=== PATIENT | male | born 1945 | race Caucasian/White ===

== ENCOUNTER → 2017-07-14 | Outpatient (CLI) | payer OTHER, BC ==
[~2017-07-14] MED LIST: ACET-1311 PO; ALBUAER INH; ALPR-411 PO; AMIO200T4 PO; ASPI81TA28 PO; ATOR-24 PO; CEPH500C2 PO; CRG3125 PO; CYAN100T PO; FAMO1TAB47 PO; FLUT1INH7 PO; GABA-112 PO; IPRA0.03; LCHC12280 TOP; LYR50 PO; MIDO5TAB PO; NTRSLP4 SL; PANT40TA PO; PARO1TAB27 PO; PHS667 PO; POLY1POW2 PO; PRLSR20 PO; PRMT25 PO; SACC250C PO; SPRIN/30 INH; SULF800T23 TOP; SYMIN160 INH; TEMA30CA4 PO; TRAM-10 PO; TRAZ100T29 PO
--- NOTE | 2017-07-14 12:56 | DIAGNOSTIC IMAGING REPORT ---
LEFT FOOT MIN 3 VIEWS ROUTINE CLINICAL HISTORY: 72 years-old Male presenting with NON HEALING WOUNDS. TECHNIQUE: Frontal, oblique, and lateral views of the left foot were obtained. COMPARISON: None. FINDINGS: Osteopenia, which limits evaluation for nondisplaced fracture in osseous erosion. No acute fracture or malalignment. No gross evidence of cortical destruction or periosteal reaction. Prominent bone spur at the inferior calcaneus. Atherosclerosis. No subcutaneous emphysema is radiographically apparent. IMPRESSION: No radiographic evidence of osteomyelitis. If there is continuing clinical concern, noncontrast MR of the foot is recommended. Electronically signed by: Mingo Rahman M.D. 07/14/2017 12:55 PM Dictated Date/Time: 07/14/2017 12:53 PM
== END | disposition home or self-care (01) ==
LOC: C.RAD 12:11
PROVIDERS: ATTEND Emergency Medicine
DX: S91.105A Unspecified open wound of left lesser toe(s) without damage to nail, initial encounter (principal); X58.XXXA Exposure to other specified factors, initial encounter

== ENCOUNTER 2017-07-30 15:28 | Inpatient (IN) | payer OTHER, BC ==
[~2017-07-30] VITALS: Ht 188 cm; Wt 84.9 kg
[~2017-07-30 15:28] MED LIST changes: -CRG3125 PO; -FLUT1INH7 PO; -IPRA0.03; -LCHC12280 TOP; -LYR50 PO; -MIDO5TAB PO; -NTRSLP4 SL; -PHS667 PO; -PRLSR20 PO; -SACC250C PO; -SULF800T23 TOP
[2017-07-30] MEDS ORDERED: PHS667 PO (16:17)
[2017-07-30] MEDS ORDERED: SULF800T23 TOP (16:17)
[2017-07-30] MEDS ORDERED: MIDO5TAB PO (16:17)
[2017-07-30] MEDS ORDERED: FLUT1INH7 PO (16:17)
[2017-07-30] MEDS ORDERED: PRLSR20 PO (16:17)
[2017-07-30] MEDS ORDERED: LCHC12280 TOP (16:17)
[2017-07-30] MEDS ORDERED: SACC250C PO (16:17)
[2017-07-30 18:03] LABS: BASO % 0.6 %; BASO ABS # 0.05 K/uL (0-0.2); COMPLETE YES; EOS % 5.2 %; HEMATOCRIT 33.9 % (42-52); IG% 0.1 %; LYMPH % 16.9 %; LYMPH ABS # 1.34 K/uL (1.2-3.4); MEAN CELL VOLUME 94.7 fL (80-100); MEAN CORPUSCULAR HEMOGLOBIN 30.2 pg (25-34); MEAN CORPUSCULAR HGB CONC 31.9 g/dl (32-36); MEAN PLATELET VOLUME 8.4 fL (7.4-10.4); MONO % 13.5 %; NEUT % 63.7 %; PLATELET COUNT 134 K/uL (130-400); RED BLOOD COUNT 3.58 M/uL (4.7-6.1); WHITE BLOOD COUNT 7.94 K/uL (4.8-10.8)
[2017-07-30 18:08] LABS: INR 1.1 (0.9-1.1); PROTHROMBIN TIME (PATIENT) 11.3 SECONDS (9.0-12.0)
--- NOTE | 2017-07-30 18:27 | DIAGNOSTIC IMAGING REPORT ---
ABD/PELVIS NO IV OR ORAL CONT HISTORY: 72 years-old Male upper abdominal pain, nausea and vomiting. Dialysis acute upper abdominal pain with nausea and vomiting with diarrhea. Acute shortness of breath COMPARISON: None available. TECHNIQUE: Multiple axial CT images of the abdomen and pelvis were obtained without contrast. A dose lowering technique was used consistent with the principals of MONIQUE. FINDINGS: Radiodensities in a bronchovascular distribution are noted within the basal left lower lobe suspicious for prior barium aspiration. Radiopacities of the right middle lobe and right lower lobe may reflect postsurgical changes. Small right pleural effusion with bibasilar subpleural reticulation suggesting scarring. Tree-in-bud nodularity of the left lower and right middle lobes suggests bronchiolitis. No pneumoperitoneum. Prior median sternotomy. Imaged inferior cardiac chambers are enlarged. Prosthetic mitral valve is noted. Coronary arterial calcifications are seen. There are postsurgical changes of the wendy hepatis noted suggesting prior cholecystectomy. Ill-defined area of low-attenuation within the region of the wendy hepatis is seen, 4.0 x 2.5 cm as seen on image 24 of series 2. Evaluation is limited without the use of contrast. 1.0 cm lesion seen within the posterior right hepatic lobe on image 27 of series 2. Mild intrahepatic biliary ductal dilation is suggested. The spleen and adrenal glands are unremarkable. Moderate diffuse pancreatic atrophy. Used basilar calcifications are seen. Moderate left greater than right renal atrophy is noted with renal vascular calcifications bilaterally. Exophytic 2.5 x 2.3 cm lesion of the posterior aspect inferior pole right kidney is nonspecific however suggests cyst. No definite renal calculi or hydronephrosis. Prostate is enlarged causing mass effect upon the floor of the urinary bladder. Circumferential urinary bladder wall thickening is noted. Fat filled left inguinal hernia. Ectasia of the [place] infrarenal abdominal aorta is noted, 2.5 cm with aortobiiliac stent graft in place. Dilation of the bilateral external iliac arteries measuring up to 2.1 cm on the right. No bulky retroperitoneal adenopathy. No bowel obstruction or focal bowel wall thickening identified. Large stool ball is noted within the rectal vault with moderate stool burden throughout the remainder of the colon. Study is mildly limited secondary to motion artifact. The appendix appears normal. Note is made of diastases recti. Bilateral gynecomastia. The bones are moderately demineralized. Severe multilevel facet arthrosis. Several millimeters anterolisthesis L4 on L5, likely secondary to advanced facet arthropathy. Approximately 40% anterior and central endplate compression of L2 is noted without significant retropulsion. There is irregularity of the superior endplate, likely degenerative. IMPRESSION: 1. Limited study without the use of IV contrast. 2. Prior cholecystectomy. Ill-defined area of low-attenuation within the region of the wendy hepatis as above is nonspecific and may reflect focal scarring or lesion with additional nonspecific 1.0 cm lesion seen within the posterior right hepatic lobe. There is also suggested mild intrahepatic biliary ductal dilation. Correlate with prior imaging. 3. Moderate left greater than right renal atrophy. 4. Moderate stool burden with large stool ball seen within the rectal vault. 5. Compression deformity of L2 is age indeterminate without significant retropulsion identified. 6. Prostamegaly with evidence of chronic bladder outlet obstruction. 7. Additional incidental findings as above. The above report was generated using voice recognition software. It may contain grammatical, syntax or spelling errors. Electronically signed by: Oral Ford M.D. 07/30/2017 6:26 PM Dictated Date/Time: 07/30/2017 6:12 PM
[2017-07-30 18:45] LABS: BUN/CREATININE RATIO 4.7 (10-20); CKMB/CK RATIO 2.6 (0-3.0); CREATININE 5.2 mg/dl (0.60-1.40); MAGNESIUM 2.2 mg/dl (1.8-2.4); POTASSIUM 4.3 mmol/L (3.5-5.1); THYROID STIMULATING HORMONE 5.79 uIu/ml (0.300-4.500)
[2017-07-30] MEDS ORDERED: HYDROmorphone HCL 2 MG TAB PO STA (19:46)
[2017-07-30 22:00] LABS: URINE APPEARANCE CLEAR (CLEAR); URINE BILIRUBIN NEG (NEG); URINE COLOR YELLOW; URINE NITRITE NEG (NEG); URINE PH >= 9.0 (4.5-7.5); URINE SPECIFIC GRAVITY 1.007 (1.000-1.030); UROBILINOGEN NEG (NEG)
[2017-07-30 22:23] LABS: MANUAL MICROSCOPIC REQUIRED? YES; REVIEW REQ? NO; SULFASALICYLIC ACID POS (NEG)
[2017-07-30 22:26] LABS: URINE BACTERIA NEG (NEG); URINE RBC 0-4 /hpf (0-4)
[2017-07-30] MEDS ORDERED: ASPIRIN 81 MG CHEW PO STA (22:50)
[2017-07-31] VITALS (28 sets, daily range): BP systolic 122–193; BP diastolic 76–94; PULSE 70–83; TEMP 36.3–37.4; O2SAT 95–99; Ht 188 cm; Wt 84.9 kg
[2017-07-31] MEDS ORDERED: NITROGLYCERIN OINT 2% 1GM PACKET EXT SCH
[2017-07-31] MEDS ORDERED: TRAMADOL HCL 50 MG TAB PO PRN
[2017-07-31] MEDS ORDERED: MIDODRINE 2.5 MG TAB PO PRN
[2017-07-31] MEDS ORDERED: MAGNESIUM HYDROXIDE SUSP 30 ML UDC PO PRN
[2017-07-31] MEDS ORDERED: MoRPHine SULFATE 2 MG/ML CARP IV PRN
[2017-07-31] MEDS ORDERED: ALUMINUM/MAGNESIUM/SIMETH (MAALOX MAX) 30 ML UDC PO PRN
[2017-07-31] MEDS ORDERED: POLYETHYLENE (MIRALAX) 17 GM PACK PO PRN
[2017-07-31] MEDS ORDERED: ACETAMINOPHEN 325 MG TAB PO PRN
[2017-07-31] MEDS ORDERED: ONDANSETRON INJ 2 MG/ML 2 ML VIAL IV PRN
[2017-07-31] MEDS ORDERED: NITROGLYCERIN 0.4 MG SL PER TAB CHARGE SL PRN
--- NOTE | 2017-07-31 01:37 | History and Physical ---
History & Physical Date & Time of Service: Jul 31, 2017 at 01:26 Chief Complaint: Shortness Of Breath, Nausea, Vomiting Primary Care Physician: Pavel Mcbride D.OConnor History of Present Illness Source: patient, hospital records Patient is a 72-year-old male, multiple comorbidities and fairly comp with past medical history, presents to the emergency department today with chest pain. The patient missed having a generally poor memory. He is also an extremely poor historian and does not elaborate well on details of his complaints. He endorses a number of complaints. Firstly states that he's been having increasing shortness of breath with exertion for the past several days. And today states that he expressed episode of crushing chest pain, but does not radiate to the jaw or arms. He does not recall how long it lasted but states it went away on its own. He also states that it reminded him of his previous MS. He denies any palpitations, syncope or lower extremity edema. Patient also apparently noted to the ED physician that he been experiencing intermittent GI symptoms which include nausea and vomiting, though he did not endorse these when I spoke to him. He currently states that he is not having any abdominal pain. The patient is known to have coronary artery disease and states he has a CABG in the past. He also has end-stage renal disease and receives dialysis Thursday. He stated he follows with Dr. Brambila. The patient is actually no dysuria, and recently moved here approximately 3 weeks ago. Prior to that he was in a rehabilitation hospital near [place] for approximately 8 weeks. Due to concerns for him living alone on his own, he moved to [facility] to live with his sister. At this time the sister is not present in the room I can provide a collateral history on any additional symptoms that the patient is experiencing. In addition the patient has chronic wounds on his second third and fourth toes and left foot. This probably stems from an injury at a rehabilitation facility prior to his note to [place]. He currently is established with wound care locally, puts Bactrim paste on his wounds. Ami artery is noted to have an elevated troponin. Repeat troponin also confirm this. EKG was unremarkable. However given the fact we do not have any baseline cardiac enzymes on the patient the decision was made to admit the patient for cardiac enzyme monitoring overnight. Past Medical/Surgical History Medical Problems: (1) AAA (abdominal aortic aneurysm) Status: Resolved (2) Anxiety Status: Chronic (3) Atrial fibrillation Status: Resolved (4) Chronic GERD Status: Chronic (5) Dialysis patient Status: Chronic Surgical Problems: (1) S/P AAA repair Status: Resolved (2) S/P ablation of atrial fibrillation Status: Resolved (3) S/P CABG x 2 Status: Resolved (4) S/P cholecystectomy Status: Resolved (5) S/P femoral-popliteal bypass surgery Status: Resolved (6) S/P MVR (mitral valve repair) Status: Resolved Family History Patient reports no known family medical history. Social History Smoking Status: Former Smoker Smokeless Tobacco Use: No Alcohol Use: none Drug Use: none Marital Status: Occupational Status: retired Immunizations History of Influenza Vaccine: Unknown History of Tetanus Vaccine?: Unknown History of Pneumococcal: Unknown History of Hepatitis B Vaccine: Unknown Multi-Drug Resistant Organisms History of MDRO: No Allergies Coded Allergies: Oxycodone (Verified Adverse Reaction, Severe, DELIRIUM, 07/30/17) Home Medications Scheduled Albuterol Sulfate (Proventil Hfa), 2 PUFF INH Q 6H Alprazolam (Xanax), 0.25 MG PO HS Amiodarone Hcl (Cordarone), 200 MG PO every other day Aspirin (Aspirin Ec), 81 MG PO DAILY Atorvastatin (Lipitor), 1 TAB PO DAILY Calcium Acetate (Phoslo 667 Mg), 1 TAB PO WM Carvedilol (Carvedilol), 3.125 MG PO BID Cyanocobalamin (Vitamin B-12), 100 MCG PO 3XWK Famotidine (Famotidine), 20 MG PO DAILY Fluticasone Furoate-Vilanterol (Breo Ellipta 200-25 Mcg/INH), 1 INHA PO DAILY Lactic Acid (Ammonium Lactate Cream 12%), 1 APPLN TOP Q12 Midodrine (Midodrine HCl), 5 MG PO UD Omeprazole (Prilosec), 20 MG PO DAILY Paroxetine (Paxil), 20 MG PO QHS Pregabalin (Lyrica), 50 MG PO HS Saccharomyces Boulardii (Florastor), 1 CAP PO BID Sulfa/Trimethoprim (Bactrim Ds 800MG/160MG), 1 TAB TOP BID Temazepam (Restoril), 30 MG PO HS Tiotropium [place] (Spiriva [place]er), 1 CAP INH DAILY Trazodone Hcl (Trazodone), 100 MG PO QHS Scheduled PRN Acetaminophen (Tylenol), 650 MG PO Q6H PRN for Pain or Fever Nitroglycerin (Nitrostat), 0.4 MG SL UD PRN for Chest Pain Tramadol (Ultram), 1 TAB PO BID PRN for Pain Review of Systems A 10 point review of systems was negative unless stated above. Physical Exam Vital Signs Date Time Temp Pulse Resp B/P (MAP) Pulse Ox O2 Delivery O2 Flow Rate FiO2 07/30/17 23:24 90 20 174/80 94 Room Air 07/30/17 22:26 87 99 07/30/17 22:11 82 96 07/30/17 22:01 200/103 07/30/17 21:56 89 22 98 07/30/17 21:41 24 07/30/17 21:31 176/95 07/30/17 21:26 77 17 97 07/30/17 21:11 76 14 99 07/30/17 21:06 77 11 98 07/30/17 21:01 177/89 07/30/17 20:51 74 15 99 07/30/17 20:36 74 20 98 07/30/17 20:31 171/86 07/30/17 20:21 73 20 98 07/30/17 20:06 76 14 99 07/30/17 20:01 186/95 07/30/17 19:50 76 17 100 07/30/17 19:35 74 22 98 07/30/17 19:31 178/89 07/30/17 19:20 76 19 97 07/30/17 19:05 74 16 99 07/30/17 19:00 161/74 07/30/17 18:50 74 97 07/30/17 18:45 77 99 07/30/17 18:40 75 18 170/80 98 Room Air 07/30/17 16:53 68 07/30/17 16:47 97 Room Air 07/30/17 15:31 36.8 93 18 191/98 94 Room Air General Appearance: WD/WN, no apparent distress Head: normocephalic, atraumatic Eyes: normal inspection, EOMI ENT: hearing grossly normal, pharynx normal Neck: supple, no adenopathy, no JVD Respiratory/Chest: lungs clear, no respiratory distress Cardiovascular: regular rate, rhythm, no gallop, no murmur Abdomen/GI: normal bowel sounds, non tender, soft Extremities/Musculoskelatal: no calf tenderness, no pedal edema, + pertinent finding (related skin and superficial wounds of left toes 2, 3 and 4. 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) Diagnostics Laboratory Results Results Past 24 Hours Test 07/30/17 17:50 07/30/17 17:51 07/30/17 19:45 07/30/17 21:40 Range/Units Prothrombin Time 11.3 9.0-12.0 SECONDS Prothromb Time International Ratio 1.1 0.9-1.1 Activated Partial Thromboplast Time 26.5 21.0-31.0 SECONDS Partial Thromboplastin Ratio 1.0 Sodium Level 137 136-145 mmol/L Potassium Level 4.3 3.5-5.1 mmol/L Chloride Level 102 98-107 mmol/L Carbon Dioxide Level 27 21-32 mmol/L Anion Gap 8.0 3-11 mmol/L Blood Urea Nitrogen 24 7-18 mg/dl Creatinine 5.20 0.60-1.40 mg/dl Est Creatinine Clear Calc Drug Dose 14.9 ml/min Estimated GFR () 11.8 Estimated GFR (Non- 10.2 BUN/Creatinine Ratio 4.7 10-20 Random Glucose 74 70-99 mg/dl Calcium Level 9.0 8.5-10.1 mg/dl Magnesium Level 2.2 1.8-2.4 mg/dl Total Bilirubin 0.5 0.2-1 mg/dl Direct Bilirubin 0.2 0-0.2 mg/dl Aspartate Amino Transf (AST/SGOT) 9 15-37 U/L Alanine Aminotransferase (ALT/SGPT) 12 12-78 U/L Alkaline Phosphatase 120 45-117 U/L Total Creatine Kinase 35 39-308 U/L Creatine Kinase MB 0.9 0.5-3.6 ng/ml Creatine Kinase MB Ratio 2.6 0-3.0 Troponin I 0.046 0.049 0-0.045 ng/ml Total Protein 6.1 6.4-8.2 gm/dl Albumin 2.9 3.4-5.0 gm/dl Lipase 139 73-393 U/L Thyroid Stimulating Hormone (TSH) 5.790 0.300-4.500 uIu/ml White Blood Count 7.94 4.8-10.8 K/uL Red Blood Count 3.58 4.7-6.1 M/uL Hemoglobin 10.8 14.0-18.0 g/dL Hematocrit 33.9 42-52 % Mean Corpuscular Volume 94.7 80-100 fL Mean Corpuscular Hemoglobin 30.2 25-34 pg Mean Corpuscular Hemoglobin Concent 31.9 32-36 g/dl Platelet Count 134 130-400 K/uL Mean Platelet Volume 8.4 7.4-10.4 fL Neutrophils (%) (Auto) 63.7 % Lymphocytes (%) (Auto) 16.9 % Monocytes (%) (Auto) 13.5 % Eosinophils (%) (Auto) 5.2 % Basophils (%) (Auto) 0.6 % Neutrophils # (Auto) 5.06 1.4-6.5 K/uL Lymphocytes # (Auto) 1.34 1.2-3.4 K/uL Monocytes # (Auto) 1.07 0.11-0.59 K/uL Eosinophils # (Auto) 0.41 0-0.5 K/uL Basophils # (Auto) 0.05 0-0.2 K/uL RDW Standard Deviation 48.9 36.4-46.3 fL RDW Coefficient of Variation 14.2 11.5-14.5 % Immature Granulocyte % (Auto) 0.1 % Immature Granulocyte # (Auto) 0.01 0.00-0.02 K/uL Urine Color YELLOW Urine Appearance CLEAR CLEAR Urine pH >= 9.0 4.5-7.5 Urine Specific [place] 1.007 1.000-1.030 Urine Protein 1+ NEG Urine Glucose (UA) NEG NEG Urine Ketones NEG NEG Urine Occult Blood NEG NEG Urine Nitrite NEG NEG Urine Bilirubin NEG NEG Urine Urobilinogen NEG NEG Urine Leukocyte Esterase SMALL NEG Urine WBC (Auto) 0-5 /hpf Urine RBC (Auto) 0-4 /hpf Urine Hyaline Casts (Auto) 0-5 /lpf Urine Epithelial Cells (Auto) 0-5 /lpf Urine Bacteria (Auto) NEG Urine RBC 0-4 0-4 /hpf Urine WBC 10-30 0-5 /hpf Urine Epithelial Cells 5-10 0-5 /lpf Urine Bacteria NEG NEG Microbiology Results 07/30/17 Urine Culture, Received Pending Diagnostic Radiology ABD/PELVIS NO IV OR ORAL CONT HISTORY: 72 years-old Male upper abdominal pain, nausea and vomiting. Dialysis acute upper abdominal pain with nausea and vomiting with diarrhea. Acute shortness of breath COMPARISON: None available. TECHNIQUE: Multiple axial CT images of the abdomen and pelvis were obtained without contrast. A dose lowering technique was used consistent with the principals of MONIQUE. FINDINGS: Radiodensities in a bronchovascular distribution are noted within the basal left lower lobe suspicious for prior barium aspiration. Radiopacities of the right middle lobe and right lower lobe may reflect postsurgical changes. Small right pleural effusion with bibasilar subpleural reticulation suggesting scarring. Tree-in-bud nodularity of the left lower and right middle lobes suggests bronchiolitis. No pneumoperitoneum. Prior median sternotomy. Imaged inferior cardiac chambers are enlarged. Prosthetic mitral valve is noted. Coronary arterial calcifications are seen. There are postsurgical changes of the wendy hepatis noted suggesting prior cholecystectomy. Ill-defined area of low-attenuation within the region of the wendy hepatis is seen, 4.0 x 2.5 cm as seen on image 24 of series 2. Evaluation is limited without the use of contrast. 1.0 cm lesion seen within the posterior right hepatic lobe on image 27 of series 2. Mild intrahepatic biliary ductal dilation is suggested. The spleen and adrenal glands are unremarkable. Moderate diffuse pancreatic atrophy. Used basilar calcifications are seen. Moderate left greater than right renal atrophy is noted with renal vascular calcifications bilaterally. Exophytic 2.5 x 2.3 cm lesion of the posterior aspect inferior pole right kidney is nonspecific however suggests cyst. No definite renal calculi or hydronephrosis. Prostate is enlarged causing mass effect upon the floor of the urinary bladder. Circumferential urinary bladder wall thickening is noted. Fat filled left inguinal hernia. Ectasia of the [place] infrarenal abdominal aorta is noted, 2.5 cm with aortobiiliac stent graft in place. Dilation of the bilateral external iliac arteries measuring up to 2.1 cm on the right. No bulky retroperitoneal adenopathy. No bowel obstruction or focal bowel wall thickening identified. Large stool ball is noted within the rectal vault with moderate stool burden throughout the remainder of the colon. Study is mildly limited secondary to motion artifact. The appendix appears normal. Note is made of diastases recti. Bilateral gynecomastia. The bones are moderately demineralized. Severe multilevel facet arthrosis. Several millimeters anterolisthesis L4 on L5, likely secondary to advanced facet arthropathy. Approximately 40% anterior and central endplate compression of L2 is noted without significant retropulsion. There is irregularity of the superior endplate, likely degenerative. IMPRESSION: 1. Limited study without the use of IV contrast. 2. Prior cholecystectomy. Ill-defined area of low-attenuation within the region of the wendy hepatis as above is nonspecific and may reflect focal scarring or lesion with additional nonspecific 1.0 cm lesion seen within the posterior right hepatic lobe. There is also suggested mild intrahepatic biliary ductal dilation. Correlate with prior imaging. 3. Moderate left greater than right renal atrophy. 4. Moderate stool burden with large stool ball seen within the rectal vault. 5. Compression deformity of L2 is age indeterminate without significant retropulsion identified. 6. Prostamegaly with evidence of chronic bladder outlet obstruction. 7. Additional incidental findings as above. The above report was generated using voice recognition software. It may contain grammatical, syntax or spelling errors. EKG Sinus rhythm with 1st degree A-V block Otherwise normal ECG No previous ECGs available Confirmed by AIYANA MCLAUGHLIN ([id number]) on 07/30/2017 9:20:17 PM Impression Assessment and Plan 72-year-old male, known coronary disease, end-stage renal disease, peripheral neuropathy, COPD, depression anxiety, and temperature dysfunction who presents to the emergency department with multisystem complaints. He was found in the ED to have elevated troponin 2, which requires further evaluation the setting that he came in rinsing an episode of chest pain. 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 -No ischemic changes noted on EKG - Trend cardiac enzymes q 6 hours - ASA 324 given in ED; Nitro SL PRN; Nitro Paste Topical - Start Heparin Drip - Other confounding etiologies: ESRD with poor troponin clearance - EKG with chest pain - Echocardiogram in the AM - Cardiology consult Coronary artery disease - Continue ASA with 324 mg today - Continue Atorvastatin - Amiodarone (indication for this unclear at this time; will need to be reviewed with sister as patient is poor historian) COPD - Continue Albuterol - Continue Spiriva - No clear evidence of acute COPD exacerbation at this time, though may have accounted for SOB prior to arriva ESRD - Creatinine 5.2 on arrival; baseline is uncertain as his first visit to the emergency department - The patient receives dialysis M, W, F - States he recently established with Dr. Brambila who will be consulted for dialysis recommendations - Continue Phoslo Chronic Left Toes 2-4 Ulceration - Wound Care consultation - The patient reportedly takes Bactrim paced which I do not believe we have here. Anxiety/Depression - Continue Xanax - Continue Temazepam - Continue Paroxetine - Continue Trazodone DVT Prophylaxis - SCD Knee, MARJORIE Hose - Heparin infusion Code Status - Level I Full Code Disposition - Telemetry - OT and PT evaluations Attending Addendum: I have physically seen and examined this patient, have directed the resident's medical activities, and agree with the H&P as noted above with the following exceptions as noted. The patient is awake, alert and oriented 3, well-developed and well-nourished , normocephalic and atraumatic, lying in bed and in no acute distress. HEENT--PERRL, EOMI, mucous membranes and oropharynx dry. Neck--supple, no JVD or bruits, thyroid normal, trachea midline, no adenopathy. Heart--normal S1 and S2, no extra beats, no murmurs, rubs or gallops. Lungs--clear bilaterally with good air movement, no respiratory distress, no accessory muscle use. Abdomen--normal bowel sounds and soft, nontender and nondistended, no hernias or masses, no organomegaly. Extremities--no cyanosis, clubbing or edema. There are good distal pulses b/l. Dermatologic--official skin wounds the left second, third and fourth toes wrapped in dressing. Neurologic--cranial nerves II through XII grossly intact. Rheumatologic--normal range of motion, nontender, muscles and joints. Psychiatric--normal affect. Assessment and Plan: CAD/hypertension/precordial chest pain with elevated troponin-- The patient will be admitted to telemetry for serial cardiac enzymes, cardiac rhythm monitoring and a 2-D echocardiogram with Dopplers. Continue daily aspirin. Start heparin drip. Nitropaste 1 inch to the ACW every 6 hours. Continue amiodarone. Consult cardiology. End-stage renal disease on hemodialysis on Thursday, Thursday and Thursday-- Consult Dr. Brambila. COPD-- Continue albuterol, Spiriva. Level of Care Telemetry Resuscitation Status FULL RESUSCITATION VTE Prophylaxis VTE Risk Assessment Done? Y/N: Yes Risk Level: Moderate Given or contraindicated: SCD's
--- NOTE | 2017-07-31 01:54 | EMERGENCY ROOM VISIT NOTE ---
History Report prepared by Jose Antonio: Mauricio Gomez Under the Supervision of: Dr. Jurgen Alas M.D. First contact with patient: 16:14 Chief Complaint: NAUSEA Stated Complaint: SHORTNESS OF BREATH, NAUSEA, VOMITING History of Present Illness The patient is a 72 year old male who presents to the Emergency Room with complaints of constant nausea beginning this morning. The patient states he has been experiencing central abdominal pain since yesterday. He reports this morning he developed nausea, vomiting, and shortness of breath. He states he was experiencing his abdominal pain when these symptoms began. The patient notes he believes it is from his medication. He states he is able to produce 120cc of urine since he receives dialysis. Pt denies LOC, headache, fevers, chills, diaphoresis, visual changes, neck pain, chest pain, back pain, melena, hematochezia, urinary symptoms, numbness, weakness, lymphadenopathy, rash, or other complaints. The patient's sister states she thinks he is having a reaction to Tramadol. She reports the patient was taken to a residential facility after his recent cholecystectomy. The sister notes while he was in the facility, he had an accident that removed the skin to several toes on his left foot. She states he was seen by a adolescent specialist and was told to use a Bactrim paste. The sister reports he was prescribed 50 Tramadol by his PCP, but it was not strong enough to alleviate his pain. She notes the patient just moved here because he is not able to go up the stairs at his home. The sister states he saw his new PCP two days ago, and he was going to increase the patient's amount of Tramadol. She reports the patient was placed on Keflex, and it seemed to help his burning discomfort. The sister notes the patient cannot go to the wound center. Source of History: patient Onset: this morning Position: other (global) Quality: other (nausea) Timing: constant Associated Symptoms: + SOB, + vomiting, + abdominal pain Review of Systems See HPI for pertinent positives and negatives. A total of ten systems were reviewed and were otherwise negative. Past Medical & Surgical Medical Problems: (1) AAA (abdominal aortic aneurysm) (2) Anxiety (3) Atrial fibrillation (4) Chest pain (5) Chronic GERD (6) Dialysis patient (7) Elevated troponin Surgical Problems: (1) S/P AAA repair (2) S/P ablation of atrial fibrillation (3) S/P CABG x 2 (4) S/P cholecystectomy (5) S/P femoral-popliteal bypass surgery (6) S/P MVR (mitral valve repair) Family History Patient reports no known family medical history. Social History Smoking Status: Former Smoker Marital Status: Occupation Status: retired Current/Historical Medications Scheduled Albuterol Sulfate (Proventil Hfa), 2 PUFF INH Q 6H Alprazolam (Xanax), 0.25 MG PO HS Amiodarone Hcl (Cordarone), 200 MG PO every other day Aspirin (Aspirin Ec), 81 MG PO DAILY Atorvastatin (Lipitor), 1 TAB PO DAILY Calcium Acetate (Phoslo 667 Mg), 1 TAB PO WM Cyanocobalamin (Vitamin B-12), 100 MCG PO 3XWK Famotidine (Famotidine), 20 MG PO DAILY Fluticasone Furoate-Vilanterol (Breo Ellipta 200-25 Mcg/INH), 1 INHA PO DAILY Lactic Acid (Ammonium Lactate Cream 12%), 1 APPLN TOP Q12 Midodrine Hcl (Midodrine Hcl), 5 MG PO TID Omeprazole (Prilosec), 20 MG PO DAILY Paroxetine (Paxil), 20 MG PO QHS Saccharomyces Boulardii (Florastor), 1 CAP PO BID Sulfa/Trimethoprim (Bactrim Ds 800MG/160MG), 1 TAB TOP BID Temazepam (Restoril), 30 MG PO HS Tiotropium [place] (Spiriva Handihaler), 1 CAP INH DAILY Trazodone Hcl (Trazodone), 100 MG PO QHS Scheduled PRN Acetaminophen (Tylenol), 650 MG PO Q6H PRN for Pain or Fever Midodrine (Midodrine HCl), 5 MG PO Q 4 H PRN for PRN SBP <110 Tramadol (Ultram), 1 TAB PO BID PRN for Pain Allergies Coded Allergies: Oxycodone (Verified Adverse Reaction, Severe, DELIRIUM, 07/30/17) Physical Exam Vital Signs Date Time Temp Pulse Resp B/P (MAP) Pulse Ox O2 Delivery O2 Flow Rate FiO2 07/31/17 01:20 71 18 169/87 98 Room Air 07/30/17 23:24 90 20 174/80 94 Room Air 07/30/17 22:26 87 99 07/30/17 22:11 82 96 07/30/17 22:01 200/103 07/30/17 21:56 89 22 98 07/30/17 21:41 24 07/30/17 21:31 176/95 07/30/17 21:26 77 17 97 07/30/17 21:11 76 14 99 07/30/17 21:06 77 11 98 07/30/17 21:01 177/89 07/30/17 20:51 74 15 99 07/30/17 20:36 74 20 98 07/30/17 20:31 171/86 07/30/17 20:21 73 20 98 07/30/17 20:06 76 14 99 07/30/17 20:01 186/95 07/30/17 19:50 76 17 100 07/30/17 19:35 74 22 98 07/30/17 19:31 178/89 07/30/17 19:20 76 19 97 07/30/17 19:05 74 16 99 07/30/17 19:00 161/74 07/30/17 18:50 74 97 07/30/17 18:45 77 99 07/30/17 18:40 75 18 170/80 98 Room Air 07/30/17 16:53 68 07/30/17 16:47 97 Room Air 07/30/17 15:31 36.8 93 18 191/98 94 Room Air Physical Exam GENERAL: Awake, alert, well-appearing, in no distress HENT: Normocephalic, atraumatic. Oropharynx unremarkable. EYES: Normal conjunctiva. Sclera non-icteric. NECK: Supple. No nuchal rigidity. FROM. No JVD. RESPIRATORY: Clear to auscultation. CARDIAC: Regular rate, normal rhythm. Extremities warm and well perfused. Pulses equal. ABDOMEN: Soft, non-distended. No tenderness to palpation. No rebound or guarding. Small incisional hernia at the umbilicus. Reducible. Mildly tender to palpation. RECTAL: Deferred. MUSCULOSKELETAL: Chest examination reveals no tenderness. The back is symmetrical on inspection without obvious abnormality. There is no CVA tenderness to palpation. No joint edema. Right arm fistula noted. LOWER EXTREMITIES: Calves are equal size bilaterally and non-tender. No edema. No discoloration. Chronic venous discoloration. NEURO: Normal sensorium. No sensory or motor deficits noted. SKIN: No rash or jaundice noted. Medical Decision & Procedures ER Provider Diagnostic Interpretation: Radiology results as stated below per my review and radiologist interpretation ABD/PELVIS NO IV OR ORAL CONT HISTORY: 72 years-old Male upper abdominal pain, nausea and vomiting. Dialysis acute upper abdominal pain with nausea and vomiting with diarrhea. Acute shortness of breath COMPARISON: None available. TECHNIQUE: Multiple axial CT images of the abdomen and pelvis were obtained without contrast. A dose lowering technique was used consistent with the principals of MONIQUE. FINDINGS: Radiodensities in a bronchovascular distribution are noted within the basal left lower lobe suspicious for prior barium aspiration. Radiopacities of the right middle lobe and right lower lobe may reflect postsurgical changes. Small right pleural effusion with bibasilar subpleural reticulation suggesting scarring. Tree-in-bud nodularity of the left lower and right middle lobes suggests bronchiolitis. No pneumoperitoneum. Prior median sternotomy. Imaged inferior cardiac chambers are enlarged. Prosthetic mitral valve is noted. Coronary arterial calcifications are seen. There are postsurgical changes of the wendy hepatis noted suggesting prior cholecystectomy. Ill-defined area of low-attenuation within the region of the wendy hepatis is seen, 4.0 x 2.5 cm as seen on image 24 of series 2. Evaluation is limited without the use of contrast. 1.0 cm lesion seen within the posterior right hepatic lobe on image 27 of series 2. Mild intrahepatic biliary ductal dilation is suggested. The spleen and adrenal glands are unremarkable. Moderate diffuse pancreatic atrophy. Used basilar calcifications are seen. Moderate left greater than right renal atrophy is noted with renal vascular calcifications bilaterally. Exophytic 2.5 x 2.3 cm lesion of the posterior aspect inferior pole right kidney is nonspecific however suggests cyst. No definite renal calculi or hydronephrosis. Prostate is enlarged causing mass effect upon the floor of the urinary bladder. Circumferential urinary bladder wall thickening is noted. Fat filled left inguinal hernia. Ectasia of the [place] infrarenal abdominal aorta is noted, 2.5 cm with aortobiiliac stent graft in place. Dilation of the bilateral external iliac arteries measuring up to 2.1 cm on the right. No bulky retroperitoneal adenopathy. No bowel obstruction or focal bowel wall thickening identified. Large stool ball is noted within the rectal vault with moderate stool burden throughout the remainder of the colon. Study is mildly limited secondary to motion artifact. The appendix appears normal. Note is made of diastases recti. Bilateral gynecomastia. The bones are moderately demineralized. Severe multilevel facet arthrosis. Several millimeters anterolisthesis L4 on L5, likely secondary to advanced facet arthropathy. Approximately 40% anterior and central endplate compression of L2 is noted without significant retropulsion. There is irregularity of the superior endplate, likely degenerative. IMPRESSION: 1. Limited study without the use of IV contrast. 2. Prior cholecystectomy. Ill-defined area of low-attenuation within the region of the wendy hepatis as above is nonspecific and may reflect focal scarring or lesion with additional nonspecific 1.0 cm lesion seen within the posterior right hepatic lobe. There is also suggested mild intrahepatic biliary ductal dilation. Correlate with prior imaging. 3. Moderate left greater than right renal atrophy. 4. Moderate stool burden with large stool ball seen within the rectal vault. 5. Compression deformity of L2 is age indeterminate without significant retropulsion identified. 6. Prostamegaly with evidence of chronic bladder outlet obstruction. 7. Additional incidental findings as above. The above report was generated using voice recognition software. It may contain grammatical, syntax or spelling errors. Electronically signed by: Oral Ford M.D. 07/30/2017 6:26 PM Dictated Date/Time: 07/30/2017 6:12 PM Laboratory Results 07/30/17 17:51 Red Blood Count 3.58, Mean Corpuscular Volume 94.7, Mean Corpuscular Hemoglobin 30.2, Mean Corpuscular Hemoglobin Concent 31.9, Mean Platelet Volume 8.4, Neutrophils (%) (Auto) 63.7, Lymphocytes (%) (Auto) 16.9, Monocytes (%) (Auto) 13.5, Eosinophils (%) (Auto) 5.2, Basophils (%) (Auto) 0.6, Neutrophils # (Auto ) 5.06, Lymphocytes # (Auto) 1.34, Monocytes # (Auto) 1.07, Eosinophils # (Auto ) 0.41, Basophils # (Auto) 0.05 07/30/17 17:50 Test 07/30/17 17:50 07/30/17 17:51 07/30/17 19:45 10/5/17 21:40 Prothrombin Time 11.3 SECONDS (9.0-12.0) Prothromb Time International Ratio 1.1 (0.9-1.1) Activated Partial Thromboplast Time 26.5 SECONDS (21.0-31.0) Partial Thromboplastin Ratio 1.0 Anion Gap 8.0 mmol/L (3-11) Est Creatinine Clear Calc Drug Dose 14.9 ml/min Estimated GFR () 11.8 Estimated GFR (Non- 10.2 BUN/Creatinine Ratio 4.7 (10-20) Calcium Level 9.0 mg/dl (8.5-10.1) Magnesium Level 2.2 mg/dl (1.8-2.4) Total Bilirubin 0.5 mg/dl (0.2-1) Direct Bilirubin 0.2 mg/dl (0-0.2) Aspartate Amino Transf (AST/SGOT) 9 U/L (15-37) Alanine Aminotransferase (ALT/SGPT) 12 U/L (12-78) Alkaline Phosphatase 120 U/L (45-117) Total Creatine Kinase 35 U/L (39-308) Creatine Kinase MB 0.9 ng/ml (0.5-3.6) Creatine Kinase MB Ratio 2.6 (0-3.0) Total Protein 6.1 gm/dl (6.4-8.2) Albumin 2.9 gm/dl (3.4-5.0) Lipase 139 U/L (73-393) Thyroid Stimulating Hormone (TSH) 5.790 uIu/ml (0.300-4.500) White Blood Count 7.94 K/uL (4.8-10.8) Red Blood Count 3.58 M/uL (4.7-6.1) Hemoglobin 10.8 g/dL (14.0-18.0) Hematocrit 33.9 % (42-52) Mean Corpuscular Volume 94.7 fL (80-100) Mean Corpuscular Hemoglobin 30.2 pg (25-34) Mean Corpuscular Hemoglobin Concent 31.9 g/dl (32-36) Platelet Count 134 K/uL (130-400) Mean Platelet Volume 8.4 fL (7.4-10.4) Neutrophils (%) (Auto) 63.7 % Lymphocytes (%) (Auto) 16.9 % Monocytes (%) (Auto) 13.5 % Eosinophils (%) (Auto) 5.2 % Basophils (%) (Auto) 0.6 % Neutrophils # (Auto) 5.06 K/uL (1.4-6.5) Lymphocytes # (Auto) 1.34 K/uL (1.2-3.4) Monocytes # (Auto) 1.07 K/uL (0.11-0.59) Eosinophils # (Auto) 0.41 K/uL (0-0.5) Basophils # (Auto) 0.05 K/uL (0-0.2) RDW Standard Deviation 48.9 fL (36.4-46.3) RDW Coefficient of Variation 14.2 % (11.5-14.5) Immature Granulocyte % (Auto) 0.1 % Immature Granulocyte # (Auto) 0.01 K/uL (0.00-0.02) Troponin I 0.049 ng/ml (0-0.045) Urine Color YELLOW Urine Appearance CLEAR (CLEAR) Urine pH >= 9.0 (4.5-7.5) Urine Specific [place] 1.007 (1.000-1.030) Urine Protein 1+ (NEG) Urine Glucose (UA) NEG (NEG) Urine Ketones NEG (NEG) Urine Occult Blood NEG (NEG) Urine Nitrite NEG (NEG) Urine Bilirubin NEG (NEG) Urine Urobilinogen NEG (NEG) Urine Leukocyte Esterase SMALL (NEG) Urine WBC (Auto) /hpf (0-5) Urine RBC (Auto) /hpf (0-4) Urine Hyaline Casts (Auto) /lpf (0-5) Urine Epithelial Cells (Auto) /lpf (0-5) Urine Bacteria (Auto) (NEG) Urine RBC 0-4 /hpf (0-4) Urine WBC 10-30 /hpf (0-5) Urine Epithelial Cells 5-10 /lpf (0-5) Urine Bacteria NEG (NEG) Laboratory results reviewed by me Medications Administered Medications (Trade) Dose Ordered Sig/Merari Route Start Time Stop Time Status Last Admin Dose Admin Hydromorphone HCl (Dilaudid Tab) 1 mg NOW STAT PO 07/30/17 19:46 07/30/17 19:48 DC 07/30/17 19:54 1 MG Aspirin (Aspirin Chew) 324 mg NOW STAT PO 07/30/17 22:50 07/30/17 22:51 DC 07/30/17 23:21 324 MG ECG Rate (beats per minute): 71 Rhythm: sinus rhythm Findings: no acute ischemic change, no ectopy ED Course 1621: The patient was evaluated in room C09. A complete history and physical exam was performed. 1936: I reevaluated the patient. He is feeling better. I told him we are repeating his troponin level. 1945: Ordered Hydromorphone HCl 1mg PO 2124: Upon reexamination, the patient was resting and feeling better. I discussed the test results and treatment plan with him. The patient will be evaluated for further management. 2134: I discussed the patient's case with Dr. Hardin, [facility] Hospitalist. The patient will be evaluated for further treatment and care. Medical Decision Triage Nursing notes reviewed. The patient's presentation and history were concerning for nausea and abdominal discomfort. Etiologies such as obstruction, appendicitis, diverticulitis, inflammatory bowel disease, renal colic, PUD, biliary pathology, pancreatitis, mesenteric ischemia, aortic pathology, infections, genitourinary, UTI, perforated viscus, as well as others were entertained. Patient was evaluated. Physical examination he was found small reducible hernia at the site of prior umbilical trocar site. He noted that his was in the area of pain but it is feeling much better at this time. Remainder of his abdominal examination is benign. The patient has an extensive medical history. Blood work and imaging was ordered. Urinalysis ordered however the patient only makes a small amount of urine daily. The patient has an unremarkable CBC. The patient had an elevated creatinine consistent with his end-stage renal disease. However his troponin was noted to be elevated. ECG did not reveal anything acute. A repeat troponin was performed and was slightly elevated. The patient was treated with aspirin. 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 He was given 1 mg of oral Dilaudid, one half tablet. He felt better with this. I did discuss this with cardiology, Dr. Seaman, who recommended additional evaluation due to the trending troponin. The patient will need further evaluation and management in the hospital. I discussed case with the hospitalist service. The patient was evaluated for further management. Medication Reconcilliation Current Medication List: was personally reviewed by me Blood Pressure Screening Patient's blood pressure: Elevated blood pressure Blood pressure disposition: Referred to PCP Consults Time Called: 2124 Consulting Physician: Dr. Hardin [facility] Hospitalist Returned Call: 2134 I discussed the patient's case with Dr. Hardin [facility] Hospitalist. The patient will be evaluated for further treatment and care. Impression Primary Impression: Nausea Additional Impression: Elevated troponin I level Scribe Attestation The scribe's documentation has been prepared under my direction and personally reviewed by me in its entirety. I confirm that the note above accurately reflects all work, treatment, procedures, and medical decision making performed by me. Departure Information Dispostion Being Evaluated By Hospitalist Referrals No Doctor, Assigned (PCP) Patient Instructions My [facility] Problem Qualifiers
[2017-07-31] MEDS ORDERED: HEPARIN IV BOLUS 7,000 UNIT in SYRINGE 0 ML IV STA (03:03)
[2017-07-31] MEDS: ALBUTEROL HFA 8 GM INHALER INH SCH ×5 (03:12→20:15)
[2017-07-31] MEDS ORDERED: HEPARIN 25,000 UNIT/500ML D5W 500 ML IV PRN (03:15)
[2017-07-31] MEDS: NITROGLYCERIN OINT 2% 1GM PACKET EXT SCH ×4 (03:18→20:24)
[2017-07-31] MEDS ORDERED: ALPRAZOLAM 0.25 MG TAB PO SCH ×2 (04:30→21:00)
[2017-07-31] MEDS ORDERED: HEPARIN SOD (PORCINE) 1000 UNIT/ML 10 ML VIAL IV SCH (08:00)
[2017-07-31] MEDS: ATORVASTATIN 20 MG TAB PO SCH (08:07)
[2017-07-31] MEDS: FAMOTIDINE 20 MG TAB PO SCH (08:07)
[2017-07-31] MEDS: SACCHAROMYCES BOUL (FLORASTOR) 250 MG CAP PO SCH ×2 (08:08→20:23)
[2017-07-31] MEDS: CALCIUM ACETATE 667MG GELCAP PO SCH ×3 (08:08→16:15)
[2017-07-31] MEDS: ASPIRIN 81 MG ECTAB PO SCH (08:08)
[2017-07-31] MEDS: TIOTROPIUM BROMIDE 5 PUFF/90 MCG INH INH SCH (08:09)
[2017-07-31] MEDS: PANTOprazole SOD 40 MG TAB PO SCH (08:09)
[2017-07-31] MEDS: MIDODRINE 2.5 MG TAB PO SCH ×3 (08:10→16:00)
[2017-07-31] MEDS ORDERED: AMIODARONE 200 MG TAB PO SCH (09:00)
[2017-07-31] MEDS ORDERED: CYANOCOBALAMIN 100 MCG TAB (VIT B-12) PO SCH (09:00)
[2017-07-31 10:02] LABS: BASO % 0.7 %; BASO ABS # 0.06 K/uL (0-0.2); COMPLETE YES; EOS % 6.5 %; HEMATOCRIT 34.1 % (42-52); IG% 0.2 %; LYMPH % 13.7 %; LYMPH ABS # 1.19 K/uL (1.2-3.4); MEAN CORPUSCULAR HEMOGLOBIN 30.6 pg (25-34); MEAN CORPUSCULAR HGB CONC 32.3 g/dl (32-36); MEAN PLATELET VOLUME 8.7 fL (7.4-10.4); NEUT % 67.9 %; PLATELET COUNT 145 K/uL (130-400); RED BLOOD COUNT 3.59 M/uL (4.7-6.1); WHITE BLOOD COUNT 8.71 K/uL (4.8-10.8)
--- NOTE | 2017-07-31 10:14 | DIAGNOSTIC IMAGING REPORT ---
CHEST ONE VIEW PORTABLE CLINICAL HISTORY: Chest pain. COMPARISON STUDY: No previous studies for comparison. FINDINGS: There are median sternotomy wires. Moderate cardiomegaly is noted. There is pulmonary vascular congestion without evidence for overt pulmonary edema. A trace right pleural effusion is noted. There is no consolidation to suggest pneumonia. IMPRESSION: 1. Pulmonary congestion without overt pulmonary edema. 2. Moderate cardiomegaly. 3. Trace right pleural effusion. Electronically signed by: Frank Lombardo M.D. 07/31/2017 10:13 AM Dictated Date/Time: 07/31/2017 10:10 AM
[2017-07-31 10:15] LABS: PARTIAL THROMBOPLASTIN RATIO 2.5
[2017-07-31] MEDS: ACETAMINOPHEN 325 MG TAB PO PRN ×3 (10:20→22:05)
[2017-07-31 10:27] LABS: BUN/CREATININE RATIO 4.3 (10-20); CREATININE 6.4 mg/dl (0.60-1.40); POTASSIUM 4.4 mmol/L (3.5-5.1)
--- NOTE | 2017-07-31 10:50 | Cardiology Consultation ---
Cardiology Consultation Date of Consultation: Jul 31, 2017. Requesting Physician: Dr. Hardin Attending Physician: Dr. Araujo Reason for Consultation: Chest pain, elevated troponin Pt evaluation today including: conversation w/ patient, physical exam, chart review, lab review, review of studies, review of inpatient medication list, conversation w/ attending History of Present Illness Mr. Perdue is a 72-year-old male with a complex past medical history including CAD S/P CABG and PCI, atrial fibrillation/flutter, hypertension, dyslipidemia, TORRIE, ESRD on hemodialysis, COPD, and chronic lower extremity wounds who presented to the ED yesterday with complaints of progressive shortness of breath. He is a very poor historian, therefore, a detailed history is difficult to obtain. He reports that he has had chronic exertional dyspnea for many years , but it has been worsening over the last few weeks. He has associated chest discomfort where he feels as though he was "hit with a baseball bat" in his chest along with the shortness of breath. The chest discomfort is non- radiating. He also notes associated diaphoresis and occasional nausea. He is unsure as to how long his symptoms last. He notes occasional orthopnea and PND. He denies lower extremity edema. He denies lightheadedness, dizziness, syncope, or presyncope. He notes a history of palpitations, but they have resolved with his current medical therapy. He denies abnormal bleeding such as melena, hematochezia, or hematuria. He denies cerebrovascular symptoms. Review of Systems: As noted in HPI. All other 10 point ROS otherwise negative. Past Medical/Surgical History 1. Coronary artery disease S/P CABG and intracoronary stenting (RCA stent 2015) 2. Atrial fibrillation/flutter - on amiodarone every other day. Reportedly not anticoagulated due to medical noncompliance and frequent falls 3. Hypertension 4. Hyperlipidemia 5. Obstructive sleep apnea - on CPAP 6. End Stage Renal Disease - hemodialysis M/W/F 7. COPD 8. S/P Mitral valve repair 9. S/P Lig div&stripping short saphenous vein 10. Hx of subdural hematoma 2005 11. S/P Femoral-popliteal bypass 12. S/P Pulmonary vein isolation with perforated coronary sinus at the time of the PVI 13. S/P AAA repair 14. S/P Cholecystectomy 04/2017 15. S/P Bilateral total knee arthroplasties 16. Chronic wounds on third and fourth toes and left foot 17. GERD Family History Patient reports no known family medical history. Father with CAD in early to mid 50's. Social History Smoking Status: Former Smoker History of Alcohol Use: No He is a . He has 1 daughter and 4 grandchildren. He recently moved to the area 3 weeks ago to live with his sister. He previously lived in the [place] area. He denies smoking, alcohol, or illicit drug use. Allergies Coded Allergies: Oxycodone (Verified Adverse Reaction, Severe, DELIRIUM, 07/30/17) Medications Current Inpatient Medications Medications (Trade) Dose Ordered Sig/Merari Route Start Time Stop Time Status Last Admin Dose Admin Al Hydrox/Mg Hydrox/Simethicone (Maalox Max Susp) 15 ml Q4H PRN PO 07/31/17 00:00 08/30/17 00:00 Magnesium Hydroxide (Milk Of Magnesia Susp) 30 ml Q12H PRN PO 07/31/17 00:00 08/30/17 00:00 Ondansetron HCl (Zofran Inj) 4 mg Q6H PRN IV 07/31/17 00:00 08/30/17 00:00 Nitroglycerin (Nitrostat Tab) 0.4 mg UD PRN SL 07/31/17 00:00 08/30/17 00:00 Morphine Sulfate (MoRPHine SULFATE INJ) 2 mg Q30M PRN IV 07/31/17 00:00 08/14/17 00:00 Aspirin (Ecotrin Tab) 81 mg QAM PO 07/31/17 09:00 08/30/17 08:59 07/31/17 08:08 81 MG Polyethylene (Miralax Powder Packet) 17 gm DAILY PRN PO 07/31/17 00:00 08/30/17 00:00 Acetaminophen (Tylenol Tab) 650 mg Q6H PRN PO 07/31/17 00:00 08/30/17 00:00 Albuterol (Ventolin Hfa Inhaler) 2 puffs Q4H INH 07/31/17 04:00 08/30/17 03:59 07/31/17 08:11 2 PUFFS Alprazolam (Xanax Tab) 0.25 mg HS PO 07/31/17 21:00 08/30/17 20:59 Atorvastatin Calcium (Lipitor Tab) 40 mg DAILY PO 07/31/17 09:00 08/30/17 08:59 07/31/17 08:07 40 MG Calcium Acetate (Phoslo Cap) 667 mg AC PO 07/31/17 07:00 08/30/17 07:59 07/31/17 08:08 667 MG Cyanocobalamin (Vitamin B-12 Tab) 100 mcg MoWeFr@0900 PO 07/31/17 09:00 08/30/17 08:59 07/31/17 08:09 100 MCG Famotidine (Pepcid Tab) 20 mg DAILY PO 07/31/17 09:00 08/30/17 08:59 07/31/17 08:07 20 MG Midodrine (Proamatine Tab) 5 mg Q4H PRN PO 07/31/17 00:00 08/30/17 00:00 Paroxetine HCl (pAXil TAB) 20 mg HS PO 07/31/17 21:00 08/30/17 20:59 Saccharomyces Boulardii (Florastor Cap) 250 mg BID PO 07/31/17 09:00 08/30/17 08:59 07/31/17 08:08 250 MG Temazepam (Restoril Cap) 30 mg HS PO 07/31/17 21:00 08/30/17 20:59 Tiotropium [place] (Spiriva Handihaler Inhaler) 1 puff DAILY INH 07/31/17 09:00 08/30/17 08:59 07/31/17 08:09 1 PUFF Tramadol HCl (Ultram Tab) 50 mg BID PRN PO 07/31/17 00:00 08/30/17 00:00 07/31/17 03:29 50 MG Trazodone HCl (Desyrel Tab) 100 mg HS PO 07/31/17 21:00 08/30/17 20:59 Miscellaneous Information (Order Awaiting Action) 1 ea QS N/A 07/31/17 08:00 08/30/17 07:59 Midodrine (Proamatine Tab) 5 mg TID@0800,1200,1600 PO 07/31/17 08:00 08/30/17 07:59 07/31/17 08:10 5 MG Pantoprazole Sodium (Protonix Tab) 40 mg DAILY PO 07/31/17 09:00 08/30/17 08:59 07/31/17 08:09 40 MG Amiodarone HCl (Cordarone Tab) 200 mg Q2D PO 07/31/17 09:00 08/30/17 08:59 07/31/17 08:08 200 MG Nitroglycerin (Nitroglycerin 2% Oint) 1 inch Q6H EXT 07/31/17 02:00 08/30/17 01:59 07/31/17 03:18 1 INCH Heparin Sodium/ Dextrose 500 ml @ 30 mls/hr [id number] PRN IV 07/31/17 03:15 08/30/17 03:14 07/31/17 03:24 30 MLS/HR Heparin Sodium (Porcine) (Heparin Iv Bolus) 1,000 unit 0800 IV 07/31/17 08:00 07/31/17 12:00 Heparin Sodium (Porcine) (Heparin Iv Bolus) 400 unit Q1H IV 07/31/17 08:00 07/31/17 10:01 Carvedilol (Coreg Tab) 3.125 mg BID PO 07/31/17 09:00 08/30/17 08:59 UNV Physical Exam Vital Signs Past 12 Hours Date Time Temp Pulse Resp B/P (MAP) Pulse Ox O2 Delivery O2 Flow Rate FiO2 07/31/17 08:00 36.4 70 18 163/76 (105) 95 Room Air 07/31/17 04:00 96 Room Air 07/31/17 03:57 73 18 178/82 (114) 96 Room Air 07/31/17 02:20 36.3 83 20 193/91 99 Room Air 07/31/17 01:20 71 18 169/87 98 Room Air 07/30/17 23:24 90 20 174/80 94 Room Air 07/30/17 22:26 87 99 07/30/17 22:11 82 96 07/30/17 22:01 200/103 07/30/17 21:56 89 22 98 07/30/17 21:41 24 07/30/17 21:31 176/95 07/30/17 21:26 77 17 97 Constitutional: Alert, oriented, in no acute distress HEENT: Head is atraumatic and normocephalic. EOMs intact. Sclera anicteric. Face is symmetric. No perioral cyanosis. Mucous membranes moist. Neck: Supple, no appreciable JVD, no carotid bruits Pulmonary: Normal respiratory effort, bibasilar crackles Cardiac: Regular rate and rhythm, normal S1 and S2, no gallops, no rubs, 1/6 basal systolic murmur,1/6 apical systolic murmur Extremities: No edema, clubbing, or cyanosis. Pulses intact Abdomen: Normal bowel sounds, soft, non-tender, no abdominal mass palpated Skin: Chronic venous stasis skin changes of bilateral lower extremities. Superficial wounds of left toes are wrapped. Neurological: Oriented to person, place, and time Data Laboratory Results: Last 24 Hours Test 07/30/17 17:50 07/30/17 17:51 07/30/17 19:45 07/30/17 21:40 Prothrombin Time 11.3 SECONDS Prothromb Time International Ratio 1.1 Activated Partial Thromboplast Time 26.5 SECONDS Partial Thromboplastin Ratio 1.0 Sodium Level 137 mmol/L Potassium Level 4.3 mmol/L Chloride Level 102 mmol/L Carbon Dioxide Level 27 mmol/L Anion Gap 8.0 mmol/L Blood Urea Nitrogen 24 mg/dl Creatinine 5.20 mg/dl Est Creatinine Clear Calc Drug Dose 14.9 ml/min Estimated GFR () 11.8 Estimated GFR (Non- 10.2 BUN/Creatinine Ratio 4.7 Random Glucose 74 mg/dl Calcium Level 9.0 mg/dl Magnesium Level 2.2 mg/dl Total Bilirubin 0.5 mg/dl Direct Bilirubin 0.2 mg/dl Aspartate Amino Transf (AST/SGOT) 9 U/L Alanine Aminotransferase (ALT/SGPT) 12 U/L Alkaline Phosphatase 120 U/L Total Creatine Kinase 35 U/L Creatine Kinase MB 0.9 ng/ml Creatine Kinase MB Ratio 2.6 Troponin I 0.046 ng/ml 0.049 ng/ml Total Protein 6.1 gm/dl Albumin 2.9 gm/dl Lipase 139 U/L Thyroid Stimulating Hormone (TSH) 5.790 uIu/ml White Blood Count 7.94 K/uL Red Blood Count 3.58 M/uL Hemoglobin 10.8 g/dL Hematocrit 33.9 % Mean Corpuscular Volume 94.7 fL Mean Corpuscular Hemoglobin 30.2 pg Mean Corpuscular Hemoglobin Concent 31.9 g/dl Platelet Count 134 K/uL Mean Platelet Volume 8.4 fL Neutrophils (%) (Auto) 63.7 % Lymphocytes (%) (Auto) 16.9 % Monocytes (%) (Auto) 13.5 % Eosinophils (%) (Auto) 5.2 % Basophils (%) (Auto) 0.6 % Neutrophils # (Auto) 5.06 K/uL Lymphocytes # (Auto) 1.34 K/uL Monocytes # (Auto) 1.07 K/uL Eosinophils # (Auto) 0.41 K/uL Basophils # (Auto) 0.05 K/uL RDW Standard Deviation 48.9 fL RDW Coefficient of Variation 14.2 % Immature Granulocyte % (Auto) 0.1 % Immature Granulocyte # (Auto) 0.01 K/uL Urine Color YELLOW Urine Appearance CLEAR Urine pH >= 9.0 Urine Specific [place] 1.007 Urine Protein 1+ Urine Glucose (UA) NEG Urine Ketones NEG Urine Occult Blood NEG Urine Nitrite NEG Urine Bilirubin NEG Urine Urobilinogen NEG Urine Leukocyte Esterase SMALL Urine WBC (Auto) /hpf Urine RBC (Auto) /hpf Urine Hyaline Casts (Auto) /lpf Urine Epithelial Cells (Auto) /lpf Urine Bacteria (Auto) Urine RBC 0-4 /hpf Urine WBC 10-30 /hpf Urine Epithelial Cells 5-10 /lpf Urine Bacteria NEG Test 07/31/17 04:44 07/31/17 08:44 EKG 07/30/17: Sinus rhythm with first degree AV block. No acute ST-T wave abnormality. QT/QTc 434/471 ms EKG 07/31/17: Sinus rhythm with first degree AV block. No acute ST-T wave abnormality. QT/QTc 424/483 ms Telemetry reviewed: Sinus rhythm with first degree AV block. Occasional PVCs. Assessment & Plan ASSESSMENT: Patient is a 72-year-old with a complex past medical history including CAD S/P CABG and PCI, atrial fibrillation/flutter (no anticoagulation given hx of medical noncompliance and frequent falls), hypertension, dyslipidemia, TORRIE on CPAP, ESRD on hemodialysis, COPD, and chronic lower extremity wounds. He notes progressive exertional dyspnea and chest pain over the last few weeks. His symptoms are likely multifactorial. He did just recently move to the area, therefore, some of his symptoms could be related to a change in his dialysis regimen as well as a change in his diet. He is also rather hypertensive and is currently on midodrine for an unknown reason. He was also not on any antianginal medications prior to arrival. He has no evidence of ACS. His minimal troponin elevation is non-diagnostic of myocardial injury, and the minimal elevation is likely chronic given his chronic renal disease. EKG shows no acute ischemic changes. PLAN: 1. Discontinue Midodrine and monitor for hypotension and orthostatic symptoms while off the medication. 2. Agree with the initiation of carvedilol at 3.125 mg BID. The medication can be further titrated as tolerated in the future. 3. Since there is no evidence of ACS, there is no urgent indication for cardiac catheterization at this time, and his heparin drip can be discontinued, but recommend DVT prophylaxis as per protocol. 4. Continue amiodarone as prescribed. 5. Continue Lipitor as prescribed. 6. Continue aspirin as prescribed. 7. Continue Hemodialysis for volume management. 8. Echocardiogram pending. Patient was discussed with Dr. Araujo, and the plan was made in collaboration with him. The patient was seen and examined by me in conjunction with . The above assessment and plan were discussed with her. I agree of history as reported above. At the time my exam his lungs had cleared. This was suggest that the rales heard earlier in the day had been secondary to atelectasis. I saw and examined the patient just as he was starting hemodialysis. His jugular venous pressure was normal. On exam there was no evidence of volume overload. When the patient was asked why he was on midodrine he stated that the physician who prescribed it when it is blood pressure to be stable throughout the day. The patient states he has been on this medication for 2 months. His symptoms of dyspnea started approximately 1 month ago. The symptoms are usually with exertion. He does not have any orthopnea or PND. His labs, electrocardiogram, and echocardiogram were all reviewed by me. Troponin I are mildly elevated. This would not be unexpected in a patient with chronic kidney disease. Electrocardiogram reveals no acute ischemic changes. Echocardiogram shows low normal LV systolic function, severe LVH, class 2 left ventricular diastolic dysfunction, mild right ventricular systolic dysfunction, biatrial dilatation, mild pulmonic regurgitation, trace aortic regurgitation, trace tricuspid regurgitation, and trace mitral regurgitation. There is no evidence of elevated right heart or central venous pressures on the echo. Suspect that the patient's symptoms are related to his hypertension. His blood pressure is significantly elevated. He is on midodrine. The midodrine is contributing to the hypertension. This is in the presence of severe LVH and diastolic dysfunction. With exertion is blood pressure is likely even higher than that at rest. At rest he has had systolic pressures on this admission greater than 200. Based on this would strongly recommended he be taken off of midodrine. Agree with initiation of carvedilol. Monitor blood pressures off of midodrine. As there is no evidence of an acute coronary process would not perform any further cardiac evaluation at this time. Thank you for asking us to see this patient in Cardiology consultation. Glynn Araujo MD
[2017-07-31] MEDS: HEPARIN SOD (PORCINE) 1000 UNIT/ML 10 ML VIAL IV SCH ×2 (12:15→16:20)
[2017-07-31 12:19] LABS: HEPATITIS B AB POS
--- NOTE | 2017-07-31 14:31 | ECHOCARDIOGRAM REPORT ---
*NOTICE TO RECEIVING [employer] This information is strictly Confidential and protected under [place] law. [place] law prohibits you from making any further disclosure of this information unless further disclosure is expressly permitted by the written consent of the person to whom it pertains or is authorized by law. A general authorization for the release of medical or other information is not sufficient for this purpose. Hospital accepts no responsibility if the information is made available to any other person, INCLUDING THE PATIENT. Interpretation Summary * Name: RAMA AYERS Study Date: 07/31/2017 06:47 AM BP: 178/82 mmHg * Patient Location: C.2T\S\S240\S\2 HR: 73 * : 1945 (M/d/yyyy) Gender: Male * Age: 72 yrs Ethnicity: CA Weight: 188 lb * Ordering Physician: Stefan Means * Referring Physician: Pavel Mcbride D.O. * Performed By: Yecenia Mcbride * * Reason For Study: CHEST PAIN * Low normal overall left ventricular systolic function. * Severe concentric left ventricle hypertrophy. * Class 2 left ventricular diastolic dysfunction. * Moderate left atrial and mild right atrial dilatation. Normal right ventricular size. Mildly reduced overall right ventricular systolic function. * Aortic valve sclerosis. No aortic stenosis. * Trace aortic regurgitation. * Mild pulmonic regurgitation. * Trace mitral and tricuspid regurgitation. * Normal estimated central venous and right ventricular systolic pressures. Procedure Details * A complete two-dimensional transthoracic echocardiogram was performed (2D, M-mode, Doppler and color flow Doppler). Left Ventricle * The left ventricle is normal in size. * There is severe concentric left ventricular hypertrophy. * Ejection Fraction = 50-55%. * Left ventricular systolic function is low normal. * A full diastolic examination was done with clinical findings of Class II diastolic dysfunction. * No regional wall motion abnormalities noted. Right Ventricle * The right ventricle is normal size. * The right ventricular systolic function is reduced as assessed by tricuspid annular plane systolic excursion (TAPSE) (TAPSE <1.6 cm). * The right ventricular systolic function is mildly reduced. Atria * The left atrium is moderately dilated. * The right atrium is mild to moderately dilated. * No ASD detected; PFO is not assessed. Mitral Valve * There is moderate mitral annular calcification. * Calcified mitral apparatus. * There is no mitral valve stenosis. * There is trace mitral regurgitation. Tricuspid Valve * The tricuspid valve is not well visualized, but is grossly normal. * There is no tricuspid stenosis. * There is trace tricuspid regurgitation. * Right ventricular systolic pressure is normal. Aortic Valve * The aortic valve is trileaflet. * The aortic valve opens well. * Aortic stenosis is absent. * Aortic valve area was calculated at 3.2 cm\S\2 using the continuity equation. * Trace aortic regurgitation. Pulmonic Valve * The pulmonic valve is not well visualized. * The pulmonary valve is inadequately visualized, but the Doppler data is adequate for interpretation. * There is no pulmonic valvular stenosis. * Mild pulmonic valvular regurgitation. Great Vessels * There is aortic root sclerosis/calcification. * Borderline aortic root dilatation. * Mildly dilated ascending aorta. Pericardium/Pleural * There is no pericardial effusion. Great Vessels * Normal inferior vena cava diameter and respiratory variation suggests normal central venous pressure. MMode 2D Measurements and Calculations IVSd 2.0 cm IVSs 2.2 cm LVIDd 5.0 cm LVIDs 3.6 cm LVPWd 1.9 cm LVPWs 2.0 cm IVS/LVPW 1.0 FS 27.7 % EDV(Teich) 116.8 ml ESV(Teich) 54.2 ml EF(Teich) 53.6 % EDV(cubed) 123.0 ml ESV(cubed) 46.4 ml EF(cubed) 62.3 % % IVS thick 14.7 % % LVPW thick 4.5 % LV mass(C)d 470.3 grams LV mass(C)s 359.7 grams SV(Teich) 62.6 ml SV(cubed) 76.6 ml Ao root diam 3.9 cm Ao root area 11.7 cm\S\2 ACS 0.87 cm LA dimension 5.0 cm asc Aorta Diam 4.2 cm LA/Ao 1.3 LVOT diam 2.4 cm LVOT area 4.4 cm\S\2 LVAd ap4 43.0 cm\S\2 LVLd ap4 9.6 cm EDV(MOD-sp4) 158.2 ml EDV(sp4-el) 164.3 ml LVAs ap4 26.3 cm\S\2 LVLs ap4 7.9 cm ESV(MOD-sp4) 72.6 ml ESV(sp4-el) 74.2 ml EF(MOD-sp4) 54.1 % EF(sp4-el) 54.8 % LVAd ap2 46.7 cm\S\2 LVLd ap2 9.7 cm EDV(MOD-sp2) 181.2 ml EDV(sp2-el) 191.8 ml LVAs ap2 28.8 cm\S\2 LVLs ap2 8.3 cm ESV(MOD-sp2) 84.3 ml ESV(sp2-el) 84.8 ml EF(MOD-sp2) 53.5 % EF(sp2-el) 55.8 % LVLd %diff 1.0 % EDV(MOD-bp) 171.3 ml LVLs %diff 4.8 % ESV(MOD-bp) 78.9 ml EF(MOD-bp) 54.0 % SV(MOD-sp4) 85.6 ml SV(MOD-sp2) 96.9 ml SV(MOD-bp) 92.4 ml SV(sp4-el) 90.1 ml SV(sp2-el) 107.0 ml Doppler Measurements and Calculations MV E max rosemary 168.8 cm/sec MV A max rosemary 111.6 cm/sec MV E/A 1.5 MV dec time 0.21 sec Ao V2 max 150.7 cm/sec Ao max PG 9.1 mmHg Ao max PG (full) 4.2 mmHg SOFIA(V,A) 3.2 cm\S\2 SOFIA(V,D) 3.2 cm\S\2 AI max rosemary 326.0 cm/sec AI max PG 42.5 mmHg AI dec slope 162.7 cm/sec\S\2 AI P1/2t 586.9 msec LV V1 max PG 4.9 mmHg LV V1 max 110.6 cm/sec MR max rosemary 385.5 cm/sec MR max PG 60.1 mmHg PA V2 max 67.4 cm/sec PA max PG 1.8 mmHg PI end-d rosemary 34.5 cm/sec TR max rosemary 229.5 cm/sec
[2017-07-31] MEDS: CARVEDILOL 3.125 MG TAB PO SCH ×2 (16:03→21:00)
--- NOTE | 2017-07-31 19:05 | Progress Note ---
Subjective Date of Service: Jul 31, 2017. Subjective Pt evaluation today including: conversation w/ patient, conversation w/ family , physical exam, chart review, lab review, conversation w/ client support consultant, review of inpatient medication list only complaint for me is foot pain sister present later and notes that his main problem has been foot pain - pain management apparently does not feel he would be appropriate since it's related a wound which will hopefully heal. she notes that his chest pain actaully seemed to be ultram at higher dose not sitting well no further chest pain no sob Problem List Medical Problems: (1) Elevated troponin I level Status: Acute (2) Nausea Status: Acute Review of Systems all other ROS otherwise negative except for as above Objective Vital Signs Date Time Temp Pulse Resp B/P (MAP) Pulse Ox O2 Delivery O2 Flow Rate FiO2 07/31/17 17:37 Room Air 07/31/17 17:11 163/80 (107) 07/31/17 17:07 37.4 77 18 172/81 (111) 96 Room Air 07/31/17 16:33 36.6 78 18 98 07/31/17 16:00 36.6 78 18 164/76 (105) 98 Room Air 07/31/17 16:00 36.7 79 143/93 (110) 07/31/17 15:15 82 171/90 07/31/17 15:00 80 162/82 07/31/17 14:45 79 168/88 07/31/17 14:30 78 156/83 07/31/17 14:15 73 145/88 07/31/17 14:00 76 163/86 07/31/17 13:45 79 154/85 07/31/17 13:30 75 165/88 07/31/17 13:15 79 164/89 07/31/17 13:00 74 150/87 07/31/17 12:45 79 122/83 07/31/17 12:30 76 162/85 07/31/17 12:15 77 149/81 07/31/17 12:00 36.8 72 16 166/80 (108) 97 Room Air 07/31/17 12:00 71 139/80 07/31/17 11:45 72 169/92 07/31/17 11:30 73 177/94 07/31/17 11:23 71 171/94 07/31/17 11:20 37.0 76 166/91 (116) 07/31/17 08:00 36.4 70 18 163/76 (105) 95 Room Air 07/31/17 08:00 Room Air 07/31/17 04:00 96 Room Air 07/31/17 03:57 73 18 178/82 (114) 96 Room Air 07/31/17 02:20 36.3 83 20 193/91 99 Room Air 07/31/17 01:20 71 18 169/87 98 Room Air 07/30/17 23:24 90 20 174/80 94 Room Air 07/30/17 22:26 87 99 07/30/17 22:11 82 96 07/30/17 22:01 200/103 07/30/17 21:56 89 22 98 07/30/17 21:41 24 07/30/17 21:31 176/95 07/30/17 21:26 77 17 97 07/30/17 21:11 76 14 99 07/30/17 21:06 77 11 98 07/30/17 21:01 177/89 07/30/17 20:51 74 15 99 07/30/17 20:36 74 20 98 07/30/17 20:31 171/86 07/30/17 20:21 73 20 98 07/30/17 20:06 76 14 99 07/30/17 20:01 186/95 07/30/17 19:50 76 17 100 07/30/17 19:35 74 22 98 07/30/17 19:31 178/89 07/30/17 19:20 76 19 97 07/30/17 19:05 74 16 99 Physical Exam General Appearance: no apparent distress Eyes: EOMI ENT: hearing grossly normal Neck: trachea midline Respiratory/Chest: no respiratory distress, no accessory muscle use Extremities: normal range of motion 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, alert, normal mood/affect Skin: normal color, warm/dry Laboratory Results Last 24 Hours Test 07/30/17 19:45 07/30/17 21:40 07/31/17 09:43 07/31/17 10:53 Troponin I 0.049 ng/ml Urine Color YELLOW Urine Appearance CLEAR Urine pH >= 9.0 Urine Specific [place] 1.007 Urine Protein 1+ Urine Glucose (UA) NEG Urine Ketones NEG Urine Occult Blood NEG Urine Nitrite NEG Urine Bilirubin NEG Urine Urobilinogen NEG Urine Leukocyte Esterase SMALL Urine WBC (Auto) /hpf Urine RBC (Auto) /hpf Urine Hyaline Casts (Auto) /lpf Urine Epithelial Cells (Auto) /lpf Urine Bacteria (Auto) Urine RBC 0-4 /hpf Urine WBC 10-30 /hpf Urine Epithelial Cells 5-10 /lpf Urine Bacteria NEG White Blood Count 8.71 K/uL Red Blood Count 3.59 M/uL Hemoglobin 11.0 g/dL Hematocrit 34.1 % Mean Corpuscular Volume 95.0 fL Mean Corpuscular Hemoglobin 30.6 pg Mean Corpuscular Hemoglobin Concent 32.3 g/dl Platelet Count 145 K/uL Mean Platelet Volume 8.7 fL Neutrophils (%) (Auto) 67.9 % Lymphocytes (%) (Auto) 13.7 % Monocytes (%) (Auto) 11.0 % Eosinophils (%) (Auto) 6.5 % Basophils (%) (Auto) 0.7 % Neutrophils # (Auto) 5.91 K/uL Lymphocytes # (Auto) 1.19 K/uL Monocytes # (Auto) 0.96 K/uL Eosinophils # (Auto) 0.57 K/uL Basophils # (Auto) 0.06 K/uL RDW Standard Deviation 48.6 fL RDW Coefficient of Variation 14.0 % Immature Granulocyte % (Auto) 0.2 % Immature Granulocyte # (Auto) 0.02 K/uL Activated Partial Thromboplast Time 66.0 SECONDS Partial Thromboplastin Ratio 2.5 Sodium Level 137 mmol/L Potassium Level 4.4 mmol/L Chloride Level 104 mmol/L Carbon Dioxide Level 25 mmol/L Anion Gap 9.0 mmol/L Blood Urea Nitrogen 28 mg/dl Creatinine 6.40 mg/dl Est Creatinine Clear Calc Drug Dose 12.1 ml/min Estimated GFR () 9.2 Estimated GFR (Non- 7.9 BUN/Creatinine Ratio 4.3 Random Glucose 95 mg/dl Calcium Level 9.0 mg/dl Hepatitis B Surface Antigen NEG Hepatitis B Surface Antibody POS Assessment and Plan Chest Pain UROLOGIC NURSE with Elevated Troponin -appears CAD is chronic - possibly had a single episode of angina, but troponin not trending up - suspect baselien elevation from CAD and ESRD, and based on sister's HPI,also quite plausible that pain was actually GI related from meds -med management Foot pain -sounds more neuropathic. she notes that he slept "22 hours" with gabapentin. d/w nephrology - seems unlikely to be dose/HD related. will stop, trial of pregabalin. Coronary artery disease - med management, add coreg at low dose - send home w prn nitrates COPD - Continue Albuterol - Continue Spiriva - No clear evidence of acute COPD exacerbation at this time, continue to follow ESRD - ongoing HD - midodrine seems related to low BP related to this, but with high BP, CP and CAD - would like to refrain from midodrine when/if possible Chronic Left Toes 2-4 Ulceration - Wound Care consultation - The patient reportedly takes Bactrim paced which I do not believe we have here. Anxiety/Depression - Continue Xanax - Continue Temazepam - Continue Paroxetine - Continue Trazodone DVT Prophylaxis - SCD Knee, MARJORIE Hose - Heparin SQ Code Status - Level I Full Code Disposition - medsurg - OT and PT evaluations - anticipate home w sister
[2017-07-31] MEDS ORDERED: PAROXETINE 20 MG TAB PO SCH (21:00)
[2017-07-31] MEDS ORDERED: TRAZODONE HCL 100 MG TAB PO SCH (21:00)
[2017-07-31] MEDS ORDERED: PREGABALIN 50 MG CAP PO SCH (21:00)
[2017-07-31] MEDS ORDERED: TEMAZEPAM 15 MG CAP PO SCH (21:00)
[2017-08-01] MEDS: ALBUTEROL HFA 8 GM INHALER INH SCH ×3 (02:06→08:31)
[2017-08-01] MEDS: NITROGLYCERIN OINT 2% 1GM PACKET EXT SCH ×2 (02:07→08:31)
[2017-08-01] MEDS: CALCIUM ACETATE 667MG GELCAP PO SCH ×3 (06:03→06:30)
[2017-08-01 07:28] VITALS: BP 155/80; PULSE 64; TEMP 36.6; O2SAT 98
[2017-08-01] MEDS: TIOTROPIUM BROMIDE 5 PUFF/90 MCG INH INH SCH (08:31)
[2017-08-01] MEDS: FAMOTIDINE 20 MG TAB PO SCH (08:32)
[2017-08-01] MEDS: SACCHAROMYCES BOUL (FLORASTOR) 250 MG CAP PO SCH (08:32)
[2017-08-01] MEDS: PANTOprazole SOD 40 MG TAB PO SCH (08:32)
[2017-08-01] MEDS: CARVEDILOL 3.125 MG TAB PO SCH (08:32)
[2017-08-01] MEDS: ASPIRIN 81 MG ECTAB PO SCH (08:32)
[2017-08-01] MEDS: ATORVASTATIN 20 MG TAB PO SCH (08:32)
[2017-08-01] MEDS ORDERED: PRMT25 PO (10:38)
[2017-08-01] MEDS ORDERED: LYR50 PO (10:38)
[2017-08-01] MEDS ORDERED: CRG3125 PO (10:38)
[2017-08-01] MEDS ORDERED: NTRSLP4 SL (10:38)
--- NOTE | 2017-08-01 10:49 | Discharge Instructions ---
Discharge Instructions Date of Service Aug 01, 2017. Admission Reason for Admission: Chest Pain, Elevated Troponin Discharge Discharge Diagnosis / Problem: chest pain - see below Discharge Goals Goal(s): Diagnostic testing, Therapeutic intervention Activity Recommendations Activity Limitations: resume your previous activity . Instructions / Follow-Up Instructions / Follow-Up chest pain -fortunately it was quite clear that nothing acute was going on with your heart (no evidence of a true heart attack, etc) -the elevated troponin level appears most consistent with your prior heart disease creating a small amount of troponin that leaks out, and with being a dialysis patient, troponin is a protein that we normally get rid of through kidneys, so you simply won't clear it as well as a normal person would. we did not see any spiking elevations or anything worrisome - just a low grade elevation that stayed basically the same at each check -what is more difficult to discern is if the chest pain was a stable angina attack (see below) based on your known coronary disease, or more likely, if it was more gastrointestinal related pain as side effect to pain medications coronary artery disease -we do believe we can help your heart more managing the coronary disease a bit more aggressively -we've written a prescription for nitroglycerin to use under the tongue as needed for angina-type chest pain -if you have chest pain that might be heart related (either you remember that it feels like your heart, or you're not sure and feel like it's better to be safe) then take a nitro under your tongue. if the pain has not gone in 5 minutes, take a second. if the pain has not gone after the second, then take a third. if the pain does not immediately go away with the third nitro, then it's time to chew an aspirin and call 911 -we've also started coreg (carvedilol) to take strain off your heart. it is in a class called beta blockers, which relax the heart muscle and are typically quite protective against future heart attacks. because of your possible dropping blood pressure with dialysis (see below) we've started at the lowest dose - 3.125mg twice a day. over time, if you're tolerating it well and not having dropping blood pressures, Dr Mcbride will work with you to slowly increase the dose dialysis/dropping blood pressures -we fortunately did not see any evidence of dropping blood pressure when you were here, and your numbers stayed elevated even in spite of us starting the coreg -because obviously bringing pressures down more would be helpful for your heart , our goal is to get you to the lowest possible dose of midodrine (or none, if possible) that we can -because you don't recall feeling faint/lightheaded when you have lower blood pressures, we'll have to do this slowly with a lot of blood pressure readings to guide us -for now, keep the same midodrine regimen you've been doing: a dose in the morning every day, and a dose before dialysis -to gather information, check a blood pressure at least once a day on non- dialysis days, and check before and after dialysis on dialysis days -- in addition to that, write down your lowest blood pressure reading they see during dialysis -as things move forward, if Dr Mcbride and Kosta are not seeing worrisome readings, we'll likely first be able to get rid of the midodrine on non- dialysis days, possible followed next by the AM dosing on dialysis days, followed last (if possible) by the right- before-dialysis dosing foot pain -the gabapentin was an excellent idea, but the sleepiness it caused is obviously unacceptable. -we changed to a "cousin" medicine - pregabalin - that at least last night/ today sat quite well with you -it takes a while for the medication to "kick in" but we'll start at 50mg at bedtime, Dr Mcbride / Kosta can slowly increase the dose if needed to try to attain better pain control Current Hospital Diet Patient's current hospital diet: Renal Diet, AHA Diet (Heart Healthy) Discharge Diet Recommended Diet: AHA Diet (Heart Healthy), Renal Diet Pending Studies Studies pending at discharge: no Medical Emergencies . Who to Call and When: Medical Emergencies: If at any time you feel your situation is an emergency, please call 911 immediately. . Non-Emergent Contact Non-Emergency issues call your: Primary Care Provider (we're working on getting you in with Dr Mcbride for next week. if you haven't heard from his office by mid afternoon thursday, please call [phone], our account administrator for our group will answer, and she will be able to set things in motion to figure out what they've been able to arrange), Buckle Coverer . . "Provider Documentation" section prepared by Jake Osuna. . VTE Core Measure Inpt VTE Proph given/why not?: Unfractionated heparin SQ (was actually on heparin drip for a portion of his stay)
[2017-08-01 10:52] VITALS: BP 155/80; PULSE 64; TEMP 36.6; O2SAT 98
--- NOTE | 2017-08-01 19:47 | Discharge Summary ---
Discharge Summary Date of Service Aug 01, 2017. Discharge Summary Admission Date: Jul 31, 2017 at 00:00 Discharge Date: Aug 01, 2017 Discharge Disposition: Home Principal Diagnosis: chest pain, ESRD Immunizations: Have You Had Influenza Vaccine: Unknown History of Tetanus Vaccine?: Unknown History of Pneumococcal: Unknown History of Hepatitis B Vaccine: Unknown Procedures: Interpretation Summary * Name: RAMA AYERS Study Date: 07/31/2017 06:47 AM BP: 178/82 mmHg * Patient Location: 2T\\S\\S240\\S\\2 HR: 73 * : 1945 (M/d/yyyy) Gender: Male * Age: 72 yrs Ethnicity: [place] Weight: 188 lb * Ordering Physician: Stefan Means * Referring Physician: Pavel Mcbride D.O. * Performed By: Yecenia Mcbride * * Reason For Study: CHEST PAIN * Low normal overall left ventricular systolic function. * Severe concentric left ventricle hypertrophy. * Class 2 left ventricular diastolic dysfunction. * Moderate left atrial and mild right atrial dilatation. Normal right ventricular size. Mildly reduced overall right ventricular systolic function. * Aortic valve sclerosis. No aortic stenosis. * Trace aortic regurgitation. * Mild pulmonic regurgitation. * Trace mitral and tricuspid regurgitation. * Normal estimated central venous and right ventricular systolic pressures. Procedure Details * A complete two-dimensional transthoracic echocardiogram was performed (2D, M- mode, Doppler and color flow Doppler). Left Ventricle * The left ventricle is normal in size. * There is severe concentric left ventricular hypertrophy. * Ejection Fraction = 50-55%. * Left ventricular systolic function is low normal. * A full diastolic examination was done with clinical findings of Class II diastolic dysfunction. * No regional wall motion abnormalities noted. Right Ventricle * The right ventricle is normal size. * The right ventricular systolic function is reduced as assessed by tricuspid annular plane systolic excursion (TAPSE) (TAPSE <1.6 cm). * The right ventricular systolic function is mildly reduced. Atria * The left atrium is moderately dilated. * The right atrium is mild to moderately dilated. * No ASD detected; PFO is not assessed. Mitral Valve * There is moderate mitral annular calcification. * Calcified mitral apparatus. * There is no mitral valve stenosis. * There is trace mitral regurgitation. Tricuspid Valve * The tricuspid valve is not well visualized, but is grossly normal. * There is no tricuspid stenosis. * There is trace tricuspid regurgitation. * Right ventricular systolic pressure is normal. Aortic Valve * The aortic valve is trileaflet. * The aortic valve opens well. * Aortic stenosis is absent. * Aortic valve area was calculated at 3.2 cm\\S\\2 using the continuity equation. * Trace aortic regurgitation. Pulmonic Valve * The pulmonic valve is not well visualized. * The pulmonary valve is inadequately visualized, but the Doppler data is adequate for interpretation. * There is no pulmonic valvular stenosis. * Mild pulmonic valvular regurgitation. Great Vessels * There is aortic root sclerosis/calcification. * Borderline aortic root dilatation. * Mildly dilated ascending aorta. Pericardium/Pleural * There is no pericardial effusion. Great Vessels * Normal inferior vena cava diameter and respiratory variation suggests normal central venous pressure. Last Resulted CBC 07/31/17 09:43 Red Blood Count 3.59, Mean Corpuscular Volume 95.0, Mean Corpuscular Hemoglobin 30.6, Mean Corpuscular Hemoglobin Concent 32.3, Mean Platelet Volume 8.7, Neutrophils (%) (Auto) 67.9, Lymphocytes (%) (Auto) 13.7, Monocytes (%) (Auto) 11.0, Eosinophils (%) (Auto) 6.5, Basophils (%) (Auto) 0.7, Neutrophils # (Auto ) 5.91, Lymphocytes # (Auto) 1.19, Monocytes # (Auto) 0.96, Eosinophils # (Auto ) 0.57, Basophils # (Auto) 0.06 Last Resulted BMP 07/31/17 09:43 Medication Reconciliation New Medications: Carvedilol (Carvedilol) 3.125 Mg Tab 3.125 MG PO BID, #60 TAB Nitroglycerin (Nitrostat) 0.4 Mg/1 Tab Subl 0.4 MG SL UD PRN for Chest Pain, #30 TAB Pregabalin (Lyrica) 50 Mg Cap 50 MG PO HS, #30 CAP Changed Medications: Midodrine (Midodrine HCl) 2.5 Mg Tab 5 MG PO UD, #1 (Changed from: Q 4 H; Removed Reason) take daily in the AM; on dialysis days take a second dose prior to dialysis Continued Medications: Acetaminophen (Tylenol) 325 Mg Tab 650 MG PO Q6H PRN for Pain or Fever, TAB Albuterol Sulfate (Proventil Hfa) 108 Mcg/Act Aer 2 PUFF INH Q 6H Alprazolam (Xanax) 0.5 Mg Tab 0.25 MG PO HS, TAB Amiodarone Hcl (Cordarone) 200 Mg Tab 200 MG PO every other day, TAB Aspirin (Aspirin Ec) 81 Mg Tab 81 MG PO DAILY Atorvastatin (Lipitor) 40 Mg Tab 1 TAB PO DAILY for 90 Days, #90 TAB 1 Refill Calcium Acetate (Phoslo 667 Mg) 667 Mg Cap 1 TAB PO WM, CAP Cyanocobalamin (Vitamin B-12) 100 Mcg Tab 100 MCG PO 3XWK, TAB TUES, THURS, SAT Famotidine (Famotidine) 20 Mg Tab 20 MG PO DAILY Fluticasone Furoate-Vilanterol (Breo Ellipta 200-25 Mcg/INH) 1 Inh Inh 1 INHA PO DAILY Lactic Acid (Ammonium Lactate Cream 12%) 280 Gm Cr 1 APPLN TOP Q12 Omeprazole (Prilosec) 20 Mg Capcr 20 MG PO DAILY, CAP Paroxetine (Paxil) 20 Mg Tab 20 MG PO QHS, TAB Saccharomyces Boulardii (Florastor) 250 Mg Cap 1 CAP PO BID Sulfa/Trimethoprim (Bactrim Ds 800MG/160MG) Tab 1 TAB TOP BID, #6 TAB CLEAN TOES WITH SOAP & WATER, CRUSH BACTRIM DS & SPRINKLE OVER WOUNDS, COVER WITH TELFA AND CLING Temazepam (Restoril) 30 Mg Cap 30 MG PO HS, CAP Tiotropium [place] (Spiriva Handihaler) 30 Puff/540 Mcg Aerp 1 CAP INH DAILY for 30 Days, #30 CAP 3 Refills Tramadol (Ultram) 50 Mg Tab 1 TAB PO BID PRN for Pain for 30 Days, #60 TAB Trazodone Hcl (Trazodone) 100 Mg Tab 100 MG PO QHS, TAB Discontinued Medications: Midodrine Hcl (Midodrine Hcl) 5 Mg Tab 5 MG PO TID Discharge Exam Physical Exam: General Appearance: no apparent distress Eyes: EOMI ENT: hearing grossly normal Neck: trachea midline Respiratory/Chest: no respiratory distress, no accessory muscle use 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 she notes that he slept "22 hours" with gabapentin. d/w nephrology - seems unlikely to be dose/HD related. will stop, trial of pregabalin (50mg HS, titrate as/if possible). Coronary artery disease - med management, added coreg at low dose - send home w prn nitrates COPD - Continue Albuterol - Continue Spiriva - No clear evidence of acute COPD exacerbation at this time, continue to follow ESRD - ongoing HD - midodrine seems related to low BP related to this, but with high BP, CP and CAD - would like to refrain from midodrine when/if possible -- see instructions as given to pt - will be following his BP closely (at least daily on nonHD days , and pre/post HD as well as writing down his lowest during HD BP on HD days) Chronic Left Toes 2-4 Ulceration - ongoing wound follow up Anxiety/Depression - Continue Xanax - Continue Temazepam - Continue Paroxetine - Continue Trazodone DVT Prophylaxis - SCD Knee, MARJORIE Hose - Heparin SQ utilized while here Code Status - Level I Full Code Disposition - stable for home - PCP this week - ongoing f/u w nephrology - ongoing wound care Total Time Spent: Greater than 30 minutes This includes examination of the patient, discharge planning, medication reconciliation, and communication with other providers. Discharge Instructions Please refer to the electronic Patient Visit Report (Discharge Instructions) for additional information.
== END 2017-08-01 11:22 | disposition home or self-care (01) | DRG 313 ==
LOC: C.EDB 15:29 → C.2T 07-31 → ENRESERV 07-31 01:19 → C.MS2W 07-31 16:56
PROVIDERS: ADMIT Student in an Organized Health Care Education/Training Program; ATTEND Family Medicine
DX: R07.9 Chest pain, unspecified (principal); N18.6 End stage renal disease; I12.0 Hypertensive chronic kidney disease with stage 5 chronic kidney disease or end stage renal disease; R79.89 Other specified abnormal findings of blood chemistry; I25.10 Atherosclerotic heart disease of native coronary artery without angina pectoris; Z95.1 Presence of aortocoronary bypass graft; Z99.2 Dependence on renal dialysis; G62.9 Polyneuropathy, unspecified; J44.9 Chronic obstructive pulmonary disease, unspecified; L97.529 Non-pressure chronic ulcer of other part of left foot with unspecified severity; Z82.49 Family history of ischemic heart disease and other diseases of the circulatory system; E78.5 Hyperlipidemia, unspecified; G47.33 Obstructive sleep apnea (adult) (pediatric); F32.9 Major depressive disorder, single episode, unspecified; F41.9 Anxiety disorder, unspecified; Z87.891 Personal history of nicotine dependence; Z79.82 Long term (current) use of aspirin

== ENCOUNTER → 2017-09-10 | Outpatient (CLI) | payer OTHER, BC ==
[~2017-09-10] MED LIST changes: -CEPH500C2 PO; +CRG3125 PO; +FLUT1INH7 PO; -GABA-112 PO; +LCHC12280 TOP; +LYR50 PO; +NTRSLP4 SL; -PANT40TA PO; +PHS667 PO; -POLY1POW2 PO; +PRLSR20 PO; +SACC250C PO; -SYMIN160 INH
[2017-09-10 19:08] LABS: BLOOD UREA NITROGEN 50 mg/dl (7-18); CREATININE 6.88 mg/dl (0.60-1.40)
== END | disposition home or self-care (01) ==
LOC: C.LABBC 12:32
PROVIDERS: ATTEND Emergency Medicine
DX: S91.105A Unspecified open wound of left lesser toe(s) without damage to nail, initial encounter (principal); X58.XXXA Exposure to other specified factors, initial encounter

== ENCOUNTER 2017-11-15 02:37 | Inpatient (IN) | payer OTHER, BC ==
[~2017-11-15] VITALS: Ht 188 cm; Wt 101.2 kg
[~2017-11-15 02:37] MED LIST changes: -LYR50 PO; -SACC250C PO; -TRAM-10 PO
[2017-11-15] MEDS ORDERED: CARV3.122 PO (02:57)
[2017-11-15] MEDS ORDERED: LACT12LO28 EXT (02:58)
[2017-11-15] MEDS ORDERED: IPRA0.06 INH (03:02)
[2017-11-15] MEDS ORDERED: LIDO1PAD2 EXT (03:04)
--- NOTE | 2017-11-15 03:04 | EMERGENCY ROOM VISIT NOTE ---
History Report prepared by Jose Antonio: Leon Naqvi Under the Supervision of: Dr. Madiha Horowitz D.O. First contact with patient: 02:52 Chief Complaint: FLU LIKE SX Stated Complaint: FLU LIKE SYMPTOMS History of Present Illness The patient is a 72 year old male who presents to the Emergency Room with complaints of intermittent vomiting that began 3 days ago. Patient has associated symptoms of nausea, headache, chills, and a sore throat. Patient states he vomited right after dinner. He states he used is DuoNeb but it did not relieve the symptoms. He denies symptoms of chest pain or abdominal pain. Patient states he had dialysis done yesterday. He states he had trouble breathing on his way home from dialysis. He adds that the trouble breathing is not abnormal. Patient states he had a flu shot this year. Patient adds that he still makes urine. Source of History: patient Onset: 3 days ago Timing: intermittent Associated Symptoms: + chills, + headache, + sorethroat, + nausea, No chest pain, No abdominal pain Review of Systems See HPI for pertinent positives & negatives. A total of 10 systems reviewed and were otherwise negative. Past Medical & Surgical Medical Problems: (1) AAA (abdominal aortic aneurysm) (2) Anxiety (3) Atrial fibrillation (4) Chest pain (5) Chronic GERD (6) Dialysis patient (7) Elevated troponin (8) Sepsis (9) Shortness of breath Surgical Problems: (1) S/P AAA repair (2) S/P ablation of atrial fibrillation (3) S/P CABG x 2 (4) S/P cholecystectomy (5) S/P femoral-popliteal bypass surgery (6) S/P MVR (mitral valve repair) Family History Patient reports no known family medical history. No pertinent family medical history. Social History Smoking Status: Never Smoker Drug Use: none Marital Status: Occupation Status: retired Current/Historical Medications Scheduled Acetaminophen/Diphenhydramine (Tylenol Pm), 1 TAB PO HS Albuterol Sulfate (Proventil Hfa), 2 PUFF INH Q 6H Alprazolam (Xanax), 0.25 MG PO HS Amiodarone Hcl (Cordarone), 200 MG PO every other day Aspirin (Aspirin Ec), 81 MG PO DAILY Atorvastatin (Lipitor), 40 MG PO DAILY Calcium Acetate (Phoslo 667 Mg), 1 TAB PO WM Carvedilol (Coreg), 3.125 MG PO BID Cyanocobalamin (Vitamin B-12), 100 MCG PO 3XWK Famotidine (Famotidine), 20 MG PO DAILY Fluticasone Furoate-Vilanterol (Breo Ellipta 200-25 Mcg/INH), 1 INHA PO DAILY Lactic Acid (Ammonium Lactate) (Ammonium Lactate), 1 APPLN EXT Q12 Lidocaine (Lidocaine), 1 PATCH EXT DAILY Midodrine Hcl (Midodrine Hcl), 5 MG PO UD Omeprazole (Prilosec), 20 MG PO DAILY Paroxetine (Paxil), 20 MG PO QHS Polyethylene Glycol 3350 (Miralax), 17 GM PO BID Temazepam (Restoril), 30 MG PO HS Tiotropium [place] (Spiriva Handihaler), 1 CAP INH DAILY Trazodone Hcl (Trazodone), 100 MG PO QHS Scheduled PRN Acetaminophen (Tylenol), 650 MG PO Q6H PRN for Pain or Fever Nitroglycerin (Nitrostat), 0.4 MG UT PRN PRN for chest pain Allergies Coded Allergies: Tramadol (Verified Allergy, Unknown, dizziness;anxiety;sob, 11/15/17) Oxycodone (Verified Adverse Reaction, Severe, DELIRIUM, 11/15/17) Physical Exam Vital Signs Date Time Temp Pulse Resp B/P (MAP) Pulse Ox O2 Delivery O2 Flow Rate FiO2 11/15/17 06:15 38.0 96 20 127/67 99 Nasal Cannula 2.0 11/15/17 05:00 38.7 102 20 142/70 99 Nasal Cannula 2.0 11/15/17 03:50 98 20 148/73 100 Nasal Cannula 2.0 11/15/17 03:36 99 Nasal Cannula 2.0 11/15/17 03:35 105 11/15/17 02:57 95 Nasal Cannula 3.0 11/15/17 02:47 39.5 106 23 176/73 89 Room Air Physical Exam HEENT: Head - normocephalic and atraumatic Pupils are equal, round, and reactive to light. Extraocular eye muscles are intact, and sclera are anicteric. Nose - moist nasal mucosa without discharge. Mouth - moist buccal mucosa. Oropharynx is nonerythematous and there is no tonsillar exudate or edema noted. Neck: Supple; no JVD, nuchal rigidity, cervical lymphadenopathy, or auscultated bruits. Heart: Tachycardic rate and rhythm. There is a normal S1 and S2 with no murmurs , clicks, or gallops appreciated. Lungs: Clear to auscultation bilaterally with no wheezes, rales, or rhonchi. Diminished breath sounds in both bases Abdomen: Soft, completely nontender, nondistended, with good bowel sounds. There are no palpable pulsatile masses or hepatosplenomegaly. There is no guarding, rigidity, or rebound noted. Extremities: No evidence of cyanosis, clubbing, or edema. There are easily palpable peripheral pulses. Skin: hot and dry with good turgor and no rashes. Medical Decision & Procedures ER Provider Diagnostic Interpretation: Radiology results as stated below per my review and the radiologist's interpretation: Chest X-Ray: Cardiomegaly, mild pulmonary vascular congestion. Laboratory Results 11/15/17 03:30 Red Blood Count 3.10, Mean Corpuscular Volume 94.8, Mean Corpuscular Hemoglobin 30.0, Mean Corpuscular Hemoglobin Concent 31.6, Mean Platelet Volume 8.1, Neutrophils (%) (Auto) 92.8, Lymphocytes (%) (Auto) 4.0, Monocytes (%) (Auto) 0.2, Eosinophils (%) (Auto) 1.9, Basophils (%) (Auto) 0.2, Neutrophils # (Auto) 3.99, Lymphocytes # (Auto) 0.17, Monocytes # (Auto) 0.01, Eosinophils # (Auto) 0.08, Basophils # (Auto) 0.01 11/15/17 03:30 Test 11/15/17 03:10 11/15/17 03:30 11/15/17 03:35 11/15/17 03:50 Influenza Type A Antigen Neg for Influ A (NEG) Influenza Type B Antigen Neg for Influ B (NEG) White Blood Count 4.30 K/uL (4.8-10.8) Red Blood Count 3.10 M/uL (4.7-6.1) Hemoglobin 9.3 g/dL (14.0-18.0) Hematocrit 29.4 % (42-52) Mean Corpuscular Volume 94.8 fL (80-100) Mean Corpuscular Hemoglobin 30.0 pg (25-34) Mean Corpuscular Hemoglobin Concent 31.6 g/dl (32-36) Platelet Count 139 K/uL (130-400) Mean Platelet Volume 8.1 fL (7.4-10.4) Neutrophils (%) (Auto) 92.8 % Lymphocytes (%) (Auto) 4.0 % Monocytes (%) (Auto) 0.2 % Eosinophils (%) (Auto) 1.9 % Basophils (%) (Auto) 0.2 % Neutrophils # (Auto) 3.99 K/uL (1.4-6.5) Lymphocytes # (Auto) 0.17 K/uL (1.2-3.4) Monocytes # (Auto) 0.01 K/uL (0.11-0.59) Eosinophils # (Auto) 0.08 K/uL (0-0.5) Basophils # (Auto) 0.01 K/uL (0-0.2) RDW Standard Deviation 48.5 fL (36.4-46.3) RDW Coefficient of Variation 14.1 % (11.5-14.5) Immature Granulocyte % (Auto) 0.9 % Immature Granulocyte # (Auto) 0.04 K/uL (0.00-0.02) Prothrombin Time 10.8 SECONDS (9.0-12.0) Prothromb Time International Ratio 1.0 (0.9-1.1) Activated Partial Thromboplast Time 20.2 SECONDS (21.0-31.0) Partial Thromboplastin Ratio 0.8 Anion Gap 10.0 mmol/L (3-11) Est Creatinine Clear Calc Drug Dose 11.4 ml/min Estimated GFR () 8.5 Estimated GFR (Non- 7.4 BUN/Creatinine Ratio 5.1 (10-20) Calcium Level 8.5 mg/dl (8.5-10.1) Total Bilirubin 0.4 mg/dl (0.2-1) Aspartate Amino Transf (AST/SGOT) 11 U/L (15-37) Alanine Aminotransferase (ALT/SGPT) 13 U/L (12-78) Alkaline Phosphatase 120 U/L (45-117) Total Creatine Kinase 42 U/L (39-308) Creatine Kinase MB 0.6 ng/ml (0.5-3.6) Creatine Kinase MB Ratio 1.4 (0-3.0) Troponin I 0.045 ng/ml (0-0.045) Total Protein 6.6 gm/dl (6.4-8.2) Albumin 2.7 gm/dl (3.4-5.0) Globulin 3.9 gm/dl (2.5-4.0) Albumin/Globulin Ratio 0.7 (0.9-2) Bedside Lactic Acid Venous 2.86 mmol/L (0.90-1.70) Urine Color YELLOW Urine Appearance CLEAR (CLEAR) Urine pH >= 9.0 (4.5-7.5) Urine Specific [place] 1.014 (1.000-1.030) Urine Protein 2+ (NEG) Urine Glucose (UA) NEG (NEG) Urine Ketones NEG (NEG) Urine Occult Blood NEG (NEG) Urine Nitrite NEG (NEG) Urine Bilirubin NEG (NEG) Urine Urobilinogen NEG (NEG) Urine Leukocyte Esterase NEG (NEG) Urine WBC (Auto) 1-5 /hpf (0-5) Urine RBC (Auto) 5-10 /hpf (0-4) Urine Hyaline Casts (Auto) 1-5 /lpf (0-5) Urine Epithelial Cells (Auto) 10-20 /lpf (0-5) Urine Bacteria (Auto) NEG (NEG) Laboratory results per my review. Medications Administered Medications (Trade) Dose Ordered Sig/Merari Route Start Time Stop Time Status Last Admin Dose Admin Acetaminophen (Tylenol Tab) 1,000 mg NOW STAT PO 11/15/17 03:48 11/15/17 03:49 DC 11/15/17 03:55 1,000 MG Levofloxacin (Levaquin / D5W) 750 mg NOW STAT IV 11/15/17 04:25 11/15/17 04:27 DC 11/15/17 04:31 750 MG Piperacillin Sod/ Tazobactam Sod (Zosyn Iv) 4.5 gm NOW STAT IV 11/15/17 04:44 11/15/17 04:45 DC 11/15/17 06:11 4.5 GM Sodium Chloride 500 ml @ 999 mls/hr Q31M STAT IV 11/15/17 04:46 11/15/17 05:16 DC 11/15/17 05:04 999 MLS/HR Sodium Chloride 1,000 ml @ 250 mls/hr Q4H STAT IV 11/15/17 04:46 11/15/17 08:45 11/15/17 05:04 250 MLS/HR Procedure IV Levaquin IV Zosyn IV normal saline hydration ECG Indication: vomiting Rate (beats per minute): 103 Rhythm: sinus tachycardia Findings: 1st degree AV block, no ectopy Comparison ECG Date: 08/01/2017 Change: ST segment depression lateral. Patient's electrocardiogram was interpreted by me. ED Course 0254: The patient was evaluated in room A12. A complete history and physical examination were performed. Nursing notes and previous electronic medical records were reviewed. IV lock was established and labs were drawn as above. A septic protocol was performed. 0348: Tylenol Tab 1000mg PO. A chest x-ray was obtained. A flu swab was obtained. 0425: Levofloxacin 750mg IV 0444: Zosyn IV 4.5gm IV, Sodium Chloride 1000 ml @ 250 mls/hr IV. 0446: Sodium Chloride 500 ml @ 999 mls/hr IV. 0512: Upon reevaluation, I discussed findings and results with him. He verbalized agreement of the treatment plan. [facility] The patient will be evaluated for further management and care. Medical Decision The patient is a 72 year old male who presents to the ED with intermittent vomiting. Differential diagnosis includes sepsis, influenza, pneumonia, and bronchitis. Lab results show white count = 4.3, hemoglobin low at 9.3, lactic acid = 2.8, BUN = 35, creatinine = 6.8, troponin = 0.045, normal coags, normal urine, and negative flu. This is a 72-year-old male patient who presents to the emergency department with sore throat, productive cough, vomiting and fever. Influenza testing was negative. Chest x-ray showed no acute pulmonary infiltrate. However, the patient felt to be septic with an elevated lactic acid, white blood cell count and fever. The patient is a dialysis patient. He was started on Zosyn and Levaquin. He remains hemodynamically stable. I discussed the case with the [facility] and they will evaluate for further management. Medication Reconcilliation Current Medication List: was personally reviewed by me Blood Pressure Screening Patient's blood pressure: Elevated blood pressure Addressed as an inpatient. Impression Primary Impression: Sepsis Additional Impression: Hypoxia Scribe Attestation The scribe's documentation has been prepared under my direction and personally reviewed by me in its entirety. I confirm that the note above accurately reflects all work, treatment, procedures, and medical decision making performed by me. Departure Information Dispostion Being Evaluated By Hospitalist Referrals Pavel Mcbride D.O. (PCP) Forms HOME CARE DOCUMENTATION FORM, IMPORTANT VISIT INFORMATION Patient Instructions My [facility] Problem Qualifiers Primary Impression: Sepsis Sepsis type: sepsis due to unspecified organism Qualified Codes: A41.9 - Sepsis, unspecified organism
[2017-11-15] MEDS ORDERED: MIDO2.5T PO (03:06)
[2017-11-15] MEDS ORDERED: POLY335019 PO (03:09)
[2017-11-15] MEDS ORDERED: DIPH-437 PO (03:13)
[2017-11-15] MEDS ORDERED: NTRGSL/4 UT (03:16)
[2017-11-15 03:47] LABS: BASO % 0.2 %; BASO ABS # 0.01 K/uL (0-0.2); EOS % 1.9 %; EOS ABS # 0.08 K/uL (0-0.5); HEMATOCRIT 29.4 % (42-52); HEMOGLOBIN 9.3 g/dL (14.0-18.0); IG# 0.04 K/uL (0.00-0.02); LYMPH ABS # 0.17 K/uL (1.2-3.4); MEAN CELL VOLUME 94.8 fL (80-100); MEAN CORPUSCULAR HGB CONC 31.6 g/dl (32-36); MEAN PLATELET VOLUME 8.1 fL (7.4-10.4); MONO % 0.2 %; MONO ABS # 0.01 K/uL (0.11-0.59); NEUT % 92.8 %; NEUT ABS # 3.99 K/uL (1.4-6.5); PLATELET COUNT 139 K/uL (130-400); RED CELL DISTRIBUTION WIDTH CV 14.1 % (11.5-14.5); RED CELL DISTRIBUTION WIDTH SD 48.5 fL (36.4-46.3)
[2017-11-15] MEDS ORDERED: ACETAMINOPHEN 500 MG TAB PO STA (03:48)
[2017-11-15 03:55] LABS: PTT PATIENT 20.2 SECONDS (21.0-31.0)
[2017-11-15 04:08] LABS: INFLUENZA B ANTIGEN Neg for Influ B (NEG)
[2017-11-15 04:19] LABS: ALBUMIN 2.7 gm/dl (3.4-5.0); CALCIUM 8.5 mg/dl (8.5-10.1); CKMB 0.6 ng/ml (0.5-3.6); CREATININE 6.8 mg/dl (0.60-1.40); POTASSIUM 3.5 mmol/L (3.5-5.1); TOTAL PROTEIN 6.6 gm/dl (6.4-8.2)
[2017-11-15] MEDS ORDERED: LEVAQUIN 750MG / 150ML D5W IV STA (04:25)
[2017-11-15] MEDS ORDERED: PIPERACILLIN/TAZOBACTAM 4.5 GM/100ML D5W IV STA (04:44)
[2017-11-15] MEDS ORDERED: SODIUM CHLORIDE 0.9% 1000ML 1,000 ML IV STA (04:46)
[2017-11-15] MEDS ORDERED: SODIUM CHLORIDE 0.9% 500ML 500 ML IV STA (04:46)
[2017-11-15] MEDS ORDERED: ALBUTEROL HFA 8 GM INHALER INH PRN (06:15)
[2017-11-15] MEDS ORDERED: ACETAMINOPHEN 325 MG TAB PO PRN (06:15)
[2017-11-15] MEDS ORDERED: ALUMINUM/MAGNESIUM/SIMETH (MAALOX MAX) 30 ML UDC PO PRN (06:30)
[2017-11-15] MEDS ORDERED: POLYETHYLENE (MIRALAX) 17 GM PACK PO PRN (06:30)
[2017-11-15] MEDS ORDERED: NITROGLYCERIN 0.4 MG SL PER TAB CHARGE SL PRN (06:30)
[2017-11-15] MEDS ORDERED: MAGNESIUM HYDROXIDE SUSP 30 ML UDC PO PRN (06:30)
[2017-11-15] MEDS ORDERED: VANCOMYCIN INJ 1,000 MG in SODIUM CHLORIDE 0.9% 250ML 250 ML IV STA (06:38)
--- NOTE | 2017-11-15 06:38 | DIAGNOSTIC IMAGING REPORT ---
CHEST ONE VIEW PORTABLE HISTORY: 72 years-old Male Sepsis acute sepsis COMPARISON: Chest radiograph 07/31/2017 TECHNIQUE: Portable AP view of the chest FINDINGS: Cardiac silhouette is again moderately enlarged, unchanged. Atherosclerosis of the aorta. Prior median sternotomy. There is no pneumothorax, or focal airspace consolidation. Trace pleural effusions bilaterally. Trace fluid is noted along the right minor fissure, unchanged. Mild pulmonary vascular congestion without overt pulmonary edema. Linear subsegmental bibasilar opacities suggest atelectasis. Bones of the chest appear grossly intact. IMPRESSION: Cardiomegaly with mild pulmonary vascular congestion and trace bilateral pleural effusions. The above report was generated using voice recognition software. It may contain grammatical, syntax or spelling errors. Electronically signed by: Oral Ford M.D. 11/15/2017 6:37 AM Dictated Date/Time: 11/15/2017 6:35 AM
[2017-11-15] MEDS ORDERED: ALBUTEROL 0.083% NEBU SOLN 3 ML VIAL INH PRN (06:45)
[2017-11-15] MEDS ORDERED: VANCOMYCIN CONSULT ACTIVE PRN (06:45)
--- NOTE | 2017-11-15 07:17 | History and Physical ---
History & Physical Date & Time of Service: Nov 15, 2017 at 06:42 Chief Complaint: Flu Like Symptoms Primary Care Physician: Pavel Mcbride D.O. History of Present Illness Source: patient, hospital records 72 y/o M Hx ESRD, CAD, PAF, osteomyelitis of L 2nd toe, COPD, LVH, grade II diastolic dysfunction, depression/anxiety. Presents with acute fever, nausea/ vomiting, SOB and a dry cough. The pt describes a dry cough for a few days. He states that earlier the previous evening, after taking his nightly meds, he became nauseous and vomited a few times. He then describes becoming SOB when retiring to sleep and then states he developed a fever and rigors. A fever was confirmed on arrival to the ER. Initial labs reveal lactic acidosis and worsening anemia. He is requiring supplemental 02 at the time of admission. A CXR is equivocal. An EKG shows inferior inversion which were not previously present. A troponin is WNL. Past Medical/Surgical History 1) Grade II diastolic dysfunction and LVH on echo 08/11 2) Chronic troponin elevation - mild 3) ESRD - dialysis M,W,F 4) AAA - repaired 5) CAD - 2V CABG 6) Hypotension related to dialysis 7) PAF - previous ablation 8) 2nd L toe osteomyelitis - followed by ID clinic - received one dose of [place] 10/12 9) Chronic anemia - baseline Hb 11 10) PVD 11) Depression/anxiety Surgical: 1) AAA repair 2) Ablation for AF 3) CABG - 2 vessel 4) Fem-pop bypass 5) Dialysis fistula RUE Family History Patient reports no known family medical history. Could not recall specifics Social History Smoking Status: Never Smoker Drug Use: none Marital Status: Occupational Status: retired Immunizations History of Influenza Vaccine: Unknown History of Tetanus Vaccine?: Unknown History of Pneumococcal: Unknown History of Hepatitis B Vaccine: Unknown Multi-Drug Resistant Organisms History of MDRO: No Allergies Coded Allergies: Tramadol (Verified Allergy, Unknown, dizziness;anxiety;sob, 11/15/17) Oxycodone (Verified Adverse Reaction, Severe, DELIRIUM, 11/15/17) Home Medications Scheduled Acetaminophen/Diphenhydramine (Tylenol Pm), 1 TAB PO HS Albuterol Sulfate (Proventil Hfa), 2 PUFF INH Q 6H Alprazolam (Xanax), 0.25 MG PO HS Amiodarone Hcl (Cordarone), 200 MG PO every other day Aspirin (Aspirin Ec), 81 MG PO DAILY Atorvastatin (Lipitor), 40 MG PO DAILY Calcium Acetate (Phoslo 667 Mg), 1 TAB PO WM Carvedilol (Coreg), 3.125 MG PO BID Cyanocobalamin (Vitamin B-12), 100 MCG PO 3XWK Famotidine (Famotidine), 20 MG PO DAILY Fluticasone Furoate-Vilanterol (Breo Ellipta 200-25 Mcg/INH), 1 INHA PO DAILY Lactic Acid (Ammonium Lactate) (Ammonium Lactate), 1 APPLN EXT Q12 Lidocaine (Lidocaine), 1 PATCH EXT DAILY Midodrine Hcl (Midodrine Hcl), 5 MG PO UD Omeprazole (Prilosec), 20 MG PO DAILY Paroxetine (Paxil), 20 MG PO QHS Polyethylene Glycol 3350 (Miralax), 17 GM PO BID Temazepam (Restoril), 30 MG PO HS Tiotropium [place] (Spiriva Handihaler), 1 CAP INH DAILY Trazodone Hcl (Trazodone), 100 MG PO QHS Scheduled PRN Acetaminophen (Tylenol), 650 MG PO Q6H PRN for Pain or Fever Nitroglycerin (Nitrostat), 0.4 MG UT PRN PRN for chest pain Review of Systems Constitutional: + fever, + chills, + sweats, + weakness, + fatigue Eyes: No worsening of vision ENT: No hearing loss, No unusual epistaxis, No nasal symptoms Respiratory: + cough, + shortness of breath, + dyspnea on exertion, + dyspnea at rest Cardiovascular: No chest pain, No orthopnea, No PND Abdomen: + pain, + nausea, + vomiting Musculoskeletal: No joint pain Genitourinary - Male: + problem reported (MAkes urine approximately once daily) , No hematuria Neurologic: + weakness, No memory loss, No paralysis Psychiatric: No depression symptoms Endocrine: + fatigue Hematologic / Lymphatic: No abnormal bleeding/bruising Integumentary: + problem reported (Ulcer over L 2nd toe - chronic) Physical Exam Vital Signs Date Time Temp Pulse Resp B/P (MAP) Pulse Ox O2 Delivery O2 Flow Rate FiO2 11/15/17 06:15 38.0 96 20 127/67 99 Nasal Cannula 2.0 11/15/17 05:00 38.7 102 20 142/70 99 Nasal Cannula 2.0 11/15/17 03:50 98 20 148/73 100 Nasal Cannula 2.0 11/15/17 03:36 99 Nasal Cannula 2.0 11/15/17 03:35 105 11/15/17 02:57 95 Nasal Cannula 3.0 11/15/17 02:47 39.5 106 23 176/73 89 Room Air General Appearance: + pertinent finding (Pleasant elderly male - lying on R side as he only feels comfortable in this position. AAO. 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, no motor/sensory deficits, alert Skin: + pertinent finding (Ulcer of 2nd L toe - Stasis chnages/discoloration of both LEs - cannot discern pulses - cap refil is present) Diagnostics Laboratory Results Results Past 24 Hours Test 11/15/17 03:10 11/15/17 03:30 11/15/17 03:35 11/15/17 03:50 Range/Units Influenza Type A Antigen Neg for Influ A NEG Influenza Type B Antigen Neg for Influ B NEG White Blood Count 4.30 4.8-10.8 K/uL Red Blood Count 3.10 4.7-6.1 M/uL Hemoglobin 9.3 14.0-18.0 g/dL Hematocrit 29.4 42-52 % Mean Corpuscular Volume 94.8 80-100 fL Mean Corpuscular Hemoglobin 30.0 25-34 pg Mean Corpuscular Hemoglobin Concent 31.6 32-36 g/dl Platelet Count 139 130-400 K/uL Mean Platelet Volume 8.1 7.4-10.4 fL Neutrophils (%) (Auto) 92.8 % Lymphocytes (%) (Auto) 4.0 % Monocytes (%) (Auto) 0.2 % Eosinophils (%) (Auto) 1.9 % Basophils (%) (Auto) 0.2 % Neutrophils # (Auto) 3.99 1.4-6.5 K/uL Lymphocytes # (Auto) 0.17 1.2-3.4 K/uL Monocytes # (Auto) 0.01 0.11-0.59 K/uL Eosinophils # (Auto) 0.08 0-0.5 K/uL Basophils # (Auto) 0.01 0-0.2 K/uL RDW Standard Deviation 48.5 36.4-46.3 fL RDW Coefficient of Variation 14.1 11.5-14.5 % Immature Granulocyte % (Auto) 0.9 % Immature Granulocyte # (Auto) 0.04 0.00-0.02 K/uL Prothrombin Time 10.8 9.0-12.0 SECONDS Prothromb Time International Ratio 1.0 0.9-1.1 Activated Partial Thromboplast Time 20.2 21.0-31.0 SECONDS Partial Thromboplastin Ratio 0.8 Sodium Level 137 136-145 mmol/L Potassium Level 3.5 3.5-5.1 mmol/L Chloride Level 99 98-107 mmol/L Carbon Dioxide Level 28 21-32 mmol/L Anion Gap 10.0 3-11 mmol/L Blood Urea Nitrogen 35 7-18 mg/dl Creatinine 6.80 0.60-1.40 mg/dl Est Creatinine Clear Calc Drug Dose 11.4 ml/min Estimated GFR () 8.5 Estimated GFR (Non- 7.4 BUN/Creatinine Ratio 5.1 10-20 Random Glucose 82 70-99 mg/dl Calcium Level 8.5 8.5-10.1 mg/dl Total Bilirubin 0.4 0.2-1 mg/dl Aspartate Amino Transf (AST/SGOT) 11 15-37 U/L Alanine Aminotransferase (ALT/SGPT) 13 12-78 U/L Alkaline Phosphatase 120 45-117 U/L Total Creatine Kinase 42 39-308 U/L Creatine Kinase MB 0.6 0.5-3.6 ng/ml Creatine Kinase MB Ratio 1.4 0-3.0 Troponin I 0.045 0-0.045 ng/ml Total Protein 6.6 6.4-8.2 gm/dl Albumin 2.7 3.4-5.0 gm/dl Globulin 3.9 2.5-4.0 gm/dl Albumin/Globulin Ratio 0.7 0.9-2 Bedside Lactic Acid Venous 2.86 0.90-1.70 mmol/L Urine Color YELLOW Urine Appearance CLEAR CLEAR Urine pH >= 9.0 4.5-7.5 Urine Specific [place] 1.014 1.000-1.030 Urine Protein 2+ NEG Urine Glucose (UA) NEG NEG Urine Ketones NEG NEG Urine Occult Blood NEG NEG Urine Nitrite NEG NEG Urine Bilirubin NEG NEG Urine Urobilinogen NEG NEG Urine Leukocyte Esterase NEG NEG Urine WBC (Auto) 1-5 0-5 /hpf Urine RBC (Auto) 5-10 0-4 /hpf Urine Hyaline Casts (Auto) 1-5 0-5 /lpf Urine Epithelial Cells (Auto) 10-20 0-5 /lpf Urine Bacteria (Auto) NEG NEG Microbiology Results 11/15/17 Blood Culture, Received Pending 11/15/17 Blood Culture, Received Pending Diagnostic Radiology CXR is equivocal - may have LLL infiltrate EKG Sinus - 1st degree AV - inferior inversions which are new Impression Assessment and Plan 72 y/o M Hx ESRD, CAD, PAF, osteomyelitis of L 2nd toe, COPD, LVH, grade II diastolic dysfunction, depression/anxiety. Presents with acute fever, nausea/ vomiting, SOB and a dry cough. The pt describes a dry cough for a few days. He states that earlier the previous evening, after taking his nightly meds, he became nauseous and vomited a few times. He then describes becoming SOB when retiring to sleep and then states he developed a fever and rigors. A fever was confirmed on arrival to the ER. Initial labs reveal lactic acidosis and worsening anemia. He is requiring supplemental 02 at the time of admission. A CXR is equivocal. An EKG shows inferior inversion which were not previously present. A troponin is WNL. 1) Fever, SOB, Sepsis - the above sequence would point to a diagnosis of aspiration following a bout of nausea and vomiting. His states however, that his symptoms may have started all at once. He also describes a cough prior to onset of nausea and vomiting. A CXR does not show a clear infiltrate or change from previous. He continues to C/O SOB as his primary symptom. We will obtain a CT of the chest and abdomen. If no infectious source is apparent , would consider treating for sepsis related to his osteomyelitis or to his dialysis access and an ID consult. He is placed on Levaquin and Unasyn empirically and received one dose of Vanc as well. 2) Anemia - Hb declined 1.5 units form 08/11 - will trend Hb and hold anticoagulants pending a repeat. Stool guiac requested although anemia is more likely related to his ESRD. 3) Inferior inversion on EKG, history of CAD - trop WNL - no complaint of CP - he is tachy so hat this may be rate related. We will trend enzymes and repeat an EKG in the afternoon or PRN. Cont ASA, Coreg, Lipitor. 4) ESRD - Due for dialysis Thursday - nephrology consulted 5) Diastolic CHF - received IVF in ER and he is prone to hypotension - He has JVD and is SOB although this is presumed due to infection. A diuretic may be effective if needed as he still make urine. Would be cautious with additional fluid administration. 6) PAF - sinus rhythm on arrival - cont Amio 7) Osteomyelitis - follow with ID as needed 8) COPD - cont inhalers as prescribed - consider steroids if SOB does not improve Full code - Heparin held pending repeat Hb Total time for this admit including review of labs, meds, imaging - discussion with pt, , ER attending - 45 min Level of Care Telemetry Resuscitation Status FULL RESUSCITATION VTE Prophylaxis VTE Risk Assessment Done? Y/N: Yes Risk Level: Moderate Given or contraindicated: Contraindicated
[2017-11-15 07:25] VITALS: BP 129/72; PULSE 89; TEMP 37.2; O2SAT 100; BMI 27.1
[2017-11-15] MEDS ORDERED: ONDANSETRON INJ 2 MG/ML 2 ML VIAL ONE (08:01)
--- NOTE | 2017-11-15 08:02 | DIAGNOSTIC IMAGING REPORT ---
(CHEST) THORAX WITHOUT, ABDOMEN NO IV/ORAL CONT (CT) CT DOSE: 1552.09 mGy.cm CLINICAL HISTORY: 72 years-old Male with occult PNM. Acute fever with flulike symptoms. TECHNIQUE: Multiaxial CT images of the chest and abdomen were performed without contrast. A dose lowering technique was utilized adhering to the principles of ALARA. COMPARISON: CT abdomen and pelvis 07/30/2017. FINDINGS: CT CHEST: Calcified posterior right thyroid nodule measures 7 mm. Study is limited without the use of IV contrast and also secondary to positioning of the patient's arms. Nonspecific mildly enlarged precarinal lymph nodes are seen measuring up to 1.5 x 1.1 cm. Mildly prominent subcarinal lymph node measures 1.7 x 0.9 cm. There is mild multichamber cardiac enlargement with coronary arterial disease, prior median sternotomy and suggested CABG. Metallic mitral annular ring is noted. There is moderate atherosclerosis of the aorta. Mild fusiform dilation of the ascending thoracic aorta measures up to 4.4 x 4.3 cm. The unopacified pulmonary arterial tree is unremarkable. Radiodensities in a bronchovascular distribution are noted within the basal left lower lobe suspicious for prior barium aspiration. Radiopacities of the right middle lobe and right lower lobe may reflect postsurgical changes or additional chronically aspirated radiodense material. Small right pleural effusion with bibasilar subpleural reticulation suggesting scarring. Tree-in-bud nodularity of the left lower and right middle lobes suggests bronchiolitis. These findings are unchanged from comparison. Scattered calcified granulomas are also noted within the right middle lobe. Pleural-based calcifications are seen adjacent to the medial segment right middle lobe. Central airways are patent. No pneumothorax. Soft tissues of the chest appear unremarkable. The bones appear mildly demineralized. Multilevel endplate spurring of the spine. CT ABDOMEN: No pneumatosis or pneumoperitoneum identified. Evaluation of the solid abdominal organs is limited without the use of IV contrast. Study is also limited secondary to positioning of patient's arms. Prior cholecystectomy. The previously described ill-defined area of low-attenuation within the region of the wendy hepatis is not well seen on today's study. 1.0 cm lesion of the posterior right hepatic lobe is again seen on image 29 series 5 which is unchanged and again nonspecific. The spleen, pancreas and adrenal glands are within normal limits. 3.3 cm low attenuating exophytic lesion of the inferior pole right kidney is unchanged suggesting renal cyst. Mild nonspecific bilateral perinephric stranding. Mild renal atrophy on the right with vascular calcifications of the kidneys seen bilaterally. Moderate left renal atrophy. Multiple calcifications insertion of the left kidney also likely vascular. No obstructive renal calculi. The ureters appear unremarkable. Extensive atherosclerosis of the aorta with aortobiiliac stent graft present. No bulky adenopathy identified. No bowel obstruction or focal bowel wall thickening identified. No ascites or focal inflammatory changes. Appendix appears normal. Mild diastases recti. Gynecomastia. Multilevel endplate degenerative changes and facet arthrosis of the spine. Grade 1 anterolisthesis L4 on L5 likely secondary to advanced facet disease. Large Schmorl's node involving the superior endplate L2 with associated endplate compression deformity is unchanged IMPRESSION: 1. No acute process identified within the chest or abdomen. 2. Mild right and moderate left renal atrophy. 3. Trace right pleural effusion with unchanged areas of increased attenuation within the bilateral lung bases suspicious for prior aspirated barium and/or granulomatous disease with associated areas of pleural-parenchymal scarring and unchanged bronchiolitis. 4. No lobar airspace consolidation to suggest pneumonia. 5. Mildly enlarged and prominent mediastinal lymph nodes may be reactive. 6. Additional findings as above. Electronically signed by: Oral Ford M.D. 11/15/2017 8:01 AM Dictated Date/Time: 11/15/2017 7:43 AM
[2017-11-15] MEDS: ACETAMINOPHEN 325 MG TAB PO PRN (08:20)
[2017-11-15] MEDS ORDERED: LEVOFLOXACIN CONSULT ACTIVE PRN (08:45)
[2017-11-15] MEDS ORDERED: AMPICILLIN/SULBACTAM CONSULT ACTIVE PRN (08:45)
[2017-11-15] MEDS: LIDODERM (LIDOCAINE) PATCH 5% TD SCH (09:00)
[2017-11-15] MEDS: POLYETHYLENE (MIRALAX) 17 GM PACK PO SCH ×2 (09:00→20:46)
[2017-11-15] MEDS: AMMONIUM LACTATE 12% LOTION 225 GM BTL EXT SCH ×2 (09:02→20:52)
[2017-11-15] MEDS: ASPIRIN 81 MG ECTAB PO SCH (09:03)
[2017-11-15] MEDS: ATORVASTATIN 40 MG TAB PO SCH (09:03)
[2017-11-15] MEDS: TIOTROPIUM BROMIDE 5 PUFF/90 MCG INH INH SCH (09:03)
[2017-11-15] MEDS: CARVEDILOL 3.125 MG TAB PO SCH ×2 (09:03→20:50)
[2017-11-15] MEDS: AMIODARONE 200 MG TAB PO SCH (09:03)
[2017-11-15] MEDS: PANTOprazole SOD 40 MG TAB PO SCH (09:04)
[2017-11-15] MEDS: PAROXETINE 20 MG TAB PO SCH (09:04)
[2017-11-15] MEDS: FAMOTIDINE 20 MG TAB PO SCH (09:04)
--- NOTE | 2017-11-15 09:25 | Pharmacy Progress Note ---
Pharmacy Antibiotic Consult Date of Service: Nov 15, 2017. Pharmacy Dosing Scope Pharmacy is consulted to initiate vancomycin, unasyn, levofloxacin IV dosing therapy, order appropriate labs and adjust drug dose/frequency. Subjective The patient is a 72 year old male admitted on Nov 15, 2017 at 06:26. Objective Height (Feet): 6 Height (Inches): 2.00 Weight (Kilograms): 95.600 Lab Results (24hrs): Test 11/15/17 03:10 11/15/17 03:30 11/15/17 03:35 11/15/17 03:50 Influenza Type A Antigen Neg for Influ A (NEG) Influenza Type B Antigen Neg for Influ B (NEG) White Blood Count 4.30 K/uL (4.8-10.8) Red Blood Count 3.10 M/uL (4.7-6.1) Hemoglobin 9.3 g/dL (14.0-18.0) Hematocrit 29.4 % (42-52) Mean Corpuscular Volume 94.8 fL (80-100) Mean Corpuscular Hemoglobin 30.0 pg (25-34) Mean Corpuscular Hemoglobin Concent 31.6 g/dl (32-36) Platelet Count 139 K/uL (130-400) Mean Platelet Volume 8.1 fL (7.4-10.4) Neutrophils (%) (Auto) 92.8 % Lymphocytes (%) (Auto) 4.0 % Monocytes (%) (Auto) 0.2 % Eosinophils (%) (Auto) 1.9 % Basophils (%) (Auto) 0.2 % Neutrophils # (Auto) 3.99 K/uL (1.4-6.5) Lymphocytes # (Auto) 0.17 K/uL (1.2-3.4) Monocytes # (Auto) 0.01 K/uL (0.11-0.59) Eosinophils # (Auto) 0.08 K/uL (0-0.5) Basophils # (Auto) 0.01 K/uL (0-0.2) RDW Standard Deviation 48.5 fL (36.4-46.3) RDW Coefficient of Variation 14.1 % (11.5-14.5) Immature Granulocyte % (Auto) 0.9 % Immature Granulocyte # (Auto) 0.04 K/uL (0.00-0.02) Prothrombin Time 10.8 SECONDS (9.0-12.0) Prothromb Time International Ratio 1.0 (0.9-1.1) Activated Partial Thromboplast Time 20.2 SECONDS (21.0-31.0) Partial Thromboplastin Ratio 0.8 Sodium Level 137 mmol/L (136-145) Potassium Level 3.5 mmol/L (3.5-5.1) Chloride Level 99 mmol/L (98-107) Carbon Dioxide Level 28 mmol/L (21-32) Anion Gap 10.0 mmol/L (3-11) Blood Urea Nitrogen 35 mg/dl (7-18) Creatinine 6.80 mg/dl (0.60-1.40) Est Creatinine Clear Calc Drug Dose 11.4 ml/min Estimated GFR () 8.5 Estimated GFR (Non- 7.4 BUN/Creatinine Ratio 5.1 (10-20) Random Glucose 82 mg/dl (70-99) Calcium Level 8.5 mg/dl (8.5-10.1) Total Bilirubin 0.4 mg/dl (0.2-1) Aspartate Amino Transf (AST/SGOT) 11 U/L (15-37) Alanine Aminotransferase (ALT/SGPT) 13 U/L (12-78) Alkaline Phosphatase 120 U/L (45-117) Total Creatine Kinase 42 U/L (39-308) Creatine Kinase MB 0.6 ng/ml (0.5-3.6) Creatine Kinase MB Ratio 1.4 (0-3.0) Troponin I 0.045 ng/ml (0-0.045) Total Protein 6.6 gm/dl (6.4-8.2) Albumin 2.7 gm/dl (3.4-5.0) Globulin 3.9 gm/dl (2.5-4.0) Albumin/Globulin Ratio 0.7 (0.9-2) Bedside Lactic Acid Venous 2.86 mmol/L (0.90-1.70) Urine Color YELLOW Urine Appearance CLEAR (CLEAR) Urine pH >= 9.0 (4.5-7.5) Urine Specific [place] 1.014 (1.000-1.030) Urine Protein 2+ (NEG) Urine Glucose (UA) NEG (NEG) Urine Ketones NEG (NEG) Urine Occult Blood NEG (NEG) Urine Nitrite NEG (NEG) Urine Bilirubin NEG (NEG) Urine Urobilinogen NEG (NEG) Urine Leukocyte Esterase NEG (NEG) Urine WBC (Auto) 1-5 /hpf (0-5) Urine RBC (Auto) 5-10 /hpf (0-4) Urine Hyaline Casts (Auto) 1-5 /lpf (0-5) Urine Epithelial Cells (Auto) 10-20 /lpf (0-5) Urine Bacteria (Auto) NEG (NEG) Test 11/15/17 08:12 Troponin I 0.121 ng/ml (0-0.045) Assessment & Plan Patient started on empiric coverage (asp pneumonia vs HD graft infection vs osteo). HD schedule M,W,F. Loading dose: vancomycin 2000 mg IV X [address] Akins's note. Will not redose unless provider indicated. Levofloxacin: 750mg X 1, then 500mg q48 Unasyn: 3g q24 starting at 2100 (received one dose of zosyn this morning in ED) Pharmacy will continue to follow and will adjust dose/frequency as necessary. Thank you
[2017-11-15] MEDS ORDERED: LEVOFLOXACIN / D5W 750 MG in PREMIXED IN D5W 150 ML IV ONE (09:30)
[2017-11-15] MEDS ORDERED: VANCOMYCIN INJ 2,000 MG in SODIUM CHLORIDE 0.9% 500ML 500 ML IV ONE (09:30)
[2017-11-15] MEDS: CALCIUM ACETATE 667MG GELCAP PO SCH ×2 (11:49→16:43)
[2017-11-15 12:01] VITALS: BP 106/55; PULSE 78; TEMP 37; O2SAT 100
--- NOTE | 2017-11-15 12:40 | Nephrology Consultation ---
Nephrology Consultation Date of Consultation: Nov 15, 2017. Attending Physician: Dr Gómez Requesting Physician: Dr Gómez Reason for Consultation: ESRD on HD History of Present Illness 72 year old male w/ ESRD on MWF HD admitted this morning w/ concern for sepsis after presenting w/ F to 39.5, cough, dyspnea. Also noted to have some ECG changes on presentation. Other PMH includes CAD, HTN, PVD, a fib, chronic/ recent osteomyelitis of L 2nd toe, anxiety/depression. He follows w/ Dr Brambila at [facility] and dialyzes via RUE AVF. Last HD was on 11/13 and per pt uneventful. Reportedly his dialysis treatments are frequently complicated by post treatment orthostatic hypotension. He takes midodrine pre/ late in dialysis. Pt state that he started feeling poorly w/ more generalized weakness , decreased po, cough about 11/11 or 11/02, but that last evening after supper he developed F, chills and had a few episodes of NBNB emesis. He is receiving levaquin, unasyn, and vancomycin currently. Past Medical/Surgical History Medical Problems: (1) Elevated troponin I level Status: Acute (2) Hypoxia Status: Acute (3) Nausea Status: Acute -ESRD on MWF HD w/ RUE AVF -CAD s/p CABG -A fib s/p ablation -AAA s/p repair -s/p MVR -GERD -PVD s/p femoral popliteal bypass -osteomyelitis 2nd L toe followed by inf dzs near weekly -anxiety/depression Family History Patient reports no known family medical history. Social History Smoking Status: Never Smoker Alcohol Use: none Drug Use: none Marital Status: Housing Status: lives with family Occupation Status: retired Allergies Coded Allergies: Tramadol (Verified Allergy, Unknown, dizziness;anxiety;sob, 11/15/17) Oxycodone (Verified Adverse Reaction, Severe, DELIRIUM, 11/15/17) Medications Current Inpatient Medications Medications (Trade) Dose Ordered Sig/Merari Route Start Time Stop Time Status Last Admin Dose Admin Alprazolam (Xanax Tab) 0.25 mg HS PO 11/15/17 21:00 12/15/17 20:59 Amiodarone HCl (Cordarone Tab) 200 mg DAILY PO 11/15/17 09:00 12/15/17 08:59 11/15/17 09:03 200 MG Aspirin (Ecotrin Tab) 81 mg DAILY PO 11/15/17 09:00 12/15/17 08:59 11/15/17 09:03 81 MG Atorvastatin Calcium (Lipitor Tab) 40 mg DAILY PO 11/15/17 09:00 12/15/17 08:59 11/15/17 09:03 40 MG Calcium Acetate (Phoslo Cap) 667 mg TIDM PO 11/15/17 11:30 12/15/17 11:29 Carvedilol (Coreg Tab) 3.125 mg BID PO 11/15/17 09:00 12/15/17 08:59 11/15/17 09:03 3.125 MG Famotidine (Pepcid Tab) 20 mg DAILY PO 11/15/17 09:00 12/15/17 08:59 11/15/17 09:04 20 MG Ammonium Lactate (Lac-Hydrin) 1 appl Q12 EXT 11/15/17 09:00 12/15/17 08:59 11/15/17 09:02 1 APPL Lidocaine (Lidoderm Patch 5%) 1 patch DAILY TD 11/15/17 09:00 12/15/17 08:59 Midodrine (Proamatine Tab) 5 mg UD PO 11/15/17 06:15 12/15/17 06:14 UNV Paroxetine HCl (pAXil TAB) 20 mg DAILY PO 11/15/17 09:00 12/15/17 08:59 11/15/17 09:04 20 MG Tiotropium [place] (Spiriva Handihaler Inhaler) 1 puff DAILY INH 11/15/17 09:00 12/15/17 08:59 11/15/17 09:03 1 PUFF Trazodone HCl (Desyrel Tab) 100 mg HS PO 11/15/17 21:00 12/15/17 20:59 Non-Formulary Medication (Acetaminophen/ Diphenhydramine (Tylenol Pm)) 1 tab HS PO 11/15/17 21:00 12/15/17 20:59 UNV Miscellaneous Information (Order Awaiting Action) 1 ea QS N/A 11/15/17 16:00 12/15/17 15:59 Pantoprazole Sodium (Protonix Tab) 40 mg DAILY PO 11/15/17 09:00 12/15/17 08:59 11/15/17 09:04 40 MG Polyethylene (Miralax Powder Packet) 17 gm BID PO 11/15/17 09:00 12/15/17 08:59 Miscellaneous (Remove Lidoderm Patch) 1 ea DAILY@21 N/A 11/15/17 21:00 12/15/17 20:59 Acetaminophen (Tylenol Tab) 650 mg Q4H PRN PO 11/15/17 06:30 12/15/17 06:29 11/15/17 08:20 650 MG Al Hydrox/Mg Hydrox/Simethicone (Maalox Max Susp) 15 ml Q4H PRN PO 11/15/17 06:30 12/15/17 06:29 Magnesium Hydroxide (Milk Of Magnesia Susp) 30 ml Q12H PRN PO 11/15/17 06:30 12/15/17 06:29 Ondansetron HCl (Zofran Inj) 4 mg Q6H PRN IV 11/15/17 06:30 12/15/17 06:29 Nitroglycerin (Nitrostat Tab) 0.4 mg UD PRN SL 11/15/17 06:30 12/15/17 06:29 Polyethylene (Miralax Powder Packet) 17 gm DAILY PRN PO 11/15/17 06:30 12/15/17 06:29 Albuterol/ Ipratropium (Duoneb) 3 ml Q6R INH 11/15/17 09:00 12/15/17 08:59 Albuterol Sulfate (Ventolin 0.083% 2.5MG/3ML Neb) 2.5 mg Q4H PRN INH 11/15/17 06:45 12/15/17 06:44 Miscellaneous Information (Consult) 1 ea UD PRN N/A 11/15/17 06:45 12/15/17 06:44 Ampicillin Sodium/ Sulbactam Sodium 3000 mg/Sodium Chloride 108 ml @ 200 mls/hr Q24H IV 11/15/17 21:00 11/22/17 20:59 Levofloxacin (Consult) 1 ea UD PRN N/A 11/15/17 08:45 12/15/17 08:44 Ampicillin Sodium/ Sulbactam Sodium (Consult) 1 ea UD PRN N/A 11/15/17 08:45 12/15/17 08:44 Vancomycin HCl 2000 mg/Sodium Chloride 540 ml @ 200 mls/hr ONE ONCE IV 11/15/17 09:30 11/15/17 12:11 11/15/17 09:20 200 MLS/HR Levofloxacin 500 mg/Prmx 150 ml @ 100 mls/hr Q48H IV 11/17/17 09:30 11/24/17 09:29 Home Meds and Scripts Medications Dose Route/Sig Max Daily Dose Days Date Category Dose Instructions Nitrostat (Nitroglycerin) 0.4 Mg Tab 0.4 Mg UT PRN PRN 11/15/17 Reported Tylenol Pm (Acetaminophen/Diphenhydramine HCl) 500 Mg/25 Mg Tab 1 Tab PO HS 11/15/17 Reported take at hs with temazepam Miralax (Polyethylene Glycol 3350) 1 Pow 17 Gm PO BID 11/15/17 Reported Midodrine Hcl 2.5 Mg Tab 5 Mg PO UD 11/15/17 Reported take dose in am, on dialysis days take second dose prior to dialysis Lidocaine 5 % Pad 1 Patch EXT DAILY 11/15/17 Reported Ammonium Lactate (Lactic Acid (Ammonium Lactate)) 12 % Lot 1 Appln EXT Q12 11/15/17 Reported Coreg (Carvedilol) 3.125 Mg Tab 3.125 Mg PO BID 11/15/17 Reported Breo Ellipta 200-25 Mcg/INH (Fluticasone Furoate-Vilanterol) 1 Inh Inh 1 Inha PO DAILY 07/30/17 Reported Phoslo 667 Mg (Calcium Acetate) 667 Mg Cap 1 Tab PO WM 07/30/17 Reported Prilosec (Omeprazole) 20 Mg Capcr 20 Mg PO DAILY 07/30/17 Reported Trazodone (Trazodone HCl) 100 Mg Tab 100 Mg PO QHS 07/14/17 Reported Spiriva Handihaler (Tiotropium [place]) 30 Puff/540 Mcg Aerp 1 Cap INH DAILY 30 07/14/17 Reported Restoril (Temazepam) 30 Mg Cap 30 Mg PO HS 07/14/17 Reported Proventil Hfa (Albuterol Sulfate) 108 Mcg/Act Aer 2 Puff INH Q 6H 07/14/17 Reported Paxil (Paroxetine HCl) 20 Mg Tab 20 Mg PO QHS 07/14/17 Reported Famotidine 20 Mg Tab 20 Mg PO DAILY 07/14/17 Reported Vitamin B-12 (Cyanocobalamin) 100 Mcg Tab 100 Mcg PO 3XWK 07/14/17 Reported TUES, THURS, SAT Lipitor (Atorvastatin Calcium) 40 Mg Tab 40 Mg PO DAILY 90 07/14/17 Reported Aspirin Ec (Aspirin) 81 Mg Tab 81 Mg PO DAILY 07/14/17 Reported Cordarone (Amiodarone Hcl) 200 Mg Tab 200 Mg PO EVERY OTHER DAY 07/14/17 Reported Xanax (Alprazolam) 0.5 Mg Tab 0.25 Mg PO HS 07/14/17 Reported Tylenol (Acetaminophen) 325 Mg Tab 650 Mg PO Q6H PRN 07/14/17 Reported Review of Systems Constitutional: + fever, + chills, + weakness, + fatigue Eyes: No worsening of vision ENT: No hearing loss Respiratory: + cough, + sputum, No shortness of breath Cardiac: No chest pain, No edema, No palpitations Abdomen: No pain, No nausea, No vomiting, No diarrhea Musculoskeletal: No joint pain, No muscle pain Male : + problem reported (voids small amount daily; no change in chronic voiding habits) Neuro: + weakness, + balance problems, No memory loss, No numbness/tingling Psych: No depression symptoms, No anxiety Heme: No abnormal bleeding/bruising Endo: + fatigue Skin: + problem reported (chronic BL foot wounds), No rash, No itch Physical Exam Date Time Temp Pulse Resp B/P (MAP) Pulse Ox O2 Delivery O2 Flow Rate FiO2 11/15/17 07:25 37.2 89 18 129/72 100 Nasal Cannula 3.0 11/15/17 07:23 37.8 92 20 119/58 98 11/15/17 06:15 38.0 96 20 127/67 99 Nasal Cannula 2.0 11/15/17 05:00 38.7 102 20 142/70 99 Nasal Cannula 2.0 11/15/17 03:50 98 20 148/73 100 Nasal Cannula 2.0 11/15/17 03:36 99 Nasal Cannula 2.0 11/15/17 03:35 105 11/15/17 02:57 95 Nasal Cannula 3.0 11/15/17 02:47 39.5 106 23 176/73 89 Room Air General Appearance: WD/WN, no apparent distress, + pertinent finding (on 3L 02NC, thick hacking cough a few times in interview) Eyes: EOMI ENT: hearing grossly normal Neck: supple Respiratory/Chest: no respiratory distress, + decreased breath sounds (BL bases rhonda) Cardiovascular: regular rate, rhythm, + pertinent finding (trace pretibial edema BL) Abdomen: normal bowel sounds, non tender, soft, + pertinent finding (no yoon) Extremities: + pertinent finding (wound L 2nd toe, R great toe) Neurologic/Psych: alert, normal mood/affect, oriented x 3 (a few limits at times w/ hx) Skin: no jaundice, warm/dry Diagnostics Last 24 Hours Test 11/15/17 03:10 11/15/17 03:30 11/15/17 03:35 11/15/17 03:50 Influenza Type A Antigen Neg for Influ A Influenza Type B Antigen Neg for Influ B White Blood Count 4.30 K/uL Red Blood Count 3.10 M/uL Hemoglobin 9.3 g/dL Hematocrit 29.4 % Mean Corpuscular Volume 94.8 fL Mean Corpuscular Hemoglobin 30.0 pg Mean Corpuscular Hemoglobin Concent 31.6 g/dl Platelet Count 139 K/uL Mean Platelet Volume 8.1 fL Neutrophils (%) (Auto) 92.8 % Lymphocytes (%) (Auto) 4.0 % Monocytes (%) (Auto) 0.2 % Eosinophils (%) (Auto) 1.9 % Basophils (%) (Auto) 0.2 % Neutrophils # (Auto) 3.99 K/uL Lymphocytes # (Auto) 0.17 K/uL Monocytes # (Auto) 0.01 K/uL Eosinophils # (Auto) 0.08 K/uL Basophils # (Auto) 0.01 K/uL RDW Standard Deviation 48.5 fL RDW Coefficient of Variation 14.1 % Immature Granulocyte % (Auto) 0.9 % Immature Granulocyte # (Auto) 0.04 K/uL Prothrombin Time 10.8 SECONDS Prothromb Time International Ratio 1.0 Activated Partial Thromboplast Time 20.2 SECONDS Partial Thromboplastin Ratio 0.8 Sodium Level 137 mmol/L Potassium Level 3.5 mmol/L Chloride Level 99 mmol/L Carbon Dioxide Level 28 mmol/L Anion Gap 10.0 mmol/L Blood Urea Nitrogen 35 mg/dl Creatinine 6.80 mg/dl Est Creatinine Clear Calc Drug Dose 11.4 ml/min Estimated GFR () 8.5 Estimated GFR (Non- 7.4 BUN/Creatinine Ratio 5.1 Random Glucose 82 mg/dl Calcium Level 8.5 mg/dl Total Bilirubin 0.4 mg/dl Aspartate Amino Transf (AST/SGOT) 11 U/L Alanine Aminotransferase (ALT/SGPT) 13 U/L Alkaline Phosphatase 120 U/L Total Creatine Kinase 42 U/L Creatine Kinase MB 0.6 ng/ml Creatine Kinase MB Ratio 1.4 Troponin I 0.045 ng/ml Total Protein 6.6 gm/dl Albumin 2.7 gm/dl Globulin 3.9 gm/dl Albumin/Globulin Ratio 0.7 Bedside Lactic Acid Venous 2.86 mmol/L Urine Color YELLOW Urine Appearance CLEAR Urine pH >= 9.0 Urine Specific [place] 1.014 Urine Protein 2+ Urine Glucose (UA) NEG Urine Ketones NEG Urine Occult Blood NEG Urine Nitrite NEG Urine Bilirubin NEG Urine Urobilinogen NEG Urine Leukocyte Esterase NEG Urine WBC (Auto) 1-5 /hpf Urine RBC (Auto) 5-10 /hpf Urine Hyaline Casts (Auto) 1-5 /lpf Urine Epithelial Cells (Auto) 10-20 /lpf Urine Bacteria (Auto) NEG Test 11/15/17 08:12 Troponin I 0.121 ng/ml Diagnostic Radiology: CXR Cardiomegaly with mild pulmonary vascular congestion and trace bilateral pleural effusions. CT abd/pelvis/chest 1. No acute process identified within the chest or abdomen. 2. Mild right and moderate left renal atrophy. 3. Trace right pleural effusion with unchanged areas of increased attenuation within the bilateral lung bases suspicious for prior aspirated barium and/or granulomatous disease with associated areas of pleural-parenchymal scarring and unchanged bronchiolitis. 4. No lobar airspace consolidation to suggest pneumonia. 5. Mildly enlarged and prominent mediastinal lymph nodes may be reactive. Assessment & Plan 72 year old male w/ ESRD on MWF HD admitted this morning w/ concern for sepsis after presenting w/ F to 39.5, cough, dyspnea. Also noted to have some ECG changes on presentation ESRD -no indication at this time for emergent dialysis; plan tx tentatively in AM -he has acceptable chemistries, blood pressures, and volume status at the present time >>>given possibility of active cardiac issue, have cancelled midodrine w/ HD for now; may reinstitute as early as tomorrow depending on clinical status Anemia of chronic disease -will order iron studies for am and use procrit as indicated w/ HD -pls check cbc daily Sepsis -- potential sources include bacteremia, osteomyelitis, pneumonia. it is unlikely that he would have infection related to AVF. -f/u pending blood cultures Elevated troponin -- note this has more than doubled from normal value w/in 5- 6 hrs of presentation. -per primary service Appreciate consult; will follow with you.
--- NOTE | 2017-11-15 12:58 | Progress Note ---
Subjective Date of Service: Nov 15, 2017. Subjective Pt evaluation today including: conversation w/ patient, physical exam, chart review, lab review, review of studies, conversation w/ information systems consultant, review of inpatient medication list Reported no appetite, eating poor, MAXIMUM TEMPERATURE is 38.7. His morning Report mid chest pain which is reproducible in mid sternum for 4 days when asking about "do oyu have chest pain?" Denied dysuria urgency and frequency Deny right arm fistula area has any pain red swelling Emily some skin breakdown in left foot and left anterior madden area, with no drainages History of osteomyelitis in the lower back, no us no any open wound in the back no any tender to palpation Denied diarrhea or constipation Problem List Medical Problems: (1) Elevated troponin I level Status: Acute (2) Hypoxia Status: Acute (3) Nausea Status: Acute Review of Systems Constitutional: + weakness, + fatigue, No fever, No chills, No sweats, No weight loss, No problem reported Eyes: No worsening of vision, No eye pain, No redness, No discharge, No diplopia ENT: No hearing loss, No unusual epistaxis, No nasal symptoms, No sore throat, No tinnitus, No dental problems, No trouble swallowing Respiratory: + shortness of breath, No cough, No sputum, No wheezing, No dyspnea on exertion, No dyspnea at rest, No hemoptysis Cardiac: + chest pain, No orthopnea, No PND, No edema, No claudication, No palpitations Abdomen: No pain, No nausea, No vomiting, No diarrhea, No constipation Musculoskeletal: No joint pain, No muscle pain, No swelling, No calf pain Male : No dysuria, No urinary frequency, No incontinence, No nocturia more than once/night, No slowing stream, No hematuria Neurologic: No memory loss, No paralysis, No weakness, No numbness/tingling, No vertigo, No balance problems Psychiatric: No depression symptoms, No anhedonism, No anxiety, No insomnia, No substance abuse Heme: No abnormal bleeding/bruising, No clotting problems, No swollen lymph nodes, No night sweats Endo: No fatigue, No excessive thirst, No excessive urination Skin: + rash, No itch, No new/changing skin lesions, No color change, No bleeding Objective Vital Signs Date Time Temp Pulse Resp B/P (MAP) Pulse Ox O2 Delivery O2 Flow Rate FiO2 11/15/17 12:01 37.0 78 22 106/55 (72) 100 Nasal Cannula 2.0 11/15/17 12:00 Nasal Cannula 3.0 11/15/17 07:25 37.2 89 18 129/72 100 Nasal Cannula 3.0 11/15/17 07:23 37.8 92 20 119/58 98 11/15/17 06:15 38.0 96 20 127/67 99 Nasal Cannula 2.0 11/15/17 05:00 38.7 102 20 142/70 99 Nasal Cannula 2.0 11/15/17 03:50 98 20 148/73 100 Nasal Cannula 2.0 11/15/17 03:36 99 Nasal Cannula 2.0 11/15/17 03:35 105 11/15/17 02:57 95 Nasal Cannula 3.0 11/15/17 02:47 39.5 106 23 176/73 89 Room Air Physical Exam General Appearance: WD/WN, no apparent distress, + pertinent finding ( generally is okay, pleasant, does not look toxic,) Eyes: normal inspection ENT: normal ENT inspection Neck: supple, no adenopathy Respiratory/Chest: chest non-tender, + decreased breath sounds Cardiovascular: regular rate, rhythm, no edema, no gallop, no JVD, no murmur Abdomen: normal bowel sounds, non tender, soft, no organomegaly Extremities: normal range of motion, non-tender, normal inspection, no pedal edema, normal capillary refill, pelvis stable, + pertinent finding (right arm fistula area skin looks good, no swelling, no tender) 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, no motor/sensory deficits, alert, normal mood/affect, oriented x 3 Skin: + pertinent finding (, left second toe dorsal area minimal, no us no red /tender or drainage) Laboratory Results Last 24 Hours Test 11/15/17 03:10 11/15/17 03:30 11/15/17 03:35 11/15/17 03:50 Influenza Type A Antigen Neg for Influ A Influenza Type B Antigen Neg for Influ B White Blood Count 4.30 K/uL Red Blood Count 3.10 M/uL Hemoglobin 9.3 g/dL Hematocrit 29.4 % Mean Corpuscular Volume 94.8 fL Mean Corpuscular Hemoglobin 30.0 pg Mean Corpuscular Hemoglobin Concent 31.6 g/dl Platelet Count 139 K/uL Mean Platelet Volume 8.1 fL Neutrophils (%) (Auto) 92.8 % Lymphocytes (%) (Auto) 4.0 % Monocytes (%) (Auto) 0.2 % Eosinophils (%) (Auto) 1.9 % Basophils (%) (Auto) 0.2 % Neutrophils # (Auto) 3.99 K/uL Lymphocytes # (Auto) 0.17 K/uL Monocytes # (Auto) 0.01 K/uL Eosinophils # (Auto) 0.08 K/uL Basophils # (Auto) 0.01 K/uL RDW Standard Deviation 48.5 fL RDW Coefficient of Variation 14.1 % Immature Granulocyte % (Auto) 0.9 % Immature Granulocyte # (Auto) 0.04 K/uL Prothrombin Time 10.8 SECONDS Prothromb Time International Ratio 1.0 Activated Partial Thromboplast Time 20.2 SECONDS Partial Thromboplastin Ratio 0.8 Sodium Level 137 mmol/L Potassium Level 3.5 mmol/L Chloride Level 99 mmol/L Carbon Dioxide Level 28 mmol/L Anion Gap 10.0 mmol/L Blood Urea Nitrogen 35 mg/dl Creatinine 6.80 mg/dl Est Creatinine Clear Calc Drug Dose 11.4 ml/min Estimated GFR () 8.5 Estimated GFR (Non- 7.4 BUN/Creatinine Ratio 5.1 Random Glucose 82 mg/dl Calcium Level 8.5 mg/dl Total Bilirubin 0.4 mg/dl Aspartate Amino Transf (AST/SGOT) 11 U/L Alanine Aminotransferase (ALT/SGPT) 13 U/L Alkaline Phosphatase 120 U/L Total Creatine Kinase 42 U/L Creatine Kinase MB 0.6 ng/ml Creatine Kinase MB Ratio 1.4 Troponin I 0.045 ng/ml Total Protein 6.6 gm/dl Albumin 2.7 gm/dl Globulin 3.9 gm/dl Albumin/Globulin Ratio 0.7 Bedside Lactic Acid Venous 2.86 mmol/L Urine Color YELLOW Urine Appearance CLEAR Urine pH >= 9.0 Urine Specific Ransom 1.014 Urine Protein 2+ Urine Glucose (UA) NEG Urine Ketones NEG Urine Occult Blood NEG Urine Nitrite NEG Urine Bilirubin NEG Urine Urobilinogen NEG Urine Leukocyte Esterase NEG Urine WBC (Auto) 1-5 /hpf Urine RBC (Auto) 5-10 /hpf Urine Hyaline Casts (Auto) 1-5 /lpf Urine Epithelial Cells (Auto) 10-20 /lpf Urine Bacteria (Auto) NEG Test 11/15/17 08:12 Troponin I 0.121 ng/ml Assessment and Plan 72 y/o M problems below: Fever, possible sepsis upon admission with fever and mild tachycardia, no leukocytosis, Etiology unknown, source of infection is unknown, May be from aspiration pneumonia following a bout of nausea and vomiting. However CXR NO ACUTE DISEASE, CT of the chest and abdomen both unremarkable There is no signs of infection in dialysis fistula, no obvious signs of infection in the left second toe which was having recent osteomyelitis Has request ID consult, continue Levaquin, Unasyn and vancomycin empirically, and received one dose of Vanc as well. Reproducible chest pain, however with elevated troponin, which possible from from sepsis all from end-stage renal disease, however with some inferior inversion on EKG , and a history of CAD, has request cardiology consult, trends tn ESRD, workers' compensation hearings officer consulted continue dialysis History of Diastolic CHF, age and currently is on dialysis , would be cautious with additional fluid administration. PAF/ COPD: We will continue current care GI and DVT prophylaxis is covered full code Continued [facility] stay due to: multiple IV medications needed Discharge planning: home
[2017-11-15] MEDS ORDERED: HEPARIN SOD 5000 UNIT/0.5 ML CARP SQ SCH (14:00)
[2017-11-15] MEDS: ALBUT/IPRATROP 3MG/0.5MG NEB 3 ML VIAL INH SCH ×2 (14:55→19:00)
[2017-11-15 14:56] VITALS: PULSE 71; O2SAT 97
[2017-11-15] MEDS: BREO ELLIPTA: ORDER AWAITING ACTION SCH ×2 (14:56→23:03)
[2017-11-15 15:19] LABS: CKMB 0.9 ng/ml (0.5-3.6)
[2017-11-15 15:25] VITALS: BP 96/48; PULSE 74; TEMP 36.3; O2SAT 98
[2017-11-15] MEDS ORDERED: SODIUM CHLORIDE 0.65% NA SOLN 45 ML (OCEAN) ONE (16:04)
[2017-11-15 19:00] VITALS: PULSE 66; O2SAT 99
[2017-11-15 20:26] VITALS: BP 102/52; PULSE 63; TEMP 37.4; O2SAT 99
[2017-11-15] MEDS: AMPICILLIN/SULBACTAM SOD INJ 3,000 MG in SODIUM CHLORIDE 0.9% 100ML 100 ML IV SCH (20:50)
[2017-11-15] MEDS: TRAZODONE HCL 100 MG TAB PO SCH (20:51)
[2017-11-15] MEDS ORDERED: TEMAZEPAM 15 MG CAP PO SCH (21:00)
[2017-11-15] MEDS ORDERED: NON-FORMULARY MEDICATION (Acetaminophen/Diphenhydramine (Tylenol Pm) 1 TAB) PO SCH (21:00)
[2017-11-15] MEDS: ALPRAZOLAM 0.25 MG TAB PO SCH (23:02)
[2017-11-16] VITALS (18 sets, daily range): BP systolic 95–138; BP diastolic 36–74; PULSE 58–73; TEMP 36.5–37.5; O2SAT 92–100; Ht 188 cm; Wt 101.2 kg
[2017-11-16] MEDS: ALBUT/IPRATROP 3MG/0.5MG NEB 3 ML VIAL INH SCH ×4 (02:30→19:22)
[2017-11-16 06:21] LABS: HEMATOCRIT 23.2 % (42-52); HEMOGLOBIN 7.4 g/dL (14.0-18.0); MEAN CELL VOLUME 95.1 fL (80-100); MEAN CORPUSCULAR HEMOGLOBIN 30.3 pg (25-34); MEAN CORPUSCULAR HGB CONC 31.9 g/dl (32-36); MEAN PLATELET VOLUME 8.5 fL (7.4-10.4); PLATELET COUNT 103 K/uL (130-400); RED CELL DISTRIBUTION WIDTH CV 14.8 % (11.5-14.5); RED CELL DISTRIBUTION WIDTH SD 51.5 fL (36.4-46.3); WHITE BLOOD COUNT 18.53 K/uL (4.8-10.8)
[2017-11-16 06:38] LABS: BASO % 0.3 %; BASO ABS # 0.05 K/uL (0-0.2); EOS % 1.5 %; EOS ABS # 0.28 K/uL (0-0.5); IG# 0.12 K/uL (0.00-0.02); LYMPH % 5.5 %; LYMPH ABS # 1.02 K/uL (1.2-3.4); MONO % 7.7 %; MONO ABS # 1.43 K/uL (0.11-0.59); NEUT % 84.4 %; NEUT ABS # 15.63 K/uL (1.4-6.5)
[2017-11-16 07:02] LABS: CALCIUM 8.1 mg/dl (8.5-10.1); POTASSIUM 4.5 mmol/L (3.5-5.1)
[2017-11-16] MEDS ORDERED: HEPARIN SOD (PORCINE) 1000 UNIT/ML 10 ML VIAL IV SCH (08:00)
[2017-11-16] MEDS ORDERED: MIDODRINE 2.5 MG TAB PO SCH (08:00)
[2017-11-16] MEDS: HEPARIN SOD (PORCINE) 1000 UNIT/ML 10 ML VIAL IV SCH ×2 (08:00→09:00)
[2017-11-16] MEDS: BREO ELLIPTA: ORDER AWAITING ACTION SCH ×2 (08:00→16:00)
[2017-11-16] MEDS: TIOTROPIUM BROMIDE 5 PUFF/90 MCG INH INH SCH (08:08)
--- NOTE | 2017-11-16 08:09 | Nephrology Progress Note ---
Nephrology Progress Note Date of Service: Nov 16, 2017. Subjective 72 yo male with ESRD with a fistula with a resolving chronic wound of his left toes and presents with rigors and chills and gram negative bacteremia with leukocytosis, troponin leak, lactic acidosis. pt comfortable. has some abdominal pain. denies chest pain. does have some sob but oxygenating well on 2 liters nasal cannula. Objective Date Time Temp Pulse Resp B/P (MAP) Pulse Ox O2 Delivery O2 Flow Rate FiO2 11/16/17 07:16 64 16 99 Nasal Cannula 2.0 11/16/17 04:00 Nasal Cannula 2.0 11/16/17 03:41 37.0 67 16 101/36 (57) 98 Nasal Cannula 2.0 11/16/17 02:00 70 16 95 Nasal Cannula 2.0 11/16/17 00:00 Nasal Cannula 2.0 11/16/17 00:00 37.5 73 17 95/46 (62) 97 Nasal Cannula 1.0 11/15/17 20:26 37.4 63 17 102/52 (69) 99 Nasal Cannula 2.0 11/15/17 20:00 Nasal Cannula 2.0 11/15/17 19:00 66 16 99 Nasal Cannula 2.0 11/15/17 16:00 Nasal Cannula 3.0 11/15/17 15:25 36.3 74 22 96/48 (64) 98 Nasal Cannula 2.0 11/15/17 14:56 71 16 97 Nasal Cannula 2.0 11/15/17 12:01 37.0 78 22 106/55 (72) 100 Nasal Cannula 2.0 11/15/17 12:00 Nasal Cannula 3.0 Physical Exam: General-aaox3 Eyes-no scleral icterus ENT-mmm Neck-supple Lungs-right sided rales Heart-rrr Abdomen-mild abdominal tenderness Extremities-no c/c/e Neuro-nonfocal Current Inpatient Medications Medications (Trade) Dose Ordered Sig/Merari Route Start Time Stop Time Status Last Admin Dose Admin Alprazolam (Xanax Tab) 0.25 mg HS PO 11/15/17 21:00 12/15/17 20:59 11/15/17 23:02 0.25 MG Amiodarone HCl (Cordarone Tab) 200 mg DAILY PO 11/15/17 09:00 12/15/17 08:59 11/15/17 09:03 200 MG Aspirin (Ecotrin Tab) 81 mg DAILY PO 11/15/17 09:00 12/15/17 08:59 11/15/17 09:03 81 MG Atorvastatin Calcium (Lipitor Tab) 40 mg DAILY PO 11/15/17 09:00 12/15/17 08:59 11/15/17 09:03 40 MG Calcium Acetate (Phoslo Cap) 667 mg TIDM PO 11/15/17 11:30 12/15/17 11:29 11/15/17 16:43 667 MG Carvedilol (Coreg Tab) 3.125 mg BID PO 11/15/17 09:00 12/15/17 08:59 11/15/17 20:50 3.125 MG Famotidine (Pepcid Tab) 20 mg DAILY PO 11/15/17 09:00 12/15/17 08:59 11/15/17 09:04 20 MG Ammonium Lactate (Lac-Hydrin) 1 appl Q12 EXT 11/15/17 09:00 12/15/17 08:59 11/15/17 20:52 1 APPL Lidocaine (Lidoderm Patch 5%) 1 patch DAILY TD 11/15/17 09:00 12/15/17 08:59 Paroxetine HCl (pAXil TAB) 20 mg DAILY PO 11/15/17 09:00 12/15/17 08:59 11/15/17 09:04 20 MG Tiotropium Radnor (Spiriva Handihaler Inhaler) 1 puff DAILY INH 11/15/17 09:00 12/15/17 08:59 11/15/17 09:03 1 PUFF Trazodone HCl (Desyrel Tab) 100 mg HS PO 11/15/17 21:00 12/15/17 20:59 11/15/17 20:51 100 MG Miscellaneous Information (Order Awaiting Action) 1 ea QS N/A 11/15/17 16:00 12/15/17 15:59 Pantoprazole Sodium (Protonix Tab) 40 mg DAILY PO 11/15/17 09:00 12/15/17 08:59 11/15/17 09:04 40 MG Polyethylene (Miralax Powder Packet) 17 gm BID PO 11/15/17 09:00 12/15/17 08:59 Miscellaneous (Remove Lidoderm Patch) 1 ea DAILY@21 N/A 11/15/17 21:00 12/15/17 20:59 Acetaminophen (Tylenol Tab) 650 mg Q4H PRN PO 11/15/17 06:30 12/15/17 06:29 11/15/17 08:20 650 MG Al Hydrox/Mg Hydrox/Simethicone (Maalox Max Susp) 15 ml Q4H PRN PO 11/15/17 06:30 12/15/17 06:29 Magnesium Hydroxide (Milk Of Magnesia Susp) 30 ml Q12H PRN PO 11/15/17 06:30 12/15/17 06:29 Ondansetron HCl (Zofran Inj) 4 mg Q6H PRN IV 11/15/17 06:30 12/15/17 06:29 Nitroglycerin (Nitrostat Tab) 0.4 mg UD PRN SL 11/15/17 06:30 12/15/17 06:29 Polyethylene (Miralax Powder Packet) 17 gm DAILY PRN PO 11/15/17 06:30 12/15/17 06:29 Albuterol/ Ipratropium (Duoneb) 3 ml Q6R INH 11/15/17 09:00 12/15/17 08:59 11/16/17 07:15 3 ML Albuterol Sulfate (Ventolin 0.083% 2.5MG/3ML Neb) 2.5 mg Q4H PRN INH 11/15/17 06:45 12/15/17 06:44 Miscellaneous Information (Consult) 1 ea UD PRN N/A 11/15/17 06:45 12/15/17 06:44 Ampicillin Sodium/ Sulbactam Sodium 3000 mg/Sodium Chloride 108 ml @ 200 mls/hr Q24H IV 11/15/17 21:00 11/22/17 20:59 11/15/17 20:50 200 MLS/HR Levofloxacin (Consult) 1 ea UD PRN N/A 11/15/17 08:45 12/15/17 08:44 Ampicillin Sodium/ Sulbactam Sodium (Consult) 1 ea UD PRN N/A 11/15/17 08:45 12/15/17 08:44 Levofloxacin 500 mg/Prmx 150 ml @ 100 mls/hr Q48H IV 11/17/17 09:30 11/24/17 09:29 Heparin Sodium (Porcine) (Heparin Iv Bolus) 400 unit Q1H IV 11/16/17 08:00 11/16/17 10:01 Epoetin Eugenio (Procrit Inj) 10,000 units 0900 ONCE IV. 11/16/17 09:00 11/16/17 09:01 Last 24 Hours Test 11/15/17 08:12 11/15/17 14:00 11/15/17 14:30 11/16/17 05:46 Troponin I 0.121 ng/ml 0.290 ng/ml Creatine Kinase MB Ratio Hemoglobin 8.5 g/dL 7.4 g/dL Erythrocyte Sedimentation Rate 13 mm/hr Lactic Acid Level 2.7 mmol/L Creatine Kinase MB 0.9 ng/ml C-Reactive Protein 13.20 mg/dl Procalcitonin > 200.00 ng/ml White Blood Count 18.53 K/uL Red Blood Count 2.44 M/uL Hematocrit 23.2 % Mean Corpuscular Volume 95.1 fL Mean Corpuscular Hemoglobin 30.3 pg Mean Corpuscular Hemoglobin Concent 31.9 g/dl Platelet Count 103 K/uL Mean Platelet Volume 8.5 fL Neutrophils (%) (Auto) 84.4 % Lymphocytes (%) (Auto) 5.5 % Monocytes (%) (Auto) 7.7 % Eosinophils (%) (Auto) 1.5 % Basophils (%) (Auto) 0.3 % Neutrophils # (Auto) 15.63 K/uL Lymphocytes # (Auto) 1.02 K/uL Monocytes # (Auto) 1.43 K/uL Eosinophils # (Auto) 0.28 K/uL Basophils # (Auto) 0.05 K/uL RDW Standard Deviation 51.5 fL RDW Coefficient of Variation 14.8 % Immature Granulocyte % (Auto) 0.6 % Immature Granulocyte # (Auto) 0.12 K/uL Red Blood Cell Morphology Unremarkable Sodium Level 132 mmol/L Potassium Level 4.5 mmol/L Chloride Level 95 mmol/L Carbon Dioxide Level 26 mmol/L Anion Gap 11.0 mmol/L Blood Urea Nitrogen 52 mg/dl Creatinine 8.00 mg/dl Est Creatinine Clear Calc Drug Dose 9.7 ml/min Estimated GFR () 7.0 Estimated GFR (Non- 6.1 BUN/Creatinine Ratio 6.5 Random Glucose 73 mg/dl Calcium Level 8.1 mg/dl Magnesium Level 1.7 mg/dl Iron Level 18 mcg/dl Total Iron Binding Capacity 157 mcg/dl Transferrin 139 mg/dl Transferrin % Saturation 9 % Hepatitis B Surface Antigen NEG Hepatitis B Surface Antibody POS Assessment & Plan ESRD-normally dialyzes m-w-f. given gram negative bacteremia would prefer to wait till tomorrow when he may be more stable to tolerate dialysis. for now, transfuse off dialysis and if pt becomes fluid overloaded this afternoon or tonight--could dialyze today if necessary.
[2017-11-16] MEDS: PANTOprazole SOD 40 MG TAB PO SCH (08:10)
[2017-11-16] MEDS: AMIODARONE 200 MG TAB PO SCH (08:10)
[2017-11-16] MEDS: CALCIUM ACETATE 667MG GELCAP PO SCH ×3 (08:10→16:41)
[2017-11-16] MEDS: ATORVASTATIN 40 MG TAB PO SCH (08:11)
[2017-11-16] MEDS: FAMOTIDINE 20 MG TAB PO SCH (08:11)
[2017-11-16] MEDS: PAROXETINE 20 MG TAB PO SCH (08:12)
[2017-11-16] MEDS: CARVEDILOL 3.125 MG TAB PO SCH ×2 (08:12→21:53)
[2017-11-16] MEDS: ASPIRIN 81 MG ECTAB PO SCH (08:12)
[2017-11-16] MEDS: AMMONIUM LACTATE 12% LOTION 225 GM BTL EXT SCH ×2 (08:13→21:52)
[2017-11-16] MEDS: POLYETHYLENE (MIRALAX) 17 GM PACK PO SCH ×3 (08:16→21:53)
[2017-11-16] MEDS: LIDODERM (LIDOCAINE) PATCH 5% TD SCH (09:00)
[2017-11-16] MEDS ORDERED: EPOETIN ALFA 10,000 UNITS/ML VIAL IV. ONE (09:00)
--- NOTE | 2017-11-16 10:05 | CARDIOLOGY CONSULTATION ---
DATE OF CONSULTATION: 11/16/2017 CONSULTATION REQUESTED BY: Dr. kAins. REASON FOR CONSULTATION: Elevated troponin. HISTORY OF PRESENT ILLNESS: Mr. Perdue is a 72-year-old man with a history of coronary artery disease status post CABG and prior RCA stenting in 2005, atrial fibrillation/atrial flutter status post AFib ablation with pulmonary vein isolation, prior mitral valve repair and peripheral arterial disease status post fem-pop bypass and AAA repair as well as end-stage renal disease on dialysis, who was admitted yesterday in the setting of fever, sepsis and abdominal pain. Cardiology was consulted today due to elevated troponin. As an outpatient the patient is followed by Dr. Araujo. He was last seen back in July. More recently, he states that he has been in his usual state of health until the day prior to admission when he developed shaking chills with some associated abdominal pain, nausea and generally feeling unwell. With this he also developed some progressive shortness of breath. Denied any significant chest pain. He presented to the Emergency Department where it was febrile to 39.5 and had a leukocytosis with left shift. Blood cultures have subsequently grown gram-negative bacilli. He has been hemodynamically stable on broad-spectrum antibiotics. His initial troponin was negative, but this subsequently risen up to 0.29. With this he has had no chest pain. His EKG shows sinus tachycardia with nonspecific ST changes, unchanged from prior. PAST MEDICAL HISTORY: 1. Coronary artery disease status post CABG and RCA stent in 2005. 2. Atrial fibrillation/flutter on amiodarone every other day, not anticoagulated due to noncompliance/frequent falls. 3. Status post pulmonary vein isolation. 4. Hypertension. 5. Hyperlipidemia. 6. Obstructive sleep apnea on CPAP. 7. End-stage renal disease on dialysis. 8. COPD. 9. Prior mitral valve repair. 10. Chronic venous insufficiency, status post saphenous vein stripping. 11. Prior subdural hematoma. 12. Prior peripheral arterial disease status post fem-pop bypass. 13. Status post AAA repair. 14. Status post cholecystectomy. 15. Status post bilateral total knee arthroplasties. 16. Chronic wounds on the 3rd and 4th toes of his left foot. 17. GERD. FAMILY HISTORY: Father with coronary artery disease in his mid 50s. SOCIAL HISTORY: He is . He has 1 daughter and 4 grandchildren. He lives with his sister here at [place] and previously lived in the [place] area. Denies any smoking, alcohol or illicit drugs. HOME MEDICATIONS: Include Xanax, Breo, DuoNeb, Proventil inhaler, Spiriva, aspirin 81, atorvastatin 40, paroxetine, trazodone, PhosLo, famotidine, Omeprazole, Tylenol, amiodarone 200 every other day, carvedilol 3.125, midodrine, temazepam, cyanocobalamin and nitroglycerin tabs. ALLERGIES: ALLERGIC TO TRAMADOL, OXYCODONE AND PERCOCET. REVIEW OF SYSTEMS: Ten point review of systems complete and otherwise negative unless stated in HPI. PHYSICAL EXAMINATION: VITAL SIGNS: Temperature 37.0, pulse 73, blood pressure 138/54, he is satting 97% on 2 liters. GENERAL: The patient appears comfortable in no acute distress. HEENT: Sclerae are anicteric. Oropharynx is clear. His mucous membranes are moist. NECK: Supple. He has no jugular venous distention. LUNGS: He has a few crackles at the right base, otherwise lungs are clear. HEART: He has distant heart sounds but is regular with a 2/6 holosystolic murmur heard best at the apex. ABDOMEN: Soft. He has mild tenderness over the epigastric region but otherwise no hepatosplenomegaly. EXTREMITIES: Warm. He has evidence of chronic venous insufficiency with small superficial ulceration on the right anterior madden. He has a small less than 1 cm superficial healed ulceration with eschar over the third digit on his left foot with no surrounding erythema. He has intact PT pulse on the left, diminished DP pulse on the left, diminished DP and PT pulses on the right. NEUROLOGIC: Nonfocal. PSYCHIATRIC: He is alert and appropriate. LABORATORY DATA: White blood cell count 18.5, hemoglobin of 7.4, platelets of 103. His sodium was 132, his creatinine is 8, BUN of 52. His lactate was elevated initially at 2.7. His troponin went from 0.45 to 0.121 to 0.29. His procalcitonin level was greater than 200 and C-reactive protein is 13.2. UA is unremarkable. Influenza serologies were negative. Blood cultures were positive for gram negative bacilli. IMAGING: Chest x-ray showed mild pulmonary congestion with cardiomegaly. Chest CT showed no acute cardiopulmonary process. Abdominal CT showed no acute process. Most recent echo was done in July of 2017 showed low normal LV function with an EF of 50-55%. He had severe LVH, grade 2 diastolic dysfunction and mild RV dysfunction. IMPRESSION AND PLAN: 1. Gram negative bacteremia/sepsis. 2. End-stage renal disease on dialysis. 3. Coronary artery disease status post coronary artery bypass grafting and prior right coronary artery stenting. 4. Mildly elevated troponin. 5. Anemia. 6. Thrombocytopenia. 7. Peripheral arterial disease with longstanding wounds and prior osteomyelitis. Mr. Perdue is here with gram negative bacteremia and sepsis and was incidentally found to have a mildly elevated troponin. The patient has had no chest pain during his presentation and his EKG is unremarkable. In the setting of sepsis, anemia, his end-stage renal disease, suspicion that the current troponin elevation represents acute coronary syndrome is very low. Would continue to treat his acute medical issues as doing. I would repeat an echocardiogram otherwise no other additional risk stratification is needed at this time. RECOMMENDATIONS: 1. Repeat echocardiogram. 2. Continue aspirin and high intensity statin. 3. Continue home amiodarone. 4. Continue beta maxim as blood pressure allows. We will continue to follow. Thank you for consultation. YULY
--- NOTE | 2017-11-16 10:38 | Progress Note ---
Progress Note Date of Service Nov 16, 2017. Progress Note ID Consult Dictated #[id number] A/P: 1. 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 Leukocytosis 3. Fever - resolved -Repeat blood cultures -Suggest wound care consult for toe wound/osteo -Continue abx, adjust based on final ID/sensitivity -thank you
--- NOTE | 2017-11-16 11:46 | INFECT. DISEASE CONSULTATION ---
DATE OF CONSULTATION: 11/16/2017 HISTORY OF PRESENT ILLNESS: This is a 72-year-old gentleman who was admitted to the hospital after he had nausea and vomiting at home. He then had an episode of shortness of breath with subjective fever at home. He did come to the Emergency Room for this reason and was found to be febrile with a temperature of 39.5 in the ER. He has since been afebrile. He initially had a white blood cell count of 4, but this has increased today to 18. His sed rate is normal at 13. His UA was negative. His flu swab was negative. He does have a history of end-stage renal disease on dialysis and his creatinine is 8 this morning. His procalcitonin was greater than 200. A CAT scan of the chest and abdomen was done in the Emergency Room and was unremarkable for any acute infection. He did have blood cultures as part of his initial workup and they are growing gram-negative rods. He has been on Levaquin and Unasyn since admission to the hospital. He does have a history of a left second toe infection, for which he follows at the wound care center. He states this began in July. He was unable to tell me if he is on any antibiotics on an outpatient basis. He currently states he is feeling better today. He denies any fevers or chills. He denies any additional nausea or vomiting. He denies any chest pain, cough, or shortness of breath. He denies any pain in the foot. He denies any purulent drainage from the wound on his toe. His remaining review of systems is unremarkable. PAST MEDICAL HISTORY: Significant for heart failure, end-stage renal disease with dialysis, AAA which has subsequently been repaired, coronary artery disease with a history of CABG, AFib with ablation, history of toe osteomyelitis, anemia, peripheral vascular disease, depression or anxiety. PAST SURGICAL HISTORY: Again is significant for repair of AAA, ablation for AFib, history of CABG, fem-pop bypass and a dialysis access in the right upper extremity. FAMILY HISTORY: Noncontributory. SOCIAL HISTORY: Negative for tobacco use, alcohol use or drug use. ALLERGIES: TRAMADOL AND OXYCODONE. CURRENT MEDICATIONS: Include Levaquin, Xanax, trazodone, Unasyn, amiodarone, Ecotrin, Lipitor, Coreg, Pepcid, Paxil, Spiriva, Protonix, MiraLax, DuoNeb, Ventolin, Tylenol, milk of magnesia, Zofran and MiraLax. PHYSICAL EXAMINATION: VITAL SIGNS: He currently is afebrile, pulse 73, respiratory rate 18, blood pressure 138/54, and oxygen saturation is 97%-99% on 2 liters. GENERAL: He is awake, alert and oriented x3. He is in no acute distress. HEENT: Mucous membranes are dry. LUNGS: Clear. HEART: Regular. ABDOMEN: Soft and nondistended. EXTREMITIES: There is no lower extremity edema. Examination of the left foot does reveal ulceration over the second toe. There is no purulent drainage, warmth, erythema or bleeding. Again, blood cultures from the are growing gram negative rods in 2/2 sets. LABORATORY STUDIES: CBC today reveals a white blood cell count of 18.5, hemoglobin 7.4 down from 9.3, and platelets are 103. Sed rate is 13. Chemistry panel reveals a sodium of 132, potassium 4.5, chloride 95, bicarbonate 26, BUN 52, creatinine 8, and glucose is 73. Lactic acid was 2.7 yesterday. Procalcitonin was over 200. Troponin is 0.2. UA is negative. Flu swab was negative. IMAGING: As above. LABORATORY DATA: Review of old micro reveals a toe culture from 07/14/2017, which grew MSSA. The patient was last seen by infectious diseases on the by Dr. Pearl. He was given a dose of Dalvance 1500 mg and was to be followed this week in the wound center. MRI from 09/24/2017 does show early osteomyelitis. ASSESSMENT AND PLAN: Gram negative septicemia. Potential sources could include the wound; however, he does not have any previous cultures growing gram negative rods. Other options would include his dialysis access. Repeat blood cultures will be obtained today. I would suggest a wound care consult while the patient is hospitalized for additional local wound management. He will be maintained on antibiotics and cultures will be followed. Additional antibiotic recommendations will be made upon ID and sensitivity.
--- NOTE | 2017-11-16 18:44 | Progress Note ---
Subjective Date of Service: Nov 16, 2017. Subjective Pt evaluation today including: conversation w/ patient, physical exam, lab review, conversation w/ building consultant, review of inpatient medication list Pain: no pain PO Intake: adequate Voiding: no voiding problems patient sitting up in bed, receiving blood transfusion, no issues no fevers, no pain, breathing is stable reviewed labs, WBC up to 18k, Hb down at 7.4, electrolytes stable discussed with Dr. Brambila, will give PRBC transfusion, hold on HD today reviewed recommendations from Dr. Ye, repeat blood cultures drawn original cultures growing GN bacilli, both sets Problem List Medical Problems: (1) Elevated troponin I level Status: Acute (2) Hypoxia Status: Acute (3) Nausea Status: Acute Review of Systems Constitutional: + weakness, + fatigue Neurologic: + weakness Skin: + problem reported (left 2nd toe open wound) All Other Systems: Reviewed and Negative Medications Current Inpatient Medications Medications (Trade) Dose Ordered Sig/Merari Route Start Time Stop Time Status Last Admin Dose Admin Alprazolam (Xanax Tab) 0.25 mg HS PO 11/15/17 21:00 12/15/17 20:59 11/15/17 23:02 0.25 MG Amiodarone HCl (Cordarone Tab) 200 mg DAILY PO 11/15/17 09:00 12/15/17 08:59 11/16/17 08:10 200 MG Aspirin (Ecotrin Tab) 81 mg DAILY PO 11/15/17 09:00 12/15/17 08:59 11/16/17 08:12 81 MG Atorvastatin Calcium (Lipitor Tab) 40 mg DAILY PO 11/15/17 09:00 12/15/17 08:59 11/16/17 08:11 40 MG Calcium Acetate (Phoslo Cap) 667 mg TIDM PO 11/15/17 11:30 12/15/17 11:29 11/16/17 16:41 667 MG Carvedilol (Coreg Tab) 3.125 mg BID PO 11/15/17 09:00 12/15/17 08:59 11/16/17 08:12 3.125 MG Famotidine (Pepcid Tab) 20 mg DAILY PO 11/15/17 09:00 12/15/17 08:59 11/16/17 08:11 20 MG Ammonium Lactate (Lac-Hydrin) 1 appl Q12 EXT 11/15/17 09:00 12/15/17 08:59 11/16/17 08:13 1 APPL Lidocaine (Lidoderm Patch 5%) 1 patch DAILY TD 11/15/17 09:00 12/15/17 08:59 Paroxetine HCl (pAXil TAB) 20 mg DAILY PO 11/15/17 09:00 12/15/17 08:59 11/16/17 08:12 20 MG Tiotropium [place] (Spiriva Handihaler Inhaler) 1 puff DAILY INH 11/15/17 09:00 12/15/17 08:59 11/16/17 08:08 1 PUFF Trazodone HCl (Desyrel Tab) 100 mg HS PO 11/15/17 21:00 12/15/17 20:59 11/15/17 20:51 100 MG Miscellaneous Information (Order Awaiting Action) 1 ea QS N/A 11/15/17 16:00 12/15/17 15:59 Pantoprazole Sodium (Protonix Tab) 40 mg DAILY PO 11/15/17 09:00 12/15/17 08:59 11/16/17 08:10 40 MG Polyethylene (Miralax Powder Packet) 17 gm BID PO 11/15/17 09:00 12/15/17 08:59 Miscellaneous (Remove Lidoderm Patch) 1 ea DAILY@21 N/A 11/15/17 21:00 12/15/17 20:59 Acetaminophen (Tylenol Tab) 650 mg Q4H PRN PO 11/15/17 06:30 12/15/17 06:29 11/15/17 08:20 650 MG Al Hydrox/Mg Hydrox/Simethicone (Maalox Max Susp) 15 ml Q4H PRN PO 11/15/17 06:30 12/15/17 06:29 Magnesium Hydroxide (Milk Of Magnesia Susp) 30 ml Q12H PRN PO 11/15/17 06:30 12/15/17 06:29 Ondansetron HCl (Zofran Inj) 4 mg Q6H PRN IV 11/15/17 06:30 12/15/17 06:29 Nitroglycerin (Nitrostat Tab) 0.4 mg UD PRN SL 11/15/17 06:30 12/15/17 06:29 Polyethylene (Miralax Powder Packet) 17 gm DAILY PRN PO 11/15/17 06:30 12/15/17 06:29 Albuterol/ Ipratropium (Duoneb) 3 ml Q6R INH 11/15/17 09:00 12/15/17 08:59 11/16/17 14:16 3 ML Albuterol Sulfate (Ventolin 0.083% 2.5MG/3ML Neb) 2.5 mg Q4H PRN INH 11/15/17 06:45 12/15/17 06:44 Miscellaneous Information (Consult) 1 ea UD PRN N/A 11/15/17 06:45 12/15/17 06:44 Ampicillin Sodium/ Sulbactam Sodium 3000 mg/Sodium Chloride 108 ml @ 200 mls/hr Q24H IV 11/15/17 21:00 11/22/17 20:59 11/15/17 20:50 200 MLS/HR Levofloxacin (Consult) 1 ea UD PRN N/A 11/15/17 08:45 12/15/17 08:44 Ampicillin Sodium/ Sulbactam Sodium (Consult) 1 ea UD PRN N/A 11/15/17 08:45 12/15/17 08:44 Levofloxacin 500 mg/Prmx 150 ml @ 100 mls/hr Q48H IV 11/17/17 09:30 11/24/17 09:29 Objective Vital Signs Date Time Temp Pulse Resp B/P (MAP) Pulse Ox O2 Delivery O2 Flow Rate FiO2 11/16/17 16:35 68 18 116/60 100 11/16/17 16:00 Nasal Cannula 2.0 11/16/17 15:35 36.8 65 16 125/63 99 11/16/17 15:35 36.8 61 16 124/56 99 11/16/17 15:30 36.6 60 18 130/65 (86) 98 Nasal Cannula 2.0 11/16/17 15:05 36.8 58 16 124/59 98 11/16/17 14:16 59 16 99 Nasal Cannula 2.0 11/16/17 14:06 36.8 61 18 118/56 99 11/16/17 13:06 36.8 61 18 122/58 98 11/16/17 12:36 37.2 63 18 121/74 98 11/16/17 12:15 37.1 64 20 110/49 (69) 99 Room Air 11/16/17 12:00 Nasal Cannula 2.0 11/16/17 08:12 37.0 73 18 138/54 (82) 97 Nasal Cannula 2.0 11/16/17 08:00 Nasal Cannula 2.0 11/16/17 07:16 64 16 99 Nasal Cannula 2.0 11/16/17 04:00 Nasal Cannula 2.0 11/16/17 03:41 37.0 67 16 101/36 (57) 98 Nasal Cannula 2.0 11/16/17 02:00 70 16 95 Nasal Cannula 2.0 11/16/17 00:00 Nasal Cannula 2.0 11/16/17 00:00 37.5 73 17 95/46 (62) 97 Nasal Cannula 1.0 11/15/17 20:26 37.4 63 17 102/52 (69) 99 Nasal Cannula 2.0 11/15/17 20:00 Nasal Cannula 2.0 11/15/17 19:00 66 16 99 Nasal Cannula 2.0 Physical Exam General Appearance: WD/WN, no apparent distress Eyes: normal inspection, EOMI, sclerae normal ENT: normal ENT inspection, hearing grossly normal, pharynx normal Neck: supple, no adenopathy, no JVD, trachea midline Respiratory/Chest: chest non-tender, lungs clear, normal breath sounds, no respiratory distress, no accessory muscle use Cardiovascular: regular rate, rhythm, no edema, no gallop, no JVD, no murmur Abdomen: normal bowel sounds, non tender, soft, no organomegaly Extremities: normal range of motion, non-tender, normal inspection, no pedal edema, no calf tenderness, pelvis stable Neurologic/Psychiatric: 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, no motor/sensory deficits, alert, normal mood/affect, oriented x 3 Skin: + pertinent finding (wounds on feet, right 2nd toe with eschar on distal toe, non tender) Laboratory Results Last 24 Hours Test 11/16/17 05:46 11/16/17 11:33 White Blood Count 18.53 K/uL Red Blood Count 2.44 M/uL Hemoglobin 7.4 g/dL Hematocrit 23.2 % Mean Corpuscular Volume 95.1 fL Mean Corpuscular Hemoglobin 30.3 pg Mean Corpuscular Hemoglobin Concent 31.9 g/dl Platelet Count 103 K/uL Mean Platelet Volume 8.5 fL Neutrophils (%) (Auto) 84.4 % Lymphocytes (%) (Auto) 5.5 % Monocytes (%) (Auto) 7.7 % Eosinophils (%) (Auto) 1.5 % Basophils (%) (Auto) 0.3 % Neutrophils # (Auto) 15.63 K/uL Lymphocytes # (Auto) 1.02 K/uL Monocytes # (Auto) 1.43 K/uL Eosinophils # (Auto) 0.28 K/uL Basophils # (Auto) 0.05 K/uL RDW Standard Deviation 51.5 fL RDW Coefficient of Variation 14.8 % Immature Granulocyte % (Auto) 0.6 % Immature Granulocyte # (Auto) 0.12 K/uL Red Blood Cell Morphology Unremarkable Sodium Level 132 mmol/L Potassium Level 4.5 mmol/L Chloride Level 95 mmol/L Carbon Dioxide Level 26 mmol/L Anion Gap 11.0 mmol/L Blood Urea Nitrogen 52 mg/dl Creatinine 8.00 mg/dl Est Creatinine Clear Calc Drug Dose 9.7 ml/min Estimated GFR () 7.0 Estimated GFR (Non- 6.1 BUN/Creatinine Ratio 6.5 Random Glucose 73 mg/dl Calcium Level 8.1 mg/dl Magnesium Level 1.7 mg/dl Iron Level 18 mcg/dl Total Iron Binding Capacity 157 mcg/dl Transferrin 139 mg/dl Transferrin % Saturation 9 % Hepatitis B Surface Antigen NEG Hepatitis B Surface Antibody POS Random Vancomycin Level 18.0 mcg/ml Assessment and Plan 72 y/o M with - Gram negative bacteremia: unclear source could be dialysis access site, right 2nd toe, no pneumonia, no UTI on initial work up appreciate ID note, repeat cultures drawn today WBC up to 18k, no fevers if persistent cultures, may need to get echo, no murmurs on exam continue Levaquin and Unasyn - Anemia; likely of chronic disease, ESRD transfuse two units of PRBC today for Hb of 7.4, repeat tomorrow Reproducible chest pain, however with elevated troponin, which possible from from sepsis all from end-stage renal disease, however with some inferior inversion on EKG , and a history of CAD appreciate consult from Dr. Fuentes, no evidence of ACS, elevated troponin due to demand ischemia, ESRD continue statins, antiplatelets ESRD, product builder consulted continue dialysis, plan for HD tomorrow History of Diastolic CHF PAF/ COPD: We will continue current care GI and DVT prophylaxis is covered full code Continued [facility] stay due to: multiple IV medications needed Discharge planning: home
[2017-11-16] MEDS: AMPICILLIN/SULBACTAM SOD INJ 3,000 MG in SODIUM CHLORIDE 0.9% 100ML 100 ML IV SCH (21:52)
[2017-11-16] MEDS: TRAZODONE HCL 100 MG TAB PO SCH (21:53)
[2017-11-16] MEDS: ALPRAZOLAM 0.25 MG TAB PO SCH (21:53)
[2017-11-17] VITALS (26 sets, daily range): BP systolic 115–171; BP diastolic 57–95; PULSE 66–105; TEMP 36.6–37.4; O2SAT 94–98
[2017-11-17] MEDS: ALBUT/IPRATROP 3MG/0.5MG NEB 3 ML VIAL INH SCH ×2 (02:15→07:19)
--- NOTE | 2017-11-17 07:25 | Nephrology Progress Note ---
Nephrology Progress Note Date of Service: Nov 17, 2017. Subjective 72 yo male with ESRD with a resolving chronic wound of his left toes who last week commented on how well he was feeling. now with gram negative sepsis and extreme fatigue. tolerated blood transfusion well. appetite is good. oxygenating well. Objective Date Time Temp Pulse Resp B/P (MAP) Pulse Ox O2 Delivery O2 Flow Rate FiO2 11/17/17 04:04 37.1 66 17 136/65 (88) 96 Nasal Cannula 2.0 11/17/17 04:00 Nasal Cannula 2.0 11/17/17 02:25 89 16 94 Room Air 11/16/17 23:59 Nasal Cannula 2.0 11/16/17 23:46 37.0 65 17 130/66 (87) 97 Nasal Cannula 2.0 11/16/17 20:00 Nasal Cannula 2.0 11/16/17 19:23 64 16 92 Room Air 11/16/17 19:21 36.5 67 18 127/62 (83) 93 Room Air 11/16/17 17:35 36.8 59 123/61 11/16/17 16:35 68 18 116/60 100 11/16/17 16:00 Nasal Cannula 2.0 11/16/17 15:35 36.8 65 16 125/63 99 11/16/17 15:35 36.8 61 16 124/56 99 11/16/17 15:30 36.6 60 18 130/65 (86) 98 Nasal Cannula 2.0 11/16/17 15:05 36.8 58 16 124/59 98 11/16/17 14:16 59 16 99 Nasal Cannula 2.0 11/16/17 14:06 36.8 61 18 118/56 99 11/16/17 13:06 36.8 61 18 122/58 98 11/16/17 12:36 37.2 63 18 121/74 98 11/16/17 12:15 37.1 64 20 110/49 (69) 99 Room Air 11/16/17 12:00 Nasal Cannula 2.0 11/16/17 08:12 37.0 73 18 138/54 (82) 97 Nasal Cannula 2.0 11/16/17 08:00 Nasal Cannula 2.0 Physical Exam: General-aaox3 Eyes-no scleral icterus ENT-mmm Neck-supple Lungs-diminished at the bases Heart-regular Abdomen-nontender Extremities-no c/c/e Neuro-nonfocal Current Inpatient Medications Medications (Trade) Dose Ordered Sig/Merari Route Start Time Stop Time Status Last Admin Dose Admin Alprazolam (Xanax Tab) 0.25 mg HS PO 11/15/17 21:00 12/15/17 20:59 11/16/17 21:53 0.25 MG Amiodarone HCl (Cordarone Tab) 200 mg DAILY PO 11/15/17 09:00 12/15/17 08:59 11/16/17 08:10 200 MG Aspirin (Ecotrin Tab) 81 mg DAILY PO 11/15/17 09:00 12/15/17 08:59 11/16/17 08:12 81 MG Atorvastatin Calcium (Lipitor Tab) 40 mg DAILY PO 11/15/17 09:00 12/15/17 08:59 11/16/17 08:11 40 MG Calcium Acetate (Phoslo Cap) 667 mg TIDM PO 11/15/17 11:30 12/15/17 11:29 11/16/17 16:41 667 MG Carvedilol (Coreg Tab) 3.125 mg BID PO 11/15/17 09:00 12/15/17 08:59 11/16/17 21:53 3.125 MG Famotidine (Pepcid Tab) 20 mg DAILY PO 11/15/17 09:00 12/15/17 08:59 11/16/17 08:11 20 MG Ammonium Lactate (Lac-Hydrin) 1 appl Q12 EXT 11/15/17 09:00 12/15/17 08:59 11/16/17 21:52 1 APPL Lidocaine (Lidoderm Patch 5%) 1 patch DAILY TD 11/15/17 09:00 12/15/17 08:59 Paroxetine HCl (pAXil TAB) 20 mg DAILY PO 11/15/17 09:00 12/15/17 08:59 11/16/17 08:12 20 MG Tiotropium [place] (Spiriva Handihaler Inhaler) 1 puff DAILY INH 11/15/17 09:00 12/15/17 08:59 11/16/17 08:08 1 PUFF Trazodone HCl (Desyrel Tab) 100 mg HS PO 11/15/17 21:00 12/15/17 20:59 11/16/17 21:53 100 MG Miscellaneous Information (Order Awaiting Action) 1 ea QS N/A 11/15/17 16:00 12/15/17 15:59 Pantoprazole Sodium (Protonix Tab) 40 mg DAILY PO 11/15/17 09:00 12/15/17 08:59 11/16/17 08:10 40 MG Polyethylene (Miralax Powder Packet) 17 gm BID PO 11/15/17 09:00 12/15/17 08:59 Miscellaneous (Remove Lidoderm Patch) 1 ea DAILY@21 N/A 11/15/17 21:00 12/15/17 20:59 11/16/17 21:00 1 EA Acetaminophen (Tylenol Tab) 650 mg Q4H PRN PO 11/15/17 06:30 12/15/17 06:29 11/15/17 08:20 650 MG Al Hydrox/Mg Hydrox/Simethicone (Maalox Max Susp) 15 ml Q4H PRN PO 11/15/17 06:30 12/15/17 06:29 Magnesium Hydroxide (Milk Of Magnesia Susp) 30 ml Q12H PRN PO 11/15/17 06:30 12/15/17 06:29 Ondansetron HCl (Zofran Inj) 4 mg Q6H PRN IV 11/15/17 06:30 12/15/17 06:29 Nitroglycerin (Nitrostat Tab) 0.4 mg UD PRN SL 11/15/17 06:30 12/15/17 06:29 Polyethylene (Miralax Powder Packet) 17 gm DAILY PRN PO 11/15/17 06:30 12/15/17 06:29 Albuterol/ Ipratropium (Duoneb) 3 ml Q6R INH 11/15/17 09:00 12/15/17 08:59 11/17/17 02:15 3 ML Albuterol Sulfate (Ventolin 0.083% 2.5MG/3ML Neb) 2.5 mg Q4H PRN INH 11/15/17 06:45 12/15/17 06:44 Miscellaneous Information (Consult) 1 ea UD PRN N/A 11/15/17 06:45 12/15/17 06:44 Ampicillin Sodium/ Sulbactam Sodium 3000 mg/Sodium Chloride 108 ml @ 200 mls/hr Q24H IV 11/15/17 21:00 11/22/17 20:59 11/16/17 21:52 200 MLS/HR Levofloxacin (Consult) 1 ea UD PRN N/A 11/15/17 08:45 12/15/17 08:44 Ampicillin Sodium/ Sulbactam Sodium (Consult) 1 ea UD PRN N/A 11/15/17 08:45 12/15/17 08:44 Levofloxacin 500 mg/Prmx 150 ml @ 100 mls/hr Q48H IV 11/17/17 09:30 11/24/17 09:29 Last 24 Hours Test 11/16/17 11:33 11/17/17 06:56 11/17/17 07:17 Random Vancomycin Level 18.0 mcg/ml Date/Time Source Procedure Growth Status 11/16/17 11:12 Blood Blood Culture Pending Received 11/16/17 11:03 Blood Blood Culture Pending Received Assessment & Plan ESRD-for dialysis today for clearance only. plan on dialysis again tomorrow with fluid removal tomorrow as he hopefully continues to clinically improve. anemia of renal failure-s/p two units. giving procrit today as well.
[2017-11-17] MEDS: CALCIUM ACETATE 667MG GELCAP PO SCH ×3 (07:29→17:19)
[2017-11-17] MEDS: ATORVASTATIN 40 MG TAB PO SCH (07:53)
[2017-11-17] MEDS: AMIODARONE 200 MG TAB PO SCH (07:53)
[2017-11-17] MEDS: ASPIRIN 81 MG ECTAB PO SCH (07:53)
[2017-11-17] MEDS: PANTOprazole SOD 40 MG TAB PO SCH (07:54)
[2017-11-17] MEDS: CARVEDILOL 3.125 MG TAB PO SCH ×2 (07:54→21:02)
[2017-11-17] MEDS: TIOTROPIUM BROMIDE 5 PUFF/90 MCG INH INH SCH (07:54)
[2017-11-17] MEDS: FAMOTIDINE 20 MG TAB PO SCH (07:54)
[2017-11-17] MEDS: AMMONIUM LACTATE 12% LOTION 225 GM BTL EXT SCH ×2 (07:55→21:03)
[2017-11-17] MEDS: POLYETHYLENE (MIRALAX) 17 GM PACK PO SCH ×2 (07:56→21:02)
[2017-11-17] MEDS: BREO ELLIPTA: ORDER AWAITING ACTION SCH ×3 (07:57→15:24)
[2017-11-17] MEDS: LIDODERM (LIDOCAINE) PATCH 5% TD SCH (07:57)
[2017-11-17 08:07] LABS: MEAN CELL VOLUME 91.8 fL (80-100); MEAN CORPUSCULAR HEMOGLOBIN 30.6 pg (25-34); MEAN CORPUSCULAR HGB CONC 33.3 g/dl (32-36); MEAN PLATELET VOLUME 8.7 fL (7.4-10.4); PLATELET COUNT 120 K/uL (130-400); RED CELL DISTRIBUTION WIDTH CV 15.4 % (11.5-14.5); RED CELL DISTRIBUTION WIDTH SD 52.1 fL (36.4-46.3); WHITE BLOOD COUNT 16.48 K/uL (4.8-10.8)
[2017-11-17 09:10] LABS: CALCIUM 8.7 mg/dl (8.5-10.1); CREATININE 9.52 mg/dl (0.60-1.40); POTASSIUM 4.6 mmol/L (3.5-5.1)
[2017-11-17] MEDS ORDERED: LEVOFLOXACIN / D5W 500 MG in PREMIXED IN D5W 150 ML IV SCH (09:30)
[2017-11-17] MEDS ORDERED: ALBUTEROL 0.5% NEB SOLN 2.5 MG/0.5 ML VIAL INH PRN (09:30)
[2017-11-17] MEDS ORDERED: NURSING VERBAL MED ORDER ONE (10:15)
[2017-11-17] MEDS: PAROXETINE 20 MG TAB PO SCH (11:00)
[2017-11-17] MEDS ORDERED: MIDODRINE 10 MG TAB PO SCH (11:00)
[2017-11-17] MEDS: ALBUTEROL HFA 8 GM INHALER INH SCH ×2 (12:07→17:19)
[2017-11-17] MEDS: EPOETIN ALFA 10,000 UNITS/ML VIAL IV. SCH ×2 (13:57→14:00)
--- NOTE | 2017-11-17 14:36 | Progress Note ---
Subjective Date of Service: Nov 17, 2017. Subjective Pt evaluation today including: conversation w/ patient, physical exam, chart review, lab review pt seen in followup, no complaints, but states overall not feeling well. fatigued, states fevers overnight, none documented. tolerating abx. cultures with Serritia, gonzalez sensitive. remains on renal dosed levaquin, tolerating well. repeat cultures pending. all remaining ros reviewed and are negative, leukocytosis improving. Problem List Medical Problems: (1) Elevated troponin I level Status: Acute (2) Hypoxia Status: Acute (3) Nausea Status: Acute Objective Vital Signs Date Time Temp Pulse Resp B/P (MAP) Pulse Ox O2 Delivery O2 Flow Rate FiO2 11/17/17 14:00 70 137/64 11/17/17 13:45 70 137/64 11/17/17 13:15 66 127/74 11/17/17 13:00 66 126/58 11/17/17 12:45 68 126/61 11/17/17 12:30 67 126/57 11/17/17 12:15 66 133/67 11/17/17 12:14 96 Room Air 11/17/17 12:11 37.0 68 20 133/66 (88) 96 11/17/17 12:00 70 134/66 11/17/17 12:00 Nasal Cannula 2.0 11/17/17 11:45 68 133/66 11/17/17 11:30 68 121/63 11/17/17 11:29 36.6 70 124/60 (81) 11/17/17 11:15 70 127/64 11/17/17 11:00 70 120/67 11/17/17 08:00 Nasal Cannula 2.0 11/17/17 07:37 36.9 68 20 138/66 (90) 97 11/17/17 07:20 66 16 96 Nasal Cannula 2.0 11/17/17 04:04 37.1 66 17 136/65 (88) 96 Nasal Cannula 2.0 11/17/17 04:00 Nasal Cannula 2.0 11/17/17 02:25 89 16 94 Room Air 11/16/17 23:59 Nasal Cannula 2.0 11/16/17 23:46 37.0 65 17 130/66 (87) 97 Nasal Cannula 2.0 11/16/17 20:00 Nasal Cannula 2.0 11/16/17 19:23 64 16 92 Room Air 11/16/17 19:21 36.5 67 18 127/62 (83) 93 Room Air 11/16/17 17:35 36.8 59 123/61 11/16/17 16:35 68 18 116/60 100 11/16/17 16:00 Nasal Cannula 2.0 11/16/17 15:35 36.8 65 16 125/63 99 11/16/17 15:35 36.8 61 16 124/56 99 11/16/17 15:30 36.6 60 18 130/65 (86) 98 Nasal Cannula 2.0 11/16/17 15:05 36.8 58 16 124/59 98 Physical Exam General Appearance: WD/WN, no apparent distress Eyes: normal inspection, EOMI Neck: supple Respiratory/Chest: lungs clear, normal breath sounds, no respiratory distress, + decreased breath sounds Cardiovascular: regular rate, rhythm, no edema Abdomen: non tender, soft Extremities: non-tender, no pedal edema Neurologic/Psychiatric: alert, oriented x 3 Skin: normal color Comments: hd access dressing intact, no surrounding erythema. Laboratory Results Item Value Date Time Blood Culture - Final Complete 11/15/17 0330 Blood Serratia Marcescens Blood Culture - Final Complete 11/15/17 0323 Blood Serratia Marcescens Last 24 Hours Test 11/17/17 06:56 White Blood Count 16.48 K/uL Red Blood Count 2.94 M/uL Hemoglobin 9.0 g/dL Hematocrit 27.0 % Mean Corpuscular Volume 91.8 fL Mean Corpuscular Hemoglobin 30.6 pg Mean Corpuscular Hemoglobin Concent 33.3 g/dl RDW Standard Deviation 52.1 fL RDW Coefficient of Variation 15.4 % Platelet Count 120 K/uL Mean Platelet Volume 8.7 fL Sodium Level 130 mmol/L Potassium Level 4.6 mmol/L Chloride Level 95 mmol/L Carbon Dioxide Level 23 mmol/L Anion Gap 12.0 mmol/L Blood Urea Nitrogen 74 mg/dl Creatinine 9.52 mg/dl Est Creatinine Clear Calc Drug Dose 9.0 ml/min Estimated GFR () 5.7 Estimated GFR (Non- 4.9 BUN/Creatinine Ratio 7.7 Random Glucose 86 mg/dl Calcium Level 8.7 mg/dl Random Vancomycin Level 15.3 mcg/ml Assessment and Plan (1) Gram negative sepsis Assessment & Plan: continue levaquin, follow repeat cultures, will need 14 days from first negative, can change to po upon d/c. Continued [facility] stay due to: multiple IV medications needed Discharge planning: home
--- NOTE | 2017-11-17 16:03 | Progress Note ---
Subjective Date of Service: Nov 17, 2017. Subjective Pt evaluation today including: conversation w/ patient, physical exam, lab review, conversation w/ sr risk management consultant, review of inpatient medication list Pain: no pain PO Intake: ate breakfast, no appetite for lunch Voiding: no voiding problems dialysis today, patient feels fatigued, malaise, nauseated had chills today able to eat breakfast overall he just feels weak, lives in single story home with sister blood cultures growing Serratia, repeat cultures pending appreciate ID recommendations Problem List Medical Problems: (1) Elevated troponin I level Status: Acute (2) Hypoxia Status: Acute (3) Nausea Status: Acute Review of Systems Constitutional: + chills, + weakness, + fatigue Neurologic: + weakness All Other Systems: Reviewed and Negative Medications Current Inpatient Medications Medications (Trade) Dose Ordered Sig/Merari Route Start Time Stop Time Status Last Admin Dose Admin Alprazolam (Xanax Tab) 0.25 mg HS PO 11/15/17 21:00 12/15/17 20:59 11/16/17 21:53 0.25 MG Amiodarone HCl (Cordarone Tab) 200 mg DAILY PO 11/15/17 09:00 12/15/17 08:59 11/17/17 07:53 200 MG Aspirin (Ecotrin Tab) 81 mg DAILY PO 11/15/17 09:00 12/15/17 08:59 11/17/17 07:53 81 MG Atorvastatin Calcium (Lipitor Tab) 40 mg DAILY PO 11/15/17 09:00 12/15/17 08:59 11/17/17 07:53 40 MG Calcium Acetate (Phoslo Cap) 667 mg TIDM PO 11/15/17 11:30 12/15/17 11:29 11/17/17 07:29 667 MG Carvedilol (Coreg Tab) 3.125 mg BID PO 11/15/17 09:00 12/15/17 08:59 11/17/17 07:54 3.125 MG Famotidine (Pepcid Tab) 20 mg DAILY PO 11/15/17 09:00 12/15/17 08:59 11/17/17 07:54 20 MG Ammonium Lactate (Lac-Hydrin) 1 appl Q12 EXT 11/15/17 09:00 12/15/17 08:59 11/17/17 07:55 1 APPL Lidocaine (Lidoderm Patch 5%) 1 patch DAILY TD 11/15/17 09:00 12/15/17 08:59 Paroxetine HCl (pAXil TAB) 20 mg DAILY PO 11/15/17 09:00 12/15/17 08:59 11/17/17 11:00 20 MG Tiotropium [place] (Spiriva Handihaler Inhaler) 1 puff DAILY INH 11/15/17 09:00 12/15/17 08:59 11/17/17 07:54 1 PUFF Trazodone HCl (Desyrel Tab) 100 mg HS PO 11/15/17 21:00 12/15/17 20:59 11/16/17 21:53 100 MG Miscellaneous Information (Order Awaiting Action) 1 ea QS N/A 11/15/17 16:00 12/15/17 15:59 Pantoprazole Sodium (Protonix Tab) 40 mg DAILY PO 11/15/17 09:00 12/15/17 08:59 11/17/17 07:54 40 MG Polyethylene (Miralax Powder Packet) 17 gm BID PO 11/15/17 09:00 12/15/17 08:59 Miscellaneous (Remove Lidoderm Patch) 1 ea DAILY@21 N/A 11/15/17 21:00 12/15/17 20:59 11/16/17 21:00 1 EA Acetaminophen (Tylenol Tab) 650 mg Q4H PRN PO 11/15/17 06:30 12/15/17 06:29 11/15/17 08:20 650 MG Al Hydrox/Mg Hydrox/Simethicone (Maalox Max Susp) 15 ml Q4H PRN PO 11/15/17 06:30 12/15/17 06:29 Magnesium Hydroxide (Milk Of Magnesia Susp) 30 ml Q12H PRN PO 11/15/17 06:30 12/15/17 06:29 Ondansetron HCl (Zofran Inj) 4 mg Q6H PRN IV 11/15/17 06:30 12/15/17 06:29 Nitroglycerin (Nitrostat Tab) 0.4 mg UD PRN SL 11/15/17 06:30 12/15/17 06:29 Polyethylene (Miralax Powder Packet) 17 gm DAILY PRN PO 11/15/17 06:30 12/15/17 06:29 Albuterol Sulfate (Ventolin 0.083% 2.5MG/3ML Neb) 2.5 mg Q4H PRN INH 11/15/17 06:45 12/15/17 06:44 Levofloxacin (Consult) 1 ea UD PRN N/A 11/15/17 08:45 12/15/17 08:44 Levofloxacin 500 mg/Prmx 150 ml @ 100 mls/hr Q48H IV 11/17/17 09:30 11/24/17 09:29 11/17/17 07:54 100 MLS/HR Albuterol (Ventolin Hfa Inhaler) 2 puffs Q6 INH 11/17/17 12:00 12/17/17 11:59 11/17/17 12:07 2 PUFFS Albuterol Sulfate (Ventolin 0.5% 2.5MG/0.5ML Neb) 2.5 mg Q4R PRN INH 11/17/17 09:30 12/17/17 09:29 Midodrine (Proamatine Tab) 10 mg TODAY@1100 PO 11/17/17 11:00 11/17/17 21:00 11/17/17 11:48 10 MG Objective Vital Signs Date Time Temp Pulse Resp B/P (MAP) Pulse Ox O2 Delivery O2 Flow Rate FiO2 11/17/17 14:00 70 137/64 11/17/17 13:45 70 137/64 11/17/17 13:15 66 127/74 11/17/17 13:00 66 126/58 11/17/17 12:45 68 126/61 11/17/17 12:30 67 126/57 11/17/17 12:15 66 133/67 11/17/17 12:14 96 Room Air 11/17/17 12:11 37.0 68 20 133/66 (88) 96 11/17/17 12:00 70 134/66 11/17/17 12:00 Nasal Cannula 2.0 11/17/17 11:45 68 133/66 11/17/17 11:30 68 121/63 11/17/17 11:29 36.6 70 124/60 (81) 11/17/17 11:15 70 127/64 11/17/17 11:00 70 120/67 1/23/18 08:00 Nasal Cannula 2.0 11/17/17 07:37 36.9 68 20 138/66 (90) 97 11/17/17 07:20 66 16 96 Nasal Cannula 2.0 11/17/17 04:04 37.1 66 17 136/65 (88) 96 Nasal Cannula 2.0 11/17/17 04:00 Nasal Cannula 2.0 11/17/17 02:25 89 16 94 Room Air 11/16/17 23:59 Nasal Cannula 2.0 11/16/17 23:46 37.0 65 17 130/66 (87) 97 Nasal Cannula 2.0 11/16/17 20:00 Nasal Cannula 2.0 11/16/17 19:23 64 16 92 Room Air 11/16/17 19:21 36.5 67 18 127/62 (83) 93 Room Air 11/16/17 17:35 36.8 59 123/61 11/16/17 16:35 68 18 116/60 100 11/16/17 16:00 Nasal Cannula 2.0 Physical Exam General Appearance: WD/WN, no apparent distress Eyes: normal inspection, EOMI, sclerae normal ENT: normal ENT inspection, hearing grossly normal, pharynx normal Neck: supple, no adenopathy, no JVD, trachea midline Respiratory/Chest: chest non-tender, lungs clear, normal breath sounds, no respiratory distress, no accessory muscle use Cardiovascular: regular rate, rhythm, no edema, no gallop, no JVD, no murmur Abdomen: normal bowel sounds, non tender, soft, no organomegaly Extremities: normal range of motion, non-tender, normal inspection, no pedal edema, no calf tenderness Neurologic/Psychiatric: [employer] II-XII nml as tested, alert, normal mood/affect, oriented x 3, + motor weakness (generalized) Skin: + pertinent finding (left 2nd toe with wound, eschar, no cellulitis) Laboratory Results Last 24 Hours Test 11/17/17 06:56 White Blood Count 16.48 K/uL Red Blood Count 2.94 M/uL Hemoglobin 9.0 g/dL Hematocrit 27.0 % Mean Corpuscular Volume 91.8 fL Mean Corpuscular Hemoglobin 30.6 pg Mean Corpuscular Hemoglobin Concent 33.3 g/dl RDW Standard Deviation 52.1 fL RDW Coefficient of Variation 15.4 % Platelet Count 120 K/uL Mean Platelet Volume 8.7 fL Sodium Level 130 mmol/L Potassium Level 4.6 mmol/L Chloride Level 95 mmol/L Carbon Dioxide Level 23 mmol/L Anion Gap 12.0 mmol/L Blood Urea Nitrogen 74 mg/dl Creatinine 9.52 mg/dl Est Creatinine Clear Calc Drug Dose 9.0 ml/min Estimated GFR () 5.7 Estimated GFR (Non- 4.9 BUN/Creatinine Ratio 7.7 Random Glucose 86 mg/dl Calcium Level 8.7 mg/dl Random Vancomycin Level 15.3 mcg/ml Assessment and Plan 72 y/o M with - Serratia bacteremia, unclear source could be dialysis access site, left 2nd toe, no pneumonia, no UTI on initial work up appreciate ID note, repeat cultures drawn 11/16 WBC down to 16k, no fevers taper back antibiotics to just Levaquin, needs 14 days from negative culture - Anemia; likely of chronic disease, ESRD transfused two units of PRBC 11/16 for Hb of 7.4, Hb 9.0 today Reproducible chest pain, however with elevated troponin, which possible from from sepsis all from end-stage renal disease, however with some inferior inversion on EKG , and a history of CAD appreciate consult from Dr. Fuentes, no evidence of ACS, elevated troponin due to demand ischemia, ESRD continue statins, antiplatelets ESRD, cvt tech consulted continue dialysis, received HD today History of Diastolic CHF PAF/ COPD: We will continue current care GI and DVT prophylaxis is covered full code get PT/OT consults, transfer to medical floor tomorrow Continued [facility] stay due to: multiple IV medications needed Discharge planning: home
[2017-11-17] MEDS: ACETAMINOPHEN 325 MG TAB PO PRN (16:15)
[2017-11-17] MEDS: ONDANSETRON INJ 2 MG/ML 2 ML VIAL IV PRN (16:15)
[2017-11-17] MEDS: ALPRAZOLAM 0.25 MG TAB PO SCH (21:02)
[2017-11-17] MEDS: TRAZODONE HCL 100 MG TAB PO SCH (21:02)
[2017-11-18] VITALS (7 sets, daily range): BP systolic 115–133; BP diastolic 59–67; PULSE 61–68; TEMP 36.7–37.2; O2SAT 92–99
[2017-11-18] MEDS: ALBUTEROL HFA 8 GM INHALER INH SCH ×4 (00:43→17:37)
[2017-11-18 06:49] LABS: BASO % 0.2 %; BASO ABS # 0.02 K/uL (0-0.2); EOS % 2.2 %; EOS ABS # 0.27 K/uL (0-0.5); HEMATOCRIT 26.2 % (42-52); HEMOGLOBIN 8.8 g/dL (14.0-18.0); IG# 0.08 K/uL (0.00-0.02); LYMPH % 9.9 %; MEAN CELL VOLUME 92.6 fL (80-100); MEAN CORPUSCULAR HEMOGLOBIN 31.1 pg (25-34); MEAN CORPUSCULAR HGB CONC 33.6 g/dl (32-36); MEAN PLATELET VOLUME 8.4 fL (7.4-10.4); MONO % 10.4 %; MONO ABS # 1.26 K/uL (0.11-0.59); NEUT % 76.6 %; NEUT ABS # 9.29 K/uL (1.4-6.5); PLATELET COUNT 116 K/uL (130-400); RED CELL DISTRIBUTION WIDTH SD 51.3 fL (36.4-46.3); WHITE BLOOD COUNT 12.12 K/uL (4.8-10.8)
[2017-11-18 07:35] LABS: CALCIUM 8.3 mg/dl (8.5-10.1); CREATININE 7.15 mg/dl (0.60-1.40)
[2017-11-18] MEDS: BREO ELLIPTA: ORDER AWAITING ACTION SCH ×3 (07:36→16:00)
[2017-11-18] MEDS: CALCIUM ACETATE 667MG GELCAP PO SCH ×3 (07:36→17:37)
--- NOTE | 2017-11-18 08:33 | Nephrology Progress Note ---
Nephrology Progress Note Date of Service: Nov 18, 2017. Subjective 72 yo male with ESRD with a resolving chronic wound of his left toes with gram negative bacteremia who tolerated dialysis well yesterday with 2 liters off. no cramping. pt though has been very tired and slept most of the day yesterday. appetite continues to be good and does still urinate. Objective Date Time Temp Pulse Resp B/P (MAP) Pulse Ox O2 Delivery O2 Flow Rate FiO2 11/18/17 04:00 37.0 68 17 124/66 (85) 96 Nasal Cannula 2.0 11/18/17 04:00 Nasal Cannula 2.0 11/18/17 00:01 Nasal Cannula 2.0 11/17/17 23:57 37.4 69 18 115/61 (79) 95 Nasal Cannula 2.0 11/17/17 21:32 37.2 68 138/68 (91) 11/17/17 20:00 Nasal Cannula 2.0 11/17/17 19:28 37.2 68 18 138/68 (91) 96 Room Air 11/17/17 16:31 98 Room Air 11/17/17 16:28 36.7 67 18 133/66 (88) 98 11/17/17 16:27 36.7 67 133/69 (90) 11/17/17 16:00 Nasal Cannula 2.0 11/17/17 14:00 70 137/64 11/17/17 13:45 70 137/64 11/17/17 13:15 66 127/74 11/17/17 13:00 66 126/58 11/17/17 12:45 68 126/61 11/17/17 12:30 67 126/57 11/17/17 12:15 66 133/67 11/17/17 12:14 96 Room Air 11/17/17 12:11 37.0 68 20 133/66 (88) 96 11/17/17 12:00 70 134/66 11/17/17 12:00 Nasal Cannula 2.0 11/17/17 11:45 68 133/66 11/17/17 11:30 68 121/63 11/17/17 11:29 36.6 70 124/60 (81) 11/17/17 11:15 70 127/64 11/17/17 11:00 70 120/67 Physical Exam: General-aaox3 Eyes-no scleral icterus ENT-mmm Neck-supple Lungs-cta Heart-regular Abdomen-nontender Extremities-no c/c/e Neuro-nonfocal Current Inpatient Medications Medications (Trade) Dose Ordered Sig/Merari Route Start Time Stop Time Status Last Admin Dose Admin Alprazolam (Xanax Tab) 0.25 mg HS PO 11/15/17 21:00 12/15/17 20:59 11/17/17 21:02 0.25 MG Amiodarone HCl (Cordarone Tab) 200 mg DAILY PO 11/15/17 09:00 12/15/17 08:59 11/17/17 07:53 200 MG Aspirin (Ecotrin Tab) 81 mg DAILY PO 11/15/17 09:00 12/15/17 08:59 11/17/17 07:53 81 MG Atorvastatin Calcium (Lipitor Tab) 40 mg DAILY PO 11/15/17 09:00 12/15/17 08:59 11/17/17 07:53 40 MG Calcium Acetate (Phoslo Cap) 667 mg TIDM PO 11/15/17 11:30 12/15/17 11:29 11/18/17 07:36 667 MG Carvedilol (Coreg Tab) 3.125 mg BID PO 11/15/17 09:00 12/15/17 08:59 11/17/17 21:02 3.125 MG Famotidine (Pepcid Tab) 20 mg DAILY PO 11/15/17 09:00 12/15/17 08:59 11/17/17 07:54 20 MG Ammonium Lactate (Lac-Hydrin) 1 appl Q12 EXT 11/15/17 09:00 12/15/17 08:59 11/17/17 21:03 1 APPL Lidocaine (Lidoderm Patch 5%) 1 patch DAILY TD 11/15/17 09:00 12/15/17 08:59 Paroxetine HCl (pAXil TAB) 20 mg DAILY PO 11/15/17 09:00 12/15/17 08:59 11/17/17 11:00 20 MG Tiotropium [place] (Spiriva Handihaler Inhaler) 1 puff DAILY INH 11/15/17 09:00 12/15/17 08:59 11/17/17 07:54 1 PUFF Trazodone HCl (Desyrel Tab) 100 mg HS PO 11/15/17 21:00 12/15/17 20:59 11/17/17 21:02 100 MG Miscellaneous Information (Order Awaiting Action) 1 ea QS N/A 11/15/17 16:00 12/15/17 15:59 Pantoprazole Sodium (Protonix Tab) 40 mg DAILY PO 11/15/17 09:00 12/15/17 08:59 11/17/17 07:54 40 MG Polyethylene (Miralax Powder Packet) 17 gm BID PO 11/15/17 09:00 12/15/17 08:59 11/17/17 21:02 17 GM Miscellaneous (Remove Lidoderm Patch) 1 ea DAILY@21 N/A 11/15/17 21:00 12/15/17 20:59 11/16/17 21:00 1 EA Acetaminophen (Tylenol Tab) 650 mg Q4H PRN PO 11/15/17 06:30 12/15/17 06:29 11/17/17 16:15 650 MG Al Hydrox/Mg Hydrox/Simethicone (Maalox Max Susp) 15 ml Q4H PRN PO 11/15/17 06:30 12/15/17 06:29 Magnesium Hydroxide (Milk Of Magnesia Susp) 30 ml Q12H PRN PO 11/15/17 06:30 12/15/17 06:29 Ondansetron HCl (Zofran Inj) 4 mg Q6H PRN IV 11/15/17 06:30 12/15/17 06:29 11/17/17 16:15 4 MG Nitroglycerin (Nitrostat Tab) 0.4 mg UD PRN SL 11/15/17 06:30 12/15/17 06:29 Polyethylene (Miralax Powder Packet) 17 gm DAILY PRN PO 11/15/17 06:30 12/15/17 06:29 Albuterol Sulfate (Ventolin 0.083% 2.5MG/3ML Neb) 2.5 mg Q4H PRN INH 11/15/17 06:45 12/15/17 06:44 Levofloxacin (Consult) 1 ea UD PRN N/A 11/15/17 08:45 12/15/17 08:44 Levofloxacin 500 mg/Prmx 150 ml @ 100 mls/hr Q48H IV 11/17/17 09:30 11/24/17 09:29 11/17/17 07:54 100 MLS/HR Albuterol (Ventolin Hfa Inhaler) 2 puffs Q6 INH 11/17/17 12:00 12/17/17 11:59 11/18/17 05:58 2 PUFFS Albuterol Sulfate (Ventolin 0.5% 2.5MG/0.5ML Neb) 2.5 mg Q4R PRN INH 11/17/17 09:30 12/17/17 09:29 Last 24 Hours Test 11/18/17 06:08 White Blood Count 12.12 K/uL Red Blood Count 2.83 M/uL Hemoglobin 8.8 g/dL Hematocrit 26.2 % Mean Corpuscular Volume 92.6 fL Mean Corpuscular Hemoglobin 31.1 pg Mean Corpuscular Hemoglobin Concent 33.6 g/dl Platelet Count 116 K/uL Mean Platelet Volume 8.4 fL Neutrophils (%) (Auto) 76.6 % Lymphocytes (%) (Auto) 9.9 % Monocytes (%) (Auto) 10.4 % Eosinophils (%) (Auto) 2.2 % Basophils (%) (Auto) 0.2 % Neutrophils # (Auto) 9.29 K/uL Lymphocytes # (Auto) 1.20 K/uL Monocytes # (Auto) 1.26 K/uL Eosinophils # (Auto) 0.27 K/uL Basophils # (Auto) 0.02 K/uL RDW Standard Deviation 51.3 fL RDW Coefficient of Variation 15.0 % Immature Granulocyte % (Auto) 0.7 % Immature Granulocyte # (Auto) 0.08 K/uL Anisocytosis PRESENT Sodium Level 133 mmol/L Potassium Level 4.0 mmol/L Chloride Level 97 mmol/L Carbon Dioxide Level 25 mmol/L Anion Gap 10.0 mmol/L Blood Urea Nitrogen 48 mg/dl Creatinine 7.15 mg/dl Est Creatinine Clear Calc Drug Dose 11.9 ml/min Estimated GFR () 8.0 Estimated GFR (Non- 6.9 BUN/Creatinine Ratio 6.7 Random Glucose 81 mg/dl Calcium Level 8.3 mg/dl Magnesium Level 2.0 mg/dl Assessment & Plan ESRD-for dialysis tomorrow and now on a schedule in house although is on m -w-f as an outpt. pt continues to be very tired. anemia of renal failure-s/p two units. on procrit with a goal hg of 10 to 11. iron sat is low as well and will give a dose of venofer today.
[2017-11-18] MEDS: AMMONIUM LACTATE 12% LOTION 225 GM BTL EXT SCH ×2 (08:46→20:58)
[2017-11-18] MEDS: TIOTROPIUM BROMIDE 5 PUFF/90 MCG INH INH SCH (08:47)
[2017-11-18] MEDS: AMIODARONE 200 MG TAB PO SCH (08:48)
[2017-11-18] MEDS: ASPIRIN 81 MG ECTAB PO SCH (08:48)
[2017-11-18] MEDS: CARVEDILOL 3.125 MG TAB PO SCH ×2 (08:48→21:01)
[2017-11-18] MEDS: ATORVASTATIN 40 MG TAB PO SCH (08:49)
[2017-11-18] MEDS: PAROXETINE 20 MG TAB PO SCH (08:50)
[2017-11-18] MEDS: POLYETHYLENE (MIRALAX) 17 GM PACK PO SCH ×2 (08:50→20:54)
[2017-11-18] MEDS: FAMOTIDINE 20 MG TAB PO SCH (08:51)
[2017-11-18] MEDS: LIDODERM (LIDOCAINE) PATCH 5% TD SCH (08:52)
[2017-11-18] MEDS: PANTOprazole SOD 40 MG TAB PO SCH (08:52)
[2017-11-18] MEDS ORDERED: IRON SUCROSE INJ 100 MG in SODIUM CHLORIDE 0.9% 100ML 100 ML IV SCH (12:00)
--- NOTE | 2017-11-18 15:10 | Medical Student: [facility] ---
Med Student Progress Note Date of Service Nov 18, 2017. Subjective Pt evaluation today including: conversation w/ patient, physical exam Pain: None PO Intake: Adequate Voiding: no voiding problems Mr. Perdue is a 72-year-old man with a history of ESRD, CAD with inferior inversion on admission, CHF, PAF, osteomyelitis, and COPD who is admitted for Serratia bacteremia. Pt says he feels like "crap-tony" today. Over the past 24 hours, he has felt very fatigued and has been sleeping much more than usual. He had chills yesterday but says they are gone today. He reports some nausea, constipation, SOB, episodic palpitations and post nasal drip. His dose of Miralax has not helped with his constipation. He denies any other issues voiding , and calf pain/swelling. No issues overnight. Review of Systems Notes: see HPI Objective Vital Signs Date Time Temp Pulse Resp B/P (MAP) Pulse Ox O2 Delivery O2 Flow Rate FiO2 11/18/17 14:00 36.7 64 20 128/66 (86) 94 Room Air 11/18/17 13:35 37.2 61 18 92 11/18/17 12:00 Room Air 11/18/17 12:00 37.2 61 18 127/60 (82) 92 Room Air 11/18/17 11:26 37.2 62 16 133/64 (87) 95 Room Air 11/18/17 08:00 Room Air 11/18/17 08:00 37.0 66 16 129/67 (87) 98 Room Air 11/18/17 04:00 37.0 68 17 124/66 (85) 96 Nasal Cannula 2.0 11/18/17 04:00 Nasal Cannula 2.0 11/18/17 00:01 Nasal Cannula 2.0 11/17/17 23:57 37.4 69 18 115/61 (79) 95 Nasal Cannula 2.0 11/17/17 21:32 37.2 68 138/68 (91) 11/17/17 20:00 Nasal Cannula 2.0 11/17/17 19:28 37.2 68 18 138/68 (91) 96 Room Air 11/17/17 16:31 98 Room Air 11/17/17 16:28 36.7 67 18 133/66 (88) 98 11/17/17 16:27 36.7 67 133/69 (90) 11/17/17 16:00 Nasal Cannula 2.0 Physical Exam General Appearance: no apparent distress, + pertinent finding (fatigued) ENT: hearing grossly normal, TMs normal Neck: no adenopathy Respiratory/Chest: no respiratory distress, + pertinent finding (mild expiratory wheezes and rales in lower lobes bilaterally) Cardiovascular: regular rate, rhythm, no edema, no gallop, no murmur Abdomen: normal bowel sounds, non tender, soft Extremities: no pedal edema, no calf tenderness, + pertinent finding (chronic venous insufficiency) Neurologic/Psychiatric: alert, normal mood/affect Laboratory Results Last 24 Hours Test 11/18/17 06:08 White Blood Count 12.12 K/uL Red Blood Count 2.83 M/uL Hemoglobin 8.8 g/dL Hematocrit 26.2 % Mean Corpuscular Volume 92.6 fL Mean Corpuscular Hemoglobin 31.1 pg Mean Corpuscular Hemoglobin Concent 33.6 g/dl Platelet Count 116 K/uL Mean Platelet Volume 8.4 fL Neutrophils (%) (Auto) 76.6 % Lymphocytes (%) (Auto) 9.9 % Monocytes (%) (Auto) 10.4 % Eosinophils (%) (Auto) 2.2 % Basophils (%) (Auto) 0.2 % Neutrophils # (Auto) 9.29 K/uL Lymphocytes # (Auto) 1.20 K/uL Monocytes # (Auto) 1.26 K/uL Eosinophils # (Auto) 0.27 K/uL Basophils # (Auto) 0.02 K/uL RDW Standard Deviation 51.3 fL RDW Coefficient of Variation 15.0 % Immature Granulocyte % (Auto) 0.7 % Immature Granulocyte # (Auto) 0.08 K/uL Anisocytosis PRESENT Sodium Level 133 mmol/L Potassium Level 4.0 mmol/L Chloride Level 97 mmol/L Carbon Dioxide Level 25 mmol/L Anion Gap 10.0 mmol/L Blood Urea Nitrogen 48 mg/dl Creatinine 7.15 mg/dl Est Creatinine Clear Calc Drug Dose 11.9 ml/min Estimated GFR () 8.0 Estimated GFR (Non- 6.9 BUN/Creatinine Ratio 6.7 Random Glucose 81 mg/dl Calcium Level 8.3 mg/dl Magnesium Level 2.0 mg/dl Assessment and Plan Assessment and Plan: Mr. Perdue is a 72-year-old man with a history of ESRD, CAD with inferior inversion on admission, CHF, PAF, osteomyelitis, and COPD who is admitted for Serratia bacteremia. Patient is clinically improved but still has much fatigue and weakness. Discussed rehab upon discharge and pt is amenable. BACTEREMIA Second blood culture negative and pt continues to be afebrile. No chills today. On day 3/14 of levaquin after negative culture. leukocytosis continues to trend downward - 16.48 yesterday to 12.12 today. ANEMIA Likely due to ESRD. ESRD Continue dialysis per nephrology consult. CONSTIPATION Continue to offer Miralax as needed. DVT PPX Ambulate as tolerated. PAF Continue amiodarone. Osteomyelitis & WOUND INFECTION Per ID, consult wound management. COPD Continue albuterol and tiotropium. CAD Cardiology consult reveals elevated troponins secondary to demand ischemia, not ACS. Continue ASA, statin, and carvedilol. GERD Denies reflux Continue famotidine and pantoprazole DEPRESSION/ANXIETY/INSOMNIA Continue alprazolam and trazodone. Continued [facility] stay due to: multiple IV medications needed Discharge planning: home
[2017-11-18] MEDS: TRAZODONE HCL 100 MG TAB PO SCH (20:57)
[2017-11-18] MEDS: ALPRAZOLAM 0.25 MG TAB PO SCH (21:00)
--- NOTE | 2017-11-18 21:00 | Progress Note ---
Subjective Date of Service: Nov 18, 2017. Subjective Pt evaluation today including: conversation w/ patient, physical exam, lab review, conversation w/ healthcare market consultant, review of inpatient medication list Pain: no pain PO Intake: adequate Voiding: no voiding problems doing well, no new issues eating better than yesterday repeat cultures negative Problem List Medical Problems: (1) Elevated troponin I level Status: Acute (2) Hypoxia Status: Acute (3) Nausea Status: Acute Review of Systems Constitutional: + weakness, + fatigue All Other Systems: Reviewed and Negative Medications Current Inpatient Medications Medications (Trade) Dose Ordered Sig/Merari Route Start Time Stop Time Status Last Admin Dose Admin Alprazolam (Xanax Tab) 0.25 mg HS PO 11/15/17 21:00 12/15/17 20:59 11/17/17 21:02 0.25 MG Amiodarone HCl (Cordarone Tab) 200 mg DAILY PO 11/15/17 09:00 12/15/17 08:59 11/18/17 08:48 200 MG Aspirin (Ecotrin Tab) 81 mg DAILY PO 11/15/17 09:00 12/15/17 08:59 11/18/17 08:48 81 MG Atorvastatin Calcium (Lipitor Tab) 40 mg DAILY PO 11/15/17 09:00 12/15/17 08:59 11/18/17 08:49 40 MG Calcium Acetate (Phoslo Cap) 667 mg TIDM PO 11/15/17 11:30 12/15/17 11:29 11/18/17 17:37 667 MG Carvedilol (Coreg Tab) 3.125 mg BID PO 11/15/17 09:00 12/15/17 08:59 11/18/17 08:48 3.125 MG Famotidine (Pepcid Tab) 20 mg DAILY PO 11/15/17 09:00 12/15/17 08:59 11/18/17 08:51 20 MG Ammonium Lactate (Lac-Hydrin) 1 appl Q12 EXT 11/15/17 09:00 12/15/17 08:59 11/18/17 08:46 1 APPL Lidocaine (Lidoderm Patch 5%) 1 patch DAILY TD 11/15/17 09:00 12/15/17 08:59 11/18/17 08:52 1 PATCH Paroxetine HCl (pAXil TAB) 20 mg DAILY PO 11/15/17 09:00 12/15/17 08:59 11/18/17 08:50 20 MG Tiotropium [place] (Spiriva Handihaler Inhaler) 1 puff DAILY INH 11/15/17 09:00 12/15/17 08:59 11/18/17 08:47 1 PUFF Trazodone HCl (Desyrel Tab) 100 mg HS PO 11/15/17 21:00 12/15/17 20:59 11/17/17 21:02 100 MG Miscellaneous Information (Order Awaiting Action) 1 ea QS N/A 11/15/17 16:00 12/15/17 15:59 Pantoprazole Sodium (Protonix Tab) 40 mg DAILY PO 11/15/17 09:00 12/15/17 08:59 11/18/17 08:52 40 MG Polyethylene (Miralax Powder Packet) 17 gm BID PO 11/15/17 09:00 12/15/17 08:59 11/18/17 08:50 17 GM Miscellaneous (Remove Lidoderm Patch) 1 ea DAILY@21 N/A 11/15/17 21:00 12/15/17 20:59 11/16/17 21:00 1 EA Acetaminophen (Tylenol Tab) 650 mg Q4H PRN PO 11/15/17 06:30 12/15/17 06:29 11/17/17 16:15 650 MG Al Hydrox/Mg Hydrox/Simethicone (Maalox Max Susp) 15 ml Q4H PRN PO 11/15/17 06:30 12/15/17 06:29 Magnesium Hydroxide (Milk Of Magnesia Susp) 30 ml Q12H PRN PO 11/15/17 06:30 12/15/17 06:29 Ondansetron HCl (Zofran Inj) 4 mg Q6H PRN IV 11/15/17 06:30 12/15/17 06:29 11/17/17 16:15 4 MG Nitroglycerin (Nitrostat Tab) 0.4 mg UD PRN SL 11/15/17 06:30 12/15/17 06:29 Polyethylene (Miralax Powder Packet) 17 gm DAILY PRN PO 11/15/17 06:30 12/15/17 06:29 Albuterol Sulfate (Ventolin 0.083% 2.5MG/3ML Neb) 2.5 mg Q4H PRN INH 11/15/17 06:45 12/15/17 06:44 Levofloxacin (Consult) 1 ea UD PRN N/A 11/15/17 08:45 12/15/17 08:44 Levofloxacin 500 mg/Prmx 150 ml @ 100 mls/hr Q48H IV 11/17/17 09:30 11/24/17 09:29 11/17/17 07:54 100 MLS/HR Albuterol (Ventolin Hfa Inhaler) 2 puffs Q6 INH 11/17/17 12:00 12/17/17 11:59 11/18/17 17:37 2 PUFFS Albuterol Sulfate (Ventolin 0.5% 2.5MG/0.5ML Neb) 2.5 mg Q4R PRN INH 11/17/17 09:30 12/17/17 09:29 Objective Vital Signs Date Time Temp Pulse Resp B/P (MAP) Pulse Ox O2 Delivery O2 Flow Rate FiO2 11/18/17 20:51 64 115/59 (77) 99 Room Air 11/18/17 14:00 36.7 64 20 128/66 (86) 94 Room Air 11/18/17 13:35 37.2 61 18 92 11/18/17 12:00 Room Air 11/18/17 12:00 37.2 61 18 127/60 (82) 92 Room Air 11/18/17 11:26 37.2 62 16 133/64 (87) 95 Room Air 11/18/17 08:00 Room Air 11/18/17 08:00 37.0 66 16 129/67 (87) 98 Room Air 11/18/17 04:00 37.0 68 17 124/66 (85) 96 Nasal Cannula 2.0 11/18/17 04:00 Nasal Cannula 2.0 11/18/17 00:01 Nasal Cannula 2.0 11/17/17 23:57 37.4 69 18 115/61 (79) 95 Nasal Cannula 2.0 11/17/17 21:32 37.2 68 138/68 (91) Physical Exam General Appearance: WD/WN, no apparent distress Eyes: normal inspection, EOMI, sclerae normal ENT: normal ENT inspection, hearing grossly normal, pharynx normal Neck: supple, no adenopathy, no JVD, trachea midline Respiratory/Chest: chest non-tender, lungs clear, normal breath sounds, no respiratory distress, no accessory muscle use Cardiovascular: regular rate, rhythm, no edema, no gallop, no JVD, no murmur Abdomen: normal bowel sounds, non tender, soft, no organomegaly Extremities: normal range of motion, non-tender, no pedal edema, no calf tenderness, pelvis stable, + slow capillary refill, + pertinent finding ( chronic lower extremity wounds) Neurologic/Psychiatric: prover II-XII nml as tested, no motor/sensory deficits, alert, normal mood/affect, oriented x 3 Skin: + pertinent finding (chronic lower extremity wounds) Laboratory Results Last 24 Hours Test 11/18/17 06:08 White Blood Count 12.12 K/uL Red Blood Count 2.83 M/uL Hemoglobin 8.8 g/dL Hematocrit 26.2 % Mean Corpuscular Volume 92.6 fL Mean Corpuscular Hemoglobin 31.1 pg Mean Corpuscular Hemoglobin Concent 33.6 g/dl Platelet Count 116 K/uL Mean Platelet Volume 8.4 fL Neutrophils (%) (Auto) 76.6 % Lymphocytes (%) (Auto) 9.9 % Monocytes (%) (Auto) 10.4 % Eosinophils (%) (Auto) 2.2 % Basophils (%) (Auto) 0.2 % Neutrophils # (Auto) 9.29 K/uL Lymphocytes # (Auto) 1.20 K/uL Monocytes # (Auto) 1.26 K/uL Eosinophils # (Auto) 0.27 K/uL Basophils # (Auto) 0.02 K/uL RDW Standard Deviation 51.3 fL RDW Coefficient of Variation 15.0 % Immature Granulocyte % (Auto) 0.7 % Immature Granulocyte # (Auto) 0.08 K/uL Anisocytosis PRESENT Sodium Level 133 mmol/L Potassium Level 4.0 mmol/L Chloride Level 97 mmol/L Carbon Dioxide Level 25 mmol/L Anion Gap 10.0 mmol/L Blood Urea Nitrogen 48 mg/dl Creatinine 7.15 mg/dl Est Creatinine Clear Calc Drug Dose 11.9 ml/min Estimated GFR () 8.0 Estimated GFR (Non- 6.9 BUN/Creatinine Ratio 6.7 Random Glucose 81 mg/dl Calcium Level 8.3 mg/dl Magnesium Level 2.0 mg/dl Assessment and Plan 72 y/o M with - Serratia bacteremia, unclear source, repeat cultures negative could be dialysis access site, left 2nd toe, no pneumonia, no UTI on initial work up appreciate ID note, repeat cultures drawn 11/16 WBC trending down to 12k, no fevers taper back antibiotics to just Levaquin, needs 14 days from negative culture which is 11/16 - Anemia; likely of chronic disease, ESRD transfused two units of PRBC 11/16 for Hb of 7.4, Hb 8.8 today Reproducible chest pain, however with elevated troponin, which possible from from sepsis all from end-stage renal disease, however with some inferior inversion on EKG , and a history of CAD appreciate consult from Dr. 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
[2017-11-19] VITALS (20 sets, daily range): BP systolic 95–152; BP diastolic 52–73; PULSE 60–73; TEMP 36.6–37.4; O2SAT 90–98
[2017-11-19] MEDS: ALBUTEROL HFA 8 GM INHALER INH SCH ×4 (03:49→17:54)
[2017-11-19] MEDS: BREO ELLIPTA: ORDER AWAITING ACTION SCH ×3 (03:50→16:00)
[2017-11-19] MEDS: TIOTROPIUM BROMIDE 5 PUFF/90 MCG INH INH SCH (07:40)
[2017-11-19] MEDS: POLYETHYLENE (MIRALAX) 17 GM PACK PO SCH ×2 (07:41→20:00)
[2017-11-19] MEDS: ATORVASTATIN 40 MG TAB PO SCH (07:41)
[2017-11-19] MEDS: ASPIRIN 81 MG ECTAB PO SCH (07:41)
[2017-11-19] MEDS: PAROXETINE 20 MG TAB PO SCH (07:42)
[2017-11-19] MEDS: FAMOTIDINE 20 MG TAB PO SCH (07:42)
[2017-11-19] MEDS: CALCIUM ACETATE 667MG GELCAP PO SCH ×3 (07:42→17:54)
[2017-11-19] MEDS: LIDODERM (LIDOCAINE) PATCH 5% TD SCH (07:42)
[2017-11-19] MEDS: PANTOprazole SOD 40 MG TAB PO SCH (07:42)
[2017-11-19] MEDS: AMMONIUM LACTATE 12% LOTION 225 GM BTL EXT SCH ×2 (07:42→20:56)
--- NOTE | 2017-11-19 08:55 | Nephrology Progress Note ---
Nephrology Progress Note Date of Service: Nov 19, 2017. Subjective 72 yo male with ESRD with bacteremia on appropriate antibiotics with unclear source of infection. repeat cultures are negative. pt continues to be tired, constipated, decreased appetite. oob to chair. Objective Date Time Temp Pulse Resp B/P (MAP) Pulse Ox O2 Delivery O2 Flow Rate FiO2 11/19/17 07:38 36.7 66 20 130/65 (86) 94 11/19/17 00:23 36.8 62 18 123/60 (81) 92 Room Air 11/19/17 00:00 Room Air 11/18/17 20:51 64 115/59 (77) 99 Room Air 11/18/17 16:00 Room Air 11/18/17 14:00 36.7 64 20 128/66 (86) 94 Room Air 11/18/17 13:35 37.2 61 18 92 11/18/17 12:00 Room Air 11/18/17 12:00 37.2 61 18 127/60 (82) 92 Room Air 11/18/17 11:26 37.2 62 16 133/64 (87) 95 Room Air Physical Exam: General-aaox3 Eyes-no scleral icterus ENT-mmm Neck-supple Lungs-clear Heart-rrr Abdomen-nontender Extremities-no c/c/e Neuro-nonfocal Current Inpatient Medications Medications (Trade) Dose Ordered Sig/Merari Route Start Time Stop Time Status Last Admin Dose Admin Alprazolam (Xanax Tab) 0.25 mg HS PO 11/15/17 21:00 12/15/17 20:59 11/18/17 21:00 0.25 MG Amiodarone HCl (Cordarone Tab) 200 mg DAILY PO 11/15/17 09:00 12/15/17 08:59 11/18/17 08:48 200 MG Aspirin (Ecotrin Tab) 81 mg DAILY PO 11/15/17 09:00 12/15/17 08:59 11/19/17 07:41 81 MG Atorvastatin Calcium (Lipitor Tab) 40 mg DAILY PO 11/15/17 09:00 12/15/17 08:59 11/19/17 07:41 40 MG Calcium Acetate (Phoslo Cap) 667 mg TIDM PO 11/15/17 11:30 12/15/17 11:29 11/19/17 07:42 667 MG Carvedilol (Coreg Tab) 3.125 mg BID PO 11/15/17 09:00 12/15/17 08:59 11/18/17 21:01 3.125 MG Famotidine (Pepcid Tab) 20 mg DAILY PO 11/15/17 09:00 12/15/17 08:59 11/19/17 07:42 20 MG Ammonium Lactate (Lac-Hydrin) 1 appl Q12 EXT 11/15/17 09:00 12/15/17 08:59 11/18/17 08:46 1 APPL Lidocaine (Lidoderm Patch 5%) 1 patch DAILY TD 11/15/17 09:00 12/15/17 08:59 11/19/17 07:42 1 PATCH Paroxetine HCl (pAXil TAB) 20 mg DAILY PO 11/15/17 09:00 12/15/17 08:59 11/19/17 07:42 20 MG Tiotropium [place] (Spiriva Handihaler Inhaler) 1 puff DAILY INH 11/15/17 09:00 12/15/17 08:59 11/19/17 07:40 1 PUFF Trazodone HCl (Desyrel Tab) 100 mg HS PO 11/15/17 21:00 12/15/17 20:59 11/18/17 20:57 100 MG Miscellaneous Information (Order Awaiting Action) 1 ea QS N/A 11/15/17 16:00 12/15/17 15:59 Pantoprazole Sodium (Protonix Tab) 40 mg DAILY PO 11/15/17 09:00 12/15/17 08:59 11/19/17 07:42 40 MG Polyethylene (Miralax Powder Packet) 17 gm BID PO 11/15/17 09:00 12/15/17 08:59 11/19/17 07:41 17 GM Miscellaneous (Remove Lidoderm Patch) 1 ea DAILY@21 N/A 11/15/17 21:00 12/15/17 20:59 11/18/17 20:56 1 EA Acetaminophen (Tylenol Tab) 650 mg Q4H PRN PO 11/15/17 06:30 12/15/17 06:29 11/17/17 16:15 650 MG Al Hydrox/Mg Hydrox/Simethicone (Maalox Max Susp) 15 ml Q4H PRN PO 11/15/17 06:30 12/15/17 06:29 Magnesium Hydroxide (Milk Of Magnesia Susp) 30 ml Q12H PRN PO 11/15/17 06:30 12/15/17 06:29 Ondansetron HCl (Zofran Inj) 4 mg Q6H PRN IV 11/15/17 06:30 12/15/17 06:29 11/17/17 16:15 4 MG Nitroglycerin (Nitrostat Tab) 0.4 mg UD PRN SL 11/15/17 06:30 12/15/17 06:29 Polyethylene (Miralax Powder Packet) 17 gm DAILY PRN PO 11/15/17 06:30 12/15/17 06:29 Albuterol Sulfate (Ventolin 0.083% 2.5MG/3ML Neb) 2.5 mg Q4H PRN INH 11/15/17 06:45 12/15/17 06:44 Levofloxacin (Consult) 1 ea UD PRN N/A 11/15/17 08:45 12/15/17 08:44 Albuterol (Ventolin Hfa Inhaler) 2 puffs Q6 INH 11/17/17 12:00 12/17/17 11:59 11/19/17 06:24 2 PUFFS Albuterol Sulfate (Ventolin 0.5% 2.5MG/0.5ML Neb) 2.5 mg Q4R PRN INH 11/17/17 09:30 12/17/17 09:29 Epoetin Eugen[place] (Procrit Inj) 10,000 units TODAY@0900 IV. 11/19/17 09:00 11/19/17 13:59 Albumin Human (Albumin 25%) 12.5 gm TODAY@0900 IV 11/19/17 09:00 11/19/17 23:59 Levofloxacin 500 mg/Prmx 100 ml @ 100 mls/hr Q48H IV 11/19/17 09:00 11/22/17 08:59 Assessment & Plan ESRD-for dialysis today and will dialyze for clearance only. no signs of volume overload. anemia of renal failure-s/p two units. on procrit with a goal hg of 10 to 11. did get a dose of venofer this week. will redose again today.
[2017-11-19] MEDS ORDERED: EPOETIN ALFA 10,000 UNITS/ML VIAL IV. SCH (09:00)
[2017-11-19] MEDS: LEVOFLOXACIN 500MG / D5W IV SCH ×3 (09:00→16:41)
[2017-11-19] MEDS ORDERED: ALBUMIN HUMAN 25% 12.5 GM/50 ML VIAL IV SCH (09:00)
[2017-11-19] MEDS ORDERED: NURSING VERBAL MED ORDER ONE ×2 (09:15→14:30)
[2017-11-19] MEDS ORDERED: IRON SUCROSE INJ 100 MG in SYRINGE 0 ML IV SCH (10:00)
[2017-11-19] MEDS: AMIODARONE 200 MG TAB PO SCH (13:51)
[2017-11-19] MEDS: CARVEDILOL 3.125 MG TAB PO SCH ×2 (13:51→20:57)
[2017-11-19] MEDS: ONDANSETRON INJ 2 MG/ML 2 ML VIAL IV PRN (20:51)
[2017-11-19] MEDS: ALPRAZOLAM 0.25 MG TAB PO SCH (20:57)
[2017-11-19] MEDS: TRAZODONE HCL 100 MG TAB PO SCH (20:57)
--- NOTE | 2017-11-19 21:21 | Progress Note ---
Subjective Date of Service: Nov 19, 2017. Subjective Pt evaluation today including: conversation w/ patient, physical exam, lab review, review of inpatient medication list Pain: no pain PO Intake: adequate Voiding: no voiding problems tired today after HD, otherwise doing well more strength and better balance, wishes to go home with services Problem List Medical Problems: (1) Elevated troponin I level Status: Acute (2) Hypoxia Status: Acute (3) Nausea Status: Acute Review of Systems Constitutional: + weakness, + fatigue All Other Systems: Reviewed and Negative Medications Current Inpatient Medications Medications (Trade) Dose Ordered Sig/Merari Route Start Time Stop Time Status Last Admin Dose Admin Alprazolam (Xanax Tab) 0.25 mg HS PO 11/15/17 21:00 12/15/17 20:59 11/19/17 20:57 0.25 MG Amiodarone HCl (Cordarone Tab) 200 mg DAILY PO 11/15/17 09:00 12/15/17 08:59 11/19/17 13:51 200 MG Aspirin (Ecotrin Tab) 81 mg DAILY PO 11/15/17 09:00 12/15/17 08:59 11/19/17 07:41 81 MG Atorvastatin Calcium (Lipitor Tab) 40 mg DAILY PO 11/15/17 09:00 12/15/17 08:59 11/19/17 07:41 40 MG Calcium Acetate (Phoslo Cap) 667 mg TIDM PO 11/15/17 11:30 12/15/17 11:29 11/19/17 17:54 667 MG Carvedilol (Coreg Tab) 3.125 mg BID PO 11/15/17 09:00 12/15/17 08:59 11/19/17 20:57 3.125 MG Famotidine (Pepcid Tab) 20 mg DAILY PO 11/15/17 09:00 12/15/17 08:59 11/19/17 07:42 20 MG Ammonium Lactate (Lac-Hydrin) 1 appl Q12 EXT 11/15/17 09:00 12/15/17 08:59 11/18/17 08:46 1 APPL Lidocaine (Lidoderm Patch 5%) 1 patch DAILY TD 11/15/17 09:00 12/15/17 08:59 11/19/17 07:42 1 PATCH Paroxetine HCl (pAXil TAB) 20 mg DAILY PO 11/15/17 09:00 12/15/17 08:59 11/19/17 07:42 20 MG Tiotropium [place] (Spiriva Handihaler Inhaler) 1 puff DAILY INH 11/15/17 09:00 12/15/17 08:59 11/19/17 07:40 1 PUFF Trazodone HCl (Desyrel Tab) 100 mg HS PO 11/15/17 21:00 12/15/17 20:59 11/19/17 20:57 100 MG Miscellaneous Information (Order Awaiting Action) 1 ea QS N/A 11/15/17 16:00 12/15/17 15:59 Pantoprazole Sodium (Protonix Tab) 40 mg DAILY PO 11/15/17 09:00 12/15/17 08:59 11/19/17 07:42 40 MG Polyethylene (Miralax Powder Packet) 17 gm BID PO 11/15/17 09:00 12/15/17 08:59 11/19/17 07:41 17 GM Miscellaneous (Remove Lidoderm Patch) 1 ea DAILY@21 N/A 11/15/17 21:00 12/15/17 20:59 11/19/17 20:57 1 EA Acetaminophen (Tylenol Tab) 650 mg Q4H PRN PO 11/15/17 06:30 12/15/17 06:29 11/17/17 16:15 650 MG Al Hydrox/Mg Hydrox/Simethicone (Maalox Max Susp) 15 ml Q4H PRN PO 11/15/17 06:30 12/15/17 06:29 Magnesium Hydroxide (Milk Of Magnesia Susp) 30 ml Q12H PRN PO 11/15/17 06:30 12/15/17 06:29 Ondansetron HCl (Zofran Inj) 4 mg Q6H PRN IV 11/15/17 06:30 12/15/17 06:29 11/19/17 20:51 4 MG Nitroglycerin (Nitrostat Tab) 0.4 mg UD PRN SL 11/15/17 06:30 12/15/17 06:29 Polyethylene (Miralax Powder Packet) 17 gm DAILY PRN PO 11/15/17 06:30 12/15/17 06:29 Albuterol Sulfate (Ventolin 0.083% 2.5MG/3ML Neb) 2.5 mg Q4H PRN INH 11/15/17 06:45 12/15/17 06:44 Levofloxacin (Consult) 1 ea UD PRN N/A 11/15/17 08:45 12/15/17 08:44 Albuterol (Ventolin Hfa Inhaler) 2 puffs Q6 INH 11/17/17 12:00 12/17/17 11:59 11/19/17 17:54 2 PUFFS Albuterol Sulfate (Ventolin 0.5% 2.5MG/0.5ML Neb) 2.5 mg Q4R PRN INH 11/17/17 09:30 12/17/17 09:29 Albumin Human (Albumin 25%) 12.5 gm TODAY@0900 IV 11/19/17 09:00 11/19/17 23:59 11/19/17 10:15 12.5 GM Levofloxacin 500 mg/Prmx 100 ml @ 100 mls/hr Q48H IV 11/19/17 09:00 11/22/17 08:59 11/19/17 16:41 100 MLS/HR Iron Sucrose 100 mg/Syringe 5 ml @ 2.5 mls/min TODAY@1000 IV 11/19/17 10:00 11/19/17 23:59 11/19/17 11:24 2.5 MLS/MIN Objective Vital Signs Date Time Temp Pulse Resp B/P (MAP) Pulse Ox O2 Delivery O2 Flow Rate FiO2 11/19/17 20:54 73 152/73 (99) 11/19/17 16:00 Room Air 11/19/17 15:46 36.6 66 20 129/66 (87) 93 Nasal Cannula 1.5 11/19/17 13:50 36.7 73 16 130/64 (86) 98 Nasal Cannula 2.0 11/19/17 13:26 37.1 62 117/52 (73) 11/19/17 12:45 63 118/59 11/19/17 12:30 61 113/57 11/19/17 12:15 64 109/57 11/19/17 12:00 61 112/53 11/19/17 11:45 60 108/57 11/19/17 11:30 60 99/54 11/19/17 11:15 63 102/57 11/19/17 11:00 63 95/53 11/19/17 10:45 63 107/54 11/19/17 10:30 61 109/53 11/19/17 10:15 61 109/53 11/19/17 09:50 61 109/53 11/19/17 09:45 36.9 63 112/58 (76) 11/19/17 08:00 Room Air 11/19/17 07:38 36.7 66 20 130/65 (86) 94 11/19/17 00:23 36.8 62 18 123/60 (81) 92 Room Air 11/19/17 00:00 Room Air Physical Exam General Appearance: WD/WN, no apparent distress Eyes: normal inspection, EOMI ENT: normal ENT inspection, hearing grossly normal, pharynx normal Neck: supple, no adenopathy, no JVD, trachea midline Respiratory/Chest: chest non-tender, lungs clear, normal breath sounds, no respiratory distress, no accessory muscle use Cardiovascular: regular rate, rhythm, no edema, no gallop, no JVD, no murmur Abdomen: normal bowel sounds, non tender, soft, no organomegaly Extremities: normal range of motion, non-tender, normal inspection, no pedal edema, no calf tenderness Neurologic/Psychiatric: 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 of 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 II-XII nml as tested, no motor/sensory deficits, alert, normal mood/affect, oriented x 3 Skin: normal color, warm/dry, no rash Assessment and Plan 72 y/o M with - Serratia bacteremia, unclear source, repeat cultures negative could be dialysis access site, left 2nd toe, no pneumonia, no UTI on initial work up appreciate ID note, repeat cultures drawn 11/16 WBC trending down, no fevers taper back antibiotics to just Levaquin, needs 14 days from negative culture which is 11/16 plan to go home tomorrow on Levaquin PO, sister will help him - Anemia; likely of chronic disease, ESRD transfused two units of PRBC 11/16 for Hb of 7.4, Hb 8.8 yesterday Reproducible chest pain, however with elevated troponin, which possible from from sepsis all from end-stage renal disease, however with some inferior inversion on EKG , and a history of CAD appreciate consult from Dr. Fuentes, no evidence of ACS, elevated troponin due to demand ischemia, ESRD continue statins, antiplatelets ESRD, head and neck surgeon consulted continue dialysis, received HD today History of Diastolic CHF PAF/ COPD: We will continue current care GI and DVT prophylaxis is covered full code transfer to medical floor, PT/OT consulted, plan to go home with services tomorrow Continued [facility] stay due to: multiple IV medications needed Discharge planning: home
[2017-11-20] MEDS: BREO ELLIPTA: ORDER AWAITING ACTION SCH ×4 (00:34→23:54)
[2017-11-20] MEDS: ALBUTEROL HFA 8 GM INHALER INH SCH ×5 (00:34→23:53)
[2017-11-20 07:09] VITALS: BP 155/74; PULSE 63; TEMP 36.7; O2SAT 94
[2017-11-20] MEDS: AMIODARONE 200 MG TAB PO SCH (07:50)
[2017-11-20] MEDS: PAROXETINE 20 MG TAB PO SCH (07:50)
[2017-11-20] MEDS: CALCIUM ACETATE 667MG GELCAP PO SCH ×3 (07:50→17:24)
[2017-11-20] MEDS: FAMOTIDINE 20 MG TAB PO SCH (07:50)
[2017-11-20] MEDS: ATORVASTATIN 40 MG TAB PO SCH (07:50)
[2017-11-20] MEDS: PANTOprazole SOD 40 MG TAB PO SCH (07:50)
[2017-11-20] MEDS: POLYETHYLENE (MIRALAX) 17 GM PACK PO SCH (07:50)
[2017-11-20] MEDS: ASPIRIN 81 MG ECTAB PO SCH (07:50)
[2017-11-20] MEDS: CARVEDILOL 3.125 MG TAB PO SCH ×2 (07:50→21:14)
[2017-11-20] MEDS: LIDODERM (LIDOCAINE) PATCH 5% TD SCH (07:51)
[2017-11-20] MEDS: AMMONIUM LACTATE 12% LOTION 225 GM BTL EXT SCH ×2 (07:51→21:00)
[2017-11-20] MEDS: TIOTROPIUM BROMIDE 5 PUFF/90 MCG INH INH SCH (08:00)
[2017-11-20] MEDS ORDERED: LEVO-366 PO (09:10)
--- NOTE | 2017-11-20 09:16 | Discharge Instructions ---
Discharge Instructions Date of Service Nov 20, 2017. Admission Reason for Admission: Sepsis Discharge Discharge Diagnosis / Problem: Serratia bacteremia, unclear source, anemia Discharge Goals Goal(s): Improve function, Improve disease control Activity Recommendations Activity Limitations: resume your previous activity . Instructions / Follow-Up Instructions / Follow-Up Medications: - LEVAQUIN: antibiotic to treat Serratia bacteremia, you will take every other day, next dose is due tomorrow, if your dose falls on a dialysis day, take AFTER dialysis you need 6 more doses, the last dose will be on 12/01/17 Serratia bacteremia: unclear source of this infection, no evidence of pneumonia , UTI, abdomen soft and non-tender. Could be chronic toe wound or possibly your dialysis access site infectious disease recommends a total of 14 days from the last negative blood culture which was 11/16/17 you have been afebrile, your WBC has been normal Anemia: you received a transfusion of 2 units while in the hospital under direction of Dr. Brambila with nephrology blood counts have been stable will continue to follow with nephrology FOLLOW UP - Dr. Mcbride in one week, call for a follow up appointment - Nephrology as previously scheduled - resume outpatient dialysis as previously scheduled Current Hospital Diet Patient's current hospital diet: AHA Diet (Heart Healthy), Renal Diet Discharge Diet Recommended Diet: AHA Diet (Heart Healthy), Renal Diet Procedures Procedures Performed: Hemodialysis Blood transfusion Pending Studies Studies pending at discharge: no Medical Emergencies . Who to Call and When: Medical Emergencies: If at any time you feel your situation is an emergency, please call 911 immediately. . Non-Emergent Contact Non-Emergency issues call your: Primary Care Provider, Highway Safety Engineer Call Non-Emergent contact if: you have a fever, you have any medication questions . . "Provider Documentation" section prepared by Deepak Quintero. . VTE Core Measure Inpt VTE Proph given/why not?: Contraindicated [place] Drug Monitoring Program Search Results: no issues identified
[2017-11-20] MEDS: ONDANSETRON INJ 2 MG/ML 2 ML VIAL IV PRN (12:43)
[2017-11-20 14:48] VITALS: BP 96/62; PULSE 64; TEMP 36.7; O2SAT 94
--- NOTE | 2017-11-20 15:25 | Progress Note ---
Subjective Date of Service: Nov 20, 2017. Subjective Pt evaluation today including: conversation w/ patient, physical exam, lab review, review of inpatient medication list Pain: no pain PO Intake: poor today Voiding: no voiding problems patient feels weak today, poor appetite, no pain discussed going home today, he does not feel like he could do it will try again tomorrow, his dialysis schedule is thrown off, he had it yesterday Problem List Medical Problems: (1) Elevated troponin I level Status: Acute (2) Hypoxia Status: Acute (3) Nausea Status: Acute Review of Systems Constitutional: + weakness, + fatigue Abdomen: + nausea, + constipation, + problem reported (poor appetite) All Other Systems: Reviewed and Negative Medications Current Inpatient Medications Medications (Trade) Dose Ordered Sig/Merari Route Start Time Stop Time Status Last Admin Dose Admin Alprazolam (Xanax Tab) 0.25 mg HS PO 11/15/17 21:00 12/15/17 20:59 11/19/17 20:57 0.25 MG Amiodarone HCl (Cordarone Tab) 200 mg DAILY PO 11/15/17 09:00 12/15/17 08:59 11/20/17 07:50 200 MG Aspirin (Ecotrin Tab) 81 mg DAILY PO 11/15/17 09:00 12/15/17 08:59 11/20/17 07:50 81 MG Atorvastatin Calcium (Lipitor Tab) 40 mg DAILY PO 11/15/17 09:00 12/15/17 08:59 11/20/17 07:50 40 MG Calcium Acetate (Phoslo Cap) 667 mg TIDM PO 11/15/17 11:30 12/15/17 11:29 11/20/17 12:40 667 MG Carvedilol (Coreg Tab) 3.125 mg BID PO 11/15/17 09:00 12/15/17 08:59 11/20/17 07:50 3.125 MG Famotidine (Pepcid Tab) 20 mg DAILY PO 11/15/17 09:00 12/15/17 08:59 11/20/17 07:50 20 MG Ammonium Lactate (Lac-Hydrin) 1 appl Q12 EXT 11/15/17 09:00 12/15/17 08:59 11/18/17 08:46 1 APPL Lidocaine (Lidoderm Patch 5%) 1 patch DAILY TD 11/15/17 09:00 12/15/17 08:59 11/20/17 07:51 1 PATCH Paroxetine HCl (pAXil TAB) 20 mg DAILY PO 11/15/17 09:00 12/15/17 08:59 11/20/17 07:50 20 MG Tiotropium [place] (Spiriva Handihaler Inhaler) 1 puff DAILY INH 11/15/17 09:00 12/15/17 08:59 11/19/17 07:40 1 PUFF Trazodone HCl (Desyrel Tab) 100 mg HS PO 11/15/17 21:00 12/15/17 20:59 11/19/17 20:57 100 MG Miscellaneous Information (Order Awaiting Action) 1 ea QS N/A 11/15/17 16:00 12/15/17 15:59 Pantoprazole Sodium (Protonix Tab) 40 mg DAILY PO 11/15/17 09:00 12/15/17 08:59 11/20/17 07:50 40 MG Miscellaneous (Remove Lidoderm Patch) 1 ea DAILY@21 N/A 11/15/17 21:00 12/15/17 20:59 11/19/17 20:57 1 EA Acetaminophen (Tylenol Tab) 650 mg Q4H PRN PO 11/15/17 06:30 12/15/17 06:29 11/17/17 16:15 650 MG Al Hydrox/Mg Hydrox/Simethicone (Maalox Max Susp) 15 ml Q4H PRN PO 11/15/17 06:30 12/15/17 06:29 Magnesium Hydroxide (Milk Of Magnesia Susp) 30 ml Q12H PRN PO 11/15/17 06:30 12/15/17 06:29 Ondansetron HCl (Zofran Inj) 4 mg Q6H PRN IV 11/15/17 06:30 12/15/17 06:29 11/20/17 12:43 4 MG Nitroglycerin (Nitrostat Tab) 0.4 mg UD PRN SL 11/15/17 06:30 12/15/17 06:29 Polyethylene (Miralax Powder Packet) 17 gm DAILY PRN PO 11/15/17 06:30 12/15/17 06:29 Albuterol Sulfate (Ventolin 0.083% 2.5MG/3ML Neb) 2.5 mg Q4H PRN INH 11/15/17 06:45 12/15/17 06:44 Levofloxacin (Consult) 1 ea UD PRN N/A 11/15/17 08:45 12/15/17 08:44 Albuterol (Ventolin Hfa Inhaler) 2 puffs Q6 INH 11/17/17 12:00 12/17/17 11:59 11/20/17 12:40 2 PUFFS Albuterol Sulfate (Ventolin 0.5% 2.5MG/0.5ML Neb) 2.5 mg Q4R PRN INH 11/17/17 09:30 12/17/17 09:29 Levofloxacin 500 mg/Prmx 100 ml @ 100 mls/hr Q48H IV 11/19/17 09:00 11/30/17 23:59 11/19/17 16:41 100 MLS/HR Epoetin Eugenio (Procrit Inj) 10,000 units TODAY@0900 IV. 11/21/17 09:00 11/21/17 18:00 Polyethylene (Miralax Powder Packet) 17 gm DAILY PO 11/21/17 08:00 12/21/17 07:59 Objective Vital Signs Date Time Temp Pulse Resp B/P (MAP) Pulse Ox O2 Delivery O2 Flow Rate FiO2 11/20/17 14:48 36.7 64 20 96/62 (73) 94 Room Air 11/20/17 10:58 Nasal Cannula 2.0 11/20/17 07:09 36.7 63 18 155/74 (101) 94 Nasal Cannula 1.0 11/20/17 00:00 Room Air 11/19/17 23:18 37.4 73 18 113/58 (76) 90 Nasal Cannula 2.0 11/19/17 20:54 73 152/73 (99) 11/19/17 16:00 Room Air 11/19/17 15:46 36.6 66 20 129/66 (87) 93 Nasal Cannula 1.5 Physical Exam General Appearance: WD/WN, no apparent distress Eyes: normal inspection, EOMI, sclerae normal ENT: normal ENT inspection, hearing grossly normal, pharynx normal Neck: supple, no adenopathy, no JVD, trachea midline Respiratory/Chest: chest non-tender, lungs clear, normal breath sounds, no respiratory distress, no accessory muscle use Cardiovascular: regular rate, rhythm, no edema, no gallop, no JVD, no murmur Abdomen: normal bowel sounds, non tender, soft, no organomegaly Extremities: normal range of motion, non-tender, normal inspection, no pedal edema, no calf tenderness Neurologic/Psychiatric: 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 phone 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 II-XII 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 as tested, no motor/sensory deficits, alert, normal mood/affect, oriented x 3 Assessment and Plan 72 y/o M with - Serratia bacteremia, unclear source, repeat cultures negative could be dialysis access site, left 2nd toe, no pneumonia, no UTI on initial work up appreciate ID note, repeat cultures drawn 11/16 WBC trending down, no fevers taper back antibiotics to just Levaquin, needs 14 days from negative culture which is 11/16 wanted to send him home today but too weak, will try again tomorrow - Anemia; likely of chronic disease, ESRD transfused two units of PRBC 11/16 for Hb of 7.4, Hb 8.8 on 11/18, will check again tomorrow Reproducible chest pain, however with elevated troponin, which possible from from sepsis all from end-stage renal disease, however with some inferior inversion on EKG , and a history of CAD appreciate consult from Dr. 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
--- NOTE | 2017-11-20 15:39 | DIAGNOSTIC IMAGING REPORT ---
KUB CLINICAL HISTORY: Constipation. FINDINGS: 2 AP supine abdominal radiographs are correlated with abdominal CT dated 11/15/2017. There is a nonobstructed abdominal bowel gas pattern. Mild to moderate colonic fecal retention is observed. No evidence of intraperitoneal free air is seen on these supine images. An aortobiiliac stent graft is in place. Cholecystectomy clips are noted in the right upper quadrant. Midline sternotomy wires are present and the heart is enlarged. The skeletal structures are osteopenic. The bony pelvis is grossly intact. IMPRESSION: 1. Nonobstructed abdominal bowel gas pattern 2. Mild/moderate colonic fecal retention. 3. Additional findings as above. Electronically signed by: Walker Ellis M.D. 11/20/2017 3:38 PM Dictated Date/Time: 11/20/2017 3:36 PM
[2017-11-20 21:13] VITALS: BP 125/68; PULSE 62
[2017-11-20] MEDS: TRAZODONE HCL 100 MG TAB PO SCH (21:14)
[2017-11-20] MEDS: ALPRAZOLAM 0.25 MG TAB PO SCH (21:14)
[2017-11-20 23:02] VITALS: BP 105/53; PULSE 56; TEMP 36.8; O2SAT 96
[2017-11-21] VITALS (20 sets, daily range): BP systolic 119–158; BP diastolic 51–70; PULSE 57–69; TEMP 36.4–37.3; O2SAT 92–96
[2017-11-21] MEDS: ALBUTEROL HFA 8 GM INHALER INH SCH ×4 (05:23→23:40)
[2017-11-21 07:09] LABS: BASO % 0.3 %; BASO ABS # 0.03 K/uL (0-0.2); EOS % 1.9 %; EOS ABS # 0.23 K/uL (0-0.5); HEMATOCRIT 27.2 % (42-52); HEMOGLOBIN 8.8 g/dL (14.0-18.0); IG# 0.49 K/uL (0.00-0.02); LYMPH % 10.6 %; LYMPH ABS # 1.26 K/uL (1.2-3.4); MEAN CELL VOLUME 93.5 fL (80-100); MEAN CORPUSCULAR HEMOGLOBIN 30.2 pg (25-34); MEAN CORPUSCULAR HGB CONC 32.4 g/dl (32-36); MEAN PLATELET VOLUME 8.5 fL (7.4-10.4); MONO ABS # 1.31 K/uL (0.11-0.59); NEUT % 72.1 %; PLATELET COUNT 146 K/uL (130-400); RED CELL DISTRIBUTION WIDTH CV 14.7 % (11.5-14.5); RED CELL DISTRIBUTION WIDTH SD 50.2 fL (36.4-46.3); WHITE BLOOD COUNT 11.92 K/uL (4.8-10.8)
[2017-11-21 07:59] LABS: CREATININE 8.02 mg/dl (0.60-1.40)
[2017-11-21] MEDS ORDERED: POLYETHYLENE (MIRALAX) 17 GM PACK PO SCH ×2 (08:00→08:45)
[2017-11-21] MEDS: BREO ELLIPTA: ORDER AWAITING ACTION SCH ×3 (08:00→23:28)
[2017-11-21] MEDS: LIDODERM (LIDOCAINE) PATCH 5% TD SCH (08:00)
[2017-11-21] MEDS: CALCIUM ACETATE 667MG GELCAP PO SCH ×3 (08:23→17:30)
[2017-11-21] MEDS: AMMONIUM LACTATE 12% LOTION 225 GM BTL EXT SCH ×2 (09:00→20:34)
[2017-11-21] MEDS ORDERED: EPOETIN ALFA 10,000 UNITS/ML VIAL IV. SCH (09:00)
[2017-11-21] MEDS: TIOTROPIUM BROMIDE 5 PUFF/90 MCG INH INH SCH (09:55)
[2017-11-21] MEDS: ATORVASTATIN 40 MG TAB PO SCH (09:56)
[2017-11-21] MEDS: ASPIRIN 81 MG ECTAB PO SCH (09:56)
[2017-11-21] MEDS: FAMOTIDINE 20 MG TAB PO SCH (09:56)
[2017-11-21] MEDS ORDERED: MIDODRINE 2.5 MG TAB PO ONE (10:45)
[2017-11-21] MEDS: AMIODARONE 200 MG TAB PO SCH (14:14)
[2017-11-21] MEDS: PAROXETINE 20 MG TAB PO SCH (14:15)
[2017-11-21] MEDS: PANTOprazole SOD 40 MG TAB PO SCH (14:16)
[2017-11-21] MEDS: CARVEDILOL 3.125 MG TAB PO SCH ×2 (14:21→20:34)
--- NOTE | 2017-11-21 15:45 | Progress Note ---
Subjective Date of Service: Nov 21, 2017. Subjective Pt evaluation today including: conversation w/ patient, physical exam, lab review, review of inpatient medication list Pain: no pain PO Intake: adequate Voiding: no voiding problems patient fatigued, nauseated today, HD today Problem List Medical Problems: (1) Elevated troponin I level Status: Acute (2) Hypoxia Status: Acute (3) Nausea Status: Acute Review of Systems Constitutional: + weakness, + fatigue Abdomen: + nausea All Other Systems: Reviewed and Negative Medications Current Inpatient Medications Medications (Trade) Dose Ordered Sig/Merari Route Start Time Stop Time Status Last Admin Dose Admin Alprazolam (Xanax Tab) 0.25 mg HS PO 11/15/17 21:00 12/15/17 20:59 11/20/17 21:14 0.25 MG Amiodarone HCl (Cordarone Tab) 200 mg DAILY PO 11/15/17 09:00 12/15/17 08:59 11/21/17 14:14 200 MG Aspirin (Ecotrin Tab) 81 mg DAILY PO 11/15/17 09:00 12/15/17 08:59 11/21/17 09:56 81 MG Atorvastatin Calcium (Lipitor Tab) 40 mg DAILY PO 11/15/17 09:00 12/15/17 08:59 11/21/17 09:56 40 MG Calcium Acetate (Phoslo Cap) 667 mg TIDM PO 11/15/17 11:30 12/15/17 11:29 11/21/17 14:17 667 MG Carvedilol (Coreg Tab) 3.125 mg BID PO 11/15/17 09:00 12/15/17 08:59 11/21/17 14:21 3.125 MG Famotidine (Pepcid Tab) 20 mg DAILY PO 11/15/17 09:00 12/15/17 08:59 11/21/17 09:56 20 MG Ammonium Lactate (Lac-Hydrin) 1 appl Q12 EXT 11/15/17 09:00 12/15/17 08:59 11/18/17 08:46 1 APPL Lidocaine (Lidoderm Patch 5%) 1 patch DAILY TD 11/15/17 09:00 12/15/17 08:59 11/20/17 07:51 1 PATCH Paroxetine HCl (pAXil TAB) 20 mg DAILY PO 11/15/17 09:00 12/15/17 08:59 11/21/17 14:15 20 MG Tiotropium [place] (Spiriva Handihaler Inhaler) 1 puff DAILY INH 11/15/17 09:00 12/15/17 08:59 11/21/17 09:55 1 PUFF Trazodone HCl (Desyrel Tab) 100 mg HS PO 11/15/17 21:00 12/15/17 20:59 11/20/17 21:14 100 MG Miscellaneous Information (Order Awaiting Action) 1 ea QS N/A 11/15/17 16:00 12/15/17 15:59 Pantoprazole Sodium (Protonix Tab) 40 mg DAILY PO 11/15/17 09:00 12/15/17 08:59 11/21/17 14:16 40 MG Miscellaneous (Remove Lidoderm Patch) 1 ea DAILY@21 N/A 11/15/17 21:00 12/15/17 20:59 11/19/17 20:57 1 EA Acetaminophen (Tylenol Tab) 650 mg Q4H PRN PO 11/15/17 06:30 12/15/17 06:29 11/17/17 16:15 650 MG Al Hydrox/Mg Hydrox/Simethicone (Maalox Max Susp) 15 ml Q4H PRN PO 11/15/17 06:30 12/15/17 06:29 Magnesium Hydroxide (Milk Of Magnesia Susp) 30 ml Q12H PRN PO 11/15/17 06:30 12/15/17 06:29 Ondansetron HCl (Zofran Inj) 4 mg Q6H PRN IV 11/15/17 06:30 12/15/17 06:29 11/20/17 12:43 4 MG Nitroglycerin (Nitrostat Tab) 0.4 mg UD PRN SL 11/15/17 06:30 12/15/17 06:29 Polyethylene (Miralax Powder Packet) 17 gm DAILY PRN PO 11/15/17 06:30 12/15/17 06:29 11/20/17 21:09 17 GM Albuterol Sulfate (Ventolin 0.083% 2.5MG/3ML Neb) 2.5 mg Q4H PRN INH 11/15/17 06:45 12/15/17 06:44 Levofloxacin (Consult) 1 ea UD PRN N/A 11/15/17 08:45 12/15/17 08:44 Albuterol (Ventolin Hfa Inhaler) 2 puffs Q6 INH 11/17/17 12:00 12/17/17 11:59 11/21/17 14:17 2 PUFFS Albuterol Sulfate (Ventolin 0.5% 2.5MG/0.5ML Neb) 2.5 mg Q4R PRN INH 11/17/17 09:30 12/17/17 09:29 Levofloxacin 500 mg/Prmx 100 ml @ 100 mls/hr Q48H IV 11/19/17 09:00 11/30/17 23:59 11/19/17 16:41 100 MLS/HR Epoetin Eugenio (Procrit Inj) 10,000 units TODAY@0900 IV. 11/21/17 09:00 11/21/17 18:00 11/21/17 12:00 10,000 UNITS Polyethylene (Miralax Powder Packet) 17 gm BID PO 11/21/17 20:00 12/21/17 07:59 Objective Vital Signs Date Time Temp Pulse Resp B/P (MAP) Pulse Ox O2 Delivery O2 Flow Rate FiO2 11/21/17 14:30 36.8 11/21/17 14:07 61 154/70 (98) 96 Room Air 11/21/17 13:37 36.6 68 154/69 (97) 11/21/17 13:30 62 131/62 11/21/17 13:15 58 124/57 11/21/17 13:00 61 137/51 11/21/17 12:45 57 132/62 11/21/17 12:30 59 127/65 11/21/17 12:15 59 135/65 11/21/17 12:00 59 128/63 11/21/17 11:45 67 119/62 11/21/17 11:30 66 129/57 11/21/17 11:15 69 132/68 11/21/17 11:00 66 158/67 11/21/17 10:45 66 137/57 11/21/17 10:30 67 128/64 11/21/17 10:20 36.4 67 134/68 (90) 11/21/17 08:00 93 Room Air 11/21/17 06:54 37.3 65 18 127/67 (87) 93 Room Air 11/21/17 00:00 Room Air 11/20/17 23:02 36.8 56 18 105/53 (70) 96 Room Air 11/20/17 21:13 62 125/68 (87) 11/20/17 16:00 Room Air Physical Exam General Appearance: WD/WN, no apparent distress Eyes: normal inspection, EOMI, sclerae normal ENT: normal ENT inspection, hearing grossly normal, pharynx normal Neck: supple, no adenopathy, no JVD, trachea midline Respiratory/Chest: chest non-tender, lungs clear, normal breath sounds, no respiratory distress, no accessory muscle use Cardiovascular: regular rate, rhythm, no edema, no gallop, no JVD, no murmur Abdomen: normal bowel sounds, non tender, soft, no organomegaly Extremities: normal range of motion, non-tender, normal inspection, no pedal edema, no calf tenderness, pelvis stable Neurologic/Psychiatric: nursing techn II-XII nml as tested, no motor/sensory deficits, alert, normal mood/affect, oriented x 3 Skin: normal color, warm/dry, no rash Laboratory Results Last 24 Hours Test 11/21/17 06:23 White Blood Count 11.92 K/uL Red Blood Count 2.91 M/uL Hemoglobin 8.8 g/dL Hematocrit 27.2 % Mean Corpuscular Volume 93.5 fL Mean Corpuscular Hemoglobin 30.2 pg Mean Corpuscular Hemoglobin Concent 32.4 g/dl Platelet Count 146 K/uL Mean Platelet Volume 8.5 fL Neutrophils (%) (Auto) 72.1 % Lymphocytes (%) (Auto) 10.6 % Monocytes (%) (Auto) 11.0 % Eosinophils (%) (Auto) 1.9 % Basophils (%) (Auto) 0.3 % Neutrophils # (Auto) 8.60 K/uL Lymphocytes # (Auto) 1.26 K/uL Monocytes # (Auto) 1.31 K/uL Eosinophils # (Auto) 0.23 K/uL Basophils # (Auto) 0.03 K/uL RDW Standard Deviation 50.2 fL RDW Coefficient of Variation 14.7 % Immature Granulocyte % (Auto) 4.1 % Immature Granulocyte # (Auto) 0.49 K/uL Anisocytosis PRESENT Sodium Level 133 mmol/L Potassium Level 4.0 mmol/L Chloride Level 97 mmol/L Carbon Dioxide Level 26 mmol/L Anion Gap 10.0 mmol/L Blood Urea Nitrogen 54 mg/dl Creatinine 8.02 mg/dl Est Creatinine Clear Calc Drug Dose 10.6 ml/min Estimated GFR () 7.0 Estimated GFR (Non- 6.0 BUN/Creatinine Ratio 6.7 Random Glucose 78 mg/dl Calcium Level 9.0 mg/dl Assessment and Plan 72 y/o M with - Serratia bacteremia, unclear source, repeat cultures negative could be dialysis access site, left 2nd toe, no pneumonia, no UTI on initial work up appreciate ID note, repeat cultures drawn 11/16 complete Levaquin, needs 14 days from negative culture which is 11/16 HD today, too weak to go home, try again tomorrow - Anemia; likely of chronic disease, ESRD transfused two units of PRBC 11/16 for Hb of 7.4, Hb 8.8 today, stable for several days Reproducible chest pain, however with elevated troponin, which possible from from sepsis all from end-stage renal disease, however with some inferior inversion on EKG , and a history of CAD appreciate consult from Dr. 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
[2017-11-21] MEDS: LEVOFLOXACIN 500MG / D5W IV SCH (16:14)
[2017-11-21] MEDS: POLYETHYLENE (MIRALAX) 17 GM PACK PO SCH (20:32)
[2017-11-21] MEDS: TRAZODONE HCL 100 MG TAB PO SCH (20:34)
[2017-11-21] MEDS: ALPRAZOLAM 0.25 MG TAB PO SCH (20:46)
[2017-11-22] MEDS: ALBUTEROL HFA 8 GM INHALER INH SCH ×3 (05:45→18:11)
[2017-11-22 07:03] VITALS: BP 143/67; PULSE 62; TEMP 36.7; O2SAT 94
[2017-11-22 08:00] VITALS: O2SAT 94
[2017-11-22] MEDS: BREO ELLIPTA: ORDER AWAITING ACTION SCH ×2 (08:00→15:49)
[2017-11-22] MEDS: LIDODERM (LIDOCAINE) PATCH 5% TD SCH (08:00)
[2017-11-22] MEDS: PANTOprazole SOD 40 MG TAB PO SCH (08:05)
[2017-11-22] MEDS: TIOTROPIUM BROMIDE 5 PUFF/90 MCG INH INH SCH (08:06)
[2017-11-22] MEDS: ASPIRIN 81 MG ECTAB PO SCH (08:08)
[2017-11-22] MEDS: ATORVASTATIN 40 MG TAB PO SCH (08:08)
[2017-11-22] MEDS: CARVEDILOL 3.125 MG TAB PO SCH ×2 (08:08→20:31)
[2017-11-22] MEDS: AMIODARONE 200 MG TAB PO SCH (08:08)
[2017-11-22] MEDS: FAMOTIDINE 20 MG TAB PO SCH (08:09)
[2017-11-22] MEDS: POLYETHYLENE (MIRALAX) 17 GM PACK PO SCH ×2 (08:09→20:31)
[2017-11-22] MEDS: CALCIUM ACETATE 667MG GELCAP PO SCH ×3 (08:10→17:24)
[2017-11-22] MEDS: PAROXETINE 20 MG TAB PO SCH (08:10)
[2017-11-22] MEDS: AMMONIUM LACTATE 12% LOTION 225 GM BTL EXT SCH ×2 (08:11→20:39)
[2017-11-22] MEDS: ONDANSETRON INJ 2 MG/ML 2 ML VIAL IV PRN ×2 (08:43→18:28)
[2017-11-22] MEDS ORDERED: ONDANSETRON INJ 2 MG/ML 2 ML VIAL IV STA (13:10)
[2017-11-22] MEDS ORDERED: SOD PHOSPHATE/SOD BIPHOSPHATE ENEMA 132 ML BTL PR ONE (13:30)
[2017-11-22] MEDS ORDERED: ONDANSETRON INJ 8 MG in DEXTROSE 5% 50ML 50 ML IV ONE (13:45)
[2017-11-22 14:34] VITALS: BP 109/49; PULSE 57; TEMP 36.9; O2SAT 97
[2017-11-22 16:06] VITALS: O2SAT 97
--- NOTE | 2017-11-22 16:43 | Progress Note ---
Subjective Date of Service: Nov 22, 2017. Subjective Pt evaluation today including: conversation w/ patient, physical exam, lab review, review of studies, review of inpatient medication list Pain: no pain PO Intake: nausea and vomiting after lunch Voiding: no voiding problems continues to feel weak, vomiting again after lunch KUB showed stool in colon, no obstruction planning on enema but patient moved bowels in afternoon prior to administration discussed with patient that I feel he is too weak to go home he said when he was at rehab before he was there for 2 months he reports he has been to rehab so many times in the past that he "cannot remember how many" says he lives on one story with his sister his plan would be to try to walk more around the house to build up his strength still not ready for discharge due to vomiting if vomiting persists tomorrow despite moving bowels then may need to consider GI consult Problem List Medical Problems: (1) Elevated troponin I level Status: Acute (2) Hypoxia Status: Acute (3) Nausea Status: Acute Review of Systems Constitutional: + weakness, + fatigue Abdomen: + nausea, + vomiting, + constipation Neurologic: + weakness All Other Systems: Reviewed and Negative Medications Current Inpatient Medications Medications (Trade) Dose Ordered Sig/Merari Route Start Time Stop Time Status Last Admin Dose Admin Alprazolam (Xanax Tab) 0.25 mg HS PO 11/15/17 21:00 12/15/17 20:59 11/21/17 20:46 0.25 MG Amiodarone HCl (Cordarone Tab) 200 mg DAILY PO 11/15/17 09:00 12/15/17 08:59 11/22/17 08:08 200 MG Aspirin (Ecotrin Tab) 81 mg DAILY PO 11/15/17 09:00 12/15/17 08:59 11/22/17 08:08 81 MG Atorvastatin Calcium (Lipitor Tab) 40 mg DAILY PO 11/15/17 09:00 12/15/17 08:59 11/22/17 08:08 40 MG Calcium Acetate (Phoslo Cap) 667 mg TIDM PO 11/15/17 11:30 12/15/17 11:29 11/22/17 08:10 667 MG Carvedilol (Coreg Tab) 3.125 mg BID PO 11/15/17 09:00 12/15/17 08:59 11/22/17 08:08 3.125 MG Famotidine (Pepcid Tab) 20 mg DAILY PO 11/15/17 09:00 12/15/17 08:59 11/22/17 08:09 20 MG Ammonium Lactate (Lac-Hydrin) 1 appl Q12 EXT 11/15/17 09:00 12/15/17 08:59 11/21/17 20:34 1 APPL Lidocaine (Lidoderm Patch 5%) 1 patch DAILY TD 11/15/17 09:00 12/15/17 08:59 11/20/17 07:51 1 PATCH Paroxetine HCl (pAXil TAB) 20 mg DAILY PO 11/15/17 09:00 12/15/17 08:59 11/22/17 08:10 20 MG Tiotropium [place] (Spiriva Handihaler Inhaler) 1 puff DAILY INH 11/15/17 09:00 12/15/17 08:59 11/22/17 08:06 1 PUFF Trazodone HCl (Desyrel Tab) 100 mg HS PO 11/15/17 21:00 12/15/17 20:59 11/21/17 20:34 100 MG Miscellaneous Information (Order Awaiting Action) 1 ea QS N/A 11/15/17 16:00 12/15/17 15:59 Pantoprazole Sodium (Protonix Tab) 40 mg DAILY PO 11/15/17 09:00 12/15/17 08:59 11/22/17 08:05 40 MG Miscellaneous (Remove Lidoderm Patch) 1 ea DAILY@21 N/A 11/15/17 21:00 12/15/17 20:59 11/19/17 20:57 1 EA Acetaminophen (Tylenol Tab) 650 mg Q4H PRN PO 11/15/17 06:30 12/15/17 06:29 11/17/17 16:15 650 MG Al Hydrox/Mg Hydrox/Simethicone (Maalox Max Susp) 15 ml Q4H PRN PO 11/15/17 06:30 12/15/17 06:29 Magnesium Hydroxide (Milk Of Magnesia Susp) 30 ml Q12H PRN PO 11/15/17 06:30 12/15/17 06:29 Ondansetron HCl (Zofran Inj) 4 mg Q6H PRN IV 11/15/17 06:30 12/15/17 06:29 11/22/17 08:43 4 MG Nitroglycerin (Nitrostat Tab) 0.4 mg UD PRN SL 11/15/17 06:30 12/15/17 06:29 Polyethylene (Miralax Powder Packet) 17 gm DAILY PRN PO 11/15/17 06:30 12/15/17 06:29 11/20/17 21:09 17 GM Albuterol Sulfate (Ventolin 0.083% 2.5MG/3ML Neb) 2.5 mg Q4H PRN INH 11/15/17 06:45 12/15/17 06:44 Levofloxacin (Consult) 1 ea UD PRN N/A 11/15/17 08:45 12/15/17 08:44 Albuterol (Ventolin Hfa Inhaler) 2 puffs Q6 INH 11/17/17 12:00 12/17/17 11:59 11/22/17 13:06 2 PUFFS Albuterol Sulfate (Ventolin 0.5% 2.5MG/0.5ML Neb) 2.5 mg Q4R PRN INH 11/17/17 09:30 12/17/17 09:29 Levofloxacin 500 mg/Prmx 100 ml @ 100 mls/hr Q48H IV 11/19/17 09:00 11/30/17 23:59 11/21/17 16:14 100 MLS/HR Polyethylene (Miralax Powder Packet) 17 gm BID PO 11/21/17 20:00 12/21/17 07:59 11/22/17 08:09 17 GM Midodrine (Proamatine Tab) 5 mg TODAY@1630,1930 PO 11/22/17 16:30 11/22/17 23:59 Objective Vital Signs Date Time Temp Pulse Resp B/P (MAP) Pulse Ox O2 Delivery O2 Flow Rate FiO2 11/22/17 16:06 97 Room Air 11/22/17 14:34 36.9 57 20 109/49 (69) 97 Room Air 11/22/17 08:00 94 Room Air 11/22/17 07:03 36.7 62 18 143/67 (92) 94 Nasal Cannula 2.0 11/22/17 00:00 Room Air 11/21/17 22:56 36.7 63 18 131/69 (89) 92 Nasal Cannula 2.0 11/21/17 21:28 Room Air 11/21/17 17:11 Room Air Physical Exam General Appearance: WD/WN, no apparent distress Eyes: normal inspection, EOMI, sclerae normal ENT: normal ENT inspection, hearing grossly normal, pharynx normal Neck: supple, no adenopathy, no JVD, trachea midline Respiratory/Chest: chest non-tender, lungs clear, normal breath sounds, no respiratory distress, no accessory muscle use Cardiovascular: regular rate, rhythm, no edema, no gallop, no JVD, no murmur Abdomen: normal bowel sounds, non tender, soft, no organomegaly Extremities: normal range of motion, non-tender, normal inspection, no calf tenderness, pelvis stable Neurologic/Psychiatric: certified home health aide II-XII nml as tested, alert, normal mood/affect, oriented x 3, + motor weakness (profound, cannot transition independently) Skin: normal color, warm/dry, no rash Assessment and Plan 72 y/o M with - Serratia bacteremia, unclear source, repeat cultures negative could be dialysis access site, left 2nd toe, no pneumonia, no UTI on initial work up appreciate ID note, repeat cultures drawn 11/16 complete Levaquin, needs 14 days from negative culture which is 11/16 HD today, too weak to go home, keep encouraging him to consider rehab but he refuses - Anemia; likely of chronic disease, ESRD transfused two units of PRBC 11/16 for Hb of 7.4, Hb 8.8 yesterday, stable for several days - Vomiting: intermittent at first but now more consistent, poor intake was constipated for several day, finally moved bowels today, two small BM and one medium BM if vomiting continues despite moving bowels then could consider GI consult Reproducible chest pain, however with elevated troponin, which possible from from sepsis all from end-stage renal disease, however with some inferior inversion on EKG , and a history of CAD appreciate consult from Dr. 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
--- NOTE | 2017-11-22 16:56 | PROGRESS NOTE ---
DATE: 11/22/2017 SUBJECTIVE: A 72-year-old male with end-stage renal disease, admitted with serratia bacteremia with unclear source of infection. Repeat cultures are negative. The patient continues to be tired, constipated, decreased appetite. He had dialysis yesterday and really did not have any problem, even his blood pressure did not drop even though he did not get any midodrine, but he really wants to get midodrine with dialysis and specifically asks for this. PHYSICAL EXAMINATION: GENERAL: Awake, alert, oriented x3. HEENT: Mucous membrane is moist. NECK: Supple. No jugular venous distention. LUNGS: Clear to auscultation. HEART: Regular rate and rhythm. ABDOMEN: Soft, nontender. EXTREMITIES: Show evidence of chronic venous stasis with multiple skin breakdowns as well as permanent skin staining. LABORATORY TESTS: This morning, he did not have any labs done. Yesterday sodium was 133, potassium 4.0, BUN 54, creatinine 8.02, WBC count 11.92, platelet count 146. Medication list was reviewed. ASSESSMENT AND PLAN: A 72-year-old old male with end-stage renal disease normally on Thursday, Thursday, Thursday; admitted with serratia bacteremia. 1. End-stage renal disease. He has not had much fluid removed with his dialysis for the last few sessions. He is not having any issues with low blood pressure at this time. We will try to attempt 2 kilo of fluid removal tomorrow. He normally gets midodrine just before the start of dialysis as well as at the final half hour. He is specifically asking for midodrine to be given with dialysis tomorrow. We will give midodrine as requested tomorrow. YULY
[2017-11-22] MEDS: MIDODRINE 2.5 MG TAB PO SCH (19:30)
[2017-11-22] MEDS: TRAZODONE HCL 100 MG TAB PO SCH (20:30)
[2017-11-22] MEDS: ALPRAZOLAM 0.25 MG TAB PO SCH (20:30)
[2017-11-22 22:56] VITALS: BP 117/67; PULSE 56; TEMP 36.7; O2SAT 93
[2017-11-23] VITALS (21 sets, daily range): BP systolic 112–138; BP diastolic 49–68; PULSE 54–72; TEMP 36.6–36.9; O2SAT 92–98
[2017-11-23] MEDS: ALBUTEROL HFA 8 GM INHALER INH SCH ×4 (06:00→15:41)
[2017-11-23] MEDS: CALCIUM ACETATE 667MG GELCAP PO SCH ×2 (07:58→15:41)
[2017-11-23] MEDS: FAMOTIDINE 20 MG TAB PO SCH (07:59)
[2017-11-23] MEDS: ASPIRIN 81 MG ECTAB PO SCH (07:59)
[2017-11-23] MEDS: ATORVASTATIN 40 MG TAB PO SCH (07:59)
[2017-11-23] MEDS: PANTOprazole SOD 40 MG TAB PO SCH (07:59)
[2017-11-23] MEDS: BREO ELLIPTA: ORDER AWAITING ACTION SCH ×3 (08:00→15:41)
[2017-11-23] MEDS: LIDODERM (LIDOCAINE) PATCH 5% TD SCH (08:00)
[2017-11-23] MEDS: POLYETHYLENE (MIRALAX) 17 GM PACK PO SCH (08:00)
[2017-11-23] MEDS: CARVEDILOL 3.125 MG TAB PO SCH (08:00)
[2017-11-23] MEDS: AMIODARONE 200 MG TAB PO SCH (08:01)
[2017-11-23] MEDS: PAROXETINE 20 MG TAB PO SCH (08:01)
[2017-11-23] MEDS: AMMONIUM LACTATE 12% LOTION 225 GM BTL EXT SCH (08:10)
[2017-11-23] MEDS: ONDANSETRON INJ 2 MG/ML 2 ML VIAL IV PRN (08:19)
[2017-11-23] MEDS ORDERED: EPOETIN ALFA 10,000 UNITS/ML VIAL IV SCH (09:00)
[2017-11-23] MEDS ORDERED: IRON SUCROSE INJ 100 MG in SYRINGE 0 ML IV SCH (09:00)
--- NOTE | 2017-11-23 09:15 | Hospitalist Progress Note ---
Hospitalist Progress Note Date of Service Nov 23, 2017. Subjective Pt evaluation today including: conversation w/ patient, physical exam, chart review, lab review, review of studies Pain: Low back pain, near belt line, pt reports chronic PO Intake: Fair Voiding: no voiding problems (makes some urine) The patient was seen and examined this morning. Pt was seen in dialysis this morning. He was sleeping but easily awakened. Pt reports eating some toast and coffee this morning, but felt slightly nauseous , although denied needing medication or vomiting. His bowels moved yesterday. He reports having some chronic low back pain, uses a lidocaine patch for relief. He is from home, sister plans to transport him to her home. He uses a walker for ambulation. Constitutional: No fever, No chills, No sweats Eyes: No redness, No discharge ENT: No nasal symptoms Respiratory: No cough, No wheezing, No shortness of breath Cardiovascular: No chest pain, No PND Abdomen: + nausea, No pain, No vomiting, No diarrhea, No constipation Musculoskeletal: No joint pain, No muscle pain, No swelling Male : No dysuria Neurologic: No numbness/tingling Objective Vital Signs Date Time Temp Pulse Resp B/P (MAP) Pulse Ox O2 Delivery O2 Flow Rate FiO2 11/23/17 07:04 36.7 72 18 131/68 (89) 92 Nasal Cannula 2.0 11/22/17 23:00 Room Air 11/22/17 22:56 36.7 56 18 117/67 (84) 93 Room Air 11/22/17 16:06 97 Room Air 11/22/17 14:34 36.9 57 20 109/49 (69) 97 Room Air Physical Exam General Appearance: WD/WN, no apparent distress, + pertinent finding (sleeping upon entry but easily awakened, undergoing dialysis) Eyes: PERRL, EOMI ENT: hearing grossly normal, pharynx normal, + pertinent finding (MM dry) Neck: supple, no JVD Respiratory/Chest: no respiratory distress, + pertinent finding (Diminished aeration throughout, no adventitious breath sounds, on 2 L via NC) Cardiovascular: regular rate, rhythm, no JVD, no murmur Abdomen: normal bowel sounds, non tender, soft Extremities: non-tender, no calf tenderness, + pertinent finding (chronic venous stasis changes BLE, minimal pedal edema nonpitting) Neurologic/Psychiatric: alert, normal mood/affect, oriented x 3, + motor weakness (unable to transition independently) Skin: warm/dry Assessment and Plan 72 y/o M with Serratia bacteremia, unclear source, repeat cultures negative - could be dialysis access site, left 2nd toe, no pneumonia, no UTI on initial work up - appreciate ID note, repeat cultures drawn 11/16 complete Levaquin, needs 14 days from negative culture which is 11/16 - continue renal dosing and will switch to PO dosing today. - HD today to resume normal schedule, pt gets midodrine 30 min prior and during the last 30 min. - Keep encouraging him to consider rehab but he refuses - sister to take transport home, lives w/ pt. Anemia; likely of chronic disease, ESRD - transfused two units of PRBC 11/16 for Hb of 7.4, Hb 8.8 on 11/21, stable for several days Vomiting: intermittent at first but now more consistent, poor intake - seems improved today, will assess to see how he tolerates lunch/dinner after dialysis today. - was constipated for several days - now resolved - if vomiting continues despite moving bowels then could consider GI consult Reproducible chest pain, however with elevated troponin, which possible from from sepsis all from end-stage renal disease, however with some inferior inversion on EKG , and a history of CAD - Cardiology consulted - Dr. 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 History of Diastolic CHF - stable PAF/ COPD: We will continue current care GI and DVT prophylaxis is covered CODE: Full code Disposition: From home, PT/OT on board, encourage rehab however pt refuses, possible d/c today or tomorrow.
[2017-11-23] MEDS: TIOTROPIUM BROMIDE 5 PUFF/90 MCG INH INH SCH (10:01)
[2017-11-23] MEDS: MIDODRINE 2.5 MG TAB PO SCH ×3 (10:21→13:30)
--- NOTE | 2017-11-23 12:30 | Dialysis Progress Note ---
Nephrology Dialysis Note Date of Service: Nov 23, 2017. Subjective c/o N and yesterday w/ emesis; no edema, no sob Objective Date Time Temp Pulse Resp B/P (MAP) Pulse Ox O2 Delivery O2 Flow Rate FiO2 11/23/17 11:45 59 122/52 11/23/17 11:30 63 120/64 11/23/17 11:15 59 112/55 11/23/17 11:00 58 114/49 11/23/17 10:47 36.9 58 130/62 (84) 11/23/17 08:00 92 Nasal Cannula 2.0 11/23/17 07:04 36.7 72 18 131/68 (89) 92 Nasal Cannula 2.0 11/22/17 23:00 Room Air 11/22/17 22:56 36.7 56 18 117/67 (84) 93 Room Air 11/22/17 16:06 97 Room Air 11/22/17 14:34 36.9 57 20 109/49 (69) 97 Room Air Physical Exam: General-on RA A& 0 x 3 Eyes-eomi ENT dry mm Neck-supple Lungs-diminished Heart-RRR Abdomen-soft NT + BS no yoon Extremities-no edema; AVF RUE + t/b Neuro-tompkins, fluent speech Current Inpatient Medications Medications (Trade) Dose Ordered Sig/Merari Route Start Time Stop Time Status Last Admin Dose Admin Alprazolam (Xanax Tab) 0.25 mg HS PO 11/15/17 21:00 12/15/17 20:59 11/22/17 20:30 0.25 MG Amiodarone HCl (Cordarone Tab) 200 mg DAILY PO 11/15/17 09:00 12/15/17 08:59 11/23/17 08:01 200 MG Aspirin (Ecotrin Tab) 81 mg DAILY PO 11/15/17 09:00 12/15/17 08:59 11/23/17 07:59 81 MG Atorvastatin Calcium (Lipitor Tab) 40 mg DAILY PO 11/15/17 09:00 12/15/17 08:59 11/23/17 07:59 40 MG Calcium Acetate (Phoslo Cap) 667 mg TIDM PO 11/15/17 11:30 12/15/17 11:29 11/23/17 07:58 667 MG Carvedilol (Coreg Tab) 3.125 mg BID PO 11/15/17 09:00 12/15/17 08:59 11/22/17 20:31 3.125 MG Famotidine (Pepcid Tab) 20 mg DAILY PO 11/15/17 09:00 12/15/17 08:59 11/23/17 07:59 20 MG Ammonium Lactate (Lac-Hydrin) 1 appl Q12 EXT 11/15/17 09:00 12/15/17 08:59 11/21/17 20:34 1 APPL Lidocaine (Lidoderm Patch 5%) 1 patch DAILY TD 11/15/17 09:00 12/15/17 08:59 11/20/17 07:51 1 PATCH Paroxetine HCl (pAXil TAB) 20 mg DAILY PO 11/15/17 09:00 12/15/17 08:59 11/23/17 08:01 20 MG Tiotropium [place] (Spiriva Handihaler Inhaler) 1 puff DAILY INH 11/15/17 09:00 12/15/17 08:59 11/23/17 10:01 1 PUFF Trazodone HCl (Desyrel Tab) 100 mg HS PO 11/15/17 21:00 12/15/17 20:59 11/22/17 20:30 100 MG Miscellaneous Information (Order Awaiting Action) 1 ea QS N/A 11/15/17 16:00 12/15/17 15:59 Pantoprazole Sodium (Protonix Tab) 40 mg DAILY PO 11/15/17 09:00 12/15/17 08:59 11/23/17 07:59 40 MG Miscellaneous (Remove Lidoderm Patch) 1 ea DAILY@21 N/A 11/15/17 21:00 12/15/17 20:59 11/22/17 20:39 1 EA Acetaminophen (Tylenol Tab) 650 mg Q4H PRN PO 11/15/17 06:30 12/15/17 06:29 11/17/17 16:15 650 MG Al Hydrox/Mg Hydrox/Simethicone (Maalox Max Susp) 15 ml Q4H PRN PO 11/15/17 06:30 12/15/17 06:29 Magnesium Hydroxide (Milk Of Magnesia Susp) 30 ml Q12H PRN PO 11/15/17 06:30 12/15/17 06:29 Ondansetron HCl (Zofran Inj) 4 mg Q6H PRN IV 11/15/17 06:30 12/15/17 06:29 11/23/17 08:19 4 MG Nitroglycerin (Nitrostat Tab) 0.4 mg UD PRN SL 11/15/17 06:30 12/15/17 06:29 Polyethylene (Miralax Powder Packet) 17 gm DAILY PRN PO 11/15/17 06:30 12/15/17 06:29 11/20/17 21:09 17 GM Albuterol Sulfate (Ventolin 0.083% 2.5MG/3ML Neb) 2.5 mg Q4H PRN INH 11/15/17 06:45 12/15/17 06:44 Albuterol (Ventolin Hfa Inhaler) 2 puffs Q6 INH 11/17/17 12:00 12/17/17 11:59 11/23/17 06:12 2 PUFFS Albuterol Sulfate (Ventolin 0.5% 2.5MG/0.5ML Neb) 2.5 mg Q4R PRN INH 11/17/17 09:30 12/17/17 09:29 Polyethylene (Miralax Powder Packet) 17 gm BID PO 11/21/17 20:00 12/21/17 07:59 11/22/17 20:31 17 GM Iron Sucrose 100 mg/Syringe 5 ml @ 0 mls/min TODAY IV 11/23/17 09:00 11/23/17 18:00 Levofloxacin (Levaquin Tab) 500 mg Q48H PO 11/23/17 12:00 11/30/17 11:59 UNV Assessment & Plan 72 year old male w/ ESRD on MWF HD admitted w/ serratia bacteremia after presenting w/ F to 39.5, cough, dyspnea. Also noted to have some ECG changes on presentation ESRD -routine HD today w/ goal 1.5L UF to get him back on MWF schedule; most recent labs reviewed -he has acceptable chemistries, blood pressures, and volume status at the present time >>>cont midodrine pre/during hd Anemia of chronic disease -continue venofer and procrit w/ HD <> orders in -pls check cbc daily Sepsis -- potential sources include osteomyelitis, pneumonia. it is unlikely that he would have infection related to AVF. repeat blood cxs negative Appreciate consult; will follow with you.
[2017-11-23] MEDS ORDERED: LEVOFLOXACIN 500 MG TAB PO SCH (13:00)
[2017-11-23] MEDS ORDERED: LEVO-366 PO (14:02)
--- NOTE | 2017-11-23 14:12 | Discharge Summary ---
Discharge Summary Date of Service Nov 23, 2017. Discharge Summary Admission Date: Nov 15, 2017 at 06:26 Discharge Date: Nov 20, 2017 Discharge Disposition: Home with services Principal Diagnosis: Serratia bacteremia, unclear source Problems/Secondary Diagnoses: Medical Problems: (1) AAA (abdominal aortic aneurysm) (2) Anemia of chronic disease (3) Anxiety (4) Atrial fibrillation (5) CAD (coronary artery disease) (6) Chest pain (7) Chronic GERD (8) Diastolic CHF (9) Elevated troponin (10) ESRD (end stage renal disease) on dialysis (11) Gram negative sepsis (12) Sepsis (13) Shortness of breath Surgical Problems: (1) S/P AAA repair (2) S/P ablation of atrial fibrillation (3) S/P CABG x 2 (4) S/P cholecystectomy (5) S/P femoral-popliteal bypass surgery (6) S/P MVR (mitral valve repair) Immunizations: Have You Had Influenza Vaccine: Unknown History of Tetanus Vaccine?: Unknown History of Pneumococcal: Unknown History of Hepatitis B Vaccine: Unknown Consultations: Cardiology Infectious disease Wound care Nephrology Medication Reconciliation New Medications: Levofloxacin (Levaquin) 500 Mg Tab 500 MG PO Q2D for 11 Days, #4 TAB take after HD if dose due on dialsysis day, last dose will be on 12/01/17 Continued Medications: Acetaminophen (Tylenol) 325 Mg Tab 650 MG PO Q6H PRN for Pain or Fever, TAB Acetaminophen/Diphenhydramine (Tylenol Pm) 500 Mg/25 Mg Tab 1 TAB PO HS, TAB take at hs with temazepam Albuterol Sulfate (Proventil Hfa) 108 Mcg/Act Aer 2 PUFF INH Q 6H Alprazolam (Xanax) 0.5 Mg Tab 0.25 MG PO HS, TAB Amiodarone Hcl (Cordarone) 200 Mg Tab 200 MG PO every other day, TAB Aspirin (Aspirin Ec) 81 Mg Tab 81 MG PO DAILY Atorvastatin (Lipitor) 40 Mg Tab 40 MG PO DAILY for 90 Days, #90 TAB 1 Refill Calcium Acetate (Phoslo 667 Mg) 667 Mg Cap 1 TAB PO WM, CAP Carvedilol (Coreg) 3.125 Mg Tab 3.125 MG PO BID, TAB Cyanocobalamin (Vitamin B-12) 100 Mcg Tab 100 MCG PO 3XWK, TAB TUES, THURS, SAT Famotidine (Famotidine) 20 Mg Tab 20 MG PO DAILY Fluticasone Furoate-Vilanterol (Breo Ellipta 200-25 Mcg/INH) 1 Inh Inh 1 INHA PO DAILY Lactic Acid (Ammonium Lactate) (Ammonium Lactate) 12 % Lot 1 APPLN EXT Q12 Lidocaine (Lidocaine) 5 % Pad 1 PATCH EXT DAILY Midodrine Hcl (Midodrine Hcl) 2.5 Mg Tab 5 MG PO UD take dose in am, on dialysis days take second dose prior to dialysis Nitroglycerin (Nitrostat) 0.4 Mg Tab 0.4 MG UT PRN PRN for chest pain, BTL Omeprazole (Prilosec) 20 Mg Capcr 20 MG PO DAILY, CAP Paroxetine (Paxil) 20 Mg Tab 20 MG PO QHS, TAB Polyethylene Glycol 3350 (Miralax) 1 Pow Pow 17 GM PO BID, #255 GM Temazepam (Restoril) 30 Mg Cap 30 MG PO HS, CAP Tiotropium [place] (Spiriva Handihaler) 30 Puff/540 Mcg Aerp 1 CAP INH DAILY for 30 Days, #30 CAP 3 Refills Trazodone Hcl (Trazodone) 100 Mg Tab 100 MG PO QHS, TAB Discharge Exam Subjective Pt evaluation today including: conversation w/ patient, physical exam, chart review, lab review, review of studies Pain: Low back pain, near belt line, pt reports chronic PO Intake: Fair Voiding: no voiding problems (makes some urine) The patient was seen and examined this morning. Pt was seen in dialysis this morning. He was sleeping but easily awakened. Pt reports eating some toast and coffee this morning, but felt slightly nauseous , although denied needing medication or vomiting. His bowels moved yesterday. He reports having some chronic low back pain, uses a lidocaine patch for relief. He is from home, sister plans to transport him to her home. He uses a walker for ambulation. Constitutional: No fever, No chills, No sweats Eyes: No redness, No discharge ENT: No nasal symptoms Respiratory: No cough, No wheezing, No shortness of breath Cardiovascular: No chest pain, No PND Abdomen: + nausea, No pain, No vomiting, No diarrhea, No constipation Musculoskeletal: No joint pain, No muscle pain, No swelling Male : No dysuria Neurologic: No numbness/tingling Objective Vital Signs Date Time Temp Pulse Resp B/P (MAP) Pulse Ox O2 Delivery O2 Flow Rate FiO2 11/23/17 07:04 36.7 72 18 131/68 (89) 92 Nasal Cannula 2.0 11/22/17 23:00 Room Air 11/22/17 22:56 36.7 56 18 117/67 (84) 93 Room Air 11/22/17 16:06 97 Room Air 11/22/17 14:34 36.9 57 20 109/49 (69) 97 Room Air Physical Exam General Appearance: WD/WN, no apparent distress, + pertinent finding (sleeping upon entry but easily awakened, undergoing dialysis) Eyes: PERRL, EOMI ENT: hearing grossly normal, pharynx normal, + pertinent finding (MM dry) Neck: supple, no JVD Respiratory/Chest: no respiratory distress, + pertinent finding (Diminished aeration throughout, no adventitious breath sounds, on 2 L via NC) Cardiovascular: regular rate, rhythm, no JVD, no murmur Abdomen: normal bowel sounds, non tender, soft Extremities: non-tender, no calf tenderness, + pertinent finding (chronic venous stasis changes BLE, minimal pedal edema nonpitting) Neurologic/Psychiatric: alert, normal mood/affect, oriented x 3, + motor weakness Skin: warm/dry Hospital Course 72 y/o M with Serratia bacteremia, unclear source, repeat cultures negative - could be dialysis access site, left 2nd toe, no pneumonia, no UTI on initial work up - appreciate ID note, repeat cultures drawn 11/16 complete Levaquin, needs 14 days from negative culture which is 11/16 - continue renal dosing and will switch to PO dosing today. - Finish on 12/01. - HD today to resume normal schedule, pt gets midodrine 30 min prior and during the last 30 min. - Keep encouraging him to consider rehab but he refuses - sister to take transport home, lives w/ pt. Have arranged for 1 week fu with PCP. Anemia; likely of chronic disease, ESRD - transfused two units of PRBC 11/16 for Hb of 7.4, Hb 8.8 on 11/21, stable for several days Vomiting: intermittent at first but now more consistent, poor intake - improved PO intake prior to discharge - was constipated for several days - now resolved - if vomiting continues despite moving bowels then could consider GI consult in outpt setting. Reproducible chest pain, however with elevated troponin, which possible from from sepsis all from end-stage renal disease, however with some inferior inversion on EKG , and a history of CAD - Cardiology consulted - Dr. 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 History of Diastolic CHF - stable PAF/ COPD: We will continue current care GI and DVT prophylaxis is covered CODE: Full code Disposition: From home, PT/OT on board, discharge today as pt has refused placement for rehab. Total Time Spent: Greater than 30 minutes This includes examination of the patient, discharge planning, medication reconciliation, and communication with other providers. Discharge Instructions Please refer to the electronic Patient Visit Report (Discharge Instructions) for additional information. Follow-Up Follow up with your Primary Care Provider within 1 week. Follow up with nephrology for HD as regularly scheduled. Follow up with wound clinic as regularly scheduled. Additional Copies To Pavel Mcbride D.O.
== END 2017-11-23 17:30 | disposition home or self-care (01) | DRG 871 ==
LOC: EDBD 02:37 → C.EDA 02:39 → C.2E 06:26 → ENRESERV 06:40 → C.MS4W 11-18 13:50
PROVIDERS: ADMIT Internal Medicine; ATTEND Hospitalist
DX: A41.9 Sepsis, unspecified organism (principal); N18.6 End stage renal disease; I50.30 Unspecified diastolic (congestive) heart failure; M86.172 Other acute osteomyelitis, left ankle and foot; F41.9 Anxiety disorder, unspecified; I48.91 Unspecified atrial fibrillation; K21.9 Gastro-esophageal reflux disease without esophagitis; I25.10 Atherosclerotic heart disease of native coronary artery without angina pectoris; I48.0 Paroxysmal atrial fibrillation; J44.9 Chronic obstructive pulmonary disease, unspecified; D72.829 Elevated white blood cell count, unspecified; F32.9 Major depressive disorder, single episode, unspecified; G47.33 Obstructive sleep apnea (adult) (pediatric); D63.1 Anemia in chronic kidney disease; Z96.653 Presence of artificial knee joint, bilateral; Z99.2 Dependence on renal dialysis; Z95.1 Presence of aortocoronary bypass graft; Z90.49 Acquired absence of other specified parts of digestive tract; Z79.82 Long term (current) use of aspirin

== ENCOUNTER → 2017-12-22 | Outpatient (CLI) | payer OTHER, BC ==
[~2017-12-22] MED LIST changes: +CARV3.122 PO; -CRG3125 PO; +DIPH-437 PO; +LACT12LO28 EXT; -LCHC12280 TOP; +LEVO-366 PO; +LIDO1PAD2 EXT; +MIDO2.5T PO; +NTRGSL/4 UT; -NTRSLP4 SL; +POLY335019 PO; -PRMT25 PO
[2017-12-22 14:02] LABS: ALBUMIN 2.7 gm/dl (3.4-5.0); ALKALINE PHOSPHATASE 118 U/L (45-117); ALT/SGPT 9 U/L (12-78); AST/SGOT 8 U/L (15-37); BLOOD UREA NITROGEN 21 mg/dl (7-18); CALCIUM 8.3 mg/dl (8.5-10.1); CARBON DIOXIDE 30 mmol/L (21-32); CREATININE 4.69 mg/dl (0.60-1.40); GLUCOSE 101 mg/dl (70-99); POTASSIUM 3.1 mmol/L (3.5-5.1); SODIUM 137 mmol/L (136-145); TOTAL PROTEIN 6.4 gm/dl (6.4-8.2)
== END | disposition home or self-care (01) ==
LOC: C.LAB1850 11:26
PROVIDERS: ATTEND Physician Assistant
DX: R53.81 Other malaise (principal)

== ENCOUNTER → 2018-02-02 | Outpatient (CLI) | payer OTHER, BC | END | disposition home or self-care (01) | LOC: C.LAB1850 11:23 | PROVIDERS: ATTEND Physician Assistant | DX: E03.9 Hypothyroidism, unspecified (principal); E55.9 Vitamin D deficiency, unspecified ==

== ENCOUNTER → 2018-05-26 | Outpatient (CLI) | payer OTHER, BC ==
--- NOTE | 2018-05-26 16:38 | DIAGNOSTIC IMAGING REPORT ---
CHEST 2 VIEWS ROUTINE CLINICAL HISTORY: J44.9 Chronic obstructive pulmonary disease COMPARISON STUDY: 11/15/2017 FINDINGS: There are postsurgical changes of midline sternotomy and valvular replacement. The heart is mildly enlarged. There is bony emphysema. There is no lobar consolidation. There is basilar atelectasis/scarring. There are small bilateral pleural effusions. Left perihilar interstitial opacities appear to be chronic.[ IMPRESSION: 1. Hyperexpansion and chronic areas of interstitial scarring/atelectasis 2. No evidence of acute lobar consolidation 3. Small bilateral pleural effusions Electronically signed by: Adonay Winston M.D. 05/26/2018 4:36 PM Dictated Date/Time: 05/26/2018 4:34 PM
== END | disposition home or self-care (01) ==
LOC: C.RAD 16:19
PROVIDERS: ATTEND Internal Medicine Pulmonary Disease
DX: J44.9 Chronic obstructive pulmonary disease, unspecified (principal); R91.8 Other nonspecific abnormal finding of lung field; J90 Pleural effusion, not elsewhere classified

== ENCOUNTER 2019-04-26 15:07 | Inpatient (IN) ==
[2019-04-26] MEDS ORDERED: SODIUM CHLORIDE 0.9% 500 ML IV SCH (15:45)
--- NOTE | 2019-04-26 15:59 | XRay Report ---
XR chest 1V portable CLINICAL HISTORY: near syncope dyspnea COMPARISON STUDY: 04/12/2019 FINDINGS: Moderate stable cardiomegaly. Median sternotomy. Potential superimposed infiltrate and pleural reactive changes left base. Right chris ng is clear. IMPRESSION: 1. Parenchymal infiltrate/atelectasis left base. 2. Mild stable cardiomegaly. The above report was generated using voice recognition software. It may contain grammatical, syntax or spelling errors. Electronically signed by: Kojo Tomlinson M.D. 04/26/2019 3:58 PM
[2019-04-26 16:27] LABS: Hematocrit (blood only) 32.2 % (42-52); Hemoglobin 10.5 g/dL (14.0-18.0); Red Blood Count 3.32 M/uL (4.7-6.1); White Blood Count 12.87 K/uL (4.8-10.8)
[2019-04-26 16:28] LABS: Basophils # (auto) 0.03 K/uL (0-0.2); Basophils % (auto) 0.2 %; Eosinophils # (auto) 0.11 K/uL (0-0.5); Eosinophils % (auto) 0.9 %; Immature Granulocytes # (auto) 0.06 K/uL (0.00-0.02); Immature Granulocytes % (auto) 0.5 %; Lymphocytes # (auto) 0.98 K/uL (1.2-3.4); Lymphocytes % (auto) 7.6 %; Mean Corpuscular Hgb Conc 32.6 g/dL (32-36); Mean Platelet Volume 8.8 fL (7.4-10.4); Monocytes # (auto) 1.49 K/uL (0.11-0.59); Monocytes % (auto) 11.6 %; Neutrophils % (auto) 79.2 %; Platelet Count 145 K/uL (130-400); RDW Coefficient of Variation 19.1 % (11.5-14.5); RDW Standard Deviation 67.6 fL (36.4-46.3)
[2019-04-26 17:44] LABS: INR 1.1 (0.9-1.1); Partial Thromboplastin Ratio 0.9; Partial Thromboplastin Time 24.1 Seconds (21.0-31.0); Prothrombin Time 10.8 Seconds (9.0-12.0)
[2019-04-26 18:01] LABS: Albumin Globulin Ratio 0.9 (0.9-2); Albumin Level 3.2 gm/dl (3.4-5.0); BUN Creatinine Ratio 4.2 (10-20); Bilirubin,Total 0.6 mg/dl (0.2-1); Creatinine Clr Calc Pharmacy 12.6 ml/min; Est GFR (African American) 8.2; Est GFR (Non-African American) 7.1; Globulin 3.5 gm/dl (2.5-4.0); Magnesium 2.1 mg/dl (1.8-2.4); Potassium 5.8 mmol/L (3.5-5.1); Total Protein 6.7 gm/dl (6.4-8.2); Troponin I 0.028 ng/ml (0-0.045)
[2019-04-26] MEDS ORDERED: ONDANSETRON INJ 2 MG/ML 2 ML VIAL IV STA (18:18)
[2019-04-26] MEDS ORDERED: NovoLIN-R INSULIN PER UNIT CHARGE IV STA (18:31)
[2019-04-26] MEDS ORDERED: CALCIUM GLUCONATE 10% 1,000 MG in SODIUM CHLORIDE 0.9% 50 ML IV STA (18:31)
[2019-04-26] MEDS ORDERED: SODIUM BICARB 8.4% INJ 50 MEQ/50 ML SYR IV STA (18:31)
[2019-04-26] MEDS ORDERED: METOCLOPRAMIDE HCL INJ 5 MG/ML 2 ML VIAL IV ONE (18:36)
[2019-04-26] MEDS ORDERED: DEXTROSE 50% 50 ML SYRINGE IV STA (18:43)
--- NOTE | 2019-04-26 19:28 | History & Physical Report ---
Date of Service April 26, 2019 Assessment & Plan (1) ESRD (end stage renal disease): Patient has hyperkalemia likely associate with his end-stage renal disease. He was given calcium in the ER and also insulin. He can take fluid orally and have his dialysis session for tomorrow. Fluid restriction and continue his PhosLo Dr. Alcantar has been consulted (2) Atrial fibrillation: Patient remains rate controlled on his amiodarone and carvedilol he is not chronically anticoagulated best I can tell but he will continue his aspirin (3) Hx of CABG: Patient has significant orthostasis associated with his disease processes he is on various days of midodrine higher on his dialysis days and largest on dialysis days subsequently remain under treatment for his coronary disease his atorvastatin (4) GERD (gastroesophageal reflux disease): Patient is omeprazole and Pepcid (5) Constipation: Patient typically takes senna and MiraLAX will give him a suppository and may escalate to a fleets enema (6) Hypothyroidism: TSH is stable patient continues on Synthroid medication (7) DVT prophylaxis: Heparin subcu History of Present Illness Primary Care Provider: Emil Lazcano MD Patient is transferred from surgical center after having up with heel angioplasties by Dr. Tan due to vascular supply to his lower extremity disease had previous issues with nonhealing ulcerations and had a ultrasound suggestive of arterial compromise. Subsequent to the procedure the patient became orthostatic and had intractable nausea vomiting. He was transferred to the ER was found to be hyperkalemic. Next This patient has issues with orthostasis having to take midodrine on his dialysis days and at higher doses (20) and on nondialysis days he takes 5 mg. Patient is only extreme fluid restriction of thousand cc a day and he states that on April 23 his Thursday dialysis session he took extra fluid off of him because he was over his typical target weight. Currently he is nauseated has a headache he also relates me he is not on the bathroom for 2 weeks Allergies Allergy/AdvReac Type Severity Reaction Status Date / Time tramadol Allergy Unknown dizziness;a Verified 04/26/19 05:59 nxiety;sob gabapentin Allergy Unknown Verified 04/26/19 11:26 oxycodone AdvReac Severe DELIRIUM Verified 04/26/19 05:59 Home Medications Home Medications Medication Instructions Recorded Confirmed Type Breo Ellipta 1 inh INHALATION DAILY 08/23/18 04/26/19 History albuterol sulfate 2 puff INHALATION Q6H PRN 08/23/18 04/26/19 History amiodarone 200 mg PO Q OTHER DAY 08/23/18 04/26/19 History aspirin [Aspir-Low] 81 mg PO QAM 08/23/18 04/26/19 History atorvastatin 40 mg PO HS 08/23/18 04/26/19 History calcium acetate 667 mg PO TIDM 08/23/18 04/26/19 History cyanocobalamin (vitamin B-12) 1,000 mcg PO 3XWK 08/23/18 04/26/19 History paroxetine HCl 20 mg PO QAM 08/23/18 04/26/19 History Spiriva with HandiHaler 1 cap INHALATION DAILY 08/30/18 04/26/19 History azithromycin 500 mg PO DIRECTED PRN 08/30/18 04/26/19 History omeprazole 20 mg PO DAILY 08/30/18 04/26/19 History lidocaine 4 % topical patch 1 patch TOP TID PRN 02/10/19 04/26/19 History pregabalin 75 mg capsule 75 mg PO DAILY cap 02/10/19 04/26/19 History polyethylene glycol 3350 17 8.5 gm PO DAILY PRN #119 gm 03/30/19 04/26/19 Rx gram/dose oral powder carvedilol 6.25 mg tablet 6.25 mg PO UD tab 03/31/19 04/26/19 History cefadroxil 500 mg capsule 500 mg PO DAILY cap 03/31/19 04/26/19 History famotidine 20 mg tablet 20 mg PO 3XWK tab 03/31/19 04/26/19 History ipratropium-albuterol 0.5 mg-3 3 ml INHALATION Q6H PRN ml 03/31/19 04/26/19 History mg(2.5 mg base)/3 mL nebulization soln levothyroxine 75 mcg capsule 75 mcg PO HS cap 03/31/19 04/26/19 History midodrine 5 mg tablet 5 mg PO TID tab 03/31/19 04/26/19 History saliva substitute combo no.9 10 ml PO DAILY PRN ml 03/31/19 04/26/19 History mouthwash triamcinolone acetonide 0.1 % 1 appln TOP BID #453.6 gm 03/31/19 04/26/19 Rx topical cream clopidogrel [Plavix] 75 mg PO DAILY #30 tab 04/26/19 04/26/19 Rx midodrine 5 mg PO .QID UD 04/26/19 04/26/19 History Past Med/Surg History Medical History Gangrene (Resolved) Atrial fibrillation (Resolved) AAA (abdominal aortic aneurysm) (Resolved) Anxiety (Chronic) Chronic GERD (Chronic) Myocardial infarct, old (Chronic) 2010 CVA (cerebral vascular accident) (Chronic) "NO RESIDUAL EFFECTS" PER RECORDS GERD (gastroesophageal reflux disease) (Chronic) Peripheral vascular disease (Chronic) H/O: gout (Chronic) Anxiety (Chronic) Depression (Chronic) Atrial fibrillation (Chronic) PAROXYSMAL- ON ASA PER RECORDS Gangrene of toe (Acute) right toes REASON FOR PROCEDURE CAD (coronary artery disease) (Chronic) S/P CABG X2 (DURING MVR) 2010 Valvular disease (Chronic) S/P MVR (2010); ?AVR PER RECORDS Acute osteomyelitis of foot (Acute) AV fistula (Chronic) right arm ESRD (end stage renal disease) Encounter for central line placement (Acute) Surgical History Hx of CABG (Acute) S/P CABG X2 (DURING MVR) 2010 S/P cholecystectomy (Resolved) H/O abdominal aortic aneurysm repair (Resolved) 2011 H/O mitral valve repair (Resolved) 2010; ?AVR PER RECORDS H/O [id number] bypass (Resolved) 2012 Difficult intubation (Chronic) B/L Anteriogram, Right femoral to anterior tibial cadaver vein bypass= 08/06/18= Grade view 4, MAC 3 --> Glidescope #3, ETT 7.5 at [facility] Social History Preferred Language: Luxembour[place] Communication Ability: Effective Visual Impairment: No Limitations Beliefs That Will Affect Care: None marital status: / marital status details: 1 daughter Current Living Situation: Family Current Living Situation Comment: lives with his sister 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 Feels Safe at Home: Yes Smoking Status: Former smoker Tobacco Type: cigars Second Hand Exposure: No Hx Alcohol Use: No Hx Substance Use: No Review of Systems Review of Systems: ROS: Patient actually looks much less ill than he reads to be on paper he is complaining of headache and nausea No double vision blurry vision complains of headache No problems with speech or swallowing No palpitations, chest pain or pressure No Wheezing or breathing issues No abdominal pain has persistent nausea planes of constipation and some loose bowel movements likely overflow bowel movements No burning urine he still is very small amounts of urine No focal joint pain or muscle pain No skin rashes or oral lesions No unusual bruising or bleeding No focused back pain or numbness or loss of strength No changes in memory or confusion Physical Exam Physical Exam: The patient appeared well nourished and normally developed. He is in mild distress Vital signs as documented. Head exam is unremarkable. normocephalic, atraumatic no focal deficits no facial drooping Neck is without jugular venous distension, thyromegaly, or lymphademopathy Lungs are clear to auscultation and percussion. Diminished at the bases Cardiac exam reveals irregularly irregular with controlled rate Abdominal exam reveals normal bowel sounds, fullness exam consistent with his constipation no masses, no organomegaly Extremities are with chronic venous stasis changes to his lower extremities poor capillary refill poor pulses Neurologic exam is A&Ox3, peripheral neuropathy strength is equal bilateral but diminished Psychologically seems neither anxious or depressed Skin is warm Dry with changes of chronic venous stasis to his lower extremities Results & Data Vital Signs (Past 12 Hours) Vital Signs Temp Pulse Pulse Resp BP BP Pulse Ox 04/26/19 17:51 75 24 135/70 100 04/26/19 17:30 78 24 99 04/26/19 17:20 83 23 100 04/26/19 17:10 84 24 100 04/26/19 17:01 81 17 144/80 H 100 04/26/19 17:00 83 21 100 04/26/19 16:50 74 19 100 04/26/19 16:40 76 16 100 04/26/19 16:31 77 19 115/69 04/26/19 16:30 88 18 100 04/26/19 16:20 80 24 100 04/26/19 16:10 75 22 04/26/19 16:00 80 18 86 L 04/26/19 15:50 76 19 95 04/26/19 15:47 78 21 110/71 97 07/02/19 15:40 77 25 H 98 04/26/19 15:30 78 19 96 04/26/19 15:20 75 24 95 04/26/19 15:18 76 17 96 04/26/19 15:14 36.7 C 76 24 107/64 100 04/26/19 15:13 72 22 107/64 97 PG Care Time/CCT Total # of Minutes Spent Total Time Spent with Patient: Total time spent is greater than 50% in coordination of care (as documented) at patient's floor/unit and/or counseling patient: (1) Atrial fibrillation Atrial fibrillation type: paroxysmal Qualified Code(s): I48.0 - Paroxysmal atrial fibrillation
--- NOTE | 2019-04-26 20:16 | Emergency Department Note ---
Entered by Ashley Barreto acting as a scribe for History of Present Illness General Chief complaint: Hypotension Source: patient History of Present Illness Onset (ago): minute(s) (prior to arrival) Location: head Pain Consistency: + other (episode) Maximum Pain Intensity: 4 Quality: + other (hypotension) Exacerbated By: + movement Associated symptoms: + denies other symptoms (numbness, tingling), + headaches, + weakness and + other (dizzy, lightheaded, left sided groin pain); no chest pain, no nausea/vomiting and no shortness of breath The patient is a 73 year old male who presents to the ED with complaints of an episode of hypotension occurring prior to arrival. The patient states that he was at same day surgery as Dr. Tan was doing an angiogram. He states that he ended up doing an intervention, but is unsure if he placed a stent. He states that everything went well and he was getting ready to leave when he stood up and felt weak. He reports that he almost collapsed getting into the wheelchair. He states that he felt dizzy and lightheaded. He states that they were concerned and sent him over here. The patient complains of a headache and left sided groin pain. He notes that the groin pain is worse with movement. The patient states that he has been orthostatic for the past 2 years. He states that because of it, he follows with cardiology. He states that he is on 5 mg of Midodrine on non- dialysis days and 20 mg of it on dialysis days. He notes that when he gets orthostatic, he has the same symptoms as what he had today. The patient denies numbness or tingling down his leg, chest pain, shortness of breath, nausea, and vomiting. Home Medications Home Medications Medication Instructions Recorded Confirmed Type Breo Ellipta 1 inh INHALATION DAILY 08/23/18 04/26/19 History albuterol sulfate 2 puff INHALATION Q6H PRN 08/23/18 04/26/19 History amiodarone 200 mg PO Q OTHER DAY 08/23/18 04/26/19 History aspirin [Aspir-Low] 81 mg PO QAM 08/23/18 04/26/19 History atorvastatin 40 mg PO HS 08/23/18 04/26/19 History calcium acetate 667 mg PO TIDM 08/23/18 04/26/19 History cyanocobalamin (vitamin B-12) 1,000 mcg PO 3XWK 08/23/18 04/26/19 History paroxetine HCl 20 mg PO QAM 08/23/18 04/26/19 History Spiriva with HandiHaler 1 cap INHALATION DAILY 08/30/18 04/26/19 History azithromycin 500 mg PO DIRECTED PRN 08/30/18 04/26/19 History omeprazole 20 mg PO DAILY 08/30/18 04/26/19 History lidocaine 4 % topical patch 1 patch TOP TID PRN 02/10/19 04/26/19 History pregabalin 75 mg capsule 75 mg PO DAILY cap 02/10/19 04/26/19 History polyethylene glycol 3350 17 8.5 gm PO DAILY PRN #119 gm 03/30/19 04/26/19 Rx gram/dose oral powder carvedilol 6.25 mg tablet 6.25 mg PO UD tab 03/31/19 04/26/19 History cefadroxil 500 mg capsule 500 mg PO DAILY cap 03/31/19 04/26/19 History famotidine 20 mg tablet 20 mg PO 3XWK tab 03/31/19 04/26/19 History ipratropium-albuterol 0.5 mg-3 3 ml INHALATION Q6H PRN ml 03/31/19 04/26/19 History mg(2.5 mg base)/3 mL nebulization soln levothyroxine 75 mcg capsule 75 mcg PO HS cap 03/31/19 04/26/19 History midodrine 5 mg tablet 5 mg PO TID tab 03/31/19 04/26/19 History saliva substitute combo no.9 10 ml PO DAILY PRN ml 03/31/19 04/26/19 History mouthwash triamcinolone acetonide 0.1 % 1 appln TOP BID #453.6 gm 03/31/19 04/26/19 Rx topical cream clopidogrel [Plavix] 75 mg PO DAILY #30 tab 04/26/19 04/26/19 Rx midodrine 5 mg PO .QID UD 04/26/19 04/26/19 History Allergies Allergy/AdvReac Type Severity Reaction Status Date / Time tramadol Allergy Unknown dizziness;a Verified 04/26/19 05:59 nxiety;sob gabapentin Allergy Unknown Verified 04/26/19 11:26 oxycodone AdvReac Severe DELIRIUM Verified 04/26/19 05:59 Past Med/Surg History Medical History Gangrene (Resolved) Atrial fibrillation (Resolved) AAA (abdominal aortic aneurysm) (Resolved) Anxiety (Chronic) Chronic GERD (Chronic) Myocardial infarct, old (Chronic) 2010 CVA (cerebral vascular accident) (Chronic) "NO RESIDUAL EFFECTS" PER RECORDS GERD (gastroesophageal reflux disease) (Chronic) Peripheral vascular disease (Chronic) H/O: gout (Chronic) Anxiety (Chronic) Depression (Chronic) Atrial fibrillation (Chronic) PAROXYSMAL- ON ASA PER RECORDS Gangrene of toe (Acute) right toes REASON FOR PROCEDURE CAD (coronary artery disease) (Chronic) S/P CABG X2 (DURING MVR) 2010 Valvular disease (Chronic) S/P MVR (2010); ?AVR PER RECORDS Acute osteomyelitis of foot (Acute) AV fistula (Chronic) right arm ESRD (end stage renal disease) Encounter for central line placement (Acute) Surgical History Hx of CABG (Acute) S/P CABG X2 (DURING MVR) 2010 S/P cholecystectomy (Resolved) H/O abdominal aortic aneurysm repair (Resolved) 2012 H/O mitral valve repair (Resolved) 2010; ?AVR PER RECORDS H/O [id number] bypass (Resolved) 2012 Difficult intubation (Chronic) B/L Anteriogram, Right femoral to anterior tibial cadaver vein bypass= 08/06/18= Grade view 4, MAC 3 --> Glidescope #3, ETT 7.5 at [facility] Family History Mother Essential hypertension Father , age 76 Myocardial infarction Social History Preferred Language: Kiswahili Communication Ability: Effective Visual Impairment: No Limitations Beliefs That Will Affect Care: None marital status: / marital status details: 1 daughter Current Living Situation: Family Current Living Situation Comment: lives with his sister 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 and A total of 10 systems reviewed and were otherwise negative Physical Exam Vital Signs Vital Signs - 24 hr 04/26/19 15:13 04/26/19 15:14 04/26/19 15:18 Temperature 36.7 C Temperature Source Oral Sepsis Recent Fever Within 48 Hours No Sepsis New/Unexplained Change in Mental Status No Sepsis Action Taken by Nursing No Action Required Pulse Rate 72 76 76 Pulse Rate [Finger] Pulse Rate from SpO2 Sensor 74 77 Respiratory Rate 22 24 17 Blood Pressure 107/64 107/64 Blood Pressure [Right Arm] Blood Pressure Mean 78 78 Blood Pressure Mean [Right Arm] Blood Pressure Position Lying Pulse Oximetry 97 100 96 Oxygen Delivery Method Room Air Room Air Room Air 04/26/19 15:20 04/26/19 15:30 04/26/19 15:40 Temperature Temperature Source Sepsis Recent Fever Within 48 Hours Sepsis New/Unexplained Change in Mental Status Sepsis Action Taken by Nursing Pulse Rate 75 78 77 Pulse Rate [Finger] Pulse Rate from SpO2 Sensor 77 79 78 Respiratory Rate 24 19 25 H Blood Pressure Blood Pressure [Right Arm] Blood Pressure Mean Blood Pressure Mean [Right Arm] Blood Pressure Position Pulse Oximetry 95 96 98 Oxygen Delivery Method Room Air Room Air Room Air 04/26/19 15:47 04/26/19 15:50 04/26/19 16:00 Temperature Temperature Source Sepsis Recent Fever Within 48 Hours Sepsis New/Unexplained Change in Mental Status Sepsis Action Taken by Nursing Pulse Rate 78 76 80 Pulse Rate [Finger] Pulse Rate from SpO2 Sensor 79 77 80 Respiratory Rate 21 19 18 Blood Pressure 110/71 Blood Pressure [Right Arm] Blood Pressure Mean 84 Blood Pressure Mean [Right Arm] Blood Pressure Position Pulse Oximetry 97 95 86 L Oxygen Delivery Method Room Air Room Air Room Air 04/26/19 16:10 04/26/19 16:20 04/26/19 16:30 Temperature Temperature Source Sepsis Recent Fever Within 48 Hours Sepsis New/Unexplained Change in Mental Status Sepsis Action Taken by Nursing Pulse Rate 75 80 88 Pulse Rate [Finger] Pulse Rate from SpO2 Sensor 78 78 Respiratory Rate 22 24 18 Blood Pressure Blood Pressure [Right Arm] Blood Pressure Mean Blood Pressure Mean [Right Arm] Blood Pressure Position Pulse Oximetry 100 100 Oxygen Delivery Method Room Air Room Air Room Air 04/26/19 16:31 04/26/19 16:40 04/26/19 16:50 Temperature Temperature Source Sepsis Recent Fever Within 48 Hours Sepsis New/Unexplained Change in Mental Status Sepsis Action Taken by Nursing Pulse Rate 77 76 74 Pulse Rate [Finger] Pulse Rate from SpO2 Sensor 79 73 77 Respiratory Rate 19 16 19 Blood Pressure 115/69 Blood Pressure [Right Arm] Blood Pressure Mean 84 Blood Pressure Mean [Right Arm] Blood Pressure Position Pulse Oximetry 100 100 Oxygen Delivery Method Room Air Room Air Room Air 04/26/19 17:00 04/26/19 17:01 04/26/19 17:10 Temperature Temperature Source Sepsis Recent Fever Within 48 Hours Sepsis New/Unexplained Change in Mental Status Sepsis Action Taken by Nursing Pulse Rate 83 81 84 Pulse Rate [Finger] Pulse Rate from SpO2 Sensor 78 80 80 Respiratory Rate 21 17 24 Blood Pressure 144/80 H Blood Pressure [Right Arm] Blood Pressure Mean 101 Blood Pressure Mean [Right Arm] Blood Pressure Position Pulse Oximetry 100 100 100 Oxygen Delivery Method Room Air Room Air Room Air 04/26/19 17:20 04/26/19 17:30 04/26/19 17:31 Temperature Temperature Source Sepsis Recent Fever Within 48 Hours Sepsis New/Unexplained Change in Mental Status Sepsis Action Taken by Nursing Pulse Rate 83 78 84 Pulse Rate [Finger] Pulse Rate from SpO2 Sensor 82 78 83 Respiratory Rate 23 24 22 Blood Pressure 135/70 Blood Pressure [Right Arm] Blood Pressure Mean 91 Blood Pressure Mean [Right Arm] Blood Pressure Position Pulse Oximetry 100 99 100 Oxygen Delivery Method Room Air Room Air 04/26/19 17:40 04/26/19 17:50 04/26/19 17:51 Temperature Temperature Source Sepsis Recent Fever Within 48 Hours Sepsis New/Unexplained Change in Mental Status Sepsis Action Taken by Nursing Pulse Rate 75 83 Pulse Rate [Finger] 75 Pulse Rate from SpO2 Sensor 79 77 Respiratory Rate 20 16 24 Blood Pressure Blood Pressure [Right Arm] 135/70 Blood Pressure Mean Blood Pressure Mean [Right Arm] 91 Blood Pressure Position Pulse Oximetry 100 100 100 Oxygen Delivery Method Room Air 04/26/19 18:00 04/26/19 18:01 04/26/19 18:10 Temperature Temperature Source Sepsis Recent Fever Within 48 Hours Sepsis New/Unexplained Change in Mental Status Sepsis Action Taken by Nursing Pulse Rate 78 91 H 84 Pulse Rate [Finger] Pulse Rate from SpO2 Sensor 81 87 80 Respiratory Rate 20 23 19 Blood Pressure 101/56 L Blood Pressure [Right Arm] Blood Pressure Mean 71 Blood Pressure Mean [Right Arm] Blood Pressure Position Pulse Oximetry 100 100 Oxygen Delivery Method 04/26/19 18:20 04/26/19 18:30 04/26/19 18:31 Temperature Temperature Source Sepsis Recent Fever Within 48 Hours Sepsis New/Unexplained Change in Mental Status Sepsis Action Taken by Nursing Pulse Rate 80 76 78 Pulse Rate [Finger] Pulse Rate from SpO2 Sensor 80 79 81 Respiratory Rate 22 30 H 18 Blood Pressure 100/56 L Blood Pressure [Right Arm] Blood Pressure Mean 70 Blood Pressure Mean [Right Arm] Blood Pressure Position Pulse Oximetry 100 100 100 Oxygen Delivery Method 04/26/19 18:40 04/26/19 18:50 Temperature Temperature Source Sepsis Recent Fever Within 48 Hours Sepsis New/Unexplained Change in Mental Status Sepsis Action Taken by Nursing Pulse Rate 79 83 Pulse Rate [Finger] Pulse Rate from SpO2 Sensor 87 81 Respiratory Rate 14 19 Blood Pressure Blood Pressure [Right Arm] Blood Pressure Mean Blood Pressure Mean [Right Arm] Blood Pressure Position Pulse Oximetry 100 100 Oxygen Delivery Method GENERAL: sitting up in bed, alert, chronically ill appearing, well nourished, no distress, non-toxic EYE EXAM: normal conjunctiva, PERRL and EOM's grossly intact OROPHARYNX: no exudate, no erythema, lips, buccal mucosa, and tongue normal and mucous membranes are moist NECK: supple, no nuchal rigidity, no adenopathy, non-tender LUNGS: Clear to auscultation. Normal chest wall mechanics HEART: no murmurs, S1 normal and S2 normal ABDOMEN: abdomen soft, non-tender, normo-active bowel sounds, no masses, no rebound or guarding. BACK: Back is symmetrical on inspection and there is no deformity, no midline tenderness, no CVA tenderness. SKIN: no rashes and no bruising UPPER EXTREMITIES: upper extremities are grossly normal. Fistula in right upper extremity. LOWER EXTREMITIES: No pitting edema. Sandbags over left groin. Small amount of bruising and firmness over the femoral vasculature. NEURO EXAM: Normal sensorium, cranial nerves II-XII intact, normal speech, no weakness of arms, no weakness of legs. Course ED COURSE: Vital signs were reviewed and showed hypotension. The patients medical record was reviewed The above diagnostic studies were performed and reviewed. ED treatments and interventions as stated above. 1534: The patient was evaluated in room A3. A complete history and physical examination was performed. 1544: I discussed the patient's case with Dr. Tan-Vascular Surgeon. He states to leave the pressure dressing on until tomorrow, but the sandbag can come off. He notes that they ballooned distal popliteal. 1716: I reevaluated the patient and he is now nauseous. 1814: I reevaluated the patient and he is now vomiting. 1827: I discussed the patient's case with Dr. Nelson Nephrology. He recommends brining the patient in. 183: Upon reevaluation, the patient is resting comfortably. I discussed my findings with the patient and he understands and agrees with the treatment plan. Based on the patients age, coexisting illnesses, exam and lab findings the decision to treat as an inpatient was made. The patient remained stable while under my care. The patient will be evaluated for further management. 183: I discussed the patient's case with Dr. Dev SOLIS Hospitalist. He will evaluate the patient for further management. Consultations Consultation #1: I discussed the patient's case with Dr. Tan-Vascular Surgeon. He states to leave the pressure dressing on until tomorrow, but the sandbag can come off. He notes that they ballooned distal popliteal. Time: 15:44 Consultation #2: I discussed the patient's case with Dr. Omar Jaquez. He recommends brining the patient in. Time: 18:27 Consultation #3: I discussed the patient's case with Dr. Dev SOLIS spitalist. He will evaluate the patient for further management. Time: 18:38 Administered Medications Discontinued Medications Dextrose (Dextrose 50%) 50 ml IV NOW STA Stop: 04/26/19 18:44 Last Admin: 04/26/19 19:25 Dose: 50 ml Documented by: [id number] Sodium Chloride (Nss) 500 mls @ 999 mls/hr IV .Q31M [place] Stop: 04/26/19 16:15 Last Infusion: 04/26/19 16:22 Dose: 0 mls/hr Documented by: [id number] Admin: 04/26/19 15:48 Dose: 999 mls/hr Documented by: [id number] Calcium Gluconate 1,000 mg/ (Sodium Chloride) 60 mls @ 240 mls/hr IV NOW STA Stop: 04/26/19 18:45 Last Infusion: 04/26/19 19:44 Dose: 0 mls/hr Documented by: [id number] Admin: 04/26/19 19:27 Dose: 240 mls/hr Documented by: [id number] Insulin Human Regular (Novolin R U-100 Per Unit) 8 units IV NOW STA Stop: 04/26/19 18:32 Last Admin: 04/26/19 19:26 Dose: 8 units Documented by: [id number] Cosigned by: [id number] Metoclopramide HCl (Reglan) 5 mg IV ONE ONE Stop: 04/26/19 18:37 Last Admin: 04/26/19 19:24 Dose: 5 mg Documented by: [id number] Ondansetron HCl (Zofran) 4 mg IV NOW STA Stop: 04/26/19 18:19 Last Admin: 04/26/19 18:27 Dose: 4 mg Documented by: [id number] Sodium Bicarbonate (Sodium Bicarbonate 8.4%) 150 meq IV NOW STA Stop: 04/26/19 18:32 Last Admin: 04/26/19 19:31 Dose: 150 meq Documented by: [id number] Medical Decision Making Differential Diagnosis Differential Diagnosis includes but is not limited to dehydration, stroke, anemia, hypoglycemia, hyponatremia, hypernatremia, urinary tract infection, pneumonia, bronchitis, sepsis, gastroenteritis, additional abdominal pathology, metabolic abnormalities and infections. Medical Records Attestation: I reviewed the patient's medical records. Home Medications Current Medication List: was personally reviewed by me Laboratory Data Attestation: I reviewed the patient's lab results. Result diagrams: 04/26/19 16:18 04/26/19 17:22 Lab Results 04/26/19 04/26/19 04/26/19 Range/Units 16:18 16:18 16:18 WBC 12.87 H (4.8-10.8) K/uL RBC 3.32 L (4.7-6.1) M/uL Hgb 10.5 L (14.0-18.0) g/dL Hct 32.2 L (42-52) % MCV 97.0 (80-100) fL MCH 31.6 (25-34) pg MCHC 32.6 (32-36) g/dL RDW Std Deviation 67.6 H (36.4-46.3) fL RDW Coeff of Jolanta 19.1 H (11.5-14.5) % Plt Count 145 (130-400) K/uL MPV 8.8 (7.4-10.4) fL Immature Gran % (Auto) 0.5 % Neut % (Auto) 79.2 % Lymph % (Auto) 7.6 % [place] % (Auto) 11.6 % Eos % (Auto) 0.9 % Baso % (Auto) 0.2 % Immature Gran # (Auto) 0.06 H (0.00-0.02) K/uL Neut # (Auto) 10.20 H (1.4-6.5) K/uL Lymph # (Auto) 0.98 L (1.2-3.4) K/uL [place] # (Auto) 1.49 H (0.11-0.59) K/uL Eos # (Auto) 0.11 (0-0.5) K/uL Baso # (Auto) 0.03 (0-0.2) K/uL PT (9.0-12.0) Seconds INR (0.9-1.1) APTT Cancelled PTT Ratio Cancelled Sodium Cancelled Potassium Cancelled Chloride Cancelled Carbon Dioxide Cancelled Anion Gap Cancelled BUN Cancelled Creatinine Cancelled Est Cr Clr Drug Dosing Cancelled Est GFR ( Amer) Cancelled Est GFR (Non-Af Amer) Cancelled BUN/Creatinine Ratio Cancelled Glucose Cancelled Calcium Cancelled Magnesium Cancelled Total Bilirubin Cancelled AST Cancelled ALT Cancelled Alkaline Phosphatase Cancelled Troponin I Cancelled Total Protein Cancelled Albumin Cancelled Globulin Cancelled Albumin/Globulin Ratio Cancelled 04/26/19 04/26/19 Range/Units 17:22 17:22 WBC (4.8-10.8) K/uL RBC (4.7-6.1) M/uL Hgb (14.0-18.0) g/dL Hct (42-52) % MCV (80-100) fL MCH (25-34) pg MCHC (32-36) g/dL RDW Std Deviation (36.4-46.3) fL RDW Coeff of Jolanta (11.5-14.5) % Plt Count (130-400) K/uL MPV (7.4-10.4) fL Immature Gran % (Auto) % Neut % (Auto) % Lymph % (Auto) % [place] % (Auto) % Eos % (Auto) % Baso % (Auto) % Immature Gran # (Auto) (0.00-0.02) K/uL Neut # (Auto) (1.4-6.5) K/uL Lymph # (Auto) (1.2-3.4) K/uL [place] # (Auto) (0.11-0.59) K/uL Eos # (Auto) (0-0.5) K/uL Baso # (Auto) (0-0.2) K/uL PT 10.8 (9.0-12.0) Seconds INR 1.1 (0.9-1.1) APTT 24.1 PTT Ratio 0.9 Sodium 132 L Potassium 5.8 H D Chloride 94 L Carbon Dioxide 26 Anion Gap 12.0 H BUN 30 H Creatinine 6.97 H* D Est Cr Clr Drug Dosing 12.6 Est GFR ( Amer) 8.2 Est GFR (Non-Af Amer) 7.1 BUN/Creatinine Ratio 4.2 L Glucose 93 Calcium 9.0 Magnesium 2.1 Total Bilirubin 0.6 AST 18 ALT 19 Alkaline Phosphatase 142 H Troponin I 0.028 Total Protein 6.7 Albumin 3.2 L Globulin 3.5 Albumin/Globulin Ratio 0.9 Imaging Data Radiologist's Impression: Radiology results as stated below per my review and the radiologist's interpretation: XR chest 1V portable CLINICAL HISTORY: near syncope dyspnea COMPARISON STUDY: 04/12/2019 FINDINGS: Moderate stable cardiomegaly. Median sternotomy. Potential superimposed infiltrate and pleural reactive changes left base. Right lung is clear. IMPRESSION: 1. Parenchymal infiltrate/atelectasis left base. 2. Mild stable cardiomegaly. The above report was generated using voice recognition software. It may contain grammatical, syntax or spelling errors. Electronically signed by: Kojo Tomlinson M.D. 04/26/2019 3:58 PM ECG Data Attestation: I personally reviewed and interpreted this ECG as follows: Indication: weakness Rate (beats per minute): 74 Rhythm: sinus rhythm Findings: + other (normal axis, poor baseline) Comparison ECG Date: from (09/26/2018) Change: no significant change Blood Pressure Blood Pressure Findings: Low blood pressure Blood Pressure Disposition: further management by hospitalist JACK Narrative Patient is a 73-year-old male who presents the ER from same-day surgery following angiogram of his bilateral lower extremities and balloon dilation of the left lower extremity. Upon presentation he has a hematoma in the left groin. Does feel nauseated and has a headache. Patient was given a small dose of IV fluids and Zofran. Nauseated resolved until they went to get him up from bed which case his headache had a little worse and he started vomiting. Since then he was given Zofran and Reglan. His potassium increased from 4.1-5.8. Discussed with nephrology. Patient was given IV calcium, insulin, glucose per nephrology's request. EKG was nondiagnostic. Patient family were updated bedside. He will be observed overnight. Impression & Plan Orthostatic hypotension, Nausea & vomiting, Hyperkalemia Discharge Plan Visit Data Chief Complaint: Hypotension ED Provider: Jake Arevalo Discharge Problem: Orthostatic hypotension, Nausea & vomiting, Hyperkalemia Patient Disposition: Being Evaluated by Hospitalist Discharge Instructions Interventions: ED Discharge Assessment Last Done: 04/26/19 19:59 Discharge Problem: Nausea & vomiting Qualifiers: Vomiting type: unspecified Vomiting Intractability: unspecified Qualified Code(s): R11.2 - Nausea with vomiting, unspecified The scribe's documentation has been prepared under my direction and personally reviewed by me in its entirety. I confirm that the note above accurately reflects all work, treatment, procedures, and medical decision making performed by me.
[2019-04-26] MEDS ORDERED: ACETAMINOPHEN 65 ML IV PRN (20:17)
[2019-04-26] MEDS ORDERED: ALBUT/IPRATROP 3MG/0.5MG NEB 3 ML VIAL INH PRN (20:17)
[2019-04-26] MEDS ORDERED: ALBUTEROL HFA 8 GM INHALER INH PRN (20:17)
[2019-04-26] MEDS ORDERED: NON-FORMULARY MEDICATION (Lidocaine 1 PATCH) TOP PRN (20:17)
[2019-04-26] MEDS ORDERED: BISACODYL 10 MG SUPP PR STA (20:17)
[2019-04-26] MEDS ORDERED: SODIUM POLYSTYRENE SULFONATE 15G/60ML SUSP PO STA (20:45)
[2019-04-26] MEDS: HEPARIN SOD 5,000 UNIT/0.5 ML VIAL SQ SCH (21:43)
[2019-04-26] MEDS ORDERED: LEVOTHYROXINE SODIUM 75 MCG TABLET PO SCH (22:00)
[2019-04-26] MEDS: ONDANSETRON INJ 2 MG/ML 2 ML VIAL IV PRN (23:16)
[2019-04-26] MEDS ORDERED: PROMETHAZINE HCL 12.5 MG in SODIUM CHLORIDE 0.9% 50 ML IV STA (23:43)
[2019-04-27] MEDS ORDERED: PROMETHAZINE HCL 12.5 MG in SODIUM CHLORIDE 0.9% 50 ML IV STA (00:45)
--- NOTE | 2019-04-27 03:39 | Progress Note ---
Date of Service April 27, 2019 Received a text page from the patient's nurse stating that the patient was complaining of some nausea and vomiting along with abdominal discomfort. In brief chart review, the patient was admitted earlier this evening related to hyperkalemia from his ESRD. He also underwent left lower extremity angiogram and angioplasty by Dr. Tan earlier in the day.He is apparently on track for dialysis today (March 28). Saw patient at bedside. He stated that he did have a small amount of mostly mucus-like emesis admit his entire abdomen just feels very uncomfortable. He notes he has not had a bowel movement for about 2 weeks. Doses of Phenergan seemed to help with his nausea. On exam, patient is afebrile, not tachycardic, and has a mildly distended abdomen which is also mildly tender to palpation throughout but non-peritoneal. Overall he is speaking comfortably does not appear overtly nauseous. As a precaution, a portable KUB was ordered which showed some stool burden but no obvious evidence of an obstructive process. [Formal radiology read is pending.] Shortly after this KUB, the patient's nurse provided an update stating the patient had a very large bowel movement. Harini Fontana, PGY3 Overnight call Results & Data Vital Signs (Past 12 Hours) Vital Signs Temp Pulse Pulse Resp BP BP BP 04/27/19 02:26 36.8 C 81 18 113/62 04/27/19 00:15 36.8 C 86 19 107/58 L 04/26/19 20:15 36.8 C 89 20 162/73 H 04/26/19 19:30 76 19 112/54 L 04/26/19 19:20 80 24 04/26/19 19:10 79 21 04/26/19 19:01 20 106/65 04/26/19 19:00 91 H 24 04/26/19 18:50 83 19 04/26/19 18:40 79 14 04/26/19 18:31 78 18 100/56 L 04/26/19 18:30 76 30 H 04/26/19 18:20 80 22 04/26/19 18:10 84 19 04/26/19 18:01 91 H 23 101/56 L 04/26/19 18:00 78 20 04/26/19 17:51 75 24 135/70 04/26/19 17:50 83 16 04/26/19 17:40 75 20 04/26/19 17:31 84 22 135/70 04/26/19 17:30 78 24 04/26/19 17:20 83 23 04/26/19 17:10 84 24 04/26/19 17:01 81 17 144/80 H 04/26/19 17:00 83 21 04/26/19 16:50 74 19 04/26/19 16:40 76 16 04/26/19 16:31 77 19 115/69 04/26/19 16:30 88 18 04/26/19 16:20 80 24 04/26/19 16:10 75 22 04/26/19 16:00 80 18 04/26/19 15:50 76 19 04/26/19 15:47 78 21 110/71 04/26/19 15:40 77 25 H Pulse Ox 04/27/19 02:26 98 04/27/19 00:15 93 04/26/19 20:15 93 04/26/19 19:30 100 04/26/19 19:20 100 04/26/19 19:10 04/26/19 19:01 04/26/19 19:00 04/26/19 18:50 100 04/26/19 18:40 100 04/26/19 18:31 100 04/26/19 18:30 100 04/26/19 18:20 100 04/26/19 18:10 04/26/19 18:01 100 04/26/19 18:00 100 04/26/19 17:51 100 04/26/19 17:50 100 04/26/19 17:40 100 04/26/19 17:31 100 04/26/19 17:30 99 04/26/19 17:20 100 04/26/19 17:10 100 04/26/19 17:01 100 04/26/19 17:00 100 04/26/19 16:50 100 04/26/19 16:40 100 04/26/19 16:31 04/26/19 16:30 100 04/26/19 16:20 100 04/26/19 16:10 04/26/19 16:00 86 L 04/26/19 15:50 95 04/26/19 15:47 97 04/26/19 15:40 98
[2019-04-27] MEDS: ONDANSETRON INJ 2 MG/ML 2 ML VIAL IV PRN ×3 (05:31→19:30)
[2019-04-27 06:24] LABS: BUN Creatinine Ratio 4.5 (10-20); Calcium 8.6 mg/dl (8.5-10.1); Creatinine Clr Calc Pharmacy 10.3 ml/min; Est GFR (African American) 6.7; Est GFR (Non-African American) 5.8
--- NOTE | 2019-04-27 06:48 | XRay Report ---
KUB CLINICAL HISTORY: vomiting, constipation, eval for obstruction COMPARISON STUDY: CT of the abdomen and pelvis September 26, 2018. FINDINGS: Incidental note is made of an aortoiliac stent graft. There is extensive vascular calcifica tion. There is no evidence for a bowel obstruction. Slight dilatation of the sigmoid colon is noted w ithout convincing evidence for a bowel obstruction. IMPRESSION: Slight dilatation of the sigmoid colon without evidence for a bowel obstruction. Electronically signed by: Frank Lombardo M.D. 04/27/2019 6:47 AM
[2019-04-27] MEDS ORDERED: HEPARIN SOD (PORCINE) 1000 UNIT/ML 10 ML VIAL IV SCH (07:09)
[2019-04-27] MEDS ORDERED: SODIUM CHLORIDE 0.9% 1000ML 1,000 ML IV PRN (07:09)
--- NOTE | 2019-04-27 07:11 | Nephrology Consultation ---
Date of Consultation April 27, 2019 Assessment & Plan (1) ESRD (end stage renal disease) on dialysis: for routine HD today w/ up to 2 L fluid removal as tolerated to optimize respiratory/volume status; he tolerated only minimal fluid removal w/ dialysis d/t symptomatic hypotension. I do think that prior to this setback he had been eating better and gaining some lean body mass Present on Admission?: Yes (2) Hyperkalemia: managed medically overnight; K 5.0 this am Present on Admission?: Yes (3) Nausea & vomiting: per primary service; no new ECG changes on first ECG; second one pending Present on Admission?: Yes (4) Orthostatic hypotension: continue midodrine; consider lowering coreg dose if persistent Present on Admission?: Yes (5) Fever: f/u pending cxs; per primary service Present on Admission?: Yes History of Present Illness Reason for Consultation: ESRD on dialysis Requesting Physician: Dr Hoffman Attending Physician: Leon Hoffman MD History of Present Illness 73 y/o M whom I'm asked to see for ESRD care after he was admitted yesterday after near syncope, intractable vomiting, and hypotension after LLE angiogram and L peroneal angioplasty yesterday in OP surgery. PMH includes ESRD on MWF HD via AVF, CAD s/p 2V CABG and w/ MVR, COPD, stroke, AAA s/p repair, anxiety, severe PVD s/p 2012 aorta - iliac - femoral bypass and AAA repair and s/p R superficial femoral - ant tibial bypass 07/2018 and chronic lower extremity wounds, infections. He dialyzes under my care at [facility]. He follows closely w/ Dr Tan, infectious diseases, and the wound clinic. His K on presentation to ER yesterday was 5.8; had been 4.0 earlier in day. I discussed this w/ ER attending and it was managed medically w/ insulin IV, bicarbonate. he c/o significant constipation on presentation but did have large BM overnight. He had a F to 38.3 this am and blood cultures were obtained. Vascular does not believe that F relates to procedure. We did dialysis today w/ only 400 mL fluid removed d/t sbp in 80s during much of the treatment. he has a hx of hypotension but not usually in this range. He gets midodrine on HD days; SBP after treatment is in 100s. He had ongoing N and abdominal pain during treatment. Allergies Allergy/AdvReac Type Severity Reaction Status Date / Time tramadol Allergy Unknown dizziness;a Verified 04/26/19 05:59 nxiety;sob gabapentin Allergy Unknown Verified 04/26/19 11:26 oxycodone AdvReac Severe DELIRIUM Verified 04/26/19 05:59 Home Medications Home Medications Medication Instructions Recorded Confirmed Type Breo Ellipta 1 inh INHALATION DAILY 08/23/18 04/26/19 History albuterol sulfate 2 puff INHALATION Q6H PRN 08/23/18 04/26/19 History amiodarone 200 mg PO Q OTHER DAY 08/23/18 04/26/19 History aspirin [Aspir-Low] 81 mg PO QAM 08/23/18 04/26/19 History atorvastatin 40 mg PO HS 08/23/18 04/26/19 History calcium acetate 667 mg PO TIDM 08/23/18 04/26/19 History cyanocobalamin (vitamin B-12) 1,000 mcg PO 3XWK 08/23/18 04/26/19 History paroxetine HCl 20 mg PO QAM 08/23/18 04/26/19 History Spiriva with HandiHaler 1 cap INHALATION DAILY 08/30/18 04/26/19 History azithromycin 500 mg PO DIRECTED PRN 08/30/18 04/26/19 History omeprazole 20 mg PO DAILY 08/30/18 04/26/19 History lidocaine 4 % topical patch 1 patch TOP TID PRN 02/10/19 04/26/19 History pregabalin 75 mg capsule 75 mg PO DAILY cap 02/10/19 04/26/19 History polyethylene glycol 3350 17 8.5 gm PO DAILY PRN #119 gm 03/30/19 04/26/19 Rx gram/dose oral powder carvedilol 6.25 mg tablet 6.25 mg PO UD tab 03/31/19 04/26/19 History cefadroxil 500 mg capsule 500 mg PO DAILY cap 03/31/19 04/26/19 History famotidine 20 mg tablet 20 mg PO 3XWK tab 03/31/19 04/26/19 History ipratropium-albuterol 0.5 mg-3 3 ml INHALATION Q6H PRN ml 03/31/19 04/26/19 History mg(2.5 mg base)/3 mL nebulization soln levothyroxine 75 mcg capsule 75 mcg PO HS cap 03/31/19 04/26/19 History midodrine 5 mg tablet 5 mg PO TID tab 03/31/19 04/26/19 History saliva substitute combo no.9 10 ml PO DAILY PRN ml 03/31/19 04/26/19 History mouthwash triamcinolone acetonide 0.1 % 1 appln TOP BID #453.6 gm 03/31/19 04/26/19 Rx topical cream clopidogrel [Plavix] 75 mg PO DAILY #30 tab 04/26/19 04/26/19 Rx midodrine 5 mg PO .QID UD 04/26/19 04/26/19 History Patient History Medical History Gangrene (Resolved) Atrial fibrillation (Resolved) AAA (abdominal aortic aneurysm) (Resolved) Anxiety (Chronic) Chronic GERD (Chronic) Myocardial infarct, old (Chronic) 2010 CVA (cerebral vascular accident) (Chronic) "NO RESIDUAL EFFECTS" PER RECORDS GERD (gastroesophageal reflux disease) (Chronic) Peripheral vascular disease (Chronic) H/O: gout (Chronic) Anxiety (Chronic) Depression (Chronic) Atrial fibrillation (Chronic) PAROXYSMAL- ON ASA PER RECORDS Gangrene of toe (Acute) right toes REASON FOR PROCEDURE CAD (coronary artery disease) (Chronic) S/P CABG X2 (DURING MVR) 2010 Valvular disease (Chronic) S/P MVR (2010); ?AVR PER RECORDS Acute osteomyelitis of foot (Acute) AV fistula (Chronic) right arm ESRD (end stage renal disease) Encounter for central line placement (Acute) Surgical History Hx of CABG (Acute) S/P CABG X2 (DURING MVR) 2010 S/P cholecystectomy (Resolved) H/O abdominal aortic aneurysm repair (Resolved) 2011 H/O mitral valve repair (Resolved) 2010; ?AVR PER RECORDS H/O [id number] bypass (Resolved) 2012 Difficult intubation (Chronic) B/L Anteriogram, Right femoral to anterior tibial cadaver vein bypass= 08/06/18= Grade view 4, MAC 3 --> Glidescope #3, ETT 7.5 at [facility] Family History Mother Essential hypertension Father , age 76 Myocardial infarction Social History Preferred Language: Greenlandic Communication Ability: Effective Visual Impairment: No Limitations Beliefs That Will Affect Care: None marital status: / marital status details: 1 daughter Current Living Situation: Family Current Living Situation Comment: lives with his sister 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 Feels Safe at Home: Yes Smoking Status: Former smoker Tobacco Type: cigars Second Hand Exposure: No Hx Alcohol Use: Yes Hx Substance Use: No Review of Systems Review of Systems: All systems reviewed & are unremarkable except as noted in HPI & below Constitutional: as per Subjective / HPI, + fever, + malaise and + weakness Eyes: no worsening vision Ear, Nose, Mouth, Throat: + dry mouth Respiratory: + cough; no dyspnea and no pain on inspiration Cardiovascular: + lightheadedness; no chest pain, no dyspnea on exertion, no palpitations and no edema Gastrointestinal: as per Subjective / HPI, + abdominal pain, + vomiting, + cramping, + change in bowel habits, + constipation and + diarrhea/loose stools Genitourinary: + problem reported (anuric) Musculoskeletal: + muscle weakness Integumentary: chronic LE wounds Neurologic: + generalized weakness Hematologic / Lymphatic: no easy bleeding Physical Exam Constitutional: well developed and + frail appearing mild distress from malaise, N Eyes: EOM intact bilaterally; no EOM movement deficit ENMT: Ears: no external ear abnormality Nose: no external nose abnormality Mouth: + dry oral mucous membranes Neck: no nuchal rigidity Respiratory: normal respiratory effort Auscultation: + diminished lung sounds (but clear on anterior exam (seen on dialysis)) Cardiovascular: Rate/Rhythm: + irregularly irregular Extremities: + AV fistula; no edema Gastrointestinal (Abdomen): Inspection/Auscultation: normal bowel sounds Percussion/Palpation: + abdomen tender (diffusely) and abdomen soft; no guarding and abdomen not rigid Musculoskeletal: Extremities: strength 5/5 throughout Skin: no rashes, warm and dry chronic venous stasis changes distal legs; wounds not examined Neurologic: tompkins, fluent speech, no tremor Psychiatric: Orientation: alert, oriented to person, oriented to place and cooperative Eye Contact: + fair eye contact Affect: + anxious affect Results & Data Vital Signs (Past 12 Hours) Vital Signs Temp Pulse Pulse Resp BP BP BP 04/27/19 02:26 36.8 C 81 18 113/62 04/27/19 00:15 36.8 C 86 19 107/58 L 04/26/19 20:15 36.8 C 89 20 162/73 H 04/26/19 19:30 76 19 112/54 L 04/26/19 19:20 80 24 Pulse Ox 04/27/19 02:26 98 04/27/19 00:15 93 04/26/19 20:15 93 04/26/19 19:30 100 04/26/19 19:20 100 Laboratory Results Abnormal lab results 04/26/19 04/26/19 04/27/19 Range/Units 16:18 17:22 05:45 WBC 12.87 H (4.8-10.8) K/uL RBC 3.32 L (4.7-6.1) M/uL Hgb 10.5 L (14.0-18.0) g/dL Hct 32.2 L (42-52) % RDW Std Deviation 67.6 H (36.4-46.3) fL RDW Coeff of Jolanta 19.1 H (11.5-14.5) % Immature Gran # (Auto) 0.06 H (0.00-0.02) K/uL Neut # (Auto) 10.20 H (1.4-6.5) K/uL Lymph # (Auto) 0.98 L (1.2-3.4) K/uL [place] # (Auto) 1.49 H (0.11-0.59) K/uL Sodium 132 L 135 L (136-145) mmol/L Potassium 5.8 H D (3.5-5.1) mmol/L Chloride 94 L 93 L (98-107) mmol/L Anion Gap 12.0 H (3-11) BUN 30 H 37 H (7-18) mg/dl Creatinine 6.97 H* D 8.29 H* D (0.6-1.4) mg/dl BUN/Creatinine Ratio 4.2 L 4.5 L (10-20) Alkaline Phosphatase 142 H (45-117) U/L Albumin 3.2 L (3.4-5.0) gm/dl Diagnostic Findings cxr 1. Parenchymal infiltrate/atelectasis left base. 2. Mild stable cardiomegaly. (1) Nausea & vomiting Vomiting Intractability: unspecified Vomiting type: unspecified Qualified Code(s): R11.2 - Nausea with vomiting, unspecified
[2019-04-27] MEDS: HEPARIN SOD 5,000 UNIT/0.5 ML VIAL SQ SCH (08:22)
[2019-04-27] MEDS: MIDODRINE HCL 2.5 MG TAB PO SCH ×4 (08:22→17:07)
[2019-04-27] MEDS: CALCIUM ACETATE 667 MG CAP PO SCH ×3 (08:23→17:07)
[2019-04-27] MEDS: PARoxetine HCl 20 MG TAB PO SCH (08:23)
[2019-04-27] MEDS: ASPIRIN 81 MG ECTAB PO SCH (08:23)
[2019-04-27] MEDS: TIOTROPIUM BROMIDE 5 PUFF/90 MCG INH INH SCH (08:24)
[2019-04-27] MEDS: PANTOprazole 40 MG TAB PO SCH (08:24)
[2019-04-27] MEDS: PREGABALIN 75 MG CAP PO SCH (08:28)
[2019-04-27] MEDS ORDERED: CLOPIDOGREL BISULFATE 75 MG TAB PO SCH (09:00)
[2019-04-27] MEDS ORDERED: AMIODARONE 200 MG TAB PO SCH (09:00)
[2019-04-27] MEDS ORDERED: FAMOTIDINE 20 MG TAB PO SCH (09:00)
[2019-04-27 10:00] LABS: Hepatitis B Surface Antibody Immune
[2019-04-27 10:11] LABS: Hepatitis B Surface Antigen Neg (Neg)
[2019-04-27] MEDS ORDERED: VANCOMYCIN CONSULT ACTIVE PRN (10:23)
[2019-04-27] MEDS ORDERED: PIPERACILL/TAZOBAC CONSULT ACTIVE PRN (10:23)
[2019-04-27] MEDS ORDERED: VANCOMYCIN HCL 1,000 MG in SODIUM CHLORIDE 0.9% 250 ML IV SCH (10:30)
[2019-04-27] MEDS: HEPARIN SOD (PORCINE) 1000 UNIT/ML 10 ML VIAL IV SCH ×2 (11:28→11:29)
[2019-04-27] MEDS ORDERED: PIPERACILLIN/TAZOBACTAM 3.375 GM in DEXTROSE 5% 100 ML IV ONE (11:30)
--- NOTE | 2019-04-27 11:47 | Pharmacy Report ---
Pharmacy Abx Initial Consult - Date of Service April 27, 2019 - Pharmacy Dosing Scope Date of Consult: 04/27/19 Consultation requested by: Dr. Araya Pharmacy is consulted to initiate vancomycin/zosyn IV/PO dosing therapy, order appropriate labs and adjust drug dose/frequency. - Subjective The patient is a 73 year old M admitted on 04/26/19 18:52. - Objective Height: 6 ft 2 in Weight: 105.2 kg Vital Signs (Past 12hrs): Vital Signs Temp Pulse Pulse Pulse Resp BP BP 04/27/19 11:20 92 H 77/32 L 04/27/19 11:00 90 83/41 L 04/27/19 10:45 79/42 L 04/27/19 10:40 98 H 70/36 L 04/27/19 10:20 92 H 80/45 L 04/27/19 10:00 99 H 114/50 L 04/27/19 09:40 92 H 107/53 L 04/27/19 09:31 38.3 C H 92 H 92 H 110/33 L 04/27/19 07:54 36.7 C 95 H 24 144/83 H 04/27/19 02:26 36.8 C 81 18 113/62 04/27/19 00:15 36.8 C 86 19 107/58 L Pulse Ox 04/27/19 11:20 04/27/19 11:00 04/27/19 10:45 04/27/19 10:40 04/27/19 10:20 04/27/19 10:00 04/27/19 09:40 04/27/19 09:31 04/27/19 07:54 96 04/27/19 02:26 98 04/27/19 00:15 93 Lab Results (24hrs): Laboratory Tests (24 Hours) 04/27/19 04/26/19 04/26/19 05:45 17:22 16:18 WBC Neut # (Auto) Creatinine 8.29 H* D 6.97 H* D Cancelled Est Cr Clr Drug Dosing 10.3 12.6 Cancelled 04/26/19 16:18 WBC 12.87 H Neut # (Auto) 10.20 H Creatinine Est Cr Clr Drug Dosing - Risk Factors for Resistance * Chronic dialysis within the past 30 days - Assessment & Plan Assessment 73 year old M presented from surgical center on 04/26 after heel angioplasty, patient felt weak, orthostatic with n/v. Patient has ESRD receiving dialysis. Patient febrile today, 38.3, leukocytosis on admission 12.8, chest x-ray " Parenchymal infiltrate/atelectasis left base." Starting vancomycin/zosyn for possible pneumonia Plan Vancomycin IV * Loading dose: 2250 mg (21 mg/kg) * Will dose by levels as patient on HD; will get random level tomorrow AM to assist with dosing Piperacillin/tazobactam * 3.375 g bolus administered over 30 minutes, then 3.375 g IV extended infusion every 12 hours for dialysis. * Aggressive dosing selected due to critically ill status/BMI 35 or more/history of cystic fibrosis. Pharmacy will continue to follow and will adjust dose/frequency as necessary. Thank you.
--- NOTE | 2019-04-27 13:44 | Consultation ---
Date of Consultation April 27, 2019 History of Present Illness Reason for Consultation: Post procedure Attending Physician: Fatuma Araya MD History of Present Illness No consult needed Patient post WWE WRESTLER of left peroneal artery Hematoma of left groin soft. No evidence of infection of the puncture sites. Foot warm with good cap refill. No vascular cause of his fever is seen Thank you very much for letting us participate in the care of this patient. Allergies Allergy/AdvReac Type Severity Reaction Status Date / Time tramadol Allergy Unknown dizziness;a Verified 04/26/19 05:59 nxiety;sob gabapentin Allergy Unknown Verified 04/26/19 11:26 oxycodone AdvReac Severe DELIRIUM Verified 04/26/19 05:59 Home Medications Home Medications Medication Instructions Recorded Confirmed Type Breo Ellipta 1 inh INHALATION DAILY 08/23/18 04/26/19 History albuterol sulfate 2 puff INHALATION Q6H PRN 08/23/18 04/26/19 History amiodarone 200 mg PO Q OTHER DAY 08/23/18 04/26/19 History aspirin [Aspir-Low] 81 mg PO QAM 08/23/18 04/26/19 History atorvastatin 40 mg PO HS 08/23/18 04/26/19 History calcium acetate 667 mg PO TIDM 08/23/18 04/26/19 History cyanocobalamin (vitamin B-12) 1,000 mcg PO 3XWK 08/23/18 04/26/19 History paroxetine HCl 20 mg PO QAM 08/23/18 04/26/19 History Spiriva with HandiHaler 1 cap INHALATION DAILY 08/30/18 04/26/19 History azithromycin 500 mg PO DIRECTED PRN 08/30/18 04/26/19 History omeprazole 20 mg PO DAILY 08/30/18 04/26/19 History lidocaine 4 % topical patch 1 patch TOP TID PRN 02/10/19 04/26/19 History pregabalin 75 mg capsule 75 mg PO DAILY cap 02/10/19 04/26/19 History polyethylene glycol 3350 17 8.5 gm PO DAILY PRN #119 gm 03/30/19 04/26/19 Rx gram/dose oral powder carvedilol 6.25 mg tablet 6.25 mg PO UD tab 03/31/19 04/26/19 History cefadroxil 500 mg capsule 500 mg PO DAILY cap 03/31/19 04/26/19 History famotidine 20 mg tablet 20 mg PO 3XWK tab 03/31/19 04/26/19 History ipratropium-albuterol 0.5 mg-3 3 ml INHALATION Q6H PRN ml 03/31/19 04/26/19 History mg(2.5 mg base)/3 mL nebulization soln levothyroxine 75 mcg capsule 75 mcg PO HS cap 03/31/19 04/26/19 History midodrine 5 mg tablet 5 mg PO TID tab 03/31/19 04/26/19 History saliva substitute combo no.9 10 ml PO DAILY PRN ml 03/31/19 04/26/19 History mouthwash triamcinolone acetonide 0.1 % 1 appln TOP BID #453.6 gm 03/31/19 04/26/19 Rx topical cream clopidogrel [Plavix] 75 mg PO DAILY #30 tab 04/26/19 04/26/19 Rx midodrine 5 mg PO .QID UD 04/26/19 04/26/19 History Patient History Medical History Gangrene (Resolved) Atrial fibrillation (Resolved) AAA (abdominal aortic aneurysm) (Resolved) Anxiety (Chronic) Chronic GERD (Chronic) Myocardial infarct, old (Chronic) 2010 CVA (cerebral vascular accident) (Chronic) "NO RESIDUAL EFFECTS" PER RECORDS GERD (gastroesophageal reflux disease) (Chronic) Peripheral vascular disease (Chronic) H/O: gout (Chronic) Anxiety (Chronic) Depression (Chronic) Atrial fibrillation (Chronic) PAROXYSMAL- ON ASA PER RECORDS Gangrene of toe (Acute) right toes REASON FOR PROCEDURE CAD (coronary artery disease) (Chronic) S/P CABG X2 (DURING MVR) 2010 Valvular disease (Chronic) S/P MVR (2010); ?AVR PER RECORDS Acute osteomyelitis of foot (Acute) AV fistula (Chronic) right arm ESRD (end stage renal disease) Encounter for central line placement (Acute) Surgical History Hx of CABG (Acute) S/P CABG X2 (DURING MVR) 2010 S/P cholecystectomy (Resolved) H/O abdominal aortic aneurysm repair (Resolved) 2011 H/O mitral valve repair (Resolved) 2010; ?AVR PER RECORDS H/O xexaa-oguzy-vpmlyzr bypass (Resolved) 2012 Difficult intubation (Chronic) B/L Anteriogram, Right femoral to anterior tibial cadaver vein bypass= 08/06/18= Grade view 4, MAC 3 --> Glidescope #3, ETT 7.5 at [facility] Family History Mother Essential hypertension Father , age 76 Myocardial infarction Social History Preferred Language: Somali Communication Ability: Effective Visual Impairment: No Limitations Beliefs That Will Affect Care: None marital status: / marital status details: 1 daughter Current Living Situation: Family Current Living Situation Comment: lives with his sister 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 Feels Safe at Home: Yes Smoking Status: Former smoker Tobacco Type: cigars Second Hand Exposure: No Hx Alcohol Use: Yes Hx Substance Use: No Results & Data Vital Signs (Past 12 Hours) Vital Signs Temp Pulse Pulse Pulse Resp BP BP 04/27/19 12:45 80/41 L 04/27/19 12:40 91 H 66/30 L 04/27/19 12:20 94 H 77/44 L 04/27/19 12:00 94 H 83/44 L 04/27/19 11:44 97 H 79/42 L 04/27/19 11:20 92 H 77/32 L 04/27/19 11:00 90 83/41 L 04/27/19 10:45 79/42 L 04/27/19 10:40 98 H 70/36 L 04/27/19 10:20 92 H 80/45 L 04/27/19 10:00 99 H 114/50 L 04/27/19 09:40 92 H 107/53 L 04/27/19 09:31 38.3 C H 92 H 92 H 110/33 L 04/27/19 07:54 36.7 C 95 H 24 144/83 H 04/27/19 02:26 36.8 C 81 18 113/62 Pulse Ox 04/27/19 12:45 04/27/19 12:40 04/27/19 12:20 04/27/19 12:00 04/27/19 11:44 04/27/19 11:20 04/27/19 11:00 04/27/19 10:45 04/27/19 10:40 04/27/19 10:20 04/27/19 10:00 04/27/19 09:40 04/27/19 09:31 04/27/19 07:54 96 04/27/19 02:26 98
[2019-04-27] MEDS ORDERED: VANCOMYCIN HCL 2,250 MG in SODIUM CHLORIDE 0.9% 500 ML IV ONE (14:00)
[2019-04-27 14:16] LABS: Basophils # (auto) 0.03 K/uL (0-0.2); Basophils % (auto) 0.2 %; Eosinophils # (auto) 0.01 K/uL (0-0.5); Eosinophils % (auto) 0.1 %; Hematocrit (blood only) 31.2 % (42-52); Hemoglobin 10.2 g/dL (14.0-18.0); Immature Granulocytes # (auto) 0.04 K/uL (0.00-0.02); Immature Granulocytes % (auto) 0.2 %; Lymphocytes # (auto) 0.84 K/uL (1.2-3.4); Lymphocytes % (auto) 5.1 %; Mean Corpuscular Volume 99.7 fL (80-100); Mean Platelet Volume 8.9 fL (7.4-10.4); Monocytes # (auto) 0.99 K/uL (0.11-0.59); Neutrophils # (auto) 14.58 K/uL (1.4-6.5); Neutrophils % (auto) 88.4 %; Platelet Count 142 K/uL (130-400); RDW Coefficient of Variation 19.5 % (11.5-14.5); Red Blood Count 3.13 M/uL (4.7-6.1); White Blood Count 16.49 K/uL (4.8-10.8)
[2019-04-27 14:44] LABS: Mean Corpuscular Hgb Conc 32.7 g/dL (32-36)
[2019-04-27] MEDS: PIPERACILLIN/TAZOBACTAM 3.375 GM in DEXTROSE 5% 100 ML IV SCH (17:07)
--- NOTE | 2019-04-27 18:18 | Dialysis Progress Note ---
Date of Service April 27, 2019 Assessment & Plan (1) ESRD (end stage renal disease) on dialysis: -for routine HD today w/ up to 2 L fluid removal as tolerated to optimize respiratory/volume status; he tolerated only minimal fluid removal w/ dialysis d/t symptomatic hypotension. -I do think that prior to this setback he had been eating better and gaining some lean body mass -next HD on 04/29 or as clinical needs dictate (2) Hyperkalemia: managed medically overnight; K 5.0 this am (3) Nausea & vomiting: per primary service; no new ECG changes on first ECG; second one pending (4) Orthostatic hypotension: continue midodrine; consider lowering coreg dose if persistent; low threshold to consider TTE if persistent/ worse than baseline (5) Fever: f/u pending cxs; per primary service; lactate wnl; prolactin elevated Subjective seen on dialysis. miserable d/t N / malaise for most of treatment. tolerated about 400 mL UF. Review of Systems Review of Systems: All systems reviewed & are unremarkable except as noted in HPI & below Physical Exam Constitutional: well developed and + frail appearing Eyes: EOM intact bilaterally; no EOM movement deficit ENMT: Ears: no external ear abnormality Nose: no external nose abnormality Mouth: + dry oral mucous membranes Neck: no nuchal rigidity Respiratory: normal respiratory effort Auscultation: + diminished lung sounds (but clear on anterior exam (seen on dialysis)) Cardiovascular: Rate/Rhythm: + irregularly irregular Extremities: + AV fistula; no edema Gastrointestinal (Abdomen): Inspection/Auscultation: normal bowel sounds Percussion/Palpation: + abdomen tender (diffusely) and abdomen soft; no guarding and abdomen not rigid Musculoskeletal: Extremities: strength 5/5 throughout Skin: no rashes, warm and dry Psychiatric: Orientation: alert, oriented to person, oriented to place and cooperative Eye Contact: + fair eye contact Affect: + anxious affect Results & Data Vital Signs (Past 12 Hours) Vital Signs Temp Pulse Pulse Pulse Resp BP BP 04/27/19 15:50 36.9 C 91 H 20 111/58 L 04/27/19 14:00 36.4 C L 92 H 20 95/67 L 04/27/19 13:42 36.8 C 86 86 95/50 L 95/50 L 04/27/19 13:20 88 79/39 L 07/03/19 13:00 90 79/41 L 04/27/19 12:45 80/41 L 04/27/19 12:40 91 H 66/30 L 04/27/19 12:20 94 H 77/44 L 04/27/19 12:00 94 H 83/44 L 04/27/19 11:44 97 H 79/42 L 04/27/19 11:20 92 H 77/32 L 04/27/19 11:00 90 83/41 L 04/27/19 10:45 79/42 L 04/27/19 10:40 98 H 70/36 L 04/27/19 10:20 92 H 80/45 L 04/27/19 10:00 99 H 114/50 L 04/27/19 09:40 92 H 107/53 L 04/27/19 09:31 38.3 C H 92 H 92 H 110/33 L 04/27/19 07:54 36.7 C 95 H 24 144/83 H Pulse Ox 04/27/19 15:50 99 04/27/19 14:00 98 04/27/19 13:42 04/27/19 13:20 04/27/19 13:00 04/27/19 12:45 04/27/19 12:40 04/27/19 12:20 04/27/19 12:00 04/27/19 11:44 04/27/19 11:20 04/27/19 11:00 04/27/19 10:45 04/27/19 10:40 04/27/19 10:20 04/27/19 10:00 04/27/19 09:40 04/27/19 09:31 04/27/19 07:54 96 Laboratory Results reviewed (1) Nausea & vomiting Vomiting Intractability: unspecified Vomiting type: unspecified Qualified Code(s): R11.2 - Nausea with vomiting, unspecified
--- NOTE | 2019-04-27 18:21 | Hospitalist Progress Note ---
Date of Service April 27, 2019 Assessment & Plan (1) Fever: Patient spiked a fever the day after admission on 04/27 With nausea and vomiting day before and left lower lobe infiltrate on chest x- ray, could be aspiration pneumonia He has a worsening leukocytosis, procalcitonin is elevated at 2.14, lactate is normal at 1.7 Seen by vascular surgery and is recent vascular procedure is not the source of his fever as per their consultation note With abdominal pain and distention which could be due to severe constipation, but could have an infectious source in the abdomen -Nonetheless, will check CT the abdomen pelvis now without contrast to look for source of infection -Jens blood cultures-follow -Unsure if makes urine, if so, can get UA with culture -Start Zosyn and vancomycin to cover for gram-negative and aspiration pneumonia, and MRSA pneumonia as he is MRSA screen positive -Acetaminophen as needed for fever -Follow CBC, procalcitonin in the morning (2) Aspiration pneumonia: Secondary to nausea and vomiting on the day of admission With left lower lobe infiltrate seen on chest x-ray, fever, leukocytosis, elevated procalcitonin -Treatment as above (3) Nausea & vomiting: Possibly due to orthostasis and severe constipation-he had not had a bowel movement for 2 weeks prior to admission He did have a large bowel movement once so far last night after receiving Kayexalate and bisacodyl suppository Persists with abdominal pain as above -KUB without obstruction earlier today -Check CT the abdomen pelvis -Antiemetics as needed (4) Abdominal pain: As above, could be secondary constipation versus infectious source -Checking CT abdomen/pelvis (5) Orthostatic hypotension: Continue midodrine, long-standing, recently had the dose increased to 5 mg 4 times daily on dialysis days Had blood pressure done in the 60s systolic with dialysis today (6) Atrial fibrillation: Is in normal sinus rhythm here -Continue amiodarone every other day -Follows with Dr. frazier for cardiology -His Coreg was discontinued several weeks ago for low blood pressures- discontinued it here Not on anticoagulation-unclear reason why -Continue aspirin (7) Hx of CABG: Two-vessel CABG simultaneously with his MVR -Continue aspirin, Plavix, statin -Not on beta-maxim due to hypotension as above (8) GERD (gastroesophageal reflux disease): -Continue omeprazole and Pepcid (9) Constipation: No bowel movement for 2 weeks prior to admission Had a large bowel movement this morning after bisacodyl suppository and Kayexalate -Hold off on further laxatives at this time until after CT scan (10) Hypothyroidism: TSH is stable -Continue levothyroxine (11) CAD (coronary artery disease): As above (12) ESRD (end stage renal disease) on dialysis: Appreciate nephrology consultation Had hemodialysis on 04/27 with removal of only 400 mL's of fluid -Follow BMP -Continue PhosLo (13) Sepsis: As above, possibly due to pneumonia versus abdominal source (14) Hyperkalemia: Potassium 5.8 on admission he was given calcium gluconate and Kayexalate. He was down to 5.0 this morning and then had hemodialysis after that -Follow BMP (15) Anemia of chronic disease: Hemoglobin fairly stable at 10 Follow CBC (16) DVT prophylaxis: Heparin subcu Disposition-remain on telemetry Subjective Patient spiked fever during dialysis today and blood pressures were in the 60s systolic briefly. He continues to have significant nausea and has been not able to take down much by mouth at all today in the form of liquids. He reports having mid abdominal pain for about the last week but did have a large bowel movement overnight which he does not remember having. He has not had any further bowel movements since then. He is still having the mid abdominal pain and feels distended in the abdomen. He states he feels "lousy." He reports he has had a cough that is productive for 2 months. I discussed his care with his sister who he designates as his healthcare decision-maker. She tells me that he was taken off of carvedilol several weeks ago and I removed it from the home med list. She also reported that he was n.p.o. prior to his angiogram yesterday and thinks that that plus lying flat for 3 hours after the procedure is what led to his worsening orthostasis and subsequent nausea and vomiting. Patient denies chest pain or shortness of breath. Telemetry with normal sinus rhythm with rates in the 80s to 90s. Review of Systems Review of Systems: All systems reviewed & are unremarkable except as noted in HPI & below Physical Exam Constitutional: + ill appearing and average body habitus Eyes: PERRL, conjunctivae normal, anicteric sclerae ENMT: Ears: no hearing impairment Mouth: + dry oral mucous membranes Neck: trachea midline, no thyromegaly Respiratory: normal respiratory effort; no labored breathing Auscultation: + crackles (left base); no wheezes Cardiovascular: Rate/Rhythm: regular rate and regular rhythm Heart Sounds: no murmur Extremities: + AV fistula (RUE) Gastrointestinal (Abdomen): Inspection/Auscultation: abdomen normal to inspection and + abdomen distended (mildly); + abnormal bowel sounds (High- pitched and hypoactive) Percussion/Palpation: + abdomen tender (in periumbilical region without guarding or rebound); no guarding, abdomen not rigid and no abdominal mass Musculoskeletal: Extremities: extremities normal to inspection; no cyanosis and no clubbing Skin: no rashes, warm and dry Neurologic: moves all extremities and awake; no focal motor deficits Psychiatric: A+Ox3, euthymic affect Genitourinary: no testicular masses, no penis abnormality Results & Data Vital Signs (Past 12 Hours) Vital Signs Temp Pulse Pulse Pulse Resp BP BP 04/27/19 15:50 36.9 C 91 H 20 111/58 L 04/27/19 14:00 36.4 C L 92 H 20 95/67 L 04/27/19 13:42 36.8 C 86 86 95/50 L 95/50 L 04/27/19 13:20 88 79/39 L 04/27/19 13:00 90 79/41 L 04/27/19 12:45 80/41 L 04/27/19 12:40 91 H 66/30 L 04/27/19 12:20 94 H 77/44 L 04/27/19 12:00 94 H 83/44 L 04/27/19 11:44 97 H 79/42 L 04/27/19 11:20 92 H 77/32 L 04/27/19 11:00 90 83/41 L 04/27/19 10:45 79/42 L 04/27/19 10:40 98 H 70/36 L 04/27/19 10:20 92 H 80/45 L 04/27/19 10:00 99 H 114/50 L 04/27/19 09:40 92 H 107/53 L 04/27/19 09:31 38.3 C H 92 H 92 H 110/33 L 04/27/19 07:54 36.7 C 95 H 24 144/83 H Pulse Ox 04/27/19 15:50 99 04/27/19 14:00 98 04/27/19 13:42 04/27/19 13:20 04/27/19 13:00 04/27/19 12:45 04/27/19 12:40 04/27/19 12:20 04/27/19 12:00 04/27/19 11:44 04/27/19 11:20 04/27/19 11:00 04/27/19 10:45 04/27/19 10:40 04/27/19 10:20 04/27/19 10:00 04/27/19 09:40 04/27/19 09:31 04/27/19 07:54 96 Laboratory Results 04/27/19 04/27/19 04/27/19 Range/Units 14:20 09:12 09:12 WBC 16.49 H (4.8-10.8) K/uL RBC 3.13 L (4.7-6.1) M/uL Hgb 10.2 L (14.0-18.0) g/dL Hct 31.2 L (42-52) % MCV 99.7 (80-100) fL MCH 32.6 (25-34) pg MCHC 32.7 (32-36) g/dL RDW Std Deviation 69.0 H (36.4-46.3) fL RDW Coeff of Jolanta 19.5 H (11.5-14.5) % Plt Count 142 (130-400) K/uL MPV 8.9 (7.4-10.4) fL Immature Gran % (Auto) 0.2 % Neut % (Auto) 88.4 % Lymph % (Auto) 5.1 % [place] % (Auto) 6.0 % Eos % (Auto) 0.1 % Baso % (Auto) 0.2 % Immature Gran # (Auto) 0.04 H (0.00-0.02) K/uL Neut # (Auto) 14.58 H (1.4-6.5) K/uL Lymph # (Auto) 0.84 L (1.2-3.4) K/uL [place] # (Auto) 0.99 H (0.11-0.59) K/uL Eos # (Auto) 0.01 (0-0.5) K/uL Baso # (Auto) 0.03 (0-0.2) K/uL Sodium (136-145) mmol/L Potassium (3.5-5.1) mmol/L Chloride (98-107) mmol/L Carbon Dioxide (21-32) mmol/L Anion Gap (3-11) BUN (7-18) mg/dl Creatinine (0.6-1.4) mg/dl Est Cr Clr Drug Dosing ml/min Est GFR ( Amer) Est GFR (Non-Af Amer) BUN/Creatinine Ratio (10-20) Glucose (70-99) mg/dl Lactate 1.7 (0.4-2.0) mmol/L Calcium (8.5-10.1) mg/dl Procalcitonin 2.14 H (0-0.5) ng/ml Hep Bs Antigen (Neg) Hep Bs Antibody Hep Bs Antibody, Quant (>or=10mIU/mL Immune) mIU/mL Hepatitis C Ab Screen (Neg) 04/27/19 04/27/19 04/26/19 Range/Units 09:12 05:45 16:20 WBC (4.8-10.8) K/uL RBC (4.7-6.1) M/uL Hgb (14.0-18.0) g/dL Hct (42-52) % MCV (80-100) fL MCH (25-34) pg MCHC (32-36) g/dL RDW Std Deviation (36.4-46.3) fL RDW Coeff of Jolanta (11.5-14.5) % Plt Count (130-400) K/uL MPV (7.4-10.4) fL Immature Gran % (Auto) % Neut % (Auto) % Lymph % (Auto) % [place] % (Auto) % Eos % (Auto) % Baso % (Auto) % Immature Gran # (Auto) (0.00-0.02) K/uL Neut # (Auto) (1.4-6.5) K/uL Lymph # (Auto) (1.2-3.4) K/uL [place] # (Auto) (0.11-0.59) K/uL Eos # (Auto) (0-0.5) K/uL Baso # (Auto) (0-0.2) K/uL Sodium 135 L (136-145) mmol/L Potassium 5.0 (3.5-5.1) mmol/L Chloride 93 L (98-107) mmol/L Carbon Dioxide 31 (21-32) mmol/L Anion Gap 11.0 (3-11) BUN 37 H (7-18) mg/dl Creatinine 8.29 H* D (0.6-1.4) mg/dl Est Cr Clr Drug Dosing 10.3 ml/min Est GFR ( Amer) 6.7 Est GFR (Non-Af Amer) 5.8 BUN/Creatinine Ratio 4.5 L (10-20) Glucose 99 (70-99) mg/dl Lactate (0.4-2.0) mmol/L Calcium 8.6 (8.5-10.1) mg/dl Procalcitonin (0-0.5) ng/ml Hep Bs Antigen Neg (Neg) Hep Bs Antibody Immune Hep Bs Antibody, Quant 182.74 (>or=10mIU/mL Immune) mIU/mL Hepatitis C Ab Screen Neg (Neg) PG Care Time/CCT Total # of Minutes Spent Total Time Spent with Patient: Total time spent is greater than 50% in coordination of care (as documented) at patient's floor/unit and/or counseling patient: (1) Atrial fibrillation Atrial fibrillation type: paroxysmal Qualified Code(s): I48.0 - Paroxysmal atrial fibrillation (2) Nausea & vomiting Vomiting Intractability: unspecified Vomiting type: unspecified Qualified Code(s): R11.2 - Nausea with vomiting, unspecified
--- NOTE | 2019-04-27 19:29 | CT Scan Report ---
CT SCAN OF THE ABDOMEN AND PELVIS WITHOUT CONTRAST CLINICAL HISTORY: abdominal pain, vomiting, fever COMPARISON STUDY: September 26, 2018 TECHNIQUE: CT scan of the abdomen and pelvis was performed from the lung bases to the proximal femurs . Images are reviewed in the axial, sagittal, and coronal planes. IV contrast was not administered fo r this examination. A dose lowering technique was utilized adhering to the principles of ALARA. CT DOSE: 1003.77 mGy.cm FINDINGS: Lower chest: There is chronic pleural thickening and basilar atelectatic change. Liver: There is extensive left lobe portal venous gas. No focal hepatic masses are visualized on this noncontrast study. Gallbladder: Surgically absent Spleen: Mildly enlarged measuring 12.4 cm Pancreas: Unremarkable. Adrenal glands: Unremarkable. Kidneys: The kidneys are atrophic. Since the prior study, the patient has developed bilateral hydrone phrosis. There are bilateral renal cysts. No ureteral calculi are visualized. Bowel: There are no transition zones to indicate bowel obstruction. There is bowel wall thickening in volving the sigmoid colon with infiltration of the pericolonic fat. The findings are indicative of a nonspecific colitis. This does not appear to represent acute diverticulitis. There are multiple foci mesenteric venous gas. The appendix appears normal. Peritoneum: There is no intraperitoneal free air or abdominal ascites. There are bilateral fat-contai hedy inguinal hernias left larger than right. Vasculature: There is an aortobiiliac stent present. Adenopathy: None. Pelvic viscera: The bladder, and pelvic viscera are unremarkable. Skeletal structures: There are advanced degenerative changes of the lumbar spine with evidence of sev ere spinal stenosis. There is an old superior endplate L2 compression deformity. IMPRESSION: 1. Mild distention and bowel wall thickening involving the sigmoid colon with infiltration of the per icolonic fat. The findings are indicative of a nonspecific colitis. There is extensive mesenteric zandra ous gas present as well as portal venous gas. Surgical consultation is recommended. 2. No evidence of bowel obstruction. No evidence of free air 3. Normal appendix 4. Atrophic kidneys. Interval development of bilateral hydronephrosis and hydroureter. No obstructing calculi identified 5. Advanced degenerative changes within the spine with severe lumbar spinal stenosis Electronically signed by: Adonay Winston M.D. 04/27/2019 7:27 PM
[2019-04-27 21:16] LABS: Albumin Globulin Ratio 0.8 (0.9-2); Albumin Level 2.7 gm/dl (3.4-5.0); BUN Creatinine Ratio 3.5 (10-20); Bilirubin,Total 1.2 mg/dl (0.2-1); Calcium 8.6 mg/dl (8.5-10.1); Creatinine Clr Calc Pharmacy 18.3 ml/min; Est GFR (African American) 13.4; Est GFR (Non-African American) 11.6; Globulin 3.5 gm/dl (2.5-4.0); Potassium 4.1 mmol/L (3.5-5.1); Total Protein 6.2 gm/dl (6.4-8.2)
[2019-04-27] MEDS: PROMETHAZINE HCL 12.5 MG in SODIUM CHLORIDE 0.9% 50 ML IV PRN (23:10)
--- NOTE | 2019-04-27 23:50 | Surgery Consultation ---
Date of Consultation April 27, 2019 Assessment & Plan (1) Abdominal pain: This patient has abdominal pain. He has severe peripheral vascular disease. CT scan findings are again noted of portal venous gas as well as mesenteric venous gas. At the request of the patient I contacted his sister who helps make his medical decisions. I explained to both of them that this finding is most consistent with ischemic bowel and I explained that entity. I explained that if there is ischemic bowel that becomes gangrenous and perforated it is likely that he will not survive the peritonitis and infection that would result. They are also aware however that he is at extremely high risk for general an esthesia and an operative procedure. He has a history of orthostasis as well as hypotension especially during his dialysis. It was reported that his blood pressure despite medication to support it felt to systolics in the 60s during dialysis most recently. It is their decision to treat him conservatively with antibiotics for now. We will follow him with serial exams and make further decisions as his condition changes. History of Present Illness Requesting Physician: Fatuma Araya MD Attending Physician: Fatuma Araya MD History of Present Illness I have been asked by Dr. Araya to see this 73-year-old male who was originally admitted for percutaneous angioplasty of the peroneal artery for diagnosis of osteomyelitis in his left foot. The patient has significant peripheral vascular disease and has undergone multiple procedures including a AAA and multiple lower extremity revascularization procedures. He has had a CVA. He has had coronary artery bypass grafting. Today he was noted to have a mildly distended abdomen. He has nausea. He was unable to maintain with clear liquids. The patient is a very poor historian. He thinks his abdominal pain is been going on for about [address] scan of the abdomen was performed which demonstrated thickening of the sigmoid colon with some josephine-colonic inflammation. There was portal venous air as well as venous air within the mesentery. At the present time he has only mild abdominal pain in the lower abdomen. He has been having bowel movements although they have been very loose. There is no melena or hematochezia. Allergies Allergy/AdvReac Type Severity Reaction Status Date / Time tramadol Allergy Unknown dizziness;a Verified 04/26/19 05:59 nxiety;sob gabapentin Allergy Unknown Verified 04/26/19 11:26 oxycodone AdvReac Severe DELIRIUM Verified 04/26/19 05:59 Home Medications Home Medications Medication Instructions Recorded Confirmed Type Breo Ellipta 1 inh INHALATION DAILY 08/23/18 04/26/19 History albuterol sulfate 2 puff INHALATION Q6H PRN 08/23/18 04/26/19 History amiodarone 200 mg PO Q OTHER DAY 08/23/18 04/26/19 History aspirin [Aspir-Low] 81 mg PO QAM 08/23/18 04/26/19 History atorvastatin 40 mg PO HS 08/23/18 04/26/19 History calcium acetate 667 mg PO TIDM 08/23/18 04/26/19 History cyanocobalamin (vitamin B-12) 1,000 mcg PO 3XWK 08/23/18 04/26/19 History paroxetine HCl 20 mg PO QAM 08/23/18 04/26/19 History Spiriva with HandiHaler 1 cap INHALATION DAILY 08/30/18 04/26/19 History azithromycin 500 mg PO DIRECTED PRN 08/30/18 04/26/19 History omeprazole 20 mg PO DAILY 08/30/18 04/26/19 History lidocaine 4 % topical patch 1 patch TOP TID PRN 02/10/19 04/26/19 History pregabalin 75 mg capsule 75 mg PO DAILY cap 02/10/19 04/26/19 History polyethylene glycol 3350 17 8.5 gm PO DAILY PRN #119 gm 03/30/19 04/26/19 Rx gram/dose oral powder cefadroxil 500 mg capsule 500 mg PO DAILY cap 03/31/19 04/26/19 History famotidine 20 mg tablet 20 mg PO 3XWK tab 03/31/19 04/26/19 History ipratropium-albuterol 0.5 mg-3 3 ml INHALATION Q6H PRN ml 03/31/19 04/26/19 History mg(2.5 mg base)/3 mL nebulization soln levothyroxine 75 mcg capsule 75 mcg PO HS cap 03/31/19 04/26/19 History midodrine 5 mg tablet 5 mg PO TID tab 03/31/19 04/26/19 History saliva substitute combo no.9 10 ml PO DAILY PRN ml 03/31/19 04/26/19 History mouthwash triamcinolone acetonide 0.1 % 1 appln TOP BID #453.6 gm 03/31/19 04/26/19 Rx topical cream clopidogrel [Plavix] 75 mg PO DAILY #30 tab 04/26/19 04/26/19 Rx midodrine 5 mg PO .QID UD 04/26/19 04/26/19 History Patient History Medical History Gangrene (Resolved) Atrial fibrillation (Resolved) AAA (abdominal aortic aneurysm) (Resolved) Anxiety (Chronic) Chronic GERD (Chronic) Myocardial infarct, old (Chronic) 2010 CVA (cerebral vascular accident) (Chronic) "NO RESIDUAL EFFECTS" PER RECORDS GERD (gastroesophageal reflux disease) (Chronic) Peripheral vascular disease (Chronic) H/O: gout (Chronic) Anxiety (Chronic) Depression (Chronic) Atrial fibrillation (Chronic) PAROXYSMAL- ON ASA PER RECORDS Gangrene of toe (Acute) right toes REASON FOR PROCEDURE CAD (coronary artery disease) (Chronic) S/P CABG X2 (DURING MVR) 2010 Valvular disease (Chronic) S/P MVR (2010); ?AVR PER RECORDS Acute osteomyelitis of foot (Acute) AV fistula (Chronic) right arm ESRD (end stage renal disease) Encounter for central line placement (Acute) Surgical History Hx of CABG (Acute) S/P CABG X2 (DURING MVR) 2010 S/P cholecystectomy (Resolved) H/O abdominal aortic aneurysm repair (Resolved) 2011 H/O mitral valve repair (Resolved) 2010; ?AVR PER RECORDS H/O [id number] bypass (Resolved) 2012 Difficult intubation (Chronic) B/L Anteriogram, Right femoral to anterior tibial cadaver vein bypass= 08/06/18= Grade view 4, MAC 3 --> Glidescope #3, ETT 7.5 at [facility] Family History Mother Essential hypertension Father , age 76 Myocardial infarction Social History Preferred Language: Bangladeshi Communication Ability: Effective Visual Impairment: No Limitations Beliefs That Will Affect Care: None marital status: / marital status details: 1 daughter Current Living Situation: Family Current Living Situation Comment: lives with his sister 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 Feels Safe at Home: Yes Smoking Status: Former smoker Tobacco Type: cigars Second Hand Exposure: No Hx Alcohol Use: Yes Hx Substance Use: No Physical Exam Constitutional: no acute distress Neck: trachea midline Respiratory: normal respiratory effort, lungs clear to auscultation Cardiovascular: Rate/Rhythm: regular rate and regular rhythm Gastrointestinal (Abdomen): Inspection/Auscultation: + abdomen distended (Mild) Percussion/Palpation: + abdomen tender (Mild tenderness in the lower abdomen without evidence of peritonitis) and abdomen soft Skin: no rashes, warm and dry Lymphatic: no cervical lymphadenopathy Results & Data Vital Signs (Past 12 Hours) Vital Signs Temp Pulse Pulse Resp BP BP Pulse Ox 04/27/19 22:56 37.1 C 95 H 20 110/50 L 98 04/27/19 19:41 37.1 C 96 H 20 111/52 L 95 04/27/19 15:50 36.9 C 91 H 20 111/58 L 99 04/27/19 14:00 36.4 C L 92 H 20 95/67 L 98 04/27/19 13:42 36.8 C 86 86 95/50 L 95/50 L 04/27/19 13:20 88 79/39 L 04/27/19 13:00 90 79/41 L 04/27/19 12:45 80/41 L 04/27/19 12:40 91 H 66/30 L 04/27/19 12:20 94 H 77/44 L 04/27/19 12:00 94 H 83/44 L Laboratory Results 04/27/19 04/27/19 04/27/19 Range/Units 20:34 20:34 14:20 WBC (4.8-10.8) K/uL RBC (4.7-6.1) M/uL Hgb (14.0-18.0) g/dL Hct (42-52) % MCV (80-100) fL MCH (25-34) pg MCHC (32-36) g/dL RDW Std Deviation (36.4-46.3) fL RDW Coeff of Jolanta (11.5-14.5) % Plt Count (130-400) K/uL MPV (7.4-10.4) fL Immature Gran % (Auto) % Neut % (Auto) % Lymph % (Auto) % [place] % (Auto) % Eos % (Auto) % Baso % (Auto) % Immature Gran # (Auto) (0.00-0.02) K/uL Neut # (Auto) (1.4-6.5) K/uL Lymph # (Auto) (1.2-3.4) K/uL [place] # (Auto) (0.11-0.59) K/uL Eos # (Auto) (0-0.5) K/uL Baso # (Auto) (0-0.2) K/uL Sodium 135 L (136-145) mmol/L Potassium 4.1 D (3.5-5.1) mmol/L Chloride 97 L (98-107) mmol/L Carbon Dioxide 29 (21-32) mmol/L Anion Gap 10.0 (3-11) BUN 16 D (7-18) mg/dl Creatinine 4.66 H* D (0.6-1.4) mg/dl Est Cr Clr Drug Dosing 18.3 ml/min Est GFR ( Amer) 13.4 Est GFR (Non-Af Amer) 11.6 BUN/Creatinine Ratio 3.5 L (10-20) Glucose 118 H (70-99) mg/dl Lactate 3.0 H* 1.7 (0.4-2.0) mmol/L Calcium 8.6 (8.5-10.1) mg/dl Total Bilirubin 1.2 H D (0.2-1) mg/dl AST 20 (15-37) U/L ALT 9 L (12-78) U/L Alkaline Phosphatase 139 H (45-117) U/L Total Protein 6.2 L (6.4-8.2) gm/dl Albumin 2.7 L (3.4-5.0) gm/dl Globulin 3.5 (2.5-4.0) gm/dl Albumin/Globulin Ratio 0.8 L (0.9-2) Procalcitonin (0-0.5) ng/ml Hep Bs Antigen (Neg) Hep Bs Antibody Hep Bs Antibody, Quant (>or=10mIU/mL Immune) mIU/mL 04/27/19 04/27/19 04/27/19 Range/Units 09:12 09:12 09:12 WBC 16.49 H (4.8-10.8) K/uL RBC 3.13 L (4.7-6.1) M/uL Hgb 10.2 L (14.0-18.0) g/dL Hct 31.2 L (42-52) % MCV 99.7 (80-100) fL MCH 32.6 (25-34) pg MCHC 32.7 (32-36) g/dL RDW Std Deviation 69.0 H (36.4-46.3) fL RDW Coeff of Jolanta 19.5 H (11.5-14.5) % Plt Count 142 (130-400) K/uL MPV 8.9 (7.4-10.4) fL Immature Gran % (Auto) 0.2 % Neut % (Auto) 88.4 % Lymph % (Auto) 5.1 % [place] % (Auto) 6.0 % Eos % (Auto) 0.1 % Baso % (Auto) 0.2 % Immature Gran # (Auto) 0.04 H (0.00-0.02) K/uL Neut # (Auto) 14.58 H (1.4-6.5) K/uL Lymph # (Auto) 0.84 L (1.2-3.4) K/uL [place] # (Auto) 0.99 H (0.11-0.59) K/uL Eos # (Auto) 0.01 (0-0.5) K/uL Baso # (Auto) 0.03 (0-0.2) K/uL Sodium (136-145) mmol/L Potassium (3.5-5.1) mmol/L Chloride (98-107) mmol/L Carbon Dioxide (21-32) mmol/L Anion Gap (3-11) BUN (7-18) mg/dl Creatinine (0.6-1.4) mg/dl Est Cr Clr Drug Dosing ml/min Est GFR ( Amer) Est GFR (Non-Af Amer) BUN/Creatinine Ratio (10-20) Glucose (70-99) mg/dl Lactate (0.4-2.0) mmol/L Calcium (8.5-10.1) mg/dl Total Bilirubin (0.2-1) mg/dl AST (15-37) U/L ALT (12-78) U/L Alkaline Phosphatase (45-117) U/L Total Protein (6.4-8.2) gm/dl Albumin (3.4-5.0) gm/dl Globulin (2.5-4.0) gm/dl Albumin/Globulin Ratio (0.9-2) Procalcitonin 2.14 H (0-0.5) ng/ml Hep Bs Antigen Neg (Neg) Hep Bs Antibody Immune Hep Bs Antibody, Quant 182.74 (>or=10mIU/mL Immune) mIU/mL 04/27/19 Range/Units 05:45 WBC (4.8-10.8) K/uL RBC (4.7-6.1) M/uL Hgb (14.0-18.0) g/dL Hct (42-52) % MCV (80-100) fL MCH (25-34) pg MCHC (32-36) g/dL RDW Std Deviation (36.4-46.3) fL RDW Coeff of Jolanta (11.5-14.5) % Plt Count (130-400) K/uL MPV (7.4-10.4) fL Immature Gran % (Auto) % Neut % (Auto) % Lymph % (Auto) % [place] % (Auto) % Eos % (Auto) % Baso % (Auto) % Immature Gran # (Auto) (0.00-0.02) K/uL Neut # (Auto) (1.4-6.5) K/uL Lymph # (Auto) (1.2-3.4) K/uL [place] # (Auto) (0.11-0.59) K/uL Eos # (Auto) (0-0.5) K/uL Baso # (Auto) (0-0.2) K/uL Sodium 135 L (136-145) mmol/L Potassium 5.0 (3.5-5.1) mmol/L Chloride 93 L (98-107) mmol/L Carbon Dioxide 31 (21-32) mmol/L Anion Gap 11.0 (3-11) BUN 37 H (7-18) mg/dl Creatinine 8.29 H* D (0.6-1.4) mg/dl Est Cr Clr Drug Dosing 10.3 ml/min Est GFR ( Amer) 6.7 Est GFR (Non-Af Amer) 5.8 BUN/Creatinine Ratio 4.5 L (10-20) Glucose 99 (70-99) mg/dl Lactate (0.4-2.0) mmol/L Calcium 8.6 (8.5-10.1) mg/dl Total Bilirubin (0.2-1) mg/dl AST (15-37) U/L ALT (12-78) U/L Alkaline Phosphatase (45-117) U/L Total Protein (6.4-8.2) gm/dl Albumin (3.4-5.0) gm/dl Globulin (2.5-4.0) gm/dl Albumin/Globulin Ratio (0.9-2) Procalcitonin (0-0.5) ng/ml Hep Bs Antigen (Neg) Hep Bs Antibody Hep Bs Antibody, Quant (>or=10mIU/mL Immune) mIU/mL Diagnostic Findings CT SCAN OF THE ABDOMEN AND PELVIS WITHOUT CONTRAST CLINICAL HISTORY: abdominal pain, vomiting, fever COMPARISON STUDY: September 26, 2018 TECHNIQUE: CT scan of the abdomen and pelvis was performed from the lung bases to the proximal femurs. Images are reviewed in the axial, sagittal, and coronal planes. IV contrast was not administered for this examination. A dose lowering technique was utilized adhering to the principles of ALARA. CT DOSE: 1003.77 mGy.cm FINDINGS: Lower chest: There is chronic pleural thickening and basilar atelectatic change. Liver: There is extensive left lobe portal venous gas. No focal hepatic masses are visualized on this noncontrast study. Gallbladder: Surgically absent Spleen: Mildly enlarged measuring 12.4 cm Pancreas: Unremarkable. Adrenal glands: Unremarkable. Kidneys: The kidneys are atrophic. Since the prior study, the patient has developed bilateral hydronephrosis. There are bilateral renal cysts. No ureteral calculi are visualized. Bowel: There are no transition zones to indicate bowel obstruction. There is bowel wall thickening involving the sigmoid colon with infiltration of the pericolonic fat. The findings are indicative of a nonspecific colitis. This does not appear to represent acute diverticulitis. There are multiple foci mesenteric venous gas. The appendix appears normal. Peritoneum: There is no intraperitoneal free air or abdominal ascites. There are bilateral fat-containing inguinal hernias left larger than right. Vasculature: There is an aortobiiliac stent present. Adenopathy: None. Pelvic viscera: The bladder, and pelvic viscera are unremarkable. Skeletal structures: There are advanced degenerative changes of the lumbar spine with evidence of severe spinal stenosis. There is an old superior endplate L2 compression deformity. IMPRESSION: 1. Mild distention and bowel wall thickening involving the sigmoid colon with infiltration of the pericolonic fat. The findings are indicative of a nonspecific colitis. There is extensive mesenteric venous gas present as well as portal venous gas. Surgical consultation is recommended. 2. No evidence of bowel obstruction. No evidence of free air 3. Normal appendix 4. Atrophic kidneys. Interval development of bilateral hydronephrosis and hydroureter. No obstructing calculi identified 5. Advanced degenerative changes within the spine with severe lumbar spinal stenosis
[2019-04-28] MEDS: PIPERACILLIN/TAZOBACTAM 3.375 GM in DEXTROSE 5% 100 ML IV SCH ×2 (05:17→19:33)
[2019-04-28 06:35] LABS: Hematocrit (blood only) 26.3 % (42-52); Hemoglobin 8.6 g/dL (14.0-18.0); Mean Corpuscular Hgb Conc 32.7 g/dL (32-36); Mean Corpuscular Volume 97.4 fL (80-100); Mean Platelet Volume 8.9 fL (7.4-10.4); Platelet Count 117 K/uL (130-400); RDW Coefficient of Variation 19.4 % (11.5-14.5); White Blood Count 19.31 K/uL (4.8-10.8)
[2019-04-28] MEDS ORDERED: MIDODRINE HCL 2.5 MG TAB PO SCH (07:00)
[2019-04-28 07:26] LABS: BUN Creatinine Ratio 4.5 (10-20); Calcium 8.6 mg/dl (8.5-10.1); Creatinine Clr Calc Pharmacy 14.8 ml/min; Est GFR (African American) 10.4; Potassium 4.1 mmol/L (3.5-5.1)
[2019-04-28] MEDS: CALCIUM ACETATE 667 MG CAP PO SCH ×2 (08:32→12:32)
[2019-04-28] MEDS: ASPIRIN 81 MG ECTAB PO SCH (08:33)
[2019-04-28] MEDS: PARoxetine HCl 20 MG TAB PO SCH (08:34)
[2019-04-28] MEDS: TIOTROPIUM BROMIDE 5 PUFF/90 MCG INH INH SCH (08:34)
[2019-04-28] MEDS: PANTOprazole 40 MG TAB PO SCH (08:34)
[2019-04-28] MEDS: LEVOTHYROXINE SODIUM 37.5 MCG in SYRINGE 0 ML IV SCH (08:37)
[2019-04-28] MEDS: PREGABALIN 75 MG CAP PO SCH (08:37)
[2019-04-28] MEDS ORDERED: CYANOCOBALAMIN 500 MCG TABLET (VITAMIN B-12) PO SCH (09:00)
[2019-04-28] MEDS ORDERED: CARVEDILOL 6.25 MG TAB PO SCH (09:00)
[2019-04-28] MEDS: PROMETHAZINE HCL 12.5 MG in SODIUM CHLORIDE 0.9% 50 ML IV PRN (09:48)
--- NOTE | 2019-04-28 10:35 | Surgery Progress Note ---
Date of Service April 28, 2019 Assessment & Plan (1) Abdominal pain: Subjectively is unchanged. White count is increased to 19,000 Lactate is decreased to 1.7 Exam remains benign Hemodynamically stable As per discussion with patient and sister last night we will continue with conservative measures Discussed patient with Dr. Araya this morning. Plan for CT angiogram later today. Continue supportive measures Subjective Stated that he had some abdominal discomfort but it was generalized Still has some nausea Has not vomited No melena or hematochezia Physical Exam Constitutional: no acute distress Gastrointestinal (Abdomen): Inspection/Auscultation: + hypoactive bowel sounds Percussion/Palpation: + abdomen tender (Mild in the lower midline) and abdomen soft Results & Data Vital Signs (Past 12 Hours) Vital Signs Temp Pulse Pulse Resp BP Pulse Ox 04/28/19 06:58 36.8 C 80 20 150/68 H 97 04/28/19 02:23 36.7 C 95 H 18 141/68 H 95 04/27/19 22:56 37.1 C 95 H 20 110/50 L 98 Laboratory Results 04/28/19 04/28/19 04/28/19 Range/Units 06:52 06:52 06:02 WBC (4.8-10.8) K/uL RBC (4.7-6.1) M/uL Hgb (14.0-18.0) g/dL Hct (42-52) % MCV (80-100) fL MCH (25-34) pg MCHC (32-36) g/dL RDW Std Deviation (36.4-46.3) fL RDW Coeff of Jolanta (11.5-14.5) % Plt Count (130-400) K/uL MPV (7.4-10.4) fL Immature Gran % (Auto) % Neut % (Auto) % Lymph % (Auto) % [place] % (Auto) % Eos % (Auto) % Baso % (Auto) % Immature Gran # (Auto) (0.00-0.02) K/uL Neut # (Auto) (1.4-6.5) K/uL Lymph # (Auto) (1.2-3.4) K/uL [place] # (Auto) (0.11-0.59) K/uL Eos # (Auto) (0-0.5) K/uL Baso # (Auto) (0-0.2) K/uL Sodium (136-145) mmol/L Potassium (3.5-5.1) mmol/L Chloride (98-107) mmol/L Carbon Dioxide (21-32) mmol/L Anion Gap (3-11) BUN (7-18) mg/dl Creatinine (0.6-1.4) mg/dl Est Cr Clr Drug Dosing ml/min Est GFR ( Amer) Est GFR (Non-Af Amer) BUN/Creatinine Ratio (10-20) Glucose (70-99) mg/dl Lactate 1.3 (0.4-2.0) mmol/L Calcium (8.5-10.1) mg/dl Total Bilirubin (0.2-1) mg/dl AST (15-37) U/L ALT (12-78) U/L Alkaline Phosphatase (45-117) U/L Total Protein (6.4-8.2) gm/dl Albumin (3.4-5.0) gm/dl Globulin (2.5-4.0) gm/dl Albumin/Globulin Ratio (0.9-2) Procalcitonin 35.18 H (0-0.5) ng/ml Nasal Screen MRSA (PCR) (Negative) Random Vancomycin 26.2 mcg/ml 04/28/19 04/28/19 04/28/19 Range/Units 06:02 06:02 05:40 WBC 19.31 H (4.8-10.8) K/uL RBC 2.70 L (4.7-6.1) M/uL Hgb 8.6 L (14.0-18.0) g/dL Hct 26.3 L (42-52) % MCV 97.4 (80-100) fL MCH 31.9 (25-34) pg MCHC 32.7 (32-36) g/dL RDW Std Deviation 68.0 H (36.4-46.3) fL RDW Coeff of Jolanta 19.4 H (11.5-14.5) % Plt Count 117 L (130-400) K/uL MPV 8.9 (7.4-10.4) fL Immature Gran % (Auto) % Neut % (Auto) % Lymph % (Auto) % [place] % (Auto) % Eos % (Auto) % Baso % (Auto) % Immature Gran # (Auto) (0.00-0.02) K/uL Neut # (Auto) (1.4-6.5) K/uL Lymph # (Auto) (1.2-3.4) K/uL [place] # (Auto) (0.11-0.59) K/uL Eos # (Auto) (0-0.5) K/uL Baso # (Auto) (0-0.2) K/uL Sodium 135 L (136-145) mmol/L Potassium 4.1 (3.5-5.1) mmol/L Chloride 97 L (98-107) mmol/L Carbon Dioxide 29 (21-32) mmol/L Anion Gap 9.0 (3-11) BUN 26 H D (7-18) mg/dl Creatinine 5.76 H* D (0.6-1.4) mg/dl Est Cr Clr Drug Dosing 14.8 ml/min Est GFR ( Amer) 10.4 Est GFR (Non-Af Amer) 9.0 BUN/Creatinine Ratio 4.5 L (10-20) Glucose 124 H (70-99) mg/dl Lactate (0.4-2.0) mmol/L Calcium 8.6 (8.5-10.1) mg/dl Total Bilirubin (0.2-1) mg/dl AST (15-37) U/L ALT (12-78) U/L Alkaline Phosphatase (45-117) U/L Total Protein (6.4-8.2) gm/dl Albumin (3.4-5.0) gm/dl Globulin (2.5-4.0) gm/dl Albumin/Globulin Ratio (0.9-2) Procalcitonin (0-0.5) ng/ml Nasal Screen MRSA (PCR) Negative (Negative) Random Vancomycin mcg/ml 04/27/19 04/27/19 04/27/19 Range/Units 20:34 20:34 14:20 WBC (4.8-10.8) K/uL RBC (4.7-6.1) M/uL Hgb (14.0-18.0) g/dL Hct (42-52) % MCV (80-100) fL MCH (25-34) pg MCHC (32-36) g/dL RDW Std Deviation (36.4-46.3) fL RDW Coeff of Jolanta (11.5-14.5) % Plt Count (130-400) K/uL MPV (7.4-10.4) fL Immature Gran % (Auto) % Neut % (Auto) % Lymph % (Auto) % [place] % (Auto) % Eos % (Auto) % Baso % (Auto) % Immature Gran # (Auto) (0.00-0.02) K/uL Neut # (Auto) (1.4-6.5) K/uL Lymph # (Auto) (1.2-3.4) K/uL [place] # (Auto) (0.11-0.59) K/uL Eos # (Auto) (0-0.5) K/uL Baso # (Auto) (0-0.2) K/uL Sodium 135 L (136-145) mmol/L Potassium 4.1 D (3.5-5.1) mmol/L Chloride 97 L (98-107) mmol/L Carbon Dioxide 29 (21-32) mmol/L Anion Gap 10.0 (3-11) BUN 16 D (7-18) mg/dl Creatinine 4.66 H* D (0.6-1.4) mg/dl Est Cr Clr Drug Dosing 18.3 ml/min Est GFR ( Amer) 13.4 Est GFR (Non-Af Amer) 11.6 BUN/Creatinine Ratio 3.5 L (10-20) Glucose 118 H (70-99) mg/dl Lactate 3.0 H* 1.7 (0.4-2.0) mmol/L Calcium 8.6 (8.5-10.1) mg/dl Total Bilirubin 1.2 H D (0.2-1) mg/dl AST 20 (15-37) U/L ALT 9 L (12-78) U/L Alkaline Phosphatase 139 H (45-117) U/L Total Protein 6.2 L (6.4-8.2) gm/dl Albumin 2.7 L (3.4-5.0) gm/dl Globulin 3.5 (2.5-4.0) gm/dl Albumin/Globulin Ratio 0.8 L (0.9-2) Procalcitonin (0-0.5) ng/ml Nasal Screen MRSA (PCR) (Negative) Random Vancomycin mcg/ml 04/27/19 04/27/19 Range/Units 09:12 09:12 WBC 16.49 H (4.8-10.8) K/uL RBC 3.13 L (4.7-6.1) M/uL Hgb 10.2 L (14.0-18.0) g/dL Hct 31.2 L (42-52) % MCV 99.7 (80-100) fL MCH 32.6 (25-34) pg MCHC 32.7 (32-36) g/dL RDW Std Deviation 69.0 H (36.4-46.3) fL RDW Coeff of Jolanta 19.5 H (11.5-14.5) % Plt Count 142 (130-400) K/uL MPV 8.9 (7.4-10.4) fL Immature Gran % (Auto) 0.2 % Neut % (Auto) 88.4 % Lymph % (Auto) 5.1 % [place] % (Auto) 6.0 % Eos % (Auto) 0.1 % Baso % (Auto) 0.2 % Immature Gran # (Auto) 0.04 H (0.00-0.02) K/uL Neut # (Auto) 14.58 H (1.4-6.5) K/uL Lymph # (Auto) 0.84 L (1.2-3.4) K/uL [place] # (Auto) 0.99 H (0.11-0.59) K/uL Eos # (Auto) 0.01 (0-0.5) K/uL Baso # (Auto) 0.03 (0-0.2) K/uL Sodium (136-145) mmol/L Potassium (3.5-5.1) mmol/L Chloride (98-107) mmol/L Carbon Dioxide (21-32) mmol/L Anion Gap (3-11) BUN (7-18) mg/dl Creatinine (0.6-1.4) mg/dl Est Cr Clr Drug Dosing ml/min Est GFR ( Amer) Est GFR (Non-Af Amer) BUN/Creatinine Ratio (10-20) Glucose (70-99) mg/dl Lactate (0.4-2.0) mmol/L Calcium (8.5-10.1) mg/dl Total Bilirubin (0.2-1) mg/dl AST (15-37) U/L ALT (12-78) U/L Alkaline Phosphatase (45-117) U/L Total Protein (6.4-8.2) gm/dl Albumin (3.4-5.0) gm/dl Globulin (2.5-4.0) gm/dl Albumin/Globulin Ratio (0.9-2) Procalcitonin 2.14 H (0-0.5) ng/ml Nasal Screen MRSA (PCR) (Negative) Random Vancomycin mcg/ml
[2019-04-28] MEDS ORDERED: OPTIRAY 320 125ml IV PRN (12:13)
--- NOTE | 2019-04-28 12:39 | CT Scan Report ---
CT angio abdomen pelvis w con CLINICAL HISTORY: 73 years-old Male with ischemic bowel,assess for mesenteric stenosis acute bowel ischemia. Clinical concern for thrombus or occlusion of the mesenteric vessels. COMPARISON STUDY: ET abdomen and pelvis 04/27/2019 TECHNIQUE: Following the IV administration of 119 cc of Optiray 320, CT angiogram of the abdomen and pelvis was performed from the lung bases the proximal femora. Images are reviewed in the axial, sagit jamie, and coronal planes. 3-D MIPS images are created and assessed. IV contrast was administered witho ut complication. All measurements were obtained according to NASCET criteria. A dose lowering techniq ue was utilized adhering to the principles of ALARA. CT DOSE: 996.86 mGy.cm FINDINGS: CTA: Moderate cardiomegaly. Coronary arterial calcifications are noted. Mitral valve prosthesis. Severe mi xed plaque formation of the abdominal aorta with extensive vascular calcifications of the abdomen and pelvis. Patent aortobiiliac stent graft with fusiform dilation of the bilateral common iliac arterie s. Bilateral common, and external iliac arteries, common femoral and imaged superficial femoral arter ies also appear patent. Bilateral internal iliac arteries appear patent. There is approximately 50% luminal narrowing at the origin of the celiac trunk secondary to atheromat ous plaque. 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 E xtensive mixed plaque formation of the superior mesenteric artery without occlusion identified. High- grade stenosis about a branch of the superior mesenteric artery is noted on image 212 series 3. There is apparent occlusion about the proximal few centimeters of the inferior mesenteric artery with power nstitution of flow noted on image 244 series 3, which appears to be from collateral flow via the arc of Riolan. High-grade stenosis about the proximal right renal artery with approximately 50% stenosis about the proximal left renal artery. Left renal arterial stent graft noted. CT ABDOMEN/PELVIS: Chronic right-sided pleural thickening with dependent right basilar consolidation suggestive of atele ctasis/scarring. No pneumatosis. There is decreased portal venous gas with decreased mesenteric venou s gas. Prior cholecystectomy is likely postsurgical biliary ductal dilation. Liver is otherwise unrem arkable. Indeterminate hypodense 1.2 cm lesion of the inferior right hepatic lobe. Trace perihepatic ascites. Spleen, pancreas and adrenal glands are unremarkable. Atrophic morphology of the bilateral kidneys, left greater than right with bilateral renal cysts. 9 m m proteinaceous or hemorrhagic cyst of the inferior pole right kidney. Moderate bilateral hydroureter onephrosis without obstructing calculus or lesion. Partial distention the bladder with wall thickenin g and trabeculation. Prostamegaly. Trace abdominopelvic ascites. No bowel obstruction. Wall thickenin g with surrounding pericolonic stranding about the sigmoid: Redemonstrated with additional extensive wall thickening and pericolonic stranding about the ascending colon, hepatic flexure, proximal and mi d transverse colon which has progressed from comparison. Normal appendix. Tiny fat filled periumbilic al hernia. Degenerative changes of the spine, pelvis and hips with multilevel central canal narrowing of the lumbar spine redemonstrated. Unchanged L2 compression deformity. IMPRESSION: 1. Progressive bowel wall thickening with pericolonic stranding involves the ascending colon, hepatic flexure and transverse colon with additional less extensive wall thickening again noted throughout t he sigmoid colon. Decreased portal venous and mesenteric venous gas. Constellation of these findings is concerning for ischemic colitis. 2. Focal high-grade stenosis about a branch of the distal superior mesenteric artery about the mid me sentery. Occlusion of the proximal few centimeters of the TYESHA with collateral flow noted via the arc of Riolan. 3. Atrophic morphology of the bilateral kidneys, likely secondary to associated renal arterial stenos is. 4. Unchanged moderate bilateral hydroureteronephrosis without obstructing calculus or lesion identifi ed. Additionally, there is suggestion of chronic urinary bladder outlet obstruction with prostamegaly . 5. No bowel obstruction or pneumoperitoneum. 6. Additional findings as above. The above report was generated using voice recognition software. It may contain grammatical, syntax o r spelling errors. Electronically signed by: Oral Ford M.D. 04/28/2019 12:36 PM
--- NOTE | 2019-04-28 13:23 | Hospitalist Progress Note ---
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 Tan Presented with abd pain ongoing for about 1 week, N/V, persistent orthostatic hypotension contributing to ischemia Found to have ischemic colitis on CT on 04/27, lactate carlos enrique, spiked a fever, WBC count continues to rise, PCT continues to rise. No peritonitis at this point and pt and sister opted for conservative management initially with Zosyn, Vanco,serial abdominal exams Repeat CTA A/P on 04/28 with progressive ischemic colitis of ascending,hepatic flexure,transverse colon, and some in sigmoid colon Lactate back down and still no peritonitis but given progressive nature, pt now agreeable to colectomy as he is not likely to survive with conservative measures If suffered perforation and peritonitis, would likely not survive a surgery Appreciate Surgery management -plan for emergency surgery now -type and cross match blood-unfortunately he has had anti-E abs in the past and may need blood from [place] -will likely go to ICU post-op -will need close CV and renal monitoring given issues with h/o CAD with CABG, MV replacement, PAF, PAD, ESRD on HD -follow serial labs,CMP,CBC -keep NPO -start gentle IVFs with NS 50mLs/hr as is a HD patient He is at very high risk for perioperative morbidity and mortality but is accepting of this risk (2) Fever: Patient spiked a fever the day after admission on 04/27 With nausea and vomiting day before and left lower lobe infiltrate on chest x- ray, initially suspected aspiration pneumonia, howerv now with known ischemic colitis as above He has a worsening leukocytosis, procalcitonin is elevated further to 35, lactate is down to 1.7 from 3.0 -for OR now for emergent colectomy -follow BCxs-NGTD -cont Zosyn and vancomycin for Pulm and GI source -Acetaminophen as needed for fever -Follow CBC, procalcitonin in the morning (3) Aspiration pneumonia: Secondary to nausea and vomiting on the day of admission With left lower lobe infiltrate seen on chest x-ray, fever, leukocytosis, elevated procalcitonin which may well be from ischemic colitis rather than a true PNA -Treatment as above (4) Nausea & vomiting: Initially thought to be from orthostasis and severe constipation Now known to be from ischemic colitis -antiemetics prn -to OR today as above (5) Abdominal pain: secondary to ischemic colitis (6) Orthostatic hypotension: Continue midodrine, long-standing for years, recently had the dose increased to 5 mg 4 times daily on dialysis days Had blood pressure done in the 60s systolic with dialysis BPs are actually much improved now -continue to hold midodrine due to ischemic colitis but may need pressors after surgery (7) Atrial fibrillation: Remains in normal sinus rhythm here -is on amiodarone every other day but currently on hold -could give IV amiodarone if has issues with persistent Afib post-op -Follows with Dr. Araujo for cardiology -His Coreg was discontinued several weeks ago for low blood pressures Not on anticoagulation-unclear reason why -hold aspirin for surgery (8) Hx of CABG: Two-vessel CABG simultaneously with his MVR -hold po meds of aspirin, Plavix, statin -Not on beta-maxim due to hypotension as above (9) GERD (gastroesophageal reflux disease): -Continue omeprazole and Pepcid-change to IV post-op (10) Constipation: No bowel movement for 2 weeks prior to admission Had a multiple bowel movements on admission after bisacodyl suppository and Kayexalate (11) Hypothyroidism: TSH is stable -Continue levothyroxine IV (12) CAD (coronary artery disease): As above (13) ESRD (end stage renal disease) on dialysis: Appreciate nephrology consultation Had hemodialysis on 04/27 with removal of only 400 mL's of fluid -Follow BMP -Continue PhosLo once eating again (14) Sepsis: As above, due to ischemic colitis (15) Hyperkalemia: Potassium 5.8 on admission he was given calcium gluconate and Kayexalate. now improved -Follow BMP (16) Anemia of chronic disease: Hemoglobin stable at 10 but then dropped to 8.3 today, no signs of bleeding Follow CBC -type and cross, may need blood intraoperatively (17) DVT prophylaxis: Heparin subcu Disposition-to OR now and then likely to ICU post-op Subjective Pt still feeling terrible. +Nausea, no vomiting, +abd pain. Denies CP or SOB. Had CTA abd/pel which showed worsening colitis now in ascending,hepatic flexure, transverse, and some in sigmoid colon. Showed high grade stenosis in a distal branch of the SMA and 50% prox celiac artery trunk luminal narrowing from plaque, also with prox TYESHA occlusion with collaterals. Discussed case with Vascular Surgeon and with Gen Surgery. Pt reports he would want a surgery if it will give him a better chance of survival Review of Systems Review of Systems: All systems reviewed & are unremarkable except as noted in HPI & below Physical Exam Constitutional: + ill appearing and average body habitus Eyes: PERRL, conjunctivae normal, anicteric sclerae ENMT: Ears: no hearing impairment Mouth: + dry oral mucous membranes Neck: trachea midline, no thyromegaly Respiratory: normal respiratory effort, lungs clear to auscultation normal respiratory effort; no labored breathing Auscultation: + crackles (left base); no wheezes Cardiovascular: Rate/Rhythm: regular rate and regular rhythm Heart Sounds: no murmur Extremities: + AV fistula (RUE) Gastrointestinal (Abdomen): normal bowel sounds, soft, nontender, no hepatosplenomegaly Inspection/Auscultation: abdomen normal to inspection and + abdomen distended (mildly); + abnormal bowel sounds (High-pitched and hypoactive) Percussion/Palpation: + abdomen tender (in right side of abdomen and periumbilical regiowithout guarding or rebound); no guarding, abdomen not rigid and no abdominal mass Musculoskeletal: Extremities: extremities normal to inspection; no cyanosis and no clubbing Skin: no rashes, warm and dry Neurologic: moves all extremities and awake; no focal motor deficits Psychiatric: A+Ox3, euthymic affect Results & Data Vital Signs (Past 12 Hours) Vital Signs Temp Pulse Pulse Pulse Resp BP Pulse Ox 04/28/19 11:14 36.8 C 92 H 22 156/86 H 94 04/28/19 08:00 84 04/28/19 06:58 36.8 C 80 20 150/68 H 97 04/28/19 02:23 36.7 C 95 H 18 141/68 H 95 Laboratory Results 04/28/19 04/28/19 04/28/19 Range/Units 06:52 06:52 06:02 WBC (4.8-10.8) K/uL RBC (4.7-6.1) M/uL Hgb (14.0-18.0) g/dL Hct (42-52) % MCV (80-100) fL MCH (25-34) pg MCHC (32-36) g/dL RDW Std Deviation (36.4-46.3) fL RDW Coeff of Jolanta (11.5-14.5) % Plt Count (130-400) K/uL MPV (7.4-10.4) fL Immature Gran % (Auto) % Neut % (Auto) % Lymph % (Auto) % Isabela % (Auto) % Eos % (Auto) % Baso % (Auto) % Immature Gran # (Auto) (0.00-0.02) K/uL Neut # (Auto) (1.4-6.5) K/uL Lymph # (Auto) (1.2-3.4) K/uL Isabela # (Auto) (0.11-0.59) K/uL Eos # (Auto) (0-0.5) K/uL Baso # (Auto) (0-0.2) K/uL Sodium (136-145) mmol/L Potassium (3.5-5.1) mmol/L Chloride (98-107) mmol/L Carbon Dioxide (21-32) mmol/L Anion Gap (3-11) BUN (7-18) mg/dl Creatinine (0.6-1.4) mg/dl Est Cr Clr Drug Dosing ml/min Est GFR ( Amer) Est GFR (Non-Af Amer) BUN/Creatinine Ratio (10-20) Glucose (70-99) mg/dl Lactate 1.3 (0.4-2.0) mmol/L Calcium (8.5-10.1) mg/dl Total Bilirubin (0.2-1) mg/dl AST (15-37) U/L ALT (12-78) U/L Alkaline Phosphatase (45-117) U/L Total Protein (6.4-8.2) gm/dl Albumin (3.4-5.0) gm/dl Globulin (2.5-4.0) gm/dl Albumin/Globulin Ratio (0.9-2) Procalcitonin 35.18 H (0-0.5) ng/ml Nasal Screen MRSA (PCR) (Negative) Random Vancomycin 26.2 mcg/ml 04/28/19 04/28/19 04/28/19 Range/Units 06:02 06:02 05:40 WBC 19.31 H (4.8-10.8) K/uL RBC 2.70 L (4.7-6.1) M/uL Hgb 8.6 L (14.0-18.0) g/dL Hct 26.3 L (42-52) % MCV 97.4 (80-100) fL MCH 31.9 (25-34) pg MCHC 32.7 (32-36) g/dL RDW Std Deviation 68.0 H (36.4-46.3) fL RDW Coeff of Jolanta 19.4 H (11.5-14.5) % Plt Count 117 L (130-400) K/uL MPV 8.9 (7.4-10.4) fL Immature Gran % (Auto) % Neut % (Auto) % Lymph % (Auto) % Isabela % (Auto) % Eos % (Auto) % Baso % (Auto) % Immature Gran # (Auto) (0.00-0.02) K/uL Neut # (Auto) (1.4-6.5) K/uL Lymph # (Auto) (1.2-3.4) K/uL Isabela # (Auto) (0.11-0.59) K/uL Eos # (Auto) (0-0.5) K/uL Baso # (Auto) (0-0.2) K/uL Sodium 135 L (136-145) mmol/L Potassium 4.1 (3.5-5.1) mmol/L Chloride 97 L (98-107) mmol/L Carbon Dioxide 29 (21-32) mmol/L Anion Gap 9.0 (3-11) BUN 26 H D (7-18) mg/dl Creatinine 5.76 H* D (0.6-1.4) mg/dl Est Cr Clr Drug Dosing 14.8 ml/min Est GFR ( Amer) 10.4 Est GFR (Non-Af Amer) 9.0 BUN/Creatinine Ratio 4.5 L (10-20) Glucose 124 H (70-99) mg/dl Lactate (0.4-2.0) mmol/L Calcium 8.6 (8.5-10.1) mg/dl Total Bilirubin (0.2-1) mg/dl AST (15-37) U/L ALT (12-78) U/L Alkaline Phosphatase (45-117) U/L Total Protein (6.4-8.2) gm/dl Albumin (3.4-5.0) gm/dl Globulin (2.5-4.0) gm/dl Albumin/Globulin Ratio (0.9-2) Procalcitonin (0-0.5) ng/ml Nasal Screen MRSA (PCR) Negative (Negative) Random Vancomycin mcg/ml 04/27/19 04/27/19 04/27/19 Range/Units 20:34 20:34 14:20 WBC (4.8-10.8) K/uL RBC (4.7-6.1) M/uL Hgb (14.0-18.0) g/dL Hct (42-52) % MCV (80-100) fL MCH (25-34) pg MCHC (32-36) g/dL RDW Std Deviation (36.4-46.3) fL RDW Coeff of Jolanta (11.5-14.5) % Plt Count (130-400) K/uL MPV (7.4-10.4) fL Immature Gran % (Auto) % Neut % (Auto) % Lymph % (Auto) % Isabela % (Auto) % Eos % (Auto) % Baso % (Auto) % Immature Gran # (Auto) (0.00-0.02) K/uL Neut # (Auto) (1.4-6.5) K/uL Lymph # (Auto) (1.2-3.4) K/uL Isabela # (Auto) (0.11-0.59) K/uL Eos # (Auto) (0-0.5) K/uL Baso # (Auto) (0-0.2) K/uL Sodium 135 L (136-145) mmol/L Potassium 4.1 D (3.5-5.1) mmol/L Chloride 97 L (98-107) mmol/L Carbon Dioxide 29 (21-32) mmol/L Anion Gap 10.0 (3-11) BUN 16 D (7-18) mg/dl Creatinine 4.66 H* D (0.6-1.4) mg/dl Est Cr Clr Drug Dosing 18.3 ml/min Est GFR ( Amer) 13.4 Est GFR (Non-Af Amer) 11.6 BUN/Creatinine Ratio 3.5 L (10-20) Glucose 118 H (70-99) mg/dl Lactate 3.0 H* 1.7 (0.4-2.0) mmol/L Calcium 8.6 (8.5-10.1) mg/dl Total Bilirubin 1.2 H D (0.2-1) mg/dl AST 20 (15-37) U/L ALT 9 L (12-78) U/L Alkaline Phosphatase 139 H (45-117) U/L Total Protein 6.2 L (6.4-8.2) gm/dl Albumin 2.7 L (3.4-5.0) gm/dl Globulin 3.5 (2.5-4.0) gm/dl Albumin/Globulin Ratio 0.8 L (0.9-2) Procalcitonin (0-0.5) ng/ml Nasal Screen MRSA (PCR) (Negative) Random Vancomycin mcg/ml 04/27/19 04/27/19 Range/Units 09:12 09:12 WBC 16.49 H (4.8-10.8) K/uL RBC 3.13 L (4.7-6.1) M/uL Hgb 10.2 L (14.0-18.0) g/dL Hct 31.2 L (42-52) % MCV 99.7 (80-100) fL MCH 32.6 (25-34) pg MCHC 32.7 (32-36) g/dL RDW Std Deviation 69.0 H (36.4-46.3) fL RDW Coeff of Jolanta 19.5 H (11.5-14.5) % Plt Count 142 (130-400) K/uL MPV 8.9 (7.4-10.4) fL Immature Gran % (Auto) 0.2 % Neut % (Auto) 88.4 % Lymph % (Auto) 5.1 % Isabela % (Auto) 6.0 % Eos % (Auto) 0.1 % Baso % (Auto) 0.2 % Immature Gran # (Auto) 0.04 H (0.00-0.02) K/uL Neut # (Auto) 14.58 H (1.4-6.5) K/uL Lymph # (Auto) 0.84 L (1.2-3.4) K/uL Isabela # (Auto) 0.99 H (0.11-0.59) K/uL Eos # (Auto) 0.01 (0-0.5) K/uL Baso # (Auto) 0.03 (0-0.2) K/uL Sodium (136-145) mmol/L Potassium (3.5-5.1) mmol/L Chloride (98-107) mmol/L Carbon Dioxide (21-32) mmol/L Anion Gap (3-11) BUN (7-18) mg/dl Creatinine (0.6-1.4) mg/dl Est Cr Clr Drug Dosing ml/min Est GFR ( Amer) Est GFR (Non-Af Amer) BUN/Creatinine Ratio (10-20) Glucose (70-99) mg/dl Lactate (0.4-2.0) mmol/L Calcium (8.5-10.1) mg/dl Total Bilirubin (0.2-1) mg/dl AST (15-37) U/L ALT (12-78) U/L Alkaline Phosphatase (45-117) U/L Total Protein (6.4-8.2) gm/dl Albumin (3.4-5.0) gm/dl Globulin (2.5-4.0) gm/dl Albumin/Globulin Ratio (0.9-2) Procalcitonin 2.14 H (0-0.5) ng/ml Nasal Screen MRSA (PCR) (Negative) Random Vancomycin mcg/ml Diagnostic Findings CT angio abdomen pelvis w con CLINICAL HISTORY: 73 years-old Male with ischemic bowel,assess for mesenteric stenosis acute bowel ischemia. Clinical concern for thrombus or occlusion of the mesenteric vessels. COMPARISON STUDY: ET abdomen and pelvis 04/27/2019 TECHNIQUE: Following the IV administration of 119 cc of Optiray 320, CT angiogram of the abdomen and pelvis was performed from the lung bases the proximal femora. Images are reviewed in the axial, sagittal, and coronal planes. 3-D MIPS images are created and assessed. IV contrast was administered without complication. All measurements were obtained according to NASCET criteria. A dose lowering technique was utilized adhering to the principles of ALARA. CT DOSE: 996.86 mGy.cm FINDINGS: CTA: Moderate cardiomegaly. Coronary arterial calcifications are noted. Mitral valve prosthesis. Severe mixed plaque formation of the abdominal aorta with extensive vascular calcifications of the abdomen and pelvis. Patent aortobiiliac stent graft with fusiform dilation of the bilateral common iliac arteries. Bilateral common, and external iliac arteries, common femoral and imaged superficial femoral arteries also appear patent. Bilateral internal iliac arteries appear patent. There is approximately 50% luminal narrowing at the origin of the celiac trunk secondary to atheromatous plaque. 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 Extensive mixed plaque formation of the superior mesenteric artery without occlusion identified. High-grade stenosis about a branch of the superior mesenteric artery is noted on image 212 series 3. There is apparent occlusion about the proximal few centimeters of the inferior m esenteric artery with reconstitution of flow noted on image 244 series 3, which appears to be from collateral flow via the arc of Riolan. High-grade stenosis about the proximal right renal artery with approximately 50% stenosis about the proximal left renal artery. Left renal arterial stent graft noted. CT ABDOMEN/PELVIS: Chronic right-sided pleural thickening with dependent right basilar consol idation suggestive of atelectasis/scarring. No pneumatosis. There is decreased portal venous gas with decreased mesenteric venous gas. Prior cholecystectomy is likely postsurgical biliary ductal dilation. Liver is otherwise unremarkable. Indeterminate hypodense 1.2 cm lesion of the inferior right hepatic lobe. Trace perihepatic ascites. Spleen, pancreas and adrenal glands are unremarkable. Atrophic morphology of the bilateral kidneys, left greater than right with bilateral renal cysts. 9 mm proteinaceous or hemorrhagic cyst of the inferior pole right kidney. Moderate bilateral hydroureteronephrosis without obstructing calculus or lesion. Partial distention the bladder with wall thickening and trabeculation. Prostamegaly. Trace abdominopelvic ascites. No bowel obstruction. Wall thickening with surrounding pericolonic stranding about the sigmoid: Redemonstrated with additional extensive wall thickening and pericolonic stranding about the ascending colon, hepatic flexure, proximal and mid transverse colon which has progressed from comparison. Normal appendix. Tiny fat filled periumbilical hernia. Degenerative changes of the spine, pelvis and hips with multilevel central canal narrowing of the lumbar spine redemonstrated. Unchanged L2 compression deformity. IMPRESSION: 1. Progressive bowel wall thickening with pericolonic stranding involves the ascending colon, hepatic flexure and transverse colon with additional less extensive wall thickening again noted throughout the sigmoid colon. Decreased portal venous and mesenteric venous gas. Constellation of these findings is concerning for ischemic colitis. 2. Focal high-grade stenosis about a branch of the distal superior mesenteric artery about the mid mesentery. Occlusion of the proximal few centimeters of the TYESHA with collateral flow noted via the arc of Riolan. 3. Atrophic morphology of the bilateral kidneys, likely secondary to associated renal arterial stenosis. 4. Unchanged moderate bilateral hydroureteronephrosis without obstructing calculus or lesion identified. Additionally, there is suggestion of chronic urinary bladder outlet obstruction with prostamegaly. 5. No bowel obstruction or pneumoperitoneum. 6. Additional findings as above. PG Care Time/CCT Total # of Minutes Spent Total Time Spent with Patient: Total time spent is greater than 50% in coordination of care (as documented) at patient's floor/unit and/or counseling patient: (1) Nausea & vomiting Vomiting Intractability: unspecified Vomiting type: unspecified Qualified Code(s): R11.2 - Nausea with vomiting, unspecified (2) Atrial fibrillation Atrial fibrillation type: paroxysmal Qualified Code(s): I48.0 - Paroxysmal atrial fibrillation
--- NOTE | 2019-04-28 13:26 | Progress Note ---
Date of Service April 28, 2019 Assessment & Plan (1) Ischemic colitis: see subjective area for plan Subjective pt appears ill- CTA shows expected vascular disease- not amenable to angioplasty- Rt and transverse colon are ischemic and worse than prior CT- will need emergent colectomy and ileostomy or he will likely from this- he and sister wish to proceed with operation Results & Data Vital Signs (Past 12 Hours) Vital Signs Temp Pulse Pulse Pulse Resp BP Pulse Ox 04/28/19 11:14 36.8 C 92 H 22 156/86 H 94 04/28/19 08:00 84 04/28/19 06:58 36.8 C 80 20 150/68 H 97 04/28/19 02:23 36.7 C 95 H 18 141/68 H 95
[2019-04-28] MEDS ORDERED: SODIUM CHLORIDE 0.9% 250 ML IV PRN (13:30)
[2019-04-28] MEDS ORDERED: SODIUM CHLORIDE 0.9% 1000ML 1,000 ML IV SCH (13:30)
[2019-04-28] MEDS ORDERED: ETOMIDATE 2 MG/ML 20 ML VIAL IV ONE (14:03)
[2019-04-28] MEDS ORDERED: CISATRACURIUM BESYLATE IV SOLN 2 MG/ML 10 ML VIAL IV ONE ×3 (14:03→16:21)
[2019-04-28] MEDS ORDERED: LIDOCAINE HCL 2% 2 ML VIAL/AMP(20MG/ML) INFIL ONE (14:04)
[2019-04-28] MEDS ORDERED: fentaNYL citrate 100 MCG/2 ML VIAL ONE (14:04)
--- NOTE | 2019-04-28 14:20 | Anesthesiology Consultation ---
Date of Service April 28, 2019 Assessment & Plan (1) Encounter for pre-operative examination: Chart Review Chart Review: Acceptable Risk for Surgery Consults Requested none ASA [id number] Proposed Anesthesia Anesthesia Type: General Anesthesia Line Insertion: Arterial line Risk / Benefits Reviewed With: PT / POA / Parent / Guardian, Accepts Plan and Informed Consent Obtained History Surgery Operation Date: 04/28/19 13:55 Proposed Procedures p Exploratory Laparotomy - Sj Restrepo MD, FACS Height/Weight Height: 6 ft 2 in Weight: 105 kg Allergies Allergy/AdvReac Type Severity Reaction Status Date / Time tramadol Allergy Unknown dizziness;a Verified 04/26/19 05:59 nxiety;sob gabapentin Allergy Unknown Verified 04/26/19 11:26 oxycodone AdvReac Severe DELIRIUM Verified 04/26/19 05:59 Medications Home Medications Medication Instructions Recorded Confirmed Last Taken Breo Ellipta 1 inh INHALATION DAILY 08/23/18 04/26/19 04/25/19 08:00 albuterol sulfate 2 puff INHALATION Q6H PRN 08/23/18 04/26/19 04/25/19 12:00 amiodarone 200 mg PO Q OTHER DAY 08/23/18 04/26/19 04/25/19 08:00 aspirin [Aspir-Low] 81 mg PO QAM 08/23/18 04/26/19 04/25/19 08:00 atorvastatin 40 mg PO HS 08/23/18 04/26/19 04/25/19 20:00 calcium acetate 667 mg PO TIDM 08/23/18 04/26/19 04/25/19 17:00 cyanocobalamin (vitamin B-12) 1,000 mcg PO 3XWK 08/23/18 04/26/19 04/25/19 12:00 paroxetine HCl 20 mg PO QAM 08/23/18 04/26/19 04/25/19 08:00 Spiriva with HandiHaler 1 cap INHALATION DAILY 08/30/18 04/26/19 04/25/19 12:00 azithromycin 500 mg PO DIRECTED PRN 08/30/18 04/26/19 Unknown omeprazole 20 mg PO DAILY 08/30/18 04/26/19 04/25/19 08:00 lidocaine 4 % topical patch 1 patch TOP TID PRN 02/10/19 04/26/19 Unknown pregabalin 75 mg capsule 75 mg PO DAILY cap 02/10/19 04/26/19 04/25/19 20:00 polyethylene glycol 3350 17 8.5 gm PO DAILY PRN #119 gm 03/30/19 04/26/19 04/23/19 21:00 gram/dose oral powder cefadroxil 500 mg capsule 500 mg PO DAILY cap 03/31/19 04/26/19 04/25/19 08:00 famotidine 20 mg tablet 20 mg PO 3XWK tab 03/31/19 04/26/19 04/25/19 08:00 ipratropium-albuterol 0.5 mg-3 3 ml INHALATION Q6H PRN ml 03/31/19 04/26/19 04/25/19 08:30 mg(2.5 mg base)/3 mL nebulization soln levothyroxine 75 mcg capsule 75 mcg PO HS cap 03/31/19 04/26/19 04/25/19 20:00 midodrine 5 mg tablet 5 mg PO TID tab 03/31/19 04/26/19 04/26/19 05:15 saliva substitute combo no.9 10 ml PO DAILY PRN ml 03/31/19 04/26/19 04/25/19 12:00 mouthwash triamcinolone acetonide 0.1 % 1 appln TOP BID #453.6 gm 03/31/19 04/26/19 04/25/19 18:00 topical cream clopidogrel [Plavix] 75 mg PO DAILY #30 tab 04/26/19 04/26/19 Unknown midodrine 5 mg PO .QID UD 04/26/19 04/26/19 Unknown Active Medications Generic Name Dose Route Start Last Admin Trade Name Freq PRN Reason Stop Dose Admin Amiodarone HCl 200 mg 04/27/19 09:00 04/27/19 08:23 Cordarone PO 05/27/19 08:59 200 mg Q2D@0900 [place] Administration Aspirin 81 mg 04/27/19 09:00 04/28/19 08:33 Ecotrin Ectab PO 05/27/19 08:59 81 mg QAM [place] Administration Calcium Acetate 667 mg 04/27/19 08:00 04/28/19 12:32 Phoslo PO 05/27/19 07:59 Not Given TIDM [place] Clopidogrel Bisulfate 75 mg 04/27/19 09:00 04/27/19 08:24 Plavix PO 05/27/19 08:59 75 mg DAILY [place] Administration Cyanocobalamin 1,000 mcg 04/28/19 09:00 04/28/19 08:33 Vitamin B-12 PO 05/28/19 08:59 1,000 mcg TuThSa@0900 [place] Administration Famotidine 20 mg 04/27/19 09:00 04/27/19 08:23 Pepcid PO 05/27/19 08:59 20 mg MoWeFr@0900 [place] Administration Heparin Sodium (Porcine) 5,000 units 04/26/19 21:00 04/27/19 08:22 Heparin Sodium (Porcine) SQ 05/26/19 20:59 5,000 units Q12 [place] Administration Levothyroxine Sodium 37.5 mcg/ 1.875 mls @ 2 mls/min 04/28/19 09:00 04/28/19 08:37 Syringe IV 05/28/19 08:59 2 mls/min DAILY@0900 [place] Administration Sodium Chloride 1,000 mls @ 50 mls/hr 04/28/19 13:30 04/28/19 13:28 Nss 1000ml IV 05/28/19 13:29 50 mls/hr .Q20H [place] Administration Promethazine HCl 12.5 mg/ 50.5 mls @ 202 mls/hr 04/26/19 20:17 04/28/19 10:20 Sodium Chloride IV 05/26/19 20:16 Infused Q6H PRN Infusion Nausea And Vomiting Acetaminophen 65 mls @ 200 mls/hr 04/26/19 20:17 04/28/19 05:15 Ofirmev IV 05/26/19 20:16 Infused Q8H PRN Infusion Pain or Fever Piperacillin Sod/Tazobactam 115 mls @ 28.75 mls/hr 04/27/19 18:00 04/28/19 09:31 Sod 3.375 gm/ Dextrose IV 05/04/19 17:59 Infused Q12H [place] Infusion Protocol Ioversol 119 ml 04/28/19 12:13 04/28/19 12:14 Optiray 320 125ml IV 05/02/19 12:12 119 ml ONCE PRN Administration Interaction Checking Levothyroxine Sodium 75 mcg 04/26/19 22:00 04/26/19 21:43 Synthroid PO 05/26/19 21:59 75 mcg DAILY@2200 [place] Administration Midodrine 5 mg 04/27/19 07:00 04/27/19 12:06 Proamatine PO 05/27/19 06:59 5 mg MoWeFr@0700,1000 [place] Administration Midodrine 5 mg 04/27/19 13:00 04/27/19 17:07 Proamatine PO 05/27/19 12:59 5 mg MoWeFr@1300,1600 [place] Administration Miscellaneous 1 ea 04/27/19 00:00 04/28/19 08:32 Order Awaiting Action N/A 05/27/19 00:00 Not Given QS [place] Miscellaneous 1 ea 04/27/19 00:00 04/28/19 08:32 Order Awaiting Action N/A 05/27/19 00:00 Not Given QS [place] Ondansetron HCl 4 mg 04/26/19 20:17 04/27/19 19:30 Zofran IV 05/26/19 20:16 4 mg Q6H PRN Administration Nausea Pantoprazole Sodium 40 mg 04/27/19 09:00 04/28/19 08:34 Protonix PO 05/27/19 08:59 40 mg DAILY [place] Administration Paroxetine HCl 20 mg 04/27/19 09:00 04/28/19 08:34 Paxil PO 05/27/19 08:59 20 mg QAM [place] Administration Pregabalin 75 mg 04/27/19 09:00 04/28/19 08:37 Lyrica PO 05/27/19 08:59 75 mg DAILY [place] Administration Tiotropium Doyle 1 puffs 04/27/19 09:00 04/28/19 08:34 Spiriva INH 05/27/19 08:59 1 puffs DAILY [place] Administration NPO Date Last Intake of Fluids: 04/28/19 Time Last Intake of Fluids: 09:00 Date Last Intake of Solids: 04/27/19 Time Last Intake of Solids: 17:00 Past Medical History Medical History Gangrene (Resolved) Atrial fibrillation (Resolved) AAA (abdominal aortic aneurysm) (Resolved) Anxiety (Chronic) Chronic GERD (Chronic) Myocardial infarct, old (Chronic) 2010 CVA (cerebral vascular accident) (Chronic) "NO RESIDUAL EFFECTS" PER RECORDS GERD (gastroesophageal reflux disease) (Chronic) Peripheral vascular disease (Chronic) H/O: gout (Chronic) Anxiety (Chronic) Depression (Chronic) Atrial fibrillation (Chronic) PAROXYSMAL- ON ASA PER RECORDS Gangrene of toe (Acute) right toes REASON FOR PROCEDURE CAD (coronary artery disease) (Chronic) S/P CABG X2 (DURING MVR) 2010 Valvular disease (Chronic) S/P MVR (2010); ?AVR PER RECORDS Acute osteomyelitis of foot (Acute) AV fistula (Chronic) right arm ESRD (end stage renal disease) Encounter for central line placement (Acute) Exercise / Class Metabolic Activity III < 4 Walking/Shop/Light housework Past Family History Family History Mother Essential hypertension Father , age 76 Myocardial infarction Past Surgical History Surgical History Hx of CABG (Acute) S/P CABG X2 (DURING MVR) 2010 S/P cholecystectomy (Resolved) H/O abdominal aortic aneurysm repair (Resolved) 2011 H/O mitral valve repair (Resolved) 2010; ?AVR PER RECORDS H/O [id number] bypass (Resolved) 2012 Difficult intubation (Chronic) B/L Anteriogram, Right femoral to anterior tibial cadaver vein bypass= 08/06/18= Grade view 4, MAC 3 --> Glidescope #3, ETT 7.5 at [facility] Past Anesthesia History No Hx of Anesthesia Complications and No Family Hx of Anesthesia Complications History of PONV No Hx of PONV and No Hx of Motion Sickness Social History Smoking Status: Former smoker tobacco type: cigars Hx Alcohol Use: Yes alcohol intake frequency: holidays/special occasions only Hx Substance Use: No substance use type: does not use Physical Exam Vital Signs Last Vital Signs Temp 98.2 F 04/28/19 11:14 Pulse 92 H 04/28/19 11:14 Resp 22 04/28/19 11:14 BP 156/86 H 04/28/19 11:14 Pulse Ox 94 04/28/19 11:14 ENMT Mouth: no dentition abnormality Thyromental Distance: > or= 3.5 Finger Breadths Mallampati Class: II Neck normal visual inspection Respiratory normal respiratory effort Auscultation: lungs clear to auscultation bilaterally Cardiovascular Rate/Rhythm: regular rate and regular rhythm Testing Laboratory Results 04/28/19 06:02 04/28/19 06:02 PT 10.8 Seconds (9.0-12.0) 04/26/19 17:22 INR 1.1 (0.9-1.1) 04/26/19 17:22 APTT 24.1 Seconds (21.0-31.0) 04/26/19 17:22 Electrocardiogram Date: 04/27/19 Sinus rhythm with 1st degree A-V block with occasional Premature ventricular complexes, rate [address] & T wave abnormality, consider lateral ischemia Abnormal ECG When compared with ECG of 26-APR-2019 15:26, (unconfirmed) Premature ventricular complexes are now Present Confirmed by Aiden Barlow ([id number]) on 04/28/2019 6:13:09 AM Chest X-Ray Date: 04/26/19 IMPRESSION: 1. Parenchymal infiltrate/atelectasis left base. 2. Mild stable cardiomegaly. Echocardiogram Date: 07/31/16 EF: 50-55% Low normal overall left ventricular systolic function. Severe concentric left ventricle hypertrophy. Class 2 left ventricular diastolic dysfunction. Moderate left atrial and mild right atrial dilatation. Normal right ventricular size. Mildly reduced overall right ventricular systolic function. Aortic valve sclerosis. No aortic stenosis. Trace aortic regurgitation. Mild pulmonic regurgitation. Trace mitral and tricuspid regurgitation. Normal estimated central venous and right ventricular systolic pressures.
[2019-04-28] MEDS ORDERED: ALBUMIN HUMAN 5% 12.5 GM/250 ML VIAL IV ONE ×2 (15:03→15:22)
[2019-04-28] MEDS ORDERED: HYDROmorphone INJ 2 MG/ML SYR/VIAL ONE (15:09)
--- NOTE | 2019-04-28 15:10 | Pharmacy Report ---
Pharmacy Abx Dose Short Note - Date of Service April 28, 2019 - Assessment & Plan Assessment 73 year old M receiving Vancomycin for treatment of aspiration Pneumonia. Received Vanco 2250 mg (21.4 mg/kg) load yesterday at 1417 hrs. Patient is also on Zosyn. Currently also has ischemic colitis. He is on Hemodialysis. Day # 2 of antimicrobial therapy. Plan Vancomycin * Random level of 26.2 mcg/mL is supratherapeutic. * Since patient is on chronic HD, will dose Vancomycin with single doses based on random levels checked in the AM. * Goal trough level for Pneumonia: 15 to 20 mcg/mL * Random Vanco level ordered for: 04/29 with AM labs. * Will re-dose Vanco when level falls between 15-20 mcg/ml * MRSA nasal screen negative today. Dr. Araya would like to continue Vancomycin since patient has history of MRSA and currently very ill. Pharmacy will continue to follow and will adjust dose/frequency as necessary. Thank you.
--- NOTE | 2019-04-28 16:10 | Nephrology Progress Note ---
Date of Service April 28, 2019 Assessment & Plan (1) ESRD (end stage renal disease) on dialysis: -Had HD yesterday. Next HD tomorrow. CTA concerning for ischemic colitis. Will attempt minimal UF to avoid hypotension and worsening ischemia (2) Hyperkalemia: Improved after HD yesterday. K 4.1 today. (3) Nausea & vomiting: Likely in setting of ischemic colitis. Conservative management (4) Orthostatic hypotension: Avoid midodrine due to potential to worsen ischemia; consider lowering coreg dose if persistent. Subjective Patient seen in follow up. No SOB or abdominal pain. CTA concerning for ischemic colitis. He tolerated HD yesterday Review of Systems Review of Systems: All systems reviewed & are unremarkable except as noted in HPI & below Physical Exam Physical Exam: General exam: Appears comfortable, no acute distress HEENT: Pupils are equal and reactive to light Neck: No JVD, neck is supple trachea is midline Respiratory system: Clear breath sounds bilaterally. Gastrointestinal: Abdomen is soft, distended, non tender, bowel sounds are present CVS: Regular rate and rhythm. No murmurs, rubs or gallops Musculoskeletal: No joint or muscle tenderness Extremities: Non tender, no edema, peripheral pulses are present. Right foot stump. Neuro: Oriented, no tremors, no focal neurological deficits Skin: No rashes Results & Data Vital Signs (Past 12 Hours) Vital Signs Temp Pulse Pulse Resp BP Pulse Ox 04/28/19 11:14 36.8 C 92 H 22 156/86 H 94 04/28/19 08:00 84 04/28/19 06:58 36.8 C 80 20 150/68 H 97 Laboratory Results Laboratory Results - last 24 hr 04/27/19 04/27/19 04/28/19 20:34 20:34 05:40 WBC RBC Hgb Hct MCV MCH MCHC RDW Std Deviation RDW Coeff of Jolanta Plt Count MPV Sodium 135 L Potassium 4.1 D Chloride 97 L Carbon Dioxide 29 Anion Gap 10.0 BUN 16 D Creatinine 4.66 H* D Est Cr Clr Drug Dosing 18.3 Est GFR ( Amer) 13.4 Est GFR (Non-Af Amer) 11.6 BUN/Creatinine Ratio 3.5 L Glucose 118 H Lactate 3.0 H* Calcium 8.6 Total Bilirubin 1.2 H D AST 20 ALT 9 L Alkaline Phosphatase 139 H Total Protein 6.2 L Albumin 2.7 L Globulin 3.5 Albumin/Globulin Ratio 0.8 L Procalcitonin Nasal Screen MRSA (PCR) Negative Random Vancomycin Blood Type Antibody Screen Antibody Identification Crossmatch 04/28/19 04/28/19 04/28/19 06:02 06:02 06:02 WBC 19.31 H RBC 2.70 L Hgb 8.6 L Hct 26.3 L MCV 97.4 MCH 31.9 MCHC 32.7 RDW Std Deviation 68.0 H RDW Coeff of Jolanta 19.4 H Plt Count 117 L MPV 8.9 Sodium 135 L Potassium 4.1 Chloride 97 L Carbon Dioxide 29 Anion Gap 9.0 BUN 26 H D Creatinine 5.76 H* D Est Cr Clr Drug Dosing 14.8 Est GFR ( Amer) 10.4 Est GFR (Non-Af Amer) 9.0 BUN/Creatinine Ratio 4.5 L Glucose 124 H Lactate Calcium 8.6 Total Bilirubin AST ALT Alkaline Phosphatase Total Protein Albumin Globulin Albumin/Globulin Ratio Procalcitonin Nasal Screen MRSA (PCR) Random Vancomycin 26.2 Blood Type Antibody Screen Antibody Identification Crossmatch 04/28/19 04/28/19 04/28/19 06:52 06:52 13:48 WBC RBC Hgb Hct MCV MCH MCHC RDW Std Deviation RDW Coeff of Jolanta Plt Count MPV Sodium Potassium Chloride Carbon Dioxide Anion Gap BUN Creatinine Est Cr Clr Drug Dosing Est GFR ( Amer) Est GFR (Non-Af Amer) BUN/Creatinine Ratio Glucose Lactate 1.3 Calcium Total Bilirubin AST ALT Alkaline Phosphatase Total Protein Albumin Globulin Albumin/Globulin Ratio Procalcitonin 35.18 H Nasal Screen MRSA (PCR) Random Vancomycin Blood Type A Positive Antibody Screen POSITIVE A Antibody Identification Anti-E Crossmatch See Detail (1) Nausea & vomiting Vomiting Intractability: unspecified Vomiting type: unspecified Qualified Code(s): R11.2 - Nausea with vomiting, unspecified
[2019-04-28] MEDS ORDERED: SUCCINYLCHOLINE CHLORIDE 20 MG/ML 10 ML VIAL ONE (16:21)
--- NOTE | 2019-04-28 17:21 | Operative Report ---
Post Operative Report Pre & Post Diagnosis Operation Date: 04/28/19 13:55 Pre-Op Diagnosis: Ischemic Colitis Post-Op Diagnosis: Ischemic Colitis, necrotic colon Procedure Operation Date: 04/28/19 13:55 Actual Procedures p Exploratory Laparotomy(Not Applicable) - Sj Restrepo MD, FACS subtotal colectomy with end ileostomy and Magallanes pouch Surgeon Sj Restrepo MD, FACS [employer] Estimated Blood Loss 100 Findings Consistent with Post-Op Diagnosis Specimens colon Description of Procedure see dictation I attest to the content of the Intraoperative Record and any orders documented therein. Any exceptions are noted below.
[2019-04-28] MEDS ORDERED: ICU PROTOCOL FOR HYPERGLYCEMIA PRN ×2 (17:23→18:42)
[2019-04-28] MEDS ORDERED: fentaNYL citrate 100 MCG/2 ML VIAL IV PRN (18:07)
[2019-04-28] MEDS ORDERED: fentaNYL DRIP 1,250 MCG/250 ML BAG IV SCH (18:07)
--- NOTE | 2019-04-28 18:09 | Critical Care Consultation ---
Date of Consultation April 28, 2019 Assessment & Plan (1) Ischemic colitis: Neuro- sedated. fentanyl as needed for comfort CV- HD stable. CAD, PVD Pulmonary- remains intubated after procedure. will plan on SBT in am ID- ischemic bowel s/p resection. continue piperacillin-tazobactam- renal dosed Renal- ESRD. dialysis per renal GI- NPO. 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 heparin for DVT proph Endocrine- keep blood sugars <180. levothyroxine for hypothyroidism Dispo- ICU care post op and for ventilatory support I have personally spent 35 minutes of critical care time in the direct management of this patient. This is a life/limb threatening event. This includes time spent evaluating patient, direct bedside care, chart review, placing orders, interpretation of diagnostic studies, discussion with consultants, patient, and/or family members regarding treatment decisions, as well as other required patient management activities. This time is exclusive of all separately billable procedures, and teaching time and separate from and in addition to any other critical care service time. History of Present Illness Attending Physician: Fatuma Araya MD History of Present Illness 73 y/o male with history off ESRD, CAD, hypothyroidism, PVD, a fib, COPD, CVA who presented for hypotension, weakness, and dizzyness on 04/26. He has had lower ext angio and ballon earlier on 04/26. then yesterday he started complaining of nausea and vomiting as well as abdomnal pain. he had a CT of abd/pelvis which showed portal gas and mesenteric venous gas. intially he was managed conservativly but repeat CT showed evidence of ischemic bowel and he was taken to the OR today for a subtotal colectomy and colostomy. He presents to the ICU post op and he remains intubated history obtained from the chart Allergies Allergy/AdvReac Type Severity Reaction Status Date / Time tramadol Allergy Unknown dizziness;a Verified 04/26/19 05:59 nxiety;sob gabapentin Allergy Unknown Verified 04/26/19 11:26 oxycodone AdvReac Severe DELIRIUM Verified 04/26/19 05:59 Home Medications Home Medications Medication Instructions Recorded Confirmed Type Breo Ellipta 1 inh INHALATION DAILY 08/23/18 04/26/19 History albuterol sulfate 2 puff INHALATION Q6H PRN 08/23/18 04/26/19 History amiodarone 200 mg PO Q OTHER DAY 08/23/18 04/26/19 History aspirin [Aspir-Low] 81 mg PO QAM 08/23/18 04/26/19 History atorvastatin 40 mg PO HS 08/23/18 04/26/19 History calcium acetate 667 mg PO TIDM 08/23/18 04/26/19 History cyanocobalamin (vitamin B-12) 1,000 mcg PO 3XWK 08/23/18 04/26/19 History paroxetine HCl 20 mg PO QAM 08/23/18 04/26/19 History Spiriva with HandiHaler 1 cap INHALATION DAILY 08/30/18 04/26/19 History azithromycin 500 mg PO DIRECTED PRN 08/30/18 04/26/19 History omeprazole 20 mg PO DAILY 08/30/18 04/26/19 History lidocaine 4 % topical patch 1 patch TOP TID PRN 02/10/19 04/26/19 History pregabalin 75 mg capsule 75 mg PO DAILY cap 02/10/19 04/26/19 History polyethylene glycol 3350 17 8.5 gm PO DAILY PRN #119 gm 03/30/19 04/26/19 Rx gram/dose oral powder cefadroxil 500 mg capsule 500 mg PO DAILY cap 03/31/19 04/26/19 History famotidine 20 mg tablet 20 mg PO 3XWK tab 03/31/19 04/26/19 History ipratropium-albuterol 0.5 mg-3 3 ml INHALATION Q6H PRN ml 03/31/19 04/26/19 History mg(2.5 mg base)/3 mL nebulization soln levothyroxine 75 mcg capsule 75 mcg PO HS cap 03/31/19 04/26/19 History midodrine 5 mg tablet 5 mg PO TID tab 03/31/19 04/26/19 History saliva substitute combo no.9 10 ml PO DAILY PRN ml 03/31/19 04/26/19 History mouthwash triamcinolone acetonide 0.1 % 1 appln TOP BID #453.6 gm 03/31/19 04/26/19 Rx topical cream clopidogrel [Plavix] 75 mg PO DAILY #30 tab 04/26/19 04/26/19 Rx midodrine 5 mg PO .QID UD 04/26/19 04/26/19 History Patient History Medical History Gangrene (Resolved) Atrial fibrillation (Resolved) AAA (abdominal aortic aneurysm) (Resolved) Anxiety (Chronic) Chronic GERD (Chronic) Myocardial infarct, old (Chronic) 2010 CVA (cerebral vascular accident) (Chronic) "NO RESIDUAL EFFECTS" PER RECORDS GERD (gastroesophageal reflux disease) (Chronic) Peripheral vascular disease (Chronic) H/O: gout (Chronic) Anxiety (Chronic) Depression (Chronic) Atrial fibrillation (Chronic) PAROXYSMAL- ON ASA PER RECORDS Gangrene of toe (Acute) right toes REASON FOR PROCEDURE CAD (coronary artery disease) (Chronic) S/P CABG X2 (DURING MVR) 2010 Valvular disease (Chronic) S/P MVR (2010); ?AVR PER RECORDS Acute osteomyelitis of foot (Acute) AV fistula (Chronic) right arm ESRD (end stage renal disease) Encounter for central line placement (Acute) Surgical History Hx of CABG (Acute) S/P CABG X2 (DURING MVR) 2010 S/P cholecystectomy (Resolved) H/O abdominal aortic aneurysm repair (Resolved) 2012 H/O mitral valve repair (Resolved) 2010; ?AVR PER RECORDS H/O [id number] bypass (Resolved) 2012 Difficult intubation (Chronic) B/L Anteriogram, Right femoral to anterior tibial cadaver vein bypass= 08/06/18= Grade view 4, MAC 3 --> Glidescope #3, ETT 7.5 at [facility] Family History Mother Essential hypertension Father , age 76 Myocardial infarction Social History Preferred Language: Tuvaluan Communication Ability: Effective Visual Impairment: No Limitations Beliefs That Will Affect Care: None marital status: / marital status details: 1 daughter Current Living Situation: Family Current Living Situation Comment: lives with his sister 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 MMM. no cervical lymphadenopathy. pupils dilated R pupil slightly larger than left CV: RRR nl s1,s2 no murmurs rubs or gallops Lungs: clear to auscultation bilaterally. no accessory muscle use Abd: soft nontender distended LUISA drain with serosanginous Ext: trace edema. no cyanosis. eccymosis to L groin Skin: warm dry. venous stasis rash to lower ext Neuro: sedated. moving all extremities Psych: sedated Results & Data Vital Signs (Past 12 Hours) Vital Signs Temp Pulse Pulse Resp BP Pulse Ox 04/28/19 11:14 36.8 C 92 H 22 156/86 H 94 04/28/19 08:00 84 04/28/19 06:58 36.8 C 80 20 150/68 H 97 Laboratory Results Laboratory Results - last 24 hr 04/27/19 04/27/19 04/28/19 20:34 20:34 05:40 WBC RBC Hgb Hct MCV MCH MCHC RDW Std Deviation RDW Coeff of Jolanta Plt Count MPV Sodium 135 L Potassium 4.1 D Chloride 97 L Carbon Dioxide 29 Anion Gap 10.0 BUN 16 D Creatinine 4.66 H* D Est Cr Clr Drug Dosing 18.3 Est GFR ( Amer) 13.4 Est GFR (Non-Af Amer) 11.6 BUN/Creatinine Ratio 3.5 L Glucose 118 H Lactate 3.0 H* Calcium 8.6 Total Bilirubin 1.2 H D AST 20 ALT 9 L Alkaline Phosphatase 139 H Total Protein 6.2 L Albumin 2.7 L Globulin 3.5 Albumin/Globulin Ratio 0.8 L Procalcitonin Nasal Screen MRSA (PCR) Negative Random Vancomycin Blood Type Antibody Screen Antibody Identification Crossmatch 04/28/19 04/28/19 04/28/19 06:02 06:02 06:02 WBC 19.31 H RBC 2.70 L Hgb 8.6 L Hct 26.3 L MCV 97.4 MCH 31.9 MCHC 32.7 RDW Std Deviation 68.0 H RDW Coeff of Jolanta 19.4 H Plt Count 117 L MPV 8.9 Sodium 135 L Potassium 4.1 Chloride 97 L Carbon Dioxide 29 Anion Gap 9.0 BUN 26 H D Creatinine 5.76 H* D Est Cr Clr Drug Dosing 14.8 Est GFR ( Amer) 10.4 Est GFR (Non-Af Amer) 9.0 BUN/Creatinine Ratio 4.5 L Glucose 124 H Lactate Calcium 8.6 Total Bilirubin AST ALT Alkaline Phosphatase Total Protein Albumin Globulin Albumin/Globulin Ratio Procalcitonin Nasal Screen MRSA (PCR) Random Vancomycin 26.2 Blood Type Antibody Screen Antibody Identification Crossmatch 04/28/19 04/28/19 04/28/19 06:52 06:52 13:48 WBC RBC Hgb Hct MCV MCH MCHC RDW Std Deviation RDW Coeff of Jolanta Plt Count MPV Sodium Potassium Chloride Carbon Dioxide Anion Gap BUN Creatinine Est Cr Clr Drug Dosing Est GFR ( Amer) Est GFR (Non-Af Amer) BUN/Creatinine Ratio Glucose Lactate 1.3 Calcium Total Bilirubin AST ALT Alkaline Phosphatase Total Protein Albumin Globulin Albumin/Globulin Ratio Procalcitonin 35.18 H Nasal Screen MRSA (PCR) Random Vancomycin Blood Type A Positive Antibody Screen POSITIVE A Antibody Identification Anti-E Crossmatch See Detail Diagnostic Findings CT angio abdomen pelvis w con CLINICAL HISTORY: 73 years-old Male with ischemic bowel,assess for mesenteric stenosis acute bowel ischemia. Clinical concern for thrombus or occlusion of the mesenteric vessels. COMPARISON STUDY: ET abdomen and pelvis 04/27/2019 TECHNIQUE: Following the IV administration of 119 cc of Optiray 320, CT angiogram of the abdomen and pelvis was performed from the lung bases the proximal femora. Images are reviewed in the axial, sagittal, and coronal planes. 3-D MIPS images are created and assessed. IV contrast was administered without complication. All measurements were obtained according to NASCET criteria. A dose lowering technique was utilized adhering to the principles of ALARA. CT DOSE: 996.86 mGy.cm FINDINGS: CTA: Moderate cardiomegaly. Coronary arterial calcifications are noted. Mitral valve prosthesis. Severe mixed plaque formation of the abdominal aorta with extensive vascular calcifications of the abdomen and pelvis. Patent aortobiiliac stent graft with fusiform dilation of the bilateral common iliac arteries. Bilateral common, and external iliac arteries, common femoral and imaged superficial femoral arteries also appear patent. Bilateral internal iliac arteries appear patent. There is approximately 50% luminal narrowing at the origin of the celiac trunk secondary to atheromatous plaque. 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 Extensive mixed plaque formation of the superior mesenteric artery without occlusion identified. High-grade stenosis about a branch of the superior mesenteric artery is noted on image 212 series 3. There is apparent occlusion about the proximal few centimeters of the inferior mesenteric artery with reconstitution of flow noted on image 244 series 3, which appears to be from collateral flow via the arc of Riolan. High-grade stenosis about the proximal right renal artery with approximately 50% stenosis about the proximal left renal artery. Left renal arterial stent graft noted. CT ABDOMEN/PELVIS: Chronic right-sided pleural thickening with dependent right basilar consolidation suggestive of atelectasis/scarring. No pneumatosis. There is decreased portal venous gas with decreased mesenteric venous gas. Prior cholecystectomy is likely postsurgical biliary ductal dilation. Liver is otherwise unremarkable. Indeterminate hypodense 1.2 cm lesion of the inferior right hepatic lobe. Trace perihepatic ascites. Spleen, pancreas and adrenal glands are unremarkable. Atrophic morphology of the bilateral kidneys, left greater than right with bilateral renal cysts. 9 mm proteinaceous or hemorrhagic cyst of the inferior pole right kidney. Moderate bilateral hydroureteronephrosis without obstructing calculus or lesion. Partial distention the bladder with wall thickening and trabeculation. Prostamegaly. Trace abdominopelvic ascites. No bowel obstruction. Wall thickening with surrounding pericolonic stranding about the sigmoid: Redemonstrated with additional extensive wall thickening and pericolonic stranding about the ascending colon, hepatic flexure, proximal and mid transverse colon which has progressed from comparison. Normal appendix. Tiny fat filled periumbilical hernia. Degenerative changes of the spine, pelvis and hips with multilevel central canal narrowing of the lumbar spine redemonstrated. Unchanged L2 compression deformity. IMPRESSION: 1. Progressive bowel wall thickening with pericolonic stranding involves the ascending colon, hepatic flexure and transverse colon with additional less extensive wall thickening again noted throughout the sigmoid colon. Decreased portal venous and mesenteric venous gas. Constellation of these findings is concerning for ischemic colitis. 2. Focal high-grade stenosis about a branch of the distal superior mesenteric artery about the mid mesentery. Occlusion of the proximal few centimeters of the TYESHA with collateral flow noted via the arc of Riolan. 3. Atrophic morphology of the bilateral kidneys, likely secondary to associated renal arterial stenosis. 4. Unchanged moderate bilateral hydroureteronephrosis without obstructing calculus or lesion identified. Additionally, there is suggestion of chronic urinary bladder outlet obstruction with prostamegaly. 5. No bowel obstruction or pneumoperitoneum. 6. Additional findings as above. The above report was generated using voice recognition software. It may contain grammatical, syntax or spelling errors. Electronically signed by: Oral Ford M.D. 04/28/2019 12:36 PM PG Care Time/CCT Critical Care Time: Yes Total Critical Care Time: 35
[2019-04-28 18:12] LABS: iSTAT Hemoglobin 7.1 g/dl (14.0-18.0); iSTAT Ionized Calcium 1.1 mmol/l (1.12-1.32); iSTAT Potassium 4.4 mEq/L (3.3-5.0)
--- NOTE | 2019-04-28 18:38 | Anesthesiology Progress Note ---
Date of Service April 28, 2019 Anesthesia Post Procedure Vital Signs Vital Signs: Temp Pulse Pulse Pulse Resp BP BP 04/28/19 18:10 92 H 20 143/69 H 143/67 H 04/28/19 18:00 94 H 20 169/84 H 195/73 H 04/28/19 17:50 97.9 F 92 H 91 H 19 195/86 H 04/28/19 11:14 98.2 F 92 H 22 156/86 H 04/28/19 08:00 84 04/28/19 06:58 98.2 F 80 20 150/68 H 04/28/19 02:23 98.1 F 95 H 18 141/68 H 04/27/19 22:56 98.8 F 95 H 20 110/50 L 04/27/19 19:41 98.8 F 96 H 20 111/52 L Pulse Ox 04/28/19 18:10 100 04/28/19 18:00 100 04/28/19 17:50 100 04/28/19 11:14 94 04/28/19 08:00 04/28/19 06:58 97 04/28/19 02:23 95 04/27/19 22:56 98 04/27/19 19:41 95 Pain Intensity Head: Pain Intensity: 2 Transfer of Care Handoff Completed per policy Notes Mental Status: see notes below Patient Amnestic to Procedure: Yes Nausea / Vomiting: adequately controlled Pain: adequately controlled Airway Patency, RR, SpO2: stable & adequate BP & HR: stable & adequate Hydration State: stable & adequate Anesthetic Complications: no major complications apparent and Pt Satisfied with anesthetic care Notes: Pt transported to ICU intubated with monitors and O2. Pt stable during transport. Report given to ICU team. Care transferred to ICU team.
[2019-04-28 20:18] LABS: iSTAT Arterial Blood Gas HCO3 26 meg/L (19-24); iSTAT Arterial Blood Gas pCO2 44 mmHg (35-46); iSTAT Arterial Blood Gas pH 7.38 (7.35-7.45); iSTAT Carbon Dioxide 27 mEq/l (24-31); iSTAT FiO2 50 %; iSTAT Site Art Line
[2019-04-28] MEDS: HEPARIN SOD 5,000 UNIT/0.5 ML VIAL SQ SCH (21:31)
--- NOTE | 2019-04-28 22:28 | Operative Report ---
DATE OF OPERATION: 04/28/2019 NAME OF OPERATION: Subtotal colectomy with end ileostomy and Driss pouch. PREOPERATIVE DIAGNOSIS: Ischemic colon. POSTOPERATIVE DIAGNOSES: Ischemic colon with necrotic colon. STAFF SURGEON: Sj Restrepo MD. ANESTHESIA: General. FINDINGS: The patient had a significantly dilated right colon and sigmoid colon. He had ischemia of the right colon and necrosis of the hepatic flexure with possible perforation. He had severe ischemia of the sigmoid colon. PROCEDURE: The patient was brought in the operating room and placed on the operating table in supine position. After appropriate intubation, orogastric tube was placed. Arterial line placed and Farmer catheter was placed with recovery of some urine. His abdomen was prepped and draped in usual fashion. Midline incision was made high in the abdomen to just below the umbilicus, carried dissection down into the abdomen. Initially, I encountered the sigmoid colon which was very redundant and dilated. It was also a pale and ischemic. The distal sigmoid colon was transected leaving viable colon. The staple line was oversewn using 3-0 Prolene suture and then the sigmoid colon mobilized as well as the left colon and splenic flexure. This was somewhat difficult because of the patient's significant adipose tissue and deep abdomen. We were able to mobilize the colon over to the distal transverse colon and then I approached the right colon. It was apparent that the right colon was ischemic. The cecum and ileum were mobilized along the lateral part of the abdomen and mesentery. The ileum was transected using an Endo-PAULA stapler to be brought out as an end ileostomy. The splenic flexure was mobilized. It was apparent that it was severely adherent to the liver. It appeared to be necrotic and possibly perforated. There was no overt abscess. Part of the omentum was left on the colon at this level. The mesocolon incorporating the cecum, right colon and transverse colon was then transected and ligated using 2-0 silk suture and the LigaSure. At this point, the entire colon sent as a subtotal colectomy. The end ileostomy was brought out through the right abdominal wall. I did have to mobilize the mesentery and lysis of adhesions to mobilize the ileum. The abdomen was irrigated with antibiotic solution. A 19 round Donavan-Nagel drain placed in the pelvis, secured to the skin using 3-0 nylon suture. There was no overt bleeding. The patient did receive 1 unit of blood during the operation as he was anemic prior to the operation. The abdomen was then closed using both running and interrupted #1 PDS suture. The skin was loosely reapproximated using victor m. A 0.5 inch saline wet ribbon gauze was placed intermittently between the victor m. The ileum was secured inside using 3-0 silk suture and then to the skin using 2-0 chromic suture. It was then opened and not matured. A bag was placed. Dressing applied and patient transferred to the intensive care unit in guarded condition. The blood loss was approximately 100 mL. I attest to the content of the Intraoperative Record and any orders documented therein. Any exception s are noted below.
[2019-04-29 05:23] LABS: BUN Creatinine Ratio 5.7 (10-20); Calcium 8.3 mg/dl (8.5-10.1); Creatinine Clr Calc Pharmacy 11.3 ml/min; Est GFR (African American) 7.5; Est GFR (Non-African American) 6.5; Potassium 4.6 mmol/L (3.5-5.1)
[2019-04-29] MEDS: PIPERACILLIN/TAZOBACTAM 3.375 GM in DEXTROSE 5% 100 ML IV SCH ×2 (05:45→17:34)
[2019-04-29 06:26] LABS: Basophils # (auto) 0.01 K/uL (0-0.2); Basophils % (auto) 0.1 %; Eosinophils # (auto) 0.22 K/uL (0-0.5); Eosinophils % (auto) 2.1 %; Hematocrit (blood only) 24.9 % (42-52); Hemoglobin 8.3 g/dL (14.0-18.0); Immature Granulocytes % (auto) 3.8 %; Lymphocytes # (auto) 0.47 K/uL (1.2-3.4); Lymphocytes % (auto) 4.4 %; Mean Corpuscular Hgb Conc 33.3 g/dL (32-36); Mean Corpuscular Volume 94.7 fL (80-100); Mean Platelet Volume 9.5 fL (7.4-10.4); Monocytes # (auto) 1.55 K/uL (0.11-0.59); Monocytes % (auto) 14.6 %; Neutrophils # (auto) 7.99 K/uL (1.4-6.5); Nucleated RBC # (auto) 0.02 K/uL (0-0); Nucleated RBC % (auto) 0.2 %; Platelet Count 129 K/uL (130-400); RDW Coefficient of Variation 19.3 % (11.5-14.5); Red Blood Count 2.63 M/uL (4.7-6.1); White Blood Count 10.64 K/uL (4.8-10.8)
--- NOTE | 2019-04-29 06:47 | Progress Note ---
Date of Service April 29, 2019 Assessment & Plan (1) Necrosis of colon: pt had necrosis of hepatic flexure and severe ichemia og Rt colon and sigmoid colon pt intubated, awakens, responds- no NG for now has ileostomy. binder in place- will d/c. possible extubation today. has yoon ( makes some urine)- ? leave today leave LUISA drain, check H/H- transfuse as needed cont IV atbx Subjective see a/p Results & Data Vital Signs (Past 12 Hours) Vital Signs Temp Pulse Pulse Resp BP BP Pulse Ox 04/29/19 06:00 94 H 14 136/78 99 04/29/19 05:09 95 H 17 100 04/29/19 05:00 94 H 14 122/50 L 99 04/29/19 04:00 37.2 C 94 H 12 113/50 L 99 04/29/19 03:00 94 H 12 110/48 L 99 04/29/19 02:13 94 H 12 99 04/29/19 02:00 93 H 13 109/48 L 99 04/29/19 01:00 92 H 14 100/45 L 99 04/29/19 00:00 36.9 C 91 H 14 105/46 L 99 04/28/19 23:00 90 14 107/45 L 99 04/28/19 22:20 90 12 99 04/28/19 22:00 90 14 101/42 L 99 04/28/19 21:00 89 14 105/44 L 99 04/28/19 20:00 36.7 C 86 12 115/52 L 99 04/28/19 19:43 85 12 100 04/28/19 19:00 85 91/53 L 100 04/28/19 18:50 86 100 04/28/19 18:45 85 82/48 L 100 Pulse Ox 04/29/19 06:00 04/29/19 05:09 04/29/19 05:00 04/29/19 04:00 04/29/19 03:00 04/29/19 02:13 04/29/19 02:00 04/29/19 01:00 04/29/19 00:00 04/28/19 23:00 04/28/19 22:20 04/28/19 22:00 04/28/19 21:00 04/28/19 20:00 99 04/28/19 19:43 04/28/19 19:00 04/28/19 18:50 04/28/19 18:45
--- NOTE | 2019-04-29 07:05 | Anesthesiology Progress Note ---
Date of Service April 29, 2019 Anesthesia Post Procedure Vital Signs Vital Signs: Temp Pulse Pulse Pulse Resp BP BP 04/29/19 06:00 94 H 14 136/78 04/29/19 05:09 95 H 17 04/29/19 05:00 94 H 14 122/50 L 04/29/19 04:00 37.2 C 94 H 12 113/50 L 04/29/19 03:00 94 H 12 110/48 L 04/29/19 02:13 94 H 12 04/29/19 02:00 93 H 13 109/48 L 04/29/19 01:00 92 H 14 100/45 L 04/29/19 00:00 36.9 C 91 H 14 105/46 L 04/28/19 23:00 90 14 107/45 L 04/28/19 22:20 90 12 04/28/19 22:00 90 14 101/42 L 04/28/19 21:00 89 14 105/44 L 04/28/19 20:00 36.7 C 86 12 115/52 L 04/28/19 19:43 85 12 04/28/19 19:00 85 91/53 L 04/28/19 18:50 86 04/28/19 18:45 85 82/48 L 04/28/19 18:40 86 04/28/19 18:33 87 85/46 L 04/28/19 18:31 87 82/51 L 04/28/19 18:30 88 04/28/19 18:20 92 H 04/28/19 18:16 95 H 143/67 H 04/28/19 18:10 92 H 92 H 20 143/69 H 04/28/19 18:01 102 H 169/84 H 04/28/19 18:00 92 H 94 H 20 169/84 H 04/28/19 17:50 36.6 C 92 H 91 H 19 195/86 H 04/28/19 11:14 36.8 C 92 H 22 156/86 H 04/28/19 08:00 84 BP Pulse Ox Pulse Ox 04/29/19 06:00 99 04/29/19 05:09 100 04/29/19 05:00 99 04/29/19 04:00 99 04/29/19 03:00 99 04/29/19 02:13 99 04/29/19 02:00 04/29/19 01:00 04/29/19 00:00 04/28/19 23:00 04/28/19 22:20 04/28/19 22:00 04/28/19 21:00 04/28/19 20:00 99 04/28/19 19:43 04/28/19 19:00 04/28/19 18:50 04/28/19 18:45 04/28/19 18:40 04/28/19 18:33 04/28/19 18:31 04/28/19 18:30 04/28/19 18:20 04/28/19 18:16 04/28/19 18:10 143/67 H 04/28/19 18:01 04/28/19 18:00 195/73 H 04/28/19 17:50 04/28/19 11:14 94 04/28/19 08:00 Pain Intensity Head: Pain Intensity: 2 Medial Abdomen: Pain Intensity: 4 Notes Mental Status: alert / awake / arousable and participated in evaluation Patient Amnestic to Procedure: Yes Nausea / Vomiting: adequately controlled Pain: adequately controlled Airway Patency, RR, SpO2: see Notes below (patient still on ventilator but to be weaned and extubated today per RN. No issues overnight. VSS.) BP & HR: stable & adequate Hydration State: stable & adequate Anesthetic Complications: no major complications apparent
[2019-04-29] MEDS: LEVOTHYROXINE SODIUM 37.5 MCG in SYRINGE 0 ML IV SCH (08:31)
[2019-04-29] MEDS: HEPARIN SOD 5,000 UNIT/0.5 ML VIAL SQ SCH ×2 (08:32→21:24)
[2019-04-29] MEDS ORDERED: SODIUM CHLORIDE 0.9% 1000ML 1,000 ML IV PRN (08:48)
[2019-04-29] MEDS: fentaNYL citrate 100 MCG/2 ML VIAL IV PRN ×2 (09:06→15:06)
--- NOTE | 2019-04-29 09:08 | Critical Care Progress Note ---
Date of Service April 29, 2019 Assessment & Plan (1) Ischemic colitis: Neuro- awake. pain control. CV- HD stable. CAD, PVD Pulmonary- remains intubated after procedure. did well on SBT today and extubated ID- ischemic bowel s/p resection. continue piperacillin-tazobactam- renal dosed Renal- ESRD. dialysis per renal GI- NPO. 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 hgb stable heparin for DVT proph Endocrine- keep blood sugars <180. levothyroxine for hypothyroidism Dispo- ICU care post op and for ventilatory support I have personally spent 35 minutes of critical care time in the direct management of this patient. This is a life/limb threatening event. This includes time spent evaluating patient, direct bedside care, chart review, placing orders, interpretation of diagnostic studies, discussion with consultants, patient, and/or family members regarding treatment decisions, as well as other required patient management activities. This time is exclusive of all separately billable procedures, and teaching time and separate from and in addition to any other critical care service time. Subjective complaining of some pain at surgery site Physical Exam Physical Exam: Constitutional: Comfortable NAD on vent HEENT: normocephalic atraumatic. MMM. no cervical lymphadenopathy. pupils equal CV: RRR nl s1,s2 no murmurs rubs or gallops Lungs: clear to auscultation bilaterally. no accessory muscle use Abd: soft nontender distended LUISA drain with serosanginous Ext: trace edema. no cyanosis. eccymosis to L groin Skin: warm dry. venous stasis rash to lower ext Neuro: awake following commands. moving all extremities Psych: normal affect Results & Data Vital Signs (Past 12 Hours) Vital Signs Temp Pulse Pulse Resp BP BP Pulse Ox 04/29/19 08:00 37.2 C 94 H 18 145/78 H 98 04/29/19 07:00 94 H 13 143/81 H 99 04/29/19 06:00 94 H 14 136/78 99 04/29/19 05:09 95 H 17 100 04/29/19 05:00 94 H 14 122/50 L 99 04/29/19 04:00 37.2 C 94 H 12 113/50 L 99 04/29/19 03:00 94 H 12 110/48 L 99 04/29/19 02:13 94 H 12 99 04/29/19 02:00 93 H 13 109/48 L 99 04/29/19 01:00 92 H 14 100/45 L 99 04/29/19 00:00 36.9 C 91 H 14 105/46 L 99 04/28/19 23:00 90 14 107/45 L 99 04/28/19 22:20 90 12 99 04/28/19 22:00 90 14 101/42 L 99 Laboratory Results Laboratory Results - last 24 hr 04/28/19 04/28/19 04/28/19 06:52 13:48 15:56 WBC RBC Hgb POC Hgb 7.1 L Hct POC Hct 21 L MCV MCH MCHC RDW Std Deviation RDW Coeff of Jolanta Plt Count MPV Immature Gran % (Auto) Neut % (Auto) Lymph % (Auto) [place] % (Auto) Eos % (Auto) Baso % (Auto) Immature Gran # (Auto) Neut # (Auto) Lymph # (Auto) [place] # (Auto) Eos # (Auto) Baso # (Auto) Absolute Nucleated RBC Nucleated RBC % (auto) Sample Site POC pH POC pCO2 POC pO2 POC HCO3 POC Base Excess POC ABG O2 Sat Afshin Test O2 Delivery Device POC O2 Rate Minute Ventilation POC FiO2 Tidal Volume PEEP POC Sodium 131 L Sodium POC Potassium 4.4 Potassium POC Chloride 93 L Chloride Carbon Dioxide POC Total CO2 30 Anion Gap POC Anion Gap 14.0 L POC BUN 33 H BUN Creatinine POC Creatinine 7.0 H* Est Cr Clr Drug Dosing Est GFR ( Amer) Est GFR (Non-Af Amer) BUN/Creatinine Ratio Glucose POC Glucose POC Glucose (other) 107 H Calcium POC Ioniz Calcium Andre 1.10 L Procalcitonin 35.18 H Nasal Screen MRSA (PCR) Random Vancomycin Blood Type A Positive Antibody Screen POSITIVE A Antibody Identification Anti-E Crossmatch See Detail 04/28/19 04/28/19 04/28/19 20:01 20:04 23:30 WBC RBC Hgb POC Hgb Hct POC Hct MCV MCH MCHC RDW Std Deviation RDW Coeff of Jolanta Plt Count MPV Immature Gran % (Auto) Neut % (Auto) Lymph % (Auto) [place] % (Auto) Eos % (Auto) Baso % (Auto) Immature Gran # (Auto) Neut # (Auto) Lymph # (Auto) [place] # (Auto) Eos # (Auto) Baso # (Auto) Absolute Nucleated RBC Nucleated RBC % (auto) Sample Site Art Line POC pH 7.38 POC pCO2 44 POC pO2 218 H POC HCO3 26 H POC Base Excess 1.0 POC ABG O2 Sat 100.0 H Afshin Test NA O2 Delivery Device Ventilator POC O2 Rate 12 Minute Ventilation 5.7 POC FiO2 50 Tidal Volume 500 PEEP 5 POC Sodium Sodium POC Potassium Potassium POC Chloride Chloride Carbon Dioxide POC Total CO2 27 Anion Gap POC Anion Gap POC BUN BUN Creatinine POC Creatinine Est Cr Clr Drug Dosing Est GFR ( Amer) Est GFR (Non-Af Amer) BUN/Creatinine Ratio Glucose POC Glucose 95 POC Glucose (other) Calcium POC Ioniz Calcium Andre Procalcitonin Nasal Screen MRSA (PCR) Negative Random Vancomycin Blood Type Antibody Screen Antibody Identification Crossmatch 04/29/19 04/29/19 04/29/19 04:18 04:18 04:19 WBC 10.64 RBC 2.63 L Hgb 8.3 L POC Hgb Hct 24.9 L POC Hct MCV 94.7 MCH 31.6 MCHC 33.3 RDW Std Deviation 66.0 H RDW Coeff of Jolanta 19.3 H Plt Count 129 L MPV 9.5 Immature Gran % (Auto) 3.8 Neut % (Auto) 75.0 Lymph % (Auto) 4.4 [place] % (Auto) 14.6 Eos % (Auto) 2.1 Baso % (Auto) 0.1 Immature Gran # (Auto) 0.40 H Neut # (Auto) 7.99 H Lymph # (Auto) 0.47 L [place] # (Auto) 1.55 H Eos # (Auto) 0.22 Baso # (Auto) 0.01 Absolute Nucleated RBC 0.02 H Nucleated RBC % (auto) 0.2 Sample Site POC pH POC pCO2 POC pO2 POC HCO3 POC Base Excess POC ABG O2 Sat Afshin Test O2 Delivery Device POC O2 Rate Minute Ventilation POC FiO2 Tidal Volume PEEP POC Sodium Sodium 133 L POC Potassium Potassium 4.6 POC Chloride Chloride 96 L Carbon Dioxide 25 POC Total CO2 Anion Gap 12.0 H POC Anion Gap POC BUN BUN 43 H D Creatinine 7.54 H* D POC Creatinine Est Cr Clr Drug Dosing 11.3 Est GFR ( Amer) 7.5 Est GFR (Non-Af Amer) 6.5 BUN/Creatinine Ratio 5.7 L Glucose 88 POC Glucose POC Glucose (other) Calcium 8.3 L POC Ioniz Calcium Andre Procalcitonin Nasal Screen MRSA (PCR) Random Vancomycin 21.4 Blood Type Antibody Screen Antibody Identification Crossmatch PG Care Time/CCT Critical Care Time: Yes Total Critical Care Time: 35
[2019-04-29] MEDS ORDERED: EPOETIN ALFA 10,000 UNITS/ML VIAL IV SCH (09:30)
[2019-04-29] MEDS: ONDANSETRON INJ 2 MG/ML 2 ML VIAL IV PRN (10:51)
[2019-04-29] MEDS: PROMETHAZINE HCL 12.5 MG in SODIUM CHLORIDE 0.9% 50 ML IV PRN (11:30)
[2019-04-29] MEDS ORDERED: ONDANSETRON HCL 8 MG in DEXTROSE 5% 50 ML IV ONE (12:45)
--- NOTE | 2019-04-29 20:16 | Hospitalist Progress Note ---
Date of Service April 29, 2019 Assessment & Plan (1) Ischemic colitis: Presented with abd pain ongoing for about 1 week, N/V, persistent orthostatic hypotension contributing to ischemia Found to have ischemic colitis on CT on 04/27, lactate carlos enrique, spiked a fever, WBC count continued to rise, PCT continued to rise. 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 Tan-therefore no vascular intervention was indicated Now postop day #1 status post Subtotal colectomy with end ileostomy and Driss pouch by Dr. Restrepo during which the surgeon found necrotic bowel especially of the ascending and transverse colon and also removed part of the sigmoid colon Was on the mechanical vent overnight after the procedure and now extubated on 04/29 -Continue LUISA drain -Farmer catheter removed -Pain control with fentanyl as needed -Keep strict n.p.o. 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 (2) Fever: Patient spiked a fever the day after admission on 04/27 With nausea and vomiting day before and left lower lobe infiltrate on chest x- ray, initially suspected aspiration pneumonia, however now with known ischemic colitis as above Leukocytosis is now resolved postoperatively -Remains on Zosyn, but vancomycin has been discontinued as MRSA swab is negative -follow BCxs-NGTD -Acetaminophen as needed for fever (3) Aspiration pneumonia: Suspected aspiration pneumonia Secondary to nausea and vomiting on the day of admission With left lower lobe infiltrate seen on chest x-ray, fever, leukocytosis, elevated procalcitonin which was likely from ischemic colitis rather than a true PNA -Treatment as above with antibiotics Not requiring oxygen, would repeat chest x-ray eventually to ensure resolution of infiltrate (4) Nausea & vomiting: Initially thought to be from orthostasis and severe constipation Now known to be from ischemic colitis Still having some nausea in the postoperative period -Continue antiemetics prn (5) Abdominal pain: secondary to ischemic colitis and known postoperative pain (6) Orthostatic hypotension: Was on midodrine as an outpatient, long-standing for years, recently had the dose increased to 5 mg 4 times daily on dialysis days Had blood pressure down in the 60s systolic with dialysis on the day after admission which likely led to worsening of his ischemic colitis BPs are actually much improved now despite being off of midodrine since 04/27 -continue to hold midodrine due to ischemic colitis (7) Atrial fibrillation: Remains in normal sinus rhythm here -is on amiodarone every other day but currently on hold due to n.p.o. status -could give IV amiodarone if has issues with persistent Afib post-op -Follows with Dr. Araujo for cardiology -His Coreg was discontinued several weeks ago for low blood pressures Not on anticoagulation-unclear reason why -holding aspirin for surgery and is n.p.o. (8) Hx of CABG: Two-vessel CABG simultaneously with his MVR -holding po meds of aspirin, Plavix, statin -Not on beta-maxim due to hypotension as above -Would try to restart at least the aspirin possibly rectally if cannot take p.o. when possible if okay with general surgery (9) GERD (gastroesophageal reflux disease): -Is on omeprazole and Pepcid as an outpatient -Start IV Pepcid once daily for renal dosing while n.p.o. (10) Constipation: No bowel movement for 2 weeks prior to admission Had a multiple bowel movements on admission after bisacodyl suppository and Kayexalate (11) Hypothyroidism: TSH is stable -Continue levothyroxine IV (12) CAD (coronary artery disease): As above (13) ESRD (end stage renal disease) on dialysis: Appreciate nephrology consultation Had hemodialysis on 04/27 with removal of only 400 mL's of fluid, then again on 04/29 with removal of 1 L of fluid Tolerated dialysis and electrolytes are stable -Follow BMP -Restart PhosLo once eating again (14) Sepsis: As above, due to ischemic colitis, now resolving (15) Hyperkalemia: Potassium 5.8 on admission he was given calcium gluconate and Kayexalate. 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 He reports pain at the surgical site and some mild nausea requiring antiemetics throughout the day. He does have what he thinks is some heartburn that is been going on all day as well. There is some gas and stool along with serosanguineous drainage in his ostomy bag. Review of Systems Review of Systems: All systems reviewed & are unremarkable except as noted in HPI & below Complains of headache across the front of his head but declines anything for pain Physical Exam Constitutional: average body habitus; no acute distress Eyes: PERRL, conjunctivae normal, anicteric sclerae ENMT: external ear and nose normal, oropharynx normal Ears: no hearing impairment Neck: trachea midline, no thyromegaly Respiratory: normal respiratory effort, lungs clear to auscultation normal respiratory effort; no labored breathing Cardiovascular: Rate/Rhythm: regular rate and regular rhythm Heart Sounds: no murmur Extremities: + AV fistula (RUE); no edema Gastrointestinal (Abdomen): Inspection/Auscultation: + hypoactive bowel sounds; + abdomen abnormal to inspection (dressing in place in midline, ostomy bag with small amount of stool and serosanguineous drainage) and abdomen not distended Percussion/Palpation: + abdomen tender (At incisional sites) and abdomen soft; no guarding, abdomen not rigid and no abdominal mass LUISA drain in place Musculoskeletal: Extremities: extremities normal to inspection; no cyanosis and no clubbing Skin: no rashes, warm and dry Neurologic: moves all extremities and awake; no focal motor deficits Psychiatric: Orientation: alert (But a little lethargic), oriented to person and cooperative Results & Data Vital Signs (Past 12 Hours) Vital Signs Temp Pulse Pulse Resp BP BP Pulse Ox 04/29/19 18:00 89 16 140/63 93 04/29/19 17:00 88 16 126/62 93 04/29/19 16:00 37.2 C 88 16 94 04/29/19 15:00 86 16 123/60 96 04/29/19 14:00 87 16 110/55 L 93 04/29/19 13:40 37.2 C 85 128/45 L 04/29/19 13:30 94 H 91/31 L 04/29/19 13:15 90 105/62 04/29/19 13:00 90 16 105/62 93 04/29/19 12:45 90 91/36 L 04/29/19 12:30 90 104/35 L 04/29/19 12:15 88 102/33 L 04/29/19 12:00 89 16 92/56 L 97 04/29/19 11:45 84 98/34 L 04/29/19 11:30 85 104/38 L 04/29/19 11:15 86 104/37 L 04/29/19 11:00 85 16 107/61 99 04/29/19 10:45 83 112/61 04/29/19 10:30 87 125/42 L 04/29/19 10:15 86 145/52 H 04/29/19 10:00 86 18 142/72 H 99 04/29/19 09:45 85 160/55 H 04/29/19 09:15 37.2 C 85 04/29/19 09:00 86 16 150/78 H 100 04/29/19 08:45 16 Laboratory Results 04/29/19 04/29/19 04/29/19 Range/Units 11:49 04:19 04:18 WBC 10.64 (4.8-10.8) K/uL RBC 2.63 L (4.7-6.1) M/uL Hgb 8.3 L (14.0-18.0) g/dL Hct 24.9 L (42-52) % MCV 94.7 (80-100) fL MCH 31.6 (25-34) pg MCHC 33.3 (32-36) g/dL RDW Std Deviation 66.0 H (36.4-46.3) fL RDW Coeff of Jolanta 19.3 H (11.5-14.5) % Plt Count 129 L (130-400) K/uL MPV 9.5 (7.4-10.4) fL Immature Gran % (Auto) 3.8 % Neut % (Auto) 75.0 % Lymph % (Auto) 4.4 % [place] % (Auto) 14.6 % Eos % (Auto) 2.1 % Baso % (Auto) 0.1 % Immature Gran # (Auto) 0.40 H (0.00-0.02) K/uL Neut # (Auto) 7.99 H (1.4-6.5) K/uL Lymph # (Auto) 0.47 L (1.2-3.4) K/uL [place] # (Auto) 1.55 H (0.11-0.59) K/uL Eos # (Auto) 0.22 (0-0.5) K/uL Baso # (Auto) 0.01 (0-0.2) K/uL Absolute Nucleated RBC 0.02 H (0-0) K/uL Nucleated RBC % (auto) 0.2 % Sodium (136-145) mmol/L Potassium (3.5-5.1) mmol/L Chloride (98-107) mmol/L Carbon Dioxide (21-32) mmol/L Anion Gap (3-11) BUN (7-18) mg/dl Creatinine (0.6-1.4) mg/dl Est Cr Clr Drug Dosing ml/min Est GFR ( Amer) Est GFR (Non-Af Amer) BUN/Creatinine Ratio (10-20) Glucose (70-99) mg/dl POC Glucose 86 (70-99) Calcium (8.5-10.1) mg/dl Nasal Screen MRSA (PCR) (Negative) Random Vancomycin 21.4 mcg/ml Blood Type Antibody Screen Antibody Identification Crossmatch 04/29/19 04/28/19 04/28/19 Range/Units 04:18 23:30 20:01 WBC (4.8-10.8) K/uL RBC (4.7-6.1) M/uL Hgb (14.0-18.0) g/dL Hct (42-52) % MCV (80-100) fL MCH (25-34) pg MCHC (32-36) g/dL RDW Std Deviation (36.4-46.3) fL RDW Coeff of Jolanta (11.5-14.5) % Plt Count (130-400) K/uL MPV (7.4-10.4) fL Immature Gran % (Auto) % Neut % (Auto) % Lymph % (Auto) % [place] % (Auto) % Eos % (Auto) % Baso % (Auto) % Immature Gran # (Auto) (0.00-0.02) K/uL Neut # (Auto) (1.4-6.5) K/uL Lymph # (Auto) (1.2-3.4) K/uL [place] # (Auto) (0.11-0.59) K/uL Eos # (Auto) (0-0.5) K/uL Baso # (Auto) (0-0.2) K/uL Absolute Nucleated RBC (0-0) K/uL Nucleated RBC % (auto) % Sodium 133 L (136-145) mmol/L Potassium 4.6 (3.5-5.1) mmol/L Chloride 96 L (98-107) mmol/L Carbon Dioxide 25 (21-32) mmol/L Anion Gap 12.0 H (3-11) BUN 43 H D (7-18) mg/dl Creatinine 7.54 H* D (0.6-1.4) mg/dl Est Cr Clr Drug Dosing 11.3 ml/min Est GFR ( Amer) 7.5 Est GFR (Non-Af Amer) 6.5 BUN/Creatinine Ratio 5.7 L (10-20) Glucose 88 (70-99) mg/dl POC Glucose 95 (70-99) Calcium 8.3 L (8.5-10.1) mg/dl Nasal Screen MRSA (PCR) Negative (Negative) Random Vancomycin mcg/ml Blood Type Antibody Screen Antibody Identification Crossmatch 04/28/19 Range/Units 13:48 WBC (4.8-10.8) K/uL RBC (4.7-6.1) M/uL Hgb (14.0-18.0) g/dL Hct (42-52) % MCV (80-100) fL MCH (25-34) pg MCHC (32-36) g/dL RDW Std Deviation (36.4-46.3) fL RDW Coeff of Jolanta (11.5-14.5) % Plt Count (130-400) K/uL MPV (7.4-10.4) fL Immature Gran % (Auto) % Neut % (Auto) % Lymph % (Auto) % [place] % (Auto) % Eos % (Auto) % Baso % (Auto) % Immature Gran # (Auto) (0.00-0.02) K/uL Neut # (Auto) (1.4-6.5) K/uL Lymph # (Auto) (1.2-3.4) K/uL [place] # (Auto) (0.11-0.59) K/uL Eos # (Auto) (0-0.5) K/uL Baso # (Auto) (0-0.2) K/uL Absolute Nucleated RBC (0-0) K/uL Nucleated RBC % (auto) % Sodium (136-145) mmol/L Potassium (3.5-5.1) mmol/L Chloride (98-107) mmol/L Carbon Dioxide (21-32) mmol/L Anion Gap (3-11) BUN (7-18) mg/dl Creatinine (0.6-1.4) mg/dl Est Cr Clr Drug Dosing ml/min Est GFR ( Amer) Est GFR (Non-Af Amer) BUN/Creatinine Ratio (10-20) Glucose (70-99) mg/dl POC Glucose (70-99) Calcium (8.5-10.1) mg/dl Nasal Screen MRSA (PCR) (Negative) Random Vancomycin mcg/ml Blood Type A Positive Antibody Screen POSITIVE A Antibody Identification Anti-E Crossmatch See Detail PG Care Time/CCT Total # of Minutes Spent Total Time Spent with Patient: Total time spent is greater than 50% in coordination of care (as documented) at patient's floor/unit and/or counseling patient: (1) Atrial fibrillation Atrial fibrillation type: paroxysmal Qualified Code(s): I48.0 - Paroxysmal atrial fibrillation (2) Nausea & vomiting Vomiting Intractability: unspecified Vomiting type: unspecified Qualified Code(s): R11.2 - Nausea with vomiting, unspecified
[2019-04-29] MEDS ORDERED: FAMOTIDINE 20 MG in SYRINGE 3 ML IV SCH (21:00)
--- NOTE | 2019-04-29 21:41 | Nephrology Progress Note ---
Date of Service April 29, 2019 Assessment & Plan (1) ESRD (end stage renal disease) on dialysis: Patient on HD MWF. He tolerated HD well today. He had colectomy for ischemic colitis. Will continue minimal UF to avoid hypotension and worsening ischemia (2) Hyperkalemia: Improving with HD. K 4.1 recently (3) Nausea & vomiting: Likely in setting of ischemic colitis. Resolved after colectomy (4) Orthostatic hypotension: Avoid midodrine due to potential to worsen ischemia; consider lowering coreg dose if persistent. Subjective Patient seen and examined while on dialysis. he had colectomy and colostomy yesterday. has josephine incisional pain. No SOB. Review of Systems Review of Systems: All systems reviewed & are unremarkable except as noted in HPI & below Physical Exam Physical Exam: General exam: Appears comfortable, no acute distress HEENT: Pupils are equal and reactive to light Neck: No JVD, neck is supple trachea is midline Respiratory system: Clear breath sounds bilaterally. Gastrointestinal: Abdomen is soft, non distended, non tender, bowel sounds are present. Has colostomy bag CVS: Regular rate and rhythm. No murmurs, rubs or gallops Musculoskeletal: No joint or muscle tenderness Extremities: Non tender, no edema, peripheral pulses are present Neuro: Oriented, no tremors, no focal neurological deficits Skin: No rashes Results & Data Vital Signs (Past 12 Hours) Vital Signs Temp Pulse Pulse Resp BP BP Pulse Ox 04/29/19 21:00 88 141/64 H 92 04/29/19 20:51 04/29/19 20:00 37.0 C 88 143/71 H 04/29/19 19:13 88 04/29/19 19:00 88 140/68 04/29/19 18:00 89 16 140/63 93 04/29/19 17:00 88 16 126/62 93 04/29/19 16:00 37.2 C 88 16 94 04/29/19 15:00 86 16 123/60 96 04/29/19 14:00 87 16 110/55 L 93 04/29/19 13:40 37.2 C 85 128/45 L 04/29/19 13:30 94 H 91/31 L 04/29/19 13:15 90 105/62 04/29/19 13:00 90 16 105/62 93 04/29/19 12:45 90 91/36 L 04/29/19 12:30 90 104/35 L 04/29/19 12:15 88 102/33 L 04/29/19 12:00 89 16 92/56 L 97 04/29/19 11:45 84 98/34 L 04/29/19 11:30 85 104/38 L 04/29/19 11:15 86 104/37 L 04/29/19 11:00 85 16 107/61 99 04/29/19 10:45 83 112/61 04/29/19 10:30 87 125/42 L 04/29/19 10:15 86 145/52 H 04/29/19 10:00 86 18 142/72 H 99 04/29/19 09:45 85 160/55 H Pulse Ox 04/29/19 21:00 04/29/19 20:51 92 04/29/19 20:00 04/29/19 19:13 04/29/19 19:00 04/29/19 18:00 04/29/19 17:00 04/29/19 16:00 04/29/19 15:00 04/29/19 14:00 04/29/19 13:40 04/29/19 13:30 04/29/19 13:15 04/29/19 13:00 04/29/19 12:45 04/29/19 12:30 04/29/19 12:15 04/29/19 12:00 04/29/19 11:45 04/29/19 11:30 04/29/19 11:15 04/29/19 11:00 04/29/19 10:45 04/29/19 10:30 04/29/19 10:15 04/29/19 10:00 04/29/19 09:45 Laboratory Results Laboratory Results - last 24 hr 04/28/19 04/28/19 04/29/19 13:48 23:30 04:18 WBC RBC Hgb Hct MCV MCH MCHC RDW Std Deviation RDW Coeff of Jolanta Plt Count MPV Immature Gran % (Auto) Neut % (Auto) Lymph % (Auto) [place] % (Auto) Eos % (Auto) Baso % (Auto) Immature Gran # (Auto) Neut # (Auto) Lymph # (Auto) [place] # (Auto) Eos # (Auto) Baso # (Auto) Absolute Nucleated RBC Nucleated RBC % (auto) Sodium 133 L Potassium 4.6 Chloride 96 L Carbon Dioxide 25 Anion Gap 12.0 H BUN 43 H D Creatinine 7.54 H* D Est Cr Clr Drug Dosing 11.3 Est GFR ( Amer) 7.5 Est GFR (Non-Af Amer) 6.5 BUN/Creatinine Ratio 5.7 L Glucose 88 POC Glucose Calcium 8.3 L Nasal Screen MRSA (PCR) Negative Random Vancomycin Blood Type A Positive Antibody Screen POSITIVE A Antibody Identification Anti-E Crossmatch See Detail 04/29/19 04/29/19 04/29/19 04:18 04:19 11:49 WBC 10.64 RBC 2.63 L Hgb 8.3 L Hct 24.9 L MCV 94.7 MCH 31.6 MCHC 33.3 RDW Std Deviation 66.0 H RDW Coeff of Jolanta 19.3 H Plt Count 129 L MPV 9.5 Immature Gran % (Auto) 3.8 Neut % (Auto) 75.0 Lymph % (Auto) 4.4 [place] % (Auto) 14.6 Eos % (Auto) 2.1 Baso % (Auto) 0.1 Immature Gran # (Auto) 0.40 H Neut # (Auto) 7.99 H Lymph # (Auto) 0.47 L [place] # (Auto) 1.55 H Eos # (Auto) 0.22 Baso # (Auto) 0.01 Absolute Nucleated RBC 0.02 H Nucleated RBC % (auto) 0.2 Sodium Potassium Chloride Carbon Dioxide Anion Gap BUN Creatinine Est Cr Clr Drug Dosing Est GFR ( Amer) Est GFR (Non-Af Amer) BUN/Creatinine Ratio Glucose POC Glucose 86 Calcium Nasal Screen MRSA (PCR) Random Vancomycin 21.4 Blood Type Antibody Screen Antibody Identification Crossmatch (1) Nausea & vomiting Vomiting Intractability: unspecified Vomiting type: unspecified Qualified Code(s): R11.2 - Nausea with vomiting, unspecified
[2019-04-30 04:34] LABS: Hemoglobin 7.6 g/dL (14.0-18.0); Mean Corpuscular Volume 95.4 fL (80-100); Mean Platelet Volume 8.9 fL (7.4-10.4); Nucleated RBC # (auto) 0.04 K/uL (0-0); Nucleated RBC % (auto) 0.3 %; Platelet Count 129 K/uL (130-400); RDW Coefficient of Variation 18.3 % (11.5-14.5); RDW Standard Deviation 63.7 fL (36.4-46.3); Red Blood Count 2.41 M/uL (4.7-6.1); White Blood Count 12.16 K/uL (4.8-10.8)
[2019-04-30 05:09] LABS: Albumin Level 2.2 gm/dl (3.4-5.0); BUN Creatinine Ratio 5.2 (10-20); Bilirubin Direct 0.3 mg/dl (0-0.2); Bilirubin,Total 0.8 mg/dl (0.2-1); Calcium 8.2 mg/dl (8.5-10.1); Creatinine Clr Calc Pharmacy 15.2 ml/min; Est GFR (African American) 11.1; Est GFR (Non-African American) 9.5; Magnesium 2.1 mg/dl (1.8-2.4); Phosphorus 4.7 mg/dl (2.5-4.9); Potassium 3.8 mmol/L (3.5-5.1)
[2019-04-30] MEDS: PIPERACILLIN/TAZOBACTAM 3.375 GM in DEXTROSE 5% 100 ML IV SCH ×2 (05:50→17:39)
--- NOTE | 2019-04-30 07:44 | Progress Note ---
Date of Service April 30, 2019 Assessment & Plan (1) Necrosis of colon: improved over 24 hrs- min nausea, no NG positive fluid balance, Hct down some- not unexpected - no evidence of hemorrhage abd soft, incision intact- try clear liquids transfuse per med/ neph pt actually doing better than I expected Subjective see a/p Results & Data Vital Signs (Past 12 Hours) Vital Signs Temp Pulse Resp BP Pulse Ox Pulse Ox 04/30/19 06:00 84 16 163/69 H 99 04/30/19 05:00 85 18 164/75 H 99 04/30/19 04:00 86 20 155/72 H 97 04/30/19 03:00 87 15 150/72 H 97 04/30/19 02:00 86 19 160/76 H 98 04/30/19 01:00 86 17 162/76 H 99 04/30/19 00:00 37.0 C 85 18 158/70 H 97 04/29/19 23:32 85 04/29/19 23:00 86 18 147/67 H 99 04/29/19 22:00 86 16 159/64 H 98 04/29/19 21:00 88 141/64 H 92 04/29/19 20:51 92 04/29/19 20:00 37.0 C 88 143/71 H
--- NOTE | 2019-04-30 08:11 | Critical Care Progress Note ---
Date of Service April 30, 2019 Assessment & Plan (1) Ischemic colitis: Neuro- awake. pain control. confusing likely delerium CV- HD stable. CAD, PVD Pulmonary- extubated yesterday doing well on NC. titrate off for sat >92% ID- ischemic bowel s/p resection. continue piperacillin-tazobactam- renal dosed Renal- ESRD. dialysis per renal GI- clears per surgery. 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 transfused for hgb <7. heparin for DVT proph Endocrine- keep blood sugars <180. levothyroxine for hypothyroidism Dispo- ok to [facility] out of ICU Subjective complaining of nausea yesterday confused at times Physical Exam Physical Exam: Constitutional: Comfortable NAD on vent HEENT: normocephalic atraumatic. MMM. CV: RRR nl s1,s2 no murmurs rubs or gallops Lungs: clear to auscultation bilaterally. no accessory muscle use Abd: soft nontender distended LUISA drain Ext: trace edema. no cyanosis. eccymosis to L groin Skin: warm dry. venous stasis rash to lower ext Neuro: awake but confused. moving all extremities Results & Data Vital Signs (Past 12 Hours) Vital Signs Temp Pulse Resp BP Pulse Ox Pulse Ox 04/30/19 06:00 84 16 163/69 H 99 04/30/19 05:00 85 18 164/75 H 99 04/30/19 04:00 86 20 155/72 H 97 04/30/19 03:00 87 15 150/72 H 97 04/30/19 02:00 86 19 160/76 H 98 04/30/19 01:00 86 17 162/76 H 99 04/30/19 00:00 37.0 C 85 18 158/70 H 97 04/29/19 23:32 85 04/29/19 23:00 86 18 147/67 H 99 04/29/19 22:00 86 16 159/64 H 98 04/29/19 21:00 88 141/64 H 92 04/29/19 20:51 92 Laboratory Results Laboratory Results - last 24 hr 04/28/19 04/29/19 04/30/19 13:48 11:49 02:02 WBC RBC Hgb Hct MCV MCH MCHC RDW Std Deviation RDW Coeff of Jolanta Plt Count MPV Absolute Nucleated RBC Nucleated RBC % (auto) Sodium Potassium Chloride Carbon Dioxide Anion Gap BUN Creatinine Est Cr Clr Drug Dosing Est GFR ( Amer) Est GFR (Non-Af Amer) BUN/Creatinine Ratio Glucose POC Glucose 86 83 Calcium Phosphorus Magnesium Total Bilirubin Direct Bilirubin AST ALT Alkaline Phosphatase Total Protein Albumin Blood Type A Positive Antibody Screen POSITIVE A Antibody Identification Anti-E Crossmatch See Detail 04/30/19 04/30/19 04/30/19 03:55 03:55 05:54 WBC 12.16 H RBC 2.41 L Hgb 7.6 L Hct 23.0 L MCV 95.4 MCH 31.5 MCHC 33.0 RDW Std Deviation 63.7 H RDW Coeff of Jolanta 18.3 H Plt Count 129 L MPV 8.9 Absolute Nucleated RBC 0.04 H Nucleated RBC % (auto) 0.3 Sodium 132 L Potassium 3.8 D Chloride 92 L Carbon Dioxide 29 Anion Gap 11.0 BUN 28 H Creatinine 5.46 H* D Est Cr Clr Drug Dosing 15.2 Est GFR ( Amer) 11.1 Est GFR (Non-Af Amer) 9.5 BUN/Creatinine Ratio 5.2 L Glucose 78 POC Glucose 86 Calcium 8.2 L Phosphorus 4.7 Magnesium 2.1 Total Bilirubin 0.8 Direct Bilirubin 0.3 H AST 22 ALT 7 L Alkaline Phosphatase 90 Total Protein 6.0 L Albumin 2.2 L Blood Type Antibody Screen Antibody Identification Crossmatch
[2019-04-30] MEDS: HEPARIN SOD 5,000 UNIT/0.5 ML VIAL SQ SCH ×2 (09:19→21:11)
[2019-04-30] MEDS: LEVOTHYROXINE SODIUM 37.5 MCG in SYRINGE 0 ML IV SCH (09:19)
[2019-04-30] MEDS: fentaNYL citrate 100 MCG/2 ML VIAL IV PRN (09:23)
--- NOTE | 2019-04-30 09:58 | Nephrology Progress Note ---
Date of Service April 30, 2019 Assessment & Plan (1) ESRD (end stage renal disease) on dialysis: Patient on HD MWF. He tolerated HD well yesterday. Next HD will be on Thursday. He had colectomy for ischemic colitis. Will continue minimal UF during HD to avoid hypotension and worsening ischemia (2) Hyperkalemia: Improving with HD. . Renal diet when he starts to eat (3) Nausea & vomiting: Likely in setting of ischemic colitis. Resolved after colectomy (4) Orthostatic hypotension: BP is better, on the high side partly due to pain. Avoid midodrine in setting of ischemic bowels. Subjective ESRD patient seen in follow up. he is s/p colectomy and colostomy. He has a lot of pain due to surgery. has been allowed oral sips. No SOB. Tolerated HD yesterday Review of Systems Review of Systems: All systems reviewed & are unremarkable except as noted in HPI & below Physical Exam Physical Exam: General exam: Appears comfortable, no acute distress HEENT: Pupils are equal and reactive to light Neck: No JVD, neck is supple trachea is midline Respiratory system: Clear breath sounds bilaterally. Gastrointestinal: Abdomen is soft, non distended, non tender, bowel sounds are present. has colostomy with bloody contents CVS: Regular rate and rhythm. No murmurs, rubs or gallops Musculoskeletal: No joint or muscle tenderness Extremities: Non tender, no edema, peripheral pulses are present Neuro: Oriented, no tremors, no focal neurological deficits Skin: No rashes Results & Data Vital Signs (Past 12 Hours) Vital Signs Temp Pulse Resp BP Pulse Ox 04/30/19 09:00 91 H 16 154/74 H 97 04/30/19 08:00 86 16 147/70 H 98 04/30/19 07:00 86 16 164/80 H 93 04/30/19 06:00 84 16 163/69 H 99 04/30/19 05:00 85 18 164/75 H 99 04/30/19 04:00 86 20 155/72 H 97 04/30/19 03:00 87 15 150/72 H 97 04/30/19 02:00 86 19 160/76 H 98 04/30/19 01:00 86 17 162/76 H 99 04/30/19 00:00 37.0 C 85 18 158/70 H 97 04/29/19 23:32 85 04/29/19 23:00 86 18 147/67 H 99 04/29/19 22:00 86 16 159/64 H 98 Laboratory Results Laboratory Results - last 24 hr 04/29/19 04/30/19 04/30/19 11:49 02:02 03:55 WBC 12.16 H RBC 2.41 L Hgb 7.6 L Hct 23.0 L MCV 95.4 MCH 31.5 MCHC 33.0 RDW Std Deviation 63.7 H RDW Coeff of Jolanta 18.3 H Plt Count 129 L MPV 8.9 Absolute Nucleated RBC 0.04 H Nucleated RBC % (auto) 0.3 Sodium Potassium Chloride Carbon Dioxide Anion Gap BUN Creatinine Est Cr Clr Drug Dosing Est GFR ( Amer) Est GFR (Non-Af Amer) BUN/Creatinine Ratio Glucose POC Glucose 86 83 Calcium Phosphorus Magnesium Total Bilirubin Direct Bilirubin AST ALT Alkaline Phosphatase Total Protein Albumin 04/30/19 04/30/19 03:55 05:54 WBC RBC Hgb Hct MCV MCH MCHC RDW Std Deviation RDW Coeff of Jolanta Plt Count MPV Absolute Nucleated RBC Nucleated RBC % (auto) Sodium 132 L Potassium 3.8 D Chloride 92 L Carbon Dioxide 29 Anion Gap 11.0 BUN 28 H Creatinine 5.46 H* D Est Cr Clr Drug Dosing 15.2 Est GFR ( Amer) 11.1 Est GFR (Non-Af Amer) 9.5 BUN/Creatinine Ratio 5.2 L Glucose 78 POC Glucose 86 Calcium 8.2 L Phosphorus 4.7 Magnesium 2.1 Total Bilirubin 0.8 Direct Bilirubin 0.3 H AST 22 ALT 7 L Alkaline Phosphatase 90 Total Protein 6.0 L Albumin 2.2 L (1) Nausea & vomiting Vomiting Intractability: unspecified Vomiting type: unspecified Qualified Code(s): R11.2 - Nausea with vomiting, unspecified
--- NOTE | 2019-04-30 16:48 | Hospitalist Progress Note ---
Date of Service April 30, 2019 Assessment & Plan (1) Ischemic colitis: Presented with abd pain ongoing for about 1 week, N/V, persistent orthostatic hypotension contributing to ischemia Found to have ischemic colitis on CT on 04/27, lactate carlos enrique, spiked a fever, WBC count continued to rise, PCT continued to rise. 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 Tan-therefore no vascular intervention was indicated Now postop day #2 status post Subtotal colectomy with end ileostomy and Driss pouch by Dr. Restrepo during which the surgeon found necrotic bowel especially of the ascending and transverse colon and also removed part of the sigmoid colon Was on the mechanical vent overnight after the procedure and then extubated on 04/29 -Doing very well, was advanced to clear liquids today and is tolerating -Postoperative management as per surgery -Continue to follow serial labs,CMP,CBC, CMP, magnesium, phosphorus -He is not on any maintenance IV fluids due to being a dialysis patient -Appreciate general surgery management -Appreciate hospital coder management -Was out of bed to chair -Is stable for transfer out of the ICU (2) Fever: Patient spiked a fever the day after admission on 04/27 With nausea and vomiting day before and left lower lobe infiltrate on chest x- ray, initially suspected aspiration pneumonia, however now with known ischemic colitis as above Leukocytosis was resolved postoperatively, but now is back up to 12 again, remains afebrile -Remains on Zosyn, but vancomycin has been discontinued as MRSA swab is negative -follow BCxs-NGTD -Acetaminophen as needed for fever (3) Aspiration pneumonia: Suspected aspiration pneumonia as above Secondary to nausea and vomiting on the day of admission With left lower lobe infiltrate seen on chest x-ray, fever, leukocytosis, elevated procalcitonin which was likely from ischemic colitis rather than a true PNA -Treatment as above with antibiotics Not requiring oxygen, would repeat chest x-ray eventually to ensure resolution of infiltrate (4) Nausea & vomiting: Initially thought to be from orthostasis and severe constipation Now known to be from ischemic colitis Now much improved and tolerating clear liquids -Continue antiemetics prn (5) Abdominal pain: secondary to ischemic colitis and known postoperative pain-improved, only required 1 dose of fentanyl today -Has a lot of problems with opioids-DC fentanyl -IV Tylenol as needed for pain (6) Orthostatic hypotension: Was on midodrine as an outpatient, long-standing for years, recently had the dose increased to 5 mg 4 times daily on dialysis days Had blood pressure down in the 60s systolic with dialysis on the day after admission which likely led to worsening of his ischemic colitis BPs are actually much improved now despite being off of midodrine since 04/27 -continue to hold midodrine due to ischemic colitis (7) Atrial fibrillation: Remains in normal sinus rhythm here -Can restart amiodarone now that tolerating p.o. -Follows with Dr. Araujo for cardiology-not consulted here -His Coreg was discontinued several weeks ago for low blood pressures Not on anticoagulation-unclear reason why -holding aspirin due to recent surgery-we will discuss with surgery about timing of restarting this (8) Hx of CABG: Two-vessel CABG simultaneously with his MVR -holding po meds of aspirin, Plavix due to recent surgery, but can restart statin -Not on beta-maxim due to hypotension as above -Would try to restart at least the aspirin possibly if okay with general surgery tomorrow (9) GERD (gastroesophageal reflux disease): -Tolerating p.o.-start back on Protonix 40 mill grams once daily and Pepcid 20 mg once daily (10) Constipation: No bowel movement for 2 weeks prior to admission Had a multiple bowel movements on admission after bisacodyl suppository and Kayexalate (11) Hypothyroidism: TSH is stable -Convert back to p.o. levothyroxine (12) CAD (coronary artery disease): As above (13) ESRD (end stage renal disease) on dialysis: Appreciate nephrology consultation Had hemodialysis on 04/27 with removal of only 400 mL's of fluid, then again on 04/29 with removal of 1 L of fluid Tolerated dialysis and electrolytes are stable -Follow BMP -Restart PhosLo now that he is tolerating p.o. (14) Sepsis: As above, due to ischemic colitis, now resolved (15) Hyperkalemia: Potassium 5.8 on admission he was given calcium gluconate and Kayexalate. 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 Still some abdominal pain, no nausea. He is tolerating clears. No chest pain or shortness of breath. Blood pressures have been very well controlled. Telemetry with normal sinus rhythm. I discussed the case with the general surgeon and the hospital coder. Review of Systems Review of Systems: All systems reviewed & are unremarkable except as noted in HPI & below Physical Exam Constitutional: average body habitus; no acute distress Eyes: PERRL, conjunctivae normal, anicteric sclerae ENMT: external ear and nose normal, oropharynx normal Ears: no hearing impairment Neck: trachea midline, no thyromegaly Respiratory: normal respiratory effort, lungs clear to auscultation Cardiovascular: Rate/Rhythm: regular rate and regular rhythm Heart Sounds: no murmur Extremities: + AV fistula (RUE); no edema Gastrointestinal (Abdomen): normal bowel sounds, soft, nontender, no hepatosplenomegaly Inspection/Auscultation: + abdomen abnormal to inspection (dressing in place in midline, ostomy bag with small amount of stool and serosanguineous drainage) and abdomen not distended Percussion/Palpation: + abdomen tender (At incisional sites) and abdomen soft; no guarding, abdomen not rigid and no abdominal mass Musculoskeletal: Extremities: extremities normal to inspection; no cyanosis and no clubbing Skin: no rashes, warm and dry Neurologic: moves all extremities and awake; no focal motor deficits Psychiatric: A+Ox3, euthymic affect Orientation: oriented to person and cooperative Genitourinary: no testicular masses, no penis abnormality Results & Data Vital Signs (Past 12 Hours) Vital Signs Temp Pulse Pulse Pulse Resp BP BP 04/30/19 15:00 90 18 149/72 H 04/30/19 14:09 37.0 C 85 95 H 128/45 L 04/30/19 14:00 89 18 143/75 H 04/30/19 13:00 91 H 16 139/71 04/30/19 12:00 91 H 18 124/62 04/30/19 11:00 91 H 18 132/63 04/30/19 10:00 88 18 142/71 H 04/30/19 09:00 91 H 16 154/74 H 04/30/19 08:00 86 16 147/70 H 04/30/19 07:00 86 16 164/80 H 04/30/19 06:00 84 16 163/69 H 04/30/19 05:00 85 18 164/75 H Pulse Ox 04/30/19 15:00 97 04/30/19 14:09 04/30/19 14:00 96 04/30/19 13:00 93 04/30/19 12:00 98 04/30/19 11:00 95 04/30/19 10:00 98 04/30/19 09:00 97 04/30/19 08:00 98 04/30/19 07:00 93 04/30/19 06:00 99 04/30/19 05:00 99 Laboratory Results 04/30/19 04/30/19 04/30/19 Range/Units 05:54 03:55 03:55 WBC 12.16 H (4.8-10.8) K/uL RBC 2.41 L (4.7-6.1) M/uL Hgb 7.6 L (14.0-18.0) g/dL Hct 23.0 L (42-52) % MCV 95.4 (80-100) fL MCH 31.5 (25-34) pg MCHC 33.0 (32-36) g/dL RDW Std Deviation 63.7 H (36.4-46.3) fL RDW Coeff of Jolanta 18.3 H (11.5-14.5) % Plt Count 129 L (130-400) K/uL MPV 8.9 (7.4-10.4) fL Absolute Nucleated RBC 0.04 H (0-0) K/uL Nucleated RBC % (auto) 0.3 % Sodium 132 L (136-145) mmol/L Potassium 3.8 D (3.5-5.1) mmol/L Chloride 92 L (98-107) mmol/L Carbon Dioxide 29 (21-32) mmol/L Anion Gap 11.0 (3-11) BUN 28 H (7-18) mg/dl Creatinine 5.46 H* D (0.6-1.4) mg/dl Est Cr Clr Drug Dosing 15.2 ml/min Est GFR ( Amer) 11.1 Est GFR (Non-Af Amer) 9.5 BUN/Creatinine Ratio 5.2 L (10-20) Glucose 78 (70-99) mg/dl POC Glucose 86 (70-99) Calcium 8.2 L (8.5-10.1) mg/dl Phosphorus 4.7 (2.5-4.9) mg/dl Magnesium 2.1 (1.8-2.4) mg/dl Total Bilirubin 0.8 (0.2-1) mg/dl Direct Bilirubin 0.3 H (0-0.2) mg/dl AST 22 (15-37) U/L ALT 7 L (12-78) U/L Alkaline Phosphatase 90 (45-117) U/L Total Protein 6.0 L (6.4-8.2) gm/dl Albumin 2.2 L (3.4-5.0) gm/dl 04/30/19 Range/Units 02:02 WBC (4.8-10.8) K/uL RBC (4.7-6.1) M/uL Hgb (14.0-18.0) g/dL Hct (42-52) % MCV (80-100) fL MCH (25-34) pg MCHC (32-36) g/dL RDW Std Deviation (36.4-46.3) fL RDW Coeff of Jolanta (11.5-14.5) % Plt Count (130-400) K/uL MPV (7.4-10.4) fL Absolute Nucleated RBC (0-0) K/uL Nucleated RBC % (auto) % Sodium (136-145) mmol/L Potassium (3.5-5.1) mmol/L Chloride (98-107) mmol/L Carbon Dioxide (21-32) mmol/L Anion Gap (3-11) BUN (7-18) mg/dl Creatinine (0.6-1.4) mg/dl Est Cr Clr Drug Dosing ml/min Est GFR ( Amer) Est GFR (Non-Af Amer) BUN/Creatinine Ratio (10-20) Glucose (70-99) mg/dl POC Glucose 83 (70-99) Calcium (8.5-10.1) mg/dl Phosphorus (2.5-4.9) mg/dl Magnesium (1.8-2.4) mg/dl Total Bilirubin (0.2-1) mg/dl Direct Bilirubin (0-0.2) mg/dl AST (15-37) U/L ALT (12-78) U/L Alkaline Phosphatase (45-117) U/L Total Protein (6.4-8.2) gm/dl Albumin (3.4-5.0) gm/dl PG Care Time/CCT Total # of Minutes Spent Total Time Spent with Patient: Total time spent is greater than 50% in coordination of care (as documented) at patient's floor/unit and/or counseling patient: (1) Atrial fibrillation Atrial fibrillation type: paroxysmal Qualified Code(s): I48.0 - Paroxysmal atrial fibrillation (2) Nausea & vomiting Vomiting Intractability: unspecified Vomiting type: unspecified Qualified Code(s): R11.2 - Nausea with vomiting, unspecified
[2019-04-30] MEDS: FAMOTIDINE 20 MG TAB PO SCH (21:19)
[2019-05-01 05:59] LABS: Hemoglobin 7.2 g/dL (14.0-18.0); Mean Corpuscular Hgb Conc 32.7 g/dL (32-36); Mean Corpuscular Volume 95.2 fL (80-100); Mean Platelet Volume 8.7 fL (7.4-10.4); Nucleated RBC # (auto) 0.04 K/uL (0-0); Nucleated RBC % (auto) 0.4 %; Platelet Count 144 K/uL (130-400); Red Blood Count 2.31 M/uL (4.7-6.1); White Blood Count 12.05 K/uL (4.8-10.8)
[2019-05-01] MEDS: PIPERACILLIN/TAZOBACTAM 3.375 GM in DEXTROSE 5% 100 ML IV SCH ×2 (06:10→17:47)
[2019-05-01] MEDS: LEVOTHYROXINE SODIUM 75 MCG TABLET PO SCH (06:13)
[2019-05-01 06:29] LABS: BUN Creatinine Ratio 5.8 (10-20); Calcium 8.2 mg/dl (8.5-10.1); Creatinine Clr Calc Pharmacy 10.6 ml/min; Est GFR (African American) 7.2; Est GFR (Non-African American) 6.2; Magnesium 2.2 mg/dl (1.8-2.4); Phosphorus 4.7 mg/dl (2.5-4.9); Potassium 3.7 mmol/L (3.5-5.1)
[2019-05-01 07:09] LABS: Basophils # (auto) 0.12 K/uL (0-0.2); Eosinophils # (auto) 0.76 K/uL (0-0.5); Eosinophils % (auto) 6.3 %; Immature Granulocytes # (auto) 1.09 K/uL (0.00-0.02); Lymphocytes # (auto) 1.05 K/uL (1.2-3.4); Lymphocytes % (auto) 8.7 %; Monocytes # (auto) 1.95 K/uL (0.11-0.59); Monocytes % (auto) 16.2 %; Neutrophils # (auto) 7.08 K/uL (1.4-6.5); Neutrophils % (auto) 58.8 %; RBC Morphology Unremarkable
--- NOTE | 2019-05-01 07:28 | Progress Note ---
Date of Service May 01, 2019 Assessment & Plan (1) Necrosis of colon: no acute chgs- dorcas some clears H/H sl dec- no acute bleeding adv to full liquids, cont IV atbx, will need extended care Subjective see a/p Results & Data Vital Signs (Past 12 Hours) Vital Signs Temp Pulse Pulse Pulse Resp BP Pulse Ox 05/01/19 03:13 36.9 C 82 21 135/70 92 04/30/19 23:40 36.9 C 88 19 143/72 H 92 04/30/19 22:20 88 04/30/19 20:00 37.2 C 90 18 136/69 92
[2019-05-01] MEDS: ATORVASTATIN 40 MG TAB PO SCH (08:14)
[2019-05-01] MEDS: CALCIUM ACETATE 667 MG CAP PO SCH ×3 (08:14→17:39)
[2019-05-01] MEDS: HEPARIN SOD 5,000 UNIT/0.5 ML VIAL SQ SCH ×2 (08:14→21:24)
[2019-05-01] MEDS: AMIODARONE 200 MG TAB PO SCH (08:14)
[2019-05-01] MEDS: PARoxetine HCl 20 MG TAB PO SCH (08:15)
[2019-05-01] MEDS: PREGABALIN 75 MG CAP PO SCH (08:15)
[2019-05-01] MEDS: PANTOprazole 40 MG TAB PO SCH (08:15)
--- NOTE | 2019-05-01 10:38 | Nephrology Progress Note ---
Date of Service May 01, 2019 Assessment & Plan (1) ESRD (end stage renal disease) on dialysis: Patient on HD MWF. He tolerated HD well on Thursday. Next HD will be on Thursday for 4 hours and to get UF of 2 L. He had colectomy for ischemic colitis. Will continue minimal UF during HD to avoid hypotension and worsening ischemia (2) Hyperkalemia: Improving with HD. Potassium 3.7 today. Renal diet when he starts to eat (3) Orthostatic hypotension: BP is better, on the high side partly due to pain. Avoid midodrine in setting of ischemic bowels. (4) Anemia, chronic renal failure: Patient with anemia of renal disease. Hemoglobin of 7.2 today. Will give Venofer 100 mg and Epogen 20,000 with dialysis tomorrow. Subjective ESRD patient seen in follow-up. He was transferred out from the ICU to the floor. He feels better this morning denies any shortness of breath. His pain is controlled. He is still on a liquid diet. Review of Systems Review of Systems: All systems reviewed & are unremarkable except as noted in HPI & below Physical Exam Physical Exam: General exam: Appears comfortable, no acute distress HEENT: Pupils are equal and reactive to light Neck: No JVD, neck is supple trachea is midline Respiratory system: Clear breath sounds bilaterally. Gastrointestinal: Abdomen is soft, non distended, non tender, bowel sounds are present. Colostomy bag present CVS: Regular rate and rhythm. No murmurs, rubs or gallops Musculoskeletal: No joint or muscle tenderness Extremities: Non tender, no edema, peripheral pulses are present Neuro: Oriented, no tremors, no focal neurological deficits Skin: No rashes Access: Right upper arm AV fistula with good bruit. Results & Data Vital Signs (Past 12 Hours) Vital Signs Temp Pulse Resp BP Pulse Ox 05/01/19 07:45 36.6 C 90 22 159/77 H 94 05/01/19 03:13 36.9 C 82 21 135/70 92 04/30/19 23:40 36.9 C 88 19 143/72 H 92 Laboratory Results Laboratory Results - last 24 hr 05/01/19 05/01/19 05:36 05:36 WBC 12.05 H RBC 2.31 L Hgb 7.2 L Hct 22.0 L MCV 95.2 MCH 31.2 MCHC 32.7 RDW Std Deviation 63.0 H RDW Coeff of Jolanta 18.0 H Plt Count 144 MPV 8.7 Immature Gran % (Auto) 9.0 Neut % (Auto) 58.8 Lymph % (Auto) 8.7 [place] % (Auto) 16.2 Eos % (Auto) 6.3 Baso % (Auto) 1.0 Immature Gran # (Auto) 1.09 H Neut # (Auto) 7.08 H Lymph # (Auto) 1.05 L [place] # (Auto) 1.95 H Eos # (Auto) 0.76 H Baso # (Auto) 0.12 Absolute Nucleated RBC 0.04 H Nucleated RBC % (auto) 0.4 RBC Morphology Unremarkable Sodium 131 L Potassium 3.7 Chloride 94 L Carbon Dioxide 25 Anion Gap 12.0 H BUN 46 H D Creatinine 7.81 H* D Est Cr Clr Drug Dosing 10.6 Est GFR ( Amer) 7.2 Est GFR (Non-Af Amer) 6.2 BUN/Creatinine Ratio 5.8 L Glucose 83 Calcium 8.2 L Phosphorus 4.7 Magnesium 2.2
--- NOTE | 2019-05-01 16:15 | Hospitalist Progress Note ---
Date of Service May 01, 2019 Assessment & Plan (1) Ischemic colitis: Presented with abd pain ongoing for about 1 week, N/V, persistent orthostatic hypotension contributing to ischemia Found to have ischemic colitis on CT on 04/27, lactate carlos enrique, spiked a fever, WBC count continued to rise, PCT continued to rise. 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 Tan-therefore no vascular intervention was indicated Now postop day #3 status post Subtotal colectomy with end ileostomy and Driss pouch by Dr. Restrepo during which the surgeon found necrotic bowel especially of the ascending and transverse colon and also removed part of the sigmoid colon Was on the mechanical vent overnight after the procedure and then extubated on 04/29 -Continues to be doing remarkably well, is tolerating clear liquids and has good output in his ileostomy -Continue postoperative management as per surgery -Continue to follow serial labs,CMP,CBC, CMP, magnesium, phosphorus -He is not on any maintenance IV fluids due to being a dialysis patient -Appreciate general surgery management -Continue out of bed to chair and ambulation as tolerated -Pain control as needed with Tylenol (2) Fever: Patient spiked a fever the day after admission on 04/27 With nausea and vomiting day before and left lower lobe infiltrate on chest x- ray, initially suspected aspiration pneumonia, however now with known ischemic colitis as above Leukocytosis was resolved postoperatively, but now is back up and remains stable at 12, remains afebrile -Remains on Zosyn, but vancomycin has since been discontinued as MRSA swab is negative -follow BCxs-NGTD -Acetaminophen as needed for fever (3) Aspiration pneumonia: Suspected aspiration pneumonia as above Secondary to nausea and vomiting on the day of admission With left lower lobe infiltrate seen on chest x-ray, fever, leukocytosis, elevated procalcitonin which was likely from ischemic colitis rather than a true PNA -Treatment as above with antibiotics Not requiring oxygen, would repeat chest x-ray eventually to ensure resolution of infiltrate (4) Nausea & vomiting: Initially thought to be from orthostasis and severe constipation Now known to be from ischemic colitis Now much improved and tolerating clear liquids -Continue antiemetics prn (5) Abdominal pain: secondary to ischemic colitis and known postoperative pain-improved, only using Tylenol as needed -Has a lot of problems with opioids in the past -IV Tylenol as needed for pain (6) Orthostatic hypotension: Was on midodrine as an outpatient, long-standing for years, recently had the dose increased to 5 mg 4 times daily on dialysis days approximately 2 weeks prior to admission Had blood pressure down in the 60s systolic with dialysis on the day after admission which likely led to worsening of his ischemic colitis BPs are actually much improved now despite being off of midodrine since 04/27 -continue to hold midodrine due to ischemic colitis (7) Atrial fibrillation: Was in normal sinus rhythm here throughout the entire hospital stay until the evening of 05/01 when he went into atrial fibrillation with rates in the 80s -Continue amiodarone 200 mg every other day as before -He cannot tolerate beta-blockers due to severe orthostatic hypotension -Follows with Dr. Araujo for cardiology-not consulted here -His Coreg was discontinued several weeks ago for low blood pressures Not on anticoagulation-unclear reason why, but would not start at this time due to significant anemia and recent surgery -holding aspirin due to recent surgery-we will discuss with surgery about timing of restarting this (8) Hx of CABG: Two-vessel CABG simultaneously with his MVR -holding po meds of aspirin, Plavix due to recent surgery, but can restart statin -Not on beta-maxim due to hypotension as above -Would try to restart at least the aspirin possibly if okay with general surgery-we will need to discuss with surgery (9) GERD (gastroesophageal reflux disease): -Continue Protonix and Pepcid 20 mg (10) Constipation: No bowel movement for 2 weeks prior to admission Had a multiple bowel movements on admission after bisacodyl suppository and Kayexalate upon admission Resolved (11) Hypothyroidism: TSH is stable -Continue levothyroxine (12) CAD (coronary artery disease): As above (13) ESRD (end stage renal disease) on dialysis: Appreciate nephrology consultation Had hemodialysis on 04/27 with removal of only 400 mL's of fluid, then again on 04/29 with removal of 1 L of fluid Tolerated dialysis and electrolytes are stable -Follow BMP -Restarted PhosLo now that he is tolerating p.o. and eating -Continues on Thursday hemodialysis schedule (14) Sepsis: As above, due to ischemic colitis, now resolved (15) Hyperkalemia: Potassium 5.8 on admission he was given calcium gluconate and Kayexalate. 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 No nausea at all and is tolerating a clear liquids diet. He has good output in his ileostomy bag. He has minimal abdomina l pain just with movement secondary to his incision. He denies chest pain or shortness of breath. He denies headache. He has been sitting in a chair now for several hours and feels good. Telemetry with normal sinus rhythm with PVCs with rates in the 70s to 80s in the last 24 hours, however chest at the end of my shift, the nurse informed me that he was back in atrial fibrillation with rates controlled in the 80s and his blood pressure was in the 120s over 60s. Review of Systems Review of Systems: All systems reviewed & are unremarkable except as noted in HPI & below Physical Exam Constitutional: average body habitus; no acute distress Eyes: PERRL, conjunctivae normal, anicteric sclerae ENMT: Ears: no hearing impairment Neck: trachea midline, no thyromegaly Respiratory: normal respiratory effort, lungs clear to auscultation no labored breathing Cardiovascular: Rate/Rhythm: regular rate and regular rhythm Heart Sounds: no murmur Extremities: + AV fistula (RUE); no edema Gastrointestinal (Abdomen): Inspection/Auscultation: normal bowel sounds; + abdomen abnormal to inspection (dressing in place in midline, ostomy bag with large amount of liquid stool and serosanguineous drainage) and abdomen not distended Percussion/Palpation: + abdomen tender (At incisional site very minimally) and abdomen soft; no guarding, abdomen not rigid and no abdominal mass Musculoskeletal: Extremities: + extremities abnormal to inspection (Right foot with transmetatarsal amputation), no cyanosis and no clubbing Skin: no rashes, warm and dry Neurologic: moves all extremities and awake; no focal motor deficits Psychiatric: A+Ox3, euthymic affect Results & Data Vital Signs (Past 12 Hours) Vital Signs Temp Pulse Pulse Pulse Resp BP Pulse Ox 05/01/19 15:14 36.7 C 85 22 120/67 96 05/01/19 12:58 88 05/01/19 11:19 36.7 C 85 22 130/70 92 05/01/19 07:45 36.6 C 90 22 159/77 H 94 Laboratory Results 05/01/19 05/01/19 04/28/19 Range/Units 05:36 05:36 13:48 WBC 12.05 H (4.8-10.8) K/uL RBC 2.31 L (4.7-6.1) M/uL Hgb 7.2 L (14.0-18.0) g/dL Hct 22.0 L (42-52) % MCV 95.2 (80-100) fL MCH 31.2 (25-34) pg MCHC 32.7 (32-36) g/dL RDW Std Deviation 63.0 H (36.4-46.3) fL RDW Coeff of Jolanta 18.0 H (11.5-14.5) % Plt Count 144 (130-400) K/uL MPV 8.7 (7.4-10.4) fL Immature Gran % (Auto) 9.0 % Neut % (Auto) 58.8 % Lymph % (Auto) 8.7 % Summers % (Auto) 16.2 % Eos % (Auto) 6.3 % Baso % (Auto) 1.0 % Immature Gran # (Auto) 1.09 H (0.00-0.02) K/uL Neut # (Auto) 7.08 H (1.4-6.5) K/uL Lymph # (Auto) 1.05 L (1.2-3.4) K/uL Summers # (Auto) 1.95 H (0.11-0.59) K/uL Eos # (Auto) 0.76 H (0-0.5) K/uL Baso # (Auto) 0.12 (0-0.2) K/uL Absolute Nucleated RBC 0.04 H (0-0) K/uL Nucleated RBC % (auto) 0.4 % RBC Morphology Unremarkable Sodium 131 L (136-145) mmol/L Potassium 3.7 (3.5-5.1) mmol/L Chloride 94 L (98-107) mmol/L Carbon Dioxide 25 (21-32) mmol/L Anion Gap 12.0 H (3-11) BUN 46 H D (7-18) mg/dl Creatinine 7.81 H* D (0.6-1.4) mg/dl Est Cr Clr Drug Dosing 10.6 ml/min Est GFR ( Amer) 7.2 Est GFR (Non-Af Amer) 6.2 BUN/Creatinine Ratio 5.8 L (10-20) Glucose 83 (70-99) mg/dl Calcium 8.2 L (8.5-10.1) mg/dl Phosphorus 4.7 (2.5-4.9) mg/dl Magnesium 2.2 (1.8-2.4) mg/dl Crossmatch See Detail PG Care Time/CCT Total # of Minutes Spent Total Time Spent with Patient: Total time spent is greater than 50% in coordination of care (as documented) at patient's floor/unit and/or counseling patient: (1) Atrial fibrillation Atrial fibrillation type: paroxysmal Qualified Code(s): I48.0 - Paroxysmal atrial fibrillation (2) Nausea & vomiting Vomiting Intractability: unspecified Vomiting type: unspecified Qualified Code(s): R11.2 - Nausea with vomiting, unspecified
[2019-05-01] MEDS: FAMOTIDINE 20 MG TAB PO SCH (21:24)
[2019-05-02] MEDS: PIPERACILLIN/TAZOBACTAM 3.375 GM in DEXTROSE 5% 100 ML IV SCH ×2 (06:26→17:23)
[2019-05-02] MEDS: LEVOTHYROXINE SODIUM 75 MCG TABLET PO SCH (06:26)
[2019-05-02] MEDS ORDERED: IRON SUCROSE 100 MG in SYRINGE 0 ML IV SCH (07:00)
[2019-05-02] MEDS ORDERED: EPOETIN ALFA 10,000 UNITS/ML VIAL IV SCH (07:00)
[2019-05-02] MEDS ORDERED: SODIUM CHLORIDE 0.9% 1000ML 1,000 ML IV PRN (07:00)
[2019-05-02 07:52] LABS: Hematocrit (blood only) 21.9 % (42-52); Hemoglobin 7.3 g/dL (14.0-18.0); Mean Corpuscular Hgb Conc 33.3 g/dL (32-36); Mean Corpuscular Volume 96.5 fL (80-100); Mean Platelet Volume 8.1 fL (7.4-10.4); Nucleated RBC # (auto) 0.04 K/uL (0-0); Nucleated RBC % (auto) 0.3 %; Platelet Count 136 K/uL (130-400); RDW Standard Deviation 62.3 fL (36.4-46.3); Red Blood Count 2.27 M/uL (4.7-6.1); White Blood Count 13.39 K/uL (4.8-10.8)
[2019-05-02] MEDS: CALCIUM ACETATE 667 MG CAP PO SCH ×3 (09:06→17:21)
--- NOTE | 2019-05-02 11:18 | Surgery Progress Note ---
Date of Service May 02, 2019 Assessment & Plan (1) Necrosis of colon: H&H stable 05/16, WBC 13 begin low fiber diet cont IV atbx PT/OT will need extended care Subjective no complaints, wants more to eat, some difficulty getting out of bed Physical Exam Gastrointestinal (Abdomen): Inspection/Auscultation: abdomen not distended Percussion/Palpation: abdomen soft liquid ileostomy output, stoma pink Results & Data Vital Signs (Past 12 Hours) Vital Signs Temp Pulse Pulse Resp BP Pulse Ox 05/02/19 07:05 36.8 C 84 18 152/75 H 96 05/02/19 03:50 36.7 C 83 17 105/61 93 05/01/19 23:37 37.1 C 84 17 107/64 91
[2019-05-02] MEDS: HEPARIN SOD 5,000 UNIT/0.5 ML VIAL SQ SCH ×2 (14:17→20:14)
[2019-05-02] MEDS: PARoxetine HCl 20 MG TAB PO SCH (14:17)
[2019-05-02] MEDS: ATORVASTATIN 40 MG TAB PO SCH (14:17)
[2019-05-02] MEDS: PANTOprazole 40 MG TAB PO SCH (14:17)
[2019-05-02] MEDS: PREGABALIN 75 MG CAP PO SCH (14:20)
--- NOTE | 2019-05-02 18:13 | Nephrology Progress Note ---
Date of Service May 02, 2019 Assessment & Plan (1) ESRD (end stage renal disease) on dialysis: Patient on HD MWF. He tolerated HD well today for 4 hours and net UF of 2 L. Next HD will be on Thursday for 4 hours and to get UF of 2 L. He had colectomy for ischemic colitis. Will continue minimal UF during HD to avoid hypotension and worsening ischemia (2) Hyperkalemia: Improving with HD. Patient still on a liquid diet. Renal diet when he starts to eat (3) Orthostatic hypotension: BP is better, remained stable during dialysis. Avoid midodrine in setting of ischemic bowels. (4) Anemia, chronic renal failure: Patient with anemia of renal disease. Hemoglobin of 7.3 today. He got Venofer 100 mg and Epogen 20,000 with dialysis. Subjective Patient with ESRD seen in follow-up. Patient was seen and examined while on dialysis this morning in the dialysis unit. He denied any shortness of breath. His pain is controlled with medications. No leg swelling. Review of Systems Review of Systems: All systems reviewed & are unremarkable except as noted in HPI & below Physical Exam Physical Exam: General exam: Appears comfortable, no acute distress HEENT: Pupils are equal and reactive to light Neck: No JVD, neck is supple trachea is midline Respiratory system: Clear breath sounds bilaterally. Gastrointestinal: Abdomen is soft, non distended, non tender, bowel sounds are present. Colostomy bag present CVS: Regular rate and rhythm. No murmurs, rubs or gallops Musculoskeletal: No joint or muscle tenderness Extremities: Non tender, no edema, peripheral pulses are present Neuro: Oriented, no tremors, no focal neurological deficits Skin: No rashes Access: AV fistula Results & Data Vital Signs (Past 12 Hours) Vital Signs Temp Pulse Pulse Pulse Resp BP BP 05/02/19 16:29 75 05/02/19 15:05 36.7 C 71 17 113/61 05/02/19 13:53 36.8 C 74 18 133/77 05/02/19 13:45 37.0 C 67 125/66 05/02/19 13:00 70 122/63 05/02/19 12:40 70 132/70 05/02/19 12:20 72 106/51 L 05/02/19 12:00 68 123/62 05/02/19 11:40 72 128/69 05/02/19 11:20 72 116/58 L 05/02/19 11:00 76 138/70 05/02/19 10:40 74 114/62 05/02/19 10:20 75 115/64 05/02/19 10:00 78 126/67 05/02/19 09:40 79 114/64 05/02/19 09:22 83 149/83 H 05/02/19 09:12 36.6 C 84 05/02/19 09:00 83 05/02/19 07:05 36.8 C 84 18 152/75 H Pulse Ox 05/02/19 16:29 05/02/19 15:05 92 05/02/19 13:53 93 05/02/19 13:45 05/02/19 13:00 05/02/19 12:40 05/02/19 12:20 05/02/19 12:00 05/02/19 11:40 05/02/19 11:20 05/02/19 11:00 05/02/19 10:40 05/02/19 10:20 05/02/19 10:00 05/02/19 09:40 05/02/19 09:22 05/02/19 09:12 05/02/19 09:00 05/02/19 07:05 96 Laboratory Results Laboratory Results - last 24 hr 05/02/19 07:32 WBC 13.39 H RBC 2.27 L Hgb 7.3 L Hct 21.9 L MCV 96.5 MCH 32.2 MCHC 33.3 RDW Std Deviation 62.3 H RDW Coeff of Jolanta 18.0 H Plt Count 136 MPV 8.1 Absolute Nucleated RBC 0.04 H Nucleated RBC % (auto) 0.3
[2019-05-02] MEDS: FAMOTIDINE 20 MG TAB PO SCH (20:18)
--- NOTE | 2019-05-02 21:22 | Hospitalist Progress Note ---
Date of Service May 02, 2019 Assessment & Plan (1) Ischemic colitis: Presented with abd pain ongoing for about 1 week, N/V, persistent orthostatic hypotension contributing to ischemia Found to have ischemic colitis on CT on 04/27, lactate carlos enrique, spiked a fever, WBC count continued to rise, PCT continued to rise. 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 Tan-therefore no vascular intervention was indicated Now postop day #4 status post Subtotal colectomy with end ileostomy and Driss pouch by Dr. Restrepo during which the surgeon found necrotic bowel especially of the ascending and transverse colon and also removed part of the sigmoid colon Was on the mechanical vent overnight after the procedure and then extubated on 04/29 -Continues to be doing remarkably well, he is hungry today, advanced to low residue diet by surgery -Continue postoperative management as per surgery -Continue out of bed to chair and ambulation as tolerated -Pain control as needed with Tylenol he is having function from ostomy (2) Fever: Patient spiked a fever the day after admission on 04/27 With nausea and vomiting day before and left lower lobe infiltrate on chest x- ray, initially suspected aspiration pneumonia, however now with known ischemic colitis as above Leukocytosis was resolved postoperatively, but now is back up and remains stable at 13k, remains afebrile -Remains on Zosyn, but vancomycin has since been discontinued as MRSA swab is negative -follow BCxs-NGTD -Acetaminophen as needed for fever (3) Aspiration pneumonia: Suspected aspiration pneumonia as above Secondary to nausea and vomiting on the day of admission With left lower lobe infiltrate seen on chest x-ray, fever, leukocytosis, elevated procalcitonin which was likely from ischemic colitis rather than a true PNA -Treatment as above with antibiotics Not requiring oxygen, would repeat chest x-ray eventually to ensure resolution of infiltrate complete 7 days total of antibiotics, on 05/04 (4) Nausea & vomiting: Initially thought to be from orthostasis and severe constipation Now known to be from ischemic colitis Now much improved and tolerating clear liquids, advance diet today -Continue antiemetics prn (5) Abdominal pain: secondary to ischemic colitis and known postoperative pain-improved, only using Tylenol as needed (6) Orthostatic hypotension: Was on midodrine as an outpatient, long-standing for years, recently had the dose increased to 5 mg 4 times daily on dialysis days approximately 2 weeks prior to admission Had blood pressure down in the 60s systolic with dialysis on the day after admission which likely led to worsening of his ischemic colitis BPs are actually much improved now despite being off of midodrine since 04/27 -continue to hold midodrine due to ischemic colitis BP is 108/62 (7) Atrial fibrillation: Was in normal sinus rhythm here throughout the entire hospital stay until the evening of 05/01 when he went into atrial fibrillation with rates in the 80s -Continue amiodarone 200 mg every other day as before He cannot tolerate beta-blockers due to severe orthostatic hypotension -Follows with Dr. Araujo for cardiology-not consulted here -His Coreg was discontinued several weeks ago for low blood pressures Not on anticoagulation-unclear reason why, but would not start at this time due to significant anemia and recent surgery -holding aspirin due to recent surgery-we will discuss with surgery about timing of restarting this (8) Hx of CABG: Two-vessel CABG simultaneously with his MVR -holding po meds of aspirin, Plavix due to recent surgery, but can restart statin -Not on beta-maxim due to hypotension as above -Would try to restart at least the aspirin possibly if okay with general surgery-we will need to discuss with surgery (9) GERD (gastroesophageal reflux disease): -Continue Protonix and Pepcid 20 mg (10) Constipation: No bowel movement for 2 weeks prior to admission Had a multiple bowel movements on admission after bisacodyl suppository and Kayexalate upon admission Resolved (11) Hypothyroidism: TSH is stable -Continue levothyroxine (12) CAD (coronary artery disease): As above (13) ESRD (end stage renal disease) on dialysis: Appreciate nephrology consultation Had hemodialysis on 04/27 with removal of only 400 mL's of fluid, then again on 04/29 with removal of 1 L of fluid Tolerated dialysis and electrolytes are stable -Follow BMP -Restarted PhosLo now that he is tolerating p.o. and eating -Continues on Thursday hemodialysis schedule (14) Sepsis: As above, due to ischemic colitis, now resolved (15) Hyperkalemia: Potassium 5.8 on admission he was given calcium gluconate and Kayexalate. 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 which may make compatibility difficult and may require extra time to find compatible blood if needed in the future consider type/screen tomorrow, plan for possible transfusion on Thu with HD (17) Ileostomy in place: Noted, as above Will need ostomy teaching (18) DVT prophylaxis: Heparin subcu, add on SCDs and MARJORIE hose which also help with any orthostasis Disposition-should remain in PCU PT/OT consults placed, will likely need rehab placement when medically stable DNR/DNI Subjective patient feeling well this morning, he was at dialysis all morning took 4.5 hours, removed 2 liters of UF patient was really fatigued afterwards, refused therapy he did admit that he was really hungry, his abdominal pain was tolerable, no nausea or vomiting some output in ostomy reviewed labs, Hb down a little further to 7.3, discussed possible need for transfusion, he would not be opposed if needed WBC is 13k appreciate input from general surgery, diet advanced appreciate recommendations from nephrology Review of Systems Review of Systems: All systems reviewed & are unremarkable except as noted in HPI & below Constitutional: + fatigue and + weakness; no fever, no chills and no sweats Respiratory: no cough, no dyspnea, no dyspnea on exertion and no wheezing Cardiovascular: no chest pain and no edema Gastrointestinal: + abdominal pain (mild); no nausea, no vomiting, no constipation and no diarrhea/loose stools Physical Exam Constitutional: WD/WN, vitals as above Eyes: PERRL, conjunctivae normal, anicteric sclerae ENMT: external ear and nose normal, oropharynx normal Neck: trachea midline, no thyromegaly Respiratory: normal respiratory effort, lungs clear to auscultation Cardiovascular: RRR, no murmur, no edema Gastrointestinal (Abdomen): normal bowel sounds, soft, nontender, no hepatosplenomegaly (ostomy in place, good function today) Musculoskeletal: no cyanosis or clubbing, extremities motor strength 5/5 (s/p right toe amputation) Skin: no rashes, warm and dry Neurologic: patellar DTR's 2+ bilat, sensation intact and PERRL, EOMI, accommodation nl, no face palsy, no dysarthria Psychiatric: A+Ox3, euthymic affect Lymphatic: no cervical or axillary lymphadenopathy Results & Data Vital Signs (Past 12 Hours) Vital Signs Temp Pulse Pulse Pulse Resp BP BP 05/02/19 19:37 37.1 C 80 17 108/62 05/02/19 16:29 75 05/02/19 15:05 36.7 C 71 17 113/61 05/02/19 13:53 36.8 C 74 18 133/77 05/02/19 13:45 37.0 C 67 125/66 05/02/19 13:00 70 122/63 05/02/19 12:40 70 132/70 05/02/19 12:20 72 106/51 L 05/02/19 12:00 68 123/62 05/02/19 11:40 72 128/69 05/02/19 11:20 72 116/58 L 05/02/19 11:00 76 138/70 05/02/19 10:40 74 114/62 05/02/19 10:20 75 115/64 05/02/19 10:00 78 126/67 05/02/19 09:40 79 114/64 05/02/19 09:22 83 149/83 H Pulse Ox 05/02/19 19:37 92 05/02/19 16:29 05/02/19 15:05 92 05/02/19 13:53 93 05/02/19 13:45 05/02/19 13:00 05/02/19 12:40 05/02/19 12:20 05/02/19 12:00 05/02/19 11:40 05/02/19 11:20 05/02/19 11:00 05/02/19 10:40 05/02/19 10:20 05/02/19 10:00 05/02/19 09:40 05/02/19 09:22 Laboratory Results Laboratory Results - last 24 hr 05/02/19 07:32 WBC 13.39 H RBC 2.27 L Hgb 7.3 L Hct 21.9 L MCV 96.5 MCH 32.2 MCHC 33.3 RDW Std Deviation 62.3 H RDW Coeff of Jolanta 18.0 H Plt Count 136 MPV 8.1 Absolute Nucleated RBC 0.04 H Nucleated RBC % (auto) 0.3 Medications Administered Current Inpatient Medications Albuterol (Ventolin Hfa) 2 puffs INH Q6H PRN PRN Reason: Shortness Of Breath Stop: 05/26/19 20:16 Amiodarone HCl (Cordarone) 200 mg PO Q2D [place] Stop: 05/31/19 08:59 Last Admin: 05/01/19 08:14 Dose: 200 mg Documented by: Atorvastatin Calcium (Lipitor) 40 mg PO QAM [place] Stop: 05/31/19 08:59 Last Admin: 05/02/19 14:17 Dose: 40 mg Documented by: Calcium Acetate (Phoslo) 667 mg PO TIDM [place] Stop: 05/31/19 07:59 Last Admin: 05/02/19 17:21 Dose: 667 mg Documented by: Famotidine (Pepcid) 20 mg PO HS [place] Stop: 05/30/19 20:59 Last Admin: 05/02/19 20:18 Dose: 20 mg Documented by: Heparin Sodium (Porcine) (Heparin Sodium (Porcine)) 5,000 units SQ Q12 [place] Stop: 05/26/19 20:59 Last Admin: 05/02/19 20:14 Dose: 5,000 units Documented by: Acetaminophen (Ofirmev) 1,000 mg in 100 mls @ 400 mls/hr IV Q8H PRN PRN Reason: Pain Stop: 05/30/19 19:01 Promethazine HCl 12.5 mg/ (Sodium Chloride) 50.5 mls @ 202 mls/hr IV Q6H PRN PRN Reason: Nausea And Vomiting Stop: 05/26/19 20:16 Last Infusion: 04/29/19 11:56 Dose: Infused Documented by: Piperacillin Sod/Tazobactam (Sod 3.375 gm/ Dextrose) 115 mls @ 28.75 mls/hr IV Q12H [facility]; Protocol Stop: 05/04/19 17:59 Last Infusion: 05/02/19 21:14 Dose: Infused Documented by: [facility]) [facility]: 05/31/19 06:29 Last Admin: 05/02/19 06:26 Dose: 75 mcg Documented by: Miscellaneous Information (Consult) 1 ea N/A UD PRN PRN Reason: Consult Stop: 05/27/19 10:22 Ondansetron HCl (Zofran) 4 mg IV Q6H PRN PRN Reason: Nausea Stop: 05/26/19 20:16 Last Admin: 04/29/19 10:51 Dose: 4 mg Documented by: Pantoprazole Sodium (Protonix) 40 mg PO [facility] Stop: 05/31/19 08:59 Last Admin: 05/02/19 14:17 Dose: 40 mg Documented by: Paroxetine HCl (Paxil) 20 mg PO [facility] Stop: 05/31/19 08:59 Last Admin: 05/02/19 14:17 Dose: 20 mg Documented by: Pregabalin (Lyrica) 75 mg PO [facility] Stop: 05/31/19 08:59 Last Admin: 05/02/19 14:20 Dose: 75 mg Documented by: PG Care Time/CCT Total # of Minutes Spent Total Time Spent with Patient: Total time spent is greater than 50% in coordination of care (as documented) at patient's floor/unit and/or counseling patient: (1) Nausea & vomiting Vomiting Intractability: unspecified Vomiting type: unspecified Qualified Code(s): R11.2 - Nausea with vomiting, unspecified (2) Atrial fibrillation Atrial fibrillation type: paroxysmal Qualified Code(s): I48.0 - Paroxysmal atrial fibrillation
[2019-05-03] MEDS: PIPERACILLIN/TAZOBACTAM 3.375 GM in DEXTROSE 5% 100 ML IV SCH ×2 (05:46→17:38)
[2019-05-03] MEDS: LEVOTHYROXINE SODIUM 75 MCG TABLET PO SCH (05:46)
[2019-05-03 05:59] LABS: Hematocrit (blood only) 21.9 % (42-52); Hemoglobin 7.3 g/dL (14.0-18.0); Mean Corpuscular Hgb Conc 33.3 g/dL (32-36); Mean Corpuscular Volume 96.9 fL (80-100); Mean Platelet Volume 8.4 fL (7.4-10.4); Nucleated RBC # (auto) 0.11 K/uL (0-0); Nucleated RBC % (auto) 0.7 %; Platelet Count 137 K/uL (130-400); RDW Coefficient of Variation 18.1 % (11.5-14.5); RDW Standard Deviation 62.2 fL (36.4-46.3); Red Blood Count 2.26 M/uL (4.7-6.1); White Blood Count 15.19 K/uL (4.8-10.8)
[2019-05-03 06:23] LABS: ALC (manual) 0.65 K/uL (1.2-3.4); Basophils # (manual) 0.14 K/uL (0-0.2); Basophils % (manual) 0.9 %; Eosinophils # (manual) 0.53 K/uL (0-0.5); Eosinophils % (manual) 3.5 %; Lymphocytes # (manual) 0.65 K/uL (1.2-3.4); Lymphocytes % (manual) 4.3 %; Metamyelocytes # (manual) 0.53 K/uL (0-0); Metamyelocytes % (manual) 3.5 %; Monocytes # (manual) 1.46 K/uL (0.11-0.59); Monocytes % (manual) 9.6 %; Myelocytes # (manual) 0.53 K/uL (0-0); Myelocytes % (manual) 3.5 %; Neutrophils % (manual) 74.7 %; RBC Morphology Unremarkable
[2019-05-03 06:46] LABS: BUN Creatinine Ratio 4.1 (10-20); Calcium 8.5 mg/dl (8.5-10.1); Creatinine Clr Calc Pharmacy 13.7 ml/min; Est GFR (African American) 9.7; Est GFR (Non-African American) 8.4; Potassium 3.3 mmol/L (3.5-5.1)
[2019-05-03] MEDS ORDERED: SODIUM CHLORIDE 0.9% 250 ML IV PRN (07:36)
[2019-05-03] MEDS: ACETAMINOPHEN 1,000 MG/100 ML VIAL IV PRN ×2 (07:40→19:43)
[2019-05-03] MEDS: CALCIUM ACETATE 667 MG CAP PO SCH ×3 (10:20→16:56)
[2019-05-03] MEDS: PANTOprazole 40 MG TAB PO SCH (10:20)
[2019-05-03] MEDS: PARoxetine HCl 20 MG TAB PO SCH (10:20)
[2019-05-03] MEDS: ATORVASTATIN 40 MG TAB PO SCH (10:21)
[2019-05-03] MEDS: AMIODARONE 200 MG TAB PO SCH (10:21)
[2019-05-03] MEDS: HEPARIN SOD 5,000 UNIT/0.5 ML VIAL SQ SCH ×2 (10:22→19:45)
[2019-05-03] MEDS: PREGABALIN 75 MG CAP PO SCH (10:32)
--- NOTE | 2019-05-03 13:36 | Progress Note ---
Date of Service May 03, 2019 Assessment & Plan (1) Necrosis of colon: ileostomy functioning- can adv diet to regular incision intact very weak- prob needs extended care cont atbx Subjective see a/p Results & Data Vital Signs (Past 12 Hours) Vital Signs Temp Pulse Pulse Pulse Resp BP Pulse Ox 05/03/19 11:25 36.7 C 80 16 101/58 L 97 05/03/19 08:00 78 05/03/19 07:23 36.7 C 78 16 119/64 93 05/03/19 04:31 36.9 C 70 19 107/62 92
[2019-05-03 14:06] LABS: Hematocrit (blood only) 22.5 % (42-52); Hemoglobin 7.5 g/dL (14.0-18.0)
--- NOTE | 2019-05-03 16:08 | Hospitalist Progress Note ---
Date of Service May 03, 2019 Assessment & Plan (1) Ischemic colitis: Presented with abd pain ongoing for about 1 week, N/V, persistent orthostatic hypotension contributing to ischemia Found to have ischemic colitis on CT on 04/27, lactate carlos enrique, spiked a fever, WBC count continued to rise, PCT continued to rise. 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 Tan-therefore no vascular intervention was indicated Now postop day #5 status post Subtotal colectomy with end ileostomy and Driss pouch by Dr. Restrepo during which the surgeon found necrotic bowel especially of the ascending and transverse colon and also removed part of the sigmoid colon Was on the mechanical vent overnight after the procedure and then extubated on 04/29 -Continues to be doing remarkably well, tolerating regular diet, no nausea, minimal abdominal pain, ostomy functioning -Continue postoperative management as per surgery -Continue out of bed to chair and ambulation as tolerated, PT/OT consulted -Pain control as needed with Tylenol anticipate needing rehab, he accepts this (2) Fever: Patient spiked a fever the day after admission on 04/27 With nausea and vomiting day before and left lower lobe infiltrate on chest x- ray, initially suspected aspiration pneumonia, however now with known ischemic colitis as above Leukocytosis was resolved postoperatively, but now is back up and remains stable at 13k, remains afebrile -Remains on Zosyn, but vancomycin has since been discontinued as MRSA swab is negative -follow BCxs-NGTD -Acetaminophen as needed for fever (3) Aspiration pneumonia: Suspected aspiration pneumonia as above Secondary to nausea and vomiting on the day of admission With left lower lobe infiltrate seen on chest x-ray, fever, leukocytosis, elevated procalcitonin which was likely from ischemic colitis rather than a true PNA -Treatment as above with antibiotics Not requiring oxygen, would repeat chest x-ray eventually to ensure resolution of infiltrate complete 7 days total of antibiotics, on 05/04 (4) Nausea & vomiting: Initially thought to be from orthostasis and severe constipation Now known to be from ischemic colitis Now much improved and tolerating regular diet -Continue antiemetics prn (5) Abdominal pain: secondary to ischemic colitis and known postoperative pain-improved, only using Tylenol as needed (6) Orthostatic hypotension: Was on midodrine as an outpatient, long-standing for years, recently had the dose increased to 5 mg 4 times daily on dialysis days approximately 2 weeks prior to admission Had blood pressure down in the 60s systolic with dialysis on the day after admission which likely led to worsening of his ischemic colitis BPs are actually much improved now despite being off of midodrine since 04/27 -continue to hold midodrine due to ischemic colitis BP is 119/55 (7) Atrial fibrillation: Was in normal sinus rhythm here throughout the entire hospital stay until the evening of 05/01 when he went into atrial fibrillation with rates in the 80s -Continue amiodarone 200 mg every other day as before He cannot tolerate beta-blockers due to severe orthostatic hypotension -Follows with Dr. Araujo for cardiology-not consulted here -His Coreg was discontinued several weeks ago for low blood pressures Not on anticoagulation-unclear reason why, but would not start at this time due to significant anemia and recent surgery -holding aspirin due to recent surgery-we will discuss with surgery about timing of restarting this (8) Hx of CABG: Two-vessel CABG simultaneously with his MVR -holding po meds of aspirin, Plavix due to recent surgery, but can restart statin -Not on beta-maxim due to hypotension as above -Would try to restart at least the aspirin possibly if okay with general surgery-we will need to discuss with surgery (9) GERD (gastroesophageal reflux disease): -Continue Protonix and Pepcid 20 mg (10) Constipation: No bowel movement for 2 weeks prior to admission Had a multiple bowel movements on admission after bisacodyl suppository and Kayexalate upon admission Resolved (11) Hypothyroidism: TSH is stable -Continue levothyroxine (12) CAD (coronary artery disease): As above (13) ESRD (end stage renal disease) on dialysis: Appreciate nephrology consultation Had hemodialysis on 04/27 with removal of only 400 mL's of fluid, then again on 04/29 with removal of 1 L of fluid Tolerated dialysis and electrolytes are stable -Follow BMP -Restarted PhosLo now that he is tolerating p.o. and eating -Continues on Thursday hemodialysis schedule per nephrology, only targeting 2L of UF per session to avoid hypotension (14) Sepsis: As above, due to ischemic colitis, now resolved (15) Hyperkalemia: Potassium 5.8 on admission he was given calcium gluconate and Kayexalate. 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 which may make compatibility difficult and may require extra time to find compatible blood if needed in the future consider type/screen tomorrow, plan for possible transfusion on Thu with HD (17) Ileostomy in place: Noted, as above Will need ostomy teaching (18) DVT prophylaxis: Heparin subcu, add on SCDs and MARJORIE hose which also help with any orthostasis Disposition-should remain in PCU PT/OT consults placed, will likely need rehab placement when medically stable DNR/DNI Subjective patient doing well, eating everything had a large breakfast with eggs, yepez, toast, coffee this morning lunch was chicken and noodles no nausea has mild abdominal pain but never severe ostomy is functioning, appreciate surgery note has a lot more energy today since he did not have HD reviewed labs, Hb was 7.3 this morning, up to 7.5 this afternoon he would be open to getting more blood if needed would want to do it with HD, possibly tomorrow Review of Systems Review of Systems: All systems reviewed & are unremarkable except as noted in HPI & below Physical Exam Constitutional: WD/WN, vitals as above Eyes: PERRL, conjunctivae normal, anicteric sclerae ENMT: external ear and nose normal, oropharynx normal Neck: trachea midline, no thyromegaly Respiratory: normal respiratory effort, lungs clear to auscultation Cardiovascular: RRR, no murmur, no edema Gastrointestinal (Abdomen): normal bowel sounds, soft, nontender, no hepatosplenomegaly (ostomy in place, good function today) Musculoskeletal: no cyanosis or clubbing, extremities motor strength 5/5 (s/p right toe amputation) Skin: no rashes, warm and dry Neurologic: patellar DTR's 2+ bilat, sensation intact and PERRL, EOMI, accommodation nl, no face palsy, no dysarthria Psychiatric: A+Ox3, euthymic affect Lymphatic: no cervical or axillary lymphadenopathy Results & Data Vital Signs (Past 12 Hours) Vital Signs Temp Pulse Pulse Pulse Resp BP Pulse Ox 05/03/19 15:39 36.7 C 82 18 132/62 92 05/03/19 11:25 36.7 C 80 16 101/58 L 97 05/03/19 08:00 78 05/03/19 07:23 36.7 C 78 16 119/64 93 05/03/19 04:31 36.9 C 70 19 107/62 92 Laboratory Results Laboratory Results - last 24 hr 05/03/19 05/03/19 05/03/19 05:43 05:43 13:55 WBC 15.19 H RBC 2.26 L Hgb 7.3 L 7.5 L Hct 21.9 L 22.5 L MCV 96.9 MCH 32.3 MCHC 33.3 RDW Std Deviation 62.2 H RDW Coeff of Jolanta 18.1 H Plt Count 137 MPV 8.4 Absolute Nucleated RBC 0.11 H Nucleated RBC % (auto) 0.7 Neutrophils % (Manual) 74.7 Lymphocytes % (Manual) 4.3 Monocytes % (Manual) 9.6 Eosinophils % (Manual) 3.5 Basophils % (Manual) 0.9 Metamyelocytes % (Man) 3.5 Myelocytes % (Man) 3.5 Neutrophils # (Manual) 11.35 H Total Absolute Neuts 11.35 H Lymphocytes # (Manual) 0.65 L Total Abs Lymphocytes 0.65 L Monocytes # (Manual) 1.46 H Eosinophils # (Manual) 0.53 H Basophils # (Manual) 0.14 Metamyelocytes # (Man) 0.53 H Myelocytes # (Manual) 0.53 H RBC Morphology Unremarkable Sodium 135 L Potassium 3.3 L Chloride 96 L Carbon Dioxide 32 Anion Gap 7.0 BUN 25 H Creatinine 6.08 H* Est Cr Clr Drug Dosing 13.7 Est GFR ( Amer) 9.7 Est GFR (Non-Af Amer) 8.4 BUN/Creatinine Ratio 4.1 L Glucose 95 Calcium 8.5 Blood Type Antibody Screen Antibody Identification Crossmatch 05/03/19 13:55 WBC RBC Hgb Hct MCV MCH MCHC RDW Std Deviation RDW Coeff of Jolanta Plt Count MPV Absolute Nucleated RBC Nucleated RBC % (auto) Neutrophils % (Manual) Lymphocytes % (Manual) Monocytes % (Manual) Eosinophils % (Manual) Basophils % (Manual) Metamyelocytes % (Man) Myelocytes % (Man) Neutrophils # (Manual) Total Absolute Neuts Lymphocytes # (Manual) Total Abs Lymphocytes Monocytes # (Manual) Eosinophils # (Manual) Basophils # (Manual) Metamyelocytes # (Man) Myelocytes # (Manual) RBC Morphology Sodium Potassium Chloride Carbon Dioxide Anion Gap BUN Creatinine Est Cr Clr Drug Dosing Est GFR ( Amer) Est GFR (Non-Af Amer) BUN/Creatinine Ratio Glucose Calcium Blood Type A Positive Antibody Screen POSITIVE A Antibody Identification Pending Crossmatch See Detail Medications Administered Current Inpatient Medications Albuterol (Ventolin Hfa) 2 puffs INH Q6H PRN PRN Reason: Shortness Of Breath Stop: 05/26/19 20:16 Amiodarone HCl (Cordarone) 200 mg PO Q2D [facility] Stop: 05/31/19 08:59 Last Admin: 05/03/19 10:21 Dose: 200 mg Documented by: Atorvastatin Calcium (Lipitor) 40 mg PO QAM [facility] Stop: 05/31/19 08:59 Last Admin: 05/03/19 10:21 Dose: 40 mg Documented by: Calcium Acetate (Phoslo) 667 mg PO TIDM [facility] Stop: 05/31/19 07:59 Last Admin: 05/03/19 12:18 Dose: 667 mg Documented by: Famotidine (Pepcid) 20 mg PO HS [facility] Stop: 05/30/19 20:59 Last Admin: 05/02/19 20:18 Dose: 20 mg Documented by: Heparin Sodium (Porcine) (Heparin Sodium (Porcine)) 5,000 units SQ Q12 [facility] Stop: 05/26/19 20:59 Last Admin: 05/03/19 10:22 Dose: 5,000 units Documented by: Acetaminophen (Ofirmev) 1,000 mg in 100 mls @ 400 mls/hr IV Q8H PRN PRN Reason: Pain Stop: 05/30/19 19:01 Last Infusion: 05/03/19 07:55 Dose: Infused Documented by: Sodium Chloride (Nss) 250 mls @ 15 mls/hr IV .[id number] PRN PRN Reason: For Transfusion Stop: 06/02/19 07:35 Promethazine HCl 12.5 mg/ (Sodium Chloride) 50.5 mls @ 202 mls/hr IV Q6H PRN PRN Reason: Nausea And Vomiting Stop: 05/26/19 20:16 Last Infusion: 04/29/19 11:56 Dose: Infused Documented by: Piperacillin Sod/Tazobactam (Sod 3.375 gm/ Dextrose) 115 mls @ 28.75 mls/hr IV Q12H [facility]; Protocol Stop: 05/04/19 17:59 Last Infusion: 05/03/19 09:45 Dose: Infused Documented by: Levothyroxine [facility]th[facility]) [facility] Stop: 05/31/19 06:29 Last Admin: 05/03/19 05:46 Dose: 75 mcg Documented by: Miscellaneous Information (Consult) 1 ea N/A UD PRN PRN Reason: Consult Stop: 05/27/19 10:22 Ondansetron HCl (Zofran) 4 mg IV Q6H PRN PRN Reason: Nausea Stop: 05/26/19 20:16 Last Admin: 04/29/19 10:51 Dose: 4 mg Documented by: Pantoprazole Sodium (Protonix) 40 mg PO [facility] Stop: 05/31/19 08:59 Last Admin: 05/03/19 10:20 Dose: 40 mg Documented by: Paroxetine HCl (Paxil) 20 mg PO [facility] Stop: 05/31/19 08:59 Last Admin: 05/03/19 10:20 Dose: 20 mg Documented by: [facility]ab[facility] (Lyrica) [facility] Stop: 05/31/19 08:59 Last Admin: 05/03/19 10:32 Dose: 75 mg Documented by: PG Care Time/CCT Total # of Minutes Spent Total Time Spent with Patient: Total time spent is greater than 50% in coordination of care (as documented) at patient's floor/unit and/or counseling patient: (1) Atrial fibrillation Atrial fibrillation type: paroxysmal Qualified Code(s): I48.0 - Paroxysmal atrial fibrillation (2) Nausea & vomiting Vomiting Intractability: unspecified Vomiting type: unspecified Qualified Code(s): R11.2 - Nausea with vomiting, unspecified
--- NOTE | 2019-05-03 16:10 | Nephrology Progress Note ---
Date of Service May 03, 2019 Assessment & Plan (1) ESRD (end stage renal disease) on dialysis: Patient on HD MWF. He tolerated HD well yesterday for 4 hours and net UF of 2 L. Next HD will be on Thursday for 4 hours and to get UF of 2 L. He had colectomy for ischemic colitis. Will continue minimal UF during HD to avoid hypotension and worsening ischemia (2) Orthostatic hypotension: BP is better, remained stable during dialysis. Avoid midodrine in setting of ischemic bowels. (3) Anemia, chronic renal failure: Patient with anemia of renal disease. Hemoglobin of 7.3 today. We will continue Venofer 100 mg and Epogen 20,000 with dialysis. Subjective ESRD patient seen in follow-up. No shortness of breath. Pain is controlled with pain medications. He had dialysis yesterday. Review of Systems Review of Systems: All systems reviewed & are unremarkable except as noted in HPI & below Physical Exam Physical Exam: General exam: Appears comfortable, no acute distress HEENT: Pupils are equal and reactive to light Neck: No JVD, neck is supple trachea is midline Respiratory system: Clear breath sounds bilaterally. Gastrointestinal: Abdomen is soft, non distended, non tender, bowel sounds are present. Colostomy bag present CVS: Regular rate and rhythm. No murmurs, rubs or gallops Musculoskeletal: No joint or muscle tenderness Extremities: Non tender, no edema, peripheral pulses are present Neuro: Oriented, no tremors, no focal neurological deficits Skin: No rashes Results & Data Vital Signs (Past 12 Hours) Vital Signs Temp Pulse Pulse Pulse Resp BP Pulse Ox 05/03/19 15:39 36.7 C 82 18 132/62 92 05/03/19 11:25 36.7 C 80 16 101/58 L 97 05/03/19 08:00 78 05/03/19 07:23 36.7 C 78 16 119/64 93 05/03/19 04:31 36.9 C 70 19 107/62 92 Laboratory Results Laboratory Results - last 24 hr 05/03/19 05/03/19 05/03/19 05:43 05:43 13:55 WBC 15.19 H RBC 2.26 L Hgb 7.3 L 7.5 L Hct 21.9 L 22.5 L MCV 96.9 MCH 32.3 MCHC 33.3 RDW Std Deviation 62.2 H RDW Coeff of Jolanta 18.1 H Plt Count 137 MPV 8.4 Absolute Nucleated RBC 0.11 H Nucleated RBC % (auto) 0.7 Neutrophils % (Manual) 74.7 Lymphocytes % (Manual) 4.3 Monocytes % (Manual) 9.6 Eosinophils % (Manual) 3.5 Basophils % (Manual) 0.9 Metamyelocytes % (Man) 3.5 Myelocytes % (Man) 3.5 Neutrophils # (Manual) 11.35 H Total Absolute Neuts 11.35 H Lymphocytes # (Manual) 0.65 L Total Abs Lymphocytes 0.65 L Monocytes # (Manual) 1.46 H Eosinophils # (Manual) 0.53 H Basophils # (Manual) 0.14 Metamyelocytes # (Man) 0.53 H Myelocytes # (Manual) 0.53 H RBC Morphology Unremarkable Sodium 135 L Potassium 3.3 L Chloride 96 L Carbon Dioxide 32 Anion Gap 7.0 BUN 25 H Creatinine 6.08 H* Est Cr Clr Drug Dosing 13.7 Est GFR ( Amer) 9.7 Est GFR (Non-Af Amer) 8.4 BUN/Creatinine Ratio 4.1 L Glucose 95 Calcium 8.5 Blood Type Antibody Screen Antibody Identification Crossmatch 05/03/19 13:55 WBC RBC Hgb Hct MCV MCH MCHC RDW Std Deviation RDW Coeff of Jolanta Plt Count MPV Absolute Nucleated RBC Nucleated RBC % (auto) Neutrophils % (Manual) Lymphocytes % (Manual) Monocytes % (Manual) Eosinophils % (Manual) Basophils % (Manual) Metamyelocytes % (Man) Myelocytes % (Man) Neutrophils # (Manual) Total Absolute Neuts Lymphocytes # (Manual) Total Abs Lymphocytes Monocytes # (Manual) Eosinophils # (Manual) Basophils # (Manual) Metamyelocytes # (Man) Myelocytes # (Manual) RBC Morphology Sodium Potassium Chloride Carbon Dioxide Anion Gap BUN Creatinine Est Cr Clr Drug Dosing Est GFR ( Amer) Est GFR (Non-Af Amer) BUN/Creatinine Ratio Glucose Calcium Blood Type A Positive Antibody Screen POSITIVE A Antibody Identification Pending Crossmatch See Detail
[2019-05-03] MEDS: FAMOTIDINE 20 MG TAB PO SCH (19:45)
[2019-05-04] MEDS: PIPERACILLIN/TAZOBACTAM 3.375 GM in DEXTROSE 5% 100 ML IV SCH (06:04)
[2019-05-04] MEDS: LEVOTHYROXINE SODIUM 75 MCG TABLET PO SCH (06:15)
--- NOTE | 2019-05-04 07:18 | Progress Note ---
Date of Service May 04, 2019 Assessment & Plan (1) Necrosis of colon: doing better than I expected- dorcas diet give regular food weak- needs rehab monitor ileostomy output Results & Data Vital Signs (Past 12 Hours) Vital Signs Temp Pulse Pulse Resp BP Pulse Ox 05/04/19 03:29 36.6 C 67 17 135/56 L 96 05/03/19 23:25 36.5 C 66 18 114/55 L 94 05/03/19 19:36 36.7 C 77 18 119/55 L 95
[2019-05-04] MEDS: ACETAMINOPHEN 1,000 MG/100 ML VIAL IV PRN ×2 (07:52→21:05)
[2019-05-04] MEDS: CALCIUM ACETATE 667 MG CAP PO SCH ×3 (07:53→17:41)
[2019-05-04] MEDS: PREGABALIN 75 MG CAP PO SCH (08:00)
[2019-05-04] MEDS: ATORVASTATIN 40 MG TAB PO SCH (08:00)
[2019-05-04] MEDS: HEPARIN SOD 5,000 UNIT/0.5 ML VIAL SQ SCH ×2 (08:00→21:05)
[2019-05-04] MEDS: PANTOprazole 40 MG TAB PO SCH (08:00)
[2019-05-04] MEDS: PARoxetine HCl 20 MG TAB PO SCH (08:00)
[2019-05-04] MEDS ORDERED: SODIUM CHLORIDE 0.9% 1000ML 1,000 ML IV PRN (08:34)
[2019-05-04] MEDS ORDERED: EPOETIN ALFA 10,000 UNITS/ML VIAL IV ONE (08:34)
[2019-05-04] MEDS ORDERED: HEPARIN SOD (PORCINE) 1000 UNIT/ML 10 ML VIAL IV ONE (08:34)
[2019-05-04] MEDS ORDERED: SODIUM CHLORIDE 0.9% 250 ML IV PRN (08:41)
[2019-05-04 08:43] LABS: Hematocrit (blood only) 23.9 % (42-52); Hemoglobin 7.7 g/dL (14.0-18.0); Mean Corpuscular Hgb Conc 32.2 g/dL (32-36); Mean Corpuscular Volume 99.6 fL (80-100); Mean Platelet Volume 8.7 fL (7.4-10.4); Platelet Count 176 K/uL (130-400); RDW Coefficient of Variation 18.4 % (11.5-14.5); White Blood Count 14.96 K/uL (4.8-10.8)
[2019-05-04 09:10] LABS: ALC (manual) 0.78 K/uL (1.2-3.4); Basophils # (manual) 0.13 K/uL (0-0.2); Basophils % (manual) 0.9 %; Eosinophils # (manual) 1.17 K/uL (0-0.5); Eosinophils % (manual) 7.8 %; Lymphocytes # (manual) 0.78 K/uL (1.2-3.4); Lymphocytes % (manual) 5.2 %; Metamyelocytes # (manual) 0.91 K/uL (0-0); Metamyelocytes % (manual) 6.1 %; Monocytes # (manual) 1.17 K/uL (0.11-0.59); Monocytes % (manual) 7.8 %; Myelocytes # (manual) 0.39 K/uL (0-0); Myelocytes % (manual) 2.6 %; Neutrophils % (manual) 69.6 %; Polychromasia 1+
[2019-05-04 09:31] LABS: BUN Creatinine Ratio 4.5 (10-20); Calcium 8.9 mg/dl (8.5-10.1); Creatinine Clr Calc Pharmacy 9.7 ml/min; Est GFR (African American) 6.4; Est GFR (Non-African American) 5.6; Magnesium 1.9 mg/dl (1.8-2.4); Potassium 3.3 mmol/L (3.5-5.1)
--- NOTE | 2019-05-04 11:53 | Hospitalist Progress Note ---
Date of Service May 04, 2019 Assessment & Plan (1) Ischemic colitis: Presented with abd pain ongoing for about 1 week, N/V, persistent orthostatic hypotension contributing to ischemia Found to have ischemic colitis on CT on 04/27, lactate carlos enrique, spiked a fever, WBC count continued to rise, PCT continued to rise. 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 Tan-therefore no vascular intervention was indicated Now postop day #6 status post Subtotal colectomy with end ileostomy and Driss pouch by Dr. Restrepo during which the surgeon found necrotic bowel especially of the ascending and transverse colon and also removed part of the sigmoid colon Was on the mechanical vent overnight after the procedure and then extubated on 04/29 -Continues to be doing remarkably well, tolerating regular diet, no nausea, minimal abdominal pain, ostomy functioning eating all of his meals today -Continue postoperative management as per surgery -Continue out of bed to chair and ambulation as tolerated, PT/OT consulted -Pain control as needed with Tylenol anticipate needing rehab, he accepts this case management talking with patient's sister about facility choice will transfer to surgical floor today (2) Fever: Patient spiked a fever the day after admission on 04/27 With nausea and vomiting day before and left lower lobe infiltrate on chest x- ray, initially suspected aspiration pneumonia, however now with known ischemic colitis as above Leukocytosis was resolved postoperatively, but now is back up and remains stable at 13k, remains afebrile -Remains on Zosyn -follow BCxs-NGTD -Acetaminophen as needed for fever (3) Anemia of chronic disease: With acute blood loss anemia in addition to anemia of chronic renal disease Hemoglobin stable at 10 but then dropped to 8.3 on the day of his surgery, then had surgery and received 1 unit of PRBCs on 04/28 intraoperatively Hemoglobin today continues to be low at 7.7 today plan to transfuse one unit of PRBC with HD today receiving Venofer and EPO from nephrology (4) Aspiration pneumonia: Suspected aspiration pneumonia as above Secondary to nausea and vomiting on the day of admission With left lower lobe infiltrate seen on chest x-ray, fever, leukocytosis, elevated procalcitonin which was likely from ischemic colitis rather than a true PNA -Treatment as above with antibiotics Not requiring oxygen, would repeat chest x-ray eventually to ensure resolution of infiltrate repeat 2 view x-ray tomorrow complete 7 days total of antibiotics, on 05/04 (5) Nausea & vomiting: Initially thought to be from orthostasis and severe constipation Now known to be from ischemic colitis no further vomiting, eating all of his meals (6) Abdominal pain: secondary to ischemic colitis and known postoperative pain-improved, only using Tylenol as needed only has pain with movement, really just muscular pain (7) Orthostatic hypotension: Was on midodrine as an outpatient, long-standing for years, recently had the dose increased to 5 mg 4 times daily on dialysis days approximately 2 weeks prior to admission Had blood pressure down in the 60s systolic with dialysis on the day after admission which likely led to worsening of his ischemic colitis BPs are actually much improved now despite being off of midodrine since 04/27 -continue to hold midodrine due to ischemic colitis BP is 132/65 today (8) Atrial fibrillation: Was in normal sinus rhythm here throughout the entire hospital stay until the evening of 05/01 when he went into atrial fibrillation with rates in the 80s -Continue amiodarone 200 mg every other day as before He cannot tolerate beta-blockers due to severe orthostatic hypotension -Follows with Dr. Araujo for cardiology-not consulted here -His Coreg was discontinued several weeks ago for low blood pressures Not on anticoagulation-unclear reason why, but would not start at this time due to significant anemia and recent surgery -holding aspirin due to recent surgery-we will discuss with surgery about timing of restarting this (9) Hx of CABG: Two-vessel CABG simultaneously with his MVR -holding po meds of aspirin, Plavix due to recent surgery, but can restart statin -Not on beta-maxim due to hypotension as above -Would try to restart at least the aspirin possibly if okay with general surgery-we will need to discuss with surgery (10) GERD (gastroesophageal reflux disease): -Continue Protonix and Pepcid 20 mg (11) Constipation: No bowel movement for 2 weeks prior to admission Had a multiple bowel movements on admission after bisacodyl suppository and Kayexalate upon admission Resolved (12) Hypothyroidism: TSH is stable -Continue levothyroxine (13) CAD (coronary artery disease): no chest pain or pressure (14) ESRD (end stage renal disease) on dialysis: Appreciate nephrology consultation Had hemodialysis on 04/27 with removal of only 400 mL's of fluid, then again on 04/29 with removal of 1 L of fluid Tolerated dialysis and electrolytes are stable -Follow BMP -Restarted PhosLo now that he is tolerating p.o. and eating -Continues on Thursday hemodialysis schedule per nephrology, only targeting 2L of UF per session to avoid hypotension plan for HD today (15) Sepsis: As above, due to ischemic colitis, now resolved (16) Hyperkalemia: Potassium 5.8 on admission he was given calcium gluconate and Kayexalate. now resolved -Follow BMP -Continue dialysis (17) Ileostomy in place: Noted, as above Will need ostomy teaching (18) DVT prophylaxis: Heparin subcu, add on SCDs and MARJORIE hose which also help with any orthostasis Disposition- transfer to surgical floor later today after HD PT/OT consults placed, will likely need rehab placement when medically stable could be ready by Sunday 05/06 DNR/DNI Subjective patient sitting in chair, smiling only complaint is that he has some abdominal pain when bending discussed that that can be normal after major abdominal surgery breathing is stable, no chest pain or pressure reviewed labs, Hb low at 7.7, will give one unit of PRBC WBC still a little high at 14k, unclear, no fever discussed with RN, will send to surgical floor after HD today patient open to going to rehab discussed with director of casework, plan for rehab, discussing with patient's sister Review of Systems Review of Systems: All systems reviewed & are unremarkable except as noted in HPI & below Constitutional: + weakness; no fever, no chills, no sweats and no fatigue Respiratory: no cough and no dyspnea Cardiovascular: no chest pain, no dyspnea and no edema Gastrointestinal: + abdominal pain; no nausea, no vomiting, no constipation and no diarrhea/loose stools Physical Exam Constitutional: WD/WN, vitals as above Eyes: PERRL, conjunctivae normal, anicteric sclerae ENMT: external ear and nose normal, oropharynx normal Neck: trachea midline, no thyromegaly Respiratory: normal respiratory effort, lungs clear to auscultation Cardiovascular: RRR, no murmur, no edema Gastrointestinal (Abdomen): normal bowel sounds, soft, nontender, no hepatosplenomegaly (ostomy in place, good function today) Musculoskeletal: no cyanosis or clubbing, extremities motor strength 5/5 (s/p right toe amputation) Skin: no rashes, warm and dry Neurologic: patellar DTR's 2+ bilat, sensation intact and PERRL, EOMI, accomm odation nl, no face palsy, no dysarthria Psychiatric: A+Ox3, euthymic affect Lymphatic: no cervical or axillary lymphadenopathy Results & Data Vital Signs (Past 12 Hours) Vital Signs Temp Pulse Resp BP Pulse Ox 05/04/19 10:59 36.7 C 79 17 132/65 98 05/04/19 08:46 98 05/04/19 07:46 36.8 C 77 18 133/60 98 05/04/19 03:29 36.6 C 67 17 135/56 L 96 Laboratory Results Laboratory Results - last 24 hr 05/03/19 05/03/19 05/04/19 13:55 13:55 08:07 WBC 14.96 H RBC 2.40 L Hgb 7.5 L 7.7 L Hct 22.5 L 23.9 L MCV 99.6 MCH 32.1 MCHC 32.2 RDW Std Deviation 65.0 H RDW Coeff of Jolanta 18.4 H Plt Count 176 MPV 8.7 Neutrophils % (Manual) 69.6 Lymphocytes % (Manual) 5.2 Monocytes % (Manual) 7.8 Eosinophils % (Manual) 7.8 Basophils % (Manual) 0.9 Metamyelocytes % (Man) 6.1 Myelocytes % (Man) 2.6 Neutrophils # (Manual) 10.41 H Total Absolute Neuts 10.41 H Lymphocytes # (Manual) 0.78 L Total Abs Lymphocytes 0.78 L Monocytes # (Manual) 1.17 H Eosinophils # (Manual) 1.17 H Basophils # (Manual) 0.13 Metamyelocytes # (Man) 0.91 H Myelocytes # (Manual) 0.39 H Polychromasia 1+ Sodium Potassium Chloride Carbon Dioxide Anion Gap BUN Creatinine Est Cr Clr Drug Dosing Est GFR ( Amer) Est GFR (Non-Af Amer) BUN/Creatinine Ratio Glucose Calcium Magnesium Blood Type A Positive Antibody Screen POSITIVE A Antibody Identification Anti-E Direct Antiglob Test Negative KEVIN (IgG-AHG) Neg KEVIN, Polyspecific Neg KEVIN C3b, C3d 5 Min Neg Crossmatch See Detail 05/04/19 08:07 WBC RBC Hgb Hct MCV MCH MCHC RDW Std Deviation RDW Coeff of Jolanta Plt Count MPV Neutrophils % (Manual) Lymphocytes % (Manual) Monocytes % (Manual) Eosinophils % (Manual) Basophils % (Manual) Metamyelocytes % (Man) Myelocytes % (Man) Neutrophils # (Manual) Total Absolute Neuts Lymphocytes # (Manual) Total Abs Lymphocytes Monocytes # (Manual) Eosinophils # (Manual) Basophils # (Manual) Metamyelocytes # (Man) Myelocytes # (Manual) Polychromasia Sodium 132 L Potassium 3.3 L Chloride 95 L Carbon Dioxide 26 Anion Gap 11.0 BUN 39 H D Creatinine 8.54 H* D Est Cr Clr Drug Dosing 9.7 Est GFR ( Amer) 6.4 Est GFR (Non-Af Amer) 5.6 BUN/Creatinine Ratio 4.5 L Glucose 90 Calcium 8.9 Magnesium 1.9 Blood Type Antibody Screen Antibody Identification Direct Antiglob Test KEVIN (IgG-AHG) KEVIN, Polyspecific KEVIN C3b, C3d 5 Min Crossmatch Medications Administered Current Inpatient Medications Albuterol (Ventolin Hfa) 2 puffs INH Q6H PRN PRN Reason: Shortness Of Breath Stop: 05/26/19 20:16 Amiodarone HCl (Cordarone) 200 mg PO Q2D [facility] Stop: 05/31/19 08:59 Last Admin: 05/03/19 10:21 Dose: 200 mg Documented by: Atorvastatin Calcium (Lipitor) 40 mg PO QAM [facility] Stop: 05/31/19 08:59 Last Admin: 05/04/19 08:00 Dose: 40 mg Documented by: Calcium Acetate (Phoslo) 667 mg PO TIDM [facility] Stop: 05/31/19 07:59 Last Admin: 05/04/19 07:53 Dose: 667 mg Documented by: Famotidine (Pepcid) 20 mg PO HS [facility] Stop: 05/30/19 20:59 Last Admin: 05/03/19 19:45 Dose: 20 mg Documented by: Heparin Sodium (Porcine) (Heparin Sodium (Porcine)) 5,000 units SQ Q12 [facility] Stop: 05/26/19 20:59 Last Admin: 05/04/19 08:00 Dose: 5,000 units Documented by: Acetaminophen (Ofirmev) 1,000 mg in 100 mls @ 400 mls/hr IV Q8H PRN PRN Reason: Pain Stop: 05/30/19 19:01 Last Infusion: 05/04/19 08:07 Dose: Infused Documented by: Sodium Chloride (Nss) 250 mls @ 15 mls/hr IV .[id number] PRN PRN Reason: For Transfusion Stop: 06/02/19 07:35 Sodium Chloride (Nss 1000ml) 1,000 mls @ 0 mls/hr IV .Q0M PRN PRN Reason: For Hemodialysis Use ONLY Stop: 05/04/19 14:33 Sodium Chloride (Nss) 250 mls @ 15 mls/hr IV .[id number] PRN PRN Reason: For Transfusion Stop: 06/03/19 08:40 Promethazine HCl 12.5 mg/ (Sodium Chloride) 50.5 mls @ 202 mls/hr IV Q6H PRN PRN Reason: Nausea And Vomiting Stop: 05/26/19 20:16 Last Infusion: 04/29/19 11:56 Dose: Infused Documented by: Piperacillin Sod/Tazobactam (Sod 3.375 gm/ Dextrose) 115 mls @ 28.75 mls/hr IV Q12H [facility]; Protocol Stop: 05/04/19 17:59 Last Infusion: 05/04/19 10:05 Dose: Infused Documented by: Levothyroxine Sodium (Synthroid) 75 mcg PO DAILYBB [facility] Stop: 05/31/19 06:29 Last Admin: 05/04/19 06:15 Dose: 75 mcg Documented by: Miscellaneous Information (Consult) 1 ea N/A UD PRN PRN Reason: Consult Stop: 05/27/19 10:22 Ondansetron HCl (Zofran) 4 mg IV Q6H PRN PRN Reason: Nausea Stop: 05/26/19 20:16 Last Admin: 04/29/19 10:51 Dose: 4 mg Documented by: Pantoprazole [facility]odium (Protonix) [facility] [place] Stop: 05/31/19 08:59 Last Admin: 05/04/19 08:00 Dose: 40 mg Documented by: Paroxetine HCl (Paxil) 20 mg PO [facility] Stop: 05/31/19 08:59 Last Admin: 05/04/19 08:00 Dose: 20 mg Documented by: Pregabalin (Lyrica) 75 mg PO [facility] Stop: 05/31/19 08:59 Last Admin: 05/04/19 08:00 Dose: 75 mg Documented by: PG Care Time/CCT Total # of Minutes Spent Total Time Spent with Patient: Total time spent is greater than 50% in coordination of care (as documented) at patient's floor/unit and/or counseling patient: (1) Nausea & vomiting Vomiting Intractability: unspecified Vomiting type: unspecified Qualified Code(s): R11.2 - Nausea with vomiting, unspecified (2) Atrial fibrillation Atrial fibrillation type: paroxysmal Qualified Code(s): I48.0 - Paroxysmal atrial fibrillation
--- NOTE | 2019-05-04 13:34 | Nephrology Progress Note ---
Date of Service May 04, 2019 Assessment & Plan (1) ESRD (end stage renal disease) on dialysis: Patient on HD MWF. He is being dialyzed for 4 hours today and target UF of 3 L. He is tolerating dialysis well so far.. He had colectomy for ischemic colitis. Will continue minimal UF during HD to avoid hypotension and worsening ischemia (2) Orthostatic hypotension: BP is better, will monitor closely during dialysis. Avoid midodrine in setting of ischemic bowels. (3) Anemia, chronic renal failure: Patient with anemia of renal disease. We will continue Venofer 100 mg and Epogen 20,000 with dialysis. Subjective ESRD patient seen and examined while on dialysis. He is feeling well this morning denies any shortness of breath or pain. He is now eating solid food. He complains of exertional shortness of breath. Review of Systems Review of Systems: All systems reviewed & are unremarkable except as noted in HPI & below Physical Exam Physical Exam: General exam: Appears comfortable, no acute distress HEENT: Pupils are equal and reactive to light Neck: No JVD, neck is supple trachea is midline Respiratory system: Clear breath sounds bilaterally. Gastrointestinal: Abdomen is soft, non distended, non tender, bowel sounds are present. Colostomy bag present CVS: Regular rate and rhythm. No murmurs, rubs or gallops Musculoskeletal: No joint or muscle tenderness Extremities: Non tender, no edema, peripheral pulses are present Neuro: Oriented, no tremors, no focal neurological deficits Skin: No rashes Results & Data Vital Signs (Past 12 Hours) Vital Signs Temp Pulse Resp BP Pulse Ox 05/04/19 10:59 36.7 C 79 17 132/65 98 05/04/19 08:46 98 05/04/19 07:46 36.8 C 77 18 133/60 98 05/04/19 03:29 36.6 C 67 17 135/56 L 96 Laboratory Results Laboratory Results - last 24 hr 05/03/19 05/03/19 05/04/19 13:55 13:55 08:07 WBC 14.96 H RBC 2.40 L Hgb 7.5 L 7.7 L Hct 22.5 L 23.9 L MCV 99.6 MCH 32.1 MCHC 32.2 RDW Std Deviation 65.0 H RDW Coeff of Jolanta 18.4 H Plt Count 176 MPV 8.7 Neutrophils % (Manual) 69.6 Lymphocytes % (Manual) 5.2 Monocytes % (Manual) 7.8 Eosinophils % (Manual) 7.8 Basophils % (Manual) 0.9 Metamyelocytes % (Man) 6.1 Myelocytes % (Man) 2.6 Neutrophils # (Manual) 10.41 H Total Absolute Neuts 10.41 H Lymphocytes # (Manual) 0.78 L Total Abs Lymphocytes 0.78 L Monocytes # (Manual) 1.17 H Eosinophils # (Manual) 1.17 H Basophils # (Manual) 0.13 Metamyelocytes # (Man) 0.91 H Myelocytes # (Manual) 0.39 H Polychromasia 1+ Sodium Potassium Chloride Carbon Dioxide Anion Gap BUN Creatinine Est Cr Clr Drug Dosing Est GFR ( Amer) Est GFR (Non-Af Amer) BUN/Creatinine Ratio Glucose Calcium Magnesium Blood Type A Positive Antibody Screen POSITIVE A Antibody Identification Anti-E Direct Antiglob Test Negative KEVIN (IgG-AHG) Neg KEVIN, Polyspecific Neg KEVIN C3b, C3d 5 Min Neg Crossmatch See Detail 05/04/19 08:07 WBC RBC Hgb Hct MCV MCH MCHC RDW Std Deviation RDW Coeff of Jolanta Plt Count MPV Neutrophils % (Manual) Lymphocytes % (Manual) Monocytes % (Manual) Eosinophils % (Manual) Basophils % (Manual) Metamyelocytes % (Man) Myelocytes % (Man) Neutrophils # (Manual) Total Absolute Neuts Lymphocytes # (Manual) Total Abs Lymphocytes Monocytes # (Manual) Eosinophils # (Manual) Basophils # (Manual) Metamyelocytes # (Man) Myelocytes # (Manual) Polychromasia Sodium 132 L Potassium 3.3 L Chloride 95 L Carbon Dioxide 26 Anion Gap 11.0 BUN 39 H D Creatinine 8.54 H* D Est Cr Clr Drug Dosing 9.7 Est GFR ( Amer) 6.4 Est GFR (Non-Af Amer) 5.6 BUN/Creatinine Ratio 4.5 L Glucose 90 Calcium 8.9 Magnesium 1.9 Blood Type Antibody Screen Antibody Identification Direct Antiglob Test KEVIN (IgG-AHG) KEVIN, Polyspecific KEVIN C3b, C3d 5 Min Crossmatch
[2019-05-04] MEDS: HEPARIN SOD (PORCINE) 1000 UNIT/ML 10 ML VIAL IV SCH (19:15)
[2019-05-04] MEDS: FAMOTIDINE 20 MG TAB PO SCH (21:05)
[2019-05-05] MEDS: LEVOTHYROXINE SODIUM 75 MCG TABLET PO SCH (06:18)
[2019-05-05] MEDS: ACETAMINOPHEN 1,000 MG/100 ML VIAL IV PRN (08:26)
[2019-05-05] MEDS: AMIODARONE 200 MG TAB PO SCH (08:27)
[2019-05-05] MEDS: CALCIUM ACETATE 667 MG CAP PO SCH ×3 (08:27→16:53)
[2019-05-05] MEDS: HEPARIN SOD 5,000 UNIT/0.5 ML VIAL SQ SCH ×2 (08:28→19:44)
[2019-05-05] MEDS: PANTOprazole 40 MG TAB PO SCH (08:28)
[2019-05-05] MEDS: ATORVASTATIN 40 MG TAB PO SCH (08:28)
[2019-05-05] MEDS: PARoxetine HCl 20 MG TAB PO SCH (08:28)
[2019-05-05] MEDS: PREGABALIN 75 MG CAP PO SCH (08:36)
[2019-05-05 08:38] LABS: Hematocrit (blood only) 26.7 % (42-52); Hemoglobin 8.9 g/dL (14.0-18.0); Mean Corpuscular Hgb Conc 33.3 g/dL (32-36); Mean Corpuscular Volume 95.4 fL (80-100); Mean Platelet Volume 8.5 fL (7.4-10.4); Platelet Count 169 K/uL (130-400); RDW Coefficient of Variation 19.8 % (11.5-14.5); RDW Standard Deviation 65.1 fL (36.4-46.3); White Blood Count 15.27 K/uL (4.8-10.8)
[2019-05-05 09:19] LABS: ALC (manual) 1.07 K/uL (1.2-3.4); Eosinophils # (manual) 1.07 K/uL (0-0.5); Lymphocytes # (manual) 1.07 K/uL (1.2-3.4); Metamyelocytes # (manual) 0.66 K/uL (0-0); Metamyelocytes % (manual) 4.3 %; Monocytes # (manual) 0.93 K/uL (0.11-0.59); Monocytes % (manual) 6.1 %; Myelocytes # (manual) 0.26 K/uL (0-0); Myelocytes % (manual) 1.7 %; Neutrophils % (manual) 73.9 %; RBC Morphology Unremarkable
[2019-05-05 09:36] LABS: BUN Creatinine Ratio 3.8 (10-20); Calcium 9.2 mg/dl (8.5-10.1); Creatinine Clr Calc Pharmacy 12.6 ml/min; Est GFR (African American) 8.8; Est GFR (Non-African American) 7.6; Potassium 3.8 mmol/L (3.5-5.1)
--- NOTE | 2019-05-05 16:14 | XRay Report ---
XR chest 2V routine CLINICAL HISTORY: 73 years-old Male presenting with follow up infiltrate. TECHNIQUE: PA and lateral views of the chest were obtained. COMPARISON: 04/26/[address] from 09/26/2018. FINDINGS: Median sternotomy wires and mitral valve ring noted. Atherosclerosis of the aortic arch. Cardiac silh ouette enlarged. Diffusely heterogeneous and coarsened lung markings. Pulmonary vasculature is not si gnificantly enlarged. Improved aeration of the left lung base. No pleural effusion or pneumothorax. S lightly exaggerated thoracic kyphosis. Multilevel degenerative changes. Suspected underlying osteopen ia. Upper abdomen normal. IMPRESSION: 1. Improved aeration at the left lung base. No focal infiltrate on the current exam. 2. Cardiomegaly. No evidence of volume overload or rubin pulmonary edema. Electronically signed by: Mingo Rahman M.D. 05/05/2019 4:13 PM
--- NOTE | 2019-05-05 16:21 | Hospitalist Progress Note ---
Date of Service May 05, 2019 Assessment & Plan (1) Ischemic colitis: Presented with abd pain ongoing for about 1 week, N/V, persistent orthostatic hypotension contributing to ischemia Found to have ischemic colitis on CT on 04/27, lactate carlos enrique, spiked a fever, WBC count continued to rise, PCT continued to rise. 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 Tan-therefore no vascular intervention was indicated Now postop day #7 status post Subtotal colectomy with end ileostomy and Driss pouch by Dr. Restrepo during which the surgeon found necrotic bowel especially of the ascending and transverse colon and also removed part of the sigmoid colon Was on the mechanical vent overnight after the procedure and then extubated on 04/29 -Continues to be doing well, tolerating regular diet, no nausea, minimal abdominal pain, ostomy functioning eating all of his meals for several days -Continue out of bed to chair and ambulation as tolerated, PT/OT consulted -Pain control as needed with Tylenol anticipate needing rehab, he accepts this plan to make referrals to rehab facilities today (2) Fever: Patient spiked a fever the day after admission on 04/27 With nausea and vomiting day before and left lower lobe infiltrate on chest x- ray, initially suspected aspiration pneumonia, however now with known ischemic colitis as above Leukocytosis was resolved postoperatively, but now is back up and remains stable at 13k, remains afebrile -Remains on Zosyn -follow BCxs-NGTD -Acetaminophen as needed for fever (3) Anemia of chronic disease: With acute blood loss anemia in addition to anemia of chronic renal disease Hemoglobin stable at 10 but then dropped to 8.3 on the day of his surgery, then had surgery and received 1 unit of PRBCs on 04/28 intraoperatively Hb up to 8.9 after one unit transfued on 05/04 receiving Venofer and EPO from nephrology (4) Aspiration pneumonia: Suspected aspiration pneumonia as above Secondary to nausea and vomiting on the day of admission With left lower lobe infiltrate seen on chest x-ray, fever, leukocytosis, elevated procalcitonin which was likely from ischemic colitis rather than a true PNA -Treatment as above with antibiotics Not requiring oxygen, would repeat chest x-ray eventually to ensure resolution of infiltrate repeat 2 view x-ray tomorrow complete 7 days total of antibiotics, on 05/04 (5) Nausea & vomiting: Initially thought to be from orthostasis and severe constipation Now known to be from ischemic colitis no further vomiting, eating all of his meals (6) Abdominal pain: secondary to ischemic colitis and known postoperative pain-improved, only using Tylenol as needed only has pain with movement, really just muscular pain (7) Orthostatic hypotension: Was on midodrine as an outpatient, long-standing for years, recently had the dose increased to 5 mg 4 times daily on dialysis days approximately 2 weeks prior to admission Had blood pressure down in the 60s systolic with dialysis on the day after admission which likely led to worsening of his ischemic colitis BPs are actually much improved now despite being off of midodrine since 04/27 -continue to hold midodrine due to ischemic colitis BP is 132/65 today (8) Atrial fibrillation: Was in normal sinus rhythm here throughout the entire hospital stay until the evening of 05/01 when he went into atrial fibrillation with rates in the 80s -Continue amiodarone 200 mg every other day as before He cannot tolerate beta-blockers due to severe orthostatic hypotension -Follows with Dr. Araujo for cardiology-not consulted here -His Coreg was discontinued several weeks ago for low blood pressures Not on anticoagulation-unclear reason why, but would not start at this time due to significant anemia and recent surgery -holding aspirin due to recent surgery-we will discuss with surgery about timing of restarting this (9) Hx of CABG: Two-vessel CABG simultaneously with his MVR -holding po meds of aspirin, Plavix due to recent surgery, but can restart statin -Not on beta-maxim due to hypotension as above -Would try to restart at least the aspirin possibly if okay with general surgery-we will need to discuss with surgery (10) GERD (gastroesophageal reflux disease): -Continue Protonix and Pepcid 20 mg (11) Constipation: No bowel movement for 2 weeks prior to admission Had a multiple bowel movements on admission after bisacodyl suppository and Kayexalate upon admission Resolved (12) Hypothyroidism: TSH is stable -Continue levothyroxine (13) CAD (coronary artery disease): no chest pain or pressure (14) ESRD (end stage renal disease) on dialysis: Appreciate nephrology consultation Had hemodialysis on 04/27 with removal of only 400 mL's of fluid, then again on 04/29 with removal of 1 L of fluid Tolerated dialysis and electrolytes are stable -Follow BMP -Restarted PhosLo now that he is tolerating p.o. and eating -Continues on Thursday hemodialysis schedule per nephrology, only targeting 2L of UF per session to avoid hypotension plan for HD today (15) Sepsis: As above, due to ischemic colitis, now resolved (16) Hyperkalemia: Potassium 5.8 on admission he was given calcium gluconate and Kayexalate. now resolved -Follow BMP -Continue dialysis (17) Ileostomy in place: Noted, as above Will need ostomy teaching (18) DVT prophylaxis: Heparin subcu, add on SCDs and MARJORIE hose which also help with any orthostasis Disposition- medical floor PT/OT consults placed, will likely need rehab placement when medically stable DNR/DNI Subjective patient feeling really good no abdominal pain, eating well, says that the food is good here no nausea ostomy functioning no chest pain, no dyspnea patient is open to go to rehab Review of Systems Review of Systems: All systems reviewed & are unremarkable except as noted in HPI & below Constitutional: + weakness; no fever, no chills, no sweats and no fatigue Respiratory: no cough and no dyspnea Cardiovascular: no chest pain Gastrointestinal: no abdominal pain, no nausea, no vomiting, no constipation and no diarrhea/loose stools Physical Exam Constitutional: WD/WN, vitals as above Eyes: PERRL, conjunctivae normal, anicteric sclerae ENMT: external ear and nose normal, oropharynx normal Neck: trachea midline, no thyromegaly Respiratory: normal respiratory effort, lungs clear to auscultation Cardiovascular: RRR, no murmur, no edema Gastrointestinal (Abdomen): normal bowel sounds, soft, nontender, no hepatosplenomegaly (ostomy in place, good function today) Musculoskeletal: no cyanosis or clubbing, extremities motor strength 5/5 (s/p right toe amputation) Skin: no rashes, warm and dry Neurologic: patellar DTR's 2+ bilat, sensation intact and PERRL, EOMI, accommodation nl, no face palsy, no dysarthria Psychiatric: A+Ox3, euthymic affect Lymphatic: no cervical or axillary lymphadenopathy Results & Data Vital Signs (Past 12 Hours) Vital Signs Temp Pulse Pulse Resp BP Pulse Ox 05/05/19 16:05 36.6 C 71 20 144/62 H 96 05/05/19 10:41 36.9 C 84 18 171/84 H 97 05/05/19 07:07 37.0 C 70 16 135/70 95 Laboratory Results Laboratory Results - last 24 hr 05/03/19 05/05/19 05/05/19 13:55 08:24 08:24 WBC 15.27 H RBC 2.80 L Hgb 8.9 L Hct 26.7 L MCV 95.4 MCH 31.8 MCHC 33.3 RDW Std Deviation 65.1 H RDW Coeff of Jolanta 19.8 H Plt Count 169 MPV 8.5 Neutrophils % (Manual) 73.9 Lymphocytes % (Manual) 7.0 Monocytes % (Manual) 6.1 Eosinophils % (Manual) 7.0 Metamyelocytes % (Man) 4.3 Myelocytes % (Man) 1.7 Neutrophils # (Manual) 11.28 H Total Absolute Neuts 11.28 H Lymphocytes # (Manual) 1.07 L Total Abs Lymphocytes 1.07 L Monocytes # (Manual) 0.93 H Eosinophils # (Manual) 1.07 H Metamyelocytes # (Man) 0.66 H Myelocytes # (Manual) 0.26 H Blood Smear Review RBC Morphology Unremarkable Sodium 135 L Potassium 3.8 D Chloride 100 Carbon Dioxide 26 Anion Gap 9.0 BUN 25 H Creatinine 6.58 H* D Est Cr Clr Drug Dosing 12.6 Est GFR ( Amer) 8.8 Est GFR (Non-Af Amer) 7.6 BUN/Creatinine Ratio 3.8 L Glucose 111 H Calcium 9.2 Crossmatch See Detail Medications Administered Current Inpatient Medications Albuterol (Ventolin Hfa) 2 puffs INH Q6H PRN PRN Reason: Shortness Of Breath Stop: 05/26/19 20:16 Amiodarone HCl (Cordarone) 200 mg PO Q2D [place] Stop: 05/31/19 08:59 Last Admin: 05/05/19 08:27 Dose: 200 mg Documented by: Atorvastatin Calcium (Lipitor) 40 mg PO QAM ON LICENSE OF [facility] Stop: 05/31/19 08:59 Last Admin: 05/05/19 08:28 Dose: 40 mg Documented by: Calcium Acetate (Phoslo) 667 mg PO TIDM ON LICENSE OF [facility] Stop: 05/31/19 07:59 Last Admin: 05/05/19 11:54 Dose: 667 mg Documented by: Famotidine (Pepcid) 20 mg PO HS ON LICENSE OF [facility] Stop: 05/30/19 20:59 Last Admin: 05/04/19 21:05 Dose: 20 mg Documented by: Heparin Sodium (Porcine) (Heparin Sodium (Porcine)) 5,000 units SQ Q12 [place] Stop: 05/26/19 20:59 Last Admin: 05/05/19 08:28 Dose: 5,000 units Documented by: Acetaminophen (Ofirmev) 1,000 mg in 100 mls @ 400 mls/hr IV Q8H PRN PRN Reason: Pain Stop: 05/30/19 19:01 Last Infusion: 05/05/19 08:52 Dose: Infused Documented by: Sodium Chloride (Nss) 250 mls @ 15 mls/hr IV .[id number] PRN PRN Reason: For Transfusion Stop: 06/02/19 07:35 Sodium Chloride (Nss) 250 mls @ 15 mls/hr IV .[id number] PRN PRN Reason: For Transfusion Stop: 06/03/19 08:40 Promethazine HCl 12.5 mg/ (Sodium Chloride) 50.5 mls @ 202 mls/hr IV Q6H PRN PRN Reason: Nausea And Vomiting Stop: 05/26/19 20:16 Last Infusion: 04/29/19 11:56 Dose: Infused Documented by: Levothyroxine Sodium (Synthroid) 75 mcg PO DAILYBB ON LICENSE OF [facility] Stop: 05/31/19 06:29 Last Admin: 05/05/19 06:18 Dose: 75 mcg Documented by: Ondansetron HCl (Zofran) 4 mg IV Q6H PRN PRN Reason: Nausea Stop: 05/26/19 20:16 Last Admin: 04/29/19 10:51 Dose: 4 mg Documented by: Pantoprazole Sodium (Protonix) [facility] Stop: 05/31/19 08:59 Last Admin: 05/05/19 08:28 Dose: 40 mg Documented by: Paroxetine HCl (Paxil) 20 [facility] Stop: 05/31/19 08:59 Last Admin: 05/05/19 08:28 Dose: 20 mg Documented by: Pregabalin (Lyrica) 75 mg PO [facility] Stop: 05/31/19 08:59 Last Admin: 05/05/19 08:36 Dose: 75 mg Documented by: PG Care Time/CCT Total # of Minutes Spent Total Time Spent with Patient: Total time spent is greater than 50% in coordination of care (as documented) at patient's floor/unit and/or counseling patient: (1) Atrial fibrillation Atrial fibrillation type: paroxysmal Qualified Code(s): I48.0 - Paroxysmal atrial fibrillation (2) Nausea & vomiting Vomiting Intractability: unspecified Vomiting type: unspecified Qualified Code(s): R11.2 - Nausea with vomiting, unspecified
--- NOTE | 2019-05-05 17:46 | Nephrology Progress Note ---
Date of Service May 05, 2019 Assessment & Plan (1) ESRD (end stage renal disease) on dialysis: Patient on HD MWF. He was dialyzed for 4 hours yesterday. Electrolytes stable and no volume overload. He had colectomy for ischemic colitis. Will continue minimal UF during HD to avoid hypotension and worsening ischemia. Next HD tomorrow (2) Orthostatic hypotension: BP is better, will monitor closely during dialysis. Avoid midodrine in setting of ischemic bowels. (3) Anemia, chronic renal failure: Patient with anemia of renal disease. We will continue Venofer 100 mg and Epogen 20,000 with dialysis. Subjective Seen during morning rounds. No SOB. Pain is better. Eating solid food now. had HD yesterday Review of Systems Review of Systems: All systems reviewed & are unremarkable except as noted in HPI & below Physical Exam Physical Exam: General exam: Appears comfortable, no acute distress HEENT: Pupils are equal and reactive to light Neck: No JVD, neck is supple trachea is midline Respiratory system: Clear breath sounds bilaterally. Gastrointestinal: Abdomen is soft, non distended, non tender, bowel sounds are present. Colostomy present CVS: Regular rate and rhythm. No murmurs, rubs or gallops Musculoskeletal: No joint or muscle tenderness Extremities: Non tender, no edema, peripheral pulses are present Neuro: Oriented, no tremors, no focal neurological deficits Skin: No rashes Results & Data Vital Signs (Past 12 Hours) Vital Signs Temp Pulse Pulse Resp BP Pulse Ox 05/05/19 16:05 36.6 C 71 20 144/62 H 96 05/05/19 10:41 36.9 C 84 18 171/84 H 97 05/05/19 07:07 37.0 C 70 16 135/70 95 Laboratory Results Laboratory Results - last 24 hr 05/03/19 05/05/19 05/05/19 13:55 08:24 08:24 WBC 15.27 H RBC 2.80 L Hgb 8.9 L Hct 26.7 L MCV 95.4 MCH 31.8 MCHC 33.3 RDW Std Deviation 65.1 H RDW Coeff of Jolanta 19.8 H Plt Count 169 MPV 8.5 Neutrophils % (Manual) 73.9 Lymphocytes % (Manual) 7.0 Monocytes % (Manual) 6.1 Eosinophils % (Manual) 7.0 Metamyelocytes % (Man) 4.3 Myelocytes % (Man) 1.7 Neutrophils # (Manual) 11.28 H Total Absolute Neuts 11.28 H Lymphocytes # (Manual) 1.07 L Total Abs Lymphocytes 1.07 L Monocytes # (Manual) 0.93 H Eosinophils # (Manual) 1.07 H Metamyelocytes # (Man) 0.66 H Myelocytes # (Manual) 0.26 H Blood Smear Review RBC Morphology Unremarkable Sodium 135 L Potassium 3.8 D Chloride 100 Carbon Dioxide 26 Anion Gap 9.0 BUN 25 H Creatinine 6.58 H* D Est Cr Clr Drug Dosing 12.6 Est GFR ( Amer) 8.8 Est GFR (Non-Af Amer) 7.6 BUN/Creatinine Ratio 3.8 L Glucose 111 H Calcium 9.2 Crossmatch See Detail
[2019-05-05] MEDS: FAMOTIDINE 20 MG TAB PO SCH (19:44)
[2019-05-06] MEDS: LEVOTHYROXINE SODIUM 75 MCG TABLET PO SCH (05:13)
--- NOTE | 2019-05-06 07:25 | Progress Note ---
Date of Service May 06, 2019 Assessment & Plan (1) Necrosis of colon: dorcas diet, ileostomy functioning very weak- can't get to BR on own cont supportive care and IV atbx probably 10 days no chgs from surg stdpt- to extended care when ok with med team Dr Ford covering over weekend Results & Data Vital Signs (Past 12 Hours) Vital Signs Temp Pulse Pulse Pulse Resp BP Pulse Ox 05/03/19 11:25 36.7 C 80 16 101/58 L 97 05/03/19 08:00 78 05/03/19 07:23 36.7 C 78 16 119/64 93 05/03/19 04:31 36.9 C 70 19 107/62 92
[2019-05-06] MEDS ORDERED: HEPARIN SOD (PORCINE) 1000 UNIT/ML 10 ML VIAL IV ONE (08:04)
[2019-05-06] MEDS ORDERED: SODIUM CHLORIDE 0.9% 1000ML 1,000 ML IV PRN (08:04)
[2019-05-06] MEDS ORDERED: EPOETIN ALFA 10,000 UNITS/ML VIAL IV SCH (08:15)
[2019-05-06] MEDS: PREGABALIN 75 MG CAP PO SCH (08:34)
[2019-05-06] MEDS: CALCIUM ACETATE 667 MG CAP PO SCH ×3 (08:35→20:21)
[2019-05-06] MEDS: PANTOprazole 40 MG TAB PO SCH (08:35)
[2019-05-06] MEDS: PARoxetine HCl 20 MG TAB PO SCH (08:35)
[2019-05-06] MEDS: ATORVASTATIN 40 MG TAB PO SCH (08:35)
[2019-05-06] MEDS: HEPARIN SOD 5,000 UNIT/0.5 ML VIAL SQ SCH ×2 (08:36→20:37)
--- NOTE | 2019-05-06 10:03 | Nephrology Progress Note ---
Date of Service May 06, 2019 Assessment & Plan (1) ESRD (end stage renal disease) on dialysis: Patient on HD MWF. Electrolytes stable and no volume overload. He had colectomy for ischemic colitis. We will dialyze him today for 4 hours, blood flow 400, dialysate flow 600 and target UF 3 L. (2) Orthostatic hypotension: BP is better, will monitor closely during dialysis. Avoid midodrine in setting of ischemic bowels. (3) Anemia, chronic renal failure: Patient with anemia of renal disease. We will continue Venofer 100 mg and Epogen 20,000 with dialysis. Subjective ESRD patient seen in follow-up. He reports exertional dyspnea. No shortness of breath at rest. No leg swelling. He is eating well. Review of Systems Review of Systems: All systems reviewed & are unremarkable except as noted in HPI & below Physical Exam Physical Exam: General exam: Appears comfortable, no acute distress. Sitting up in the chair HEENT: Pupils are equal and reactive to light Neck: No JVD, neck is supple trachea is midline Respiratory system: Crackles bilaterally. Gastrointestinal: Abdomen is soft, non distended, non tender, bowel sounds are present. Colostomy bag present CVS: Regular rate and rhythm. No murmurs, rubs or gallops Musculoskeletal: No joint or muscle tenderness Extremities: Non tender, no edema, peripheral pulses are present Neuro: Orientedx3, no tremors, no focal neurological deficits Skin: No rashes Results & Data Vital Signs (Past 12 Hours) Vital Signs Temp Pulse Resp BP Pulse Ox 05/06/19 07:55 36.3 C L 83 20 134/73 97 05/05/19 23:33 36.7 C 70 16 142/69 H 96 Laboratory Results Laboratory Results - last 24 hr 05/05/19 08:24 Blood Smear Review
[2019-05-06] MEDS: ACETAMINOPHEN 1,000 MG/100 ML VIAL IV PRN (12:21)
--- NOTE | 2019-05-06 14:36 | Hospitalist Progress Note ---
Date of Service May 06, 2019 Assessment & Plan (1) Ischemic colitis: Presented with abd pain ongoing for about 1 week, N/V, persistent orthostatic hypotension contributing to ischemia Found to have ischemic colitis on CT on 04/27, lactate carlos enrique, spiked a fever, WBC count continued to rise, PCT continued to rise. 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 Tan-therefore no vascular intervention was indicated Now postop day #8 status post Subtotal colectomy with end ileostomy and Driss pouch by Dr. Restrepo during which the surgeon found necrotic bowel especially of the ascending and transverse colon and also removed part of the sigmoid colon Was on the mechanical vent overnight after the procedure and then extubated on 04/29 -Continues to be doing well, tolerating diet, no nausea, minimal abdominal pain, ostomy functioning eating all of his meals for several days -Continue out of bed to chair and ambulation as tolerated, PT/OT consulted -Pain control as needed with Tylenol anticipate needing rehab, he accepts this accepted to [facility], plan to go tomorrow morning, HD this afternoon (2) Fever: Patient spiked a fever the day after admission on 04/27 With nausea and vomiting day before and left lower lobe infiltrate on chest x- ray, initially suspected aspiration pneumonia, however now with known ischemic colitis as above Leukocytosis was resolved postoperatively, but now is back up, no other issues -Remains on Zosyn -follow BCxs-NGTD -Acetaminophen as needed for fever (3) Anemia of chronic disease: With acute blood loss anemia in addition to anemia of chronic renal disease Hemoglobin stable at 10 but then dropped to 8.3 on the day of his surgery, then had surgery and received 1 unit of PRBCs on 04/28 intraoperatively Hb up to 8.9 on 05/05 after one unit transfued on 05/04 receiving Venofer and EPO from nephrology check Hb tomorrow (4) Aspiration pneumonia: Suspected aspiration pneumonia as above Secondary to nausea and vomiting on the day of admission With left lower lobe infiltrate seen on chest x-ray, fever, leukocytosis, elevated procalcitonin which was likely from ischemic colitis rather than a true PNA -Treatment as above with antibiotics Not requiring oxygen, would repeat chest x-ray eventually to ensure resolution of infiltrate repeat 2 view x-ray tomorrow complete 7 days total of antibiotics, on 05/04 (5) Nausea & vomiting: Initially thought to be from orthostasis and severe constipation Now known to be from ischemic colitis no further vomiting, eating all of his meals (6) Abdominal pain: secondary to ischemic colitis and known postoperative pain-improved, only using Tylenol as needed only has pain with movement, really just muscular pain (7) Orthostatic hypotension: Was on midodrine as an outpatient, long-standing for years, recently had the dose increased to 5 mg 4 times daily on dialysis days approximately 2 weeks prior to admission Had blood pressure down in the 60s systolic with dialysis on the day after admission which likely led to worsening of his ischemic colitis BPs are actually much improved now despite being off of midodrine since 04/27 -continue to hold midodrine due to ischemic colitis BP is 132/65 today (8) Atrial fibrillation: Was in normal sinus rhythm here throughout the entire hospital stay until the evening of 05/01 when he went into atrial fibrillation with rates in the 80s -Continue amiodarone 200 mg every other day as before He cannot tolerate beta-blockers due to severe orthostatic hypotension -Follows with Dr. Araujo for cardiology-not consulted here -His Coreg was discontinued several weeks ago for low blood pressures Not on anticoagulation-unclear reason why, but would not start at this time due to significant anemia and recent surgery -holding aspirin due to recent surgery-we will discuss with surgery about timing of restarting this (9) Hx of CABG: Two-vessel CABG simultaneously with his MVR -holding po meds of aspirin, Plavix due to recent surgery, but can restart statin -Not on beta-maxim due to hypotension as above -Would try to restart at least the aspirin possibly if okay with general surgery-we will need to discuss with surgery (10) GERD (gastroesophageal reflux disease): -Continue Protonix and Pepcid 20 mg (11) Constipation: No bowel movement for 2 weeks prior to admission Had a multiple bowel movements on admission after bisacodyl suppository and Kayexalate upon admission Resolved (12) Hypothyroidism: TSH is stable -Continue levothyroxine (13) CAD (coronary artery disease): no chest pain or pressure (14) ESRD (end stage renal disease) on dialysis: Appreciate nephrology consultation Had hemodialysis on 04/27 with removal of only 400 mL's of fluid, then again on 04/29 with removal of 1 L of fluid Tolerated dialysis and electrolytes are stable -Follow BMP -Restarted PhosLo now that he is tolerating p.o. and eating -Continues on Thursday hemodialysis schedule per nephrology, only targeting 2L of UF per session to avoid hypotension plan for HD today (15) Sepsis: As above, due to ischemic colitis, now resolved (16) Hyperkalemia: Potassium 5.8 on admission he was given calcium gluconate and Kayexalate. now resolved -Follow BMP -Continue dialysis (17) Ileostomy in place: Noted, as above Will need ostomy teaching (18) DVT prophylaxis: Heparin subcu, add on SCDs and MARJORIE hose which also help with any orthostasis Disposition- medical floor PT/OT consults placed, will likely need rehab placement when medically stable DNR/DNI Subjective patient having a good day, eating well again, pain controlled waiting for HD this afternoon d/w case aide, can go to rehab today however, due to HD this afternoon, will wait until tomorrow morning vitals stable Review of Systems Review of Systems: All systems reviewed & are unremarkable except as noted in HPI & below Physical Exam Constitutional: WD/WN, vitals as above Eyes: PERRL, conjunctivae normal, anicteric sclerae ENMT: external ear and nose normal, oropharynx normal Neck: trachea midline, no thyromegaly Respiratory: normal respiratory effort, lungs clear to auscultation Cardiovascular: RRR, no murmur, no edema Gastrointestinal (Abdomen): normal bowel sounds, soft, nontender, no hepatosplenomegaly (ostomy in place, good function today) Musculoskeletal: no cyanosis or clubbing, extremities motor strength 5/5 (s/p right toe amputation) Skin: no rashes, warm and dry Neurologic: patellar DTR's 2+ bilat, sensation intact and PERRL, EOMI, accommodation nl, no face palsy, no dysarthria Psychiatric: A+Ox3, euthymic affect Lymphatic: no cervical or axillary lymphadenopathy Results & Data Vital Signs (Past 12 Hours) Vital Signs Temp Pulse Resp BP Pulse Ox 05/06/19 11:44 100 05/06/19 07:55 36.3 C L 83 20 134/73 97 Laboratory Results Laboratory Results - last 24 hr 05/03/19 13:55 Crossmatch See Detail Medications Administered Current Inpatient Medications Albuterol (Ventolin Hfa) 2 puffs INH Q6H PRN PRN Reason: Shortness Of Breath Stop: 05/26/19 20:16 Amiodarone HCl (Cordarone) 200 mg PO Q2D [facility] Stop: 05/31/19 08:59 Last Admin: 05/05/19 08:27 Dose: 200 mg Documented by: Atorvastatin Calcium (Lipitor) 40 mg PO QAM [facility] Stop: 05/31/19 08:59 Last Admin: 05/06/19 08:35 Dose: 40 mg Documented by: Calcium Acetate (Phoslo) 667 mg PO TIDM [facility] Stop: 05/31/19 07:59 Last Admin: 05/06/19 12:11 Dose: 667 mg Documented by: Epoetin Eugenio (Procrit) 10,000 units IV TODAY@0815 [facility] Stop: 05/06/19 23:59 Famotidine (Pepcid) 20 mg PO HS [facility] Stop: 05/30/19 20:59 Last Admin: 05/05/19 19:44 Dose: 20 mg Documented by: Heparin Sodium (Porcine) (Heparin Sodium (Porcine)) 5,000 units SQ Q12 [facility] Stop: 05/26/19 20:59 Last Admin: 05/06/19 08:36 Dose: 5,000 units Documented by: Acetaminophen (Ofirmev) 1,000 mg in 100 mls @ 400 mls/hr IV Q8H PRN PRN Reason: Pain Stop: 05/30/19 19:01 Last Infusion: 05/06/19 12:44 Dose: Infused Documented by: Sodium Chloride (Nss) 250 mls @ 15 mls/hr IV .[id number] PRN PRN Reason: For Transfusion Stop: 06/02/19 07:35 Sodium Chloride (Nss) 250 mls @ 15 mls/hr IV .[id number] PRN PRN Reason: For Transfusion Stop: 06/03/19 08:40 Promethazine HCl 12.5 mg/ (Sodium Chloride) 50.5 mls @ 202 mls/hr IV Q6H PRN PRN Reason: Nausea And Vomiting Stop: 05/26/19 20:16 Last Infusion: 04/29/19 11:56 Dose: Infused Documented by: Levothyroxine Sodium (Synthroid) 75 mcg PO DAILYBB [facility] Stop: 05/31/19 06:29 Last Admin: 05/06/19 05:13 Dose: 75 mcg Documented by: Ondansetron HCl (Zofran) 4 mg IV Q6H PRN PRN Reason: Nausea Stop: 05/26/19 20:16 Last Admin: 04/29/19 10:51 Dose: 4 mg Documented by: Pantoprazole S[facility] ([facility]ix) [facility] [place] Stop: 05/31/19 08:59 Last Admin: 05/06/19 08:35 Dose: 40 mg Documented by: Paroxetine HCl (Paxil) [facility] [place] Stop: 05/31/19 08:59 Last Admin: 05/06/19 08:35 Dose: 20 mg Documented by: Pregabalin (Lyrica) [facility] [place] Stop: 05/31/19 08:59 Last Admin: 05/06/19 08:34 Dose: 75 mg Documented by: PG Care Time/CCT Total # of Minutes Spent Total Time Spent with Patient: Total time spent is greater than 50% in coordination of care (as documented) at patient's floor/unit and/or counseling patient: (1) Nausea & vomiting Vomiting Intractability: unspecified Vomiting type: unspecified Qualified Code(s): R11.2 - Nausea with vomiting, unspecified (2) Atrial fibrillation Atrial fibrillation type: paroxysmal Qualified Code(s): I48.0 - Paroxysmal atrial fibrillation
[2019-05-06] MEDS: FAMOTIDINE 20 MG TAB PO SCH (20:37)
[2019-05-07] MEDS: LEVOTHYROXINE SODIUM 75 MCG TABLET PO SCH (05:24)
[2019-05-07 06:08] LABS: Basophils # (auto) 0.04 K/uL (0-0.2); Basophils % (auto) 0.3 %; Eosinophils # (auto) 0.64 K/uL (0-0.5); Hematocrit (blood only) 24.4 % (42-52); Immature Granulocytes # (auto) 0.51 K/uL (0.00-0.02); Immature Granulocytes % (auto) 3.2 %; Lymphocytes # (auto) 1.27 K/uL (1.2-3.4); Mean Corpuscular Hgb Conc 32.8 g/dL (32-36); Mean Corpuscular Volume 96.8 fL (80-100); Mean Platelet Volume 8.8 fL (7.4-10.4); Monocytes # (auto) 1.35 K/uL (0.11-0.59); Monocytes % (auto) 8.5 %; Neutrophils # (auto) 12.15 K/uL (1.4-6.5); Platelet Count 183 K/uL (130-400); RDW Coefficient of Variation 19.2 % (11.5-14.5); RDW Standard Deviation 65.6 fL (36.4-46.3); Red Blood Count 2.52 M/uL (4.7-6.1); White Blood Count 15.96 K/uL (4.8-10.8)
[2019-05-07] MEDS: HEPARIN SOD (PORCINE) 1000 UNIT/ML 10 ML VIAL IV SCH (07:12)
[2019-05-07 07:15] LABS: BUN Creatinine Ratio 4.3 (10-20); Calcium 8.6 mg/dl (8.5-10.1); Creatinine Clr Calc Pharmacy 11.8 ml/min; Est GFR (African American) 8.2; Est GFR (Non-African American) 7.1; Potassium 4.1 mmol/L (3.5-5.1)
--- NOTE | 2019-05-07 08:21 | Surgery Progress Note ---
Date of Service May 07, 2019 Assessment & Plan (1) Ileostomy in place: doing well with diet con't PT and strengthening rehab placement per medical team Present on Admission?: No (2) Ischemic colitis: Present on Admission?: No (3) Necrosis of colon: Present on Admission?: No Subjective Feeling well Taking po well Pain controlled Difficult for him to ambulate Review of Systems Constitutional: no fever and no chills Respiratory: no cough and no dyspnea Cardiovascular: no chest pain Gastrointestinal: + abdominal pain (incisional); no nausea and no vomiting Musculoskeletal: + muscle weakness Psychiatric: no depression Physical Exam Constitutional: WD/WN, vitals as above Neck: trachea midline Respiratory: normal respiratory effort, lungs clear to auscultation Cardiovascular: Rate/Rhythm: regular rate and regular rhythm Gastrointestinal (Abdomen): Inspection/Auscultation: normal bowel sounds and + abdominal surgical scar (healing well few few open areas) Percussion/Palpation: + abdomen tender (mild) and abdomen soft ostomy pink and patent with good production Results & Data Vital Signs (Past 12 Hours) Vital Signs Temp Pulse Resp BP Pulse Ox 05/06/19 23:05 36.7 C 76 18 138/66 98 Laboratory Results WBC slightly up
[2019-05-07] MEDS: CALCIUM ACETATE 667 MG CAP PO SCH ×2 (09:00→12:31)
[2019-05-07] MEDS: PARoxetine HCl 20 MG TAB PO SCH (09:00)
[2019-05-07] MEDS: PREGABALIN 75 MG CAP PO SCH (09:00)
[2019-05-07] MEDS: PANTOprazole 40 MG TAB PO SCH (09:00)
[2019-05-07] MEDS: ATORVASTATIN 40 MG TAB PO SCH (09:00)
[2019-05-07] MEDS: AMIODARONE 200 MG TAB PO SCH (09:01)
[2019-05-07] MEDS: HEPARIN SOD 5,000 UNIT/0.5 ML VIAL SQ SCH (09:02)
--- NOTE | 2019-05-12 07:37 | Discharge Summary ---
Date of Service May 07, 2019 Admission HPI Per Admitting Provider Patient is transferred from surgical center after having up with heel angioplasties by Dr. Tan due to vascular supply to his lower extremity disease had previous issues with nonhealing ulcerations and had a ultrasound suggestive of arterial compromise. Subsequent to the procedure the patient became orthostatic and had intractable nausea vomiting. He was transferred to the ER was found to be hyperkalemic. Next This patient has issues with orthostasis having to take midodrine on his dialysis days and at higher doses (20) and on nondialysis days he takes 5 mg. Patient is only extreme fluid restriction of thousand cc a day and he states that on April 23 his Thursday dialysis session he took extra fluid off of him because he was over his typical target weight. Currently he is nauseated has a headache he also relates me he is not on the bathroom for 2 weeks Principal Diagnosis Ischemic colitis, s/p subtotal colectomy Discharge Exam Constitutional WD/WN, vitals as above Eyes PERRL, conjunctivae normal, anicteric sclerae ENMT external ear and nose normal, oropharynx normal Neck trachea midline, no thyromegaly Respiratory normal respiratory effort, lungs clear to auscultation Cardiovascular RRR, no murmur, no edema Gastrointestinal (Abdomen) normal bowel sounds, soft, nontender, no hepatosplenomegaly (ostomy in place, good function today) Musculoskeletal no cyanosis or clubbing, extremities motor strength 5/5 (s/p right toe amputation) Skin no rashes, warm and dry Neurologic patellar DTR's 2+ bilat, sensation intact and PERRL, EOMI, accommodation nl, no face palsy, no dysarthria Psychiatric A+Ox3, euthymic affect Lymphatic no cervical or axillary lymphadenopathy Discharge Data Allergies Allergy/AdvReac Type Severity Reaction Status Date / Time tramadol Allergy Unknown dizziness;a Verified 04/26/19 05:59 nxiety;sob gabapentin Allergy Unknown Verified 04/26/19 11:26 oxycodone AdvReac Severe DELIRIUM Verified 04/26/19 05:59 Consultations 04/26/19 18:40 ED Decision to Admit Stat 04/26/19 20:17 Consult Nephrology Routine 04/27/19 10:24 Consult Vascular Surgery Routine 04/27/19 20:18 Consult General Surgery Stat 04/28/19 17:23 Consult Case Management - Discharge Planning Routine 04/28/19 18:42 Consult Case Management - Discharge Planning Routine Consult Marker Maker Routine Procedures Performed Operation Date: 04/28/19 13:55 Actual Procedures p Exploratory Laparotomy(Not Applicable) - Sj Restrepo MD, FACS Ordered Studies 04/27/19 18:06 CT abd pelvis wo con Urgent 04/28/19 09:06 CT angio abdomen pelvis w con Urgent 04/28/19 14:38 US - OR guided needle placemen Stat Hospital Course (1) Ischemic colitis: Presented with abd pain ongoing for about 1 week, N/V, persistent orthostatic hypotension contributing to ischemia Found to have ischemic colitis on CT on 04/27, lactate carlos enrique, spiked a fever, WBC count continued to rise, PCT continued to rise. 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 Tan-therefore no vascular intervention was indicated Now postop day #9 status post Subtotal colectomy with end ileostomy and Driss pouch by Dr. Restrepo during which the surgeon found necrotic bowel especially of the ascending and transverse colon and also removed part of the sigmoid colon Was on the mechanical vent overnight after the procedure and then extubated on 04/29 -Continues to be doing well, tolerating diet, no nausea, minimal abdominal pain, ostomy functioning eating all of his meals for several days -Continue out of bed to chair and ambulation as tolerated, PT/OT consulted -Pain control as needed with Tylenol anticipate needing rehab, he accepts this accepted to [facility] (2) Fever: Patient spiked a fever the day after admission on 04/27 With nausea and vomiting day before and left lower lobe infiltrate on chest x- ray, initially suspected aspiration pneumonia, however now with known ischemic colitis as above Leukocytosis was resolved postoperatively, but now is back up, no other issues -Remains on Zosyn -follow BCxs-NGTD -Acetaminophen as needed for fever (3) Anemia of chronic disease: With acute blood loss anemia in addition to anemia of chronic renal disease Hemoglobin stable at 10 but then dropped to 8.3 on the day of his surgery, then had surgery and received 1 unit of PRBCs on 04/28 intraoperatively Hb up to 8.9 on 05/05 after one unit transfued on 05/04 receiving Venofer and EPO from nephrology Hb is low but stable (4) Aspiration pneumonia: Suspected aspiration pneumonia as above Secondary to nausea and vomiting on the day of admission With left lower lobe infiltrate seen on chest x-ray, fever, leukocytosis, elevated procalcitonin which was likely from ischemic colitis rather than a true PNA -Treatment as above with antibiotics Not requiring oxygen, would repeat chest x-ray eventually to ensure resolution of infiltrate repeat 2 view x-ray tomorrow completed 7 days total of antibiotics, on 05/04 (5) Nausea & vomiting: Initially thought to be from orthostasis and severe constipation Now known to be from ischemic colitis no further vomiting, eating all of his meals (6) Abdominal pain: secondary to ischemic colitis and known postoperative pain-improved, only using Tylenol as needed only has pain with movement, really just muscular pain (7) Orthostatic hypotension: Was on midodrine as an outpatient, long-standing for years, recently had the dose increased to 5 mg 4 times daily on dialysis days approximately 2 weeks prior to admission Had blood pressure down in the 60s systolic with dialysis on the day after admission which likely led to worsening of his ischemic colitis BPs are actually much improved now despite being off of midodrine since 04/27 -continue to hold midodrine due to ischemic colitis BP stable (8) Atrial fibrillation: Was in normal sinus rhythm here throughout the entire hospital stay until the evening of 05/01 when he went into atrial fibrillation with rates in the 80s -Continue amiodarone 200 mg every other day as before He cannot tolerate beta-blockers due to severe orthostatic hypotension -Follows with Dr. Araujo for cardiology-not consulted here -His Coreg was discontinued several weeks ago for low blood pressures Not on anticoagulation-unclear reason why, but would not start at this time due to significant anemia and recent surgery aspirin resumed (9) Hx of CABG: Two-vessel CABG simultaneously with his MVR -holding po meds of aspirin, Plavix due to recent surgery, but can restart statin -Not on beta-maxim due to hypotension as above -Would try to restart at least the aspirin possibly if okay with general surgery-we will need to discuss with surgery (10) GERD (gastroesophageal reflux disease): -Continue Protonix and Pepcid 20 mg (11) Constipation: No bowel movement for 2 weeks prior to admission Had a multiple bowel movements on admission after bisacodyl suppository and Emily xalate upon admission Resolved (12) Hypothyroidism: TSH is stable -Continue levothyroxine (13) CAD (coronary artery disease): no chest pain or pressure antiplatelet therapy resumed (14) ESRD (end stage renal disease) on dialysis: Appreciate nephrology consultation Had hemodialysis on 04/27 with removal of only 400 mL's of fluid, then again on 04/29 with removal of 1 L of fluid Tolerated dialysis and electrolytes are stable -Follow BMP -Restarted PhosLo now that he is tolerating p.o. and eating -Continues on Thursday hemodialysis schedule per nephrology, only targeting 2L of UF per session to avoid hypotension consult [facility] at rehab (15) Sepsis: As above, due to ischemic colitis, now resolved (16) Hyperkalemia: Potassium 5.8 on admission he was given calcium gluconate and Kayexalate. now resolved -Follow BMP -Continue dialysis (17) Ileostomy in place: Noted, as above Will need ostomy teaching for diet, typically on high sodium diet for ostomy losses however, he should also have a renal diet which is low sodium plan for regular diet which would be in between (18) DVT prophylaxis: Heparin subcu, add on SCDs and MARJORIE hose which also help with any orthostasis Disposition- medical floor PT/OT consults placed, will likely need rehab placement when medically stable DNR/DNI Total Time Total Time Spent Total Time Spent (In Minutes): 33 minutes Total Time Includes: Examination of the Patient, Discharge Planning and Medication Reconciliation Discharge Plan Discharge Items Patient Disposition: Transfer Inpatient Rehab Fac Reason For Visit: HYPERKALEMIA Discharge Diagnosis: Ischemic colitis, s/p emergent colectomy, ileostomy ESRD on HD Pneumonia, aspiration Condition: Good Discharge Goals: Improve function and Increase independence Activity: Resume your previous activity Non-emergency contact: Primary Care Provider, Surgeon and Scalder Call non-emergency contact if: you have any medication questions and your symptoms worsen Follow-up/Referrals: ,Emil Cam MD [Primary Care Provider] - 05/03/19 11:00 am (Please, follow up at Dr. Lazcano's office with his associate, Rosemarie MORILLO, on ThursdayMay 03 at 11:00 am. *If you need to change this appointment, call the office at [phone].) Diet: Regular Diet Comment: regular diet because balance of ileostomy and renal diet Addtl Provider Instructions: Medications: no new medications at this time Acute ischemic colitis, necrosis of transverse and ascending colon, s/p subtotal colectomy with ileostomy POD 9, doing well, no fever completed 10 days of antibiotics WBC has been elevated entire stay around 12-15k recommend follow up with Dr. Sj Restrepo in one week in the office for post op follow up ileostomy functioning well tolerating regular diet, note that he is on regular diet, this is intended to be a balance between renal diet and ileostomy diet ESRD on HD consult [facility] for HD ordered, last had HD on 05/06, tolerating well typically follows a MWF schedule continue PhosLo Anemia of chronic disease, due to ESRD as well getting Venofer intermittently as well as EPO per nephrology never had signs of bleeding did have one unit transfused with surgery on 04/28 and had an additional unit on 05/04 Hb is 8.0 today H/o orthostatic hypotenstion Coreg has been on hold since prior to surgery previously on Midodrine but no issues with orthostasis while here and Midodrine has been held entire admission Needs therapy to return to his baseline functional status FOLLOW UP - physician at [facility] - Dr. Sj Restrepo in 1-2 weeks for post op follow up - [facility] nephrology, consult for HD - Dr. Lazcano, one week after d/c from rehab Prescriptions: Continued Lyrica 75 mg capsule 75 mg PO DAILY RF: 0 lidocaine 4 % adhesive patch,medicated 1 patch TOP TID PRN (Reason: Allergic Symptoms) RF: 0 triamcinolone acetonide 0.1 % cream 1 appln TOP BID Qty: 453.6 RF: 3 polyethylene glycol 3350 [Miralax] 17 gram/dose powder 8.5 gm PO DAILY PRN (Reason: constipation) Qty: 119 RF: 0 azithromycin 500 mg Tablet 500 mg PO DIRECTED PRN (Reason: PRIOR TO DENTAL VISITS) RF: 0 Spiriva with HandiHaler 18 mcg Capsule, W/Inhalation Device 1 cap INHALATION DAILY RF: 0 omeprazole 20 mg Tablet,Delayed Release (Dr/Ec) 20 mg PO DAILY RF: 0 Biotene Dry Mouth Oral Rinse mouthwash 10 ml PO DAILY PRN (Reason: dry mouth) RF: 0 atorvastatin 40 mg Tablet 40 mg PO HS RF: 0 amiodarone 200 mg Tablet 200 mg PO Q OTHER DAY RF: 0 aspirin [Aspir-Low] 81 mg Tablet,Delayed Release (Dr/Ec) 81 mg PO QAM RF: 0 paroxetine HCl 20 mg Tablet 20 mg PO QAM RF: 0 albuterol sulfate 90 mcg/actuation Hfa Aerosol Inhaler 2 puff INHALATION Q6H PRN (Reason: Shortness Of Breath) RF: 0 calcium acetate 667 mg Capsule 667 mg PO TIDM RF: 0 Breo Ellipta 200-25 mcg/dose Blister With Device 1 inh INHALATION DAILY RF: 0 famotidine 20 mg tablet 20 mg PO 3XWK RF: 0 levothyroxine 75 mcg capsule 75 mcg PO HS RF: 0 ipratropium-albuterol 0.5 mg-3 mg(2.5 mg base)/3 mL solution for nebulization 3 ml INHALATION Q6H PRN (Reason: Shortness Of Breath) RF: 0 clopidogrel [Plavix] 75 mg tablet 75 mg PO DAILY Qty: 30 RF: 0 Discontinued cefadroxil 500 mg capsule 500 mg PO DAILY RF: 0 midodrine 5 mg tablet 5 mg PO .QID UD RF: 0 cyanocobalamin (vitamin B-12) 1,000 mcg Tablet 1,000 mcg PO 3XWK RF: 0 midodrine 5 mg tablet 5 mg PO TID RF: 0 Stand-Alone Forms: [facility] Discharge Orders: Discharge Order (Routine); Ordered 05/07/19 Ordered By: Deepak Quintero Skilled Items Patient informed of condition?: Yes DNR: Yes Discharge Level of Care: Acute rehab Communicable Disease: No Discharge Prognosis: Stable Admission Data Admit Date/Time: 04/26/19 18:52 Attending Provider: Deepak Quintero Admit Provider: Leon Hoffman Primary Care Provider: Pro,Emil W. Other Providers: Christina Landrum ; Rajesh Tan ; Kojo Mcdowell ; Jeremie Wisdom. Service: Medical Other Interventions: Discharge Summary Assessment (RN) Last Done: 05/07/19 10:34 Pending Studies at Discharge: No DC Date/Time DO NOT enter until pt leaves facility: 05/07/19 13:32
== END 2019-05-07 13:32 | DRG 853 ==
LOC: ED 15:07 → SUATTDRO 18:52 → 2E 18:52 → 1E 04-28 17:44 → 2S 04-30 18:43 → 4E 05-05 10:37

== ENCOUNTER 2019-05-23 23:41 | Inpatient (IN) ==
[2019-05-24 00:21] LABS: Basophils # (auto) 0.06 K/uL (0-0.2); Basophils % (auto) 0.7 %; Eosinophils % (auto) 5.8 %; Hematocrit (blood only) 26.5 % (42-52); Hemoglobin 8.7 g/dL (14.0-18.0); Immature Granulocytes # (auto) 0.04 K/uL (0.00-0.02); Immature Granulocytes % (auto) 0.5 %; Lymphocytes % (auto) 18.7 %; Mean Corpuscular Hgb Conc 32.8 g/dL (32-36); Mean Corpuscular Volume 95.7 fL (80-100); Mean Platelet Volume 8.5 fL (7.4-10.4); Monocytes # (auto) 0.79 K/uL (0.11-0.59); Monocytes % (auto) 9.2 %; Neutrophils # (auto) 5.57 K/uL (1.4-6.5); Neutrophils % (auto) 65.1 %; Platelet Count 176 K/uL (130-400); RDW Coefficient of Variation 17.7 % (11.5-14.5); RDW Standard Deviation 61.4 fL (36.4-46.3); Red Blood Count 2.77 M/uL (4.7-6.1); White Blood Count 8.56 K/uL (4.8-10.8)
[2019-05-24 00:36] LABS: INR 1.1 (0.9-1.1); Partial Thromboplastin Time 27.1 Seconds (21.0-31.0); Prothrombin Time 11.5 Seconds (9.0-12.0)
[2019-05-24 00:57] LABS: Blood Urea Nitrogen 22 mg/dl (7-18); Calcium 8.6 mg/dl (8.5-10.1); Carbon Dioxide 30 mmol/L (21-32); Chloride 98 mmol/L (98-107); Creatinine Clr Calc Pharmacy 13.5 ml/min; Est GFR (African American) 10.6; Est GFR (Non-African American) 9.2; Glucose 91 mg/dl (70-99); Magnesium 1.6 mg/dl (1.8-2.4); Potassium 4.9 mmol/L (3.5-5.1); Sodium 136 mmol/L (136-145); Troponin I < 0.015 ng/ml (0-0.045)
[2019-05-24] MEDS ORDERED: ACETAMINOPHEN 325 MG TAB PO PRN (03:12)
--- NOTE | 2019-05-24 03:44 | Emergency Department Note ---
Entered by Cristian Mas acting as a scribe for Torres Green MD ED Provider Note Name: Anders Perdue Age: 73, male Arrives Via: Ambulance Informant: Patient CC: SOB HPI: The patient is a 73 year old male who presents to the emergency department with complaints of constant SOB beginning today. The patient states that he was at dialysis today. He notes that he developed SOB while at dialysis, and he reports that his SOB worsened at 1930. Worse with exertion and laying flat. Better with sitting up. Admits he had mild wheezing. No cough, syncope, chest pain, fevers, chills, nausea, vomiting, let pain, back pain, nor other symptoms. Arrived via EMS. The patient states that he was given a breathing treatment en route to the emergency department. Notes history of CHF, COPD, and pneumonia in past. ROS: See above HPI for pertinent positives & negatives. A total of 10 systems reviewed and were otherwise negative. Past Medical History: Please see medical history. Past Surgical History: Please see surgical history. Family History: [place] Social History: , lives with family, former smoker, uses alcohol, does not use cigarettes Home Medications: Please see medication list. Allergies: Tramadol, gabapentin, oxycodone Physical: Vitals: BP 114/61, Pulse 82, Resp 25, Temp 98.4 F, O2 Sat 94 Exam: GENERAL: Patient is unwell appearing and in moderate distress. EYES: No scleral icterus, unremarkable pupils. ENT: Mucous membranes moist, no nasal congestion. NECK: No masses appreciated, no meningismus, trachea is midline. RESPIRATORY: No rhonchi. Crackles bilaterally with wet lung sounds throughout left lower lung, dyspneic, mildly tachypneic. CARDIOVASCULAR: Regular rate and rhythm. No murmurs, rubs, gallops appreciated. GASTROINTESTINAL: Abdomen soft, non-tender, no peritonitis. Bowel sounds positive. No masses appreciated. Mid right abdomen colostomy with brown stool in bag. BACK: No midline tenderness, no CVA tenderness EXTREMITIES: Normal motion all extremities, no cyanosis, no edema. Fistula in right arm, bilateral lower legs with peripheral vascular disease and multiple wound dressings, warm with capillary refill. NEUROLOGIC: Alert and oriented, no acute motor or sensory deficits, no focal weakness, cranial nerves grossly intact. SKIN: No rash, no jaundice, no diaphoresis. ED Course: Prior Medical Record, Triage/Nursing Notes, Medications, Allergies reviewed by Me [id number]: The patient was evaluated in room B6. A complete history and physical exam was performed. 0200: Upon reevaluation, the patient is stable. I discussed the findings and the treatment plan with the patient. He expresses agreement and understanding. I spoke with Dr. Akins of the [facility] Hospitalist Service. The patient will be evaluated for further management. Vital Signs: reviewed and remarkable for wnl Labs: Reviewed and remarkable for mild hypomag, mild LA elevation Interventions: saline lock Imaging: CHEST X-RAY: X ray results are stated below per my interpretation: Chest: 1 view: Bilateral lower lobe congestion with loss of diaphragm border new from previous cxr Radiology results as stated below per my review and the radiologist's interpretation: CT CHEST Without Contrast: Comparison CT chest 09/26/18. Stable scattered calcific densities in the left lower lobe. Stable dependent right pleural thickening with adjacent atelectasis. Mild centrilobular emphysema. No pleural effusion or pneumothorax. Previous midline sternotomy. Cardiomegaly with coronary artery calcification. No pericardial effusion. Thoracic aortic atherosclerosis. Ectasia of ascending thoracic aorta measuring 4.2cm. No aneurysm by size criteria. Normal caliber main pulmonary artery. No adenopathy. No acute osseous findings. Radiologist: Anni Sesay MD. EKG: Per My Interpretation: Indication Shortness of breath: 1st degee av block with sinus rhythm 77 bpm qtc 475 and no ectopy nor ischemia. Similar to previous. Consults: 0200: I reviewed the patient's case with Dr. Akins - Hospitalist, [facility]. He will evaluate the patient for further management. Blood pressure: Normal. No Referral necessary Disposition: Hospitalization Differentials: Differential Diagnosis includes but is not limited to dehydration, stroke, anemia, hypoglycemia, hyponatremia, hypernatremia, urinary tract infection, pneumonia, bronchitis, sepsis, gastroenteritis, additional abdominal pathology, metabolic abnormalities and infections. Medical Decision Making: Pleasant 73 yr old male with complex past and recent medical history recently discharged from hospital, and then to home from Rehab, after admission for ischemic bowel and colectomy. He has long history of copd, chf, and is dialysis patient who had 2 kg fluid taken off earlier in day. He appears tired and mild dyspneic though is not currently hypoxic. Lung exam sounds almost as if CHF though by exam otherwise he does not look overloaded. He is afebrile and WBC normal. CXR a bit on wet side vs infectious. He has mild LA but that in setting of normal other is of uncertain etiology in dialysis patient who reportedly had some mild hypoxia for EMS. No history of DVT/PE, though only on Plavix. With dialysis patient would prefer to hold off on CT PE study. Other labs show mildly low mag which may explain some of weakness. Reviewed with Hospitalist who after evaluating patient feel bringing in for further work-up and evaluation indicated. Patient comfortable with this plan. We did obtain blood cultures while here in ED on arrival, though will hold on abx for now. Impression: Shortness of breath, hypomagnesemia, generalized weakness Torres Green MD The scribe's documentation has been prepared under my direction and personally reviewed by me in its entirety. I confirm that the note above accurately reflects all work, treatment, procedures, and medical decision making performed by me. Impression & Plan Shortness of breath, Hypomagnesemia, Generalized weakness Past Med/Surg History Medical History Vitamin D deficiency (Acute) Hypertension (Acute) Necrosis of colon Ischemic colitis Aspiration pneumonia CAD (coronary artery disease) (Chronic) Diastolic CHF (Chronic) DVT (deep venous thrombosis) (Acute) Anemia (Inactive) ESRD (end stage renal disease) on dialysis (Chronic) Proctocolitis (Chronic) Peripheral vascular disease (Chronic) Hypothyroid (Chronic) Hyperlipidemia (Chronic) Delirium (Resolved) Diarrhea (Chronic) Non-healing wound (Chronic) COPD (chronic obstructive pulmonary disease) (Chronic) Chronic back pain (Chronic) Hypotension (Chronic) Dermatitis (Acute) Gangrene (Resolved) Atrial fibrillation (Resolved) AAA (abdominal aortic aneurysm) (Resolved) Anxiety (Chronic) Chronic GERD (Chronic) Myocardial infarct, old (Chronic) 2010 CVA (cerebral vascular accident) (Chronic) "NO RESIDUAL EFFECTS" PER RECORDS GERD (gastroesophageal reflux disease) (Chronic) Peripheral vascular disease (Chronic) H/O: gout (Chronic) Anxiety (Chronic) Depression (Chronic) Atrial fibrillation (Chronic) PAROXYSMAL- ON ASA PER RECORDS Gangrene of toe (Acute) right toes REASON FOR PROCEDURE CAD (coronary artery disease) (Chronic) S/P CABG X2 (DURING MVR) 2010 Valvular disease (Chronic) S/P MVR (2010); ?AVR PER RECORDS Acute osteomyelitis of foot (Acute) AV fistula (Chronic) right arm Encounter for central line placement (Acute) ESRD (end stage renal disease) Surgical History S/P cholecystectomy (Resolved) S/P ablation of atrial fibrillation (Resolved) S/P CABG x 2 (Resolved) S/P MVR (mitral valve repair) (Resolved) S/P AAA repair (Resolved) Hx of CABG (Acute) S/P CABG X2 (DURING MVR) 2010 S/P cholecystectomy (Resolved) H/O abdominal aortic aneurysm repair (Resolved) 2011 H/O mitral valve repair (Resolved) 2010; ?AVR PER RECORDS H/O [id number] bypass (Resolved) 2012 Difficult intubation (Chronic) B/L Anteriogram, Right femoral to anterior tibial cadaver vein bypass= 08/06/18= Grade view 4, MAC 3 --> Glidescope #3, ETT 7.5 at [facility] Social History Preferred Language: Belarusian Communication Ability: Effective Visual Impairment: No Limitations Beliefs That Will Affect Care: None marital status: / marital status details: 1 daughter Current Living Situation: Family Current Living Situation Comment: lives with his sister current occupational status: 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 Safety Concerns: Feels Safe At This Time Smoking Status: Former smoker Tobacco Type: cigarettes Do You Dip or Chew Tobacco: No Second Hand Exposure: No Hx Alcohol Use: No Hx Substance Use: No Results & Data Vital Signs Vital Signs - 24 hr 05/23/19 23:47 05/23/19 23:55 05/24/19 00:57 Temperature 36.9 C 37 C Temperature Source Oral Oral Sepsis Recent Fever Within 48 Hours No Sepsis Action Taken by Nursing No Action Required Pulse Rate 82 Pulse Rate [Apical] 75 Respiratory Rate 25 H 20 Respiratory Effort / Characteristics Non-Labored Short of Breath Respiratory Depth Normal Normal Respiratory Pattern Regular Blood Pressure 114/61 Blood Pressure [Left Arm] 108/54 L Blood Pressure Mean 78 Blood Pressure Mean [Left Arm] 72 Pulse Oximetry 99 94 97 Oxygen Delivery Method Aerosol Mask Room Air Room Air 05/24/19 02:35 05/24/19 02:45 Temperature Temperature Source Sepsis Recent Fever Within 48 Hours Sepsis Action Taken by Nursing Pulse Rate Pulse Rate [Apical] 75 Respiratory Rate 20 Respiratory Effort / Characteristics Respiratory Depth Normal Respiratory Pattern Blood Pressure Blood Pressure [Left Arm] 114/57 L Blood Pressure Mean Blood Pressure Mean [Left Arm] 76 Pulse Oximetry 97 Oxygen Delivery Method Room Air Room Air Home Medications Current Medication List: was personally reviewed by me Laboratory Data Attestation: I reviewed the patient's lab results. Result diagrams: 05/24/19 00:09 05/24/19 00:09 Lab Results 05/24/19 05/24/19 05/24/19 Range/Units 00:09 00:09 00:09 WBC 8.56 (4.8-10.8) K/uL RBC 2.77 L (4.7-6.1) M/uL Hgb 8.7 L (14.0-18.0) g/dL Hct 26.5 L (42-52) % MCV 95.7 (80-100) fL MCH 31.4 (25-34) pg MCHC 32.8 (32-36) g/dL RDW Std Deviation 61.4 H (36.4-46.3) fL RDW Coeff of Jolanta 17.7 H (11.5-14.5) % Plt Count 176 (130-400) K/uL MPV 8.5 (7.4-10.4) fL Immature Gran % (Auto) 0.5 % Neut % (Auto) 65.1 % Lymph % (Auto) 18.7 % Petroleum % (Auto) 9.2 % Eos % (Auto) 5.8 % Baso % (Auto) 0.7 % Immature Gran # (Auto) 0.04 H (0.00-0.02) K/uL Neut # (Auto) 5.57 (1.4-6.5) K/uL Lymph # (Auto) 1.60 (1.2-3.4) K/uL Petroleum # (Auto) 0.79 H (0.11-0.59) K/uL Eos # (Auto) 0.50 (0-0.5) K/uL Baso # (Auto) 0.06 (0-0.2) K/uL PT 11.5 (9.0-12.0) Seconds INR 1.1 (0.9-1.1) APTT 27.1 (21.0-31.0) Seconds PTT Ratio 1.0 Sodium 136 (136-145) mmol/L Potassium 4.9 (3.5-5.1) mmol/L Chloride 98 (98-107) mmol/L Carbon Dioxide 30 (21-32) mmol/L Anion Gap 8.0 (3-11) BUN 22 H (7-18) mg/dl Creatinine 5.65 H* (0.6-1.4) mg/dl Est Cr Clr Drug Dosing 13.5 ml/min Est GFR ( Amer) 10.6 Est GFR (Non-Af Amer) 9.2 BUN/Creatinine Ratio 4.0 L (10-20) Glucose 91 (70-99) mg/dl Lactate (0.4-2.0) mmol/L Calcium 8.6 (8.5-10.1) mg/dl Magnesium 1.6 L (1.8-2.4) mg/dl Troponin I < 0.015 (0-0.045) ng/ml 05/24/19 Range/Units 00:09 WBC (4.8-10.8) K/uL RBC (4.7-6.1) M/uL Hgb (14.0-18.0) g/dL Hct (42-52) % MCV (80-100) fL MCH (25-34) pg MCHC (32-36) g/dL RDW Std Deviation (36.4-46.3) fL RDW Coeff of Jolanta (11.5-14.5) % Plt Count (130-400) K/uL MPV (7.4-10.4) fL Immature Gran % (Auto) % Neut % (Auto) % Lymph % (Auto) % Petroleum % (Auto) % Eos % (Auto) % Baso % (Auto) % Immature Gran # (Auto) (0.00-0.02) K/uL Neut # (Auto) (1.4-6.5) K/uL Lymph # (Auto) (1.2-3.4) K/uL Petroleum # (Auto) (0.11-0.59) K/uL Eos # (Auto) (0-0.5) K/uL Baso # (Auto) (0-0.2) K/uL PT (9.0-12.0) Seconds INR (0.9-1.1) APTT (21.0-31.0) Seconds PTT Ratio Sodium (136-145) mmol/L Potassium (3.5-5.1) mmol/L Chloride (98-107) mmol/L Carbon Dioxide (21-32) mmol/L Anion Gap (3-11) BUN (7-18) mg/dl Creatinine (0.6-1.4) mg/dl Est Cr Clr Drug Dosing ml/min Est GFR ( Amer) Est GFR (Non-Af Amer) BUN/Creatinine Ratio (10-20) Glucose (70-99) mg/dl Lactate 2.1 H* (0.4-2.0) mmol/L Calcium (8.5-10.1) mg/dl Magnesium (1.8-2.4) mg/dl Troponin I (0-0.045) ng/ml Discharge Plan Visit Data *Final* Discharge Date/Time: 05/24/19 02:45 Chief Complaint: Shortness of Breath/Dyspnea Stated Complaint: SHORT OF BREATH ED Provider: Torres Green Discharge Problem: Shortness of breath, Hypomagnesemia, Generalized weakness Patient Disposition: Admitted As Inpatient Discharge Instructions Interventions: ED Discharge Assessment Last Done: 05/24/19 02:45 The scribe's documentation has been prepared under my direction and personally reviewed by me in its entirety. I confirm that the note above accurately reflects all work, treatment, procedures, and medical decision making performed by me.
--- NOTE | 2019-05-24 03:50 | History & Physical Report ---
Date of Service May 24, 2019 Assessment & Plan (1) Shortness of breath: 73 y/o M with a complex history including ESRD, CAD, ischemic bowel, AF, CVA, anemia. Presents with a chief complaint of dyspnea. He denies CP a fever or a productive cough but does report feeling excessively cold. The pt exhibited intermittent hypoxia while in the ER with a saturation ranging between 86-92%. A CT of the chest without contrast did not elucidate a cause. He had attended dialysis earlier in the day and it was reported that 2L were removed. 1) Dyspnea - no clear cause - may need additional dialysis. We would also consider a CT with contrast to r/o a PE. He is placed on scheduled nebs and an 02 protocol in the interim. LE doppler is pending on admission. 2) AF - paroxysmal - cont Amio, ASA, Plavix 3) ESRD - consult nephrology if he is to remain hospitalized 4) CAD - no evidence of ACS - cont ASA, Plavix, statin 5) Hypothyroidism - cont Synthroid 7) Anemia - stable Full code - Heparin prophylaxis Total time for this admit including review of labs, meds, imaging, extensive r ecords - discussion with pt, sister, ER attending - 49 min Present on Admission?: Yes History of Present Illness Chief Complaint: Shortness of breath Primary Care Provider: Emil Lazcano MD 73 y/o M with a complex history including ESRD, CAD, ischemic bowel, AF, CVA, anemia. Presents with a chief complaint of dyspnea. He denies CP a fever or a productive cough but does report feeling excessively cold. The pt exhibited intermittent hypoxia while in the ER with a saturation ranging between 86-92%. A CT of the chest without contrast did not elucidate a cause. He had attended dialysis earlier in the day and it was reported that 2L were removed. PMH: 1) ESRD - dialysis M,W,F 2) CAD 3) HTN 4) AF 5) History of CVA - no residuals 6) Early dementia 7) Ischemic colitis - 04/2019 8) PVD 9) GERD 10) Hypothyroidism 11) Anemia - Hb 7-9 Surgery: 1) AVR 2010 2) CABG 2V - 2010 3) RUE dialysis fistula 4) Emergency surgery and colostomy placement 04/2019 - due for reversal 10/2019 Social: Does not smoke or drink Family: Father due to [place] Allergies Allergy/AdvReac Type Severity Reaction Status Date / Time tramadol Allergy Unknown dizziness;a Verified 05/24/19 02:02 nxiety;sob gabapentin Allergy Unknown Verified 05/24/19 02:02 oxycodone AdvReac Severe DELIRIUM Verified 05/24/19 02:02 Home Medications Home Medications Medication Instructions Recorded Confirmed Type Breo Ellipta 1 inh INHALATION QAM 08/23/18 05/24/19 History albuterol sulfate 2 puff INHALATION Q6H PRN 08/23/18 05/24/19 History amiodarone 200 mg PO Q OTHER DAY 08/23/18 05/24/19 History aspirin [Aspir-Low] 81 mg PO QAM 08/23/18 05/24/19 History atorvastatin 40 mg PO HS 08/23/18 05/24/19 History calcium acetate 667 mg PO TIDM 08/23/18 05/24/19 History paroxetine HCl 20 mg PO QAM 08/23/18 05/24/19 History Spiriva with HandiHaler 1 cap INHALATION QAM 08/30/18 05/24/19 History azithromycin 500 mg PO DIRECTED PRN 08/30/18 05/24/19 History omeprazole 20 mg PO QAM 08/30/18 05/24/19 History pregabalin 75 mg capsule 75 mg PO QAM cap 02/10/19 05/24/19 History famotidine 20 mg tablet 20 mg PO [id number] tab 03/31/19 05/24/19 History levothyroxine 75 mcg capsule 75 mcg PO QAM cap 03/31/19 05/24/19 History lidocaine 5 % topical patch 2 patch TRANSDERMAL QAM #30 ea 05/18/19 05/24/19 History clopidogrel [Plavix] 75 mg PO QAM 05/24/19 05/24/19 History darbepoetin lilyl in polysorbat 100 mcg SUBCUT UD 05/24/19 05/24/19 History [Aranesp (in polysorbate)] docusate sodium 100 mg PO BID 05/24/19 05/24/19 History temazepam 15 mg PO HS PRN 05/24/19 05/24/19 History Past Med/Surg History Medical History Vitamin D deficiency (Acute) Hypertension (Acute) Necrosis of colon Ischemic colitis Aspiration pneumonia CAD (coronary artery disease) (Chronic) Diastolic CHF (Chronic) DVT (deep venous thrombosis) (Acute) Anemia (Inactive) ESRD (end stage renal disease) on dialysis (Chronic) Proctocolitis (Chronic) Peripheral vascular disease (Chronic) Hypothyroid (Chronic) Hyperlipidemia (Chronic) Delirium (Resolved) Diarrhea (Chronic) Non-healing wound (Chronic) COPD (chronic obstructive pulmonary disease) (Chronic) Chronic back pain (Chronic) Hypotension (Chronic) Dermatitis (Acute) Gangrene (Resolved) Atrial fibrillation (Resolved) AAA (abdominal aortic aneurysm) (Resolved) Anxiety (Chronic) Chronic GERD (Chronic) Myocardial infarct, old (Chronic) 2010 CVA (cerebral vascular accident) (Chronic) "NO RESIDUAL EFFECTS" PER RECORDS GERD (gastroesophageal reflux disease) (Chronic) Peripheral vascular disease (Chronic) H/O: gout (Chronic) Anxiety (Chronic) Depression (Chronic) Atrial fibrillation (Chronic) PAROXYSMAL- ON ASA PER RECORDS Gangrene of toe (Acute) right toes REASON FOR PROCEDURE CAD (coronary artery disease) (Chronic) S/P CABG X2 (DURING MVR) 2010 Valvular disease (Chronic) S/P MVR (2010); ?AVR PER RECORDS Acute osteomyelitis of foot (Acute) AV fistula (Chronic) right arm Encounter for central line placement (Acute) ESRD (end stage renal disease) Surgical History S/P cholecystectomy (Resolved) S/P ablation of atrial fibrillation (Resolved) S/P CABG x 2 (Resolved) S/P MVR (mitral valve repair) (Resolved) S/P AAA repair (Resolved) Hx of CABG (Acute) S/P CABG X2 (DURING MVR) 2010 S/P cholecystectomy (Resolved) H/O abdominal aortic aneurysm repair (Resolved) 2011 H/O mitral valve repair (Resolved) 2010; ?AVR PER RECORDS H/O [id number] bypass (Resolved) 2013 Difficult intubation (Chronic) B/L Anteriogram, Right femoral to anterior tibial cadaver vein bypass= 08/06/18= Grade view 4, MAC 3 --> Glidescope #3, ETT 7.5 at [facility] Social History Preferred Language: Kosovan Communication Ability: Effective Visual Impairment: No Limitations Beliefs That Will Affect Care: None marital status: / marital status details: 1 daughter Current Living Situation: Family Current Living Situation Comment: lives with his sister current occupational status: 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 Safety Concerns: Feels Safe At This Time Smoking Status: Former smoker Tobacco Type: cigarettes Do You Dip or Chew Tobacco: No Second Hand Exposure: No Hx Alcohol Use: No Hx Substance Use: No Review of Systems Review of Systems: Gen: Denies fevers, night sweats, rigors, fatigue, malaise, weight loss/gain - reports feeling cold without rigors ENT: Denies congestion, throat pain, hearing loss Eyes: Denies acute visual changes CV: Denies CP, palpitations Pulmonary: +SOB GI: Denies N/V, diarrhea, constipation Neuro: Denies acute or unilateral weakness, acute gait impairment, headache or acute visual changes Musculoskeletal: Denies joint pain, inflammation Endocrine: Denies polydipsia, polyuria Skin: Denies acute rashes or ulcers Physical Exam Physical Exam: General: AAO x 3, no distress ENT: No erythema or exudates, no thrush Eyes: SANDRA, EOMI Head and neck: Normocephalic, atraumatic, No JVD, neck is supple. Chest/heart: Nontender, S1,2, irr, + mild murmur, no gallops - large sternotomy scar Lungs: CTAB, no wheezing or crackles Abdomen: Nontender, nondistended, BS+ Neuro: AAO x 3, speech is clear, no unilateral weakness or loss of sensation, coordination intact Musculoskeletal: + edema Skin: No acute rashes or ulcers Extremities: No clubbing, cyanosis + edema Results & Data Vital Signs (Past 12 Hours) Vital Signs Temp Pulse Pulse Resp BP BP Pulse Ox 05/24/19 03:15 99.0 F 90 139/64 92 05/24/19 02:35 75 20 114/57 L 97 05/24/19 00:57 98.6 F 75 20 108/54 L 97 05/23/19 23:55 94 05/23/19 23:47 98.4 F 82 25 H 114/61 99 PG Care Time/CCT Total # of Minutes Spent Total Time Spent with Patient: Total time spent is greater than 50% in coordination of care (as documented) at patient's floor/unit and/or counseling patient:
[2019-05-24] MEDS: LEVOTHYROXINE SODIUM 75 MCG TABLET PO SCH (05:51)
[2019-05-24] MEDS: ALBUT/IPRATROP 3MG/0.5MG NEB 3 ML VIAL NEB SCH ×4 (07:11→19:28)
--- NOTE | 2019-05-24 07:15 | XRay Report ---
SINGLE VIEW CHEST CLINICAL HISTORY: Dyspnea. FINDINGS: An AP, portable, upright chest radiograph is compared to study dated 05/05/2019 and correlat ed with chest CT dated 09/26/2018. Partial degraded the patient is status post midline sternotomy and cardiac valve surgery. The heart is enlarged and there is atherosclerotic calcification of the thorac ic aorta. There is mild pulmonary vascular congestion. Small pleural effusions are noted with bibasil ar atelectasis. No pneumothorax is seen. The skeletal structures are osteopenic. The bony thorax is g rossly intact. IMPRESSION: 1. Cardiomegaly with mild pulmonary vascular congestion. 2. Small pleural effusions with bibasilar atelectasis. Electronically signed by: Walker Ellis M.D. 05/24/2019 7:14 AM
--- NOTE | 2019-05-24 07:34 | CT Scan Report ---
CT SCAN OF THE CHEST WITHOUT IV CONTRAST CLINICAL HISTORY: Dyspnea. COMPARISON STUDY: Chest x-ray dated 05/24/2019. Chest CT scans dated 09/26/2018 and 11/15/2017. TECHNIQUE: CT scan of the thorax was performed from the thoracic inlet to the upper abdomen. Images are reviewed in the axial, sagittal, and coronal planes. IV contrast was not administered for this ex amination. A dose lowering technique was utilized adhering to the principles of ALARA. FINDINGS: Thyroid: Imaged portions of the thyroid gland are normal in size and attenuation. Thoracic aorta: There is atherosclerotic calcification of the thoracic aorta. There is aneurysm dilat ation of the ascending thoracic aorta which measures up to 4.6 cm in diameter. The remainder of the t horacic aorta is normal in caliber and the arch demonstrates standard 3-vessel anatomy. Heart: The patient is status post midline sternotomy and mitral valve surgery. The heart is enlarged and without pericardial effusion. The coronary arteries are densely calcified. The pulmonary trunk is dilated, measuring 3.8 cm in diameter. This suggests pulmonary artery hypertension. Lungs and pleural spaces: Mild emphysematous changes observed. Pleural thickening with dependent scar ring/atelectasis at the right lung base is similar to previous. No airspace consolidation is seen typ ical for pneumonia and there is no pleural effusion. Additional foci of parenchymal scarring are pres ent in the lower lobes. Scattered calcified granulomas are observed. The trachea and central airways are clear. Mediastinum: There are numerous subcentimeter mediastinal lymph nodes. Robyn: Not well assessed without IV contrast. Axillae: There is no axillary lymphadenopathy. Upper abdomen: A peripherally calcified splenic artery aneurysm measures up to 1.9 cm. Partially visu alized upper abdominal viscera is otherwise grossly unremarkable. Skeletal structures: The skeletal structures are osteopenic. Degenerative change and hyperkyphosis ar e noted in the thoracic spine. Arthritic change is seen in the shoulders. There are healed left-sided rib fractures. No lytic or blastic bony lesions are seen. IMPRESSION: 1. Chronic parenchymal changes as above. There is no airspace consolidation typical for pneumonia or pleural effusion. 2. Cardiomegaly and mild emphysema. 3. 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 This is similar to previous. 4. There is a 1.9 cm peripherally calcified splenic artery aneurysm. 5. Additional findings as above. Electronically signed by: Walker Ellis M.D. 05/24/2019 7:33 AM
[2019-05-24] MEDS ORDERED: MAGNESIUM SULFATE / D5W 1 GM/100 ML BAG IV ONE (09:24)
[2019-05-24] MEDS: CALCIUM ACETATE 667 MG CAP PO SCH ×3 (10:22→17:08)
[2019-05-24] MEDS: LIDOCAINE 5% 1 PATCH TD SCH (10:23)
[2019-05-24] MEDS: PARoxetine HCl 20 MG TAB PO SCH (10:26)
[2019-05-24] MEDS: DOCUSATE SODIUM 100 MG CAP PO SCH ×2 (10:26→20:21)
[2019-05-24] MEDS: PREGABALIN 75 MG CAP PO SCH (10:26)
[2019-05-24] MEDS: PANTOprazole 40 MG TAB PO SCH (10:26)
[2019-05-24] MEDS: HEPARIN SOD 5,000 UNIT/0.5 ML VIAL SQ SCH ×2 (10:26→20:21)
[2019-05-24] MEDS: ASPIRIN 81 MG ECTAB PO SCH (10:27)
[2019-05-24] MEDS: CLOPIDOGREL BISULFATE 75 MG TAB PO SCH (10:27)
--- NOTE | 2019-05-24 13:06 | Ultrasound Report ---
US venous doppler LE BI CLINICAL HISTORY: Leg swelling. History of right leg bypass. Recent vascular surgery within the left leg. COMPARISON STUDY: 08/30/2018 FINDINGS: Real-time and color flow Doppler imaging were performed. Flow was seen within the femoral, popliteal and calf veins with no intraluminal thrombus demonstrated. The saphenous vein is patent. There is a right leg bypass graft. The crow right popliteal artery is dilated measuring 32 mm. The left popliteal artery is also mildly dilated measuring 14 mm. IMPRESSION: No evidence of lower extremity DVT. Electronically signed by: Adonay Winston M.D. 05/24/2019 1:05 PM
--- NOTE | 2019-05-24 17:24 | XRay Report ---
XR chest 2V routine CLINICAL HISTORY: Shortness of breath. POSSIBLE RIGHT LOWER LOBE PNEUMONIA COMPARISON STUDY: 05/24/2019 FINDINGS: There are postsurgical changes of a midline sternotomy and valvular replacement. The heart is mildly enlarged. There is mild pulmonary vascular congestion similar to the prior study. There is stable blunting of the lateral costophrenic angles. Increased markings at the lung bases, likely repr esenting atelectasis/scar.[ IMPRESSION: 1. Persistent cardiomegaly with mild pulmonary vascular congestion 2. Trace pleural effusions with basilar atelectasis/scarring Electronically signed by: Adonay Winston M.D. 05/24/2019 4:18 PM
--- NOTE | 2019-05-24 19:54 | Hospitalist Progress Note ---
Date of Service May 24, 2019 Assessment & Plan (1) Shortness of breath: CT chest last evening w/o focal pneumonia. I repeated the cxr today (2-view) and there is still no readily seen pneumonia. [id number] he has symptoms of respiratory infection - cough, dyspnea, chills, anorexia, etc. Will recheck cbc and crp in am. If he continues to have focal rales in the right base consider empiric Rx for pneumonia. Consider repeat CT chest but this time w/ contrast to exclude PE. Follow blood cx's and serial exams. Does not appear volume overloaded at this time. Present on Admission?: Yes (2) Hypomagnesemia: mag sulfate 1gm x 1 repeat level AM likely due to ostomy losses Present on Admission?: Yes (3) Ileostomy in place: 2nd to subtotal colectomy last month due to severe ischemic colitis. ostomy intact. no evidence of dumping or high output at this time. Present on Admission?: Yes (4) Anemia, chronic renal failure: H/H stable / at baseline. CBC in am. defer Fe management to nephrology. Present on Admission?: Yes (5) Ischemic colitis: During prior hospital stay had severe colonic ischemic colitis leading to subtotal colectomy and ileostomy formation. He has done amazingly well from surgical standpoint in light of that protracted and complicated hospital stay. Present on Admission?: No (6) Hypothyroidism: TSH 04/13 was nl. cont synthroid. Present on Admission?: Yes (7) ESRD (end stage renal disease) on dialysis: consulted Dr Landrum from [facility] to assist with HD management. usual schedule - M//. Present on Admission?: Yes (8) CAD (coronary artery disease): no signs/symptoms of ACS. cont usual meds - asa, plavix, statin. cannot tolerate BB due to severe orthostasis. Present on Admission?: Yes (9) Atrial fibrillation: PAF. on amiodarone to maintain NSR. he is not on systemic anticoagulation. tele stable. (10) DVT prophylaxis: heparin 5000 BID Subjective pt continues to have nonproductive cough, dyspnea on exertion, lack of appetite (although the I/O flowsheets suggest he is eating 50-100% of meals) and fatigue today. no fever. had chills yesterday -- these are largely resolved. stool output via ostomy is about baseline. no abd pain. no chest pain. no nausea. Review of Systems Constitutional: no fever Respiratory: no pain on inspiration Cardiovascular: no chest pain, no orthopnea and no paroxysmal nocturnal dyspnea Gastrointestinal: no abdominal pain, no nausea and no vomiting Physical Exam Constitutional: well developed and well nourished; no acute distress, not ill appearing and not frail appearing ENMT: external ear and nose normal, oropharynx normal Respiratory: normal respiratory effort; no respiratory distress Auscultation: + crackles (scant right base); no bronchovesicular breath sounds Cardiovascular: Rate/Rhythm: regular rate and regular rhythm Heart Sounds: normal S1, normal S2 and + murmur (2/6 LSB) Vessels: posterior tibial pulses present and dorsalis pedis pulses present; no JVD Extremities: + edema Gastrointestinal (Abdomen): normal bowel sounds, soft, nontender, no hepatosplenomegaly ileostomy - stoma intact, liquid stool in bag Skin: + pallor multiple abrasions on legs (mainly left) AV fistula RUE with +bruit Psychiatric: A+Ox3, euthymic affect Results & Data Vital Signs (Past 12 Hours) Vital Signs Temp Pulse Pulse Pulse Resp BP Pulse Ox 05/24/19 19:31 76 16 93 05/24/19 15:11 76 18 96 05/24/19 09:00 76 05/24/19 08:03 36.8 C 80 19 117/59 L 96 Laboratory Results Laboratory Results - last 24 hr 05/24/19 05/24/19 05/24/19 00:09 00:09 00:09 WBC 8.56 RBC 2.77 L Hgb 8.7 L Hct 26.5 L MCV 95.7 MCH 31.4 MCHC 32.8 RDW Std Deviation 61.4 H RDW Coeff of Jolanta 17.7 H Plt Count 176 MPV 8.5 Immature Gran % (Auto) 0.5 Neut % (Auto) 65.1 Lymph % (Auto) 18.7 [place] % (Auto) 9.2 Eos % (Auto) 5.8 Baso % (Auto) 0.7 Immature Gran # (Auto) 0.04 H Neut # (Auto) 5.57 Lymph # (Auto) 1.60 [place] # (Auto) 0.79 H Eos # (Auto) 0.50 Baso # (Auto) 0.06 PT 11.5 INR 1.1 APTT 27.1 PTT Ratio 1.0 Sodium 136 Potassium 4.9 Chloride 98 Carbon Dioxide 30 Anion Gap 8.0 BUN 22 H Creatinine 5.65 H* Est Cr Clr Drug Dosing 13.5 Est GFR ( Amer) 10.6 Est GFR (Non-Af Amer) 9.2 BUN/Creatinine Ratio 4.0 L Glucose 91 Lactate Calcium 8.6 Magnesium 1.6 L Troponin I < 0.015 05/24/19 00:09 WBC RBC Hgb Hct MCV MCH MCHC RDW Std Deviation RDW Coeff of Jolanta Plt Count MPV Immature Gran % (Auto) Neut % (Auto) Lymph % (Auto) [place] % (Auto) Eos % (Auto) Baso % (Auto) Immature Gran # (Auto) Neut # (Auto) Lymph # (Auto) [place] # (Auto) Eos # (Auto) Baso # (Auto) PT INR APTT PTT Ratio Sodium Potassium Chloride Carbon Dioxide Anion Gap BUN Creatinine Est Cr Clr Drug Dosing Est GFR ( Amer) Est GFR (Non-Af Amer) BUN/Creatinine Ratio Glucose Lactate 2.1 H* Calcium Magnesium Troponin I PG Care Time/CCT Total # of Minutes Spent Total Time Spent with Patient: Total time spent is greater than 50% in coordination of care (as documented) at patient's floor/unit and/or counseling patient: (1) Anemia, chronic renal failure Chronic kidney disease stage: unspecified stage Qualified Code(s): N18.9 - Chronic kidney disease, unspecified; D63.1 - Anemia in chronic kidney disease (2) Hypothyroidism Hypothyroidism type: acquired Qualified Code(s): E03.9 - Hypothyroidism, unspecified (3) CAD (coronary artery disease) Coronary Disease-Associated Artery/Lesion type: [place] artery [place] vs. transplanted heart: [place] heart Associated angina: without angina Qualified Code(s): I25.10 - Atherosclerotic heart disease of [place] coronary artery without angina pectoris (4) Atrial fibrillation Atrial fibrillation type: paroxysmal Qualified Code(s): I48.0 - Paroxysmal atrial fibrillation
[2019-05-24] MEDS: ATORVASTATIN 40 MG TAB PO SCH (20:20)
[2019-05-24] MEDS: TEMAZEPAM 15 MG CAPSULE PO PRN (20:20)
[2019-05-25] MEDS: LEVOTHYROXINE SODIUM 75 MCG TABLET PO SCH (05:27)
[2019-05-25 06:27] LABS: Basophils # (auto) 0.05 K/uL (0-0.2); Basophils % (auto) 0.6 %; Eosinophils # (auto) 0.72 K/uL (0-0.5); Hematocrit (blood only) 26.7 % (42-52); Hemoglobin 8.5 g/dL (14.0-18.0); Immature Granulocytes # (auto) 0.01 K/uL (0.00-0.02); Immature Granulocytes % (auto) 0.1 %; Lymphocytes % (auto) 18.8 %; Mean Corpuscular Hgb Conc 31.8 g/dL (32-36); Mean Corpuscular Volume 99.6 fL (80-100); Mean Platelet Volume 8.1 fL (7.4-10.4); Monocytes # (auto) 0.84 K/uL (0.11-0.59); Monocytes % (auto) 10.5 %; Neutrophils # (auto) 4.88 K/uL (1.4-6.5); Platelet Count 140 K/uL (130-400); RDW Coefficient of Variation 17.9 % (11.5-14.5); Red Blood Count 2.68 M/uL (4.7-6.1)
[2019-05-25] MEDS: ALBUT/IPRATROP 3MG/0.5MG NEB 3 ML VIAL NEB SCH ×4 (07:06→19:01)
[2019-05-25 07:10] LABS: BUN Creatinine Ratio 4.3 (10-20); C Reactive Protein 4.1 mg/dl (0-0.29); Calcium 8.3 mg/dl (8.5-10.1); Creatinine Clr Calc Pharmacy 9.3 ml/min; Est GFR (African American) 6.1; Est GFR (Non-African American) 5.2; Magnesium 1.9 mg/dl (1.8-2.4)
[2019-05-25] MEDS ORDERED: HEPARIN SOD (PORCINE) 1000 UNIT/ML 10 ML VIAL IV ONE (07:17)
[2019-05-25] MEDS ORDERED: SODIUM CHLORIDE 0.9% 1000ML 1,000 ML IV PRN (07:17)
[2019-05-25] MEDS ORDERED: EPOETIN ALFA 20,000 UNITS/ML VIAL IV SCH (07:17)
[2019-05-25] MEDS ORDERED: IRON SUCROSE 100 MG in SYRINGE 0 ML IV SCH (07:30)
[2019-05-25] MEDS: PANTOprazole 40 MG TAB PO SCH (08:15)
[2019-05-25] MEDS: DOCUSATE SODIUM 100 MG CAP PO SCH ×2 (08:15→21:23)
[2019-05-25] MEDS: CLOPIDOGREL BISULFATE 75 MG TAB PO SCH (08:15)
[2019-05-25] MEDS: PARoxetine HCl 20 MG TAB PO SCH (08:16)
[2019-05-25] MEDS: ASPIRIN 81 MG ECTAB PO SCH (08:16)
[2019-05-25] MEDS: CALCIUM ACETATE 667 MG CAP PO SCH ×3 (08:16→17:05)
[2019-05-25] MEDS: LIDOCAINE 5% 1 PATCH TD SCH (08:16)
[2019-05-25] MEDS: PREGABALIN 75 MG CAP PO SCH (08:44)
[2019-05-25] MEDS ORDERED: FAMOTIDINE 20 MG TAB PO SCH (09:00)
[2019-05-25] MEDS ORDERED: AMIODARONE 200 MG TAB PO SCH (09:00)
[2019-05-25] MEDS: HEPARIN SOD (PORCINE) 1000 UNIT/ML 10 ML VIAL IV SCH ×3 (10:20→12:20)
[2019-05-25] MEDS: HEPARIN SOD 5,000 UNIT/0.5 ML VIAL SQ SCH ×2 (14:39→21:23)
--- NOTE | 2019-05-25 15:06 | Nephrology Consultation ---
Date of Consultation May 25, 2019 Assessment & Plan (1) ESRD (end stage renal disease) on dialysis: had routine HD earlier today ordere dby me w/ 2.5 L UF -cont to use avf -next ahd tentativley for 05/27 or as clinical status dictates -he has dyskalemia -- K 6 today > improves w/ HD Present on Admission?: Yes (2) Shortness of breath: improved/resolved. not overtly volume related; per primary service Present on Admission?: Yes (3) Anemia, chronic renal failure: got aggressive epo today on tx; got 100 mg venofer as well Present on Admission?: Yes History of Present Illness Reason for Consultation: ESRD on dialysis Requesting Physician: Dr Chacon Attending Physician: Tan Chacon History of Present Illness 73 y/o M whom I'm asked to see for dialysis care after he was admitted on 05/23 for evaluation of dyspnea and chills (no F, no rigors). Other PMH includes A fib, ischemic colitis s/p emergent subtotal colectomy w/ ileostomy creation 04/2019, severe PVD, copd, chronic anemia, hypothyroid; also s/p AAA repair, w/ CAD s/p CABG and mvr, w/ thoracic aortic aneurysm. He dialyzes under my care at [facility] via AVF. He had an extended series of acute inpt and inpt rehab hospitalizations from late summer 2017 through early 2018 for complications of PVD, including RLE lateral fasciotomy, as well as RLE TMA and RLE fem-ant tib cadaver vein bypass. He had had a full HD tx earlier in the day on 05/23 w/o incident and w/ 2L fluid removal. Had been feeling well but woke at home a few hours after treatment w/ above sx. Some sats in ER were on lower side in mid 80s on RA. CXR and chest CT were unrevealing for dyspnea etiology, though he is being treated for presumptive pneumonia given his sx. Pt had no noncough related chest pain, no leukocytosis, no hemodynamic instability; + nonoproductive cough. Allergies Allergy/AdvReac Type Severity Reaction Status Date / Time tramadol Allergy Unknown dizziness;a Verified 05/24/19 02:02 nxiety;sob gabapentin Allergy Unknown Verified 05/24/19 02:02 oxycodone AdvReac Severe DELIRIUM Verified 05/24/19 02:02 Home Medications Home Medications Medication Instructions Recorded Confirmed Type Breo Ellipta 1 inh INHALATION QAM 08/23/18 05/24/19 History albuterol sulfate 2 puff INHALATION Q6H PRN 08/23/18 05/24/19 History amiodarone 200 mg PO Q OTHER DAY 08/23/18 05/24/19 History aspirin [Aspir-Low] 81 mg PO QAM 08/23/18 05/24/19 History atorvastatin 40 mg PO HS 08/23/18 05/24/19 History calcium acetate 667 mg PO TIDM 08/23/18 05/24/19 History paroxetine HCl 20 mg PO QAM 08/23/18 05/24/19 History Spiriva with HandiHaler 1 cap INHALATION QAM 08/30/18 05/24/19 History azithromycin 500 mg PO DIRECTED PRN 08/30/18 05/24/19 History omeprazole 20 mg PO QAM 08/30/18 05/24/19 History pregabalin 75 mg capsule 75 mg PO QAM cap 02/10/19 05/24/19 History famotidine 20 mg tablet 20 mg PO [id number] tab 03/31/19 05/24/19 History levothyroxine 75 mcg capsule 75 mcg PO QAM cap 03/31/19 05/24/19 History lidocaine 5 % topical patch 2 patch TRANSDERMAL QAM #30 ea 05/18/19 05/24/19 History clopidogrel [Plavix] 75 mg PO QAM 05/24/19 05/24/19 History darbepoetin lilly in polysorbat 100 mcg SUBCUT UD 05/24/19 05/24/19 History [Aranesp (in polysorbate)] docusate sodium 100 mg PO BID 05/24/19 05/24/19 History temazepam 15 mg PO HS PRN 05/24/19 05/24/19 History Patient History Medical History Vitamin D deficiency (Acute) Hypertension (Acute) Necrosis of colon Ischemic colitis (Resolved) Aspiration pneumonia CAD (coronary artery disease) (Chronic) Diastolic CHF (Chronic) DVT (deep venous thrombosis) (Acute) Anemia (Inactive) ESRD (end stage renal disease) on dialysis (Chronic) Proctocolitis (Chronic) Peripheral vascular disease (Chronic) Hypothyroid (Chronic) Hyperlipidemia (Chronic) Delirium (Resolved) Diarrhea (Chronic) Non-healing wound (Chronic) COPD (chronic obstructive pulmonary disease) (Chronic) Chronic back pain (Chronic) Hypotension (Chronic) Dermatitis (Acute) Gangrene (Resolved) Atrial fibrillation (Resolved) AAA (abdominal aortic aneurysm) (Resolved) Anxiety (Chronic) Chronic GERD (Chronic) Myocardial infarct, old (Chronic) 2010 CVA (cerebral vascular accident) (Chronic) "NO RESIDUAL EFFECTS" PER RECORDS GERD (gastroesophageal reflux disease) (Chronic) Peripheral vascular disease (Chronic) H/O: gout (Chronic) Anxiety (Chronic) Depression (Chronic) Atrial fibrillation (Chronic) PAROXYSMAL- ON ASA PER RECORDS Gangrene of toe (Acute) right toes REASON FOR PROCEDURE CAD (coronary artery disease) (Chronic) S/P CABG X2 (DURING MVR) 2010 Valvular disease (Chronic) S/P MVR (2010); ?AVR PER RECORDS Acute osteomyelitis of foot (Acute) AV fistula (Chronic) right arm Encounter for central line placement (Acute) ESRD (end stage renal disease) Surgical History S/P cholecystectomy (Resolved) S/P ablation of atrial fibrillation (Resolved) S/P CABG x 2 (Resolved) S/P MVR (mitral valve repair) (Resolved) S/P AAA repair (Resolved) Hx of CABG (Acute) S/P CABG X2 (DURING MVR) 2010 S/P cholecystectomy (Resolved) H/O abdominal aortic aneurysm repair (Resolved) 2011 H/O mitral valve repair (Resolved) 2010; ?AVR PER RECORDS H/O [id number] bypass (Resolved) 2013 Difficult intubation (Chronic) B/L Anteriogram, Right femoral to anterior tibial cadaver vein bypass= 08/06/18= Grade view 4, MAC 3 --> Glidescope #3, ETT 7.5 at [facility] Social History Preferred Language: Armenian Communication Ability: Effective Visual Impairment: No Limitations Beliefs That Will Affect Care: None marital status: / marital status details: 1 daughter Current Living Situation: Family Current Living Situation Comment: lives with his sister current occupational status: 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 Safety Concerns: Feels Safe At This Time Smoking Status: Former smoker Tobacco Type: cigarettes Do You Dip or Chew Tobacco: No Second Hand Exposure: No Hx Alcohol Use: No Hx Substance Use: No Review of Systems Review of Systems: All systems reviewed & are unremarkable except as noted in HPI & below feels much improved today Constitutional: + fatigue and + weakness Eyes: no worsening vision Ear, Nose, Mouth, Throat: no dry mouth Respiratory: no cough, no change in sputum and no dyspnea Gastrointestinal: improved appetite; no changes in ostomy output Endocrine: + fatigue Hematologic / Lymphatic: no easy bleeding Physical Exam Constitutional: well developed and well nourished sitting in bed w/ empty brkfst tray on rA Eyes: EOM intact bilaterally ENMT: Ears: no external ear abnormality Nose: no external nose abnormality Mouth: + dry oral mucous membranes Neck: no nuchal rigidity Respiratory: normal respiratory effort Auscultation: + diminished lung sounds and + crackles (R base) Cardiovascular: Rate/Rhythm: regular rate and regular rhythm Heart Sounds: + murmur Extremities: + edema (trace BLE) Gastrointestinal (Abdomen): Inspection/Auscultation: normal bowel sounds Percussion/Palpation: abdomen soft; abdomen nontender ileostomy RUQ Musculoskeletal: Extremities: strength 5/5 throughout tompkins,, maneuvers in bed w/ care Skin: no rashes, warm and dry Neurologic: tompkins, fluent speech, no tremor Psychiatric: A+Ox3, euthymic affect Insight: good insight Judgement: good judgement Results & Data Vital Signs (Past 12 Hours) Vital Signs Temp Pulse Pulse Pulse Resp BP BP 05/25/19 14:56 77 18 05/25/19 13:45 36.9 C 79 114/56 L 05/25/19 13:20 78 100/46 L 05/25/19 13:00 77 103/55 L 05/25/19 12:40 76 113/55 L 05/25/19 12:20 80 95/47 L 05/25/19 12:00 75 96/49 L 05/25/19 11:55 36.8 C 05/25/19 11:40 75 102/50 L 05/25/19 11:20 73 99/53 L 05/25/19 11:14 69 14 05/25/19 11:00 74 112/46 L 05/25/19 10:40 75 99/54 L 05/25/19 10:20 73 95/50 L 05/25/19 10:00 72 118/91 05/25/19 09:40 78 118/91 05/25/19 09:32 72 117/62 05/25/19 09:13 37.1 C 75 05/25/19 08:11 36.7 C 84 18 131/75 05/25/19 08:00 71 05/25/19 07:06 77 20 05/25/19 04:00 36.7 C 72 17 124/70 Pulse Ox 05/25/19 14:56 96 05/25/19 13:45 05/25/19 13:20 05/25/19 13:00 05/25/19 12:40 05/25/19 12:20 05/25/19 12:00 05/25/19 11:55 100 05/25/19 11:40 05/25/19 11:20 05/25/19 11:14 98 05/25/19 11:00 05/25/19 10:40 05/25/19 10:20 05/25/19 10:00 05/25/19 09:40 05/25/19 09:32 05/25/19 09:13 05/25/19 08:11 94 05/25/19 08:00 05/25/19 07:06 95 05/25/19 04:00 94 Laboratory Results Abnormal lab results 05/25/19 05/25/19 Range/Units 06:11 06:11 RBC 2.68 L (4.7-6.1) M/uL Hgb 8.5 L (14.0-18.0) g/dL Hct 26.7 L (42-52) % MCHC 31.8 L (32-36) g/dL RDW Std Deviation 64.0 H (36.4-46.3) fL RDW Coeff of Jolanta 17.9 H (11.5-14.5) % [place] # (Auto) 0.84 H (0.11-0.59) K/uL Eos # (Auto) 0.72 H (0-0.5) K/uL Sodium 133 L (136-145) mmol/L Potassium 6.0 H D (3.5-5.1) mmol/L Chloride 96 L (98-107) mmol/L BUN 39 H D (7-18) mg/dl Creatinine 8.99 H* D (0.6-1.4) mg/dl BUN/Creatinine Ratio 4.3 L (10-20) Calcium 8.3 L (8.5-10.1) mg/dl C-Reactive Protein 4.10 H (0-0.29) mg/dl Diagnostic Findings reviewed (1) Anemia, chronic renal failure Chronic kidney disease stage: unspecified stage Qualified Code(s): N18.9 - Chronic kidney disease, unspecified; D63.1 - Anemia in chronic kidney disease
[2019-05-25] MEDS: FLUTICASONE/SALMETEROL 250/50 (ADVAIR) 14 PUFF/1 INHALER INH SCH ×2 (17:04→21:24)
[2019-05-25] MEDS: TEMAZEPAM 15 MG CAPSULE PO PRN (21:22)
[2019-05-25] MEDS: ATORVASTATIN 40 MG TAB PO SCH (21:23)
--- NOTE | 2019-05-26 05:10 | Hospitalist Progress Note ---
Date of Service May 25, 2019 Assessment & Plan (1) Shortness of breath: CT chest this admission w/o focal pneumonia. Repeat cxr yesterday w/o discrete infiltrates. Symptoms have improved with use of bronchodilators only. He has not received abx or steroids to alter his course. CRP only 4 today. He had symptoms of a respiratory illness (cough, dyspnea, chills, anorexia) but all of these symptoms are already improved and/or resolved. He has numerous risk factors for VTE (sedentary lifestyle, recurrent hospital stays, recent surgery, etc) and I ordered CTA chest today to r/o PE. However, cannot get large enough IV to perform this study. IV team tried numerous times for IV placement. will d/c the CTA chest. obtain VQ scan in am. if negative / low probability then will assume this was some sort of transient viral process? (2) Hypomagnesemia: resolved s/p mag replacement (3) Ileostomy in place: 2nd to subtotal colectomy last month due to severe ischemic colitis. ostomy intact. no evidence of dumping or high output at this time. (4) Anemia, chronic renal failure: H/H stable / at baseline. defer Fe management to nephrology. (5) Ischemic colitis: During prior hospital stay had severe colonic ischemic colitis leading to subtotal colectomy and ileostomy formation. He has done amazingly well from surgical standpoint in light of that protracted and complicated hospital stay. (6) Hypothyroidism: TSH 04/13 was nl. cont synthroid. (7) ESRD (end stage renal disease) on dialysis: appreciated [facility] to assist with HD management. usual schedule - M//. s/p HD today w/o incident. (8) CAD (coronary artery disease): no signs/symptoms of ACS. cont usual meds - asa, plavix, statin. cannot tolerate BB due to severe orthostasis. (9) Atrial fibrillation: PAF. on amiodarone to maintain NSR. he is not on systemic anticoagulation. tele stable. (10) DVT prophylaxis: heparin 5000 BID needs PT/OT evals to determine if safe to return home (lives w/ sister who assists with his care) very sedentary at baseline Subjective patient feels better today. appetite improved. dyspnea improved. no further chills. states the breathing treatments have helped relieve the chest symptoms. he reports having been dx with COPD years ago in [place], [place] (near [facility]) remote h/o smoking but didn't smoke for many years he mentions he often gets dyspneic just moving from the wheelchair to the bed at outpatient dialysis sessions tele normal overnight had HD w/o incident today reports minimal activity/walking staff walked him to the hallway and O2 sats stayed in mid 90s Review of Systems Constitutional: no fever, no chills, no body aches, no fatigue and no anorexia Respiratory: + cough; no hemoptysis, no sputum production and no wheezing Cardiovascular: no chest pain Gastrointestinal: no abdominal pain Physical Exam Constitutional: well developed and well nourished; no acute distress, not ill appearing and not frail appearing ENMT: external ear and nose normal, oropharynx normal Respiratory: normal respiratory effort; no respiratory distress Auscultation: + crackles (minimal bases) Cardiovascular: Rate/Rhythm: regular rate and regular rhythm Heart Sounds: normal S1, normal S2 and + murmur (2/6 LSB) Vessels: posterior tibial pulses present and dorsalis pedis pulses present; no JVD Extremities: no edema Gastrointestinal (Abdomen): normal bowel sounds, soft, nontender, no hepatosplenomegaly ileostomy in place; stoma intact; bag with liquid stool present Skin: + pallor abrasions left leg - no cellulitis Psychiatric: A+Ox3, euthymic affect Results & Data Vital Signs (Past 12 Hours) Vital Signs Temp Pulse Pulse Resp BP Pulse Ox 05/25/19 22:30 37.1 C 75 21 112/54 L 93 05/25/19 20:05 37.4 C 80 20 122/52 L 97 05/25/19 19:01 77 18 96 Laboratory Results Laboratory Results - last 24 hr 05/25/19 05/25/19 06:11 06:11 WBC 8.00 RBC 2.68 L Hgb 8.5 L Hct 26.7 L MCV 99.6 MCH 31.7 MCHC 31.8 L RDW Std Deviation 64.0 H RDW Coeff of Jolanta 17.9 H Plt Count 140 MPV 8.1 Immature Gran % (Auto) 0.1 Neut % (Auto) 61.0 Lymph % (Auto) 18.8 [place] % (Auto) 10.5 Eos % (Auto) 9.0 Baso % (Auto) 0.6 Immature Gran # (Auto) 0.01 Neut # (Auto) 4.88 Lymph # (Auto) 1.50 [place] # (Auto) 0.84 H Eos # (Auto) 0.72 H Baso # (Auto) 0.05 Sodium 133 L Potassium 6.0 H D Chloride 96 L Carbon Dioxide 30 Anion Gap 7.0 BUN 39 H D Creatinine 8.99 H* D Est Cr Clr Drug Dosing 9.3 Est GFR ( Amer) 6.1 Est GFR (Non-Af Amer) 5.2 BUN/Creatinine Ratio 4.3 L Glucose 82 Calcium 8.3 L Magnesium 1.9 C-Reactive Protein 4.10 H PG Care Time/CCT Total # of Minutes Spent Total Time Spent with Patient: Total time spent is greater than 50% in coordination of care (as documented) at patient's floor/unit and/or counseling patient: (1) Anemia, chronic renal failure Chronic kidney disease stage: unspecified stage Qualified Code(s): N18.9 - Chronic kidney disease, unspecified; D63.1 - Anemia in chronic kidney disease (2) Hypothyroidism Hypothyroidism type: acquired Qualified Code(s): E03.9 - Hypothyroidism, unspecified (3) CAD (coronary artery disease) Coronary Disease-Associated Artery/Lesion type: [place] artery [place] vs. transplanted heart: [place] heart Associated angina: without angina Qualified Code(s): I25.10 - Atherosclerotic heart disease of [place] coronary artery without angina pectoris (4) Atrial fibrillation Atrial fibrillation type: paroxysmal Qualified Code(s): I48.0 - Paroxysmal atrial fibrillation
[2019-05-26] MEDS: LEVOTHYROXINE SODIUM 75 MCG TABLET PO SCH (06:12)
[2019-05-26] MEDS: ALBUT/IPRATROP 3MG/0.5MG NEB 3 ML VIAL NEB SCH ×4 (07:30→19:09)
[2019-05-26] MEDS: CALCIUM ACETATE 667 MG CAP PO SCH ×3 (07:42→17:42)
[2019-05-26] MEDS: FLUTICASONE/SALMETEROL 250/50 (ADVAIR) 14 PUFF/1 INHALER INH SCH (07:42)
[2019-05-26] MEDS: PANTOprazole 40 MG TAB PO SCH (07:42)
[2019-05-26] MEDS: CLOPIDOGREL BISULFATE 75 MG TAB PO SCH (07:43)
[2019-05-26] MEDS: DOCUSATE SODIUM 100 MG CAP PO SCH (07:43)
[2019-05-26] MEDS: HEPARIN SOD 5,000 UNIT/0.5 ML VIAL SQ SCH (07:43)
[2019-05-26] MEDS: ASPIRIN 81 MG ECTAB PO SCH (07:43)
[2019-05-26] MEDS: PARoxetine HCl 20 MG TAB PO SCH (07:43)
[2019-05-26] MEDS: LIDOCAINE 5% 1 PATCH TD SCH (07:44)
[2019-05-26] MEDS: PREGABALIN 75 MG CAP PO SCH (07:45)
--- NOTE | 2019-05-26 09:46 | Nuclear Medicine Report ---
NM pul vent and perfuse CLINICAL HISTORY: Dyspnea. Chest pain. COMPARISON: None TECHNIQUE: For the ventilation portion of this exam, 32.8 mCi of DTPA was inhaled at 9:00 AM. Immed iately following inhalation, imaging of the chest was carried out in the anterior, posterior, left la teral, right lateral, LPO, RPO, THAI and DAWSON projections. For the perfusion portion of exam, 5.5 mCi of technetium 99m MAA was injected IV at 9:20 AM. Immediately following injection, imaging of the jenny st was carried out in the same projections. FINDINGS: Heterogeneous perfusion characteristics throughout the lower lobes bilaterally. The ventilation component of the study shows mild central air trapping. A major ventilation/perfusion mismatch is not appreciated. Defects within the left lower lobe on a trejo bsegmental basis are reasonably well matched. No evidence for major ventilation/perfusion mismatch. IMPRESSION: Low probability pulmonary embolus. The above report was generated using voice recognition software. It may contain grammatical, syntax or spelling errors. Electronically signed by: Kojo Tomlinson M.D. 05/26/2019 9:45 AM
--- NOTE | 2019-05-31 14:19 | Discharge Summary ---
Date of Service date of admission - 05/24/19 date of discharge - 05/26/19 Admission HPI Per Admitting Provider 73 y/o M with a complex history including ESRD on HD M/W/F, CAD s/p 2-vessel CABG, ischemic bowel s/p subtotal colectomy with ileostomy formation, PAF, CVA, anemia. Presents with a chief complaint of dyspnea. He denies chest pain, a fever or a productive cough but does report feeling excessively cold. The pt exhibited intermittent hypoxia while in the ER with a saturation ranging between 86-92%. A CT of the chest without contrast did not elucidate a cause. He had attended dialysis earlier in the day and it was reported that 2 liters of fluid was removed. Principal Diagnosis dyspnea - resolved; suspected viral URI/mild COPD exacerbation Discharge Exam Constitutional well developed and well nourished; no acute distress, not ill appearing and not frail appearing ENMT external ear and nose normal, oropharynx normal Respiratory normal respiratory effort; no respiratory distress Auscultation: + crackles (minimal bases) Cardiovascular Rate/Rhythm: regular rate and regular rhythm Heart Sounds: normal S1, normal S2 and + murmur (2/6 LSB) Vessels: posterior tibial pulses present and dorsalis pedis pulses present; no JVD Extremities: + AV fistula (right upper extremity ); no edema Gastrointestinal (Abdomen) normal bowel sounds, soft, nontender, no hepatosplenomegaly ileostomy in place; stoma healthy appearing Skin + pallor Psychiatric A+Ox3, euthymic affect Discharge Data Allergies Allergy/AdvReac Type Severity Reaction Status Date / Time tramadol Allergy Unknown dizziness;a Verified 05/31/19 11:18 nxiety;sob gabapentin Allergy Unknown Verified 05/31/19 11:18 oxycodone AdvReac Severe DELIRIUM Verified 05/31/19 11:18 Consultations [facility], OT Ordered Studies 1. LE venous doppler - negative for DVT either leg. 2. V/Q scan - low probability for PE. 3. CT chest - IMPRESSION: 1. Chronic parenchymal changes as above. There is no airspace consolidation typical for pneumonia or pleural effusion. 2. Cardiomegaly and mild emphysema. 3. 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 This is similar to previous. 4. There is a 1.9 cm peripherally calcified splenic artery aneurysm. Hospital Course (1) Shortness of breath: CT chest this admission w/o focal pneumonia. Multiple cxr's w/o discrete infiltrates. Symptoms improved with use of bronchodilators only. He did not receive antibiotics or steroids at any time. He had symptoms of a respiratory illness (cough, dyspnea, chills, anorexia) but all of these symptoms improved and/or resolved while hospitalized. He has numerous risk factors for VTE (sedentary lifestyle, recurrent hospital stays, recent surgery, etc) and CTA chest was ordered to r/o PE. However, due to lack of IV access, CTA chest could not be obtained. Thus, V/Q scan was completed and fortunately this showed low probability for PE. Ultimately it was felt that the patient had a fleeting viral illness and/or mild COPD exacerbation. He was sent home with albuterol nebs to use on PRN basis. I also asked him to talk with his PCP about obtaining PFTs as he was diagnosed with COPD several years ago in the [place] area. (2) Hypomagnesemia: resolved s/p mag replacement low mag was likely due to ileostomy (3) Ileostomy in place: 2nd to subtotal colectomy last month due to severe ischemic colitis. ostomy intact. no evidence of dumping or high output at this time. (4) Anemia, chronic renal failure: H/H stable / at baseline. defer Fe management to nephrology. discharge Hb was 8.5. (5) Ischemic colitis: During prior hospital stay had severe colonic ischemic colitis leading to subtotal colectomy and ileostomy formation. He has done amazingly well from surgical standpoint in light of that protracted and complicated hospital stay. (6) Hypothyroidism: TSH 04/13 was nl. cont synthroid. (7) ESRD (end stage renal disease) on dialysis: [facility] assisted with HD management while hospitalized. usual schedule - M/W/. (8) CAD (coronary artery disease): no signs/symptoms of ACS. cont usual meds - asa, plavix, statin. cannot tolerate BB due to severe orthostasis. (9) Atrial fibrillation: PAF. on amiodarone to maintain NSR. he is not on systemic anticoagulation. tele was stable while here. (10) COPD (chronic obstructive pulmonary disease): see discussion above in "shortness of breath" Total Time Total Time Spent Total Time Spent (In Minutes): 35 Total Time Includes: Examination of the Patient, Discharge Planning and Medication Reconciliation Discharge Plan Discharge Items Patient Disposition: Home - Home Health Services Reason For Visit: HYPOXIA Discharge Diagnosis: acute shortness of breath, cough - possibly due to viral respiratory illness. chronic shortness of breath - likely due to COPD and deconditioning. no pneumonia found. no excess fluid in the lungs found. no blood clots in the lungs found. Discharge Goals: Diagnostic testing and Therapeutic intervention Activity: Resume your previous activity Non-emergency contact: Primary Care Provider and Airset Caster Call non-emergency contact if: you have any medication questions, your symptoms worsen and your temperature is above 100.5 Follow-up/Referrals: Emil Lazcano MD [Primary Care Provider] - 05/31/19 11:00 am (Please, follow up at Dr. Lazcano's office with his associate, Rosemarie MORILLO, on ThursdayMay 31 at 11:00 am. *If you want to change this appointment, call their office at [phone].) Diet: Dialysis Renal and Heart Healthy Fluids: 1500ml (6 cups) Addtl Provider Instructions: You were admitted for chills, shortness of breath, cough, and lack of appetite. We were concerned about pneumonia but none was found on multiple chest x-rays and CAT scan of the lungs. We also ruled out blood clots in your legs and blood clots in your lungs. You improved with breathing treatments and time. It is possible that you had a fleeting viral respiratory illness. Your chronic shortness of breath may be from COPD as well as deconditioning. Recommendations - 1. albuterol via your nebulizer machine - 1 treatment every 6 hours as needed for cough/wheeze/shortness of breath 2. talk to your doctor about obtaining "PFTS" (pulmonary function tests) - these determine the severity of COPD 3. follow-up tomorrow for regularly scheduled dialysis 4. follow-up with Dr Lazcano as scheduled (see separate section) Return to [facility] if -- - you have fever over 100 degrees - you have worsening shortness of breath or chest pain - you have severe abdominal pain - you have severe lightheadedness or dizziness - any other concerns Prescriptions: New albuterol sulfate 2.5 mg /3 mL (0.083 %) solution for nebulization 2.5 mg INH Q6H PRN (Reason: cough/wheeze/shortness of breath) Qty: 180 RF: 5 Continued Lyrica 75 mg capsule 75 mg PO QAM RF: 0 lidocaine 5 % adhesive patch,medicated 2 patch transdermal QAM Qty: 30 RF: 0 azithromycin 500 mg Tablet 500 mg PO DIRECTED PRN (Reason: PRIOR TO DENTAL VISITS) RF: 0 Spiriva with HandiHaler 18 mcg Capsule, W/Inhalation Device 1 cap INHALATION QAM RF: 0 omeprazole 20 mg Tablet,Delayed Release (Dr/Ec) 20 mg PO QAM RF: 0 atorvastatin 40 mg Tablet 40 mg PO HS RF: 0 amiodarone 200 mg Tablet 200 mg PO Q OTHER DAY RF: 0 aspirin [Aspir-Low] 81 mg Tablet,Delayed Release (Dr/Ec) 81 mg PO QAM RF: 0 paroxetine HCl 20 mg Tablet 20 mg PO QAM RF: 0 albuterol sulfate 90 mcg/actuation Hfa Aerosol Inhaler 2 puff INHALATION Q6H PRN (Reason: Shortness Of Breath) RF: 0 calcium acetate 667 mg Capsule 667 mg PO TIDM RF: 0 Breo Ellipta 200-25 mcg/dose Blister With Device 1 inh INHALATION QAM RF: 0 famotidine 20 mg tablet 20 mg PO 3XWK RF: 0 levothyroxine 75 mcg capsule 75 mcg PO QAM RF: 0 clopidogrel [Plavix] 75 mg tablet 75 mg PO QAM RF: 0 Aranesp (in polysorbate) 100 mcg/0.5 mL Syringe 100 mcg subcut UD RF: 0 No Action temazepam 15 mg capsule 30 mg PO HS PRN (Reason: Sleep) Qty: 30 RF: 0 alprazolam 0.5 mg tablet 0.5 mg PO BID PRN (Reason: anxiety) Qty: 20 RF: 0 walker misc .ROUTE .MEDSUPPLY Qty: 1 RF: 0 docusate sodium 100 mg capsule 100 mg PO BID RF: 0 Stand-Alone Forms: [facility] Discharge Orders: Discharge Order (Routine); Ordered 05/26/19 Ordered By: Tan Chacon Admission Data Admit Date/Time: 05/24/19 03:07 Attending Provider: Tan Chacon Admit Provider: Addison Akins Primary Care Provider: Emil Lazcano Other Providers: Christina Landrum Service: Telemetry Other Interventions: Discharge Summary Assessment (RN) Last Done: 05/26/19 18:51 Pending Studies at Discharge: No DC Date/Time DO NOT enter until pt leaves facility: 05/26/19 19:29
== END 2019-05-26 19:29 | disposition home health service (06) | DRG 865 ==
LOC: ED 23:41 → 2E 05-24 02:45 → SUATTDRO 05-24 03:07 → 2E 05-24 03:07
DX: B34.9 Viral infection, unspecified; R53.1 Weakness; K21.9 Gastro-esophageal reflux disease without esophagitis; I12.0 Hypertensive chronic kidney disease with stage 5 chronic kidney disease or end stage renal disease; I25.10 Atherosclerotic heart disease of native coronary artery without angina pectoris; E83.42 Hypomagnesemia; J44.9 Chronic obstructive pulmonary disease, unspecified; Z79.899 Other long term (current) drug therapy; Z93.2 Ileostomy status; K55.9 Vascular disorder of intestine, unspecified; Z79.02 Long term (current) use of antithrombotics/antiplatelets; I48.0 Paroxysmal atrial fibrillation; N18.6 End stage renal disease; E03.9 Hypothyroidism, unspecified; Z79.82 Long term (current) use of aspirin; Z99.2 Dependence on renal dialysis; D63.1 Anemia in chronic kidney disease

== ENCOUNTER 2019-11-04 10:49 | Inpatient (IN) ==
--- NOTE | 2019-11-04 11:38 | XRay Report ---
RIGHT ANKLE 3 VIEWS HISTORY: Right ankle pain. fall, pain COMPARISON: None. FINDINGS: There is no fracture or dislocation. The bones are osteopenic. Mild to moderate osteoarthri tis at the tibiotalar joint. There is diffuse soft tissue swelling. Vascular calcifications are noted . Plantar and posterior calcaneal spurs. No radiopaque foreign bodies. IMPRESSION: No fracture or dislocation within the right ankle. ACT 112: Negative or not required by law. Electronically signed by: Joey Leggett M.D. 11/04/2019 11:36 AM
--- NOTE | 2019-11-04 11:43 | XRay Report ---
XR chest 1V portable CLINICAL HISTORY: SOB dyspnea COMPARISON STUDY: 10/17/2019 FINDINGS: Mild stable cardiomegaly. Prior median sternotomy. Moderate prominence of pulmonary vasculature. Prominent bibasilar parenchymal interstitial markings. IMPRESSION: 1. Mild components of congestive failure. ACT 112: Negative or not required by law. The above report was generated using voice recognition software. It may contain grammatical, syntax or spelling errors. Electronically signed by: Kojo Tomlinson M.D. 11/04/2019 11:41 AM
[2019-11-04 12:06] LABS: Basophils # (auto) 0.06 K/uL (0-0.2); Basophils % (auto) 0.4 %; Hematocrit (blood only) 36.6 % (42-52); Hemoglobin 12.2 g/dL (14.0-18.0); Immature Granulocytes # (auto) 0.24 K/uL (0.00-0.02); Immature Granulocytes % (auto) 1.8 %; Lymphocytes # (auto) 1.28 K/uL (1.2-3.4); Lymphocytes % (auto) 9.5 %; Mean Corpuscular Hemoglobin 33.4 pg (25-34); Mean Corpuscular Hgb Conc 33.3 g/dL (32-36); Mean Corpuscular Volume 100.3 fL (80-100); Mean Platelet Volume 9.3 fL (7.4-10.4); Monocytes # (auto) 1.13 K/uL (0.11-0.59); Monocytes % (auto) 8.4 %; Neutrophils % (auto) 76.9 %; Platelet Count 167 K/uL (130-400); RDW Coefficient of Variation 15.2 % (11.5-14.5); RDW Standard Deviation 55.9 fL (36.4-46.3); Red Blood Count 3.65 M/uL (4.7-6.1); White Blood Count 13.51 K/uL (4.8-10.8)
[2019-11-04 12:35] LABS: Albumin Level 3.4 gm/dl (3.4-5.0); BUN Creatinine Ratio 4.5 (10-20); Creatinine Clr Calc Pharmacy 8.6 ml/min; Est GFR (African American) 5.6; Est GFR (Non-African American) 4.8; Magnesium 1.9 mg/dl (1.8-2.4); Potassium 4.7 mmol/L (3.5-5.1)
[2019-11-04 12:41] LABS: Albumin Globulin Ratio 0.9 (0.9-2); Bilirubin,Total 0.5 mg/dl (0.2-1); Globulin 3.9 gm/dl (2.5-4.0); Total Protein 7.3 gm/dl (6.4-8.2); Troponin I 0.048 ng/ml (0-0.045)
[2019-11-04] MEDS ORDERED: SODIUM CHLORIDE 0.9% 1000ML 1,000 ML IV PRN (12:48)
[2019-11-04 12:54] LABS: Partial Thromboplastin Ratio 0.9; Prothrombin Time 10.6 Seconds (9.0-12.0)
--- NOTE | 2019-11-04 13:01 | Electrocardiogram Report ---
Test Reason : Blood Pressure : / mmHG Vent. Rate : 080 BPM Atrial Rate : 080 BPM P-R Int : 234 ms QRS Dur : 104 ms QT Int : 420 ms P-R-T Axes : 081 058 071 degrees QTc Int : 484 ms Sinus rhythm with 1st degree A-V block with Premature atrial complexes with Aberrant conduction Prolonged QT Abnormal ECG When compared with ECG of 19-OCT-2019 12:48, Premature ventricular complexes are no longer Present Aberrant conduction is now Present Confirmed by Emil Cao ([id number]) on 11/04/2019 1:01:15 PM Referred By: Confirmed By:Emil Cao
--- NOTE | 2019-11-04 14:33 | History & Physical Report ---
Date of Service November 04, 2019 Assessment & Plan (1) ESRD (end stage renal disease) on dialysis: ESRD on MWF HD via avf tolerating 2 hr HD today and on track for 2L UF; 2K bath given mild vol OL then plan 4 hr tx tomorrow no heparin d/t fall hx mild anemia; no CATARINA indicated Full code Present on Admission?: Yes (2) Shortness of breath: extra dialysis as above working at whittling down volume; multifactorial from copd; uses nocturnal 02 Present on Admission?: Yes (3) Fall: have been suggesting riding w/c van to dialysis but he is reluctant still; may need inpatient rehab note also this is the leg w/ extensive vascular interventions >> monitor for need for vascular eval inpt or outpt Present on Admission?: Yes (4) CHF (congestive heart failure): Continue home medicine: Amiodarone 200 mg p.o. every other day Aspirin 81 mg p.o. every morning Apidra well 75 mg p.o. every morning Present on Admission?: Yes (5) Elevated troponin: Continue monitoring troponin x3 Likely due to demand ischemia in conjunction with end-stage renal disease and poor clearance. Continue monitoring Present on Admission?: Yes (6) Right ankle sprain: Issue resolved. X-rays did not show any fracture or swelling. Present on Admission?: Yes (7) COPD (chronic obstructive pulmonary disease): Continue home medicine: Breo Ellipta 1 inhalation every morning Suppressive therapy with azithromycin 500 mg p.o. as directed Spiriva 1 capsule inhalation every morning Present on Admission?: Yes (8) Orthostatic hypotension: Patient exhibits autonomic instability. Especially after hemodialysis he cannot control his blood pressure very well and he has issues with maintaining it. Continue monitoring blood pressure and adjusting body before standing up from sitting position. Present on Admission?: Yes History of Present Illness Chief Complaint: Dizziness Primary Care Provider: Emil Lazcano MD The patient is a 74 years old male with past medical history of end-stage renal disease, peripheral vascular disease with amputation of the TKA on the right, COPD, atrial fibrillation, abdominal aortic aneurysm, GERD, coronary artery disease, AV fistula, history of CABG, history of CVA, hyperlipidemia, hypothyroid, diastolic CHF who presents to the emergency room with a complaint of a near fall that occurred this morning. As per patient explanation which was very detailed patient never fell, and in fact when he was getting down from the car trying to reach his dialysis clinic, he felt hypotensive and dizzy which resulted that he could not hold himself for the handle of the car and that is how he slighted down. He did not hurt any part of his body. Patient denies that he lost consciousness at any point, he clearly states that he was dizzy because his blood pressure just could not hold and this happens quite often in the past several years. Patient's dialysis today was canceled because of his hypotension. The patient sister who is RN and who takes care of him and his mother states that patient blood pressure dropped 30 points when he was going from sitting to standing position. Patient sees supply chain design manager Dr. Alcantar. Patient reports that he bent his right ankle and felt minimal pain there which later on resolved. Labs are reviewed: WBC is 13.51, hemoglobin 12.2, hematocrit 36.6, platelets 167, sodium 138, potassium 4.7, chloride 101, anion gap 14, BUN 43, creatinine 9.53, AST 31, ALT 43, troponin 0.048, 0.045, 0.047, BNP 11,462, Albumin 3.4, and TSH 3.4, patient is positive for MRSA. Chest x-ray show mild components of congestive failure failure. Right ankle x-rays shows no fracture or dislocation within the right ankle. Decision was made to admit patient to PCU on telemetry for dizziness, end-stage renal disease with volume overload that needed to be dialyzed. Allergies Allergy/AdvReac Type Severity Reaction Status Date / Time gabapentin Allergy Unknown Unknown Verified 11/04/19 11:45 tramadol Allergy Unknown dizziness;a Verified 11/04/19 11:45 nxiety;sob oxycodone AdvReac Severe DELIRIUM Verified 11/04/19 11:45 Home Medications Home Medications Medication Instructions Recorded Confirmed Type Breo Ellipta 1 inh INHALATION QAM 08/23/18 11/04/19 History albuterol sulfate 2 puff INHALATION Q6H PRN 08/23/18 11/04/19 History aspirin [Aspir-Low] 81 mg PO QAM 08/23/18 11/04/19 History calcium acetate 667 mg PO TIDM 08/23/18 11/04/19 History paroxetine HCl 20 mg PO HS 08/23/18 11/04/19 History Spiriva with HandiHaler 1 cap INHALATION QAM 08/30/18 11/04/19 History azithromycin 500 mg PO DIRECTED PRN 08/30/18 11/04/19 History albuterol sulfate 2.5 mg INH Q6H PRN #180 ml 05/26/19 11/04/19 Rx alprazolam 0.5 mg tablet 0.5 mg PO BID PRN #20 tab 05/31/19 11/04/19 Rx docusate sodium 100 mg capsule 100 mg PO HS 05/31/19 11/04/19 History amiodarone 200 mg tablet 200 mg PO Q OTHER DAY #14 tab 07/01/19 11/04/19 Rx pregabalin 75 mg capsule 75 mg PO QAM #30 cap 07/05/19 11/04/19 Rx atorvastatin 40 mg tablet 40 mg PO HS #90 tab 10/05/19 11/04/19 Rx omeprazole 20 mg tablet,delayed 20 mg PO QAM #90 tab 10/05/19 11/04/19 Rx release clopidogrel 75 mg PO QAM 10/17/19 11/04/19 History famotidine 20 mg PO MOWEFR 10/17/19 11/04/19 History temazepam 30 mg PO HS PRN #60 cap 10/26/19 11/04/19 Rx levothyroxine 88 mcg capsule 88 mcg PO DAILY #30 cap 11/01/19 11/04/19 Rx Past Med/Surg History Medical History AAA (abdominal aortic aneurysm) (Resolved) Acute osteomyelitis of foot (Acute) Anemia (Inactive) Anemia, chronic renal failure (Chronic) Anxiety (Chronic) Anxiety (Chronic) Aspiration pneumonia Atrial fibrillation (Resolved) Atrial fibrillation (Chronic) PAROXYSMAL- ON ASA PER RECORDS AV fistula (Chronic) right arm CAD (coronary artery disease) (Chronic) CAD (coronary artery disease) (Chronic) S/P CABG X2 (DURING MVR) 2010 Chronic back pain (Chronic) Chronic GERD (Chronic) COPD (chronic obstructive pulmonary disease) (Chronic) COPD (chronic obstructive pulmonary disease) CVA (cerebral vascular accident) (Chronic) "NO RESIDUAL EFFECTS" PER RECORDS Delirium (Resolved) Depression (Chronic) Dermatitis (Acute) Diarrhea (Chronic) Diastolic CHF (Chronic) DVT (deep venous thrombosis) (Acute) Elevated troponin (Resolved) Encounter for central line placement (Acute) ESRD (end stage renal disease) ESRD (end stage renal disease) on dialysis (Chronic) ESRD (end stage renal disease) on dialysis (Chronic) Gangrene (Resolved) Gangrene of toe (Acute) right toes REASON FOR PROCEDURE Generalized weakness (Acute) GERD (gastroesophageal reflux disease) (Chronic) Gram negative sepsis (Acute) H/O: gout (Chronic) Hyperkalemia (Acute) Hyperlipidemia (Chronic) Hypertension (Acute) Hypomagnesemia (Acute) Hypotension (Chronic) Hypothyroid (Chronic) Hypothyroidism (Inactive) Hypothyroidism (Chronic) Ileostomy in place (Chronic) Ischemic colitis (Resolved) Memory loss or impairment (Acute) Myocardial infarct, old (Chronic) 2010 Necrosis of colon Non-healing wound (Chronic) Orthostatic hypotension (Acute) Peripheral vascular disease (Chronic) Peripheral vascular disease (Chronic) Proctocolitis (Chronic) Shortness of breath (Acute) Valvular disease (Chronic) S/P MVR (2011); ?AVR PER RECORDS Vitamin D deficiency (Acute) Surgical History Difficult intubation (Chronic) B/L Anteriogram, Right femoral to anterior tibial cadaver vein bypass= 08/06/18= Grade view 4, MAC 3 --> Glidescope #3, ETT 7.5 at [facility] H/O abdominal aortic aneurysm repair (Resolved) 2011 H/O [id number] bypass (Resolved) 2012 H/O mitral valve repair (Resolved) 2010; ?AVR PER RECORDS Hx of CABG (Acute) S/P CABG X2 (DURING MVR) 2010 S/P AAA repair (Resolved) S/P ablation of atrial fibrillation (Resolved) S/P CABG x 2 (Resolved) S/P cholecystectomy (Resolved) S/P cholecystectomy (Resolved) S/P femoral-popliteal bypass surgery (Resolved) S/P MVR (mitral valve repair) (Resolved) Family History Mother Essential hypertension Father , age 76 Myocardial infarction Social History Preferred Language: Polish Communication Ability: Effective Visual Impairment: No Limitations Parts Cataloguer Required: No Beliefs That Will Affect Care: None marital status: / marital status details: 1 daughter Current Living Situation: Family Current Living Situation Comment: with sister current occupational status: 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 Safety Concerns: Feels Safe At This Time Smoking Status: Former smoker Tobacco Type: cigarettes ; Second Hand Exposure: No ; Hx Alcohol Use: No Hx Substance Use: No Review of Systems Review of Systems: All systems reviewed & are unremarkable except as noted in HPI & below Physical Exam Constitutional: well developed, well nourished and cooperative (on RA seen on dialysis); no acute distress Eyes: EOM intact bilaterally ENMT: Ears: no external ear abnormality Nose: no external nose abnormality Mouth: + dry oral mucous membranes Neck: no nuchal rigidity Respiratory: normal respiratory effort Auscultation: + diminished lung sounds (but clear on ant exam) Cardiovascular: Rate/Rhythm: regular rate and regular rhythm (distant HS) Extremities: + edema (trace BL ankle edema) and + AV fistula (t/b+) Gastrointestinal (Abdomen): Inspection/Auscultation: normal bowel sounds Percussion/Palpation: abdomen soft; abdomen nontender Musculoskeletal: Extremities: strength 5/5 throughout Skin: no rashes, warm and dry Psychiatric: A+Ox3, euthymic affect Results & Data Vital Signs (Past 12 Hours) Vital Signs Temp Pulse Pulse Resp BP BP Pulse Ox 11/04/19 12:42 83 24 137/78 97 11/04/19 11:15 97 11/04/19 10:55 36.7 C 82 23 136/77 97 Code Status & VTE Plan Code Status Full code VTE Prophylaxis Plan VTE Prophylaxis will be ordered: Yes PG Care Time/CCT Total # of Minutes Spent Total Time Spent with Patient: Total time spent is greater than 50% in coordination of care (as documented) at patient's floor/unit and/or counseling patient: (1) Fall Encounter type: initial encounter Qualified Code(s): W19.XXXA - Unspecified fall, initial encounter (2) CHF (congestive heart failure) Heart failure chronicity: unspecified Heart failure type: unspecified Qualified Code(s): I50.9 - Heart failure, unspecified (3) Right ankle sprain Encounter type: initial encounter Involved ligament of ankle: unspecified ligament Qualified Code(s): S93.401A - Sprain of unspecified ligament of right ankle, initial encounter
[2019-11-04] MEDS ORDERED: ALPRAZolam 0.5 MG TABLET PO PRN (16:15)
[2019-11-04] MEDS ORDERED: ALBUTEROL HFA 8 GM INHALER INH PRN (16:15)
[2019-11-04] MEDS ORDERED: MAGNESIUM HYDROXIDE SUSP 30 ML UDC PO PRN (16:15)
[2019-11-04] MEDS ORDERED: ALUMINUM/MAGNESIUM SUSP 30 ML UDC PO PRN (16:15)
[2019-11-04] MEDS ORDERED: POLYETHYLENE (MIRALAX) 17 GM PACK PO PRN (16:15)
[2019-11-04] MEDS ORDERED: ALBUTEROL 0.083% NEBU SOLN 3 ML VIAL INH PRN (16:15)
[2019-11-04 16:59] LABS: Thyroid Stimulating Hormone 3.4 uIu/ml (0.300-4.500); Troponin I 0.045 ng/ml (0-0.045)
--- NOTE | 2019-11-04 17:55 | Emergency Department Note ---
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 The patient states he was supposed to get dialysis today. He states he did a nebulizer treatment from [id number]. He states he walked a few steps to the patio and then got dizzy, weak, and then fell. He states he was SOB and notes he fell. The patient's sister states she caught the patient and he landed on the ground softly. The patient states his back and buttock hurt from the fall. He notes his right ankle bent a little and states he has pain from that. He notes he has been SOB and weak for the past two days. He states his SOB is worse with exertion. Her notes he does not wear oxygen at home. The patient denies having a fever, cough, and congestion. He notes he did not have dialysis today. The patient's sister states the patient's BP drops 30 points when he goes from sitting to standing. The patient notes he lives with his sister. He states his agriculture instructor is Dr. Alcantar. Home Medications Home Medications Medication Instructions Recorded Confirmed Type Breo Ellipta 1 inh INHALATION QAM 08/23/18 11/04/19 History albuterol sulfate 2 puff INHALATION Q6H PRN 08/23/18 11/04/19 History aspirin [Aspir-Low] 81 mg PO QAM 08/23/18 11/04/19 History calcium acetate 667 mg PO TIDM 08/23/18 11/04/19 History paroxetine HCl 20 mg PO HS 08/23/18 11/04/19 History Spiriva with HandiHaler 1 cap INHALATION QAM 08/30/18 11/04/19 History azithromycin 500 mg PO DIRECTED PRN 08/30/18 11/04/19 History albuterol sulfate 2.5 mg INH Q6H PRN #180 ml 05/26/19 11/04/19 Rx alprazolam 0.5 mg tablet 0.5 mg PO BID PRN #20 tab 05/31/19 11/04/19 Rx docusate sodium 100 mg capsule 100 mg PO HS 05/31/19 11/04/19 History amiodarone 200 mg tablet 200 mg PO Q OTHER DAY #14 tab 07/01/19 11/04/19 Rx pregabalin 75 mg capsule 75 mg PO QAM #30 cap 07/05/19 11/04/19 Rx atorvastatin 40 mg tablet 40 mg PO HS #90 tab 10/05/19 11/04/19 Rx omeprazole 20 mg tablet,delayed 20 mg PO QAM #90 tab 10/05/19 11/04/19 Rx release clopidogrel 75 mg PO QAM 10/17/19 11/04/19 History famotidine 20 mg PO MOWEFR 10/17/19 11/04/19 History temazepam 30 mg PO HS PRN #60 cap 10/26/19 11/04/19 Rx levothyroxine 88 mcg capsule 88 mcg PO DAILY #30 cap 11/01/19 11/04/19 Rx Allergies Allergy/AdvReac Type Severity Reaction Status Date / Time gabapentin Allergy Unknown Unknown Verified 11/04/19 11:45 tramadol Allergy Unknown dizziness;a Verified 11/04/19 11:45 nxiety;sob oxycodone AdvReac Severe DELIRIUM Verified 11/04/19 11:45 Past Med/Surg History Medical History AAA (abdominal aortic aneurysm) (Resolved) Acute osteomyelitis of foot (Acute) Anemia (Inactive) Anemia, chronic renal failure (Chronic) Anxiety (Chronic) Anxiety (Chronic) Aspiration pneumonia Atrial fibrillation (Resolved) Atrial fibrillation (Chronic) PAROXYSMAL- ON ASA PER RECORDS AV fistula (Chronic) right arm CAD (coronary artery disease) (Chronic) CAD (coronary artery disease) (Chronic) S/P CABG X2 (DURING MVR) 2010 Chronic back pain (Chronic) Chronic GERD (Chronic) COPD (chronic obstructive pulmonary disease) (Chronic) COPD (chronic obstructive pulmonary disease) CVA (cerebral vascular accident) (Chronic) "NO RESIDUAL EFFECTS" PER RECORDS Delirium (Resolved) Depression (Chronic) Dermatitis (Acute) Diarrhea (Chronic) Diastolic CHF (Chronic) DVT (deep venous thrombosis) (Acute) Elevated troponin (Resolved) Encounter for central line placement (Acute) ESRD (end stage renal disease) ESRD (end stage renal disease) on dialysis (Chronic) ESRD (end stage renal disease) on dialysis (Chronic) Gangrene (Resolved) Gangrene of toe (Acute) right toes REASON FOR PROCEDURE Generalized weakness (Acute) GERD (gastroesophageal reflux disease) (Chronic) Gram negative sepsis (Acute) H/O: gout (Chronic) Hyperkalemia (Acute) Hyperlipidemia (Chronic) Hypertension (Acute) Hypomagnesemia (Acute) Hypotension (Chronic) Hypothyroid (Chronic) Hypothyroidism (Inactive) Hypothyroidism (Chronic) Ileostomy in place (Chronic) Ischemic colitis (Resolved) Memory loss or impairment (Acute) Myocardial infarct, old (Chronic) 2010 Necrosis of colon Non-healing wound (Chronic) Orthostatic hypotension (Acute) Peripheral vascular disease (Chronic) Peripheral vascular disease (Chronic) Proctocolitis (Chronic) Shortness of breath (Acute) Valvular disease (Chronic) S/P MVR (2011); ?AVR PER RECORDS Vitamin D deficiency (Acute) Surgical History Difficult intubation (Chronic) B/L Anteriogram, Right femoral to anterior tibial cadaver vein bypass= 08/06/18= Grade view 4, MAC 3 --> Glidescope #3, ETT 7.5 at [facility] H/O abdominal aortic aneurysm repair (Resolved) 2011 H/O [id number] bypass (Resolved) 2013 H/O mitral valve repair (Resolved) 2010; ?AVR PER RECORDS Hx of CABG (Acute) S/P CABG X2 (DURING MVR) 2011 S/P AAA repair (Resolved) S/P ablation of atrial fibrillation (Resolved) S/P CABG x 2 (Resolved) S/P cholecystectomy (Resolved) S/P cholecystectomy (Resolved) S/P femoral-popliteal bypass surgery (Resolved) S/P MVR (mitral valve repair) (Resolved) Family History Mother Essential hypertension Father , age 76 Myocardial infarction Social History Preferred Language: Vietnamese Communication Ability: Effective Visual Impairment: No Limitations Steamfitter Supervisor Required: No Beliefs That Will Affect Care: None marital status: / marital status details: 1 daughter Current Living Situation: Family Current Living Situation Comment: with sister current occupational status: 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 and A total of 10 systems reviewed and were otherwise negative Physical Exam Vital Signs Vital Signs - 24 hr 11/04/19 10:54 11/04/19 10:55 11/04/19 11:03 Temperature 36.7 C Temperature Source Oral Pulse Rate - Lying Pulse Rate - Sitting Pulse Rate - Standing Pulse Rate 80 82 79 Pulse Rate [Apical] Pulse Rate from SpO2 Sensor 78 80 Pulse Rhythm Irregular Pulse Rhythm [Apical] Pulse Strength Normal Pulse Strength [Apical] Respiratory Rate 21 23 22 Respiratory Effort / Characteristics Spontaneous Labored Respiratory Depth Normal Respiratory Pattern Regular Blood Pressure - Lying Blood Pressure - Sitting Blood Pressure- Standing Blood Pressure 136/77 136/77 Blood Pressure [Left Arm] Blood Pressure Mean 107 96 Blood Pressure Mean [Left Arm] Blood Pressure Position Sitting Blood Pressure Position [Left Arm] Pulse Oximetry 97 97 89 L Oxygen Delivery Method Sepsis Recent Fever Within 48 Hours No Sepsis New/Unexplained Change in Mental Status No Sepsis Action Taken by Nursing No Action Required 11/04/19 11:14 11/04/19 11:15 11/04/19 12:00 Temperature Temperature Source Pulse Rate - Lying 75 Pulse Rate - Sitting 78 Pulse Rate - Standing 91 H Pulse Rate 74 Pulse Rate [Apical] Pulse Rate from SpO2 Sensor 73 Pulse Rhythm Pulse Rhythm [Apical] Pulse Strength Pulse Strength [Apical] Respiratory Rate 22 Respiratory Effort / Characteristics Respiratory Depth Respiratory Pattern Blood Pressure - Lying 140/68 Blood Pressure - Sitting 147/75 H Blood Pressure- Standing 142/82 H Blood Pressure Blood Pressure [Left Arm] Blood Pressure Mean Blood Pressure Mean [Left Arm] Blood Pressure Position Blood Pressure Position [Left Arm] Pulse Oximetry 97 96 Oxygen Delivery Method Room Air Sepsis Recent Fever Within 48 Hours Sepsis New/Unexplained Change in Mental Status Sepsis Action Taken by Nursing 11/04/19 12:42 11/04/19 13:00 11/04/19 13:37 Temperature Temperature Source Pulse Rate - Lying Pulse Rate - Sitting Pulse Rate - Standing Pulse Rate 72 75 Pulse Rate [Apical] 83 Pulse Rate from SpO2 Sensor 74 73 Pulse Rhythm Pulse Rhythm [Apical] Regular Pulse Strength Pulse Strength [Apical] Normal Respiratory Rate 24 18 17 Respiratory Effort / Characteristics Non-Labored Spontaneous Respiratory Depth Normal Respiratory Pattern Regular Blood Pressure - Lying Blood Pressure - Sitting Blood Pressure- Standing Blood Pressure 143/74 H Blood Pressure [Left Arm] 137/78 Blood Pressure Mean 91 Blood Pressure Mean [Left Arm] 97 Blood Pressure Position Blood Pressure Position [Left Arm] Sitting Pulse Oximetry 97 97 96 Oxygen Delivery Method Room Air Sepsis Recent Fever Within 48 Hours Sepsis New/Unexplained Change in Mental Status Sepsis Action Taken by Nursing 11/04/19 13:39 11/04/19 13:40 11/04/19 13:42 Temperature Temperature Source Pulse Rate - Lying Pulse Rate - Sitting Pulse Rate - Standing Pulse Rate 75 79 91 H Pulse Rate [Apical] Pulse Rate from SpO2 Sensor 77 75 Pulse Rhythm Pulse Rhythm [Apical] Pulse Strength Pulse Strength [Apical] Respiratory Rate 20 13 29 H Respiratory Effort / Characteristics Respiratory Depth Respiratory Pattern Blood Pressure - Lying Blood Pressure - Sitting Blood Pressure- Standing Blood Pressure 140/68 147/75 H 142/82 H Blood Pressure [Left Arm] Blood Pressure Mean 85 88 86 Blood Pressure Mean [Left Arm] Blood Pressure Position Blood Pressure Position [Left Arm] Pulse Oximetry 98 94 Oxygen Delivery Method Sepsis Recent Fever Within 48 Hours Sepsis New/Unexplained Change in Mental Status Sepsis Action Taken by Nursing 11/04/19 14:00 Temperature Temperature Source Pulse Rate - Lying Pulse Rate - Sitting Pulse Rate - Standing Pulse Rate 75 Pulse Rate [Apical] Pulse Rate from SpO2 Sensor Pulse Rhythm Pulse Rhythm [Apical] Pulse Strength Pulse Strength [Apical] Respiratory Rate 20 Respiratory Effort / Characteristics Respiratory Depth Respiratory Pattern Blood Pressure - Lying Blood Pressure - Sitting Blood Pressure- Standing Blood Pressure 140/78 Blood Pressure [Left Arm] Blood Pressure Mean 98 Blood Pressure Mean [Left Arm] Blood Pressure Position Blood Pressure Position [Left Arm] Pulse Oximetry 97 Oxygen Delivery Method Room Air Sepsis Recent Fever Within 48 Hours Sepsis New/Unexplained Change in Mental Status Sepsis Action Taken by Nursing GENERAL: Patient is in no acute distress. HEENT: No acute trauma, normocephalic atraumatic, mucous membranes moist, no na charley congestion, no scleral icterus. NECK: No stridor, no adenopathy, no meningismus, trachea is midline. LUNGS: No wheezing. No respiratory distress. Crackles at the right lower lung. HEART: 2/6 systolic murmur. Regular rate and rhythm. ABDOMEN: Soft, nontender, bowel sounds positive, no hernias, no peritonitis. EXTREMITIES: No cyanosis or edema, full range of motion of all the joints without pain or difficulty, no signs for acute trauma. Missing toes of the right foot. Pain to palpate of the lateral aspect of the right ankle. No swelling or deformity. NEUROLOGIC: Oriented x 3, no acute motor or sensory deficits, no focal weakness. SKIN: No rash, no jaundice, no diaphoresis. Course Course 1108: The patient was evaluated in room C3, and a complete history and physical examination were performed. 1241: I spoke to Dr. Alcantar - Nephrology. She states the patient has been getting weaker for the last several weeks to months. She is concerned about his safety. She states the patient cannot get dialysis today. She recommends PTOT evaluation and dialysis tomorrow. 1251: I discussed the patient's case with Dr. Oakes - Health Systemist. She will evaluate the patient for further management. 1349: Orthostatics were technically negative, but the pulse did increase with standing. Medical Decision Making Differential Diagnosis Differential Diagnosis includes but is not limited to CHF, fluid overload, anemia, SC, electrolyte imbalance, right ankle sprain, right ankle fracture, exacerbation of COPD, pneumonia, and bronchitis. Medical Records Attestation: I reviewed the patient's medical records. Home Medications Current Medication List: was personally reviewed by me Laboratory Data Attestation: I reviewed the patient's lab results. Result diagrams: 11/04/19 11:30 11/04/19 11:30 Lab Results 11/04/19 11/04/19 11/04/19 Range/Units 11:30 11:30 11:30 WBC 13.51 H (4.8-10.8) K/uL RBC 3.65 L (4.7-6.1) M/uL Hgb 12.2 L (14.0-18.0) g/dL Hct 36.6 L (42-52) % MCV 100.3 H (80-100) fL MCH 33.4 (25-34) pg MCHC 33.3 (32-36) g/dL RDW Std Deviation 55.9 H (36.4-46.3) fL RDW Coeff of Jolanta 15.2 H (11.5-14.5) % Plt Count 167 (130-400) K/uL MPV 9.3 (7.4-10.4) fL Immature Gran % (Auto) 1.8 % Neut % (Auto) 76.9 % Lymph % (Auto) 9.5 % Sully % (Auto) 8.4 % Eos % (Auto) 3.0 % Baso % (Auto) 0.4 % Immature Gran # (Auto) 0.24 H (0.00-0.02) K/uL Neut # (Auto) 10.40 H (1.4-6.5) K/uL Lymph # (Auto) 1.28 (1.2-3.4) K/uL Sully # (Auto) 1.13 H (0.11-0.59) K/uL Eos # (Auto) 0.40 (0-0.5) K/uL Baso # (Auto) 0.06 (0-0.2) K/uL PT Cancelled INR Cancelled APTT Cancelled PTT Ratio Cancelled Sodium 138 (136-145) mmol/L Potassium 4.7 (3.5-5.1) mmol/L Chloride 101 (98-107) mmol/L Carbon Dioxide 24 (21-32) mmol/L Anion Gap 14.0 H (3-11) BUN 43 H (7-18) mg/dl Creatinine 9.53 H* (0.6-1.4) mg/dl Est Cr Clr Drug Dosing 8.6 ml/min Est GFR ( Amer) 5.6 Est GFR (Non-Af Amer) 4.8 BUN/Creatinine Ratio 4.5 L (10-20) Glucose 109 H (70-99) mg/dl Calcium 10.0 (8.5-10.1) mg/dl Magnesium 1.9 (1.8-2.4) mg/dl Total Bilirubin 0.5 (0.2-1) mg/dl AST 31 (15-37) U/L ALT 43 (12-78) U/L Alkaline Phosphatase 140 H (45-117) U/L Troponin I 0.048 H* (0-0.045) ng/ml NT-Pro-B Natriuret Pep (0-900) pg/ml Total Protein 7.3 (6.4-8.2) gm/dl Albumin 3.4 (3.4-5.0) gm/dl Globulin 3.9 (2.5-4.0) gm/dl Albumin/Globulin Ratio 0.9 (0.9-2) TSH (0.300-4.500) uIu/ml Specimen Hemolysis 11/04/19 11/04/19 Range/Units 12:33 12:35 WBC (4.8-10.8) K/uL RBC (4.7-6.1) M/uL Hgb (14.0-18.0) g/dL Hct (42-52) % MCV (80-100) fL MCH (25-34) pg MCHC (32-36) g/dL RDW Std Deviation (36.4-46.3) fL RDW Coeff of Jolanta (11.5-14.5) % Plt Count (130-400) K/uL MPV (7.4-10.4) fL Immature Gran % (Auto) % Neut % (Auto) % Lymph % (Auto) % Sully % (Auto) % Eos % (Auto) % Baso % (Auto) % Immature Gran # (Auto) (0.00-0.02) K/uL Neut # (Auto) (1.4-6.5) K/uL Lymph # (Auto) (1.2-3.4) K/uL Sully # (Auto) (0.11-0.59) K/uL Eos # (Auto) (0-0.5) K/uL Baso # (Auto) (0-0.2) K/uL PT 10.6 INR 1.0 APTT 24.0 PTT Ratio 0.9 Sodium (136-145) mmol/L Potassium (3.5-5.1) mmol/L Chloride (98-107) mmol/L Carbon Dioxide (21-32) mmol/L Anion Gap (3-11) BUN (7-18) mg/dl Creatinine (0.6-1.4) mg/dl Est Cr Clr Drug Dosing ml/min Est GFR ( Amer) Est GFR (Non-Af Amer) BUN/Creatinine Ratio (10-20) Glucose (70-99) mg/dl Calcium (8.5-10.1) mg/dl Magnesium (1.8-2.4) mg/dl Total Bilirubin (0.2-1) mg/dl AST (15-37) U/L ALT (12-78) U/L Alkaline Phosphatase (45-117) U/L Troponin I 0.045 (0-0.045) ng/ml NT-Pro-B Natriuret Pep 80978 H (0-900) pg/ml Total Protein (6.4-8.2) gm/dl Albumin (3.4-5.0) gm/dl Globulin (2.5-4.0) gm/dl Albumin/Globulin Ratio (0.9-2) TSH 3.400 (0.300-4.500) uIu/ml Specimen Hemolysis Imaging Data Radiologist's Impression: Radiology results as stated below per my review and the radiologist's interpretation: RIGHT ANKLE 3 VIEWS HISTORY: Right ankle pain. fall, pain COMPARISON: None. FINDINGS: There is no fracture or dislocation. The bones are osteopenic. Mild to moderate osteoarthritis at the tibiotalar joint. There is diffuse soft tissue swelling. Vascular calcifications are noted. Plantar and posterior calcaneal spurs. No radiopaque foreign bodies. IMPRESSION: No fracture or dislocation within the right ankle. ACT 112: Negative or not required by law. Electronically signed by: Joey Leggett M.D. 11/04/2019 11:36 AM XR chest 1V portable CLINICAL HISTORY: SOB dyspnea COMPARISON STUDY: 10/17/2019 FINDINGS: Mild stable cardiomegaly. Prior median sternotomy. Moderate prominence of pulmonary vasculature. Prominent bibasilar parenchymal interstitial markings. IMPRESSION: 1. Mild components of congestive failure. ACT 112: Negative or not required by law. The above report was generated using voice recognition software. It may contain grammatical, syntax or spelling errors. Electronically signed by: Kojo Tomlinson M.D. 11/04/2019 11:41 AM ECG Data Attestation: I personally reviewed and interpreted this ECG as follows: Indication: + SOB/dyspnea Rate (beats per minute): 80 Rhythm: + sinus rhythm ECG Intervals/blocks: + Normal QT-c (QT-c is 484) ECG ST segments: no ST elevation ECG Findings: + PVCs Blood Pressure Blood Pressure Findings: Elevated blood pressure Blood Pressure Disposition: further management by hospitalist JACK Narrative There is a mild leukocytosis at 13,000, this could be consistent with infection or the stress of his situation. The patient is anemic but this is baseline. No coagulopathy. Renal panel testing does show a high creatinine consistent with his dialysis need. No worrisome electrolyte abnormality. There was a slight elevation to the alk phos, the bilirubin was normal. EKG shows a sinus rhythm, no acute ischemia. Cardiac enzyme testing x1 is slightly elevated, the patient has had some mild troponin elevations in the past. Chest film does show some increased fluid overload/CHF. I did not see any obvious pneumonia. Films of t he right ankle were done, there was no fracture seen. Orthostatic vital signs were done and were negative. The patient has suffered a right ankle sprain from his fall. He is short of breath because of fluid overload. He did miss dialysis today. I spoke to the patient's agriculture instructor. A hospital stay, dialysis in the near future and PT/OT evaluations were felt warranted. Cardiac troponin enzyme trending was felt warranted. The patient apparently has had some increasing weakness and dyspnea as of late and there is some concern for his safety at home. I spoke to the patient, I talked with the home health care case manager. The on-call hospitalist has been consulted. Impression & Plan Shortness of breath, CHF (congestive heart failure), Missed dialysis, Elevated troponin, Right ankle sprain, Fall Discharge Plan Visit Data *Final* Discharge Date/Time: 11/04/19 15:56 Chief Complaint: Fall ED Provider: Walker Yoon Discharge Problem: Shortness of breath, CHF (congestive heart failure), Missed dialysis, Elevated troponin, Right ankle sprain, Fall Patient Disposition: Admitted As Inpatient Discharge Instructions Interventions: ED Discharge Assessment Last Done: 11/04/19 15:56 Discharge Problem: CHF (congestive heart failure) Qualifiers: Heart failure type: unspecified Heart failure chronicity: unspecified Qualified Code(s): I50.9 - Heart failure, unspecified Right ankle sprain Qualifiers: Encounter type: initial encounter Involved ligament of ankle: unspecified ligament Qualified Code(s): S93.401A - Sprain of unspecified ligament of right ankle, initial encounter Fall Qualifiers: Encounter type: initial encounter Qualified Code(s): W19.XXXA - Unspecified fall, initial encounter The scribe's documentation has been prepared under my direction and personally reviewed by me in its entirety. I confirm that the note above accurately reflects all work, treatment, procedures, and medical decision making performed by me.
--- NOTE | 2019-11-04 19:08 | Nephrology Consultation ---
Date of Consultation November 04, 2019 Assessment & Plan (1) ESRD (end stage renal disease) on dialysis: ESRD on MWF HD via avf -will arrange 2 hr HD today given mild vol OL then plan 4 hr tx tomorrow -2K bath; goal 2L off this evening -no heparin d/t fall hx -mild anemia; no CATARINA indicated Present on Admission?: Yes (2) Shortness of breath: extra dialysis as above working at whittling down volume; multifactorial from copd; uses nocturnal 02 Present on Admission?: Yes (3) Fall: have been suggesting riding w/c van to dialysis but he is reluctant still; may need inpatient rehab >note also this is the leg w/ extensive vascular interventions >> monitor for need for vascular eval inpt or outpt Present on Admission?: Yes History of Present Illness Reason for Consultation: ESRD Requesting Physician: Dr Oakes Attending Physician: Sharmila Oakes MD History of Present Illness 74 y/o M whom I'm asked to see for dialysis needs after he was admitted for leg weakness, a fall, and mild volume overload. PMH includes a fib, ischemic colitis s/p 04/2019 emergent subtotal colectomy w/ ileostomy creation, severe PVD, copd, CAD s/p cabg/MVR, thoracic aortic aneurysm and S/P AAA repair. He had an extended series of inpatient acute and rehab admissions late summer 2017 through early 2018 for PVD complications in BLE including RLE lateral fasciotomy as well as RLE TMA and RLE fem-ant tib cadaver vein bypass. we have been struggling at OP dialysis w/ removing enough fluid and the pt has had more issues w/ vol OL lately, including admission right around loy time for this. He has also been having progressive BL leg weakness for the past 4-6 weeks; we had asked his PCP to arrange home PT; this is still in process of getting set up. Today as he was getting into the car to go to OP dialysis he fell and twisted his R ankle which is sprained. He is adherent w/ his HD treatments but often frets about having too much fluid removed b/c this makes him more tired. He reports increased sob since 11/02. no f/c; no changes in ostomy output; he is anuric; he does endorse R heel pain. Allergies Allergy/AdvReac Type Severity Reaction Status Date / Time gabapentin Allergy Unknown Unknown Verified 11/04/19 11:45 tramadol Allergy Unknown dizziness;a Verified 11/04/19 11:45 nxiety;sob oxycodone AdvReac Severe DELIRIUM Verified 11/04/19 11:45 Home Medications Home Medications Medication Instructions Recorded Confirmed Type Breo Ellipta 1 inh INHALATION QAM 08/23/18 11/04/19 History albuterol sulfate 2 puff INHALATION Q6H PRN 08/23/18 11/04/19 History aspirin [Aspir-Low] 81 mg PO QAM 08/23/18 11/04/19 History calcium acetate 667 mg PO TIDM 08/23/18 11/04/19 History paroxetine HCl 20 mg PO HS 08/23/18 11/04/19 History Spiriva with HandiHaler 1 cap INHALATION QAM 08/30/18 11/04/19 History azithromycin 500 mg PO DIRECTED PRN 08/30/18 11/04/19 History albuterol sulfate 2.5 mg INH Q6H PRN #180 ml 05/26/19 11/04/19 Rx alprazolam 0.5 mg tablet 0.5 mg PO BID PRN #20 tab 05/31/19 11/04/19 Rx docusate sodium 100 mg capsule 100 mg PO HS 05/31/19 11/04/19 History amiodarone 200 mg tablet 200 mg PO Q OTHER DAY #14 tab 07/01/19 11/04/19 Rx pregabalin 75 mg capsule 75 mg PO QAM #30 cap 07/05/19 11/04/19 Rx atorvastatin 40 mg tablet 40 mg PO HS #90 tab 10/05/19 11/04/19 Rx omeprazole 20 mg tablet,delayed 20 mg PO QAM #90 tab 10/05/19 11/04/19 Rx release clopidogrel 75 mg PO QAM 10/17/19 11/04/19 History famotidine 20 mg PO MOWEFR 10/17/19 11/04/19 History temazepam 30 mg PO HS PRN #60 cap 10/26/19 11/04/19 Rx levothyroxine 88 mcg capsule 88 mcg PO DAILY #30 cap 11/01/19 11/04/19 Rx Patient History Medical History AAA (abdominal aortic aneurysm) (Resolved) Acute osteomyelitis of foot (Acute) Anemia (Inactive) Anemia, chronic renal failure (Chronic) Anxiety (Chronic) Anxiety (Chronic) Aspiration pneumonia Atrial fibrillation (Resolved) Atrial fibrillation (Chronic) PAROXYSMAL- ON ASA PER RECORDS AV fistula (Chronic) right arm CAD (coronary artery disease) (Chronic) CAD (coronary artery disease) (Chronic) S/P CABG X2 (DURING MVR) 2010 Chronic back pain (Chronic) Chronic GERD (Chronic) COPD (chronic obstructive pulmonary disease) (Chronic) COPD (chronic obstructive pulmonary disease) CVA (cerebral vascular accident) (Chronic) "NO RESIDUAL EFFECTS" PER RECORDS Delirium (Resolved) Depression (Chronic) Dermatitis (Acute) Diarrhea (Chronic) Diastolic CHF (Chronic) DVT (deep venous thrombosis) (Acute) Elevated troponin (Resolved) Encounter for central line placement (Acute) ESRD (end stage renal disease) ESRD (end stage renal disease) on dialysis (Chronic) ESRD (end stage renal disease) on dialysis (Chronic) Gangrene (Resolved) Gangrene of toe (Acute) right toes REASON FOR PROCEDURE Generalized weakness (Acute) GERD (gastroesophageal reflux disease) (Chronic) Gram negative sepsis (Acute) H/O: gout (Chronic) Hyperkalemia (Acute) Hyperlipidemia (Chronic) Hypertension (Acute) Hypomagnesemia (Acute) Hypotension (Chronic) Hypothyroid (Chronic) Hypothyroidism (Inactive) Hypothyroidism (Chronic) Ileostomy in place (Chronic) Ischemic colitis (Resolved) Memory loss or impairment (Acute) Myocardial infarct, old (Chronic) 2010 Necrosis of colon Non-healing wound (Chronic) Orthostatic hypotension (Acute) Peripheral vascular disease (Chronic) Peripheral vascular disease (Chronic) Proctocolitis (Chronic) Shortness of breath (Acute) Valvular disease (Chronic) S/P MVR (2010); ?AVR PER RECORDS Vitamin D deficiency (Acute) Surgical History Difficult intubation (Chronic) B/L Anteriogram, Right femoral to anterior tibial cadaver vein bypass= 08/06/18= Grade view 4, MAC 3 --> Glidescope #3, ETT 7.5 at [facility] H/O abdominal aortic aneurysm repair (Resolved) 2011 H/O [id number] bypass (Resolved) 2012 H/O mitral valve repair (Resolved) 2010; ?AVR PER RECORDS Hx of CABG (Acute) S/P CABG X2 (DURING MVR) 2010 S/P AAA repair (Resolved) S/P ablation of atrial fibrillation (Resolved) S/P CABG x 2 (Resolved) S/P cholecystectomy (Resolved) S/P cholecystectomy (Resolved) S/P femoral-popliteal bypass surgery (Resolved) S/P MVR (mitral valve repair) (Resolved) Family History Mother Essential hypertension Father , age 76 Myocardial infarction Social History Preferred Language: Fijian Communication Ability: Effective Visual Impairment: No Limitations Tank Builder Required: No Beliefs That Will Affect Care: None marital status: / marital status details: 1 daughter Current Living Situation: Family Current Living Situation Comment: with sister current occupational status: 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 Safety Concerns: Feels Safe At This Time Smoking Status: Former smoker Tobacco Type: cigarettes ; Second Hand Exposure: No ; Hx Alcohol Use: No Hx Substance Use: No Review of Systems Review of Systems: All systems reviewed & are unremarkable except as noted in HPI & below Physical Exam Constitutional: well developed, well nourished and cooperative (on RA seen on dialysis); no acute distress Eyes: EOM intact bilaterally ENMT: Ears: no external ear abnormality Nose: no external nose abnormality Mouth: + dry oral mucous membranes Neck: no nuchal rigidity Respiratory: normal respiratory effort Auscultation: + diminished lung sounds (but clear on ant exam) Cardiovascular: Rate/Rhythm: regular rate and regular rhythm (distant HS) Extremities: + edema (trace BL ankle edema) and + AV fistula (t/b+) Gastrointestinal (Abdomen): Inspection/Auscultation: normal bowel sounds Percussion/Palpation: abdomen soft; abdomen nontender ostomy bag RLQ Musculoskeletal: Extremities: strength 5/5 throughout Skin: no rashes, warm and dry Neurologic: tompkins, fluent speech, no tremor Psychiatric: A+Ox3, euthymic affect Results & Data Vital Signs (Past 12 Hours) Vital Signs Temp Pulse Pulse Pulse Resp BP BP 11/04/19 18:40 75 107/64 11/04/19 18:20 73 122/64 11/04/19 18:00 80 108/62 11/04/19 17:40 70 123/61 11/04/19 17:20 66 119/68 11/04/19 17:00 67 123/68 11/04/19 16:58 69 133/77 11/04/19 16:48 36.6 C 69 11/04/19 15:00 66 16 147/80 H 11/04/19 14:00 75 20 140/78 11/04/19 13:42 91 H 29 H 142/82 H 11/04/19 13:40 79 13 147/75 H 11/04/19 13:39 75 20 140/68 11/04/19 13:37 75 17 143/74 H 11/04/19 13:00 72 18 11/04/19 12:42 83 24 137/78 11/04/19 12:00 74 22 11/04/19 11:15 11/04/19 11:03 79 22 11/04/19 10:55 36.7 C 82 23 136/77 11/04/19 10:54 80 21 136/77 Pulse Ox 11/04/19 18:40 11/04/19 18:20 11/04/19 18:00 11/04/19 17:40 11/04/19 17:20 11/04/19 17:00 11/04/19 16:58 11/04/19 16:48 11/04/19 15:00 97 11/04/19 14:00 97 11/04/19 13:42 11/04/19 13:40 94 11/04/19 13:39 98 11/04/19 13:37 96 11/04/19 13:00 97 11/04/19 12:42 97 11/04/19 12:00 96 11/04/19 11:15 97 11/04/19 11:03 89 L 11/04/19 10:55 97 11/04/19 10:54 97 Laboratory Results 11/04/19 11:30 11/04/19 11:30 Diagnostic Findings R ankle XR > no frx; no dislocation cxr FINDINGS: Mild stable cardiomegaly. Prior median sternotomy. Moderate prominence of pulmonary vasculature. Prominent bibasilar parenchymal interstitial markings. IMPRESSION: 1. Mild components of congestive failure. (1) Fall Encounter type: initial encounter Qualified Code(s): W19.XXXA - Unspecified fall, initial encounter
--- NOTE | 2019-11-04 19:10 | Dialysis Progress Note ---
Date of Service November 04, 2019 Assessment & Plan (1) ESRD (end stage renal disease) on dialysis: ESRD on MWF HD via avf -tolerating 2 hr HD today and on track for 2L UF; 2K bath -given mild vol OL then plan 4 hr tx tomorrow -no heparin d/t fall hx -mild anemia; no CATARINA indicated (2) Shortness of breath: extra dialysis as above working at [employer]ittling down volume; multifactorial from copd; uses nocturnal 02 (3) Fall: have been suggesting riding w/c van to dialysis but he is reluctant still; may need inpatient rehab >note also this is the leg w/ extensive vascular interventions >> monitor for need for vascular eval inpt or outpt Subjective seen on HD thsi evening 0620; tolerating tx; sob improving; some r ankle pain; no chagne in ostomy op; no chest pain or n/v Review of Systems Review of Systems: All systems reviewed & are unremarkable except as noted in HPI & below Physical Exam Constitutional: well developed, well nourished and cooperative (on RA seen on dialysis); no acute distress Eyes: EOM intact bilaterally ENMT: Ears: no external ear abnormality Nose: no external nose abnormality Mouth: + dry oral mucous membranes Neck: no nuchal rigidity Respiratory: normal respiratory effort Auscultation: + diminished lung sounds (but clear on ant exam) Cardiovascular: Rate/Rhythm: regular rate and regular rhythm (distant HS) Extremities: + edema (trace BL ankle edema) and + AV fistula (t/b+) Gastrointestinal (Abdomen): Inspection/Auscultation: normal bowel sounds Percussion/Palpation: abdomen soft; abdomen nontender Musculoskeletal: Extremities: strength 5/5 throughout Skin: no rashes, warm and dry Psychiatric: A+Ox3, euthymic affect Results & Data Vital Signs (Past 12 Hours) Vital Signs Temp Pulse Pulse Pulse Resp BP BP 11/04/19 18:40 75 107/64 11/04/19 18:20 73 122/64 11/04/19 18:00 80 108/62 11/04/19 17:40 70 123/61 11/04/19 17:20 66 119/68 11/04/19 17:00 67 123/68 11/04/19 16:58 69 133/77 11/04/19 16:48 36.6 C 69 11/04/19 15:00 66 16 147/80 H 11/04/19 14:00 75 20 140/78 11/04/19 13:42 91 H 29 H 142/82 H 11/04/19 13:40 79 13 147/75 H 11/04/19 13:39 75 20 140/68 11/04/19 13:37 75 17 143/74 H 11/04/19 13:00 72 18 11/04/19 12:42 83 24 137/78 11/04/19 12:00 74 22 11/04/19 11:15 11/04/19 11:03 79 22 11/04/19 10:55 36.7 C 82 23 136/77 11/04/19 10:54 80 21 136/77 Pulse Ox 11/04/19 18:40 11/04/19 18:20 11/04/19 18:00 11/04/19 17:40 11/04/19 17:20 11/04/19 17:00 11/04/19 16:58 11/04/19 16:48 11/04/19 15:00 97 11/04/19 14:00 97 11/04/19 13:42 11/04/19 13:40 94 11/04/19 13:39 98 11/04/19 13:37 96 11/04/19 13:00 97 11/04/19 12:42 97 11/04/19 12:00 96 11/04/19 11:15 97 11/04/19 11:03 89 L 11/04/19 10:55 97 11/04/19 10:54 97 Laboratory Results 11/04/19 11:30 11/04/19 11:30 (1) Fall Encounter type: initial encounter Qualified Code(s): W19.XXXA - Unspecified fall, initial encounter
[2019-11-04] MEDS: CALCIUM ACETATE 667 MG CAP PO SCH (19:50)
[2019-11-04] MEDS ORDERED: HEPARIN SOD 5,000 UNIT/0.5 ML VIAL SQ SCH (21:00)
[2019-11-04] MEDS: DOCUSATE SODIUM 100 MG CAP PO SCH (21:35)
[2019-11-04] MEDS: PARoxetine HCl 20 MG TAB PO SCH (21:37)
[2019-11-04] MEDS: ATORVASTATIN 40 MG TAB PO SCH (21:37)
[2019-11-04] MEDS: ACETAMINOPHEN 325 MG TAB PO PRN (22:13)
[2019-11-04] MEDS: TEMAZEPAM 15 MG CAPSULE PO PRN (22:57)
[2019-11-05 04:55] LABS: Basophils # (auto) 0.05 K/uL (0-0.2); Basophils % (auto) 0.4 %; Eosinophils # (auto) 0.41 K/uL (0-0.5); Eosinophils % (auto) 3.6 %; Immature Granulocytes # (auto) 0.19 K/uL (0.00-0.02); Immature Granulocytes % (auto) 1.7 %; Lymphocytes % (auto) 15.1 %; Mean Corpuscular Hemoglobin 33.1 pg (25-34); Mean Corpuscular Hgb Conc 33.3 g/dL (32-36); Mean Corpuscular Volume 99.4 fL (80-100); Mean Platelet Volume 8.9 fL (7.4-10.4); Monocytes # (auto) 1.07 K/uL (0.11-0.59); Monocytes % (auto) 9.5 %; Neutrophils # (auto) 7.87 K/uL (1.4-6.5); Neutrophils % (auto) 69.7 %; Platelet Count 132 K/uL (130-400); RDW Coefficient of Variation 15.6 % (11.5-14.5); RDW Standard Deviation 56.7 fL (36.4-46.3); Red Blood Count 3.32 M/uL (4.7-6.1); White Blood Count 11.29 K/uL (4.8-10.8)
[2019-11-05 05:29] LABS: Albumin Globulin Ratio 0.7 (0.9-2); Albumin Level 2.9 gm/dl (3.4-5.0); BUN Creatinine Ratio 4.3 (10-20); Bilirubin,Total 0.6 mg/dl (0.2-1); Calcium 9.1 mg/dl (8.5-10.1); Creatinine Clr Calc Pharmacy 10.1 ml/min; Est GFR (African American) 6.8; Est GFR (Non-African American) 5.9; Globulin 3.9 gm/dl (2.5-4.0); Potassium 4.9 mmol/L (3.5-5.1); Total Protein 6.8 gm/dl (6.4-8.2); Troponin I 0.05 ng/ml (0-0.045)
[2019-11-05] MEDS: LEVOTHYROXINE SODIUM 88 MCG TABLET PO SCH (05:43)
[2019-11-05 06:20] LABS: Estimated Average Glucose 111 mg/dl; Hemoglobin A1C 5.5 % (4.5-5.6)
[2019-11-05] MEDS ORDERED: SODIUM CHLORIDE 0.9% 1000ML 1,000 ML IV PRN (07:00)
[2019-11-05] MEDS ORDERED: HEPARIN SOD (PORCINE) 1000 UNIT/ML 10 ML VIAL IV ONE (07:00)
[2019-11-05] MEDS: CALCIUM ACETATE 667 MG CAP PO SCH ×3 (07:38→16:58)
[2019-11-05] MEDS: CLOPIDOGREL BISULFATE 75 MG TAB PO SCH (07:39)
[2019-11-05] MEDS: ASPIRIN 81 MG ECTAB PO SCH (07:39)
[2019-11-05] MEDS: AMIODARONE 200 MG TAB PO SCH (07:39)
[2019-11-05] MEDS: TIOTROPIUM BROMIDE 5 PUFF/90 MCG INH INH SCH (07:40)
[2019-11-05] MEDS: PANTOprazole 40 MG TAB PO SCH (07:40)
[2019-11-05] MEDS: ACETAMINOPHEN 325 MG TAB PO PRN (07:42)
[2019-11-05] MEDS: PREGABALIN 75 MG CAP PO SCH (08:10)
[2019-11-05] MEDS: HEPARIN SOD (PORCINE) 1000 UNIT/ML 10 ML VIAL IV SCH ×4 (10:30→16:33)
--- NOTE | 2019-11-05 13:20 | Hospitalist Progress Note ---
Date of Service November 05, 2019 Assessment & Plan (1) ESRD (end stage renal disease) on dialysis: ESRD on MWF HD via avf tolerating 2 hr HD yesterday and on track for 2L UF; 2K bath Will have another 2 h of HD today no heparin d/t fall hx mild anemia; no CATARINA indicated DVT ppx SCD-s and teds PT/OT s/p HD- tomorrow for mechanical falls. Full code (2) Shortness of breath: extra dialysis as above working at whittling down volume; multifactorial from copd; uses nocturnal 02 (3) Fall: have been suggesting riding w/c van to dialysis but he is reluctant still; may need inpatient rehab note also this is the leg w/ extensive vascular interventions >> monitor for need for vascular eval inpt or outpt (4) CHF (congestive heart failure): Continue home medicine: Amiodarone 200 mg p.o. every other day Aspirin 81 mg p.o. every morning Apidra well 75 mg p.o. every morning (5) Elevated troponin: Continue monitoring troponin x3 Likely due to demand ischemia in conjunction with end-stage renal disease and poor clearance. Continue monitoring (6) Right ankle sprain: Issue resolved. X-rays did not show any fracture or swelling. (7) COPD (chronic obstructive pulmonary disease): Continue home medicine: Breo Ellipta 1 inhalation every morning Suppressive therapy with azithromycin 500 mg p.o. as directed Spiriva 1 capsule inhalation every morning (8) Orthostatic hypotension: Patient exhibits autonomic instability. Especially after hemodialysis he cannot control his blood pressure very well and he has issues with maintaining it. Continue monitoring blood pressure and adjusting body before standing up from sitting position. Subjective Patient is seen and examined at the bedside. He is slowly improving. Supposed to have another 2 hours of hemodialysis today. Appetite is good. Patient denies fever, chills, chest pain, shortness of breath, abdominal pain, frequency, urgency. Review of Systems Review of Systems: All systems reviewed & are unremarkable except as noted in HPI & below Physical Exam Constitutional: well developed, well nourished and cooperative (on RA seen on dialysis); no acute distress Eyes: EOM intact bilaterally ENMT: Ears: no external ear abnormality Nose: no external nose abnormality Mouth: + dry oral mucous membranes Neck: no nuchal rigidity Respiratory: normal respiratory effort Auscultation: + diminished lung sounds (but clear on ant exam) Cardiovascular: Rate/Rhythm: regular rate and regular rhythm (distant HS) Extremities: + edema (trace BL ankle edema) and + AV fistula (t/b+) Gastrointestinal (Abdomen): Inspection/Auscultation: normal bowel sounds Percussion/Palpation: abdomen soft; abdomen nontender Musculoskeletal: Extremities: strength 5/5 throughout Skin: no rashes, warm and dry Psychiatric: A+Ox3, euthymic affect Results & Data Vital Signs (Past 12 Hours) Vital Signs Temp Pulse Pulse Pulse Resp BP BP 11/05/19 13:00 73 98/55 L 11/05/19 12:40 73 99/59 L 11/05/19 12:20 75 102/60 11/05/19 12:00 72 108/57 L 11/05/19 11:40 72 101/55 L 11/05/19 11:20 74 98/54 L 11/05/19 11:00 71 99/51 L 11/05/19 10:40 73 97/52 L 11/05/19 10:20 72 107/60 11/05/19 10:00 73 96/51 L 11/05/19 09:40 72 114/59 L 11/05/19 09:25 36.6 C 73 11/05/19 07:28 36.6 C 67 16 148/74 H 11/05/19 03:59 36.7 C 67 18 127/67 Pulse Ox 11/05/19 13:00 11/05/19 12:40 11/05/19 12:20 11/05/19 12:00 11/05/19 11:40 11/05/19 11:20 11/05/19 11:00 11/05/19 10:40 11/05/19 10:20 11/05/19 10:00 11/05/19 09:40 11/05/19 09:25 11/05/19 07:28 93 11/05/19 03:59 94 PG Care Time/CCT Total # of Minutes Spent Total Time Spent with Patient: Total time spent is greater than 50% in coordination of care (as documented) at patient's floor/unit and/or counseling patient: (1) CHF (congestive heart failure) Heart failure chronicity: unspecified Heart failure type: unspecified Qualified Code(s): I50.9 - Heart failure, unspecified (2) Fall Encounter type: initial encounter Qualified Code(s): W19.XXXA - Unspecified fall, initial encounter (3) Right ankle sprain Encounter type: initial encounter Involved ligament of ankle: unspecified ligament Qualified Code(s): S93.401A - Sprain of unspecified ligament of right ankle, initial encounter
--- NOTE | 2019-11-05 15:36 | Nephrology Progress Note ---
Date of Service November 05, 2019 Assessment & Plan (1) ESRD (end stage renal disease) on dialysis: ESRD on MWF HD via avf -tolerating HD today. BP is soft. Will give midodrine 5mg mid treatment if systolic is below 90 -Next HD Thursday -mild anemia; no CATARINA indicated (2) Shortness of breath: extra dialysis as above working at whittling down volume; multifactorial from copd; uses nocturnal 02 (3) Fall: have been suggesting riding w/c van to dialysis but he is reluctant still; may need inpatient rehab >note also this is the leg w/ extensive vascular interventions >> monitor for need for vascular eval inpt or outpt Subjective Patient seen and examined while on dialysis. Still c/o exertional dyspnea and leg weakness. Review of Systems Review of Systems: All systems reviewed & are unremarkable except as noted in HPI & below Physical Exam Physical Exam: General exam: Appears comfortable, no acute distress HEENT: Pupils are equal and reactive to light Neck: No JVD, neck is supple trachea is midline Respiratory system: Clear breath sounds bilaterally. Gastrointestinal: Abdomen is soft, non distended, non tender, bowel sounds are present CVS: Regular rate and rhythm. No murmurs, rubs or gallops Musculoskeletal: No joint or muscle tenderness Extremities: Non tender, no edema, peripheral pulses are present Neuro: Oriented, no tremors, no focal neurological deficits Skin: No rashes Access: AVF Results & Data Vital Signs (Past 12 Hours) Vital Signs Temp Pulse Pulse Pulse Resp BP BP 11/05/19 15:00 36.7 C 78 18 134/75 11/05/19 13:00 73 98/55 L 11/05/19 12:40 73 99/59 L 11/05/19 12:20 75 102/60 11/05/19 12:00 72 108/57 L 11/05/19 11:40 72 101/55 L 11/05/19 11:20 74 98/54 L 11/05/19 11:00 71 99/51 L 11/05/19 10:40 73 97/52 L 11/05/19 10:20 72 107/60 11/05/19 10:00 73 96/51 L 11/05/19 09:40 72 114/59 L 11/05/19 09:25 36.6 C 73 11/05/19 07:28 36.6 C 67 16 148/74 H 11/05/19 03:59 36.7 C 67 18 127/67 Pulse Ox 11/05/19 15:00 94 11/05/19 13:00 11/05/19 12:40 11/05/19 12:20 11/05/19 12:00 11/05/19 11:40 11/05/19 11:20 11/05/19 11:00 11/05/19 10:40 11/05/19 10:20 11/05/19 10:00 11/05/19 09:40 11/05/19 09:25 11/05/19 07:28 93 11/05/19 03:59 94 Laboratory Results Laboratory Results - last 24 hr 11/04/19 11/04/19 11/04/19 12:35 19:25 22:06 WBC RBC Hgb Hct MCV MCH MCHC RDW Std Deviation RDW Coeff of Jolanta Plt Count MPV Immature Gran % (Auto) Neut % (Auto) Lymph % (Auto) Blount % (Auto) Eos % (Auto) Baso % (Auto) Immature Gran # (Auto) Neut # (Auto) Lymph # (Auto) Blount # (Auto) Eos # (Auto) Baso # (Auto) Sodium Potassium Chloride Carbon Dioxide Anion Gap BUN Creatinine Est Cr Clr Drug Dosing Est GFR ( Amer) Est GFR (Non-Af Amer) BUN/Creatinine Ratio Glucose Estimat Average Glucose Hemoglobin A1c Calcium Total Bilirubin AST ALT Alkaline Phosphatase Troponin I 0.045 0.047 H* NT-Pro-B Natriuret Pep 74359 H Total Protein Albumin Globulin Albumin/Globulin Ratio Triglycerides Cholesterol LDL Cholesterol, Calc VLDL Cholesterol, Calc HDL Cholesterol Cholesterol/HDL Ratio TSH 3.400 Nasal Screen MRSA (PCR) Positive A 11/05/19 11/05/19 11/05/19 04:23 04:23 04:23 WBC 11.29 H RBC 3.32 L Hgb 11.0 L Hct 33.0 L MCV 99.4 MCH 33.1 MCHC 33.3 RDW Std Deviation 56.7 H RDW Coeff of Jolanta 15.6 H Plt Count 132 MPV 8.9 Immature Gran % (Auto) 1.7 Neut % (Auto) 69.7 Lymph % (Auto) 15.1 Blount % (Auto) 9.5 Eos % (Auto) 3.6 Baso % (Auto) 0.4 Immature Gran # (Auto) 0.19 H Neut # (Auto) 7.87 H Lymph # (Auto) 1.70 Blount # (Auto) 1.07 H Eos # (Auto) 0.41 Baso # (Auto) 0.05 Sodium 135 L Potassium 4.9 Chloride 99 Carbon Dioxide 29 Anion Gap 7.0 BUN 35 H Creatinine 8.12 H* D Est Cr Clr Drug Dosing 10.1 Est GFR ( Amer) 6.8 Est GFR (Non-Af Amer) 5.9 BUN/Creatinine Ratio 4.3 L Glucose 88 Estimat Average Glucose 111 Hemoglobin A1c 5.5 Calcium 9.1 Total Bilirubin 0.6 AST 19 ALT 39 Alkaline Phosphatase 121 H Troponin I 0.050 H* NT-Pro-B Natriuret Pep Total Protein 6.8 Albumin 2.9 L Globulin 3.9 Albumin/Globulin Ratio 0.7 L Triglycerides 180 H Cholesterol 97 LDL Cholesterol, Calc 19 VLDL Cholesterol, Calc 36 HDL Cholesterol 42 Cholesterol/HDL Ratio 2 TSH Nasal Screen MRSA (PCR) (1) Fall Encounter type: initial encounter Qualified Code(s): W19.XXXA - Unspecified fall, initial encounter
[2019-11-05] MEDS: DOCUSATE SODIUM 100 MG CAP PO SCH (20:26)
[2019-11-05] MEDS: PARoxetine HCl 20 MG TAB PO SCH (20:26)
[2019-11-05] MEDS: ATORVASTATIN 40 MG TAB PO SCH (20:26)
[2019-11-05] MEDS: TEMAZEPAM 15 MG CAPSULE PO PRN (20:31)
[2019-11-06 06:31] LABS: Basophils # (auto) 0.04 K/uL (0-0.2); Basophils % (auto) 0.4 %; Eosinophils # (auto) 0.43 K/uL (0-0.5); Eosinophils % (auto) 4.1 %; Hematocrit (blood only) 34.2 % (42-52); Hemoglobin 11.3 g/dL (14.0-18.0); Immature Granulocytes # (auto) 0.15 K/uL (0.00-0.02); Immature Granulocytes % (auto) 1.4 %; Lymphocytes # (auto) 1.49 K/uL (1.2-3.4); Lymphocytes % (auto) 14.1 %; Mean Corpuscular Hemoglobin 32.7 pg (25-34); Mean Corpuscular Volume 98.8 fL (80-100); Monocytes # (auto) 1.25 K/uL (0.11-0.59); Monocytes % (auto) 11.8 %; Neutrophils # (auto) 7.22 K/uL (1.4-6.5); Neutrophils % (auto) 68.2 %; Platelet Count 131 K/uL (130-400); RDW Coefficient of Variation 15.6 % (11.5-14.5); RDW Standard Deviation 56.4 fL (36.4-46.3); Red Blood Count 3.46 M/uL (4.7-6.1); White Blood Count 10.58 K/uL (4.8-10.8)
[2019-11-06 07:29] LABS: Albumin Globulin Ratio 0.8 (0.9-2); Albumin Level 3.1 gm/dl (3.4-5.0); BUN Creatinine Ratio 4.5 (10-20); Bilirubin,Total 0.7 mg/dl (0.2-1); Calcium 9.7 mg/dl (8.5-10.1); Creatinine Clr Calc Pharmacy 12.4 ml/min; Est GFR (African American) 8.5; Est GFR (Non-African American) 7.4; Globulin 4.1 gm/dl (2.5-4.0); Potassium 4.3 mmol/L (3.5-5.1); Total Protein 7.2 gm/dl (6.4-8.2)
[2019-11-06] MEDS: LEVOTHYROXINE SODIUM 88 MCG TABLET PO SCH (09:08)
[2019-11-06] MEDS: ASPIRIN 81 MG ECTAB PO SCH (09:09)
[2019-11-06] MEDS: CLOPIDOGREL BISULFATE 75 MG TAB PO SCH (09:09)
[2019-11-06] MEDS: CALCIUM ACETATE 667 MG CAP PO SCH ×3 (09:09→16:49)
[2019-11-06] MEDS: PANTOprazole 40 MG TAB PO SCH (09:09)
[2019-11-06] MEDS: TIOTROPIUM BROMIDE 5 PUFF/90 MCG INH INH SCH (09:09)
[2019-11-06] MEDS: PREGABALIN 75 MG CAP PO SCH (09:14)
--- NOTE | 2019-11-06 11:30 | Hospitalist Progress Note ---
Date of Service November 06, 2019 Assessment & Plan (1) ESRD (end stage renal disease) on dialysis: ESRD on MWF HD via avf Had in hemodialysis on Thursday and Thursday. No hemodialysis today. Hemodialysis planned for tomorrow restart midodrine 5 mg a start of treatment and mid to treatment if systolic is below 90. no heparin d/t fall hx mild anemia; no CATARINA indicated DVT ppx SCD-s and teds PT/OT s/p HD- tomorrow for mechanical falls. Full code (2) Shortness of breath: extra dialysis as above working at [employer]; multifactorial from copd; uses nocturnal 02 (3) Fall: have been suggesting riding w/c van to dialysis but he is reluctant still; may need inpatient rehab note also this is the leg w/ extensive vascular interventions >> monitor for need for vascular eval inpt or outpt (4) CHF (congestive heart failure): Continue home medicine: Amiodarone 200 mg p.o. every other day Aspirin 81 mg p.o. every morning Apidra well 75 mg p.o. every morning (5) Elevated troponin: Continue monitoring troponin x3 Likely due to demand ischemia in conjunction with end-stage renal disease and poor clearance. Continue monitoring (6) Right ankle sprain: Issue resolved. X-rays did not show any fracture or swelling. (7) COPD (chronic obstructive pulmonary disease): Continue home medicine: Breo Ellipta 1 inhalation every morning Suppressive therapy with azithromycin 500 mg p.o. as directed Spiriva 1 capsule inhalation every morning (8) Orthostatic hypotension: Patient exhibits autonomic instability. Especially after hemodialysis he cannot control his blood pressure very well and he has issues with maintaining it. Continue monitoring blood pressure and adjusting body before standing up from sitting position. Subjective Patient is seen and examined at the bedside. Feels better today sitting in recliner. Next hemodialysis on Thursday. Appetite is good. Nephrology recommended to restart midodrine 5 mg a start of treatment and mid to treatment if systolic is below 90. Patient denies fever, chills, chest pain, shortness of breath, abdominal pain, frequency, urgency. Review of Systems Review of Systems: All systems reviewed & are unremarkable except as noted in HPI & below Physical Exam Constitutional: well developed, well nourished and cooperative (on RA seen on dialysis); no acute distress Eyes: EOM intact bilaterally ENMT: Ears: no external ear abnormality Nose: no external nose abnormality Mouth: + dry oral mucous membranes Neck: no nuchal rigidity Respiratory: normal respiratory effort Auscultation: + diminished lung sounds (but clear on ant exam) Cardiovascular: Rate/Rhythm: regular rate and regular rhythm (distant HS) Extremities: + edema (trace BL ankle edema) and + AV fistula (t/b+) Gastrointestinal (Abdomen): Inspection/Auscultation: normal bowel sounds Percussion/Palpation: abdomen soft; abdomen nontender Musculoskeletal: Extremities: strength 5/5 throughout Skin: no rashes, warm and dry Psychiatric: A+Ox3, euthymic affect Results & Data Vital Signs (Past 12 Hours) Vital Signs Temp Pulse Pulse Resp BP Pulse Ox 11/06/19 07:41 69 11/06/19 07:18 36.6 C 67 16 138/71 95 11/06/19 04:22 36.6 C 73 18 127/53 L 95 11/06/19 00:00 79 11/05/19 23:32 36.7 C 81 18 109/55 L 90 PG Care Time/CCT Total # of Minutes Spent Total Time Spent with Patient: Total time spent is greater than 50% in coordination of care (as documented) at patient's floor/unit and/or counseling patient: (1) CHF (congestive heart failure) Heart failure chronicity: unspecified Heart failure type: unspecified Qualified Code(s): I50.9 - Heart failure, unspecified (2) Fall Encounter type: initial encounter Qualified Code(s): W19.XXXA - Unspecified fall, initial encounter (3) Right ankle sprain Encounter type: initial encounter Involved ligament of ankle: unspecified ligament Qualified Code(s): S93.401A - Sprain of unspecified ligament of right ankle, initial encounter
[2019-11-06] MEDS: ACETAMINOPHEN 325 MG TAB PO PRN (16:52)
--- NOTE | 2019-11-06 18:00 | Nephrology Progress Note ---
Date of Service November 06, 2019 Assessment & Plan (1) ESRD (end stage renal disease) on dialysis: ESRD on MWF HD via avf -tolerating HD yesterday. BP is soft. Suggest restarting midodrine 5mg at start of treatment and mid treatment if systolic is below 90 -Next HD Thursday -mild anemia; no CATARINA indicated (2) Shortness of breath: extra dialysis as above working at [employer]; multifactorial from copd; uses nocturnal 02 (3) Fall: have been suggesting riding w/c van to dialysis but he is reluctant still; may need inpatient rehab >note also this is the leg w/ extensive vascular interventions >> monitor for need for vascular eval inpt or outpt Subjective He feels better today. Able to sit up in chair. Did some walking with PT but still weak in the legs. Prefers to go home with PT. Had HD yesterday Review of Systems Review of Systems: All systems reviewed & are unremarkable except as noted in HPI & below Physical Exam Physical Exam: General exam: Appears comfortable, no acute distress HEENT: Pupils are equal and reactive to light Neck: No JVD, neck is supple trachea is midline Respiratory system: Clear breath sounds bilaterally. Gastrointestinal: Abdomen is soft, non distended, non tender, bowel sounds are present CVS: Regular rate and rhythm. No murmurs, rubs or gallops Musculoskeletal: No joint or muscle tenderness Extremities: Non tender, no edema, peripheral pulses are present Neuro: Oriented, no tremors, no focal neurological deficits Skin: No rashes Access: AVF Results & Data Vital Signs (Past 12 Hours) Vital Signs Temp Pulse Pulse Resp BP Pulse Ox Pulse Ox 11/06/19 16:00 68 11/06/19 15:00 36.8 C 79 20 146/74 H 94 11/06/19 13:24 95 11/06/19 11:54 36.7 C 72 16 142/71 H 93 11/06/19 11:41 80 L 11/06/19 07:41 69 11/06/19 07:18 36.6 C 67 16 138/71 95 Laboratory Results Laboratory Results - last 24 hr 11/06/19 11/06/19 06:00 06:00 WBC 10.58 RBC 3.46 L Hgb 11.3 L Hct 34.2 L MCV 98.8 MCH 32.7 MCHC 33.0 RDW Std Deviation 56.4 H RDW Coeff of Jolanta 15.6 H Plt Count 131 MPV 9.0 Immature Gran % (Auto) 1.4 Neut % (Auto) 68.2 Lymph % (Auto) 14.1 Ellis % (Auto) 11.8 Eos % (Auto) 4.1 Baso % (Auto) 0.4 Immature Gran # (Auto) 0.15 H Neut # (Auto) 7.22 H Lymph # (Auto) 1.49 Ellis # (Auto) 1.25 H Eos # (Auto) 0.43 Baso # (Auto) 0.04 Sodium 135 L Potassium 4.3 Chloride 98 Carbon Dioxide 32 Anion Gap 5.0 BUN 31 H Creatinine 6.73 H* D Est Cr Clr Drug Dosing 12.4 Est GFR ( Amer) 8.5 Est GFR (Non-Af Amer) 7.4 BUN/Creatinine Ratio 4.5 L Glucose 96 Calcium 9.7 Total Bilirubin 0.7 AST 18 ALT 37 Alkaline Phosphatase 126 H Total Protein 7.2 Albumin 3.1 L Globulin 4.1 H Albumin/Globulin Ratio 0.8 L (1) Fall Encounter type: initial encounter Qualified Code(s): W19.XXXA - Unspecified fall, initial encounter
[2019-11-06] MEDS: TEMAZEPAM 15 MG CAPSULE PO PRN (20:45)
[2019-11-06] MEDS: ATORVASTATIN 40 MG TAB PO SCH (20:46)
[2019-11-06] MEDS: DOCUSATE SODIUM 100 MG CAP PO SCH (20:46)
[2019-11-06] MEDS: PARoxetine HCl 20 MG TAB PO SCH (20:46)
[2019-11-07] MEDS: LEVOTHYROXINE SODIUM 88 MCG TABLET PO SCH (06:11)
[2019-11-07 07:17] LABS: Basophils # (auto) 0.05 K/uL (0-0.2); Basophils % (auto) 0.5 %; Eosinophils # (auto) 0.44 K/uL (0-0.5); Eosinophils % (auto) 4.3 %; Hematocrit (blood only) 34.8 % (42-52); Hemoglobin 11.6 g/dL (14.0-18.0); Immature Granulocytes # (auto) 0.11 K/uL (0.00-0.02); Immature Granulocytes % (auto) 1.1 %; Lymphocytes # (auto) 1.23 K/uL (1.2-3.4); Lymphocytes % (auto) 11.9 %; Mean Corpuscular Hemoglobin 32.8 pg (25-34); Mean Corpuscular Hgb Conc 33.3 g/dL (32-36); Mean Corpuscular Volume 98.3 fL (80-100); Mean Platelet Volume 8.9 fL (7.4-10.4); Monocytes % (auto) 11.6 %; Neutrophils % (auto) 70.6 %; Platelet Count 124 K/uL (130-400); RDW Coefficient of Variation 15.4 % (11.5-14.5); RDW Standard Deviation 55.1 fL (36.4-46.3); Red Blood Count 3.54 M/uL (4.7-6.1); White Blood Count 10.33 K/uL (4.8-10.8)
[2019-11-07 08:02] LABS: Albumin Globulin Ratio 0.7 (0.9-2); BUN Creatinine Ratio 5.3 (10-20); Bilirubin,Total 0.6 mg/dl (0.2-1); Calcium 9.6 mg/dl (8.5-10.1); Creatinine Clr Calc Pharmacy 8.4 ml/min; Est GFR (African American) 5.4; Est GFR (Non-African American) 4.6; Globulin 4.2 gm/dl (2.5-4.0); Potassium 4.5 mmol/L (3.5-5.1); Total Protein 7.2 gm/dl (6.4-8.2)
[2019-11-07] MEDS ORDERED: HEPARIN SOD (PORCINE) 1000 UNIT/ML 10 ML VIAL IV ONE (08:09)
[2019-11-07] MEDS ORDERED: SODIUM CHLORIDE 0.9% 1000ML 1,000 ML IV PRN (08:09)
[2019-11-07] MEDS: CALCIUM ACETATE 667 MG CAP PO SCH ×4 (08:29→17:27)
[2019-11-07] MEDS: AMIODARONE 200 MG TAB PO SCH (08:30)
[2019-11-07] MEDS: ASPIRIN 81 MG ECTAB PO SCH (08:30)
[2019-11-07] MEDS: CLOPIDOGREL BISULFATE 75 MG TAB PO SCH (08:30)
[2019-11-07] MEDS: PREGABALIN 75 MG CAP PO SCH (08:30)
[2019-11-07] MEDS: TIOTROPIUM BROMIDE 5 PUFF/90 MCG INH INH SCH (08:31)
[2019-11-07] MEDS: PANTOprazole 40 MG TAB PO SCH (08:31)
[2019-11-07] MEDS ORDERED: FAMOTIDINE 20 MG TAB PO SCH (09:00)
--- NOTE | 2019-11-07 10:13 | Dialysis Progress Note ---
Date of Service November 07, 2019 Assessment & Plan (1) ESRD (end stage renal disease) on dialysis: ESRD on MWF HD via avf -on HD today -Next HD thursday -mild anemia; no CATARINA indicated -for dialysis related MELGOZA >> could try verapamil 80 mg prior to HD or tizanidine 1-2 mg pre, post and one prn dose6 hrs post tx; however both of these cause hypotension; reluctant to start them w/o as inpt; may need OP neuro eval (2) Shortness of breath: improved today; at presentation needed extra dialysis as above working at [employer]; multifactorial from copd; uses nocturnal 02 (3) Fall: have been suggesting riding w/c van to dialysis but he is reluctant still; may need inpatient rehab >note also this is the leg w/ extensive vascular interventions >> monitor for need for vascular eval inpt or outpt Subjective doing ok; [facility]; c/o leg weakness, cold intolerance, MELGOZA persisting long after HD; Review of Systems Review of Systems: All systems reviewed & are unremarkable except as noted in HPI & below Physical Exam Constitutional: well developed, well nourished and cooperative (on RA seen on dialysis); no acute distress Eyes: EOM intact bilaterally ENMT: Ears: no external ear abnormality Nose: no external nose abnormality Mouth: + dry oral mucous membranes Neck: no nuchal rigidity Respiratory: normal respiratory effort Auscultation: + diminished lung sounds (but clear on ant exam) Cardiovascular: Rate/Rhythm: regular rate and regular rhythm (distant HS) Extremities: + edema (trace BL ankle edema) and + AV fistula (t/b+) Gastrointestinal (Abdomen): Inspection/Auscultation: normal bowel sounds Percussion/Palpation: abdomen soft; abdomen nontender Musculoskeletal: Extremities: strength 5/5 throughout Skin: no rashes, warm and dry Neurologic: tompkins, fluent speech, no tremor Psychiatric: A+Ox3, euthymic affect Results & Data Vital Signs (Past 12 Hours) Vital Signs Temp Pulse Pulse Resp BP Pulse Ox 11/07/19 07:15 36.6 C 80 16 129/69 92 11/07/19 04:42 36.4 C L 77 17 120/61 93 11/07/19 00:44 68 11/06/19 23:05 36.7 C 70 18 151/71 H 92 (1) Fall Encounter type: initial encounter Qualified Code(s): W19.XXXA - Unspecified fall, initial encounter
--- NOTE | 2019-11-07 13:25 | Hospitalist Progress Note ---
Date of Service November 07, 2019 Assessment & Plan (1) ESRD (end stage renal disease) on dialysis: ESRD on MWF HD via avf Had in hemodialysis on Thursday and Thursday. Hemodialysis planned for today restart midodrine 5 mg a start of treatment and mid to treatment if systolic is below 90. no heparin d/t fall hx mild anemia; no CATARINA indicated DVT ppx SCD-s and teds PT/OT s/p HD Full code (2) Shortness of breath: extra dialysis as above working at [employer]; multifactorial from copd; uses nocturnal 02 (3) Fall: have been suggesting riding w/c van to dialysis but he is reluctant still; may need inpatient rehab note also this is the leg w/ extensive vascular interventions >> monitor for need for vascular eval inpt or outpt (4) CHF (congestive heart failure): Continue home medicine: Amiodarone 200 mg p.o. every other day Aspirin 81 mg p.o. every morning Apidra well 75 mg p.o. every morning (5) Elevated troponin: Continue monitoring troponin x3 Likely due to demand ischemia in conjunction with end-stage renal disease and poor clearance. Continue monitoring (6) Right ankle sprain: Issue resolved. X-rays did not show any fracture or swelling. (7) COPD (chronic obstructive pulmonary disease): Continue home medicine: Breo Ellipta 1 inhalation every morning or equivalent per pharmacy. Suppressive therapy with azithromycin 500 mg p.o. as directed Spiriva 1 capsule inhalation every morning (8) Orthostatic hypotension: Patient exhibits autonomic instability. Especially after hemodialysis he cannot control his blood pressure very well and he has issues with maintaining it. Continue monitoring blood pressure and adjusting body before standing up from sitting position. Disposition pending on PT/OT eval Subjective Patient seen and examined at the bedside. Patient said that he feels much better. P.o. intake is good. Patient is sitting up in the bed. Going to have another 2 hours hemodialysis this morning. Otherwise denies fever, chills, chest pain, shortness of breath, abdominal pain, frequency, urgency, episodes of hypotension or orthostatic hypotension. Review of Systems Review of Systems: All systems reviewed & are unremarkable except as noted in HPI & below Physical Exam Constitutional: well developed, well nourished and cooperative (on RA seen on dialysis); no acute distress Eyes: EOM intact bilaterally ENMT: Ears: no external ear abnormality Nose: no external nose abnormality Mouth: oral mucous membranes not dry Neck: no nuchal rigidity Respiratory: normal respiratory effort Auscultation: + diminished lung sounds (but clear on ant exam) Cardiovascular: Rate/Rhythm: regular rate and regular rhythm (distant HS) Extremities: + edema (trace BL ankle edema) and + AV fistula (t/b+) Gastrointestinal (Abdomen): Inspection/Auscultation: normal bowel sounds Percussion/Palpation: abdomen soft; abdomen nontender Musculoskeletal: Extremities: strength 5/5 throughout Skin: no rashes, warm and dry Psychiatric: A+Ox3, euthymic affect Results & Data Vital Signs (Past 12 Hours) Vital Signs Temp Pulse Pulse Resp BP Pulse Ox 11/07/19 11:09 76 11/07/19 07:15 36.6 C 80 16 129/69 92 11/07/19 04:42 36.4 C L 77 17 120/61 93 PG Care Time/CCT Total # of Minutes Spent Total Time Spent with Patient: Total time spent is greater than 50% in coordination of care (as documented) at patient's floor/unit and/or counseling patient: (1) CHF (congestive heart failure) Heart failure chronicity: unspecified Heart failure type: unspecified Qualified Code(s): I50.9 - Heart failure, unspecified (2) Fall Encounter type: initial encounter Qualified Code(s): W19.XXXA - Unspecified fall, initial encounter (3) Right ankle sprain Encounter type: initial encounter Involved ligament of ankle: unspecified ligament Qualified Code(s): S93.401A - Sprain of unspecified ligament of right ankle, initial encounter
[2019-11-07] MEDS: HEPARIN SOD (PORCINE) 1000 UNIT/ML 10 ML VIAL IV SCH ×2 (15:05→15:06)
[2019-11-07] MEDS: BUDESONIDE/FORMOTEROL FUMARATE 160/4.5 60 PUFFS/INHALER INH SCH (21:14)
[2019-11-07] MEDS: DOCUSATE SODIUM 100 MG CAP PO SCH (21:15)
[2019-11-07] MEDS: ATORVASTATIN 40 MG TAB PO SCH (21:15)
[2019-11-07] MEDS: PARoxetine HCl 20 MG TAB PO SCH (21:16)
[2019-11-07] MEDS: TEMAZEPAM 15 MG CAPSULE PO PRN (23:45)
[2019-11-08] MEDS: LEVOTHYROXINE SODIUM 88 MCG TABLET PO SCH (06:13)
[2019-11-08 07:20] LABS: Basophils # (auto) 0.06 K/uL (0-0.2); Basophils % (auto) 0.5 %; Eosinophils # (auto) 0.45 K/uL (0-0.5); Eosinophils % (auto) 3.9 %; Hematocrit (blood only) 34.2 % (42-52); Hemoglobin 11.4 g/dL (14.0-18.0); Immature Granulocytes # (auto) 0.14 K/uL (0.00-0.02); Immature Granulocytes % (auto) 1.2 %; Mean Corpuscular Hemoglobin 32.9 pg (25-34); Mean Corpuscular Hgb Conc 33.3 g/dL (32-36); Mean Corpuscular Volume 98.8 fL (80-100); Mean Platelet Volume 9.1 fL (7.4-10.4); Monocytes # (auto) 1.75 K/uL (0.11-0.59); Monocytes % (auto) 15.2 %; Neutrophils # (auto) 7.62 K/uL (1.4-6.5); Neutrophils % (auto) 66.2 %; Platelet Count 125 K/uL (130-400); RDW Coefficient of Variation 15.6 % (11.5-14.5); RDW Standard Deviation 55.5 fL (36.4-46.3); Red Blood Count 3.46 M/uL (4.7-6.1); White Blood Count 11.52 K/uL (4.8-10.8)
[2019-11-08] MEDS: CLOPIDOGREL BISULFATE 75 MG TAB PO SCH (09:25)
[2019-11-08] MEDS: TIOTROPIUM BROMIDE 5 PUFF/90 MCG INH INH SCH (09:25)
[2019-11-08] MEDS: PANTOprazole 40 MG TAB PO SCH (09:25)
[2019-11-08] MEDS: ASPIRIN 81 MG ECTAB PO SCH (09:25)
[2019-11-08] MEDS: CALCIUM ACETATE 667 MG CAP PO SCH ×3 (09:25→17:07)
[2019-11-08] MEDS: BUDESONIDE/FORMOTEROL FUMARATE 160/4.5 60 PUFFS/INHALER INH SCH (09:26)
[2019-11-08] MEDS: PREGABALIN 75 MG CAP PO SCH (09:31)
--- NOTE | 2019-11-08 22:11 | Hospitalist Progress Note ---
Date of Service November 08, 2019 Assessment & Plan (1) ESRD (end stage renal disease) on dialysis: ESRD on MWF HD via avf Had in hemodialysis on Thursday and Thursday. Hemodialysis planned for today restart midodrine 5 mg a start of treatment and mid to treatment if systolic is below 90. no heparin d/t fall hx mild anemia; no CATARINA indicated DVT ppx SCD-s and teds PT/OT s/p HD Full code (2) Shortness of breath: extra dialysis as above working at [employer]; multifactorial from copd; uses nocturnal 02 (3) Fall: d/c-ed to SNF for PT/OT (4) CHF (congestive heart failure): Continue home medicine: Amiodarone 200 mg p.o. every other day Aspirin 81 mg p.o. every morning Apidra well 75 mg p.o. every morning (5) Elevated troponin: Resolved Likely due to demand ischemia in conjunction with end-stage renal disease and poor clearance. Continue monitoring (6) Right ankle sprain: Issue resolved. X-rays did not show any fracture or swelling. (7) COPD (chronic obstructive pulmonary disease): Continue home medicine: Breo Ellipta 1 inhalation every morning or equivalent per pharmacy. Suppressive therapy with azithromycin 500 mg p.o. as directed Spiriva 1 capsule inhalation every morning (8) Orthostatic hypotension: Patient exhibits autonomic instability. Especially after hemodialysis he cannot control his blood pressure very well and he has issues with maintaining it. Continue monitoring blood pressure and adjusting body before standing up from sitting position. Disposition pending on PT/OT eval Subjective Patient seen and examined at the bedside. Patient said that he feels much better. P.o. intake is good.Otherwise denies fever, chills, chest pain, shortness of breath, abdominal pain, frequency, urgency, episodes of hypotension or orthostatic hypotension. Review of Systems Review of Systems: All systems reviewed & are unremarkable except as noted in HPI & below Physical Exam Constitutional: well developed, well nourished and cooperative (on RA seen on dialysis); no acute distress Eyes: EOM intact bilaterally ENMT: Ears: no external ear abnormality Nose: no external nose abnormality Mouth: oral mucous membranes not dry Neck: no nuchal rigidity Respiratory: normal respiratory effort Auscultation: + diminished lung sounds (but clear on ant exam) Cardiovascular: Rate/Rhythm: regular rate and regular rhythm (distant HS) Extremities: + AV fistula (t/b+); no edema (trace BL ankle edema) Gastrointestinal (Abdomen): Inspection/Auscultation: normal bowel sounds Percussion/Palpation: abdomen soft; abdomen nontender Musculoskeletal: Extremities: strength 5/5 throughout Skin: no rashes, warm and dry Psychiatric: A+Ox3, euthymic affect Results & Data Vital Signs (Past 12 Hours) Vital Signs Temp Pulse Pulse Resp BP Pulse Ox 11/08/19 16:33 36.3 C L 83 77 18 118/70 95 11/08/19 16:00 36.3 C L 77 18 118/70 95 11/08/19 11:44 36.3 C L 83 18 127/73 94 PG Care Time/CCT Total # of Minutes Spent Total Time Spent with Patient: Total time spent is greater than 50% in coordination of care (as documented) at patient's floor/unit and/or counseling patient: (1) Fall Encounter type: initial encounter Qualified Code(s): W19.XXXA - Unspecified fall, initial encounter (2) CHF (congestive heart failure) Heart failure chronicity: unspecified Heart failure type: unspecified Qualified Code(s): I50.9 - Heart failure, unspecified (3) Right ankle sprain Encounter type: initial encounter Involved ligament of ankle: unspecified ligament Qualified Code(s): S93.401A - Sprain of unspecified ligament of right ankle, initial encounter
--- NOTE | 2019-11-08 22:13 | Discharge Summary ---
Date of Service November 08, 2019 Admission HPI Per Admitting Provider The patient is a 74 years old male with past medical history of end-stage renal disease, peripheral vascular disease with amputation of the TKA on the right, COPD, atrial fibrillation, abdominal aortic aneurysm, GERD, coronary artery disease, AV fistula, history of CABG, history of CVA, hyperlipidemia, hypothyroid, diastolic CHF who presents to the emergency room with a complaint of a near fall that occurred this morning. As per patient explanation which was very detailed patient never fell, and in fact when he was getting down from the car trying to reach his dialysis clinic, he felt hypotensive and dizzy which resulted that he could not hold himself for the handle of the car and that is how he slighted down. He did not hurt any part of his body. Patient denies that he lost consciousness at any point, he clearly states that he was dizzy because his blood pressure just could not hold and this happens quite often in the past several years. Patient's dialysis today was canceled because of his hypotension. The patient sister who is RN and who takes care of him and his mother states that patient blood pressure dropped 30 points when he was going from sitting to standing position. Patient sees tool maintenance worker Dr. Alcantar. Patient reports that he bent his right ankle and felt minimal pain there which later on resolved. Labs are reviewed: WBC is 13.51, hemoglobin 12.2, hematocrit 36.6, platelets 167, sodium 138, potassium 4.7, chloride 101, anion gap 14, BUN 43, creatinine 9.53, AST 31, ALT 43, troponin 0.048, 0.045, 0.047, BNP 11,462, Albumin 3.4, and TSH 3.4, patient is positive for MRSA. Chest x-ray show mild components of congestive failure failure. Right ankle x-rays shows no fracture or dislocation within the right ankle. Decision was made to admit patient to PCU on telemetry for dizziness, end-stage renal disease with volume overload that needed to be dialyzed. Principal Diagnosis none Discharge Exam Constitutional well developed, well nourished and cooperative (on RA seen on dialysis); no acute distress Eyes EOM intact bilaterally ENMT Ears: no external ear abnormality Nose: no external nose abnormality Mouth: oral mucous membranes not dry Neck no nuchal rigidity Respiratory normal respiratory effort Auscultation: + diminished lung sounds (but clear on ant exam) Cardiovascular Rate/Rhythm: regular rate and regular rhythm (distant HS) Extremities: + AV fistula (t/b+); no edema (trace BL ankle edema) Gastrointestinal (Abdomen) Inspection/Auscultation: normal bowel sounds Percussion/Palpation: abdomen soft; abdomen nontender Musculoskeletal Extremities: strength 5/5 throughout Skin no rashes, warm and dry Psychiatric A+Ox3, euthymic affect Discharge Data Allergies Allergy/AdvReac Type Severity Reaction Status Date / Time gabapentin Allergy Unknown Unknown Verified 11/04/19 11:45 tramadol Allergy Unknown dizziness;a Verified 11/04/19 11:45 nxiety;sob oxycodone AdvReac Severe DELIRIUM Verified 11/04/19 11:45 Consultations 11/04/19 12:51 ED Decision to Admit Stat 11/04/19 13:57 ED Decision to Admit Stat 11/04/19 16:15 Consult Case Management - Discharge Planning Routine Consult Nephrology Stat Hospital Course (1) ESRD (end stage renal disease) on dialysis: ESRD on MWF HD via avf Had in hemodialysis on Thursday and Thursday. Hemodialysis planned for today restart midodrine 5 mg a start of treatment and mid to treatment if systolic is below 90. no heparin d/t fall hx mild anemia; no CATARINA indicated DVT ppx SCD-s and teds PT/OT s/p HD Full code (2) Shortness of breath: extra dialysis as above working at whittling down volume; multifactorial from copd; uses nocturnal 02 (3) Fall: d/c-ed to SNF for PT/OT (4) CHF (congestive heart failure): Continue home medicine: Amiodarone 200 mg p.o. every other day Aspirin 81 mg p.o. every morning Apidra well 75 mg p.o. every morning (5) Elevated troponin: Resolved Likely due to demand ischemia in conjunction with end-stage renal disease and poor clearance. Continue monitoring (6) Right ankle sprain: Issue resolved. X-rays did not show any fracture or swelling. (7) COPD (chronic obstructive pulmonary disease): Continue home medicine: Breo Ellipta 1 inhalation every morning or equivalent per pharmacy. Suppressive therapy with azithromycin 500 mg p.o. as directed Spiriva 1 capsule inhalation every morning (8) Orthostatic hypotension: Patient exhibits autonomic instability. Especially after hemodialysis he cannot control his blood pressure very well and he has issues with maintaining it. Continue monitoring blood pressure and adjusting body before standing up from sitting position. Disposition pending on PT/OT eval Total Time Total Time Spent Total Time Spent (In Minutes): over 30 min Discharge Plan Discharge Items Patient Disposition: Transfer [facility] Fac Reason For Visit: DIZZINESS,ORTHOSTATIC HYPOTENSION Discharge Diagnosis: DIZZINESS,ORTHOSTATIC HYPOTENSION Condition on Discharge: Good Health Concerns: ESRD Activity: Resume your previous activity Lifting: Gradually increase as tolerated Non-emergency contact: Primary Care Provider and Intermediate Card Tender Call non-emergency contact if: you have any medication questions, your symptoms worsen, your pain is not controlled, your pain is worsening, your pain is concerning for you and your temperature is above 101 Follow-up/Referrals: Pro,Emil Cam MD [Primary Care Provider] - Diet: Dialysis Renal Addtl Attending Provider Instructions: Please follow up with nephrology at your scheduled appointment. Continue hemodialysis as per Dr. Alcantar order. Pending Studies at Discharge: No Stand-Alone Forms: My [facility] Skilled Items Patient informed of condition?: Yes DNR: No Discharge Level of Care: Skilled Communicable Disease: No Discharge Prognosis: Stable Lines: None Urinary Catheter: No Medications and DC Order Prescriptions: Continued amiodarone 200 mg tablet 200 mg PO Q OTHER DAY Qty: 14 RF: 3 atorvastatin 40 mg tablet 40 mg PO HS Qty: 90 RF: 3 omeprazole 20 mg tablet,delayed release (DR/EC) 20 mg PO QAM Qty: 90 RF: 3 Lyrica 75 mg capsule 75 mg PO QAM Qty: 30 RF: 3 levothyroxine 88 mcg capsule 88 mcg PO DAILY Qty: 30 RF: 2 alprazolam 0.5 mg tablet 0.5 mg PO BID PRN (Reason: anxiety) Qty: 20 RF: 0 azithromycin 500 mg Tablet 500 mg PO DIRECTED PRN (Reason: PRIOR TO DENTAL VISITS) RF: 0 Spiriva with HandiHaler 18 mcg Capsule, W/Inhalation Device 1 cap INHALATION QAM RF: 0 clopidogrel 75 mg tablet 75 mg PO QAM RF: 0 famotidine 20 mg tablet 20 mg PO MOWEFR RF: 0 aspirin [Aspir-Low] 81 mg Tablet,Delayed Release (Dr/Ec) 81 mg PO QAM RF: 0 paroxetine HCl 20 mg Tablet 20 mg PO HS RF: 0 albuterol sulfate 90 mcg/actuation Hfa Aerosol Inhaler 2 puff INHALATION Q6H PRN (Reason: Shortness Of Breath) RF: 0 calcium acetate 667 mg Capsule 667 mg PO TIDM RF: 0 Breo Ellipta 200-25 mcg/dose Blister With Device 1 inh INHALATION QAM RF: 0 albuterol sulfate 2.5 mg /3 mL (0.083 %) solution for nebulization 2.5 mg INH Q6H PRN (Reason: cough/wheeze/shortness of breath) Qty: 180 RF: 5 docusate sodium 100 mg capsule 100 mg PO HS RF: 0 temazepam 15 mg capsule 30 mg PO HS PRN (Reason: Sleep) Qty: 60 RF: 0 Discharge Orders: Discharge Order (Routine); Ordered 11/08/19 Ordered By: Sharmila Oakes Admission Data Admit Date/Time: 11/04/19 14:32 Attending Provider: Sharmila Oakes Admit Provider: Sharmila Oakes Primary Care Provider: Emil Lazcano Other Providers: Sharmila Oakes ; Christina Landrum ; [facility] Other Interventions: Discharge Summary Assessment (RN) Last Done: 11/08/19 16:33 DC Date/Time DO NOT enter until pt leaves facility: 11/08/19 17:59
== END 2019-11-08 17:59 | DRG 291 ==
LOC: ED 10:49 → 2W 14:32

== ENCOUNTER 2020-05-01 20:45 | Inpatient (IN) ==
--- NOTE | 2020-05-01 21:52 | Emergency Department Note ---
Impression & Plan End stage renal disease on dialysis, Acute dyspnea ED Provider Note NAME: RAMA AYERS AGE: 74 SEX: M : 1945 ARRIVES VIA: Ambulance INFORMANT: Patient, the prehospital personnel as well as the patient's family member ED PROVIDER(S): Emil Chu DO CHIEF COMPLAINT: Shortness of breath HPI: The patient is a 74-year-old male who presented to the emergency department for an evaluation of shortness of breath. The patient has a history of chronic renal failure and receives dialysis. His last dialysis treatment was yesterday. He states that he did not have a full treatment of dialysis. Patient presented to the emergency department by ambulance after he has been having worsening shortness of breath throughout the day. He denies having any cough or fever. He denies having any increased swelling in his legs. The patient's sister does state that he has had similar episodes in the past when he did not have a full round of dialysis. The patient denies having any chest pain. He is not had any exposure to COVID-19 as far as he knows. He states his symptoms are improved after supplemental oxygen. ROS: See above HPI for pertinent positives & negatives. A total of 10 systems reviewed and were otherwise negative. PAST MEDICAL HISTORY: See Below PAST SURGICAL HISTORY: See Below FAMILY HISTORY: See Below SOCIAL HISTORY: See Below HOME MEDICATIONS: See Below ALLERGIES: See Below VITALS: See Below PHYSICAL EXAMINATION: GENERAL: The patient is awake and alert. He is somewhat anxious appearing but overall comfortable. EYES: The conjunctivae are clear. The pupils are round and reactive. EARS, NOSE, MOUTH AND THROAT: The nose is without any evidence of any deformity. NECK: The neck is nontender and supple. RESPIRATORY: Diminished breath sounds are noted throughout. There are faint rales in both upper lung quiros. There was conversational dyspnea as well as tachypnea noted. CARDIOVASCULAR: Irregular rhythm was noted to auscultation with ectopy to auscultation. There is no definite murmur. GASTROINTESTINAL: The abdomen is soft. Abdomen is nontender. MUSCULOSKELETAL/EXTREMITIES: There is no evidence of gross deformity full range of motion is noted in the hips and shoulders. SKIN: Skin was warm and dry. Trace pedal edema was noted bilaterally. Dialysis fistula was noted in the right upper extremity. There was a palpable thrill as well as a bruit to auscultation. NEUROLOGIC: Patient is awake alert and oriented x3. MEDICAL DECISION MAKING: The patient is a 74-year-old male who has a history of end-stage renal disease who presented to the emergency department for an evaluation of shortness of breath. The patient's history and physical exam appear to be consistent with pulmonary edema. He did have a short round of dialysis yesterday. The patient has signs of pulmonary edema on chest x-ray. I discussed the patient's laboratory and radiographic studies with him. He does have significant dyspnea upon any exertion. I discussed his case with the on-call [facility] hospitalist. They have agreed to evaluate the patient in the emergency department for further management and disposition. Triage Nursing notes reviewed. Prior medical records reviewed Vital Signs: reviewed and remarkable for tachypnea and elevated blood pressure. Differential diagnosis: Reactive airway disease, pneumonia, pneumothorax, COPD, CHF, infections, cardiac ischemia, pulmonary embolism, musculoskeletal, gastrointestinal, as well as other pathologies. ER treatment provided: See below Diagnostics interpreted by me: ECG: EKG was obtained in the emergency department. My interpretation is sinus rhythm at 76 bpm. First-degree AV block was noted. Frequent PVCs were noted. There was no acute ST segment abnormalities noted. This was compared to a tracing from November. No significant changes were noted. Cardiac Monitoring: An order was placed for continuous cardiac monitoring. The monitor shows a rate of 85 with sinus rhythm. Laboratory studies: As stated above and show below. Imaging studies: See below Consultation(s): 2310: Dr. Orr was notified about the patient. He will evaluate the patient in the emergency department for further management and disposition. Past Med/Surg History Medical History AAA (abdominal aortic aneurysm) (Resolved) Acute osteomyelitis of foot (Acute) Anemia (Inactive) Anemia, chronic renal failure (Chronic) Anxiety (Chronic) Anxiety (Chronic) Aspiration pneumonia Atrial fibrillation (Resolved) Atrial fibrillation (Chronic) PAROXYSMAL- ON ASA PER RECORDS AV fistula (Chronic) right arm CAD (coronary artery disease) (Chronic) CAD (coronary artery disease) (Chronic) S/P CABG X2 (DURING MVR) 2010 Chronic back pain (Chronic) Chronic GERD (Chronic) COPD (chronic obstructive pulmonary disease) (Chronic) COPD (chronic obstructive pulmonary disease) CVA (cerebral vascular accident) (Chronic) "NO RESIDUAL EFFECTS" PER RECORDS Delirium (Resolved) Depression (Chronic) Dermatitis (Acute) Diarrhea (Chronic) Diastolic CHF (Chronic) DVT (deep venous thrombosis) (Acute) Elevated troponin (Resolved) Encounter for central line placement (Acute) ESRD (end stage renal disease) ESRD (end stage renal disease) on dialysis ESRD (end stage renal disease) on dialysis (Chronic) Gangrene (Resolved) Gangrene of toe (Acute) right toes REASON FOR PROCEDURE Generalized weakness (Acute) GERD (gastroesophageal reflux disease) (Chronic) Gram negative sepsis (Acute) H/O: gout (Chronic) Hyperkalemia (Acute) Hyperlipidemia (Chronic) Hypertension (Acute) Hypomagnesemia (Acute) Hypotension (Chronic) Hypothyroid (Chronic) Hypothyroidism (Inactive) Hypothyroidism (Chronic) Ileostomy in place (Chronic) Ischemic colitis (Resolved) Memory loss or impairment (Acute) Myocardial infarct, old (Chronic) 2010 Necrosis of colon Non-healing wound (Chronic) Orthostatic hypotension (Acute) Peripheral vascular disease (Chronic) Peripheral vascular disease (Chronic) Proctocolitis (Chronic) Shortness of breath Valvular disease (Chronic) S/P MVR (2011); ?AVR PER RECORDS Vitamin D deficiency (Acute) Surgical History Difficult intubation (Chronic) B/L Anteriogram, Right femoral to anterior tibial cadaver vein bypass= 08/06/18= Grade view 4, MAC 3 --> Glidescope #3, ETT 7.5 at [facility] H/O abdominal aortic aneurysm repair (Resolved) 2011 H/O geaur-rrmty-eorlxwf bypass (Resolved) 2013 H/O mitral valve repair (Resolved) 2011; ?AVR PER RECORDS Hx of CABG (Acute) S/P CABG X2 (DURING MVR) 2010 S/P AAA repair (Resolved) S/P ablation of atrial fibrillation (Resolved) S/P CABG x 2 (Resolved) S/P cholecystectomy (Resolved) S/P cholecystectomy (Resolved) S/P femoral-popliteal bypass surgery (Resolved) S/P MVR (mitral valve repair) (Resolved) Family History Mother Essential hypertension Father , age 76 Myocardial infarction Denies family history of Colon cancer Ovarian cancer Prostate cancer Breast cancer Social History Preferred Language: Nicaraguan Communication Ability: Effective Visual Impairment: No Limitations 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 Required: No Beliefs That Will Affect Care: None marital status: / marital status details: 1 daughter Current Living Situation: Family Current Living Situation Comment: with sister 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 Feels Safe at Home: Yes Smoking Status: Former smoker Tobacco Type: cigarettes ; Second Hand Exposure: No ; Hx Alcohol Use: No Hx Substance Use: No Allergies Allergies Allergy/AdvReac Type Severity Reaction Status Date / Time gabapentin Allergy Unknown Unknown Verified 05/01/20 21:46 tramadol Allergy Unknown dizziness;a Verified 05/01/20 21:46 nxiety;sob oxycodone AdvReac Severe DELIRIUM Verified 05/01/20 21:46 Home Meds Home Medications Medication Instructions Recorded Confirmed albuterol sulfate 2 puff INHALATION Q6H PRN 08/23/18 05/01/20 calcium acetate(phosphat bind) 667 mg PO TIDM 08/23/18 05/01/20 azithromycin 500 mg PO DIRECTED PRN 08/30/18 05/01/20 docusate sodium 100 mg capsule 100 mg PO HS 05/31/19 05/01/20 famotidine 20 mg PO MOWEFR 10/17/19 05/01/20 midodrine 5 mg PO TID 11/21/19 05/01/20 clopidogrel 75 mg PO DAILY 12/24/19 05/01/20 B complex with C 20-folic acid 1 mg PO DAILY 05/01/20 05/01/20 [Triphrocaps] aspirin [Aspirin Low Dose] 81 mg PO DAILY 05/01/20 05/01/20 Previous Rx's Medication Instructions Recorded albuterol sulfate 2.5 mg INH Q6H PRN #180 ml 05/26/19 alprazolam 0.5 mg tablet 0.5 mg PO BID PRN #20 tab 05/31/19 atorvastatin 40 mg tablet 40 mg PO HS #90 tab 10/05/19 omeprazole 20 mg tablet,delayed 20 mg PO QAM #90 tab 10/05/19 release acetaminophen 325 mg capsule 650 mg PO BID #30 cap 11/22/19 darbepoetin lilly in polysorbat 40 40 mcg SUBCUT WEEKLY #4 ml 11/22/19 mcg/mL in polysorbate injection polyethylene glycol 3350 17 17 gm PO DAILY PRN #119 gm 11/22/19 gram/dose oral powder sennosides 8.6 mg-docusate sodium 1 tabcap PO DAILY PRN #30 tab 11/22/19 50 mg tablet paroxetine HCl 20 mg tablet 20 mg PO HS #90 tab 12/12/19 levothyroxine 88 mcg capsule 88 mcg PO DAILY #30 cap 01/10/20 pregabalin 75 mg capsule 75 mg PO QAM #30 cap 01/13/20 temazepam 15 mg capsule 30 mg PO HS PRN #60 cap 01/20/20 amiodarone 200 mg tablet 200 mg PO Q OTHER DAY #14 tab 02/16/20 fluticasone furoate 200 1 inh INHALATION QAM #28 ea 03/15/20 mcg-vilanterol 25 mcg/dose inhalation powder tiotropium bromide 18 mcg capsule 1 cap INHALATION QAM #30 puffs 03/21/20 with inhalation device Results & Data (ED) Vital Signs Vital Signs - 24 hr 05/01/20 20:52 05/01/20 21:45 05/01/20 22:30 Temperature 36.5 C Temperature Source Oral Pulse Rate 74 Pulse Rate [Left Finger] 70 63 Respiratory Rate 22 20 25 H Respiratory Effort / Characteristics Short of Breath SOB on Exertion Respiratory Depth Normal Blood Pressure 149/85 H Blood Pressure [Left Arm] 148/91 H 140/75 Blood Pressure Mean 106 Blood Pressure Mean [Left Arm] 110 96 Pulse Oximetry 100 94 96 Oxygen Delivery Method Nasal Cannula Room Air Oxygen Flow Rate 4 Sepsis Recent Fever Within 48 Hours No Sepsis New/Unexplained Change in Mental Status No Sepsis Action Taken by Nursing No Action Required Home Medications Current Medication List: was personally reviewed by me Laboratory Data Attestation: I reviewed the patient's lab results. Result diagrams: 05/01/20 21:52 05/01/20 21:52 Lab Results 05/01/20 05/01/20 05/01/20 Range/Units 21:52 21:52 21:52 WBC 8.99 (4.8-10.8) K/uL RBC 3.42 L (4.7-6.1) M/uL Hgb 11.7 L (14.0-18.0) g/dL Hct 35.6 L (42-52) % MCV 104.1 H (80-100) fL MCH 34.2 H (25-34) pg MCHC 32.9 (32-36) g/dL RDW Std Deviation 58.9 H (36.4-46.3) fL RDW Coeff of Jolanta 15.4 H (11.5-14.5) % Plt Count 147 (130-400) K/uL MPV 9.2 (7.4-10.4) fL Immature Gran % (Auto) 0.4 % Neut % (Auto) 67.3 % Lymph % (Auto) 16.1 % [place] % (Auto) 11.5 % Eos % (Auto) 4.1 % Baso % (Auto) 0.6 % Neut # (Auto) 6.05 (1.4-6.5) K/uL Lymph # (Auto) 1.45 (1.2-3.4) K/uL [place] # (Auto) 1.03 H (0.11-0.59) K/uL Eos # (Auto) 0.37 (0-0.5) K/uL Baso # (Auto) 0.05 (0-0.2) K/uL Immature Gran # (Auto) 0.04 H (0.00-0.02) K/uL PT (9.0-12.0) Seconds INR (0.9-1.1) APTT (21.0-31.0) Seconds PTT Ratio VBG pH 7.37 (7.36-7.41) VBG pCO2 53 H (38-50) mmHg VBG pO2 23 mmHg VBG HCO3 30 mmol/L VBG O2 Saturation < 60.0 % VBG Base Excess 3.9 mEq/L Barometric Pressure 733.1 mm/Hg Sodium 136 (136-145) mmol/L Potassium 4.8 (3.5-5.1) mmol/L Chloride 99 (98-107) mmol/L Carbon Dioxide 30 (21-32) mmol/L Anion Gap 7.0 (3-11) BUN 45 H (7-18) mg/dl Creatinine 11.40 H* (0.6-1.4) mg/dl Est Cr Clr Drug Dosing 7.6 ml/min Est GFR ( Amer) 4.5 Est GFR (Non-Af Amer) 3.9 BUN/Creatinine Ratio 3.9 L (10-20) Glucose 87 (70-99) mg/dl Calcium 9.7 (8.5-10.1) mg/dl Magnesium 2.0 (1.8-2.4) mg/dl Total Bilirubin 0.4 (0.2-1) mg/dl AST 13 L (15-37) U/L ALT 31 (12-78) U/L Alkaline Phosphatase 102 (45-117) U/L Troponin I 0.046 H* (0-0.045) ng/ml NT-Pro-B Natriuret Pep 76172 H (0-900) pg/ml Total Protein 7.1 (6.4-8.2) gm/dl Albumin 3.2 L (3.4-5.0) gm/dl Globulin 3.9 (2.5-4.0) gm/dl Albumin/Globulin Ratio 0.8 L (0.9-2) 05/01/20 Range/Units 21:52 WBC (4.8-10.8) K/uL RBC (4.7-6.1) M/uL Hgb (14.0-18.0) g/dL Hct (42-52) % MCV (80-100) fL MCH (25-34) pg MCHC (32-36) g/dL RDW Std Deviation (36.4-46.3) fL RDW Coeff of Jolanta (11.5-14.5) % Plt Count (130-400) K/uL MPV (7.4-10.4) fL Immature Gran % (Auto) % Neut % (Auto) % Lymph % (Auto) % [place] % (Auto) % Eos % (Auto) % Baso % (Auto) % Neut # (Auto) (1.4-6.5) K/uL Lymph # (Auto) (1.2-3.4) K/uL [place] # (Auto) (0.11-0.59) K/uL Eos # (Auto) (0-0.5) K/uL Baso # (Auto) (0-0.2) K/uL Immature Gran # (Auto) (0.00-0.02) K/uL PT 10.9 (9.0-12.0) Seconds INR 1.0 (0.9-1.1) APTT 26.6 (21.0-31.0) Seconds PTT Ratio 1.0 VBG pH (7.36-7.41) VBG pCO2 (38-50) mmHg VBG pO2 mmHg VBG HCO3 mmol/L VBG O2 Saturation % VBG Base Excess mEq/L Barometric Pressure mm/Hg Sodium (136-145) mmol/L Potassium (3.5-5.1) mmol/L Chloride (98-107) mmol/L Carbon Dioxide (21-32) mmol/L Anion Gap (3-11) BUN (7-18) mg/dl Creatinine (0.6-1.4) mg/dl Est Cr Clr Drug Dosing ml/min Est GFR ( Amer) Est GFR (Non-Af Amer) BUN/Creatinine Ratio (10-20) Glucose (70-99) mg/dl Calcium (8.5-10.1) mg/dl Magnesium (1.8-2.4) mg/dl Total Bilirubin (0.2-1) mg/dl AST (15-37) U/L ALT (12-78) U/L Alkaline Phosphatase (45-117) U/L Troponin I (0-0.045) ng/ml NT-Pro-B Natriuret Pep (0-900) pg/ml Total Protein (6.4-8.2) gm/dl Albumin (3.4-5.0) gm/dl Globulin (2.5-4.0) gm/dl Albumin/Globulin Ratio (0.9-2) Imaging Data Attestation: I personally reviewed and interpreted this imaging study as follows: My Impression: Portable chest x-ray was obtained in the emergency department. My interpretation is cardiomegaly with bilateral pleural effusions. There is a subpulmonic effusion on the left. There is signs of pulmonary venous congestion on today's x-ray. The pulmonary vascular congestion appears new compared to the previous EKG on 12/24/2019. Blood Pressure Blood Pressure Findings: Elevated blood pressure Blood Pressure Disposition: further management by hospitalist Discharge Plan Visit Data Chief Complaint: Shortness of Breath/Dyspnea Stated Complaint: SOB ED Provider: Emil Chu ED Midlevel Provider: Marc Brunner Discharge Problem: End stage renal disease on dialysis, Acute dyspnea Patient Disposition: Being Evaluated by Hospitalist Condition: Good Forms Stand Alone Forms: My [facility] Prescriptions Prescriptions: No Action atorvastatin 40 mg tablet 40 mg PO HS Qty: 90 RF: 3 omeprazole 20 mg tablet,delayed release (DR/EC) 20 mg PO QAM Qty: 90 RF: 3 acetaminophen 325 mg capsule 650 mg PO BID Qty: 30 RF: 0 Aranesp (in polysorbate) 40 mcg/mL solution 40 mcg subcut WEEKLY Qty: 4 RF: 0 sennosides-docusate sodium [Senokot-S] 8.6-50 mg tablet 1 tabcap PO DAILY PRN (Reason: constipation) Qty: 30 RF: 0 polyethylene glycol 3350 [Miralax] 17 gram/dose powder 17 gm PO DAILY PRN (Reason: constipation) Qty: 119 RF: 0 paroxetine HCl 20 mg tablet 20 mg PO HS Qty: 90 RF: 3 levothyroxine 88 mcg capsule 88 mcg PO DAILY Qty: 30 RF: 2 Lyrica 75 mg capsule 75 mg PO QAM Qty: 30 RF: 3 temazepam 15 mg capsule 30 mg PO HS PRN (Reason: Sleep) Qty: 60 RF: 0 amiodarone 200 mg tablet 200 mg PO Q OTHER DAY Qty: 14 RF: 3 Breo Ellipta 200-25 mcg/dose blister with device 1 inh INHALATION QAM Qty: 28 RF: 3 Spiriva with HandiHaler 18 mcg capsule, w/inhalation device 1 cap INHALATION QAM Qty: 30 RF: 4 alprazolam 0.5 mg tablet 0.5 mg PO BID PRN (Reason: anxiety) Qty: 20 RF: 0 azithromycin 500 mg Tablet 500 mg PO DIRECTED PRN (Reason: PRIOR TO DENTAL VISITS) RF: 0 famotidine 20 mg tablet 20 mg PO MOWEFR RF: 0 midodrine 5 mg tablet 5 mg PO TID RF: 0 aspirin [Aspirin Low Dose] 81 mg Tablet,Delayed Release (Dr/Ec) 81 mg PO DAILY RF: 0 Triphrocaps 1 mg capsule 1 mg PO DAILY RF: 0 albuterol sulfate 90 mcg/actuation Hfa Aerosol Inhaler 2 puff INHALATION Q6H PRN (Reason: Shortness Of Breath) RF: 0 calcium acetate(phosphat bind) 667 mg Capsule 667 mg PO TIDM RF: 0 albuterol sulfate 2.5 mg /3 mL (0.083 %) solution for nebulization 2.5 mg INH Q6H PRN (Reason: cough/wheeze/shortness of breath) Qty: 180 RF: 5 docusate sodium 100 mg capsule 100 mg PO HS RF: 0 clopidogrel 75 mg tablet 75 mg PO DAILY RF: 0 Referrals Referrals: Emil Lazcano MD [Primary Care Provider] -
[2020-05-01 22:03] LABS: Basophils # (auto) 0.05 K/uL (0-0.2); Basophils % (auto) 0.6 %; Eosinophils # (auto) 0.37 K/uL (0-0.5); Eosinophils % (auto) 4.1 %; Hematocrit (blood only) 35.6 % (42-52); Hemoglobin 11.7 g/dL (14.0-18.0); Immature Granulocytes # (auto) 0.04 K/uL (0.00-0.02); Immature Granulocytes % (auto) 0.4 %; Lymphocytes # (auto) 1.45 K/uL (1.2-3.4); Lymphocytes % (auto) 16.1 %; Mean Corpuscular Hemoglobin 34.2 pg (25-34); Mean Corpuscular Hgb Conc 32.9 g/dL (32-36); Mean Corpuscular Volume 104.1 fL (80-100); Mean Platelet Volume 9.2 fL (7.4-10.4); Monocytes # (auto) 1.03 K/uL (0.11-0.59); Monocytes % (auto) 11.5 %; Neutrophils # (auto) 6.05 K/uL (1.4-6.5); Neutrophils % (auto) 67.3 %; Platelet Count 147 K/uL (130-400); RDW Coefficient of Variation 15.4 % (11.5-14.5); RDW Standard Deviation 58.9 fL (36.4-46.3); Red Blood Count 3.42 M/uL (4.7-6.1); White Blood Count 8.99 K/uL (4.8-10.8)
[2020-05-01 22:04] LABS: Base Excess VBG 3.9 mEq/L; HCO3 VBG 30 mmol/L; PCO2 VBG 53 mmHg (38-50); PO2 VBG 23 mmHg; pH VBG 7.37 (7.36-7.41)
[2020-05-01 22:07] LABS: Oxygen Saturation VBG < 60.0 %
[2020-05-01 22:13] LABS: Partial Thromboplastin Time 26.6 Seconds (21.0-31.0); Prothrombin Time 10.9 Seconds (9.0-12.0)
[2020-05-01 22:47] LABS: Albumin Globulin Ratio 0.8 (0.9-2); Albumin Level 3.2 gm/dl (3.4-5.0); BUN Creatinine Ratio 3.9 (10-20); Bilirubin,Total 0.4 mg/dl (0.2-1); Calcium 9.7 mg/dl (8.5-10.1); Creatinine Clr Calc Pharmacy 7.6 ml/min; Est GFR (African American) 4.5; Est GFR (Non-African American) 3.9; Globulin 3.9 gm/dl (2.5-4.0); Potassium 4.8 mmol/L (3.5-5.1); Total Protein 7.1 gm/dl (6.4-8.2); Troponin I 0.046 ng/ml (0-0.045)
[2020-05-02] MEDS ORDERED: TEMAZEPAM 15 MG CAPSULE PO PRN (01:11)
[2020-05-02] MEDS ORDERED: DOCUSATE SODIUM/SENNA 50/8.6MG TAB PO PRN (01:11)
[2020-05-02] MEDS ORDERED: ALPRAZolam 0.5 MG TABLET PO PRN (01:11)
[2020-05-02] MEDS ORDERED: ALBUTEROL HFA 8 GM INHALER INH PRN (01:11)
[2020-05-02] MEDS ORDERED: ALBUTEROL 0.083% NEBU SOLN 3 ML VIAL INH PRN (01:11)
[2020-05-02] MEDS ORDERED: POLYETHYLENE (MIRALAX) 17 GM PACK PO PRN (01:11)
--- NOTE | 2020-05-02 01:13 | History & Physical Report ---
Date of Service May 02, 2020 Assessment & Plan (1) End stage renal disease on dialysis: Anders Perdue is a 74 year old man with a history of vascular disease with CVA, AK, renal damage, PAD, and ischemic bowel now with ileostomy who is here today for fluid overload Hypoxemic respiratory failure Secondary to fluid overload CXR appears to show pulmonary edema, patient saturating well on 4L at present Patient unable to finish dialysis due to ileostomy accident will consult nephrology for dialysis tomorrow In meantime will support with supplemental O2 and monitor electrolytes ESRD on dialysis Dialysis tomorrow Normally on MWF Likely cause of his SOB Will continue his home supplements Elevated troponin Chronic, likely secondary to decreased renal clearance Will trend to make sure not going up Atrial Fibrillation Not on anticoagulation currently on amiodarone on a rhythm control strategy SInus rhythm at present Anemia Likely secondary to renal failure Continuing EPO Hypothyroidism Continuing home levothyroxine CAD, PAD, history of CVA, ISchemic bowel Continuing patient's atorvastatin, continuing Dual antiplatelet therapy COPD Continuing home ALbuterol and flovent not on any home O2 not a current smoker Depression continuing home paroxetine. DVT ppx: DVT's MARJORIE stockings F/E/N: FLuid restricted dialysis diet Dispo: PCU telemetry for closer monitoring until dialysis can be arranged for tomorrow Full Code (2) Acute dyspnea: (3) DVT prophylaxis: (4) Ileostomy in place: (5) Hypertension: (6) Anemia, chronic renal failure: (7) Necrosis of colon: (8) Ischemic colitis: History of Present Illness Chief Complaint: Shortness of breath Primary Care Provider: Emil Lazcano MD Anders Perdue is a 74 year old man with a past medical history significant for CHF, End stage Renal Failure on dialysis, atrial fibrillation not on anticoagulation, CAD s/p AK, CVA with no deficits, PAD with toe amputation of right foot, HLD, Hypothyroidism who presents today with fluid overload. Patient is on dialysis three days a week under direction of ena Alcantar of [facility] nephrology, he went to dialysis on Thursday and was only able to complete a partial session of dialysis because his ileostomy bag burst. He began to feel short of breath later that day and has gotten progressively more short of breath. On thorough review of systems the only new symptoms he enodrses are shortness of breath and leg swelling. He denies cough fever, chills, chest pain, abdominal pain, nausea, vomiting, diarrhea, loss of taste or smell, sick contacts. He has felt this way when he was fluid overloaded in the past. On arrival to ED patient was found to be dyspneic and was placed on four L of O2 which improved his symptoms. Labwork was notable for anemia (appears to be stable and chronic on EPO), electrolytes were all WNL, creatinine of 11.4, elevated [place] .046, [place] [address]. Patient's troponin has been elevated at previous several appearances here as well. Here with his sister who is helpful in providing history as he tends to downplay his symptoms. They live together at home, he denies smoking drinking, drug use. Allergies Allergy/AdvReac Type Severity Reaction Status Date / Time oxycodone AdvReac Severe DELIRIUM Verified 05/01/20 21:46 gabapentin AdvReac Unknown Nausea Verified 05/02/20 01:21 tramadol AdvReac Unknown dizziness;a Verified 05/02/20 01:21 nxiety;sob Home Medications Home Medications Medication Instructions Recorded Confirmed Type albuterol sulfate 2 puff INHALATION Q6H PRN 08/23/18 05/01/20 History calcium acetate(phosphat bind) 667 mg PO TIDM 08/23/18 05/01/20 History azithromycin 500 mg PO DIRECTED PRN 08/30/18 05/01/20 History albuterol sulfate 2.5 mg INH Q6H PRN #180 ml 05/26/19 05/01/20 Rx alprazolam 0.5 mg tablet 0.5 mg PO BID PRN #20 tab 05/31/19 05/01/20 Rx docusate sodium 100 mg capsule 100 mg PO HS 05/31/19 05/01/20 History atorvastatin 40 mg tablet 40 mg PO HS #90 tab 10/05/19 05/01/20 Rx omeprazole 20 mg tablet,delayed 20 mg PO QAM #90 tab 10/05/19 05/01/20 Rx release famotidine 20 mg PO MOWEFR 10/17/19 05/01/20 History midodrine 5 mg PO TID 11/21/19 05/01/20 History acetaminophen 325 mg capsule 650 mg PO BID #30 cap 11/22/19 05/01/20 Rx darbepoetin lilly in polysorbat 40 40 mcg SUBCUT WEEKLY #4 ml 11/22/19 05/01/20 Rx mcg/mL in polysorbate injection polyethylene glycol 3350 17 17 gm PO DAILY PRN #119 gm 11/22/19 05/01/20 Rx gram/dose oral powder sennosides 8.6 mg-docusate sodium 1 tabcap PO DAILY PRN #30 tab 11/22/19 05/01/20 Rx 50 mg tablet paroxetine HCl 20 mg tablet 20 mg PO HS #90 tab 12/12/19 05/01/20 Rx clopidogrel 75 mg PO DAILY 12/24/19 05/01/20 History levothyroxine 88 mcg capsule 88 mcg PO DAILY #30 cap 01/10/20 05/01/20 Rx pregabalin 75 mg capsule 75 mg PO QAM #30 cap 01/13/20 05/01/20 Rx temazepam 15 mg capsule 30 mg PO HS PRN #60 cap 01/20/20 05/01/20 Rx amiodarone 200 mg tablet 200 mg PO Q OTHER DAY #14 tab 02/16/20 05/01/20 Rx fluticasone furoate 200 1 inh INHALATION QAM #28 ea 03/15/20 05/01/20 Rx mcg-vilanterol 25 mcg/dose inhalation powder tiotropium bromide 18 mcg capsule 1 cap INHALATION QAM #30 puffs 03/21/20 05/01/20 Rx with inhalation device Triphrocaps 1 mg PO DAILY 05/01/20 05/01/20 History aspirin [Aspirin Low Dose] 81 mg PO DAILY 05/01/20 05/01/20 History Past Med/Surg History Medical History AAA (abdominal aortic aneurysm) (Resolved) Acute osteomyelitis of foot (Acute) Anemia (Inactive) Anemia, chronic renal failure (Chronic) Anxiety (Chronic) Anxiety (Chronic) Aspiration pneumonia Atrial fibrillation (Resolved) Atrial fibrillation (Chronic) PAROXYSMAL- ON ASA PER RECORDS AV fistula (Chronic) right arm CAD (coronary artery disease) (Chronic) CAD (coronary artery disease) (Chronic) S/P CABG X2 (DURING MVR) 2010 Chronic back pain (Chronic) Chronic GERD (Chronic) COPD (chronic obstructive pulmonary disease) (Chronic) COPD (chronic obstructive pulmonary disease) CVA (cerebral vascular accident) (Chronic) "NO RESIDUAL EFFECTS" PER RECORDS Delirium (Resolved) Depression (Chronic) Dermatitis (Acute) Diarrhea (Chronic) Diastolic CHF (Chronic) DVT (deep venous thrombosis) (Acute) Elevated troponin (Resolved) Encounter for central line placement (Acute) ESRD (end stage renal disease) ESRD (end stage renal disease) on dialysis ESRD (end stage renal disease) on dialysis (Chronic) Gangrene (Resolved) Gangrene of toe (Acute) right toes REASON FOR PROCEDURE Generalized weakness (Acute) GERD (gastroesophageal reflux disease) (Chronic) Gram negative sepsis (Acute) H/O: gout (Chronic) Hyperkalemia (Acute) Hyperlipidemia (Chronic) Hypertension (Acute) Hypomagnesemia (Acute) Hypotension (Chronic) Hypothyroid (Chronic) Hypothyroidism (Inactive) Hypothyroidism (Chronic) Ileostomy in place (Chronic) Ischemic colitis (Resolved) Memory loss or impairment (Acute) Myocardial infarct, old (Chronic) 2010 Necrosis of colon Non-healing wound (Chronic) Orthostatic hypotension (Acute) Peripheral vascular disease (Chronic) Peripheral vascular disease (Chronic) Proctocolitis (Chronic) Shortness of breath Valvular disease (Chronic) S/P MVR (2011); ?AVR PER RECORDS Vitamin D deficiency (Acute) Surgical History Difficult intubation (Chronic) B/L Anteriogram, Right femoral to anterior tibial cadaver vein bypass= 08/06/18= Grade view 4, MAC 3 --> Glidescope #3, ETT 7.5 at [facility] H/O abdominal aortic aneurysm repair (Resolved) 2011 H/O mqcaw-[id number] bypass (Resolved) 2012 H/O mitral valve repair (Resolved) 2010; ?AVR PER RECORDS Hx of CABG (Acute) S/P CABG X2 (DURING MVR) 2010 S/P AAA repair (Resolved) S/P ablation of atrial fibrillation (Resolved) S/P CABG x 2 (Resolved) S/P cholecystectomy (Resolved) S/P cholecystectomy (Resolved) S/P femoral-popliteal bypass surgery (Resolved) S/P MVR (mitral valve repair) (Resolved) Family History Mother Essential hypertension Father , age 76 Myocardial infarction Denies family history of Colon cancer Ovarian cancer Prostate cancer Breast cancer Social History Preferred Language: French Communication Ability: Effective Visual Impairment: No Limitations Hot Man Required: No Beliefs That Will Affect Care: None marital status: / marital status details: 1 daughter Current Living Situation: Family Current Living Situation Comment: sister 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 Feels Safe at Home: Yes Smoking Status: Former smoker Tobacco Type: cigarettes ; Second Hand Exposure: No ; Hx Alcohol Use: No Hx Substance Use: No Review of Systems Review of Systems: All systems reviewed & are unremarkable except as noted in HPI & below Physical Exam Constitutional: well nourished, + ill appearing and + obese; no acute distress and no altered mental status Eyes: PERRL, conjunctivae normal, anicteric sclerae ENMT: external ear and nose normal, oropharynx normal Respiratory: + uses accessory muscles (mild accessory muscle use); no respiratory distress and no cough Auscultation: + crackles (Throughout bilateral lung quiros) Cardiovascular: Rate/Rhythm: regular rate and regular rhythm distant heart sounds, possible diastolic murmur best appreciated at mitral area Gastrointestinal (Abdomen): normal bowel sounds, soft, nontender, no hepatosplenomegaly Skin: Swollen legs, dusky appearance of bilateral lower limbs, multiple sores at various stages of healing in the skin, large boots on feet for recent toe amputation, no acute cellulitis or infection appreciated. Results & Data Results & Data ([facility]) Vital Signs (Past 12 Hours) Vital Signs Temp Pulse Pulse Resp BP BP Pulse Ox 05/01/20 23:00 66 23 169/80 H 100 05/01/20 22:30 63 25 H 140/75 96 05/01/20 21:45 70 20 148/91 H 94 05/01/20 20:52 36.5 C 74 22 149/85 H 100 Code Status & VTE Plan VTE Prophylaxis Plan VTE Prophylaxis will be ordered: Yes Supervising Physician Co-Signing Physician Notes Attending addendum: I have physically seen this patient, have supervised the medical residents activities, and agree with the H&P unless as otherwise noted. Assessment and Plan: Acute respiratory failure with hypoxia- Fluid overload associated with incomplete round of dialysis the previous day. Presently on nasal cannula 4 L. And comfortable. Unable to diurese ESRD on HD- Incomplete dialysis the previous day. Consult nephrology for earlier dialysis. Elevated troponin/atrial fibrillation- 0.046 upon admission, with range 0.034-0.050. We will admit to telemetry, and trend troponins, but not likely significant. Continue amiodarone. Hyperlipidemia- Continue atorvastatin. Check a fasting lipid panel Hypothyroidism- Continue current dose of levothyroxine. COPD- continue current regimen. As noted above, currently requiring 4 L of oxygen due to pulmonary edema. Remainder of orders and notations as noted. Resident Activity Tracking Resident Involvement: Resident Care Provided Care Provided: Adult [facility] Medicine (1) Anemia, chronic renal failure Chronic kidney disease stage: unspecified stage Qualified Code(s): N18.9 - Chronic kidney disease, unspecified; D63.1 - Anemia in chronic kidney disease
[2020-05-02] MEDS: MIDODRINE HCL 2.5 MG TAB PO SCH ×3 (06:33→22:03)
[2020-05-02] MEDS: LEVOTHYROXINE SODIUM 88 MCG TABLET PO SCH (06:33)
--- NOTE | 2020-05-02 07:21 | XRay Report ---
XR chest 1V portable CLINICAL HISTORY: Dyspnea COMPARISON STUDY: Chest radiograph December 24, 2019. FINDINGS: There is no pneumothorax. There are trace bilateral pleural effusions. Cardiomegaly is note d. There are median sternotomy wires and a prosthetic mitral valve. There is no consolidation to sugg est pneumonia. IMPRESSION: No change in appearance of the chest. Trace bilateral pleural effusions. Cardiomegaly wi thout evidence for pulmonary edema. ACT 112: Negative or not required by law. Electronically signed by: Frank Lombardo M.D. 05/02/2020 7:20 AM
[2020-05-02] MEDS: UMECLIDINIUM BROMIDE 62.5MCG/BLISTER 7 PUFFS/INHALER INH SCH (08:27)
[2020-05-02] MEDS: ASPIRIN 81 MG ECTAB PO SCH (08:28)
[2020-05-02] MEDS: PREGABALIN 75 MG CAP PO SCH ×2 (08:28→22:01)
[2020-05-02] MEDS: NEPHROCAPS PO SCH (08:28)
[2020-05-02] MEDS: CLOPIDOGREL BISULFATE 75 MG TAB PO SCH (08:28)
[2020-05-02] MEDS: FLUTICASONE/VILANTEROL 200/25MCG 14 PUFFS/INHALER INH SCH (08:28)
[2020-05-02] MEDS: CALCIUM ACETATE 667 MG CAP/TAB PO SCH ×3 (08:28→22:04)
[2020-05-02] MEDS: ACETAMINOPHEN 325 MG TAB PO SCH ×2 (08:28→22:03)
[2020-05-02] MEDS: HEPARIN SOD 5,000 UNIT/0.5 ML VIAL SQ SCH ×2 (08:29→22:04)
[2020-05-02] MEDS: PANTOprazole 40 MG TAB PO SCH (08:29)
[2020-05-02] MEDS ORDERED: FAMOTIDINE 20 MG TAB PO SCH (09:00)
--- NOTE | 2020-05-02 09:17 | Hospitalist Progress Note ---
Date of Service May 02, 2020 Assessment & Plan (1) Acute pulmonary edema: Acute respiratory failure with hypoxia secondary to acute exacerbation of diastolic heart failure from incomplete dialysis session 4L oxygen nasal canula at present with titration Patient unable to finish dialysis due to ileostomy accident, nephrology to manage inpatient dialysis In meantime will support with supplemental O2 and monitor electrolytes Patient's volume load is also reinforced by BNP of 16,000 Will be hopefully dialysis will help improve his subjective complaints (2) End stage renal disease on dialysis: Anders Perdue is a 74 year old man with a history of vascular disease with CVA, [place], renal damage, PAD, and ischemic bowel now with ileostomy who is here today for fluid overload ESRD on dialysis Normally on MWF continue his home supplements Patient typically is on Middaugh drain for hypotension Full Code (3) Atrial fibrillation: Atrial Fibrillation Not on anticoagulation, currently on amiodarone on a rhythm control strategy Sinus rhythm at present (4) Elevated troponin: Patient has a history of elevated troponins in the past. Likely based upon renal clearance. Patient has no coronary symptoms nor signs of acute coronary syndrome. This is likely from his renal failure or could be demand ischemia given his volume overload. (5) Anemia, chronic renal failure: Anemia of chronic disease secondary to renal failure Continuing EPO (6) Ileostomy in place: (7) COPD (chronic obstructive pulmonary disease): Patient is not in exacerbation at this present time remains on Spiriva, fluticasone/Vilanterol and as needed albuterol (8) Depression: Patient johanna on peroxide teen (9) Peripheral vascular disease: Patient is a history of significant peripheral artery disease with ischemi c colitis resulting in ileostomy and revascularization of peripheral circulation remains on dual antiplatelet agents and atorvastatin (10) DVT prophylaxis: Chemoprophylaxis was not chosen by the admitting physician he is on MARJORIE stockings. Concern for circulation with his peripheral artery disease would limit SCD use. If he is going to be over extended period time consideration of subcutaneous heparin given his renal dysfunction could be undertaken Admission and Anticipated Discharge Date Admission Date: May 02, 2020 Subjective Today this patient was in good spirits. He still feels slightly short of breath and feels "off" he did not finish his dialysis treatment from 05/01 due to a malfunction of his ileostomy. Patient was brought in for shortness of breath felt to be from volume overload from incomplete dialysis sessions. Have a message out to Dr. Guillory regarding the possibility of having dialysis session today on 05/02/2020. Otherwise the patient has no chest pain or pressure Review of Systems Review of Systems: Mild distress and fatigue no headache, blurry or double vision no speech or swallowing issues no chest pain, pressure or palpitations Shortness of breath at rest without coughing or wheezing no abdominal pain, nausea or vomiting, feelings of abdominal fullness no dysuria, hematuria or frequency no focal joint pain or swelling no back pain, CVA tenderness or radicular pain no bruising, bleeding or rashes no focal signs of weakness or numbness or altered sensation no complaints or anxiety or depression. Physical Exam Physical Exam: The patient appeared well nourished and normally developed. Vital signs as documented. Head exam is normocephalic atraumatic no scleral icterus Neck is without JVD, thyromegaly, or carotid bruits. Lungs bibasilar rales with decreased breath sounds at the bases also Cardiac exam, Rhythm is regular.. No rubs or gallops. Abdominal exam reveals normal bowel sounds, soft mildly distended no masses nontender Extremities are mildly edematous and both pedal pulses are normal. Neurologic exam is alert and oriented, no focal loss of strength or sensation Skin is without bruises or rashes Psychologically is without concerns for anxiety or depression Results & Data Results & Data ([facility]) Vital Signs (Past 12 Hours) Vital Signs Temp Pulse Pulse Resp BP BP Pulse Ox 05/02/20 07:50 97.5 F L 68 20 168/67 H 97 05/02/20 03:43 97.7 F 19 155/72 H 100 05/02/20 01:48 120/73 05/02/20 01:00 97.9 F 71 24 185/86 H 100 05/02/20 00:43 74 16 150/74 H 100 05/02/20 00:30 64 19 150/74 H 100 05/02/20 00:00 65 24 153/81 H 100 05/01/20 23:30 62 20 148/75 H 100 05/01/20 23:00 66 23 169/80 H 100 05/01/20 22:30 63 25 H 140/75 96 05/01/20 21:45 70 20 148/91 H 94 PG Care Time/CCT Total # of Minutes Spent Total Time Spent with Patient: Total time spent is greater than 50% in coordination of care (as documented) at patient's floor/unit and/or counseling patient: Coding Level of Care Code 18511 Subseq Hosp Care Lvl 3 Diagnoses Acute pulmonary edema J81.0 End stage renal disease on dialysis N18.6; Z99.2 Atrial fibrillation I48.0 Atrial fibrillation type: paroxysmal Elevated troponin R74.8 Anemia, chronic renal failure N18.9; D63.1 Chronic kidney disease stage: unspecified stage Ileostomy in place Z93.2 COPD (chronic obstructive pulmonary disease) J44.9 Depression F32.9 Peripheral vascular disease I73.9 DVT prophylaxis Z29.9 (1) Anemia, chronic renal failure Chronic kidney disease stage: unspecified stage Qualified Code(s): N18.9 - Chronic kidney disease, unspecified; D63.1 - Anemia in chronic kidney disease (2) Atrial fibrillation Atrial fibrillation type: paroxysmal Qualified Code(s): I48.0 - Paroxysmal atrial fibrillation
--- NOTE | 2020-05-02 14:10 | Consultation Report ---
DATE OF CONSULTATION: 05/02/2020 NEPHROLOGY CONSULTATION REASON FOR CONSULT: Dialysis. The patient is admitted with shortness of breath. HISTORY OF PRESENT ILLNESS: The patient is a 74-year-old male with end-stage renal disease on chronic hemodialysis Thursday, Thursday and Thursday at the [facility] in [place]. He has extensive cardiopulmonary problem list as well as ileostomy status, presented to the hospital last night with shortness of breath. At this time, the working diagnosis is respiratory failure secondary to congestive heart failure. He is in process of being sent to the Dialysis Unit at this time. He has trouble with hypotension during outpatient dialysis and only 1.5 kilo of fluid can be removed each time and that is with the help of midodrine. PAST MEDICAL AND SURGICAL HISTORY: Very extensive and includes aortic aneurysm, history of osteomyelitis, ESRD on chronic hemodialysis, chronic AFib, coronary artery disease status post CABG, COPD, depression, dermatitis, diastolic CHF, history of DVT, history of gout, ischemic colitis status post ileostomy, history of MS, valvular heart disease status post MVR, vitamin D deficiency. Surgical history is also extensive and also includes aortoiliac femoral bypass, abdominal aortic aneurysm repair, atrial fibrillation ablation. FAMILY HISTORY: Negative for renal disease or dialysis. SOCIAL HISTORY: He is a , lives with his sister. He is retired. Does not smoke now, but did smoke in the past. HOME MEDICATION: List is extensive and was reviewed in detail and is as per the H and P. ALLERGIES LIST: Reviewed. REVIEW OF SYSTEMS: Besides shortness of breath, other systems reviewed and negative. PHYSICAL EXAMINATION: GENERAL: Elderly white male who is awake, alert, oriented x3. He is not in any overt respiratory distress at this point of time. Normal speech and accurate. HEENT: Mucous membrane moist. NECK: Supple. No jugular venous distention. CHEST: Bilateral decreased breath sounds with crackles and wheezing. CARDIOVASCULAR: Regular rate and rhythm. Soft systolic murmur heard. ABDOMEN: Soft, nontender, obese with an ileostomy. LOWER EXTREMITIES: Shows features of chronic venous insufficiency with chronic edema. VITAL SIGNS: Blood pressure 123/69, pulse rate 114, temperature 37 degrees Celsius, 99% on room air. LABORATORY TESTS: Reviewed in detail and shows elevated BNP. Hemoglobin 11.7, platelet count 147, BUN 45, creatinine 11.4. Sodium 136, potassium 4.8. Troponin mildly elevated. Chest x-ray shows some features of congestion, but no overt CHF. ASSESSMENT AND PLAN: A 74-year-old male with ESRD, on chronic hemodialysis, admitted with shortness of breath. Not exactly sure whether the etiology is pulmonary or cardiology, but probably combination of CHF as well as his underlying COPD. We will do hemodialysis today for 3 hours 30 minutes with the help of midodrine and try to take about 1.5-2 kilo off. MTDD
[2020-05-02] MEDS: MIDODRINE HCL 2.5 MG TAB PO PRN (16:10)
[2020-05-02] MEDS: PARoxetine HCL 20 MG TAB PO SCH (22:02)
[2020-05-02] MEDS: DOCUSATE SODIUM 100 MG CAP PO SCH (22:02)
[2020-05-02] MEDS: ATORVASTATIN 40 MG TAB PO SCH (22:02)
--- NOTE | 2020-05-02 22:41 | Electrocardiogram Report ---
Test Reason : Blood Pressure : / mmHG Vent. Rate : 076 BPM Atrial Rate : 060 BPM P-R Int : 000 ms QRS Dur : 088 ms QT Int : 412 ms P-R-T Axes : 000 072 026 degrees QTc Int : 463 ms Poor data quality, interpretation may be adversely affected Possible Sinus rhythm with 1st degree A-V block and PVCs Nonspecific ST abnormality Abnormal ECG When compared with ECG of 24-DEC-2019 16:36, Artifact is now present Confirmed by Grupo Moreno ([id number]) on 05/02/2020 10:41:04 PM Referred By: REFERRED SELF Confirmed By:Grupo Moreno
[2020-05-03] MEDS ORDERED: ALUMINUM/MAGNESIUM SUSP 30 ML UDC PO STA (01:22)
[2020-05-03] MEDS: MIDODRINE HCL 2.5 MG TAB PO SCH ×2 (06:31→13:03)
[2020-05-03] MEDS: LEVOTHYROXINE SODIUM 88 MCG TABLET PO SCH (06:31)
[2020-05-03] MEDS: FLUTICASONE/VILANTEROL 200/25MCG 14 PUFFS/INHALER INH SCH (08:13)
[2020-05-03] MEDS: ACETAMINOPHEN 325 MG TAB PO SCH ×2 (08:13→19:59)
[2020-05-03] MEDS: CALCIUM ACETATE 667 MG CAP/TAB PO SCH ×4 (08:13→19:59)
[2020-05-03] MEDS: PANTOprazole 40 MG TAB PO SCH (08:14)
[2020-05-03] MEDS: UMECLIDINIUM BROMIDE 62.5MCG/BLISTER 7 PUFFS/INHALER INH SCH (08:15)
[2020-05-03] MEDS: NEPHROCAPS PO SCH (08:15)
[2020-05-03] MEDS: ASPIRIN 81 MG ECTAB PO SCH (08:15)
[2020-05-03] MEDS: CLOPIDOGREL BISULFATE 75 MG TAB PO SCH (08:15)
[2020-05-03] MEDS: HEPARIN SOD 5,000 UNIT/0.5 ML VIAL SQ SCH ×2 (08:16→20:01)
[2020-05-03] MEDS: PREGABALIN 75 MG CAP PO SCH (08:20)
[2020-05-03 08:29] LABS: BUN Creatinine Ratio 3.6 (10-20); Calcium 9.5 mg/dl (8.5-10.1); Creatinine Clr Calc Pharmacy 9.7 ml/min; Est GFR (African American) 6.4; Est GFR (Non-African American) 5.5; Potassium 4.8 mmol/L (3.5-5.1)
[2020-05-03] MEDS ORDERED: AMIODARONE 200 MG TAB PO SCH (09:00)
[2020-05-03] MEDS ORDERED: ALBUT/IPRATROP 3MG/0.5MG NEB 3 ML VIAL NEB STA (13:44)
--- NOTE | 2020-05-03 13:54 | Hospitalist Progress Note ---
Date of Service May 03, 2020 Assessment & Plan (1) Acute pulmonary edema: Acute respiratory failure with hypoxia secondary to acute exacerbation of diastolic heart failure from incomplete dialysis session 4L oxygen nasal canula at present with titration Patient unable to finish dialysis due to ileostomy accident, nephrology to manage inpatient dialysis In meantime will support with supplemental O2 and monitor electrolytes BNP 16,000 on admission Improved s/p HD on 05/02 (2) End stage renal disease on dialysis: ESRD on dialysis Normally on MWF continue his home supplements Patient typically is on midodrine for hypotension (3) Atrial fibrillation: Atrial Fibrillation Not on anticoagulation, currently on amiodarone on a rhythm control strategy Sinus rhythm at present (4) Elevated troponin: Patient has a history of elevated troponins in the past, likely related to renal status vs demand ischemia in the setting of volume overload Patient has no coronary symptoms nor signs of acute coronary syndrome EKG with 1st degree AVB, seen prior (5) Anemia, chronic renal failure: Anemia of chronic disease secondary to renal failure Continuing EPO (6) Ileostomy in place: (7) COPD (chronic obstructive pulmonary disease): Patient is not in exacerbation on admission remains on Spiriva, fluticasone/Vilanterol and as needed albuterol as at home Will add scheduled nebs given wheeze noted on exam No hx of home O2 use, wean as able (8) Depression: Patient johanna on paroxetine (9) Peripheral vascular disease: Patient is a history of significant peripheral artery disease with 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 Concern for circulation with his peripheral artery disease would limit SCD use. 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 He has not been OOB yet today to determine HERNANDEZ status. No chest pain. States his LE swelling is resolved. Tolerating PO without issue. Pt denies fever, abd pain, n/v/c/d, LE pain. Pt states he takes scheduled inhalers at home and has been getting them. Denies usually wheezing on exams. Per nursing, pt uses a CPAP HS regularly, but had not mentioned it prior. Review of Systems Review of Systems: Pertinent positives and negatives reviewed in HPI--all others negative Physical Exam Constitutional: WD/WN, vitals as above Eyes: normal visual quiros by confrontation and + anicteric sclerae Neck: normal visual inspection and trachea midline Respiratory: normal respiratory effort; no respiratory distress Auscultation: + wheezes (expiratory, diffuse); no crackles Cardiovascular: Rate/Rhythm: regular rate and regular rhythm Extremities: + edema (trace) Gastrointestinal (Abdomen): Inspection/Auscultation: abdomen not distended Percussion/Palpation: abdomen soft; abdomen nontender Musculoskeletal: Head/Neck/Chest: normocephalic and head atraumatic peripheral pulses intact Skin: no rashes, warm and dry Neurologic: awake; not confused Speech / Cognition: normal speech Psychiatric: A+Ox3, euthymic affect Results & Data Results & Data ([facility]) Vital Signs (Past 12 Hours) Vital Signs Temp Pulse Pulse Pulse Resp BP Pulse Ox 05/03/20 13:04 127/67 05/03/20 12:00 36.8 C 64 18 163/73 H 94 05/03/20 07:29 64 05/03/20 07:07 36.7 C 75 16 159/58 H 93 05/03/20 04:10 36.8 C 68 16 139/71 93 PG Care Time/CCT Total # of Minutes Spent Total Time Spent with Patient: Total time spent is greater than 50% in patient relations coordinator rdination of care (as documented) at patient's floor/unit and/or counseling patient: Coding Level of Care Code 67002 Subseq Hosp Care Lvl 3 Diagnoses Acute pulmonary edema J81.0 End stage renal disease on dialysis N18.6; Z99.2 Atrial fibrillation I48.0 Atrial fibrillation type: paroxysmal Elevated troponin R74.8 Anemia, chronic renal failure N18.9; D63.1 Chronic kidney disease stage: unspecified stage Ileostomy in place Z93.2 COPD (chronic obstructive pulmonary disease) J44.9 Depression F32.9 Peripheral vascular disease I73.9 DVT prophylaxis Z29.9 TORRIE (obstructive sleep apnea) G47.33 (1) Atrial fibrillation Atrial fibrillation type: paroxysmal Qualified Code(s): I48.0 - Paroxysmal atrial fibrillation (2) Anemia, chronic renal failure Chronic kidney disease stage: unspecified stage Qualified Code(s): N18.9 - Ch ronic kidney disease, unspecified; D63.1 - Anemia in chronic kidney disease
[2020-05-03] MEDS: ALBUT/IPRATROP 3MG/0.5MG NEB 3 ML VIAL NEB SCH ×3 (15:16→23:32)
[2020-05-03] MEDS: PARoxetine HCL 20 MG TAB PO SCH (20:00)
[2020-05-03] MEDS: ATORVASTATIN 40 MG TAB PO SCH (20:00)
[2020-05-03] MEDS: DOCUSATE SODIUM 100 MG CAP PO SCH (20:01)
[2020-05-04] MEDS: ALBUT/IPRATROP 3MG/0.5MG NEB 3 ML VIAL NEB SCH ×2 (03:18→07:04)
[2020-05-04] MEDS: LEVOTHYROXINE SODIUM 88 MCG TABLET PO SCH (05:52)
[2020-05-04] MEDS ORDERED: MIDODRINE HCL 2.5 MG TAB PO SCH ×3 (07:00→18:00)
[2020-05-04] MEDS: CALCIUM ACETATE 667 MG CAP/TAB PO SCH ×3 (08:13→16:37)
[2020-05-04] MEDS: FLUTICASONE/VILANTEROL 200/25MCG 14 PUFFS/INHALER INH SCH (08:14)
[2020-05-04] MEDS: UMECLIDINIUM BROMIDE 62.5MCG/BLISTER 7 PUFFS/INHALER INH SCH (08:14)
[2020-05-04] MEDS: HEPARIN SOD 5,000 UNIT/0.5 ML VIAL SQ SCH (08:17)
[2020-05-04] MEDS: ACETAMINOPHEN 325 MG TAB PO SCH (08:17)
[2020-05-04] MEDS: PREGABALIN 75 MG CAP PO SCH ×2 (08:30→13:42)
[2020-05-04] MEDS ORDERED: FAMOTIDINE 20 MG TAB PO SCH (09:00)
[2020-05-04] MEDS: MIDODRINE HCL 2.5 MG TAB PO PRN (11:07)
--- NOTE | 2020-05-04 13:22 | Progress Notes ---
DATE: 05/04/2020 DIALYSIS NOTE SUBJECTIVE: The patient was seen during dialysis and as of now, he is tolerating it very well. Blood pressure has remained very good entire dialysis. He is not having any cramp. Fistula worked fine. OBJECTIVE: VITAL SIGNS: Blood pressure 140/70, temperature 36.6, 98% on room air. HEENT: Mucous membranes moist. NECK: Supple. No jugular venous distention. CHEST: Bilaterally clear to auscultation. CARDIOVASCULAR: S1, S2 regular. ABDOMEN: Soft, nontender. EXTREMITIES: Show no edema, although he does have skin changes related with chronic edema. LABORATORY TESTS: Reviewed in detail. No major electrolyte issues. ASSESSMENT AND PLAN: A 74-year-old male with end-stage renal disease, on chronic hemodialysis, admitted with shortness of breath. End-stage renal disease: Dialysis today as per his regular schedule. His next dialysis will be on Thursday if he is still in the hospital.
[2020-05-04] MEDS: CLOPIDOGREL BISULFATE 75 MG TAB PO SCH (13:42)
[2020-05-04] MEDS: NEPHROCAPS PO SCH (13:42)
[2020-05-04] MEDS: ASPIRIN 81 MG ECTAB PO SCH (13:42)
[2020-05-04] MEDS: PANTOprazole 40 MG TAB PO SCH (13:43)
[2020-05-04 14:40] LABS: BUN Creatinine Ratio 3.2 (10-20); Calcium 8.8 mg/dl (8.5-10.1); Creatinine Clr Calc Pharmacy 15.3 ml/min; Est GFR (Non-African American) 9.5; Potassium 4.9 mmol/L (3.5-5.1)
--- NOTE | 2020-05-04 14:57 | Discharge Summary ---
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 Patient is on dialysis three days a week under direction of ena Alcantar of [facility] nephrology, he went to dialysis on Thursday and was only able to complete a partial session of dialysis because his ileostomy bag burst. He began to feel short of breath later that day and has gotten progressively more short of breath. On thorough review of systems the only new symptoms he enodrses are shortness of breath and leg swelling. He denies cough fever, chills, chest pain, abdominal pain, nausea, vomiting, diarrhea, loss of taste or smell, sick contacts. He has felt this way when he was fluid overloaded in the past. On arrival to ED patient was found to be dyspneic and was placed on four L of O2 which improved his symptoms. Labwork was notable for anemia (appears to be stable and chronic on EPO), electrolytes were all WNL, creatinine of 11.4, elevated [place] .046[place] [address]. Patient's troponin has been elevated at previous several appearances here as well. Here with his sister who is helpful in providing history as he tends to downplay his symptoms. They live together at home, he denies smoking drinking, drug use. Principal Diagnosis Pt is feeling much improved. He has minimal SOB with exertion now and none at rest. His LE swelling is resolved. Tolerating PO without issue. Pt denies fever, chest pain, abd pain, n/v/c/d, LE pain. Discharge Exam Constitutional WD/WN, vitals as above Eyes normal visual quiros by confrontation and + anicteric sclerae Neck normal visual inspection and trachea midline Respiratory normal respiratory effort; no respiratory distress Auscultation: + wheezes (scant); no crackles Cardiovascular Rate/Rhythm: regular rate and regular rhythm Extremities: + edema (trace) Gastrointestinal (Abdomen) Inspection/Auscultation: abdomen not distended Percussion/Palpation: abdomen soft; abdomen nontender Musculoskeletal Head/Neck/Chest: normocephalic and head atraumatic Skin no rashes, warm and dry Neurologic awake; not confused Speech / Cognition: normal speech Psychiatric A+Ox3, euthymic affect Discharge Data Allergies Allergy/AdvReac Type Severity Reaction Status Date / Time oxycodone AdvReac Severe DELIRIUM Verified 05/01/20 21:46 gabapentin AdvReac Unknown Nausea Verified 05/02/20 01:21 tramadol AdvReac Unknown dizziness;a Verified 05/02/20 01:21 nxiety;sob Consultations 05/01/20 23:19 ED Decision to Admit Stat 05/02/20 01:11 Consult Nephrology Routine Hospital Course (1) Acute pulmonary edema: Acute respiratory failure with hypoxia secondary to acute exacerbation of diastolic heart failure from incomplete dialysis session BNP 16,000 on admission 4L oxygen nasal canula on admission, successfully weaned off of O2 on d/c Patient unable to finish dialysis due to ileostomy accident at his usual Thursday HD session, much improved with additional HD here and now feels at baseline (2) End stage renal disease on dialysis: ESRD on dialysis Normally on MWF continue his home supplements Patient typically is on midodrine for hypotension (3) Atrial fibrillation: Atrial Fibrillation Not on anticoagulation, currently on amiodarone on a rhythm control strategy Sinus rhythm at present (4) Elevated troponin: Patient has a history of elevated troponins in the past, likely related to renal status vs demand ischemia in the setting of volume overload Patient has no coronary symptoms nor signs of acute coronary syndrome EKG with 1st degree AVB, seen prior Peak was 0.051 (5) Anemia, chronic renal failure: Anemia of chronic disease secondary to renal failure Continuing EPO (6) Ileostomy in place: (7) COPD (chronic obstructive pulmonary disease): Patient is not in exacerbation on admission remains on Spiriva, fluticasone/Vilanterol and as needed albuterol as at home Did have some wheezing on exam that improved with nebs, likely COPD irritation (not rubin exacerbation) with fluid overload (8) Depression: continue paroxetine (9) Peripheral vascular disease: Patient is a history of significant peripheral artery disease with ischemic colitis resulting in ileostomy and revascularization of peripheral circulation remains on dual antiplatelet agents and atorvastatin (10) DVT prophylaxis: Chemoprophylaxis was not chosen by the admitting physician, MARJORIE hannah for now. Concern for circulation with his peripheral artery disease would limit SCD use. If he is going to be over extended period time consideration of subcutaneous heparin given his renal dysfunction could be undertaken (11) TORRIE (obstructive sleep apnea): CPAP as at home Total Time Total Time Spent Total Time Spent (In Minutes): >30 Total Time Includes: Examination of the Patient, Discharge Planning, Medication Reconciliation and Other Discharge Plan Discharge Items Patient Disposition: Home - Self-Care Reason For Visit: CHF EXACERBATION Discharge Diagnosis: CHF exacerbation Condition on Discharge: Good Activity: Resume your previous activity Non-emergency contact: Primary Care Provider and [employer] Call non-emergency contact if: you have any medication questions and your symptoms worsen Follow-up/Referrals: Emil Lazcano MD [Primary Care Provider] - 05/08/20 10:15 am Diet: Dialysis Renal Addtl Attending Provider Instructions: You should resume your prior dialysis schedule of Thursday, Thursday, Thursday. Pending Studies at Discharge: No Stand-Alone Forms: My [employer], Smoking Cessation Medications and DC Order Prescriptions: Continued atorvastatin 40 mg tablet 40 mg PO HS Qty: 90 RF: 3 omeprazole 20 mg tablet,delayed release (DR/EC) 20 mg PO QAM Qty: 90 RF: 3 acetaminophen 325 mg capsule 650 mg PO BID Qty: 30 RF: 0 Aranesp (in polysorbate) 40 mcg/mL solution 40 mcg subcut WEEKLY Qty: 4 RF: 0 sennosides-docusate sodium [Senokot-S] 8.6-50 mg tablet 1 tabcap PO DAILY PRN (Reason: constipation) Qty: 30 RF: 0 polyethylene glycol 3350 [Miralax] 17 gram/dose powder 17 gm PO DAILY PRN (Reason: constipation) Qty: 119 RF: 0 paroxetine HCl 20 mg tablet 20 mg PO HS Qty: 90 RF: 3 levothyroxine 88 mcg capsule 88 mcg PO DAILY Qty: 30 RF: 2 Lyrica 75 mg capsule 75 mg PO QAM Qty: 30 RF: 3 temazepam 15 mg capsule 30 mg PO HS PRN (Reason: Sleep) Qty: 60 RF: 0 amiodarone 200 mg tablet 200 mg PO Q OTHER DAY Qty: 14 RF: 3 Breo Ellipta 200-25 mcg/dose blister with device 1 inh INHALATION QAM Qty: 28 RF: 3 Spiriva with HandiHaler 18 mcg capsule, w/inhalation device 1 cap INHALATION QAM Qty: 30 RF: 4 alprazolam 0.5 mg tablet 0.5 mg PO BID PRN (Reason: anxiety) Qty: 20 RF: 0 azithromycin 500 mg Tablet 500 mg PO DIRECTED PRN (Reason: PRIOR TO DENTAL VISITS) RF: 0 famotidine 20 mg tablet 20 mg PO MOWEFR RF: 0 midodrine 5 mg tablet 5 mg PO TID RF: 0 aspirin [Aspirin Low Dose] 81 mg Tablet,Delayed Release (Dr/Ec) 81 mg PO DAILY RF: 0 Triphrocaps 1 mg capsule 1 mg PO DAILY RF: 0 albuterol sulfate 90 mcg/actuation Hfa Aerosol Inhaler 2 puff INHALATION Q6H PRN (Reason: Shortness Of Breath) RF: 0 calcium acetate(phosphat bind) 667 mg Capsule 667 mg PO TIDM RF: 0 albuterol sulfate 2.5 mg /3 mL (0.083 %) solution for nebulization 2.5 mg INH Q6H PRN (Reason: cough/wheeze/shortness of breath) Qty: 180 RF: 5 docusate sodium 100 mg capsule 100 mg PO HS RF: 0 clopidogrel 75 mg tablet 75 mg PO DAILY RF: 0 Discharge Orders: Discharge Order (Routine); Ordered 05/04/20 Ordered By: Reena Grider/Other Patient Handouts: Fluids Limiting Dc Admission Data Admit Date/Time: 05/02/20 00:19 Attending Provider: Reena Kong Admit Provider: Luc Pradhan Primary Care Provider: Emil Lazcano Other Providers: Aditya Hardin ; Marc Griffin Other Interventions: Discharge Summary Assessment (RN) Last Done: 05/04/20 15:07 Coding Level of Care Code D/C Day Management >30 mins Diagnoses Acute pulmonary edema J81.0 End stage renal disease on dialysis N18.6; Z99.2 Atrial fibrillation I48.0 Atrial fibrillation type: paroxysmal Elevated troponin R74.8 Anemia, chronic renal failure N18.9; D63.1 Chronic kidney disease stage: unspecified stage Ileostomy in place Z93.2 COPD (chronic obstructive pulmonary disease) J44.9 Depression F32.9 Peripheral vascular disease I73.9 DVT prophylaxis Z29.9 TORRIE (obstructive sleep apnea) G47.33
--- NOTE | 2020-05-05 11:16 | Billing Data ---
Date of Service May 05, 2020 Coding Level of Care Code 23598 Initial Inpt Care Lvl 3
== END 2020-05-04 18:16 | disposition home or self-care (01) | DRG 291 ==
LOC: ED 20:45 → SUATTDRO 05-02 00:19 → 2S 05-02 00:19

== ENCOUNTER 2020-05-05 12:50 | Inpatient (IN) ==
[2020-05-05] MEDS ORDERED: CEFEPIME 2,000 MG/20 ML VIAL IV STA (13:05)
[2020-05-05] MEDS ORDERED: ACETAMINOPHEN 500 MG TAB PO STA (13:11)
[2020-05-05] MEDS ORDERED: ALBUTEROL HFA 8 GM INHALER INH ONE (13:11)
--- NOTE | 2020-05-05 13:20 | Emergency Department Note ---
Impression & Plan Sepsis, Fever, Hypoxia, Breath shortness ED Provider Note NAME: RAMA AYERS AGE: 74 SEX: M : 1945 ARRIVES VIA: Ambulance INFORMANT: Patient ED PROVIDER(S): Jake Arevalo DO CHIEF COMPLAINT: Shortness of breath HPI: Patient is a 74-year-old male with a past medical history of dialysis and previous amputations along with a CABG who presents the ER for shortness of breath. He was recently admitted and discharged within the past 24 hours. He had dialysis yesterday. Receives dialysis Thursday. He denies any chest pain. He denies any belly pain. He does have some nausea. He does not make urine. He denies any new open wounds or sores. No head or neck pain. Has had outputs of his ostomy in the right abdomen. He has not been tested for coronavirus. No exposure to anyone with coronavirus. He has lost sense of taste. Have a history of COPD and CHF. Patient was brought in by EMS and found to be hypoxic at 88% on room air. ROS: See above HPI for pertinent positives & negatives. A total of 10 systems reviewed and were otherwise negative. PAST MEDICAL HISTORY:See Below PAST SURGICAL HISTORY:See Below FAMILY HISTORY:See Below SOCIAL HISTORY:See Below HOME MEDICATIONS:See Below ALLERGIES:See Below VITALS:See Below PHYSICAL EXAMINATION: GENERAL: Sitting up in bed, alert, ill-appearing, disheveled, EYE EXAM: normal conjunctiva. OROPHARYNX: no exudate, no erythema, lips, buccal mucosa, and tongue normal and mucous membranes are moist NECK: supple, no nuchal rigidity, no adenopathy, non-tender LUNGS: Diminished bilaterally. Normal chest wall mechanics HEART: no murmurs, S1 normal and S2 normal ABDOMEN: abdomen soft, non-tender, normo-active bowel sounds, no masses, no rebound or guarding. BACK: Back is symmetrical on inspection and there is no deformity, no midline tenderness, no CVA tenderness. SKIN: + bruising UPPER EXTREMITIES: Positive thrill and bruit in right arm LOWER EXTREMITIES: Amputation of right toes multiple old surgical incisions on bilateral calves NEURO EXAM: Normal sensorium, cranial nerves II-XII grossly intact, normal speech, no gross weakness of arms, no gross weakness of legs. MEDICAL DECISION MAKING: Patient is a 74-year-old male who was just recently admitted and discharged the presents the ER for shortness of breath which has continued even after his discharge yesterday. He received dialysis yesterday as well. He was found to be febrile today. He admits to weakness. He has no other complaints other than the shortness of breath. IV was established blood work is obtained. Labs show a leukocytosis of 14,000. Mild anemia 10. INR was unremarkable. BMP with slightly elevated potassium of 5.4. Creatinine at 9.4 and is as expected as he is on dialysis. Lactate was normal. LFTs bilirubin was unremarkable. Troponin was detectable at 0.06 which I question if this is just secondary to his renal failure versus mild demand ischemia but upon review I do favor that this consistent with renal failure as it has been elevated before in the past. Patient remained on nasal cannula throughout his stay in the ER. He was given some Ventolin inhalers and did have improvement of his shortness of breath. Procalcitonin slightly elevated 0.60. Influenza was negative. I did order coronavirus testing as he has a loss of taste, fever, shortness of breath and is hypoxic. Chest x-ray shows mild atelectasis/infiltrate in the left base. Luis Manuel chaudhari was given IV cefepime. Updated bedside. Discussed with hospitalist admitted for further work-up. Triage Nursing notes reviewed. Prior medical records reviewed Vital Signs: reviewed and remarkable for no significant abnormalities Differential diagnosis: Differential diagnosis includes etiologies such as sepsis, UTI, pneumonia, metabolic, electrolyte abnormalities, cardiac sources, intracerebral event, toxicologic, neurological, as well as others were entertained. ER treatment provided: See below Diagnostics interpreted by me: ECG: Sinus rhythm rate 87 Normal axis First-degree AV block No PVCs T wave flattening in aVL Cardiac Monitoring: An order was placed for continuous cardiac monitoring. The monitor shows a rate of 89 with sinus rhythm. Laboratory studies: As stated above and show below. Imaging studies: Portable AP upright 1 view of the chest was reviewed. Consultation(s): Discussed with Dr. Aditya Ochoa for admission. ED COURSE: Procedures: none Critical Care: I have personally spent 31 minutes of critical care time in the direct management of this patient. This includes bedside care, interpretation of diagnostic studies, and testing, discussion with consultants, patient, and family members, and other required patient management activities. This 31 minutes is in excess of all separately billable procedures. 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 Feels Safe at Home: Yes Smoking Status: Former smoker Tobacco Type: cigarettes ; Second Hand Exposure: No ; Hx Alcohol Use: No Hx Substance Use: No Allergies Allergies Allergy/AdvReac Type Severity Reaction Status Date / Time oxycodone AdvReac Severe DELIRIUM Verified 05/05/20 13:31 gabapentin AdvReac Unknown Nausea Verified 05/05/20 13:31 tramadol AdvReac Unknown dizziness;a Verified 05/05/20 13:31 nxiety;sob Home Meds Home Medications Medication Instructions Recorded Confirmed albuterol sulfate 2 puff INHALATION Q6H PRN 08/23/18 05/05/20 calcium acetate(phosphat bind) 667 mg PO TIDM 08/23/18 05/05/20 azithromycin 500 mg PO DIRECTED PRN 08/30/18 05/05/20 docusate sodium 100 mg capsule 100 mg PO HS 05/31/19 05/05/20 famotidine 20 mg PO MOWEFR 10/17/19 05/05/20 midodrine 5 mg PO TID 11/21/19 05/05/20 clopidogrel 75 mg PO DAILY 12/24/19 05/05/20 Triphrocaps 1 mg PO DAILY 05/01/20 05/05/20 aspirin [Aspirin Low Dose] 81 mg PO DAILY 05/01/20 05/05/20 Previous Rx's Medication Instructions Recorded albuterol sulfate 2.5 mg INH Q6H PRN #180 ml 05/26/19 alprazolam 0.5 mg tablet 0.5 mg PO BID PRN #20 tab 05/31/19 atorvastatin 40 mg tablet 40 mg PO HS #90 tab 10/05/19 omeprazole 20 mg tablet,delayed 20 mg PO QAM #90 tab 10/05/19 release acetaminophen 325 mg capsule 650 mg PO BID #30 cap 11/22/19 darbepoetin lilly in polysorbat 40 40 mcg SUBCUT WEEKLY #4 ml 11/22/19 mcg/mL in polysorbate injection polyethylene glycol 3350 17 17 gm PO DAILY PRN #119 gm 11/22/19 gram/dose oral powder sennosides 8.6 mg-docusate sodium 1 tabcap PO DAILY PRN #30 tab 11/22/19 50 mg tablet paroxetine HCl 20 mg tablet 20 mg PO HS #90 tab 12/12/19 levothyroxine 88 mcg capsule 88 mcg PO DAILY #30 cap 01/10/20 pregabalin 75 mg capsule 75 mg PO QAM #30 cap 01/13/20 temazepam 15 mg capsule 30 mg PO HS PRN #60 cap 01/20/20 amiodarone 200 mg tablet 200 mg PO Q OTHER DAY #14 tab 02/16/20 fluticasone furoate 200 1 inh INHALATION QAM #28 ea 03/15/20 mcg-vilanterol 25 mcg/dose inhalation powder tiotropium bromide 18 mcg capsule 1 cap INHALATION QAM #30 puffs 03/21/20 with inhalation device Results & Data (ED) Vital Signs Vital Signs - 24 hr 05/05/20 12:53 05/05/20 12:58 05/05/20 13:00 Temperature 38.9 C H Temperature Source Oral Pulse Rate 96 H 98 H 94 H Pulse Rate from SpO2 Sensor 97 H 95 H Pulse Rhythm Respiratory Rate 17 28 H 26 H Respiratory Effort / Characteristics Short of Breath Respiratory Pattern Regular Blood Pressure 171/106 H 171/106 H 158/85 H Blood Pressure Mean 129 127 121 Pulse Oximetry 95 88 L 97 Oxygen Delivery Method Nasal Cannula Oxygen Flow Rate 3 3 3 Sepsis Recent Fever Within 48 Hours Yes Sepsis New/Unexplained Change in Mental Status No Sepsis Action Taken by Nursing No Action Required 05/05/20 13:08 05/05/20 13:09 05/05/20 13:30 Temperature Temperature Source Pulse Rate 94 H 90 Pulse Rate from SpO2 Sensor 90 Pulse Rhythm Regular Respiratory Rate 27 H 22 Respiratory Effort / Characteristics Respiratory Pattern Blood Pressure 154/70 H Blood Pressure Mean 95 Pulse Oximetry 92 97 98 Oxygen Delivery Method Nasal Cannula Nasal Cannula Oxygen Flow Rate 3 3 3 Sepsis Recent Fever Within 48 Hours Sepsis New/Unexplained Change in Mental Status Sepsis Action Taken by Nursing 05/05/20 14:00 05/05/20 14:01 05/05/20 14:10 Temperature Temperature Source Pulse Rate 83 83 83 Pulse Rate from SpO2 Sensor 82 83 83 Pulse Rhythm Respiratory Rate 14 16 Respiratory Effort / Characteristics Respiratory Pattern Blood Pressure 145/73 H Blood Pressure Mean 92 Pulse Oximetry 97 96 96 Oxygen Delivery Method Oxygen Flow Rate Sepsis Recent Fever Within 48 Hours Sepsis New/Unexplained Change in Mental Status Sepsis Action Taken by Nursing 05/05/20 15:07 05/05/20 15:15 05/05/20 15:30 Temperature 38.2 C H Temperature Source Oral Pulse Rate 76 72 Pulse Rate from SpO2 Sensor 76 72 Pulse Rhythm Respiratory Rate 20 20 Respiratory Effort / Characteristics Respiratory Pattern Blood Pressure 117/61 130/52 L Blood Pressure Mean 83 70 Pulse Oximetry 96 98 Oxygen Delivery Method Oxygen Flow Rate 3 Sepsis Recent Fever Within 48 Hours Sepsis New/Unexplained Change in Mental Status Sepsis Action Taken by Nursing 05/05/20 16:00 Temperature Temperature Source Pulse Rate 75 Pulse Rate from SpO2 Sensor 75 Pulse Rhythm Respiratory Rate 19 Respiratory Effort / Characteristics Respiratory Pattern Blood Pressure 133/53 L Blood Pressure Mean 67 Pulse Oximetry 97 Oxygen Delivery Method Oxygen Flow Rate 3 Sepsis Recent Fever Within 48 Hours Sepsis New/Unexplained Change in Mental Status Sepsis Action Taken by Nursing Laboratory Data Result diagrams: 05/05/20 14:52 05/05/20 14:52 Lab Results 05/05/20 05/05/20 05/05/20 Range/Units 13:30 14:52 14:52 WBC 14.09 H (4.8-10.8) K/uL RBC 3.08 L (4.7-6.1) M/uL Hgb 10.6 L (14.0-18.0) g/dL Hct 32.3 L (42-52) % MCV 104.9 H (80-100) fL MCH 34.4 H (25-34) pg MCHC 32.8 (32-36) g/dL RDW Std Deviation 58.5 H (36.4-46.3) fL RDW Coeff of Jolanta 15.4 H (11.5-14.5) % Plt Count 123 L (130-400) K/uL MPV 9.4 (7.4-10.4) fL Immature Gran % (Auto) 0.3 % Neut % (Auto) 85.1 % Lymph % (Auto) 3.7 % [place] % (Auto) 10.5 % Eos % (Auto) 0.2 % Baso % (Auto) 0.2 % Neut # (Auto) 11.99 H (1.4-6.5) K/uL Lymph # (Auto) 0.52 L (1.2-3.4) K/uL [place] # (Auto) 1.48 H (0.11-0.59) K/uL Eos # (Auto) 0.03 (0-0.5) K/uL Baso # (Auto) 0.03 (0-0.2) K/uL Immature Gran # (Auto) 0.04 H (0.00-0.02) K/uL PT 11.4 (9.0-12.0) Seconds INR 1.1 (0.9-1.1) APTT 26.8 (21.0-31.0) Seconds PTT Ratio 1.0 Sodium (136-145) mmol/L Potassium (3.5-5.1) mmol/L Chloride (98-107) mmol/L Carbon Dioxide (21-32) mmol/L Anion Gap (3-11) BUN (7-18) mg/dl Creatinine (0.6-1.4) mg/dl Est Cr Clr Drug Dosing ml/min Est GFR ( Amer) Est GFR (Non-Af Amer) BUN/Creatinine Ratio (10-20) Glucose (70-99) mg/dl Lactate (0.4-2.0) mmol/L Calcium (8.5-10.1) mg/dl Magnesium (1.8-2.4) mg/dl Total Bilirubin (0.2-1) mg/dl AST (15-37) U/L ALT (12-78) U/L Alkaline Phosphatase (45-117) U/L Troponin I (0-0.045) ng/ml Total Protein (6.4-8.2) gm/dl Albumin (3.4-5.0) gm/dl Globulin (2.5-4.0) gm/dl Albumin/Globulin Ratio (0.9-2) Procalcitonin (0-0.5) ng/ml Influenza Type A (PCR) Neg for Influ A (Neg) Influenza Type B (PCR) Neg for Influ B (Neg) 05/05/20 05/05/20 05/05/20 Range/Units 14:52 14:52 14:52 WBC (4.8-10.8) K/uL RBC (4.7-6.1) M/uL Hgb (14.0-18.0) g/dL Hct (42-52) % MCV (80-100) fL MCH (25-34) pg MCHC (32-36) g/dL RDW Std Deviation (36.4-46.3) fL RDW Coeff of Jolanta (11.5-14.5) % Plt Count (130-400) K/uL MPV (7.4-10.4) fL Immature Gran % (Auto) % Neut % (Auto) % Lymph % (Auto) % [place] % (Auto) % Eos % (Auto) % Baso % (Auto) % Neut # (Auto) (1.4-6.5) K/uL Lymph # (Auto) (1.2-3.4) K/uL [place] # (Auto) (0.11-0.59) K/uL Eos # (Auto) (0-0.5) K/uL Baso # (Auto) (0-0.2) K/uL Immature Gran # (Auto) (0.00-0.02) K/uL PT (9.0-12.0) Seconds INR (0.9-1.1) APTT (21.0-31.0) Seconds PTT Ratio Sodium 134 L (136-145) mmol/L Potassium 5.4 H (3.5-5.1) mmol/L Chloride 100 (98-107) mmol/L Carbon Dioxide 28 (21-32) mmol/L Anion Gap 7.0 (3-11) BUN 35 H D (7-18) mg/dl Creatinine 9.42 H* D (0.6-1.4) mg/dl Est Cr Clr Drug Dosing 9.0 ml/min Est GFR ( Amer) 5.7 Est GFR (Non-Af Amer) 4.9 BUN/Creatinine Ratio 3.8 L (10-20) Glucose 84 (70-99) mg/dl Lactate 1.2 (0.4-2.0) mmol/L Calcium 9.6 (8.5-10.1) mg/dl Magnesium 1.9 (1.8-2.4) mg/dl Total Bilirubin 0.8 (0.2-1) mg/dl AST 17 (15-37) U/L ALT 30 (12-78) U/L Alkaline Phosphatase 89 (45-117) U/L Troponin I 0.060 H* (0-0.045) ng/ml Total Protein 6.9 (6.4-8.2) gm/dl Albumin 3.2 L (3.4-5.0) gm/dl Globulin 3.7 (2.5-4.0) gm/dl Albumin/Globulin Ratio 0.9 (0.9-2) Procalcitonin 0.60 H (0-0.5) ng/ml Influenza Type A (PCR) (Neg) Influenza Type B (PCR) (Neg) Administered Medications Discontinued Medications Acetaminophen (Tylenol) 1,000 mg PO NOW STA Stop: 05/05/20 13:12 Last Admin: 05/05/20 13:28 Dose: 1,000 mg Documented by: [id number] Albuterol (Ventolin Hfa) 6 puffs INH NOW ONE Stop: 05/05/20 13:12 Last Admin: 05/05/20 13:53 Dose: 6 puffs Documented by: [id number] Cefepime HCl (Maxipime) 2,000 mg in 20 mls @ 5 mls/min IV NOW STA; Protocol Stop: 05/05/20 13:08 Last Admin: 05/05/20 15:04 Dose: 5 mls/min Documented by: [id number] Discharge Plan Visit Data Chief Complaint: Shortness of Breath/Dyspnea Stated Complaint: SHORTNESS OF BREATTH ED Provider: Jake Arevalo Discharge Problem: Sepsis, Fever, Hypoxia, Breath shortness Forms Stand Alone Forms: [facility] Prescriptions Prescriptions: No Action atorvastatin 40 mg tablet 40 mg PO HS Qty: 90 RF: 3 omeprazole 20 mg tablet,delayed release (DR/EC) 20 mg PO QAM Qty: 90 RF: 3 acetaminophen 325 mg capsule 650 mg PO BID Qty: 30 RF: 0 Aranesp (in polysorbate) 40 mcg/mL solution 40 mcg subcut WEEKLY Qty: 4 RF: 0 sennosides-docusate sodium [Senokot-S] 8.6-50 mg tablet 1 tabcap PO DAILY PRN (Reason: constipation) Qty: 30 RF: 0 polyethylene glycol 3350 [Miralax] 17 gram/dose powder 17 gm PO DAILY PRN (Reason: constipation) Qty: 119 RF: 0 paroxetine HCl 20 mg tablet 20 mg PO HS Qty: 90 RF: 3 levothyroxine 88 mcg capsule 88 mcg PO DAILY Qty: 30 RF: 2 Lyrica 75 mg capsule 75 mg PO QAM Qty: 30 RF: 3 temazepam 15 mg capsule 30 mg PO HS PRN (Reason: Sleep) Qty: 60 RF: 0 amiodarone 200 mg tablet 200 mg PO Q OTHER DAY Qty: 14 RF: 3 Breo Ellipta 200-25 mcg/dose blister with device 1 inh INHALATION QAM Qty: 28 RF: 3 Spiriva with HandiHaler 18 mcg capsule, w/inhalation device 1 cap INHALATION QAM Qty: 30 RF: 4 alprazolam 0.5 mg tablet 0.5 mg PO BID PRN (Reason: anxiety) Qty: 20 RF: 0 azithromycin 500 mg Tablet 500 mg PO DIRECTED PRN (Reason: PRIOR TO DENTAL VISITS) RF: 0 famotidine 20 mg tablet 20 mg PO MOWEFR RF: 0 midodrine 5 mg tablet 5 mg PO TID RF: 0 aspirin [Aspirin Low Dose] 81 mg Tablet,Delayed Release (Dr/Ec) 81 mg PO DAILY RF: 0 Triphrocaps 1 mg capsule 1 mg PO DAILY RF: 0 albuterol sulfate 90 mcg/actuation Hfa Aerosol Inhaler 2 puff INHALATION Q6H PRN (Reason: Shortness Of Breath) RF: 0 calcium acetate(phosphat bind) 667 mg Capsule 667 mg PO TIDM RF: 0 albuterol sulfate 2.5 mg /3 mL (0.083 %) solution for nebulization 2.5 mg INH Q6H PRN (Reason: cough/wheeze/shortness of breath) Qty: 180 RF: 5 docusate sodium 100 mg capsule 100 mg PO HS RF: 0 clopidogrel 75 mg tablet 75 mg PO DAILY RF: 0 Discharge Problem: Sepsis Qualifiers: Sepsis type: sepsis due to unspecified organism Sepsis acute organ dysfunction status: unspecified Qualified Code(s): A41.9 - Sepsis, unspecified organism Fever Qualifiers: Fever type: unspecified Qualified Code(s): R50.9 - Fever, unspecified
--- NOTE | 2020-05-05 13:52 | XRay Report ---
SINGLE VIEW CHEST CLINICAL HISTORY: Sepsis. FINDINGS: An AP, portable, upright chest radiograph is compared to study dated 05/01/2020 and correlate d with chest CT dated 10/19/2019. The examination is degraded by portable technique and patient rotat ion. The patient is status post midline sternotomy and cardiac valve surgery. The heart is enlarged n oting atherosclerotic calcification of the thoracic aorta. There is mild pulmonary vascular congestio n. Small pleural effusions are suspected. Bibasilar opacities likely represent atelectasis. No pneumo thorax is seen. The skeletal structures are osteopenic. There are healed left-sided rib fractures. IMPRESSION: 1. Cardiomegaly with mild pulmonary vascular congestion. 2. Small pleural effusions are suspected. 3. Bibasilar opacities likely represent atelectasis. Clinical correlation will be required. ACT 112: Negative or not required by law. Electronically signed by: Walker Ellis M.D. 05/05/2020 1:51 PM
[2020-05-05 14:32] LABS: Influenza A virus by PCR Neg for Influ A (Neg); Influenza B virus by PCR Neg for Influ B (Neg)
[2020-05-05 15:05] LABS: Basophils # (auto) 0.03 K/uL (0-0.2); Basophils % (auto) 0.2 %; Eosinophils # (auto) 0.03 K/uL (0-0.5); Eosinophils % (auto) 0.2 %; Hematocrit (blood only) 32.3 % (42-52); Hemoglobin 10.6 g/dL (14.0-18.0); Immature Granulocytes # (auto) 0.04 K/uL (0.00-0.02); Immature Granulocytes % (auto) 0.3 %; Lymphocytes # (auto) 0.52 K/uL (1.2-3.4); Lymphocytes % (auto) 3.7 %; Mean Corpuscular Hemoglobin 34.4 pg (25-34); Mean Corpuscular Hgb Conc 32.8 g/dL (32-36); Mean Corpuscular Volume 104.9 fL (80-100); Mean Platelet Volume 9.4 fL (7.4-10.4); Monocytes # (auto) 1.48 K/uL (0.11-0.59); Monocytes % (auto) 10.5 %; Neutrophils # (auto) 11.99 K/uL (1.4-6.5); Neutrophils % (auto) 85.1 %; Platelet Count 123 K/uL (130-400); RDW Coefficient of Variation 15.4 % (11.5-14.5); RDW Standard Deviation 58.5 fL (36.4-46.3); Red Blood Count 3.08 M/uL (4.7-6.1); White Blood Count 14.09 K/uL (4.8-10.8)
[2020-05-05 15:15] LABS: INR 1.1 (0.9-1.1); Partial Thromboplastin Time 26.8 Seconds (21.0-31.0); Prothrombin Time 11.4 Seconds (9.0-12.0)
[2020-05-05 15:51] LABS: Albumin Level 3.2 gm/dl (3.4-5.0); Bilirubin,Total 0.8 mg/dl (0.2-1)
[2020-05-05 15:52] LABS: Albumin Globulin Ratio 0.9 (0.9-2); BUN Creatinine Ratio 3.8 (10-20); Calcium 9.6 mg/dl (8.5-10.1); Est GFR (African American) 5.7; Est GFR (Non-African American) 4.9; Globulin 3.7 gm/dl (2.5-4.0); Magnesium 1.9 mg/dl (1.8-2.4); Potassium 5.4 mmol/L (3.5-5.1); Total Protein 6.9 gm/dl (6.4-8.2); Troponin I 0.06 ng/ml (0-0.045)
[2020-05-05] MEDS ORDERED: ALBUTEROL HFA 8 GM INHALER INH PRN (19:27)
[2020-05-05] MEDS ORDERED: DOCUSATE SODIUM/SENNA 50/8.6MG TAB PO PRN (19:27)
[2020-05-05] MEDS ORDERED: ACETAMINOPHEN 325 MG TAB PO PRN (19:27)
[2020-05-05] MEDS ORDERED: ALBUTEROL 0.083% NEBU SOLN 3 ML VIAL INH PRN (19:27)
[2020-05-05] MEDS ORDERED: ONDANSETRON INJ 2 MG/ML 2 ML VIAL IV PRN (19:27)
[2020-05-05] MEDS ORDERED: POLYETHYLENE (MIRALAX) 17 GM PACK PO PRN (19:27)
[2020-05-05] MEDS ORDERED: ALPRAZolam 0.5 MG TABLET PO PRN (19:27)
[2020-05-05] MEDS ORDERED: MAGNESIUM HYDROXIDE SUSP 30 ML UDC PO PRN (19:27)
--- NOTE | 2020-05-05 20:13 | History & Physical Report ---
Date of Service May 05, 2020 Assessment & Plan (1) Fever: Temperature 100.8 F upon admission. Unclear source at this time. Main complaint is that of abdominal discomfort. We will cover with antibiotics for abdominal and source. Present on Admission?: Yes (2) Abdominal pain: Patient reports abdominal discomfort, and decreased ostomy output. Order CT abdomen pelvis without contrast to further assess. Present on Admission?: Yes (3) End stage renal disease on dialysis: Consult nephrology Present on Admission?: Yes (4) Hypertension: Continue usual medications for now. Present on Admission?: Yes Admission and Anticipated Discharge Date Admission Date: May 05, 2020 History of Present Illness Chief Complaint: The patient reports that he went home from the hospital yesterday, had some upset stomach, and did not take any of his medications and did not eat or drink anything. Primary Care Provider: Emil Lazcano MD The patient is a 74-year-old male with a past medical history including ESRD on HD, COPD, hypertension, generalized weakness, memory loss, ileostomy, aspiration pneumonia, hypothyroidism, CAD, anemia chronic disease, status post CABG x2, status post MVR, status post AAA repair, status post femoropopliteal bypass surgery, status post DVT and atrial fibrillation. He was most recently admitted to [facility] from 05/02-05/04 due to issues with fluid overload and difficulty with dialysis. When he returned home, he reports that he got some stomach upset, and did not take any of his routine medications or drink any liquids or eat any solids, and presented to the emergency department today. Allergies Allergy/AdvReac Type Severity Reaction Status Date / Time oxycodone AdvReac Severe DELIRIUM Verified 05/05/20 13:31 gabapentin AdvReac Unknown Nausea Verified 05/05/20 13:31 tramadol AdvReac Unknown dizziness;a Verified 05/05/20 13:31 nxiety;sob Home Medications Home Medications Medication Instructions Recorded Confirmed Type albuterol sulfate 2 puff INHALATION Q6H PRN 08/23/18 05/05/20 History calcium acetate(phosphat bind) 667 mg PO TIDM 08/23/18 05/05/20 History azithromycin 500 mg PO DIRECTED PRN 08/30/18 05/05/20 History albuterol sulfate 2.5 mg INH Q6H PRN #180 ml 05/26/19 05/05/20 Rx alprazolam 0.5 mg tablet 0.5 mg PO BID PRN #20 tab 05/31/19 05/05/20 Rx docusate sodium 100 mg capsule 100 mg PO HS 05/31/19 05/05/20 History atorvastatin 40 mg tablet 40 mg PO HS #90 tab 10/05/19 05/05/20 Rx omeprazole 20 mg tablet,delayed 20 mg PO QAM #90 tab 10/05/19 05/05/20 Rx release famotidine 20 mg PO MOWEFR 10/17/19 05/05/20 History midodrine 5 mg PO TID 11/21/19 05/05/20 History acetaminophen 325 mg capsule 650 mg PO BID #30 cap 11/22/19 05/05/20 Rx darbepoetin lilly in polysorbat 40 40 mcg SUBCUT WEEKLY #4 ml 11/22/19 05/05/20 Rx mcg/mL in polysorbate injection polyethylene glycol 3350 17 17 gm PO DAILY PRN #119 gm 11/22/19 05/05/20 Rx gram/dose oral powder sennosides 8.6 mg-docusate sodium 1 tabcap PO DAILY PRN #30 tab 11/22/19 0 Rx 50 mg tablet paroxetine HCl 20 mg tablet 20 mg PO HS #90 tab 12/12/19 05/05/20 Rx clopidogrel 75 mg PO DAILY 12/24/19 05/05/20 History levothyroxine 88 mcg capsule 88 mcg PO DAILY #30 cap 01/10/20 05/05/20 Rx pregabalin 75 mg capsule 75 mg PO QAM #30 cap 01/13/20 05/05/20 Rx temazepam 15 mg capsule 30 mg PO HS PRN #60 cap 01/20/20 05/05/20 Rx amiodarone 200 mg tablet 200 mg PO Q OTHER DAY #14 tab 02/16/20 05/05/20 Rx fluticasone furoate 200 1 inh INHALATION QAM #28 ea 03/15/20 05/05/20 Rx mcg-vilanterol 25 mcg/dose inhalation powder tiotropium bromide 18 mcg capsule 1 cap INHALATION QAM #30 puffs 03/21/20 05/05/20 Rx with inhalation device Triphrocaps 1 mg PO DAILY 05/01/20 05/05/20 History aspirin [Aspirin Low Dose] 81 mg PO DAILY 05/01/20 05/05/20 History Past Med/Surg History Social History Preferred Language: Luxembourgish Communication Ability: Effective Visual Impairment: No Limitations Child Welfare Specialist Required: No Beliefs That Will Affect Care: None marital status: / marital status details: 1 daughter Current Living Situation: Family Current Living Situation Comment: sister 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 Feels Safe at Home: Yes Smoking Status: Former smoker Tobacco Type: cigarettes ; Second Hand Exposure: No ; Hx Alcohol Use: No Hx Substance Use: No Review of Systems Review of Systems: The patient denies chest pain, palpitations, cough, lower extremity swelling, sore throat, fevers, chills, sweats, nausea, vomiting, blood in urine or stool, dysuria, urinary frequency or urgency, lightheadedness, dizziness, headache, memory loss, loss of consciousness, rash, abnormal bruising or bleeding, imbalance, focal or generalized weakness, numbness or tingling in arms or legs, generalized arthralgias or myalgias, back or neck pain, or night sweats. The review of systems is otherwise negative other than for that already noted above, and at least 10 systems have been reviewed. Physical Exam Physical Exam: The patient is awake, alert and oriented 3, looks chronically ill, normocephalic and atraumatic, lying in bed and in no acute distress. HEENT--PERRL, EOMI, mucous membranes and oropharynx dry. Neck--supple. No JVD. No bruits. Thyroid normal, trachea midline, no adenopathy. Heart--normal S1 and S2. No murmurs, rubs or gallops. Lungs--clear bilaterally, no respiratory distress, no accessory muscle use. Abdomen--normal bowel sounds and soft. Nontender. Nondistended. Ostomy with stool. Extremities--no cyanosis or clubbing. No edema. Transmetatarsal amputation of right foot Dermatologic--normal skin turgor, normal color, no abnormal lymph nodes, no rash. Neurologic--cranial nerves II through XII grossly intact. Rheumatologic--normal range of motion. Psychiatric--normal affect. Results & Data Results & Data ([facility]) Vital Signs (Past 12 Hours) Vital Signs Temp Pulse Resp BP Pulse Ox 05/05/20 18:00 74 25 H 153/76 H 99 05/05/20 17:30 71 26 H 123/82 100 05/05/20 17:01 75 21 152/65 H 95 05/05/20 16:30 73 25 H 134/61 100 05/05/20 16:00 75 19 133/53 L 97 05/05/20 15:30 72 20 130/52 L 98 05/05/20 15:15 100.8 F H 05/05/20 15:07 76 20 117/61 96 05/05/20 14:10 83 16 96 05/05/20 14:01 83 96 05/05/20 14:00 83 14 145/73 H 97 05/05/20 13:30 90 22 154/70 H 98 05/05/20 13:09 94 H 27 H 97 05/05/20 13:08 92 05/05/20 13:00 94 H 26 H 158/85 H 97 05/05/20 12:58 102.0 F H 98 H 28 H 171/106 H 88 L 05/05/20 12:53 96 H 17 171/106 H 95 Laboratory Results Laboratory Results WBC 14.09 K/uL (4.8-10.8) H 05/05/20 14:52 RBC 3.08 M/uL (4.7-6.1) L 05/05/20 14:52 Hgb 10.6 g/dL (14.0-18.0) L 05/05/20 14:52 Hct 32.3 % (42-52) L 05/05/20 14:52 MCV 104.9 fL (80-100) H 05/05/20 14:52 MCH 34.4 pg (25-34) H 05/05/20 14:52 MCHC 32.8 g/dL (32-36) 05/05/20 14:52 RDW Std Deviation 58.5 fL (36.4-46.3) H 05/05/20 14:52 RDW Coeff of Jolanta 15.4 % (11.5-14.5) H 05/05/20 14:52 Plt Count 123 K/uL (130-400) L 05/05/20 14:52 MPV 9.4 fL (7.4-10.4) 05/05/20 14:52 Immature Gran % (Auto) 0.3 % 05/05/20 14:52 Neut % (Auto) 85.1 % 05/05/20 14:52 Lymph % (Auto) 3.7 % 05/05/20 14:52 [place] % (Auto) 10.5 % 05/05/20 14:52 Eos % (Auto) 0.2 % 05/05/20 14:52 Baso % (Auto) 0.2 % 05/05/20 14:52 Neut # (Auto) 11.99 K/uL (1.4-6.5) H 05/05/20 14:52 Lymph # (Auto) 0.52 K/uL (1.2-3.4) L 05/05/20 14:52 [place] # (Auto) 1.48 K/uL (0.11-0.59) H 05/05/20 14:52 Eos # (Auto) 0.03 K/uL (0-0.5) 05/05/20 14:52 Baso # (Auto) 0.03 K/uL (0-0.2) 05/05/20 14:52 Immature Gran # (Auto) 0.04 K/uL (0.00-0.02) H 05/05/20 14:52 PT 11.4 Seconds (9.0-12.0) 05/05/20 14:52 INR 1.1 (0.9-1.1) 05/05/20 14:52 APTT 26.8 Seconds (21.0-31.0) 05/05/20 14:52 PTT Ratio 1.0 05/05/20 14:52 Sodium 134 mmol/L (136-145) L 05/05/20 14:52 Potassium 5.4 mmol/L (3.5-5.1) H 05/05/20 14:52 Chloride 100 mmol/L (98-107) 05/05/20 14:52 Carbon Dioxide 28 mmol/L (21-32) 05/05/20 14:52 Anion Gap 7.0 (3-11) 05/05/20 14:52 BUN 35 mg/dl (7-18) H D 05/05/20 14:52 Creatinine 9.42 mg/dl (0.6-1.4) H* D 05/05/20 14:52 Est Cr Clr Drug Dosing 9.0 ml/min 05/05/20 14:52 Est GFR ( Amer) 5.7 05/05/20 14:52 Est GFR (Non-Af Amer) 4.9 05/05/20 14:52 BUN/Creatinine Ratio 3.8 (10-20) L 05/05/20 14:52 Glucose 84 mg/dl (70-99) 05/05/20 14:52 Lactate 1.2 mmol/L (0.4-2.0) 05/05/20 14:52 Calcium 9.6 mg/dl (8.5-10.1) 05/05/20 14:52 Magnesium 1.9 mg/dl (1.8-2.4) 05/05/20 14:52 Total Bilirubin 0.8 mg/dl (0.2-1) 05/05/20 14:52 AST 17 U/L (15-37) 05/05/20 14:52 ALT 30 U/L (12-78) 05/05/20 14:52 Alkaline Phosphatase 89 U/L (45-117) 05/05/20 14:52 Troponin I 0.060 ng/ml (0-0.045) H* 05/05/20 14:52 Total Protein 6.9 gm/dl (6.4-8.2) 05/05/20 14:52 Albumin 3.2 gm/dl (3.4-5.0) L 05/05/20 14:52 Globulin 3.7 gm/dl (2.5-4.0) 05/05/20 14:52 Albumin/Globulin Ratio 0.9 (0.9-2) 05/05/20 14:52 Procalcitonin 0.60 ng/ml (0-0.5) H 05/05/20 14:52 Influenza Type A (PCR) Neg for Influ A (Neg) 05/05/20 13:30 Influenza Type B (PCR) Neg for Influ B (Neg) 05/05/20 13:30 Diagnostic Findings [facility], [place] [phone] XRay Report Patient: RAMA AYERS Date: 05/05/20 MR#: [id number]: [address] Acct ID:[id number]: [facility] Zip[facility] [place] [address] Age: 74Location: ED Sex: M Room/Bed: Att Phy:Diagnosis: SHORTNESS OF BREATTH Abigail Phy: Pro Emil W., MDService Date: 05/05/20 Fam Phy:Interpreting Phy: Walker Ellis MD Admit Phy: Ordering Phy: Jake Arevalo, DO cc: ~ SINGLE VIEW CHEST CLINICAL HISTORY: Sepsis. FINDINGS: An AP, portable, upright chest radiograph is compared to study dated 05/01/2020 and correlated with chest CT dated 10/19/2019. The examination is degraded by portable technique and patient rotation. The patient is status post midline sternotomy and cardiac valve surgery. The heart is enlarged noting atherosclerotic calcification of the thoracic aorta. There is mild pulmonary vascular congestion. Small pleural effusions are suspected. Bibasilar opacities likely represent atelectasis. No pneumothorax is seen. The skeletal structures are osteopenic. There are healed left-sided rib fractures. IMPRESSION: 1. Cardiomegaly with mild pulmonary vascular congestion. 2. Small pleural effusions are suspected. 3. Bibasilar opacities likely represent atelectasis. Clinical correlation will be required. ACT 112: Negative or not required by law. Electronically signed by: Walker Ellis M.D. 05/05/2020 1:51 PM Dictated: 05/05/20 1350 Transcribed: 05/05/20 1350 Code Status & VTE Plan Code Status Full code VTE Prophylaxis Plan VTE Prophylaxis will be ordered: Yes PG Care Time/CCT Total # of Minutes Spent Total Time Spent with Patient: Total time spent is greater than 50% in coordination of care (as documented) at patient's floor/unit and/or counseling patient: Coding Level of Care Code 40034 Initial Inpt Care Lvl 3 Diagnoses Fever R50.9 Fever type: unspecified Abdominal pain R10.9 End stage renal disease on dialysis N18.6; Z99.2 Hypertension I10 (1) Fever Fever type: unspecified Qualified Code(s): R50.9 - Fever, unspecified
[2020-05-05] MEDS ORDERED: PREGABALIN 75 MG CAP PO PRN (20:32)
--- NOTE | 2020-05-05 20:55 | CT Scan Report ---
CT SCAN OF THE ABDOMEN AND PELVIS WITHOUT IV CONTRAST CLINICAL HISTORY: Febrile illness. Generalized abdominal pain. Decreased ostomy output. COMPARISON STUDY: Abdominal CT dated 04/28/2019. TECHNIQUE: CT scan of the abdomen and pelvis is performed from the lung bases to the proximal femora. Images are reviewed in the axial, sagittal, and coronal planes. IV contrast was not administered for this examination as per the referring clinician. Note that the examination was performed in suboptim al fashion without oral and IV contrast. A dose lowering technique was utilized adhering to the [facility] of [place]. CT DOSE: 1060.70 mGycm FINDINGS: Lung bases: The patient is status post midline sternotomy and cardiac valve surgery. The heart is enl arged and without pericardial effusion. The coronary arteries are densely calcified. There is diminis hed attenuation of the cardiac blood pool as compared to the myocardium suggesting anemia. A small hi atal hernia is noted. Atelectasis/scarring at the lung bases (right greater than left) is similar to previous. No airspace consolidation is seen typical for pneumonia and there is no pleural effusion. Liver: The unenhanced liver is normal in size, contour, and attenuation. There is mild central intrah epatic biliary ductal dilatation. Gallbladder: Surgically absent noting clips in the gallbladder fossa. Spleen: Normal in size and attenuation. 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 Pancreas: The unenhanced pancreas is moderately atrophic and grossly unremarkable. Adrenal glands: Unremarkable. Kidneys: The unenhanced kidneys are atrophic and without hydronephrosis. There are numerous bilateral renal vascular calcifications. Small nonobstructing renal calculi are not excluded. No ureteral ston e is seen. Numerous bilateral renal cysts measure up to 3.9 cm. Abdominal vasculature: There is advanced atherosclerotic calcification of the abdominal aorta. An aor tobiiliac stent graft is in place. There is no significant residual aneurysm sac. 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 A r ectosigmoid stump is noted in the pelvis. No bowel obstruction is seen. Peritoneum: There is no intraperitoneal free air or abdominal ascites. There is laxity of the ventral abdominal wall with protrusion of bowel loops. Lymphadenopathy: None. Pelvic viscera: The prostate gland is enlarged and heterogeneous noting median lobe hypertrophy. The bladder wall is thickened and trabeculated indicating chronic outlet obstruction. There are bilateral fat-containing inguinal hernias. Skeletal structures: The skeletal structures are osteopenic. There is moderate to advanced lumbosacra l spondylosis. There is a chronic compression deformity of L2. No lytic or blastic lesions are seen. There are healed left-sided rib fractures. IMPRESSION: 1. There are no acute infectious or inflammatory findings in the abdomen or pelvis. 2. Again seen is postoperative change from subtotal colectomy with right lower quadrant ileostomy. No bowel obstruction is identified. 3. Cardiomegaly. 4. Additional findings as above. ACT 112: Negative or not required by law. Electronically signed by: Walker Ellis M.D. 05/05/2020 8:54 PM
[2020-05-05] MEDS: PARoxetine HCL 20 MG TAB PO SCH (21:13)
[2020-05-05] MEDS: ACETAMINOPHEN 325 MG TAB PO SCH (21:13)
[2020-05-05] MEDS: ATORVASTATIN 40 MG TAB PO SCH (21:13)
[2020-05-05] MEDS: DOCUSATE SODIUM 100 MG CAP PO SCH (21:13)
[2020-05-05] MEDS: MIDODRINE HCL 2.5 MG TAB PO SCH (21:13)
[2020-05-05] MEDS: CALCIUM ACETATE 667 MG CAP/TAB PO SCH (21:13)
[2020-05-06] MEDS: LEVOTHYROXINE SODIUM 88 MCG TABLET PO SCH (05:37)
[2020-05-06] MEDS: MIDODRINE HCL 2.5 MG TAB PO SCH ×3 (09:23→18:15)
[2020-05-06] MEDS: CALCIUM ACETATE 667 MG CAP/TAB PO SCH ×3 (09:23→18:15)
[2020-05-06] MEDS: ASPIRIN 81 MG ECTAB PO SCH (09:23)
[2020-05-06] MEDS: NEPHROCAPS PO SCH (09:23)
[2020-05-06] MEDS: PANTOprazole 40 MG TAB PO SCH (09:23)
[2020-05-06] MEDS: PREGABALIN 75 MG CAP PO SCH (09:24)
[2020-05-06] MEDS: AMIODARONE 200 MG TAB PO SCH (09:24)
[2020-05-06] MEDS: ACETAMINOPHEN 325 MG TAB PO SCH ×2 (09:24→21:48)
[2020-05-06] MEDS: CLOPIDOGREL BISULFATE 75 MG TAB PO SCH (09:24)
[2020-05-06] MEDS: FLUTICASONE/VILANTEROL 200/25MCG 14 PUFFS/INHALER INH SCH (09:25)
[2020-05-06] MEDS: UMECLIDINIUM BROMIDE 62.5MCG/BLISTER 7 PUFFS/INHALER INH SCH (09:25)
--- NOTE | 2020-05-06 12:30 | Electrocardiogram Report ---
Test Reason : Blood Pressure : / mmHG Vent. Rate : 087 BPM Atrial Rate : 087 BPM P-R Int : 232 ms QRS Dur : 104 ms QT Int : 382 ms P-R-T Axes : 052 052 076 degrees QTc Int : 459 ms Sinus rhythm with 1st degree A-V block Nonspecific ST abnormality Abnormal ECG When compared with ECG of 01-MAY-2020 21:26, No significant change was found Confirmed by Jose David Seaman ([id number]) on 05/06/2020 12:30:15 PM Referred By: REFERRED SELF Confirmed By:Jose David Seaman
--- NOTE | 2020-05-06 12:56 | Hospitalist Progress Note ---
Date of Service May 06, 2020 Assessment & Plan (1) Fever: Temperature 100.8 F upon admission, none since Unclear source at this time. Main complaint is that of abdominal discomfort. We will cover with antibiotics for abdominal and source. CXR with bibasilar opacities, ?? PNA--continue to monitor on abx Flu swab neg COVID testing pending (2) Abdominal pain: Patient reports abdominal discomfort, and decreased ostomy output. CTAP neg for acute issue Improving on abx (3) End stage renal disease on dialysis: Consult nephrology (4) Hypertension: Continue usual medications for now. Admission and Anticipated Discharge Date Admission Date: May 05, 2020 Subjective Pt states he is still having some nausea, but it is much better. No emesis hx. He just finished lunch and ate his entire lunch. His SOB is stable. Pt denies fever, chest pain, abd pain, c/d, LE pain or swelling. Review of Systems Review of Systems: Pertinent positives and negatives reviewed in HPI--all others negative Physical Exam Constitutional: WD/WN, vitals as above Eyes: normal visual quiros by confrontation and + anicteric sclerae Neck: normal visual inspection and trachea midline Respiratory: normal respiratory effort, lungs clear to auscultation Cardiovascular: Rate/Rhythm: regular rate and regular rhythm Gastrointestinal (Abdomen): Inspection/Auscultation: abdomen not distended Percussion/Palpation: abdomen soft; abdomen nontender Musculoskeletal: Head/Neck/Chest: normocephalic and head atraumatic negative for edema, peripheral pulses intact Skin: no rashes, warm and dry Neurologic: awake; not confused Speech / Cognition: normal speech Psychiatric: A+Ox3, euthymic affect Results & Data Results & Data ([facility]) Vital Signs (Past 12 Hours) Vital Signs Temp Pulse Resp BP Pulse Ox 05/06/20 09:21 37.1 C 72 20 144/71 H 93 PG Care Time/CCT Total # of Minutes Spent Total Time Spent with Patient: Total time spent is greater than 50% in coordination of care (as documented) at patient's floor/unit and/or counseling patient: Coding Level of Care Code 73520 Subseq Hosp Care Lvl 3 Diagnoses Fever R50.9 Fever type: unspecified Abdominal pain R10.9 End stage renal disease on dialysis N18.6; Z99.2 Hypertension I10 (1) Fever Fever type: unspecified Qualified Code(s): R50.9 - Fever, unspecified
--- NOTE | 2020-05-06 17:08 | Consultation Report ---
DATE OF CONSULTATION: 05/06/2020 NEPHROLOGY CONSULTATION REASON FOR CONSULT: Dialysis patient admitted with fever and abdominal pain. HISTORY OF PRESENT ILLNESS: The patient is a 74-year-old male with end-stage renal disease on chronic hemodialysis Thursday, Thursday, Thursday as well as history of congestive heart failure and COPD, who presented to the hospital yesterday because of abdominal pain. He was found to have fever of 101 degree Fahrenheit. It is worth noting the patient was actually discharged after a hospital stay from 05/02/2020-05/04/2020 due to issues with fluid overload and difficulty with dialysis. So, basically he presented 1 day after his hospital discharge. At this time, he is also being ruled out for COVID-19 and the test is pending. HOME MEDICATIONS: List is very extensive and was reviewed in detail and is as per H and P. ALLERGIES: List reviewed in detail. PAST MEDICAL AND SURGICAL HISTORY: ESRD on hemodialysis, COPD, hypertension, ileostomy status, aspiration pneumonia, hypothyroidism, coronary artery disease status post CABG x2, status post MVR, status post AAA repair, status post fem-pop bypass surgery, status post DVT and atrial fibrillation. SOCIAL HISTORY: He is a , lives with his sister. Former smoker, no alcohol. REVIEW OF SYSTEMS: Detailed in HPI. A 12 systems reviewed and negative. The positive review of system included nausea, abdominal discomfort and fever. PHYSICAL EXAMINATION: GENERAL: Elderly white male who is awake, alert, oriented x3. HEENT: Mucous membranes moist. NECK: Supple. No jugular venous distention. CHEST: Bilaterally clear to auscultation. CARDIOVASCULAR: S1, S2, regular. ABDOMEN: Soft, nontender. Ileostomy site present and looks clean. EXTREMITIES: Shows trace edema with features of venous insufficiency. VITAL SIGNS: Blood pressure 144/71, pulse 72, temperature 37.1, 93% on 2-liter nasal cannula. LABORATORY TESTS: Blood work from this morning shows sodium 134, potassium 5.4, BUN 35, creatinine 9.4, albumin 3.2. ASSESSMENT AND PLAN: A 74-year-old male with end-stage renal disease, on chronic hemodialysis with cardiac as well as pulmonary history, now presenting with abdominal discomfort and has fever. He is being ruled out for COVID test, but is pending at this time. End-stage renal disease: His dialysis day is tomorrow and we will do him for 4 hours on a 2K bath. He says he has significant problem with dialysis and gets hypotension. He normally gets midodrine with dialysis both at the start as well as nursing home. We will do the same tomorrow. We will try to take as much as we can. Last dialysis on Thursday, we took about 2.3 kilo. We will aim for 2.5 tomorrow.
[2020-05-06] MEDS: ATORVASTATIN 40 MG TAB PO SCH (21:49)
[2020-05-06] MEDS: DOCUSATE SODIUM 100 MG CAP PO SCH (21:49)
[2020-05-06] MEDS: PARoxetine HCL 20 MG TAB PO SCH (21:49)
[2020-05-07 00:42] LABS: Appearance Urine Turbid (Clear); Color Urine Brown; Specific Gravity Urine 1.021 (1.000-1.030); Sulfosalicylic Acid Urine Positive (Negative)
[2020-05-07 00:43] LABS: Protein Urine Positive (Negative)
[2020-05-07 00:46] LABS: RBC Urine Automated >30 /hpf (0-4); WBC Urine Automated >30 /hpf (0-5)
[2020-05-07 00:47] LABS: Amorphous Sediment Urine Present (None Prsent); Bacteria Urine Automated 1+ (Negative)
[2020-05-07] MEDS: LEVOTHYROXINE SODIUM 88 MCG TABLET PO SCH (05:43)
[2020-05-07] MEDS: FLUTICASONE/VILANTEROL 200/25MCG 14 PUFFS/INHALER INH SCH (08:27)
[2020-05-07] MEDS: MIDODRINE HCL 2.5 MG TAB PO SCH ×3 (08:27→16:42)
[2020-05-07] MEDS: CALCIUM ACETATE 667 MG CAP/TAB PO SCH ×3 (08:27→16:42)
[2020-05-07] MEDS: NEPHROCAPS PO SCH (08:28)
[2020-05-07] MEDS: ASPIRIN 81 MG ECTAB PO SCH (08:28)
[2020-05-07] MEDS: PREGABALIN 75 MG CAP PO SCH (08:28)
[2020-05-07] MEDS: UMECLIDINIUM BROMIDE 62.5MCG/BLISTER 7 PUFFS/INHALER INH SCH (08:28)
[2020-05-07] MEDS: FAMOTIDINE 20 MG TAB PO SCH (08:29)
[2020-05-07] MEDS: PANTOprazole 40 MG TAB PO SCH (08:29)
[2020-05-07] MEDS: ACETAMINOPHEN 325 MG TAB PO SCH ×2 (08:29→21:20)
[2020-05-07] MEDS ORDERED: SODIUM CHLORIDE 0.9% 1000ML 1,000 ML IV PRN (08:41)
[2020-05-07] MEDS ORDERED: HEPARIN SOD (PORCINE) 1000 UNIT/ML 10 ML VIAL IV ONE (08:41)
--- NOTE | 2020-05-07 09:09 | Hospitalist Progress Note ---
Date of Service May 07, 2020 Assessment & Plan (1) Fever: Temperature 100.8 F upon admission, none since Unclear source at this time. Main complaint is that of abdominal discomfort. objectively has sob Flu swab neg COVID testing pending (2) Abdominal pain: Patient reports abdominal discomfort, and now normalized ostomy output. CT abdomen/pelvis 05/05/20 IMPRESSION: 1. There are no acute infectious or inflammatory findings in the abdomen or p sloan. 2. Again seen is postoperative change from subtotal colectomy with right lower quadrant ileostomy. No bowel obstruction is identified. 3. Cardiomegaly. (3) End stage renal disease on dialysis: Consult nephrology (4) Anemia, chronic renal failure: this is anemia of chronic disease, the pt has relatively stable hgb but not in the range to cause sob (5) CAD (coronary artery disease): Pt has cad and afib, remains on aspirin, amiodarone and atorvastatin, blood pressure is limited and pt may need midodrine to support bp around dialysis (6) Shortness of breath: pt with shortness of breath that is multifactoral from fluid overload which will be treated with dialysis, with diagnosis of COPD will increase inhalation therapy, will not use steroids at this time unless it becomes more clear that this is driven by COPD, will also check echo to see if pulmonary htn maybe a bigger role in his symptom complex (7) DVT prophylaxis: heparin Admission and Anticipated Discharge Date Admission Date: May 05, 2020 Subjective this pt states he feels better than on presentation but he is still feeling not his usual self and remains tachypneic but is pre dialysis treatment Review of Systems Review of Systems: Mild distress and fatigue no headache, blurry or double vision no speech or swallowing issues no chest pain, pressure or palpitations continues with shortness of breath, but no cough or wheezes no abdominal pain, nausea or vomiting, diarrhea or constipation no dysuria, hematuria or frequency no focal joint pain, persistent peripheral swelling no back pain, CVA tenderness or radicular pain no bruising, bleeding or rashes no focal signs of weakness or numbness or altered sensation globally feels weakened and ill no complaints or anxiety or depression. Physical Exam Physical Exam: The patient appeared chronically ill, was easily tachypneic. Vital signs as documented. Head exam is normocephalic atraumatic no scleral icterus Neck is without JVD, thyromegaly, or carotid bruits. Lungs are decreased at the bases, no focal loss coarse overall Cardiac exam, Rhythm is regular.. systolic murmur, rubs or gallops. Abdominal exam reveals normal bowel sounds, soft non tender, no masses Extremities are moderatley edematous and both pedal pulses are normal. Neurologic exam is alert and oriented, no focal loss of strength or sensation Skin is without bruises or rashes Psychologically is without concerns for anxiety or depression Results & Data Results & Data ([facility]) Vital Signs (Past 12 Hours) Vital Signs Temp Pulse Pulse Resp BP Pulse Ox Pulse Ox 05/07/20 08:22 97.7 F 64 18 137/60 97 05/06/20 23:44 97.6 F 66 12 155/77 H 95 05/06/20 23:30 95 PG Care Time/CCT Total # of Minutes Spent Total Time Spent with Patient: Total time spent is greater than 50% in coordination of care (as documented) at patient's floor/unit and/or counseling patient: Coding Level of Care Code 06152 Subseq Hosp Care Lvl 3 Diagnoses Fever R50.9 Fever type: unspecified Abdominal pain R10.9 End stage renal disease on dialysis N18.6; Z99.2 Anemia, chronic renal failure N18.9; D63.1 Chronic kidney disease stage: unspecified stage CAD (coronary artery disease) I25.10 Coronary Disease-Associated Artery/Lesion type: [place] artery [place] vs. transplanted heart: [place] heart Associated angina: without angina Shortness of breath R06.02 DVT prophylaxis Z29.9 (1) Fever Fever type: unspecified Qualified Code(s): R50.9 - Fever, unspecified (2) Anemia, chronic renal failure Chronic kidney disease stage: unspecified stage Qualified Code(s): N18.9 - Chronic kidney disease, unspecified; D63.1 - Anemia in chronic kidney disease (3) CAD (coronary artery disease) Coronary Disease-Associated Artery/Lesion type: [place] artery [place] vs. transplanted heart: [place] heart Associated angina: without angina Qualified Code(s): I25.10 - Atherosclerotic heart disease of [place] coronary artery without angina pectoris
[2020-05-07 10:15] LABS: Hematocrit (blood only) 28.7 % (42-52); Hemoglobin 9.6 g/dL (14.0-18.0); Mean Corpuscular Volume 101.8 fL (80-100); RDW Coefficient of Variation 15.3 % (11.5-14.5); RDW Standard Deviation 57.2 fL (36.4-46.3); Red Blood Count 2.82 M/uL (4.7-6.1); White Blood Count 9.09 K/uL (4.8-10.8)
[2020-05-07] MEDS: CLOPIDOGREL BISULFATE 75 MG TAB PO SCH (10:22)
[2020-05-07 10:34] LABS: Mean Corpuscular Hgb Conc 33.4 g/dL (32-36)
[2020-05-07 10:35] LABS: Mean Platelet Volume 9.3 fL (7.4-10.4); Platelet Count 97 K/uL (130-400)
[2020-05-07 10:36] LABS: Basophils # (auto) 0.04 K/uL (0-0.2); Basophils % (auto) 0.4 %; Eosinophils # (auto) 0.35 K/uL (0-0.5); Eosinophils % (auto) 3.9 %; Immature Granulocytes # (auto) 0.03 K/uL (0.00-0.02); Immature Granulocytes % (auto) 0.3 %; Lymphocytes # (auto) 0.72 K/uL (1.2-3.4); Lymphocytes % (auto) 7.9 %; Monocytes # (auto) 1.38 K/uL (0.11-0.59); Monocytes % (auto) 15.2 %; Neutrophils # (auto) 6.57 K/uL (1.4-6.5); Neutrophils % (auto) 72.3 %; Platelet Estimate Decreased (Normal)
[2020-05-07 10:44] LABS: BUN Creatinine Ratio 4.5 (10-20); Calcium 8.9 mg/dl (8.5-10.1); Creatinine Clr Calc Pharmacy 5.9 ml/min; Est GFR (African American) 3.4; Est GFR (Non-African American) 2.9; Potassium 5.4 mmol/L (3.5-5.1)
[2020-05-07] MEDS: HEPARIN SOD (PORCINE) 1000 UNIT/ML 10 ML VIAL IV SCH ×3 (11:10→13:10)
--- NOTE | 2020-05-07 15:24 | Dialysis Progress Note ---
Date of Service May 07, 2020 Assessment & Plan (1) End stage renal disease on dialysis: on MWF HD with mild volume overload. for routine dialysis today with goal of 2.5 L off > more than we usually do but he is overloaded with hypoxia and XR appearance and (for him even on midodrine) relative HTN. chemistries ok - on 2K bath today -next HD 05/09 as inpt or outpt -for now cont midodrine Present on Admission?: Yes Subjective seen on dialysis at about 1330; tolerating tx; remains on 02NC; no N. no further F. c/o diminished ostomy output and intermittent abd pain Review of Systems Review of Systems: All systems reviewed & are unremarkable except as noted in HPI & below Physical Exam Constitutional: well developed and well nourished; no acute distress Eyes: EOM intact bilaterally ENMT: Ears: no external ear abnormality Nose: no external nose abnormality Mouth: + dry oral mucous membranes Neck: no nuchal rigidity Respiratory: normal respiratory effort Auscultation: + diminished lung sounds Cardiovascular: Rate/Rhythm: regular rate and regular rhythm Extremities: + edema (trace indurated) Gastrointestinal (Abdomen): Inspection/Auscultation: normal bowel sounds Percussion/Palpation: abdomen soft; abdomen nontender ostomy present Musculoskeletal: Extremities: strength 5/5 throughout Skin: no rashes, warm and dry Neurologic: tompkins, fluent speech, no tremor Results & Data Vital Signs (Past 12 Hours) Vital Signs Temp Pulse Pulse Pulse Resp BP BP 05/07/20 14:40 36.4 C L 60 128/67 05/07/20 14:00 59 L 118/55 L 05/07/20 13:40 56 L 124/65 05/07/20 13:20 56 L 126/67 05/07/20 13:00 58 L 120/60 05/07/20 12:40 52 L 124/54 L 05/07/20 12:20 57 L 114/68 05/07/20 12:00 56 L 121/64 05/07/20 11:40 60 134/59 L 05/07/20 11:20 57 L 118/62 05/07/20 11:00 54 L 116/60 05/07/20 10:40 60 129/73 05/07/20 10:20 46 L 109/57 L 05/07/20 09:40 36.8 C 63 05/07/20 08:22 36.5 C 64 18 137/60 Pulse Ox 05/07/20 14:40 05/07/20 14:00 05/07/20 13:40 05/07/20 13:20 05/07/20 13:00 05/07/20 12:40 05/07/20 12:20 05/07/20 12:00 05/07/20 11:40 05/07/20 11:20 05/07/20 11:00 05/07/20 10:40 05/07/20 10:20 05/07/20 09:40 05/07/20 08:22 97 Laboratory Results 05/07/20 10:05 05/07/20 10:05
[2020-05-07] MEDS ORDERED: HEPARIN SOD 5,000 UNIT/0.5 ML VIAL SQ SCH (21:00)
[2020-05-07] MEDS: ATORVASTATIN 40 MG TAB PO SCH (21:18)
[2020-05-07] MEDS: DOCUSATE SODIUM 100 MG CAP PO SCH (21:18)
[2020-05-07] MEDS: PARoxetine HCL 20 MG TAB PO SCH (21:19)
[2020-05-07] MEDS: TEMAZEPAM 15 MG CAPSULE PO PRN (22:32)
[2020-05-08] MEDS: LEVOTHYROXINE SODIUM 88 MCG TABLET PO SCH (06:49)
[2020-05-08] MEDS: ALBUT/IPRATROP 3MG/0.5MG NEB 3 ML VIAL NEB SCH ×4 (07:32→20:01)
[2020-05-08] MEDS: AMIODARONE 200 MG TAB PO SCH (08:41)
[2020-05-08] MEDS: ASPIRIN 81 MG ECTAB PO SCH (08:41)
[2020-05-08] MEDS: FLUTICASONE/VILANTEROL 200/25MCG 14 PUFFS/INHALER INH SCH (08:41)
[2020-05-08] MEDS: CALCIUM ACETATE 667 MG CAP/TAB PO SCH ×3 (08:41→16:53)
[2020-05-08] MEDS: MIDODRINE HCL 2.5 MG TAB PO SCH ×3 (08:41→16:53)
[2020-05-08] MEDS: CLOPIDOGREL BISULFATE 75 MG TAB PO SCH (08:42)
[2020-05-08] MEDS: UMECLIDINIUM BROMIDE 62.5MCG/BLISTER 7 PUFFS/INHALER INH SCH (08:42)
[2020-05-08] MEDS: NEPHROCAPS PO SCH (08:42)
[2020-05-08] MEDS: PANTOprazole 40 MG TAB PO SCH (08:42)
[2020-05-08] MEDS: ACETAMINOPHEN 325 MG TAB PO SCH ×2 (08:43→20:20)
[2020-05-08] MEDS: PREGABALIN 75 MG CAP PO SCH (08:50)
--- NOTE | 2020-05-08 12:41 | XCELERA ---
[id number]
--- NOTE | 2020-05-08 14:28 | Hospitalist Progress Note ---
Date of Service May 08, 2020 Assessment & Plan (1) Fever: Temperature 100.8 F upon admission, remains afebrile, negative covid testing Flu swab neg (2) Abdominal pain: Patient reports abdominal discomfort, and now normalized ostomy output. CT abdomen/pelvis 05/05/20 IMPRESSION: 1. There are no acute infectious or inflammatory findings in the abdomen or pelvis. 2. Again seen is postoperative change from subtotal colectomy with right lower quadrant ileostomy. No bowel obstruction is identified. 3. Cardiomegaly. (3) End stage renal disease on dialysis: Consult nephrology, has re adjusted dry weight goal (4) Anemia, chronic renal failure: this is anemia of chronic disease, the pt has relatively stable hgb but not in the range to cause sob (5) CAD (coronary artery disease): Pt has cad and afib, remains on aspirin, amiodarone and atorvastatin, blood pressure is limited and pt may need midodrine to support bp around dialysis (6) Shortness of breath: pt with shortness of breath that is multifactoral from fluid overload which will be treated with dialysis, with diagnosis of COPD will increase inhalation therapy, will not use steroids at this time unless it becomes more clear that this is driven by COPD, will also check echo to see if pulmonary htn maybe a bigger role in his symptom complex (7) DVT prophylaxis: heparin (8) Acute diastolic (congestive) heart failure: Acute on chronic diastolic CHF (possibly) due to pulmonary hypertensionhad been ruled out by echo citing normal right ventricular systolic pressures, but given the LVH pt still may have HFpEF and maybe becoming more sensitive to volume so a target for lower dry weights may improve his subjective feelings of shortness of breath Admission and Anticipated Discharge Date Admission Date: May 07, 2020 Subjective pt says he feels much better today, he is less short of breath but still gets breathless with speaking at times Review of Systems Review of Systems: Mild distress and fatigue no headache, blurry or double vision no speech or swallowing issues no chest pain, pressure or palpitations continues with shortness of breath, but no cough or wheezes no abdominal pain, nausea or vomiting, diarrhea or constipation no dysuria, hematuria or frequency no focal joint pain, persistent peripheral swelling no back pain, CVA tenderness or radicular pain no bruising, bleeding or rashes no focal signs of weakness or numbness or altered sensation globally feels weakened and ill no complaints or anxiety or depression. Physical Exam Physical Exam: The patient appeared chronically ill, was easily tachypneic. Vital signs as documented. Head exam is normocephalic atraumatic no scleral icterus Neck is without JVD, thyromegaly, or carotid bruits. Lungs are decreased at the bases, no focal loss coarse overall Cardiac exam, Rhythm is regular.. systolic murmur, rubs or gallops. Abdominal exam reveals normal bowel sounds, soft non tender, no masses Extremities are moderatley edematous and both pedal pulses are normal. Neurologic exam is alert and oriented, no focal loss of strength or sensation Skin is without bruises or rashes Psychologically is without concerns for anxiety or depression Results & Data Results & Data ([facility]) Vital Signs (Past 12 Hours) Vital Signs Temp Pulse Pulse Resp BP Pulse Ox 05/08/20 08:34 97.5 F L 67 18 126/71 96 05/08/20 07:35 63 18 98 PG Care Time/CCT Total # of Minutes Spent Total Time Spent with Patient: Total time spent is greater than 50% in coordination of care (as documented) at patient's floor/unit and/or counseling patient: Coding Level of Care Code 57571 Subseq Hosp Care Lvl 3 Diagnoses Fever R50.9 Fever type: unspecified Abdominal pain R10.9 End stage renal disease on dialysis N18.6; Z99.2 Anemia, chronic renal failure N18.9; D63.1 Chronic kidney disease stage: unspecified stage CAD (coronary artery disease) I25.10 Associated angina: without angina Coronary Disease-Associated Artery/Lesion type: [place] artery [place] vs. transplanted heart: [place] heart Shortness of breath R06.02 DVT prophylaxis Z29.9 Acute diastolic (congestive) heart failure I50.31 (1) Anemia, chronic renal failure Chronic kidney disease stage: unspecified stage Qualified Code(s): N18.9 - Chronic kidney disease, unspecified; D63.1 - Anemia in chronic kidney disease (2) Fever Fever type: unspecified Qualified Code(s): R50.9 - Fever, unspecified (3) CAD (coronary artery disease) Associated angina: without angina Coronary Disease-Associated Artery/Lesion type: [place] artery [place] vs. transplanted heart: [place] heart Qualified Code(s): I25.10 - Atherosclerotic heart disease of [place] coronary artery without angina pectoris
[2020-05-08] MEDS: PARoxetine HCL 20 MG TAB PO SCH (20:20)
[2020-05-08] MEDS: ATORVASTATIN 40 MG TAB PO SCH (20:20)
[2020-05-08] MEDS: DOCUSATE SODIUM 100 MG CAP PO SCH (20:20)
[2020-05-08] MEDS: TEMAZEPAM 15 MG CAPSULE PO PRN (23:40)
[2020-05-09] MEDS: LEVOTHYROXINE SODIUM 88 MCG TABLET PO SCH (05:35)
[2020-05-09] MEDS: ALBUT/IPRATROP 3MG/0.5MG NEB 3 ML VIAL NEB SCH ×4 (07:23→19:19)
[2020-05-09] MEDS ORDERED: SODIUM CHLORIDE 0.9% 1000ML 1,000 ML IV PRN (08:27)
[2020-05-09] MEDS: CALCIUM ACETATE 667 MG CAP/TAB PO SCH ×3 (08:30→19:16)
[2020-05-09] MEDS: ASPIRIN 81 MG ECTAB PO SCH (08:31)
[2020-05-09] MEDS: FLUTICASONE/VILANTEROL 200/25MCG 14 PUFFS/INHALER INH SCH (08:31)
[2020-05-09] MEDS: UMECLIDINIUM BROMIDE 62.5MCG/BLISTER 7 PUFFS/INHALER INH SCH (08:31)
[2020-05-09] MEDS: FAMOTIDINE 20 MG TAB PO SCH (08:32)
[2020-05-09] MEDS: NEPHROCAPS PO SCH (08:32)
[2020-05-09] MEDS: CLOPIDOGREL BISULFATE 75 MG TAB PO SCH (08:32)
[2020-05-09] MEDS: PREGABALIN 75 MG CAP PO SCH (08:32)
[2020-05-09] MEDS: PANTOprazole 40 MG TAB PO SCH (08:32)
[2020-05-09] MEDS: ACETAMINOPHEN 325 MG TAB PO SCH ×2 (08:33→20:47)
[2020-05-09] MEDS: MIDODRINE HCL 2.5 MG TAB PO SCH ×3 (08:44→19:16)
[2020-05-09 08:52] LABS: Hemoglobin 10.4 g/dL (14.0-18.0); Mean Corpuscular Hgb Conc 33.5 g/dL (32-36); Mean Corpuscular Volume 101.3 fL (80-100); Mean Platelet Volume 8.8 fL (7.4-10.4); Platelet Count 104 K/uL (130-400); RDW Coefficient of Variation 14.9 % (11.5-14.5); RDW Standard Deviation 55.2 fL (36.4-46.3); Red Blood Count 3.06 M/uL (4.7-6.1); White Blood Count 7.33 K/uL (4.8-10.8)
--- NOTE | 2020-05-09 08:55 | Hospitalist Progress Note ---
Date of Service May 09, 2020 Assessment & Plan (1) Fever: Temperature 100.8 F upon admission, remains afebrile, negative covid testing Flu swab neg (2) Abdominal pain: resolved, and now normalized ostomy output. CT abdomen/pelvis 05/05/20 IMPRESSION: 1. There are no acute infectious or inflammatory findings in the abdomen or pelvis. 2. Again seen is postoperative change from subtotal colectomy with right lower quadrant ileostomy. No bowel obstruction is identified. 3. Cardiomegaly. (3) End stage renal disease on dialysis: Nephrology with dialysis oversight, has re adjusted dry weight goal (4) Anemia, chronic renal failure: this is anemia of chronic disease, the pt has relatively stable hgb but not in the range to cause sob (5) CAD (coronary artery disease): Pt has cad and afib, remains on aspirin, amiodarone and atorvastatin, blood pressure is limited and pt may need midodrine to support bp around di alysis (6) Shortness of breath: pt with shortness of breath that is multifactoral from fluid overload which will be treated with dialysis, with diagnosis of COPD will increase inhalation therapy, will not use steroids at this time unless it becomes more clear that this is driven by COPD, echo did not suggest pulmonary hypertension (7) DVT prophylaxis: heparin (8) Acute diastolic (congestive) heart failure: Acute on chronic diastolic CHF (possibly) due to pulmonary hypertensionhad been ruled out by echo citing normal right ventricular systolic pressures, but given the LVH pt still may have HFpEF and maybe becoming more sensitive to volume so a target for lower dry weights may improve his subjective feelings of shortness of breath Admission and Anticipated Discharge Date Admission Date: May 07, 2020 Subjective pt feels much improved. We did discuss possibilities of rehab either in a center or as an outpt and he does not wish to go to rehab. Review of Systems Review of Systems: Mild distress and fatigue no headache, blurry or double vision no speech or swallowing issues no chest pain, pressure or palpitations continues with mild shortness of breath, but no cough or wheezes no abdominal pain, nausea or vomiting, diarrhea or constipation no dysuria, hematuria or frequency no focal joint pain, persistent peripheral swelling no back pain, CVA tenderness or radicular pain long standing leg discoloration no focal signs of weakness or numbness or altered sensation globally feels weakened but improving no complaints or anxiety or depression. Physical Exam Physical Exam: The patient appeared chronically ill, fatigues easily Vital signs as documented. Head exam is normocephalic atraumatic no scleral icterus Neck is without JVD, thyromegaly, or carotid bruits. Lungs remain decreased at the bases, no focal loss coarse overall Cardiac exam, Rhythm is regular.. systolic murmur, rubs or gallops. Abdominal exam reveals normal bowel sounds, soft non tender, no masses Extremities remain moderately edematous and both pedal pulses are normal. Neurologic exam is alert and oriented, no focal loss of strength or sensation Skin is with chronic venous stasis and healing bruised from bumping his legs Psychologically is without concerns for anxiety or depression Results & Data Results & Data ([facility]) Vital Signs (Past 12 Hours) Vital Signs Temp Pulse Pulse Pulse Resp BP Pulse Ox 05/09/20 07:46 97.7 F 71 20 142/67 H 98 05/09/20 07:24 70 18 99 05/08/20 23:33 97.5 F L 75 18 154/78 H 96 PG Care Time/CCT Total # of Minutes Spent Total Time Spent with Patient: Total time spent is greater than 50% in coordination of care (as documented) at patient's floor/unit and/or counseling patient: Coding Level of Care Code 42974 Subseq Hosp Care Lvl 2 Diagnoses Fever R50.9 Fever type: unspecified Abdominal pain R10.9 End stage renal disease on dialysis N18.6; Z99.2 Anemia, chronic renal failure N18.9; D63.1 Chronic kidney disease stage: unspecified stage CAD (coronary artery disease) I25.10 Associated angina: without angina Coronary Disease-Associated Artery/Lesion type: [place] artery [place] vs. transplanted heart: [place] heart Shortness of breath R06.02 DVT prophylaxis Z29.9 Acute diastolic (congestive) heart failure I50.31 (1) Anemia, chronic renal failure Chronic kidney disease stage: unspecified stage Qualified Code(s): N18.9 - Chronic kidney disease, unspecified; D63.1 - Anemia in chronic kidney disease (2) Fever Fever type: unspecified Qualified Code(s): R50.9 - Fever, unspecified (3) CAD (coronary artery disease) Associated angina: without angina Coronary Disease-Associated Artery/Lesion type: [place] artery [place] vs. transplanted heart: [place] heart Qualified Code(s): I25.10 - Atherosclerotic heart disease of [place] coronary artery without angina pectoris
[2020-05-09] MEDS ORDERED: HEPARIN SOD (PORCINE) 1000 UNIT/ML 10 ML VIAL IV ONE (09:15)
--- NOTE | 2020-05-09 14:00 | Nephrology Progress Note ---
Date of Service May 09, 2020 Assessment & Plan (1) End stage renal disease on dialysis: on MWF HD with mild volume overload. for routine dialysis today again with goal of 2.5 L off > more than we usually do but he is overloaded with hypoxia and XR appearance and (for him even on midodrine) relative HTN. chemistries ok - on 2K bath today -next HD 05/11 as inpt or outpt -for now cont midodrine -ordered FR (2) Ileostomy in place: pt repeatedly states he has to drink more and has been told to drink more or else his ostomy bag falls off, stool too thick. he frequently refuses to consent to /allow indicated fluid removal targets at dialysis due to these concerns >>>pls involve ostomy team to make recommendations on fluid intake fo rthis dialysis patient, on ways to maintain optimal stool quality or address his other concerns. from dialysis standpoint he should not have more than 1.2 L fluid daily. he consistently reports to me being told that he is "dehydrated" but also tips into fluid overload very easily with sob and increased weight gains (and then refuses needed fluid removal) at dialysis --recommend outpatient follow up with ostomy team if possible for continued education, recommendations, coordination with renal care Present on Admission?: Yes (3) Shortness of breath: chronic issue for him and worse when he has fluid overload. he does not see pulm as OP. no home 02. not clear to me if he uses inhalers as rx'd. -eval for need for 02 -encourage fluid limits Present on Admission?: Yes Admission and Anticipated Discharge Date Admission Date: May 07, 2020 Physical Exam Constitutional: well developed and well nourished; no acute distress Eyes: EOM intact bilaterally ENMT: Ears: no external ear abnormality Nose: no external nose abnormality Mouth: + dry oral mucous membranes Neck: no nuchal rigidity Respiratory: normal respiratory effort Auscultation: + diminished lung sounds Cardiovascular: Rate/Rhythm: regular rate and regular rhythm Extremities: + edema (trace indurated) Gastrointestinal (Abdomen): Inspection/Auscultation: normal bowel sounds Percussion/Palpation: abdomen soft; abdomen nontender Musculoskeletal: Extremities: strength 5/5 throughout Skin: no rashes, warm and dry Results & Data ([facility]) Vital Signs (Past 12 Hours) Vital Signs Temp Pulse Pulse Resp BP Pulse Ox 05/09/20 11:18 72 18 97 05/09/20 07:46 36.5 C 71 20 142/67 H 98 05/09/20 07:24 70 18 99
[2020-05-09] MEDS: HEPARIN SOD (PORCINE) 1000 UNIT/ML 10 ML VIAL IV SCH (19:07)
[2020-05-09] MEDS: ATORVASTATIN 40 MG TAB PO SCH (20:47)
[2020-05-09] MEDS: PARoxetine HCL 20 MG TAB PO SCH (20:47)
[2020-05-09] MEDS: DOCUSATE SODIUM 100 MG CAP PO SCH (20:47)
[2020-05-09] MEDS: TEMAZEPAM 15 MG CAPSULE PO PRN (23:42)
[2020-05-10] MEDS: LEVOTHYROXINE SODIUM 88 MCG TABLET PO SCH (05:35)
[2020-05-10] MEDS: ALBUT/IPRATROP 3MG/0.5MG NEB 3 ML VIAL NEB SCH ×3 (07:08→14:56)
[2020-05-10] MEDS: PANTOprazole 40 MG TAB PO SCH (08:02)
[2020-05-10] MEDS: NEPHROCAPS PO SCH (08:02)
[2020-05-10] MEDS: ASPIRIN 81 MG ECTAB PO SCH (08:02)
[2020-05-10] MEDS: AMIODARONE 200 MG TAB PO SCH (08:03)
[2020-05-10] MEDS: MIDODRINE HCL 2.5 MG TAB PO SCH ×3 (08:03→17:42)
[2020-05-10] MEDS: CLOPIDOGREL BISULFATE 75 MG TAB PO SCH (08:03)
[2020-05-10] MEDS: CALCIUM ACETATE 667 MG CAP/TAB PO SCH ×3 (08:03→17:42)
[2020-05-10] MEDS: ACETAMINOPHEN 325 MG TAB PO SCH (08:03)
[2020-05-10] MEDS: UMECLIDINIUM BROMIDE 62.5MCG/BLISTER 7 PUFFS/INHALER INH SCH (08:04)
[2020-05-10] MEDS: FLUTICASONE/VILANTEROL 200/25MCG 14 PUFFS/INHALER INH SCH (08:04)
[2020-05-10] MEDS: PREGABALIN 75 MG CAP PO SCH (08:07)
--- NOTE | 2020-05-10 18:01 | Discharge Summary ---
Date of Service May 10, 2020 Admission HPI Per Admitting Provider The patient is a 74-year-old male with a past medical history including ESRD on HD, COPD, hypertension, generalized weakness, memory loss, ileostomy, aspiration pneumonia, hypothyroidism, CAD, anemia chronic disease, status post CABG x2, status post MVR, status post AAA repair, status post femoropopliteal bypass surgery, status post DVT and atrial fibrillation. He was most recently admitted to [facility] from 05/02-05/04 due to issues with fluid overload and difficulty with dialysis. When he returned home, he reports that he got some stomach upset, and did not take any of his routine medications or drink any liquids or eat any solids, and presented to the emergency department today. Principal Diagnosis Fluid overload treated with dialysis Discharge Exam The patient appeared chronically ill Vital signs as documented. Lungs are clear but diminished at the bases Cardiac exam, Rhythm is regular.. No murmurs, rubs or gallops. Abdominal exam reveals normal bowel sounds, soft ileostomy in the right side of his abdomen which is functioning well Extremities are edematous and right toes are amputated Neurologic exam is alert and oriented, no focal loss of strength or sensation Skin is without bruises or rashes, AV fistula in his right upper arm Discharge Data Allergies Allergy/AdvReac Type Severity Reaction Status Date / Time oxycodone AdvReac Severe DELIRIUM Verified 05/05/20 13:31 gabapentin AdvReac Unknown Nausea Verified 05/05/20 13:31 tramadol AdvReac Unknown dizziness;a Verified 05/05/20 13:31 nxiety;sob Consultations 05/05/20 15:42 ED Decision to Admit Stat 05/05/20 16:51 Consult Nephrology Routine 05/05/20 19:27 Consult Case Management - Discharge Planning Routine Ordered Studies 05/05/20 20:08 CT abd pelvis wo con Stat Hospital Course (1) Fever: Temperature 100.8 F upon admission, remains afebrile, negative covid testing Flu swab neg (2) Abdominal pain: resolved, and now normalized ostomy output. CT abdomen/pelvis 05/05/20 IMPRESSION: 1. There are no acute infectious or inflammatory findings in the abdomen or pelvis. 2. Again seen is postoperative change from subtotal colectomy with right lower quadrant ileostomy. No bowel obstruction is identified. 3. Cardiomegaly. (3) End stage renal disease on dialysis: Nephrology with dialysis oversight, has re adjusted dry weight goal patien t has resolution of his symptoms (4) Anemia, chronic renal failure: this is anemia of chronic disease, the pt has relatively stable hgb but not in the range to cause sob (5) CAD (coronary artery disease): Pt has cad and afib, remains on aspirin, amiodarone and atorvastatin, blood pressure is limited and pt may need midodrine to support bp around dialysis (6) Shortness of breath: pt with shortness of breath that is multifactoral from fluid overload which will be treated with dialysis, with diagnosis of COPD, echo did not suggest pulmonary hypertension Total Time Total Time Spent Total Time Spent (In Minutes): It required greater than 30 minutes to prepare this patient for discharge Discharge Plan Discharge Items Patient Disposition: Home - Self-Care Reason For Visit: SHORTNESS OF BREATH Discharge Diagnosis: exces fluid requiring dialysis Activity: Per Instructions section Non-emergency contact: Primary Care Provider and [employer] Call non-emergency contact if: you have any medication questions Follow-up/Referrals: Pro,Emil Cam MD [Primary Care Provider] - Diet: Regular Addtl Attending Provider Instructions: please be caution with your liquids if you are having issues with too firm of stool consider adding metmucil or cirtucel to your diet in order to help conserve your fluid Pending Studies at Discharge: No Stand-Alone Forms: My [employer], Smoking Cessation Medications and DC Order Prescriptions: Continued atorvastatin 40 mg tablet 40 mg PO HS Qty: 90 RF: 3 omeprazole 20 mg tablet,delayed release (DR/EC) 20 mg PO QAM Qty: 90 RF: 3 acetaminophen 325 mg capsule 650 mg PO BID Qty: 30 RF: 0 Aranesp (in polysorbate) 40 mcg/mL solution 40 mcg subcut WEEKLY Qty: 4 RF: 0 sennosides-docusate sodium [Senokot-S] 8.6-50 mg tablet 1 tabcap PO DAILY PRN (Reason: constipation) Qty: 30 RF: 0 polyethylene glycol 3350 [Miralax] 17 gram/dose powder 17 gm PO DAILY PRN (Reason: constipation) Qty: 119 RF: 0 paroxetine HCl 20 mg tablet 20 mg PO HS Qty: 90 RF: 3 levothyroxine 88 mcg capsule 88 mcg PO DAILY Qty: 30 RF: 2 Lyrica 75 mg capsule 75 mg PO QAM Qty: 30 RF: 3 temazepam 15 mg capsule 30 mg PO HS PRN (Reason: Sleep) Qty: 60 RF: 0 amiodarone 200 mg tablet 200 mg PO Q OTHER DAY Qty: 14 RF: 3 Breo Ellipta 200-25 mcg/dose blister with device 1 inh INHALATION QAM Qty: 28 RF: 3 Spiriva with HandiHaler 18 mcg capsule, w/inhalation device 1 cap INHALATION QAM Qty: 30 RF: 4 alprazolam 0.5 mg tablet 0.5 mg PO BID PRN (Reason: anxiety) Qty: 20 RF: 0 azithromycin 500 mg Tablet 500 mg PO DIRECTED PRN (Reason: PRIOR TO DENTAL VISITS) RF: 0 famotidine 20 mg tablet 20 mg PO MOWEFR RF: 0 midodrine 5 mg tablet 5 mg PO TID RF: 0 aspirin [Aspirin Low Dose] 81 mg Tablet,Delayed Release (Dr/Ec) 81 mg PO DAILY RF: 0 Triphrocaps 1 mg capsule 1 mg PO DAILY RF: 0 albuterol sulfate 90 mcg/actuation Hfa Aerosol Inhaler 2 puff INHALATION Q6H PRN (Reason: Shortness Of Breath) RF: 0 calcium acetate(phosphat bind) 667 mg Capsule 667 mg PO TIDM RF: 0 albuterol sulfate 2.5 mg /3 mL (0.083 %) solution for nebulization 2.5 mg INH Q6H PRN (Reason: cough/wheeze/shortness of breath) Qty: 180 RF: 5 docusate sodium 100 mg capsule 100 mg PO HS RF: 0 clopidogrel 75 mg tablet 75 mg PO DAILY RF: 0 Discharge Orders: Discharge Order (Routine); Ordered 05/10/20 Ordered By: Leon Hoffman Admission Data Admit Date/Time: 05/07/20 17:17 Attending Provider: Leon Hoffman Admit Provider: Aditya Hardin Primary Care Provider: Emil Lazcano Other Providers: Aditya Hardin ; Marc Griffin Other Interventions: Discharge Summary Assessment (RN) Last Done: 05/10/20 15:29 DC Date/Time DO NOT enter until pt leaves facility: 05/10/20 17:57 Coding Level of Care Code D/C Day Management >30 mins Diagnoses Fever R50.9 Fever type: unspecified Abdominal pain R10.9 End stage renal disease on dialysis N18.6; Z99.2 Anemia, chronic renal failure N18.9; D63.1 Chronic kidney disease stage: unspecified stage CAD (coronary artery disease) I25.10 Coronary Disease-Associated Artery/Lesion type: [place] artery [place] vs. transplanted heart: [place] heart Associated angina: without angina Shortness of breath R06.02
== END 2020-05-10 17:57 | disposition home or self-care (01) | DRG 204 ==
LOC: 3W 12:50 → ED 12:50 → SUATTDRO 16:50 → 3W 18:21

== ENCOUNTER 2021-04-08 15:24 | Inpatient (IN) ==
--- NOTE | 2021-04-08 16:06 | Emergency Department Note ---
Impression & Plan Pleural effusion, ESRD on dialysis, Elevated troponin ED Provider Note NAME: RAMA AYERS AGE: 75 SEX: M : 1945 ARRIVES VIA: Ambulance INFORMANT: Patient, ED PROVIDER(S): Lorenzo Delatorre MD Chief Complaint: Headache and abdominal pain HPI: Patient does describe having headache and abdominal pain which she states is been ongoing for approximate 3 weeks. The patient states that more recently she has felt generally unwell with generalized weakness. The patient is an ESRD hemodialysis Thursday and was brought in from [facility] today as he was not feeling well. The patient does describe a nonproductive cough. Former history of smoking 40 years ago but nonproductive. The patient oxygen saturation in the low 90s does not use oxygen at home. Patient does have a known history of COPD and CHF. Patient states that for today he stated he did not want any fluid pulled off of him and that he just wanted the blood to be "cleaned." Patient did receive the total 4 hours of dialysis time today. The patient does describe posterior headache and does take aspirin and Plavix but denies any recent falls. The patient does have a history of neuropathy for which he does have some chronic numbness in his bilateral lower extremities and right upper extremity. This is unchanged from prior. Patient denies any focal weakness. ROS: See HPI for pertinent positives and negatives. A total of 10 systems were reviewed and otherwise negative. Past medical history: See below Surgical history: See below Social history: See below Physical Exam: GENERAL: Nasal cannula in place. NAD, non-toxic. EYE EXAM: Normal conjunctiva. PERRL, no anisocoria and EOM's grossly intact w/o pain. NECK: Supple, no nuchal rigidity, no adenopathy, non-tender. No signs of meningismus. LUNGS: Bibasilar crackles. Normal chest wall mechanics. HEART: NSR, no MRG. ABDOMEN: Abdomen soft, non-tender, normo-active bowel sounds, no masses, no rebound or guarding. BACK: No CVA TTP. SKIN: No rashes and no bruising. UPPER EXTREMITIES: Right upper extremity with palpable thrill. LOWER EXTREMITIES: Chronic venous stasis changes, generalized weakness bilaterally, decreased sensation. NEURO EXAM: A&O x3, cranial nerves II-XII grossly intact, normal speech, moves all 4 extremities on command with generalized weakness throughout, no focal deficits, decreased sensation bilateral lower extremities Differential diagnoses: Infection, dehydration, metabolic abnormality, hypo/hyperglycemia, electrolyte disturbance, anemia, hypoxia, cardiac sources, intracerebral event, toxicologic, neurologic, as well as other pathologies. Course: Patient was seen and evaluated the bedside. Full history physical exam was pe rformed. EKG interpreted by me Possible junctional rhythm versus sinus with first-degree AV block, rate of 67, normal QRS, prolonged QT. PVC noted prior EKG from May 05, 2020 shows sinus with first-degree AV block. Imaging Studies: See below Cardiac monitoring: An order was placed for continuous cardiac monitoring. The monitor shows a rate of 67 with regular rhythm. MDM: Patient was seen due to concern for headache, abdominal pain as well as generalized weakness. Blood work was obtained along with CT of the head and CT abdomen pelvis. Patient's blood work does show some mild anemia but normal white count. The patient does have kidney dysfunction which is consistent with the patient's prior history. Troponin is positive but chronically elevated. Covid negative. CT head negative. CT abdomen pelvis does show some bilateral hydroureteronephrosis. Bladder is not distended. Chest x-ray does show pleural effusion the patient had complained of some shortness of breath and cough. The patient states that he did not have any fluid removed during his dialysis session. He did state this could be contributory. After further discussion I did speak with the on-call hospitalist and patient was admitted by Dr. Chacon. Past Med/Surg History Medical History (Updated 04/08/21 @ 19:07 by Lorenzo Delatorre MD) AAA (abdominal aortic aneurysm) Acute osteomyelitis of foot Anemia Anemia, chronic renal failure Anxiety Anxiety Aspiration pneumonia Atrial fibrillation Atrial fibrillation PAROXYSMAL- ON ASA PER RECORDS AV fistula right arm CAD (coronary artery disease) CAD (coronary artery disease) S/P CABG X2 (DURING MVR) 2010 Chronic back pain Chronic GERD COPD (chronic obstructive pulmonary disease) COPD (chronic obstructive pulmonary disease) CVA (cerebral vascular accident) "NO RESIDUAL EFFECTS" PER RECORDS Delirium Depression Dermatitis Diarrhea Diastolic CHF DVT (deep venous thrombosis) Elevated troponin Encounter for central line placement ESRD (end stage renal disease) ESRD (end stage renal disease) on dialysis ESRD (end stage renal disease) on dialysis Gangrene Gangrene of toe right toes REASON FOR PROCEDURE Generalized weakness GERD (gastroesophageal reflux disease) Gram negative sepsis H/O: gout Hyperkalemia Hyperlipidemia Hypomagnesemia Hypotension Hypothyroid Hypothyroidism Hypothyroidism Ileostomy in place Ischemic colitis Memory loss or impairment Myocardial infarct, old 2010 Necrosis of colon Non-healing wound Orthostatic hypotension Peripheral vascular disease Peripheral vascular disease Proctocolitis Shortness of breath Valvular disease S/P MVR (2010); ?AVR PER RECORDS Vitamin D deficiency Surgical History Difficult intubation B/L Anteriogram, Right femoral to anterior tibial cadaver vein bypass= 08/06/18= Grade view 4, MAC 3 --> Glidescope #3, ETT 7.5 at [facility] H/O abdominal aortic aneurysm repair 2011 H/O [id number] bypass 2012 H/O mitral valve repair 2010; ?AVR PER RECORDS Hx of CABG S/P CABG X2 (DURING MVR) 2010 S/P AAA repair S/P ablation of atrial fibrillation S/P CABG x 2 S/P cholecystectomy S/P cholecystectomy S/P femoral-popliteal bypass surgery S/P MVR (mitral valve repair) Family History Mother Essential hypertension Father , age 76 Myocardial infarction Denies family history of Colon cancer Ovarian cancer Prostate cancer Breast cancer Social History Smoking Status: Never smoker Tobacco Type: Cigarettes Years Smoked: 5; Second Hand Exposure: No; Hx Alcohol Use: No Hx Substance Use: No Preferred Language: Hungarian Communication Ability: Effective Visual Impairment: No Limitations 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 Required: No Beliefs That Will Affect Care: None marital status: marital status details: 1 daughter Current Living Situation: Family Current Living Situation Comment: sister 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 Feels Safe at Home: Yes Seatbelt Use: always Assistive Devices: Walker Allergies Allergies Allergy/AdvReac Type Severity Reaction Status Date / Time oxycodone AdvReac Severe DELIRIUM Verified 04/08/21 16:18 tramadol AdvReac Severe dizziness;a Verified 04/08/21 16:19 nxiety;sob gabapentin AdvReac Intermediate Nausea Verified 04/08/21 16:19 Home Meds Home Medications Medication Instructions Recorded Confirmed calcium acetate(phosphat bind) 667 mg PO TIDM 08/23/18 04/08/21 docusate sodium 100 mg capsule 100 mg PO HS 05/31/19 04/08/21 Triphrocaps 1 mg PO DAILY 05/01/20 04/08/21 aspirin [Aspirin Low Dose] 81 mg PO DAILY 05/01/20 04/08/21 omeprazole 20 mg tablet,delayed 40 mg PO QAM tab 07/19/20 04/08/21 release acetaminophen 650 mg PO BID PRN 04/08/21 04/08/21 alum-mag hydroxide-simeth [Maalox] 30 ml PO DIRECTED PRN 04/08/21 04/08/21 famotidine 20 mg PO 3XWK 04/08/21 04/08/21 ipratropium-albuterol 3 ml INHALATION Q4H PRN 04/08/21 04/08/21 lidocaine [Aspercreme (lidocaine 1 patch TOPICAL DAILY PRN 04/08/21 04/08/21 HCl)] nitroglycerin [Nitrostat] 0.4 mg SUBLINGUAL DIRECTED PRN 04/08/21 04/08/21 ondansetron HCl [Zofran] 4 mg IV DIRECTED PRN 04/08/21 04/08/21 ropinirole 0.25 mg PO HS 04/08/21 04/08/21 sennosides [Senokot] 8.6 mg PO DAILY PRN 04/08/21 04/08/21 sodium chloride 0.9 % [Normal 100 ml IV DIRECTED PRN 04/08/21 04/08/21 Saline] Previous Rx's Medication Instructions Recorded atorvastatin 40 mg tablet 40 mg PO HS #90 tab 11/13/20 fluticasone furoate 200 1 inh INHALATION QAM #84 ea 11/23/20 mcg-vilanterol 25 mcg/dose inhalation powder levothyroxine 88 mcg tablet 88 mcg PO DAILY #90 tab 11/23/20 clopidogrel 75 mg tablet 75 mg PO DAILY #90 tab 12/24/20 amiodarone 200 mg tablet 200 mg PO Q OTHER DAY #14 tab 01/10/21 paroxetine HCl 20 mg tablet 20 mg PO HS #90 tab 01/21/21 pregabalin 75 mg capsule 75 mg PO QAM #30 cap 01/30/21 temazepam 15 mg capsule 30 mg PO HS PRN #60 cap 03/27/21 tiotropium bromide 18 mcg capsule 1 cap INHALATION QAM #1 inh 03/27/21 with inhalation device Results & Data (ED) Vital Signs Vital Signs - 24 hr 04/08/21 15:33 04/08/21 16:27 Temperature 36.8 C Temperature Source Temporal Artery Scan Pulse Rate 62 Pulse Rhythm Regular Pulse Strength Normal Respiratory Rate 20 Respiratory Effort / Characteristics Non-Labored Spontaneous Respiratory Depth Normal Respiratory Pattern Regular Blood Pressure 165/86 H Blood Pressure Mean 112 Blood Pressure Position Sitting Pulse Oximetry 91 Oxygen Delivery Method Room Air Nasal Cannula Sepsis Recent Fever Within 48 Hours No Sepsis New/Unexplained Change in Mental Status No Sepsis Action Taken by Nursing No Action Required Home Medications Current Medication List: was personally reviewed by me Laboratory Data Attestation: I reviewed the patient's lab results. Result diagrams: 04/08/21 16:00 04/08/21 16:00 Lab Results 04/08/21 04/08/21 04/08/21 Range/Units 16:00 16:00 16:00 WBC 8.58 (4.8-10.8) K/uL RBC 3.73 L (4.7-6.1) M/uL Hgb 12.0 L (14.0-18.0) g/dL Hct 35.9 L (42-52) % MCV 96.2 (80-100) fL MCH 32.2 (25-34) pg MCHC 33.4 (32-36) g/dL RDW Std Deviation 51.7 H (36.4-46.3) fL RDW Coeff of Jolanta 14.7 H (11.5-14.5) % Plt Count 148 (130-400) K/uL MPV 9.4 (7.4-10.4) fL Immature Gran % (Auto) 0.6 % Neut % (Auto) 72.0 % Lymph % (Auto) 12.9 % [place] % (Auto) 10.4 % Eos % (Auto) 3.6 % Baso % (Auto) 0.5 % Neut # (Auto) 6.18 (1.4-6.5) K/uL Lymph # (Auto) 1.11 L (1.2-3.4) K/uL [place] # (Auto) 0.89 H (0.11-0.59) K/uL Eos # (Auto) 0.31 (0-0.5) K/uL Baso # (Auto) 0.04 (0-0.2) K/uL Immature Gran # (Auto) 0.05 H (0.00-0.02) K/uL PT 10.7 (9.0-12.0) Seconds INR 1.1 (0.9-1.1) Sodium 135 L (136-145) mmol/L Potassium 3.7 (3.5-5.1) mmol/L Chloride 97 L (98-107) mmol/L Carbon Dioxide 29 (21-32) mmol/L Anion Gap 9.0 (3-11) BUN 13 (7-18) mg/dl Creatinine 4.85 H* (0.6-1.4) mg/dl Est Cr Clr Drug Dosing 17.4 ml/min Est GFR ( Amer) 12.6 ml/min Est GFR (Non-Af Amer) 10.9 ml/min BUN/Creatinine Ratio 2.7 L (10-20) Glucose 85 (70-99) mg/dl Calcium 9.7 (8.5-10.1) mg/dl Magnesium 2.1 (1.8-2.4) mg/dl Total Bilirubin 0.8 (0.2-1) mg/dl AST 16 (15-37) U/L ALT 18 (12-78) U/L Alkaline Phosphatase 121 H (45-117) U/L Troponin I 0.049 H* (0-0.045) ng/ml Total Protein 7.4 (6.4-8.2) gm/dl Albumin 3.6 (3.4-5.0) gm/dl Globulin 3.8 (2.5-4.0) gm/dl Albumin/Globulin Ratio 0.9 (0.9-2) TSH 2.620 (0.300-4.500) uIu/ml COVID-19 Eval Order SARS-CoV-2 (PCR) (Negative) 04/08/21 04/08/21 Range/Units 16:50 16:50 WBC (4.8-10.8) K/uL RBC (4.7-6.1) M/uL Hgb (14.0-18.0) g/dL Hct (42-52) % MCV (80-100) fL MCH (25-34) pg MCHC (32-36) g/dL RDW Std Deviation (36.4-46.3) fL RDW Coeff of Jolanta (11.5-14.5) % Plt Count (130-400) K/uL MPV (7.4-10.4) fL Immature Gran % (Auto) % Neut % (Auto) % Lymph % (Auto) % [place] % (Auto) % Eos % (Auto) % Baso % (Auto) % Neut # (Auto) (1.4-6.5) K/uL Lymph # (Auto) (1.2-3.4) K/uL [place] # (Auto) (0.11-0.59) K/uL Eos # (Auto) (0-0.5) K/uL Baso # (Auto) (0-0.2) K/uL Immature Gran # (Auto) (0.00-0.02) K/uL PT (9.0-12.0) Seconds INR (0.9-1.1) Sodium (136-145) mmol/L Potassium (3.5-5.1) mmol/L Chloride (98-107) mmol/L Carbon Dioxide (21-32) mmol/L Anion Gap (3-11) BUN (7-18) mg/dl Creatinine (0.6-1.4) mg/dl Est Cr Clr Drug Dosing ml/min Est GFR ( Amer) ml/min Est GFR (Non-Af Amer) ml/min BUN/Creatinine Ratio (10-20) Glucose (70-99) mg/dl Calcium (8.5-10.1) mg/dl Magnesium (1.8-2.4) mg/dl Total Bilirubin (0.2-1) mg/dl AST (15-37) U/L ALT (12-78) U/L Alkaline Phosphatase (45-117) U/L Troponin I (0-0.045) ng/ml Total Protein (6.4-8.2) gm/dl Albumin (3.4-5.0) gm/dl Globulin (2.5-4.0) gm/dl Albumin/Globulin Ratio (0.9-2) TSH (0.300-4.500) uIu/ml COVID-19 Eval Order Covid19 at [facility] SARS-CoV-2 (PCR) NEGATIVE (Negative) Administered Medications Discontinued Medications Acetaminophen (Acetaminophen 325 Mg Tab) 650 mg PO NOW STA Stop: 04/08/21 16:20 Last Admin: 04/08/21 17:08 Dose: Not Given Documented by: [id number] Ondansetron HCl (Ondansetron Inj 2 Mg/Ml 2 Ml Vial) 4 mg IV NOW STA Stop: 04/08/21 16:20 Last Admin: 04/08/21 16:46 Dose: 4 mg Documented by: [id number] Imaging Data Radiologist's Impression: Abdomen/Pelvis CT 04/08/21 16:19 CT SCAN OF THE ABDOMEN AND PELVIS WITHOUT IV CONTRAST CLINICAL HISTORY: Generalized abdominal pain. Nausea. COMPARISON STUDY: Abdominal CT dated 05/05/2020. TECHNIQUE: CT scan of the abdomen and pelvis is performed from the lung bases to the proximal femora. Images are reviewed in the axial, sagittal, and coronal planes. IV contrast was not administered for this examination. Note that the ex amination was performed in significantly suboptimal fashion without oral and IV contrast. The examination is compromised by motion artifact. A dose lowering technique was utilized adhering to the principles of ALARA. CT DOSE: 1165.07 mGy.cm FINDINGS: Lung bases: The patient is status post midline sternotomy and mitral valve surgery. The heart is enlarged and without pericardial effusion. The coronary arteries are densely calcified. Dependent atelectasis at the right lung base is similar to previous. Probable scarring seen at both lung bases. No airspace consolidation is seen typical for pneumonia and there is no pleural effusion.. A small hiatal hernia is noted. Liver: The unenhanced liver is normal in size, contour, and attenuation. There is no intrahepatic biliary ductal dilatation. Gallbladder: Surgically absent noting clips in the gallbladder fossa. Spleen: Normal in size and attenuation. 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 Pancreas: The unenhanced pancreas is moderately atrophic and grossly unremarkable. Adrenal glands: Unremarkable. Kidneys: The unenhanced kidneys are markedly atrophic. There is moderate to severe bilateral hydroureteronephrosis. The ureters are dilated to the level of the bladder. No renal calculi are identified. Extensive renovascular calcifications are noted. The kidneys are infiltrated by numerous simple and complex cysts which measure up to 4.1 cm. Abdominal vasculature: There is advanced atherosclerotic calcification of the abdominal aorta. The patient is status post aortoiliac stent graft repair of an infrarenal abdominal aortic aneurysm. No significant residual aneurysm sac is identified. 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 No bowel obstruction is identified. Peritoneum: There is no intraperitoneal free air or abdominal ascites. There is laxity of the ventral abdominal wall with diastases of the rectus musculature and protrusion of bowel contents. Lymphadenopathy: None. Pelvic viscera: The prostate gland is mildly enlarged and heterogeneous noting median lobe hypertrophy. The bladder wall is thickened and trabeculated indicating chronic outlet obstruction. There are bilateral fat-containing inguinal hernias. Skeletal structures: The skeletal structures are osteopenic. There is advanced lumbosacral spondylosis. Erosive degenerative change at L4-L5 is similar to previous. A chronic compression deformity of L2 is unchanged. No lytic or blastic lesions are seen. IMPRESSION: 1. There is marked renal cortical atrophy with moderate to severe bilateral hyd roureteronephrosis. Both ureters are dilated to the level of the bladder, and this may be related to bladder obstruction. The bladder is only partially distended. 2. 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 No bowel obstruction is seen. 3. Cardiomegaly. 4. Additional chronic changes as above. ACT 112: Negative or not required by law. Electronically signed by: Walker Ellis M.D. 04/08/2021 5:05 PM Chest X-Ray 04/08/21 16:19 XR chest 1V portable CLINICAL HISTORY: weakness COMPARISON STUDY: May 05, 2020 FINDINGS: No pneumothorax. Small to moderate left pleural effusion is seen. Mixed reticular and airspace opacities are seen in bilateral bases could represent atelectasis/infiltrates. Mild pleural thickening at the right lateral chest wall is unchanged since prio r. Lung volumes are decreased with crowded lung markings. Cardiac silhouette is within upper limits of normal and partially obscured by surrounding opacities. 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 No significant pulmonary vascular congestion.. Aorta is calcified. Visualized osseous structures: Unremarkable. Vertebral bodies are not well seen. Midline sternotomy wires are seen. IMPRESSION: 1. Small to moderate left pleural effusion. 2. Atelectasis/infiltrates at bilateral lower lungs. 3. Atherosclerosis. ACT 112: Negative or not required by law. The above report was generated using voice recognition software. It may contain grammatical, syntax or spelling errors. Electronically signed by: Sheyla Kaur DO 04/08/2021 5:[address] 04/08/21 16:19 CT head/brain wo con CLINICAL HISTORY: headache COMPARISON STUDY: No previous studies for comparison. TECHNIQUE: Axial CT of the brain is performed from the vertex to the skull base. IV contrast was not administered for this examination. A dose lowering technique was utilized adhering to the principles of ALARA. CT DOSE: 1547.15 mGy.cm FINDINGS: No acute intracranial hemorrhage, no midline shift or space occupying lesions. Evaluation is slightly limited due to beam hardening artifact. Slight atrophic changes of brain parenchyma are seen. There are patchy white matter hypodensities likely on a small vessel basis. Mild calcifications of bilateral basal ganglia are seen. There is no evidence of pathologic ventricular dilatation. There are no acute depressed skull fractures are seen. Visualized paranasal sinuses and mastoid air cells are patent and well-aerated. Prominent vascular calcifications are seen within the anatomical region of bilateral carotid arteries and scalp vessels. IMPRESSION: 1. No acute intracranial hemorrhage, no midline shift or space-occupying l esions. 2. Chronic small vessel ischemia. 3. Minimal atrophic changes of brain parenchyma. 4. Prominent calcifications of the scalp vessels are seen. ACT 112: Negative or not required by law. The above report was generated using voice recognition software. It may contain grammatical, syntax or spelling errors. Electronically signed by: Sheyla Kaur DO 04/08/2021 4:56 PM Discharge Plan Visit Data Chief Complaint: Illness ED Provider: Lorenzo Delatorre Discharge Problem: Pleural effusion, ESRD on dialysis, Elevated troponin Forms Stand Alone Forms: [facility] Prescriptions Prescriptions: No Action atorvastatin 40 mg tablet 40 mg PO HS Qty: 90 RF: 3 Breo Ellipta 200-25 mcg/dose blister with device 1 inh INHALATION QAM Qty: 84 RF: 3 levothyroxine 88 mcg tablet 88 mcg PO DAILY Qty: 90 RF: 3 clopidogrel 75 mg tablet 75 mg PO DAILY Qty: 90 RF: 3 amiodarone 200 mg tablet 200 mg PO Q OTHER DAY Qty: 14 RF: 5 paroxetine HCl 20 mg tablet 20 mg PO HS Qty: 90 RF: 3 temazepam 15 mg capsule 30 mg PO HS PRN (Reason: Sleep) Qty: 60 RF: 0 Spiriva with HandiHaler 18 mcg capsule, w/inhalation device 1 cap INHALATION QAM Qty: 1 RF: 4 omeprazole 20 mg tablet,delayed release (DR/EC) 40 mg PO QAM RF: 0 Lyrica 75 mg capsule 75 mg PO QAM Qty: 30 RF: 3 aspirin [Aspirin Low Dose] 81 mg Tablet,Delayed Release (Dr/Ec) 81 mg PO DAILY RF: 0 Triphrocaps 1 mg capsule 1 mg PO DAILY RF: 0 calcium acetate(phosphat bind) 667 mg Capsule 667 mg PO TIDM RF: 0 docusate sodium 100 mg capsule 100 mg PO HS RF: 0 acetaminophen 325 mg capsule 650 mg PO BID PRN (Reason: FEVER/PAIN) RF: 0 sennosides [Senokot] 8.6 mg Tablet 8.6 mg PO DAILY PRN (Reason: Constipation) RF: 0 ipratropium-albuterol 0.5 mg-3 mg(2.5 mg base)/3 mL Solution For Nebulization 3 ml INHALATION Q4H PRN (Reason: Shortness Of Breath) RF: 0 lidocaine [Aspercreme (lidocaine HCl)] 4 % Adhesive Patch,Medicated 1 patch TOPICAL DAILY PRN (Reason: Pain) RF: 0 ondansetron HCl [Zofran] 2 mg/mL Solution 4 mg IV DIRECTED PRN (Reason: Nausea) RF: 0 sodium chloride 0.9 % [Normal Saline] Solution 100 ml IV DIRECTED PRN (Reason: CRAMPING/HYPOTENSION) RF: 0 ropinirole 0.25 mg Tablet 0.25 mg PO HS RF: 0 nitroglycerin [Nitrostat] 0.4 mg Tablet, Sublingual 0.4 mg sublingual DIRECTED PRN (Reason: Chest Pain) RF: 0 alum-mag hydroxide-simeth [Maalox] 200-200-20 mg/5 mL Suspension 30 ml PO DIRECTED PRN (Reason: Indigestion) RF: 0 famotidine 20 mg tablet 20 mg PO 3XWK RF: 0
[2021-04-08] MEDS ORDERED: ONDANSETRON INJ 2 MG/ML 2 ML VIAL IV STA (16:19)
[2021-04-08] MEDS ORDERED: ACETAMINOPHEN 325 MG TAB PO STA (16:19)
[2021-04-08 16:34] LABS: Basophils # (auto) 0.04 K/uL (0-0.2); Basophils % (auto) 0.5 %; Eosinophils # (auto) 0.31 K/uL (0-0.5); Eosinophils % (auto) 3.6 %; Hematocrit (blood only) 35.9 % (42-52); Immature Granulocytes # (auto) 0.05 K/uL (0.00-0.02); Immature Granulocytes % (auto) 0.6 %; Lymphocytes # (auto) 1.11 K/uL (1.2-3.4); Lymphocytes % (auto) 12.9 %; Mean Corpuscular Hemoglobin 32.2 pg (25-34); Mean Corpuscular Hgb Conc 33.4 g/dL (32-36); Mean Corpuscular Volume 96.2 fL (80-100); Mean Platelet Volume 9.4 fL (7.4-10.4); Monocytes # (auto) 0.89 K/uL (0.11-0.59); Monocytes % (auto) 10.4 %; Neutrophils # (auto) 6.18 K/uL (1.4-6.5); Platelet Count 148 K/uL (130-400); RDW Coefficient of Variation 14.7 % (11.5-14.5); RDW Standard Deviation 51.7 fL (36.4-46.3); Red Blood Count 3.73 M/uL (4.7-6.1); White Blood Count 8.58 K/uL (4.8-10.8)
[2021-04-08 16:49] LABS: INR 1.1 (0.9-1.1); Prothrombin Time 10.7 Seconds (9.0-12.0)
[2021-04-08 16:56] LABS: Albumin Globulin Ratio 0.9 (0.9-2); Albumin Level 3.6 gm/dl (3.4-5.0); BUN Creatinine Ratio 2.7 (10-20); Bilirubin,Total 0.8 mg/dl (0.2-1); Calcium 9.7 mg/dl (8.5-10.1); Creatinine Clr Calc Pharmacy 17.4 ml/min; Est GFR (African American) 12.6 ml/min; Est GFR (Non-African American) 10.9 ml/min; Globulin 3.8 gm/dl (2.5-4.0); Magnesium 2.1 mg/dl (1.8-2.4); Potassium 3.7 mmol/L (3.5-5.1); Thyroid Stimulating Hormone 2.62 uIu/ml (0.300-4.500); Total Protein 7.4 gm/dl (6.4-8.2); Troponin I 0.049 ng/ml (0-0.045)
--- NOTE | 2021-04-08 16:57 | CT Scan Report ---
CT head/brain wo con CLINICAL HISTORY: headache COMPARISON STUDY: No previous studies for comparison. TECHNIQUE: Axial CT of the brain is performed from the vertex to the skull base. IV contrast was not administered for this examination. A dose lowering technique was utilized adhering to the principles of ALARA. CT DOSE: 1547.15 mGy.cm FINDINGS: No acute intracranial hemorrhage, no midline shift or space occupying lesions. Evaluation is slightly limited due to beam hardening artifact. Slight atrophic changes of brain parenchyma are seen. There are patchy white matter hypodensities likely on a small vessel basis. Mild calcifications of bilateral basal ganglia are seen. There is no evidence of pathologic ventricular dilatation. There are no acute depressed skull fractures are seen. Visualized paranasal sinuses and mastoid air c ells are patent and well-aerated. Prominent vascular calcifications are seen within the anatomical region of bilateral carotid arteries and scalp vessels. IMPRESSION: 1. No acute intracranial hemorrhage, no midline shift or space-occupying lesions. 2. Chronic small vessel ischemia. 3. Minimal atrophic changes of brain parenchyma. 4. Prominent calcifications of the scalp vessels are seen. ACT 112: Negative or not required by law. The above report was generated using voice recognition software. It may contain grammatical, syntax o r spelling errors. Electronically signed by: Sheyla Kaur DO 04/08/2021 4:56 PM
--- NOTE | 2021-04-08 17:07 | CT Scan Report ---
CT SCAN OF THE ABDOMEN AND PELVIS WITHOUT IV CONTRAST CLINICAL HISTORY: Generalized abdominal pain. Nausea. COMPARISON STUDY: Abdominal CT dated 05/05/2020. TECHNIQUE: CT scan of the abdomen and pelvis is performed from the lung bases to the proximal femora. Images are reviewed in the axial, sagittal, and coronal planes. IV contrast was not administered for this examination. Note that the examination was performed in significantly suboptimal fashion withou t oral and IV contrast. The examination is compromised by motion artifact. A dose lowering technique was utilized adhering to the principles of ALARA. CT DOSE: 1165.07 mGy.cm FINDINGS: Lung bases: The patient is status post midline sternotomy and mitral valve surgery. The heart is enla rged and without pericardial effusion. The coronary arteries are densely calcified. Dependent atelect asis at the right lung base is similar to previous. Probable scarring seen at both lung bases. No air space consolidation is seen typical for pneumonia and there is no pleural effusion.. A small hiatal h ernia is noted. Liver: The unenhanced liver is normal in size, contour, and attenuation. There is no intrahepatic natalya iary ductal dilatation. Gallbladder: Surgically absent noting clips in the gallbladder fossa. Spleen: Normal in size and attenuation. There is a 2.0 cm peripherally calcified splenic artery aneur ysm. Pancreas: The unenhanced pancreas is moderately atrophic and grossly unremarkable. Adrenal glands: Unremarkable. Kidneys: The unenhanced kidneys are markedly atrophic. There is moderate to severe bilateral hydroure teronephrosis. The ureters are dilated to the level of the bladder. No renal calculi are identified. Extensive renovascular calcifications are noted. The kidneys are infiltrated by numerous simple and c omplex cysts which measure up to 4.1 cm. Abdominal vasculature: There is advanced atherosclerotic calcification of the abdominal aorta. The pa tient is status post aortoiliac stent graft repair of an infrarenal abdominal aortic aneurysm. No sig nificant residual aneurysm sac is identified. 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 No bowel obstruction is identified. Peritoneum: There is no intraperitoneal free air or abdominal ascites. There is laxity of the ventral abdominal wall with diastases of the rectus musculature and protrusion of bowel contents. Lymphadenopathy: None. Pelvic viscera: The prostate gland is mildly enlarged and heterogeneous noting median lobe hypertroph y. The bladder wall is thickened and trabeculated indicating chronic outlet obstruction. There are bi lateral fat-containing inguinal hernias. Skeletal structures: The skeletal structures are osteopenic. There is advanced lumbosacral spondylosi s. Erosive degenerative change at L4-L5 is similar to previous. A chronic compression deformity of L2 is unchanged. No lytic or blastic lesions are seen. IMPRESSION: 1. There is marked renal cortical atrophy with moderate to severe bilateral hydroureteronephrosis. Boris th ureters are dilated to the level of the bladder, and this may be related to bladder obstruction. T he bladder is only partially distended. 2. 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 No raheem l obstruction is seen. 3. Cardiomegaly. 4. Additional chronic changes as above. ACT 112: Negative or not required by law. Electronically signed by: Walker Ellis M.D. 04/08/2021 5:05 PM
--- NOTE | 2021-04-08 17:15 | XRay Report ---
XR chest 1V portable CLINICAL HISTORY: weakness COMPARISON STUDY: May 05, 2020 FINDINGS: No pneumothorax. Small to moderate left pleural effusion is seen. Mixed reticular and airspace opacities are seen in b ilateral bases could represent atelectasis/infiltrates. Mild pleural thickening at the right lateral chest wall is unchanged since prior. Lung volumes are decreased with crowded lung markings. Cardiac silhouette is within upper limits of normal and partially obscured by surrounding opacities. 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 No significant pulmonary vascular congestion.. Aorta is calcified. Visualized osseous structures: Unremarkable. Vertebral bodies are not well seen. Midline sternotomy wires are seen. IMPRESSION: 1. Small to moderate left pleural effusion. 2. Atelectasis/infiltrates at bilateral lower lungs. 3. Atherosclerosis. ACT 112: Negative or not required by law. The above report was generated using voice recognition software. It may contain grammatical, syntax o r spelling errors. Electronically signed by: Sheyla Kaur DO 04/08/2021 5:14 PM
--- NOTE | 2021-04-08 18:47 | History & Physical Report ---
Date of Service April 08, 2021 Assessment & Plan (1) Occipital headache: 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 Doubt temporal arteritis - wrong location for such. [id number] check sed rate and crp. Check c-spine CT -- r/o fracture, confirm presence of DJD, etc. If inflammatory markers are high may need to consider MRI cervical spine and/or MRI brain. For pain control - order k-pad heating pad. Voltaren gel qid. May need additional meds for relief of symptoms. (2) Neck pain: Severely restricted passive ROM of neck. see above. (3) Nausea: GERD? related to headaches? non-GI (Cardiac/ischemic)? other? cont PPI (4) Weakness: Patient is very poor historian. Attribute many of his symptoms including his weakness to having his HD changed several weeks ago? He sounds like he has had severe, worsening deconditioning. I can't exclude leg weakness due to a cervical spine issue?? He doesn't have any obvious infectious etiology but does report chills on regular basis. Obtain blood cultures x 2 to be complete. Needs PT, OT. (5) COPD (chronic obstructive pulmonary disease): Continue home inhalers. During my admission assessment - without NC O2 - O2 sats would drop to the 80s. Uncertain if hypoxia is due to COPD or other entity. Cont NC O2. He doesn't look overtly volume overloaded at this time. No obvious pneumonia. VTE is possible - records indicate h/o DVT and he has been quite sedentary. Check dopplers of legs. Consider CTA Chest in coordination with hemodialysis. (6) Hypoxia: see discussion above in "COPD" (7) TORRIE (obstructive sleep apnea): (8) Ileostomy in place: functioning normally (9) Hypothyroidism: TSH today wnl cont synthroid w/o changes (10) S/P MVR (mitral valve repair): noted echo in 2019 showed intact mitral valve function no signs/symptoms of valve failure (11) History of DVT (deep vein thrombosis): noted obtain b/l LE Venous dopplers r/o DVT in meantime -- heparin 5000 BID (12) Atrial fibrillation: paroxysmal NOT on chronic anticoagulation remains on amiodarone 200mg q2days place on telemetry (13) Chills: infectious etiology? check blood cultures x 2 hold off on antibiotics for now TSH wnl (14) Elevated troponin: likely myocardial demand ischemia no evidence of ACS (15) End stage renal disease on dialysis: RUE AV fistula dialyzes at [facility] in [place] primary associate curator - Dr Manuela Landrum consult [facility] for HD management usual schedule M/W/F had HD today - details of that session unceratin continue phosphate binders (16) CAD (coronary artery disease): feeling poorly for several weeks. uncertain if those symptoms could be 2nd to CAD. Cont asa, statin, plavix (17) Hydroureteronephrosis: b/l, severe, on CT today. likely due to BPH?? does not make urine however. uncertain if any Rx is needed given his ESRD status. (18) Sore throat: candidiasis of mouth/throat? 2nd to GERD? other? nystatin solution 5cc qid for possible thrush. (19) DVT prophylaxis: heparin 5000 BID History of Present Illness Chief Complaint: illness Primary Care Provider: Emil Lazcano MD 75yo male with h/o ESRD on HD M/W/ at [facility] - follows with Dr Alcantar with [facility] - who presents with multiple complaints. He c/o the following - 1. posterior headache - occipital/neck - takes tylenol for it. Worse in the am upon awakening. No temporal tenderness or frontal headache. Looking to the left/turning the head & neck left makes it feel worse. Has right hand numbness - present for 2 months. Has associated nausea. Had headaches as a child - migraines. His headaches worsen after getting dialysis treatments. Tylenol not helping. 2. poor appetite last few weeks. States "for 3 weeks.". 3. after HD today he tried to stand to get into the wheelchair but he had generalized weakness. He almost fell but luckily the nurse "caught him." He felt dizzy/lightheaded. The latter is not a chronic issue. 4. using wheelchair mainly at home rather than walking. Earlier in the spring his walking got worse. 5. c/o dyspnea x 3 weeks. Using neb treatments at home to help symptoms without any improvement. Dyspnea is mainly exertional. 6. c/o stomach pain. Has ileostomy. Has nausea when he wakes up in the morning. GI symptoms also present for 3 weeks. He mentions 3 weeks ago because his dry weight was changed several weeks ago by nephrology. His treatments were extended a bit longer as well to pull more fluid. Today he states he asked the dialysis nurse not to pull fluid? Allergies Allergy/AdvReac Type Severity Reaction Status Date / Time oxycodone AdvReac Severe DELIRIUM Verified 04/08/21 16:18 tramadol AdvReac Severe dizziness;a Verified 04/08/21 16:19 nxiety;sob gabapentin AdvReac Intermediate Nausea Verified 04/08/21 16:19 Home Medications Medication Instructions Recorded Confirmed Type calcium acetate(phosphat bind) 667 mg PO TIDM 08/23/18 04/08/21 History docusate sodium 100 mg capsule 100 mg PO HS 05/31/19 04/08/21 History Triphrocaps 1 mg PO DAILY 05/01/20 04/08/21 History aspirin [Aspirin Low Dose] 81 mg PO DAILY 05/01/20 04/08/21 History omeprazole 20 mg tablet,delayed 40 mg PO QAM tab 07/19/20 04/08/21 History release atorvastatin 40 mg tablet 40 mg PO HS #90 tab 11/13/20 04/08/21 Rx fluticasone furoate 200 1 inh INHALATION QAM #84 ea 11/23/20 04/08/21 Rx mcg-vilanterol 25 mcg/dose inhalation powder levothyroxine 88 mcg tablet 88 mcg PO DAILY #90 tab 11/23/20 04/08/21 Rx clopidogrel 75 mg tablet 75 mg PO DAILY #90 tab 12/24/20 04/08/21 Rx amiodarone 200 mg tablet 200 mg PO Q OTHER DAY #14 tab 01/10/21 04/08/21 Rx paroxetine HCl 20 mg tablet 20 mg PO HS #90 tab 01/21/21 04/08/21 Rx pregabalin 75 mg capsule 75 mg PO QAM #30 cap 01/30/21 04/08/21 Rx temazepam 15 mg capsule 30 mg PO HS PRN #60 cap 03/27/21 04/08/21 Rx tiotropium bromide 18 mcg capsule 1 cap INHALATION QAM #1 inh 03/27/21 04/08/21 Rx with inhalation device acetaminophen 650 mg PO BID PRN 04/08/21 04/08/21 History alum-mag hydroxide-simeth [Maalox] 30 ml PO DIRECTED PRN 04/08/21 04/08/21 History famotidine 20 mg PO 3XWK 04/08/21 04/08/21 History ipratropium-albuterol 3 ml INHALATION Q4H PRN 04/08/21 04/08/21 History lidocaine [Aspercreme (lidocaine 1 patch TOPICAL DAILY PRN 04/08/21 04/08/21 History HCl)] nitroglycerin [Nitrostat] 0.4 mg SUBLINGUAL DIRECTED PRN 04/08/21 04/08/21 History ondansetron HCl [Zofran] 4 mg IV DIRECTED PRN 04/08/21 04/08/21 History ropinirole 0.25 mg PO HS 04/08/21 04/08/21 History sennosides [Senokot] 8.6 mg PO DAILY PRN 04/08/21 04/08/21 History sodium chloride 0.9 % [Normal 100 ml IV DIRECTED PRN 04/08/21 04/08/21 History Saline] Past Med/Surg History Medical History (Updated 04/09/21 @ 02:42 by Tan Chacon) AAA (abdominal aortic aneurysm) Acute osteomyelitis of foot Anemia Anemia, chronic renal failure Anxiety Anxiety Aspiration pneumonia Atrial fibrillation Atrial fibrillation PAROXYSMAL- ON ASA PER RECORDS AV fistula right arm CAD (coronary artery disease) CAD (coronary artery disease) S/P CABG X2 (DURING MVR) 2010 Chronic back pain Chronic GERD COPD (chronic obstructive pulmonary disease) COPD (chronic obstructive pulmonary disease) CVA (cerebral vascular accident) "NO RESIDUAL EFFECTS" PER RECORDS Delirium Depression Dermatitis Diarrhea Diastolic CHF DVT (deep venous thrombosis) Elevated troponin Encounter for central line placement ESRD (end stage renal disease) ESRD (end stage renal disease) on dialysis ESRD (end stage renal disease) on dialysis Gangrene Gangrene of toe right toes REASON FOR PROCEDURE Generalized weakness GERD (gastroesophageal reflux disease) Gram negative sepsis H/O: gout Hyperkalemia Hyperlipidemia Hypomagnesemia Hypotension Hypothyroid Hypothyroidism Hypothyroidism Ileostomy in place Ischemic colitis Memory loss or impairment Myocardial infarct, old 2010 Necrosis of colon Non-healing wound Orthostatic hypotension Peripheral vascular disease Peripheral vascular disease Proctocolitis Shortness of breath Valvular disease S/P MVR (2010); ?AVR PER RECORDS Vitamin D deficiency Surgical History Difficult intubation B/L Anteriogram, Right femoral to anterior tibial cadaver vein bypass= 08/06/18= Grade view 4, MAC 3 --> Glidescope #3, ETT 7.5 at [facility] H/O abdominal aortic aneurysm repair 2011 H/O [id number] bypass 2012 H/O mitral valve repair 2010; ?AVR PER RECORDS Hx of CABG S/P CABG X2 (DURING MVR) 2010 S/P AAA repair S/P ablation of atrial fibrillation S/P CABG x 2 S/P cholecystectomy S/P cholecystectomy S/P femoral-popliteal bypass surgery S/P MVR (mitral valve repair) Family History Mother Essential hypertension Father , age 76 Myocardial infarction Denies family history of Colon cancer Ovarian cancer Prostate cancer Breast cancer Social History (Updated 04/08/21 @ 19:09 by Tan Chacon) Smoking Status: Former smoker Tobacco Type: Cigarettes Years Smoked: 5; Second Hand Exposure: No; Hx Alcohol Use: No Hx Substance Use: No Preferred Language: Martiniquais Communication Ability: Effective Visual Impairment: No Limitations Heel Reducer Required: No Beliefs That Will Affect Care: None marital status: / marital status details: 1 daughter Current Living Situation: Family Current Living Situation Comment: lives with mother & his sister in [facility] 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 Feels Safe at Home: Yes Seatbelt Use: always Assistive Devices: Walker Review of Systems Constitutional: + chills ("cold" after HD sessions, and rigors on non-HD days as well ), + weakness and + anorexia; no fever and no body aches Eyes: + worsening vision (for 3 weeks ) Ear, Nose, Mouth, Throat: + sore throat; no nasal congestion Respiratory: + cough (intermittent ) and + dyspnea on exertion Cardiovascular: no chest pain and no edema Gastrointestinal: + nausea and + diarrhea/loose stools (via ostomy; empties bag 4x's day ); no abdominal pain, no vomiting and no blood in stools Genitourinary: + problem reported (rare urine production ) Musculoskeletal: + back pain (occasional ) and + neck pain Integumentary: no rash Neurologic: as per Subjective / HPI, + generalized weakness, + paresthesia and + headache(s) Psychiatric: memory troubles Endocrine: denies diabetes Physical Exam Constitutional: + altered mental status; no acute distress Eyes: PERRL; no nystagmus ENMT: Mouth: + oropharynx abnormality (Mild erythema of throat) Neck: trachea midline, no thyromegaly severely restricted passive ROM of neck - rotation restricted; tender paraspinal areas of cervical spine. Respiratory: no respiratory distress Auscultation: + rales (Bases b/l ) and + wheezes (Occasional ) Cardiovascular: Rate/Rhythm: regular rate and regular rhythm Heart Sounds: normal S1, normal S2 and + murmur Vessels: posterior tibial pulses present and dorsalis pedis pulses present; no JVD Extremities: + AV fistula (Right arm - with thrill/bruit); no edema Gastrointestinal (Abdomen): normal bowel sounds, soft, nontender, no hepatosplenomegaly ileostomy right side of abdomen -- brown stool in bag Musculoskeletal: Extremities: + clubbing TMA right foot (all toes absent); neuropathic changes of all toes, left foot right leg is larger than left leg; multiple scars on b/l legs Skin: abrasions and tiny ulcerations of toes, left foot, multiple toes Neurologic: moves all extremities and + confused; no focal motor deficits Psychiatric: Orientation: alert, oriented to person and oriented to place; + not oriented to time Lymphatic: no cervical lymphadenopathy Results & Data Results & Data ([facility]) Vital Signs (Past 12 Hours) Vital Signs Temp Pulse Resp BP Pulse Ox 04/08/21 15:33 36.8 C 62 20 165/86 H 91 Laboratory Results Microbiology 04/08/21 16:00 Blood Aerobic Blood Culture - Pending 04/08/21 16:00 Blood Anaerobic Blood Culture - Pending 04/08/21 20:32 Blood Aerobic Blood Culture - Pending 04/08/21 20:32 Blood Anaerobic Blood Culture - Pending Labs 04/08/21 04/08/21 04/08/21 16:00 16:00 16:00 WBC 8.58 RBC 3.73 L Hgb 12.0 L Hct 35.9 L MCV 96.2 MCH 32.2 MCHC 33.4 RDW Std Deviation 51.7 H RDW Coeff of Jolanta 14.7 H Plt Count 148 MPV 9.4 Immature Gran % (Auto) 0.6 Neut % (Auto) 72.0 Lymph % (Auto) 12.9 Rutherford % (Auto) 10.4 Eos % (Auto) 3.6 Baso % (Auto) 0.5 Neut # (Auto) 6.18 Lymph # (Auto) 1.11 L Rutherford # (Auto) 0.89 H Eos # (Auto) 0.31 Baso # (Auto) 0.04 Immature Gran # (Auto) 0.05 H ESR PT 10.7 INR 1.1 Sodium 135 L Potassium 3.7 Chloride 97 L Carbon Dioxide 29 Anion Gap 9.0 BUN 13 Creatinine 4.85 H* Est Cr Clr Drug Dosing 17.4 Est GFR ( Amer) 12.6 Est GFR (Non-Af Amer) 10.9 BUN/Creatinine Ratio 2.7 L Glucose 85 Calcium 9.7 Magnesium 2.1 Total Bilirubin 0.8 AST 16 ALT 18 Alkaline Phosphatase 121 H Troponin I 0.049 H* C-Reactive Protein 1.89 H Total Protein 7.4 Albumin 3.6 Globulin 3.8 Albumin/Globulin Ratio 0.9 TSH 2.620 Nasal Screen MRSA (PCR) COVID-19 Eval Order SARS-CoV-2 (PCR) 04/08/21 04/08/21 04/08/21 16:00 16:50 16:50 WBC RBC Hgb Hct MCV MCH MCHC RDW Std Deviation RDW Coeff of Jolanta Plt Count MPV Immature Gran % (Auto) Neut % (Auto) Lymph % (Auto) [place] % (Auto) Eos % (Auto) Baso % (Auto) Neut # (Auto) Lymph # (Auto) [place] # (Auto) Eos # (Auto) Baso # (Auto) Immature Gran # (Auto) ESR 27 H PT INR Sodium Potassium Chloride Carbon Dioxide Anion Gap BUN Creatinine Est Cr Clr Drug Dosing Est GFR ( Amer) Est GFR (Non-Af Amer) BUN/Creatinine Ratio Glucose Calcium Magnesium Total Bilirubin AST ALT Alkaline Phosphatase Troponin I C-Reactive Protein Total Protein Albumin Globulin Albumin/Globulin Ratio TSH Nasal Screen MRSA (PCR) COVID-19 Eval Order Covid19 at [facility] SARS-CoV-2 (PCR) NEGATIVE 04/08/21 22:30 WBC RBC Hgb Hct MCV MCH MCHC RDW Std Deviation RDW Coeff of Jolanta Plt Count MPV Immature Gran % (Auto) Neut % (Auto) Lymph % (Auto) [place]utherford % (Auto) Eos % (Auto) Baso % (Auto) Neut # (Auto) Lymph # (Auto) [place]utherford # (Auto) Eos # (Auto) Baso # (Auto) Immature Gran # (Auto) ESR PT INR Sodium Potassium Chloride Carbon Dioxide Anion Gap BUN Creatinine Est Cr Clr Drug Dosing Est GFR ( Amer) Est GFR (Non-Af Amer) BUN/Creatinine Ratio Glucose Calcium Magnesium Total Bilirubin AST ALT Alkaline Phosphatase Troponin I C-Reactive Protein Total Protein Albumin Globulin Albumin/Globulin Ratio TSH Nasal Screen MRSA (PCR) Negative COVID-19 Eval Order SARS-CoV-2 (PCR) Diagnostic Findings Abdomen/Pelvis CT 04/08/21 16:19 CT SCAN OF THE ABDOMEN AND PELVIS WITHOUT IV CONTRAST CLINICAL HISTORY: Generalized abdominal pain. Nausea. COMPARISON STUDY: Abdominal CT dated 05/05/2020. TECHNIQUE: CT scan of the abdomen and pelvis is performed from the lung bases to the proximal femora. Images are reviewed in the axial, sagittal, and coronal planes. IV contrast was not administered for this examination. Note that the examination was performed in significantly suboptimal fashion without oral and IV contrast. The examination is compromised by motion artifact. A dose lowering technique was utilized adhering to the principles of ALARA. CT DOSE: 1165.07 mGy.cm FINDINGS: Lung bases: The patient is status post midline sternotomy and mitral valve surgery. The heart is enlarged and without pericardial effusion. The coronary arteries are densely calcified. Dependent atelectasis at the right lung base is similar to previous. Probable scarring seen at both lung bases. No airspace consolidation is seen typical for pneumonia and there is no pleural effusion.. A small hiatal hernia is noted. Liver: The unenhanced liver is normal in size, contour, and attenuation. There is no intrahepatic biliary ductal dilatation. Gallbladder: Surgically absent noting clips in the gallbladder fossa. Spleen: Normal in size and attenuation. 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 Pancreas: The unenhanced pancreas is moderately atrophic and grossly unremarkable. Adrenal glands: Unremarkable. Kidneys: The unenhanced kidneys are markedly atrophic. There is moderate to severe bilateral hydroureteronephrosis. The ureters are dilated to the level of the bladder. No renal calculi are identified. Extensive renovascular calcifications are noted. The kidneys are infiltrated by numerous simple and complex cysts which measure up to 4.1 cm. Abdominal vasculature: There is advanced atherosclerotic calcification of the abdominal aorta. The patient is status post aortoiliac stent graft repair of an infrarenal abdominal aortic aneurysm. No significant residual aneurysm sac is identified. 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 No bowel obstruction is identified. Peritoneum: There is no intraperitoneal free air or abdominal ascites. There is laxity of the ventral abdominal wall with diastases of the rectus musculature and protrusion of bowel contents. Lymphadenopathy: None. Pelvic viscera: The prostate gland is mildly enlarged and heterogeneous noting median lobe hypertrophy. The bladder wall is thickened and trabeculated indicating chronic outlet obstruction. There are bilateral fat-containing inguinal hernias. Skeletal structures: The skeletal structures are osteopenic. There is advanced lumbosacral spondylosis. Erosive degenerative change at L4-L5 is similar to previous. A chronic compression deformity of L2 is unchanged. No lytic or blastic lesions are seen. IMPRESSION: 1. There is marked renal cortical atrophy with moderate to severe bilateral hydroureteronephrosis. Both ureters are dilated to the level of the bladder, and this may be related to bladder obstruction. The bladder is only partially distended. 2. 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 No bowel obstruction is seen. 3. Cardiomegaly. 4. Additional chronic changes as above. ACT 112: Negative or not required by law. Electronically signed by: Walker Ellis M.D. 04/08/2021 5:05 PM Chest X-Ray 04/08/21 16:19 XR chest 1V portable CLINICAL HISTORY: weakness COMPARISON STUDY: May 05, 2020 FINDINGS: No pneumothorax. Small to moderate left pleural effusion is seen. Mixed reticular and airspace opacities are seen in bilateral bases could represent atelectasis/infiltrates. Mild pleural thickening at the right lateral chest wall is unchanged since prior. Lung volumes are decreased with crowded lung markings. Cardiac silhouette is within upper limits of normal and partially obscured by surrounding opacities. 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 No significant pulmonary vascular congestion.. Aorta is calcified. Visualized osseous structures: Unremarkable. Vertebral bodies are not well seen. Midline sternotomy wires are seen. IMPRESSION: 1. Small to moderate left pleural effusion. 2. Atelectasis/infiltrates at bilateral lower lungs. 3. Atherosclerosis. ACT 112: Negative or not required by law. The above report was generated using voice recognition software. It may contain grammatical, syntax or spelling errors. Electronically signed by: Sheyla Kaur DO 04/08/2021 5:[address] 04/08/21 16:19 CT head/brain wo con CLINICAL HISTORY: headache COMPARISON STUDY: No previous studies for comparison. TECHNIQUE: Axial CT of the brain is performed from the vertex to the skull base. IV contrast was not administered for this examination. A dose lowering technique was utilized adhering to the principles of ALARA. CT DOSE: 1547.15 mGy.cm FINDINGS: No acute intracranial hemorrhage, no midline shift or space occupying lesions. Evaluation is slightly limited due to beam hardening artifact. Slight atrophic changes of brain parenchyma are seen. There are patchy white matter hypodensities likely on a small vessel basis. Mild calcifications of bilateral basal ganglia are seen. There is no evidence of pathologic ventricular dilatation. There are no acute depressed skull fractures are seen. Visualized paranasal sin uses and mastoid air cells are patent and well-aerated. Prominent vascular calcifications are seen within the anatomical region of bilateral carotid arteries and scalp vessels. IMPRESSION: 1. No acute intracranial hemorrhage, no midline shift or space-occupying lesions. 2. Chronic small vessel ischemia. 3. Minimal atrophic changes of brain parenchyma. 4. Prominent calcifications of the scalp vessels are seen. ACT 112: Negative or not required by law. The above report was generated using voice recognition software. It may contain grammatical, syntax or spelling errors. Electronically signed by: Sheyla Kaur DO 04/08/2021 4:56 PM Code Status & VTE Plan Code Status full VTE Prophylaxis Plan VTE Prophylaxis will be ordered: Yes PG Care Time/CCT Total # of Minutes Spent Total Time Spent with Patient: Total time spent is greater than 50% in coordination of care (as documented) at patient's floor/unit and/or counseling patient: Coding Level of Care Code 73750 Initial Inpt Care Lvl 3 Diagnoses Occipital headache R51.9 Neck pain M54.2 Nausea R11.0 Weakness R53.1 COPD (chronic obstructive pulmonary disease) J44.9 Hypoxia R09.02 TRORIE (obstructive sleep apnea) G47.[address] Z93.2 Hypothyroidism E03.9 Hypothyroidism type: acquired S/P MVR (mitral valve repair) Z98.890 History of DVT (deep vein thrombosis) Z86.718 Atrial fibrillation I48.0 Atrial fibrillation type: paroxysmal Chills R68.83 Elevated troponin R77.8 End stage renal disease on dialysis N18.6; Z99.2 CAD (coronary artery disease) I25.10 Coronary Disease-Associated Artery/Lesion type: [place] artery [place] vs. transplanted heart: [place] heart Associated angina: without angina Hydroureteronephrosis N13.30 Sore throat J02.9 DVT prophylaxis Z29.9 (1) Atrial fibrillation Atrial fibrillation type: paroxysmal Qualified Code(s): I48.0 - Paroxysmal atrial fibrillation (2) Hypothyroidism Hypothyroidism type: acquired Qualified Code(s): E03.9 - Hypothyroidism, unspecified (3) CAD (coronary artery disease) Coronary Disease-Associated Artery/Lesion type: [place] artery [place] vs. transplanted heart: [place] heart Associated angina: without angina Qualified Code(s): I25.10 - Atherosclerotic heart disease of [place] coronary artery without angina pectoris
[2021-04-08 19:55] LABS: C Reactive Protein 1.89 mg/dl (0-0.29)
[2021-04-09] MEDS ORDERED: ONDANSETRON INJ 2 MG/ML 2 ML VIAL IV PRN (01:47)
[2021-04-09] MEDS ORDERED: TEMAZEPAM 15 MG CAPSULE PO PRN (01:47)
[2021-04-09] MEDS ORDERED: NITROGLYCERIN SL 0.4 MG/TAB TAB SL PRN (01:47)
[2021-04-09] MEDS ORDERED: ALBUT/IPRATROP 3MG/0.5MG NEB 3 ML VIAL INH PRN (01:47)
[2021-04-09] MEDS ORDERED: IPRATROPIUM BROMIDE/ALBUTEROL respimat INH INH SCH (01:47)
[2021-04-09] MEDS ORDERED: MoRPHine SULFATE 2 MG/ML CARP IV STA (02:14)
[2021-04-09] MEDS: DOCUSATE SODIUM 100 MG CAP PO SCH ×2 (02:53→20:35)
[2021-04-09] MEDS: DICLOFENAC SOD 1% GEL 100 GM TUBE EXT SCH ×5 (02:57→20:36)
[2021-04-09] MEDS: HEPARIN SOD 5,000 UNIT/0.5 ML VIAL SQ SCH ×3 (02:57→20:37)
[2021-04-09] MEDS: rOPINIRole HCL 0.25 MG TABLET PO SCH ×2 (02:57→20:35)
[2021-04-09] MEDS: PARoxetine HCL 20 MG TAB PO SCH ×2 (02:58→20:36)
[2021-04-09] MEDS: ATORVASTATIN 40 MG TAB PO SCH ×2 (02:58→20:36)
[2021-04-09] MEDS: LEVOTHYROXINE SODIUM 88 MCG TABLET PO SCH (05:45)
--- NOTE | 2021-04-09 07:03 | CT Scan Report ---
CERVICAL SPINE CT CT DOSE: 535.97 mGy.cm HISTORY: severe posterior neck pain; eval Fx, DJD, etc TECHNIQUE: Multiaxial CT images of the cervical spine were performed and reformatted in the sagittal and coronal plane without the use of contrast. A dose lowering technique was utilized adhering to e principles of ALARA. COMPARISON: None. FINDINGS: No fractures. No subluxation. Prevertebral soft tissues and the C1-C2 interval are intact. No pneumothorax. Moderate thickening of the visualized proximal esophagus. Moderate to severe facet d egenerative changes throughout the cervical spine. There is moderate to severe disc space narrowing a t C3-C4, C4-C5, and C6-C7. Mild disc space narrowing at C5-C6. IMPRESSION: 1. No fractures within the cervical spine. 2. Degenerative changes as described above. 3. Moderate thickening of the visualized proximal esophagus. ACT 112: Negative or not required by law. Electronically signed by: Joey Leggett M.D. 04/09/2021 7:01 AM
[2021-04-09] MEDS: IPRATROPIUM BROMIDE HFA INHALER INH SCH ×4 (07:13→19:38)
[2021-04-09] MEDS: ALBUTEROL HFA 8 GM INHALER INH SCH ×4 (07:14→19:38)
--- NOTE | 2021-04-09 07:16 | Ultrasound Report ---
ULTRASOUND BILATERAL LOWER EXTREMITY VENOUS CLINICAL HISTORY: Asymmetric legs. COMPARISON STUDY: Bilateral lower extremity venous ultrasound dated 05/24/2019. TECHNIQUE: Real-time, grayscale, and color Doppler sonography of the deep veins of the right and left lower extremity was performed from the inguinal crease to the calf. Compression and augmentation wer e utilized. FINDINGS: There is no sonographic evidence of deep venous thrombosis identified in the right or left lower extremity. The common femoral, superficial femoral, and popliteal veins are patent and normally compressible bilaterally. The greater saphenous vein and the profunda femoris vein at the junction w ith the common femoral vein are clear in both legs. The visualized calf veins are patent bilaterally. An arterial bypass in the right lower extremity appears occluded. 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 IMPRESSION: 1. There is no sonographic evidence of deep venous thrombosis identified in the right or left lower e xtremity. 2. An arterial bypass in the right lower extremity appears occluded. 3. A partially thrombosed right popliteal artery aneurysm is again noted. ACT 112: Negative or not required by law. Electronically signed by: Walker Ellis M.D. 04/09/2021 7:15 AM
[2021-04-09] MEDS: NEPHROCAPS PO SCH (08:37)
[2021-04-09] MEDS: UMECLIDINIUM BROMIDE 62.5MCG/BLISTER 7 PUFFS/INHALER INH SCH (08:37)
[2021-04-09] MEDS: PREGABALIN 75 MG CAP PO SCH (08:37)
[2021-04-09] MEDS: PANTOprazole 40 MG TAB PO SCH (08:38)
[2021-04-09] MEDS: FLUTICASONE/VILANTEROL 200/25MCG 14 PUFFS/INHALER INH SCH (08:38)
[2021-04-09] MEDS: CLOPIDOGREL BISULFATE 75 MG TAB PO SCH (08:39)
[2021-04-09] MEDS: NYSTATIN SUSP 500,000 U/5 ML UDC PO SCH ×4 (08:39→20:36)
[2021-04-09] MEDS: ASPIRIN 81 MG ECTAB PO SCH (08:39)
[2021-04-09] MEDS: AMIODARONE 200 MG TAB PO SCH (08:40)
[2021-04-09] MEDS: CALCIUM ACETATE 667 MG CAP/TAB PO SCH ×3 (08:40→18:00)
[2021-04-09 08:52] LABS: BUN Creatinine Ratio 2.6 (10-20); Creatinine Clr Calc Pharmacy 13.1 ml/min; Est GFR (Non-African American) 7.8 ml/min; Potassium 4.2 mmol/L (3.5-5.1)
--- NOTE | 2021-04-09 12:06 | Electrocardiogram Report ---
Test Reason : Blood Pressure : / mmHG Vent. Rate : 067 BPM Atrial Rate : 063 BPM P-R Int : 000 ms QRS Dur : 116 ms QT Int : 460 ms P-R-T Axes : 000 075 043 degrees QTc Int : 486 ms Sinus rhythm with 1st degree AV block Nonspecific ST and T wave abnormality Prolonged QT Abnormal ECG When compared with ECG of 05-MAY-2020 13:52, Nonspecific T wave abnormality now evident in Inferior leads Confirmed by Brian Calderon ([id number]) on 04/09/2021 12:06:26 PM Referred By: REFERRED SELF Confirmed By:Randall Calderon
--- NOTE | 2021-04-09 12:24 | Consultation Report ---
NEPHROLOGY CONSULTATION NOTE DATE OF CONSULTATION: 04/09/2021 REASON FOR CONSULTATION: Dialysis patient admitted with headache and dizziness. HISTORY OF PRESENT ILLNESS: The patient is a 75-year-old male who is on chronic dialysis Thursday, Thu, Thursday at the [facility] unit through Dr. Christina Alcantar. He had a routine dialysis yesterday wh en he started having severe headache as well as lightheadedness, dizziness and syncopal episode after he was done with dialysis. He has not been feeling good for the last few weeks with very poor appet ite and progressively worsening weakness as well as worsening dyspnea. There are significant issues with ambulation also. Because of the multitude of symptoms, [facility] Laboratory tests are consistent with ESRD. Vital signs appear acceptable; however, he is requiring oxygen at 3 liters. On the CAT scan, he does have severe bilateral hydroureteronephrosis consistent with severe bladder outlet obstruction. Chest x-ray shows small moderate pleural effusion. PAST MEDICAL AND SURGICAL HISTORY: Includes abdominal aortic aneurysm, history of osteomyelitis, ane lolis, ESRD, history of aspiration pneumonia, atrial fibrillation, AV fistula in the right arm, coronar y artery disease, status post CABG, chronic back pain, chronic GERD, COPD, history of CVA, depression , history of DVT, diastolic congestive heart failure, gout, history of gangrene of the toe, history o f MD, history of valvular heart disease, status post MVR in 2010, status post colostomy, status post CABG, mitral valve repair, aortoiliac femoral bypass, abdominal aortic aneurysm repair, cholecystecto my, ablation of atrial fibrillation, fem-pop bypass surgery. FAMILY HISTORY: Negative for renal disease or dialysis. SOCIAL HISTORY: Former smoker. No alcohol. He is a , lives with his daughter. Currently re tired. REVIEW OF SYSTEMS: As detailed in HPI. He was feeling progressively weak, poor appetite for the las t few weeks and yesterday after he was done with dialysis, he started having severe headache and ligh theadedness and had a syncopal episode, but did not fall as he was helped by the nurses. Other system s reviewed and are negative. PHYSICAL EXAMINATION: GENERAL: Elderly white male who is not in overt respiratory distress; however, he does not appear to be very comfortable. VITAL SIGNS: Blood pressure is 143/64, pulse rate 68, temperature 36.6, 96% on 3 liters nasal cannul a. HEENT: Mucous membrane is moist. NECK: Supple. CHEST: Bilaterally decreased breath sounds, prolonged expiration, bilateral crackles. CARDIOVASCULAR: S1 and S2 irregular. Systolic murmur heard. ABDOMEN: Soft, nontender. EXTREMITIES: Show no edema, but he has signs of advanced peripheral vascular disease in both legs. AV fistula in his right arm and has good bruit and thrill. DIAGNOSTIC STUDIES: CT abdomen and pelvis was reviewed and shows severe bilateral renal atrophy as w ell as bilateral hydroureteronephrosis. CT abdomen and pelvis does show severe bilateral hydrouretero nephrosis up to the level of the bladder. He did not have this on his CAT scan from last year. Hemog lobin 12, platelet count 148. Sodium 135, potassium 4.2, BUN 17, creatinine 6.39. ASSESSMENT AND PLAN: A 75-year-old male with end-stage renal disease, on chronic hemodialysis Thursday , Thursday, Thursday as well as extensive cardiopulmonary and vascular problems, admitted with progres sive generalized weakness, ambulatory difficulty as well as poor appetite and essentially failure to thrive for the last few weeks. 1. End-stage renal disease: Electrolytes are acceptable. He is definitely more short of breath liang n usual, but I am not so sure that is actually fluid overload, but this seems more deconditioning and pulmonary in etiology. However, we will try to take some fluid off tomorrow with dialysis. As per the patient, there was not any fluid removed yesterday with dialysis. 2. Bladder outlet obstruction: He has bilateral hydronephrosis as well as hydroureter related with bladder outlet obstruction. Recommendation will to be evaluated by urology. Job ID: [id number]
--- NOTE | 2021-04-09 15:46 | Urology Consultation ---
Date of Consultation April 09, 2021 Assessment & Plan (1) Bilateral hydronephrosis: 75yo M with multiple comorbidities admitted with headache and associated lightheadedness - Hospital course, CT imaging, and labs reviewed. - Plan of care and imaging reviewed with Dr. Benitez, on-call urologist. - CTAP remarkable for bilateral hydroureteronephrosis, which may be related to bladder obstruction/BPH. - He is afebrile, VSS. On 2L O2. - Labs reviewed, Creatinine 6.39 - Undergoing routine dialysis per Nephrology - Given his ESRD and very limited urine output, the bilateral hydronephrosis is likely clinically insignificant. Urine seems like an unlikely source of infection. However, if urine seems like a source of infection, then recommend Farmer catheter placement. Otherwise, no intervention indicated. - Thank you for allowing us to participate in the acute care of Mr. Perdue. - Please reconsult us with additional questions, concerns or changes in patient status. History of Present Illness Reason for Consultation: ESRD on HD, B/L hydro Attending Physician: Fatuma Araya MD History of Present Illness 75yo male with multiple comorbidities presented to the ER with c/o headache and lightheadedness following his dialysis treatment yesterday. CT abdomen pelvis notable for bilateral hydronephrosis. Urology consulted for ESRD on HD, B/L [place]. Past medical hx includes ESRD on HD, abdominal aortic aneurysm, history of osteomyelitis, anemia, ESRD, history of aspiration pneumonia, atrial fibril lation, AV fistula in the right arm, coronary artery disease, status post CABG, chronic back pain, chronic GERD, COPD, history of CVA, depression, history of DVT, diastolic congestive heart failure, gout, history of gangrene of the toe, history of AR, history of valvular heart disease, status post MVR in 2010, status post colostomy, status post CABG, mitral valve repair, aortoiliac femoral bypass, abdominal aortic aneurysm repair, cholecystectomy, ablation of atrial fibrillation, fem-pop bypass surgery. Chart review: Afebrile Wbc 8.58 Hgb 12.0 Cr 6.[address] abdomen pelvis 04/08- 1. There is marked renal cortical atrophy with moderate to severe bilateral hydroureteronephrosis. Both ureters are dilated to the level of the bladder, and this may be related to bladder obstruction. The bladder is only partially distended. 2. 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 No bowel obstruction is seen. 3. Cardiomegaly. Pt examined at bedside this afternoon. Sitting in wheelchair at time of exam. He reports intermittent mild suprapubic discomfort. Denies flank and abdominal pain. He reports b/l back pain, but states "it is his arthritis." Patient states he does not void. Denies fevers or chills. No nausea or vomiting. Patient states he gets dialysis 3x/week. Offers no additional complaints today Allergies Allergy/AdvReac Type Severity Reaction Status Date / Time oxycodone AdvReac Severe DELIRIUM Verified 04/08/21 16:18 tramadol AdvReac Severe dizziness;a Verified 04/08/21 16:19 nxiety;sob gabapentin AdvReac Intermediate Nausea Verified 04/08/21 16:19 Home Medications Medication Instructions Recorded Confirmed Type calcium acetate(phosphat bind) 667 mg PO TIDM 08/23/18 04/08/21 History docusate sodium 100 mg capsule 100 mg PO HS 05/31/19 04/08/21 History Triphrocaps 1 mg PO DAILY 05/01/20 04/08/21 History aspirin [Aspirin Low Dose] 81 mg PO DAILY 05/01/20 04/08/21 History omeprazole 20 mg tablet,delayed 40 mg PO QAM tab 07/19/20 04/08/21 History release atorvastatin 40 mg tablet 40 mg PO HS #90 tab 11/13/20 04/08/21 Rx fluticasone furoate 200 1 inh INHALATION QAM #84 ea 11/23/20 04/08/21 Rx mcg-vilanterol 25 mcg/dose inhalation powder levothyroxine 88 mcg tablet 88 mcg PO DAILY #90 tab 11/23/20 04/08/21 Rx clopidogrel 75 mg tablet 75 mg PO DAILY #90 tab 12/24/20 04/08/21 Rx amiodarone 200 mg tablet 200 mg PO Q OTHER DAY #14 tab 01/10/21 04/08/21 Rx paroxetine HCl 20 mg tablet 20 mg PO HS #90 tab 01/21/21 04/08/21 Rx pregabalin 75 mg capsule 75 mg PO QAM #30 cap 01/30/21 04/08/21 Rx temazepam 15 mg capsule 30 mg PO HS PRN #60 cap 03/27/21 04/08/21 Rx tiotropium bromide 18 mcg capsule 1 cap INHALATION QAM #1 inh 03/27/21 04/08/21 Rx with inhalation device acetaminophen 650 mg PO BID PRN 04/08/21 04/08/21 History alum-mag hydroxide-simeth [Maalox] 30 ml PO DIRECTED PRN 04/08/21 04/08/21 History famotidine 20 mg PO 3XWK 04/08/21 04/08/21 History ipratropium-albuterol 3 ml INHALATION Q4H PRN 04/08/21 04/08/21 History lidocaine [Aspercreme (lidocaine 1 patch TOPICAL DAILY PRN 04/08/21 04/08/21 History HCl)] nitroglycerin [Nitrostat] 0.4 mg SUBLINGUAL DIRECTED PRN 04/08/21 04/08/21 History ondansetron HCl [Zofran] 4 mg IV DIRECTED PRN 04/08/21 04/08/21 History ropinirole 0.25 mg PO HS 04/08/21 04/08/21 History sennosides [Senokot] 8.6 mg PO DAILY PRN 04/08/21 04/08/21 History sodium chloride 0.9 % [Normal 100 ml IV DIRECTED PRN 04/08/21 04/08/21 History Saline] Patient History Medical History (Updated 04/09/21 @ 15:38 by YISEL Rincon) AAA (abdominal aortic aneurysm) Acute osteomyelitis of foot Anemia Anemia, chronic renal failure Anxiety Anxiety Aspiration pneumonia Atrial fibrillation Atrial fibrillation PAROXYSMAL- ON ASA PER RECORDS AV fistula right arm CAD (coronary artery disease) CAD (coronary artery disease) S/P CABG X2 (DURING MVR) 2010 Chronic back pain Chronic GERD COPD (chronic obstructive pulmonary disease) COPD (chronic obstructive pulmonary disease) CVA (cerebral vascular accident) "NO RESIDUAL EFFECTS" PER RECORDS Delirium Depression Dermatitis Diarrhea Diastolic CHF DVT (deep venous thrombosis) Elevated troponin Encounter for central line placement ESRD (end stage renal disease) ESRD (end stage renal disease) on dialysis ESRD (end stage renal disease) on dialysis Gangrene Gangrene of toe right toes REASON FOR PROCEDURE Generalized weakness GERD (gastroesophageal reflux disease) Gram negative sepsis H/O: gout Hyperkalemia Hyperlipidemia Hypomagnesemia Hypotension Hypothyroid Hypothyroidism Hypothyroidism Ileostomy in place Ischemic colitis Memory loss or impairment Myocardial infarct, old 2010 Necrosis of colon Non-healing wound Orthostatic hypotension Peripheral vascular disease Peripheral vascular disease Proctocolitis Shortness of breath Valvular disease S/P MVR (2010); ?AVR PER RECORDS Vitamin D deficiency Surgical History Difficult intubation B/L Anteriogram, Right femoral to anterior tibial cadaver vein bypass= 08/06/18= Grade view 4, MAC 3 --> Glidescope #3, ETT 7.5 at [facility] H/O abdominal aortic aneurysm repair 2011 H/O [id number] bypass 2012 H/O mitral valve repair 2010; ?AVR PER RECORDS Hx of CABG S/P CABG X2 (DURING MVR) 2010 S/P AAA repair S/P ablation of atrial fibrillation S/P CABG x 2 S/P cholecystectomy S/P cholecystectomy S/P femoral-popliteal bypass surgery S/P MVR (mitral valve repair) Family History Mother Essential hypertension Father , age 76 Myocardial infarction Denies family history of Colon cancer Ovarian cancer Prostate cancer Breast cancer Social History (Updated 04/08/21 @ 19:09 by Tan Chacon) Smoking Status: Former smoker Tobacco Type: Cigarettes Years Smoked: 5; Second Hand Exposure: No; Do You Dip or Chew Tobacco: No; Hx Alcohol Use: No Hx Substance Use: No Preferred Language: Stateless Communication Ability: Effective Visual Impairment: No Limitations Marinator Required: No Beliefs That Will Affect Care: None marital status: / marital status details: 1 daughter Current Living Situation: Family Current Living Situation Comment: sister takes care of patient and patient's mother 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 Neurologic: awake Psychiatric: A+Ox3, euthymic affect Results & Data ([facility]) Vital Signs (Past 12 Hours) Vital Signs Temp Pulse Pulse Resp BP Pulse Ox Pulse Ox 04/09/21 15:15 80 20 94 04/09/21 13:29 91 04/09/21 11:40 36.6 C 65 18 138/67 96 04/09/21 08:51 68 04/09/21 07:55 36.6 C 65 18 143/64 H 96 04/09/21 07:14 73 20 98 04/09/21 05:01 167/76 H Pulse Ox Pulse Ox 04/09/21 15:15 04/09/21 13:29 92 84 L 04/09/21 11:40 04/09/21 08:51 04/09/21 07:55 04/09/21 07:14 04/09/21 05:01 PG Care Time/CCT Total # of Minutes Spent Total Time Spent with Patient: Total time spent is greater than 50% in coordination of care (as documented) at patient's floor/unit and/or counseling patient: Coding Level of Care Code 92625 Initial Inpt Care Lvl 2 Diagnoses Bilateral hydronephrosis N13.30
--- NOTE | 2021-04-09 16:51 | Consultation Report ---
GASTROINTESTINAL CONSULT NOTE DATE OF CONSULTATION : 04/09/2021 REASON FOR EVALUATION: Difficulty swallowing and abnormal CT scan of the neck. HISTORY OF PRESENT ILLNESS: The patient is a 75-year-old patient on dialysis Thursday, Thursday, ay, who for the last 2-3 weeks has been experiencing headache, abdominal pain and overall generalized weakness. He presented to the hospital where he was subsequently admitted through the Emergency [facility]. He had several tests performed including a CT of the neck, which revealed what appeared to be cher e thickening of the upper esophagus. The patient states that he is having trouble swallowing for the last 10-20 years, mostly when he is eating his meals. He says he eats all of his food first and the n drinks liquid later and sometimes the food backs up and he cannot swallow until things pass or he r egurgitates. First of all, he denies ever having had a barium swallow or EGD. PAST MEDICAL AND SURGICAL HISTORY: Extensive. He has severe peripheral vascular disease. He has an abdominal aortic aneurysm, atrial fibrillation, coronary artery disease, status post 2-vessel bypass during a mitral valve replacement operation. He has got COPD. He has had CVA with no residual effe cts. He has got congestive heart failure, end-stage renal disease. He has had gangrene toes, hyperl ipidemia, hypertension, hypothyroidism. He has had ischemic colitis, status post subtotal colectomy with an ileostomy, vitamin D deficiency. He has also had a cholecystectomy, femoral popliteal bypass , mitral valve repair, aortic aneurysm repair. PHYSICAL EXAMINATION: The patient is sitting in a bedside chair, in no acute distress. His vital si gns are normal. He is afebrile. I observed him swallow liquids through a straw with no difficulty a t all. IMPRESSION AND PLAN: The patient is having some intermittent solid food dysphagia with an abnormal C T scan suggesting a thickening in the upper esophagus. The patient is a poor candidate for sedation and he has dialysis Thursday, Thursday, Thursday, so hopefully we can get a barium swallow performed cierra orr morning before he has dialysis around 10:00 to get a better look at his esophagus to see if the re is indeed any physical narrowing of his esophagus. We will continue to follow the patient. Job ID: [id number]
--- NOTE | 2021-04-09 17:32 | Hospitalist Progress Note ---
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 Doubt temporal arteritis - wrong location for such. Also, ESR is presently low at 27 despite advanced age and renal failure. Check c-spine CT --with moderate to severe degenerative changes throughout cervical spine with moderate to severe disc space narrowing at C3-C7 Headache is improved now with Voltaren gel, heating pad, and Tylenol as needed (2) Neck pain: Severely restricted passive ROM of neck. see above. (3) Nausea: With progressively worsening dysphagia and regurgitation/vomiting of even liquids today that I witnessed shortly after eating Moderate thickening of proximal esophagus seen on CT scan of the cervical spine Consult GI appreciated-plan for barium swallow in the morning cont PPI Advised not to eat solid foods for tonight and then n.p.o. after midnight for study in the morning CT abdomen/pelvis without obstruction and he is putting stool in his ostomy (4) Weakness: Patient is very poor historian. Attribute many of his symptoms including his weakness to having his HD changed several weeks ago? He sounds like he has had severe, worsening deconditioning. I can't exclude leg weakness due to a cervical spine issue?? He doesn't have any obvious infectious etiology but does report chills on regular basis. Obtain blood cultures x 2 to be complete. No growth to date so far Needs PT, OT. (5) COPD (chronic obstructive pulmonary disease): Continue home inhalers. Continues to become hypoxic into the 80s with minimal exertion on room air- remains on O2 now Uncertain if hypoxia is due to COPD or other entity. Also has some pleural effusions on CT Plan for removal of extra fluid with hemodialysis tomorrow Cont NC O2. No obvious pneumonia. Dopplers of lower extremities negative for DVT I do not suspect PE (6) Hypoxia: see discussion above in "COPD" (7) TORRIE (obstructive sleep apnea): (8) Ileostomy in place: functioning normally (9) Hypothyroidism: TSH here wnl cont synthroid w/o changes (10) S/P MVR (mitral valve repair): noted echo in 2019 showed intact mitral valve function no signs/symptoms of valve failure (11) History of DVT (deep vein thrombosis): noted Bilateral venous Dopplers negative for DVT (12) Atrial fibrillation: paroxysmal NOT on chronic anticoagulation remains on amiodarone 200mg q2days place on telemetry-remains in sinus rhythm with wandering atrial pacemaker, first-degree AV block, rate 60s 70s (13) Chills: infectious etiology? 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 Nephrology for HD management usual schedule M/W/ Plan for dialysis tomorrow continue phosphate binders (16) CAD (coronary artery disease): No acute issues Cont asa, statin, plavix (17) Hydroureteronephrosis: b/l, severe, on CT here of abdomen/pelvis likely due to BPH?? does not make urine however. uncertain if any Rx is needed given his ESRD status. Nephrology recommended consultation with urology-did not feel this was clinically significant as he does not make urine No further evaluation needed (18) Sore throat: candidiasis of mouth/throat? 2nd to GERD? other? Continue nystatin solution 5cc qid for possible thrush. 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 He had just eaten it and then feels like food gets stuck in his chest. This has been ongoing and then worse in the last 3 weeks. Otherwise, still has some posterior neck pain but headache is improved. He denies pain in feet or legs but says he has no feeling in his legs/feet. Tele with sinus rhythm, 1st degree AVB, WAP, rates 60-70s Review of Systems Review of Systems: All systems reviewed & are unremarkable except as noted in HPI & below Physical Exam Constitutional: WD/WN, vitals as above + ill appearing (chronically) Eyes: + anicteric sclerae Neck: trachea midline, no thyromegaly Respiratory: normal respiratory effort, lungs clear to auscultation Cardiovascular: Rate/Rhythm: regular rate and regular rhythm Heart Sounds: no murmur Extremities: + edema (woody 1+ pitting edema legs) Chest (Breasts): Chest: normal inspection of chest Gastrointestinal (Abdomen): normal bowel sounds, soft, nontender, no hepatosplenomegaly Musculoskeletal: Extremities: + extremities abnormal to inspection (right foot TMA), no cyanosis and no clubbing Skin: + wound (scabbed over wounds left leg and 4th toe) Neurologic: moves all extremities and awake; no focal motor deficits Psychiatric: A+Ox3, euthymic affect Results & Data Results & Data ([facility]) Vital Signs (Past 12 Hours) Vital Signs Temp Pulse Pulse Resp BP Pulse Ox Pulse Ox 04/09/21 15:15 80 20 94 04/09/21 13:29 91 04/09/21 11:40 36.6 C 65 18 138/67 96 04/09/21 08:51 68 04/09/21 07:55 36.6 C 65 18 143/64 H 96 04/09/21 07:14 73 20 98 Pulse Ox Pulse Ox 04/09/21 15:15 04/09/21 13:29 92 84 L 04/09/21 11:40 04/09/21 08:51 04/09/21 07:55 04/09/21 07:14 Laboratory Results 04/09/21 04/08/21 04/08/21 Range/Units 07:39 22:30 16:50 ESR (0-20) mm/hr Sodium 135 L (136-145) mmol/L Potassium 4.2 (3.5-5.1) mmol/L Chloride 99 (98-107) mmol/L Carbon Dioxide 28 (21-32) mmol/L Anion Gap 7.0 (3-11) BUN 17 (7-18) mg/dl Creatinine 6.39 H* D (0.6-1.4) mg/dl Est Cr Clr Drug Dosing 13.1 ml/min Est GFR ( Amer) 9.0 ml/min Est GFR (Non-Af Amer) 7.8 ml/min BUN/Creatinine Ratio 2.6 L (10-20) Glucose 78 (70-99) mg/dl Calcium 9.0 (8.5-10.1) mg/dl C-Reactive Protein (0-0.29) mg/dl Nasal Screen MRSA (PCR) Negative (Negative) SARS-CoV-2 (PCR) NEGATIVE (Negative) 04/08/21 04/08/21 Range/Units 16:00 16:00 ESR 27 H (0-20) mm/hr Sodium (136-145) mmol/L Potassium (3.5-5.1) mmol/L Chloride (98-107) mmol/L Carbon Dioxide (21-32) mmol/L Anion Gap (3-11) BUN (7-18) mg/dl Creatinine (0.6-1.4) mg/dl Est Cr Clr Drug Dosing ml/min Est GFR ( Amer) ml/min Est GFR (Non-Af Amer) ml/min BUN/Creatinine Ratio (10-20) Glucose (70-99) mg/dl Calcium (8.5-10.1) mg/dl C-Reactive Protein 1.89 H (0-0.29) mg/dl Nasal Screen MRSA (PCR) (Negative) SARS-CoV-2 (PCR) (Negative) PG Care Time/CCT Total # of Minutes Spent Total Time Spent with Patient: Total time spent is greater than 50% in coordination of care (as documented) at patient's floor/unit and/or counseling patient: Coding Level of Care Code 53923 Subseq Hosp Care Lvl 3 Diagnoses Occipital headache R51.9 Neck pain M54.2 Nausea R11.0 Weakness R53.1 COPD (chronic obstructive pulmonary disease) J44.9 Hypoxia R09.02 TORRIE (obstructive sleep apnea) G47.[address] Z93.2 Hypothyroidism E03.9 Hypothyroidism type: acquired S/P MVR (mitral valve repair) Z98.890 History of DVT (deep vein thrombosis) Z86.718 Atrial fibrillation I48.0 Atrial fibrillation type: paroxysmal Chills R68.83 Elevated troponin R77.8 End stage renal disease on dialysis N18.6; Z99.2 CAD (coronary artery disease) I25.10 Associated angina: without angina Coronary Disease-Associated Artery/Lesion type: [place] artery [place] vs. transplanted heart: [place] heart Hydroureteronephrosis N13.30 Sore throat J02.9 Peripheral vascular disease I73.9 Depression F32.9 DVT prophylaxis Z29.9 (1) CAD (coronary artery disease) Associated angina: without angina Coronary Disease-Associated Artery/Lesion type: [place] artery [place] vs. transplanted heart: [place] heart Qualified Code(s): I25.10 - Atherosclerotic heart disease of [place] coronary artery without angina pectoris (2) Atrial fibrillation Atrial fibrillation type: paroxysmal Qualified Code(s): I48.0 - Paroxysmal atrial fibrillation (3) Hypothyroidism Hypothyroidism type: acquired Qualified Code(s): E03.9 - Hypothyroidism, unspecified
[2021-04-10] MEDS: LEVOTHYROXINE SODIUM 88 MCG TABLET PO SCH (05:37)
[2021-04-10] MEDS: ACETAMINOPHEN 325 MG TAB PO PRN (05:39)
[2021-04-10] MEDS ORDERED: SODIUM CHLORIDE 0.9% 1000ML 1,000 ML IV PRN (07:00)
[2021-04-10] MEDS ORDERED: HEPARIN SOD (PORCINE) 1000 UNIT/ML IV ONE (07:00)
[2021-04-10] MEDS: IPRATROPIUM BROMIDE HFA INHALER INH SCH (07:09)
[2021-04-10] MEDS: ALBUTEROL HFA 8 GM INHALER INH SCH (07:09)
[2021-04-10] MEDS ORDERED: ALBUTEROL HFA 8 GM INHALER INH PRN (08:15)
[2021-04-10] MEDS ORDERED: IPRATROPIUM BROMIDE HFA INHALER INH PRN (08:15)
[2021-04-10 08:21] LABS: Basophils # (auto) 0.03 K/uL (0-0.2); Basophils % (auto) 0.4 %; Eosinophils # (auto) 0.33 K/uL (0-0.5); Eosinophils % (auto) 4.4 %; Hematocrit (blood only) 32.9 % (42-52); Hemoglobin 10.8 g/dL (14.0-18.0); Immature Granulocytes # (auto) 0.03 K/uL (0.00-0.02); Immature Granulocytes % (auto) 0.4 %; Lymphocytes # (auto) 1.02 K/uL (1.2-3.4); Lymphocytes % (auto) 13.7 %; Mean Corpuscular Hemoglobin 32.3 pg (25-34); Mean Corpuscular Hgb Conc 32.8 g/dL (32-36); Mean Corpuscular Volume 98.5 fL (80-100); Monocytes # (auto) 1.01 K/uL (0.11-0.59); Monocytes % (auto) 13.6 %; Neutrophils # (auto) 5.03 K/uL (1.4-6.5); Neutrophils % (auto) 67.5 %; Platelet Count 124 K/uL (130-400); Red Blood Count 3.34 M/uL (4.7-6.1); White Blood Count 7.45 K/uL (4.8-10.8)
[2021-04-10 09:16] LABS: BUN Creatinine Ratio 3.2 (10-20); Calcium 9.1 mg/dl (8.5-10.1); Creatinine Clr Calc Pharmacy 8.7 ml/min; Est GFR (African American) 5.6 ml/min; Est GFR (Non-African American) 4.8 ml/min; Potassium 4.5 mmol/L (3.5-5.1)
[2021-04-10] MEDS: NYSTATIN SUSP 500,000 U/5 ML UDC PO SCH ×4 (09:21→20:16)
[2021-04-10] MEDS: DICLOFENAC SOD 1% GEL 100 GM TUBE EXT SCH ×4 (09:21→20:16)
[2021-04-10] MEDS: HEPARIN SOD 5,000 UNIT/0.5 ML VIAL SQ SCH ×2 (09:22→20:16)
[2021-04-10] MEDS: FAMOTIDINE 20 MG TAB PO SCH (09:22)
[2021-04-10] MEDS: CLOPIDOGREL BISULFATE 75 MG TAB PO SCH (09:22)
[2021-04-10] MEDS: PANTOprazole 40 MG TAB PO SCH (09:22)
[2021-04-10] MEDS: NEPHROCAPS PO SCH (09:22)
[2021-04-10] MEDS: CALCIUM ACETATE 667 MG CAP/TAB PO SCH ×3 (09:23→17:24)
[2021-04-10] MEDS: ASPIRIN 81 MG ECTAB PO SCH (09:23)
[2021-04-10] MEDS: PREGABALIN 75 MG CAP PO SCH (09:27)
[2021-04-10] MEDS: FLUTICASONE/VILANTEROL 200/25MCG 14 PUFFS/INHALER INH SCH (09:39)
[2021-04-10] MEDS: UMECLIDINIUM BROMIDE 62.5MCG/BLISTER 7 PUFFS/INHALER INH SCH (09:39)
--- NOTE | 2021-04-10 10:06 | Dialysis Progress Note ---
Date of Service April 10, 2021 Assessment & Plan Admission and Anticipated Discharge Date Admission Date: April 08, 2021 Subjective Seen during Dialysis. NO problem with AVF. BP is fine. Just started so no complaints yet. Less SOB and no headache now. PHYSICAL EXAMINATION: GENERAL: Elderly white male who is not in overt respiratory distress; however, he does not appear to be very comfortable. HEENT: Mucous membrane is moist. NECK: Supple. CHEST: Bilaterally decreased breath sounds, prolonged expiration, bilateral crackles. CARDIOVASCULAR: S1 and S2 irregular. Systolic murmur heard. ABDOMEN: Soft, nontender. EXTREMITIES: Show no edema, but he has signs of advanced peripheral vascular disease in both legs. AV fistula in his right arm and has good bruit and thrill. DIAGNOSTIC STUDIES: CT abdomen and pelvis was reviewed and shows severe bilateral renal atrophy as well as bilateral hydroureteronephrosis. CT abdomen and pelvis does show severe bilateral hydroureteronephrosis up to the level of the bladder. He did not have this on his CAT scan from last year. ASSESSMENT AND PLAN: A 75-year-old male with end-stage renal disease, on chronic hemodialysis Thursday, Thursday, Thursday as well as extensive cardiopulmonary and vascular problems, admitted with progressive generalized weakness, ambulatory difficulty as well as poor appetite and essentially failure to thrive for the last few weeks. 1. End-stage renal disease: Electrolytes are acceptable. He is definitely more short of breath than usual, but I am not so sure that is actually fluid overload, but this seems more deconditioning and pulmonary in etiology. However, we will try to take some fluid off today with dialysis. Plan for 3.5 hrs and take about 2.5 off. 2k 2. Bladder outlet obstruction: He has bilateral hydronephrosis as well as hydroureter related with bladder outlet obstruction. Reviewed urology note. Results & Data ([facility]) Vital Signs (Past 12 Hours) Vital Signs Temp Pulse Pulse Resp BP Pulse Ox 04/10/21 07:40 36.8 C 62 16 149/67 H 98 04/10/21 07:11 66 18 99 04/10/21 03:33 36.5 C 60 18 155/61 H 100 04/10/21 01:47 92 04/09/21 23:18 62 04/09/21 22:43 36.6 C 64 18 130/65 96
[2021-04-10] MEDS: HEPARIN SOD (PORCINE) 1000 UNIT/ML IV SCH (12:13)
[2021-04-10 14:50] LABS: Hepatitis B Surface Ab Quant 107.14 mIU/mL (>or=10mIU/mL Immune); Hepatitis B Surface Antibody Immune
[2021-04-10 15:01] LABS: Hepatitis B Surf Ag Rflx Conf Neg (Neg)
--- NOTE | 2021-04-10 15:33 | Progress Notes ---
DATE: 04/10/2021 The patient reports no change in his ability to swallow. His barium swallow earlier today was cancel ed because he was not able to stand for the requisite time to complete the study. The patient is not the best candidate to consider for sedation for an EGD and after discussing with Dr. Araya, we deci ded to get an anesthesia evaluation to see if they are willing to sedate him or not for an upper endo scopy. IMPRESSION: The patient has dysphagia. We are awaiting anesthesia evaluation to determine whether sara ronquillo is a candidate for sedation. If he is, we can pursue an EGD tomorrow afternoon. For now, I have j usalma rosa made him n.p.o. after midnight. If they decide that he is not a candidate for sedation, then we can go ahead and feed him tomorrow. Job ID: [id number]
--- NOTE | 2021-04-10 17:13 | Hospitalist Progress Note ---
Date of Service April 10, 2021 Assessment & Plan (1) Occipital headache: 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 Doubt temporal arteritis - wrong location for such. Also, ESR is presently low at 27 despite advanced age and renal failure. Check c-spine CT --with moderate to severe degenerative changes throughout cervical spine with moderate to severe disc space narrowing at C3-C7 Headache is improved now with Voltaren gel, heating pad, and Tylenol as needed (2) Neck pain: Severely restricted passive ROM of neck. see above. Improved (3) Nausea: With progressively worsening dysphagia and regurgitation/vomiting of even liquids that I witnessed shortly after eating Moderate thickening of proximal esophagus seen on CT scan of the cervical spine Consult GI appreciated-plan for barium swallow however he is not able to tolerate standing for this test and it was canceled CT abdomen/pelvis without obstruction and he has stool in his ostomy Continue PPI -Consult anesthesiology for consultation to see if okay to undergo sedation for EGD N.p.o. after midnight Clear liquids diet for today (4) Weakness: Patient is very poor historian. Attribute many of his symptoms including his weakness to having his HD changed several weeks ago? He sounds like he has had severe, worsening deconditioning. I can't exclude leg weakness due to a cervical spine issue, however does not seem to have myelopathy He doesn't have any obvious infectious etiology but does report chills on regular basis. Obtain blood cultures x 2 to be complete. No growth to date so far Needs PT, OT. (5) COPD (chronic obstructive pulmonary disease): No acute issues except does require oxygen-unclear if this is an acute or chronic issue Continue home inhalers. Continues to become hypoxic into the 80s with minimal exertion on room air- remains on O2 now continuously 2 L Uncertain if hypoxia is due to COPD or other entity. Also has some pleural effusions on CT Plan for removal of extra fluid with hemodialysis today No obvious pneumonia. Dopplers of lower extremities negative for DVT I do not suspect PE -We will need a two-step test prior to discharge (6) Hypoxia: see discussion above in "COPD" (7) TORRIE (obstructive sleep apnea): Previously on CPAP as per pulmonology notes, but needed repeat sleep study (8) Ileostomy in place: functioning normally (9) Hypothyroidism: TSH here wnl cont synthroid w/o changes (10) S/P MVR (mitral valve repair): noted echo in 2019 showed intact mitral valve function no signs/symptoms of valve failure (11) History of DVT (deep vein thrombosis): noted Bilateral venous Dopplers negative for DVT (12) Atrial fibrillation: paroxysmal NOT on chronic anticoagulation remains on amiodarone 200mg q2days place on telemetry-remains in sinus rhythm with wandering atrial pacemaker, first-degree AV block, rate 60s 70s (13) Chills: infectious etiology? 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 does not make urine however. uncertain if any Rx is needed given his ESRD status. Nephrology recommended consultation with urology-did not feel this was clinically significant as he does not make urine No further evaluation needed (18) Sore throat: candidiasis of mouth/throat? 2nd to GERD or regurgitation No complaints of this any further Continue nystatin solution 5cc qid for possible thrush. (19) Peripheral vascular disease: With a history of arterial bypass in the right lower extremity which appears occluded on Doppler performed upon admission He has a history of transmetatarsal amputation on that right foot and the foot is cool but he is asymptomatic at this time, pulses are not palpable-recommend Dopplers to check pulses Continue aspirin, statin, Plavix With neuropathy-continue pregabalin (20) Depression: Stable Continue home paroxetine (21) DVT prophylaxis: heparin 5000 BID Disposition-continued stay on telemetry, possible EGD tomorrow Admission and Anticipated Discharge Date Admission Date: April 08, 2021 Subjective Patient had dialysis today. He had a headache this morning but is now gone. He feels his neck pain is also improved. He has not had anything to eat today as he was at dialysis and was n.p.o. before that for barium swallow. He was unable to complete barium swallow as he is not able to stand unassisted. He reports that he does not feel any different than when he came in, still not feeling well at all. No vomiting today. No abdominal pain. Telemetry with normal sinus rhythm and sinus bradycardia with rates in the 50s to 60s. I discussed his care with GI-recommends anesthesiology consultation to see about undergoing sedation for EGD. Review of Systems Review of Systems: All systems reviewed & are unremarkable except as noted in HPI & below Physical Exam Constitutional: WD/WN, vitals as above + ill appearing (chronically) Eyes: + anicteric sclerae Neck: trachea midline, no thyromegaly Respiratory: normal respiratory effort, lungs clear to auscultation Cardiovascular: Rate/Rhythm: regular rate and regular rhythm Heart Sounds: no murmur Extremities: + edema (woody 1+ pitting edema legs) Chest (Breasts): Chest: normal inspection of chest Gastrointestinal (Abdomen): normal bowel sounds, soft, nontender, no hepatosplenomegaly Musculoskeletal: Extremities: + extremities abnormal to inspection (right foot TMA), no cyanosis and no clubbing Skin: + wound (scabbed over wounds left leg and 4th toe) Neurologic: moves all extremities and awake; no focal motor deficits Psychiatric: Orientation: alert, oriented to person, oriented to place and cooperative Results & Data Results & Data ([facility]) Vital Signs (Past 12 Hours) Vital Signs Temp Pulse Pulse Pulse Resp BP BP 04/10/21 14:00 36.7 C 67 136/57 L 04/10/21 13:00 74 120/63 04/10/21 12:40 67 136/69 04/10/21 12:20 67 133/66 04/10/21 12:00 65 131/64 04/10/21 11:40 68 120/66 04/10/21 11:20 67 139/67 04/10/21 11:00 65 138/73 04/10/21 10:40 66 145/70 H 04/10/21 10:20 65 134/64 04/10/21 10:00 64 146/80 H 04/10/21 09:51 63 151/82 H 04/10/21 09:39 36.6 C 66 06/16/21 07:40 36.8 C 62 16 149/67 H 04/10/21 07:11 66 18 Pulse Ox 04/10/21 14:00 04/10/21 13:00 04/10/21 12:40 04/10/21 12:20 04/10/21 12:00 04/10/21 11:40 04/10/21 11:20 04/10/21 11:00 04/10/21 10:40 04/10/21 10:20 04/10/21 10:00 04/10/21 09:51 04/10/21 09:39 04/10/21 07:40 98 04/10/21 07:11 99 Laboratory Results 04/10/21 04/10/21 04/10/21 Range/Units 13:50 07:41 07:41 WBC 7.45 (4.8-10.8) K/uL RBC 3.34 L (4.7-6.1) M/uL Hgb 10.8 L (14.0-18.0) g/dL Hct 32.9 L (42-52) % MCV 98.5 (80-100) fL MCH 32.3 (25-34) pg MCHC 32.8 (32-36) g/dL RDW Std Deviation 54.0 H (36.4-46.3) fL RDW Coeff of Jolanta 15.0 H (11.5-14.5) % Plt Count 124 L (130-400) K/uL MPV 9.0 (7.4-10.4) fL Immature Gran % (Auto) 0.4 % Neut % (Auto) 67.5 % Lymph % (Auto) 13.7 % Foster % (Auto) 13.6 % Eos % (Auto) 4.4 % Baso % (Auto) 0.4 % Neut # (Auto) 5.03 (1.4-6.5) K/uL Lymph # (Auto) 1.02 L (1.2-3.4) K/uL Foster # (Auto) 1.01 H (0.11-0.59) K/uL Eos # (Auto) 0.33 (0-0.5) K/uL Baso # (Auto) 0.03 (0-0.2) K/uL Immature Gran # (Auto) 0.03 H (0.00-0.02) K/uL Sodium 133 L (136-145) mmol/L Potassium 4.5 (3.5-5.1) mmol/L Chloride 97 L (98-107) mmol/L Carbon Dioxide 28 (21-32) mmol/L Anion Gap 8.0 (3-11) BUN 31 H D (7-18) mg/dl Creatinine 9.53 H* D (0.6-1.4) mg/dl Est Cr Clr Drug Dosing 8.7 ml/min Est GFR ( Amer) 5.6 ml/min Est GFR (Non-Af Amer) 4.8 ml/min BUN/Creatinine Ratio 3.2 L (10-20) Glucose 85 (70-99) mg/dl Calcium 9.1 (8.5-10.1) mg/dl Hep Bs Antigen Neg (Neg) Hep Bs Antibody Immune Hep Bs Antibody, Quant 107.14 (>or=10mIU/mL Immune) mIU/mL PG Care Time/CCT Total # of Minutes Spent Total Time Spent with Patient: Total time spent is greater than 50% in coordination of care (as documented) at patient's floor/unit and/or counseling patient: Coding Level of Care Code 20732 Subseq Hosp Care Lvl 2 Diagnoses Occipital headache R51.9 Neck pain M54.2 Nausea R11.0 Weakness R53.1 COPD (chronic obstructive pulmonary disease) J44.9 Hypoxia R09.02 TORRIE (obstructive sleep apnea) G47.[address] Z93.2 Hypothyroidism E03.9 Hypothyroidism type: acquired S/P MVR (mitral valve repair) Z98.890 History of DVT (deep vein thrombosis) Z86.718 Atrial fibrillation I48.0 Atrial fibrillation type: paroxysmal Chills R68.83 Elevated troponin R77.8 End stage renal disease on dialysis N18.6; Z99.2 CAD (coronary artery disease) I25.10 Coronary Disease-Associated Artery/Lesion type: [place] artery [place] vs. transplanted heart: [place] heart Associated angina: without angina Hydroureteronephrosis N13.30 Sore throat J02.9 Peripheral vascular disease I73.9 Depression F32.9 DVT prophylaxis Z29.9 (1) Hypothyroidism Hypothyroidism type: acquired Qualified Code(s): E03.9 - Hypothyroidism, unspecified (2) Atrial fibrillation Atrial fibrillation type: paroxysmal Qualified Code(s): I48.0 - Paroxysmal atrial fibrillation (3) CAD (coronary artery disease) Coronary Disease-Associated Artery/Lesion type: [place] artery [place] vs. transplanted heart: [place] heart Associated angina: without angina Qualified Code(s): I25.10 - Atherosclerotic heart disease of [place] artery without angina pectoris
[2021-04-10] MEDS: PARoxetine HCL 20 MG TAB PO SCH (20:15)
[2021-04-10] MEDS: rOPINIRole HCL 0.25 MG TABLET PO SCH (20:15)
[2021-04-10] MEDS: DOCUSATE SODIUM 100 MG CAP PO SCH (20:16)
[2021-04-10] MEDS: ATORVASTATIN 40 MG TAB PO SCH (20:16)
[2021-04-11] MEDS: LEVOTHYROXINE SODIUM 88 MCG TABLET PO SCH (06:01)
[2021-04-11] MEDS: ACETAMINOPHEN 325 MG TAB PO PRN (06:04)
[2021-04-11 08:16] LABS: Basophils # (auto) 0.04 K/uL (0-0.2); Basophils % (auto) 0.5 %; Eosinophils # (auto) 0.33 K/uL (0-0.5); Eosinophils % (auto) 4.5 %; Hematocrit (blood only) 34.5 % (42-52); Hemoglobin 11.1 g/dL (14.0-18.0); Immature Granulocytes # (auto) 0.03 K/uL (0.00-0.02); Immature Granulocytes % (auto) 0.4 %; Lymphocytes % (auto) 10.9 %; Mean Corpuscular Hemoglobin 32.4 pg (25-34); Mean Corpuscular Hgb Conc 32.2 g/dL (32-36); Mean Corpuscular Volume 100.6 fL (80-100); Mean Platelet Volume 8.7 fL (7.4-10.4); Monocytes # (auto) 0.95 K/uL (0.11-0.59); Neutrophils # (auto) 5.17 K/uL (1.4-6.5); Neutrophils % (auto) 70.7 %; Platelet Count 130 K/uL (130-400); RDW Coefficient of Variation 14.9 % (11.5-14.5); RDW Standard Deviation 54.5 fL (36.4-46.3); Red Blood Count 3.43 M/uL (4.7-6.1); White Blood Count 7.32 K/uL (4.8-10.8)
[2021-04-11 08:50] LABS: BUN Creatinine Ratio 2.9 (10-20); Calcium 9.4 mg/dl (8.5-10.1); Creatinine Clr Calc Pharmacy 11.9 ml/min; Est GFR (African American) 8.1 ml/min; Ferritin 843.1 ng/ml (8-388); Potassium 4.3 mmol/L (3.5-5.1); Prostate Specific Antigen 5.03 ng/ml (0-4)
[2021-04-11] MEDS: DICLOFENAC SOD 1% GEL 100 GM TUBE EXT SCH ×4 (09:11→21:56)
[2021-04-11] MEDS: UMECLIDINIUM BROMIDE 62.5MCG/BLISTER 7 PUFFS/INHALER INH SCH (09:14)
[2021-04-11] MEDS: AMIODARONE 200 MG TAB PO SCH (09:15)
[2021-04-11] MEDS: FLUTICASONE/VILANTEROL 200/25MCG 14 PUFFS/INHALER INH SCH (09:16)
[2021-04-11] MEDS: CLOPIDOGREL BISULFATE 75 MG TAB PO SCH (09:16)
[2021-04-11] MEDS: HEPARIN SOD 5,000 UNIT/0.5 ML VIAL SQ SCH ×2 (09:18→22:01)
[2021-04-11] MEDS: NYSTATIN SUSP 500,000 U/5 ML UDC PO SCH ×4 (09:19→21:56)
[2021-04-11 09:25] LABS: Folate (Folic Acid) > 20.00 ng/ml (>5.38); Vitamin B12 1014 pg/ml (193-986)
--- NOTE | 2021-04-11 10:01 | Anesthesiology Consultation ---
Date of Service April 11, 2021 Assessment & Plan (1) Encounter for pre-operative examination: Chart Review Chart Review: Acceptable Risk for Surgery and Patient NOT seen in Pre Admission Testing Spoke with patient this morning. He stated he has had shortness of breath but per pulm/nephrology/hospitalist notes this appears to be a multifactorial and more chronic issue. He has not had solid food since Thursday PM (had emesis with soup) but can tolerate small amount of water with pills. He is currently on 2L NC and resting comfortably in bed. I did not see any imaging that showed fluid level in esophagus so after discussing with anesthesiologist covering endo today, we feel it would be prudent to attempt a light sedation in the endoscopy suite. GA can be pursued in the OR if any fluid/food is found on endscopy but patient is high risk given his hx/o difficult intubation, decreased c-spine mobility and overall several comorbid medical conditions. All questions were answered and patient would like to attempt EGD later today. Consults Requested none History Height/Weight Height: 6 ft 2 in Weight: 106.6 kg Allergies Allergy/AdvReac Type Severity Reaction Status Date / Time oxycodone AdvReac Severe DELIRIUM Verified 04/08/21 16:18 tramadol AdvReac Severe dizziness;a Verified 04/08/21 16:19 nxiety;sob gabapentin AdvReac Intermediate Nausea Verified 04/08/21 16:19 Medications Home Medications Medication Instructions Recorded Confirmed Last Taken calcium acetate(phosphat bind) 667 mg PO TIDM 08/23/18 04/08/21 04/08/21 12:00 docusate sodium 100 mg capsule 100 mg PO HS 05/31/19 04/08/21 04/07/21 Triphrocaps 1 mg PO DAILY 05/01/20 04/08/21 04/08/21 aspirin [Aspirin Low Dose] 81 mg PO DAILY 05/01/20 04/08/21 04/08/21 omeprazole 20 mg tablet,delayed 40 mg PO QAM tab 07/19/20 04/08/21 04/08/21 release atorvastatin 40 mg tablet 40 mg PO HS #90 tab 11/13/20 04/08/21 04/07/21 fluticasone furoate 200 1 inh INHALATION QAM #84 ea 11/23/20 04/08/21 04/08/21 mcg-vilanterol 25 mcg/dose inhalation powder levothyroxine 88 mcg tablet 88 mcg PO DAILY #90 tab 11/23/20 04/08/21 04/08/21 clopidogrel 75 mg tablet 75 mg PO DAILY #90 tab 12/24/20 04/08/21 04/08/21 amiodarone 200 mg tablet 200 mg PO Q OTHER DAY #14 tab 01/10/21 04/08/21 04/07/21 paroxetine HCl 20 mg tablet 20 mg PO HS #90 tab 01/21/21 04/08/21 04/07/21 pregabalin 75 mg capsule 75 mg PO QAM #30 cap 01/30/21 04/08/21 04/07/21 temazepam 15 mg capsule 30 mg PO HS PRN #60 cap 03/27/21 04/08/21 Unknown tiotropium bromide 18 mcg capsule 1 cap INHALATION QAM #1 inh 03/27/21 04/08/21 04/08/21 with inhalation device acetaminophen 650 mg PO BID PRN 04/08/21 04/08/21 Unknown alum-mag hydroxide-simeth [Maalox] 30 ml PO DIRECTED PRN 04/08/21 04/08/21 Unknown famotidine 20 mg PO 3XWK 04/08/21 04/08/21 04/08/21 ipratropium-albuterol 3 ml INHALATION Q4H PRN 04/08/21 04/08/21 Unknown lidocaine [Aspercreme (lidocaine 1 patch TOPICAL DAILY PRN 04/08/21 04/08/21 Unknown HCl)] nitroglycerin [Nitrostat] 0.4 mg SUBLINGUAL DIRECTED PRN 04/08/21 04/08/21 Unknown ondansetron HCl [Zofran] 4 mg IV DIRECTED PRN 04/08/21 04/08/21 Unknown ropinirole 0.25 mg PO HS 04/08/21 04/08/21 04/07/21 sennosides [Senokot] 8.6 mg PO DAILY PRN 04/08/21 04/08/21 Unknown sodium chloride 0.9 % [Normal 100 ml IV DIRECTED PRN 04/08/21 04/08/21 Unknown Saline] Active Medications Generic Name Dose Route Start Last Admin Trade Name Freq PRN Reason Stop Dose Admin Acetaminophen 650 mg 04/09/21 01:47 04/11/21 06:04 Acetaminophen 325 Mg Tab PO 05/09/21 01:46 650 mg Q4H PRN Administration Pain or Fever Amiodarone HCl 200 mg 04/09/21 09:00 04/11/21 09:15 Amiodarone 200 Mg Tab PO 05/09/21 08:59 200 mg Q48H [place] Administration Aspirin 81 mg 04/09/21 09:00 04/11/21 10:34 Aspirin 81 Mg Ectab PO 05/09/21 08:59 Not Given DAILY [place] Atorvastatin Calcium 40 mg 04/09/21 01:47 04/10/21 20:16 Atorvastatin 40 Mg Tab PO 05/09/21 01:46 40 mg HS [place] Administration Calcium Acetate 667 mg 04/09/21 08:00 04/11/21 10:34 Calcium Acetate 667 Mg Cap/Tab PO 05/09/21 07:59 Not Given TIDM [place] Clopidogrel Bisulfate 75 mg 04/09/21 09:00 04/11/21 09:16 Clopidogrel Bisulfate 75 Mg Tab PO 05/09/21 08:59 75 mg DAILY [place] Administration Diclofenac Sodium 4 gm 04/09/21 01:47 04/11/21 09:11 Diclofenac Sod 1% Gel 100 Gm Tube EXT 05/09/21 01:46 4 gm QID [place] Administration Docusate Sodium 100 mg 04/09/21 01:47 04/10/21 20:16 Docusate Sodium 100 Mg Cap PO 05/09/21 01:46 100 mg HS [place] Administration Famotidine 20 mg 04/10/21 09:00 04/10/21 09:22 Famotidine 20 Mg Tab PO 05/10/21 08:59 20 mg [id number] [place] Administration Fluticasone/Vilanterol 1 puffs 04/09/21 09:00 04/11/21 09:16 Fluticasone/Vilanterol 200/25mcg 14 Puffs/Inhaler INH 05/09/21 08:59 1 puffs QAM [place] Administration Heparin Sodium (Porcine) 5,000 units 04/09/21 01:47 04/11/21 09:18 Heparin Sod 5,000 Unit/0.5 Ml Vial SQ 05/09/21 01:46 5,000 units Q12 [place] Administration Levothyroxine Sodium 88 mcg 04/09/21 06:30 04/11/21 06:01 Levothyroxine Sodium 88 Mcg Tablet PO 05/09/21 06:29 88 mcg DAILYBB [place] Administration Nystatin 5 ml 04/09/21 09:00 04/11/21 09:19 Nystatin Susp 500,000 U/5 Ml Udc PO 04/19/21 08:59 5 ml QID [place] Administration Pantoprazole Sodium 40 mg 04/09/21 09:00 04/11/21 10:35 Pantoprazole 40 Mg Tab PO 05/09/21 08:59 Not Given QAM [place] Paroxetine HCl 20 mg 04/09/21 01:47 04/10/21 20:15 Paroxetine Hcl 20 Mg Tab PO 05/09/21 01:46 20 mg HS [place] Administration Pregabalin 75 mg 04/09/21 09:00 04/11/21 10:35 Pregabalin 75 Mg Cap PO 05/09/21 08:59 Not Given QAM [place] Ropinirole HCl 0.25 mg 04/09/21 01:47 04/10/21 20:15 Ropinirole Hcl 0.25 Mg Tablet PO 05/09/21 01:46 0.25 mg HS [place] Administration Umeclidinium [place] 1 puffs 04/09/21 09:00 04/11/21 09:14 Umeclidinium [place] 62.5mcg/Blister 7 Puffs/Inhaler INH 05/09/21 08:59 1 puffs QAM [place] Administration Vitamin B Complex/Folic Acid 1 cap 04/09/21 09:00 04/11/21 10:34 Nephrocaps PO 05/09/21 08:59 Not Given DAILY [place] Past Medical History Medical History (Updated 04/11/21 @ 10:43 by Mikey Rodriguez MD) AAA (abdominal aortic aneurysm) Acute osteomyelitis of foot Anemia, chronic renal failure Anxiety Aspiration pneumonia Atrial fibrillation PAROXYSMAL- ON ASA PER RECORDS AV fistula right arm CAD (coronary artery disease) S/P CABG X2 (DURING MVR) 2010 Chronic back pain Chronic GERD COPD (chronic obstructive pulmonary disease) CVA (cerebral vascular accident) "NO RESIDUAL EFFECTS" PER RECORDS Delirium Depression Dermatitis Diarrhea Diastolic CHF DVT (deep venous thrombosis) Elevated troponin Encounter for central line placement ESRD (end stage renal disease) on dialysis Gangrene Gangrene of toe right toes REASON FOR PROCEDURE Generalized weakness GERD (gastroesophageal reflux disease) Gram negative sepsis H/O: gout Hyperkalemia Hyperlipidemia Hypomagnesemia Hypotension Hypothyroidism Ileostomy in place Ischemic colitis Memory loss or impairment Myocardial infarct, old 2010 Necrosis of colon Non-healing wound Orthostatic hypotension Peripheral vascular disease Proctocolitis Shortness of breath Valvular disease S/P MVR (2010); ?AVR PER RECORDS Vitamin D deficiency Last dialysis 04/10/21. Nausea: With progressively worsening dysphagia and regurgitation/vomiting of even liquids that I witnessed shortly after eating Moderate thickening of proximal esophagus seen on CT scan of the cervical spine Consult GI appreciated-plan for barium swallow however he is not able to tolerate standing for this test and it was cancele Per hospitalist note: (5) COPD (chronic obstructive pulmonary disease): No acute issues except does require oxygen-unclear if this is an acute or chronic issue Continue home inhalers. Continues to become hypoxic into the 80s with minimal exertion on room air- remains on O2 now continuously 2 L Uncertain if hypoxia is due to COPD or other entity. Also has some pleural effusions on CT Plan for removal of extra fluid with hemodialysis today No obvious pneumonia. Exercise / Class Metabolic Activity IV < 2 Limit ADL/Bedbound Past Family History Family History Mother Essential hypertension Father , age 76 Myocardial infarction Denies family history of Colon cancer Ovarian cancer Prostate cancer Breast cancer Past Surgical History Surgical History Difficult intubation B/L Anteriogram, Right femoral to anterior tibial cadaver vein bypass= 08/06/18= Grade view 4, MAC 3 --> Glidescope #3, ETT 7.5 at [facility] H/O abdominal aortic aneurysm repair 2011 H/O [id number] bypass 2012 H/O mitral valve repair 2010; ?AVR PER RECORDS Hx of CABG S/P CABG X2 (DURING MVR) 2010 S/P AAA repair S/P ablation of atrial fibrillation S/P cholecystectomy S/P femoral-popliteal bypass surgery S/P MVR (mitral valve repair) Ex-Lap 04/28/2019: Patient made ASA 4E. Arterial Line. GETA. Glidescope #3 elective. No reported issues. Social History Smoking Status: Former smoker tobacco type: cigarettes Do You Dip or Chew Tobacco: No Hx Alcohol Use: No alcohol intake frequency: holidays/special occasions only Hx Substance Use: No substance use type: does not use Physical Exam Vital Signs Last Vital Signs Temp 36.7 C 04/11/21 07:07 Pulse 65 04/11/21 07:07 Resp 18 04/11/21 07:07 BP 142/71 H 04/11/21 07:07 Pulse Ox 96 04/11/21 07:07 Testing Laboratory Results 04/11/21 07:53 04/11/21 07:53 PT 10.7 Seconds (9.0-12.0) 04/08/21 16:00 INR 1.1 (0.9-1.1) 04/08/21 16:00 04/08/21 16:00 Aerobic Blood Culture - Preliminary Blood No growth in Aerobic bottle after 48 hours. Anaerobic Blood Culture - Preliminary No growth in Anaerobic bottle after 48 hours. 04/08/21 20:32 Aerobic Blood Culture - Preliminary Blood No growth in Aerobic bottle after 48 hours. Anaerobic Blood Culture - Preliminary No growth in Anaerobic bottle after 48 hours. Electrocardiogram Date: 04/08/21 DICTATED BY: Brian Calderon MD Test Reason : Blood Pressure : / mmHG Vent. Rate : 067 BPM Atrial Rate : 063 BPM P-R Int : 000 ms QRS Dur : 116 ms QT Int : 460 ms P-R-T Axes : 000 075 043 degrees QTc Int : 486 ms Sinus rhythm with 1st degree AV block Nonspecific ST and T wave abnormality Prolonged QT Abnormal ECG When compared with ECG of 05-MAY-2020 13:52, Nonspecific T wave abnormality now evident in Inferior leads Confirmed by Brian Calderon ([id number]) on 04/09/2021 12:06:26 PM Chest X-Ray Date: 04/11/21 XR chest 1V portable CLINICAL HISTORY: weakness COMPARISON STUDY: May 05, 2020 FINDINGS: No pneumothorax. Small to moderate left pleural effusion is seen. Mixed reticular and airspace opacities are seen in bilateral bases could represent atelectasis/infiltrates. Mild pleural thickening at the right lateral chest wall is unchanged since prior. Lung volumes are decreased with crowded lung markings. Cardiac silhouette is within upper limits of normal and partially obscured by surrounding opacities. 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 No significant pulmonary vascular congestion.. Aorta is calcified. Visualized osseous structures: Unremarkable. Vertebral bodies are not well seen. Midline sternotomy wires are seen. IMPRESSION: 1. Small to moderate left pleural effusion. 2. Atelectasis/infiltrates at bilateral lower lungs. 3. Atherosclerosis. Echocardiogram Date: 05/08/20 Moderate LVH LV systolic function is normal LA mildly dialted No RV systolic pressure is normal. Other Testing CT scan neck: CERVICAL SPINE CT CT DOSE: 535.97 mGy.cm HISTORY: severe posterior neck pain; eval Fx, DJD, etc TECHNIQUE: Multiaxial CT images of the cervical spine were performed and reformatted in the sagittal and coronal plane without the use of contrast. A dose lowering technique was utilized adhering to the principles of ALARA. COMPARISON: None. FINDINGS: No fractures. No subluxation. Prevertebral soft tissues and the C1-C2 interval are intact. No pneumothorax. Moderate thickening of the visualized proximal esophagus. Moderate to severe facet degenerative changes throughout the cervical spine. There is moderate to severe disc space narrowing at C3-C4, C4- C5, and C6-C7. Mild disc space narrowing at C5-C6. IMPRESSION: 1. No fractures within the cervical spine. 2. Degenerative changes as described above. 3. Moderate thickening of the visualized proximal esophagus.
[2021-04-11] MEDS: ASPIRIN 81 MG ECTAB PO SCH (10:34)
[2021-04-11] MEDS: CALCIUM ACETATE 667 MG CAP/TAB PO SCH ×3 (10:34→17:52)
[2021-04-11] MEDS: NEPHROCAPS PO SCH (10:34)
[2021-04-11] MEDS: PANTOprazole 40 MG TAB PO SCH (10:35)
[2021-04-11] MEDS: PREGABALIN 75 MG CAP PO SCH (10:35)
--- NOTE | 2021-04-11 14:28 | History & Physical Report ---
Date of Service April 11, 2021 Assessment & Plan Admission and Anticipated Discharge Date Admission Date: April 08, 2021 History of Present Illness Chief Complaint: Dysphagia Primary Care Provider: Emil Lazcano MD For EGD Allergies Allergy/AdvReac Type Severity Reaction Status Date / Time oxycodone AdvReac Severe DELIRIUM Verified 04/08/21 16:18 tramadol AdvReac Severe dizziness;a Verified 04/08/21 16:19 nxiety;sob gabapentin AdvReac Intermediate Nausea Verified 04/08/21 16:19 Home Medications Medication Instructions Recorded Confirmed Type calcium acetate(phosphat bind) 667 mg PO TIDM 08/23/18 04/08/21 History docusate sodium 100 mg capsule 100 mg PO HS 05/31/19 04/08/21 History Triphrocaps 1 mg PO DAILY 05/01/20 04/08/21 History aspirin [Aspirin Low Dose] 81 mg PO DAILY 05/01/20 04/08/21 History omeprazole 20 mg tablet,delayed 40 mg PO QAM tab 07/19/20 04/08/21 History release atorvastatin 40 mg tablet 40 mg PO HS #90 tab 11/13/20 04/08/21 Rx fluticasone furoate 200 1 inh INHALATION QAM #84 ea 11/23/20 04/08/21 Rx mcg-vilanterol 25 mcg/dose inhalation powder levothyroxine 88 mcg tablet 88 mcg PO DAILY #90 tab 11/23/20 04/08/21 Rx clopidogrel 75 mg tablet 75 mg PO DAILY #90 tab 12/24/20 04/08/21 Rx amiodarone 200 mg tablet 200 mg PO Q OTHER DAY #14 tab 01/10/21 04/08/21 Rx paroxetine HCl 20 mg tablet 20 mg PO HS #90 tab 01/21/21 04/08/21 Rx pregabalin 75 mg capsule 75 mg PO QAM #30 cap 01/30/21 04/08/21 Rx temazepam 15 mg capsule 30 mg PO HS PRN #60 cap 03/27/21 04/08/21 Rx tiotropium bromide 18 mcg capsule 1 cap INHALATION QAM #1 inh 03/27/21 04/08/21 Rx with inhalation device acetaminophen 650 mg PO BID PRN 04/08/21 04/08/21 History alum-mag hydroxide-simeth [Maalox] 30 ml PO DIRECTED PRN 04/08/21 04/08/21 History famotidine 20 mg PO 3XWK 04/08/21 04/08/21 History ipratropium-albuterol 3 ml INHALATION Q4H PRN 04/08/21 04/08/21 History lidocaine [Aspercreme (lidocaine 1 patch TOPICAL DAILY PRN 04/08/21 04/08/21 History HCl)] nitroglycerin [Nitrostat] 0.4 mg SUBLINGUAL DIRECTED PRN 04/08/21 04/08/21 History ondansetron HCl [Zofran] 4 mg IV DIRECTED PRN 04/08/21 04/08/21 History ropinirole 0.25 mg PO HS 04/08/21 04/08/21 History sennosides [Senokot] 8.6 mg PO DAILY PRN 04/08/21 04/08/21 History sodium chloride 0.9 % [Normal 100 ml IV DIRECTED PRN 04/08/21 04/08/21 History Saline] Past Med/Surg History Medical History (Updated 04/11/21 @ 10:43 by Mikey Rodriguez MD) AAA (abdominal aortic aneurysm) Acute osteomyelitis of foot Anemia, chronic renal failure Anxiety Aspiration pneumonia Atrial fibrillation PAROXYSMAL- ON ASA PER RECORDS AV fistula right arm CAD (coronary artery disease) S/P CABG X2 (DURING MVR) 2010 Chronic back pain Chronic GERD COPD (chronic obstructive pulmonary disease) CVA (cerebral vascular accident) "NO RESIDUAL EFFECTS" PER RECORDS Delirium Depression Dermatitis Diarrhea Diastolic CHF DVT (deep venous thrombosis) Elevated troponin Encounter for central line placement ESRD (end stage renal disease) on dialysis Gangrene Gangrene of toe right toes REASON FOR PROCEDURE Generalized weakness GERD (gastroesophageal reflux disease) Gram negative sepsis H/O: gout Hyperkalemia Hyperlipidemia Hypomagnesemia Hypotension Hypothyroidism Ileostomy in place Ischemic colitis Memory loss or impairment Myocardial infarct, old 2010 Necrosis of colon Non-healing wound Orthostatic hypotension Peripheral vascular disease Proctocolitis Shortness of breath Valvular disease S/P MVR (2010); ?AVR PER RECORDS Vitamin D deficiency Surgical History Difficult intubation B/L Anteriogram, Right femoral to anterior tibial cadaver vein bypass= 08/06/18= Grade view 4, MAC 3 --> Glidescope #3, ETT 7.5 at [facility] H/O abdominal aortic aneurysm repair 2011 H/O [id number] bypass 2012 H/O mitral valve repair 2010; ?AVR PER RECORDS Hx of CABG S/P CABG X2 (DURING MVR) 2010 S/P AAA repair S/P ablation of atrial fibrillation S/P cholecystectomy S/P femoral-popliteal bypass surgery S/P MVR (mitral valve repair) Family History Mother Essential hypertension Father , age 76 Myocardial infarction Denies family history of Colon cancer Ovarian cancer Prostate cancer Breast cancer Social History (Updated 04/08/21 @ 19:09 by aTn Chacon) Smoking Status: Former smoker Tobacco Type: Cigarettes Years Smoked: 5; Second Hand Exposure: No; Do You Dip or Chew Tobacco: No; Hx Alcohol Use: No Hx Substance Use: No Preferred Language: Ghanaian Communication Ability: Effective Visual Impairment: No Limitations Cell Technician Required: No Beliefs That Will Affect Care: None marital status: / marital status details: 1 daughter Current Living Situation: Family Current Living Situation Comment: sister takes care of patient and patient's mother 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 at Home: Yes Safety Concerns: Feels Safe At This Time Seatbelt Use: always Assistive Devices: Wheelchair Physical Exam Constitutional: + frail appearing Respiratory: normal respiratory effort Cardiovascular: Rate/Rhythm: + irregularly irregular Gastrointestinal (Abdomen): Percussion/Palpation: abdomen soft Results & Data ([facility]) Vital Signs (Past 12 Hours) Vital Signs Temp Pulse Pulse Pulse Resp BP Pulse Ox 04/11/21 14:19 36.4 C L 63 20 156/75 H 100 04/11/21 11:49 36.3 C L 62 16 138/76 99 04/11/21 08:00 65 04/11/21 07:07 36.7 C 65 18 142/71 H 96 04/11/21 03:27 36.6 C 59 L 18 143/76 H 94 Code Status & VTE Plan VTE Prophylaxis Plan VTE Prophylaxis will be ordered: Yes
[2021-04-11] MEDS ORDERED: SODIUM CHLORIDE 0.9% 1000ML 1,000 ML IV SCH (14:30)
[2021-04-11] MEDS ORDERED: MIDAZOLAM HCL 1 MG/ML 2ML VIAL ONE (14:42)
--- NOTE | 2021-04-11 15:22 | GI REPORT ---
Patient Name: Anders Perdue Procedure Date: 04/11/2021 2:27 PM Date of : 1945 Admit Type: Inpatient Age: 75 Gender: Male Attending MD: Efren Barger MD Procedure: Upper GI endoscopy Providers: Efren Barger MD Referring MD: Fatuma Araya Md Indications: Dysphagia Medicines: Midazolam 2 mg IV, Propofol total dose 50 mg IV, Lidocaine 80 mg IV Complications: No immediate complications. Estimated Blood Loss: Estimated blood loss: none. Procedure: Pre-Anesthesia Assessment: - Prior to the procedure, a History and Physical was performed, and patient medications, allergies and sensitivities were reviewed. The patient's tolerance of previous anesthesia was reviewed. - The risks and benefits of the procedure and the sedation options and risks were discussed with the patient. All questions were answered and informed consent was obtained. After obtaining informed consent, the endoscope was passed under direct vision. Throughout the procedure, the patient's blood pressure, pulse, and oxygen saturations were monitored continuously. The Endoscope was introduced through the mouth, and advanced to the second part of duodenum. The upper GI endoscopy was accomplished without difficulty. The patient tolerated the procedure well. Findings: Loose front tooth. LA Grade B (one or more mucosal breaks greater than 5 mm, not extending between the tops of two mucosal folds) esophagitis with no bleeding was found. 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 It was 20 mm in diameter. The entire examined stomach was normal. A single 6 mm submucosal xanthoma nodule with a localized distribution was found in the second portion of the duodenum. The Z-line was regular and was found 45 cm from the incisors. Impression: - LA Grade B reflux esophagitis. - Large (> 5 mm) esophageal varices [Bleeding / Stigmata]. - Normal stomach. - Submucosal nodule found in the duodenum. - No specimens collected. Recommendation: - Return patient to [facility] for ongoing care. - Soft diet indefinitely. Efren Barger M.D. Efren Barger MD 04/11/2021 3:22:21 PM This report has been signed electronically. Note Initiated On: 04/11/2021 2:27 PM Number of Addenda: 0 I attest to the content of the Intraoperative Record and orders documented therein, exceptions below {[id number]}
[2021-04-11] MEDS ORDERED: SODIUM CHLORIDE 0.9% INJ 10 ML VIAL ONE (15:36)
[2021-04-11] MEDS ORDERED: LIDOCAINE 2% 2 ML VIAL/AMP(20MG/ML) INFIL ONE (15:36)
[2021-04-11] MEDS ORDERED: ePHEDrine sulfate 50 MG/ML AMP ONE (15:36)
[2021-04-11] MEDS ORDERED: PROPOFOL IV EMULSION 10 MG/ML 20 ML VIAL IV ONE (15:36)
[2021-04-11] MEDS ORDERED: GLYCOPYRROLATE 0.2 MG/ML VIAL ONE (15:36)
[2021-04-11] MEDS ORDERED: FLUMAZENIL 0.1 MG/1 ML 10 ML VIAL IV ONE (15:36)
--- NOTE | 2021-04-11 15:43 | Progress Notes ---
DATE OF SERVICE: 04/11/2021 The patient was approved by anesthesia to undergo an EGD today and he was brought to the endoscopy un it this afternoon after being n.p.o. after midnight and sedated carefully with 2 mg of Versed and 50 mg of propofol and 80 mg of lidocaine. He did have a loose tooth on the front, which was guarded and did not get removed during the procedure. His EGD showed some esophagitis in the distal esophagus. 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 Unfortunately, I do not think there is much that can be done to alleviate this area due to the risk for bleeding an d the proximity to the airway and the fact he is on blood thinners. I have recommended that the nathalia ent go on a soft diet and chew his food well and swallow with lots of liquids. The remainder of the exam was normal. Job ID: [id number]
--- NOTE | 2021-04-11 15:51 | Anesthesiology Progress Note ---
Date of Service April 11, 2021 Anesthesia Post Procedure Vital Signs Vital Signs: Temp Pulse Pulse Pulse Resp BP Pulse Ox 04/11/21 15:38 72 20 138/83 99 04/11/21 15:23 78 20 135/78 97 04/11/21 14:19 36.4 C L 63 20 156/75 H 100 04/11/21 11:49 36.3 C L 62 16 138/76 99 04/11/21 08:00 65 04/11/21 07:07 36.7 C 65 18 142/71 H 96 04/11/21 03:27 36.6 C 59 L 18 143/76 H 94 04/10/21 23:28 64 04/10/21 23:21 36.6 C 64 18 148/75 H 96 04/10/21 19:57 36.6 C 77 18 151/76 H 94 Pain Intensity Abdomen: Pain Intensity: 9 Head: Pain Intensity: 6 Bilateral Posterior Calf: Pain Intensity: 9 Posterior Neck: Pain Intensity: 5 Transfer of Care Handoff Completed per policy Notes Mental Status: alert / awake / arousable and participated in evaluation Patient Amnestic to Procedure: Yes Nausea / Vomiting: adequately controlled Pain: adequately controlled Airway Patency, RR, SpO2: stable & adequate BP & HR: stable & adequate Hydration State: stable & adequate Anesthetic Complications: no major complications apparent and Pt Satisfied with anesthetic care
--- NOTE | 2021-04-11 19:14 | Hospitalist Progress Note ---
Date of Service April 11, 2021 Assessment & Plan (1) Occipital headache: 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 Doubt temporal arteritis - wrong location for such. Also, ESR is presently low at 27 despite advanced age and renal failure. Checked c-spine CT --with moderate to severe degenerative changes throughout cervical spine with moderate to severe disc space narrowing at C3-C7 Headache is improved now with Voltaren gel, heating pad, and Tylenol as needed Still coming and going May benefit from acupuncture Avoid any opioids as he has significant reactions to such including tramadol (2) Neck pain: Severely restricted passive ROM of neck. 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 Attribute many of his symptoms including his weakness to having his HD changed several weeks ago? But more likely due to poor nutrition from worsening nausea with vomiting due to esophageal obstruction He sounds like he has had severe, worsening deconditioning. Does not have myelopathy on examination He doesn't have any obvious infectious etiology but does report chills on regular basis. Obtain blood cultures x 2 to be complete. No growth to date so far PT/OT evaluations (5) COPD (chronic obstructive pulmonary disease): No acute issues except does require oxygen-unclear if this is an acute or chronic issue Continue home inhalers. Continues to become hypoxic into the 80s with minimal exertion on room air- remains on O2 now continuously 2 L Uncertain if hypoxia is due to COPD or other entity. Also has some pleural effusions on CT Plan for removal of extra fluid with hemodialysis No obvious pneumonia. Dopplers of lower extremities negative for DVT I do not suspect PE -will need a two-step test prior to discharge and will likely go home with oxygen (6) Hypoxia: see discussion above in "COPD" (7) TORRIE (obstructive sleep apnea): Previously on CPAP as per pulmonology notes, but needed repeat sleep study (8) Ileostomy in place: functioning normally (9) Hypothyroidism: TSH here wnl cont synthroid w/o changes (10) S/P MVR (mitral valve repair): noted echo in 2019 showed intact mitral valve function no signs/symptoms of valve failure (11) History of DVT (deep vein thrombosis): noted Bilateral venous Dopplers negative for DVT (12) Atrial fibrillation: paroxysmal NOT on chronic anticoagulation remains on amiodarone 200mg q2days place on telemetry-remains in sinus rhythm with wandering atrial pacemaker, first-degree AV block, rate 60s 70s (13) Chills: infectious etiology? Seems to be resolved check blood cultures x 2-no growth to date No antibiotics indicated TSH wnl (14) Elevated troponin: likely myocardial demand ischemia no evidence of ACS, no chest pain, no ischemic changes on EKG Troponin not trended-no need to do so now (15) End stage renal disease on dialysis: RUE AV fistula dialyzes at [facility] in [place] primary liquid sugar melter - Dr Manuela Landrum consult [facility] for HD management usual schedule M/W/F Continue inpatient dialysis on same schedule continue phosphate binders (16) CAD (coronary artery disease): No acute issues Cont asa, statin, plavix (17) Hydroureteronephrosis: b/l, severe, on CT here of abdomen/pelvis likely due to enlarged prostate, enlarged heterogenous prostate seen on CT scan Makes very minimal urine He was straight cathed by urology on 04/11 for small amount of urine-urine culture sent PSA mildly elevated at 5 uncertain if any Rx is needed given his ESRD status. Nephrology recommended consultation with urology-did not feel this was clinically significant as he does not make urine No further evaluation needed (18) Sore throat: candidiasis of mouth/throat? 2nd to GERD or regurgitation No complaints of this any further Continue nystatin solution 5cc qid for possible thrush. 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 He has not yet eaten anything. We discussed his EGD results. He reports his headache is still coming and going. Neck pain much improved with Voltaren gel. Tele with NSR, 1st deg AVB, PVCs, rates 60-70s Review of Systems Review of Systems: All systems reviewed & are unremarkable except as noted in HPI & below Physical Exam Constitutional: WD/WN, vitals as above + ill appearing (chronically) Eyes: + anicteric sclerae Neck: trachea midline, no thyromegaly Respiratory: normal respiratory effort Auscultation: + crackles (bibasilar); no rhonchi and no wheezes Cardiovascular: Rate/Rhythm: regular rate and regular rhythm Heart Sounds: no murmur Extremities: + edema (woody 1+ pitting edema legs) Chest (Breasts): Chest: normal inspection of chest Gastrointestinal (Abdomen): normal bowel sounds, soft, nontender, no hepatosplenomegaly Musculoskeletal: Extremities: + extremities abnormal to inspection (right foot TMA), no cyanosis and no clubbing Skin: + wound (scabbed over wounds left leg and 4th toe) Neurologic: moves all extremities and awake; no focal motor deficits Psychiatric: A+Ox3, euthymic affect Orientation: cooperative Results & Data Results & Data ([facility]) Vital Signs (Past 12 Hours) Vital Signs Temp Pulse Pulse Pulse Resp BP Pulse Ox 04/11/21 18:42 36.7 C 65 18 144/68 H 97 04/11/21 16:08 65 16 138/60 100 04/11/21 15:50 68 20 138/76 98 04/11/21 15:38 72 20 138/83 99 04/11/21 15:23 78 20 135/78 97 04/11/21 14:19 36.4 C L 63 20 156/75 H 100 04/11/21 11:49 36.3 C L 62 16 138/76 99 04/11/21 08:00 65 Laboratory Results 04/11/21 04/11/21 04/11/21 Range/Units 07:53 07:53 07:53 WBC 7.32 (4.8-10.8) K/uL RBC 3.43 L (4.7-6.1) M/uL Hgb 11.1 L (14.0-18.0) g/dL Hct 34.5 L (42-52) % MCV 100.6 H (80-100) fL MCH 32.4 (25-34) pg MCHC 32.2 (32-36) g/dL RDW Std Deviation 54.5 H (36.4-46.3) fL RDW Coeff of Jolanta 14.9 H (11.5-14.5) % Plt Count 130 (130-400) K/uL MPV 8.7 (7.4-10.4) fL Immature Gran % (Auto) 0.4 % Neut % (Auto) 70.7 % Lymph % (Auto) 10.9 % [place] % (Auto) 13.0 % Eos % (Auto) 4.5 % Baso % (Auto) 0.5 % Neut # (Auto) 5.17 (1.4-6.5) K/uL Lymph # (Auto) 0.80 L (1.2-3.4) K/uL [place] # (Auto) 0.95 H (0.11-0.59) K/uL Eos # (Auto) 0.33 (0-0.5) K/uL Baso # (Auto) 0.04 (0-0.2) K/uL Immature Gran # (Auto) 0.03 H (0.00-0.02) K/uL Sodium 135 L (136-145) mmol/L Potassium 4.3 (3.5-5.1) mmol/L Chloride 101 (98-107) mmol/L Carbon Dioxide 27 (21-32) mmol/L Anion Gap 8.0 (3-11) BUN 20 H (7-18) mg/dl Creatinine 7.00 H* D (0.6-1.4) mg/dl Est Cr Clr Drug Dosing 11.9 ml/min Est GFR ( Amer) 8.1 ml/min Est GFR (Non-Af Amer) 7.0 ml/min BUN/Creatinine Ratio 2.9 L (10-20) Glucose 90 (70-99) mg/dl Calcium 9.4 (8.5-10.1) mg/dl Iron 65 (35-175) mcg/dl TIBC 299 (250-450) mcg/dl Transferrin 210 (200-360) mg/dl Transferrin % Sat 22 (20-50) % Ferritin 843.1 H (8-388) ng/ml Prostate Specific Ag 5.030 H (0-4) ng/ml Vitamin B12 1014 H (193-986) pg/ml Folate > 20.00 (>5.38) ng/ml PG Care Time/CCT Total # of Minutes Spent Total Time Spent with Patient: Total time spent is greater than 50% in coordination of care (as documented) at patient's floor/unit and/or counseling patient: Coding Level of Care Code 49461 Subseq Hosp Care Lvl 3 Diagnoses Occipital headache R51.9 Neck pain M54.2 Nausea R11.0 Weakness R53.1 COPD (chronic obstructive pulmonary disease) J44.9 Hypoxia R09.02 TORRIE (obstructive sleep apnea) G47.[address] Z93.2 Hypothyroidism E03.9 Hypothyroidism type: acquired S/P MVR (mitral valve repair) Z98.890 History of DVT (deep vein thrombosis) Z86.718 Atrial fibrillation I48.0 Atrial fibrillation type: paroxysmal Chills R68.83 Elevated troponin R77.8 End stage renal disease on dialysis N18.6; Z99.2 CAD (coronary artery disease) I25.10 Associated angina: without angina Coronary Disease-Associated Artery/Lesion type: solomon artery [place] vs. transplanted heart: solomon heart Hydroureteronephrosis N13.30 Sore throat J02.9 Peripheral vascular disease I73.9 Depression F32.9 DVT prophylaxis Z29.9 (1) CAD (coronary artery disease) Associated angina: without angina Coronary Disease-Associated Artery/Lesion type: solomon artery [place] vs. transplanted heart: solomon heart Qualified Code(s): I25.10 - Atherosclerotic heart disease of solomon coronary artery without angina pectoris (2) Atrial fibrillation Atrial fibrillation type: paroxysmal Qualified Code(s): I48.0 - Paroxysmal atrial fibrillation (3) Hypothyroidism Hypothyroidism type: acquired Qualified Code(s): E03.9 - Hypothyroidism, unspecified
[2021-04-11] MEDS: PARoxetine HCL 20 MG TAB PO SCH (21:59)
[2021-04-11] MEDS: DOCUSATE SODIUM 100 MG CAP PO SCH (22:00)
[2021-04-11] MEDS: rOPINIRole HCL 0.25 MG TABLET PO SCH (22:00)
[2021-04-11] MEDS: ATORVASTATIN 40 MG TAB PO SCH (22:00)
[2021-04-12] MEDS: LEVOTHYROXINE SODIUM 88 MCG TABLET PO SCH (06:09)
[2021-04-12] MEDS ORDERED: SODIUM CHLORIDE 0.9% 1000ML 1,000 ML IV PRN (07:00)
[2021-04-12] MEDS ORDERED: EPOETIN ALFA 4,000 UNIT/ML VIAL IV ONE (07:00)
[2021-04-12 08:07] LABS: BUN Creatinine Ratio 3.2 (10-20); Calcium 9.3 mg/dl (8.5-10.1); Creatinine Clr Calc Pharmacy 9.3 ml/min; Est GFR (African American) 5.9 ml/min; Est GFR (Non-African American) 5.1 ml/min; Potassium 4.4 mmol/L (3.5-5.1)
[2021-04-12 08:42] LABS: Basophils # (auto) 0.04 K/uL (0-0.2); Basophils % (auto) 0.4 %; Eosinophils # (auto) 0.33 K/uL (0-0.5); Hemoglobin 11.9 g/dL (14.0-18.0); Immature Granulocytes # (auto) 0.07 K/uL (0.00-0.02); Immature Granulocytes % (auto) 0.6 %; Lymphocytes # (auto) 1.38 K/uL (1.2-3.4); Lymphocytes % (auto) 12.5 %; Mean Corpuscular Hemoglobin 31.9 pg (25-34); Mean Corpuscular Hgb Conc 32.2 g/dL (32-36); Mean Corpuscular Volume 99.2 fL (80-100); Monocytes # (auto) 1.42 K/uL (0.11-0.59); Monocytes % (auto) 12.8 %; Neutrophils # (auto) 7.82 K/uL (1.4-6.5); Neutrophils % (auto) 70.7 %; Platelet Count 163 K/uL (130-400); RDW Standard Deviation 54.3 fL (36.4-46.3); Red Blood Count 3.73 M/uL (4.7-6.1); White Blood Count 11.06 K/uL (4.8-10.8)
[2021-04-12] MEDS: CALCIUM ACETATE 667 MG CAP/TAB PO SCH ×3 (09:00→17:52)
[2021-04-12] MEDS: UMECLIDINIUM BROMIDE 62.5MCG/BLISTER 7 PUFFS/INHALER INH SCH (09:00)
[2021-04-12] MEDS: NYSTATIN SUSP 500,000 U/5 ML UDC PO SCH ×4 (09:00→20:42)
[2021-04-12] MEDS ORDERED: EPOETIN ALFA 2,000 UNITS in SYRINGE 0 ML IV SCH (09:00)
[2021-04-12] MEDS: DICLOFENAC SOD 1% GEL 100 GM TUBE EXT SCH ×4 (09:00→20:42)
[2021-04-12] MEDS: FLUTICASONE/VILANTEROL 200/25MCG 14 PUFFS/INHALER INH SCH (09:00)
[2021-04-12] MEDS: HEPARIN SOD 5,000 UNIT/0.5 ML VIAL SQ SCH ×2 (09:38→20:42)
--- NOTE | 2021-04-12 10:41 | Dialysis Progress Note ---
Date of Service April 12, 2021 Assessment & Plan Admission and Anticipated Discharge Date Admission Date: April 08, 2021 Subjective Seen during Dialysis. No problem with AVF. BP is fine. Just started so no complaints yet. Less SOB and no headache now. PHYSICAL EXAMINATION: GENERAL: Elderly white male who is not in overt respiratory distress; however, he does not appear to be very comfortable. HEENT: Mucous membrane is moist. NECK: Supple. CHEST: Bilaterally decreased breath sounds, prolonged expiration, bilateral crackles. CARDIOVASCULAR: S1 and S2 irregular. Systolic murmur heard. ABDOMEN: Soft, nontender. EXTREMITIES: Show no edema, but he has signs of advanced peripheral vascular disease in both legs. AV fistula in his right arm and has good bruit and thrill. DIAGNOSTIC STUDIES: CT abdomen and pelvis was reviewed and shows severe bilateral renal atrophy as well as bilateral hydroureteronephrosis. CT abdomen and pelvis does show severe bilateral hydroureteronephrosis up to the level of the bladder. He did not have this on his CAT scan from last year. ASSESSMENT AND PLAN: A 75-year-old male with end-stage renal disease, on chronic hemodialysis Thursday, Thursday, Thursday as well as extensive cardiopulmonary and vascular problems, admitted with progressive generalized weakness, ambulatory difficulty as well as poor appetite and essentially failure to thrive for the last few weeks. 1. End-stage renal disease: Electrolytes are acceptable. He is less short of breath today. SOB seems more deconditioning and pulmonary in etiology. However, we will try to take some fluid off today with dialysis. Plan for 3.5 hrs and take about 2.5 off. 2k 2. Bladder outlet obstruction: He has bilateral hydronephrosis as well as hydroureter related with bladder outlet obstruction. Reviewed urology note. Given minimal urine and ESRD no benefit from doing intervention Results & Data ([facility]) Vital Signs (Past 12 Hours) Vital Signs Temp Pulse Pulse Pulse Resp BP BP 04/12/21 09:40 67 125/71 04/12/21 09:28 70 133/72 04/12/21 09:25 36.9 C 70 04/12/21 08:15 36.6 C 65 19 150/67 H 04/12/21 07:10 64 04/12/21 02:58 36.7 C 68 18 140/71 04/12/21 00:44 65 Pulse Ox 04/12/21 09:40 04/12/21 09:28 04/12/21 09:25 04/12/21 08:15 91 04/12/21 07:10 04/12/21 02:58 92 04/12/21 00:44
[2021-04-12] MEDS: PREGABALIN 75 MG CAP PO SCH (14:40)
[2021-04-12] MEDS: FAMOTIDINE 20 MG TAB PO SCH (15:48)
[2021-04-12] MEDS: CLOPIDOGREL BISULFATE 75 MG TAB PO SCH (15:48)
[2021-04-12] MEDS: PANTOprazole 40 MG TAB PO SCH (15:48)
[2021-04-12] MEDS: ASPIRIN 81 MG ECTAB PO SCH (15:49)
[2021-04-12] MEDS: NEPHROCAPS PO SCH (15:50)
--- NOTE | 2021-04-12 16:12 | Progress Notes ---
DATE OF SERVICE: 04/12/2021 The patient has recovered from his endoscopy yesterday and I informed him that he has a venous malfor mation in the upper esophagus that is somewhat impinging on the esophageal lumen and this is what is responsible for his difficulty swallowing. Unfortunately, it is in a very difficult position to inst rument being very close to his airway and the fact that he is on long-term anticoagulants. At this p oint, I have recommended that he chew his food well, avoid steak and bread, drink lots of liquids wit h his meals and it is unlikely that this is going to enlarge significantly in the next 5 years, which is probably the extent of his lifetime. We will sign off the case at this time. Please contact us if you have any other GI concerns. Job ID: [id number]
--- NOTE | 2021-04-12 19:15 | Hospitalist Progress Note ---
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 that is the reason for obstruction and regurgitation Unfortunately, there is not much that can be done about this as per GI CT abdomen/pelvis without obstruction and he has stool in his ostomy Continue PPI -GI recommends soft diet/minced and moist, chewing well, and frequent sips of liquids to get food down -He had one episode of aspiration with eating on the morning of 04/12, but after reminder of dietary/speech recommendations, he tolerated lunch and dinner without difficulty Appreciate dietary consultation to see about supplements since he has had poor nutrition contributing to his general decline in the last 3 weeks (2) Occipital headache: 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 Doubt temporal arteritis - wrong location for such. Also, ESR is presently low at 27 despite advanced age and renal failure. Checked c-spine CT --with moderate to severe degenerative changes throughout cervical spine with moderate to severe disc space narrowing at C3-C7 Headache is now resolved with Voltaren gel, heating pad, and Tylenol as needed May benefit from acupuncture if recurs in the future Avoid any opioids as he has significant reactions to such including tramadol (3) Neck pain: Severely restricted passive ROM of neck. Reports much improved since starting Voltaren gel Continue Voltaren gel, Tylenol (4) Weakness: Patient is very poor historian. Attribute many of his symptoms including his weakness to having his HD changed several weeks ago? But more likely due to poor nutrition from worsening nausea with vomiting due to esophageal obstruction He sounds like he has had severe, worsening deconditioning. Does not have myelopathy on examination He doesn't have any obvious infectious etiology but does report chills on regular basis. Obtain blood cultures x 2 to be complete. No growth to date so far PT/OT evaluations-okay to go home with home health (5) COPD (chronic obstructive pulmonary disease): No acute issues except does require oxygen-unclear if this is an acute or chronic issue Continue home inhalers. Continues to become hypoxic into the 80s with minimal exertion on room air- remains on O2 now continuously 2 L Uncertain if hypoxia is due to COPD or other entity. Also has some pleural effusions on CT Plan for removal of extra fluid with hemodialysis No obvious pneumonia. Dopplers of lower extremities negative for DVT I do not suspect PE -will need a two-step test prior to discharge and will likely go home with oxygen-we will order to stop for the morning (6) Hypoxia: see discussion above in "COPD" (7) TORRIE (obstructive sleep apnea): Previously on CPAP as per pulmonology notes, but needed repeat sleep study (8) Ileostomy in place: functioning normally (9) Hypothyroidism: TSH here wnl cont synthroid w/o changes (10) S/P MVR (mitral valve repair): noted echo in 2019 showed intact mitral valve function no signs/symptoms of valve failure (11) History of DVT (deep vein thrombosis): noted Bilateral venous Dopplers negative for DVT (12) Atrial fibrillation: paroxysmal NOT on chronic anticoagulation remains on amiodarone 200mg q2days place on telemetry-remains in sinus rhythm with wandering atrial pacemaker, first-degree AV block, rate 60s 70s (13) Chills: infectious etiology? Seems to be resolved check blood cultures x 2-no growth to date No antibiotics indicated TSH wnl (14) Elevated troponin: likely myocardial demand ischemia no evidence of ACS, no chest pain, no ischemic changes on EKG Troponin not trended-no need to do so now (15) End stage renal disease on dialysis: RUE AV fistula dialyzes at [facility] in [place] primary manager web application - Dr Manuela Landrum consult [facility] for HD management usual schedule M/W/F Continue inpatient dialysis on same schedule continue phosphate binders Nephrology trying to remove extra fluid given that he has hypoxia and some pleural effusions (16) CAD (coronary artery disease): No acute issues Cont asa, statin, plavix (17) Hydroureteronephrosis: b/l, severe, on CT here of abdomen/pelvis likely due to enlarged prostate, enlarged heterogenous prostate seen on CT scan Makes very minimal urine He was straight cathed by urology on 04/11 for small amount of urine-urine culture sent-no growth to date PSA mildly elevated at 5 uncertain if any Rx is needed given his ESRD status. Nephrology recommended consultation with urology-did not feel this was clinically significant as he does not make urine No further evaluation needed (18) Sore throat: candidiasis of mouth/throat? 2nd to GERD or regurgitation No complaints of this any further Continue nystatin solution 5cc qid for possible thrush. 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 He had an episode this morning of choking while eating breakfast. He was then able to cough it out and his pulse ox was 96% on room air as per nursing. He also had a minor bloody nose which then stopped. Later, the nurse placed him on 2 L nasal cannula as his pulse ox was 85% but he has been this way throughout his hospitalization. Patient was unable to eat lunch and dinner without any difficulty after being re minded to take small bites with followed by small sips of fluid and soft foods only. He reports his headache is completely gone neck pain improved. No chest pain or shortness of breath. Telemetry with normal sinus rhythm with rates in the 60s to 70s with some PVCs Review of Systems Review of Systems: All systems reviewed & are unremarkable except as noted in HPI & below Physical Exam Constitutional: WD/WN, vitals as above + ill appearing (chronically) Eyes: + anicteric sclerae Neck: trachea midline, no thyromegaly Respiratory: normal respiratory effort Auscultation: + crackles (bibasilar); no rhonchi and no wheezes Cardiovascular: Rate/Rhythm: regular rate and regular rhythm Heart Sounds: no murmur Extremities: + edema (woody 1+ pitting edema legs) Chest (Breasts): Chest: normal inspection of chest Gastrointestinal (Abdomen): normal bowel sounds, soft, nontender, no hepatosplenomegaly Musculoskeletal: Extremities: + extremities abnormal to inspection (right foot TMA), no cyanosis and no clubbing Skin: + wound (scabbed over wounds left leg and 4th toe) Neurologic: moves all extremities and awake; no focal motor deficits Psychiatric: A+Ox3, euthymic affect Orientation: cooperative Results & Data Results & Data ([facility]) Vital Signs (Past 12 Hours) Vital Signs Temp Pulse Pulse Resp BP BP Pulse Ox 04/12/21 17:03 72 04/12/21 13:25 36.9 C 69 128/66 04/12/21 12:40 69 116/71 04/12/21 12:20 63 112/61 04/12/21 12:00 65 117/65 04/12/21 11:40 64 123/67 04/12/21 11:20 61 105/62 04/12/21 11:00 65 109/61 04/12/21 10:40 64 95/56 L 04/12/21 10:20 61 107/61 04/12/21 10:00 65 110/64 04/12/21 09:40 67 125/71 04/12/21 09:28 70 133/72 04/12/21 09:25 36.9 C 70 04/12/21 08:15 36.6 C 65 19 150/67 H 91 04/12/21 07:10 64 Laboratory Results 04/12/21 04/12/21 04/12/21 Range/Units 08:16 06:34 06:34 WBC 11.06 H Cancelled RBC 3.73 L Cancelled Hgb 11.9 L Cancelled Hct 37.0 L Cancelled MCV 99.2 Cancelled MCH 31.9 Cancelled MCHC 32.2 Cancelled RDW Std Deviation 54.3 H Cancelled RDW Coeff of Jolanta 15.0 H Cancelled Plt Count 163 Cancelled MPV 9.0 Cancelled Immature Gran % (Auto) 0.6 Cancelled Neut % (Auto) 70.7 Cancelled Lymph % (Auto) 12.5 Cancelled Dillon % (Auto) 12.8 Cancelled Eos % (Auto) 3.0 Cancelled Baso % (Auto) 0.4 Cancelled Neut # (Auto) 7.82 H Cancelled Lymph # (Auto) 1.38 Cancelled Dillon # (Auto) 1.42 H Cancelled Eos # (Auto) 0.33 Cancelled Baso # (Auto) 0.04 Cancelled Immature Gran # (Auto) 0.07 H Cancelled Absolute Nucleated RBC Cancelled Nucleated RBC % (auto) Cancelled Neutrophils % (Manual) Cancelled Band Neutrophils % Cancelled Lymphocytes % (Manual) Cancelled Prolymphocyte % Cancelled Reactive Lymphs % (Man) Cancelled Monocytes % (Manual) Cancelled Eosinophils % (Manual) Cancelled Basophils % (Manual) Cancelled Metamyelocytes % (Man) Cancelled Myelocytes % (Man) Cancelled Promyelocytes % (Man) Cancelled Blast Cells % (Manual) Cancelled Plasma Cell % (Manual) Cancelled Other Cells % Cancelled Nucleated RBC % Cancelled Neutrophils # (Manual) Cancelled Band Neutrophils # Cancelled Total Absolute Neuts Cancelled Lymphocytes # (Manual) Cancelled Prolymphocyte # Cancelled Reactive Lymphs # Cancelled Total Abs Lymphocytes Cancelled Monocytes # (Manual) Cancelled Eosinophils # (Manual) Cancelled Basophils # (Manual) Cancelled Metamyelocytes # (Man) Cancelled Myelocytes # (Manual) Cancelled Promyelocytes # (Man) Cancelled Blast Cells # (Man) Cancelled Plasma Cell # (Manual) Cancelled Other Cells # Cancelled Nucleated RBCs # (Man) Cancelled Hypersegmented Neuts Cancelled Hyposegmented Neuts Cancelled Hypogranular Neuts Cancelled Large Granular Lymphs Cancelled # Lrg Granular Lymphs Cancelled Hairy Cells Cancelled Smudge Cells Cancelled Toxic Granulation Cancelled Toxic Vacuolation Cancelled Dohle Bodies Cancelled Michelle Rods Cancelled Platelet Estimate Cancelled Hypogranular Platelets Cancelled Clumped Platelets Cancelled Giant Platelets Cancelled Platelet Satelliting Cancelled RBC Morphology Cancelled Polychromasia Cancelled Hypochromasia Cancelled Poikilocytosis Cancelled Basophilic Stippling Cancelled Anisocytosis Cancelled Microcytosis Cancelled Macrocytosis Cancelled Spherocytes Cancelled Pappenheimer Bodies Cancelled Sickle Cells Cancelled Target Cells Cancelled Tear Drop Cells Cancelled Ovalocytes Cancelled Stomatocytes Cancelled [place] Bodies Cancelled Echinocytes Cancelled Acanthocytes (Spur) Cancelled Rouleaux Cancelled RBC Agglutinates Cancelled Schistocytes Cancelled RBC Morph Comment Cancelled Sezary Cell Cancelled Sodium 137 (136-145) mmol/L Potassium 4.4 (3.5-5.1) mmol/L Chloride 101 (98-107) mmol/L Carbon Dioxide 28 (21-32) mmol/L Anion Gap 7.0 (3-11) BUN 29 H (7-18) mg/dl Creatinine 9.02 H* D (0.6-1.4) mg/dl Est Cr Clr Drug Dosing 9.3 ml/min Est GFR ( Amer) 5.9 ml/min Est GFR (Non-Af Amer) 5.1 ml/min BUN/Creatinine Ratio 3.2 L (10-20) Glucose 89 (70-99) mg/dl Calcium 9.3 (8.5-10.1) mg/dl Specimen Hemolysis PG Care Time/CCT Total # of Minutes Spent Total Time Spent with Patient: Total time spent is greater than 50% in coordination of care (as documented) at patient's floor/unit and/or counseling patient: Coding Level of Care Code 43105 Subseq Hosp Care Lvl 2 Diagnoses Nausea R11.0 Occipital headache R51.9 Neck pain M54.2 Weakness R53.1 COPD (chronic obstructive pulmonary disease) J44.9 Hypoxia R09.02 TORRIE (obstructive sleep apnea) G47.[address] Z93.2 Hypothyroidism E03.9 Hypothyroidism type: acquired S/P MVR (mitral valve repair) Z98.890 History of DVT (deep vein thrombosis) Z86.718 Atrial fibrillation I48.0 Atrial fibrillation type: paroxysmal Chills R68.83 Elevated troponin R77.8 End stage renal disease on dialysis N18.6; Z99.2 CAD (coronary artery disease) I25.10 Associated angina: without angina Coronary Disease-Associated Artery/Lesion type: [place] artery [place] vs. transplanted heart: [place] heart Hydroureteronephrosis N13.30 Sore throat J02.9 Peripheral vascular disease I73.9 Depression F32.9 DVT prophylaxis Z29.9 (1) CAD (coronary artery disease) Associated angina: without angina Coronary Disease-Associated Artery/Lesion type: [place] artery [place] vs. transplanted heart: [place] heart Qualified Code(s): I25.10 - Atherosclerotic heart disease of [place] coronary artery without angina pectoris (2) Atrial fibrillation Atrial fibrillation type: paroxysmal Qualified Code(s): I48.0 - Paroxysmal atrial fibrillation (3) Hypothyroidism Hypothyroidism type: acquired Qualified Code(s): E03.9 - Hypothyroidism, unspecified
[2021-04-12] MEDS: PARoxetine HCL 20 MG TAB PO SCH (20:42)
[2021-04-12] MEDS: ATORVASTATIN 40 MG TAB PO SCH (20:42)
[2021-04-12] MEDS: rOPINIRole HCL 0.25 MG TABLET PO SCH (20:42)
[2021-04-12] MEDS: DOCUSATE SODIUM 100 MG CAP PO SCH (20:44)
[2021-04-13] MEDS: LEVOTHYROXINE SODIUM 88 MCG TABLET PO SCH (05:41)
[2021-04-13] MEDS: ASPIRIN 81 MG ECTAB PO SCH (07:47)
[2021-04-13] MEDS: FLUTICASONE/VILANTEROL 200/25MCG 14 PUFFS/INHALER INH SCH (07:47)
[2021-04-13] MEDS: CALCIUM ACETATE 667 MG CAP/TAB PO SCH ×2 (07:47→12:01)
[2021-04-13] MEDS: CLOPIDOGREL BISULFATE 75 MG TAB PO SCH (07:47)
[2021-04-13] MEDS: AMIODARONE 200 MG TAB PO SCH (07:47)
[2021-04-13] MEDS: PREGABALIN 75 MG CAP PO SCH (07:48)
[2021-04-13] MEDS: PANTOprazole 40 MG TAB PO SCH (07:48)
[2021-04-13] MEDS: UMECLIDINIUM BROMIDE 62.5MCG/BLISTER 7 PUFFS/INHALER INH SCH (07:48)
[2021-04-13] MEDS: HEPARIN SOD 5,000 UNIT/0.5 ML VIAL SQ SCH (07:48)
[2021-04-13] MEDS: NEPHROCAPS PO SCH (07:48)
[2021-04-13] MEDS: NYSTATIN SUSP 500,000 U/5 ML UDC PO SCH ×2 (07:48→12:02)
[2021-04-13] MEDS: ACETAMINOPHEN 325 MG TAB PO PRN (07:49)
[2021-04-13] MEDS: DICLOFENAC SOD 1% GEL 100 GM TUBE EXT SCH ×2 (07:50→12:01)
--- NOTE | 2021-04-13 11:57 | Discharge Summary ---
Date of Service April 13, 2021 Admission HPI Per Admitting Provider Chief Complaint: illness Primary Care Provider: Emil Lazcano MD 75yo male with h/o ESRD on HD M/W/F at [facility] - follows with Dr Alcantar with [facility] - who presents with multiple complaints. He c/o the following - 1. posterior headache - occipital/neck - takes tylenol for it. Worse in the am upon awakening. No temporal tenderness or frontal headache. Looking to the left/turning the head & neck left makes it feel worse. Has right hand numbness - present for 2 months. Has associated nausea. Had headaches as a child - migraines. His headaches worsen after getting dialysis treatments. Tylenol not helping. 2. poor appetite last few weeks. States "for 3 weeks.". 3. after HD today he tried to stand to get into the wheelchair but he had generalized weakness. He almost fell but luckily the nurse "caught him." He felt dizzy/lightheaded. The latter is not a chronic issue. 4. using wheelchair mainly at home rather than walking. Earlier in the spring his walking got worse. 5. c/o dyspnea x 3 weeks. Using neb treatments at home to help symptoms without any improvement. Dyspnea is mainly exertional. 6. c/o stomach pain. Has ileostomy. Has nausea when he wakes up in the morning. GI symptoms also present for 3 weeks. He mentions 3 weeks ago because his dry weight was changed several weeks ago by nephrology. His treatments were extended a bit longer as well to pull more fluid. Today he states he asked the dialysis nurse not to pull fluid? Principal Diagnosis Nausea/vomiting, Esophageal venous malformation causing obstruction, Occipital headache-tension type, Neck pain secondary to arthritis, Hypoxia Discharge Exam Constitutional WD/WN, vitals as above + ill appearing (chronically) Eyes + anicteric sclerae Neck trachea midline, no thyromegaly Respiratory normal respiratory effort, lungs clear to auscultation Cardiovascular Rate/Rhythm: regular rate and regular rhythm Heart Sounds: no murmur Extremities: no edema Chest (Breasts) Chest: normal inspection of chest Gastrointestinal (Abdomen) normal bowel sounds, soft, nontender, no hepatosplenomegaly Musculoskeletal Extremities: + extremities abnormal to inspection (right foot TMA), no cyanosis and no clubbing Skin + wound (scabbed over wounds left leg and 4th toe) Neurologic moves all extremities and awake; no focal motor deficits Psychiatric A+Ox3, euthymic affect Orientation: cooperative Discharge Data Allergies Allergy/AdvReac Type Severity Reaction Status Date / Time oxycodone AdvReac Severe DELIRIUM Verified 04/08/21 16:18 tramadol AdvReac Severe dizziness;a Verified 04/08/21 16:19 nxiety;sob gabapentin AdvReac Intermediate Nausea Verified 04/08/21 16:19 Consultations 04/08/21 18:28 ED Decision to Admit Stat 04/09/21 01:47 Consult Nephrology Routine 04/09/21 13:39 Consult Urology Routine 04/09/21 13:42 Consult Gastroenterology Routine 04/10/21 08:49 Consult Anesthesiology Routine Procedures Performed Operation Date: 04/11/21 16:30 Actual Procedures p Esophagogastroduodenoscopy - Efren Montoya Denita Ordered Studies 04/08/21 16:19 CT abd pelvis wo con Stat CT head/brain wo con Stat 04/08/21 19:33 US venous doppler LE BI Urgent 04/08/21 19:49 CT cervical spine wo con Urgent Abdomen/Pelvis CT 04/08/21 16:19 CT SCAN OF THE ABDOMEN AND PELVIS WITHOUT IV CONTRAST CLINICAL HISTORY: Generalized abdominal pain. Nausea. COMPARISON STUDY: Abdominal CT dated 05/05/2020. TECHNIQUE: CT scan of the abdomen and pelvis is performed from the lung bases to the proximal femora. Images are reviewed in the axial, sagittal, and coronal planes. IV contrast was not administered for this examination. Note that the examination was performed in significantly suboptimal fashion without oral and IV contrast. The examination is compromised by motion artifact. A dose lowering technique was utilized adhering to the principles of ALARA. CT DOSE: 1165.07 mGy.cm FINDINGS: Lung bases: The patient is status post midline sternotomy and mitral valve surgery. The heart is enlarged and without pericardial effusion. The coronary arteries are densely calcified. Dependent atelectasis at the right lung base is similar to previous. Probable scarring seen at both lung bases. No airspace consolidation is seen typical for pneumonia and there is no pleural effusion.. A small hiatal hernia is noted. Liver: The unenhanced liver is normal in size, contour, and attenuation. There is no intrahepatic biliary ductal dilatation. Gallbladder: Surgically absent noting clips in the gallbladder fossa. Spleen: Normal in size and attenuation. 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 Pancreas: The unenhanced pancreas is moderately atrophic and grossly unremarkable. Adrenal glands: Unremarkable. Kidneys: The unenhanced kidneys are markedly atrophic. There is moderate to severe bilateral hydroureteronephrosis. The ureters are dilated to the level of the bladder. No renal calculi are identified. Extensive renovascular calcifications are noted. The kidneys are infiltrated by numerous simple and complex cysts which measure up to 4.1 cm. Abdominal vasculature: There is advanced atherosclerotic calcification of the abdominal aorta. The patient is status post aortoiliac stent graft repair of an infrarenal abdominal aortic aneurysm. No significant residual aneurysm sac is identified. 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 No bowel obstruction is identified. Peritoneum: There is no intraperitoneal free air or abdominal ascites. There is laxity of the ventral abdominal wall with diastases of the rectus musculature and protrusion of bowel contents. Lymphadenopathy: None. Pelvic viscera: The prostate gland is mildly enlarged and heterogeneous noting median lobe hypertrophy. The bladder wall is thickened and trabeculated indicating chronic outlet obstruction. There are bilateral fat-containing inguinal hernias. Skeletal structures: The skeletal structures are osteopenic. There is advanced lumbosacral spondylosis. Erosive degenerative change at L4-L5 is similar to previous. A chronic compression deformity of L2 is unchanged. No lytic or blastic lesions are seen. IMPRESSION: 1. There is marked renal cortical atrophy with moderate to severe bilateral hy droureteronephrosis. Both ureters are dilated to the level of the bladder, and this may be related to bladder obstruction. The bladder is only partially distended. 2. 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 No bowel obstruction is seen. 3. Cardiomegaly. 4. Additional chronic changes as above. ACT 112: Negative or not required by law. Electronically signed by: Walker Ellis M.D. 04/08/2021 5:05 PM Chest X-Ray 04/08/21 16:19 XR chest 1V portable CLINICAL HISTORY: weakness COMPARISON STUDY: May 05, 2020 FINDINGS: No pneumothorax. Small to moderate left pleural effusion is seen. Mixed reticular and airspace opacities are seen in bilateral bases could represent atelectasis/infiltrates. Mild pleural thickening at the right lateral chest wall is unchanged since prior. Lung volumes are decreased with crowded lung markings. Cardiac silhouette is within upper limits of normal and partially obscured by surrounding opacities. 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 No significant pulmonary vascular congestion.. Aorta is calcified. Visualized osseous structures: Unremarkable. Vertebral bodies are not well seen. Midline sternotomy wires are seen. IMPRESSION: 1. Small to moderate left pleural effusion. 2. Atelectasis/infiltrates at bilateral lower lungs. 3. Atherosclerosis. ACT 112: Negative or not required by law. The above report was generated using voice recognition software. It may contain grammatical, syntax or spelling errors. Electronically signed by: Sheyla Kaur DO 04/08/2021 5:[address] 04/08/21 16:19 CT head/brain wo con CLINICAL HISTORY: headache COMPARISON STUDY: No previous studies for comparison. TECHNIQUE: Axial CT of the brain is performed from the vertex to the skull base. IV contrast was not administered for this examination. A dose lowering technique was utilized adhering to the principles of ALARA. CT DOSE: 1547.15 mGy.cm FINDINGS: No acute intracranial hemorrhage, no midline shift or space occupying lesions. Evaluation is slightly limited due to beam hardening artifact. Slight atrophic changes of brain parenchyma are seen. There are patchy white matter hypodensities likely on a small vessel basis. Mild calcifications of bilateral basal ganglia are seen. There is no evidence of pathologic ventricular dilatation. There are no acute depressed skull fractures are seen. Visualized paranasal sinuses and mastoid air cells are patent and well-aerated. Prominent vascular calcifications are seen within the anatomical region of bilateral carotid arteries and scalp vessels. IMPRESSION: 1. No acute intracranial hemorrhage, no midline shift or space-occupying lesions. 2. Chronic small vessel ischemia. 3. Minimal atrophic changes of brain parenchyma. 4. Prominent calcifications of the scalp vessels are seen. ACT 112: Negative or not required by law. The above report was generated using voice recognition software. It may contain grammatical, syntax or spelling errors. Electronically signed by: Sheyla Kaur DO 04/08/2021 4:56 PM Venous Doppler Study 04/08/21 19:33 ULTRASOUND BILATERAL LOWER EXTREMITY VENOUS CLINICAL HISTORY: Asymmetric legs. COMPARISON STUDY: Bilateral lower extremity venous ultrasound dated 05/24/2019. TECHNIQUE: Real-time, grayscale, and color Doppler sonography of the deep veins of the right and left lower extremity was performed from the inguinal crease to the calf. Compression and augmentation were utilized. FINDINGS: There is no sonographic evidence of deep venous thrombosis identified in the right or left lower extremity. The common femoral, superficial femoral, and popliteal veins are patent and normally compressible bilaterally. The greater saphenous vein and the profunda femoris vein at the junction with the common femoral vein are clear in both legs. The visualized calf veins are patent bilaterally. An arterial bypass in the right lower extremity appears occluded. 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 IMPRESSION: 1. There is no sonographic evidence of deep venous thrombosis identified in the right or left lower extremity. 2. An arterial bypass in the right lower extremity appears occluded. 3. A partially thrombosed right popliteal artery aneurysm is again noted. ACT 112: Negative or not required by law. Electronically signed by: Walker Ellis M.D. 04/09/2021 7:[address] 04/08/21 19:[address] DOSE: 535.97 mGy.cm HISTORY: severe posterior neck pain; eval Fx, DJD, etc TECHNIQUE: Multiaxial CT images of the cervical spine were performed and reformatted in the sagittal and coronal plane without the use of contrast. A dose lowering technique was utilized adhering to the principles of ALARA. COMPARISON: None. FINDINGS: No fractures. No subluxation. Prevertebral soft tissues and the C1-C2 interval are intact. No pneumothorax. Moderate thickening of the visualized proximal esophagus. Moderate to severe facet degenerative changes throughout the cervical spine. There is moderate to severe disc space narrowing at C3-C4, C4- C5, and C6-C7. Mild disc space narrowing at C5-C6. IMPRESSION: 1. No fractures within the cervical spine. 2. Degenerative changes as described above. 3. Moderate thickening of the visualized proximal esophagus. ACT 112: Negative or not required by law. Electronically signed by: Joey Leggett M.D. 04/09/2021 7:01 AM Hospital Course (1) Nausea: With progressively worsening dysphagia and regurgitation/vomiting of even liquids that I witnessed during his stay here Moderate thickening of proximal esophagus seen on CT scan of the cervical spine Consult GI appreciated EGD on 04/11 showed large venous malformation in the proximal esophagus that is the reason for obstruction and regurgitation Unfortunately, there is not much that can be done about this as per GI CT abdomen/pelvis without obstruction and he has stool in his ostomy Continue PPI -GI recommends soft diet/minced and moist, chewing well, and frequent sips of liquids to get food down -He had one episode of aspiration with eating on the morning of 04/12, but after reminder of dietary/speech recommendations, he tolerated all meals since without difficulty Appreciate dietary consultation to see about supplements since he has had poor nutrition contributing to his general decline in the last 3 weeks (2) Occipital headache: 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 Doubt temporal arteritis - wrong location for such. Also, ESR is presently low at 27 despite advanced age and renal failure. Checked c-spine CT --with moderate to severe degenerative changes throughout cervical spine with moderate to severe disc space narrowing at C3-C7 Headache is now resolved with Voltaren gel, heating pad, and Tylenol as needed May benefit from acupuncture if recurs in the future Avoid any opioids as he has significant reactions to such including tramadol (3) Neck pain: Severely restricted passive ROM of neck. Reports much improved since starting Voltaren gel Continue Voltaren gel, Tylenol (4) Weakness: Patient is very poor historian. Attribute many of his symptoms including his weakness to having his HD changed several weeks ago? But more likely due to poor nutrition from worsening nausea with vomiting due to esophageal obstruction He sounds like he has had severe, worsening deconditioning. Does not have myelopathy on examination He doesn't have any obvious infectious etiology but does report chills on regular basis. Obtain blood cultures x 2 to be complete. No growth to date so far PT/OT evaluations-okay to go home with home health (5) COPD (chronic obstructive pulmonary disease): No acute issues except does require oxygen-unclear if this is an acute or chronic issue Continue home inhalers. Continues to become hypoxic into the 80s with minimal exertion on room air- remains on O2 now continuously 2 L Uncertain if hypoxia is due to COPD or other entity. Also has some pleural effusions on CT Plan for removal of extra fluid with hemodialysis No obvious pneumonia. Dopplers of lower extremities negative for DVT I do not suspect PE requires 2LNC O2 continuously to go home with (6) Hypoxia: see discussion above in "COPD" (7) TORRIE (obstructive sleep apnea): Previously on CPAP as per pulmonology notes, but needs repeat sleep study now on 2LNC continuous (8) Ileostomy in place: functioning normally (9) Hypothyroidism: TSH here wnl cont synthroid w/o changes (10) S/P MVR (mitral valve repair): noted echo in 2019 showed intact mitral valve function no signs/symptoms of valve failure (11) History of DVT (deep vein thrombosis): noted Bilateral venous Dopplers negative for DVT (12) Atrial fibrillation: paroxysmal NOT on chronic anticoagulation remains on amiodarone 200mg q2days place on telemetry-remains in sinus rhythm with first-degree AV block, rate 60s 70s (13) Chills: infectious etiology? Seems to be resolved check blood cultures x 2-no growth to date No antibiotics indicated TSH wnl (14) Elevated troponin: likely myocardial demand ischemia no evidence of ACS, no chest pain, no ischemic changes on EKG Troponin not trended-no need to do so now (15) End stage renal disease on dialysis: RUE AV fistula dialyzes at [facility] in [place] primary spinner box - Dr Manuela Landrum consult [facility] for HD management usual schedule M/W/F Continue inpatient dialysis on same schedule continue phosphate binders Nephrology trying to remove extra fluid given that he has hypoxia and some pleural effusions (16) CAD (coronary artery disease): No acute issues Cont asa, statin, plavix (17) Hydroureteronephrosis: b/l, severe, on CT here of abdomen/pelvis likely due to enlarged prostate, enlarged heterogenous prostate seen on CT scan Makes very minimal urine He was straight cathed by urology on 04/11 for small amount of urine-urine culture sent-no growth to date PSA mildly elevated at 5 uncertain if any Rx is needed given his ESRD status. Nephrology recommended consultation with urology-did not feel this was clinically significant as he does not make urine No further evaluation needed (18) Sore throat: candidiasis of mouth/throat? 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 and the foot is cool but he is asymptomatic at this time, pulses are not palpable-recommend Dopplers to check pulses Continue aspirin, statin, Plavix With neuropathy-continue pregabalin (20) Depression: Stable Continue home paroxetine (21) DVT prophylaxis: heparin 5000 BID Disposition-dc to home with home health Total Time Total Time Spent Total Time Spent (In Minutes): 35 min Total Time Includes: Examination of the Patient, Discharge Planning and Medication Reconciliation Discharge Plan Discharge Items Patient Disposition: Home - Home Health Services Reason For Visit: SEVERE HEADACHES/NECK PAIN, HYPOXIA, WEAKNESS Discharge Diagnosis: Nausea/vomiting, Esophageal venous malformation causing blockage, Headache, neck arthritis and pain, Hypoxia Condition on Discharge: Fair Activity: Resume your previous activity Exercise/Sports: Gradually increase as tolerated Non-emergency contact: Primary Care Provider and [employer] Call non-emergency contact if: you have any medication questions, your symptoms worsen and your pain is not controlled Follow-up/Referrals: Emil Lazcano MD [Primary Care Provider] - 04/22/21 2:15 pm () Diet: Dialysis Renal Diet Texture: Dental soft (bite-sized) Diet Comment: Soft, moist foods. Small bites, follow each bite with sip of fluid. Addtl Attending Provider Instructions: You were admitted with generalized weakness and nausea/vomiting, headaches and neck pain. You were found to have an enlarged blood vessel in your upper esophagus (food pipe) that was causing a blockage. There is nothing that can be done for this surgically, but you should take small bites of soft foods only, followed by sips of fluid to get your food down without vomiting. Your headaches and neck pain were somewhat improved with tylenol and voltaren gel. You can continue these. You will also need oxygen at home from now on. Please keep your usual dialysis schedule on Thursday. Pending Studies at Discharge: Yes Stand-Alone Forms: My [facility] Medications and DC Order Prescriptions: New nystatin 100,000 unit/mL Suspension 5 ml PO QID 7 Days Qty: 140 RF: 0 pantoprazole 40 mg Tablet,Delayed Release (Dr/Ec) 40 mg PO QAM Qty: 30 RF: 0 diclofenac sodium [Voltaren Arthritis Pain] 1 % gel 2 g topical QID Qty: 100 RF: 0 acetaminophen 325 mg capsule 650 mg PO QID PRN (Reason: pain) Qty: 30 RF: 0 Continued atorvastatin 40 mg tablet 40 mg PO HS Qty: 90 RF: 3 Breo Ellipta 200-25 mcg/dose blister with device 1 inh INHALATION QAM Qty: 84 RF: 3 levothyroxine 88 mcg tablet 88 mcg PO DAILY Qty: 90 RF: 3 clopidogrel 75 mg tablet 75 mg PO DAILY Qty: 90 RF: 3 amiodarone 200 mg tablet 200 mg PO Q OTHER DAY Qty: 14 RF: 5 paroxetine HCl 20 mg tablet 20 mg PO HS Qty: 90 RF: 3 Spiriva with HandiHaler 18 mcg capsule, w/inhalation device 1 cap INHALATION QAM Qty: 1 RF: 4 omeprazole 20 mg tablet,delayed release (DR/EC) 40 mg PO QAM RF: 0 Lyrica 75 mg capsule 75 mg PO QAM Qty: 30 RF: 3 aspirin [Aspirin Low Dose] 81 mg Tablet,Delayed Release (Dr/Ec) 81 mg PO DAILY RF: 0 Triphrocaps 1 mg capsule 1 mg PO DAILY RF: 0 calcium acetate(phosphat bind) 667 mg Capsule 667 mg PO TIDM RF: 0 docusate sodium 100 mg capsule 100 mg PO HS RF: 0 acetaminophen 325 mg capsule 650 mg PO BID PRN (Reason: FEVER/PAIN) RF: 0 sennosides [Senokot] 8.6 mg Tablet 8.6 mg PO DAILY PRN (Reason: Constipation) RF: 0 ipratropium-albuterol 0.5 mg-3 mg(2.5 mg base)/3 mL Solution For Nebulization 3 ml INHALATION Q4H PRN (Reason: Shortness Of Breath) RF: 0 lidocaine [Aspercreme (lidocaine HCl)] 4 % Adhesive Patch,Medicated 1 patch TOPICAL DAILY PRN (Reason: Pain) RF: 0 ropinirole 0.25 mg Tablet 0.25 mg PO HS RF: 0 nitroglycerin [Nitrostat] 0.4 mg Tablet, Sublingual 0.4 mg sublingual DIRECTED PRN (Reason: Chest Pain) RF: 0 alum-mag hydroxide-simeth [Maalox] 200-200-20 mg/5 mL Suspension 30 ml PO DIRECTED PRN (Reason: Indigestion) RF: 0 famotidine 20 mg tablet 20 mg PO 3XWK RF: 0 Changed temazepam 15 mg capsule 15 mg PO HS PRN (Reason: Sleep) Qty: 60 RF: 0 Discontinued ondansetron HCl [Zofran] 2 mg/mL Solution 4 mg IV DIRECTED PRN (Reason: Nausea) RF: 0 sodium chloride 0.9 % [Normal Saline] Solution 100 ml IV DIRECTED PRN (Reason: CRAMPING/HYPOTENSION) RF: 0 Discharge Orders: Discharge Order (Routine); Ordered 04/13/21 Ordered By: Fatuma Araya Admission Data Admit Date/Time: 04/08/21 19:49 Attending Provider: Fatuma Araya Admit Provider: Tan Chacon Primary Care Provider: Emil Lazcano Other Providers: Tan Chacon ; Christina Landrum ; Aiden Schaeffer ; Efren Barger ; Deepak Zavala Other Interventions: Discharge Summary Assessment (RN) Last Done: 04/11/21 16:08 Coding Level of Care Code D/C Day Management >30 mins Diagnoses Nausea R11.0 Occipital headache R51.9 Neck pain M54.2 Weakness R53.1 COPD (chronic obstructive pulmonary disease) J44.9 Hypoxia R09.02 TORRIE (obstructive sleep apnea) G47.[address] Z93.2 Hypothyroidism E03.9 Hypothyroidism type: acquired S/P MVR (mitral valve repair) Z98.890 History of DVT (deep vein thrombosis) Z86.718 Atrial fibrillation I48.0 Atrial fibrillation type: paroxysmal Chills R68.83 Elevated troponin R77.8 End stage renal disease on dialysis N18.6; Z99.2 CAD (coronary artery disease) I25.10 Associated angina: without angina Coronary Disease-Associated Artery/Lesion type: [place] artery [place] vs. transplanted heart: [place] heart Hydroureteronephrosis N13.30 Sore throat J02.9 Peripheral vascular disease I73.9 Depression F32.9 DVT prophylaxis Z29.9
== END 2021-04-13 17:01 | disposition home health service (06) | DRG 551 ==
LOC: ED 15:24 → 2W 19:49 → SUATTDRO 19:49 → 2W 04-09 01:15

== ENCOUNTER 2021-05-20 07:57 | Inpatient (IN) ==
[2021-05-20] MEDS ORDERED: methylPREDNISolone 125 MG/2 ML VIAL IV STA (08:09)
[2021-05-20] MEDS ORDERED: ALBUTEROL 0.083% NEBU SOLN 3 ML VIAL NEB STA (08:09)
--- NOTE | 2021-05-20 08:20 | Emergency Department Note ---
Impression & Plan COPD (chronic obstructive pulmonary disease), Leukocytosis, Anemia of chronic disease, ESRD on dialysis, CKD (chronic kidney disease) ED Provider Note NAME: RAMA AYERS AGE: 75 SEX: M : 1945 ARRIVES VIA: Ambulance INFORMANT: Patient ED PROVIDER(S): Jake Arevalo DO CHIEF COMPLAINT: Shortness of breath HPI: Patient is a 75-year-old male with a past medical history of COPD, end- stage renal disease chronically on 2 L with a history of a CABG and AAA repair and mitral valve repair who presents the ER for shortness of breath. Shortness of breath has been getting significantly worse since this past Thursday. Chronically on 2 L. EMS picked the patient up and brought him in on 4 L but was not hypoxic. Denies any chest pain. No belly pain, nausea, vomiting, or diarrhea. No dysuria, urgency, or frequency. Denies any new cough or loss of taste or smell. Did get a full course of dialysis last Thursday. Is due today and gets it Thursday, Thursday, and Thursday. Normal output from ostomy. Was recently placed on Doxy and steroids. ROS: See above HPI for pertinent positives & negatives. A total of 10 systems reviewed and were otherwise negative. PAST MEDICAL HISTORY:See Below PAST SURGICAL HISTORY:See Below FAMILY HISTORY:See Below SOCIAL HISTORY:See Below HOME MEDICATIONS:See Below ALLERGIES:See Below VITALS:See Below PHYSICAL EXAMINATION: GENERAL: Sitting up in bed, alert, pursed lip breathing, dyspneic with conversation EYE EXAM: normal conjunctiva. OROPHARYNX: no exudate, no erythema, lips, buccal mucosa, and tongue normal and mucous membranes are moist NECK: supple, no nuchal rigidity, no adenopathy, non-tender LUNGS: Diminished at the bases with mild wheezing. Normal chest wall mechanics HEART: no murmurs, S1 normal and S2 normal ABDOMEN: abdomen soft, non-tender, ostomy in right mid abdomen, normo-active bowel sounds, no masses, no rebound or guarding. UPPER EXTREMITIES: upper extremities are grossly normal. LOWER EXTREMITIES: No pitting edema. NEURO EXAM: Normal sensorium, cranial nerves II-XII grossly intact, normal speech, no gross weakness of arms, no gross weakness of legs. MEDICAL DECISION MAKING: Patient is a 75-year-old male who presents ER for shortness of breath. Recently placed on steroids and doxycycline due to worsening symptoms. IV was established blood work was obtained. Pursed lip breathing upon presentation. Labs show leukocytosis of 13,000. Do favor secondary to the steroids. Mild anemia 11.2. D-dimer was elevated. BMP with a slightly elevated potassium of 5.2 and a sodium 131. Creatinine at 9.9. Is due for dialysis today. Troponin slightly elevated 0.063 which is fairly consistent with previous. LFTs bilirubin was unremarkable. TSH was unremarkable. Covid was negative. Chest x-ray with no significant change from previous with some vascular congestion and venous Dopplers were negative as were unable to pull her arm CT angio due to poor access. Triage Nursing notes reviewed. Limited review of prior medical records performed Vital Signs: reviewed and remarkable for no significant abnormalities Differential diagnosis: Differential diagnoses includes but is not limited to pneumonia, bronchitis, COPD/Asthma exacerbation, pneumothorax, pulmonary embolism, congestive heart failure, acute coronary syndrome ER treatment provided: See below Diagnostics interpreted by me: ECG: Sinus rhythm rate of [address] depressions in the inferior and lateral leads QTC 444 No significant change from previous performed on the Cardiac Monitoring: An order was placed for continuous cardiac monitoring. The monitor shows a rate of 75 with sinus rhythm. Laboratory studies: As stated above and show below. Imaging studies: Chest x-ray as discussed above Venous Dopplers were unremarkable Consultation(s): Cussed with hospitalist for further evaluation Procedures: none Critical Care: None Past Med/Surg History Medical History AAA (abdominal aortic aneurysm) Acute osteomyelitis of foot Anemia, chronic renal failure AV fistula right arm Chronic back pain Chronic GERD COPD (chronic obstructive pulmonary disease) CVA (cerebral vascular accident) "NO RESIDUAL EFFECTS" PER RECORDS Depression Dermatitis Diastolic CHF DVT (deep venous thrombosis) Elevated troponin Encounter for central line placement GERD (gastroesophageal reflux disease) H/O: gout Hyperkalemia Hyperlipidemia Hypothyroidism Ileostomy in place Ischemic colitis Memory loss or impairment Myocardial infarct, old 2010 Necrosis of colon Orthostatic hypotension Skin ulcers of both feet Valvular disease S/P MVR (2010); ?AVR PER RECORDS Vitamin D deficiency Surgical History Difficult intubation B/L Anteriogram, Right femoral to anterior tibial cadaver vein bypass= 08/06/18= Grade view 4, MAC 3 --> Glidescope #3, ETT 7.5 at [facility] H/O abdominal aortic aneurysm repair 2011 H/O [id number] bypass 2012 H/O mitral valve repair 2010; ?AVR PER RECORDS Hx of CABG S/P CABG X2 (DURING MVR) 2010 S/P AAA repair S/P ablation of atrial fibrillation S/P cholecystectomy S/P femoral-popliteal bypass surgery S/P MVR (mitral valve repair) Family History Mother Essential hypertension Father , age 76 Myocardial infarction Denies family history of Colon cancer Ovarian cancer Prostate cancer Breast cancer Social History Smoking Status: Former smoker Tobacco Type: Cigarettes Years Smoked: 5; Second Hand Exposure: No; Hx Alcohol Use: No Hx Substance Use: No Preferred Language: Korean Communication Ability: Effective Visual Impairment: No Limitations 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: No Beliefs That Will Affect Care: None marital status: / marital status details: 1 daughter Current Living Situation: Family Current Living Situation Comment: sister takes care of patient and patient's mother 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: [employer] Feels Safe at Home: Yes Seatbelt Use: always Assistive Devices: Wheelchair Allergies Allergies Allergy/AdvReac Type Severity Reaction Status Date / Time oxycodone AdvReac Severe DELIRIUM Verified 05/20/21 09:07 tramadol AdvReac Severe dizziness;a Verified 05/20/21 09:07 nxiety;sob gabapentin AdvReac Intermediate Nausea Verified 05/20/21 09:07 Home Meds Home Medications Medication Instructions Recorded Confirmed calcium acetate(phosphat bind) 667 667 mg PO TIDM 08/23/18 05/20/21 mg capsule docusate sodium 100 mg capsule 100 mg PO HS 05/31/19 05/20/21 aspirin 81 mg tablet,delayed 81 mg PO DAILY 05/01/20 05/20/21 release (Aspirin Low Dose) vitamin B complex and vitamin C 1 mg PO DAILY 05/01/20 05/20/21 no.20-folic acid 1 mg capsule (Triphrocaps) omeprazole 20 mg tablet,delayed 40 mg PO QAM tab 07/19/20 05/20/21 release aluminum-mag hydroxide-simethicone 30 ml PO DIRECTED PRN 04/08/21 05/20/21 200 mg-200 mg-20 mg/5 mL oral susp famotidine 20 mg tablet 20 mg PO [id number] 04/08/21 05/20/21 ipratropium 0.5 mg-albuterol 3 mg 3 ml INHALATION Q4H PRN 04/08/21 05/20/21 (2.5 mg base)/3 mL nebulization soln lidocaine 4 % topical patch 1 patch TOPICAL DAILY PRN 04/08/21 05/20/21 (Aspercreme (lidocaine)) nitroglycerin 0.4 mg sublingual 0.4 mg SUBLINGUAL DIRECTED PRN 04/08/21 05/20/21 tablet (Nitrostat) ropinirole 0.25 mg tablet 0.25 mg PO HS 04/08/21 05/20/21 sennosides 8.6 mg tablet (Senokot) 8.6 mg PO DAILY PRN 04/08/21 05/20/21 Previous Rx's Medication Instructions Recorded atorvastatin 40 mg tablet 40 mg PO HS #90 tab 11/13/20 fluticasone furoate 200 1 inh INHALATION QAM #84 ea 11/23/20 mcg-vilanterol 25 mcg/dose inhalation powder (Breo Ellipta) levothyroxine 88 mcg tablet 88 mcg PO DAILY #90 tab 11/23/20 clopidogrel 75 mg tablet 75 mg PO DAILY #90 tab 12/24/20 amiodarone 200 mg tablet 200 mg PO Q OTHER DAY #14 tab 01/10/21 paroxetine HCl 20 mg tablet 20 mg PO HS #90 tab 01/21/21 tiotropium bromide 18 mcg capsule 1 cap INHALATION QAM #1 inh 03/27/21 with inhalation device (Spiriva with HandiHaler) acetaminophen 325 mg capsule 650 mg PO QID PRN #30 cap 04/13/21 diclofenac sodium 1 % topical gel 2 g TOPICAL QID #100 g 04/13/21 (Voltaren Arthritis Pain) pantoprazole 40 mg tablet,delayed 40 mg PO QAM #30 tab 04/13/21 release temazepam 15 mg capsule 15 mg PO HS PRN #60 cap 04/13/21 pregabalin 75 mg capsule (Lyrica) 75 mg PO QAM #30 cap 05/15/21 doxycycline hyclate 100 mg tablet 100 mg PO BID 7 Days #14 tab 05/17/21 prednisone 20 mg tablet 60 mg PO DAILY 4 Days #12 tab 05/17/21 promethazine 25 mg tablet 25 mg PO Q6H PRN #14 tab 05/17/21 Results & Data (ED) Vital Signs Vital Signs - 24 hr 05/20/21 08:00 05/20/21 08:09 05/20/21 08:20 Temperature 36.5 C Temperature Source Oral Pulse Rate 69 Pulse Rate [Right Finger] 68 Pulse Rate from SpO2 Sensor Pulse Rhythm Regular Pulse Strength Normal Respiratory Rate 28 H 18 Respiratory Effort / Characteristics Pursed Lip Short of Breath Non-Labored Spontaneous Respiratory Depth Shallow Respiratory Pattern Tachypnea Blood Pressure 180/83 H Blood Pressure Mean 115 Blood Pressure Position Sitting Pulse Oximetry 96 96 95 Oxygen Delivery Method Nasal Cannula Nasal Cannula Nasal Cannula Oxygen Flow Rate 2 2 2 Sepsis Recent Fever Within 48 Hours No Sepsis New/Unexplained Change in Mental Status N/A Sepsis Action Taken by Nursing No Action Required Oxygen Flow Rate - Titration 3 Pulse Oximetry Post Tiitration 99 05/20/21 08:30 05/20/21 09:02 05/20/21 09:30 Temperature Temperature Source Pulse Rate 68 69 69 Pulse Rate [Right Finger] Pulse Rate from SpO2 Sensor 69 70 70 Pulse Rhythm Pulse Strength Respiratory Rate 18 22 12 Respiratory Effort / Characteristics Respiratory Depth Respiratory Pattern Blood Pressure 162/89 H Blood Pressure Mean 113 Blood Pressure Position Pulse Oximetry 95 98 100 Oxygen Delivery Method Nasal Cannula Nasal Cannula Nasal Cannula Oxygen Flow Rate 3 3 3 Sepsis Recent Fever Within 48 Hours Sepsis New/Unexplained Change in Mental Status Sepsis Action Taken by Nursing Oxygen Flow Rate - Titration Pulse Oximetry Post Tiitration 05/20/21 10:00 05/20/21 10:30 Temperature Temperature Source Pulse Rate 69 70 Pulse Rate [Right Finger] Pulse Rate from SpO2 Sensor 69 70 Pulse Rhythm Pulse Strength Respiratory Rate 26 H 21 Respiratory Effort / Characteristics Respiratory Depth Respiratory Pattern Blood Pressure Blood Pressure Mean Blood Pressure Position Pulse Oximetry 100 100 Oxygen Delivery Method Nasal Cannula Nasal Cannula Oxygen Flow Rate 3 3 Sepsis Recent Fever Within 48 Hours Sepsis New/Unexplained Change in Mental Status Sepsis Action Taken by Nursing Oxygen Flow Rate - Titration Pulse Oximetry Post Tiitration Laboratory Data Result diagrams: 05/20/21 09:11 05/20/21 09:11 Lab Results 05/20/21 05/20/21 05/20/21 Range/Units 08:55 08:55 09:11 WBC (4.8-10.8) K/uL RBC (4.7-6.1) M/uL Hgb (14.0-18.0) g/dL Hct (42-52) % MCV (80-100) fL MCH (25-34) pg MCHC (32-36) g/dL RDW Std Deviation (36.4-46.3) fL RDW Coeff of Jolanta (11.5-14.5) % Plt Count (130-400) K/uL MPV (7.4-10.4) fL Immature Gran % (Auto) % Neut % (Auto) % Lymph % (Auto) % Peach % (Auto) % Eos % (Auto) % Baso % (Auto) % Neut # (Auto) (1.4-6.5) K/uL Lymph # (Auto) (1.2-3.4) K/uL Peach # (Auto) (0.11-0.59) K/uL Eos # (Auto) (0-0.5) K/uL Baso # (Auto) (0-0.2) K/uL Immature Gran # (Auto) (0.00-0.02) K/uL APTT 23.8 (21.0-31.0) Seconds PTT Ratio 0.9 D-Dimer 3480 H* (0-500) ug/L FEU Sodium (136-145) mmol/L Potassium (3.5-5.1) mmol/L Chloride (98-107) mmol/L Carbon Dioxide (21-32) mmol/L Anion Gap (3-11) BUN (7-18) mg/dl Creatinine (0.6-1.4) mg/dl Est Cr Clr Drug Dosing ml/min Est GFR ( Amer) ml/min Est GFR (Non-Af Amer) ml/min BUN/Creatinine Ratio (10-20) Glucose (70-99) mg/dl Calcium (8.5-10.1) mg/dl Total Bilirubin (0.2-1) mg/dl AST (15-37) U/L ALT (12-78) U/L Alkaline Phosphatase (45-117) U/L Troponin I (0-0.045) ng/ml Total Protein (6.4-8.2) gm/dl Albumin (3.4-5.0) gm/dl Globulin (2.5-4.0) gm/dl Albumin/Globulin Ratio (0.9-2) Lipase (73-393) U/L COVID-19 Eval Order Covid19 at [facility] SARS-CoV-2 (PCR) NEGATIVE (Negative) 05/20/21 05/20/21 Range/Units 09:11 09:11 WBC 13.84 H (4.8-10.8) K/uL RBC 3.49 L (4.7-6.1) M/uL Hgb 11.2 L (14.0-18.0) g/dL Hct 34.3 L (42-52) % MCV 98.3 (80-100) fL MCH 32.1 (25-34) pg MCHC 32.7 (32-36) g/dL RDW Std Deviation 54.4 H (36.4-46.3) fL RDW Coeff of Jolanta 15.2 H (11.5-14.5) % Plt Count 128 L (130-400) K/uL MPV 8.5 (7.4-10.4) fL Immature Gran % (Auto) 0.4 % Neut % (Auto) 84.1 % Lymph % (Auto) 6.3 % Peach % (Auto) 9.2 % Eos % (Auto) 0.0 % Baso % (Auto) 0.0 % Neut # (Auto) 11.64 H (1.4-6.5) K/uL Lymph # (Auto) 0.87 L (1.2-3.4) K/uL Peach # (Auto) 1.28 H (0.11-0.59) K/uL Eos # (Auto) 0.00 (0-0.5) K/uL Baso # (Auto) 0.00 (0-0.2) K/uL Immature Gran # (Auto) 0.05 H (0.00-0.02) K/uL APTT (21.0-31.0) Seconds PTT Ratio D-Dimer (0-500) ug/L FEU Sodium 131 L (136-145) mmol/L Potassium 5.4 H (3.5-5.1) mmol/L Chloride 97 L (98-107) mmol/L Carbon Dioxide 28 (21-32) mmol/L Anion Gap 6.0 (3-11) BUN 50 H (7-18) mg/dl Creatinine 9.91 H* (0.6-1.4) mg/dl Est Cr Clr Drug Dosing 8.5 ml/min Est GFR ( Amer) 5.3 ml/min Est GFR (Non-Af Amer) 4.6 ml/min BUN/Creatinine Ratio 5.1 L (10-20) Glucose 97 (70-99) mg/dl Calcium 10.1 (8.5-10.1) mg/dl Total Bilirubin 0.7 (0.2-1) mg/dl AST 17 (15-37) U/L ALT 21 (12-78) U/L Alkaline Phosphatase 117 (45-117) U/L Troponin I 0.063 H* (0-0.045) ng/ml Total Protein 7.3 (6.4-8.2) gm/dl Albumin 3.7 (3.4-5.0) gm/dl Globulin 3.6 (2.5-4.0) gm/dl Albumin/Globulin Ratio 1.0 (0.9-2) Lipase 143 (73-393) U/L COVID-19 Eval Order SARS-CoV-2 (PCR) (Negative) Administered Medications Discontinued Medications Albuterol (Albuterol 0.083% Nebu Soln 3 Ml Vial) 2.5 mg NEB NOW STA Stop: 05/20/21 08:10 Last Admin: 05/20/21 08:18 Dose: 2.5 mg Documented by: [id number] Ioversol (Optiray 320 125ml) 120 ml IV ONCE ONE Stop: 05/20/21 13:16 Last Admin: 05/20/21 13:15 Dose: 120 ml Documented by: [id number] Methylprednisolone (Methylprednisolone 125 Mg/2 Ml Vial) 60 mg IV NOW STA Stop: 05/20/21 08:10 Last Admin: 05/20/21 09:15 Dose: 60 mg Documented by: [id number] Imaging Data Radiologist's Impression: Chest X-Ray 05/20/21 08:09 XR chest 1V portable HISTORY: Atypical Chest Pain COMPARISON: Chest 05/17/2021. FINDINGS: There are poststernotomy changes and a mitral valve ring again noted. The heart remains enlarged. There is mild congestive change with trace pleural effusions. This is similar to the prior study. A few bibasilar linear densities consistent with subsegmental atelectasis. No pneumothorax. No new focal lung consolidations identified. IMPRESSION: No change in the cardiomegaly, trace bilateral pleural effusions, and mild congestive change. ACT 112: Negative or not required by law. Electronically signed by: Joey Leggett M.D. 05/20/2021 8:56 AM Venous Doppler Study 05/20/21 10:17 BILATERAL LOWER EXTREMITY VENOUS DOPPLER CLINICAL HISTORY: swelling of leg COMPARISON STUDY: Bilateral lower extremity venous Doppler ultrasound April 08, 2021. TECHNIQUE: Sonography of the deep venous system of the bilateral lower extre mities was performed. Compression and augmentation were evaluated. FINDINGS: Exam was compromised by suboptimal penetration. The bilateral common femoral, superficial femoral and popliteal veins were compressible. Augmentation was normal. Vessels were not well visualized. IMPRESSION: Technically difficult exam but no evidence of deep venous thrombus within the bilateral lower extremities. ACT 112: Negative or not required by law. Electronically signed by: Frank Lombardo M.D. 05/20/2021 11:29 AM Discharge Plan Visit Data Chief Complaint: Shortness of Breath/Dyspnea ED Provider: Jake Arevalo Discharge Problem: COPD (chronic obstructive pulmonary disease), Leukocytosis, Anemia of chronic disease, ESRD on dialysis, CKD (chronic kidney disease) Patient Disposition: Admitted As Inpatient Discharge Instructions Interventions: ED Discharge Assessment Last Done: 05/20/21 12:30
--- NOTE | 2021-05-20 08:58 | XRay Report ---
XR chest 1V portable HISTORY: Atypical Chest Pain COMPARISON: Chest 05/17/2021. FINDINGS: There are poststernotomy changes and a mitral valve ring again noted. The heart remains enl arged. There is mild congestive change with trace pleural effusions. This is similar to the prior tom dy. A few bibasilar linear densities consistent with subsegmental atelectasis. No pneumothorax. No ne w focal lung consolidations identified. IMPRESSION: No change in the cardiomegaly, trace bilateral pleural effusions, and mild congestive change. ACT 112: Negative or not required by law. Electronically signed by: Joey Leggett M.D. 05/20/2021 8:56 AM
[2021-05-20 09:20] LABS: Hematocrit (blood only) 34.3 % (42-52); Hemoglobin 11.2 g/dL (14.0-18.0); Immature Granulocytes # (auto) 0.05 K/uL (0.00-0.02); Immature Granulocytes % (auto) 0.4 %; Lymphocytes # (auto) 0.87 K/uL (1.2-3.4); Lymphocytes % (auto) 6.3 %; Mean Corpuscular Hemoglobin 32.1 pg (25-34); Mean Corpuscular Hgb Conc 32.7 g/dL (32-36); Mean Corpuscular Volume 98.3 fL (80-100); Mean Platelet Volume 8.5 fL (7.4-10.4); Monocytes # (auto) 1.28 K/uL (0.11-0.59); Monocytes % (auto) 9.2 %; Neutrophils # (auto) 11.64 K/uL (1.4-6.5); Neutrophils % (auto) 84.1 %; Platelet Count 128 K/uL (130-400); RDW Coefficient of Variation 15.2 % (11.5-14.5); RDW Standard Deviation 54.4 fL (36.4-46.3); Red Blood Count 3.49 M/uL (4.7-6.1); White Blood Count 13.84 K/uL (4.8-10.8)
[2021-05-20 09:32] LABS: Partial Thromboplastin Ratio 0.9; Partial Thromboplastin Time 23.8 Seconds (21.0-31.0)
[2021-05-20 09:37] LABS: D Dimer 3480 ug/L FEU (0-500)
--- NOTE | 2021-05-20 09:38 | Electrocardiogram Report ---
Test Reason : Blood Pressure : / mmHG Vent. Rate : 070 BPM Atrial Rate : 070 BPM P-R Int : 256 ms QRS Dur : 100 ms QT Int : 412 ms P-R-T Axes : 057 063 -12 degrees QTc Int : 444 ms Sinus rhythm with 1st degree A-V block Nonspecific ST and T wave abnormality Inferior leads Abnormal ECG When compared with ECG of 17-MAY-2021 16:44, Inverted T waves have replaced nonspecific T wave abnormality in Inferior leads Nonspecific T wave abnormality no longer evident in Lateral leads Confirmed by Sandip Morris ([id number]) on 05/20/2021 9:37:47 AM Referred By: Confirmed By:Sandip Morris
[2021-05-20 09:56] LABS: Albumin Level 3.7 gm/dl (3.4-5.0); BUN Creatinine Ratio 5.1 (10-20); Bilirubin,Total 0.7 mg/dl (0.2-1); Calcium 10.1 mg/dl (8.5-10.1); Creatinine Clr Calc Pharmacy 8.5 ml/min; Est GFR (African American) 5.3 ml/min; Est GFR (Non-African American) 4.6 ml/min; Globulin 3.6 gm/dl (2.5-4.0); Potassium 5.4 mmol/L (3.5-5.1); Total Protein 7.3 gm/dl (6.4-8.2); Troponin I 0.063 ng/ml (0-0.045)
--- NOTE | 2021-05-20 11:07 | History & Physical Report ---
Date of Service May 20, 2021 Assessment & Plan (1) COPD exacerbation: Plan: Increase in dyspnea, cough, no increase use of inhalers reported by patient or change in sputum production or color - Rule out other infectious causes- WBC 13 - Azithromycin to replace doxycycline with patient history of dysphagia and vomiting, would avoid doxy in this patient - CT of the chest evaluate lung pathology - Prednisone 60mg daily PO - Combivent nebs scheduled q6 hours - Continue BREO/equivalent - Hold Spiriva in conjunction with BREO- with confusion possible side effects of both - If no improvement, consider adding Pulmicort Respules in lieu of Breo/equivalent - ESR, CRP, PCT pending - Influenza swab ordered (2) ESRD on hemodialysis: Plan: Dialysis dependant MWF - Nephrology consulted for inpatient dialysis - follow renal function - follow electrolytes - continue phosphate binders (3) Neck pain: Plan: Chronic, evaluated with CT scan in March that reveals cervical stenosis - continue with tylenol and voltaren gel (4) Pleural effusion: Plan: chronic, follow with dialysis - no need for intervention at this time (5) Occipital headache: Plan: As above, (6) Sleep apnea: Plan: Chronic- was to have sleep study performed as outpatient, not sure this has occured - patient has history of being on CPAP, but appears in his transition back to this area, this fell off - Case management consulted for assistance with follow up - This may be playing a role in his chronic fatigue and dyspnea as well (7) Diastolic heart failure: Plan: Follow clinically with dialysis- no disease modifying agents - consider getting ECHO while in house to evaluate heart function and dyspnea (8) Ileostomy in place: Plan: Chronic and functional, no acute issues (9) Anemia, chronic renal failure: Plan: Likely related to ESRD - MCV 98 will add b12 and folate levels (10) Hypothyroidism: Plan: Continue Synthroid -TSH pending (11) CAD (coronary artery disease): Plan: Continue statin, continue ASA and Plavix - Troponin mild elevation with non-specific t wave changes, trend out ECG and troponin levels - Don't expect to be normal with ESRD, however follow clinically with demand (12) Hyperlipidemia: Plan: As above (13) Peripheral vascular disease: Plan: Chronic, duplex scans ordered evaluate for clot (14) CVA (cerebral vascular accident): Plan: Residual effects not found- however likely has componenet of vascular dementia - continue asa and plavix as above (15) GERD (gastroesophageal reflux disease): Plan: Continue muti-modal PPI and H2 - Diet minced and moist - continue anti-emetics as needed (16) H/O abdominal aortic aneurysm repair: Plan: No acute need continue asa and Plavix as above, BP acceptable most of the times (17) AV fistula: Plan: Good thrill and good bruit - per nephrology (18) Atrial fibrillation: Plan: Paroxysmal - continue amiodarone History of Present Illness Primary Care Provider: Eiml Lazcano MD 75 YOM with past medical history of PAD, PVD, CAD, S/p CABG and MVR, CKD on dialysis, Afib(paroxsysmal, not on chronic anticoagulation, ablation, AAA repair, Hx DVT, COPD, TORRIE (not on home CPAP), Cervical stenosis, chronic GERD, 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 Patient comes to the emergency room today for multiple complaints which he has a difficult time detailing or recalling. He is a very poor historian with a poor memory. I attempted to call his sister who he lives with for clarification of his complaints and symptoms, but no answer. In short the patient completed dialysis on Thursday where he says he was unable to complete getting on the scale at the end and came to the Emergency room for complaints of dyspnea and fatigue. He had CXR done as well as CT scan of the head without contrast, and Ct of the abdomen without contrast. No acute processes were identified and the patient was to discharged with COPD exacerbation and prescribed oral prednisone and oral doxycycline. These medicat ions the patient say he did not shredder picker or start yet. He comes in today for the same symptoms and did not go to dialysis today. The patient remains on his home oxygen of 2LNC with adequate SPo2 while resting, however was noted with tachypnea on arrival. CXR reviewed today consistent with mild volume overload and chronic small pleural effusions. Patient is having Bilateral lower extremity Doppler performed for his elevated D-dimer, dyspnea, ordered by EMD to evaluate for DVT. Patient will be admitted to monitor his symptoms, further investigate his pulmonary process and rule out infectious etiology, will obtain CTA of the chest as patient will be getting dialysis likely today. Nephrology has been consulted and patient receives dialysis MWF. Telemetry for 24 hours follow ECG and troponin. Allergies Allergy/AdvReac Type Severity Reaction Status Date / Time oxycodone AdvReac Severe DELIRIUM Verified 05/20/21 09:07 tramadol AdvReac Severe dizziness;a Verified 05/20/21 09:07 nxiety;sob gabapentin AdvReac Intermediate Nausea Verified 05/20/21 09:07 Home Medications Medication Instructions Recorded Confirmed Type calcium acetate(phosphat bind) 667 667 mg PO TIDM 08/23/18 05/20/21 History mg capsule docusate sodium 100 mg capsule 100 mg PO HS 05/31/19 05/20/21 History aspirin 81 mg tablet,delayed 81 mg PO DAILY 05/01/20 05/20/21 History release (Aspirin Low Dose) vitamin B complex and vitamin C 1 mg PO DAILY 05/01/20 05/20/21 History no.20-folic acid 1 mg capsule (Triphrocaps) omeprazole 20 mg tablet,delayed 40 mg PO QAM tab 07/19/20 05/20/21 History release atorvastatin 40 mg tablet 40 mg PO HS #90 tab 11/13/20 05/20/21 Rx fluticasone furoate 200 1 inh INHALATION QAM #84 ea 11/23/20 05/20/21 Rx mcg-vilanterol 25 mcg/dose inhalation powder (Breo Ellipta) levothyroxine 88 mcg tablet 88 mcg PO DAILY #90 tab 11/23/20 05/20/21 Rx clopidogrel 75 mg tablet 75 mg PO DAILY #90 tab 12/24/20 05/20/21 Rx amiodarone 200 mg tablet 200 mg PO Q OTHER DAY #14 tab 01/10/21 05/20/21 Rx paroxetine HCl 20 mg tablet 20 mg PO HS #90 tab 01/21/21 05/20/21 Rx tiotropium bromide 18 mcg capsule 1 cap INHALATION QAM #1 inh 03/27/21 05/20/21 Rx with inhalation device (Spiriva with HandiHaler) aluminum-mag hydroxide-simethicone 30 ml PO DIRECTED PRN 04/08/21 05/20/21 History 200 mg-200 mg-20 mg/5 mL oral susp famotidine 20 mg tablet 20 mg PO 3XWK 04/08/21 05/20/21 History ipratropium 0.5 mg-albuterol 3 mg 3 ml INHALATION Q4H PRN 04/08/21 05/20/21 History (2.5 mg base)/3 mL nebulization soln lidocaine 4 % topical patch 1 patch TOPICAL DAILY PRN 04/08/21 05/20/21 History (Aspercreme (lidocaine)) nitroglycerin 0.4 mg sublingual 0.4 mg SUBLINGUAL DIRECTED PRN 04/08/21 05/20/21 History tablet (Nitrostat) ropinirole 0.25 mg tablet 0.25 mg PO HS 04/08/21 05/20/21 History sennosides 8.6 mg tablet (Senokot) 8.6 mg PO DAILY PRN 04/08/21 05/20/21 History acetaminophen 325 mg capsule 650 mg PO QID PRN #30 cap 04/13/21 05/20/21 Rx diclofenac sodium 1 % topical gel 2 g TOPICAL QID #100 g 04/13/21 05/20/21 Rx (Voltaren Arthritis Pain) pantoprazole 40 mg tablet,delayed 40 mg PO QAM #30 tab 04/13/21 05/20/21 Rx release temazepam 15 mg capsule 15 mg PO HS PRN #60 cap 04/13/21 05/20/21 Rx pregabalin 75 mg capsule (Lyrica) 75 mg PO QAM #30 cap 05/15/21 05/20/21 Rx doxycycline hyclate 100 mg tablet 100 mg PO BID 7 Days #14 tab 05/17/21 05/20/21 Rx prednisone 20 mg tablet 60 mg PO DAILY 4 Days #12 tab 05/17/21 05/20/21 Rx promethazine 25 mg tablet 25 mg PO Q6H PRN #14 tab 05/17/21 05/20/21 Rx Past Med/Surg History Medical History AAA (abdominal aortic aneurysm) Acute osteomyelitis of foot Anemia, chronic renal failure AV fistula right arm Chronic back pain Chronic GERD COPD (chronic obstructive pulmonary disease) CVA (cerebral vascular accident) "NO RESIDUAL EFFECTS" PER RECORDS Depression Dermatitis Diastolic CHF DVT (deep venous thrombosis) Elevated troponin Encounter for central line placement GERD (gastroesophageal reflux disease) H/O: gout Hyperkalemia Hyperlipidemia Hypothyroidism Ileostomy in place Ischemic colitis Memory loss or impairment Myocardial infarct, old 2011 Necrosis of colon Orthostatic hypotension Skin ulcers of both feet Valvular disease S/P MVR (2010); ?AVR PER RECORDS Vitamin D deficiency Surgical History Difficult intubation B/L Anteriogram, Right femoral to anterior tibial cadaver vein bypass= 08/06/18= Grade view 4, MAC 3 --> Glidescope #3, ETT [address] [facility] H/O abdominal aortic aneurysm repair 2011 H/O yrglv-thswp-[id number] bypass 2012 H/O mitral valve repair 2010; ?AVR PER RECORDS Hx of CABG S/P CABG X2 (DURING MVR) 2010 S/P AAA repair S/P ablation of atrial fibrillation S/P cholecystectomy S/P femoral-popliteal bypass surgery S/P MVR (mitral valve repair) Family History Mother Essential hypertension Father , age 76 Myocardial infarction Denies family history of Colon cancer Ovarian cancer Prostate cancer Breast cancer Social History Smoking Status: Former smoker Tobacco Type: Cigarettes Years Smoked: 5; Second Hand Exposure: No; Hx Alcohol Use: No Hx Substance Use: No Preferred Language: Malawian Communication Ability: Effective Visual Impairment: No Limitations Television Specialist Required: No Beliefs That Will Affect Care: None marital status: / marital status details: 1 daughter Current Living Situation: Family Current Living Situation Comment: sister takes care of patient and patient's mother 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 at Home: Yes Safety Concerns: Feels Safe At This Time Seatbelt Use: always Assistive Devices: Oxygen - at Night Review of Systems Review of Systems: REVIEW OF SYSTEMS: Constitutional: No fever, sweats or chills Eyes: No diplopia, no worsening or blurred vision ENT: normal hearing, no trouble swallowing Respiratory: (+) cough, sputum, dyspnea at rest or on exertion, no change in sputum color Cardiovascular: No chest pain, tightness or palpitations Abdomen: (+) ostomy, No pain, nausea, vomiting, diarrhea or constipation Musculoskeletal: (+) neck, shoulder joint pain, calf pain, swelling Neurologic: No weakness, numbness/tingling, or balance problems Psychiatric: (+) confusion, poor memory, depression, No anxiety Skin: (+) venous ulcerations, bruise to right rib, No rash or itch Physical Exam Physical Exam: PHYSICAL EXAM: General: awake, alert, no apparent distress, but easily confused and poor ability with recall Head: Normocephalic, atraumatic ENT: PERRL, EOMI, no pharyngeal exudate, mucous membranes dry Neuro: AAO x 3, speech clear and appropriate, strength intact bilaterally 5/5, sensation intact and equal all extremities and dermatomes, no pronator drift, slow coordination Chest: old bruise to right axial chest, equal rise and fall of the chest, pursed lip breathing, prolonged expiratory phase, scattered crackles, bilateral expiratory wheeze decrease air movement in the bases, on 2LNC Cardiac: good thrill and bruit to right bicep hemodialysis graft Regular rate and rhythm, telemetry reviewed- NSR, skin warm dry, cap refill 3 seconds, peripheral pulses +2 no JVD, no murmur, +2 edema to lower extremities bilaterally with right leg > left leg GI: NABS x 4 quadrants, soft, nontender to palpation, no rebound, guarding or tenderness : dialysis dependant, no pain, no CVA tenderness, Extremities: bilateral lower extremity venous discolorations, right SVG scar, old healing scrapes and brusing, bruising to hands Psych: as above Skin: as above Results & Data Results & Data ([facility]) Vital Signs (Past 12 Hours) Vital Signs Temp Pulse Pulse Resp BP Pulse Ox 05/20/21 08:20 68 18 95 05/20/21 08:09 96 05/20/21 08:00 36.5 C 69 28 H 180/83 H 96 Laboratory Results Abnormal Labs 05/20/21 05/20/21 05/20/21 09:11 09:11 09:11 WBC 13.84 H RBC 3.49 L Hgb 11.2 L Hct 34.3 L RDW Std Deviation 54.4 H RDW Coeff of Jolanta 15.2 H Plt Count 128 L Neut # (Auto) 11.64 H Lymph # (Auto) 0.87 L Gosper # (Auto) 1.28 H Immature Gran # (Auto) 0.05 H D-Dimer 3480 H* Sodium 131 L Potassium 5.4 H Chloride 97 L BUN 50 H Creatinine 9.91 H* BUN/Creatinine Ratio 5.1 L Troponin I 0.063 H* Diagnostic Findings Chest X-Ray 05/20/21 08:09 XR chest 1V portable HISTORY: Atypical Chest Pain COMPARISON: Chest 05/17/2021. FINDINGS: There are poststernotomy changes and a mitral valve ring again noted. The heart remains enlarged. There is mild congestive change with trace pleural effusions. This is similar to the prior study. A few bibasilar linear densities consistent with subsegmental atelectasis. No pneumothorax. No new focal lung consolidations identified. IMPRESSION: No change in the cardiomegaly, trace bilateral pleural effusions, and mild congestive change. Electronically signed by: Joey Leggett M.D. 05/20/2021 8:56 AM Medications Administered Discontinued Medications Albuterol (Albuterol 0.083% Nebu Soln 3 Ml Vial) 2.5 mg NEB NOW STA Stop: 05/20/21 08:10 Last Admin: 05/20/21 08:18 Dose: 2.5 mg Documented by: [id number] Methylprednisolone (Methylprednisolone 125 Mg/2 Ml Vial) 60 mg IV NOW STA Stop: 05/20/21 08:10 Last Admin: 05/20/21 09:15 Dose: 60 mg Documented by: [id number] ECG Additional Comments: Sinus rhythm with 1st degree A-V block Nonspecific ST and T wave abnormality Inferior leads Abnormal ECG When compared with ECG of 17-MAY-2021 16:44, Inverted T waves have replaced nonspecific T wave abnormality in Inferior leads Nonspecific T wave abnormality no longer evident in Lateral leads Code Status & VTE Plan Code Status CODE: FULL VTE: SCD's, Heparin Supervising Physician Co-Signing Physician Notes Patient was seen and examined independently I discussed the case with Marlon MORILLO I reviewed pertinent past medical social family history and also the plan of care and agree with the plan of care. Patient presented with shortness of breath on the day of his dialysis. Is thus dialysis session may not have been completed due to planes of dizziness lightheadedness. Patient likely has some breathlessness mild leukocytosis and is being brought in for acute on chronic respiratory failure with possible COPD exacerbation. Patient is given daily prednisone therapy and he did have a CT of the chest however without contrast on presentation we may consider pursuing CT scan with contrast if his breathlessness persist for thromboembolic phenomena precipitating his COPD worsening Patient was seen in the dialysis unit states he just does not feel right I decreased physical stamina with the with weakness of arms and legs. He relates to making some urine although bloody which he usually does not do. Relates to being breathless over the last few days when walking around his home His lungs however during time of dialysis were reasonable without overt wheezes although poor air movement and prolonged and expiratory phase Cardiac exam sounded to be regular without murmurs We will treat COPD exacerbation with steroids azithromycin and follow-up for infectious causes to perhaps precipitated his weakness on a metabolic encephalopathy from this would include urinary tract infection and dialysis related infection Any exceptions will be noted below PG Care Time/CCT Total # of Minutes Spent Total Time Spent with Patient: Total time spent is greater than 50% in coordination of care (as documented) at patient's floor/unit and/or counseling patient: Coding Level of Care Code 05240 Initial Inpt Care Lvl 3 Diagnoses COPD exacerbation J44.1 ESRD on hemodialysis N18.6; Z99.2 Neck pain M54.2 Pleural effusion J90 Occipital headache R51.9 Sleep apnea G47.30 Diastolic heart failure I50.[address] Z93.2 Anemia, chronic renal failure N18.9; D63.1 Chronic kidney disease stage: unspecified stage Hypothyroidism E03.9 Hypothyroidism type: acquired CAD (coronary artery disease) I25.10 Associated angina: without angina Coronary Disease-Associated Artery/Lesion type: platinum artery [place] vs. transplanted heart: platinum heart Hyperlipidemia E78.5 Peripheral vascular disease I73.9 CVA (cerebral vascular accident) I63.9 GERD (gastroesophageal reflux disease) K21.9 H/O abdominal aortic aneurysm repair Z98.890 AV fistula I77.0 Atrial fibrillation I48.0 Atrial fibrillation type: paroxysmal (1) Anemia, chronic renal failure Chronic kidney disease stage: unspecified stage Qualified Code(s): N18.9 - Chronic kidney disease, unspecified; D63.1 - Anemia in chronic kidney disease (2) CAD (coronary artery disease) Associated angina: without angina Coronary Disease-Associated Artery/Lesion type: platinum artery [place] vs. transplanted heart: platinum heart Qualified Code(s): I25.10 - Atherosclerotic heart disease of platinum coronary artery without angina pectoris (3) Atrial fibrillation Atrial fibrillation type: paroxysmal Qualified Code(s): I48.0 - Paroxysmal atrial fibrillation (4) Hypothyroidism Hypothyroidism type: acquired Qualified Code(s): E03.9 - Hypothyroidism, unspecified
--- NOTE | 2021-05-20 11:31 | Ultrasound Report ---
BILATERAL LOWER EXTREMITY VENOUS DOPPLER CLINICAL HISTORY: swelling of leg COMPARISON STUDY: Bilateral lower extremity venous Doppler ultrasound April 08, 2021. TECHNIQUE: Sonography of the deep venous system of the bilateral lower extremities was performed. Co mpression and augmentation were evaluated. FINDINGS: Exam was compromised by suboptimal penetration. The bilateral common femoral, superficial f emoral and popliteal veins were compressible. Augmentation was normal. Vessels were not well visualized. IMPRESSION: Technically difficult exam but no evidence of deep venous thrombus within the bilateral l ower extremities. ACT 112: Negative or not required by law. Electronically signed by: Frank Lombardo M.D. 05/20/2021 11:29 AM
[2021-05-20 12:40] LABS: C Reactive Protein 0.91 mg/dl (0-0.29); Thyroid Stimulating Hormone 1.03 uIu/ml (0.300-4.500)
[2021-05-20] MEDS ORDERED: OPTIRAY 320 125ml IV ONE (13:15)
[2021-05-20 13:23] LABS: Influenza A virus by PCR Negative (Negative); Influenza B virus by PCR Negative (Negative)
[2021-05-20] MEDS ORDERED: HEPARIN SOD (PORCINE) 1000 UNIT/ML IV ONE (13:34)
[2021-05-20] MEDS ORDERED: SODIUM CHLORIDE 0.9% 1000ML 1,000 ML IV PRN (13:34)
[2021-05-20] MEDS ORDERED: AZITHROMYCIN 250 MG TAB PO ONE (13:57)
[2021-05-20] MEDS ORDERED: ACETAMINOPHEN 325 MG TAB PO PRN ×2 (13:57→14:10)
[2021-05-20] MEDS ORDERED: SENNA 8.6 MG TAB PO PRN (13:57)
[2021-05-20] MEDS ORDERED: NITROGLYCERIN SL 0.4 MG/TAB TAB SL PRN (13:57)
[2021-05-20] MEDS ORDERED: EPOETIN ALFA 4,000 UNIT/ML VIAL IV ONE (14:00)
[2021-05-20] MEDS ORDERED: ALUMINUM/MAGNESIUM/SIMETH (MAALOX MAX) 30 ML UDC PO PRN (14:10)
[2021-05-20 14:36] LABS: Folate (Folic Acid) > 20.00 ng/ml (>5.38); Vitamin B12 777 pg/ml (193-986)
[2021-05-20] MEDS: ALBUT/IPRATROP 3MG/0.5MG NEB 3 ML VIAL INH SCH ×2 (15:03→19:35)
[2021-05-20] MEDS: HEPARIN SOD (PORCINE) 1000 UNIT/ML IV SCH ×3 (16:15→17:03)
[2021-05-20] MEDS: CALCIUM ACETATE 667 MG CAP/TAB PO SCH ×2 (18:18→18:30)
[2021-05-20] MEDS: DICLOFENAC SOD 1% GEL 100 GM TUBE EXT SCH ×3 (18:19→21:35)
[2021-05-20] MEDS: FLUTICASONE/VILANTEROL 200/25MCG 14 PUFFS/INHALER INH SCH (18:19)
[2021-05-20] MEDS: HEPARIN SOD 5,000 UNIT/0.5 ML VIAL SQ SCH ×2 (18:49→21:35)
[2021-05-20] MEDS: DOCUSATE SODIUM 100 MG CAP PO SCH (21:35)
[2021-05-20] MEDS: PARoxetine HCL 20 MG TAB PO SCH (21:35)
[2021-05-20] MEDS: ATORVASTATIN 40 MG TAB PO SCH (21:35)
[2021-05-20] MEDS: rOPINIRole HCL 0.25 MG TABLET PO SCH (21:35)
[2021-05-21] MEDS: ALBUT/IPRATROP 3MG/0.5MG NEB 3 ML VIAL INH SCH ×4 (00:39→19:43)
[2021-05-21] MEDS: HEPARIN SOD 5,000 UNIT/0.5 ML VIAL SQ SCH ×3 (06:02→21:54)
[2021-05-21] MEDS: LEVOTHYROXINE SODIUM 88 MCG TABLET PO SCH (06:02)
[2021-05-21] MEDS: CALCIUM ACETATE 667 MG CAP/TAB PO SCH ×3 (08:13→17:19)
[2021-05-21] MEDS: CLOPIDOGREL BISULFATE 75 MG TAB PO SCH (08:13)
[2021-05-21] MEDS: FLUTICASONE/VILANTEROL 200/25MCG 14 PUFFS/INHALER INH SCH (08:13)
[2021-05-21] MEDS: AZITHROMYCIN 250 MG TAB PO SCH (08:14)
[2021-05-21] MEDS: PANTOprazole 40 MG TAB PO SCH (08:14)
[2021-05-21] MEDS: DICLOFENAC SOD 1% GEL 100 GM TUBE EXT SCH ×4 (08:15→20:06)
[2021-05-21] MEDS: NEPHROCAPS PO SCH (08:15)
[2021-05-21] MEDS: PREGABALIN 75 MG CAP PO SCH (08:19)
--- NOTE | 2021-05-21 08:32 | CT Scan Report ---
CT chest diagnostic wo con CLINICAL HISTORY: evaluate pulmonary disease COMPARISON STUDY: October 19, 2019 CT DOSE: 997.39 mGy.cm TECHNIQUE: CT of the thorax was performed from the thoracic inlet to the lung bases. Images are revi ewed in the axial, sagittal, and coronal planes. IV contrast was not administered for this examinatio n. A dose lowering technique was utilized adhering to the principles of ALARA. FINDINGS: There is no axillary, supra clavicle or internal mammary lymphadenopathy seen. Mediastinal lymph nodes are not enlarged. Thyroid: Visualized portion of thyroid gland shows no evidence of focal lesions. Esophagus is dilated with air-fluid level within its superior aspect (esophageal dilatation was seen on prior). Minimal f at containing hiatal hernia is seen. Thoracic aorta: Proximal aspect of thoracic aorta is slightly dilated measuring 4.6 cm in diameter, u nchanged since prior study in 2019. Pulmonary artery remains dilated with diameter measured 3.8 cm wh ich could be seen in pulmonary hypertension. Dilatation of pulmonary artery was also seen on prior st udy. Heart: Mild four-chamber cardiomegaly. Mitral ring is seen. Extensive coronary calcifications and pos sible stents. Status post post CABG. Lungs and pleural spaces: Tracheobronchial tree is patent. Small amount of mucus is seen within trachea. Small right pleural effusion/pleural thickening as well as pleural calcifications on the right is aga in seen. Small atelectasis at dependent portions of bilateral lower lobes are seen, right more than l eft. Redemonstration of scarring within left lower lobe which was also visualized during prior exam. -Interval development of 6 mm nodule within the right upper lobe (series 4 image 84) -Punctate micronodular subpleural aspect of the right upper lobe is unchanged since prior study in 20 19 (/82) Upper abdomen: Partially visualized upper abdominal viscera shows no evidence of acute abnormalities . Skeletal structures: Osteopenia. Multilevel degenerative changes of the spine and anterior syndesmoph ytes. Sternotomy changes. IMPRESSION: 1. Dilated esophagus. Stable opacities/scarring within left lower lobe and mild interval worsening o f atelectasis at dependent portion of the right lower lobe are seen and might represent sequela from prior inflammatory process or aspiration. 2. Pleural calcifications on the right. 3. Stable minimal dilatation of ascending aorta. Dilated pulmonary artery is again seen which could be seen in pulmonary hypertension. 4. Interval development of 6 mm pulmonary nodule within the right upper lobe which was not seen on p rior study in 2019. Follow-up evaluation in 3-6 months is recommended per Fleischner Society guidelin es. Please refer to below summary of Fleischner criteria recommendations for follow-up of incidental CT n odules (Stuart Liriano, Guidelines for management of small pulmonary nodules detected on CT scans: A layla wolff from the Fleischner Society, Radiology 237: [phone].) SOLID NODULES Solitary nodule size: <6 mm * low risk patients: no follow-up needed * high risk patients: optional CT at 12 months Solitary nodule size: 6-8 mm * low risk patients: follow-up at 6-12 months, then consider further follow-up at 18-24 months * high risk patients: initial follow-up CT at 6-12 months and then at 18-24 months if no change Solitary nodule size: >8 mm * either low or high risk patients - consider follow-up CT at 3 months, and/or CT-PET, and/or biopsy Multiple nodules size: <6 mm * low risk patients: no routine follow-up * high risk patients: optional CT at 12 months Multiple nodules size: 6-8 mm * low risk patients: follow-up at 3-6 months, then consider further follow-up at 18-24 months * high risk patients: follow-up at 3-6 months, then at 18-24 months if no change Multiple nodules size: >8 mm * low risk patients: follow-up at 3-6 months, then consider further follow-up at 18-24 months * high risk patients: follow-up at 3-6 months, then at 18-24 months if no change Note: newly detected indeterminate nodule in persons 35 years of age or older. * low risk patients: minimal or absent history of smoking and/or other known risk factors * high risk patients: history of smoking or of other known risk factors (e.g. first degree relative with lung cancer, or exposure to asbestos, radon, uranium) * if a nodule up to 8 mm is partly solid or is ground glass further follow-up is required after 24 m onths to exclude possible slow growing adenocarcinoma (GRECIA) SUBSOLID NODULES Solitary pure ground-glass nodule * nodule size <6 mm - no CT follow-up required * nodule size >=6 mm - follow-up CT at 6-12 months, then every 2 years until 5 years Solitary part-solid nodule * nodule size <6 mm - no CT follow-up required * nodule size >=6 mm - follow-up CT at 3-6 months. If unchanged, and solid component remains <6 mm, then annual follow-up for 5 years Multiple subsolid nodules * nodule size <6 mm - follow-up CT at 3-6 months, consider further follow-up at 2 and 4 years if sta ble * nodule size >=6 mm - follow-up CT at 3-6 months, subsequent management based on the most suspiciou s nodule(s) ACT 112: Positive. There are findings on this exam that require communication between the performing entity and the patient following Patient Test Result Information Act ([place] Act 112) guidelines. The above report was generated using voice recognition software. It may contain grammatical, syntax o r spelling errors. Electronically signed by: Sheyla Kaur DO 05/21/2021 8:30 AM
[2021-05-21] MEDS: AMIODARONE 200 MG TAB PO SCH (08:36)
[2021-05-21] MEDS: ASPIRIN 81 MG ECTAB PO SCH (08:36)
[2021-05-21] MEDS ORDERED: predniSONE 20 MG TAB PO SCH (09:00)
--- NOTE | 2021-05-21 13:26 | Consultation Report ---
NEPHROLOGY CONSULTATION DATE OF CONSULTATION: 05/21/2021 REASON FOR CONSULT: Dialysis patient admitted with shortness of breath. HISTORY OF PRESENT ILLNESS: The patient is a 75-year-old male with extensive medical problems includ ing end-stage renal disease, on chronic hemodialysis Thursday, Thursday, Thursday as well as severe unde rlying lung disease with COPD as well as restrictive lung disease, obstructive sleep apnea and multip le cardiac problems, admitted to the hospital yesterday when he presented with increasing shortness o f breath and cough. He was also reporting increasing use of inhalers as well as some change in the s putum production and color. It is worth noting that the patient chronically has significant baseline shortness of breath that does not really seem to be related with pulmonary congestion as such, as he does not get much benefit even with dialysis. In any case, yesterday was his dialysis day and he di d get dialysis in the hospital yesterday evening without any problem. He is compliant with dialysis. He actually came to the hospital a few days ago because of the same problem. He has had CT scan of his chest done without any obvious etiology found. At this time, he is being treated with COPD exac erbation with prednisone and antibiotics. ALLERGIES: ALLERGY LIST IS REVIEWED. MEDICATIONS: Home medication list is extensive and is reviewed in detail and is as per reconciliatio n list. PAST MEDICAL AND SURGICAL HISTORY: Abdominal aortic aneurysm, acute osteomyelitis of foot, anemia of ESRD, AV fistula in the right arm, chronic back pain, chronic GERD, severe COPD, history of CVA, dep ression, dermatitis, diastolic congestive heart failure, history of DVT, ileostomy in place, history of ischemic colitis, coronary artery disease, status post CA and mitral valve repair, status post CAB G x2, status post AAA repair, status post ablation of atrial fibrillation, cholecystectomy, fem-pop b ypass surgery, mitral valve repair. FAMILY HISTORY: Negative for renal disease or dialysis. SOCIAL HISTORY: Former smoker. No alcohol or smoking at this time. He is currently living with his sister. He is retired. He uses oxygen at night. REVIEW OF SYSTEMS: Hard to obtain as the patient was quite short of breath. Positive review of syst ems included increasing shortness of breath compared to his baseline status as well as increased coug h and increased use of inhalers. He denies any fever, chest pain, headache, nausea, vomiting, diarrh ea or other complaints. Twelve systems are reviewed and negative. PHYSICAL EXAMINATION: GENERAL: Elderly white male who appears to be chronically ill with multiple medical problems. He is awake and alert. He does have significant respiratory distress and use of respiratory muscles. It was hard to sustain a conversation with him. VITAL SIGNS: Blood pressure is 159/80, pulse rate 72, temperature 36.9, and 97% on 2 liters nasal ca nnula. HEENT: Normocephalic, atraumatic. Mucous membrane is moist. NECK: Supple. No jugular venous distention. CHEST: Bilaterally decreased breath sounds, prolonged expiratory phase, scattered crackles and wheez ing. CARDIAC: Regular rate and rhythm. Soft systolic murmur heard. He does have chronic edema with sign s of chronic venous stasis as well as ulcers. ABDOMEN: Soft, nontender. EXTREMITIES: Show bilateral lower extremity venous discoloration from severe peripheral vascular dis ease and chronic edema in the past. LABORATORIES: Laboratory test was reviewed in detail. There are no labs from this morning. Blood wo rk from yesterday admission showed sodium 131, potassium 5.4, BUN 50, creatinine 9.91. Troponin is p ositive mildly. C-reactive protein high. Hemoglobin 11.2. ASSESSMENT AND PLAN: A 75-year-old male with extensive and severe cardiac and pulmonary disease with end-stage renal disease, on chronic hemodialysis Thursday, Thursday, Thursday, admitted with increasing shortness of breath. I have been consulted for dialysis management. 1. End-stage renal disease: He did have dialysis yesterday without any complications as per his [facility] schedule. If he is still in the hospital tomorrow, he will get dialysis again. Orders have bee n written for that. It does not appear shortness of breath is related with fluid overload as such, bu t predominantly related with chronic obstructive pulmonary disease and pulmonary issues. 2. Shortness of breath: As stated earlier, this is predominantly pulmonary in etiology. Attempts of more aggressive fluid removal in dialysis in the past had not relieved his symptoms. He is being tr eated by the primary team with steroid and antibiotics. Continue the same. Job ID: [id number]
[2021-05-21] MEDS: PREGABALIN 25 MG CAP PO SCH ×2 (13:56→20:05)
--- NOTE | 2021-05-21 19:21 | Electrocardiogram Report ---
Test Reason : Blood Pressure : / mmHG Vent. Rate : 072 BPM Atrial Rate : 072 BPM P-R Int : 258 ms QRS Dur : 114 ms QT Int : 442 ms P-R-T Axes : 050 060 011 degrees QTc Int : 483 ms Sinus rhythm with 1st degree A-V block with occasional Premature ventricular complexes Prolonged QT Abnormal ECG When compared with ECG of 20-MAY-2021 08:00, Premature ventricular complexes are now Present Otherwise no significant change Confirmed by Sandip Morris ([id number]) on 05/21/2021 7:21:26 PM Referred By: REFERRED SELF Confirmed By:Sandip Morris
[2021-05-21] MEDS: rOPINIRole HCL 0.25 MG TABLET PO SCH (20:02)
[2021-05-21] MEDS: ATORVASTATIN 40 MG TAB PO SCH (20:03)
[2021-05-21] MEDS: PARoxetine HCL 20 MG TAB PO SCH (20:03)
[2021-05-21] MEDS: DOCUSATE SODIUM 100 MG CAP PO SCH (20:05)
[2021-05-22] MEDS: ALBUT/IPRATROP 3MG/0.5MG NEB 3 ML VIAL INH SCH ×4 (00:52→19:30)
[2021-05-22] MEDS: HEPARIN SOD 5,000 UNIT/0.5 ML VIAL SQ SCH ×3 (05:38→20:48)
[2021-05-22] MEDS: LEVOTHYROXINE SODIUM 88 MCG TABLET PO SCH (05:38)
[2021-05-22] MEDS ORDERED: SODIUM CHLORIDE 0.9% 1000ML 1,000 ML IV PRN (07:00)
--- NOTE | 2021-05-22 08:38 | Ultrasound Report ---
US arterial duplex LE LT CLINICAL HISTORY: eval for arterial compromise. Left leg edema and discoloration. COMPARISON STUDY: None. FINDINGS: The right ankle-brachial index measures 0.63. The left ankle-brachial index measured with t he posterior tibial artery was 1.1. This is likely elevated due to the calcified plaque. The left toe brachial index was 0.26. Scattered calcified plaque seen throughout the left lower extremity arteria l system. Biphasic normal velocity waveforms seen within the left common femoral, superficial femoral , and popliteal arteries. Monophasic normal velocity waveforms seen within the left posterior tibial artery. Monophasic low velocity waveforms within the left dorsalis pedis artery of 90 cm/s. Elevated peak systolic velocity within the left peroneal artery with a monophasic waveform of 209 cm/s. Monoph asic low velocity waveforms within the mid to distal left anterior tibial artery. IMPRESSION: 1. No evidence for arterial occlusion within the left lower extremity. 2. Abnormally low left toe brachial index of 0.26. 3. An area of hemodynamically significant stenosis within the left peroneal artery. 4. Additional findings as described above. ACT 112: Negative or not required by law. Electronically signed by: Joey Leggett M.D. 05/22/2021 8:36 AM
[2021-05-22] MEDS ORDERED: FAMOTIDINE 20 MG TAB PO SCH (09:00)
--- NOTE | 2021-05-22 09:51 | Dialysis Progress Note ---
Date of Service May 22, 2021 Assessment & Plan Admission and Anticipated Discharge Date Admission Date: May 20, 2021 Subjective Seen IN dialysis. SO far doing fine. BP and AVF fine. GENERAL: Elderly white male who appears to be chronically ill with multiple medical problems. He is awake and alert. He does have significant respiratory distress and use of respiratory muscles. It was hard to sustain a conversation with him. HEENT: Normocephalic, atraumatic. Mucous membrane is moist. NECK: Supple. No jugular venous distention. CHEST: Bilaterally decreased breath sounds, prolonged expiratory phase, scattered crackles and wheezing. CARDIAC: Regular rate and rhythm. Soft systolic murmur heard. He does have chronic edema with signs of chronic venous stasis as well as ulcers. ABDOMEN: Soft, nontender. EXTREMITIES: Show bilateral lower extremity venous discoloration from severe peripheral vascular disease and chronic edema in the past. LABORATORIES: Laboratory test was reviewed in detail. There are no labs from this morning. Blood work from yesterday admission showed sodium 131, potassium 5.4, BUN 50, creatinine 9.91. Troponin is positive mildly. C-reactive protein high. Hemoglobin 11.2. ASSESSMENT AND PLAN: A 75-year-old male with extensive and severe cardiac and pulmonary disease with end-stage renal disease, on chronic hemodialysis Thursday, Thursday, Thursday, admitted with increasing shortness of breath. I have been consulted for dialysis management. 1. End-stage renal disease: Dialysis today for 3.5 hrs and 2.5 kilo off. 2k bath. It does not appear shortness of breath is related with fluid overload as such, but predominantly related with chronic obstructive pulmonary disease and pulmonary issues. 2. Shortness of breath: As stated earlier, this is predominantly pulmonary in etiology. Attempts of more aggressive fluid removal in dialysis in the past had not relieved his symptoms. He is being treated by the primary team with steroid and antibiotics. Continue the same. Results & Data ([facility]) Vital Signs (Past 12 Hours) Vital Signs Temp Pulse Pulse Pulse Resp BP BP 05/22/21 09:00 68 154/77 H 05/22/21 08:46 70 166/90 H 05/22/21 08:38 36.8 C 59 L 05/22/21 07:01 63 16 05/22/21 06:33 36.7 C 69 20 170/80 H 05/22/21 03:51 36.6 C 65 18 170/79 H 05/22/21 00:55 65 12 05/21/21 23:52 36.8 C 67 18 161/76 H 05/21/21 22:29 67 Pulse Ox 05/22/21 09:00 05/22/21 08:46 05/22/21 08:38 05/22/21 07:01 96 05/22/21 06:33 97 05/22/21 03:51 98 05/22/21 00:55 100 05/21/21 23:52 97 05/21/21 22:29
[2021-05-22] MEDS: DICLOFENAC SOD 1% GEL 100 GM TUBE EXT SCH ×4 (12:25→20:42)
[2021-05-22] MEDS: CALCIUM ACETATE 667 MG CAP/TAB PO SCH ×3 (12:25→17:13)
[2021-05-22] MEDS: predniSONE 20 MG TAB PO SCH (12:46)
[2021-05-22] MEDS: AZITHROMYCIN 250 MG TAB PO SCH (12:47)
[2021-05-22] MEDS: CLOPIDOGREL BISULFATE 75 MG TAB PO SCH (12:47)
[2021-05-22] MEDS: ASPIRIN 81 MG ECTAB PO SCH (12:48)
[2021-05-22] MEDS: PANTOprazole 40 MG TAB PO SCH (12:48)
[2021-05-22] MEDS: NEPHROCAPS PO SCH (12:48)
[2021-05-22] MEDS: PREGABALIN 25 MG CAP PO SCH ×2 (12:51→20:48)
[2021-05-22] MEDS: PREGABALIN 75 MG CAP PO SCH (12:51)
[2021-05-22] MEDS: FLUTICASONE/VILANTEROL 200/25MCG 14 PUFFS/INHALER INH SCH (12:52)
--- NOTE | 2021-05-22 19:24 | Hospitalist Progress Note ---
Date of Service May 22, 2021 Assessment & Plan (1) COPD exacerbation: Plan: Increase in dyspnea, cough, no increase use of inhalers reported by patient or change in sputum production or color - Azithromycin to replace doxycycline with patient history of dysphagia and vomiting, would avoid doxy in this patient - CT of the chest IMPRESSION: 1. Dilated esophagus. Stable opacities/scarring within left lower lobe and mild interval worsening of atelectasis at dependent portion of the right lower lobe are seen and might represent sequela from prior inflammatory process or aspiration. 2. Pleural calcifications on the right. 3. Stable minimal dilatation of ascending aorta. Dilated pulmonary artery is again seen which could be seen in pulmonary hypertension. 4. Interval development of 6 mm pulmonary nodule within the right upper lobe which was not seen on prior study in 2019. Follow-up evaluation in 3-6 months is recommended per Fleischner Society guidelines. - Prednisone daily PO - Combivent nebs scheduled q6 hours - Continue BREO/equivalent - Hold Spiriva in conjunction with BREO- with confusion possible side effects of both -Patient feels improved, Covid and flu negative (2) ESRD on hemodialysis: Plan: Dialysis dependant MWF - Nephrology consulted for inpatient dialysis - continue phosphate binders (3) Neck pain: Plan: Chronic, evaluated with CT scan in March that reveals cervical stenosis - continue with tylenol and voltaren gel (4) Pleural effusion: Plan: chronic, follow with dialysis - no need for intervention at this time (5) Occipital headache: Plan: As above, (6) Sleep apnea: Plan: Chronic- was to have sleep study performed as outpatient, not sure this has occ ured - patient has history of being on CPAP, but appears in his transition back to this area, this fell off - Case management consulted for assistance with follow up - This may be playing a role in his chronic fatigue and dyspnea as well (7) Diastolic heart failure: Plan: Follow clinically with dialysis- no disease modifying agents - consider getting ECHO while in house to evaluate heart function and dyspnea (8) Ileostomy in place: Plan: Chronic and functional, no acute issues (9) Anemia, chronic renal failure: Plan: Likely related to ESRD - MCV 98 will add b12 and folate levels (10) Hypothyroidism: Plan: Continue Synthroid -TSH pending (11) CAD (coronary artery disease): Plan: Continue statin, continue ASA and Plavix - Troponin mild elevation with non-specific t wave changes, trend out ECG and troponin levels - Don't expect to be normal with ESRD, however follow clinically with demand (12) Hyperlipidemia: Plan: As above (13) Peripheral vascular disease: Plan: Chronic, duplex scans negative for DVT, arterial Doppler showed possible Doppler noted arterial insufficiency to left lower extremity will refer to outpatient vascular surgery for possible intervention no acute infection at this time but will try to be proactive for the future on dual antiplatelet agents at this time (14) CVA (cerebral vascular accident): Plan: Residual effects not found- however likely has componenet of vascular dementia - continue asa and plavix as above (15) GERD (gastroesophageal reflux disease): Plan: Continue muti-modal PPI and H2 - Diet minced and moist - continue anti-emetics as needed (16) H/O abdominal aortic aneurysm repair: Plan: No acute need continue asa and Plavix as above, BP acceptable most of the times (17) AV fistula: Plan: Good thrill and good bruit - per nephrology (18) Atrial fibrillation: Plan: Paroxysmal - continue amiodarone Admission and Anticipated Discharge Date Admission Date: May 20, 2021 Subjective pt doing well after dialysis , has some dry scaling foot changes on left foot, all pre hospital symptoms resolved Review of Systems Review of Systems: Mild distress and fatigue no headache, no visual changes no speech or swallowing issues no chest pain, pressure or palpitations no shortness of breath, cough or wheezes no abdominal pain, nausea or vomiting, diarrhea or constipation no dysuria, hematuria or frequency no focal joint pain or swelling no back pain, CVA tenderness or radicular pain Distal left leg scaling and some small areas of bruising noted no signs of acute infection no focal signs of weakness distal numbness of feet no complaints of anxiety or depression.. Physical Exam Physical Exam: The patient appeared chronically ill Vital signs as documented. Head exam is normocephalic atraumatic Neck is without JVD, thyromegaly, or carotid bruits. Lungs are clear to auscultation, no focal loss of breath sounds Cardiac exam, Rhythm is regular.. No murmurs, rubs or gallops. Abdominal exam reveals normal bowel sounds, soft non tender, no masses Extremities right foot is a transmetatarsal amputation left foot is scaly erythematous with some darkened areas of decreased perfusion that are punctate and not infected Neurologic exam is alert and oriented, no focal loss of strength distal neuropathy Skin is with venous stasis changes to his left lower extremity Psychologically is without concerns for anxiety or depression Results & Data Results & Data ([facility]) Vital Signs (Past 12 Hours) Vital Signs Temp Pulse Pulse Pulse Resp BP BP 05/22/21 16:40 74 05/22/21 15:52 99.1 F 75 18 154/68 H 05/22/21 13:16 52 L 18 05/22/21 12:45 98.4 F 67 66 16 166/84 H 05/22/21 12:00 66 165/78 H 05/22/21 11:40 71 135/77 05/22/21 11:20 68 151/76 H 05/22/21 11:00 72 153/81 H 05/22/21 10:40 72 158/83 H 05/22/21 10:20 71 150/88 H 05/22/21 10:00 69 147/82 H 05/22/21 09:40 69 156/76 H 05/22/21 09:20 69 142/72 H 05/22/21 09:00 68 154/77 H 05/22/21 08:46 70 166/90 H 05/22/21 08:38 98.2 F 59 L Pulse Ox 05/22/21 16:40 05/22/21 15:52 98 05/22/21 13:16 99 05/22/21 12:45 98 05/22/21 12:00 05/22/21 11:40 05/22/21 11:20 05/22/21 11:00 05/22/21 10:40 05/22/21 10:20 05/22/21 10:00 05/22/21 09:40 05/22/21 09:20 05/22/21 09:00 05/22/21 08:46 05/22/21 08:38 PG Care Time/CCT Total # of Minutes Spent Total Time Spent with Patient: Total time spent is greater than 50% in coordination of care (as documented) at patient's floor/unit and/or counseling patient: Coding Level of Care Code 84921 Subseq Hosp Care Lvl 2 Diagnoses COPD exacerbation J44.1 ESRD on hemodialysis N18.6; Z99.2 Neck pain M54.2 Pleural effusion J90 Occipital headache R51.9 Sleep apnea G47.30 Diastolic heart failure I50.[address] Z93.2 Anemia, chronic renal failure N18.9; D63.1 Chronic kidney disease stage: unspecified stage Hypothyroidism E03.9 Hypothyroidism type: acquired CAD (coronary artery disease) I25.10 Coronary Disease-Associated Artery/Lesion type: [place] artery [place] vs. transplanted heart: [place] heart Associated angina: without angina Hyperlipidemia E78.5 Peripheral vascular disease I73.9 CVA (cerebral vascular accident) I63.9 GERD (gastroesophageal reflux disease) K21.9 H/O abdominal aortic aneurysm repair Z98.890 AV fistula I77.0 Atrial fibrillation I48.0 Atrial fibrillation type: paroxysmal (1) Anemia, chronic renal failure Chronic kidney disease stage: unspecified stage Qualified Code(s): N18.9 - Chronic kidney disease, unspecified; D63.1 - Anemia in chronic kidney disease (2) Hypothyroidism Hypothyroidism type: acquired Qualified Code(s): E03.9 - Hypothyroidism, unspecified (3) CAD (coronary artery disease) Coronary Disease-Associated Artery/Lesion type: [place] artery [place] vs. t ransplanted heart: [place] heart Associated angina: without angina Qualified Code(s): I25.10 - Atherosclerotic heart disease of [place] coronary artery without angina pectoris (4) Atrial fibrillation Atrial fibrillation type: paroxysmal Qualified Code(s): I48.0 - Paroxysmal atrial fibrillation
[2021-05-22] MEDS: PARoxetine HCL 20 MG TAB PO SCH (20:41)
[2021-05-22] MEDS: rOPINIRole HCL 0.25 MG TABLET PO SCH (20:41)
[2021-05-22] MEDS: ATORVASTATIN 40 MG TAB PO SCH (20:42)
[2021-05-22] MEDS: DOCUSATE SODIUM 100 MG CAP PO SCH (20:48)
[2021-05-23] MEDS: ALBUT/IPRATROP 3MG/0.5MG NEB 3 ML VIAL INH SCH ×3 (03:33→13:04)
[2021-05-23] MEDS: LEVOTHYROXINE SODIUM 88 MCG TABLET PO SCH (06:26)
[2021-05-23] MEDS: HEPARIN SOD 5,000 UNIT/0.5 ML VIAL SQ SCH ×2 (06:26→13:34)
[2021-05-23] MEDS: PANTOprazole 40 MG TAB PO SCH (08:05)
[2021-05-23] MEDS: AZITHROMYCIN 250 MG TAB PO SCH (08:06)
[2021-05-23] MEDS: CLOPIDOGREL BISULFATE 75 MG TAB PO SCH (08:06)
[2021-05-23] MEDS: NEPHROCAPS PO SCH (08:06)
[2021-05-23] MEDS: predniSONE 20 MG TAB PO SCH (08:06)
[2021-05-23] MEDS: CALCIUM ACETATE 667 MG CAP/TAB PO SCH ×3 (08:06→16:13)
[2021-05-23] MEDS: AMIODARONE 200 MG TAB PO SCH (08:07)
[2021-05-23] MEDS: ASPIRIN 81 MG ECTAB PO SCH (08:07)
[2021-05-23] MEDS: DICLOFENAC SOD 1% GEL 100 GM TUBE EXT SCH ×3 (08:08→16:14)
[2021-05-23] MEDS: FLUTICASONE/VILANTEROL 200/25MCG 14 PUFFS/INHALER INH SCH (08:10)
[2021-05-23] MEDS: PREGABALIN 25 MG CAP PO SCH (08:13)
[2021-05-23] MEDS: PREGABALIN 75 MG CAP PO SCH (08:13)
[2021-05-23 09:23] LABS: Hematocrit (blood only) 34.3 % (42-52); Hemoglobin 11.2 g/dL (14.0-18.0); Mean Corpuscular Hemoglobin 31.6 pg (25-34); Mean Corpuscular Hgb Conc 32.7 g/dL (32-36); Mean Corpuscular Volume 96.9 fL (80-100); Platelet Count 146 K/uL (130-400); RDW Coefficient of Variation 15.3 % (11.5-14.5); RDW Standard Deviation 54.1 fL (36.4-46.3); Red Blood Count 3.54 M/uL (4.7-6.1); White Blood Count 11.21 K/uL (4.8-10.8)
--- NOTE | 2021-05-23 18:09 | Discharge Summary ---
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 Patient comes to the emergency room today for multiple complaints which he has a difficult time detailing or recalling. He is a very poor historian with a poor memory. I attempted to call his sister who he lives with for clarification of his complaints and symptoms, but no a nswer. In short the patient completed dialysis on Thursday where he says he was unable to complete getting on the scale at the end and came to the Emergency room for complaints of dyspnea and fatigue. He had CXR done as well as CT scan of the head without contrast, and Ct of the abdomen without contrast. No acute processes were identified and the patient was to discharged with COPD exacerbation and prescribed oral prednisone and oral doxycycline. These medications the patient say he did not brain picker or start yet. He comes in today for the same symptoms and did not go to dialysis today. The patient remains on his home oxygen of 2LNC with adequate SPo2 while resting, however was noted with tachypnea on arrival. CXR reviewed today consistent with mild volume overload and chronic small pleural effusions. Patient is having Bilateral lower extremity Doppler performed for his elevated D-dimer, dyspnea, ordered by EMD to evaluate for DVT. Patient will be admitted to monitor his symptoms, further investigate his pulmonary process and rule out infectious etiology, will obtain CTA of the chest as patient will be getting dialysis likely today. Nephrology has been consulted and patient receives dialysis MW. Telemetry for 24 hours follow ECG and troponin. Principal Diagnosis acute on chronic respiratory failure end stage renal disease on dialysis Discharge Exam The patient appeared chronically ill but stable Vital signs as documented. Lungs are clear to auscultation diminished air movement throughout Cardiac exam, Rhythm is regular.. No murmurs, rubs or gallops. Discharge Data Allergies Allergy/AdvReac Type Severity Reaction Status Date / Time oxycodone AdvReac Severe DELIRIUM Verified 05/20/21 09:07 tramadol AdvReac Severe dizziness;a Verified 05/20/21 09:07 nxiety;sob gabapentin AdvReac Intermediate Nausea Verified 05/20/21 09:07 Consultations 05/20/21 10:17 ED Decision to Admit Stat 05/20/21 10:22 Consult Nephrology Routine Ordered Studies 05/20/21 10:17 US venous doppler LE BI Stat 05/20/21 18:36 CT chest diagnostic wo con Urgent 05/21/21 19:43 US arterial duplex LE LT Routine Hospital Course (1) COPD exacerbation: Increase in dyspnea, cough, no increase use of inhalers reported by patient or change in sputum production or color - Azithromycin to replace doxycycline with patient history of dysphagia and vomiting, would avoid doxy in this patient - CT of the chest IMPRESSION: 1. Dilated esophagus. Stable opacities/scarring within left lower lobe and mild interval worsening of atelectasis at dependent portion of the right lower lobe are seen and might represent sequela from prior inflammatory process or aspiration. 2. Pleural calcifications on the right. 3. Stable minimal dilatation of ascending aorta. Dilated pulmonary artery is again seen which could be seen in pulmonary hypertension. 4. Interval development of 6 mm pulmonary nodule within the right upper lobe which was not seen on prior study in 2019. Follow-up evaluation in 3-6 months is recommended per Fleischner Society guidelines. - Prednisone daily PO tapering dose ordered at time of discharge - Combivent nebs scheduled q6 hours - Continue BREO/equivalent - Hold Spiriva in conjunction with BREO- with confusion possible side effects of both -Patient feels improved, Covid and flu negative (2) ESRD on hemodialysis: Dialysis dependant MWF - Nephrology consulted for inpatient dialysis - continue phosphate binders (3) Neck pain: Chronic, evaluated with CT scan in March that reveals cervical stenosis - continue with tylenol and voltaren gel (4) Pleural effusion: chronic, follow with dialysis - no need for intervention at this time (5) Occipital headache: As above, (6) Sleep apnea: Chronic- was to have sleep study performed as outpatient, not sure this has occured - patient has history of being on CPAP, but appears in his transition back to this area, this fell off - Case management consulted for assistance with follow up - This may be playing a role in his chronic fatigue and dyspnea as well (7) Diastolic heart failure: Follow clinically with dialysis- no disease modifying agents - consider getting ECHO while in house to evaluate heart function and dyspnea (8) 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 functional, no acute issues (9) Anemia, chronic renal failure: Likely related to ESRD - MCV 98 will add b12 and folate levels (10) Hypothyroidism: Continue Synthroid -TSH pending (11) CAD (coronary artery disease): Continue statin, continue ASA and Plavix - Troponin mild elevation with non-specific t wave changes, trend out ECG and troponin levels - Don't expect to be normal with ESRD, however follow clinically with demand (12) Hyperlipidemia: As above (13) Peripheral vascular disease: Chronic, duplex scans negative for DVT, arterial Doppler showed possible Doppler noted arterial insufficiency to left lower extremity will refer to outpatient vascular surgery for possible intervention no acute infection at this time but will try to be proactive for the future on dual antiplatelet agents at this time (14) CVA (cerebral vascular accident): Residual effects not found- however likely has componenet of vascular dementia - continue asa and plavix as above (15) GERD (gastroesophageal reflux disease): Continue muti-modal PPI and H2 (16) H/O abdominal aortic aneurysm repair: No acute need continue asa and Plavix as above, BP acceptable most of the times (17) AV fistula: Good thrill and good bruit - per nephrology (18) Atrial fibrillation: Paroxysmal - continue amiodarone Total Time Total Time Spent Total Time Spent (In Minutes): It required greater than 30 minutes to prepare this patient for discharge Discharge Plan Discharge Items Patient Disposition: Home - Self-Care Reason For Visit: DYSPNEA Discharge Diagnosis: copd exacerbation volume overload with history of dialysis Activity: Resume your previous activity Non-emergency contact: Primary Care Provider and Cigar Machine Feeder Call non-emergency contact if: you have any medication questions and your symptoms worsen Follow-up/Referrals: Pro,Emil Cam MD [Primary Care Provider] - 05/30/21 10:15 am (Your appointment is with the physician store assistant, Deanna Andrade. If you have any questions or need to change this appointment, please call [phone].) Diet: Dialysis Renal Addtl Attending Provider Instructions: Please follow up with you usual dialysis sessions and your dialysis diet Please consider making appointment with Dr Tan to discuss if you can improve the circulation to your left foot, please take care of your foot with washing daily with soap and water, dry carefully, use antibiotic oinment on wounds and consider antifungal cream to dry areas Pending Studies at Discharge: No Stand-Alone Forms: My [facility] [employer], Smoking Cessation Medications and DC Order Prescriptions: New prednisone 10 mg tablet 10 mg PO UD Qty: 40 RF: 0 azithromycin 250 mg Tablet 250 mg PO QAM Qty: 3 RF: 0 Continued atorvastatin 40 mg tablet 40 mg PO HS Qty: 90 RF: 3 Breo Ellipta 200-25 mcg/dose blister with device 1 inh INHALATION QAM Qty: 84 RF: 3 levothyroxine 88 mcg tablet 88 mcg PO DAILY Qty: 90 RF: 3 clopidogrel 75 mg tablet 75 mg PO DAILY Qty: 90 RF: 3 amiodarone 200 mg tablet 200 mg PO Q OTHER DAY Qty: 14 RF: 5 paroxetine HCl 20 mg tablet 20 mg PO HS Qty: 90 RF: 3 Spiriva with HandiHaler 18 mcg capsule, w/inhalation device 1 cap INHALATION QAM Qty: 1 RF: 4 Lyrica 75 mg capsule 75 mg PO QAM Qty: 30 RF: 3 omeprazole 20 mg tablet,delayed release (DR/EC) 40 mg PO QAM RF: 0 Hold Instructions: hold per pro 05/15/21 aspirin [Aspirin Low Dose] 81 mg Tablet,Delayed Release (Dr/Ec) 81 mg PO DAILY RF: 0 Triphrocaps 1 mg capsule 1 mg PO DAILY RF: 0 calcium acetate(phosphat bind) 667 mg Capsule 667 mg PO TIDM RF: 0 docusate sodium 100 mg capsule 100 mg PO HS RF: 0 sennosides [Senokot] 8.6 mg Tablet 8.6 mg PO DAILY PRN (Reason: Constipation) RF: 0 ipratropium-albuterol 0.5 mg-3 mg(2.5 mg base)/3 mL Solution For Nebulization 3 ml INHALATION Q4H PRN (Reason: Shortness Of Breath) RF: 0 lidocaine [Aspercreme (lidocaine HCl)] 4 % Adhesive Patch,Medicated 1 patch TOPICAL DAILY PRN (Reason: Pain) RF: 0 ropinirole 0.25 mg Tablet 0.25 mg PO HS RF: 0 nitroglycerin [Nitrostat] 0.4 mg Tablet, Sublingual 0.4 mg sublingual DIRECTED PRN (Reason: Chest Pain) RF: 0 alum-mag hydroxide-simeth 200-200-20 mg/5 mL Suspension 30 ml PO DIRECTED PRN (Reason: Indigestion) RF: 0 famotidine 20 mg tablet 20 mg PO 3XWK RF: 0 pantoprazole 40 mg Tablet,Delayed Release (Dr/Ec) 40 mg PO QAM Qty: 30 RF: 0 temazepam 15 mg capsule 15 mg PO HS PRN (Reason: Sleep) Qty: 60 RF: 0 diclofenac sodium [Voltaren Arthritis Pain] 1 % gel 2 g topical QID Qty: 100 RF: 0 acetaminophen 325 mg capsule 650 mg PO QID PRN (Reason: pain) Qty: 30 RF: 0 promethazine 25 mg tablet 25 mg PO Q6H PRN (Reason: nausea and vomiting) Qty: 14 RF: 0 Discontinued prednisone 20 mg tablet 60 mg PO DAILY 4 Days Qty: 12 RF: 0 doxycycline hyclate 100 mg tablet 100 mg PO BID 7 Days Qty: 14 RF: 0 Discharge Orders: Discharge Order (Routine); Ordered 05/23/21 Ordered By: Leon Hoffman Admission Data Admit Date/Time: 05/20/21 11:33 Attending Provider: Leon Hoffman Admit Provider: Leon Hoffman Primary Care Provider: Emil Lazcano Other Providers: Marc Griffin ; Leon Hoffman Other Interventions: Discharge Summary Assessment (RN) Last Done: 05/23/21 15:30 Coding Level of Care Code D/C DAY MANAGEMENT >30 MINS Diagnoses COPD exacerbation J44.1 ESRD on hemodialysis N18.6; Z99.2 Neck pain M54.2 Pleural effusion J90 Occipital headache R51.9 Sleep apnea G47.30 Diastolic heart failure I50.[address] Z93.2 Anemia, chronic renal failure N18.9; D63.1 Chronic kidney disease stage: unspecified stage Hypothyroidism E03.9 Hypothyroidism type: acquired CAD (coronary artery disease) I25.10 Coronary Disease-Associated Artery/Lesion type: [place] artery [place] vs. transplanted heart: [place] heart Associated angina: without angina Hyperlipidemia E78.5 Peripheral vascular disease I73.9 CVA (cerebral vascular accident) I63.9 GERD (gastroesophageal reflux disease) K21.9 H/O abdominal aortic aneurysm repair Z98.890 AV fistula I77.0 Atrial fibrillation I48.0 Atrial fibrillation type: paroxysmal
[2021-05-24] MEDS ORDERED: EPOETIN ALFA 4,000 UNIT/ML VIAL IV SCH (07:00)
[2021-05-24] MEDS ORDERED: HEPARIN SOD (PORCINE) 1000 UNIT/ML IV SCH (07:00)
[2021-05-24] MEDS ORDERED: SODIUM CHLORIDE 0.9% 1000ML 1,000 ML IV PRN (07:00)
[2021-05-24] MEDS ORDERED: HEPARIN SOD (PORCINE) 1000 UNIT/ML IV ONE (07:00)
== END 2021-05-23 17:17 | disposition home or self-care (01) | DRG 190 ==
LOC: ED 07:57 → 2N 11:33 → 2W 12:30

== ENCOUNTER 2021-05-31 10:56 | Inpatient (IN) ==
[2021-05-31 11:45] LABS: Basophils # (auto) 0.02 K/uL (0-0.2); Basophils % (auto) 0.1 %; Eosinophils # (auto) 0.16 K/uL (0-0.5); Hematocrit (blood only) 35.9 % (42-52); Hemoglobin 11.6 g/dL (14.0-18.0); Immature Granulocytes # (auto) 0.43 K/uL (0.00-0.02); Immature Granulocytes % (auto) 2.7 %; Lymphocytes # (auto) 1.38 K/uL (1.2-3.4); Lymphocytes % (auto) 8.5 %; Mean Corpuscular Hgb Conc 32.3 g/dL (32-36); Mean Corpuscular Volume 98.9 fL (80-100); Mean Platelet Volume 8.9 fL (7.4-10.4); Monocytes # (auto) 1.78 K/uL (0.11-0.59); Neutrophils # (auto) 12.42 K/uL (1.4-6.5); Neutrophils % (auto) 76.7 %; Platelet Count 161 K/uL (130-400); RDW Coefficient of Variation 16.9 % (11.5-14.5); RDW Standard Deviation 59.3 fL (36.4-46.3); Red Blood Count 3.63 M/uL (4.7-6.1); White Blood Count 16.19 K/uL (4.8-10.8)
[2021-05-31 11:56] LABS: INR 1.1 (0.9-1.1); Partial Thromboplastin Ratio 0.8; Prothrombin Time 11.3 Seconds (9.0-12.0)
[2021-05-31 12:21] LABS: Albumin Level 3.4 gm/dl (3.4-5.0); BUN Creatinine Ratio 7.3 (10-20); Bilirubin,Total 0.9 mg/dl (0.2-1); Creatinine Clr Calc Pharmacy 11.4 ml/min; Est GFR (African American) 7.7 ml/min; Est GFR (Non-African American) 6.7 ml/min; Globulin 3.3 gm/dl (2.5-4.0); Potassium 5.1 mmol/L (3.5-5.1); Total Protein 6.7 gm/dl (6.4-8.2); Troponin I 0.144 ng/ml (0-0.045)
--- NOTE | 2021-05-31 12:48 | Emergency Department Note ---
History of Present Illness General Chief complaint: Chest Pain Time Seen by Provider: 05/31/21 11:45 History of Present Illness Maximum Pain Intensity: 3 36-year-old male presents to the ED with a chief complaint of shortness of breath. The patient states that he has had a continuation of his shortness of breath since being released from the hospital a couple of weeks ago. He went to dialysis this morning and because of his shortness of breath, they declined doing dialysis in centimeter for evaluation. He also reports some decreased oral intake and states he has not been sleeping well recently because of the breathing issue. The patient also reports a small amount of urine output recently. He normally does not produce urine. The patient states that he was placed on 2 L of oxygen at home since the last time he was discharged. This has been working well for him at home. Home Medications Medication Instructions Recorded Confirmed Type calcium acetate(phosphat bind) 667 667 mg PO TIDM 08/23/18 05/20/21 History mg capsule docusate sodium 100 mg capsule 100 mg PO HS 05/31/19 05/20/21 History aspirin 81 mg tablet,delayed 81 mg PO DAILY 05/01/20 05/20/21 History release (Aspirin Low Dose) vitamin B complex and vitamin C 1 mg PO DAILY 05/01/20 05/20/21 History no.20-folic acid 1 mg capsule (Triphrocaps) omeprazole 20 mg tablet,delayed 40 mg PO QAM tab 07/19/20 05/20/21 History release atorvastatin 40 mg tablet 40 mg PO HS #90 tab 11/13/20 05/20/21 Rx fluticasone furoate 200 1 inh INHALATION QAM #84 ea 11/23/20 05/20/21 Rx mcg-vilanterol 25 mcg/dose inhalation powder (Breo Ellipta) levothyroxine 88 mcg tablet 88 mcg PO DAILY #90 tab 11/23/20 05/20/21 Rx clopidogrel 75 mg tablet 75 mg PO DAILY #90 tab 12/24/20 05/20/21 Rx amiodarone 200 mg tablet 200 mg PO Q OTHER DAY #14 tab 01/10/21 05/20/21 Rx paroxetine HCl 20 mg tablet 20 mg PO HS #90 tab 01/21/21 05/20/21 Rx tiotropium bromide 18 mcg capsule 1 cap INHALATION QAM #1 inh 03/27/21 05/20/21 Rx with inhalation device (Spiriva with HandiHaler) aluminum-mag hydroxide-simethicone 30 ml PO DIRECTED PRN 04/08/21 05/20/21 History 200 mg-200 mg-20 mg/5 mL oral susp famotidine 20 mg tablet 20 mg PO 3XWK 04/08/21 05/20/21 History ipratropium 0.5 mg-albuterol 3 mg 3 ml INHALATION Q4H PRN 04/08/21 05/20/21 History (2.5 mg base)/3 mL nebulization soln lidocaine 4 % topical patch 1 patch TOPICAL DAILY PRN 04/08/21 05/20/21 History (Aspercreme (lidocaine)) nitroglycerin 0.4 mg sublingual 0.4 mg SUBLINGUAL DIRECTED PRN 04/08/21 05/20/21 History tablet (Nitrostat) ropinirole 0.25 mg tablet 0.25 mg PO HS 04/08/21 05/20/21 History sennosides 8.6 mg tablet (Senokot) 8.6 mg PO DAILY PRN 04/08/21 05/20/21 History acetaminophen 325 mg capsule 650 mg PO QID PRN #30 cap 04/13/21 05/20/21 Rx diclofenac sodium 1 % topical gel 2 g TOPICAL QID #100 g 04/13/21 05/20/21 Rx (Voltaren Arthritis Pain) pantoprazole 40 mg tablet,delayed 40 mg PO QAM #30 tab 04/13/21 05/20/21 Rx release temazepam 15 mg capsule 15 mg PO HS PRN #60 cap 04/13/21 05/20/21 Rx pregabalin 75 mg capsule (Lyrica) 75 mg PO QAM #30 cap 05/15/21 05/20/21 Rx promethazine 25 mg tablet 25 mg PO Q6H PRN #14 tab 05/17/21 05/20/21 Rx azithromycin 250 mg tablet 250 mg PO QAM #3 tab 05/23/21 Rx prednisone 10 mg tablet 10 mg PO UD #40 tab 05/23/21 Rx Allergies Allergy/AdvReac Type Severity Reaction Status Date / Time oxycodone AdvReac Severe DELIRIUM Verified 05/20/21 09:07 tramadol AdvReac Severe dizziness;a Verified 05/20/21 09:07 nxiety;sob gabapentin AdvReac Intermediate Nausea Verified 05/20/21 09:07 Past Med/Surg History Medical History AAA (abdominal aortic aneurysm) Acute osteomyelitis of foot Anemia, chronic renal failure AV fistula right arm Chronic back pain Chronic GERD COPD (chronic obstructive pulmonary disease) CVA (cerebral vascular accident) "NO RESIDUAL EFFECTS" PER RECORDS Depression Dermatitis Diastolic CHF DVT (deep venous thrombosis) Elevated troponin Encounter for central line placement GERD (gastroesophageal reflux disease) H/O: gout Hyperkalemia Hyperlipidemia Hypothyroidism Ileostomy in place Ischemic colitis Memory loss or impairment Myocardial infarct, old 2010 Necrosis of colon Orthostatic hypotension Skin ulcers of both feet Valvular disease S/P MVR (2010); ?AVR PER RECORDS Vitamin D deficiency Surgical History Difficult intubation B/L Anteriogram, Right femoral to anterior tibial cadaver vein bypass= 08/06/18= Grade view 4, MAC 3 --> Glidescope #3, ETT [address] [facility] H/O abdominal aortic aneurysm repair 2011 H/O [id number] bypass 2012 H/O mitral valve repair 2010; ?AVR PER RECORDS Hx of CABG S/P CABG X2 (DURING MVR) 2010 S/P AAA repair S/P ablation of atrial fibrillation S/P cholecystectomy S/P femoral-popliteal bypass surgery S/P MVR (mitral valve repair) Family History Mother Essential hypertension Father , age 76 Myocardial infarction Denies family history of Colon cancer Ovarian cancer Prostate cancer Breast cancer Social History Smoking Status: Unknown if ever smoked Tobacco Type: Cigarettes Years Smoked: 5; Second Hand Exposure: No; Hx Alcohol Use: No Hx Substance Use: No Preferred Language: [place] Communication Ability: Effective Visual Impairment: No Limitations Saw Maker Required: No Beliefs That Will Affect Care: None marital status: / marital status details: 1 daughter Current Living Situation: Family Current Living Situation Comment: sister takes care of patient and patient's mother 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 Feels Safe at Home: Yes Seatbelt Use: always Assistive Devices: Oxygen - Continuous and Walker Review of Systems A total of 10 systems reviewed and were otherwise negative Physical Exam Vital Signs Vital Signs - 24 hr 05/31/21 11:01 05/31/21 11:06 05/31/21 11:31 Temperature 37.2 C Temperature Source Oral Pulse Rate 104 H 98 H 98 H Pulse Rate from SpO2 Sensor 119 H 113 H Respiratory Rate 24 22 23 Respiratory Effort / Characteristics Pursed Lip Blood Pressure 163/92 H 163/92 H Blood Pressure Mean 115 115 Blood Pressure Position Lying Pulse Oximetry 98 99 85 L Oxygen Delivery Method Nasal Cannula Oxygen Flow Rate 2 Sepsis Recent Fever Within 48 Hours No Sepsis New/Unexplained Change in Mental Status No Sepsis Action Taken by Nursing No Action Required 05/31/21 12:00 05/31/21 12:30 05/31/21 12:47 Temperature Temperature Source Pulse Rate 109 H 103 H Pulse Rate from SpO2 Sensor 113 H 113 H Respiratory Rate 31 H 28 H Respiratory Effort / Characteristics Blood Pressure 142/83 H Blood Pressure Mean 102 Blood Pressure Position Pulse Oximetry 95 97 Oxygen Delivery Method Nasal Cannula Oxygen Flow Rate 2 Sepsis Recent Fever Within 48 Hours Sepsis New/Unexplained Change in Mental Status Sepsis Action Taken by Nursing 05/31/21 13:00 Temperature Temperature Source Pulse Rate 105 H Pulse Rate from SpO2 Sensor 110 H Respiratory Rate 22 Respiratory Effort / Characteristics Blood Pressure 142/83 H Blood Pressure Mean 102 Blood Pressure Position Pulse Oximetry 97 Oxygen Delivery Method Oxygen Flow Rate Sepsis Recent Fever Within 48 Hours Sepsis New/Unexplained Change in Mental Status Sepsis Action Taken by Nursing CONSTITUTIONAL/VITAL SIGNS: Reviewed / noted above. GENERAL: Non-toxic in appearance. INTEGUMENTARY: Warm, dry, and [place]. HEAD: Normocephalic. EYES: without scleral icterus or trauma. ENT/OROPHARYNX: clear and moist. LYMPHADENOPATHY/NECK: Is supple without lymphadenopathy or meningismus. RESPIRATORY: Diminished with crackles in the bases bilaterally. Mild increased work of breathing. CARDIOVASCULAR: Regular rate and rhythm. GI/ABDOMEN: Soft and nontender. No organomegaly or pulsatile mass. EXTREMITIES: Warm and well perfused. BACK: No CVA tenderness. NEUROLOGICAL: Intact without focal deficits. PSYCHIATRIC: normal affect. MUSCULOSKELETAL: Normally developed with good muscle tone. TRIAGE NURSING DOCUMENTATION REVIEWED. Medical Decision Making Differential Diagnosis The differential was considered includes acute myocardial infarction, acute coronary syndrome, myocarditis, pericarditis, pericardial effusions /tamponad, esophageal perforation, pulmonary embolism, pneumonia, pneumothorax, cardiomyopathy, congestive heart, anemia , COPD/asthma exacerbation. Medical Records Attestation: I reviewed the patient's medical records. Home Medications Current Medication List: was personally reviewed by me Laboratory Data Attestation: I reviewed the patient's lab results. Result diagrams: 05/31/21 11:30 05/31/21 11:30 Lab Results 05/31/21 05/31/21 05/31/21 Range/Units 11:30 11:30 11:30 WBC 16.19 H (4.8-10.8) K/uL RBC 3.63 L (4.7-6.1) M/uL Hgb 11.6 L (14.0-18.0) g/dL Hct 35.9 L (42-52) % MCV 98.9 (80-100) fL MCH 32.0 (25-34) pg MCHC 32.3 (32-36) g/dL RDW Std Deviation 59.3 H (36.4-46.3) fL RDW Coeff of Jolanta 16.9 H (11.5-14.5) % Plt Count 161 (130-400) K/uL MPV 8.9 (7.4-10.4) fL Immature Gran % (Auto) 2.7 % Neut % (Auto) 76.7 % Lymph % (Auto) 8.5 % Chaves % (Auto) 11.0 % Eos % (Auto) 1.0 % Baso % (Auto) 0.1 % Neut # (Auto) 12.42 H (1.4-6.5) K/uL Lymph # (Auto) 1.38 (1.2-3.4) K/uL Chaves # (Auto) 1.78 H (0.11-0.59) K/uL Eos # (Auto) 0.16 (0-0.5) K/uL Baso # (Auto) 0.02 (0-0.2) K/uL Immature Gran # (Auto) 0.43 H (0.00-0.02) K/uL PT 11.3 (9.0-12.0) Seconds INR 1.1 (0.9-1.1) APTT 22.0 (21.0-31.0) Seconds PTT Ratio 0.8 Sodium 132 L (136-145) mmol/L Potassium 5.1 (3.5-5.1) mmol/L Chloride 100 (98-107) mmol/L Carbon Dioxide 26 (21-32) mmol/L Anion Gap 6.0 (3-11) BUN 54 H (7-18) mg/dl Creatinine 7.22 H* (0.6-1.4) mg/dl Est Cr Clr Drug Dosing 11.4 ml/min Est GFR ( Amer) 7.7 ml/min Est GFR (Non-Af Amer) 6.7 ml/min BUN/Creatinine Ratio 7.3 L (10-20) Glucose 99 (70-99) mg/dl Calcium 9.0 (8.5-10.1) mg/dl Total Bilirubin 0.9 (0.2-1) mg/dl AST 24 (15-37) U/L ALT 52 (12-78) U/L Alkaline Phosphatase 101 (45-117) U/L Troponin I 0.144 H* (0-0.045) ng/ml Total Protein 6.7 (6.4-8.2) gm/dl Albumin 3.4 (3.4-5.0) gm/dl Globulin 3.3 (2.5-4.0) gm/dl Albumin/Globulin Ratio 1.0 (0.9-2) COVID-19 Eval Order SARS-CoV-2 (PCR) (Negative) 05/31/21 05/31/21 Range/Units 12:13 12:13 WBC (4.8-10.8) K/uL RBC (4.7-6.1) M/uL Hgb (14.0-18.0) g/dL Hct (42-52) % MCV (80-100) fL MCH (25-34) pg MCHC (32-36) g/dL RDW Std Deviation (36.4-46.3) fL RDW Coeff of Jolanta (11.5-14.5) % Plt Count (130-400) K/uL MPV (7.4-10.4) fL Immature Gran % (Auto) % Neut % (Auto) % Lymph % (Auto) % Chaves % (Auto) % Eos % (Auto) % Baso % (Auto) % Neut # (Auto) (1.4-6.5) K/uL Lymph # (Auto) (1.2-3.4) K/uL Chaves # (Auto) (0.11-0.59) K/uL Eos # (Auto) (0-0.5) K/uL Baso # (Auto) (0-0.2) K/uL Immature Gran # (Auto) (0.00-0.02) K/uL PT (9.0-12.0) Seconds INR (0.9-1.1) APTT (21.0-31.0) Seconds PTT Ratio Sodium (136-145) mmol/L Potassium (3.5-5.1) mmol/L Chloride (98-107) mmol/L Carbon Dioxide (21-32) mmol/L Anion Gap (3-11) BUN (7-18) mg/dl Creatinine (0.6-1.4) mg/dl Est Cr Clr Drug Dosing ml/min Est GFR ( Amer) ml/min Est GFR (Non-Af Amer) ml/min BUN/Creatinine Ratio (10-20) Glucose (70-99) mg/dl Calcium (8.5-10.1) mg/dl Total Bilirubin (0.2-1) mg/dl AST (15-37) U/L ALT (12-78) U/L Alkaline Phosphatase (45-117) U/L Troponin I (0-0.045) ng/ml Total Protein (6.4-8.2) gm/dl Albumin (3.4-5.0) gm/dl Globulin (2.5-4.0) gm/dl Albumin/Globulin Ratio (0.9-2) COVID-19 Eval Order Covid19 at [facility] SARS-CoV-2 (PCR) NEGATIVE (Negative) Imaging Data Radiologist's Impression: Chest X-Ray 05/31/21 11:18 XR chest 1V portable CLINICAL HISTORY: Chest Pain COMPARISON STUDY: Chest radiograph and chest CT May 20, 2021. FINDINGS: Lung volumes are normal. There is no pneumothorax. Cardiomegaly is unchanged. There are median sternotomy wires and prosthetic mitral valve. There is no evidence for pulmonary edema. Minimal bibasilar opacities favor atelectasis. No significant pleural effusion is noted. IMPRESSION: No acute cardiopulmonary findings. No change in appearance of the chest. ACT 112: Negative or not required by law. Electronically signed by: Frank Lombardo M.D. 05/31/2021 1:16 PM ECG Data Attestation: I personally reviewed and interpreted this ECG as follows: Additional Comments: Twelve-lead EKG: Per my interpretation shows atrial fibrillation at a rate of 103. No ST elevation. Normal QTC. No PVCs. MDM Narrative Dialysis dependent renal failure patient presents today with a chief complaint of shortness of breath. He went to dialysis today but they would not do dialysis because of his breathing issues. They sent him here instead. Denies any fevers or cough. Details listed above. His vital signs show blood pressure 163/92 and heart rate of 98. Pulse ox is 99% on 2 L. The patient's left also have a 16,000. His BUN is 54 and creatinine is 7.2. He is a dialysis patient. His troponin is elevated at 0.144. This appears to be chronically elevated. EKG showed A. fib at a rate of 103. Chest x-ray was negative for acute disease. Covid test was negative. Because the patient was due for dialysis today I missed dialysis and they recommended that he be brought to the emergency departm ent and admitted for observation, he will be seen by the hospitalist for further inpatient evaluation and care. Dr. Chacon did request a CT scan to rule out PE. This has been ordered. Impression & Plan Acute dyspnea, Elevated troponin, Dependence on renal dialysis Discharge Plan Visit Data Chief Complaint: Chest Pain ED Provider: Benitez Devi Discharge Problem: Acute dyspnea, Elevated troponin, Dependence on renal dialysis Patient Disposition: Being Evaluated by Hospitalist Forms Stand Alone Forms: My [facility] [place] [employer] Prescriptions Prescriptions: No Action atorvastatin 40 mg tablet 40 mg PO HS Qty: 90 RF: 3 Breo Ellipta 200-25 mcg/dose blister with device 1 inh INHALATION QAM Qty: 84 RF: 3 levothyroxine 88 mcg tablet 88 mcg PO DAILY Qty: 90 RF: 3 clopidogrel 75 mg tablet 75 mg PO DAILY Qty: 90 RF: 3 amiodarone 200 mg tablet 200 mg PO Q OTHER DAY Qty: 14 RF: 5 paroxetine HCl 20 mg tablet 20 mg PO HS Qty: 90 RF: 3 Spiriva with HandiHaler 18 mcg capsule, w/inhalation device 1 cap INHALATION QAM Qty: 1 RF: 4 Lyrica 75 mg capsule 75 mg PO QAM Qty: 30 RF: 3 omeprazole 20 mg tablet,delayed release (DR/EC) 40 mg PO QAM RF: 0 Hold Instructions: hold per pro 05/15/21 aspirin [Aspirin Low Dose] 81 mg Tablet,Delayed Release (Dr/Ec) 81 mg PO DAILY RF: 0 Triphrocaps 1 mg capsule 1 mg PO DAILY RF: 0 calcium acetate(phosphat bind) 667 mg Capsule 667 mg PO TIDM RF: 0 docusate sodium 100 mg capsule 100 mg PO HS RF: 0 sennosides [Senokot] 8.6 mg Tablet 8.6 mg PO DAILY PRN (Reason: Constipation) RF: 0 ipratropium-albuterol 0.5 mg-3 mg(2.5 mg base)/3 mL Solution For Nebulization 3 ml INHALATION Q4H PRN (Reason: Shortness Of Breath) RF: 0 lidocaine [Aspercreme (lidocaine HCl)] 4 % Adhesive Patch,Medicated 1 patch TOPICAL DAILY PRN (Reason: Pain) RF: 0 ropinirole 0.25 mg Tablet 0.25 mg PO HS RF: 0 nitroglycerin [Nitrostat] 0.4 mg Tablet, Sublingual 0.4 mg sublingual DIRECTED PRN (Reason: Chest Pain) RF: 0 alum-mag hydroxide-simeth 200-200-20 mg/5 mL Suspension 30 ml PO DIRECTED PRN (Reason: Indigestion) RF: 0 famotidine 20 mg tablet 20 mg PO 3XWK RF: 0 pantoprazole 40 mg Tablet,Delayed Release (Dr/Ec) 40 mg PO QAM Qty: 30 RF: 0 temazepam 15 mg capsule 15 mg PO HS PRN (Reason: Sleep) Qty: 60 RF: 0 diclofenac sodium [Voltaren Arthritis Pain] 1 % gel 2 g topical QID Qty: 100 RF: 0 acetaminophen 325 mg capsule 650 mg PO QID PRN (Reason: pain) Qty: 30 RF: 0 prednisone 10 mg tablet 10 mg PO UD Qty: 40 RF: 0 azithromycin 250 mg Tablet 250 mg PO QAM Qty: 3 RF: 0 promethazine 25 mg tablet 25 mg PO Q6H PRN (Reason: nausea and vomiting) Qty: 14 RF: 0 Referrals Referrals: Emil Lazcano MD [Primary Care Provider] -
--- NOTE | 2021-05-31 13:17 | XRay Report ---
XR chest 1V portable CLINICAL HISTORY: Chest Pain COMPARISON STUDY: Chest radiograph and chest CT May 20, 2021. FINDINGS: Lung volumes are normal. There is no pneumothorax. Cardiomegaly is unchanged. There are med ly sternotomy wires and prosthetic mitral valve. There is no evidence for pulmonary edema. Minimal b ibasilar opacities favor atelectasis. No significant pleural effusion is noted. IMPRESSION: No acute cardiopulmonary findings. No change in appearance of the chest. ACT 112: Negative or not required by law. Electronically signed by: Frank Lombardo M.D. 05/31/2021 1:16 PM
[2021-05-31] MEDS ORDERED: HEPARIN SOD (PORCINE) 1000 UNIT/ML IV ONE (14:27)
[2021-05-31] MEDS ORDERED: SODIUM CHLORIDE 0.9% 1000ML 1,000 ML IV PRN ×2 (14:27→17:03)
--- NOTE | 2021-05-31 15:30 | History & Physical Report ---
Date of Service May 31, 2021 Assessment & Plan (1) Atrial fibrillation with RVR: Plan: Patient has known h/o PAF. He has had an ablation for such in the past. He was in NSR during his April hospitalization. The rapid a.fib could be contributing to some of his cardiopulmonary symptoms. Lopressor IV x 1 given prior to his HD session today. Then, will place on metoprolol 25mg BID. He takes amiodarone 200mg every other day. If he converts back to NSR would speak with cardiology about adjusting the amiodarone dose or changing to another agent? Further, his CHADS score is high - anticoagulation? I am uncertain why he is not on anticoagulation chronically. Would need to speak with Dr Landrum about this, or research his records. (2) Acute dyspnea: Plan: CTA chest obtained - no volume overload, no PEs, no pneumonia. Etiology?? rapid a.fib? ischemic? COPD? combination? Treat the a.fib. Place on scheduled bronchodilators for COPD; would stop steroids, I don't think he is in COPD exacerbation. Check echo for LV function, PA pressures, etc. Recheck troponin in am. (3) Abdominal pain: Plan: etiology? patient states he has pain with eating. add carafate to his PPI if esophageal/gastric. could he have c diff? check stool for c.diff. ischemic? could consider CTA abd/pelvis. check lipase for completeness. (4) Elevated troponin: Plan: Likely myocardial demand ischemia in setting of #1. Doubt ACS. Esyb-iaf-yrgn repeat troponin in am. Echo. Place on telemetry. Rate control for a.fib. (5) ESRD on hemodialysis: Plan: consulted Dr Landrum from [facility] for HD needs. to have a 2-hr HD session tonight. Appears compensated on exam today. Cont calcium acetate with meals. (6) History of DVT (deep vein thrombosis): Plan: noted. due to such a CTA chest was obtained given his dyspnea; CTA chest neg for PE. heparin 5000 BID for DVT proph. (7) COPD (chronic obstructive pulmonary disease): Plan: per the patient. mild emphysema changes on CT today. I cannot find PFTs in the record to substantiate/categorize his COPD. regardless will keep on inhalers/bronchodilators. stop the prednisone. (8) Memory loss or impairment: Plan: per Dr Landrum he has had memory loss for some time. suspect vascular in etiology. (9) Hypothyroidism: Plan: TSH 1 in April. cont synthroid. (10) CAD (coronary artery disease): Plan: with prior h/o CABG. remains on asa, plavix, statin. adding metoprolol due to a.fib. trop minimally elevated today; repeat in am. echo in am. can't rule out CAD contributing to dyspnea. (11) Chronic ulcer of great toe of left foot with fat layer exposed: Plan: numerous small pre-ulcers/sores on left foot. local wound care. (12) Status post transmetatarsal amputation of right foot: (13) Peripheral vascular disease: Plan: prior vascular graft in right leg is occluded. poor candidate for intervention. cont asa, plavix, statin, etc. (14) Chronic GERD: Plan: cont PPI. EGD from March 2021 noted (venous malformation causing partial obstruction). cont soft diet. (15) CVA (cerebral vascular accident): Plan: noted. asa/plavix for 2nd prevention. (16) AV fistula: Plan: RUE (17) Chronic respiratory failure with hypoxia: Plan: on home O2, 2 L continuously. 2nd COPD? 2nd pulmonary HTN? o2 requirement at baseline today. see #2 above. (18) Penile bleeding: Plan: very vague history by the patient. he does not make urine so I doubt it is hematuria. he has mild candidiasis of the penile head - thus, balanitis causing irritation/bleeding? add nystatin powder for the candidiasis. hold off on catheterization of the bladder. UTI not suspected. 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 heparin 5000 BID cautiously. Plan: place on tele place on observation status PT, OT evals History of Present Illness Chief Complaint: dyspnea, abd pain, poor appetite Primary Care Provider: Emil Lazcano MD 76yo male - numerous medical problems including ESRD on HD managed by [facility]; COPD on home O2; h/o mesenteric ischemia s/p subtotal colectomy & ileostomy formation; cognitive impairment; CAD, h/o AAA repair; h/o PAF; hypothyroidism; CABG; prior stroke. Presents from outpatient HD center due to concerns of ongoing dyspnea. Of note - patient had 2 hours of dialysis yesterday, but did NOT have HD today. Patient is a very poor historian and could not recall specific dates or length of time of his complaints. However, he complained of - 1. dyspnea at rest and dyspnea with exertion; chronic, but recently worse. Just released from [facility] about 1 week ago after hospitalization for similar complaints (05/20 to 05/23). Treated for COPD exacerbation and sent home on prednisone. . 2. pleuritic chest pain with taking deep breaths. 3. orthopnea. 4. poor appetite. 5. pain with eating (points to middle of abdomen). 6. blood per penis - multiple episodes - "a Lot" when asked about volume of blood. But, he does not make urine. Of note - patient had a hospital stay in March marked by numerous complaints at that time as well. Had EGD during that March stay showing a venous malformation causing partial obstruction of upper esophagus. Allergies Allergy/AdvReac Type Severity Reaction Status Date / Time oxycodone AdvReac Severe DELIRIUM Verified 05/31/21 14:54 tramadol AdvReac Severe dizziness;a Verified 05/31/21 14:54 nxiety;sob gabapentin AdvReac Intermediate Nausea Verified 05/31/21 14:54 Home Medications Medication Instructions Recorded Confirmed Type calcium acetate(phosphat bind) 667 667 mg PO TIDM 08/23/18 05/31/21 History mg capsule docusate sodium 100 mg capsule 100 mg PO HS 05/31/19 05/31/21 History aspirin 81 mg tablet,delayed 81 mg PO DAILY 05/01/20 05/31/21 History release (Aspirin Low Dose) vitamin B complex and vitamin C 1 mg PO DAILY 05/01/20 05/31/21 History no.20-folic acid 1 mg capsule (Triphrocaps) omeprazole 20 mg tablet,delayed 40 mg PO QAM tab 07/19/20 05/31/21 History release atorvastatin 40 mg tablet 40 mg PO HS #90 tab 11/13/20 05/31/21 Rx fluticasone furoate 200 1 inh INHALATION QAM #84 ea 11/23/20 05/31/21 Rx mcg-vilanterol 25 mcg/dose inhalation powder (Breo Ellipta) levothyroxine 88 mcg tablet 88 mcg PO DAILY #90 tab 11/23/20 05/31/21 Rx amiodarone 200 mg tablet 200 mg PO Q OTHER DAY #14 tab 01/10/21 05/31/21 Rx paroxetine HCl 20 mg tablet 20 mg PO HS #90 tab 01/21/21 05/31/21 Rx tiotropium bromide 18 mcg capsule 1 cap INHALATION QAM #1 inh 03/27/21 05/31/21 Rx with inhalation device (Spiriva with HandiHaler) aluminum-mag hydroxide-simethicone 30 ml PO DIRECTED PRN 04/08/21 05/31/21 History 200 mg-200 mg-20 mg/5 mL oral susp famotidine 20 mg tablet 20 mg PO 3XWK 04/08/21 05/31/21 History ipratropium 0.5 mg-albuterol 3 mg 3 ml INHALATION Q4H PRN 04/08/21 05/31/21 History (2.5 mg base)/3 mL nebulization soln lidocaine 4 % topical patch 1 patch TOPICAL DAILY PRN 04/08/21 05/31/21 History (Aspercreme (lidocaine)) nitroglycerin 0.4 mg sublingual 0.4 mg SUBLINGUAL DIRECTED PRN 04/08/21 05/31/21 History tablet (Nitrostat) ropinirole 0.25 mg tablet 0.25 mg PO HS 04/08/21 05/31/21 History sennosides 8.6 mg tablet (Senokot) 8.6 mg PO DAILY PRN 04/08/21 05/31/21 History acetaminophen 325 mg capsule 650 mg PO QID PRN #30 cap 04/13/21 05/31/21 Rx diclofenac sodium 1 % topical gel 2 g TOPICAL QID #100 g 04/13/21 05/31/21 Rx (Voltaren Arthritis Pain) pantoprazole 40 mg tablet,delayed 40 mg PO QAM #30 tab 04/13/21 05/31/21 Rx release temazepam 15 mg capsule 15 mg PO HS PRN #60 cap 04/13/21 05/31/21 Rx pregabalin 75 mg capsule (Lyrica) 75 mg PO QAM #30 cap 05/15/21 05/31/21 Rx promethazine 25 mg tablet 25 mg PO Q6H PRN #14 tab 05/17/21 05/31/21 Rx prednisone 10 mg tablet 10 mg PO UD #40 tab 05/23/21 05/31/21 Rx albuterol sulfate 2.5 mg INHALATION Q4H PRN 05/31/21 05/31/21 History clopidogrel 75 mg tablet 75 mg PO QDL 05/31/21 05/31/21 History Past Med/Surg History Medical History AAA (abdominal aortic aneurysm) Acute osteomyelitis of foot Anemia, chronic renal failure AV fistula right arm Chronic back pain Chronic GERD COPD (chronic obstructive pulmonary disease) CVA (cerebral vascular accident) "NO RESIDUAL EFFECTS" PER RECORDS Depression Dermatitis Diastolic CHF DVT (deep venous thrombosis) Elevated troponin Encounter for central line placement GERD (gastroesophageal reflux disease) H/O: gout Hyperkalemia Hyperlipidemia Hypothyroidism Ileostomy in place Ischemic colitis Memory loss or impairment Myocardial infarct, old 2010 Necrosis of colon Orthostatic hypotension Skin ulcers of both feet Valvular disease S/P MVR (2010); ?AVR PER RECORDS Vitamin D deficiency Surgical History Difficult intubation B/L Anteriogram, Right femoral to anterior tibial cadaver vein bypass= 08/06/18= Grade view 4, MAC 3 --> Glidescope #3, ETT 7.5 at [facility] H/O abdominal aortic aneurysm repair 2011 H/O [id number] bypass 2012 H/O mitral valve repair 2010; ?AVR PER RECORDS Hx of CABG S/P CABG X2 (DURING MVR) 2010 S/P AAA repair S/P ablation of atrial fibrillation S/P cholecystectomy S/P femoral-popliteal bypass surgery S/P MVR (mitral valve repair) Family History Mother Essential hypertension Father , age 76 Myocardial infarction Denies family history of Colon cancer Ovarian cancer Prostate cancer Breast cancer Social History Smoking Status: Former smoker Tobacco Type: Cigarettes Years Smoked: 5; Second Hand Exposure: No; Hx Alcohol Use: No Hx Substance Use: No Preferred Language: Malaysian Communication Ability: Effective Visual Impairment: No Limitations Facilities Officer Required: No Beliefs That Will Affect Care: None marital status: / marital status details: 1 daughter Current Living Situation: Family Current Living Situation Comment: sister takes care of patient and patient's mother 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 at Home: Yes Safety Concerns: Feels Safe At This Time Seatbelt Use: always Assistive Devices: CPAP, Oxygen - Continuous, Special Shoe, Walker and Wheelchair Review of Systems Constitutional: + fatigue and + anorexia; no fever and no chills Eyes: no worsening vision Ear, Nose, Mouth, Throat: + dysphagia; no ear pain and no sore throat Respiratory: + cough, + dyspnea, + dyspnea on exertion and + sputum production; no chest congestion Cardiovascular: as per Subjective / HPI, + chest pain and + orthopnea; no edema and no calf pain Gastrointestinal: + abdominal pain and + nausea; no constipation normal stool per ileostomy Genitourinary: + hematuria; no dysuria Musculoskeletal: no back pain Integumentary: dry skin on legs; ulceration right lateral leg; sores on left foot Neurologic: + generalized weakness Psychiatric: + confusion Endocrine: + fatigue Hematologic / Lymphatic: + easy bleeding and + easy bruising Physical Exam Constitutional: + acute distress (hyperventilates at times, dyspneic ), + altered mental status (a/o x 3, but recall is poor and easily gets confused ) and + frail appearing Eyes: PERRL ENMT: Ears: + unable to visualize TM Mouth: oral mucous membranes not dry Neck: trachea midline, no thyromegaly Respiratory: decreased BS b/l, no rales, no wheeze; poor airation throughout; tachypneic Cardiovascular: Rate/Rhythm: + tachycardic and + irregularly irregular Heart Sounds: normal S1 and normal S2; no murmur Vessels: no JVD Extremities: + AV fistula (right arm - with bruit ) pulses right foot <1+; pulses left foot about 1+ Chest (Breasts): Additional Comments: large midline sternotomy scar Gastrointestinal (Abdomen): soft, ileostomy with liquid brown stool in bag, mildly tender upper abdomen/epigastric region; large midline scar; no HSM Musculoskeletal: Extremities: strength 5/5 throughout and + clubbing right foot TMA (all toes absent) Skin: + pallor ulcer - right distal lateral right leg - shallow, mild blood present; stasis changes b/l legs; multiple arterial-appearing pre-ulcers/sores on toes, left foot b/l groin with candidal type rash bruise on left abdominal wall Neurologic: deep tendon reflexes 2+ bilaterally and moves all extremities Psychiatric: Orientation: alert and oriented x 3 Thought Process: + thought process not clear or coherent Genitourinary: uncircumcised; head of penis with mild yeast (balanitis) Lymphatic: no cervical lymphadenopathy Results & Data Results & Data ([facility]) Vital Signs (Past 12 Hours) Vital Signs Temp Pulse Resp BP Pulse Ox 05/31/21 15:01 101 H 20 143/110 H 98 05/31/21 14:30 106 H 24 163/104 H 94 05/31/21 14:00 21 138/88 98 05/31/21 13:30 102 H 22 140/109 H 98 05/31/21 13:00 105 H 22 142/83 H 97 05/31/21 12:30 103 H 28 H 142/83 H 97 05/31/21 12:00 109 H 31 H 95 05/31/21 11:31 98 H 23 85 L 05/31/21 11:06 37.2 C 98 H 22 163/92 H 99 05/31/21 11:01 104 H 24 163/92 H 98 Laboratory Results Laboratory Results - last 24 hr 05/31/21 05/31/21 05/31/21 11:30 11:30 11:30 WBC 16.19 H RBC 3.63 L Hgb 11.6 L Hct 35.9 L MCV 98.9 MCH 32.0 MCHC 32.3 RDW Std Deviation 59.3 H RDW Coeff of Jolanta 16.9 H Plt Count 161 MPV 8.9 Immature Gran % (Auto) 2.7 Neut % (Auto) 76.7 Lymph % (Auto) 8.5 Griggs % (Auto) 11.0 Eos % (Auto) 1.0 Baso % (Auto) 0.1 Neut # (Auto) 12.42 H Lymph # (Auto) 1.38 [place]gs # (Auto) 1.78 H Eos # (Auto) 0.16 Baso # (Auto) 0.02 Immature Gran # (Auto) 0.43 H PT 11.3 INR 1.1 APTT 22.0 PTT Ratio 0.8 Sodium 132 L Potassium 5.1 Chloride 100 Carbon Dioxide 26 Anion Gap 6.0 BUN 54 H Creatinine 7.22 H* Est Cr Clr Drug Dosing 11.4 Est GFR ( Amer) 7.7 Est GFR (Non-Af Amer) 6.7 BUN/Creatinine Ratio 7.3 L Glucose 99 Calcium 9.0 Total Bilirubin 0.9 AST 24 ALT 52 Alkaline Phosphatase 101 Troponin I 0.144 H* Total Protein 6.7 Albumin 3.4 Globulin 3.3 Albumin/Globulin Ratio 1.0 Lipase 297 Nasal Screen MRSA (PCR) COVID-19 Eval Order SARS-CoV-2 (PCR) 05/31/21 05/31/21 05/31/21 12:13 12:13 18:55 WBC RBC Hgb Hct MCV MCH MCHC RDW Std Deviation RDW Coeff of Jolanta Plt Count MPV Immature Gran % (Auto) Neut % (Auto) Lymph % (Auto) [place]gs % (Auto) Eos % (Auto) Baso % (Auto) Neut # (Auto) Lymph # (Auto) [place]gs # (Auto) Eos # (Auto) Baso # (Auto) Immature Gran # (Auto) PT INR APTT PTT Ratio Sodium Potassium Chloride Carbon Dioxide Anion Gap BUN Creatinine Est Cr Clr Drug Dosing Est GFR ( Amer) Est GFR (Non-Af Amer) BUN/Creatinine Ratio Glucose Calcium Total Bilirubin AST ALT Alkaline Phosphatase Troponin I Total Protein Albumin Globulin Albumin/Globulin Ratio Lipase Nasal Screen MRSA (PCR) Negative COVID-19 Eval Order Covid19 at [facility] SARS-CoV-2 (PCR) NEGATIVE Diagnostic Findings Chest X-Ray 05/31/21 11:18 XR chest 1V portable CLINICAL HISTORY: Chest Pain COMPARISON STUDY: Chest radiograph and chest CT May 20, 2021. FINDINGS: Lung volumes are normal. There is no pneumothorax. Cardiomegaly is unchanged. There are median sternotomy wires and prosthetic mitral valve. There is no evidence for pulmonary edema. Minimal bibasilar opacities favor atelectasis. No significant pleural effusion is noted. IMPRESSION: No acute cardiopulmonary findings. No change in appearance of the chest. ACT 112: Negative or not required by law. Electronically signed by: Frank Lombardo M.D. 05/31/2021 1:16 PM Chest CTA 05/31/21 14:25 CT ANGIOGRAM OF THE CHEST CLINICAL HISTORY: Dyspnea. COMPARISON STUDY: Chest CT scans dated 05/20/2021 and 06/07/2019. Chest x-ray dated 05/31/2021. TECHNIQUE: Following the IV administration of 118 cc of Optiray 320, CT angiogram of the chest was performed from the upper abdomen to the thoracic inlet utilizing the pulmonary embolus protocol. Images are reviewed in the axial, sagittal, and coronal planes. 3-D MIPS images are created and assessed. IV contrast was administered without complication. A dose lowering technique was utilized adhering to the principles of ALARA. The examination is degraded by motion artifact, as well as by streak artifact from the arms which could not be elevated above the chest. CT DOSE: 850.00 mGy.cm FINDINGS: Thyroid: Imaged portions of the thyroid gland are normal in size and attenuation. Thoracic aorta: There is advanced atherosclerotic calcification of the thoracic aorta. There is mild aneurysmal dilatation of the ascending thoracic aorta which measures up to 4.4 cm in diameter. The remainder of the thoracic aorta is normal in caliber, and the arch demonstrates standard 3-vessel anatomy. No dissection i s seen. Pulmonary vasculature: The pulmonary trunk is dilated, measuring 4.1 cm in diameter. This suggests pulmonary artery hypertension. There are no filling defects identified in main, lobar, or proximal segmental pulmonary branches to suggest pulmonary embolus. Evaluation of the distal segmental and subsegmental branches is severely degraded by motion artifact. Heart: The patient is status post midline sternotomy and mitral valve surgery. The heart is markedly enlarged and without pericardial effusion. The coronary arteries are densely calcified. Reflux of contrast into the IVC and hepatic veins suggests cardiac dysfunction. Lungs and pleural spaces: Evaluation of the lung parenchyma is significantly compromised by motion artifact. Emphysematous change is suspected. There is trace right pleural effusion as well as bibasilar scarring/atelectasis. No airspace consolidation is identified typical for pneumonia. Debris is noted within the trachea. Pleural calcifications are noted at the right lung base. Scattered calcified granulomas are incidentally noted. The 6 mm nodular density in the right upper lobe seen on 05/20/2021 is no longer identified. Mediastinum: There is no mediastinal lymphadenopathy. The esophagus is patulous. Robyn: Clear. Axillae: There is no axillary lymphadenopathy. Upper abdomen: There is a 2 cm peripherally calcified splenic artery aneurysm. Partially visualized upper abdominal viscera is otherwise grossly unremarkable. Skeletal structures: The skeletal structures are osteopenic. Degenerative change and kyphoscoliosis is noted in the thoracic spine. Arthritic change is seen in the shoulders. No lytic or blastic bony lesions are seen. IMPRESSION: 1. Streak and motion compromised examination. 2. There is no evidence of pulmonary embolus in the main, lobar, or proximal segmental pulmonary arteries. 3. Cardiomegaly with evidence of pulmonary artery hypertension. 4. There is aneurysmal dilatation of the ascending thoracic aorta which measures up to 4.4 cm in diameter. 5. There is no airspace consolidation typical for pneumonia. 6. Trace right pleural effusion. 7. 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 8. Additional findings as above. ACT 112: Negative or not required by law. Electronically signed by: Walker Ellis M.D. 05/31/2021 3:44 PM EKG - my reading - a.fib with RVR, no ST changes Code Status & VTE Plan Code Status full code PG Care Time/CCT Total # of Minutes Spent Total Time Spent with Patient: Total time spent is greater than 50% in coordination of care (as documented) at patient's floor/unit and/or counseling patient: Coding Level of Care Code INT OBSERVATION CARE 70M LVL 3 Diagnoses Atrial fibrillation with RVR I48.91 Acute dyspnea R06.00 Elevated troponin R77.8 ESRD on hemodialysis N18.6; Z99.2 History of DVT (deep vein thrombosis) Z86.718 COPD (chronic obstructive pulmonary disease) J44.9 COPD type: unspecified COPD Memory loss or impairment R41.3 Hypothyroidism E03.9 Hypothyroidism type: acquired CAD (coronary artery disease) I25.10 Associated angina: without angina Coronary Disease-Associated Artery/Lesion type: ambler artery [place] vs. transplanted heart: ambler heart Chronic ulcer of great toe of left foot with fat layer exposed L97.522 Status post transmetatarsal amputation of right foot Z89.431 Peripheral vascular disease I73.9 Chronic GERD K21.9 CVA (cerebral vascular accident) I63.9 AV fistula I77.0 Chronic respiratory failure with hypoxia J96.11 Penile bleeding N48.89 DVT prophylaxis Z29.9 Abdominal pain R10.[address] Z93.2 (1) CAD (coronary artery disease) Associated angina: without angina Coronary Disease-Associated Artery/Lesion type: ambler artery [place] vs. transplanted heart: ambler heart Qualified Code(s): I25.10 - Atherosclerotic heart disease of ambler coronary artery without angina pectoris (2) Hypothyroidism Hypothyroidism type: acquired Qualified Code(s): E03.9 - Hypothyroidism, unspecified (3) COPD (chronic obstructive pulmonary disease) COPD type: unspecified COPD Qualified Code(s): J44.9 - Chronic obstructive pulmonary disease, unspecified
[2021-05-31] MEDS ORDERED: OPTIRAY 320 125ml IV ONE (15:31)
--- NOTE | 2021-05-31 15:46 | CT Scan Report ---
CT ANGIOGRAM OF THE CHEST CLINICAL HISTORY: Dyspnea. COMPARISON STUDY: Chest CT scans dated 05/20/2021 and 06/07/2019. Chest x-ray dated 05/31/2021. TECHNIQUE: Following the IV administration of 118 cc of Optiray 320, CT angiogram of the chest was pe rformed from the upper abdomen to the thoracic inlet utilizing the pulmonary embolus protocol. Images are reviewed in the axial, sagittal, and coronal planes. 3-D MIPS images are created and assessed. I V contrast was administered without complication. A dose lowering technique was utilized adhering to the principles of ALARA. The examination is degraded by motion artifact, as well as by streak artifa ct from the arms which could not be elevated above the chest. CT DOSE: 850.00 mGy.cm FINDINGS: Thyroid: Imaged portions of the thyroid gland are normal in size and attenuation. Thoracic aorta: There is advanced atherosclerotic calcification of the thoracic aorta. There is mild aneurysmal dilatation of the ascending thoracic aorta which measures up to 4.4 cm in diameter. The re mainder of the thoracic aorta is normal in caliber, and the arch demonstrates standard 3-vessel anato my. No dissection is seen. Pulmonary vasculature: The pulmonary trunk is dilated, measuring 4.1 cm in diameter. This suggests pu lmonary artery hypertension. There are no filling defects identified in main, lobar, or proximal segm ental pulmonary branches to suggest pulmonary embolus. Evaluation of the distal segmental and subsegm ental branches is severely degraded by motion artifact. Heart: The patient is status post midline sternotomy and mitral valve surgery. The heart is markedly enlarged and without pericardial effusion. The coronary arteries are densely calcified. Reflux of con trast into the IVC and hepatic veins suggests cardiac dysfunction. Lungs and pleural spaces: Evaluation of the lung parenchyma is significantly compromised by motion ar tifact. Emphysematous change is suspected. There is trace right pleural effusion as well as bibasilar scarring/atelectasis. No airspace consolidation is identified typical for pneumonia. Debris is noted within the trachea. Pleural calcifications are noted at the right lung base. Scattered calcified gra nulomas are incidentally noted. The 6 mm nodular density in the right upper lobe seen on 05/20/2021 is no longer identified. Mediastinum: There is no mediastinal lymphadenopathy. The esophagus is patulous. Robyn: Clear. Axillae: There is no axillary lymphadenopathy. Upper abdomen: There is a 2 cm peripherally calcified splenic artery aneurysm. Partially visualized u pper abdominal viscera is otherwise grossly unremarkable. Skeletal structures: The skeletal structures are osteopenic. Degenerative change and kyphoscoliosis i s noted in the thoracic spine. Arthritic change is seen in the shoulders. No lytic or blastic bony le sions are seen. IMPRESSION: 1. Streak and motion compromised examination. 2. There is no evidence of pulmonary embolus in the main, lobar, or proximal segmental pulmonary charli anil. 3. Cardiomegaly with evidence of pulmonary artery hypertension. 4. There is aneurysmal dilatation of the ascending thoracic aorta which measures up to 4.4 cm in diam eter. 5. There is no airspace consolidation typical for pneumonia. 6. Trace right pleural effusion. 7. 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 8. Additional findings as above. ACT 112: Negative or not required by law. Electronically signed by: Walker Ellis M.D. 05/31/2021 3:44 PM
[2021-05-31] MEDS ORDERED: METOPROLOL TARTRATE 1 MG/ML VIAL IV STA (16:08)
[2021-05-31] MEDS ORDERED: METOPROLOL TARTRATE 1 MG/ML VIAL IV ONE (16:17)
--- NOTE | 2021-05-31 17:08 | Nephrology Consultation ---
Date of Consultation May 31, 2021 Assessment & Plan (1) ESRD on hemodialysis: -given lateness of the hour will dialyze 2 hrs to stabilize the patient and then do another short tx tomorrow; target this evening 1.2L off w/ hemodynamic parameters 2 K bath, mini heparin; orders in for tomorrow as well 2.5 hrs up to 1.5 L off -mini heparin on dialysis, 2K bath; AVF for access; no CATARINA needed -care coordinated w/ Dr Chacon (2) Acute dyspnea: multifactorial > AF w/ RVR, plm HTN; chronic respiratory failure; per primary service; not a strong volume component here but he walks a fine line between overload and euvolemia History of Present Illness Reason for Consultation: ESRD on dialysis Requesting Physician: Dr Chacon Attending Physician: Dr Chacon History of Present Illness 76 y/o M whom I'm asked to see for dialysis needs is under observation to evaluate a fib with RVR and acute on chronic dyspnea. He dialyzes MWF and was sent here from dialysis prior to starting treatment: he presented there feeling poorly having woken this am feeling "like an elephant was sitting on my chest;" noted to have rapid irregular heartbeat at dialysis. His last tx was yesterday (on an off day d/t power/water issues at dialysis unit). 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 I have followed him for several years as an outpatient and believe he also has at least mild cognitive impairment. In addition to chest pressure and abruptly worsened dyspnea, once in ER pt also c/o lower abdominal pain. Noted to be in AF w/ RVR on arrival, w/ stable hemod ynamics. He had CTA Chest which showed no PE, no consolidation, no effusion, no pulmonary edema. He also at admission c/o large amounts of ?blood per penis" but did not endorse this w/ me at my evaluation. Allergies Allergy/AdvReac Type Severity Reaction Status Date / Time oxycodone AdvReac Severe DELIRIUM Verified 05/31/21 14:54 tramadol AdvReac Severe dizziness;a Verified 05/31/21 14:54 nxiety;sob gabapentin AdvReac Intermediate Nausea Verified 05/31/21 14:54 Home Medications Medication Instructions Recorded Confirmed Type calcium acetate(phosphat bind) 667 667 mg PO TIDM 08/23/18 05/31/21 History mg capsule docusate sodium 100 mg capsule 100 mg PO HS 05/31/19 05/31/21 History aspirin 81 mg tablet,delayed 81 mg PO DAILY 05/01/20 05/31/21 History release (Aspirin Low Dose) vitamin B complex and vitamin C 1 mg PO DAILY 05/01/20 05/31/21 History no.20-folic acid 1 mg capsule (Triphrocaps) omeprazole 20 mg tablet,delayed 40 mg PO QAM tab 07/19/20 05/31/21 History release atorvastatin 40 mg tablet 40 mg PO HS #90 tab 11/13/20 05/31/21 Rx fluticasone furoate 200 1 inh INHALATION QAM #84 ea 11/23/20 05/31/21 Rx mcg-vilanterol 25 mcg/dose inhalation powder (Breo Ellipta) levothyroxine 88 mcg tablet 88 mcg PO DAILY #90 tab 11/23/20 05/31/21 Rx amiodarone 200 mg tablet 200 mg PO Q OTHER DAY #14 tab 01/10/21 05/31/21 Rx paroxetine HCl 20 mg tablet 20 mg PO HS #90 tab 01/21/21 05/31/21 Rx tiotropium bromide 18 mcg capsule 1 cap INHALATION QAM #1 inh 03/27/21 05/31/21 Rx with inhalation device (Spiriva with HandiHaler) aluminum-mag hydroxide-simethicone 30 ml PO DIRECTED PRN 04/08/21 05/31/21 History 200 mg-200 mg-20 mg/5 mL oral susp famotidine 20 mg tablet 20 mg PO 3XWK 04/08/21 05/31/21 History ipratropium 0.5 mg-albuterol 3 mg 3 ml INHALATION Q4H PRN 04/08/21 05/31/21 History (2.5 mg base)/3 mL nebulization soln lidocaine 4 % topical patch 1 patch TOPICAL DAILY PRN 04/08/21 05/31/21 History (Aspercreme (lidocaine)) nitroglycerin 0.4 mg sublingual 0.4 mg SUBLINGUAL DIRECTED PRN 04/08/21 05/31/21 History tablet (Nitrostat) ropinirole 0.25 mg tablet 0.25 mg PO HS 04/08/21 05/31/21 History sennosides 8.6 mg tablet (Senokot) 8.6 mg PO DAILY PRN 04/08/21 05/31/21 History acetaminophen 325 mg capsule 650 mg PO QID PRN #30 cap 04/13/21 05/31/21 Rx diclofenac sodium 1 % topical gel 2 g TOPICAL QID #100 g 04/13/21 05/31/21 Rx (Voltaren Arthritis Pain) pantoprazole 40 mg tablet,delayed 40 mg PO QAM #30 tab 04/13/21 05/31/21 Rx release temazepam 15 mg capsule 15 mg PO HS PRN #60 cap 04/13/21 05/31/21 Rx pregabalin 75 mg capsule (Lyrica) 75 mg PO QAM #30 cap 05/15/21 05/31/21 Rx promethazine 25 mg tablet 25 mg PO Q6H PRN #14 tab 05/17/21 05/31/21 Rx prednisone 10 mg tablet 10 mg PO UD #40 tab 05/23/21 05/31/21 Rx albuterol sulfate 2.5 mg INHALATION Q4H PRN 05/31/21 05/31/21 History clopidogrel 75 mg tablet 75 mg PO QDL 05/31/21 05/31/21 History Patient History Medical History AAA (abdominal aortic aneurysm) Acute osteomyelitis of foot Anemia, chronic renal failure AV fistula right arm Chronic back pain Chronic GERD COPD (chronic obstructive pulmonary disease) CVA (cerebral vascular accident) "NO RESIDUAL EFFECTS" PER RECORDS Depression Dermatitis Diastolic CHF DVT (deep venous thrombosis) Elevated troponin Encounter for central line placement GERD (gastroesophageal reflux disease) H/O: gout Hyperkalemia Hyperlipidemia Hypothyroidism Ileostomy in place Ischemic colitis Memory loss or impairment Myocardial infarct, old 2010 Necrosis of colon Orthostatic hypotension Skin ulcers of both feet Valvular disease S/P MVR (2010); ?AVR PER RECORDS Vitamin D deficiency Surgical History Difficult intubation B/L Anteriogram, Right femoral to anterior tibial cadaver vein bypass= 08/06/18= Grade view 4, MAC 3 --> Glidescope #3, ETT 7.5 at [facility] H/O abdominal aortic aneurysm repair 2011 H/O eoikb-ssaxt-auanere bypass 2012 H/O mitral valve repair 2010; ?AVR PER RECORDS Hx of CABG S/P CABG X2 (DURING MVR) 2010 S/P AAA repair S/P ablation of atrial fibrillation S/P cholecystectomy S/P femoral-popliteal bypass surgery S/P MVR (mitral valve repair) Family History Mother Essential hypertension Father , age 76 Myocardial infarction Denies family history of Colon cancer Ovarian cancer Prostate cancer Breast cancer Social History Smoking Status: Former smoker Tobacco Type: Cigarettes Years Smoked: 5; Second Hand Exposure: No; Hx Alcohol Use: No Hx Substance Use: No Preferred Language: Kyrgyz Communication Ability: Effective Visual Impairment: No Limitations Finished Garment Inspector Required: No Beliefs That Will Affect Care: None marital status: / marital status details: 1 daughter Current Living Situation: Family Current Living Situation Comment: sister takes care of patient and patient's mother 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 at Home: Yes Safety Concerns: Feels Safe At This Time Seatbelt Use: always Assistive Devices: CPAP, Oxygen - Continuous, Special Shoe, Walker and Wheelchair Review of Systems Review of Systems: All systems reviewed & are unremarkable except as noted in HPI & below Physical Exam Constitutional: well developed, well nourished and cooperative; no acute distress Eyes: EOM intact bilaterally ENMT: Ears: no external ear abnormality Nose: no external nose abnormality Mouth: + dry oral mucous membranes Neck: no nuchal rigidity Respiratory: normal respiratory effort (on 2LNC) and able to speak in complete sentences; expiratory phase not prolonged Auscultation: + diminished lung sounds Cardiovascular: Rate/Rhythm: + tachycardic and + irregularly irregular Extremities: + AV fistula (+t//b); no edema Gastrointestinal (Abdomen): Inspection/Auscultation: normal bowel sounds Percussion/Palpation: + abdomen tender (midline just below umblicus) and abdomen soft; no guarding and abdomen not rigid Musculoskeletal: Extremities: strength 5/5 throughout Skin: no rashes, warm and dry Neurologic: tompkins, fluent speech, no tremor Psychiatric: Orientation: alert and oriented x 3 Eye Contact: + fair eye contact Speech: normal rate/rhythm/volume of speech Results & Data ([facility]) Vital Signs (Past 12 Hours) Vital Signs Temp Pulse Pulse Resp BP BP Pulse Ox 05/31/21 15:32 101 H 23 97 05/31/21 15:01 101 H 20 143/110 H 98 05/31/21 15:00 104 H 18 171/103 H 100 05/31/21 14:30 106 H 24 163/104 H 94 05/31/21 14:00 21 138/88 98 05/31/21 13:30 102 H 22 140/109 H 98 05/31/21 13:00 105 H 22 142/83 H 97 05/31/21 12:30 103 H 28 H 142/83 H 97 05/31/21 12:00 109 H 31 H 95 05/31/21 11:31 98 H 23 85 L 05/31/21 11:06 37.2 C 98 H 22 163/92 H 99 05/31/21 11:01 104 H 24 163/92 H 98 Laboratory Results 05/31/21 11:30 05/31/21 11:[address] chest PE protocol rviewed; no PE; +plm HTN; no PNA; no vol OL
[2021-05-31] MEDS: HEPARIN SOD (PORCINE) 1000 UNIT/ML IV SCH (18:33)
[2021-05-31] MEDS ORDERED: ALBUTEROL 0.083% NEBU SOLN 3 ML VIAL INH PRN (19:33)
[2021-05-31] MEDS ORDERED: TEMAZEPAM 15 MG CAPSULE PO PRN (19:33)
[2021-05-31] MEDS ORDERED: ONDANSETRON INJ 2 MG/ML 2 ML VIAL IV PRN (19:38)
[2021-05-31] MEDS: ACETAMINOPHEN 325 MG TAB PO PRN (20:17)
[2021-05-31] MEDS ORDERED: IPRATROPIUM BROMIDE HFA INHALER INH SCH (21:00)
[2021-05-31] MEDS ORDERED: IPRATROPIUM BROMIDE/ALBUTEROL respimat INH INH SCH (21:00)
[2021-05-31] MEDS ORDERED: ALBUTEROL HFA 8 GM INHALER INH SCH (21:00)
[2021-05-31] MEDS: ATORVASTATIN 40 MG TAB PO SCH (21:37)
[2021-05-31] MEDS: DOCUSATE SODIUM 100 MG CAP PO SCH (21:37)
[2021-05-31] MEDS: rOPINIRole HCL 0.25 MG TABLET PO SCH (21:38)
[2021-05-31] MEDS: METOPROLOL TARTRATE 25 MG TAB PO SCH (21:38)
[2021-05-31] MEDS: PARoxetine HCL 20 MG TAB PO SCH (21:38)
[2021-05-31] MEDS: DICLOFENAC SOD 1% GEL 100 GM TUBE EXT SCH (21:39)
[2021-06-01 04:59] LABS: Hematocrit (blood only) 34.3 % (42-52); Hemoglobin 11.2 g/dL (14.0-18.0); Mean Corpuscular Hemoglobin 32.5 pg (25-34); Mean Corpuscular Hgb Conc 32.7 g/dL (32-36); Mean Corpuscular Volume 99.4 fL (80-100); Mean Platelet Volume 9.4 fL (7.4-10.4); Platelet Count 137 K/uL (130-400); RDW Coefficient of Variation 16.8 % (11.5-14.5); RDW Standard Deviation 58.9 fL (36.4-46.3); Red Blood Count 3.45 M/uL (4.7-6.1); White Blood Count 15.21 K/uL (4.8-10.8)
[2021-06-01 05:28] LABS: BUN Creatinine Ratio 6.7 (10-20); Calcium 8.3 mg/dl (8.5-10.1); Creatinine Clr Calc Pharmacy 13.1 ml/min; Est GFR (African American) 9.2 ml/min; Potassium 4.6 mmol/L (3.5-5.1); Troponin I 0.127 ng/ml (0-0.045)
[2021-06-01] MEDS: LEVOTHYROXINE SODIUM 88 MCG TABLET PO SCH (06:00)
--- NOTE | 2021-06-01 06:57 | Electrocardiogram Report ---
Test Reason : Blood Pressure : / mmHG Vent. Rate : 103 BPM Atrial Rate : 108 BPM P-R Int : 000 ms QRS Dur : 094 ms QT Int : 354 ms P-R-T Axes : 000 070 081 degrees QTc Int : 463 ms Atrial fibrillation with rapid ventricular response Nonspecific ST abnormality Abnormal ECG When compared with ECG of 21-MAY-2021 07:47, Atrial fibrillation has replaced Sinus rhythm Confirmed by Grupo Moreno ([id number]) on 06/01/2021 6:56:40 AM Referred By: REFERRED SELF Confirmed By:Grupo Moreno
[2021-06-01] MEDS ORDERED: HEPARIN SOD (PORCINE) 1000 UNIT/ML IV ONE (07:00)
[2021-06-01] MEDS ORDERED: SODIUM CHLORIDE 0.9% 1000ML 1,000 ML IV PRN (07:00)
[2021-06-01] MEDS: ALBUTEROL HFA 8 GM INHALER INH SCH ×3 (07:04→17:36)
[2021-06-01] MEDS: IPRATROPIUM BROMIDE HFA INHALER INH SCH ×3 (07:04→17:36)
[2021-06-01] MEDS: ACETAMINOPHEN 325 MG TAB PO PRN (08:38)
[2021-06-01] MEDS: METOPROLOL TARTRATE 25 MG TAB PO SCH ×2 (08:39→21:07)
[2021-06-01] MEDS: CALCIUM ACETATE 667 MG CAP/TAB PO SCH ×3 (08:39→17:02)
[2021-06-01] MEDS: ASPIRIN 81 MG ECTAB PO SCH (08:39)
[2021-06-01] MEDS: AMIODARONE 200 MG TAB PO SCH (08:39)
[2021-06-01] MEDS: NEPHROCAPS PO SCH (08:39)
[2021-06-01] MEDS: PANTOprazole 40 MG TAB PO SCH (08:39)
[2021-06-01] MEDS: FLUTICASONE/VILANTEROL 200/25MCG 14 PUFFS/INHALER INH SCH (08:39)
[2021-06-01] MEDS: UMECLIDINIUM BROMIDE 62.5MCG/BLISTER 7 PUFFS/INHALER INH SCH (08:40)
[2021-06-01] MEDS: DICLOFENAC SOD 1% GEL 100 GM TUBE EXT SCH ×4 (08:40→21:08)
[2021-06-01] MEDS: NYSTATIN POWDER 15GM BTL EXT SCH ×3 (08:40→21:09)
[2021-06-01] MEDS ORDERED: PREGABALIN 75 MG CAP PO SCH ×2 (09:00→16:00)
[2021-06-01] MEDS: HEPARIN SOD 5,000 UNIT/0.5 ML VIAL SQ SCH ×2 (09:36→21:09)
--- NOTE | 2021-06-01 11:17 | Cardiology Consultation ---
Date of Consultation June 01, 2021 Assessment & Plan (1) Acute dyspnea: This appeared to be his reason for evaluation and admission. He was recently discharged for similar complaint Believed to be related to COPD. He certainly could have had an element of pulmonary vascular congestion, but his x- ray the time admission was unremarkable. Does not appear to have peripheral edema. His volume status is regulated by dialysis. (2) Elevated troponin: His degree of biomarker elevation is slightly more than his baseline, but still quite low and not indicative of an acute coronary syndrome. By description he has had symptoms for several days. As such, I would not pursue any ischemic evaluation at this time. (3) CAD (coronary artery disease): I do not believe his current symptoms described as chest pain are related to coronary insufficiency or angina. He was previously on beta-blockade but this was discontinued due to dialysis related hypotension. He should continue on anti-platelet therapy and high-dose atorvastatin. (4) Atrial fibrillation: He presented with atrial fibrillation slightly elevated ventricular rates. He has been maintained on every other day amiodarone. This seems to have been ineffective regimen as he was in sinus during his last admission. Do not believe he is overtly symptomatic related to the arrhythmia. His rate control currently is normal and in fact, he may be back in sinus rhythm (currently off telemetry). He is not a good candidate for additional rate control medications given his history of hypotension and renal failure. He does appear to be a good candidate for systemic anticoagulation. Review of his record suggests that this has been deferred in the past for history of falls or even dialysis. However, neither of these represent an absolute contraindication to anticoagulation. He is certainly high risk for stroke. In the absence of another known contraindication I would suggest stopping aspirin, continuing Plavix and starting Eliquis (5mg BID) or warfarin. (5) Valvular disease: Reported history of mitral valve repair x2. Last echocardiogram did not demonstrate significant mitral valve disease. History of Present Illness Reason for Consultation: Atrial fibrillation Attending Physician: Tan Koo MD History of Present Illness The patient is a 76-year-old gentleman with an extensive cardiac history to include coronary artery disease status post both surgical and percutaneous revascularization, paroxysmal atrial fibrillation on amiodarone therapy, mitral valve repair x2, peripheral artery disease, hyperlipidemia and end-stage renal disease who was recently discharged from the hospital after an exacerbation of COPD. The patient states that over the past week he has not felt well. This apparently involves a constellation of symptoms including headache, fatigue, and inability to sleep and abdominal pain. He presented for routine dialysis and was felt to be somewhat dyspneic. The patient and his sister elected to come to the emergency room for evaluation. He states that he has have some breathing difficulty recently and that his breathing never quite returned to normal even after his recent hospitalization. Additionally, upon questioning, he did report some chest pain as well. He described this as an elephant sitting on my chest. Apparently this has been present for several days. Patient is a very sedentary individual. Even when he is feeling well he seems to spend most of his time reclining on his porch. He states that activity such as walking produce significant fatigue and dyspnea. He claims to have a poor appetite. He eats very little. He has some difficulty with swallowing and needs to take smaller bites, chew his food and drink more liquids in order to avoid symptoms. I interviewed him while on dialysis. He seems to be feeling well currently and reports some improvement in breathing. Allergies Allergy/AdvReac Type Severity Reaction Status Date / Time oxycodone AdvReac Severe DELIRIUM Verified 05/31/21 14:54 tramadol AdvReac Severe dizziness;a Verified 05/31/21 14:54 nxiety;sob gabapentin AdvReac Intermediate Nausea Verified 05/31/21 14:54 Home Medications Medication Instructions Recorded Confirmed Type calcium acetate(phosphat bind) 667 667 mg PO TIDM 08/23/18 05/31/21 History mg capsule docusate sodium 100 mg capsule 100 mg PO HS 05/31/19 05/31/21 History aspirin 81 mg tablet,delayed 81 mg PO DAILY 05/01/20 05/31/21 History release (Aspirin Low Dose) vitamin B complex and vitamin C 1 mg PO DAILY 05/01/20 05/31/21 History no.20-folic acid 1 mg capsule (Triphrocaps) omeprazole 20 mg tablet,delayed 40 mg PO QAM tab 07/19/20 05/31/21 History release atorvastatin 40 mg tablet 40 mg PO HS #90 tab 11/13/20 05/31/21 Rx fluticasone furoate 200 1 inh INHALATION QAM #84 ea 11/23/20 05/31/21 Rx mcg-vilanterol 25 mcg/dose inhalation powder (Breo Ellipta) levothyroxine 88 mcg tablet 88 mcg PO DAILY #90 tab 11/23/20 05/31/21 Rx amiodarone 200 mg tablet 200 mg PO Q OTHER DAY #14 tab 01/10/21 05/31/21 Rx paroxetine HCl 20 mg tablet 20 mg PO HS #90 tab 01/21/21 05/31/21 Rx tiotropium bromide 18 mcg capsule 1 cap INHALATION QAM #1 inh 03/27/21 05/31/21 Rx with inhalation device (Spiriva with HandiHaler) aluminum-mag hydroxide-simethicone 30 ml PO DIRECTED PRN 04/08/21 05/31/21 History 200 mg-200 mg-20 mg/5 mL oral susp famotidine 20 mg tablet 20 mg PO 3XWK 04/08/21 05/31/21 History ipratropium 0.5 mg-albuterol 3 mg 3 ml INHALATION Q4H PRN 04/08/21 05/31/21 History (2.5 mg base)/3 mL nebulization soln lidocaine 4 % topical patch 1 patch TOPICAL DAILY PRN 04/08/21 05/31/21 History (Aspercreme (lidocaine)) nitroglycerin 0.4 mg sublingual 0.4 mg SUBLINGUAL DIRECTED PRN 04/08/21 05/31/21 History tablet (Nitrostat) ropinirole 0.25 mg tablet 0.25 mg PO HS 04/08/21 05/31/21 History sennosides 8.6 mg tablet (Senokot) 8.6 mg PO DAILY PRN 04/08/21 05/31/21 History acetaminophen 325 mg capsule 650 mg PO QID PRN #30 cap 04/13/21 05/31/21 Rx diclofenac sodium 1 % topical gel 2 g TOPICAL QID #100 g 04/13/21 05/31/21 Rx (Voltaren Arthritis Pain) pantoprazole 40 mg tablet,delayed 40 mg PO QAM #30 tab 04/13/21 05/31/21 Rx release temazepam 15 mg capsule 15 mg PO HS PRN #60 cap 04/13/21 05/31/21 Rx pregabalin 75 mg capsule (Lyrica) 75 mg PO QAM #30 cap 05/15/21 05/31/21 Rx promethazine 25 mg tablet 25 mg PO Q6H PRN #14 tab 05/17/21 05/31/21 Rx prednisone 10 mg tablet 10 mg PO UD #40 tab 05/23/21 05/31/21 Rx albuterol sulfate 2.5 mg INHALATION Q4H PRN 05/31/21 05/31/21 History clopidogrel 75 mg tablet 75 mg PO QDL 05/31/21 05/31/21 History Patient History Medical History AAA (abdominal aortic aneurysm) Acute osteomyelitis of foot Anemia, chronic renal failure AV fistula right arm Chronic back pain Chronic GERD COPD (chronic obstructive pulmonary disease) CVA (cerebral vascular accident) "NO RESIDUAL EFFECTS" PER RECORDS Depression Dermatitis Diastolic CHF DVT (deep venous thrombosis) Elevated troponin Encounter for central line placement GERD (gastroesophageal reflux disease) H/O: gout Hyperkalemia Hyperlipidemia Hypothyroidism Ileostomy in place Ischemic colitis Memory loss or impairment Myocardial infarct, old 2010 Necrosis of colon Orthostatic hypotension Skin ulcers of both feet Valvular disease S/P MVR (2010); ?AVR PER RECORDS Vitamin D deficiency Surgical History Difficult intubation B/L Anteriogram, Right femoral to anterior tibial cadaver vein bypass= 08/06/18= Grade view 4, MAC 3 --> Glidescope #3, ETT 7.5 at [facility] H/O abdominal aortic aneurysm repair 2011 H/O [id number] bypass 2012 H/O mitral valve repair 2010; ?AVR PER RECORDS Hx of CABG S/P CABG X2 (DURING MVR) 2010 S/P AAA repair S/P ablation of atrial fibrillation S/P cholecystectomy S/P femoral-popliteal bypass surgery S/P MVR (mitral valve repair) Family History Mother Essential hypertension Father , age 76 Myocardial infarction Denies family history of Colon cancer Ovarian cancer Prostate cancer Breast cancer Social History Smoking Status: Former smoker Tobacco Type: Cigarettes Years Smoked: 5; Second Hand Exposure: No; Hx Alcohol Use: No Hx Substance Use: No Preferred Language: Khmer Communication Ability: Effective Visual Impairment: No Limitations Professional Housing Consultant Required: No Beliefs That Will Affect Care: None marital status: / marital status details: 1 daughter Current Living Situation: Family Current Living Situation Comment: sister takes care of patient and patient's mother 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 Mood and affect appeared normal. He answered all questions appropriately. Unclear how accurate his history was. HEENT: Pupils are equal and reactive to light and accommodation. Extraocular movements are intact. The sclerae are anicteric. Neuro: Cranial nerves intact Lungs: Clear to auscultation bilaterally. He has good air movement without use of accessory muscles. No rales wheezes or rhonchi. Cardiac: Heart demonstrates an irregular rhythm but normal rate. Normal S1 and S2. No murmurs on examination. Pulses: Functioning AV fistula in the right arm Extremities: There was no evidence of hypoperfusion. There is no cyanosis or clubbing. There is no edema. Skin: I did not appreciate any rashes on examination today. Results & Data ([facility]) Vital Signs (Past 12 Hours) Vital Signs Temp Pulse Pulse Pulse Resp BP BP 06/01/21 09:40 36.5 C 63 06/01/21 09:02 68 20 118/63 06/01/21 08:00 37 C 06/01/21 07:05 70 16 06/01/21 07:02 69 20 136/72 06/01/21 06:02 69 15 137/76 06/01/21 05:09 69 06/01/21 04:02 36.6 C 69 20 129/67 06/01/21 02:02 69 20 130/112 H 06/01/21 00:02 82 18 109/72 05/31/21 23:42 36.7 C 77 21 112/70 Pulse Ox 06/01/21 09:40 06/01/21 09:02 99 06/01/21 08:00 06/01/21 07:05 97 06/01/21 07:02 98 06/01/21 06:02 98 06/01/21 05:09 06/01/21 04:02 97 06/01/21 02:02 06/01/21 00:02 05/31/21 23:42 94 Laboratory Results Abnormal Lab Results 05/31/21 05/31/21 05/31/21 11:30 11:30 11:30 WBC 16.19 H RBC 3.63 L Hgb 11.6 L Hct 35.9 L MCV 98.9 MCH 32.0 MCHC 32.3 RDW Std Deviation 59.3 H RDW Coeff of Jolanta 16.9 H Plt Count 161 MPV 8.9 Immature Gran % (Auto) 2.7 Neut % (Auto) 76.7 Lymph % (Auto) 8.5 [place] % (Auto) 11.0 Eos % (Auto) 1.0 Baso % (Auto) 0.1 Neut # (Auto) 12.42 H Lymph # (Auto) 1.38 [place] # (Auto) 1.78 H Eos # (Auto) 0.16 Baso # (Auto) 0.02 Immature Gran # (Auto) 0.43 H PT 11.3 INR 1.1 APTT 22.0 PTT Ratio 0.8 Sodium 132 L Potassium 5.1 Chloride 100 Carbon Dioxide 26 Anion Gap 6.0 BUN 54 H Creatinine 7.22 H* Est Cr Clr Drug Dosing 11.4 Est GFR ( Amer) 7.7 Est GFR (Non-Af Amer) 6.7 BUN/Creatinine Ratio 7.3 L Glucose 99 Calcium 9.0 Total Bilirubin 0.9 AST 24 ALT 52 Alkaline Phosphatase 101 Troponin I 0.144 H* Total Protein 6.7 Albumin 3.4 Globulin 3.3 Albumin/Globulin Ratio 1.0 Lipase 297 Nasal Screen MRSA (PCR) COVID-19 Eval Order SARS-CoV-2 (PCR) 05/31/21 05/31/21 05/31/21 12:13 12:13 18:55 WBC RBC Hgb Hct MCV MCH MCHC RDW Std Deviation RDW Coeff of Jolanta Plt Count MPV Immature Gran % (Auto) Neut % (Auto) Lymph % (Auto) [place] % (Auto) Eos % (Auto) Baso % (Auto) Neut # (Auto) Lymph # (Auto) [place] # (Auto) Eos # (Auto) Baso # (Auto) Immature Gran # (Auto) PT INR APTT PTT Ratio Sodium Potassium Chloride Carbon Dioxide Anion Gap BUN Creatinine Est Cr Clr Drug Dosing Est GFR ( Amer) Est GFR (Non-Af Amer) BUN/Creatinine Ratio Glucose Calcium Total Bilirubin AST ALT Alkaline Phosphatase Troponin I Total Protein Albumin Globulin Albumin/Globulin Ratio Lipase Nasal Screen MRSA (PCR) Negative COVID-19 Eval Order Covid19 at [facility] SARS-CoV-2 (PCR) NEGATIVE 06/01/21 06/01/21 04:36 04:36 WBC 15.21 H RBC 3.45 L Hgb 11.2 L Hct 34.3 L MCV 99.4 MCH 32.5 MCHC 32.7 RDW Std Deviation 58.9 H RDW Coeff of Jolanta 16.8 H Plt Count 137 MPV 9.4 Immature Gran % (Auto) Neut % (Auto) Lymph % (Auto) [place] % (Auto) Eos % (Auto) Baso % (Auto) Neut # (Auto) Lymph # (Auto) [place] # (Auto) Eos # (Auto) Baso # (Auto) Immature Gran # (Auto) PT INR APTT PTT Ratio Sodium 137 Potassium 4.6 Chloride 104 Carbon Dioxide 27 Anion Gap 6.0 BUN 42 H Creatinine 6.23 H* D Est Cr Clr Drug Dosing 13.1 Est GFR ( Amer) 9.2 Est GFR (Non-Af Amer) 8.0 BUN/Creatinine Ratio 6.7 L Glucose 81 Calcium 8.3 L Total Bilirubin AST ALT Alkaline Phosphatase Troponin I 0.127 H* Total Protein Albumin Globulin Albumin/Globulin Ratio Lipase Nasal Screen MRSA (PCR) COVID-19 Eval Order SARS-CoV-2 (PCR) Diagnostic Findings Time of admission. No evidence of pulmonary embolus. Cardiomegaly with evidence of pulmonary hypertension. Thoracic aortic aneurysm measuring 4.4 cm. Splenic artery aneurysm measuring 2 cm. 05/08/2020: Moderate LVH. Normal LV systolic function with an ejection fraction of 50-55%. Mild left atrial dilation. PG Care Time/CCT Total # of Minutes Spent Total Time Spent with Patient: Total time spent is greater than 50% in coordination of care (as documented) at patient's floor/unit and/or counseling patient: Coding Level of Care Code 10738 Initial Inpt Care Lvl 3 Diagnoses Acute dyspnea R06.00 Elevated troponin R77.8 CAD (coronary artery disease) I25.10 Associated angina: without angina Coronary Disease-Associated Artery/Lesion type: [place] artery [place] vs. transplanted heart: [place] heart Atrial fibrillation I48.0 Atrial fibrillation type: paroxysmal Valvular disease I38 (1) CAD (coronary artery disease) Associated angina: without angina Coronary Disease-Associated Artery/Lesion type: [place] artery [place] vs. transplanted heart: [place] heart Qualified Code(s): I25.10 - Atherosclerotic heart disease of [place] coronary artery without angina pectoris (2) Atrial fibrillation Atrial fibrillation type: paroxysmal Qualified Code(s): I48.0 - Paroxysmal atrial fibrillation
[2021-06-01] MEDS: CLOPIDOGREL BISULFATE 75 MG TAB PO SCH (14:34)
[2021-06-01] MEDS: HEPARIN SOD (PORCINE) 1000 UNIT/ML IV SCH ×2 (15:24→15:25)
--- NOTE | 2021-06-01 18:09 | Hospitalist Progress Note ---
Date of Service June 01, 2021 Assessment & Plan (1) Acute dyspnea: Plan: CTA chest obtained - no volume overload, no PEs, no pneumonia. Troponins are serially elevated although currently worse than usual Agree with admitting physician that exacerbation of COPD unlikely. TTE pending ?a. fib contributing (see below) Currently maintaining sats at baseline O2. Continue to wean aiming O2 sats > 90%. (2) Atrial fibrillation with RVR: Plan: Patient has known h/o PAF. He has had an ablation for such in the past. NSR during his April hospitalization. Continue newly started metoprolol 25mg BID. He takes amiodarone 200mg every other day. (3) Abdominal pain: Plan: Resolved. Recent CT for abdominal pain 05/17 showing possible cystitis (decompressed bladder) but no other acute pathology UA +/-micro +/- culture - may explain elevated WBC. (4) Elevated troponin: Plan: Consistent downtrend with demand-ischemia (5) ESRD on hemodialysis: Plan: Appreciate nephrology dialysis management Cont calcium acetate with meals. (6) History of DVT (deep vein thrombosis): Plan: noted. due to such a CTA chest was obtained given his dyspnea; CTA chest neg for PE. heparin 5000 BID for DVT proph. (7) COPD (chronic obstructive pulmonary disease): Plan: per the patient. mild emphysema changes on CT today. No PFTs in EHR to substantiate/categorize his COPD. regardless will keep on inhalers/bronchodilators. Prednisone discontinued on admission (8) Memory loss or impairment: Plan: per Dr Landrum he has had memory loss for some time. suspect vascular in etiology. (9) Hypothyroidism: Plan: TSH 1 in April. cont Synthroid. (10) CAD (coronary artery disease): Plan: with prior h/o CABG. remains on asa, plavix, statin. adding metoprolol due to a.fib. trop minimally elevated today; repeat in am. echo in am. Appreciate cardiology consult (11) Chronic ulcer of great toe of left foot with fat layer exposed: Plan: numerous small pre-ulcers/sores on left foot. local wound care. (12) Status post transmetatarsal amputation of right foot: (13) Peripheral vascular disease: Plan: prior vascular graft in right leg is occluded. poor candidate for intervention. cont asa, plavix, statin, etc. (14) Chronic GERD: Plan: cont PPI. EGD from March 2021 noted (venous malformation causing partial obstruction). cont soft diet. SLT assessment for aspirations - consider video swallow (15) CVA (cerebral vascular accident): Plan: noted. asa/plavix for 2nd prevention. (16) AV fistula: Plan: RUE (17) Chronic respiratory failure with hypoxia: Plan: on home O2, 2 L continuously. Suspect multifactorial with obesity hypoventilation, pulmonary HTN, COPD At baseline. Continue to wean to aim O2 sats > 90%, I am not clear he needs any oxygen at rest. (18) Penile bleeding: Plan: very vague history by the patient. he does not make urine so I doubt it is hematuria. he has mild candidiasis of the penile head - thus, balanitis causing irritation/bleeding? add nystatin powder for the candidiasis. hold off on catheterization of the bladder. 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 heparin 5000 BID cautiously. Plan: Continue on tele Continue on observation status PT, OT evals pending Admission and Anticipated Discharge Date Admission Date: May 31, 2021 Subjective Reports progressive worsening of shortness of breath since prior discharge. No chest pain. Associated weight gain. Mild improvement after dialysis today. Review of Systems Review of Systems: All systems reviewed & are unremarkable except as noted in HPI & below Physical Exam Constitutional: well developed, + altered mental status (remains easily confused) and + frail appearing; + not well nourished and no acute distress ENMT: Mouth: oral mucous membranes not dry Respiratory: normal respiratory effort, lungs clear to auscultation (air entry appears adequate expcept at bases, no wheezing) Cardiovascular: Rate/Rhythm: regular rate and + irregularly irregular Heart Sounds: normal S1 and normal S2; no murmur Vessels: no JVD Extremities: + AV fistula (right arm - with bruit ) Gastrointestinal (Abdomen): Inspection/Auscultation: normal bowel sounds Percussion/Palpation: abdomen soft; abdomen nontender ileostomy with liquid brown stool in bag Musculoskeletal: Extremities: strength 5/5 throughout and + clubbing right foot TMA (all toes absent) Skin: no pallor stasis changes b/l legs; multiple arterial-appearing pre- ulcers/sores on toes, left foot b/l groin with candidal type rash bruise on left abdominal wall Neurologic: moves all extremities and awake; not confused Psychiatric: Orientation: alert and oriented x 3 Genitourinary: uncircumcised; head of penis with mild yeast (balanitis) Results & Data Results & Data ([facility]) Vital Signs (Past 12 Hours) Vital Signs Temp Pulse Pulse Pulse Resp BP BP 06/01/21 18:05 63 15 118/57 L 06/01/21 16:00 66 06/01/21 12:52 71 21 136/76 06/01/21 12:25 36.5 C 60 110/68 06/01/21 12:20 50 L 103/54 L 06/01/21 12:00 55 L 91/57 L 06/01/21 11:40 66 97/55 L 06/01/21 11:20 55 L 101/59 L 06/01/21 11:00 66 109/56 L 06/01/21 10:40 60 102/61 06/01/21 10:20 53 L 134/73 06/01/21 10:00 68 118/65 06/01/21 09:40 36.5 C 63 06/01/21 09:02 68 20 118/63 06/01/21 08:00 37 C 06/01/21 07:05 70 16 06/01/21 07:02 69 20 136/72 Pulse Ox 06/01/21 18:05 100 06/01/21 16:00 06/01/21 12:52 06/01/21 12:25 06/01/21 12:20 06/01/21 12:00 06/01/21 11:40 06/01/21 11:20 06/01/21 11:00 06/01/21 10:40 06/01/21 10:20 06/01/21 10:00 06/01/21 09:40 06/01/21 09:02 99 06/01/21 08:00 06/01/21 07:05 97 06/01/21 07:02 98 PG Care Time/CCT Total # of Minutes Spent Total Time Spent with Patient: Total time spent is greater than 50% in coordination of care (as documented) at patient's floor/unit and/or counseling patient: Coding Level of Care Code 30637 Subseq Obs Care Lvl 2 Diagnoses Atrial fibrillation with RVR I48.91 Acute dyspnea R06.00 Abdominal pain R10.9 Elevated troponin R77.8 ESRD on hemodialysis N18.6; Z99.2 History of DVT (deep vein thrombosis) Z86.718 COPD (chronic obstructive pulmonary disease) J44.9 COPD type: unspecified COPD Memory loss or impairment R41.3 Hypothyroidism E03.9 Hypothyroidism type: acquired CAD (coronary artery disease) I25.10 Coronary Disease-Associated Artery/Lesion type: [place] artery [place] vs. transplanted heart: [place] heart Associated angina: without angina Chronic ulcer of great toe of left foot with fat layer exposed L97.522 Status post transmetatarsal amputation of right foot Z89.431 Peripheral vascular disease I73.9 Chronic GERD K21.9 CVA (cerebral vascular accident) I63.9 AV fistula I77.0 Chronic respiratory failure with hypoxia J96.11 Penile bleeding N48.[address] Z93.2 DVT prophylaxis Z29.9 (1) COPD (chronic obstructive pulmonary disease) COPD type: unspecified COPD Qualified Code(s): J44.9 - Chronic obstructive pulmonary disease, unspecified (2) Hypothyroidism Hypothyroidism type: acquired Qualified Code(s): E03.9 - Hypothyroidism, unspecified (3) CAD (coronary artery disease) Coronary Disease-Associated Artery/Lesion type: [place] artery [place] vs. transplanted heart: [place] heart Associated angina: without angina Qualified Code(s): I25.10 - Atherosclerotic heart disease of [place] coronary artery without angina pectoris
[2021-06-01] MEDS: ATORVASTATIN 40 MG TAB PO SCH (21:08)
[2021-06-01] MEDS: PARoxetine HCL 20 MG TAB PO SCH (21:09)
[2021-06-01] MEDS: rOPINIRole HCL 0.25 MG TABLET PO SCH (21:09)
[2021-06-01] MEDS: DOCUSATE SODIUM 100 MG CAP PO SCH (21:09)
[2021-06-02] MEDS: LEVOTHYROXINE SODIUM 88 MCG TABLET PO SCH (05:25)
[2021-06-02] MEDS: CALCIUM ACETATE 667 MG CAP/TAB PO SCH ×3 (07:53→16:09)
[2021-06-02] MEDS: ASPIRIN 81 MG ECTAB PO SCH (07:53)
[2021-06-02] MEDS: METOPROLOL TARTRATE 25 MG TAB PO SCH ×2 (07:53→20:35)
[2021-06-02] MEDS: NYSTATIN POWDER 15GM BTL EXT SCH ×3 (07:54→20:34)
[2021-06-02] MEDS: NEPHROCAPS PO SCH (07:54)
[2021-06-02] MEDS: HEPARIN SOD 5,000 UNIT/0.5 ML VIAL SQ SCH ×2 (07:54→20:34)
[2021-06-02] MEDS: PANTOprazole 40 MG TAB PO SCH (07:54)
[2021-06-02] MEDS: FLUTICASONE/VILANTEROL 200/25MCG 14 PUFFS/INHALER INH SCH (07:55)
[2021-06-02] MEDS: UMECLIDINIUM BROMIDE 62.5MCG/BLISTER 7 PUFFS/INHALER INH SCH (07:55)
[2021-06-02] MEDS: DICLOFENAC SOD 1% GEL 100 GM TUBE EXT SCH ×4 (07:55→20:34)
--- NOTE | 2021-06-02 09:29 | Cardiology Progress Note ---
Date of Service June 02, 2021 Assessment & Plan (1) Acute dyspnea: Plan: Unclear etiology. His symptoms appear to have resolved. Possibly related to a transition to atrial fibrillation, but this cannot be confirmed. Did undergo dialysis yesterday which also could have improved his symptoms. (2) Elevated troponin: Plan: Chronic elevation. Not indicative of an acute coronary syndrome (3) CAD (coronary artery disease): Plan: Continue aggressive secondary prevention. (4) Atrial fibrillation: Plan: He returned to sinus rhythm. With this was producing some symptoms is unclear. I do not think he requires an alteration in his medical regimen. He has an el ement of mild bradycardia at rest. Increasing his dose of amiodarone would likely produce additional bradycardia. He is not known to have frequent episodes of atrial fibrillation and I do not think he requires more antiarrhythmic. Even with atrial fibrillation overall rate control was adequate. He does not appear to have an absolute contraindication to anticoagulation. This issue can be readdressed in the outpatient setting. He seems to be reasonable candidate for both warfarin or apixaban (5) Valvular disease: Plan: Reported history of mitral valve repair x2. Last echocardiogram did not demonstrate significant mitral valve disease. Plan: From a cardiac standpoint appears to be stable for discharge. Admission and Anticipated Discharge Date Admission Date: May 31, 2021 Subjective This morning patient claimed he feeling well. It seems that his abdominal pain and headache have resolved. He continues to have an element of chest discomfort which is mild in nature. Certainly improved. No breathing difficulty. Review of Systems Review of Systems: Per HPI Physical Exam Physical Exam: The patient is alert and oriented. Mood and affect appeared normal. He answered all questions appropriately. HEENT: Pupils are equal and reactive to light and accommodation. Extraocular movements are intact. The sclerae are anicteric. Neuro: Cranial nerves intact Lungs: Normal respiratory effort. Lungs are clear to auscultation. No expiratory wheezing. Cardiac: Regular rhythm without murmur. Pulses: AV fistula in the right arm Results & Data ([facility]) Vital Signs (Past 12 Hours) Vital Signs Temp Pulse Pulse Resp BP Pulse Ox 06/02/21 08:00 60 06/02/21 07:00 36.5 C 60 17 133/70 100 06/02/21 03:30 36.8 C 55 L 21 123/66 100 06/02/21 01:58 48 L 06/01/21 22:00 36.6 C 55 L 15 128/69 100 PG Care Time/CCT Total # of Minutes Spent Total Time Spent with Patient: Total time spent is greater than 50% in coordination of care (as documented) at patient's floor/unit and/or counseling patient: Coding Level of Care Code 00306 Subseq Hosp Care Lvl 2 Diagnoses Acute dyspnea R06.00 Elevated troponin R77.8 CAD (coronary artery disease) I25.10 Coronary Disease-Associated Artery/Lesion type: [place] artery [place] vs. transplanted heart: [place] heart Associated angina: without angina Atrial fibrillation I48.0 Atrial fibrillation type: paroxysmal Valvular disease I38 (1) CAD (coronary artery disease) Coronary Disease-Associated Artery/Lesion type: [place] artery [place] vs. transplanted heart: [place] heart Associated angina: without angina Qualified Code(s): I25.10 - Atherosclerotic heart disease of [place] coronary artery without angina pectoris (2) Atrial fibrillation Atrial fibrillation type: paroxysmal Qualified Code(s): I48.0 - Paroxysmal atrial fibrillation
[2021-06-02] MEDS: CLOPIDOGREL BISULFATE 75 MG TAB PO SCH (12:01)
[2021-06-02] MEDS: PREGABALIN 75 MG CAP PO SCH (12:49)
--- NOTE | 2021-06-02 16:38 | XCELERA ---
[id number]
[2021-06-02] MEDS: ACETAMINOPHEN 325 MG TAB PO PRN (19:09)
[2021-06-02] MEDS: DOCUSATE SODIUM 100 MG CAP PO SCH (20:34)
[2021-06-02] MEDS: PARoxetine HCL 20 MG TAB PO SCH (20:35)
[2021-06-02] MEDS: rOPINIRole HCL 0.25 MG TABLET PO SCH (20:35)
[2021-06-02] MEDS: ATORVASTATIN 40 MG TAB PO SCH (20:35)
[2021-06-03] MEDS: LEVOTHYROXINE SODIUM 88 MCG TABLET PO SCH (06:06)
--- NOTE | 2021-06-03 06:47 | Hospitalist Progress Note ---
Date of Service June 02, 2021 Assessment & Plan (1) Acute dyspnea: Plan: CTA chest obtained - no volume overload, no PEs, no pneumonia. Troponins are serially elevated although currently worse than usual Agree with admitting physician that exacerbation of COPD unlikely. TTE pending ?a. fib contributing (see below) Currently maintaining sats at baseline O2. Continue to wean aiming O2 sats > 90%. (2) Atrial fibrillation with RVR: Plan: Patient has known h/o PAF. He has had an ablation for such in the past. NSR during his April hospitalization. Back in NSR now Continue newly started metoprolol 25mg BID. He takes amiodarone 200mg every other day. ?increase, will defer to cardiology as he possibly feels better while in NSR although this is debateable. (3) Abdominal pain: Plan: Resolved. Recent CT for abdominal pain 05/17 showing possible cystitis (decompressed bladder) but no other acute pathology UA +/-micro +/- culture - may explain elevated WBC. (4) Elevated troponin: Plan: Consistent downtrend with demand-ischemia (5) ESRD on hemodialysis: Plan: Appreciate nephrology dialysis management Cont calcium acetate with meals. (6) History of DVT (deep vein thrombosis): Plan: noted. due to such a CTA chest was obtained given his dyspnea; CTA chest neg for PE. heparin 5000 BID for DVT proph. (7) COPD (chronic obstructive pulmonary disease): Plan: per the patient. mild emphysema changes on CT today. No PFTs in EHR to substantiate/categorize his COPD. regardless will keep on inhalers/bronchodilators. Prednisone discontinued on admission (8) Memory loss or impairment: Plan: per Dr Landrum he has had memory loss for some time. suspect vascular in etiology. (9) Hypothyroidism: Plan: TSH 1 in April. cont Synthroid. (10) CAD (coronary artery disease): Plan: with prior h/o CABG. remains on asa, plavix, statin. adding metoprolol due to a.fib. trop minimally elevated today; repeat in am. echo in am. Appreciate cardiology consult (11) Chronic ulcer of great toe of left foot with fat layer exposed: Plan: numerous small pre-ulcers/sores on left foot. local wound care. (12) Status post transmetatarsal amputation of right foot: (13) Peripheral vascular disease: Plan: prior vascular graft in right leg is occluded. poor candidate for intervention. cont asa, plavix, statin, etc. (14) Chronic GERD: Plan: cont PPI. EGD from March 2021 noted (venous malformation causing partial obstruction). cont soft diet. SLT assessment for aspirations - consider video swallow (15) CVA (cerebral vascular accident): Plan: noted. asa/plavix for 2nd prevention. (16) AV fistula: Plan: RUE (17) Chronic respiratory failure with hypoxia: Plan: on home O2, 2 L continuously. Suspect multifactorial with obesity hypoventilation, pulmonary HTN, COPD At baseline. Continue to wean to aim O2 sats > 90%, I am not clear he needs any oxygen at rest. (18) Penile bleeding: Plan: very vague history by the patient. he does not make urine so I doubt it is hematuria. he has mild candidiasis of the penile head - thus, balanitis causing irritation/bleeding? add nystatin powder for the candidiasis. hold off on catheterization of the bladder. 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 heparin 5000 BID cautiously. Plan: Continue on tele Continue on observation status PT eval pending Admission and Anticipated Discharge Date Admission Date: May 31, 2021 Subjective Feeling well. He feels as if he just needs a tune up every few weeks. Explained we have not treated anything of significance and just treated him with his regular medications. Suspected his acute dyspnea if more from his demanding schedule of going to dialysis and physical therapy and he just isn't coping well at home. Awaiting PT eval to discuss possible placement. His is now back in NSR however therefore possible just the inefficiencies of being in a. fib were contributing towards his shortness of breath. Will defer management of this to cardiology. Review of Systems Review of Systems: All systems reviewed & are unremarkable except as noted in HPI & below Physical Exam Constitutional: well developed, + altered mental status (remains easily confused) and + frail appearing; + not well nourished and no acute distress ENMT: Mouth: oral mucous membranes not dry Respiratory: normal respiratory effort, lungs clear to auscultation (air entry appears adequate expcept at bases, no wheezing) Cardiovascular: Rate/Rhythm: regular rate and + irregularly irregular Heart Sounds: normal S1 and normal S2; no murmur Vessels: no JVD Extremities: + AV fistula (right arm - with bruit ) Gastrointestinal (Abdomen): Inspection/Auscultation: normal bowel sounds Percussion/Palpation: abdomen soft; abdomen nontender Musculoskeletal: Extremities: strength 5/5 throughout and + clubbing Skin: no pallor Neurologic: moves all extremities and awake; not confused Psychiatric: Orientation: alert and oriented x 3 Results & Data Results & Data ([facility]) Vital Signs (Past 12 Hours) Vital Signs Temp Pulse Pulse Resp BP Pulse Ox 06/02/21 19:00 36.6 C 58 L 17 107/61 96 PG Care Time/CCT Total # of Minutes Spent Total Time Spent with Patient: Total time spent is greater than 50% in coordination of care (as documented) at patient's floor/unit and/or counseling patient: Coding Level of Care Code 06144 Subseq Obs Care Lvl 2 Diagnoses Acute dyspnea R06.00 Atrial fibrillation with RVR I48.91 Abdominal pain R10.9 Elevated troponin R77.8 ESRD on hemodialysis N18.6; Z99.2 History of DVT (deep vein thrombosis) Z86.718 COPD (chronic obstructive pulmonary disease) J44.9 COPD type: unspecified COPD Memory loss or impairment R41.3 Hypothyroidism E03.9 Hypothyroidism type: acquired CAD (coronary artery disease) I25.10 Associated angina: without angina Coronary Disease-Associated Artery/Lesion type: [place] artery [place] vs. transplanted heart: [place] heart Chronic ulcer of great toe of left foot with fat layer exposed L97.522 Status post transmetatarsal amputation of right foot Z89.431 Peripheral vascular disease I73.9 Chronic GERD K21.9 CVA (cerebral vascular accident) I63.9 AV fistula I77.0 Chronic respiratory failure with hypoxia J96.11 Penile bleeding N48.[address] Z93.2 DVT prophylaxis Z29.9 (1) CAD (coronary artery disease) Associated angina: without angina Coronary Disease-Associated Artery/Lesion type: [place] artery [place] vs. transplanted heart: [place] heart Qualified Code(s): I25.10 - Atherosclerotic heart disease of [place] coronary artery without angina pectoris (2) Hypothyroidism Hypothyroidism type: acquired Qualified Code(s): E03.9 - Hypothyroidism, unspecified (3) COPD (chronic obstructive pulmonary disease) COPD type: unspecified COPD Qualified Code(s): J44.9 - Chronic obstructive pulmonary disease, unspecified
[2021-06-03] MEDS ORDERED: SODIUM CHLORIDE 0.9% 1000ML 1,000 ML IV PRN (07:00)
[2021-06-03] MEDS ORDERED: EPOETIN ALFA 4,000 UNIT/ML VIAL IV SCH (07:00)
[2021-06-03] MEDS ORDERED: FAMOTIDINE 20 MG TAB PO SCH (09:00)
--- NOTE | 2021-06-03 11:00 | Dialysis Progress Note ---
Date of Service June 03, 2021 Assessment & Plan Admission and Anticipated Discharge Date Admission Date: May 31, 2021 Subjective Seen During Dialysis. So far doing fine. Denies SOB. BP and AVF fine. Constitutional: well developed, well nourished and cooperative; no acute distress Eyes: EOM intact bilaterally ENMT: Ears: no external ear abnormality Nose: no external nose abnormality Mouth: + dry oral mucous membranes Neck: no nuchal rigidity Respiratory: normal respiratory effort (on 2LNC) and able to speak in complete sentences; expiratory phase not prolonged Auscultation: + diminished lung sounds Cardiovascular: Rate/Rhythm: + tachycardic and + irregularly irregular Extremities: + AV fistula (+t//b); no edema Gastrointestinal (Abdomen): Inspection/Auscultation: normal bowel sounds Percussion/Palpation: + abdomen tender (midline just below umblicus) and abdomen soft; no guarding and abdomen not rigid Musculoskeletal: Extremities: strength 5/5 throughout Skin: no rashes, warm and dry Neurologic: tompkins, fluent speech, no tremor Psychiatric: Orientation: alert and oriented x 3 Eye Contact: + fair eye contact Speech: normal rate/rhythm/volume of speech Labs reviewed. A/p ESRD Dyspnea. --Conitnue HD today for 3.5 hr and take 2.5 kilo off. 2k --Says not SOB today--wich is rare for him. Results & Data ([facility]) Vital Signs (Past 12 Hours) Vital Signs Temp Pulse Pulse Resp BP BP Pulse Ox 06/03/21 10:20 55 L 119/55 L 06/03/21 10:00 56 L 117/64 06/03/21 09:46 56 L 06/03/21 09:40 56 L 125/63 06/03/21 09:20 56 L 110/60 06/03/21 09:00 54 L 105/55 L 06/03/21 08:42 55 L 136/76 06/03/21 08:38 36.5 C 57 L 06/03/21 07:26 36.5 C 56 L 18 123/67 100 06/03/21 03:00 36.6 C 53 L 16 164/79 H 100 06/02/21 23:27 55 L 06/02/21 23:00 36.8 C 56 L 17 131/72 99
[2021-06-03] MEDS: METOPROLOL TARTRATE 25 MG TAB PO SCH (12:49)
[2021-06-03] MEDS: ASPIRIN 81 MG ECTAB PO SCH (12:50)
[2021-06-03] MEDS: CLOPIDOGREL BISULFATE 75 MG TAB PO SCH (12:50)
[2021-06-03] MEDS: PANTOprazole 40 MG TAB PO SCH (12:50)
[2021-06-03] MEDS: NEPHROCAPS PO SCH (12:51)
[2021-06-03] MEDS: HEPARIN SOD 5,000 UNIT/0.5 ML VIAL SQ SCH ×2 (12:51→20:31)
[2021-06-03] MEDS: AMIODARONE 200 MG TAB PO SCH (12:51)
[2021-06-03] MEDS: CALCIUM ACETATE 667 MG CAP/TAB PO SCH ×3 (12:56→17:22)
[2021-06-03] MEDS: DICLOFENAC SOD 1% GEL 100 GM TUBE EXT SCH ×4 (12:56→20:28)
[2021-06-03] MEDS: NYSTATIN POWDER 15GM BTL EXT SCH ×3 (12:57→20:28)
[2021-06-03] MEDS: FLUTICASONE/VILANTEROL 200/25MCG 14 PUFFS/INHALER INH SCH (12:58)
[2021-06-03] MEDS: UMECLIDINIUM BROMIDE 62.5MCG/BLISTER 7 PUFFS/INHALER INH SCH (12:58)
[2021-06-03] MEDS: PREGABALIN 75 MG CAP PO SCH (13:06)
[2021-06-03] MEDS: ACETAMINOPHEN 325 MG TAB PO PRN ×2 (16:31→22:02)
[2021-06-03] MEDS ORDERED: PREGABALIN 75 MG CAP PO SCH (18:00)
[2021-06-03] MEDS: rOPINIRole HCL 0.25 MG TABLET PO SCH (20:29)
[2021-06-03] MEDS: DOCUSATE SODIUM 100 MG CAP PO SCH (20:29)
[2021-06-03] MEDS: ATORVASTATIN 40 MG TAB PO SCH (20:29)
[2021-06-03] MEDS: PARoxetine HCL 20 MG TAB PO SCH (20:29)
--- NOTE | 2021-06-03 21:01 | Hospitalist Progress Note ---
Date of Service June 03, 2021 Assessment & Plan (1) Atrial fibrillation with RVR: Plan: resolved. no recurrent a.fib since admission. isn't tolerating low-dose metoprolol - patrica to the upper 30s - d/c the metoprolol. seen by cardiology - cont amiodarone qod per their recs. is PAF the cause of his intermittent dyspnea?? consider 30-day event monitor to assess his PAF burden. (2) Acute dyspnea: Plan: CTA chest was negative at admission for PE, pneumonia, fluid, effusions, etc. 2nd to rapid a.fib? pulm HTN? ischemia? combination? consider 30-day event monitor. consider ischemic eval. will advise cardiology f/u and PFTs w/ pulm post-d/c. (3) Abdominal pain: Plan: at presentation. etiology? w/u to date negative. pain resolved. pain was present at the same time as his dyspnea. ischemic / anginal equivalent? other? lipase, lfts, etc all had been wnl. (4) Elevated troponin: Plan: Likely myocardial demand ischemia in setting of #1. Doubt ACS. echo w/o wall motion abnormalities. (5) ESRD on hemodialysis: Plan: s/p HD today appreciate [facility] nephrology assistance. (6) History of DVT (deep vein thrombosis): Plan: noted. due to such a CTA chest was obtained given his dyspnea; CTA chest neg for PE. cont heparin 5000 BID for DVT proph. (7) COPD (chronic obstructive pulmonary disease): Plan: will sent to pulmonary as outpatient for PFTs and further assessment. no wheezing on exam. (8) Memory loss or impairment: Plan: per Dr Landrum he has had memory loss for some time. suspect vascular in etiology. (9) Hypothyroidism: Plan: TSH 1 in April. cont synthroid. (10) CAD (coronary artery disease): Plan: with prior h/o CABG. remains on asa, plavix, statin. echo w/o wma. stop metoprolol as above (11) Chronic ulcer of great toe of left foot with fat layer exposed: Plan: numerous small pre-ulcers/sores on left foot. local wound care. (12) Status post transmetatarsal amputation of right foot: (13) Peripheral vascular disease: Plan: prior vascular graft in right leg is occluded. poor candidate for intervention. cont asa, plavix, statin, etc. (14) Chronic GERD: Plan: cont PPI. EGD from March 2021 noted (venous malformation causing partial obstruction). cont soft diet. (15) CVA (cerebral vascular accident): Plan: noted. asa/plavix for 2nd prevention. (16) AV fistula: Plan: RUE (17) Chronic respiratory failure with hypoxia: Plan: on home O2, 2 L continuously. 2nd COPD? 2nd pulmonary HTN? o2 requirement again at baseline today. see #2 above. 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 heparin 5000 BID cautiously. Plan: likely d/c home tomorrow if HRs improve on tele overnight left message for sister that pt can d/c home tomorrow Admission and Anticipated Discharge Date Admission Date: June 03, 2021 Subjective NSR overnight on tele sinus patrica to upper 30s briefly pt sitting in chair no complaints today - especially no dyspnea, no cough, no wheeze feels good "I wish I knew what to do when I get short of breath" denies anxiety eating ok w/o abd pain Review of Systems Constitutional: no fever, no chills, no fatigue and no anorexia Respiratory: no cough, no dyspnea and no wheezing Cardiovascular: no chest pain Gastrointestinal: no abdominal pain, no nausea and no vomiting Physical Exam Physical Exam: gen - looks good today; no dyspnea, no distress, feels well, a/o x 3 today neck - no JVD mouth - MMM heart - RR, patrica, s1 s2, 2/6 ralf LSB lungs - cta b/l, good airation today; no wheeze, no rales abd - soft NT ND BS+; ostomy bag in place with brown stool ext - no edema, pulses 2+ b/l skin - stasis changes b/l legs RUE - AV fistula Results & Data Results & Data ([facility]) Vital Signs (Past 12 Hours) Vital Signs Temp Pulse Pulse Pulse Resp BP BP 06/03/21 19:13 36.4 C L 60 18 93/51 L 06/03/21 16:11 62 06/03/21 15:00 36.6 C 62 18 103/54 L 06/03/21 13:33 06/03/21 12:37 36.5 C 76 116/65 06/03/21 12:20 77 101/64 06/03/21 12:01 77 106/61 06/03/21 11:40 76 110/66 06/03/21 11:20 76 113/66 06/03/21 11:00 76 128/68 06/03/21 10:40 76 126/68 06/03/21 10:20 55 L 119/55 L 06/03/21 10:00 56 L 117/64 06/03/21 09:46 56 L 06/03/21 09:40 56 L 125/63 06/03/21 09:20 56 L 110/60 Pulse Ox 06/03/21 19:13 97 06/03/21 16:11 06/03/21 15:00 96 06/03/21 13:33 97 06/03/21 12:37 06/03/21 12:20 06/03/21 12:01 06/03/21 11:40 06/03/21 11:20 06/03/21 11:00 06/03/21 10:40 06/03/21 10:20 06/03/21 10:00 06/03/21 09:46 06/03/21 09:40 06/03/21 09:20 PG Care Time/CCT Total # of Minutes Spent Total Time Spent with Patient: Total time spent is greater than 50% in coordination of care (as documented) at patient's floor/unit and/or counseling patient: Coding Level of Care Code 08805 Subseq Hosp Care Lvl 2 Diagnoses Atrial fibrillation with RVR I48.91 Acute dyspnea R06.00 Abdominal pain R10.9 Elevated troponin R77.8 ESRD on hemodialysis N18.6; Z99.2 History of DVT (deep vein thrombosis) Z86.718 COPD (chronic obstructive pulmonary disease) J44.9 COPD type: unspecified COPD Memory loss or impairment R41.3 Hypothyroidism E03.9 Hypothyroidism type: acquired CAD (coronary artery disease) I25.10 Associated angina: without angina Coronary Disease-Associated Artery/Lesion type: [place] artery [place] vs. transplanted heart: [place] heart Chronic ulcer of great toe of left foot with fat layer exposed L97.522 Status post transmetatarsal amputation of right foot Z89.431 Peripheral vascular disease I73.9 Chronic GERD K21.9 CVA (cerebral vascular accident) I63.9 AV fistula I77.0 Chronic respiratory failure with hypoxia J96.11 Penile bleeding N48.[address] Z93.2 DVT prophylaxis Z29.9 (1) CAD (coronary artery disease) Associated angina: without angina Coronary Disease-Associated Artery/Lesion type: [place] artery [place] vs. transplanted heart: [place] heart Qualified Code(s): I25.10 - Atherosclerotic heart disease of [place] coronary artery without angina pectoris (2) Hypothyroidism Hypothyroidism type: acquired Qualified Code(s): E03.9 - Hypothyroidism, unspecified (3) COPD (chronic obstructive pulmonary disease) COPD type: unspecified COPD Qualified Code(s): J44.9 - Chronic obstructive pulmonary disease, unspecified
[2021-06-04] MEDS: LEVOTHYROXINE SODIUM 88 MCG TABLET PO SCH (06:04)
[2021-06-04] MEDS: ACETAMINOPHEN 325 MG TAB PO PRN (06:06)
[2021-06-04 06:38] LABS: Basophils # (auto) 0.02 K/uL (0-0.2); Basophils % (auto) 0.2 %; Eosinophils # (auto) 0.22 K/uL (0-0.5); Eosinophils % (auto) 2.3 %; Hematocrit (blood only) 33.8 % (42-52); Hemoglobin 10.9 g/dL (14.0-18.0); Lymphocytes # (auto) 1.53 K/uL (1.2-3.4); Lymphocytes % (auto) 15.7 %; Mean Corpuscular Hemoglobin 32.2 pg (25-34); Mean Corpuscular Hgb Conc 32.2 g/dL (32-36); Mean Corpuscular Volume 99.7 fL (80-100); Mean Platelet Volume 9.2 fL (7.4-10.4); Monocytes # (auto) 1.24 K/uL (0.11-0.59); Monocytes % (auto) 12.8 %; Neutrophils # (auto) 6.61 K/uL (1.4-6.5); Platelet Count 133 K/uL (130-400); RDW Coefficient of Variation 16.9 % (11.5-14.5); RDW Standard Deviation 59.8 fL (36.4-46.3); Red Blood Count 3.39 M/uL (4.7-6.1); White Blood Count 9.72 K/uL (4.8-10.8)
[2021-06-04] MEDS: UMECLIDINIUM BROMIDE 62.5MCG/BLISTER 7 PUFFS/INHALER INH SCH (08:46)
[2021-06-04] MEDS: FLUTICASONE/VILANTEROL 200/25MCG 14 PUFFS/INHALER INH SCH (08:46)
[2021-06-04] MEDS: NEPHROCAPS PO SCH (08:47)
[2021-06-04] MEDS: PANTOprazole 40 MG TAB PO SCH (08:48)
[2021-06-04] MEDS: CALCIUM ACETATE 667 MG CAP/TAB PO SCH ×3 (08:48→17:09)
[2021-06-04] MEDS: ASPIRIN 81 MG ECTAB PO SCH (08:48)
[2021-06-04] MEDS: HEPARIN SOD 5,000 UNIT/0.5 ML VIAL SQ SCH (08:48)
[2021-06-04] MEDS: PREGABALIN 75 MG CAP PO SCH (08:54)
[2021-06-04] MEDS: NYSTATIN POWDER 15GM BTL EXT SCH ×2 (08:55→13:35)
[2021-06-04] MEDS: DICLOFENAC SOD 1% GEL 100 GM TUBE EXT SCH ×3 (08:56→17:10)
[2021-06-04] MEDS: CLOPIDOGREL BISULFATE 75 MG TAB PO SCH (12:13)
--- NOTE | 2021-06-04 13:30 | Discharge Summary ---
Date of Service date of admission - May 31, 2021 date of discharge - June 04, 2021 Admission HPI Per Admitting Provider 76yo male - numerous medical problems including ESRD on HD managed by [facility]; COPD on home O2; h/o mesenteric ischemia s/p subtotal colectomy & ileostomy formation; cognitive impairment; CAD, h/o AAA repair; h/o PAF; hypothyroidism; CABG; prior stroke. Presents from outpatient HD center due to concerns of ongoing dyspnea. Of note - patient had 2 hours of dialysis yesterday, but did NOT have HD today. Patient is a very poor historian and could not recall specific dates or length of time of his complaints. However, he complained of - 1. dyspnea at rest and dyspnea with exertion; chronic, but recently worse. Just released from [facility] about 1 week ago after hospitalization for similar complaints (05/20 to 05/23). Treated for COPD exacerbation and sent home on prednisone. 2. pleuritic chest pain with taking deep breaths. 3. orthopnea. 4. poor appetite. 5. pain with eating (points to middle of abdomen). 6. blood per penis - multiple episodes - "a Lot" when asked about volume of blood. But, he does not make urine. Of note - patient had a hospital stay in March marked by numerous complaints at that time as well. Had EGD during that March stay showing a venous malformation causing partial obstruction of upper esophagus. Principal Diagnosis dyspnea - exact etiology uncertain Discharge Exam Gen: NAD, mild baseline confusion Mouth: MMM Neck: no JVD Heart: RRR, s1 s2, 2/6 FIDELIA LSB Lungs: CTA b/l, mildly decreased BS bases Abd: soft NT ND BS+; ostomy in place with brown stool in bag Ext: stasis changes b/l legs Skin: left foot with preulcerations on multiple toes Vascular: right arm AV fistula Discharge Data Allergies Allergy/AdvReac Type Severity Reaction Status Date / Time oxycodone AdvReac Severe DELIRIUM Verified 05/31/21 14:54 tramadol AdvReac Severe dizziness;a Verified 05/31/21 14:54 nxiety;sob gabapentin AdvReac Intermediate Nausea Verified 05/31/21 14:54 Consultations Cardiology - [facility] Ordered Studies Chest X-Ray 05/31/21 11:18 XR chest 1V portable CLINICAL HISTORY: Chest Pain COMPARISON STUDY: Chest radiograph and chest CT May 20, 2021. FINDINGS: Lung volumes are normal. There is no pneumothorax. Cardiomegaly is unchanged. There are median sternotomy wires and prosthetic mitral valve. There is no evidence for pulmonary edema. Minimal bibasilar opacities favor atelectasis. No significant pleural effusion is noted. IMPRESSION: No acute cardiopulmonary findings. No change in appearance of the chest. ACT 112: Negative or not required by law. Electronically signed by: Frank Lombardo M.D. 05/31/2021 1:16 PM Chest CTA 05/31/21 14:25 CT ANGIOGRAM OF THE CHEST CLINICAL HISTORY: Dyspnea. COMPARISON STUDY: Chest CT scans dated 05/20/2021 and 06/07/2019. Chest x-ray dated 05/31/2021. TECHNIQUE: Following the IV administration of 118 cc of Optiray 320, CT angiogram of the chest was performed from the upper abdomen to the thoracic inlet utilizing the pulmonary embolus protocol. Images are reviewed in the axial, sagittal, and coronal planes. 3-D MIPS images are created and assessed. IV contrast was administered without complication. A dose lowering technique was utilized adhering to the principles of ALARA. The examination is degraded by motion artifact, as well as by streak artifact from the arms which could not be elevated above the chest. CT DOSE: 850.00 mGy.cm FINDINGS: Thyroid: Imaged portions of the thyroid gland are normal in size and attenuation. Thoracic aorta: There is advanced atherosclerotic calcification of the thoracic aorta. There is mild aneurysmal dilatation of the ascending thoracic aorta which measures up to 4.4 cm in diameter. The remainder of the thoracic aorta is normal in caliber, and the arch demonstrates standard 3-vessel anatomy. No dissection is seen. Pulmonary vasculature: The pulmonary trunk is dilated, measuring 4.1 cm in diameter. This suggests pulmonary artery hypertension. There are no filling defects identified in main, lobar, or proximal segmental pulmonary branches to suggest pulmonary embolus. Evaluation of the distal segmental and subsegmental branches is severely degraded by motion artifact. Heart: The patient is status post midline sternotomy and mitral valve surgery. The heart is markedly enlarged and without pericardial effusion. The coronary arteries are densely calcified. Reflux of contrast into the IVC and hepatic veins suggests cardiac dysfunction. Lungs and pleural spaces: Evaluation of the lung parenchyma is significantly compromised by motion artifact. Emphysematous change is suspected. There is trace right pleural effusion as well as bibasilar scarring/atelectasis. No airspace consolidation is identified typical for pneumonia. Debris is noted within the trachea. Pleural calcifications are noted at the right lung base. Scattered calcified granulomas are incidentally noted. The 6 mm nodular density in the right upper lobe seen on 05/20/2021 is no longer identified. Mediastinum: There is no mediastinal lymphadenopathy. The esophagus is patulous. Robyn: Clear. Axillae: There is no axillary lymphadenopathy. Upper abdomen: There is a 2 cm peripherally calcified splenic artery aneurysm. Partially visualized upper abdominal viscera is otherwise grossly unremarkable. Skeletal structures: The skeletal structures are osteopenic. Degenerative change and kyphoscoliosis is noted in the thoracic spine. Arthritic change is seen in the shoulders. No lytic or blastic bony lesions are seen. IMPRESSION: 1. Streak and motion compromised examination. 2. There is no evidence of pulmonary embolus in the main, lobar, or proximal segmental pulmonary arteries. 3. Cardiomegaly with evidence of pulmonary artery hypertension. 4. There is aneurysmal dilatation of the ascending thoracic aorta which measures up to 4.4 cm in diameter. 5. There is no airspace consolidation typical for pneumonia. 6. Trace right pleural effusion. 7. 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 8. Additional findings as above. ACT 112: Negative or not required by law. Electronically signed by: Walker Ellis M.D. 05/31/2021 3:44 PM Hospital Course (1) Atrial fibrillation with RVR: Resolved and did not recur while here. Had been started on low-dose metoprolol but developed bradycardia to the upper 30s. Thus, the metoprolol was discontinued. Patient was seen by [facility] cardiology - continue amiodarone qod per their recommendations. I question if the PAF could be the cause of his intermittent dyspnea? Will set up a 30-day event monitor to assess his PAF burden. (2) Acute dyspnea: CTA chest was negative at admission for PE, pneumonia, fluid, effusions, etc. 2nd to rapid a.fib? pulm HTN? ischemia? combination? consider 30-day event monitor. consider ischemic eval. will advise cardiology f/u and PFTs w/ pulm post-d/c. (3) Abdominal pain: at presentation. etiology? w/u to date negative. pain resolved. pain was present at the same time as his dyspnea. ischemic / anginal equivalent? other? lipase, lfts, etc all had been wnl. (4) Elevated troponin: Likely myocardial demand ischemia in setting of #1. Doubt ACS. echo w/o wall motion abnormalities. (5) ESRD on hemodialysis: s/p HD today appreciate [facility] assistance. (6) History of DVT (deep vein thrombosis): noted. due to such a CTA chest was obtained given his dyspnea; CTA chest neg for PE. cont heparin 5000 BID for DVT proph. (7) COPD (chronic obstructive pulmonary disease): will sent to pulmonary as outpatient for PFTs and further assessment. no wheezing on exam. (8) Memory loss or impairment: per Dr Landrum he has had memory loss for some time. suspect vascular in etiology. (9) Hypothyroidism: TSH 1 in April. cont synthroid. (10) CAD (coronary artery disease): with prior h/o CABG. remains on asa, plavix, statin. echo w/o wma. stop metoprolol as above (11) Chronic ulcer of great toe of left foot with fat layer exposed: numerous small pre-ulcers/sores on left foot. local wound care. (12) Status post transmetatarsal amputation of right foot: (13) Peripheral vascular disease: prior vascular graft in right leg is occluded. poor candidate for intervention. cont asa, plavix, statin, etc. (14) Chronic GERD: cont PPI. EGD from March 2021 noted (venous malformation causing partial obstruction). cont soft diet. (15) CVA (cerebral vascular accident): noted. asa/plavix for 2nd prevention. (16) AV fistula: RUE (17) Chronic respiratory failure with hypoxia: on home O2, 2 L continuously. 2nd COPD? 2nd pulmonary HTN? o2 requirement again at baseline today. see #2 above. 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 The encounter with the patient was in whole, or in part, for the following medical condition, which is the primary reason for home health care (list medical condition): I certify that, based on my findings, the following services are medically necessary home health services: My clinical findings support the need for the above services because: Further, I certify that my clinical findings support that this patient is homebound (i.e. absences from home require considerable and taxing effort and are for medical reasons or anglican services or infrequently or of short duration when for other reasons) because: Certification for Home Health Services: Based on the above findings, I certify that this patient is confined to the home and needs intermittent [facility] care, physical therapy and/or speech therapy or continues to need occupational therapy. The patient is under my care, and I have initiated the establishment of the plan of care. This patient will be followed by a physician who will periodically review the plan of care. Discharge Plan Discharge Items Patient Disposition: Home - Home Health Services Reason For Visit: Atrial fibrillation; Shortness of breath Discharge Diagnosis: 1. shortness of breath - no evidence of blood clots of the lungs, pneumonia, fluid build-up, lung tumors, etc. Your shortness of breath could be from COPD, your a.fib, pulmonary hypertension, or your heart (or a combination of factors). RECOMMEND follow-up with pulmonary and cardiology. 2. atrial fibrillation - short-lived as you returned to normal rhythm by the 2nd hospital day. Could be contributing to shortness of breath. Activity: Resume your previous activity Lifting Comment: as tolerated Non-emergency contact: Primary Care Provider, [employer] Call non-emergency contact if: you have any medication questions, your symptoms worsen, your pain is not controlled and you have a fever Follow-up/Referrals: [facility] Pulmonology [Provider Group] - 07/23/21 9:00 am (first available - dx - history of COPD; needs PFTs, etc. Dr Wilson. On wait list for sooner appt.) Pro,Emil Cam MD [Primary Care Provider] - (as needed for any other needs ) Octavio Calderon MD [Physician] - 07/03/21 11:00 am (see Dr Calderon (or any of his partners) within 3-4 weeks for a.fib, coronary disease With Bladimir KEATING.) Christina Landrum MD, PhD [Physician] - (report for hemodialysis TOMORROW as scheduled ) Diet: Dialysis Renal Fluids: 1500ml (6 cups) Addtl Attending Provider Instructions: Mr Perdue, You were hospitalized at [facility] for difficulty breathing and atrial fibrillation. You underwent a CAT scan of the lungs which did not show blood clots, pneumonia, or fluid build-up. You have had atrial fibrillation in the past. The a.fib resolved by the 2nd hospital day. You have remained in normal rhythm since then. The exact cause of the shortness of breath is not 100% certain. It could be due to the a fib, COPD, a condition called pulmonary hypertension, or another heart problem. We would like for you to do the following to look into this further - * wear a 30-day heart monitor at your home; it will be mailed to your home with instructions on how to use it. I would like to see how often you are having a.fib. * see the lung specialists (pulmonary doctors) to check on your COPD and have breathing tests. * see the [facility] support specialist for follow-up of your a.fib and other heart conditions. Please continue your oxygen as previous. 2 liters continuously. You have a yeast rash in the groin and on the penis. Please use 7 more days of the nystatin powder to this region three times a day. Follow-up - see separate section Return to [facility] if - * you have to use nitroglycerin tablets * you have severe shortness of breath * you have chest pains * you have significant abdominal pain * any fever over 100 degrees * any other concerns It was our pleasure caring for you! Dr Chacon Pending Studies at Discharge: No Stand-Alone Forms: My [facility] [employer] [place], Smoking Cessation Medications and DC Order Prescriptions: New nystatin [Nystop] 100,000 unit/gram Powder 1 applic EXT TID Qty: 60 RF: 0 (DME) Oxygen Home Liters Per Minute See Rx Instructions .ROUTE .MEDSUPPLY Qty: 1 RF: 0 Continued atorvastatin 40 mg tablet 40 mg PO HS Qty: 90 RF: 3 Breo Ellipta 200-25 mcg/dose blister with device 1 inh INHALATION QAM Qty: 84 RF: 3 levothyroxine 88 mcg tablet 88 mcg PO DAILY Qty: 90 RF: 3 amiodarone 200 mg tablet 200 mg PO Q OTHER DAY Qty: 14 RF: 5 paroxetine HCl 20 mg tablet 20 mg PO HS Qty: 90 RF: 3 Spiriva with HandiHaler 18 mcg capsule, w/inhalation device 1 cap INHALATION QAM Qty: 1 RF: 4 Lyrica 75 mg capsule 75 mg PO QAM Qty: 30 RF: 3 omeprazole 20 mg tablet,delayed release (DR/EC) 40 mg PO QAM RF: 0 Hold Instructions: hold per pro 05/15/21 aspirin [Aspirin Low Dose] 81 mg Tablet,Delayed Release (Dr/Ec) 81 mg PO DAILY RF: 0 Triphrocaps 1 mg capsule 1 mg PO DAILY RF: 0 calcium acetate(phosphat bind) 667 mg Capsule 667 mg PO TIDM RF: 0 docusate sodium 100 mg capsule 100 mg PO HS RF: 0 sennosides [Senokot] 8.6 mg Tablet 8.6 mg PO DAILY PRN (Reason: Constipation) RF: 0 ipratropium-albuterol 0.5 mg-3 mg(2.5 mg base)/3 mL Solution For Nebulization 3 ml INHALATION Q4H PRN (Reason: Shortness Of Breath) RF: 0 lidocaine [Aspercreme (lidocaine HCl)] 4 % Adhesive Patch,Medicated 1 patch TOPICAL DAILY PRN (Reason: Pain) RF: 0 ropinirole 0.25 mg Tablet 0.25 mg PO HS RF: 0 nitroglycerin [Nitrostat] 0.4 mg Tablet, Sublingual 0.4 mg sublingual DIRECTED PRN (Reason: Chest Pain) RF: 0 alum-mag hydroxide-simeth 200-200-20 mg/5 mL Suspension 30 ml PO DIRECTED PRN (Reason: Indigestion) RF: 0 famotidine 20 mg tablet 20 mg PO 3XWK RF: 0 pantoprazole 40 mg Tablet,Delayed Release (Dr/Ec) 40 mg PO QAM Qty: 30 RF: 0 temazepam 15 mg capsule 15 mg PO HS PRN (Reason: Sleep) Qty: 60 RF: 0 diclofenac sodium [Voltaren Arthritis Pain] 1 % gel 2 g topical QID Qty: 100 RF: 0 acetaminophen 325 mg capsule 650 mg PO QID PRN (Reason: pain) Qty: 30 RF: 0 clopidogrel 75 mg tablet 75 mg PO QDL RF: 0 Discontinued prednisone 10 mg tablet 10 mg PO UD Qty: 40 RF: 0 promethazine 25 mg tablet 25 mg PO Q6H PRN (Reason: nausea and vomiting) Qty: 14 RF: 0 albuterol sulfate 2.5 mg /3 mL (0.083 %) solution for nebulization 2.5 mg inhalation Q4H PRN (Reason: Shortness Of Breath) RF: 0 Discharge Orders: Discharge Order (Routine); Ordered 06/04/21 Ordered By: Tan Chacon Admission Data Admit Date/Time: 06/03/21 16:30 Attending Provider: Tan Chacon Admit Provider: Tan Chacon Primary Care Provider: Emil Lazcano Other Providers: Tan Chacon ; Octavio Calderon ; [place] Other Interventions: Discharge Summary Assessment (RN) Last Done: 06/04/21 14:34 Coding Diagnoses Atrial fibrillation with RVR I48.91 Acute dyspnea R06.00 Abdominal pain R10.9 Elevated troponin R77.8 ESRD on hemodialysis N18.6; Z99.2 History of DVT (deep vein thrombosis) Z86.718 COPD (chronic obstructive pulmonary disease) J44.9 COPD type: unspecified COPD Memory loss or impairment R41.3 Hypothyroidism E03.9 Hypothyroidism type: acquired CAD (coronary artery disease) I25.10 Associated angina: without angina Coronary Disease-Associated Artery/Lesion type: [place] artery [place] vs. transplanted heart: [place] heart Chronic ulcer of great toe of left foot with fat layer exposed L97.522 Status post transmetatarsal amputation of right foot Z89.431 Peripheral vascular disease I73.9 Chronic GERD K21.9 CVA (cerebral vascular accident) I63.9 AV fistula I77.0 Chronic respiratory failure with hypoxia J96.[address] Z93.2
[2021-06-05] MEDS ORDERED: EPOETIN ALFA 4,000 UNIT/ML VIAL IV SCH (07:00)
[2021-06-05] MEDS ORDERED: SODIUM CHLORIDE 0.9% 1000ML 1,000 ML IV PRN (07:00)
== END 2021-06-04 18:23 | disposition home health service (06) | DRG 308 ==
LOC: 1E 10:56 → ED 10:56 → SUATTDRO 15:33 → 1E 16:19 → 2S 06-01 19:04
DX: J43.9 Emphysema, unspecified; L97.522 Non-pressure chronic ulcer of other part of left foot with fat layer exposed; B37.42 Candidal balanitis; I27.20 Pulmonary hypertension, unspecified; Z88.8 Allergy status to other drugs, medicaments and biological substances; I99.8 Other disorder of circulatory system; I50.30 Unspecified diastolic (congestive) heart failure; Z79.890 Hormone replacement therapy; F32.9 Major depressive disorder, single episode, unspecified; I25.119 Atherosclerotic heart disease of native coronary artery with unspecified angina pectoris; Z99.81 Dependence on supplemental oxygen; Z88.5 Allergy status to narcotic agent; Z89.431 Acquired absence of right foot; N18.6 End stage renal disease; Z95.1 Presence of aortocoronary bypass graft; E78.5 Hyperlipidemia, unspecified; I24.8 Other forms of acute ischemic heart disease; Z51.81 Encounter for therapeutic drug level monitoring; R06.09 Other forms of dyspnea; I70.301 Unspecified atherosclerosis of unspecified type of bypass graft(s) of the extremities, right leg; K21.9 Gastro-esophageal reflux disease without esophagitis; Z79.52 Long term (current) use of systemic steroids; R10.9 Unspecified abdominal pain; Z79.899 Other long term (current) drug therapy; Z93.2 Ileostomy status; Z79.82 Long term (current) use of aspirin; Z87.19 Personal history of other diseases of the digestive system; Z86.73 Personal history of transient ischemic attack (TIA), and cerebral infarction without residual deficits; I25.2 Old myocardial infarction; Z20.822 Contact with and (suspected) exposure to COVID-19; E03.9 Hypothyroidism, unspecified; Z79.02 Long term (current) use of antithrombotics/antiplatelets; Z86.718 Personal history of other venous thrombosis and embolism; I48.0 Paroxysmal atrial fibrillation; R41.3 Other amnesia; Z99.2 Dependence on renal dialysis; J96.11 Chronic respiratory failure with hypoxia

== ENCOUNTER 2021-08-29 10:23 | Inpatient (IN) ==
[2021-08-29] MEDS ORDERED: SODIUM CHLORIDE 0.9% 1000ML 500 ML IV ONE ×2 (11:10→15:57)
[2021-08-29] MEDS ORDERED: ONDANSETRON INJ 2 MG/ML 2 ML VIAL IV STA ×3 (11:10→15:50)
[2021-08-29] MEDS ORDERED: fentaNYL citrate 100 MCG/2 ML VIAL IV STA ×2 (11:10→15:57)
--- NOTE | 2021-08-29 11:14 | Emergency Department Note ---
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 Notes worsening abdominal pain over night with no bowel outs and increasing nausea. Exam with hyperactive bowel sounds, mild TTP entire lower abdomen and uncomfortable patient. Much improved with small dose zofran/fentanyl. CT non-con obtained which revealed pseudo-obstruction due to fecal retention just prior to ostomy. Ostomy is noted to be a bit edematous though has blood flow. Ostomy nurse attempted bowel lavage with yoon without success. Patient still with nausea requiring several further doses of medications. With continued obstruction will need to come in for further management despite several hours attempting in ED. Without vomiting and no large gastric fluids will hold off on NG tube at the moment. No fevers and his abdomen is not acute nor is there peritonitis. Prior Medical Record and Triage/Nursing Notes reviewed by Me Additional history obtained from chart Differentials:Appendicitis, infections, diverticulitis, UTI, obstruction, mesenteric ischemia, aortic pathology, inflammatory bowel disease, renal colic, PUD, pancreatitis, biliary pathology, hernia, volvulus, constipation, as well as other pathologies. Vital Signs: reviewed and remarkable for no significant abnormalities Interventions: saline lock, fentanyl 50mcg iv x 2, zofran 4mg iv x 3, nss bolus Labs:Reviewed and remarkable for no significant abnormalities Imaging:See Below EKG:Per My Interpretation: Indication Nausea: NSR 77 bpm, qtc 457. Poor baseline with nonspecific st depressions II similar to previous EKG. No Ectopy. No Ischemia. Compared to EKG 08/29/21 patient is now in NSR compared to previous AFib. Cardiac/Tele Monitoring: Cardiac Monitoring: An Order was placed for continuous cardiac monitoring. The monitor shows a rate of 70 with a normal sinus rhythm. Consults:Dr Leone advises conservative management and hospitalization. [facility] Hospitalist Dr Chacon to admit Plan: Disposition:Hospitalization. Condition: Good History of Present Illness:76 yr old male arrives for evaluation of abdominal pain. Patient notes that he has been having increasing abdominal pain since last night. Primarily bilateral lower abdomen. Associated with minimal bowel outs through ostomy and having nausea/dry heaves. No syncope, fevers, chills, back pain, rashes, leg swelling, headache, sob, nor other symptoms. History bowel obstruction 2 years ago for which he had bowel resection and ostomy placed. No recent trauma nor falls. No medications taken prior to arrival. Movement makes worse, laying still makes better. ROS: See above HPI for pertinent positives & negatives. A total of 10 systems reviewed and were otherwise negative. Past Medical History:See Below Past Surgical History:See Below Family History:See Below Social History:See Below Home Medications:See Below Allergies:See Below Vitals:Blood Pressure: 145/80, Pulse 84, RR 16, T 36.8C, O2 96% on 2L Physical Exam: GENERAL: Patient is well appearing and in mild distress. EYES: No scleral icterus, unremarkable pupils. ENT: Mucous membranes moist, no nasal congestion. NECK: No masses appreciated, nomeningismus, trachea is midline. RESPIRATORY: No dyspnea. Clear to auscultation and equal bilaterally. No wheeze, no rhonchi. CARDIOVASCULAR: Regular rate and rhythm.No murmurs, rubs, gallops appreciated. GASTROINTESTINAL: Ostomy RLQ with minimal liquid in bag, mild diffuse lower abdominal TTP, moderately hyperactive bowel sounds in lower abdomen. No overt peritonitis. BACK: No midline tenderness, no CVA tenderness EXTREMITIES: PVD with mild lower leg edema, right upper arm dialysis fistula NEUROLOGIC: Alert and oriented, no acute motor or sensory deficits, no focal weakness, cranial nerves grossly intact. SKIN: No rash, no jaundice, no diaphoresis. PSYCH: Appropriate GCS: 15 ED Course: Times/Reassessments: continued waxing/waning nausea/pain but feeling much bett er. Still no bowel outs. Torres Green MD Past Med/Surg History Medical History (Updated 08/29/21 @ 18:48 by Torres Green MD) AAA (abdominal aortic aneurysm) Acute dyspnea Acute osteomyelitis of foot Anemia, chronic renal failure AV fistula right arm CAD (coronary artery disease) Chronic back pain Chronic GERD Chronic right-sided CHF (congestive heart failure) Chronic ulcer of great toe of left foot with fat layer exposed COPD (chronic obstructive pulmonary disease) COPD (chronic obstructive pulmonary disease) CVA (cerebral vascular accident) "NO RESIDUAL EFFECTS" PER RECORDS Dependence on renal dialysis Depression Dermatitis Diastolic CHF DVT (deep venous thrombosis) Elevated troponin Encounter for central line placement GERD (gastroesophageal reflux disease) H/O: gout Hyperkalemia Hyperlipidemia Hypothyroidism Ileostomy in place 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 (Dr Sj Restrepo) Memory loss or impairment Myocardial infarct, old 2010 Necrosis of colon Orthostatic hypotension Oxygen dependent Peripheral vascular disease Skin ulcers of both feet Valvular disease S/P MVR (2010); ?AVR PER RECORDS Vitamin D deficiency Surgical History Difficult intubation B/L Anteriogram, Right femoral to anterior tibial cadaver vein bypass= 08/06/18= Grade view 4, MAC 3 --> Glidescope #3, ETT 7.5 at [facility] H/O abdominal aortic aneurysm repair 2011 H/O atoyk-cbuod-gpushjw bypass 2012 H/O mitral valve repair 2010; ?AVR PER RECORDS Hx of CABG S/P CABG X2 (DURING MVR) 2010 S/P AAA repair S/P ablation of atrial fibrillation S/P cholecystectomy S/P femoral-popliteal bypass surgery S/P MVR (mitral valve repair) Status post transmetatarsal amputation of right foot Family History Mother Essential hypertension Father , age 76 Myocardial infarction Denies family history of Colon cancer Ovarian cancer Prostate cancer Breast cancer Social History Smoking Status: Former smoker Tobacco Type: Cigarettes Years Smoked: 5; Second Hand Exposure: No; Hx Alcohol Use: No Hx Substance Use: No Preferred Language: Kinyarwanda Communication Ability: Effective Visual Impairment: No Limitations Hearing Ability: Normal Director Child Abuse Therapy Required: No Beliefs That Will Affect Care: None marital status: / marital status details: 1 daughter Current Living Situation: Family Current Living Situation Comment: sister takes care of patient and patient's mother 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 Feels Safe at Home: Yes Childhood Exposure to Second-Hand Smoke: No Dental Care, Regularly: Yes Physical Activity Frequency: Other Physical Activity Frequency Comment: Physical activity limited by patients medical conditions Seatbelt Use: always Sunscreen Use: Yes Assistive Devices: Walker and Wheelchair Allergies Allergies Allergy/AdvReac Type Severity Reaction Status Date / Time oxycodone AdvReac Severe DELIRIUM Verified 08/06/21 14:57 tramadol AdvReac Severe dizziness;a Verified 08/06/21 14:57 nxiety;sob gabapentin AdvReac Intermediate Nausea Verified 08/06/21 14:57 Home Meds Home Medications Medication Instructions Recorded Confirmed calcium acetate(phosphat bind) 667 667 mg PO TIDM 08/23/18 08/29/21 mg capsule docusate sodium 100 mg capsule 100 mg PO HS 05/31/19 08/29/21 aspirin 81 mg tablet,delayed 81 mg PO DAILY 05/01/20 08/29/21 release (Aspirin Low Dose) vitamin B complex and vitamin C 1 mg PO DAILY 05/01/20 08/29/21 no.20-folic acid 1 mg capsule (Triphrocaps) aluminum-mag hydroxide-simethicone 30 ml PO DIRECTED PRN 04/08/21 08/29/21 200 mg-200 mg-20 mg/5 mL oral susp famotidine 20 mg tablet 20 mg PO 3XWK 04/08/21 08/29/21 ipratropium 0.5 mg-albuterol 3 mg 3 ml INHALATION Q4H PRN 04/08/21 08/29/21 (2.5 mg base)/3 mL nebulization soln lidocaine 4 % topical patch 1 patch TOPICAL DAILY PRN 04/08/21 08/29/21 (Aspercreme (lidocaine)) nitroglycerin 0.4 mg sublingual 0.4 mg SUBLINGUAL DIRECTED PRN 04/08/21 08/29/21 tablet (Nitrostat) ropinirole 0.25 mg tablet 0.25 mg PO HS 04/08/21 08/29/21 sennosides 8.6 mg tablet (Senokot) 8.6 mg PO DAILY PRN 04/08/21 08/29/21 clopidogrel 75 mg tablet 75 mg PO QDL 05/31/21 08/29/21 Previous Rx's Medication Instructions Recorded atorvastatin 40 mg tablet 40 mg PO HS #90 tab 11/13/20 fluticasone furoate 200 1 inh INHALATION QAM #84 ea 11/23/20 mcg-vilanterol 25 mcg/dose inhalation powder (Breo Ellipta) levothyroxine 88 mcg tablet 88 mcg PO DAILY #90 tab 11/23/20 paroxetine HCl 20 mg tablet 20 mg PO HS #90 tab 01/21/21 tiotropium bromide 18 mcg capsule 1 cap INHALATION QAM #1 inh 03/27/21 with inhalation device (Spiriva with HandiHaler) acetaminophen 325 mg capsule 650 mg PO QID PRN #30 cap 04/13/21 diclofenac sodium 1 % topical gel 2 g TOPICAL QID #100 g 04/13/21 (Voltaren Arthritis Pain) pregabalin 75 mg capsule (Lyrica) 75 mg PO QAM #30 cap 05/15/21 Oxygen Home #1 ea 06/04/21 amiodarone 200 mg tablet 200 mg PO Q OTHER DAY #14 tab 07/11/21 pantoprazole 40 mg tablet,delayed 40 mg PO QAM #90 tab 07/11/21 release temazepam 15 mg capsule 15 mg PO HS PRN #60 cap 08/19/21 Results & Data (ED) Vital Signs Vital Signs - 24 hr 08/29/21 10:32 08/29/21 11:27 08/29/21 11:30 Temperature 36.8 C Temperature Source Oral Pulse Rate 84 76 74 Pulse Rate from SpO2 Sensor 76 74 Respiratory Rate 16 24 20 Respiratory Effort / Characteristics Non-Labored Spontaneous Respiratory Depth Normal Respiratory Pattern Regular Blood Pressure 145/80 H 136/71 Blood Pressure Mean 101 92 Blood Pressure Position Sitting Pulse Oximetry 96 100 100 Oxygen Delivery Method Nasal Cannula Nasal Cannula Nasal Cannula Oxygen Flow Rate 2 2 2 Sepsis Recent Fever Within 48 Hours No Sepsis New/Unexplained Change in Mental Status No Sepsis Action Taken by Nursing No Action Required 08/29/21 11:50 08/29/21 12:00 08/29/21 12:15 Temperature Temperature Source Pulse Rate 78 79 78 Pulse Rate from SpO2 Sensor Respiratory Rate 15 17 15 Respiratory Effort / Characteristics Respiratory Depth Respiratory Pattern Blood Pressure 173/85 H Blood Pressure Mean 114 Blood Pressure Position Pulse Oximetry 98 98 98 Oxygen Delivery Method Nasal Cannula Nasal Cannula Nasal Cannula Oxygen Flow Rate 2 2 2 Sepsis Recent Fever Within 48 Hours Sepsis New/Unexplained Change in Mental Status Sepsis Action Taken by Nursing 08/29/21 12:30 08/29/21 12:45 08/29/21 13:00 Temperature Temperature Source Pulse Rate 77 79 79 Pulse Rate from SpO2 Sensor Respiratory Rate 19 20 22 Respiratory Effort / Characteristics Respiratory Depth Respiratory Pattern Blood Pressure 162/78 H 168/81 H Blood Pressure Mean 106 110 Blood Pressure Position Pulse Oximetry 97 97 Oxygen Delivery Method Nasal Cannula Nasal Cannula Oxygen Flow Rate 2 2 Sepsis Recent Fever Within 48 Hours Sepsis New/Unexplained Change in Mental Status Sepsis Action Taken by Nursing 08/29/21 13:15 08/29/21 13:30 08/29/21 13:45 Temperature Temperature Source Pulse Rate 78 79 78 Pulse Rate from SpO2 Sensor Respiratory Rate 17 20 20 Respiratory Effort / Characteristics Respiratory Depth Respiratory Pattern Blood Pressure Blood Pressure Mean Blood Pressure Position Pulse Oximetry Oxygen Delivery Method Oxygen Flow Rate Sepsis Recent Fever Within 48 Hours Sepsis New/Unexplained Change in Mental Status Sepsis Action Taken by Nursing 08/29/21 14:00 08/29/21 14:15 08/29/21 14:30 Temperature Temperature Source Pulse Rate 78 80 82 Pulse Rate from SpO2 Sensor Respiratory Rate 20 21 15 Respiratory Effort / Characteristics Respiratory Depth Respiratory Pattern Blood Pressure Blood Pressure Mean Blood Pressure Position Pulse Oximetry 97 97 97 Oxygen Delivery Method Nasal Cannula Nasal Cannula Nasal Cannula Oxygen Flow Rate 2 2 2 Sepsis Recent Fever Within 48 Hours Sepsis New/Unexplained Change in Mental Status Sepsis Action Taken by Nursing 08/29/21 14:45 08/29/21 15:00 08/29/21 15:15 Temperature Temperature Source Pulse Rate 83 82 85 Pulse Rate from SpO2 Sensor Respiratory Rate 19 17 17 Respiratory Effort / Characteristics Respiratory Depth Respiratory Pattern Blood Pressure Blood Pressure Mean Blood Pressure Position Pulse Oximetry 99 99 97 Oxygen Delivery Method Nasal Cannula Nasal Cannula Nasal Cannula Oxygen Flow Rate 2 2 2 Sepsis Recent Fever Within 48 Hours Sepsis New/Unexplained Change in Mental Status Sepsis Action Taken by Nursing 08/29/21 15:30 08/29/21 15:45 08/29/21 16:00 Temperature Temperature Source Pulse Rate 84 84 87 Pulse Rate from SpO2 Sensor Respiratory Rate 20 16 20 Respiratory Effort / Characteristics Respiratory Depth Respiratory Pattern Blood Pressure 148/72 H 148/71 H Blood Pressure Mean 97 96 Blood Pressure Position Pulse Oximetry 97 97 Oxygen Delivery Method Nasal Cannula Nasal Cannula Oxygen Flow Rate 2 2 Sepsis Recent Fever Within 48 Hours Sepsis New/Unexplained Change in Mental Status Sepsis Action Taken by Nursing 08/29/21 16:15 08/29/21 16:30 08/29/21 16:45 Temperature Temperature Source Pulse Rate 85 81 79 Pulse Rate from SpO2 Sensor 81 79 Respiratory Rate 18 16 17 Respiratory Effort / Characteristics Respiratory Depth Respiratory Pattern Blood Pressure 170/84 H Blood Pressure Mean 112 Blood Pressure Position Pulse Oximetry 100 100 Oxygen Delivery Method Nasal Cannula Nasal Cannula Oxygen Flow Rate 2 2 Sepsis Recent Fever Within 48 Hours Sepsis New/Unexplained Change in Mental Status Sepsis Action Taken by Nursing 08/29/21 17:00 08/29/21 17:15 Temperature Temperature Source Pulse Rate 78 77 Pulse Rate from SpO2 Sensor 78 78 Respiratory Rate 17 24 Respiratory Effort / Characteristics Respiratory Depth Respiratory Pattern Blood Pressure 175/87 H Blood Pressure Mean 116 Blood Pressure Position Pulse Oximetry 100 100 Oxygen Delivery Method Nasal Cannula Nasal Cannula Oxygen Flow Rate 2 2 Sepsis Recent Fever Within 48 Hours Sepsis New/Unexplained Change in Mental Status Sepsis Action Taken by Nursing Laboratory Data Result diagrams: 08/29/21 11:30 08/29/21 11:30 Lab Results 08/29/21 08/29/21 08/29/21 Range/Units 11:23 11:23 11:30 WBC (4.8-10.8) K/uL RBC (4.7-6.1) M/uL Hgb (14.0-18.0) g/dL Hct (42-52) % MCV (80-100) fL MCH (25-34) pg MCHC (32-36) g/dL RDW Std Deviation (36.4-46.3) fL RDW Coeff of Jolanta (11.5-14.5) % Plt Count (130-400) K/uL MPV (7.4-10.4) fL Immature Gran % (Auto) % Neut % (Auto) % Lymph % (Auto) % Hanson % (Auto) % Eos % (Auto) % Baso % (Auto) % Neut # (Auto) (1.4-6.5) K/uL Lymph # (Auto) (1.2-3.4) K/uL Hanson # (Auto) (0.11-0.59) K/uL Eos # (Auto) (0-0.5) K/uL Baso # (Auto) (0-0.2) K/uL Immature Gran # (Auto) (0.00-0.02) K/uL Sodium 136 (136-145) mmol/L Potassium 4.9 (3.5-5.1) mmol/L Chloride 97 L (98-107) mmol/L Carbon Dioxide 33 H (21-32) mmol/L Anion Gap 6.0 (3-11) BUN 22 H (7-18) mg/dl Creatinine 6.67 H* (0.6-1.4) mg/dl Est Cr Clr Drug Dosing Not Reportable Est GFR ( Amer) 8.5 ml/min Est GFR (Non-Af Amer) 7.3 ml/min BUN/Creatinine Ratio 3.3 L (10-20) Glucose 106 H (70-99) mg/dl Calcium 9.8 (8.5-10.1) mg/dl Magnesium 2.1 (1.8-2.4) mg/dl Total Bilirubin 0.9 (0.2-1) mg/dl Direct Bilirubin 0.3 H (0-0.2) mg/dl AST 21 (15-37) U/L ALT 28 (12-78) U/L Alkaline Phosphatase 173 H (45-117) U/L Total Protein 7.7 (6.4-8.2) gm/dl Albumin 3.5 (3.4-5.0) gm/dl Lipase 210 (73-393) U/L TSH 1.220 (0.300-4.500) uIu/ml COVID-19 Eval Order Covid19 at [facility] SARS-CoV-2 (PCR) NEGATIVE (Negative) 08/29/21 Range/Units 11:30 WBC 13.08 H (4.8-10.8) K/uL RBC 3.90 L (4.7-6.1) M/uL Hgb 12.8 L (14.0-18.0) g/dL Hct 39.6 L (42-52) % MCV 101.5 H (80-100) fL MCH 32.8 (25-34) pg MCHC 32.3 (32-36) g/dL RDW Std Deviation 58.4 H (36.4-46.3) fL RDW Coeff of Jolanta 15.8 H (11.5-14.5) % Plt Count 156 (130-400) K/uL MPV 9.2 (7.4-10.4) fL Immature Gran % (Auto) 0.3 % Neut % (Auto) 81.4 % Lymph % (Auto) 7.9 % Hanson % (Auto) 8.5 % Eos % (Auto) 1.7 % Baso % (Auto) 0.2 % Neut # (Auto) 10.66 H (1.4-6.5) K/uL Lymph # (Auto) 1.03 L (1.2-3.4) K/uL Hanson # (Auto) 1.11 H (0.11-0.59) K/uL Eos # (Auto) 0.22 (0-0.5) K/uL Baso # (Auto) 0.02 (0-0.2) K/uL Immature Gran # (Auto) 0.04 H (0.00-0.02) K/uL Sodium (136-145) mmol/L Potassium (3.5-5.1) mmol/L Chloride (98-107) mmol/L Carbon Dioxide (21-32) mmol/L Anion Gap (3-11) BUN (7-18) mg/dl Creatinine (0.6-1.4) mg/dl Est Cr Clr Drug Dosing Est GFR ( Amer) ml/min Est GFR (Non-Af Amer) ml/min BUN/Creatinine Ratio (10-20) Glucose (70-99) mg/dl Calcium (8.5-10.1) mg/dl Magnesium (1.8-2.4) mg/dl Total Bilirubin (0.2-1) mg/dl Direct Bilirubin (0-0.2) mg/dl AST (15-37) U/L ALT (12-78) U/L Alkaline Phosphatase (45-117) U/L Total Protein (6.4-8.2) gm/dl Albumin (3.4-5.0) gm/dl Lipase (73-393) U/L TSH (0.300-4.500) uIu/ml COVID-19 Eval Order SARS-CoV-2 (PCR) (Negative) Administered Medications Discontinued Medications Fentanyl Citrate (Fentanyl Citrate 100 Mcg/2 Ml Vial) 50 mcg IV NOW STA Stop: 08/29/21 11:11 Last Admin: 08/29/21 11:19 Dose: 50 mcg Documented by: [id number] Fentanyl Citrate (Fentanyl Citrate 100 Mcg/2 Ml Vial) 50 mcg IV NOW STA Stop: 08/29/21 15:58 Last Admin: 08/29/21 16:23 Dose: 50 mcg Documented by: [id number] Sodium Chloride (Nss 1000ml) 500 mls @ 999 mls/hr IV .Q31M ONE Stop: 08/29/21 11:40 Last Infusion: 08/29/21 11:51 Dose: 0 mls/hr Documented by: [id number] Admin: 08/29/21 11:20 Dose: 999 mls/hr Documented by: [id number] Sodium Chloride (Nss 1000ml) 500 mls @ 999 mls/hr IV .Q31M ONE Stop: 08/29/21 16:27 Last Infusion: 08/29/21 17:23 Dose: 0 mls/hr Documented by: [id number] Admin: 08/29/21 16:26 Dose: 999 mls/hr Documented by: [id number] Lactulose (Lactulose Syrup 20 Gm/30 Ml Udc) 20 gm PO NOW ONE Stop: 08/29/21 12:29 Last Admin: 08/29/21 15:39 Dose: Not Given Documented by: [id number] Ondansetron HCl (Ondansetron Inj 2 Mg/Ml 2 Ml Vial) 4 mg IV NOW STA Stop: 08/29/21 11:11 Last Admin: 08/29/21 11:19 Dose: 4 mg Documented by: [id number] Ondansetron HCl (Ondansetron Inj 2 Mg/Ml 2 Ml Vial) 4 mg IV NOW STA Stop: 08/29/21 13:51 Last Admin: 08/29/21 13:52 Dose: 4 mg Documented by: [id number] Ondansetron HCl (Ondansetron Inj 2 Mg/Ml 2 Ml Vial) Confirm Administered Dose 4 mg .ROUTE .STK-MED ONE Stop: 08/29/21 13:52 Last Admin: 08/29/21 15:39 Dose: Not Given Documented by: [id number] Ondansetron HCl (Ondansetron Inj 2 Mg/Ml 2 Ml Vial) 4 mg IV NOW STA Stop: 08/29/21 15:51 Last Admin: 08/29/21 16:23 Dose: 4 mg Documented by: [id number] Polyethylene Glycol/Electrolytes (Lavage Solution 4000ml) 1 dose PO UD STA Stop: 08/29/21 13:34 Last Admin: 08/29/21 15:39 Dose: Not Given Documented by: [id number] Sodium Biphosphate/Sodium Phosphate (Sod Phosphate/Sod Biphosphate Enema 132 Ml Btl) 132 ml HI NOW STA Stop: 08/29/21 12:29 Last Admin: 08/29/21 15:38 Dose: Not Given Documented by: [id number] Imaging Data Radiologist's Impression: Abdomen/Pelvis CT 08/29/21 11:10 CT abd pelvis wo con CLINICAL HISTORY: Abdominal pain with nausea and vomiting. History of previous bowel obstructions. Patient reports no output from his ostomy. COMPARISON STUDY: 05/17/2021 CT DOSE: 1050.26 mGycm TECHNIQUE: Standard CT of the Abdomen and Pelvis was performed without IV contr ast. A dose lowering technique was utilized adhering to the principles of ALARA. FINDINGS: Lung base: There is colonic pleural thickening posteriorly on the right with scarring present. Lung bases are otherwise clear. There is again mild cardiome tim and coronary artery calcification. Abdominal cavity and bowel: The patient is again status post colectomy with ileostomy seen in the right lower quadrant. Compared to previous examination, there is now fecal impaction present within the distal ileum and within the ileo stomy as it extends into the subcutaneous fat. This produces pseudoobstruction with mild to moderate dilatation of the remaining small bowel loops. Fluid levels are present throughout the small bowel. However, there is no evidence for mucosal edema or inflammatory change. There is no evidence for free air. There is no evidence for abdominal mass, adenopathy or ascites. Liver: The liver is homogeneous in attenuation on these limited noncontrast images.. Spleen: The spleen is homogeneous in attenuation on these limited noncontrast images. Pancreas: The pancreas is homogeneous in attenuation on these limited noncontrast images. Gall Bladder: Surgical clips are again seen from previous cholecystectomy. Adrenal glands: The adrenal glands are normal in size and attenuation on these limited noncontrast images. Kidneys: There is again atrophy of the kidneys bilaterally, left greater than right with numerous bilateral renal cysts again seen. There has been interval resolution of previously identified bilateral hydronephrosis. Bladder: The bladder is partially contracted with diffuse thickening of the bladder wall most characteristic of chronic bladder outlet obstruction. The presence of a bladder mass cannot be excluded based on this study as there is no IV contrast within the bladder. : There is no evidence for pelvic mass or adenopathy. There is mild to moderate prostate enlargement. Vasculature:An aortobiiliac stent is in place. Extensive atherosclerotic calcification is present. Osseous structures: There is no acute osseous pathology. Old L2 compression fractures again seen. Extensive degenerative changes are also again seen. IMPRESSION: 1. Interval development of fecal impaction within the distal ileum and extending into the subcutaneous fat related to the patient's ileostomy. This produces pseudoobstruction with mild to moderate dilatation of the remaining small bowel loops. Fluid levels are present. No mucosal edema or inflammatory changes are present. 2. Additional nonacute findings as delineated above. Emergency department will be called with results of the study. ACT 112: Negative or not required by law. Electronically signed by: Aydin Fine M.D. 08/29/2021 12:07 PM Discharge Plan Visit Data Chief Complaint: GI Assessment Stated Complaint: BLOCKED CATHETER ED Provider: Torres Green Discharge Problem: Acute pseudo-obstruction of bowel, Fecal impaction Patient Disposition: Admitted As Inpatient Discharge Instructions Interventions: ED Discharge Assessment Last Done: 08/29/21 18:37
[2021-08-29 11:36] LABS: Basophils # (auto) 0.02 K/uL (0-0.2); Basophils % (auto) 0.2 %; Eosinophils # (auto) 0.22 K/uL (0-0.5); Eosinophils % (auto) 1.7 %; Hematocrit (blood only) 39.6 % (42-52); Hemoglobin 12.8 g/dL (14.0-18.0); Immature Granulocytes # (auto) 0.04 K/uL (0.00-0.02); Immature Granulocytes % (auto) 0.3 %; Lymphocytes # (auto) 1.03 K/uL (1.2-3.4); Lymphocytes % (auto) 7.9 %; Mean Corpuscular Hemoglobin 32.8 pg (25-34); Mean Corpuscular Hgb Conc 32.3 g/dL (32-36); Mean Corpuscular Volume 101.5 fL (80-100); Mean Platelet Volume 9.2 fL (7.4-10.4); Monocytes # (auto) 1.11 K/uL (0.11-0.59); Monocytes % (auto) 8.5 %; Neutrophils # (auto) 10.66 K/uL (1.4-6.5); Neutrophils % (auto) 81.4 %; Platelet Count 156 K/uL (130-400); RDW Coefficient of Variation 15.8 % (11.5-14.5); RDW Standard Deviation 58.4 fL (36.4-46.3); White Blood Count 13.08 K/uL (4.8-10.8)
--- NOTE | 2021-08-29 12:08 | CT Scan Report ---
CT abd pelvis wo con CLINICAL HISTORY: Abdominal pain with nausea and vomiting. History of previous bowel obstructions. Luis Manuel chaudhari reports no output from his ostomy. COMPARISON STUDY: 05/17/2021 CT DOSE: 1050.26 mGycm TECHNIQUE: Standard CT of the Abdomen and Pelvis was performed without IV contrast. A dose lowering technique was utilized adhering to the principles of ALARA. FINDINGS: Lung base: There is colonic pleural thickening posteriorly on the right with scarring present. Lung bases are otherwise clear. There is again mild cardiomegaly and coronary artery calcification. Abdominal cavity and bowel: The patient is again status post colectomy with ileostomy seen in the rig ht lower quadrant. Compared to previous examination, there is now fecal impaction present within the distal ileum and within the ileostomy as it extends into the subcutaneous fat. This produces pseudoob struction with mild to moderate dilatation of the remaining small bowel loops. Fluid levels are prese nt throughout the small bowel. However, there is no evidence for mucosal edema or inflammatory change . There is no evidence for free air. There is no evidence for abdominal mass, adenopathy or ascites. Liver: The liver is homogeneous in attenuation on these limited noncontrast images.. Spleen: The spleen is homogeneous in attenuation on these limited noncontrast images. Pancreas: The pancreas is homogeneous in attenuation on these limited noncontrast images. Gall Bladder: Surgical clips are again seen from previous cholecystectomy. Adrenal glands: The adrenal glands are normal in size and attenuation on these limited noncontrast i mages. Kidneys: There is again atrophy of the kidneys bilaterally, left greater than right with numerous natalya ateral renal cysts again seen. There has been interval resolution of previously identified bilateral hydronephrosis. Bladder: The bladder is partially contracted with diffuse thickening of the bladder wall most charact eristic of chronic bladder outlet obstruction. The presence of a bladder mass cannot be excluded base d on this study as there is no IV contrast within the bladder. : There is no evidence for pelvic mass or adenopathy. There is mild to moderate prostate enlargemen t. Vasculature:An aortobiiliac stent is in place. Extensive atherosclerotic calcification is present. Osseous structures: There is no acute osseous pathology. Old L2 compression fractures again seen. Ex tensive degenerative changes are also again seen. IMPRESSION: 1. Interval development of fecal impaction within the distal ileum and extending into the subcutaneou s fat related to the patient's ileostomy. This produces pseudoobstruction with mild to moderate dilat ation of the remaining small bowel loops. Fluid levels are present. No mucosal edema or inflammatory changes are present. 2. Additional nonacute findings as delineated above. Emergency department will be called with results of the study. ACT 112: Negative or not required by law. Electronically signed by: Aydin Fine M.D. 08/29/2021 12:07 PM
[2021-08-29 12:25] LABS: Alanine Aminotransferase 28 U/L (12-78); Albumin Level 3.5 gm/dl (3.4-5.0); Alkaline Phosphatase 173 U/L (45-117); Aspartate Aminotransferase 21 U/L (15-37); BUN Creatinine Ratio 3.3 (10-20); Bilirubin Direct 0.3 mg/dl (0-0.2); Bilirubin,Total 0.9 mg/dl (0.2-1); Blood Urea Nitrogen 22 mg/dl (7-18); Calcium 9.8 mg/dl (8.5-10.1); Carbon Dioxide 33 mmol/L (21-32); Chloride 97 mmol/L (98-107); Est GFR (African American) 8.5 ml/min; Est GFR (Non-African American) 7.3 ml/min; Glucose 106 mg/dl (70-99); Lipase 210 U/L (73-393); Magnesium 2.1 mg/dl (1.8-2.4); Potassium 4.9 mmol/L (3.5-5.1); Sodium 136 mmol/L (136-145); Total Protein 7.7 gm/dl (6.4-8.2)
[2021-08-29] MEDS ORDERED: SOD PHOSPHATE/SOD BIPHOSPHATE ENEMA 132 ML BTL PR STA (12:28)
[2021-08-29] MEDS ORDERED: LACTULOSE SYRUP 20 GM/30 ML UDC PO ONE (12:28)
[2021-08-29] MEDS ORDERED: LAVAGE SOLUTION 4000ML PO STA (13:33)
[2021-08-29] MEDS ORDERED: ONDANSETRON INJ 2 MG/ML 2 ML VIAL ONE (13:51)
--- NOTE | 2021-08-29 14:02 | Electrocardiogram Report ---
Test Reason : Blood Pressure : / mmHG Vent. Rate : 077 BPM Atrial Rate : 077 BPM P-R Int : 294 ms QRS Dur : 102 ms QT Int : 404 ms P-R-T Axes : -14 065 048 degrees QTc Int : 457 ms Sinus rhythm with 1st degree A-V block Nonspecific ST and T wave abnormality Abnormal ECG When compared with ECG of 31-MAY-2021 11:06, Sinus rhythm has replaced Atrial fibrillation Nonspecific T wave abnormality now evident in Inferior leads Confirmed by Brian Calderon ([id number]) on 08/29/2021 2:02:22 PM Referred By: REFERRED SELF Confirmed By:Randall Calderon
[2021-08-29] MEDS ORDERED: SODIUM CHLORIDE 0.9% 1000ML 1,000 ML IV SCH (16:00)
--- NOTE | 2021-08-29 16:36 | History & Physical Report ---
Date of Service August 29, 2021 Assessment & Plan (1) Acute pseudo-obstruction of bowel: Plan: Fecal impaction noted in the distal ileum on CT with extension of that stool into the ileostomy. Upstream bowels are dilated with resulting pseudo-obstruction. General surgery consult appreciated. They advise IV antibiotics - will place on IV unasyn. Defer on fluids given ESRD status. Pain meds prn. KUB x-ray in am. (2) Ileostomy in place: Plan: Created in 2018 following episode of severe ischemic colitis requiring subtotal colectomy. See #1 above. (3) Chronic respiratory failure with hypoxia: Plan: On home O2, 2 liters continuously. stable. No evidence of complicating pneumonia, volume overload, etc. COVID negative. (4) Hypothyroidism: Plan: TSH today wnl. Cont synthroid. (5) ESRD (end stage renal disease) on dialysis: Plan: Dialyzes at [facility] in [place]. [facility] manages. Schedule - M/W/. RUE AV fistula. Will consult [facility]. (6) COPD (chronic obstructive pulmonary disease): Plan: Stable. On home o2. No exacerbation. Cont home inhalers. (7) Chronic right-sided CHF (congestive heart failure): Plan: Compensated today. Defer on IVF given his cor pulmonale and ESRD. (8) CAD (coronary artery disease): Plan: No ischemic symptoms at this time. Cont asa, plavix. Cont statin. (9) GERD (gastroesophageal reflux disease): Plan: He takes both H2 maxim and PPI. Continue both - give IV. (10) Atrial fibrillation: Plan: Cont amiodarone QOD. (11) DVT prophylaxis: Plan: Heparin 5000 BID History of Present Illness Chief Complaint: abdominal pain, nausea, poor output from ileostomy Primary Care Provider: Emil Lazcano MD 76yo male with ESRD on HD M/W/F ([facility], follows with [facility] - Dr Christina Landrum), h/o 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 Patient states he was in his usual health yesterday. 11/3 AM he ate breakfast and remembers having normal stool output at that time. He went to dialysis yesterday in normal fashion. After getting home he didn't eat much but that it typical for him post-dialysis. About 11pm yesterday he did have some ileostomy output but it was significantly reduced relative to his normal output. He noted some stomach upset. He went to bed, and about 0330 he awoke with significant abdominal pain near his ostomy site. He had associated nausea. He checked his ostomy and he had NO output in the bag. He tried drinking tea to encourage GI transit and stool output but this had no effect. The pain persisted for the remainder of the night/this am prompting his visit to [facility]. He has had dry heaves this am and was unable to eat anything at home today. In the ER a CT a/p showed pseudo-obstruction of the small intestines due to fecal impaction in his ileum. A yoon was placed into the stoma and go-lytely was given without any effect. He required multiple doses of antiemetics in the ER along with pain medication. Allergies Allergy/AdvReac Type Severity Reaction Status Date / Time oxycodone AdvReac Severe DELIRIUM Verified 08/06/21 14:57 tramadol AdvReac Severe dizziness;a Verified 08/06/21 14:57 nxiety;sob gabapentin AdvReac Intermediate Nausea Verified 08/06/21 14:57 Home Medications Medication Instructions Recorded Confirmed Type calcium acetate(phosphat bind) 667 667 mg PO TIDM 08/23/18 08/29/21 History mg capsule docusate sodium 100 mg capsule 100 mg PO HS 05/31/19 08/29/21 History aspirin 81 mg tablet,delayed 81 mg PO DAILY 05/01/20 08/29/21 History release (Aspirin Low Dose) vitamin B complex and vitamin C 1 mg PO DAILY 05/01/20 08/29/21 History no.20-folic acid 1 mg capsule (Triphrocaps) atorvastatin 40 mg tablet 40 mg PO HS #90 tab 11/13/20 08/29/21 Rx fluticasone furoate 200 1 inh INHALATION QAM #84 ea 11/23/20 08/29/21 Rx mcg-vilanterol 25 mcg/dose inhalation powder (Breo Ellipta) levothyroxine 88 mcg tablet 88 mcg PO DAILY #90 tab 11/23/20 08/29/21 Rx paroxetine HCl 20 mg tablet 20 mg PO HS #90 tab 01/21/21 08/29/21 Rx tiotropium bromide 18 mcg capsule 1 cap INHALATION QAM #1 inh 03/27/21 08/29/21 Rx with inhalation device (Spiriva with HandiHaler) aluminum-mag hydroxide-simethicone 30 ml PO DIRECTED PRN 04/08/21 08/29/21 History 200 mg-200 mg-20 mg/5 mL oral susp famotidine 20 mg tablet 20 mg PO 3XWK 04/08/21 08/29/21 History ipratropium 0.5 mg-albuterol 3 mg 3 ml INHALATION Q4H PRN 04/08/21 08/29/21 History (2.5 mg base)/3 mL nebulization soln lidocaine 4 % topical patch 1 patch TOPICAL DAILY PRN 04/08/21 08/29/21 History (Aspercreme (lidocaine)) nitroglycerin 0.4 mg sublingual 0.4 mg SUBLINGUAL DIRECTED PRN 04/08/21 08/29/21 History tablet (Nitrostat) ropinirole 0.25 mg tablet 0.25 mg PO HS 04/08/21 08/29/21 History sennosides 8.6 mg tablet (Senokot) 8.6 mg PO DAILY PRN 04/08/21 08/29/21 History acetaminophen 325 mg capsule 650 mg PO QID PRN #30 cap 04/13/21 08/29/21 Rx diclofenac sodium 1 % topical gel 2 g TOPICAL QID #100 g 04/13/21 08/29/21 Rx (Voltaren Arthritis Pain) pregabalin 75 mg capsule (Lyrica) 75 mg PO QAM #30 cap 05/15/21 08/29/21 Rx clopidogrel 75 mg tablet 75 mg PO QDL 05/31/21 08/29/21 History Oxygen Home #1 ea 06/04/21 08/06/21 Rx amiodarone 200 mg tablet 200 mg PO Q OTHER DAY #14 tab 07/11/21 08/29/21 Rx pantoprazole 40 mg tablet,delayed 40 mg PO QAM #90 tab 07/11/21 08/29/21 Rx release temazepam 15 mg capsule 15 mg PO HS PRN #60 cap 08/19/21 08/29/21 Rx Past Med/Surg History Medical History (Updated 08/29/21 @ 20:34 by Tan Chacon) AAA (abdominal aortic aneurysm) Acute dyspnea Acute osteomyelitis of foot Anemia, chronic renal failure AV fistula right arm CAD (coronary artery disease) Chronic back pain Chronic GERD Chronic right-sided CHF (congestive heart failure) Chronic ulcer of great toe of left foot with fat layer exposed COPD (chronic obstructive pulmonary disease) COPD (chronic obstructive pulmonary disease) CVA (cerebral vascular accident) "NO RESIDUAL EFFECTS" PER RECORDS Dependence on renal dialysis Depression Dermatitis Diastolic CHF DVT (deep venous thrombosis) Elevated troponin Encounter for central line placement GERD (gastroesophageal reflux disease) H/O: gout Hyperkalemia Hyperlipidemia Hypothyroidism Ileostomy in place 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 (Dr Sj Restrepo) Memory loss or impairment Myocardial infarct, old 2010 Necrosis of colon Orthostatic hypotension Oxygen dependent Peripheral vascular disease Skin ulcers of both feet Valvular disease S/P MVR (2010); ?AVR PER RECORDS Vitamin D deficiency Surgical History Difficult intubation B/L Anteriogram, Right femoral to anterior tibial cadaver vein bypass= 08/06/18= Grade view 4, MAC 3 --> Glidescope #3, ETT 7.5 at [facility] H/O abdominal aortic aneurysm repair 2011 H/O parld-vtqxe-erjkfow bypass 2012 H/O mitral valve repair 2010; ?AVR PER RECORDS Hx of CABG S/P CABG X2 (DURING MVR) 2010 S/P AAA repair S/P ablation of atrial fibrillation S/P cholecystectomy S/P femoral-popliteal bypass surgery S/P MVR (mitral valve repair) Status post transmetatarsal amputation of right foot Family History Mother Essential hypertension Father , age 76 Myocardial infarction Denies family history of Colon cancer Ovarian cancer Prostate cancer Breast cancer Social History Smoking Status: Former smoker Tobacco Type: Cigarettes Years Smoked: 5; Second Hand Exposure: No; Hx Alcohol Use: No Hx Substance Use: No Preferred Language: Kyrgyz Communication Ability: Effective Visual Impairment: No Limitations Hearing Ability: Normal Industrial Relations Worker Required: No Beliefs That Will Affect Care: None marital status: / marital status details: 1 daughter Current Living Situation: Family Current Living Situation Comment: sister takes care of patient and patient's mother 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 Feels Safe at Home: Yes Childhood Exposure to Second-Hand Smoke: No Dental Care, Regularly: Yes Physical Activity Frequency: Other Physical Activity Frequency Comment: Physical activity limited by patients medical conditions Seatbelt Use: always Sunscreen Use: Yes Assistive Devices: Walker and Wheelchair Review of Systems Review of Systems: Gen - no fevers, no chills; fatigue (chronic); lack of appetite today Eyes - no visual change HENT - no sore throat or nasal congestion; has chronic rhinorrhea Neck - chronic neck pain with headaches Pulm - chronic dyspnea on exertion (2-3 feet of walking leads to such); no cough CV - no chest pains GI - dry heaves, nausea, abd pain, decreased stool output from ostomy - does not make urine (ESRD) Musculo - denies joint pains Skin - chronic rashes on shins/feet Psych - denies depression Endo - no diabetes Heme - easy bruising Neuro - chronic headaches Physical Exam Physical Exam: Gen - NAD, awake, alert Skin - dry skin on face; stasis changes b/l shins; occasional abrasion/ulceration on madden; tiny abrasions/ulcers on toes of L foot Eyes - PERRL HENT - TMs not seen b/l due to cerumen, mouth - MM dry Neck - no JVD Heart - RRR, s1 s2, 2/6 FIDELIA LUSB; AV fistula RUE with bruit Lungs - hint of end-exp wheeze b/l, no rales, no increased work of breathing Abd - distended, BS+, no tenderness, stoma right abdomen is pink, no stool in ostomy bag; no HSM Ext - pulses b/l feet <1+; no edema Musculo - TMA right foot all toes Neuro - strength 5/5 x 4 exts; DTRs 2+ b/l Lymph - no cervical lymph nodes Results & Data Results & Data ([facility]) Vital Signs (Past 12 Hours) Vital Signs Temp Pulse Resp BP Pulse Ox 08/29/21 16:30 81 16 170/84 H 100 08/29/21 16:15 85 18 08/29/21 16:00 87 20 148/71 H 97 08/29/21 15:45 84 16 08/29/21 15:30 84 20 148/72 H 97 08/29/21 15:15 85 17 97 08/29/21 15:00 82 17 99 08/29/21 14:45 83 19 99 08/29/21 14:30 82 15 97 08/29/21 14:15 80 21 97 08/29/21 14:00 78 20 97 08/29/21 13:45 78 20 08/29/21 13:30 79 20 08/29/21 13:15 78 17 08/29/21 13:00 79 22 168/81 H 08/29/21 12:45 79 20 97 08/29/21 12:30 77 19 162/78 H 97 08/29/21 12:15 78 15 173/85 H 98 08/29/21 12:00 79 17 98 08/29/21 11:50 78 15 98 08/29/21 11:30 74 20 136/71 100 08/29/21 11:27 76 24 100 08/29/21 10:32 36.8 C 84 16 145/80 H 96 Laboratory Results Laboratory Results - last 24 hr 08/29/21 08/29/21 08/29/21 11:23 11:23 11:30 WBC RBC Hgb Hct MCV MCH MCHC RDW Std Deviation RDW Coeff of Jolanta Plt Count MPV Immature Gran % (Auto) Neut % (Auto) Lymph % (Auto) [place] % (Auto) Eos % (Auto) Baso % (Auto) Neut # (Auto) Lymph # (Auto) [place] # (Auto) Eos # (Auto) Baso # (Auto) Immature Gran # (Auto) Sodium 136 Potassium 4.9 Chloride 97 L Carbon Dioxide 33 H Anion Gap 6.0 BUN 22 H Creatinine 6.67 H* Est Cr Clr Drug Dosing Not Reportable Est GFR ( Amer) 8.5 Est GFR (Non-Af Amer) 7.3 BUN/Creatinine Ratio 3.3 L Glucose 106 H Calcium 9.8 Magnesium 2.1 Total Bilirubin 0.9 Direct Bilirubin 0.3 H AST 21 ALT 28 Alkaline Phosphatase 173 H Total Protein 7.7 Albumin 3.5 Lipase 210 TSH 1.220 COVID-19 Eval Order Covid19 at [facility] SARS-CoV-2 (PCR) NEGATIVE 08/29/21 11:30 WBC 13.08 H RBC 3.90 L Hgb 12.8 L Hct 39.6 L MCV 101.5 H MCH 32.8 MCHC 32.3 RDW Std Deviation 58.4 H RDW Coeff of Jolanta 15.8 H Plt Count 156 MPV 9.2 Immature Gran % (Auto) 0.3 Neut % (Auto) 81.4 Lymph % (Auto) 7.9 [place]eadle % (Auto) 8.5 Eos % (Auto) 1.7 Baso % (Auto) 0.2 Neut # (Auto) 10.66 H Lymph # (Auto) 1.03 L [place] # (Auto) 1.11 H Eos # (Auto) 0.22 Baso # (Auto) 0.02 Immature Gran # (Auto) 0.04 H Sodium Potassium Chloride Carbon Dioxide Anion Gap BUN Creatinine Est Cr Clr Drug Dosing Est GFR ( Amer) Est GFR (Non-Af Amer) BUN/Creatinine Ratio Glucose Calcium Magnesium Total Bilirubin Direct Bilirubin AST ALT Alkaline Phosphatase Total Protein Albumin Lipase TSH COVID-19 Eval Order SARS-CoV-2 (PCR) Diagnostic Findings Abdomen/Pelvis CT 08/29/21 11:10 CT abd pelvis wo con CLINICAL HISTORY: Abdominal pain with nausea and vomiting. History of previous bowel obstructions. Patient reports no output from his ostomy. COMPARISON STUDY: 05/17/2021 CT DOSE: 1050.26 mGycm TECHNIQUE: Standard CT of the Abdomen and Pelvis was performed without IV contrast. A dose lowering technique was utilized adhering to the principles of ALARA. FINDINGS: Lung base: There is colonic pleural thickening posteriorly on the right with scarring present. Lung bases are otherwise clear. There is again mild cardiomegaly and coronary artery calcification. Abdominal cavity and bowel: The patient is again status post colectomy with ileostomy seen in the right lower quadrant. Compared to previous examination, there is now fecal impaction present within the distal ileum and within the ileostomy as it extends into the subcutaneous fat. This produces pseudoobstruction with mild to moderate dilatation of the remaining small bowel loops. Fluid levels are present throughout the small bowel. However, there is no evidence for mucosal edema or inflammatory change. There is no evidence for free air. There is no evidence for abdominal mass, adenopathy or ascites. Liver: The liver is homogeneous in attenuation on these limited noncontrast images.. Spleen: The spleen is homogeneous in attenuation on these limited noncontrast images. Pancreas: The pancreas is homogeneous in attenuation on these limited noncontrast images. Gall Bladder: Surgical clips are again seen from previous cholecystectomy. Adrenal glands: The adrenal glands are normal in size and attenuation on these limited noncontrast images. Kidneys: There is again atrophy of the kidneys bilaterally, left greater than right with numerous bilateral renal cysts again seen. There has been interval resolution of previously identified bilateral hydronephrosis. Bladder: The bladder is partially contracted with diffuse thickening of the bladder wall most characteristic of chronic bladder outlet obstruction. The presence of a bladder mass cannot be excluded based on this study as there is no IV contrast within the bladder. : There is no evidence for pelvic mass or adenopathy. There is mild to moderate prostate enlargement. Vasculature:An aortobiiliac stent is in place. Extensive atherosclerotic calcification is present. Osseous structures: There is no acute osseous pathology. Old L2 compression fractures again seen. Extensive degenerative changes are also again seen. IMPRESSION: 1. Interval development of fecal impaction within the distal ileum and extending into the subcutaneous fat related to the patient's ileostomy. This produces pseudoobstruction with mild to moderate dilatation of the remaining small bowel loops. Fluid levels are present. No mucosal edema or inflammatory changes are present. 2. Additional nonacute findings as delineated above. Emergency department will be called with results of the study. ACT 112: Negative or not required by law. Electronically signed by: Aydin Fine M.D. 08/29/2021 12:07 PM Code Status & VTE Plan Code Status full code PG Care Time/CCT Total # of Minutes Spent Total Time Spent with Patient: Total time spent is greater than 50% in coordination of care (as documented) at patient's floor/unit and/or counseling patient: Coding Level of Care Code 19099 Initial Inpt Care Lvl 3 Diagnoses Acute pseudo-obstruction of bowel K59.[address] Z93.2 Chronic respiratory failure with hypoxia J96.11 Hypothyroidism E03.9 ESRD (end stage renal disease) on dialysis N18.6; Z99.2 COPD (chronic obstructive pulmonary disease) J44.9 Chronic right-sided CHF (congestive heart failure) I50.812 CAD (coronary artery disease) I25.10 Associated angina: without angina Coronary Disease-Associated Artery/Lesion type: [place] artery [place] vs. transplanted heart: [place]upiat heart GERD (gastroesophageal reflux disease) K21.9 DVT prophylaxis Z29.9 Atrial fibrillation I48.91 (1) CAD (coronary artery disease) Associated angina: without angina Coronary Disease-Associated Artery/Lesion type: [place] artery [place] vs. transplanted heart: [place] heart Qualified Code(s): I25.10 - Atherosclerotic heart disease of in[place] coronary artery without angina pectoris
--- NOTE | 2021-08-29 18:27 | Surgery Consultation ---
Date of Consultation August 29, 2021 Assessment & Plan (1) Acute pseudo-obstruction of bowel: pt is a 76 year-old male who presents with ER with abdominal pain, IMP: Acute pseudo-obstruction of bowel, plan, no emergent surgery indication now, hospitalist will admit pt to hospital, conservative treatment, NPO, IV fluid, antibiotic, control pain, may need NG tube if worse abdominal pain, repeat labs KUB in morning, consult nephrology consult for renal failure, will F/U, History of Present Illness Reason for Consultation: SBO Requesting Physician: Torres Dawkins History of Present Illness History of Present Illness Chief Complaint: abdominal pain, nausea, poor output from ileostomy Primary Care Provider: Emil Lazcano MD 76yo male with ESRD on HD M/W/F ([place], follows with [facility] - Dr Christina Landrum), h/o 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 Patient states he was in his usual health yesterday. 11/3 AM he ate breakfast and remembers having normal stool output at that time. He went to dialysis yesterday in normal fashion. After getting home he didn't eat much but that it typical for him post-dialysis. About 11pm yesterday he did have some ileostomy output but it was significantly reduced relative to his normal output. He noted some stomach upset. He went to bed, and about 0330 he awoke with significant abdominal pain near his ostomy site. He had associated nausea. He checked his ostomy and he had NO output in the bag. He tried drinking tea to encourage GI transit and stool output but this had no effect. The pain persisted for the remainder of the night/this am prompting his visit to [facility]. He has had dry heaves this am and was unable to eat anything at home today. In the ER a CT a/p showed pseudo-obstruction of the small intestines due to fecal impaction in his ileum. A yoon was placed into the stoma and go-lytely was given without any effect. He required multiple doses of antiemetics in the ER along with pain medication. I ( marii Leone MD ) got a call for consult SBO, I reviewed pt's H/P, labs, CT scan with pt, Allergies Allergy/AdvReac Type Severity Reaction Status Date / Time oxycodone AdvReacB Severe DELIRIUM Verified 08/06/21 14:57 tramadol AdvReac Severe dizziness;a Verified 08/06/21 14:57 nxiety;sob gabapentin AdvReac Intermediate Nausea Verified 08/06/21 14:57 Home Medications Medication Instructions Recorded Confirmed Type calcium acetate(phosphat bind) 667 667 mg PO TIDM 08/23/1808/29 History mg capsule docusate sodium 100 mg capsule 100 mg PO HSA 05/31/19 08/29/21 History aspirin 81 mg tablet,delayed 81 mg PO DAILY 05/01/20 08/29/21 Hi story release (Aspirin Low Dose) vitamin B complex and vitamin C 1 mg PO DAILY 05/01/20 08/29/21 History no.20-folic acid 1 mg capsule (Triphrocaps) atorvastatin 40 mg tablet 40 mg PO HS #90 tab 11/13/20 08/29/21 Rx fluticasone furoate 200 1 inh INHALATION QAM #84 ea 11/23/20 08/29/21 Rx mcg-vilanterol 25 mcg/dose inhalation powder (Breo Ellipta) levothyroxine 88 mcg tablet 88 mcg PO DAILY #90 tab 11/23/20 08/29/21 Rx paroxetine HCl 20 mg tablet 20 mg PO HS #90 tab 01/21/21 08/29/21 Rx tiotropium bromide 18 mcg capsule 1 cap INHALATION QAM #1 inh 03/27/21 08/29/21 Rx with inhalation device (Spiriva with HandiHaler) aluminum-mag hydroxide-simethicone 30 ml PO DIRECTED PRN 04/08/21 08/29/21 History 200 mg-200 mg-20 mg/5 mL oral susp famotidine 20 mg tablet 20 mg PO 3XWK 04/08/21 08/29/21 History ipratropium 0.5 mg-albuterol 3 mg 3 ml INHALATION Q4H PRN 04/08/21 History (2.5 mg base)/3 mL nebulization soln lidocaine 4 % topical patch 1 patch TOPICAL DAILY PRN 04/08/21 History (Aspercreme (lidocaine)) nitroglycerin 0.4 mg sublingual 0.4 mg SUBLINGUAL DIRECTED PRN 04/08/21 08/29/21 History tablet (Nitrostat) ropinirole 0.25 mg tablet 0.25 mg PO HS 04/08/21 08/29/21 Histo ry sennosides 8.6 mg tablet (Senokot) 8.6 mg PO DAILY PRN 04/08/2108/29 History acetaminophen 325 mg capsule 650 mg PO QID PRN #30 cap 04/13/2108/29 Rx diclofenac sodium 1 % topical gel 2 g TOPICAL QID #100 g 04/13/2102/13 Rx (Voltaren Arthritis Pain) pregabalin 75 mg capsule (Lyrica) 75 mg PO QAM #30 cap 05/15/2108/29 Rx clopidogrel 75 mg tablet 75 mg PO QDL 05/31/21 08/29/21 Histor y Oxygen Home #1 ea 06/04/21 08/06/21 Rx amiodarone 200 mg tablet 200 mg PO Q OTHER DAY #14 tab 07/11/2108/29 Rx pantoprazole 40 mg tablet,delayed 40 mg PO QAM #90 tab 07/11/2108/29 Rx release temazepam 15 mg capsuleF 15 mg PO HS PRN #60 cap 08/19/21 08/29/21 Rx Past Med/Surg History Medical History(Updated 08/29/21 @ 17:39 by Tan Chacon) AAA (abdominal aortic aneurysm) Acute dyspnea Acute osteomyelitis of foot Anemia, chronic renal failure AV fistula right armCAD (coronary artery disease) Chronic back pain Chronic GERD Chronic right-sided CHF (congestive heart failure) Chronic ulcer of great toe of left foot with fat layer exposed COPD (chronic obstructive pulmonary disease) COPD (chronic obstructive pulmonary disease) CVA (cerebral vascular accident) "NO RESIDUAL EFFECTS" PER RECORDSDependence on renal dialysis Depression Dermatitis Diastolic CHF DVT (deep venous thrombosis) Elevated troponin Encounter for central line placement GERD (gastroesophageal reflux disease) H/O: gout Hyperkalemia Hyperlipidemia Hypothyroidism Ileostomy in place 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 (Dr Sj Restrepo)Memory loss or impairment Myocardial infarct, old 2010Necrosis of colon Orthostatic hypotension Oxygen dependent Peripheral vascular disease Skin ulcers of both feet Valvular disease S/P MVR (2010); ?AVR PER RECORDSVitamin D deficiency Surgical History Difficult intubation B/L Anteriogram, Right femoral to anterior tibial cadaver vein bypass= 08/06/18= Grade view 4, MAC 3 --> [facility] 2011H/O [id number] bypass 2013H/O mitral valve repair 2010; ?AVR PER RECORDSHx of CABG S/P CABG X2 (DURING MVR) 2010S/P AAA repair S/P ablation of atrial fibrillation S/P cholecystectomy S/P femoral-popliteal bypass surgery S/P MVR (mitral valve repair) Status post transmetatarsal amputation of right foot Family History Mother Essential hypertensionFather , age 76 Myocardial infarctionDenies family history of Colon cancer Ovarian cancer Prostate cancer Breast cancer Social History Smoking Status: Former smoker Tobacco Type: Cigarettes Years Smoked: 5; Second Hand Exposure: No; Hx Alcohol Use: No Hx Substance Use: No Preferred Language: Citizen [place] Communication Ability: Effective Visual Impairment: No Limitations Hearing Ability: Normal Frame Tender Required: No Beliefs That Will Affect Care: None marital status: / marital status details: 1 daughter Current Living Situation: Family Current Living Situation Comment: sister takes care of patient and patient's mother 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: [employer] sales Feels Safe at Home: Yes Childhood Exposure to Second-Hand Smoke: No Dental Care, Regularly: Yes Physical Activity Frequency: Other Physical Activity Frequency Comment: Physical activity limited by patients medical conditions Seatbelt Use: always Sunscreen Use: Yes Assistive Devices: Walker and Wheelchair Review of Systems Review of Systems: Gen - no fevers, no chills; fatigue (chronic); lack of appetite today Eyes - no visual change HENT - no sore throat or nasal congestion; has chronic rhinorrhea Neck - chronic neck pain with headaches Pulm - chronic dyspnea on exertion (2-3 feet of walking leads to such); no cough CV - no chest pains GI - dry heaves, nausea, abd pain, decreased stool output from ostomy - does not make urine (ESRD) Musculo - denies joint pains Skin - chronic rashes on shins/feet Psych - denies depression Endo - no diabetes Heme - easy bruising Neuro - chronic headaches Allergies Allergy/AdvReac Type Severity Reaction Status Date / Time oxycodone AdvReac Severe DELIRIUM Verified 08/06/21 14:57 tramadol AdvReac Severe dizziness;a Verified 08/06/21 14:57 nxiety;sob gabapentin AdvReac Intermediate Nausea Verified 08/06/21 14:57 Home Medications Medication Instructions Recorded Confirmed Type calcium acetate(phosphat bind) 667 667 mg PO TIDM 08/23/18 08/29/21 History mg capsule docusate sodium 100 mg capsule 100 mg PO HS 05/31/19 08/29/21 History aspirin 81 mg tablet,delayed 81 mg PO DAILY 05/01/20 08/29/21 History release (Aspirin Low Dose) vitamin B complex and vitamin C 1 mg PO DAILY 05/01/20 08/29/21 History no.20-folic acid 1 mg capsule (Triphrocaps) atorvastatin 40 mg tablet 40 mg PO HS #90 tab 11/13/20 08/29/21 Rx fluticasone furoate 200 1 inh INHALATION QAM #84 ea 11/23/20 08/29/21 Rx mcg-vilanterol 25 mcg/dose inhalation powder (Breo Ellipta) levothyroxine 88 mcg tablet 88 mcg PO DAILY #90 tab 11/23/20 08/29/21 Rx paroxetine HCl 20 mg tablet 20 mg PO HS #90 tab 01/21/21 08/29/21 Rx tiotropium bromide 18 mcg capsule 1 cap INHALATION QAM #1 inh 03/27/21 08/29/21 Rx with inhalation device (Spiriva with HandiHaler) aluminum-mag hydroxide-simethicone 30 ml PO DIRECTED PRN 04/08/21 08/29/21 History 200 mg-200 mg-20 mg/5 mL oral susp famotidine 20 mg tablet 20 mg PO 3XWK 04/08/21 08/29/21 History ipratropium 0.5 mg-albuterol 3 mg 3 ml INHALATION Q4H PRN 04/08/21 08/29/21 History (2.5 mg base)/3 mL nebulization soln lidocaine 4 % topical patch 1 patch TOPICAL DAILY PRN 04/08/21 08/29/21 History (Aspercreme (lidocaine)) nitroglycerin 0.4 mg sublingual 0.4 mg SUBLINGUAL DIRECTED PRN 04/08/21 08/29/21 History tablet (Nitrostat) ropinirole 0.25 mg tablet 0.25 mg PO HS 04/08/21 08/29/21 History sennosides 8.6 mg tablet (Senokot) 8.6 mg PO DAILY PRN 04/08/21 08/29/21 History acetaminophen 325 mg capsule 650 mg PO QID PRN #30 cap 04/13/21 08/29/21 Rx diclofenac sodium 1 % topical gel 2 g TOPICAL QID #100 g 04/13/21 08/29/21 Rx (Voltaren Arthritis Pain) pregabalin 75 mg capsule (Lyrica) 75 mg PO QAM #30 cap 05/15/21 08/29/21 Rx clopidogrel 75 mg tablet 75 mg PO QDL 05/31/21 08/29/21 History Oxygen Home #1 ea 06/04/21 08/06/21 Rx amiodarone 200 mg tablet 200 mg PO Q OTHER DAY #14 tab 07/11/21 08/29/21 Rx pantoprazole 40 mg tablet,delayed 40 mg PO QAM #90 tab 07/11/21 08/29/21 Rx release temazepam 15 mg capsule 15 mg PO HS PRN #60 cap 08/19/21 08/29/21 Rx Patient History Medical History (Updated 08/29/21 @ 17:39 by Tan Chacon) AAA (abdominal aortic aneurysm) Acute dyspnea Acute osteomyelitis of foot Anemia, chronic renal failure AV fistula right arm CAD (coronary artery disease) Chronic back pain Chronic GERD Chronic right-sided CHF (congestive heart failure) Chronic ulcer of great toe of left foot with fat layer exposed COPD (chronic obstructive pulmonary disease) COPD (chronic obstructive pulmonary disease) CVA (cerebral vascular accident) "NO RESIDUAL EFFECTS" PER RECORDS Dependence on renal dialysis Depression Dermatitis Diastolic CHF DVT (deep venous thrombosis) Elevated troponin Encounter for central line placement GERD (gastroesophageal reflux disease) H/O: gout Hyperkalemia Hyperlipidemia Hypothyroidism Ileostomy in place 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 (Dr Sj Restrepo) Memory loss or impairment Myocardial infarct, old 2010 Necrosis of colon Orthostatic hypotension Oxygen dependent Peripheral vascular disease Skin ulcers of both feet Valvular disease S/P MVR (2010); ?AVR PER RECORDS Vitamin D deficiency Surgical History Difficult intubation B/L Anteriogram, Right femoral to anterior tibial cadaver vein bypass= 08/06/18= Grade view 4, MAC 3 --> Glidescope #3, [facility]TT 7.5 [facility] H/O abdominal aortic aneurysm repair 2011 H/O [id number] bypass 2012 H/O mitral valve repair 2010; ?AVR PER RECORDS Hx of CABG S/P CABG X2 (DURING MVR) 2010 S/P AAA repair S/P ablation of atrial fibrillation S/P cholecystectomy S/P femoral-popliteal bypass surgery S/P MVR (mitral valve repair) Status post transmetatarsal amputation of right foot Family History Mother Essential hypertension Father , age 76 Myocardial infarction Denies family history of Colon cancer Ovarian cancer Prostate cancer Breast cancer Social History Smoking Status: Former smoker Tobacco Type: Cigarettes Years Smoked: 5; Second Hand Exposure: No; Hx Alcohol Use: No Hx Substance Use: No Preferred Language: Citizen Of [place] Communication Ability: Effective Visual Impairment: No Limitations Hearing Ability: Normal Frame Tender Required: No Beliefs That Will Affect Care: None marital status: / marital status details: 1 daughter Current Living Situation: Family Current Living Situation Comment: sister takes care of patient and patient's mother 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 Feels Safe at Home: Yes Childhood Exposure to Second-Hand Smoke: No Dental Care, Regularly: Yes Physical Activity Frequency: Other Physical Activity Frequency Comment: Physical activity limited by patients medical conditions Seatbelt Use: always Sunscreen Use: Yes Assistive Devices: Walker and Wheelchair Physical Exam Constitutional: WD/WN, vitals as above Eyes: PERRL, conjunctivae normal, anicteric sclerae Neck: trachea midline, no thyromegaly Respiratory: normal respiratory effort, lungs clear to auscultation Cardiovascular: RRR, no murmur, no edema Gastrointestinal (Abdomen): soft, mild distend, scar on middle line, tenderness at josephine-umbilical area, no rebound pain, BS +, no air or stool in ileostomy bag, Musculoskeletal: no cyanosis or clubbing, extremities motor strength 5/5 Neurologic: patellar DTR's 2+ bilat, sensation intact Psychiatric: A+Ox3, euthymic affect Results & Data ([facility]) Vital Signs (Past 12 Hours) Vital Signs Temp Pulse Resp BP Pulse Ox 08/29/21 16:30 81 16 170/84 H 100 08/29/21 16:15 85 18 08/29/21 16:00 87 20 148/71 H 97 08/29/21 15:45 84 16 08/29/21 15:30 84 20 148/72 H 97 08/29/21 15:15 85 17 97 08/29/21 15:00 82 17 99 08/29/21 14:45 83 19 99 08/29/21 14:30 82 15 97 08/29/21 14:15 80 21 97 08/29/21 14:00 78 20 97 08/29/21 13:45 78 20 08/29/21 13:30 79 20 08/29/21 13:15 78 17 08/29/21 13:00 79 22 168/81 H 08/29/21 12:45 79 20 97 08/29/21 12:30 77 19 162/78 H 97 08/29/21 12:15 78 15 173/85 H 98 08/29/21 12:00 79 17 98 08/29/21 11:50 78 15 98 08/29/21 11:30 74 20 136/71 100 08/29/21 11:27 76 24 100 08/29/21 10:32 36.8 C 84 16 145/80 H 96 Laboratory Results Abnormal lab results 08/29/21 08/29/21 Range/Units 11:30 11:30 WBC 13.08 H (4.8-10.8) K/uL RBC 3.90 L (4.7-6.1) M/uL Hgb 12.8 L (14.0-18.0) g/dL Hct 39.6 L (42-52) % MCV 101.5 H (80-100) fL RDW Std Deviation 58.4 H (36.4-46.3) fL RDW Coeff of Jolanta 15.8 H (11.5-14.5) % Neut # (Auto) 10.66 H (1.4-6.5) K/uL Lymph # (Auto) 1.03 L (1.2-3.4) K/uL Owen # (Auto) 1.11 H (0.11-0.59) K/uL Immature Gran # (Auto) 0.04 H (0.00-0.02) K/uL Chloride 97 L (98-107) mmol/L Carbon Dioxide 33 H (21-32) mmol/L BUN 22 H (7-18) mg/dl Creatinine 6.67 H* (0.6-1.4) mg/dl BUN/Creatinine Ratio 3.3 L (10-20) Glucose 106 H (70-99) mg/dl Direct Bilirubin 0.3 H (0-0.2) mg/dl Alkaline Phosphatase 173 H (45-117) U/L Diagnostic Findings CT abd pelvis wo con CLINICAL HISTORY: Abdominal pain with nausea and vomiting. History of previous bowel obstructions. Patient reports no output from his ostomy. COMPARISON STUDY: 05/17/2021 CT DOSE: 1050.26 mGycm TECHNIQUE: Standard CT of the Abdomen and Pelvis was performed without IV contrast. A dose lowering technique was utilized adhering to the principles of ALARA. FINDINGS: Lung base: There is colonic pleural thickening posteriorly on the right with scarring present. Lung bases are otherwise clear. There is again mild cardiomegaly and coronary artery calcification. Abdominal cavity and bowel: The patient is again status post colectomy with ileostomy seen in the right lower quadrant. Compared to previous examination, there is now fecal impaction present within the distal ileum and within the ileostomy as it extends into the subcutaneous fat. This produces pseudoobstruction with mild to moderate dilatation of the remaining small bowel loops. Fluid levels are present throughout the small bowel. However, there is no evidence for mucosal edema or inflammatory change. There is no evidence for free air. There is no evidence for abdominal mass, adenopathy or ascites. Liver: The liver is homogeneous in attenuation on these limited noncontrast images.. Spleen: The spleen is homogeneous in attenuation on these limited noncontrast images. Pancreas: The pancreas is homogeneous in attenuation on these limited noncontrast images. Gall Bladder: Surgical clips are again seen from previous cholecystectomy. Adrenal glands: The adrenal glands are normal in size and attenuation on these limited noncontrast images. Kidneys: There is again atrophy of the kidneys bilaterally, left greater than right with numerous bilateral renal cysts again seen. There has been interval resolution of previously identified bilateral hydronephrosis. Bladder: The bladder is partially contracted with diffuse thickening of the bladder wall most characteristic of chronic bladder outlet obstruction. The presence of a bladder mass cannot be excluded based on this study as there is no IV contrast within the bladder. : There is no evidence for pelvic mass or adenopathy. There is mild to moderate prostate enlargement. Vasculature:An aortobiiliac stent is in place. Extensive atherosclerotic calcification is present. Osseous structures: There is no acute osseous pathology. Old L2 compression fractures again seen. Extensive degenerative changes are also again seen. IMPRESSION: 1. Interval development of fecal impaction within the distal ileum and extending into the subcutaneous fat related to the patient's ileostomy. This produces pse udoobstruction with mild to moderate dilatation of the remaining small bowel loops. Fluid levels are present. No mucosal edema or inflammatory changes are present. 2. Additional nonacute findings as delineated above.
[2021-08-29] MEDS ORDERED: TEMAZEPAM 15 MG CAPSULE PO PRN (19:48)
[2021-08-29] MEDS ORDERED: ONDANSETRON INJ 2 MG/ML 2 ML VIAL IV PRN (19:48)
[2021-08-29] MEDS ORDERED: NITROGLYCERIN SL 0.4 MG/TAB TAB SL PRN (19:48)
[2021-08-29] MEDS ORDERED: ALBUT/IPRATROP 3MG/0.5MG NEB 3 ML VIAL INH PRN (19:48)
[2021-08-29] MEDS ORDERED: ACETAMINOPHEN 325 MG TAB PO PRN (19:53)
[2021-08-29] MEDS ORDERED: PREGABALIN 75 MG CAP PO PRN (19:59)
[2021-08-29] MEDS: MoRPHine SULFATE 2 MG/ML CARP IV PRN (20:09)
[2021-08-29] MEDS ORDERED: LIDOCAINE 5% 1 PATCH TD PRN (21:08)
[2021-08-29] MEDS: DICLOFENAC SOD 1% GEL 100 GM TUBE EXT SCH (22:03)
[2021-08-29] MEDS ORDERED: FAMOTIDINE 20MG/5ML IV PUSH IV ONE (22:05)
[2021-08-29] MEDS: CALCIUM ACETATE 667 MG CAP/TAB PO SCH (22:06)
[2021-08-29] MEDS: PARoxetine HCL 20 MG TAB PO SCH (22:06)
[2021-08-29] MEDS: rOPINIRole HCL 0.25 MG TABLET PO SCH (22:07)
[2021-08-29] MEDS: ATORVASTATIN 40 MG TAB PO SCH (22:09)
[2021-08-29] MEDS: AMPICILLIN/SULBACTAM SOD 3,000 MG in 0.9 % SODIUM CHLORIDE 100 ML IV SCH (22:09)
[2021-08-29] MEDS: HEPARIN SOD 5,000 UNIT/0.5 ML VIAL SQ SCH (22:09)
[2021-08-29] MEDS: FAMOTIDINE 20 MG in SYRINGE 3 ML IV SCH (22:09)
[2021-08-30] MEDS: MoRPHine SULFATE 2 MG/ML CARP IV PRN (02:22)
[2021-08-30 05:48] LABS: Hematocrit (blood only) 40.7 % (42-52); Hemoglobin 12.9 g/dL (14.0-18.0); Mean Corpuscular Hemoglobin 32.6 pg (25-34); Mean Corpuscular Hgb Conc 31.7 g/dL (32-36); Mean Corpuscular Volume 102.8 fL (80-100); Mean Platelet Volume 10.2 fL (7.4-10.4); Platelet Count 112 K/uL (130-400); RDW Coefficient of Variation 15.7 % (11.5-14.5); RDW Standard Deviation 58.4 fL (36.4-46.3); Red Blood Count 3.96 M/uL (4.7-6.1); White Blood Count 12.48 K/uL (4.8-10.8)
[2021-08-30 06:26] LABS: BUN Creatinine Ratio 4.1 (10-20); Blood Urea Nitrogen 32 mg/dl (7-18); Carbon Dioxide 26 mmol/L (21-32); Chloride 102 mmol/L (98-107); Glucose 101 mg/dl (70-99); Potassium 6.1 mmol/L (3.5-5.1); Sodium 135 mmol/L (136-145)
[2021-08-30] MEDS ORDERED: FAMOTIDINE 20MG/5ML IV PUSH IV ONE ×2 (08:50→11:04)
[2021-08-30] MEDS: ASPIRIN 81 MG ECTAB PO SCH (08:57)
[2021-08-30] MEDS: FAMOTIDINE 20 MG in SYRINGE 3 ML IV SCH (08:58)
[2021-08-30] MEDS: LEVOTHYROXINE SODIUM 88 MCG TABLET PO SCH (08:58)
[2021-08-30] MEDS: DICLOFENAC SOD 1% GEL 100 GM TUBE EXT SCH ×4 (08:58→22:28)
[2021-08-30] MEDS: FLUTICASONE/VILANTEROL 200/25MCG 14 PUFFS/INHALER INH SCH (08:58)
[2021-08-30] MEDS: UMECLIDINIUM BROMIDE 62.5MCG/BLISTER 7 PUFFS/INHALER INH SCH (08:59)
[2021-08-30] MEDS ORDERED: AMIODARONE 200 MG TAB PO SCH (09:00)
--- NOTE | 2021-08-30 09:06 | Hospitalist Progress Note ---
Date of Service August 30, 2021 Assessment & Plan (1) Acute pseudo-obstruction of bowel: Plan: Fecal impaction noted in the distal ileum on CT with extension of that stool into the ileostomy. Upstream bowels are dilated with resulting pseudo-obstruction. General surgery consult appreciated. They advise IV antibiotics - will place on IV Unasyn--> continued. WBC trending down Defer on fluids given ESRD status and continue to hold off Pain meds prn. KUB with improvement, no obstruction. Ostomy now with output, no further pain -- wound RN did attempt to lavage stoma on 08/29. consider rec hot water 15oz, turning and grape juice as options if recurs. 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 See #1 above. (3) Chronic respiratory failure with hypoxia: Plan: On home O2, 2 liters continuously--> currently stable on 2L and states breathing at baseline stable. No evidence of complicating pneumonia, volume overload, etc. COVID negative. (4) Hypothyroidism: Plan: TSH wnl Cont synthroid. (5) ESRD (end stage renal disease) on dialysis: Plan: Dialyzes at [facility] in [place]. [facility] manages. Schedule - M/W/F. RUE AV fistula. Consult [facility] --> PLans for HD this evening (6) COPD (chronic obstructive pulmonary disease): Plan: Stable. On home o2. No exacerbation. Cont home inhalers. (7) Chronic right-sided CHF (congestive heart failure): Plan: Compensated today. Defer on IVF given his cor pulmonale and ESRD. (8) CAD (coronary artery disease): Plan: No ischemic symptoms at this time. Cont asa, plavix. Cont statin. (9) GERD (gastroesophageal reflux disease): Plan: He takes both H2 maxim and PPI. Continue both - give IV. (10) Atrial fibrillation: Plan: Cont amiodarone QOD. (11) DVT prophylaxis: Plan: Heparin 5000 BID Plan: HD this evening Continue to monitor --> advance diet as above Admission and Anticipated Discharge Date Admission Date: August 29, 2021 Supervising Physician Co-Signing Physician Notes PA Supervision Note: I did not personally see or examine the patient today, but I verified all darnell points of RISHABH Acuña's assessment and plan with the following exceptions/additions: None Subjective Patient evaluated this afternoon. Feeling much better. Still occasional shortness of breath. States much better than on admission and about back to his baseline on 2L chronically. No CPAP/TORRIE. Seen by nephrology this morning but not sure if plans for dialysis. Tolerating clear liquid diet without issue and has decent amount of brown/yellow liquid from ostomy. Discussed imaging with improvement and no evidence of obstruction and continued monitoring. If continued improvement tomorrow he is hopeful for possible d/c but will continue to monitor for now. Of note, awaiting eval by dentist next week for recent issues with loosing teeth. Brushes regularly per his account. No signs of gum bleeding. Recently just lost another tooth. No fever, chills, chest pain, abdominal pain, nausea or vomiting. Hasn't made urine in 6 yrs but states occasional dribble when walking. Per nephro will plan for HD today but will not be until later this evening. Review of Systems Review of Systems: All systems reviewed & are unremarkable except as noted in HPI & below Physical Exam Physical Exam: Gen - NAD, awake, alert Skin - dry skin on face/uremic vaughan; stasis changes b/l shins with scattered occasional abrasion and scabbing on madden; tiny abrasions/ulcers on toes of L foot Eyes - PERRL HENT - TMs not seen b/l due to cerumen, mouth - MM dry with multiple dental losses recently, some bleeding from recent tooth lost Neck - no JVD Heart - RRR, s1 s2, 2/6 FIDELIA LUSB; AV fistula RUE with bruit Lungs - CTAB b/l, no rales, no increased work of breathing Abd - less distension, +BS throughout, stoma to RLQ pink with brown/yellow output in ostomy Ext - pulses b/l feet <1+; no edema Musculo - TMA right foot all toes Neuro - strength 5/5 x 4 exts; DTRs 2+ b/l Lymph - no cervical lymph nodes Results & Data Results & Data ([facility]) Vital Signs (Past 12 Hours) Vital Signs Temp Pulse Pulse Resp BP BP Pulse Ox 08/30/21 05:00 69 17 98 08/30/21 04:00 69 17 171/82 H 97 08/30/21 03:00 71 14 97 08/30/21 02:00 70 15 100 08/30/21 01:00 71 17 08/30/21 00:00 70 15 100 08/29/21 23:00 72 72 16 180/88 H 180/88 H 93 08/29/21 22:00 73 20 181/89 H 98 08/29/21 21:53 36.8 C 74 19 179/81 H 99 Laboratory Results 08/30/21 08/30/21 08/30/21 Range/Units 15:01 05:24 05:24 WBC (4.8-10.8) K/uL RBC (4.7-6.1) M/uL Hgb (14.0-18.0) g/dL Hct (42-52) % MCV (80-100) fL MCH (25-34) pg MCHC (32-36) g/dL RDW Std Deviation (36.4-46.3) fL RDW Coeff of Jolanta (11.5-14.5) % Plt Count (130-400) K/uL MPV (7.4-10.4) fL Sodium Pending 135 L (136-145) mmol/L Potassium Pending 6.1 H* D (3.5-5.1) mmol/L Chloride Pending 102 (98-107) mmol/L Carbon Dioxide Pending 26 (21-32) mmol/L Anion Gap Pending 7.0 (3-11) BUN Pending 32 H (7-18) mg/dl Creatinine Pending 7.86 H* D (0.6-1.4) mg/dl Est Cr Clr Drug Dosing Pending Not Reportable Est GFR ( Amer) Pending 7.0 ml/min Est GFR (Non-Af Amer) Pending 6.0 ml/min BUN/Creatinine Ratio Pending 4.1 L (10-20) Glucose Pending 101 H (70-99) mg/dl Calcium Pending 9.0 (8.5-10.1) mg/dl Total Bilirubin 1.0 (0.2-1) mg/dl Direct Bilirubin TNP AST 34 (15-37) U/L ALT 23 (12-78) U/L Alkaline Phosphatase 160 H (45-117) U/L Total Protein 7.1 (6.4-8.2) gm/dl Albumin 3.0 L (3.4-5.0) gm/dl Specimen Hemolysis 08/30/21 Range/Units 05:24 WBC 12.48 H (4.8-10.8) K/uL RBC 3.96 L (4.7-6.1) M/uL Hgb 12.9 L (14.0-18.0) g/dL Hct 40.7 L (42-52) % MCV 102.8 H (80-100) fL MCH 32.6 (25-34) pg MCHC 31.7 L (32-36) g/dL RDW Std Deviation 58.4 H (36.4-46.3) fL RDW Coeff of Jolanta 15.7 H (11.5-14.5) % Plt Count 112 L (130-400) K/uL MPV 10.2 (7.4-10.4) fL Sodium (136-145) mmol/L Potassium (3.5-5.1) mmol/L Chloride (98-107) mmol/L Carbon Dioxide (21-32) mmol/L Anion Gap (3-11) BUN (7-18) mg/dl Creatinine (0.6-1.4) mg/dl Est Cr Clr Drug Dosing Est GFR ( Amer) ml/min Est GFR (Non-Af Amer) ml/min BUN/Creatinine Ratio (10-20) Glucose (70-99) mg/dl Calcium (8.5-10.1) mg/dl Total Bilirubin (0.2-1) mg/dl Direct Bilirubin AST (15-37) U/L ALT (12-78) U/L Alkaline Phosphatase (45-117) U/L Total Protein (6.4-8.2) gm/dl Albumin (3.4-5.0) gm/dl Specimen Hemolysis Diagnostic Findings KUB X-Ray 08/30/21 07:30 XR KUB/Abdomen 1 view CLINICAL HISTORY: Abdominal pain with nausea and vomiting for 3 days. Follow-up suspected to obstruction. COMPARISON STUDY: CT of the abdomen and pelvis from 08/29/2021 TECHNIQUE: Single view of the abdomen. FINDINGS: Compared to the CT examination, there is some type of stent or catheter superimposed over the right side of the abdomen. No significant fecal material is identified in relation to the patient's ileostomy right lower quadrant as seen on the CT. Previously identified bowel loop dilatation seen on CT is no longer present. There is no evidence for organomegaly or gross intra-abdominal mass. No abnormal calcifications are seen along the course of the urinary tracts bilaterally. No acute osseous pathology. IMPRESSION: 1.Compared to the CT examination, there is evidence for decompression of the thecal impaction seen with decompression of dilated loops of small bowel. No evidence for obstruction is seen radiographically. Electronically signed by: Aydin Fine M.D. 08/30/2021 9:38 AM PG Care Time/CCT Total # of Minutes Spent Total Time Spent with Patient: Total time spent is greater than 50% in coordination of care (as documented) at patient's floor/unit and/or counseling patient: Coding Level of Care Code 81017 Subseq Hosp Care Lvl 3 Diagnoses Acute pseudo-obstruction of bowel K59.[address] Z93.2 Chronic respiratory failure with hypoxia J96.11 Hypothyroidism E03.9 ESRD (end stage renal disease) on dialysis N18.6; Z99.2 COPD (chronic obstructive pulmonary disease) J44.9 Chronic right-sided CHF (congestive heart failure) I50.812 CAD (coronary artery disease) I25.10 Associated angina: without angina Coronary Disease-Associated Artery/Lesion type: [place] artery [place] vs. transplanted heart: [place] heart GERD (gastroesophageal reflux disease) K21.9 Atrial fibrillation I48.91 DVT prophylaxis Z29.9 (1) CAD (coronary artery disease) Associated angina: without angina Coronary Disease-Associated Artery/Lesion type: [place] artery [place] vs. transplanted heart: [place] heart Qualified Code(s): I25.10 - Atherosclerotic heart disease of [place] coronary artery without angina pectoris
[2021-08-30] MEDS: PREGABALIN 75 MG CAP PO SCH (09:20)
[2021-08-30] MEDS: HEPARIN SOD 5,000 UNIT/0.5 ML VIAL SQ SCH ×2 (09:37→22:28)
--- NOTE | 2021-08-30 09:39 | XRay Report ---
XR KUB/Abdomen 1 view CLINICAL HISTORY: Abdominal pain with nausea and vomiting for 3 days. Follow-up suspected to obstruc tion. COMPARISON STUDY: CT of the abdomen and pelvis from 08/29/2021 TECHNIQUE: Single view of the abdomen. FINDINGS: Compared to the CT examination, there is some type of stent or catheter superimposed over the right s capri of the abdomen. No significant fecal material is identified in relation to the patient's ileostom y right lower quadrant as seen on the CT. Previously identified bowel loop dilatation seen on CT is n o longer present. There is no evidence for organomegaly or gross intra-abdominal mass. No abnormal ca lcifications are seen along the course of the urinary tracts bilaterally. No acute osseous pathology. IMPRESSION: 1.Compared to the CT examination, there is evidence for decompression of the thecal impaction seen wi th decompression of dilated loops of small bowel. No evidence for obstruction is seen radiographicall hung Electronically signed by: Aydin Fine M.D. 08/30/2021 9:38 AM
[2021-08-30] MEDS: AMPICILLIN/SULBACTAM SOD 3,000 MG in 0.9 % SODIUM CHLORIDE 100 ML IV SCH ×2 (10:11→22:51)
[2021-08-30 10:46] LABS: Alanine Aminotransferase 23 U/L (12-78); Alkaline Phosphatase 160 U/L (45-117); Aspartate Aminotransferase 34 U/L (15-37); Total Protein 7.1 gm/dl (6.4-8.2)
[2021-08-30] MEDS ORDERED: SODIUM CHLORIDE 0.9% 1000ML 1,000 ML IV PRN (10:57)
[2021-08-30] MEDS: PANTOprazole 40 MG in SYRINGE 0 ML IV SCH (11:07)
[2021-08-30] MEDS: CALCIUM ACETATE 667 MG CAP/TAB PO SCH ×2 (11:07→17:27)
[2021-08-30] MEDS: CLOPIDOGREL BISULFATE 75 MG TAB PO SCH (11:07)
[2021-08-30] MEDS ORDERED: INSULIN HUMAN REGULAR PER UNIT 10 UNITS in SYRINGE 9.9 ML IV STA (11:12)
[2021-08-30] MEDS ORDERED: DEXTROSE 50% 50 ML SYRINGE IV ONE (11:12)
[2021-08-30] MEDS ORDERED: CALCIUM GLUCONATE 10% 10 ML VIAL IV ONE (11:14)
[2021-08-30] MEDS ORDERED: SODIUM BICARB 8.4% INJ 50 MEQ/50 ML SYR IV STA (11:15)
[2021-08-30] MEDS ORDERED: CALCIUM GLUCONATE 10% 1,000 MG in SODIUM CHLORIDE 0.9% 50 ML IV STA (11:21)
--- NOTE | 2021-08-30 11:28 | Surgery Progress Note ---
Date of Service August 30, 2021 Assessment & Plan (1) Acute pseudo-obstruction of bowel: Plan: ileostomy now functioning KUB showing no signs of obstruction advance to clear liquids continue medical management [facility] surgery covering weekend Dr. Leone was present during my examination and agrees with above. Admission and Anticipated Discharge Date Admission Date: August 29, 2021 Subjective feeling better not much abdominal pain having liquid stool out of ostomy no nausea or vomiting Physical Exam Constitutional: WD/WN, vitals as above + morbidly obese; no acute distress and not ill appearing Respiratory: normal respiratory effort; no respiratory distress and no labored breathing Gastrointestinal (Abdomen): Inspection/Auscultation: abdomen normal to ins pection and + abdominal surgical scar Percussion/Palpation: + abdomen tender (mild, generalized) and abdomen soft; no guarding and abdomen not rigid ileostomy with liquid stool output Skin: no rashes, warm and dry Psychiatric: Orientation: alert Results & Data ([facility]) Vital Signs (Past 12 Hours) Vital Signs Temp Pulse Pulse Resp BP BP Pulse Ox 08/30/21 09:04 36.5 C 65 18 151/80 H 100 08/30/21 05:00 69 17 98 08/30/21 04:00 69 17 171/82 H 97 08/30/21 03:00 71 14 97 08/30/21 02:00 70 15 100 08/30/21 01:00 71 17 08/30/21 00:00 70 15 100 Laboratory Results 08/30/21 08/30/21 08/30/21 Range/Units 05:24 05:24 05:24 WBC 12.48 H (4.8-10.8) K/uL RBC 3.96 L (4.7-6.1) M/uL Hgb 12.9 L (14.0-18.0) g/dL Hct 40.7 L (42-52) % MCV 102.8 H (80-100) fL MCH 32.6 (25-34) pg MCHC 31.7 L (32-36) g/dL RDW Std Deviation 58.4 H (36.4-46.3) fL RDW Coeff of Jolanta 15.7 H (11.5-14.5) % Plt Count 112 L (130-400) K/uL MPV 10.2 (7.4-10.4) fL Immature Gran % (Auto) % Neut % (Auto) % Lymph % (Auto) % [place] % (Auto) % Eos % (Auto) % Baso % (Auto) % Neut # (Auto) (1.4-6.5) K/uL Lymph # (Auto) (1.2-3.4) K/uL [place] # (Auto) (0.11-0.59) K/uL Eos # (Auto) (0-0.5) K/uL Baso # (Auto) (0-0.2) K/uL Immature Gran # (Auto) (0.00-0.02) K/uL Sodium 135 L (136-145) mmol/L Potassium 6.1 H* D (3.5-5.1) mmol/L Chloride 102 (98-107) mmol/L Carbon Dioxide 26 (21-32) mmol/L Anion Gap 7.0 (3-11) BUN 32 H (7-18) mg/dl Creatinine 7.86 H* D (0.6-1.4) mg/dl Est Cr Clr Drug Dosing Not Reportable Est GFR ( Amer) 7.0 ml/min Est GFR (Non-Af Amer) 6.0 ml/min BUN/Creatinine Ratio 4.1 L (10-20) Glucose 101 H (70-99) mg/dl Calcium 9.0 (8.5-10.1) mg/dl Magnesium (1.8-2.4) mg/dl Total Bilirubin 1.0 (0.2-1) mg/dl Direct Bilirubin TNP (0-0.2) mg/dl AST 34 (15-37) U/L ALT 23 (12-78) U/L Alkaline Phosphatase 160 H (45-117) U/L Total Protein 7.1 (6.4-8.2) gm/dl Albumin 3.0 L (3.4-5.0) gm/dl Lipase (73-393) U/L TSH (0.300-4.500) uIu/ml Specimen Hemolysis COVID-19 Eval Order SARS-CoV-2 (PCR) (Negative) 08/29/21 08/29/21 08/29/21 Range/Units 11:30 11:30 11:23 WBC 13.08 H (4.8-10.8) K/uL RBC 3.90 L (4.7-6.1) M/uL Hgb 12.8 L (14.0-18.0) g/dL Hct 39.6 L (42-52) % MCV 101.5 H (80-100) fL MCH 32.8 (25-34) pg MCHC 32.3 (32-36) g/dL RDW Std Deviation 58.4 H (36.4-46.3) fL RDW Coeff of Jolanta 15.8 H (11.5-14.5) % Plt Count 156 (130-400) K/uL MPV 9.2 (7.4-10.4) fL Immature Gran % (Auto) 0.3 % Neut % (Auto) 81.4 % Lymph % (Auto) 7.9 % [place] % (Auto) 8.5 % Eos % (Auto) 1.7 % Baso % (Auto) 0.2 % Neut # (Auto) 10.66 H (1.4-6.5) K/uL Lymph # (Auto) 1.03 L (1.2-3.4) K/uL [place] # (Auto) 1.11 H (0.11-0.59) K/uL Eos # (Auto) 0.22 (0-0.5) K/uL Baso # (Auto) 0.02 (0-0.2) K/uL Immature Gran # (Auto) 0.04 H (0.00-0.02) K/uL Sodium 136 (136-145) mmol/L Potassium 4.9 (3.5-5.1) mmol/L Chloride 97 L (98-107) mmol/L Carbon Dioxide 33 H (21-32) mmol/L Anion Gap 6.0 (3-11) BUN 22 H (7-18) mg/dl Creatinine 6.67 H* (0.6-1.4) mg/dl Est Cr Clr Drug Dosing Not Reportable Est GFR ( Amer) 8.5 ml/min Est GFR (Non-Af Amer) 7.3 ml/min BUN/Creatinine Ratio 3.3 L (10-20) Glucose 106 H (70-99) mg/dl Calcium 9.8 (8.5-10.1) mg/dl Magnesium 2.1 (1.8-2.4) mg/dl Total Bilirubin 0.9 (0.2-1) mg/dl Direct Bilirubin 0.3 H (0-0.2) mg/dl AST 21 (15-37) U/L ALT 28 (12-78) U/L Alkaline Phosphatase 173 H (45-117) U/L Total Protein 7.7 (6.4-8.2) gm/dl Albumin 3.5 (3.4-5.0) gm/dl Lipase 210 (73-393) U/L TSH 1.220 (0.300-4.500) uIu/ml Specimen Hemolysis COVID-19 Eval Order SARS-CoV-2 (PCR) NEGATIVE (Negative) 08/29/21 Range/Units 11:23 WBC (4.8-10.8) K/uL RBC (4.7-6.1) M/uL Hgb (14.0-18.0) g/dL Hct (42-52) % MCV (80-100) fL MCH (25-34) pg MCHC (32-36) g/dL RDW Std Deviation (36.4-46.3) fL RDW Coeff of Jolanta (11.5-14.5) % Plt Count (130-400) K/uL MPV (7.4-10.4) fL Immature Gran % (Auto) % Neut % (Auto) % Lymph % (Auto) % [place] % (Auto) % Eos % (Auto) % Baso % (Auto) % Neut # (Auto) (1.4-6.5) K/uL Lymph # (Auto) (1.2-3.4) K/uL [place] # (Auto) (0.11-0.59) K/uL Eos # (Auto) (0-0.5) K/uL Baso # (Auto) (0-0.2) K/uL Immature Gran # (Auto) (0.00-0.02) K/uL Sodium (136-145) mmol/L Potassium (3.5-5.1) mmol/L Chloride (98-107) mmol/L Carbon Dioxide (21-32) mmol/L Anion Gap (3-11) BUN (7-18) mg/dl Creatinine (0.6-1.4) mg/dl Est Cr Clr Drug Dosing Est GFR ( Amer) ml/min Est GFR (Non-Af Amer) ml/min BUN/Creatinine Ratio (10-20) Glucose (70-99) mg/dl Calcium (8.5-10.1) mg/dl Magnesium (1.8-2.4) mg/dl Total Bilirubin (0.2-1) mg/dl Direct Bilirubin (0-0.2) mg/dl AST (15-37) U/L ALT (12-78) U/L Alkaline Phosphatase (45-117) U/L Total Protein (6.4-8.2) gm/dl Albumin (3.4-5.0) gm/dl Lipase (73-393) U/L TSH (0.300-4.500) uIu/ml Specimen Hemolysis COVID-19 Eval Order Covid19 at [facility] SARS-CoV-2 (PCR) (Negative) Diagnostic Findings XR KUB/Abdomen 1 view CLINICAL HISTORY: Abdominal pain with nausea and vomiting for 3 days. Follow-up suspected to obstruction. COMPARISON STUDY: CT of the abdomen and pelvis from 08/29/2021 TECHNIQUE: Single view of the abdomen. FINDINGS: Compared to the CT examination, there is some type of stent or catheter superimposed over the right side of the abdomen. No significant fecal material is identified in relation to the patient's ileostomy right lower quadrant as seen on the CT. Previously identified bowel loop dilatation seen on CT is no longer present. There is no evidence for organomegaly or gross intra-abdominal mass. No abnormal calcifications are seen along the course of the urinary tracts bilaterally. No acute osseous pathology. IMPRESSION: 1.Compared to the CT examination, there is evidence for decompression of the thecal impaction seen with decompression of dilated loops of small bowel. No evidence for obstruction is seen radiographically.
[2021-08-30] MEDS ORDERED: NovoLIN-R INSULIN PER UNIT CHARGE ONE (11:30)
[2021-08-30] MEDS ORDERED: PATIROMER CALCIUM SORBITEX 8.4 GM PACK PO ONE (11:30)
[2021-08-30 15:52] LABS: BUN Creatinine Ratio 4.7 (10-20); Calcium 9.2 mg/dl (8.5-10.1); Creatinine Clr Calc Pharmacy 9.8 ml/min; Est GFR (African American) 6.3 ml/min; Est GFR (Non-African American) 5.5 ml/min
--- NOTE | 2021-08-30 20:25 | Consultation Report ---
NEPHROLOGY CONSULTATION NOTE DATE OF SERVICE: 08/30/2021 REASON FOR CONSULTATION: Dialysis patient admitted with abdominal pain, nausea and poor output from ileostomy. HISTORY OF PRESENT ILLNESS: The patient is a 76-year-old male with ESRD, on hemodialysis Thursday, Thu, Thursday at the [facility], followed by Dr. Christina Alcantar. He also has a history of ischemic colitis, status post subtotal colectomy with ileostomy formation in 04/2019. He presented to the hospital yesterday evening because of decreased ileostomy output associated with nausea and in creasing abdominal discomfort. He has already been seen by general surgery and the feeling is he has some blockage in the ileostomy. The decision has not been made yet whether he needs to go to the OR for any kind of intervention. The patient has chronic shortness of breath and is on home oxygen bec ause of his underlying right-sided heart failure as well as underlying COPD. His last dialysis was o n Thursday. At this time, he does not report having any increased shortness of breath than usual, ev en the abdominal pain has subsided to some extent after the lavage of the ileostomy. Potassium was e levated this morning at 6.1, but without any EKG changes. Vital signs are otherwise stable. ALLERGIES: LIST WAS REVIEWED IN DETAIL. MEDICATIONS: Home medication list was reviewed in detail and is as per the reconciliation list. PAST MEDICAL AND SURGICAL HISTORY: Includes abdominal aortic aneurysm, chronic respiratory failure w ith chronic oxygen use secondary to right-sided heart failure and COPD, history of osteomyelitis of t he foot, ESRD -- on hemodialysis Thursday, Thursday, Thursday, COPD, history of CVA, chronic right-sided heart failure, history of ischemic colitis with subtotal colectomy and indwelling ileostomy, coronar y artery disease with history of PA in 2010, peripheral vascular disease, valvular heart disease with status post MVR in 2010, status post CABG x2, status post aortoiliac femoral bypass, status post abd ominal aortic aneurysm repair, status post transmetatarsal amputation of the right foot, cholecystect emily, atrial fibrillation ablation. FAMILY HISTORY: Negative for renal disease or dialysis. SOCIAL HISTORY: Former smoker. 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 He has very limite d mobility and uses walker and wheelchair and is on chronic oxygen. REVIEW OF SYSTEMS: Other than nausea and abdominal discomfort, 12 systems are reviewed and negative. PHYSICAL EXAMINATION: GENERAL: Elderly white male who is not in any overt respiratory distress. He is awake, alert, orien pedro x3. HEENT: Mucous membrane is moist. NECK: Supple. No jugular venous distention. CHEST: Bilaterally decreased breath sounds. CARDIOVASCULAR: S1 and S2, regular. ABDOMEN: Soft, nontender on superficial palpation. EXTREMITIES: Show no edema. Features of peripheral vascular disease noted. LABORATORY TEST: From this morning shows WBC count 12.5, hemoglobin 12.9, platelet count 112. CT ab domen and pelvis showed interval development of fecal impaction within the distal ileum causing pseud oobstruction. Potassium is elevated at 6.1. Sodium 135, BUN 32, creatinine 7.86. ASSESSMENT AND PLAN: A 76-year-old male with end-stage renal disease with chronic medical problems, now admitted with pseudoobstruction of the bowel causing ileostomy issues. 1. End-stage renal disease: He does not have significant fluid overload or respiratory issues at th is time. He normally has significant shortness of breath during every admission. We will take about 2 kilos of fluid and do dialysis for about 3 hours. 2. Pseudoobstruction of bowel: Reviewed the general surgery note. He may need some surgical interv ention, but that has not been decided yet. 3. Hyperkalemia: This is only slightly elevated and is not associated with EKG change, but at this point, since we do not know at what time he will get dialysis later today and it could very well be v kenny, very late in the evening. I would like to medically manage until then. We will give dextrose, insulin, bicarbonate and Veltassa. Repeat BMP later this afternoon. Also give calcium gluconate. Thank you very much for the consult. Job ID: [id number]
[2021-08-30] MEDS: ATORVASTATIN 40 MG TAB PO SCH (22:28)
[2021-08-30] MEDS: rOPINIRole HCL 0.25 MG TABLET PO SCH (22:28)
[2021-08-30] MEDS: PARoxetine HCL 20 MG TAB PO SCH (22:28)
--- NOTE | 2021-08-31 05:31 | Surgery Progress Note ---
Date of Service August 31, 2021 Assessment & Plan (1) Acute pseudo-obstruction of bowel: Plan: KUB showed no evidence obstruction on 08/30/2021 Continue full liquid diet for the present time Increase activity as able Subcutaneous heparin is in place for DVT prevention Admission and Anticipated Discharge Date Admission Date: August 29, 2021 Supervising Physician Co-Signing Physician Notes I personally saw and evaluated the patient with Saravanan Draper PA-C and agree with the assessment and plan. 76 yo male with resolving SBO -Advance diet as tolerated -If tolerates diet today, ok for discharge home later today versus tomorrow Subjective Patient is resting comfortably in bed. He denies any nausea or vomiting. He notes that his ileostomy appears to be functioning appropriately. He notes abdominal pain has improved since admission. He notes he is thus far tolerating liquid diet. Physical Exam Gastrointestinal (Abdomen): Abdomen is soft with minimal distention. There is no pain with palpation. Patient's ileostomy appears to be functioning properly there is a large amount of liquid stool in the collection bag. Results & Data ([facility]) Vital Signs (Past 12 Hours) Vital Signs Temp Pulse Pulse Resp BP BP Pulse Ox 08/31/21 04:00 100 08/31/21 03:51 37.2 C 78 17 123/68 08/30/21 23:15 36.6 C 82 17 159/82 H 93 08/30/21 21:50 36.5 C 120/62 08/30/21 21:40 73 109/69 08/30/21 21:20 71 113/65 08/30/21 21:00 69 108/63 08/30/21 20:40 69 114/62 08/30/21 20:20 69 89/57 L 08/30/21 20:00 69 102/63 08/30/21 19:40 62 113/59 L 08/30/21 19:20 65 103/52 L 08/30/21 19:00 65 134/75 08/30/21 18:50 36.3 C L 64 PG Care Time/CCT Total # of Minutes Spent Total Time Spent with Patient: Total time spent is greater than 50% in coordination of care (as documented) at patient's floor/unit and/or counseling patient: Coding Level of Care Code 69456 Subseq Hosp Care Lvl 1 Diagnoses Acute pseudo-obstruction of bowel K59.89
[2021-08-31] MEDS: LEVOTHYROXINE SODIUM 88 MCG TABLET PO SCH (06:17)
[2021-08-31 06:39] LABS: Basophils # (auto) 0.02 K/uL (0-0.2); Basophils % (auto) 0.2 %; Eosinophils % (auto) 4.2 %; Hematocrit (blood only) 35.6 % (42-52); Hemoglobin 11.2 g/dL (14.0-18.0); Immature Granulocytes # (auto) 0.03 K/uL (0.00-0.02); Immature Granulocytes % (auto) 0.3 %; Lymphocytes # (auto) 0.68 K/uL (1.2-3.4); Lymphocytes % (auto) 7.2 %; Mean Corpuscular Hemoglobin 32.3 pg (25-34); Mean Corpuscular Hgb Conc 31.5 g/dL (32-36); Mean Corpuscular Volume 102.6 fL (80-100); Mean Platelet Volume 9.7 fL (7.4-10.4); Monocytes # (auto) 1.58 K/uL (0.11-0.59); Monocytes % (auto) 16.7 %; Neutrophils # (auto) 6.76 K/uL (1.4-6.5); Neutrophils % (auto) 71.4 %; Platelet Count 133 K/uL (130-400); RDW Coefficient of Variation 16.1 % (11.5-14.5); RDW Standard Deviation 59.4 fL (36.4-46.3); Red Blood Count 3.47 M/uL (4.7-6.1); White Blood Count 9.47 K/uL (4.8-10.8)
[2021-08-31 07:26] LABS: Albumin Level 2.8 gm/dl (3.4-5.0); BUN Creatinine Ratio 3.9 (10-20); Bilirubin Direct 0.3 mg/dl (0-0.2); Calcium 9.1 mg/dl (8.5-10.1); Creatinine Clr Calc Pharmacy 12.8 ml/min; Est GFR (African American) 8.8 ml/min; Est GFR (Non-African American) 7.6 ml/min; Potassium 4.4 mmol/L (3.5-5.1); Total Protein 6.7 gm/dl (6.4-8.2)
--- NOTE | 2021-08-31 07:58 | Hospitalist Progress Note ---
Date of Service August 31, 2021 Assessment & Plan Admission and Anticipated Discharge Date Admission Date: August 29, 2021 Results & Data Results & Data ([facility]) Vital Signs (Past 12 Hours) Vital Signs Temp Pulse Pulse Resp BP BP Pulse Ox 08/31/21 06:09 36.7 C 68 15 129/69 98 08/31/21 04:00 100 08/31/21 03:51 37.2 C 78 17 123/68 08/30/21 23:15 36.6 C 82 17 159/82 H 93 08/30/21 21:50 36.5 C 120/62 08/30/21 21:40 73 109/69 08/30/21 21:20 71 113/65 08/30/21 21:00 69 108/63 08/30/21 20:40 69 114/62 08/30/21 20:20 69 89/57 L 08/30/21 20:00 69 102/63 Laboratory Results 08/31/21 08/31/21 08/31/21 Range/Units 05:31 05:31 05:31 WBC 9.47 (4.8-10.8) K/uL RBC 3.47 L (4.7-6.1) M/uL Hgb 11.2 L (14.0-18.0) g/dL Hct 35.6 L (42-52) % MCV 102.6 H (80-100) fL MCH 32.3 (25-34) pg MCHC 31.5 L (32-36) g/dL RDW Std Deviation 59.4 H (36.4-46.3) fL RDW Coeff of Jolanta 16.1 H (11.5-14.5) % Plt Count 133 (130-400) K/uL MPV 9.7 (7.4-10.4) fL Immature Gran % (Auto) 0.3 % Neut % (Auto) 71.4 % Lymph % (Auto) 7.2 % [place] % (Auto) 16.7 % Eos % (Auto) 4.2 % Baso % (Auto) 0.2 % Neut # (Auto) 6.76 H (1.4-6.5) K/uL Lymph # (Auto) 0.68 L (1.2-3.4) K/uL [place] # (Auto) 1.58 H (0.11-0.59) K/uL Eos # (Auto) 0.40 (0-0.5) K/uL Baso # (Auto) 0.02 (0-0.2) K/uL Immature Gran # (Auto) 0.03 H (0.00-0.02) K/uL Sodium 137 (136-145) mmol/L Potassium 4.4 (3.5-5.1) mmol/L Chloride 99 (98-107) mmol/L Carbon Dioxide 31 (21-32) mmol/L Anion Gap 7.0 (3-11) BUN 26 H (7-18) mg/dl Creatinine 6.50 H* D (0.6-1.4) mg/dl Est Cr Clr Drug Dosing 12.8 ml/min Est GFR ( Amer) 8.8 ml/min Est GFR (Non-Af Amer) 7.6 ml/min BUN/Creatinine Ratio 3.9 L (10-20) Glucose 97 (70-99) mg/dl Calcium 9.1 (8.5-10.1) mg/dl Total Bilirubin 1.0 (0.2-1) mg/dl Direct Bilirubin 0.3 H AST 21 (15-37) U/L ALT 22 (12-78) U/L Alkaline Phosphatase 141 H (45-117) U/L Total Protein 6.7 (6.4-8.2) gm/dl Albumin 2.8 L (3.4-5.0) gm/dl Hep Bs Antigen Pending 08/31/21 08/30/21 08/30/21 Range/Units 05:31 15:01 05:24 WBC (4.8-10.8) K/uL RBC (4.7-6.1) M/uL Hgb (14.0-18.0) g/dL Hct (42-52) % MCV (80-100) fL MCH (25-34) pg MCHC (32-36) g/dL RDW Std Deviation (36.4-46.3) fL RDW Coeff of Jolanta (11.5-14.5) % Plt Count (130-400) K/uL MPV (7.4-10.4) fL Immature Gran % (Auto) % Neut % (Auto) % Lymph % (Auto) % [place] % (Auto) % Eos % (Auto) % Baso % (Auto) % Neut # (Auto) (1.4-6.5) K/uL Lymph # (Auto) (1.2-3.4) K/uL [place] # (Auto) (0.11-0.59) K/uL Eos # (Auto) (0-0.5) K/uL Baso # (Auto) (0-0.2) K/uL Immature Gran # (Auto) (0.00-0.02) K/uL Sodium 138 (136-145) mmol/L Potassium 5.0 D (3.5-5.1) mmol/L Chloride 100 (98-107) mmol/L Carbon Dioxide 29 (21-32) mmol/L Anion Gap 9.0 (3-11) BUN 40 H (7-18) mg/dl Creatinine 8.50 H* D (0.6-1.4) mg/dl Est Cr Clr Drug Dosing 9.8 ml/min Est GFR ( Amer) 6.3 ml/min Est GFR (Non-Af Amer) 5.5 ml/min BUN/Creatinine Ratio 4.7 L (10-20) Glucose 121 H (70-99) mg/dl Calcium 9.2 (8.5-10.1) mg/dl Total Bilirubin 1.0 (0.2-1) mg/dl Direct Bilirubin TNP AST 34 (15-37) U/L ALT 23 (12-78) U/L Alkaline Phosphatase 160 H (45-117) U/L Total Protein 7.1 (6.4-8.2) gm/dl Albumin 3.0 L (3.4-5.0) gm/dl Hep Bs Antigen Cancelled PG Care Time/CCT Total # of Minutes Spent Total Time Spent with Patient: Total time spent is greater than 50% in coordination of care (as documented) at patient's floor/unit and/or counseling patient: Coding
[2021-08-31] MEDS: ASPIRIN 81 MG ECTAB PO SCH (08:04)
[2021-08-31] MEDS: CALCIUM ACETATE 667 MG CAP/TAB PO SCH ×3 (08:05→16:38)
[2021-08-31] MEDS: DICLOFENAC SOD 1% GEL 100 GM TUBE EXT SCH ×3 (08:05→16:38)
[2021-08-31] MEDS: PREGABALIN 75 MG CAP PO SCH (08:06)
[2021-08-31] MEDS: FAMOTIDINE 20 MG in SYRINGE 3 ML IV SCH (08:06)
[2021-08-31] MEDS: FLUTICASONE/VILANTEROL 200/25MCG 14 PUFFS/INHALER INH SCH (08:07)
[2021-08-31] MEDS: UMECLIDINIUM BROMIDE 62.5MCG/BLISTER 7 PUFFS/INHALER INH SCH (08:07)
[2021-08-31] MEDS: HEPARIN SOD 5,000 UNIT/0.5 ML VIAL SQ SCH (08:08)
[2021-08-31] MEDS: AMPICILLIN/SULBACTAM SOD 3,000 MG in 0.9 % SODIUM CHLORIDE 100 ML IV SCH (10:11)
--- NOTE | 2021-08-31 11:40 | Nephrology Progress Note ---
Date of Service August 31, 2021 Assessment & Plan (1) ESRD (end stage renal disease) on dialysis: Plan: Patient has ESRD on dialysis Thursday. He had dialysis yesterday which was uneventful. Labs are stable today. No signs of renal overload. No indication for dialysis today. From a renal standpoint patient can be discharged to continue dialysis outpatient on Thursday Admission and Anticipated Discharge Date Admission Date: August 29, 2021 Subjective Seen in follow-up for ESRD. He feels better today. No shortness of breath. Is still on oxygen nasal cannula. He had dialysis yesterday. Review of Systems Review of Systems: All other systems were reviewed and negative except as noted in HPI Physical Exam Physical Exam: General exam: Appears comfortable, no acute distress HEENT: Pupils are equal and reactive to light Neck: No JVD, neck is supple trachea is midline Respiratory system: Clear breath sounds bilaterally. Gastrointestinal: Abdomen is soft, non distended, non tender, bowel sounds are present CVS: Regular rate and rhythm. No murmurs, rubs or gallops Musculoskeletal: No joint or muscle tenderness Extremities: Non tender, no edema, peripheral pulses are present Neuro: Oriented, no tremors, no focal neurological deficits Skin: No rashes Results & Data ([facility]) Vital Signs (Past 12 Hours) Vital Signs Temp Pulse Resp BP Pulse Ox 08/31/21 06:09 36.7 C 68 15 129/69 98 08/31/21 04:00 100 08/31/21 03:51 37.2 C 78 17 123/68 Laboratory Results 08/31/21 05:31 08/31/21 08/31/21 05:31 05:31 WBC 9.47 RBC 3.47 L MCV 102.6 H MCH 32.3 MCHC 31.5 L RDW Std Deviation 59.4 H RDW Coeff of Jolanta 16.1 H Plt Count 133 MPV 9.7 Albumin 2.8 L
[2021-08-31] MEDS: PANTOprazole 40 MG in SYRINGE 0 ML IV SCH (12:08)
[2021-08-31] MEDS: CLOPIDOGREL BISULFATE 75 MG TAB PO SCH (12:08)
--- NOTE | 2021-08-31 13:18 | Discharge Summary ---
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 Patient states he was in his usual health yesterday. 11/3 AM he ate breakfast and remembers having normal stool output at that time. He went to dialysis yesterday in normal fashion. After getting home he didn't eat much but that it typical for him post-dialysis. About 11pm yesterday he did have some ileostomy output but it was significantly reduced relative to his normal output. He noted some stomach upset. He went to bed, and about 0330 he awoke with significant abdominal pain near his ostomy site. He had associated nausea. He checked his ostomy and he had NO output in the bag. He tried drinking tea to encourage GI transit and stool output but this had no effect. The pain persisted for the remainder of the night/this am prompting his visit to [facility]. He has had dry heaves this am and was unable to eat anything at home today. In the ER a CT a/p showed pseudo-obstruction of the small intestines due to fecal impaction in his ileum. A yoon was placed into the stoma and go-lytely was given without any effect. He required multiple doses of antiemetics in the ER along with pain medication. Admission Exam Per Admitting Provider Gen - NAD, awake, alert Skin - dry skin on face; stasis changes b/l shins; occasional abrasion/ulceration on madden; tiny abrasions/ulcers on toes of L foot Eyes - PERRL HENT - TMs not seen b/l due to cerumen, mouth - MM dry Neck - no JVD Heart - RRR, s1 s2, 2/6 FIDELIA LUSB; AV fistula RUE with bruit Lungs - hint of end-exp wheeze b/l, no rales, no increased work of breathing Abd - distended, BS+, no tenderness, stoma right abdomen is pink, no stool in ostomy bag; no HSM Ext - pulses b/l feet <1+; no edema Musculo - TMA right foot all toes Neuro - strength 5/5 x 4 exts; DTRs 2+ b/l Lymph - no cervical lymph nodes Principal Diagnosis Acute pseudo-obstruction of bowel Discharge Exam Constitutional + ill appearing (chronically ill appearing) and + morbidly obese; no acute distress uremic vaughan, general pallor Eyes PERRL, conjunctivae normal, anicteric sclerae Neck trachea midline, no thyromegaly Respiratory normal respiratory effort; no respiratory distress and no labored breathing Cardiovascular RRR, no murmur, no edema RUE fistula with +thrill Gastrointestinal (Abdomen) Inspection/Auscultation: + abdominal surgical scar Percussion/Palpation: abdomen soft; abdomen not rigid ostomy with liquid brown output Musculoskeletal no cyanosis or clubbing, extremities motor strength 5/5 Skin no rashes, warm and dry Neurologic patellar DTR's 2+ bilat, sensation intact Psychiatric A+Ox3, euthymic affect Genitourinary no yoon Lymphatic no cervical or axillary lymphadenopathy Discharge Data Allergies Allergy/AdvReac Type Severity Reaction Status Date / Time oxycodone AdvReac Severe DELIRIUM Verified 08/06/21 14:57 tramadol AdvReac Severe dizziness;a Verified 08/06/21 14:57 nxiety;sob gabapentin AdvReac Intermediate Nausea Verified 08/06/21 14:57 Consultations 08/29/21 16:07 ED Decision to Admit Stat 08/29/21 17:09 Consult General Surgery Routine 08/29/21 19:48 Consult Nephrology Routine Ordered Studies 08/29/21 11:10 CT abd pelvis wo con Stat Hospital Course (1) Acute pseudo-obstruction of bowel: Fecal impaction noted in the distal ileum on CT with extension of that stool into the ileostomy. Hx ischemic colitis requiring urgent surgery ~[address] Restrepo CTAP: Interval development of fecal impaction within the distal ileum and extending into the subcutaneous fat related to the patient's ileostomy. This produces pseudoobstruction with mild to moderate dilatation of the remaining small bowel loops. Fluid levels are present. No mucosal edema or inflammatory changes are present.Upstream bowels are dilated with resulting pseudo- obstruction. General surgery consult appreciated. They advised IV antibiotics - placed on Unasyn but suspected WBC elevation 2nd to obstruction Lavaged by wound RN Bowel rest, pain meds No NGT required IVF ordered along with dextrose and valtessa by Nephrology given ESRD patient MWF Repeat KUB with resolution of bowel obstruction, liquid diet given --> tolerated well and continued with ostomy output Advancement of diet with continued ostomy output, no n/v reported and discussed with general surgery ok for d/c from surgical standpoint consider rec hot water 15oz, turning and grape juice as options if recurs in future (2) Ileostomy in place: Created in 2019 following episode of severe ischemic colitis requiring subtotal colectomy. wound RN See #1 above. (3) Chronic respiratory failure with hypoxia: On home O2, 2 liters continuously--> currently stable on 2L and states breathing at baseline stable. No evidence of complicating pneumonia, volume overload, etc. COVID negative. (4) Hypothyroidism: TSH wnl Cont synthroid. (5) ESRD (end stage renal disease) on dialysis: Dialyzes at [facility] in [place]. [facility] manages. Schedule - M/W/. RUE AV fistula. Consult [facility] HD on 08/30 for 1.6L K was 6.1 and given Veltassa, IVF, dextrose BMP with improvement and cleared with nephrology ok for d/c and resume MWF as usual (6) COPD (chronic obstructive pulmonary disease): Stable. On home o2. No exacerbation. Cont home inhalers. (7) Chronic right-sided CHF (congestive heart failure): Compensated today. Defer on IVF given his cor pulmonale and ESRD -- see above No acute decompensation (8) CAD (coronary artery disease): No ischemic symptoms at this time. Cont asa, plavix. Cont statin. (9) GERD (gastroesophageal reflux disease): He takes both H2 maxim and PPI. Continue both - give IV. (10) Atrial fibrillation: Cont amiodarone QOD. 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 During your stay at [facility], we have made an effort to correct the problem that brought you to the hospital while keeping you as comfortable as possible. Medications were used to bring your condition under control and your discharge instructions will include directions for any medications you should take after leaving the hospital. Please make sure you see your Primary Care Provider as part of your follow up plan. Activity: Resume your previous activity Non-emergency contact: Primary Care Provider and Coffee Grinder Call non-emergency contact if: you have any medication questions, your symptoms worsen and your pain is not controlled Follow-up/Referrals: Pro,Emil Cam MD [Primary Care Provider] - Deanna Andrade PA-C [Physician [place]] - 09/10/21 10:15 am (Please follow up with Deanna Andrade PA-C on Thursday09/10/21 at 10:15 am. Please arrive to the office at 10:00 am for your appointment. If you are unable to keep this appointment, please call the office to reschedule at [phone].) Christina Landrum MD, PhD [Physician] - Diet: Dialysis Renal, Heart Healthy and Low Fiber Addtl Attending Provider Instructions: You have been hospitalized and found to have an obstruction of your bowels near the ostomy site. You were evaluated by general surgery and this was managed conservatively without need for surgery. Repeat imaging showed resolution and you have had ability to tolerate low fiber diet which should be continued for 2 weeks and then can advance back to your usual diet. Please follow up with Nephrology as routine for your HD. Please follow up with PCP in the next week to monitor your progress. Please ensure to stay well hydrated and monitor your ostomy output. Please return to the emergency department with any fever, chills, chest pain, worsening shortness of breath, abdominal pain or decreased ostomy output. It has been a pleasure being a part of the medical team providing for you while you were in the hospital. Take care! Pending Studies at Discharge: No Stand-Alone Forms: My whoactually, Smoking Cessation Medications and DC Order Prescriptions: Continued atorvastatin 40 mg tablet 40 mg PO HS Qty: 90 RF: 3 Breo Ellipta 200-25 mcg/dose blister with device 1 inh INHALATION QAM Qty: 84 RF: 3 levothyroxine 88 mcg tablet 88 mcg PO DAILY Qty: 90 RF: 3 paroxetine HCl 20 mg tablet 20 mg PO HS Qty: 90 RF: 3 Spiriva with HandiHaler 18 mcg capsule, w/inhalation device 1 cap INHALATION QAM Qty: 1 RF: 4 Lyrica 75 mg capsule 75 mg PO QAM Qty: 30 RF: 3 pantoprazole 40 mg tablet,delayed release (DR/EC) 40 mg PO QAM Qty: 90 RF: 3 amiodarone 200 mg tablet 200 mg PO Q OTHER DAY Qty: 14 RF: 5 temazepam 15 mg capsule 15 mg PO HS PRN (Reason: Sleep) Qty: 60 RF: 0 aspirin [Aspirin Low Dose] 81 mg Tablet,Delayed Release (Dr/Ec) 81 mg PO DAILY RF: 0 Triphrocaps 1 mg capsule 1 mg PO DAILY RF: 0 calcium acetate(phosphat bind) 667 mg Capsule 667 mg PO TIDM RF: 0 docusate sodium 100 mg capsule 100 mg PO HS RF: 0 sennosides [Senokot] 8.6 mg Tablet 8.6 mg PO DAILY PRN (Reason: Constipation) RF: 0 ipratropium-albuterol 0.5 mg-3 mg(2.5 mg base)/3 mL Solution For Nebulization 3 ml INHALATION Q4H PRN (Reason: Shortness Of Breath) RF: 0 lidocaine [Aspercreme (lidocaine HCl)] 4 % Adhesive Patch,Medicated 1 patch TOPICAL DAILY PRN (Reason: Pain) RF: 0 ropinirole 0.25 mg Tablet 0.25 mg PO HS RF: 0 nitroglycerin [Nitrostat] 0.4 mg Tablet, Sublingual 0.4 mg sublingual DIRECTED PRN (Reason: Chest Pain) RF: 0 alum-mag hydroxide-simeth 200-200-20 mg/5 mL Suspension 30 ml PO DIRECTED PRN (Reason: Indigestion) RF: 0 famotidine 20 mg tablet 20 mg PO 3XWK RF: 0 diclofenac sodium [Voltaren Arthritis Pain] 1 % gel 2 g topical QID Qty: 100 RF: 0 acetaminophen 325 mg capsule 650 mg PO QID PRN (Reason: pain) Qty: 30 RF: 0 clopidogrel 75 mg tablet 75 mg PO QDL RF: 0 (DME) Oxygen Home Liters Per Minute See Rx Instructions .ROUTE .MEDSUPPLY Qty: 1 RF: 0 Discharge Orders: Discharge Order (Routine); Ordered 08/31/21 Ordered By: Aimee Acuña Admission Data Admit Date/Time: 08/29/21 17:16 Attending Provider: Fatuma Araya Admit Provider: Tan Chacon Primary Care Provider: Emil Lazcano Other Providers: Amita Leone ; Tan Chacon ; Christina Landrum Other Interventions: Discharge Summary Assessment (RN) Last Done: 08/31/21 13:48 Supervising Physician Co-Signing Physician Notes PA Supervision Note: I personally saw and examined the patient. I verified all darnell points and agree with RISHABH Acuña with the following exceptions and/or additions: S-patient feeling much better at the time of discharge, no abdominal pain, with really good ileostomy output. Potassium levels had improved No acute issues O- Vitals reviewed Gen: AAOx3, NAD HEENT: Anicteric sclerae, EOMI CV: RRR no mgr nl S1S2 Pulm: Somewhat diminished breath sounds at the bases and throughout Abd: [+BS soft NT ND no masses or hernias, with ileostomy bag with brown liquid stool Ext: No edema Skin: With psoriasis appearing rash on forehead Neuro: Full strength throughout A/M-11-kfln-old chronically ill male here with pseudoobstruction of the distal ileum due to fecal impaction-now resolved Received inpatient dialysis here Stable for discharge to home Coding Level of Care Code D/C DAY MANAGEMENT >30 MINS Diagnoses Acute pseudo-obstruction of bowel K59.[address] Z93.2 Chronic respiratory failure with hypoxia J96.11 Hypothyroidism E03.9 ESRD (end stage renal disease) on dialysis N18.6; Z99.2 COPD (chronic obstructive pulmonary disease) J44.9 Chronic right-sided CHF (congestive heart failure) I50.812 CAD (coronary artery disease) I25.10 Associated angina: without angina Coronary Disease-Associated Artery/Lesion type: [place] artery [place] vs. transplanted heart: [place] heart GERD (gastroesophageal reflux disease) K21.9 Atrial fibrillation I48.91 DVT prophylaxis Z29.9
== END 2021-08-31 18:41 | disposition home health service (06) | DRG 393 ==
LOC: ED 10:23 → SUATTDRO 17:16 → EDINP 17:16 → 2S 18:37

== ENCOUNTER 2021-09-02 01:00 | Inpatient (IN) ==
[2021-09-02] MEDS ORDERED: HYDROmorphone INJ 0.5 MG/0.5 ML SYR IV STA ×2 (01:26→04:32)
[2021-09-02] MEDS ORDERED: SODIUM CHLORIDE 0.9% 500 ML IV ONE (01:26)
[2021-09-02] MEDS ORDERED: ONDANSETRON INJ 2 MG/ML 2 ML VIAL IV STA (01:26)
--- NOTE | 2021-09-02 01:59 | Emergency Department Note ---
Impression & Plan Small bowel obstruction Admit to the [facility] ED Provider Note NAME: RAMA AYERS AGE: 76 SEX: M ARRIVES VIA: Ambulance INFORMANT: Patient ED PROVIDER(S): Madiha Horowitz DO CHIEF COMPLAINT: Abdominal pain PLAN: Disposition: Admit to the [facility] Condition: Stable MEDICAL DECISION MAKING: This is a 76-year-old male patient with an ileostomy who presents to the emergency department with increasing abdominal pain and decreased output from the ileostomy. The patient was recently admitted here for the same complaint. At that time, he had a pseudoobstruction. The patient describes having no output since noon which was approximately 12 or 13 hours ago. Laboratory studies show a mildly elevated potassium. Triage Nursing notes reviewed and agree them. Prior medical records reviewed Vital Signs: reviewed and unremarkable Differential diagnosis: Blocked ileostomy, dehydration, small bowel obstruction ER treatment provided: IV Zofran IV normal saline IV Dilaudid x2 Diagnostics interpreted by me: Cardiac Monitoring: Sinus rhythm at 70 Laboratory studies: See below Imaging studies: As per stat rad Preliminary Findings Only See Final Report For Complete Findings CT ABDOMEN & PELVIS With Contrast: Comparison to August 29, 2021. Previous CABG with moderate cardiomegaly and severe coronary calcification. There is a trace right pleural effusion and mild right basilar atelectasis. Previous cholecystectomy with mild biliary duct prominence. There appears to be a 5 mm calculus in the distal common bile duct. The stomach and mid small bowel loops are distended with gas fluid levels within them suggesting ileus or low-grade bowel obstruction. The transition point appears to be the small bowel loop with anastomotic victor m in the central anterior pelvis on series to image #67. No pneumoperitoneum or free fluid. No abscess. Previous aortic stent graft. No significant residual aneurysm sac is seen. Severe atrophy of the kidneys with numerous renal cysts. Moderate to severe degenerative changes throughout the spine including severe endplate sclerosis and erosion at L4-5 and an old compression fracture at L2. HPI: 76/M arrives for evaluation of diffuse abdominal pain and vomiting. The patient has had increasing abdominal pain throughout the day today. He has had no significant output into his ileostomy since noon today. Around 6 PM this evening, the pain dramatically worsened. She describes eating only toast and drinking tea throughout the day today with very little output into the ostomy. Since the patient was discharged from the hospital, he has been instructed to avoid dairy products and eat two specific types of cereal. He has been doing this with minimal output from the ostomy. ROS: See above HPI for pertinent positives & negatives. A total of 10 systems reviewed and were otherwise negative. PAST MEDICAL HISTORY:See Below PAST SURGICAL HISTORY:See Below FAMILY HISTORY:See Below SOCIAL HISTORY:See Below HOME MEDICATIONS:See list ALLERGIES:See list VITALS:See Below PHYSICAL EXAMINATION: HEENT: Head - normocephalic and atraumatic. Pupils are equal, round, and reactive to light. Extraocular eye muscles are intact, and sclera are anicteric. Nose - moist nasal mucosa without discharge. Mouth - moist buccal mucosa. Oropharynx is nonerythematous and there is no tonsillar exudate or edema noted. Neck: Supple; no JVD or cervical lymphadenopathy Heart: Regular rate and rhythm. There is a normal S1 and S2 with no murmurs, clicks, or gallops appreciated. Lungs: Clear to auscultation bilaterally with no wheezes, rales, or rhonchi. Abdomen: Soft, significantly distended with high-pitched bowel sounds. There is diffuse tenderness with palpation. Extremities: No evidence of cyanosis, clubbing, or edema. There are easily palpable peripheral pulses. Skin: Pale, warm and dry with poor turgor and no rashes. ED COURSE: Times/Reassessments: 0110: The patient was evaluated in room A 3. An IV lock was initiated and labs were drawn as above. Patient was given a 500 cc bolus of saline. He was ordered 4 mg of IV Zofran and 0.5 mg of IV Dilaudid. He will go for CT scan of the abdomen/pelvis. Upon repeat evaluation, the patient is having increased pain and was given a second dose of IV Dilaudid. I reviewed the results of the scan with the patient and he will be admitted to the [facility]. I discussed the case with Dr. Mcnamara. Madiha Horowitz DO Past Med/Surg History Medical History (Updated 09/02/21 @ 07:04 by Madiha Horowitz DO) AAA (abdominal aortic aneurysm) Acute dyspnea Acute osteomyelitis of foot Anemia, chronic renal failure AV fistula right arm CAD (coronary artery disease) Chronic back pain Chronic GERD Chronic right-sided CHF (congestive heart failure) Chronic ulcer of great toe of left foot with fat layer exposed COPD (chronic obstructive pulmonary disease) COPD (chronic obstructive pulmonary disease) CVA (cerebral vascular accident) "NO RESIDUAL EFFECTS" PER RECORDS Dependence on renal dialysis Depression Dermatitis Diastolic CHF DVT (deep venous thrombosis) Elevated troponin Encounter for central line placement GERD (gastroesophageal reflux disease) H/O: gout Hyperkalemia Hyperlipidemia Hypothyroidism Ileostomy in place 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 (Dr Sj Restrepo) Memory loss or impairment Myocardial infarct, old 2010 Necrosis of colon Orthostatic hypotension Oxygen dependent Peripheral vascular disease Skin ulcers of both feet Valvular disease S/P MVR (2010); ?AVR PER RECORDS Vitamin D deficiency Surgical History Difficult intubation B/L Anteriogram, Right femoral to anterior tibial cadaver vein bypass= 08/06/18= Grade view 4, MAC 3 --> Glidescope #3, ETT 7.5 at [facility] H/O abdominal aortic aneurysm repair 2011 H/O [id number] bypass 2012 H/O mitral valve repair 2010; ?AVR PER RECORDS Hx of CABG S/P CABG X2 (DURING MVR) 2010 S/P AAA repair S/P ablation of atrial fibrillation S/P cholecystectomy S/P femoral-popliteal bypass surgery S/P MVR (mitral valve repair) Status post transmetatarsal amputation of right foot Family History Mother Essential hypertension Father , age 76 Myocardial infarction Denies family history of Colon cancer Ovarian cancer Prostate cancer Breast cancer Social History Smoking Status: Never smoker Tobacco Type: Cigarettes Years Smoked: 5; Second Hand Exposure: No; Hx Alcohol Use: No Hx Substance Use: No Preferred Language: Albanian Communication Ability: Effective Visual Impairment: No Limitations Hearing Ability: Normal Airline Ticket Agent Required: No Beliefs That Will Affect Care: None marital status: / marital status details: 1 daughter Current Living Situation: Family Current Living Situation Comment: sister takes care of patient and patient's mother 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 Feels Safe at Home: Yes Childhood Exposure to Second-Hand Smoke: No Dental Care, Regularly: Yes Physical Activity Frequency: Other Physical Activity Frequency Comment: Physical activity limited by patients medical conditions Seatbelt Use: always Sunscreen Use: Yes Assistive Devices: Glasses and Oxygen - Continuous Allergies Allergies Allergy/AdvReac Type Severity Reaction Status Date / Time oxycodone AdvReac Severe DELIRIUM Verified 09/02/21 01:52 tramadol AdvReac Severe dizziness;a Verified 09/02/21 01:52 nxiety;sob gabapentin AdvReac Intermediate Nausea Verified 09/02/21 01:52 Home Meds Home Medications Medication Instructions Recorded Confirmed calcium acetate(phosphat bind) 667 667 mg PO TIDM 08/23/18 09/02/21 mg capsule docusate sodium 100 mg capsule 100 mg PO HS 05/31/19 09/02/21 aspirin 81 mg tablet,delayed 81 mg PO DAILY 05/01/20 09/02/21 release (Aspirin Low Dose) vitamin B complex and vitamin C 1 mg PO DAILY 05/01/20 09/02/21 no.20-folic acid 1 mg capsule (Triphrocaps) aluminum-mag hydroxide-simethicone 30 ml PO DIRECTED PRN 04/08/21 09/02/21 200 mg-200 mg-20 mg/5 mL oral susp famotidine 20 mg tablet 20 mg PO 3XWK 04/08/21 09/02/21 ipratropium 0.5 mg-albuterol 3 mg 3 ml INHALATION Q4H PRN 04/08/21 09/02/21 (2.5 mg base)/3 mL nebulization soln lidocaine 4 % topical patch 1 patch TOPICAL DAILY PRN 04/08/21 09/02/21 (Aspercreme (lidocaine)) nitroglycerin 0.4 mg sublingual 0.4 mg SUBLINGUAL DIRECTED PRN 04/08/21 09/02/21 tablet (Nitrostat) ropinirole 0.25 mg tablet 0.25 mg PO HS 04/08/21 09/02/21 sennosides 8.6 mg tablet (Senokot) 8.6 mg PO DAILY PRN 04/08/21 09/02/21 clopidogrel 75 mg tablet 75 mg PO QDL 05/31/21 09/02/21 Previous Rx's Medication Instructions Recorded atorvastatin 40 mg tablet 40 mg PO HS #90 tab 11/13/20 fluticasone furoate 200 1 inh INHALATION QAM #84 ea 11/23/20 mcg-vilanterol 25 mcg/dose inhalation powder (Breo Ellipta) levothyroxine 88 mcg tablet 88 mcg PO DAILY #90 tab 11/23/20 paroxetine HCl 20 mg tablet 20 mg PO HS #90 tab 01/21/21 tiotropium bromide 18 mcg capsule 1 cap INHALATION QAM #1 inh 03/27/21 with inhalation device (Spiriva with HandiHaler) acetaminophen 325 mg capsule 650 mg PO QID PRN #30 cap 04/13/21 diclofenac sodium 1 % topical gel 2 g TOPICAL QID #100 g 04/13/21 (Voltaren Arthritis Pain) pregabalin 75 mg capsule (Lyrica) 75 mg PO QAM #30 cap 05/15/21 Oxygen Home #1 ea 06/04/21 amiodarone 200 mg tablet 200 mg PO Q OTHER DAY #14 tab 07/11/21 pantoprazole 40 mg tablet,delayed 40 mg PO QAM #90 tab 07/11/21 release temazepam 15 mg capsule 15 mg PO HS PRN #60 cap 08/19/21 Results & Data (ED) Vital Signs Vital Signs - 24 hr 09/02/21 01:10 09/02/21 03:00 09/02/21 05:00 Temperature 36.6 C Temperature Source Oral Pulse Rate 71 Pulse Rate [Right Finger] 70 60 Pulse Rhythm [Right Finger] Regular Pulse Strength [Right Finger] Normal Respiratory Rate 16 16 18 Respiratory Effort / Characteristics Non-Labored Spontaneous Respiratory Depth Normal Respiratory Pattern Regular Blood Pressure 137/70 Blood Pressure [Right Calf] 149/50 H Blood Pressure Mean 92 Blood Pressure Mean [Right Calf] 83 Blood Pressure Position Sitting Blood Pressure Position [Right Calf] Sitting Pulse Oximetry 99 96 99 Oxygen Delivery Method Nasal Cannula Nasal Cannula Nasal Cannula Oxygen Flow Rate 2 2 2 Sepsis Recent Fever Within 48 Hours No Sepsis New/Unexplained Change in Mental Status No Sepsis Action Taken by Nursing No Action Required Laboratory Data Result diagrams: 09/02/21 02:05 09/02/21 03:33 Lab Results 09/02/21 09/02/21 09/02/21 Range/Units 02:05 02:05 03:33 WBC 10.01 (4.8-10.8) K/uL RBC 3.72 L (4.7-6.1) M/uL Hgb 12.2 L (14.0-18.0) g/dL Hct 36.5 L (42-52) % MCV 98.1 (80-100) fL MCH 32.8 (25-34) pg MCHC 33.4 (32-36) g/dL RDW Std Deviation 56.0 H (36.4-46.3) fL RDW Coeff of Jolanta 15.5 H (11.5-14.5) % Plt Count 127 L (130-400) K/uL MPV 9.4 (7.4-10.4) fL Immature Gran % (Auto) 0.6 % Neut % (Auto) 74.4 % Lymph % (Auto) 13.8 % Patrick % (Auto) 8.7 % Eos % (Auto) 2.3 % Baso % (Auto) 0.2 % Neut # (Auto) 7.45 H (1.4-6.5) K/uL Lymph # (Auto) 1.38 (1.2-3.4) K/uL Patrick # (Auto) 0.87 H (0.11-0.59) K/uL Eos # (Auto) 0.23 (0-0.5) K/uL Baso # (Auto) 0.02 (0-0.2) K/uL Immature Gran # (Auto) 0.06 H (0.00-0.02) K/uL Sodium 134 L (136-145) mmol/L Potassium 5.2 H D (3.5-5.1) mmol/L Chloride 97 L (98-107) mmol/L Carbon Dioxide 26 (21-32) mmol/L Anion Gap 11.0 (3-11) BUN 57 H D (7-18) mg/dl Creatinine 11.00 H* D (0.6-1.4) mg/dl Est Cr Clr Drug Dosing 6.8 ml/min Est GFR ( Amer) 4.6 ml/min Est GFR (Non-Af Amer) 4.0 ml/min BUN/Creatinine Ratio 5.2 L (10-20) Glucose 107 H (70-99) mg/dl Calcium 9.1 (8.5-10.1) mg/dl Total Bilirubin 0.7 (0.2-1) mg/dl AST 20 (15-37) U/L ALT 27 (12-78) U/L Alkaline Phosphatase 158 H (45-117) U/L Total Protein 7.9 (6.4-8.2) gm/dl Albumin 3.1 L (3.4-5.0) gm/dl Globulin 4.8 H (2.5-4.0) gm/dl Albumin/Globulin Ratio 0.6 L (0.9-2) Lipase 245 (73-393) U/L COVID-19 Eval Order SARS-CoV-2 (PCR) (Negative) 09/02/21 09/02/21 Range/Units 05:20 05:20 WBC (4.8-10.8) K/uL RBC (4.7-6.1) M/uL Hgb (14.0-18.0) g/dL Hct (42-52) % MCV (80-100) fL MCH (25-34) pg MCHC (32-36) g/dL RDW Std Deviation (36.4-46.3) fL RDW Coeff of Jolanta (11.5-14.5) % Plt Count (130-400) K/uL MPV (7.4-10.4) fL Immature Gran % (Auto) % Neut % (Auto) % Lymph % (Auto) % Patrick % (Auto) % Eos % (Auto) % Baso % (Auto) % Neut # (Auto) (1.4-6.5) K/uL Lymph # (Auto) (1.2-3.4) K/uL Patrick # (Auto) (0.11-0.59) K/uL Eos # (Auto) (0-0.5) K/uL Baso # (Auto) (0-0.2) K/uL Immature Gran # (Auto) (0.00-0.02) K/uL Sodium (136-145) mmol/L Potassium (3.5-5.1) mmol/L Chloride (98-107) mmol/L Carbon Dioxide (21-32) mmol/L Anion Gap (3-11) BUN (7-18) mg/dl Creatinine (0.6-1.4) mg/dl Est Cr Clr Drug Dosing ml/min Est GFR ( Amer) ml/min Est GFR (Non-Af Amer) ml/min BUN/Creatinine Ratio (10-20) Glucose (70-99) mg/dl Calcium (8.5-10.1) mg/dl Total Bilirubin (0.2-1) mg/dl AST (15-37) U/L ALT (12-78) U/L Alkaline Phosphatase (45-117) U/L Total Protein (6.4-8.2) gm/dl Albumin (3.4-5.0) gm/dl Globulin (2.5-4.0) gm/dl Albumin/Globulin Ratio (0.9-2) Lipase (73-393) U/L COVID-19 Eval Order Covid19 at [facility] SARS-CoV-2 (PCR) NEGATIVE (Negative) Administered Medications Discontinued Medications Hydromorphone HCl (Hydromorphone Inj 0.5 Mg/0.5 Ml Syr) 0.5 mg IV NOW STA Stop: 09/02/21 01:27 Last Admin: 09/02/21 03:00 Dose: 0.5 mg Documented by: [id number] Hydromorphone HCl (Hydromorphone Inj 0.5 Mg/0.5 Ml Syr) 0.5 mg IV NOW STA Stop: 09/02/21 04:33 Last Admin: 09/02/21 04:37 Dose: 0.5 mg Documented by: [id number] Sodium Chloride (Nss) 500 mls @ 999 mls/hr IV .Q31M ONE Stop: 09/02/21 01:56 Last Infusion: 09/02/21 05:11 Dose: 0 mls/hr Documented by: [id number] Admin: 09/02/21 03:00 Dose: 999 mls/hr Documented by: [id number] Ioversol (Optiray 320 100ml) 100 ml IV ONCE ONE Stop: 09/02/21 02:55 Last Admin: 09/02/21 02:54 Dose: 93 ml Documented by: [id number] Ondansetron HCl (Ondansetron Inj 2 Mg/Ml 2 Ml Vial) 4 mg IV NOW STA Stop: 09/02/21 01:27 Last Admin: 09/02/21 03:00 Dose: 4 mg Documented by: [id number] Discharge Plan Visit Data Chief Complaint: Abdominal Pain Stated Complaint: ABDOMINAL PAIN ED Provider: Madiha Horowitz Discharge Problem: Small bowel obstruction Forms Stand Alone Forms: My [facility] Prescriptions Prescriptions: No Action atorvastatin 40 mg tablet 40 mg PO HS Qty: 90 RF: 3 Breo Ellipta 200-25 mcg/dose blister with device 1 inh INHALATION QAM Qty: 84 RF: 3 levothyroxine 88 mcg tablet 88 mcg PO DAILY Qty: 90 RF: 3 paroxetine HCl 20 mg tablet 20 mg PO HS Qty: 90 RF: 3 Spiriva with HandiHaler 18 mcg capsule, w/inhalation device 1 cap INHALATION QAM Qty: 1 RF: 4 Lyrica 75 mg capsule 75 mg PO QAM Qty: 30 RF: 3 pantoprazole 40 mg tablet,delayed release (DR/EC) 40 mg PO QAM Qty: 90 RF: 3 amiodarone 200 mg tablet 200 mg PO Q OTHER DAY Qty: 14 RF: 5 temazepam 15 mg capsule 15 mg PO HS PRN (Reason: Sleep) Qty: 60 RF: 0 aspirin [Aspirin Low Dose] 81 mg Tablet,Delayed Release (Dr/Ec) 81 mg PO DAILY RF: 0 Triphrocaps 1 mg capsule 1 mg PO DAILY RF: 0 calcium acetate(phosphat bind) 667 mg Capsule 667 mg PO TIDM RF: 0 docusate sodium 100 mg capsule 100 mg PO HS RF: 0 sennosides [Senokot] 8.6 mg Tablet 8.6 mg PO DAILY PRN (Reason: Constipation) RF: 0 ipratropium-albuterol 0.5 mg-3 mg(2.5 mg base)/3 mL Solution For Nebulization 3 ml INHALATION Q4H PRN (Reason: Shortness Of Breath) RF: 0 lidocaine [Aspercreme (lidocaine HCl)] 4 % Adhesive Patch,Medicated 1 patch TOPICAL DAILY PRN (Reason: Pain) RF: 0 ropinirole 0.25 mg Tablet 0.25 mg PO HS RF: 0 nitroglycerin [Nitrostat] 0.4 mg Tablet, Sublingual 0.4 mg sublingual DIRECTED PRN (Reason: Chest Pain) RF: 0 alum-mag hydroxide-simeth 200-200-20 mg/5 mL Suspension 30 ml PO DIRECTED PRN (Reason: Indigestion) RF: 0 famotidine 20 mg tablet 20 mg PO 3XWK RF: 0 diclofenac sodium [Voltaren Arthritis Pain] 1 % gel 2 g topical QID Qty: 100 RF: 0 acetaminophen 325 mg capsule 650 mg PO QID PRN (Reason: pain) Qty: 30 RF: 0 clopidogrel 75 mg tablet 75 mg PO QDL RF: 0 (DME) Oxygen Home Liters Per Minute See Rx Instructions .ROUTE .MEDSUPPLY Qty: 1 RF: 0 Referrals Referrals: Emil Lazcano MD [Primary Care Provider] -
[2021-09-02 02:22] LABS: Basophils # (auto) 0.02 K/uL (0-0.2); Basophils % (auto) 0.2 %; Eosinophils # (auto) 0.23 K/uL (0-0.5); Eosinophils % (auto) 2.3 %; Hematocrit (blood only) 36.5 % (42-52); Hemoglobin 12.2 g/dL (14.0-18.0); Immature Granulocytes # (auto) 0.06 K/uL (0.00-0.02); Immature Granulocytes % (auto) 0.6 %; Lymphocytes # (auto) 1.38 K/uL (1.2-3.4); Lymphocytes % (auto) 13.8 %; Mean Corpuscular Hemoglobin 32.8 pg (25-34); Mean Corpuscular Hgb Conc 33.4 g/dL (32-36); Mean Corpuscular Volume 98.1 fL (80-100); Mean Platelet Volume 9.4 fL (7.4-10.4); Monocytes # (auto) 0.87 K/uL (0.11-0.59); Monocytes % (auto) 8.7 %; Neutrophils # (auto) 7.45 K/uL (1.4-6.5); Neutrophils % (auto) 74.4 %; Platelet Count 127 K/uL (130-400); RDW Coefficient of Variation 15.5 % (11.5-14.5); Red Blood Count 3.72 M/uL (4.7-6.1); White Blood Count 10.01 K/uL (4.8-10.8)
[2021-09-02] MEDS ORDERED: OPTIRAY 320 100ml IV ONE (02:54)
[2021-09-02 02:57] LABS: Albumin Globulin Ratio 0.6 (0.9-2); Albumin Level 3.1 gm/dl (3.4-5.0); BUN Creatinine Ratio 5.2 (10-20); Bilirubin,Total 0.7 mg/dl (0.2-1); Calcium 9.1 mg/dl (8.5-10.1); Creatinine Clr Calc Pharmacy 6.8 ml/min; Est GFR (African American) 4.6 ml/min; Globulin 4.8 gm/dl (2.5-4.0); Total Protein 7.9 gm/dl (6.4-8.2)
[2021-09-02 04:51] LABS: Potassium 5.2 mmol/L (3.5-5.1)
--- NOTE | 2021-09-02 05:48 | History & Physical Report ---
Date of Service September 02, 2021 Assessment & Plan (1) Small bowel obstruction: Plan: Patient with ileostomy in place since 2019, recent admission for pseudo- obstruction of ileostomy, fecal impaction presenting with recurrent abdominal pain, distention. CT suggestive of recurrent SBO. Also with gallstone in CBD - ?gallstone ileus -Admit to medical -Keep NPO -Ostomy management -Gentle IVF, electrolyte repletion -Zofran as needed -Pain control -NGT if patient has worsening pain, nausea or distention -GI Consultation for stone noted in CBD (2) CAD (coronary artery disease): Plan: Chronic. Stable -Continue ASA -Continue Plavix -Continue Atorvastatin (3) Atrial fibrillation: Plan: Rate controlled -Continue Amiodarone (4) ESRD (end stage renal disease) on dialysis: Plan: ESRD on HD M/W/F - patient follows with Dr. Landrum -Nephrology consultation appreciated -Continue Nephrocaps, PhosLo (5) Hypothyroidism: Plan: Chronic. -Continue Synthroid 88 mcg daily (6) Hyperlipidemia: Plan: Chronic -Continue Atorvastatin (7) COPD (chronic obstructive pulmonary disease): Plan: Chronic. Stable -Continue supplemental O2 at home level -Continue Breo Ellipta, DuoNebs (8) GERD (gastroesophageal reflux disease): Plan: Chronic. Stable -Continue Pepcid and Protonix (9) Gallstone: Plan: Noted on CT Abdomen. 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 Patient found to have a pseudo-obstruction of the small intestines due to a fecal impaction at the distal ileum extending into the subcutaneous fat. A yoon was placed in the stoma and Go-Lytely was administered. Patient was also evaluated by General Surgery. He was treated with Unasyn, bowel rest and pain medications. Patient's obstruction resolved. He was discharged home in improved condition on 08/31/21. He returns with recurrence of abdominal pain and distention as well as decreased output from his ostomy. The pain started yesterday afternoon (09/01/21). Patient has had diminished output since around noon. No additional complaints at this time - he denies fever, chills, cough, SOB. Denies nausea at present, no vomiting. No additional complaints at this time. ER Course: NSS x 500mL, Zofran, Dilaudid Allergies Allergy/AdvReac Type Severity Reaction Status Date / Time oxycodone AdvReac Severe DELIRIUM Verified 09/02/21 01:52 tramadol AdvReac Severe dizziness;a Verified 09/02/21 01:52 nxiety;sob gabapentin AdvReac Intermediate Nausea Verified 09/02/21 01:52 Home Medications Medication Instructions Recorded Confirmed Type calcium acetate(phosphat bind) 667 667 mg PO TIDM 08/23/18 09/02/21 History mg capsule docusate sodium 100 mg capsule 100 mg PO HS 05/31/19 09/02/21 History aspirin 81 mg tablet,delayed 81 mg PO DAILY 05/01/20 09/02/21 History release (Aspirin Low Dose) vitamin B complex and vitamin C 1 mg PO DAILY 05/01/20 09/02/21 History no.20-folic acid 1 mg capsule (Triphrocaps) atorvastatin 40 mg tablet 40 mg PO HS #90 tab 11/13/20 09/02/21 Rx fluticasone furoate 200 1 inh INHALATION QAM #84 ea 11/23/20 09/02/21 Rx mcg-vilanterol 25 mcg/dose inhalation powder (Breo Ellipta) levothyroxine 88 mcg tablet 88 mcg PO DAILY #90 tab 11/23/20 09/02/21 Rx paroxetine HCl 20 mg tablet 20 mg PO HS #90 tab 01/21/21 09/02/21 Rx tiotropium bromide 18 mcg capsule 1 cap INHALATION QAM #1 inh 03/27/21 09/02/21 Rx with inhalation device (Spiriva with HandiHaler) aluminum-mag hydroxide-simethicone 30 ml PO DIRECTED PRN 04/08/21 09/02/21 History 200 mg-200 mg-20 mg/5 mL oral susp famotidine 20 mg tablet 20 mg PO 3XWK 04/08/21 09/02/21 History ipratropium 0.5 mg-albuterol 3 mg 3 ml INHALATION Q4H PRN 04/08/21 09/02/21 History (2.5 mg base)/3 mL nebulization soln lidocaine 4 % topical patch 1 patch TOPICAL DAILY PRN 04/08/21 09/02/21 History (Aspercreme (lidocaine)) nitroglycerin 0.4 mg sublingual 0.4 mg SUBLINGUAL DIRECTED PRN 04/08/21 09/02/21 History tablet (Nitrostat) ropinirole 0.25 mg tablet 0.25 mg PO HS 04/08/21 09/02/21 History sennosides 8.6 mg tablet (Senokot) 8.6 mg PO DAILY PRN 04/08/21 09/02/21 History acetaminophen 325 mg capsule 650 mg PO QID PRN #30 cap 04/13/21 09/02/21 Rx diclofenac sodium 1 % topical gel 2 g TOPICAL QID #100 g 04/13/21 09/02/21 Rx (Voltaren Arthritis Pain) pregabalin 75 mg capsule (Lyrica) 75 mg PO QAM #30 cap 05/15/21 09/02/21 Rx clopidogrel 75 mg tablet 75 mg PO QDL 05/31/21 09/02/21 History Oxygen Home #1 ea 06/04/21 08/06/21 Rx amiodarone 200 mg tablet 200 mg PO Q OTHER DAY #14 tab 07/11/21 09/02/21 Rx pantoprazole 40 mg tablet,delayed 40 mg PO QAM #90 tab 07/11/21 09/02/21 Rx release temazepam 15 mg capsule 15 mg PO HS PRN #60 cap 08/19/21 09/02/21 Rx Past Med/Surg History Medical History (Updated 09/02/21 @ 05:50 by Hawa Mcnamara DO) AAA (abdominal aortic aneurysm) Acute dyspnea Acute osteomyelitis of foot Anemia, chronic renal failure AV fistula right arm CAD (coronary artery disease) Chronic back pain Chronic GERD Chronic right-sided CHF (congestive heart failure) Chronic ulcer of great toe of left foot with fat layer exposed COPD (chronic obstructive pulmonary disease) COPD (chronic obstructive pulmonary disease) CVA (cerebral vascular accident) "NO RESIDUAL EFFECTS" PER RECORDS Dependence on renal dialysis Depression Dermatitis Diastolic CHF DVT (deep venous thrombosis) Elevated troponin Encounter for central line placement GERD (gastroesophageal reflux disease) H/O: gout Hyperkalemia Hyperlipidemia Hypothyroidism Ileostomy in place 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 (Dr Sj Restrepo) Memory loss or impairment Myocardial infarct, old 2010 Necrosis of colon Orthostatic hypotension Oxygen dependent Peripheral vascular disease Skin ulcers of both feet Valvular disease S/P MVR (2010); ?AVR PER RECORDS Vitamin D deficiency Surgical History Difficult intubation B/L Anteriogram, Right femoral to anterior tibial cadaver vein bypass= 08/06/18= Grade view 4, MAC 3 --> Glidescope #3, ETT 7.5 at [facility] H/O abdominal aortic aneurysm repair 2011 H/O [id number] bypass 2012 H/O mitral valve repair 2010; ?AVR PER RECORDS Hx of CABG S/P CABG X2 (DURING MVR) 2010 S/P AAA repair S/P ablation of atrial fibrillation S/P cholecystectomy S/P femoral-popliteal bypass surgery S/P MVR (mitral valve repair) Status post transmetatarsal amputation of right foot Family History Mother Essential hypertension Father , age 76 Myocardial infarction Denies family history of Colon cancer Ovarian cancer Prostate cancer Breast cancer Social History Smoking Status: Never smoker Tobacco Type: Cigarettes Years Smoked: 5; Second Hand Exposure: No; Hx Alcohol Use: No Hx Substance Use: No Preferred Language: Tajik Communication Ability: Effective Visual Impairment: No Limitations Hearing Ability: Normal Senior Science Consultant Required: No Beliefs That Will Affect Care: None marital status: / marital status details: 1 daughter Current Living Situation: Family Current Living Situation Comment: sister takes care of patient and patient's mother 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 Feels Safe at Home: Yes Childhood Exposure to Second-Hand Smoke: No Dental Care, Regularly: Yes Physical Activity Frequency: Other Physical Activity Frequency Comment: Physical activity limited by patients medical conditions Seatbelt Use: always Sunscreen Use: Yes Assistive Devices: Glasses and Oxygen - Continuous Review of Systems Review of Systems: All systems reviewed & are unremarkable except as noted in HPI & below Physical Exam Physical Exam: General: patient resting comfortably, NAD, non-toxic in appearance, AA&O x 4 Skin: warm, dry, flaking, no infection HEENT: NC/AT, PERRL, EOMI, anicteric sclera, conjunctiva without injection, external ear normal to inspection and nontender, nares patent, moist mucus membranes, dentition intact, no oropharyngeal lesions, neck supple, trachea midline, no LAD, no thyromegaly, no JVD Heart: +S1/S2, regular, 2/6 FIDELIA at LSB Lungs: equal air entry bilaterally, no rales/rhonchi/wheezes Abd: +BS, soft, mildly tender with deep palpation, no rebound/guarding;/peritoneal signs. Ostomy in place with pink stoma, small amount of stool in bag with gas Ext: warm, diminished pulses, s/p right TMA, RUE AV fistula with palpable thrill Neuro: nonfocal, patient AA&O x 4, speech intact, no facial droop, moving all extremities on command with equal strength 5/5 Results & Data Results & Data ([facility]) Vital Signs (Past 12 Hours) Vital Signs Temp Pulse Pulse Resp BP BP Pulse Ox 09/02/21 05:00 60 18 149/50 H 99 09/02/21 03:00 70 16 96 09/02/21 01:10 36.6 C 71 16 137/70 99 Laboratory Results Laboratory Results WBC 10.01 K/uL (4.8-10.8) 09/02/21 02:05 RBC 3.72 M/uL (4.7-6.1) L 09/02/21 02:05 Hgb 12.2 g/dL (14.0-18.0) L 09/02/21 02:05 Hct 36.5 % (42-52) L 09/02/21 02:05 MCV 98.1 fL (80-100) 09/02/21 02:05 MCH 32.8 pg (25-34) 09/02/21 02:05 MCHC 33.4 g/dL (32-36) 09/02/21 02:05 RDW Std Deviation 56.0 fL (36.4-46.3) H 09/02/21 02:05 RDW Coeff of Jolanta 15.5 % (11.5-14.5) H 09/02/21 02:05 Plt Count 127 K/uL (130-400) L 09/02/21 02:05 MPV 9.4 fL (7.4-10.4) 09/02/21 02:05 Immature Gran % (Auto) 0.6 % 09/02/21 02:05 Neut % (Auto) 74.4 % 09/02/21 02:05 Lymph % (Auto) 13.8 % 09/02/21 02:05 [place] % (Auto) 8.7 % 09/02/21 02:05 Eos % (Auto) 2.3 % 09/02/21 02:05 Baso % (Auto) 0.2 % 09/02/21 02:05 Neut # (Auto) 7.45 K/uL (1.4-6.5) H 09/02/21 02:05 Lymph # (Auto) 1.38 K/uL (1.2-3.4) 09/02/21 02:05 [place] # (Auto) 0.87 K/uL (0.11-0.59) H 09/02/21 02:05 Eos # (Auto) 0.23 K/uL (0-0.5) 09/02/21 02:05 Baso # (Auto) 0.02 K/uL (0-0.2) 09/02/21 02:05 Immature Gran # (Auto) 0.06 K/uL (0.00-0.02) H 09/02/21 02:05 Sodium 134 mmol/L (136-145) L 09/02/21 02:05 Potassium 5.2 mmol/L (3.5-5.1) H D 09/02/21 03:33 Chloride 97 mmol/L (98-107) L 09/02/21 02:05 Carbon Dioxide 26 mmol/L (21-32) 09/02/21 02:05 Anion Gap 11.0 (3-11) 09/02/21 02:05 BUN 57 mg/dl (7-18) H D 09/02/21 02:05 Creatinine 11.00 mg/dl (0.6-1.4) H* D 09/02/21 02:05 Est Cr Clr Drug Dosing 6.8 ml/min 09/02/21 02:05 Est GFR ( Amer) 4.6 ml/min 09/02/21 02:05 Est GFR (Non-Af Amer) 4.0 ml/min 09/02/21 02:05 BUN/Creatinine Ratio 5.2 (10-20) L 09/02/21 02:05 Glucose 107 mg/dl (70-99) H 09/02/21 02:05 Calcium 9.1 mg/dl (8.5-10.1) 09/02/21 02:05 Total Bilirubin 0.7 mg/dl (0.2-1) 09/02/21 02:05 AST 20 U/L (15-37) 09/02/21 03:33 ALT 27 U/L (12-78) 09/02/21 02:05 Alkaline Phosphatase 158 U/L (45-117) H 09/02/21 02:05 Total Protein 7.9 gm/dl (6.4-8.2) 09/02/21 02:05 Albumin 3.1 gm/dl (3.4-5.0) L 09/02/21 02:05 Globulin 4.8 gm/dl (2.5-4.0) H 09/02/21 02:05 Albumin/Globulin Ratio 0.6 (0.9-2) L 09/02/21 02:05 Lipase 245 U/L (73-393) 09/02/21 02:05 COVID-19 Eval Order Covid19 at [facility] 09/02/21 05:[address] Abdomen - Per STAT rad - previous CABG withmoderate cardiomegaly and severe coronary calcification. THere is trace right pleural effusion and mild right basilar atelectasis. Previous cholecystectomy with mild biliary duct prominence. There appears to be a 5mm calculus in the distal CBD. The stomach and mid small bowel loops are distended with gas fluid levels within them suggesting ileus or low-grade bowel obstruction. The transition point seems to be in the small bowel loop with anastomotic victor m in the central anterior pelvis. No pneumoperitoneaum or free fluid. NO abscess. Previous aortic stent graft. No significant residual aneurysm sac is seen. Severe atrophy of the kidneys with numerous renal cysts. Moderate to severe degenerative changes throughout the spine including severe endplate sclerosis and erosion at L4-L5 and an old compression fracture at L2. Code Status & VTE Plan VTE Prophylaxis Plan VTE Prophylaxis will be ordered: Yes PG Care Time/CCT Total # of Minutes Spent Total Time Spent with Patient: Total time spent is greater than 50% in coordination of care (as documented) at patient's floor/unit and/or counseling patient: Coding Level of Care Code 28329 Initial Inpt Care Lvl 3 Diagnoses CAD (coronary artery disease) I25.10 Coronary Disease-Associated Artery/Lesion type: [place] artery [place] vs. transplanted heart: [place] heart Associated angina: without angina ESRD (end stage renal disease) on dialysis N18.6; Z99.2 Hypothyroidism E03.9 Hyperlipidemia E78.5 COPD (chronic obstructive pulmonary disease) J44.9 GERD (gastroesophageal reflux disease) K21.9 Small bowel obstruction K56.609 Gallstone K80.20 Atrial fibrillation I48.91 (1) CAD (coronary artery disease) Coronary Disease-Associated Artery/Lesion type: [place] artery [place] vs. transplanted heart: [place] heart Associated angina: without angina Qualified Code(s): I25.10 - Atherosclerotic heart disease of [place]q coronary artery without angina pectoris
--- NOTE | 2021-09-02 08:57 | CT Scan Report ---
CT abd pelvis IV con only CLINICAL HISTORY: Abdominal pain. Previous fecal impaction and pseudoobstruction. Reevaluate for obst ruction. COMPARISON STUDY: 08/29/2021 CT DOSE: 833.09 mGy.cm TECHNIQUE: Standard CT of the Abdomen and Pelvis was performed with IV contrast. A dose lowering jordan hnique was utilized adhering to the principles of ALARA. Contrast Volume: Optiray 320, 93 ml. The patient did not receive oral contrast. FINDINGS: Lung base: There is again chronic pleural thickening posteriorly on the right with scarring present. The lung bases remain clear. There is again cardiomegaly and coronary artery calcification. Abdominal cavity and bowel: Compared to previous examination, the patient is again status post colect emily with ileostomy in the right lower quadrant. There has been interval recurrence of fecal impaction within the terminal ileum and ileostomy is extends through the subcutaneous fat. There is again pseu doobstruction with mild to moderate dilatation of the remaining small bowel loops. Scattered fluid le vels are again seen. The stomach is grossly distended with liquid and food stuff. There is no inflamm atory change or free air identified. There is no abdominal ascites, abdominal mass or adenopathy. Liver: There is homogeneous attenuation of the liver parenchyma. There is no evidence for enhancing m ass lesion. Spleen: There is homogeneous attenuation of the splenic parenchyma. There is no enhancing mass lesion . Pancreas: There is homogeneous attenuation of the pancreatic parenchyma. There is no evidence for mas s lesion or peripancreatic fluid collection. Gall Bladder: Surgical clips are again seen from cholecystectomy. Adrenal glands: The adrenal glands are normal in size and attenuation. There is no evidence for enhan cing mass lesion. Kidneys: There is again atrophy of the kidneys bilaterally, left greater than right with numerous natalya ateral renal cysts again seen. Renal vascular calcifications present. There is no evidence for obstru cting renal calculus or hydronephrosis bilaterally. There is no evidence for enhancing mass. Bladder: There is again diffuse thickening of bladder wall encroachment upon the floor the bladder re lated to enlarged prostate. : There is no evidence for pelvic mass or adenopathy. There is no evidence for pelvic ascites. Ther e is again mild to moderate prostate enlargement. Vasculature: An aorto biiliac graft is again noted. Atherosclerotic calcification is present. Osseous structures: Old L2 compression fracture and degenerative changes are again seen within the chris mbar spine. IMPRESSION: 1. Compared to previous examination, there has been interval recurrence of mild fecal impaction of th e distal ileum and within the ileostomy as it extends through the subcutaneous fat. There is again mi ld pseudoobstruction of the more proximal small bowel with mild to moderate dilatation and fluid leve ls present. The stomach is also distended with liquid and food stuff. 2. No other acute intra-abdominal abnormality with chronic changes again noted above. ACT 112: Negative or not required by law. Electronically signed by: Aydin Fine M.D. 09/02/2021 8:55 AM
[2021-09-02] MEDS ORDERED: LACTATED RINGER'S 1,000 ML IV SCH (09:34)
[2021-09-02] MEDS ORDERED: SENNA 8.6 MG TAB PO PRN (09:34)
[2021-09-02] MEDS ORDERED: ONDANSETRON INJ 2 MG/ML 2 ML VIAL IV PRN (09:34)
[2021-09-02] MEDS ORDERED: ALBUT/IPRATROP 3MG/0.5MG NEB 3 ML VIAL INH PRN (09:34)
[2021-09-02] MEDS ORDERED: ALUMINUM/MAGNESIUM/SIMETH (MAALOX MAX) 30 ML UDC PO PRN (10:06)
[2021-09-02] MEDS ORDERED: LIDOCAINE 5% 1 PATCH TD PRN (10:07)
--- NOTE | 2021-09-02 10:25 | Nephrology Consultation ---
Date of Consultation September 02, 2021 Assessment & Plan (1) ESRD (end stage renal disease) on dialysis: dialyzes MWF; due for HD today > however not emergently decompensating; will dialyze tomorrow first thing primarily d/t staffiing issues w/ dialysis nurses after evaluating this pt -daily bmp, cbc -stopped ivf as below -no indication for CATARINA; will use mini heparin tomorrow; 2K bath; goal up to 3L uf w/ sbp >100 -ensure dialysis diet if/when taking po (2) Small bowel obstruction: per primary service and GI -ordered fluids to stop, he has had more than a L at this point -no LR, only low K fluids if need for IVF recurs before dialysis History of Present Illness Reason for Consultation: ESRD on dialysis Requesting Physician: Dr. Mcnamara Attending Physician: Hawa Mcnamara, DO History of Present Illness 76-year-old male whom I am asked to evaluate for dialysis needs after he is brought back to hospital observation with concern for small bowel obstruction. He was discharged 48 hours back after 48-hour admission for small intestine pseudoobstruction due to fecal impaction. Patient returned to the hospital this morning with recurrent abdominal pain, distention, decreased ileostomy output. In the emergency department, he had 500 cc normal saline, pain medication and antiemetic. He is n.p.o. currently for ostomy management. Receiving lactated Ringer's at 80 cc hourly for 1 L. GI also to evaluate the patient for newly noted common bile duct stone. 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 I have followed him for several years and outpatient and believe he has at least mild cognitive/memory impairment. He dialyzes Thursday under my care at [facility]. He last dialyzed here on August 30 with 1.6 L UF. He states his breathing is the best it's been recently; ongoing mild abdominal pain in his RLQ around the upper medial border of his ostomy. no n/v currently. ostomy is producing stool. no chest pain, no extremity pain. Allergies Allergy/AdvReac Type Severity Reaction Status Date / Time oxycodone AdvReac Severe DELIRIUM Verified 09/02/21 01:52 tramadol AdvReac Severe dizziness;a Verified 09/02/21 01:52 nxiety;sob gabapentin AdvReac Intermediate Nausea Verified 09/02/21 01:52 Home Medications Medication Instructions Recorded Confirmed Type calcium acetate(phosphat bind) 667 667 mg PO TIDM 08/23/18 09/02/21 History mg capsule docusate sodium 100 mg capsule 100 mg PO HS 05/31/19 09/02/21 History aspirin 81 mg tablet,delayed 81 mg PO DAILY 05/01/20 09/02/21 History release (Aspirin Low Dose) vitamin B complex and vitamin C 1 mg PO DAILY 05/01/20 09/02/21 History no.20-folic acid 1 mg capsule (Triphrocaps) atorvastatin 40 mg tablet 40 mg PO HS #90 tab 11/13/20 09/02/21 Rx fluticasone furoate 200 1 inh INHALATION QAM #84 ea 11/23/20 09/02/21 Rx mcg-vilanterol 25 mcg/dose inhalation powder (Breo Ellipta) levothyroxine 88 mcg tablet 88 mcg PO DAILY #90 tab 11/23/20 09/02/21 Rx paroxetine HCl 20 mg tablet 20 mg PO HS #90 tab 01/21/21 09/02/21 Rx tiotropium bromide 18 mcg capsule 1 cap INHALATION QAM #1 inh 03/27/21 09/02/21 Rx with inhalation device (Spiriva with HandiHaler) aluminum-mag hydroxide-simethicone 30 ml PO DIRECTED PRN 04/08/21 09/02/21 History 200 mg-200 mg-20 mg/5 mL oral susp famotidine 20 mg tablet 20 mg PO 3XWK 04/08/21 09/02/21 History ipratropium 0.5 mg-albuterol 3 mg 3 ml INHALATION Q4H PRN 04/08/21 09/02/21 History (2.5 mg base)/3 mL nebulization soln lidocaine 4 % topical patch 1 patch TOPICAL DAILY PRN 04/08/21 09/02/21 History (Aspercreme (lidocaine)) nitroglycerin 0.4 mg sublingual 0.4 mg SUBLINGUAL DIRECTED PRN 04/08/21 09/02/21 History tablet (Nitrostat) ropinirole 0.25 mg tablet 0.25 mg PO HS 04/08/21 09/02/21 History sennosides 8.6 mg tablet (Senokot) 8.6 mg PO DAILY PRN 04/08/21 09/02/21 History acetaminophen 325 mg capsule 650 mg PO QID PRN #30 cap 04/13/21 09/02/21 Rx diclofenac sodium 1 % topical gel 2 g TOPICAL QID #100 g 04/13/21 09/02/21 Rx (Voltaren Arthritis Pain) pregabalin 75 mg capsule (Lyrica) 75 mg PO QAM #30 cap 05/15/21 09/02/21 Rx clopidogrel 75 mg tablet 75 mg PO QDL 05/31/21 09/02/21 History Oxygen Home #1 ea 06/04/21 08/06/21 Rx amiodarone 200 mg tablet 200 mg PO Q OTHER DAY #14 tab 07/11/21 09/02/21 Rx pantoprazole 40 mg tablet,delayed 40 mg PO QAM #90 tab 07/11/21 09/02/21 Rx release temazepam 15 mg capsule 15 mg PO HS PRN #60 cap 08/19/21 09/02/21 Rx Patient History Medical History (Updated 09/02/21 @ 15:46 by Christina Landrum MD, PhD) AAA (abdominal aortic aneurysm) Anemia, chronic renal failure AV fistula right arm CAD (coronary artery disease) Chronic back pain Chronic GERD Chronic right-sided CHF (congestive heart failure) Chronic ulcer of great toe of left foot with fat layer exposed COPD (chronic obstructive pulmonary disease) CVA (cerebral vascular accident) "NO RESIDUAL EFFECTS" PER RECORDS Dependence on renal dialysis Depression Dermatitis Diastolic CHF DVT (deep venous thrombosis) Elevated troponin Encounter for central line placement GERD (gastroesophageal reflux disease) H/O: gout Hyperlipidemia Hypothyroidism Ileostomy in place 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 (Dr Sj Restrepo) Memory loss or impairment Myocardial infarct, old 2010 Necrosis of colon Orthostatic hypotension Oxygen dependent Peripheral vascular disease Skin ulcers of both feet Valvular disease S/P MVR (2010); ?AVR PER RECORDS Vitamin D deficiency Surgical History Difficult intubation B/L Anteriogram, Right femoral to anterior tibial cadaver vein bypass= 08/06/18= Grade view 4, MAC 3 --> Glidescope #3, ETT 7.5 at [facility] H/O abdominal aortic aneurysm repair 2011 H/O tlfai-nxori-yppxudo bypass 2012 H/O mitral valve repair 2010; ?AVR PER RECORDS Hx of CABG S/P CABG X2 (DURING MVR) 2010 S/P AAA repair S/P ablation of atrial fibrillation S/P cholecystectomy S/P femoral-popliteal bypass surgery S/P MVR (mitral valve repair) Status post transmetatarsal amputation of right foot Family History Mother Essential hypertension Father , age 76 Myocardial infarction Denies family history of Colon cancer Ovarian cancer Prostate cancer Breast cancer Social History Smoking Status: Never smoker Tobacco Type: Cigarettes Years Smoked: 5; Second Hand Exposure: No; Hx Alcohol Use: No Hx Substance Use: No Preferred Language: [place] Communication Ability: Effective Visual Impairment: No Limitations Hearing Ability: Normal Therapeutic Recreation Director Required: No Beliefs That Will Affect Care: None marital status: / marital status details: 1 daughter Current Living Situation: Family Current Living Situation Comment: lives with sister. 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: [employer] Feels Safe at Home: Yes Childhood Exposure to Second-Hand Smoke: No Dental Care, Regularly: Yes Physical Activity Frequency: Other Physical Activity Frequency Comment: Physical activity limited by patients medical conditions Seatbelt Use: always Sunscreen Use: Yes Assistive Devices: Oxygen - Continuous, Walker and Wheelchair Review of Systems Review of Systems: All systems reviewed & are unremarkable except as noted in HPI & below Physical Exam Constitutional: well developed, well nourished and cooperative; no acute distress Eyes: EOM intact bilaterally ENMT: Ears: no external ear abnormality Nose: no external nose abnormality Mouth: + dry oral mucous membranes Neck: no nuchal rigidity Respiratory: normal respiratory effort Auscultation: + diminished lung sounds and + crackles (bibasilar) Cardiovascular: Rate/Rhythm: regular rate and regular rhythm Heart Sounds: normal S1, normal S2 and + murmur Extremities: + AV fistula (+ t/b); no edema Gastrointestinal (Abdomen): Inspection/Auscultation: normal bowel sounds Percussion/Palpation: abdomen soft; abdomen nontender Musculoskeletal: Extremities: strength 5/5 throughout Skin: no rashes, warm and dry BL feet not examined; BL madden lesions Neurologic: tompkins, fluent speech, no tremor Psychiatric: Orientation: alert and oriented x 3 Results & Data ([facility]) Vital Signs (Past 12 Hours) Vital Signs Temp Pulse Pulse Resp BP BP BP 09/02/21 09:35 36.4 C L 61 16 133/72 09/02/21 08:41 57 L 19 143/53 H 09/02/21 07:26 57 L 17 09/02/21 07:00 57 L 17 150/61 H 09/02/21 05:00 60 18 149/50 H 09/02/21 03:00 70 16 09/02/21 01:10 36.6 C 71 16 137/70 Pulse Ox 09/02/21 09:35 97 09/02/21 08:41 100 09/02/21 07:26 97 09/02/21 07:00 99 09/02/21 05:00 99 09/02/21 03:00 96 09/02/21 01:10 99 Laboratory Results 09/02/21 02:05 09/02/21 03:33 CHEM panel from today 02 100: Sodium 134, calcium not reported due to hemolysis, chloride 97, bicarb 26, BUN 57, creatinine 11, calcium 9.1, BUN 3.[address] abdomen pelvis today with IV contrast CLINICAL HISTORY: Abdominal pain. Previous fecal impaction and pseudoobstruc tion. Reevaluate for obstruction. COMPARISON STUDY: 08/29/2021 CT DOSE: 833.09 mGy.cm TECHNIQUE: Standard CT of the Abdomen and Pelvis was performed with IV contrast. A dose lowering technique was utilized adhering to the principles of ALARA. Contrast Volume: Optiray 320, 93 ml. The patient did not receive oral contrast. FINDINGS: Lung base: There is again chronic pleural thickening posteriorly on the right with scarring present. The lung bases remain clear. There is again cardiomegaly and coronary artery calcification. Abdominal cavity and bowel: Compared to previous examination, the patient is again status post colectomy with ileostomy in the right lower quadrant. There has been interval recurrence of fecal impaction within the terminal ileum and ileostomy is extends through the subcutaneous fat. There is again pseudoobstruction with mild to moderate dilatation of the remaining small bowel loops. Scattered fluid levels are again seen. The stomach is grossly distended with liquid and food stuff. There is no inflammatory change or free air identified. There is no abdominal ascites, abdominal mass or adenopathy. Liver: There is homogeneous attenuation of the liver parenchyma. There is no evidence for enhancing mass lesion. Spleen: There is homogeneous attenuation of the splenic parenchyma. There is no enhancing mass lesion. Pancreas: There is homogeneous attenuation of the pancreatic parenchyma. There is no evidence for mass lesion or peripancreatic fluid collection. Gall Bladder: Surgical clips are again seen from cholecystectomy. Adrenal glands: The adrenal glands are normal in size and attenuation. There is no evidence for enhancing mass lesion. Kidneys: There is again atrophy of the kidneys bilaterally, left greater than right with numerous bilateral renal cysts again seen. Renal vascular calcifications present. There is no evidence for obstructing renal calculus or hydronephrosis bilaterally. There is no evidence for enhancing mass. Bladder: There is again diffuse thickening of bladder wall encroachment upon the floor the bladder related to enlarged prostate. : There is no evidence for pelvic mass or adenopathy. There is no evidence for pelvic ascites. There is again mild to moderate prostate enlargement. Vasculature: An aorto biiliac graft is again noted. Atherosclerotic calcification is present. Osseous structures: Old L2 compression fracture and degenerative changes are again seen within the lumbar spine. IMPRESSION: 1. Compared to previous examination, there has been interval recurrence of mild fecal impaction of the distal ileum and within the ileostomy as it extends through the subcutaneous fat. There is again mild pseudoobstruction of the more proximal small bowel with mild to moderate dilatation and fluid levels present. The stomach is also distended with liquid and food stuff. 2. No other acute intra-abdominal abnormality with chronic changes again noted above.
[2021-09-02] MEDS ORDERED: PREGABALIN 75 MG CAP PO PRN (10:46)
[2021-09-02] MEDS: CLOPIDOGREL BISULFATE 75 MG TAB PO SCH (10:59)
[2021-09-02] MEDS: ASPIRIN 81 MG ECTAB PO SCH (10:59)
[2021-09-02] MEDS: DICLOFENAC SOD 1% GEL 100 GM TUBE EXT SCH ×4 (10:59→20:11)
[2021-09-02] MEDS: LEVOTHYROXINE SODIUM 88 MCG TABLET PO SCH (11:00)
[2021-09-02] MEDS: NEPHROCAPS PO SCH (11:00)
[2021-09-02] MEDS: FAMOTIDINE 20 MG TAB PO SCH (11:00)
[2021-09-02] MEDS: PANTOprazole 40 MG TAB PO SCH (11:00)
[2021-09-02] MEDS: CALCIUM ACETATE 667 MG CAP/TAB PO SCH ×3 (11:00→16:32)
[2021-09-02] MEDS: FLUTICASONE/VILANTEROL 200/25MCG 14 PUFFS/INHALER INH SCH (11:01)
[2021-09-02] MEDS: UMECLIDINIUM BROMIDE 62.5MCG/BLISTER 7 PUFFS/INHALER INH SCH (11:01)
[2021-09-02] MEDS: PREGABALIN 75 MG CAP PO SCH (11:05)
--- NOTE | 2021-09-02 12:18 | XRay Report ---
XR chest 1V portable CLINICAL HISTORY: ESRD pt assess volume status. Evaluate cardiopulmonary status COMPARISON STUDY: 05/31/2021 TECHNIQUE: 1 view of the chest FINDINGS: Single frontal view of the chest demonstrates the cardiomediastinal silhouette to be within normal li mits. The patient is status post previous cardiothoracic surgery. There is a decreased inspiratory e ffort with elevation of the hemidiaphragms and crowding of the bronchovascular markings at the lung b ases and centrally. The lungs are clear of alveolar opacities. There is no evidence for pleural effus ion. There is no evidence for vascular congestion. There is no acute osseous pathology. IMPRESSION: There is a decreased inspiratory effort with otherwise no acute chest disease. ACT 112: Negative or not required by law. Electronically signed by: Aydni Fine M.D. 09/02/2021 12:17 PM
--- NOTE | 2021-09-02 14:29 | Gastrointestinal Consultation ---
Date of Consultation September 02, 2021 Assessment & Plan (1) Gallstone: (2) Small bowel obstruction: This is a 76-year-old male with multiple comorbidities, admitted with abdominal pain, imaging suggestive of recurrent SBO, STAT rad report on arrival suggestive of questionable gallstone in the CBD, however, final read makes no mention of this. LFTs are unremarkable; no leukocytosis, tachycardia or hypotension. Abd soft. - Appreciate primary team mgmt of recurrent SBO; consider gen surg consult - ABX as per primary team - Will defer further GI w/u at this time - GI will sign off, please call with questions Supervising Physician Co-Signing Physician Notes I have personally seen and examined the patient with Reena Conrad PA-C. Her note reflects my exam and findings. I agree with her impression and plan. No signs of ostomy obstruction. May be related to adhesions and/or dehydration. Blake Naqvi M.D. History of Present Illness Reason for Consultation: gallstone in CBD Requesting Physician: Dr. Hawa Mcnamara Attending Physician: Hawa Mcnamara, DO History of Present Illness This 76-year-old male with complicated PMH including CAD SP CABG, PAF on amiodarone, CHF, history of mitral valve repair, PVD SP AAA repair, femoropopliteal bypass 2012, COPD, pulmonary hypertension, chronic respiratory failure on 2 L O2, ESRD on dialysis, ischemic colitis April 2019 SP subtotal colectomy with ileostomy placement by Dr. Restrepo, recent admission for small intestine pseudoobstruction due to fecal impaction. Brought back to the hospital for recurrent abdominal pain or distention, decreased ileostomy output. GI consulted as he had STAT radi imaging (CTAP) suggestive of ? gallstone in the CBD, though final read today makes no mention of this. CTAP suggestive of recurrent SBO. He is s/p cholecystectomy. CXR no acute process. Pt today has small amt of stool/air in his ostomy bag. In general no complaints. Denies n/v, CP, SOB, fever,chills, hematemesis, melena, hematochezia. Allergies Allergy/AdvReac Type Severity Reaction Status Date / Time oxycodone AdvReac Severe DELIRIUM Verified 09/02/21 01:52 tramadol AdvReac Severe dizziness;a Verified 09/02/21 01:52 nxiety;sob gabapentin AdvReac Intermediate Nausea Verified 09/02/21 01:52 Home Medications Medication Instructions Recorded Confirmed Type calcium acetate(phosphat bind) 667 667 mg PO TIDM 08/23/18 09/02/21 History mg capsule docusate sodium 100 mg capsule 100 mg PO HS 05/31/19 09/02/21 History aspirin 81 mg tablet,delayed 81 mg PO DAILY 05/01/20 09/02/21 History release (Aspirin Low Dose) vitamin B complex and vitamin C 1 mg PO DAILY 05/01/20 09/02/21 History no.20-folic acid 1 mg capsule (Triphrocaps) atorvastatin 40 mg tablet 40 mg PO HS #90 tab 11/13/20 09/02/21 Rx fluticasone furoate 200 1 inh INHALATION QAM #84 ea 11/23/20 09/02/21 Rx mcg-vilanterol 25 mcg/dose inhalation powder (Breo Ellipta) levothyroxine 88 mcg tablet 88 mcg PO DAILY #90 tab 11/23/20 09/02/21 Rx paroxetine HCl 20 mg tablet 20 mg PO HS #90 tab 01/21/21 09/02/21 Rx tiotropium bromide 18 mcg capsule 1 cap INHALATION QAM #1 inh 03/27/21 09/02/21 Rx with inhalation device (Spiriva with HandiHaler) aluminum-mag hydroxide-simethicone 30 ml PO DIRECTED PRN 04/08/21 09/02/21 History 200 mg-200 mg-20 mg/5 mL oral susp famotidine 20 mg tablet 20 mg PO 3XWK 04/08/21 09/02/21 History ipratropium 0.5 mg-albuterol 3 mg 3 ml INHALATION Q4H PRN 04/08/21 09/02/21 History (2.5 mg base)/3 mL nebulization soln lidocaine 4 % topical patch 1 patch TOPICAL DAILY PRN 04/08/21 09/02/21 History (Aspercreme (lidocaine)) nitroglycerin 0.4 mg sublingual 0.4 mg SUBLINGUAL DIRECTED PRN 04/08/21 09/02/21 History tablet (Nitrostat) ropinirole 0.25 mg tablet 0.25 mg PO HS 04/08/21 09/02/21 History sennosides 8.6 mg tablet (Senokot) 8.6 mg PO DAILY PRN 04/08/21 09/02/21 History acetaminophen 325 mg capsule 650 mg PO QID PRN #30 cap 04/13/21 09/02/21 Rx diclofenac sodium 1 % topical gel 2 g TOPICAL QID #100 g 04/13/21 09/02/21 Rx (Voltaren Arthritis Pain) pregabalin 75 mg capsule (Lyrica) 75 mg PO QAM #30 cap 05/15/21 09/02/21 Rx clopidogrel 75 mg tablet 75 mg PO QDL 05/31/21 09/02/21 History Oxygen Home #1 ea 06/04/21 08/06/21 Rx amiodarone 200 mg tablet 200 mg PO Q OTHER DAY #14 tab 07/11/21 09/02/21 Rx pantoprazole 40 mg tablet,delayed 40 mg PO QAM #90 tab 07/11/21 09/02/21 Rx release temazepam 15 mg capsule 15 mg PO HS PRN #60 cap 08/19/21 09/02/21 Rx Patient History Medical History (Updated 09/02/21 @ 07:04 by Madiha Horowitz DO) AAA (abdominal aortic aneurysm) Acute dyspnea Acute osteomyelitis of foot Anemia, chronic renal failure AV fistula right arm CAD (coronary artery disease) Chronic back pain Chronic GERD Chronic right-sided CHF (congestive heart failure) Chronic ulcer of great toe of left foot with fat layer exposed COPD (chronic obstructive pulmonary disease) COPD (chronic obstructive pulmonary disease) CVA (cerebral vascular accident) "NO RESIDUAL EFFECTS" PER RECORDS Dependence on renal dialysis Depression Dermatitis Diastolic CHF DVT (deep venous thrombosis) Elevated troponin Encounter for central line placement GERD (gastroesophageal reflux disease) H/O: gout Hyperkalemia Hyperlipidemia Hypothyroidism Ileostomy in place 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 (Dr Sj Restrepo) Memory loss or impairment Myocardial infarct, old 2010 Necrosis of colon Orthostatic hypotension Oxygen dependent Peripheral vascular disease Skin ulcers of both feet Valvular disease S/P MVR (2010); ?AVR PER RECORDS Vitamin D deficiency Surgical History Difficult intubation B/L Anteriogram, Right femoral to anterior tibial cadaver vein bypass= 08/06/18= Grade view 4, MAC 3 --> Glidescope #3, ETT 7.5 at [facility] H/O abdominal aortic aneurysm repair 2011 H/O [id number]-[id number]-[id number] bypass 2012 H/O mitral valve repair 2010; ?AVR PER RECORDS Hx of CABG S/P CABG X2 (DURING MVR) 2010 S/P AAA repair S/P ablation of atrial fibrillation S/P cholecystectomy S/P femoral-popliteal bypass surgery S/P MVR (mitral valve repair) Status post transmetatarsal amputation of right foot Family History Mother Essential hypertension Father , age 76 Myocardial infarction Denies family history of Colon cancer Ovarian cancer Prostate cancer Breast cancer Social History Smoking Status: Never smoker Tobacco Type: Cigarettes Years Smoked: 5; Second Hand Exposure: No; Hx Alcohol Use: No Hx Substance Use: No Preferred Language: Armenian Communication Ability: Effective Visual Impairment: No Limitations Hearing Ability: Normal Personal Care Assistant Required: No Beliefs That Will Affect Care: None marital status: / marital status details: 1 daughter Current Living Situation: Family Current Living Situation Comment: lives with sister. 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 Feels Safe at Home: Yes Childhood Exposure to Second-Hand Smoke: No Dental Care, Regularly: Yes Physical Activity Frequency: Other Physical Activity Frequency Comment: Physical activity limited by patients medi guillermina conditions Seatbelt Use: always Sunscreen Use: Yes Assistive Devices: Oxygen - Continuous, Walker and Wheelchair Review of Systems Review of Systems: All systems reviewed & are unremarkable except as noted in HPI & below Physical Exam Constitutional: WD/WN, vitals as above chronically ill Eyes: PERRL, conjunctivae normal, anicteric sclerae Respiratory: normal respiratory effort Cardiovascular: Rate/Rhythm: regular rate and regular rhythm Gastrointestinal (Abdomen): abd soft, mildly distended, nontender, small amt of stool and gas in ostomy bag; no melena, hematochezia Skin: no rashes, warm and dry Psychiatric: A+Ox3, euthymic affect Results & Data ([facility]) Vital Signs (Past 12 Hours) Vital Signs Temp Pulse Pulse Resp BP BP BP 09/02/21 09:35 36.4 C L 61 16 133/72 09/02/21 08:41 57 L 19 143/53 H 09/02/21 07:26 57 L 17 09/02/21 07:00 57 L 17 150/61 H 09/02/21 05:00 60 18 149/50 H 09/02/21 03:00 70 16 Pulse Ox 09/02/21 09:35 97 09/02/21 08:41 100 09/02/21 07:26 97 09/02/21 07:00 99 09/02/21 05:00 99 09/02/21 03:00 96 Laboratory Results 09/02/21 09/02/21 09/02/21 Range/Units 05:20 05:20 03:33 WBC (4.8-10.8) K/uL RBC (4.7-6.1) M/uL Hgb (14.0-18.0) g/dL Hct (42-52) % MCV (80-100) fL MCH (25-34) pg MCHC (32-36) g/dL RDW Std Deviation (36.4-46.3) fL RDW Coeff of Jolanta (11.5-14.5) % Plt Count (130-400) K/uL MPV (7.4-10.4) fL Immature Gran % (Auto) % Neut % (Auto) % Lymph % (Auto) % [place] % (Auto) % Eos % (Auto) % Baso % (Auto) % Neut # (Auto) (1.4-6.5) K/uL Lymph # (Auto) (1.2-3.4) K/uL [place] # (Auto) (0.11-0.59) K/uL Eos # (Auto) (0-0.5) K/uL Baso # (Auto) (0-0.2) K/uL Immature Gran # (Auto) (0.00-0.02) K/uL Sodium (136-145) mmol/L Potassium (3.5-5.1) mmol/L Chloride (98-107) mmol/L Carbon Dioxide (21-32) mmol/L Anion Gap (3-11) BUN (7-18) mg/dl Creatinine (0.6-1.4) mg/dl Est Cr Clr Drug Dosing ml/min Est GFR ( Amer) ml/min Est GFR (Non-Af Amer) ml/min BUN/Creatinine Ratio (10-20) Glucose (70-99) mg/dl Calcium (8.5-10.1) mg/dl Magnesium 2.1 (1.8-2.4) mg/dl Total Bilirubin (0.2-1) mg/dl AST (15-37) U/L ALT (12-78) U/L Alkaline Phosphatase (45-117) U/L Total Protein (6.4-8.2) gm/dl Albumin (3.4-5.0) gm/dl Globulin (2.5-4.0) gm/dl Albumin/Globulin Ratio (0.9-2) Lipase (73-393) U/L COVID-19 Eval Order Covid19 at [facility] SARS-CoV-2 (PCR) NEGATIVE (Negative) 09/02/21 09/02/21 09/02/21 Range/Units 03:33 02:05 02:05 WBC 10.01 (4.8-10.8) K/uL RBC 3.72 L (4.7-6.1) M/uL Hgb 12.2 L (14.0-18.0) g/dL Hct 36.5 L (42-52) % MCV 98.1 (80-100) fL MCH 32.8 (25-34) pg MCHC 33.4 (32-36) g/dL RDW Std Deviation 56.0 H (36.4-46.3) fL RDW Coeff of Jolanta 15.5 H (11.5-14.5) % Plt Count 127 L (130-400) K/uL MPV 9.4 (7.4-10.4) fL Immature Gran % (Auto) 0.6 % Neut % (Auto) 74.4 % Lymph % (Auto) 13.8 % [place] % (Auto) 8.7 % Eos % (Auto) 2.3 % Baso % (Auto) 0.2 % Neut # (Auto) 7.45 H (1.4-6.5) K/uL Lymph # (Auto) 1.38 (1.2-3.4) K/uL [place] # (Auto) 0.87 H (0.11-0.59) K/uL Eos # (Auto) 0.23 (0-0.5) K/uL Baso # (Auto) 0.02 (0-0.2) K/uL Immature Gran # (Auto) 0.06 H (0.00-0.02) K/uL Sodium 134 L (136-145) mmol/L Potassium 5.2 H D (3.5-5.1) mmol/L Chloride 97 L (98-107) mmol/L Carbon Dioxide 26 (21-32) mmol/L Anion Gap 11.0 (3-11) BUN 57 H D (7-18) mg/dl Creatinine 11.00 H* D (0.6-1.4) mg/dl Est Cr Clr Drug Dosing 6.8 ml/min Est GFR ( Amer) 4.6 ml/min Est GFR (Non-Af Amer) 4.0 ml/min BUN/Creatinine Ratio 5.2 L (10-20) Glucose 107 H (70-99) mg/dl Calcium 9.1 (8.5-10.1) mg/dl Magnesium (1.8-2.4) mg/dl Total Bilirubin 0.7 (0.2-1) mg/dl AST 20 (15-37) U/L ALT 27 (12-78) U/L Alkaline Phosphatase 158 H (45-117) U/L Total Protein 7.9 (6.4-8.2) gm/dl Albumin 3.1 L (3.4-5.0) gm/dl Globulin 4.8 H (2.5-4.0) gm/dl Albumin/Globulin Ratio 0.6 L (0.9-2) Lipase 245 (73-393) U/L COVID-19 Eval Order SARS-CoV-2 (PCR) (Negative) Diagnostic Findings CTAP: Lung base: There is again chronic pleural thickening posteriorly on the right with scarring present. The lung bases remain clear. There is again cardiomegaly and coronary artery calcification. Abdominal cavity and bowel: Compared to previous examination, the patient is again status post colectomy with ileostomy in the right lower quadrant. There has been interval recurrence of fecal impaction within the terminal ileum and ileostomy is extends through the subcutaneous fat. There is again pseudoobstruction with mild to moderate dilatation of the remaining small bowel loops. Scattered fluid levels are again seen. The stomach is grossly distended with liquid and food stuff. There is no inflammatory change or free air identified. There is no abdominal ascites, abdominal mass or adenopathy. Liver: There is homogeneous attenuation of the liver parenchyma. There is no evidence for enhancing mass lesion. Spleen: There is homogeneous attenuation of the splenic parenchyma. There is no enhancing mass lesion. Pancreas: There is homogeneous attenuation of the pancreatic parenchyma. There is no evidence for mass lesion or peripancreatic fluid collection. Gall Bladder: Surgical clips are again seen from cholecystectomy. Bladder: There is again diffuse thickening of bladder wall encroachment upon the floor the bladder related to enlarged prostate. : There is no evidence for pelvic mass or adenopathy. There is no evidence for pelvic ascites. There is again mild to moderate prostate enlargement. Vasculature: An aorto biiliac graft is again noted. Atherosclerotic calcification is present. Osseous structures: Old L2 compression fracture and degenerative changes are again seen within the lumbar spine. IMPRESSION: 1. Compared to previous examination, there has been interval recurrence of mild fecal impaction of the distal ileum and within the ileostomy as it extends through the subcutaneous fat. There is again mild pseudoobstruction of the more proximal small bowel with mild to moderate dilatation and fluid levels present. The stomach is also distended with liquid and food stuff. 2. No other acute intra-abdominal abnormality with chronic changes again noted above. CXR: FINDINGS: Single frontal view of the chest demonstrates the cardiomediastinal silhouette to be within normal limits. The patient is status post previous cardiothoracic surgery. There is a decreased inspiratory effort with elevation of the hemidiaphragms and crowding of the bronchovascular markings at the lung bases and centrally. The lungs are clear of alveolar opacities. There is no evidence for pleural effusion. There is no evidence for vascular congestion. There is no acute osseous pathology. IMPRESSION: There is a decreased inspiratory effort with otherwise no acute chest disease.
--- NOTE | 2021-09-02 19:03 | Communication Note ---
Date of Service: September 02, 2021 Bridge note. New 6-year-old male presents with concern for SBO, keep n.p.o. with pain control and antiemetics. Dialysis dependent, will continue on gentle IV fluids and anticipate HD tomorrow per nephrology. Potassium 5.2. Small bowel obstruction Ileostomy in place since 2018 CT: Suggestive of recurrent SBO Gallstones CBD,? Gallstone ileus GI consulted: No evidence of stone on final read, unremarkable LFTs, no leukocytosis/tach/hypotension with soft abdomen. Signed off, patient with normal bilirubin/AST ALT. Chronic elevated alk phos. Lipase normal. Continue medical management of SBO, if not improving consider GEN surge N.p.o. Continue IVF BMP daily ESRD on dialysis Nephrology consulted No emergent decompensation Patient normally on Thursday dialysis Anticipate dialysis tomorrow Dialysis diet Follow potassium daily CAD Continue aspirin, Plavix, statin Atrial fibrillation Adequately rate controlled, continue amiodarone Hypothyroid Continue home Synthroid Hyperlipidemia Continue atorvastatin COPD Continue Breo, duo nebs, SPO2 as needed GERD Continue Protonix daily, Pepcid
[2021-09-02] MEDS: ATORVASTATIN 40 MG TAB PO SCH (20:12)
[2021-09-02] MEDS: DOCUSATE SODIUM 100 MG CAP PO SCH (20:12)
[2021-09-02] MEDS: rOPINIRole HCL 0.25 MG TABLET PO SCH (20:12)
[2021-09-02] MEDS: PARoxetine HCL 20 MG TAB PO SCH (20:12)
[2021-09-03] MEDS: LEVOTHYROXINE SODIUM 88 MCG TABLET PO SCH (05:41)
[2021-09-03 06:30] LABS: Basophils # (auto) 0.01 K/uL (0-0.2); Basophils % (auto) 0.1 %; Eosinophils # (auto) 0.25 K/uL (0-0.5); Eosinophils % (auto) 3.6 %; Hematocrit (blood only) 31.6 % (42-52); Hemoglobin 10.4 g/dL (14.0-18.0); Immature Granulocytes # (auto) 0.03 K/uL (0.00-0.02); Immature Granulocytes % (auto) 0.4 %; Lymphocytes # (auto) 0.84 K/uL (1.2-3.4); Mean Corpuscular Hemoglobin 32.5 pg (25-34); Mean Corpuscular Hgb Conc 32.9 g/dL (32-36); Mean Corpuscular Volume 98.8 fL (80-100); Mean Platelet Volume 9.3 fL (7.4-10.4); Monocytes # (auto) 1.67 K/uL (0.11-0.59); Monocytes % (auto) 23.9 %; Neutrophils # (auto) 4.19 K/uL (1.4-6.5); Platelet Count 114 K/uL (130-400); RDW Coefficient of Variation 15.5 % (11.5-14.5); RDW Standard Deviation 56.3 fL (36.4-46.3); White Blood Count 6.99 K/uL (4.8-10.8)
[2021-09-03] MEDS ORDERED: HEPARIN SOD (PORCINE) 1000 UNIT/ML IV ONE (07:00)
[2021-09-03] MEDS ORDERED: SODIUM CHLORIDE 0.9% 1000ML 1,000 ML IV PRN (07:00)
[2021-09-03 07:31] LABS: BUN Creatinine Ratio 5.4 (10-20); Calcium 8.5 mg/dl (8.5-10.1); Creatinine Clr Calc Pharmacy 6.9 ml/min; Est GFR (African American) 4.2 ml/min; Est GFR (Non-African American) 3.6 ml/min; Potassium 5.8 mmol/L (3.5-5.1)
[2021-09-03] MEDS: HEPARIN SOD (PORCINE) 1000 UNIT/ML IV SCH ×2 (10:18→11:15)
--- NOTE | 2021-09-03 11:44 | Dialysis Progress Note ---
Date of Service September 03, 2021 Assessment & Plan (1) ESRD (end stage renal disease) on dialysis: Plan: dialyzes MWF; for HD today > 2K bath, 3.5 hr tx, goal up to 3L uf w/ sbp >100 -daily bmp, cbc -hyperkalemia will resolve w/ HD and hyponatremia should improve -no indication for CATARINA; will use mini heparin on tx -ensure dialysis diet if/when taking po -next HD tomorrow as OP or on 09/05 as IP depending on clinical status (2) Small bowel obstruction: Plan: per primary service -no further IVF needed; tolerating liquid diet Admission and Anticipated Discharge Date Admission Date: September 02, 2021 Subjective no acute events overnight. Abdominal pain has resolved. No concerns about worsening breathing from the patient. Overall he is feeling well. Currently on a clear liquid diet. GI evaluated and signed off. Seen on dialysis at approximately 1030 Review of Systems Review of Systems: All systems reviewed & are unremarkable except as noted in Subjective Physical Exam Constitutional: well developed, well nourished and cooperative; no acute distress Eyes: EOM intact bilaterally ENMT: Ears: no external ear abnormality Nose: no external nose abnormality Mouth: + dry oral mucous membranes Neck: no nuchal rigidity Respiratory: normal respiratory effort Auscultation: + diminished lung sounds and + crackles (bibasilar) Cardiovascular: Rate/Rhythm: regular rate and regular rhythm Heart Sounds: normal S1, normal S2 and + murmur Extremities: + AV fistula (+ t/b); no edema Gastrointestinal (Abdomen): Inspection/Auscultation: normal bowel sounds Percussion/Palpation: abdomen soft; abdomen nontender Right lower quadrant ileoostomy Musculoskeletal: Extremities: strength 5/5 throughout Skin: no rashes, warm and dry Psychiatric: Orientation: alert and oriented x 3 Results & Data ([facility]) Vital Signs (Past 12 Hours) Vital Signs Temp Pulse Pulse Pulse Resp BP BP 09/03/21 11:20 66 132/61 09/03/21 11:00 66 154/71 H 09/03/21 10:40 63 143/56 H 09/03/21 10:20 64 125/69 09/03/21 10:00 64 127/65 09/03/21 09:40 63 138/57 L 09/03/21 09:20 60 138/57 L 09/03/21 09:00 60 157/64 H 09/03/21 08:46 60 120/82 09/03/21 08:39 36.5 C 60 09/03/21 08:00 36.5 C 64 18 161/73 H Pulse Ox 09/03/21 11:20 09/03/21 11:00 09/03/21 10:40 09/03/21 10:20 09/03/21 10:00 09/03/21 09:40 09/03/21 09:20 09/03/21 09:00 09/03/21 08:46 09/03/21 08:39 09/03/21 08:00 97 Laboratory Results 09/03/21 06:05 09/03/21 06:05
[2021-09-03] MEDS: CALCIUM ACETATE 667 MG CAP/TAB PO SCH ×3 (12:58→17:32)
[2021-09-03] MEDS: NEPHROCAPS PO SCH (12:59)
[2021-09-03] MEDS: AMIODARONE 200 MG TAB PO SCH (12:59)
[2021-09-03] MEDS: PANTOprazole 40 MG TAB PO SCH (12:59)
[2021-09-03] MEDS: FLUTICASONE/VILANTEROL 200/25MCG 14 PUFFS/INHALER INH SCH (12:59)
[2021-09-03] MEDS: ASPIRIN 81 MG ECTAB PO SCH (12:59)
[2021-09-03] MEDS: DICLOFENAC SOD 1% GEL 100 GM TUBE EXT SCH ×4 (12:59→20:34)
[2021-09-03] MEDS: UMECLIDINIUM BROMIDE 62.5MCG/BLISTER 7 PUFFS/INHALER INH SCH (12:59)
[2021-09-03] MEDS: CLOPIDOGREL BISULFATE 75 MG TAB PO SCH (12:59)
[2021-09-03] MEDS: PREGABALIN 75 MG CAP PO SCH (13:01)
--- NOTE | 2021-09-03 15:16 | Hospitalist Progress Note ---
Date of Service September 03, 2021 Assessment & Plan (1) Small bowel obstruction: Plan: Patient with ileostomy in place since 2019, recent admission for pseudo- obstruction of ileostomy, fecal impaction presenting with recurrent abdominal pain, distention. CT suggestive of recurrent SBO. Also with gallstone in CBD - ?gallstone ileus -Admit to medical -Patient initially improved with adequate output to ostomy, and moved to limited clears. Developed increased discomfort in abdomen and some belching/bloating today, although is not nauseous and reports he is hungry. Given abdominal discomfort and some bulging bloating we will keep strict n.p.o. for another [address]: Suggestive of recurrent SBO Gallstones CBD,? Gallstone ileus -Patient on dialysis, had dialysis this morning. Gentle IVF with reduced rate while n.p.o. -Ostomy management -Gentle IVF, electrolyte repletion -Zofran as needed -Pain control -NGT if patient has worsening pain, nausea or distention -GI Consulted. No no gallstone appreciated on final read. Recommend antibiotics per primary team, primary team management of SBO with consideration of GEN surge consult if not improving, and deferring additional GI work-up at this time. Signed off. Appreciate recommendations. (2) CAD (coronary artery disease): Plan: Chronic. Stable -Continue ASA -Continue Plavix -Continue Atorvastatin (3) Atrial fibrillation: Plan: Rate controlled -Continue Amiodarone (4) ESRD (end stage renal disease) on dialysis: Plan: ESRD on dialysis Nephrology consulted No emergent decompensation Patient normally on Thursday dialysis Anticipate dialysis tomorrow Dialysis diet when tolerating -Continue Nephrocaps, PhosLo Patient dialyzed for goal of 3 L today, next dialysis scheduled for tomorrow as outpatient or 1111 as inpatient depending on clinical progression. (5) Hypothyroidism: Plan: Chronic. -Continue Synthroid 88 mcg daily (6) Hyperlipidemia: Plan: Chronic -Continue Atorvastatin (7) COPD (chronic obstructive pulmonary disease): Plan: Chronic. Stable -Continue supplemental O2 at home level -Continue Breo Ellipta, DuoNebs (8) GERD (gastroesophageal reflux disease): Plan: Chronic. Stable -Continue Pepcid and Protonix (9) Gallstone: Plan: Noted on CT Abdomen. No abnormality in LFTs -GI consultation appreciated. Stone not mentioned on final read. See GI note. Plan: Code: Full code Disposition: Medical surgical FEN GI: N.p.o., IVFM LR 70cc/hr Admission and Anticipated Discharge Date Admission Date: September 02, 2021 Subjective Patient seen at the bedside after dialysis. He reports he is tired, and feels somewhat wiped out from dialysis no beds no 27 and overall "not too good "but without specific concerns/pain. He reports he has had continued ostomy output, but with clear diet has had some belching/burping and some right abdominal pressure/discomfort with palpation Denies pain at rest. Denies fev er/chills/sweats. Denies chest pain/chest pressure. Review of Systems Review of Systems: All systems reviewed & are unremarkable except as noted in Subjective Physical Exam Physical Exam: General: A&Ox3. NAD. Cooperative. HEENT: Atraumatic, normocephalic. Vision and hearing grossly intact, pupils equal and reactive to light and accommodation. Pulm: CTAB A&P. -wheezes, -rales, -rhonchi. Symmetrical chest rise. No increase work of breathing. No respiratory distress. Cardiac: RRR, -mrg. Radial pulses intact and symmetrical. Abdominal: Right ostomy in place, draining brown-colored liquid. Right abdomen mildly tender to palpation without rebound tenderness, no left quadrant tenderness, no signs of peritonitis. Bowel sounds intact, but diminished. Results & Data Results & Data ([facility]) Vital Signs (Past 12 Hours) Vital Signs Temp Pulse Pulse Pulse Resp BP BP 09/03/21 12:35 36.6 C 66 150/71 H 09/03/21 12:00 66 118/83 09/03/21 11:40 59 L 122/58 L 09/03/21 11:20 66 132/61 09/03/21 11:00 66 154/71 H 09/03/21 10:40 63 143/56 H 09/03/21 10:20 64 125/69 09/03/21 10:00 64 127/65 09/03/21 09:40 63 138/57 L 09/03/21 09:20 60 138/57 L 09/03/21 09:00 60 157/64 H 09/03/21 08:46 60 120/82 09/03/21 08:39 36.5 C 60 09/03/21 08:00 36.5 C 64 18 161/73 H Pulse Ox 09/03/21 12:35 09/03/21 12:00 09/03/21 11:40 09/03/21 11:20 09/03/21 11:00 09/03/21 10:40 09/03/21 10:20 09/03/21 10:00 09/03/21 09:40 09/03/21 09:20 09/03/21 09:00 09/03/21 08:46 09/03/21 08:39 09/03/21 08:00 97 PG Care Time/CCT Total # of Minutes Spent Total Time Spent with Patient: Total time spent is greater than 50% in coordination of care (as documented) at patient's floor/unit and/or counseling patient: Coding Level of Care Code 98975 Subseq Hosp Care Lvl 3 Diagnoses Small bowel obstruction K56.609 CAD (coronary artery disease) I25.10 Associated angina: without angina Coronary Disease-Associated Artery/Lesion type: [place] artery [place] vs. transplanted heart: [place] heart Atrial fibrillation I48.91 ESRD (end stage renal disease) on dialysis N18.6; Z99.2 Hypothyroidism E03.9 Hyperlipidemia E78.5 COPD (chronic obstructive pulmonary disease) J44.9 GERD (gastroesophageal reflux disease) K21.9 Gallstone K80.20 (1) CAD (coronary artery disease) Associated angina: without angina Coronary Disease-Associated Artery/Lesion type: [place] artery [place] vs. transplanted heart: [place] heart Qualified Code(s): I25.10 - Atherosclerotic heart disease of [place] coronary artery without angina pectoris
[2021-09-03] MEDS: LACTATED RINGER'S 1,000 ML IV SCH (15:27)
[2021-09-03] MEDS: ACETAMINOPHEN 325 MG TAB PO PRN (19:35)
[2021-09-03] MEDS: ATORVASTATIN 40 MG TAB PO SCH (20:34)
[2021-09-03] MEDS: PARoxetine HCL 20 MG TAB PO SCH (20:34)
[2021-09-03] MEDS: DOCUSATE SODIUM 100 MG CAP PO SCH (20:35)
[2021-09-03] MEDS: rOPINIRole HCL 0.25 MG TABLET PO SCH (20:35)
[2021-09-04] MEDS: LACTATED RINGER'S 1,000 ML IV SCH (05:45)
[2021-09-04] MEDS: LEVOTHYROXINE SODIUM 88 MCG TABLET PO SCH (05:54)
[2021-09-04 06:37] LABS: Basophils # (auto) 0.03 K/uL (0-0.2); Basophils % (auto) 0.4 %; Eosinophils # (auto) 0.26 K/uL (0-0.5); Eosinophils % (auto) 3.9 %; Hematocrit (blood only) 28.9 % (42-52); Hemoglobin 9.5 g/dL (14.0-18.0); Immature Granulocytes # (auto) 0.04 K/uL (0.00-0.02); Immature Granulocytes % (auto) 0.6 %; Lymphocytes # (auto) 1.03 K/uL (1.2-3.4); Lymphocytes % (auto) 15.3 %; Mean Corpuscular Hemoglobin 31.9 pg (25-34); Mean Corpuscular Hgb Conc 32.9 g/dL (32-36); Mean Platelet Volume 9.4 fL (7.4-10.4); Monocytes # (auto) 1.73 K/uL (0.11-0.59); Monocytes % (auto) 25.7 %; Neutrophils # (auto) 3.65 K/uL (1.4-6.5); Neutrophils % (auto) 54.1 %; Platelet Count 124 K/uL (130-400); RDW Coefficient of Variation 15.6 % (11.5-14.5); RDW Standard Deviation 54.7 fL (36.4-46.3); Red Blood Count 2.98 M/uL (4.7-6.1); White Blood Count 6.74 K/uL (4.8-10.8)
[2021-09-04 07:25] LABS: BUN Creatinine Ratio 4.2 (10-20); Calcium 8.8 mg/dl (8.5-10.1); Est GFR (African American) 6.6 ml/min; Est GFR (Non-African American) 5.7 ml/min; Potassium 4.3 mmol/L (3.5-5.1)
[2021-09-04] MEDS: CALCIUM ACETATE 667 MG CAP/TAB PO SCH ×3 (09:42→16:03)
[2021-09-04] MEDS: PANTOprazole 40 MG TAB PO SCH (09:46)
[2021-09-04] MEDS: FAMOTIDINE 20 MG TAB PO SCH (09:46)
[2021-09-04] MEDS: FLUTICASONE/VILANTEROL 200/25MCG 14 PUFFS/INHALER INH SCH (09:46)
[2021-09-04] MEDS: NEPHROCAPS PO SCH (09:46)
[2021-09-04] MEDS: DICLOFENAC SOD 1% GEL 100 GM TUBE EXT SCH ×4 (09:46→20:20)
[2021-09-04] MEDS: UMECLIDINIUM BROMIDE 62.5MCG/BLISTER 7 PUFFS/INHALER INH SCH (09:46)
[2021-09-04] MEDS: ASPIRIN 81 MG ECTAB PO SCH (09:46)
[2021-09-04] MEDS: PREGABALIN 75 MG CAP PO SCH (09:49)
--- NOTE | 2021-09-04 10:49 | Hospitalist Progress Note ---
Date of Service September 04, 2021 Assessment & Plan (1) Small bowel obstruction: Plan: Patient with ileostomy in place since 2019, recent admission for pseudo- obstruction of ileostomy, fecal impaction presenting with recurrent abdominal pain, distention. CT suggestive of recurrent SBO. Also with gallstone in CBD - ?gallstone ileus SBO -Admit to medical -Patient initially improved with adequate output to ostomy, and moved to limited clears. Developed increased discomfort in abdomen and some belching/bloating was made n.p.o. with sips and chips. Improved output today, but remains somewhat tender at right abdomen. Continue n.p.o. today, if not improving will consult general surgery 09/05 CT: Suggestive of recurrent SBO -Patient on dialysis, had dialysis 09/04 gentle IVF with reduced rate while n.p.o. -Ostomy management -Gentle IVF, electrolyte repletion -Zofran as needed -Pain control -NGT and surgical consult if patient has worsening pain, nausea or distention -GI Consulted. No no gallstone appreciated on final read. Recommend antibiotics per primary team, primary team management of SBO with consideration of GEN surge consult if not improving, and deferring additional GI work-up at this time. Signed off. Appreciate recommendations. (2) CAD (coronary artery disease): Plan: Chronic. Stable -Continue ASA -Continue Plavix -Continue Atorvastatin (3) Atrial fibrillation: Plan: Rate controlled -Continue Amiodarone (4) ESRD (end stage renal disease) on dialysis: Plan: ESRD on dialysis Nephrology consulted No emergent decompensation Patient normally on Thursday dialysis Anticipate dialysis 09/05 Dialysis diet when tolerating -Continue Nephrocaps, PhosLo Patient dialyzed for goal of 3 L on 09/03 Potassium 4.3 (5) Hypothyroidism: Plan: Chronic. -Continue Synthroid 88 mcg daily (6) Hyperlipidemia: Plan: Chronic -Continue Atorvastatin (7) COPD (chronic obstructive pulmonary disease): Plan: Chronic. Stable -Continue supplemental O2 at home level -Continue Breo ElliptaVetobs (8) GERD (gastroesophageal reflux disease): Plan: Chronic. Stable -Continue Pepcid and Protonix (9) Gallstone: Plan: Noted on CT Abdomen. No abnormality in LFTs -GI consultation appreciated. Stone not mentioned on final read. See GI note. Plan: Code: Full code Disposition: Medical surgical FEN GI: N.p.o., IVFM LR 80cc/hr Admission and Anticipated Discharge Date Admission Date: September 02, 2021 Subjective Seen at bedside. Patient reports he initially felt improved with improved output into his ostomy, however he has had some pain around his ostomy since increasing clears. Lightly tender at right upper quadrant, no diffuse abdominal pain, epigastric pain. Denies burping/belching/nausea/vomiting/reflux. Patient reports he is hungry. Denies fever, chills, sweats. Is passing a fair amount of gas into his ostomy bag as well. Review of Systems Review of Systems: All systems reviewed & are unremarkable except as noted in Subjective Physical Exam Physical Exam: General: A&Ox3. NAD. Cooperative. HEENT: Atraumatic, normocephalic. Pupils equal and reactive to light and accommodation. Visual acuity and hearing grossly intact. Pulm: CTAB A&P. -wheezes, -rales, -rhonchi. Symmetrical chest rise. No increase work of breathing. No respiratory distress. Cardiac: RRR, -mrg. Radial pulses intact and symmetrical. Abdominal: Ostomy in place draining brown material. Gas present. Slight tenderness to palpation at right upper/lower quadrant around ostomy without epigastric or left quadrant tenderness, no rebound tenderness, no peritoneal signs. Bowel sounds intact. Results & Data Results & Data ([facility]) Vital Signs (Past 12 Hours) Vital Signs Temp Pulse Resp BP Pulse Ox 09/04/21 07:09 36.8 C 60 18 148/65 H 96 09/03/21 22:55 36.8 C 54 L 16 154/70 H 92 PG Care Time/CCT Total # of Minutes Spent Total Time Spent with Patient: Total time spent is greater than 50% in coordination of care (as documented) at patient's floor/unit and/or counseling patient: Coding Level of Care Code 13318 Subseq Hosp Care Lvl 3 Diagnoses Small bowel obstruction K56.609 CAD (coronary artery disease) I25.10 Coronary Disease-Associated Artery/Lesion type: [place] artery [place] vs. transplanted heart: [place] heart Associated angina: without angina Atrial fibrillation I48.91 ESRD (end stage renal disease) on dialysis N18.6; Z99.2 Hypothyroidism E03.9 Hyperlipidemia E78.5 COPD (chronic obstructive pulmonary disease) J44.9 GERD (gastroesophageal reflux disease) K21.9 Gallstone K80.20 (1) CAD (coronary artery disease) Coronary Disease-Associated Artery/Lesion type: [place] artery [place] vs. transplanted heart: [place] heart Associated angina: without angina Qualified Code(s): I25.10 - Atherosclerotic heart disease of [place] coronary artery without angina pectoris
[2021-09-04] MEDS: ACETAMINOPHEN 325 MG TAB PO PRN (13:14)
[2021-09-04] MEDS: CLOPIDOGREL BISULFATE 75 MG TAB PO SCH (13:14)
--- NOTE | 2021-09-04 15:59 | Nephrology Progress Note ---
Date of Service September 04, 2021 Assessment & Plan (1) ESRD (end stage renal disease) on dialysis: Plan: dialyzes MWF; for HD tomorrow > on 09/03 had 2K bath, 3.5 hr tx, goal up to 3L uf w/ sbp >100 -daily bmp, cbc ->>stopped LR which is K rich and not ok for dialysis > started D5W instead at 40 mL hourly; should help slight overload as well -no indication for CATARINA; will use mini heparin on tx -ensure dialysis diet if/when taking po -next HD tomorrow on 09/05 as IP depending on clinical status (2) Small bowel obstruction: Plan: per primary service -no further IVF needed; tolerating liquid diet Admission and Anticipated Discharge Date Admission Date: September 02, 2021 Subjective seen on rounds at about 0930 > back NPO and on LR at 80 ml/hr d/t recurretn abd pain ON, though pain ok now. no worse sob or orthopnea Review of Systems Review of Systems: All systems reviewed & are unremarkable except as noted in Subjective Physical Exam Constitutional: well developed, well nourished and cooperative; no acute distress Eyes: EOM intact bilaterally ENMT: Ears: no external ear abnormality Nose: no external nose abnormality Mouth: + dry oral mucous membranes Neck: no nuchal rigidity Respiratory: + labored breathing (slight) and able to speak in complete sentences (but slight dyspnea w/ this) Auscultation: + diminished lung sounds and + crackles (bibasilar) Cardiovascular: Rate/Rhythm: regular rate and regular rhythm Heart Sounds: normal S1, normal S2 and + murmur Extremities: + AV fistula (+ t/b); no edema Gastrointestinal (Abdomen): Inspection/Auscultation: normal bowel sounds Percussion/Palpation: abdomen soft (NT ileostomy RLQ); abdomen nontender Musculoskeletal: Extremities: strength 5/5 throughout Skin: no rashes, warm and dry Psychiatric: Orientation: alert and oriented x 3 Results & Data ([facility]) Vital Signs (Past 12 Hours) Vital Signs Temp Pulse Pulse Resp BP Pulse Ox 09/04/21 15:28 36.7 C 63 16 147/80 H 97 09/04/21 12:18 36.6 C 68 18 145/80 H 98 09/04/21 07:09 36.8 C 60 18 148/65 H 96 Laboratory Results 09/04/21 06:06 09/04/21 06:06
[2021-09-04] MEDS: DEXTROSE 5% 1,000 ML IV SCH (16:02)
[2021-09-04] MEDS: rOPINIRole HCL 0.25 MG TABLET PO SCH (20:20)
[2021-09-04] MEDS: DOCUSATE SODIUM 100 MG CAP PO SCH (20:21)
[2021-09-04] MEDS: ATORVASTATIN 40 MG TAB PO SCH (20:21)
[2021-09-04] MEDS: PARoxetine HCL 20 MG TAB PO SCH (20:21)
[2021-09-05] MEDS: LEVOTHYROXINE SODIUM 88 MCG TABLET PO SCH (05:47)
[2021-09-05] MEDS ORDERED: SODIUM CHLORIDE 0.9% 1000ML 1,000 ML IV PRN (07:44)
[2021-09-05 08:27] LABS: Basophils # (auto) 0.02 K/uL (0-0.2); Basophils % (auto) 0.3 %; Eosinophils # (auto) 0.28 K/uL (0-0.5); Hematocrit (blood only) 28.2 % (42-52); Hemoglobin 9.8 g/dL (14.0-18.0); Immature Granulocytes # (auto) 0.07 K/uL (0.00-0.02); Lymphocytes # (auto) 1.61 K/uL (1.2-3.4); Lymphocytes % (auto) 23.2 %; Mean Corpuscular Hemoglobin 33.2 pg (25-34); Mean Corpuscular Hgb Conc 34.8 g/dL (32-36); Mean Corpuscular Volume 95.6 fL (80-100); Mean Platelet Volume 8.9 fL (7.4-10.4); Monocytes # (auto) 0.58 K/uL (0.11-0.59); Monocytes % (auto) 8.3 %; Neutrophils # (auto) 4.39 K/uL (1.4-6.5); Neutrophils % (auto) 63.2 %; Platelet Count 128 K/uL (130-400); RDW Coefficient of Variation 15.4 % (11.5-14.5); Red Blood Count 2.95 M/uL (4.7-6.1); White Blood Count 6.95 K/uL (4.8-10.8)
[2021-09-05] MEDS: NEPHROCAPS PO SCH (08:40)
[2021-09-05] MEDS: FLUTICASONE/VILANTEROL 200/25MCG 14 PUFFS/INHALER INH SCH (08:40)
[2021-09-05] MEDS: AMIODARONE 200 MG TAB PO SCH (08:40)
[2021-09-05] MEDS: PANTOprazole 40 MG TAB PO SCH (08:40)
[2021-09-05] MEDS: ASPIRIN 81 MG ECTAB PO SCH (08:40)
[2021-09-05] MEDS: CALCIUM ACETATE 667 MG CAP/TAB PO SCH ×3 (08:40→18:16)
[2021-09-05] MEDS: UMECLIDINIUM BROMIDE 62.5MCG/BLISTER 7 PUFFS/INHALER INH SCH (08:40)
[2021-09-05] MEDS: PREGABALIN 75 MG CAP PO SCH (08:49)
[2021-09-05] MEDS: DICLOFENAC SOD 1% GEL 100 GM TUBE EXT SCH ×4 (08:49→21:08)
[2021-09-05] MEDS ORDERED: HEPARIN SOD (PORCINE) 1000 UNIT/ML IV SCH (09:00)
[2021-09-05] MEDS ORDERED: EPOETIN ALFA 10,000 UNITS/ML VIAL IV SCH (09:00)
[2021-09-05 09:05] LABS: BUN Creatinine Ratio 4.7 (10-20); Calcium 8.6 mg/dl (8.5-10.1); Creatinine Clr Calc Pharmacy 8.3 ml/min; Est GFR (African American) 5.3 ml/min; Est GFR (Non-African American) 4.5 ml/min; Potassium 4.2 mmol/L (3.5-5.1)
[2021-09-05] MEDS: HEPARIN SOD (PORCINE) 1000 UNIT/ML IV SCH ×2 (09:52→10:23)
[2021-09-05] MEDS: CLOPIDOGREL BISULFATE 75 MG TAB PO SCH (13:25)
--- NOTE | 2021-09-05 14:23 | Surgery Consultation ---
Date of Consultation September 05, 2021 Assessment & Plan (1) Fecal impaction: Repeat KUB. Can try irrigating ileostomy with golytely. May have a degree of stenosis but not a candidate for revision. Supervising Physician Co-Signing Physician Notes Patient has very mildly dilated small bowel on his CAT scan and does not have any nausea or vomiting He apparently developed some abdominal pain above the stoma-his CT showed some evidence of fecal matter He does have significant output from his ileostomy. He was very high risk at his initial operation and will be extremely high risk For additional surgery. We will attempt to obtain a CAT scan with contrast and try to assess the transit of the contrast Also attempt to give him clear liquids and advance his diet Would be very reluctant to operate unless absolutely necessary Be sure his electrolytes including mag and Phos are in order History of Present Illness Attending Physician: Mingo Worthington MD History of Present Illness 76 y/o male with abdominal pain admitted a week ago for SBO. Ileostomy had been irrigated, he was discharged 3 days ago but returned a few hours later for recurrent pain. No nausea or vomiting. Has been having ileostomy output. Pain is intermittent above the ileostomy. Not related to any oral intake or dialysis treatment. Dr. Restrepo performed subtotal colectomy in April 2019 for ischemia. Allergies Allergy/AdvReac Type Severity Reaction Status Date / Time oxycodone AdvReac Severe DELIRIUM Verified 09/02/21 01:52 tramadol AdvReac Severe dizziness;a Verified 09/02/21 01:52 nxiety;sob gabapentin AdvReac Intermediate Nausea Verified 09/02/21 01:52 Home Medications Medication Instructions Recorded Confirmed Type calcium acetate(phosphat bind) 667 667 mg PO TIDM 08/23/18 09/02/21 History mg capsule docusate sodium 100 mg capsule 100 mg PO HS 05/31/19 09/02/21 History aspirin 81 mg tablet,delayed 81 mg PO DAILY 05/01/20 09/02/21 History release (Aspirin Low Dose) vitamin B complex and vitamin C 1 mg PO DAILY 05/01/20 09/02/21 History no.20-folic acid 1 mg capsule (Triphrocaps) atorvastatin 40 mg tablet 40 mg PO HS #90 tab 11/13/20 09/02/21 Rx fluticasone furoate 200 1 inh INHALATION QAM #84 ea 11/23/20 09/02/21 Rx mcg-vilanterol 25 mcg/dose inhalation powder (Breo Ellipta) levothyroxine 88 mcg tablet 88 mcg PO DAILY #90 tab 11/23/20 09/02/21 Rx paroxetine HCl 20 mg tablet 20 mg PO HS #90 tab 01/21/21 09/02/21 Rx tiotropium bromide 18 mcg capsule 1 cap INHALATION QAM #1 inh 03/27/21 09/02/21 Rx with inhalation device (Spiriva with HandiHaler) aluminum-mag hydroxide-simethicone 30 ml PO DIRECTED PRN 04/08/21 09/02/21 History 200 mg-200 mg-20 mg/5 mL oral susp famotidine 20 mg tablet 20 mg PO 3XWK 04/08/21 09/02/21 History ipratropium 0.5 mg-albuterol 3 mg 3 ml INHALATION Q4H PRN 04/08/21 09/02/21 History (2.5 mg base)/3 mL nebulization soln lidocaine 4 % topical patch 1 patch TOPICAL DAILY PRN 04/08/21 09/02/21 History (Aspercreme (lidocaine)) nitroglycerin 0.4 mg sublingual 0.4 mg SUBLINGUAL DIRECTED PRN 04/08/21 09/02/21 History tablet (Nitrostat) ropinirole 0.25 mg tablet 0.25 mg PO HS 04/08/21 09/02/21 History sennosides 8.6 mg tablet (Senokot) 8.6 mg PO DAILY PRN 04/08/21 09/02/21 History acetaminophen 325 mg capsule 650 mg PO QID PRN #30 cap 04/13/21 09/02/21 Rx diclofenac sodium 1 % topical gel 2 g TOPICAL QID #100 g 04/13/21 09/02/21 Rx (Voltaren Arthritis Pain) pregabalin 75 mg capsule (Lyrica) 75 mg PO QAM #30 cap 05/15/21 09/02/21 Rx clopidogrel 75 mg tablet 75 mg PO QDL 05/31/21 09/02/21 History Oxygen Home #1 ea 06/04/21 08/06/21 Rx amiodarone 200 mg tablet 200 mg PO Q OTHER DAY #14 tab 07/11/21 09/02/21 Rx pantoprazole 40 mg tablet,delayed 40 mg PO QAM #90 tab 07/11/21 09/02/21 Rx release temazepam 15 mg capsule 15 mg PO HS PRN #60 cap 08/19/21 09/02/21 Rx Patient History Medical History AAA (abdominal aortic aneurysm) Anemia, chronic renal failure AV fistula right arm CAD (coronary artery disease) Chronic back pain Chronic GERD Chronic right-sided CHF (congestive heart failure) Chronic ulcer of great toe of left foot with fat layer exposed COPD (chronic obstructive pulmonary disease) CVA (cerebral vascular accident) "NO RESIDUAL EFFECTS" PER RECORDS Dependence on renal dialysis Depression Dermatitis Diastolic CHF DVT (deep venous thrombosis) Elevated troponin Encounter for central line placement GERD (gastroesophageal reflux disease) H/O: gout Hyperlipidemia Hypothyroidism Ileostomy in place 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 (Dr Sj Restrepo) Memory loss or impairment Myocardial infarct, old 2010 Necrosis of colon Orthostatic hypotension Oxygen dependent Peripheral vascular disease Skin ulcers of both feet Valvular disease S/P MVR (2010); ?AVR PER RECORDS Vitamin D deficiency Surgical History Difficult intubation B/L Anteriogram, Right femoral to anterior tibial cadaver vein bypass= 08/06/18= Grade view 4, MAC 3 --> Glidescope #3, ETT 7.5 at [facility] H/O abdominal aortic aneurysm repair 2011 H/O [id number] bypass 2012 H/O mitral valve repair 2010; ?AVR PER RECORDS Hx of CABG S/P CABG X2 (DURING MVR) 2010 S/P AAA repair S/P ablation of atrial fibrillation S/P cholecystectomy S/P femoral-popliteal bypass surgery S/P MVR (mitral valve repair) Status post transmetatarsal amputation of right foot Family History Mother Essential hypertension Father , age 76 Myocardial infarction Denies family history of Colon cancer Ovarian cancer Prostate cancer Breast cancer Social History Smoking Status: Never smoker Tobacco Type: Cigarettes Years Smoked: 5; Second Hand Exposure: No; Do You Dip or Chew Tobacco: No; Hx Alcohol Use: No Hx Substance Use: No Preferred Language: Lithuanian Communication Ability: Effective Visual Impairment: No Limitations Hearing Ability: Normal Veterinary Pathologist Required: No Beliefs That Will Affect Care: None marital status: Single marital status details: 1 daughter Current Living Situation: Family Current Living Situation Comment: lives with sister. 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 at Home: Yes Safety Concerns: Feels Safe At This Time Childhood Exposure to Second-Hand Smoke: No Dental Care, Regularly: Yes Physical Activity Frequency: Other Physical Activity Frequency Comment: Physical activity limited by patients medical conditions Seatbelt Use: always Sunscreen Use: Yes Assistive Devices: None Review of Systems Constitutional: no fever and no chills Gastrointestinal: + abdominal pain; no nausea and no vomiting Physical Exam Constitutional: WD/WN, vitals as above Gastrointestinal (Abdomen): Inspection/Auscultation: abdomen not distended Percussion/Palpation: abdomen soft; abdomen nontender not able to digitize beyond skin Results & Data ([facility]) Vital Signs (Past 12 Hours) Vital Signs Temp Pulse Pulse Pulse Resp BP BP 09/05/21 12:47 36.5 C 60 179/58 H 09/05/21 12:33 60 178/62 H 09/05/21 12:00 60 182/62 H 09/05/21 11:40 59 L 163/60 H 09/05/21 11:20 59 L 175/60 H 09/05/21 11:00 58 L 207/65 H 09/05/21 10:40 61 201/63 H 09/05/21 10:20 61 211/73 H 09/05/21 10:00 60 201/69 H 09/05/21 09:40 58 L 195/70 H 09/05/21 09:20 58 L 181/71 H 09/05/21 09:04 57 L 196/81 H 09/05/21 09:00 36.5 C 58 L 09/05/21 07:06 36.5 C 58 L 18 154/67 H Pulse Ox 09/05/21 12:47 09/05/21 12:33 09/05/21 12:00 09/05/21 11:40 09/05/21 11:20 09/05/21 11:00 09/05/21 10:40 09/05/21 10:20 09/05/21 10:00 09/05/21 09:40 09/05/21 09:20 09/05/21 09:04 09/05/21 09:00 09/05/21 07:06 98 PG Care Time/CCT Total # of Minutes Spent Total Time Spent with Patient: Total time spent is greater than 50% in coordination of care (as documented) at patient's floor/unit and/or counseling patient: Coding Level of Care Code 45851 Initial Inpt Care Lvl 1 Diagnoses Fecal impaction K56.41
[2021-09-05] MEDS ORDERED: LAVAGE SOLUTION 4000ML PR SCH ×2 (14:45)
[2021-09-05 15:55] LABS: Magnesium 1.9 mg/dl (1.8-2.4); Phosphorus 5.6 mg/dl (2.5-4.9)
--- NOTE | 2021-09-05 16:03 | Hospitalist Progress Note ---
Date of Service September 05, 2021 Assessment & Plan (1) Small bowel obstruction: Plan: Patient with ileostomy in place since 2019, recent admission for pseudo- obstruction of ileostomy, fecal impaction presenting with recurrent abdominal pain, distention. CT suggestive of recurrent SBO. SBO -Admit to medical -Patient initially improved with adequate output to ostomy, and moved to limited clears. Developed increased discomfort in abdomen and some belching/bloating was made n.p.o. with sips and chips. CT: Suggestive of recurrent SBO. Compared to previous examination, there has been interval recurrence of mild fecal impaction of the distal ileum and within the ileostomy as it extends through the subcutaneous fat. There is again mild pseudoobstruction of the more proximal small bowel with mild to moderate dilatation and fluid levels present. The stomach is also distended with liquid and food stuff. No other acute intra-abdominal abnormality with chronic changes again noted above. -Ostomy management persistent Franny-ostomy RUQ pain -Surgery consulted. High risk at initial operation, and continues to be high risk for additional surgery. Will attempt CAT scan with contrast to try to assess the transit of contrast, and attempt to advance with clear liquids. Optimize mag/Phos. Appreciate recommendations. -Zofran as needed -Pain control as needed, pain tolerable to patient at time of assessment -GI Consulted. No no gallstone appreciated on final read. Recommend antibiotics per primary team, primary team management of SBO with consideration of GEN surge consult if not improving, and deferring additional GI work-up at this time. Signed off. Appreciate recommendations. (2) CAD (coronary artery disease): Plan: Chronic. Stable -Continue ASA -Continue Plavix -Continue Atorvastatin (3) Atrial fibrillation: Plan: Rate controlled -Continue Amiodarone (4) ESRD (end stage renal disease) on dialysis: Plan: ESRD on dialysis Nephrology consulted No emergent decompensation Patient normally on Thursday dialysis On gentle D50, avoid potassium containing fluids Dialysis diet when tolerating -Continue Nephrocaps, PhosLo Potassium 4.2 -Phosphorus 5.6, mag 1.9 (5) Hypothyroidism: Plan: Chronic. -Continue Synthroid 88 mcg daily (6) Hyperlipidemia: Plan: Chronic -Continue Atorvastatin (7) COPD (chronic obstructive pulmonary disease): Plan: Chronic. Stable -Continue supplemental O2 at home level -Continue Michelle Dillon (8) GERD (gastroesophageal reflux disease): Plan: Chronic. Stable -Continue Pepcid and Protonix (9) Gallstone: Plan: Noted on CT Abdomen. No abnormality in LFTs -GI consultation appreciated. Stone not mentioned on final read. See GI note. Plan: Code: Full code Disposition: Medical surgical FEN GI: Dialysis renal clears Admission and Anticipated Discharge Date Admission Date: September 04, 2021 Miriam Mcnamara is seen at the bedside this morning post dialysis. He reports that he had over a liter of fluid taken off, feels well since. He reports he is hungry, and has had continued output through his ostomy but also continues to have pain and tenderness in his right upper quadrant around the ostomy. No fevers, chills, sweats, shortness of breath, difficulty breathing, lightheadedness, dizziness, syncope, presyncope, numbness, tingling. Case discussed with surgical team. Patient difficult intervention at last surgery, recommend pursuing medical management and deferring surgery if at all possible. Will attempt irrigating ileostomy with GoLYTELY, potential stenosis is possible but patient is not a candidate for revision. Review of Systems Review of Systems: All systems reviewed & are unremarkable except as noted in Subjective Physical Exam Physical Exam: General: A&Ox3. NAD. Cooperative. HEENT: Atraumatic, normocephalic. Pupils equal and reactive to light and accommodation. Visual acuity and hearing grossly intact. Pulm: CTAB A&P. -wheezes, -rales, -rhonchi. Symmetrical chest rise. No increase work of breathing. No respiratory distress. Cardiac: RRR, -mrg. Radial pulses intact and symmetrical. Abdominal: Ostomy in place draining brown material. Gas present. Persistent tenderness to palpation at right upper/lower quadrant around ostomy without epigastric or left quadrant tenderness, no rebound tenderness, no peritoneal signs. Bowel sounds intact. Results & Data Results & Data ([facility]) Vital Signs (Past 12 Hours) Vital Signs Temp Pulse Pulse Pulse Resp BP BP 09/05/21 14:48 36.3 C L 62 18 153/67 H 09/05/21 12:47 36.5 C 60 179/58 H 09/05/21 12:33 60 178/62 H 09/05/21 12:00 60 182/62 H 09/05/21 11:40 59 L 163/60 H 09/05/21 11:20 59 L 175/60 H 09/05/21 11:00 58 L 207/65 H 09/05/21 10:40 61 201/63 H 09/05/21 10:20 61 211/73 H 09/05/21 10:00 60 201/69 H 09/05/21 09:40 58 L 195/70 H 09/05/21 09:20 58 L 181/71 H 09/05/21 09:04 57 L 196/81 H 09/05/21 09:00 36.5 C 58 L 09/05/21 07:06 36.5 C 58 L 18 154/67 H Pulse Ox 09/05/21 14:48 92 09/05/21 12:47 09/05/21 12:33 09/05/21 12:00 09/05/21 11:40 09/05/21 11:20 09/05/21 11:00 09/05/21 10:40 09/05/21 10:20 09/05/21 10:00 09/05/21 09:40 09/05/21 09:20 09/05/21 09:04 09/05/21 09:00 09/05/21 07:06 98 PG Care Time/CCT Total # of Minutes Spent Total Time Spent with Patient: Total time spent is greater than 50% in coordination of care (as documented) at patient's floor/unit and/or counseling patient: Coding Level of Care Code 62352 Subseq Hosp Care Lvl 2 Diagnoses Small bowel obstruction K56.609 CAD (coronary artery disease) I25.10 Coronary Disease-Associated Artery/Lesion type: [place] artery [place] vs. transplanted heart: [place] heart Associated angina: without angina Atrial fibrillation I48.91 ESRD (end stage renal disease) on dialysis N18.6; Z99.2 Hypothyroidism E03.9 Hyperlipidemia E78.5 COPD (chronic obstructive pulmonary disease) J44.9 GERD (gastroesophageal reflux disease) K21.9 Gallstone K80.20 (1) CAD (coronary artery disease) Coronary Disease-Associated Artery/Lesion type: [place] artery [place] vs. transplanted heart: [place] heart Associated angina: without angina Qualified Code(s): I25.10 - Atherosclerotic heart disease of [place] coronary artery without angina pectoris
--- NOTE | 2021-09-05 17:20 | XRay Report ---
KUB HISTORY: Follow up study in a patient with small bowel obstruction SBO COMPARISON: CT abdomen and pelvis 09/02/2021, KUB 08/30/2021 FINDINGS: Aortobiiliac stent graft with prominent vascular calcifications. Prior median sternotomy. T here is retained enteric contrast within the stomach. Right lower quadrant ostomy. There is persisten t air-filled distended loops of small bowel noted within the abdomen. No renal calculi. No ureteral calculi. No pneumoperitoneum or pneumatosis. Degenerative changes of the spine, pelvis and hips. No f racture. IMPRESSION: Persistent air-filled dilated loops of small bowel suspicious for obstruction. Continued follow-up re commended. ACT 112: Negative or not required by law. The above report was generated using voice recognition software. It may contain grammatical, syntax o r spelling errors. Electronically signed by: King Ford M.D. 09/05/2021 5:19 PM
--- NOTE | 2021-09-05 18:23 | Nephrology Progress Note ---
Date of Service September 05, 2021 Assessment & Plan (1) ESRD (end stage renal disease) on dialysis: Plan: dialyzes MWF but off cycle here. had HD today w/ 2.5L UF -daily bmp, cbc > cont D5W at 40 mL hourly; avoid K-rich LR in dialysis pt -no indication for CATARINA; will use mini heparin on tx -ensure dialysis diet if/when taking po -next HD tomorrow on 09/07 as IP depending on clinical status (2) Small bowel obstruction: Plan: per primary service and surgery Admission and Anticipated Discharge Date Admission Date: September 04, 2021 Subjective ostomy irrigation w/ go lytely planned; pt had CT scan in prep for this this evening. surgery following but in this very high risk pt medical mgt of fecal impaction better unless no other recourse. no worsening sob; endorses marked fatigue; states abd pain around ostomy still present but a bit better; no dialysis related c/o Review of Systems Review of Systems: All systems reviewed & are unremarkable except as noted in Subjective Physical Exam Constitutional: well developed, well nourished and cooperative; no acute distress Eyes: EOM intact bilaterally ENMT: Ears: no external ear abnormality Nose: no external nose abnormality Mouth: + dry oral mucous membranes Neck: no nuchal rigidity Respiratory: + labored breathing (slight) and able to speak in complete sentences Auscultation: + diminished lung sounds and + crackles (bibasilar) Cardiovascular: Rate/Rhythm: regular rate and regular rhythm Heart Sounds: normal S1, normal S2 and + murmur Extremities: + AV fistula (+ t/b); no edema Gastrointestinal (Abdomen): Inspection/Auscultation: normal bowel sounds Percussion/Palpation: abdomen soft (NT ileostomy RLQ); abdomen nontender Musculoskeletal: Extremities: strength 5/5 throughout Skin: no rashes, warm and dry Psychiatric: Orientation: alert and oriented x 3 Results & Data ([facility]) Vital Signs (Past 12 Hours) Vital Signs Temp Pulse Pulse Pulse Resp BP BP 09/05/21 14:48 36.3 C L 62 18 153/67 H 09/05/21 12:47 36.5 C 60 179/58 H 09/05/21 12:33 60 178/62 H 09/05/21 12:00 60 182/62 H 09/05/21 11:40 59 L 163/60 H 09/05/21 11:20 59 L 175/60 H 09/05/21 11:00 58 L 207/65 H 09/05/21 10:40 61 201/63 H 09/05/21 10:20 61 211/73 H 09/05/21 10:00 60 201/69 H 09/05/21 09:40 58 L 195/70 H 09/05/21 09:20 58 L 181/71 H 09/05/21 09:04 57 L 196/81 H 09/05/21 09:00 36.5 C 58 L 09/05/21 07:06 36.5 C 58 L 18 154/67 H Pulse Ox 09/05/21 14:48 92 09/05/21 12:47 09/05/21 12:33 09/05/21 12:00 09/05/21 11:40 09/05/21 11:20 09/05/21 11:00 09/05/21 10:40 09/05/21 10:20 09/05/21 10:00 09/05/21 09:40 09/05/21 09:20 09/05/21 09:04 09/05/21 09:00 09/05/21 07:06 98 Laboratory Results 09/05/21 07:42 09/05/21 07:42
--- NOTE | 2021-09-05 19:14 | CT Scan Report ---
CT abd pelvis oral con only CLINICAL HISTORY: Abdominal pain and distention. Evaluate for recurrent small bowel obstruction COMPARISON STUDY: 08/31/2021 CT DOSE: 784.07 mGy.cm TECHNIQUE: Standard CT of the Abdomen and Pelvis was performed without IV contrast. The patient rece ived oral contrast. A dose lowering technique was utilized adhering to the principles of ALARA. FINDINGS: Lung base: There is again chronic pleural thickening at the right lung base with scarring present. T he lung bases are otherwise clear. There is again cardiomegaly with coronary artery calcification. Abdominal and bowel: Compared to the previous examination, there is no evidence for pseudoobstruction or small bowel obstruction. Oral contrast from stomach and throughout the small bowel to the level o f the patient's ileostomy. There is no evidence for small bowel dilatation or obstruction. Minimal or al contrast extends to the ileostomy as it extends through the subcutaneous fat. There is no evidence for distention of the stomach current study. There is no evidence for abdominal mass, adenopathy or ascites. Liver: The liver is homogeneous in attenuation on these limited noncontrast images.. Spleen: The spleen is homogeneous in attenuation on these limited noncontrast images. Pancreas: The pancreas is homogeneous in attenuation on these limited noncontrast images. Gall Bladder: Surgical clips are again seen from previous cholecystectomy. Adrenal glands: The adrenal glands are normal in size and attenuation on these limited noncontrast im ages. Kidneys: The kidneys are atrophic bilaterally bilateral renal cysts again seen. Renal vascular calcif ication is noted with no evidence for obstruction or hydronephrosis. Bladder: There is no evidence for focal bladder wall thickening, calculus or diverticulum. : There is no evidence for pelvic mass or adenopathy. There is again mild to moderate prostate enla rgement. Vasculature: There is no evidence for focal aneurysmal dilatation of the abdominal aorta. Osseous structures: There is no acute osseous pathology. IMPRESSION: 1. Compared to the previous examination, there is no evidence for recurrent pseudoobstruction or smal l bowel obstruction as described above. 2. No other evidence for acute intra-abdominal or pelvic abnormality on these limited noncontrast brenna ges. 3. Additional nonacute findings are again delineated above. ACT 112: Negative or not required by law. Electronically signed by: Aydin Fine M.D. 09/05/2021 7:13 PM
[2021-09-05] MEDS: PARoxetine HCL 20 MG TAB PO SCH (21:08)
[2021-09-05] MEDS: rOPINIRole HCL 0.25 MG TABLET PO SCH (21:09)
[2021-09-05] MEDS: ATORVASTATIN 40 MG TAB PO SCH (21:09)
[2021-09-05] MEDS: DOCUSATE SODIUM 100 MG CAP PO SCH (21:10)
[2021-09-05] MEDS: DEXTROSE 5% 1,000 ML IV SCH (23:32)
[2021-09-06] MEDS: LEVOTHYROXINE SODIUM 88 MCG TABLET PO SCH (05:46)
[2021-09-06 07:13] LABS: Basophils # (auto) 0.05 K/uL (0-0.2); Basophils % (auto) 0.6 %; Eosinophils # (auto) 0.27 K/uL (0-0.5); Eosinophils % (auto) 3.2 %; Hematocrit (blood only) 29.7 % (42-52); Hemoglobin 9.8 g/dL (14.0-18.0); Immature Granulocytes # (auto) 0.26 K/uL (0.00-0.02); Immature Granulocytes % (auto) 3.1 %; Lymphocytes # (auto) 1.28 K/uL (1.2-3.4); Lymphocytes % (auto) 15.1 %; Mean Corpuscular Hemoglobin 32.1 pg (25-34); Mean Corpuscular Volume 97.4 fL (80-100); Mean Platelet Volume 8.8 fL (7.4-10.4); Monocytes # (auto) 1.57 K/uL (0.11-0.59); Monocytes % (auto) 18.5 %; Neutrophils # (auto) 5.05 K/uL (1.4-6.5); Neutrophils % (auto) 59.5 %; Platelet Count 140 K/uL (130-400); RDW Coefficient of Variation 15.5 % (11.5-14.5); Red Blood Count 3.05 M/uL (4.7-6.1); White Blood Count 8.48 K/uL (4.8-10.8)
--- NOTE | 2021-09-06 07:43 | XRay Report ---
KUB HISTORY: Acute generalized abdominal pain assess transit of contrast COMPARISON: CT abdomen and pelvis 09/05/2021 FINDINGS: Nonobstructive bowel gas pattern. Right lower quadrant ostomy. No definite residual enteric contrast is identified. Vascular calcifications. Cholecystectomy. Aortobiiliac stent graft. Sternoto my wires are noted with cardiomegaly. No renal calculi. No ureteral calculi. No pneumoperitoneum or pneumatosis. Degenerative changes of the spine, pelvis and hips. No fracture. IMPRESSION: The bowel gas pattern appears to be nonobstructive. ACT 112: Negative or not required by law. The above report was generated using voice recognition software. It may contain grammatical, syntax o r spelling errors. Electronically signed by: King Ford M.D. 09/06/2021 7:42 AM
[2021-09-06 07:56] LABS: BUN Creatinine Ratio 3.2 (10-20); Calcium 8.5 mg/dl (8.5-10.1); Potassium 3.6 mmol/L (3.5-5.1)
[2021-09-06 07:57] LABS: Creatinine Clr Calc Pharmacy 11.3 ml/min; Est GFR (African American) 7.7 ml/min; Est GFR (Non-African American) 6.6 ml/min
[2021-09-06] MEDS: CALCIUM ACETATE 667 MG CAP/TAB PO SCH ×3 (08:58→18:06)
[2021-09-06] MEDS: ASPIRIN 81 MG ECTAB PO SCH (08:58)
[2021-09-06] MEDS: FLUTICASONE/VILANTEROL 200/25MCG 14 PUFFS/INHALER INH SCH (08:59)
[2021-09-06] MEDS: FAMOTIDINE 20 MG TAB PO SCH (08:59)
[2021-09-06] MEDS: DICLOFENAC SOD 1% GEL 100 GM TUBE EXT SCH ×4 (08:59→21:40)
[2021-09-06] MEDS: UMECLIDINIUM BROMIDE 62.5MCG/BLISTER 7 PUFFS/INHALER INH SCH (09:00)
[2021-09-06] MEDS: NEPHROCAPS PO SCH (09:00)
[2021-09-06] MEDS: PANTOprazole 40 MG TAB PO SCH (09:00)
[2021-09-06] MEDS: PREGABALIN 75 MG CAP PO SCH (09:02)
--- NOTE | 2021-09-06 10:12 | Surgery Progress Note ---
Date of Service September 06, 2021 Assessment & Plan (1) Small bowel obstruction: Plan: Obviously the patient could have some type of adhesive disease but is not causing any significant obstruction We will advance his diet to low fiber We will add senna syrup twice daily We will add mineral oil 2-3 times per week Continue to assess patient Admission and Anticipated Discharge Date Admission Date: September 04, 2021 Subjective Patient has been somewhat nonspecific abdominal complaints He tolerated his CAT scan well All contrast traversed through into his ileostomy without evidence of obstruction KUB this morning shows no evidence of obstruction Review of Systems Constitutional: no fever and no chills Gastrointestinal: + abdominal pain; no nausea and no vomiting Results & Data ([facility]) Vital Signs (Past 12 Hours) Vital Signs Temp Pulse Resp BP Pulse Ox 09/06/21 07:37 36.5 C 61 16 143/63 H 98 09/05/21 23:32 36.7 C 61 16 119/62 94 Diagnostic Findings I did review his KUB PG Care Time/CCT Total # of Minutes Spent Total Time Spent with Patient: Total time spent is greater than 50% in coordination of care (as documented) at patient's floor/unit and/or counseling patient: Coding Level of Care Code 63916 Inpt Consult Level 3 Diagnoses Small bowel obstruction K56.609
[2021-09-06] MEDS: CLOPIDOGREL BISULFATE 75 MG TAB PO SCH (12:22)
--- NOTE | 2021-09-06 12:51 | Hospitalist Progress Note ---
Date of Service September 06, 2021 Assessment & Plan (1) Small bowel obstruction: Plan: Patient with ileostomy in place since 2019, recent admission for pseudo- obstruction of ileostomy, fecal impaction presenting with recurrent abdominal pain, distention. CT suggestive of recurrent SBO. SBO -Admit to medical -Patient initially improved with adequate output to ostomy, and moved to limited clears. Developed increased discomfort in abdomen and some belching/bloating was made n.p.o. with sips and chips. CT: Suggestive of recurrent SBO. Compared to previous examination, there has been interval recurrence of mild fecal impaction of the distal ileum and within the ileostomy as it extends through the subcutaneous fat. There is again mild pseudoobstruction of the more proximal small bowel with mild to moderate dilatation and fluid levels present. The stomach is also distended with liquid and food stuff. No other acute intra-abdominal abnormality with chronic changes again noted above. -Ostomy management Right upper quadrant pain around ostomy improved 09/06 compared to prior -Surgery consulted. High risk at initial operation, and continues to be high risk for additional surgery. Will attempt CAT scan with contrast to try to assess the transit of contrast, and attempt to advance with clear liquids. Optimize mag/Phos. Appreciate recommendations. -Zofran as needed -Pain control as needed, pain tolerable to patient at time of assessment -GI Consulted. No no gallstone appreciated on final read. Signed off Diet advancing per surgery (2) CAD (coronary artery disease): Plan: Chronic. Stable -Continue ASA -Continue Plavix -Continue Atorvastatin (3) Atrial fibrillation: Plan: Rate controlled -Continue Amiodarone (4) ESRD (end stage renal disease) on dialysis: Plan: ESRD on dialysis Nephrology consulted No emergent decompensation Patient normally on Thursday dialysis -Continue Nephrocaps, PhosLo Anticipate dialysis evening of 09/06, no overt fluid overload on physical exam (5) Hypothyroidism: Plan: Chronic. -Continue Synthroid 88 mcg daily (6) Hyperlipidemia: Plan: Chronic -Continue Atorvastatin (7) COPD (chronic obstructive pulmonary disease): Plan: Chronic. Stable -Continue supplemental O2 at home level -Continue Breo Raj GoodmanoNebs (8) GERD (gastroesophageal reflux disease): Plan: Chronic. Stable -Continue Pepcid and Protonix (9) Gallstone: Plan: Noted on CT Abdomen. No abnormality in LFTs -GI consultation appreciated. Stone not mentioned on final read. See GI note. Plan: Code: Full code Disposition: Medical surgical FEN GI: Dialysis renal clears Admission and Anticipated Discharge Date Admission Date: September 04, 2021 Subjective Seen at the bedside this morning. He reports he feels improved from prior, has less pain to almost no pain this morning.Has some bruising on his left arm, and some blisters around Tegaderm/tape of his prior IV site. Saw surgery this morning, diet slowly advancing. Anticipate dialysis today, has not had yet. No additional questions or concerns at bedside Review of Systems Review of Systems: All systems reviewed & are unremarkable except as noted in Subjective Physical Exam Physical Exam: General: A&Ox3. NAD. Cooperative. HEENT: Atraumatic, normocephalic. Pupils equal and reactive to light and accommodation. Visual acuity and hearing grossly intact. Pulm: CTAB A&P. -wheezes, -rales, -rhonchi. Symmetrical chest rise. No increase work of breathing. No respiratory distress. Cardiac: RRR, -mrg. Radial pulses intact and symmetrical. Abdominal: Ostomy in place draining brown material. Gas present. Persistent tenderness to palpation at right upper/lower quadrant around ostomy without epigastric or left quadrant tenderness, no rebound tenderness, no peritoneal signs. Bowel sounds intact. Extremity: Left upper forearm with medial slight contusion, no firmness. Left upper arm with slight bullae and petechiae at prior site of IV, no erythema/warmth/tenderness/purulence. Right arm with fistula intact. Distal pulse intact and cap refill in fingertips intact. Results & Data Results & Data ([facility]) Vital Signs (Past 12 Hours) Vital Signs Temp Pulse Resp BP Pulse Ox 09/06/21 07:37 36.5 C 61 16 143/63 H 98 PG Care Time/CCT Total # of Minutes Spent Total Time Spent with Patient: Total time spent is greater than 50% in coordination of care (as documented) at patient's floor/unit and/or counseling patient: Coding Level of Care Code 22260 Subseq Hosp Care Lvl 2 Diagnoses Small bowel obstruction K56.609 CAD (coronary artery disease) I25.10 Coronary Disease-Associated Artery/Lesion type: [place] artery [place] vs. transplanted heart: [place] heart Associated angina: without angina Atrial fibrillation I48.91 ESRD (end stage renal disease) on dialysis N18.6; Z99.2 Hypothyroidism E03.9 Hyperlipidemia E78.5 COPD (chronic obstructive pulmonary disease) J44.9 GERD (gastroesophageal reflux disease) K21.9 Gallstone K80.20 (1) CAD (coronary artery disease) Coronary Disease-Associated Artery/Lesion type: [place] artery [place] vs. transplanted heart: [place] heart Associated angina: without angina Qualified Code(s): I25.10 - Atherosclerotic heart disease of [place] coronary artery without angina pectoris
[2021-09-06] MEDS ORDERED: HEPARIN SOD (PORCINE) 1000 UNIT/ML IV ONE (13:54)
[2021-09-06] MEDS ORDERED: SODIUM CHLORIDE 0.9% 1000ML 1,000 ML IV PRN (13:54)
[2021-09-06] MEDS ORDERED: EPOETIN ALFA 4,000 UNIT/ML VIAL IV SCH (14:15)
[2021-09-06] MEDS: HEPARIN SOD (PORCINE) 1000 UNIT/ML IV SCH ×2 (15:05→16:14)
--- NOTE | 2021-09-06 18:10 | Nephrology Progress Note ---
Date of Service September 06, 2021 Assessment & Plan (1) ESRD (end stage renal disease) on dialysis: Plan: dialyzes MWF but off cycle here until today. had HD yesterday w/ 2.5L UF; for HD today w/ 2L. -daily bmp, cbc > stopped IVF since he is taking po; avoid K-rich LR in dialysis pt -no indication for CATARINA; will use mini heparin on tx -cont dialysis diet; added fluid limit 1.8L (usually more in 1.2-1.5L range) -next HDon 09/09 as IP or OP depending on clinical status (2) Small bowel obstruction: Plan: per primary service and surgery Admission and Anticipated Discharge Date Admission Date: September 04, 2021 Subjective seen just after HD today where he had uneventful tx w/ 2L UF; no sob; abd pain controlled for now > tolerating regular diet Review of Systems Review of Systems: All systems reviewed & are unremarkable except as noted in Subjective Physical Exam Constitutional: well developed, well nourished and cooperative; no acute distress Eyes: EOM intact bilaterally ENMT: Ears: no external ear abnormality Nose: no external nose abnormality Mouth: + dry oral mucous membranes Neck: no nuchal rigidity Respiratory: + labored breathing (slight) and able to speak in complete sentences Auscultation: + diminished lung sounds and + crackles (bibasilar) Cardiovascular: Rate/Rhythm: regular rate and regular rhythm Heart Sounds: normal S1, normal S2 and + murmur Extremities: + AV fistula (+ t/b); no edema Gastrointestinal (Abdomen): Inspection/Auscultation: normal bowel sounds Percussion/Palpation: abdomen soft (NT ileostomy RLQ); abdomen nontender Musculoskeletal: Extremities: strength 5/5 throughout Skin: no rashes, warm and dry Psychiatric: Orientation: alert and oriented x 3 Results & Data ([facility]) Vital Signs (Past 12 Hours) Vital Signs Temp Pulse Pulse Pulse Resp BP BP 09/06/21 18:03 36.9 C 76 16 166/56 H 09/06/21 17:47 36.4 C L 66 177/68 H 09/06/21 17:23 65 151/66 H 09/06/21 17:00 64 154/61 H 09/06/21 16:40 62 145/62 H 09/06/21 16:20 63 145/68 H 09/06/21 16:00 62 153/69 H 09/06/21 15:40 64 174/70 H 09/06/21 15:20 61 168/70 H 09/06/21 15:00 76 09/06/21 14:40 62 168/68 H 09/06/21 14:20 64 133/55 L 09/06/21 14:00 63 154/66 H 09/06/21 13:54 65 147/70 H 09/06/21 13:45 36.7 C 66 09/06/21 07:37 36.5 C 61 16 143/63 H Pulse Ox 09/06/21 18:03 97 09/06/21 17:47 09/06/21 17:23 09/06/21 17:00 09/06/21 16:40 09/06/21 16:20 09/06/21 16:00 09/06/21 15:40 09/06/21 15:20 09/06/21 15:00 09/06/21 14:40 09/06/21 14:20 09/06/21 14:00 09/06/21 13:54 09/06/21 13:45 09/06/21 07:37 98 Laboratory Results 09/06/21 06:44 09/06/21 06:44
[2021-09-06] MEDS: ATORVASTATIN 40 MG TAB PO SCH (21:41)
[2021-09-06] MEDS: rOPINIRole HCL 0.25 MG TABLET PO SCH (21:42)
[2021-09-06] MEDS: SENNOSIDES 8.8 MG/5 ML UDC PO SCH (21:42)
[2021-09-06] MEDS: DOCUSATE SODIUM 100 MG CAP PO SCH (21:42)
[2021-09-06] MEDS: PARoxetine HCL 20 MG TAB PO SCH (21:42)
[2021-09-06] MEDS: TEMAZEPAM 15 MG CAPSULE PO PRN (21:45)
[2021-09-07] MEDS: LEVOTHYROXINE SODIUM 88 MCG TABLET PO SCH (05:56)
[2021-09-07] MEDS: ACETAMINOPHEN 325 MG TAB PO PRN (07:31)
[2021-09-07] MEDS: ASPIRIN 81 MG ECTAB PO SCH (08:29)
[2021-09-07] MEDS: UMECLIDINIUM BROMIDE 62.5MCG/BLISTER 7 PUFFS/INHALER INH SCH (08:29)
[2021-09-07] MEDS: NEPHROCAPS PO SCH (08:29)
[2021-09-07] MEDS: AMIODARONE 200 MG TAB PO SCH (08:29)
[2021-09-07] MEDS: CALCIUM ACETATE 667 MG CAP/TAB PO SCH ×3 (08:29→17:39)
[2021-09-07] MEDS: SENNOSIDES 8.8 MG/5 ML UDC PO SCH ×4 (08:29→19:43)
[2021-09-07] MEDS: PANTOprazole 40 MG TAB PO SCH (08:29)
[2021-09-07] MEDS: FLUTICASONE/VILANTEROL 200/25MCG 14 PUFFS/INHALER INH SCH (08:30)
[2021-09-07] MEDS: PREGABALIN 75 MG CAP PO SCH (08:30)
[2021-09-07] MEDS: DICLOFENAC SOD 1% GEL 100 GM TUBE EXT SCH ×4 (08:30→19:39)
[2021-09-07] MEDS ORDERED: MINERAL OIL 30 ML UDC PO ONE (08:57)
[2021-09-07 11:37] LABS: Basophils # (auto) 0.05 K/uL (0-0.2); Basophils % (auto) 0.6 %; Eosinophils # (auto) 0.26 K/uL (0-0.5); Hemoglobin 10.2 g/dL (14.0-18.0); Immature Granulocytes # (auto) 0.43 K/uL (0.00-0.02); Immature Granulocytes % (auto) 4.9 %; Lymphocytes # (auto) 1.13 K/uL (1.2-3.4); Lymphocytes % (auto) 12.9 %; Mean Corpuscular Hemoglobin 31.9 pg (25-34); Mean Corpuscular Hgb Conc 31.9 g/dL (32-36); Monocytes % (auto) 14.8 %; Neutrophils # (auto) 5.59 K/uL (1.4-6.5); Neutrophils % (auto) 63.8 %; Nucleated RBC # (auto) 0.03 K/uL (0-0); Nucleated RBC % (auto) 0.4 %; Platelet Count 163 K/uL (130-400); RDW Coefficient of Variation 15.6 % (11.5-14.5); RDW Standard Deviation 56.6 fL (36.4-46.3); White Blood Count 8.76 K/uL (4.8-10.8)
--- NOTE | 2021-09-07 11:45 | Surgery Progress Note ---
Date of Service September 07, 2021 Assessment & Plan Admission and Anticipated Discharge Date Admission Date: September 04, 2021 Supervising Physician Co-Signing Physician Notes Patient has very mildly dilated small bowel on his CAT scan and does not have any nausea or vomiting He apparently developed some abdominal pain above the stoma-his CT showed some evidence of fecal matter He does have significant output from his ileostomy. He was very high risk at his initial operation and will be extremely high risk For additional surgery. We will attempt to obtain a CAT scan with contrast and try to assess the transit of the contrast Also attempt to give him clear liquids and advance his diet Would be very reluctant to operate unless absolutely necessary Be sure his electrolytes including mag and Phos are in order 09/07/2021 11: 44AM SBO resolved regular diet, will F/U, Subjective seen just after HD today where he had uneventful tx w/ 2L UF; no sob; abd pain controlled for now > tolerating regular diet 09/07/2021 11:[address] Leone F/U SBO, pt is doing fine, passed gas and BM in colostomy bag, no abdominal pain, no nausea, no vomiting, Physical Exam Constitutional: WD/WN, vitals as above Eyes: PERRL, conjunctivae normal, anicteric sclerae Neck: trachea midline, no thyromegaly Respiratory: normal respiratory effort, lungs clear to auscultation Cardiovascular: RRR, no murmur, no edema Gastrointestinal (Abdomen): soft, NT, ND colostomy is working well, some gas and stool in the bag, Musculoskeletal: no cyanosis or clubbing, extremities motor strength 5/5 Neurologic: patellar DTR's 2+ bilat, sensation intact Psychiatric: A+Ox3, euthymic affect Results & Data ([facility]) Vital Signs (Past 12 Hours) Vital Signs Temp Pulse Resp BP Pulse Ox 09/07/21 08:29 36.9 C 67 18 157/69 H 97 Laboratory Results Abnormal lab results 09/07/21 Range/Units 11:28 RBC 3.20 L (4.7-6.1) M/uL Hgb 10.2 L (14.0-18.0) g/dL Hct 32.0 L (42-52) % MCHC 31.9 L (32-36) g/dL RDW Std Deviation 56.6 H (36.4-46.3) fL RDW Coeff of Jolanta 15.6 H (11.5-14.5) % Lymph # (Auto) 1.13 L (1.2-3.4) K/uL [place] # (Auto) 1.30 H (0.11-0.59) K/uL Immature Gran # (Auto) 0.43 H (0.00-0.02) K/uL Absolute Nucleated RBC 0.03 H (0-0) K/uL
[2021-09-07 12:27] LABS: BUN Creatinine Ratio 3.3 (10-20); Calcium 8.7 mg/dl (8.5-10.1); Creatinine Clr Calc Pharmacy 10.8 ml/min; Est GFR (African American) 7.3 ml/min; Est GFR (Non-African American) 6.3 ml/min; Potassium 3.5 mmol/L (3.5-5.1)
[2021-09-07] MEDS: CLOPIDOGREL BISULFATE 75 MG TAB PO SCH (12:28)
--- NOTE | 2021-09-07 17:07 | Hospitalist Progress Note ---
Date of Service September 07, 2021 Assessment & Plan (1) Small bowel obstruction: Plan: Patient with ileostomy in place since 2019, recent admission for pseudo- obstruction of ileostomy, fecal impaction presenting with recurrent abdominal pain, distention. CT suggestive of recurrent SBO. Dispo: Patient recommended for home with 24-hour care and outpatient rehab versus inpatient rehab by PT, inpatient rehab by OT. Discussed with patient, who declines rehab. He feels he would like to be home at this time and approaching the holidays, understands he is at risk of falling/injury/readmission. He reports he is 24/7 care at home with home PT providers that see him several times a week and he will continue to engage these. Discussed risk/benefits, unsure decision making will return home to 24/7 care. Patient unable to arrange transport for discharge evening 09/07, will have transport available with caregivers at home 09/08. SBO -Admit to medical -Patient initially improved with adequate output to ostomy, and moved to limited clears. Developed increased discomfort in abdomen and some belching/bloating was made n.p.o. with sips and chips. Slow progression of diet after well tolerated. CT: Suggestive of recurrent SBO. Compared to previous examination, there has been interval recurrence of mild fecal impaction of the distal ileum and within the ileostomy as it extends through the subcutaneous fat. There is again mild pseudoobstruction of the more proximal small bowel with mild to moderate dilatation and fluid levels present. The stomach is also distended with liquid and food stuff. No other acute intra-abdominal abnormality with chronic changes again noted above. -Ostomy management Right upper quadrant pain around ostomy improved -Surgery consulted. High risk at initial operation, and continues to be high risk for additional surgery. Will attempt CAT scan with contrast to try to assess the transit of contrast, and attempt to advance with clear liquids. Optimize mag/Phos. Appreciate recommendations. -Zofran as needed -Pain control as needed, pain tolerable to patient at time of assessment -GI Consulted. No no gallstone appreciated on final read. Signed off Tolerating low fiber diet well per surgery (2) CAD (coronary artery disease): Plan: Chronic. Stable -Continue ASA -Continue Plavix -Continue Atorvastatin (3) Atrial fibrillation: Plan: Rate controlled -Continue Amiodarone (4) ESRD (end stage renal disease) on dialysis: Plan: ESRD on dialysis Nephrology consulted No emergent decompensation Patient normally on Thursday dialysis -Continue Nephrocaps, PhosLo no overt fluid overload on physical exam (5) Hypothyroidism: Plan: Chronic. -Continue Synthroid 88 mcg daily (6) Hyperlipidemia: Plan: Chronic -Continue Atorvastatin (7) COPD (chronic obstructive pulmonary disease): Plan: Chronic. Stable -Continue supplemental O2 at home level -Continue Breo Ellipta DuoNebs (8) GERD (gastroesophageal reflux disease): Plan: Chronic. Stable -Continue Pepcid and Protonix (9) Gallstone: Plan: Noted on CT Abdomen. No abnormality in LFTs -GI consultation appreciated. Stone not mentioned on final read. See GI note. Plan: Code: Full code Disposition: Medical surgical FEN GI: Dialysis renal clears Admission and Anticipated Discharge Date Admission Date: September 04, 2021 Subjective Patient feels well at bedside. Symptoms resolved, seen by surgery who feel he is progressing well. He denies pain in his ostomy today. Tolerating low fiber diet well. No other symptoms. Patient recommended for home with 24-hour care and outpatient rehab versus inpatient rehab by PT, inpatient rehab by OT. D iscussed with patient, who declines rehab. He feels he would like to be home at this time and approaching the holidays, understands he is at risk of falling/injury/readmission. He reports he is 24/7 care at home with home PT providers that see him several times a week and he will continue to engage these. Discussed risk/benefits, unsure decision making will return home to 24/7 care Review of Systems Review of Systems: All systems reviewed & are unremarkable except as noted in Subjective Physical Exam Physical Exam: General: A&Ox3. NAD. Cooperative. HEENT: Atraumatic, normocephalic. Pupils equal and reactive to light and accom modation. Visual acuity and hearing grossly intact. Pulm: CTAB A&P. -wheezes, -rales, -rhonchi. Symmetrical chest rise. No increase work of breathing. No respiratory distress. Cardiac: RRR, -mrg. Radial pulses intact and symmetrical. Abdominal: Ostomy in place draining brown material. Gas present. No tenderness to palpation at right upper/lower quadrant around ostomy without epigastric or left quadrant tenderness, no rebound tenderness, no peritoneal signs. Bowel sounds intact. Extremity: Left upper forearm with medial slight contusion, no firmness. Left upper arm with slight bullae and petechiae at prior site of IV improved and under gel dressing. no erythema/warmth/tenderness/purulence. Right arm with fistula intact. Distal pulse intact and cap refill in fingertips intact. Results & Data Results & Data ([facility]) Vital Signs (Past 12 Hours) Vital Signs Temp Pulse Resp BP Pulse Ox 09/07/21 16:42 36.5 C 61 18 164/77 H 98 09/07/21 08:29 36.9 C 67 18 157/69 H 97 PG Care Time/CCT Total # of Minutes Spent Total Time Spent with Patient: Total time spent is greater than 50% in coordination of care (as documented) at patient's floor/unit and/or counseling patient: Coding Level of Care Code 34786 Subseq Hosp Care Lvl 1 Diagnoses Small bowel obstruction K56.609 CAD (coronary artery disease) I25.10 Coronary Disease-Associated Artery/Lesion type: [place] artery [place] vs. transplanted heart: [place] heart Associated angina: without angina Atrial fibrillation I48.91 ESRD (end stage renal disease) on dialysis N18.6; Z99.2 Hypothyroidism E03.9 Hyperlipidemia E78.5 COPD (chronic obstructive pulmonary disease) J44.9 GERD (gastroesophageal reflux disease) K21.9 Gallstone K80.20 (1) CAD (coronary artery disease) Coronary Disease-Associated Artery/Lesion type: [place] artery [place] vs. transplanted heart: [place] heart Associated angina: without angina Qualified Code(s): I25.10 - Atherosclerotic heart disease of [place] coronary artery without angina pectoris
--- NOTE | 2021-09-07 18:03 | Discharge Summary ---
Date of Service September 08, 2021 Admission HPI Per Admitting Provider Anders Perdue is a 76yo male with history of ESRD on HD w M/W/F, ischemic colitis s/p subtotal colectomy with ileostomy placement (04/2019), chronic hypoxic respiratory failure on 2L home O2, CAD, COPD, CHF - patient was recently admitted to [facility] from 08/29 - 08/31 for abdominal pain and decreased output from his ostomy. Patient found to have a pseudo-obstruction of the small intestines due to a fecal impaction at the distal ileum extending into the subcutaneous fat. A yoon was placed in the stoma and Go-Lytely was administered. Patient was also evaluated by General Surgery. He was treated with Unasyn, bowel rest and pain medications. Patient's obstruction resolved. He was discharged home in improved condition on 08/31/21. He returns with recurrence of abdominal pain and distention as well as decreased output from his ostomy. The pain started yesterday afternoon (09/01/21). Patient has had diminished output since around noon. No additional complaints at this time - he denies fever, chills, cough, SOB. Denies nausea at present, no vomiting. No additional complaints at this time. ER Course: NSS x 500mL, Zofran, Dilaudid Admission Exam Per Admitting Provider eneral: patient resting comfortably, NAD, non-toxic in appearance, AA&O x 4 Skin: warm, dry, flaking, no infection HEENT: NC/AT, PERRL, EOMI, anicteric sclera, conjunctiva without injection, external ear normal to inspection and nontender, nares patent, moist mucus membranes, dentition intact, no oropharyngeal lesions, neck supple, trachea midline, no LAD, no thyromegaly, no JVD Heart: +S1/S2, regular, 2/6 FIDELIA at LSB Lungs: equal air entry bilaterally, no rales/rhonchi/wheezes Abd: +BS, soft, mildly tender with deep palpation, no rebound/guarding;/peritoneal signs. Ostomy in place with pink stoma, small amount of stool in bag with gas Ext: warm, diminished pulses, s/p right TMA, RUE AV fistula with palpable thrill Neuro: nonfocal, patient AA&O x 4, speech intact, no facial droop, moving all extremities on command with equal strength 5/5 Principal Diagnosis Partial SBO Discharge Data Allergies Allergy/AdvReac Type Severity Reaction Status Date / Time oxycodone AdvReac Severe DELIRIUM Verified 09/02/21 01:52 tramadol AdvReac Severe dizziness;a Verified 09/02/21 01:52 nxiety;sob gabapentin AdvReac Intermediate Nausea Verified 09/02/21 01:52 Consultations 09/02/21 05:01 ED Decision to Admit Stat 09/02/21 05:33 Consult Nephrology Routine 09/02/21 09:34 Consult Gastroenterology Routine 09/05/21 12:35 Consult General Surgery Routine Ordered Studies 09/02/21 01:32 CT abd pelvis IV con only Urgent 09/05/21 14:19 CT abd pelvis oral con only Urgent Hospital Course (1) Small bowel obstruction: Patient with ileostomy in place since 2019, recent admission for pseudo- obstruction of ileostomy, fecal impaction presenting with recurrent abdominal pain, distention. CT suggestive of recurrent SBO. Dispo: Patient recommended for home with 24-hour care and outpatient rehab versus inpatient rehab by PT, inpatient rehab by OT. Discussed with patient, who declines rehab. He feels he would like to be home at this time and approaching the holidays, understands he is at risk of falling/injury/readmission. He reports he is 24/7 care at home with home PT providers that see him several times a week and he will continue to engage these. Discussed risk/benefits, on shared decision making will return home to 24/7 care. SBO -Admit to medical -Patient initially improved with adequate output to ostomy, and moved to limited clears. Developed increased discomfort in abdomen and some belching/bloating was made n.p.o. with sips and chips. Slow progression of diet after well tolerated. CT: Suggestive of recurrent SBO. Compared to previous examination, there has been interval recurrence of mild fecal impaction of the distal ileum and within the ileostomy as it extends through the subcutaneous fat. There is again mild pseudoobstruction of the more proximal small bowel with mild to moderate dilatation and fluid levels present. The stomach is also distended with liquid and food stuff. No other acute intra-abdominal abnormality with chronic changes again noted above. -Ostomy management Right upper quadrant pain around ostomy improved -Surgery consulted. High risk at initial operation, and continues to be high r isk for additional surgery. Will attempt CAT scan with contrast to try to assess the transit of contrast, and attempt to advance with clear liquids. Optimize mag/Phos. Appreciate recommendations. -Zofran as needed -Pain control as needed, pain tolerable to patient at time of assessment -GI Consulted. No no gallstone appreciated on final read. Signed off Tolerating low fiber diet well per surgery (2) CAD (coronary artery disease): Chronic. Stable -Continue ASA -Continue Plavix -Continue Atorvastatin (3) Atrial fibrillation: Rate controlled -Continue Amiodarone (4) ESRD (end stage renal disease) on dialysis: ESRD on dialysis Nephrology consulted No emergent decompensation Patient normally on Thursday dialysis -Continue Nephrocaps, PhosLo no overt fluid overload on physical exam (5) Hypothyroidism: Chronic. -Continue Synthroid 88 mcg daily (6) Hyperlipidemia: Chronic -Continue Atorvastatin (7) COPD (chronic obstructive pulmonary disease): Chronic. Stable -Continue supplemental O2 at home level -Continue Breo Ellipta DuoNebs (8) GERD (gastroesophageal reflux disease): Chronic. Stable -Continue Pepcid and Protonix (9) Gallstone: Noted on CT Abdomen. No abnormality in LFTs -GI consultation appreciated. Stone not mentioned on final read. See GI note. Code: Full code Disposition: Medical surgical FEN GI: Dialysis renal clears Total Time Total Time Spent Total Time Spent (In Minutes): Time spend day of discharge 15 minutes including pt care, documentation, review or labs/images. Discharge Plan Discharge Items Patient Disposition: Home - Self-Care Reason For Visit: ABDOMINAL PAIN Discharge Diagnosis: Partial small bowel obstruction Activity: Per Instructions section Non-emergency contact: Primary Care Provider Call non-emergency contact if: you have any medication questions, your symptoms worsen, your pain is worsening, your pain is concerning for you and you have a fever Follow-up/Referrals: Emil Lazcano MD [Primary Care Provider] - 09/16/21 10:15 am (With Brooke Andrade PA-C) Diet: Low Fiber Addtl Attending Provider Instructions: You are seen in the hospital for concern of a partial small bowel obstruction. Your symptoms clinically improved with bowel rest and nonoperative treatment. Your case was discussed with surgery, due to your very high risk at initial surgery it is highly likely that additional surgery/revision of her ostomy would worsen symptoms. Is recommended to only pursue surgical intervention in the future if absolutely necessary. Your symptoms did improve with medical treatment, and a CAT scan with contrast showed normal flow of contents through your gastrointestinal tract. You are discharged back home, please resume a low fiber diet when you return home. If you have increased pain in the future you may need to decrease to a more liquid/broth diet temporarily, if you have recurrent symptoms please contact your primary care provider or general surgeon's office for recommendations. You have not had medication changes made at this time. Inpatient rehab was discussed with you. You were recommended for home with 24/7 care vs rehab by PT and rehab by OT. You would benefit from physical therapy, and this would likely prevent falls and injuries in the future. You declined this at discharged, noted you had 24 hour care at home with physical therapy in home several times a week. On risks/benefits discussion, you were discharged home. When you return home please call Dr. Lazcano's office at [phone] to schedule a follow-up appointment. You should be seen within 1 week. If you need to cancel or need to change this appointment, please call the provider's office. If you develop any new or worsening symptoms including fever, chills, sweats, chest pain, chest pressure, difficulty breathing, uncontrolled nausea/vomiting, rash, wheezing, passing out or nearly passing out, bleeding, black/bloody bowel movements, or other new or concerning symptoms please call your primary care physician at [phone], or call 911 for re-evaluation in the emergency department if you are very concerned. Pending Studies at Discharge: No Stand-Alone Forms: My [facility] [place], Smoking Cessation Medications and DC Order Prescriptions: Continued atorvastatin 40 mg tablet 40 mg PO HS Qty: 90 RF: 3 Breo Ellipta 200-25 mcg/dose blister with device 1 inh INHALATION QAM Qty: 84 RF: 3 levothyroxine 88 mcg tablet 88 mcg PO DAILY Qty: 90 RF: 3 paroxetine HCl 20 mg tablet 20 mg PO HS Qty: 90 RF: 3 Spiriva with HandiHaler 18 mcg capsule, w/inhalation device 1 cap INHALATION QAM Qty: 1 RF: 4 Lyrica 75 mg capsule 75 mg PO QAM Qty: 30 RF: 3 pantoprazole 40 mg tablet,delayed release (DR/EC) 40 mg PO QAM Qty: 90 RF: 3 amiodarone 200 mg tablet 200 mg PO Q OTHER DAY Qty: 14 RF: 5 temazepam 15 mg capsule 15 mg PO HS PRN (Reason: Sleep) Qty: 60 RF: 0 aspirin [Aspirin Low Dose] 81 mg Tablet,Delayed Release (Dr/Ec) 81 mg PO DAILY RF: 0 Triphrocaps 1 mg capsule 1 mg PO DAILY RF: 0 calcium acetate(phosphat bind) 667 mg Capsule 667 mg PO TIDM RF: 0 docusate sodium 100 mg capsule 100 mg PO HS RF: 0 sennosides [Senokot] 8.6 mg Tablet 8.6 mg PO DAILY PRN (Reason: Constipation) RF: 0 ipratropium-albuterol 0.5 mg-3 mg(2.5 mg base)/3 mL Solution For Nebulization 3 ml INHALATION Q4H PRN (Reason: Shortness Of Breath) RF: 0 lidocaine [Aspercreme (lidocaine HCl)] 4 % Adhesive Patch,Medicated 1 patch TOPICAL DAILY PRN (Reason: Pain) RF: 0 ropinirole 0.25 mg Tablet 0.25 mg PO HS RF: 0 nitroglycerin [Nitrostat] 0.4 mg Tablet, Sublingual 0.4 mg sublingual DIRECTED PRN (Reason: Chest Pain) RF: 0 alum-mag hydroxide-simeth 200-200-20 mg/5 mL Suspension 30 ml PO DIRECTED PRN (Reason: Indigestion) RF: 0 famotidine 20 mg tablet 20 mg PO 3XWK RF: 0 diclofenac sodium [Voltaren Arthritis Pain] 1 % gel 2 g topical QID Qty: 100 RF: 0 acetaminophen 325 mg capsule 650 mg PO QID PRN (Reason: pain) Qty: 30 RF: 0 clopidogrel 75 mg tablet 75 mg PO QDL RF: 0 (DME) Oxygen Home Liters Per Minute See Rx Instructions .ROUTE .MEDSUPPLY Qty: 1 RF: 0 Discharge Orders: Discharge Order (Routine); Ordered 09/08/21 Ordered By: Mingo Grider/Other Patient Handouts: Ileostomy: Caring For Your Stoma, Ileostomy: Changing Your Pouch, Ileostomy Dealing with a Food Blockage Admission Data Admit Date/Time: 09/04/21 15:30 Attending Provider: Mingo Worthington Provider: Hawa Mcnamara Primary Care Provider: Emil Lazcano Other Providers: Christina Landrum ; Hawa Mcnamara ; Dyana Vaughan ; Sj Restrepo Coding Level of Care Code D/C DAY MANAGEMENT <30 MINS Diagnoses Small bowel obstruction K56.609 CAD (coronary artery disease) I25.10 Associated angina: without angina Coronary Disease-Associated Artery/Lesion type: [place] artery [place] vs. transplanted heart: [place] heart Atrial fibrillation I48.91 ESRD (end stage renal disease) on dialysis N18.6; Z99.2 Hypothyroidism E03.9 Hyperlipidemia E78.5 COPD (chronic obstructive pulmonary disease) J44.9 GERD (gastroesophageal reflux disease) K21.9 Gallstone K80.20
[2021-09-07] MEDS: rOPINIRole HCL 0.25 MG TABLET PO SCH (19:39)
[2021-09-07] MEDS: PARoxetine HCL 20 MG TAB PO SCH (19:39)
[2021-09-07] MEDS: ATORVASTATIN 40 MG TAB PO SCH (19:40)
[2021-09-07] MEDS: DOCUSATE SODIUM 100 MG CAP PO SCH (19:40)
[2021-09-07 23:40] VITALS: TEMP 98.1
[2021-09-07] MEDS: TEMAZEPAM 15 MG CAPSULE PO PRN (23:40)
[2021-09-08] MEDS: LEVOTHYROXINE SODIUM 88 MCG TABLET PO SCH (05:57)
[2021-09-08 08:08] VITALS: BP 158/67; PULSE 66; O2SAT 93
[2021-09-08] MEDS: FLUTICASONE/VILANTEROL 200/25MCG 14 PUFFS/INHALER INH SCH (09:10)
[2021-09-08] MEDS: ASPIRIN 81 MG ECTAB PO SCH (09:10)
[2021-09-08] MEDS: CALCIUM ACETATE 667 MG CAP/TAB PO SCH ×2 (09:11→12:48)
[2021-09-08] MEDS: NEPHROCAPS PO SCH (09:11)
[2021-09-08] MEDS: PANTOprazole 40 MG TAB PO SCH (09:11)
[2021-09-08] MEDS: SENNOSIDES 8.8 MG/5 ML UDC PO SCH (09:12)
[2021-09-08] MEDS: UMECLIDINIUM BROMIDE 62.5MCG/BLISTER 7 PUFFS/INHALER INH SCH (09:12)
[2021-09-08] MEDS: PREGABALIN 75 MG CAP PO SCH (09:14)
[2021-09-08] MEDS: DICLOFENAC SOD 1% GEL 100 GM TUBE EXT SCH ×2 (09:15→12:49)
[2021-09-08 09:43] LABS: Basophils # (auto) 0.02 K/uL (0-0.2); Basophils % (auto) 0.2 %; Eosinophils # (auto) 0.34 K/uL (0-0.5); Eosinophils % (auto) 3.2 %; Hematocrit (blood only) 31.9 % (42-52); Hemoglobin 10.2 g/dL (14.0-18.0); Immature Granulocytes # (auto) 0.38 K/uL (0.00-0.02); Immature Granulocytes % (auto) 3.6 %; Lymphocytes # (auto) 1.15 K/uL (1.2-3.4); Mean Corpuscular Hemoglobin 32.1 pg (25-34); Mean Corpuscular Volume 100.3 fL (80-100); Mean Platelet Volume 8.9 fL (7.4-10.4); Monocytes % (auto) 11.5 %; Neutrophils # (auto) 7.38 K/uL (1.4-6.5); Neutrophils % (auto) 70.5 %; Nucleated RBC # (auto) 0.03 K/uL (0-0); Nucleated RBC % (auto) 0.3 %; Platelet Count 152 K/uL (130-400); RDW Coefficient of Variation 15.7 % (11.5-14.5); Red Blood Count 3.18 M/uL (4.7-6.1); White Blood Count 10.47 K/uL (4.8-10.8)
[2021-09-08 10:11] LABS: BUN Creatinine Ratio 4.2 (10-20); Calcium 9.1 mg/dl (8.5-10.1); Creatinine Clr Calc Pharmacy 8.4 ml/min; Est GFR (African American) 5.4 ml/min; Est GFR (Non-African American) 4.6 ml/min; Potassium 3.5 mmol/L (3.5-5.1)
[2021-09-08] MEDS: CLOPIDOGREL BISULFATE 75 MG TAB PO SCH (12:48)
== END 2021-09-08 14:07 | disposition home or self-care (01) | DRG 388 ==
LOC: SUATTDRO → ED 01:00 → 3N 01:00 → SUATTDRO 05:33 → 3N 08:41

== ENCOUNTER 2021-12-01 10:59 | Inpatient (IN) ==
[2021-12-01] MEDS ORDERED: MoRPHine SULFATE 4 MG/ML 1 ML CARP\\VIAL IV PRN (11:14)
[2021-12-01] MEDS ORDERED: ONDANSETRON INJ 2 MG/ML 2 ML VIAL IV STA (11:14)
--- NOTE | 2021-12-01 11:19 | Emergency Department Note ---
Impression & Plan Discitis, Spinal stenosis, ESRD (end stage renal disease) on dialysis ED Provider Note NAME: RAMA AYERS AGE: 76 SEX: M : 1945 ARRIVES VIA: Ambulance INFORMANT: Patient, ED PROVIDER(S): Emil Chu DO CHIEF COMPLAINT: Back pain HPI: The patient is a 76-year-old male who presented to the emergency department by ambulance for an evaluation of low back pain. The patient states he is at ongoing back pain for approximately 3 to 4 weeks. He has had no trauma. He does have a history of back pain in the past. He is not seen his family doctor for the symptoms. He does have a history of dialysis and has been attending dialysis. His last treatment was on Thursday he had a full run. He is also noticed some shortness of breath. He denies having any fever. He denies having any dysuria or frequency. The pain he states is mostly in his buttocks as well as into his lower back. He states he also has pain that goes down both legs. He denies having any saddle anesthesia. He notices no constipation or difficul ty urinating but the patient has a history of end-stage renal disease and does not normally make urine and also has a colostomy. The patient does have some lower extremity swelling which is not new. The patient has been trying [id number] medications as well as Voltaren cream with only minimal relief. ROS: See above HPI for pertinent positives & negatives. A total of 10 systems reviewed and were otherwise negative. PAST MEDICAL HISTORY: See Below PAST SURGICAL HISTORY: See Below FAMILY HISTORY: See Below SOCIAL HISTORY: See Below HOME MEDICATIONS: See Below ALLERGIES: See Below VITALS: See Below PHYSICAL EXAMINATION: GENERAL: Patient is awake alert in no acute distress patient is resting comfortably and showing no signs of anxiety EYES: The conjunctivae are clear. The pupils are round and reactive. EARS, NOSE, MOUTH AND THROAT: The nose is without any evidence of any deformity. Mucous membranes are moist. Tongue is midline. NECK: The neck is nontender and supple. RESPIRATORY: Diminished breath sounds are noted throughout. There were rales at both bases. There is no tachypnea or conversational dyspnea. CARDIOVASCULAR: Regular rate and rhythm noted there no murmurs rubs or gallops normal S1 normal S2. GASTROINTESTINAL: The abdomen is soft and mildly distended. There is no specific tenderness guarding or rigidity. BACK: Low lumbar tenderness was noted to palpation. There is no step-off. Range of motion elicits pain. MUSCULOSKELETAL/EXTREMITIES: There is no evidence of gross deformity full range of motion is noted in the hips and shoulders. SKIN: Chronic venous stasis changes were noted to both lower extremities. Skin was warm. NEUROLOGIC: Patient is awake alert and oriented x3. Strength was symmetric in both lower extremities. MEDICAL DECISION MAKING: The patient is a 76-year-old male who presented to the emergency department for an evaluation of back pain. The patient's had ongoing back pain for approximately 3 to 4 weeks. The patient's neurologic exam was difficult because of the amount of pain but he is able to lift each leg off the bed. He does have a lot of radicular symptoms especially posteriorly. He denied having any saddle anesthesia. The patient initially had CT which suggested an area that could be responsible for the patient's symptoms and could be related to an infection. For this reason MRI was obtained. The patient was treated with pain medication in the emergency department. He was also treated with IV fluids and IV antibiotics. He was reevaluated multiple times. I discussed the patient's laboratory and radiographic studies with him I also discussed his condition and his findings with his sister, Nidia. [facility] was consulted but they are unable to accept the patient at this time. For this reason I discussed his case with the on-call [facility] hospitalist. They have agreed to evaluate the patient for inpatient management at our facility continue management with IV antibiotics and then further evaluation by orthopedic spine when available. Triage Nursing notes reviewed. Prior medical records reviewed Vital Signs: reviewed and remarkable for elevated blood pressure Differential diagnosis: Musculoskeletal, disc herniation, fracture, metastatic disease, cord compression, discitis, sciatica, cauda equina, infection, aortic disease, renal colic, gastrointestinal, as well as other pathologies. ER treatment provided: See below Diagnostics interpreted by me: ECG: EKG was obtained in the emergency department. My interpretation is junctional rhythm at 60 bpm. PVCs were noted. Nonspecific ST segment abnormalities were also appreciated. LVH was suggested by voltage criteria. This was compared to a tracing from August 292020. There was no specific changes noted. Cardiac Monitoring: An order was placed for continuous cardiac monitoring. The monitor shows a rate of 70 bpm with sinus rhythm. Laboratory studies: As stated above and show below. Imaging studies: See below Consultation(s): I discussed this case with Dr. Chacon who is on-call for [facility] hospitalist group. They have agreed to evaluate the patient in the emergency department for further management and disposition. Past Med/Surg History Medical History AAA (abdominal aortic aneurysm) Anemia, chronic renal failure AV fistula right arm CAD (coronary artery disease) Chronic back pain Chronic GERD Chronic right-sided CHF (congestive heart failure) Chronic ulcer of great toe of left foot with fat layer exposed COPD (chronic obstructive pulmonary disease) CVA (cerebral vascular accident) "NO RESIDUAL EFFECTS" PER RECORDS Dependence on renal dialysis Depression Dermatitis Diastolic CHF DVT (deep venous thrombosis) Elevated troponin Encounter for central line placement GERD (gastroesophageal reflux disease) H/O: gout Hyperlipidemia Hypothyroidism Ileostomy in place 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 (Dr Sj Restrepo) Memory loss or impairment Myocardial infarct, old 2010 Necrosis of colon Orthostatic hypotension Oxygen dependent Peripheral vascular disease Skin ulcers of both feet Small bowel obstruction Valvular disease S/P MVR (2010); ?AVR PER RECORDS Vitamin D deficiency Surgical History Difficult intubation B/L Anteriogram, Right femoral to anterior tibial cadaver vein bypass= = Grade view 4, MAC 3 --> Glidescope #3, ETT 7.5 at [facility] H/O abdominal aortic aneurysm repair 2011 H/O [id number] bypass 2012 H/O mitral valve repair 2010; ?AVR PER RECORDS Hx of CABG S/P CABG X2 (DURING MVR) 2010 S/P AAA repair S/P ablation of atrial fibrillation S/P cholecystectomy S/P femoral-popliteal bypass surgery S/P MVR (mitral valve repair) Status post transmetatarsal amputation of right foot Family History Mother Essential hypertension Father , age 76 Myocardial infarction Denies family history of Colon cancer Ovarian cancer Prostate cancer Breast cancer Social History Smoking Status: Former smoker Tobacco Type: Cigarettes Years Smoked: 5; Second Hand Exposure: No; Hx Alcohol Use: No Hx Substance Use: No Preferred Language: French Communication Ability: Effective Visual Impairment: No Limitations Hearing Ability: Normal 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 Feels Safe at Home: Yes Childhood Exposure to Second-Hand Smoke: No Dental Care, Regularly: Yes Physical Activity Frequency: Other Physical Activity Frequency Comment: Physical activity limited by patients medical conditions Seatbelt Use: always Sunscreen Use: Yes Assistive Devices: Oxygen - Continuous Allergies Allergies Allergy/AdvReac Type Severity Reaction Status Date / Time oxycodone AdvReac Severe DELIRIUM Verified 09/02/21 01:52 tramadol AdvReac Severe dizziness;a Verified 09/02/21 01:52 nxiety;sob gabapentin AdvReac Intermediate Nausea Verified 09/02/21 01:52 Home Meds Home Medications Medication Instructions Recorded Confirmed calcium acetate(phosphat bind) 667 667 mg PO DAILY 08/23/18 12/01/21 mg capsule docusate sodium 100 mg capsule 100 mg PO 05/31/19 12/01/21 aspirin 81 mg tablet,delayed 81 mg PO DAILY 05/01/20 12/01/21 release (Aspirin Low Dose) vitamin B complex and vitamin C 1 mg PO DAILY 05/01/20 12/01/21 no.20-folic acid 1 mg capsule (Triphrocaps) aluminum-mag hydroxide-simethicone 30 ml PO DIRECTED PRN 04/08/21 12/01/21 200 mg-200 mg-20 mg/5 mL oral susp ipratropium 0.5 mg-albuterol 3 mg 3 ml INHALATION Q4H PRN 04/08/21 12/01/21 (2.5 mg base)/3 mL nebulization soln lidocaine 4 % topical patch 1 patch TOPICAL DAILY PRN 04/08/21 12/01/21 (Aspercreme (lidocaine)) nitroglycerin 0.4 mg sublingual 0.4 mg SUBLINGUAL DIRECTED PRN 04/08/21 12/01/21 tablet (Nitrostat) ropinirole 0.25 mg tablet 0.25 mg PO HS 04/08/21 12/01/21 sennosides 8.6 mg tablet (Senokot) 8.6 mg PO DAILY PRN 04/08/21 12/01/21 clopidogrel 75 mg tablet 75 mg PO QDL 05/31/21 12/01/21 Previous Rx's Medication Instructions Recorded atorvastatin 40 mg tablet 40 mg PO HS #90 tab 11/13/20 fluticasone furoate 200 1 inh INHALATION QAM #84 ea 11/23/20 mcg-vilanterol 25 mcg/dose inhalation powder (Breo Ellipta) levothyroxine 88 mcg tablet 88 mcg PO DAILY #90 tab 11/23/20 paroxetine HCl 20 mg tablet 20 mg PO HS #90 tab 01/21/21 tiotropium bromide 18 mcg capsule 1 cap INHALATION QAM #1 inh 03/27/21 with inhalation device (Spiriva with HandiHaler) acetaminophen 325 mg capsule 650 mg PO QID PRN #30 cap 04/13/21 diclofenac sodium 1 % topical gel 2 g TOPICAL QID #100 g 04/13/21 (Voltaren Arthritis Pain) amiodarone 200 mg tablet 200 mg PO Q OTHER DAY #14 tab 07/11/21 pantoprazole 40 mg tablet,delayed 40 mg PO QAM #90 tab 07/11/21 release temazepam 15 mg capsule 15 mg PO HS PRN #60 cap 09/17/21 pregabalin 75 mg capsule (Lyrica) 75 mg PO QAM #30 cap 10/15/21 famotidine 20 mg tablet 20 mg PO 3XWK #90 tab 11/05/21 Results & Data (ED) Vital Signs Vital Signs - 24 hr 12/01/21 10:59 12/01/21 11:34 12/01/21 13:02 Temperature 36.4 C L Temperature Source Oral Pulse Rate 71 Pulse Rate [Apical] 70 67 Respiratory Rate 14 20 17 Blood Pressure 155/67 H Blood Pressure [Left Arm] 121/60 131/66 Blood Pressure Mean 96 Blood Pressure Mean [Left Arm] 80 87 Pulse Oximetry 93 95 97 Oxygen Delivery Method Nasal Cannula Nasal Cannula Nasal Cannula Oxygen Flow Rate 2 2 2 Sepsis Recent Fever Within 48 Hours No Sepsis New/Unexplained Change in Mental Status No Sepsis Action Taken by Nursing No Action Required 12/01/21 14:35 Temperature Temperature Source Pulse Rate Pulse Rate [Apical] 70 Respiratory Rate 18 Blood Pressure Blood Pressure [Left Arm] 157/79 H Blood Pressure Mean Blood Pressure Mean [Left Arm] 105 Pulse Oximetry 100 Oxygen Delivery Method Nasal Cannula Oxygen Flow Rate 2 Sepsis Recent Fever Within 48 Hours Sepsis New/Unexplained Change in Mental Status Sepsis Action Taken by [facility] Medications Current Medication List: was personally reviewed by me Laboratory Data Attestation: I reviewed the patient's lab results. Result diagrams: 12/01/21 11:26 12/01/21 11:26 Lab Results 12/01/21 12/01/21 12/01/21 Range/Units 11:26 11:26 11:26 WBC 10.46 (4.8-10.8) K/uL RBC 3.66 L (4.7-6.1) M/uL Hgb 11.9 L (14.0-18.0) g/dL Hct 37.1 L (42-52) % MCV 101.4 H (80-100) fL MCH 32.5 (25-34) pg MCHC 32.1 (32-36) g/dL RDW Std Deviation 61.8 H (36.4-46.3) fL RDW Coeff of Jolanta 17.1 H (11.5-14.5) % Plt Count 132 (130-400) K/uL MPV 9.0 (7.4-10.4) fL Neutrophils % (Manual) 74.0 % Lymphocytes % (Manual) 13.9 % Monocytes % (Manual) 6.1 % Eosinophils % (Manual) 4.3 % Myelocytes % (Man) 1.7 % Neutrophils # (Manual) 7.74 H (1.4-6.5) K/uL Total Absolute Neuts 7.74 H (1.4-6.5) K/uL Lymphocytes # (Manual) 1.45 (1.2-3.4) K/uL Total Abs Lymphocytes 1.45 (1.2-3.4) K/uL Monocytes # (Manual) 0.64 H (0.11-0.59) K/uL Eosinophils # (Manual) 0.45 (0-0.5) K/uL Myelocytes # (Manual) 0.18 H (0-0) K/uL ESR (0-20) mm/hr PT 10.7 (9.0-12.0) Seconds INR 1.1 (0.9-1.1) APTT 23.9 (21.0-31.0) Seconds PTT Ratio 0.9 Sodium 134 L (136-145) mmol/L Potassium 4.0 (3.5-5.1) mmol/L Chloride 96 L (98-107) mmol/L Carbon Dioxide 27 (21-32) mmol/L Anion Gap 11 (3-11) BUN 44 H (6-23) mg/dl Creatinine 9.29 H* (0.6-1.4) mg/dl Est Cr Clr Drug Dosing 8.9 ml/min Est GFR ( Amer) 5.7 ml/min Est GFR (Non-Af Amer) 4.9 ml/min BUN/Creatinine Ratio 4.7 L (10-20) Glucose 106 H (70-99(Fasting)) mg/dl Calcium 9.4 (8.5-10.1) mg/dl Total Bilirubin 0.6 (0.2-1.0) mg/dl AST 21 (13-39) U/L ALT 20 (7-52) U/L Alkaline Phosphatase 143 H (34-104) U/L Troponin I 0.07 H* (0-0.04) ng/ml C-Reactive Protein (0-0.5) mg/dl Total Protein 7.0 (6.0-8.3) gm/dl Albumin 4.1 (3.4-5.0) gm/dl Globulin 2.9 (2.5-4.0) gm/dl Albumin/Globulin Ratio 1.4 (0.9-2) Lipase 70 (11-82) U/L Procalcitonin (0-0.5) ng/ml 12/01/21 12/01/21 12/01/21 Range/Units 11:26 11:26 11:26 WBC (4.8-10.8) K/uL RBC (4.7-6.1) M/uL Hgb (14.0-18.0) g/dL Hct (42-52) % MCV (80-100) fL MCH (25-34) pg MCHC (32-36) g/dL RDW Std Deviation (36.4-46.3) fL RDW Coeff of Jolanta (11.5-14.5) % Plt Count (130-400) K/uL MPV (7.4-10.4) fL Neutrophils % (Manual) % Lymphocytes % (Manual) % Monocytes % (Manual) % Eosinophils % (Manual) % Myelocytes % (Man) % Neutrophils # (Manual) (1.4-6.5) K/uL Total Absolute Neuts (1.4-6.5) K/uL Lymphocytes # (Manual) (1.2-3.4) K/uL Total Abs Lymphocytes (1.2-3.4) K/uL Monocytes # (Manual) (0.11-0.59) K/uL Eosinophils # (Manual) (0-0.5) K/uL Myelocytes # (Manual) (0-0) K/uL ESR 28 H (0-20) mm/hr PT (9.0-12.0) Seconds INR (0.9-1.1) APTT (21.0-31.0) Seconds PTT Ratio Sodium (136-145) mmol/L Potassium (3.5-5.1) mmol/L Chloride (98-107) mmol/L Carbon Dioxide (21-32) mmol/L Anion Gap (3-11) BUN (6-23) mg/dl Creatinine (0.6-1.4) mg/dl Est Cr Clr Drug Dosing ml/min Est GFR ( Amer) ml/min Est GFR (Non-Af Amer) ml/min BUN/Creatinine Ratio (10-20) Glucose (70-99(Fasting)) mg/dl Calcium (8.5-10.1) mg/dl Total Bilirubin (0.2-1.0) mg/dl AST (13-39) U/L ALT (7-52) U/L Alkaline Phosphatase (34-104) U/L Troponin I (0-0.04) ng/ml C-Reactive Protein 1.09 H (0-0.5) mg/dl Total Protein (6.0-8.3) gm/dl Albumin (3.4-5.0) gm/dl Globulin (2.5-4.0) gm/dl Albumin/Globulin Ratio (0.9-2) Lipase (11-82) U/L Procalcitonin 0.33 (0-0.5) ng/ml Administered Medications Morphine Sulfate (Morphine Sulfate 4 Mg/Ml 1 Ml Carp\\Vial) 4 mg IV Q15M PRN PRN Reason: Pain Stop: 12/15/21 11:13 Last Admin: 12/01/21 11:26 Dose: 4 mg Documented by: [id number] Discontinued Medications Ondansetron HCl (Ondansetron Inj 2 Mg/Ml 2 Ml Vial) 4 mg IV NOW STA Stop: 12/01/21 11:15 Last Admin: 12/01/21 11:26 Dose: 4 mg Documented by: [id number] Imaging Data Radiologist's Impression: Abdomen/Pelvis CT 12/01/21 11:14 CT abd pelvis wo con CLINICAL HISTORY: back pain COMPARISON STUDY: 09/05/2021 CT DOSE: 1012.79 mGy.cm TECHNIQUE: Standard CT of the Abdomen and Pelvis was performed without IV contrast. The patient did not receive oral contrast. A dose lowering technique was utilized adhering to the principles of ALARA. FINDINGS: Lung base: There is again chronic pleural thickening at the right lung base with scarring present. The lung bases are otherwise clear. There is again mild cardiomegaly with coronary artery calcification. Abdominal cavity: There is no evidence for abdominal mass, adenopathy or ascites. Liver: The liver is homogeneous in attenuation on these limited noncontrast images.. Spleen: The spleen is homogeneous in attenuation on these limited noncontrast images. Pancreas: The pancreas is homogeneous in attenuation on these limited non contrast images. Gall Bladder: Surgical clips are again present. Adrenal glands: The adrenal glands are normal in size and attenuation on these limited noncontrast images. Kidneys: There is again bilateral renal atrophy and bilateral renal cysts present. Extensive renal vascular calcification is present. There is no evidence for gross renal mass, calculus or hydronephrosis bilaterally. Bowel: There is again a right lower quadrant ileostomy. There is no evidence for bowel loop dilatation or obstruction. There is no evidence for mass lesion. There are no inflammatory changes present. There is no evidence for free air. Bladder: There is no evidence for focal bladder wall thickening, calculus or diverticulum. : There is no evidence for pelvic mass or adenopathy. Vasculature: There is an aortobiiliac graft in place. Atherosclerotic calcification is present. Osseous structures: There is no acute osseous pathology. Compared to previous examination, there is again degenerative changes seen at L4-5 with sclerosis present involving both the adjacent endplates of L4 on L5. No paraspinal soft tissue swelling is present. There is evidence for lumbar canal stenosis. If the patient is febrile or has an elevated white blood cell count, discitis would be in the differential diagnosis. MRI of the lumbar spine would be recommended for further evaluation. IMPRESSION: 1. Compared to previous examination, there is no evidence for bowel loop dilatation or obstruction. 2. No other evidence for acute acute intra-abdominal or pelvic abnormality on these limited noncontrast images. 2. However, there is no evidence of any widening of the L4-5 disc space level with sclerosis involving the adjacent vertebral body endplates. No paraspinal soft tissue swelling is seen. There is lumbar canal stenosis at this level. If the patient is febrile or has an elevated white blood cell count, the presence of discitis cannot be excluded. If indicated clinically, follow-up MRI would be the study of choice for further evaluation. ACT 112: Negative or not required by law. Electronically signed by: Aydin Fine M.D. 12/01/2021 1:06 PM Chest X-Ray 12/01/21 11:15 XR chest 1V portable CLINICAL HISTORY: sob. History of smoking COMPARISON STUDY: 09/02/2021 TECHNIQUE: 1 view of the chest FINDINGS: Single frontal view of the chest demonstrates the heart to be enlarged status post previous cardiothoracic surgery. There is a decreased inspiratory effort with elevation of the hemidiaphragms and crowding of the bronchovascular markings at the lung bases and centrally. There is minimal right basilar atelectasis. The lungs are clear of alveolar opacities. There is no evidence for pleural effusion. There is no evidence for vascular congestion. There is no acu te osseous pathology. IMPRESSION: Decreased inspiration with minimal right basilar atelectasis. ACT 112: Negative or not required by law. Electronically signed by: Aydin Fine M.D. 12/01/2021 12:01 PM Lumbar Spine MRI 12/01/21 13:23 MR lumbar spine wo con CLINICAL HISTORY: Back pain. Abnormal appearance of L4-[address] Evaluate for discitis. COMPARISON: CT of the abdomen and pelvis from 12/01/2021 TECHNIQUE: Multiplanar multisequence images of the Lumbar Spine were performed without contrast. FINDINGS: There is old anterior wedge deformity of the superior endplate of L2. There is no evidence for an acute compression fracture. The heights of the remaining lumbar vertebral bodies are maintained. The vertebral bodies are in anatomic alignment. Discogenic changes are present involving vertebral body endplates at L4-5. Homogeneous marrow signal is seen without evidence for marrow edema or marrow replacement. There is no MR evidence for osteomyelitis. T12-L1: The disc space height is maintained. There are no focal disc protrusions or extrusions identified. The thecal sac and epidural fat are maintained. The neural foramen are patent bilaterally. There is no evidence for nerve root encroachment. The facet joints are within normal limits. L1-2: There is moderate disc space narrowing with disc/osteophyte complex present. There are no focal disc protrusions or extrusions identified. There is minimal flattening of thecal sac anteriorly. The neural foramen are patent bilaterally. There is no evidence for nerve root encroachment. Mild hypertrophic facet joint disease is seen bilaterally. L2-3: The disc space height is maintained. There are no focal disc protrusions or extrusions identified. There is moderate hypertrophic facet joint disease with thickening of ligamentum flavum bilaterally. This encroaches upon the thecal sac posterolaterally, bilaterally. This produces mild central canal stenosis. No significant foraminal stenosis or nerve root encroachment is seen. L3-4: The disc space height is maintained. There are no focal disc protrusions or extrusions identified. There is bulging annulus with flattening of thecal sac anteriorly. Additionally, there is moderate hypertrophic facet joint disease with thickening of ligamentum flavum present. The combination of these findings produce mild to moderate central canal stenosis. No significant foraminal stenosis is identified . No focal nerve root encroachment is seen. L4-5: The disc space height is maintained. There is diffuse increased signal seen within the disc on T2 and STIR weighted imaging with findings characteristic of chronic discitis. No paraspinal abscess is seen. No adjacent osteomyelitis is seen in the vertebral body endplates are sharply defined. There is encroachment on the thecal sac anteriorly. Additionally, moderate hypert rophic facet joint disease with thickening of ligamentum flavum is present bilaterally. A combination of these findings produce marked central canal stenosis. There is also bilateral foraminal stenosis. L5-S1: There is moderate to marked disc space narrowing present. There are no focal disc protrusions or extrusions identified. The thecal sac and epidural fat are maintained. The neural foramen are patent bilaterally. There is no evidence for nerve root encroachment. Moderate hypertrophic facet joint disease is present bilaterally. IMPRESSION: 1. Evidence for chronic discitis involving the L4-5 level with extensive increased signal seen in bulging of the disc into the spinal canal anteriorly. No paraspinal abscess is seen. Additionally, moderate hypertrophic facet joint disease with thickening of ligamentum flavum is present bilaterally. The combination of these findings produce marked central canal stenosis and moderate to marked bilateral foraminal stenosis. There is no evidence for associated osteomyelitis. 2. Degenerative disc and degenerative joint disease are also seen at multiple positions disc space levels with segmental spinal stenosis present. The emergency department was called directly with the results of this study. ACT 112: Negative or not required by law. Electronically signed by: Aydin Fine M.D. 12/01/2021 3:00 PM Discharge Plan Visit Data Chief Complaint: Back Injury/Pain Stated Complaint: R HIP/LEG PAIN ED Provider: Emil Chu Discharge Problem: Discitis, Spinal stenosis, ESRD (end stage renal disease) on dialysis Patient Disposition: Being Evaluated by Hospitalist Forms Stand Alone Forms: My [facility] [place] Prescriptions Prescriptions: No Action atorvastatin 40 mg tablet 40 mg PO HS Qty: 90 RF: 3 Breo Ellipta 200-25 mcg/dose blister with device 1 inh INHALATION QAM Qty: 84 RF: 3 levothyroxine 88 mcg tablet 88 mcg PO DAILY Qty: 90 RF: 3 paroxetine HCl 20 mg tablet 20 mg PO HS Qty: 90 RF: 3 Spiriva with HandiHaler 18 mcg capsule, w/inhalation device 1 cap INHALATION QAM Qty: 1 RF: 4 pantoprazole 40 mg tablet,delayed release (DR/EC) 40 mg PO QAM Qty: 90 RF: 3 amiodarone 200 mg tablet 200 mg PO Q OTHER DAY Qty: 14 RF: 5 Lyrica 75 mg capsule 75 mg PO QAM Qty: 30 RF: 3 famotidine 20 mg tablet 20 mg PO 3XWK Qty: 90 RF: 3 temazepam 15 mg capsule 15 mg PO HS PRN (Reason: Sleep) Qty: 60 RF: 0 aspirin [Aspirin Low Dose] 81 mg Tablet,Delayed Release (Dr/Ec) 81 mg PO DAILY RF: 0 Triphrocaps 1 mg capsule 1 mg PO DAILY RF: 0 calcium acetate(phosphat bind) 667 mg Capsule 667 mg PO DAILY RF: 0 docusate sodium 100 mg capsule 100 mg PO HS RF: 0 sennosides [Senokot] 8.6 mg Tablet 8.6 mg PO DAILY PRN (Reason: Constipation) RF: 0 ipratropium-albuterol 0.5 mg-3 mg(2.5 mg base)/3 mL Solution For Nebulization 3 ml INHALATION Q4H PRN (Reason: Shortness Of Breath) RF: 0 lidocaine [Aspercreme (lidocaine HCl)] 4 % Adhesive Patch,Medicated 1 patch TOPICAL DAILY PRN (Reason: Pain) RF: 0 ropinirole 0.25 mg Tablet 0.25 mg PO HS RF: 0 nitroglycerin [Nitrostat] 0.4 mg Tablet, Sublingual 0.4 mg sublingual DIRECTED PRN (Reason: Chest Pain) RF: 0 alum-mag hydroxide-simeth 200-200-20 mg/5 mL Suspension 30 ml PO DIRECTED PRN (Reason: Indigestion) RF: 0 diclofenac sodium [Voltaren Arthritis Pain] 1 % gel 2 g topical QID Qty: 100 RF: 0 acetaminophen 325 mg capsule 650 mg PO QID PRN (Reason: pain) Qty: 30 RF: 0 clopidogrel 75 mg tablet 75 mg PO QDL RF: 0 Referrals Referrals: ProEmil MD [Primary Care Provider] -
[2021-12-01 11:37] LABS: Hematocrit (blood only) 37.1 % (42-52); Hemoglobin 11.9 g/dL (14.0-18.0); Mean Corpuscular Hemoglobin 32.5 pg (25-34); Mean Corpuscular Hgb Conc 32.1 g/dL (32-36); Mean Corpuscular Volume 101.4 fL (80-100); Platelet Count 132 K/uL (130-400); RDW Coefficient of Variation 17.1 % (11.5-14.5); RDW Standard Deviation 61.8 fL (36.4-46.3); Red Blood Count 3.66 M/uL (4.7-6.1); White Blood Count 10.46 K/uL (4.8-10.8)
[2021-12-01 11:48] LABS: INR 1.1 (0.9-1.1); Partial Thromboplastin Ratio 0.9; Partial Thromboplastin Time 23.9 Seconds (21.0-31.0); Prothrombin Time 10.7 Seconds (9.0-12.0)
--- NOTE | 2021-12-01 12:02 | XRay Report ---
XR chest 1V portable CLINICAL HISTORY: sob. History of smoking COMPARISON STUDY: 09/02/2021 TECHNIQUE: 1 view of the chest FINDINGS: Single frontal view of the chest demonstrates the heart to be enlarged status post previous cardiotho racic surgery. There is a decreased inspiratory effort with elevation of the hemidiaphragms and crowd ing of the bronchovascular markings at the lung bases and centrally. There is minimal right basilar a telectasis. The lungs are clear of alveolar opacities. There is no evidence for pleural effusion. The re is no evidence for vascular congestion. There is no acute osseous pathology. IMPRESSION: Decreased inspiration with minimal right basilar atelectasis. ACT 112: Negative or not required by law. Electronically signed by: Aydin Fine M.D. 12/01/2021 12:01 PM
[2021-12-01 12:07] LABS: Albumin Globulin Ratio 1.4 (0.9-2); Albumin Level 4.1 gm/dl (3.4-5.0); BUN Creatinine Ratio 4.7 (10-20); Bilirubin,Total 0.6 mg/dl (0.2-1.0); Calcium 9.4 mg/dl (8.5-10.1); Creatinine Clr Calc Pharmacy 8.9 ml/min; Est GFR (African American) 5.7 ml/min; Est GFR (Non-African American) 4.9 ml/min; Globulin 2.9 gm/dl (2.5-4.0); Troponin I 0.07 ng/ml (0-0.04)
[2021-12-01 12:16] LABS: ALC (manual) 1.45 K/uL (1.2-3.4); ANC (manual) 7.74 K/uL (1.4-6.5); Eosinophils # (manual) 0.45 K/uL (0-0.5); Eosinophils % (manual) 4.3 %; Lymphocytes # (manual) 1.45 K/uL (1.2-3.4); Lymphocytes % (manual) 13.9 %; Monocytes # (manual) 0.64 K/uL (0.11-0.59); Monocytes % (manual) 6.1 %; Myelocytes # (manual) 0.18 K/uL (0-0); Myelocytes % (manual) 1.7 %; Neutrophils # (manual) 7.74 K/uL (1.4-6.5)
--- NOTE | 2021-12-01 13:07 | CT Scan Report ---
CT abd pelvis wo con CLINICAL HISTORY: back pain COMPARISON STUDY: 09/05/2021 CT DOSE: 1012.79 mGy.cm TECHNIQUE: Standard CT of the Abdomen and Pelvis was performed without IV contrast. The patient did not receive oral contrast. A dose lowering technique was utilized adhering to the principles of CAREY Amin. FINDINGS: Lung base: There is again chronic pleural thickening at the right lung base with scarring present. T he lung bases are otherwise clear. There is again mild cardiomegaly with coronary artery calcificatio n. Abdominal cavity: There is no evidence for abdominal mass, adenopathy or ascites. Liver: The liver is homogeneous in attenuation on these limited noncontrast images.. Spleen: The spleen is homogeneous in attenuation on these limited noncontrast images. Pancreas: The pancreas is homogeneous in attenuation on these limited noncontrast images. Gall Bladder: Surgical clips are again present. Adrenal glands: The adrenal glands are normal in size and attenuation on these limited noncontrast im ages. Kidneys: There is again bilateral renal atrophy and bilateral renal cysts present. Extensive renal va scular calcification is present. There is no evidence for gross renal mass, calculus or hydronephrosi s bilaterally. Bowel: There is again a right lower quadrant ileostomy. There is no evidence for bowel loop dilatatio n or obstruction. There is no evidence for mass lesion. There are no inflammatory changes present. Th ere is no evidence for free air. Bladder: There is no evidence for focal bladder wall thickening, calculus or diverticulum. : There is no evidence for pelvic mass or adenopathy. Vasculature: There is an aortobiiliac graft in place. Atherosclerotic calcification is present. Osseous structures: There is no acute osseous pathology. Compared to previous examination, there is a gain degenerative changes seen at L4-5 with sclerosis present involving both the adjacent endplates o f L4 on L5. No paraspinal soft tissue swelling is present. There is evidence for lumbar canal stenosi s. If the patient is febrile or has an elevated white blood cell count, discitis would be in the diff erential diagnosis. MRI of the lumbar spine would be recommended for further evaluation. IMPRESSION: 1. Compared to previous examination, there is no evidence for bowel loop dilatation or obstruction. 2. No other evidence for acute acute intra-abdominal or pelvic abnormality on these limited noncontra st images. 2. However, there is no evidence of any widening of the L4-5 disc space level with sclerosis involvin g the adjacent vertebral body endplates. No paraspinal soft tissue swelling is seen. There is lumbar canal stenosis at this level. If the patient is febrile or has an elevated white blood cell count, th e presence of discitis cannot be excluded. If indicated clinically, follow-up MRI would be the study of choice for further evaluation. ACT 112: Negative or not required by law. Electronically signed by: Aydin Fine M.D. 12/01/2021 1:06 PM
[2021-12-01] MEDS ORDERED: VANCOMYCIN HCL 2,250 MG in SODIUM CHLORIDE 0.9% 500 ML IV ONE (14:51)
[2021-12-01] MEDS ORDERED: VANCOMYCIN CONSULT ACTIVE PRN (14:51)
[2021-12-01] MEDS ORDERED: cefTRIAXone SODIUM 2,000 MG/70 ML BAG IV STA (14:51)
--- NOTE | 2021-12-01 15:01 | Magnetic Resonance Report ---
MR lumbar spine wo con CLINICAL HISTORY: Back pain. Abnormal appearance of L4-[address] Evaluate for discitis. COMPARISON: CT of the abdomen and pelvis from 12/01/2021 TECHNIQUE: Multiplanar multisequence images of the Lumbar Spine were performed without contrast. FINDINGS: There is old anterior wedge deformity of the superior endplate of L2. There is no evidence for an acu te compression fracture. The heights of the remaining lumbar vertebral bodies are maintained. The joann tebral bodies are in anatomic alignment. Discogenic changes are present involving vertebral body endplates at L4-5. Homogeneous marrow signal is seen without evidence for marrow edema or marrow replacement. There is no MR evidence for osteomye litis. T12-L1: The disc space height is maintained. There are no focal disc protrusions or extrusions ident ified. The thecal sac and epidural fat are maintained. The neural foramen are patent bilaterally. Th ere is no evidence for nerve root encroachment. The facet joints are within normal limits. L1-2: There is moderate disc space narrowing with disc/osteophyte complex present. There are no foc al disc protrusions or extrusions identified. There is minimal flattening of thecal sac anteriorly. The neural foramen are patent bilaterally. There is no evidence for nerve root encroachment. Mild hyp ertrophic facet joint disease is seen bilaterally. L2-3: The disc space height is maintained. There are no focal disc protrusions or extrusions identi fied. There is moderate hypertrophic facet joint disease with thickening of ligamentum flavum bilate rally. This encroaches upon the thecal sac posterolaterally, bilaterally. This produces mild central canal stenosis. No significant foraminal stenosis or nerve root encroachment is seen. L3-4: The disc space height is maintained. There are no focal disc protrusions or extrusions identi fied. There is bulging annulus with flattening of thecal sac anteriorly. Additionally, there is mode rate hypertrophic facet joint disease with thickening of ligamentum flavum present. The combination o f these findings produce mild to moderate central canal stenosis. No significant foraminal stenosis i s identified . No focal nerve root encroachment is seen. L4-5: The disc space height is maintained. There is diffuse increased signal seen within the disc o n T2 and STIR weighted imaging with findings characteristic of chronic discitis. No paraspinal absce ss is seen. No adjacent osteomyelitis is seen in the vertebral body endplates are sharply defined. Th ere is encroachment on the thecal sac anteriorly. Additionally, moderate hypertrophic facet joint dis ease with thickening of ligamentum flavum is present bilaterally. A combination of these findings pro duce marked central canal stenosis. There is also bilateral foraminal stenosis. L5-S1: There is moderate to marked disc space narrowing present. There are no focal disc protrusion s or extrusions identified. The thecal sac and epidural fat are maintained. The neural foramen are p atent bilaterally. There is no evidence for nerve root encroachment. Moderate hypertrophic facet join t disease is present bilaterally. IMPRESSION: 1. Evidence for chronic discitis involving the L4-5 level with extensive increased signal seen in bul ging of the disc into the spinal canal anteriorly. No paraspinal abscess is seen. Additionally, moder ate hypertrophic facet joint disease with thickening of ligamentum flavum is present bilaterally. The combination of these findings produce marked central canal stenosis and moderate to marked bilateral foraminal stenosis. There is no evidence for associated osteomyelitis. 2. Degenerative disc and degenerative joint disease are also seen at multiple positions disc space le vels with segmental spinal stenosis present. The emergency department was called directly with the results of this study. ACT 112: Negative or not required by law. Electronically signed by: Aydin Fine M.D. 12/01/2021 3:00 PM
--- NOTE | 2021-12-01 15:36 | History & Physical Report ---
Date of Service December 01, 2021 Assessment & Plan (1) Intractable low back pain: Plan: Patient presents with 1 month of constant, worsening lumbar back pain with radicular pain to both legs. Prior to this pain starting his functional status was already very poor - he could only ambulate a few steps. Typically this was enough to transfer from bed to chair, chair to wheelchair, chair to commode, etc. Now he essentially cannot even take those limited steps as a result of the severe low back pain as well as his b/l leg weakness. His MRI l-spine today shows severe spinal stenosis at L4-L5 along with foraminal stenosis. There is a question of diskitis at L4-L5 as well. Sed rate/crp are relatively normal, however. Additionally, his wbc count is normal, he has had no infectious symptoms, and he has been eating well. Further, there is no obvious epidural abscess. Will ask Dr Jose Collins to see him in consult from the ortho-spine service tomorrow. Keep NPO in the event he needs an urgent procedure. Continue IV rocephin and IV vancomycin for ? diskitis. Follow blood cultures. Pain control - * tylenol 1gm BID * norco prn pain * if norco is not effective - dilaudid 0.25mg prn * voltaren gel qid * lidoderm patch daily * heating pad * lyrica - was taking 75mg once daily prior; will change this to 50mg BID Would place on bedrest overnight while awaiting ortho consultation. (2) Abnormal MRI, lumbar spine: Plan: DJD/spinal stenosis/HNP +/- diskitis at L4-L5. Ortho consult with Dr Collins tomorrow. See #1 above. (3) Radicular leg pain: Plan: increase lyrica 75mg once daily to 50mg BID watch for sedation (4) Spinal stenosis: Plan: as seen on MRI l-spine today; L4-L5 see above (5) ESRD (end stage renal disease) on dialysis: Plan: managed by [facility] M/W/F schedule at [facility] consult [facility] for their assistance (6) Chronic right-sided CHF (congestive heart failure): Plan: appears compensated at this time fluid management is via #5 (7) Chronic respiratory failure with hypoxia: Plan: on home o2, 2 liters stable (8) COPD (chronic obstructive pulmonary disease): Plan: stable, no exacerbation on home O2, 2 liters cont inhalers (9) CAD (coronary artery disease): Plan: no ischemic symptoms at this time the minimally elevated troponin is CHRONIC cont statin in the event he needs a surgical procedure in the next 1-2 days hold his asa/plavix HOWEVER - resume these promptly if nonoperative management is pursued (10) Ileostomy in place: Plan: functioning well no issues (11) Hypothyroidism: Plan: TSH 09/15 was wnl cont synthroid (12) Hx of CABG: Plan: noted statin resume asa/plavix when able as above nitro prn (13) Anemia, chronic renal failure: Plan: H/H acceptable at this time (14) DVT prophylaxis: Plan: HOLD ON CHEMICAL MEANS until we know if he needs any surgical intervention on back if nonoperative management ensues -- would start heparin SC (15) Peripheral vascular disease: Plan: with resulting chronic toe ulcers on left foot, and some skin breakdown top of right foot local wound care statin resume asa/plavix as soon as we know what his surgical (vs nonsurgical) plan is for the back (16) Insomnia: Plan: PDMP confirms he takes 15-30mg of temazepam nightly this has been ordered for him Plan: left message for pt's sister, Nidia, at ~2030 on 12/01/21 History of Present Illness Chief Complaint: severe low back pain Primary Care Provider: Emil Lazcano MD Mr Perdue is a 76yo male with ESRD on HD M// - well known to the [facility] Hospitalist service due to past admissions - CAD, chronic right-sided CHF, prior mesenteric ischemia 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 Patient states that the pain started in the low back "just below the waist line" and was initially mild. The pain would radiate into both legs, perhaps a bit worse on the left side, and down to the level of each ankle. The leg pain was shooting/stabbing in character, intermittent, and intense at times. No paresthesias or numbness - just severe leg pain. He continues with the bilateral leg pain but the worst pain is now directly over the lumbar spine in the midline. He has been taking tylenol for the pain without relief. He has nocturnal symptoms. Over the last few months his mobility was very poor - was only able to take a few steps in order to transfer from a chair to the bed, a chair into a wheelchair, etc. Now, over the last few weeks, he hasn't been able to even take a few steps due to the pain in his back/legs as well as weakness. Yesterday he apparently was trying to get out of his recliner at home and fell/slid to the floor because of the weakness. He can't give additional details on the event. He denies any significant pain in the left foot at this time. He does state he has open sores on both feet and his sister - who is a former nurse - tends to these. Over the last month he denies any loss of appetite, fevers, chills or sweats. He has fatigue, but this is chronic in nature. He attended his HD session on Thursday at [facility] as usual. Allergies Allergy/AdvReac Type Severity Reaction Status Date / Time oxycodone AdvReac Severe DELIRIUM Verified 09/02/21 01:52 tramadol AdvReac Severe dizziness;a Verified 09/02/21 01:52 nxiety;sob gabapentin AdvReac Intermediate Nausea Verified 09/02/21 01:52 Home Medications Medication Instructions Recorded Confirmed Type calcium acetate(phosphat bind) 667 667 mg PO DAILY 08/23/18 12/01/21 History mg capsule docusate sodium 100 mg capsule 100 mg PO HS 05/31/19 12/01/21 History aspirin 81 mg tablet,delayed 81 mg PO DAILY 05/01/20 12/01/21 History release (Aspirin Low Dose) vitamin B complex and vitamin C 1 mg PO DAILY 05/01/20 12/01/21 History no.20-folic acid 1 mg capsule (Triphrocaps) atorvastatin 40 mg tablet 40 mg PO HS #90 tab 11/13/20 12/01/21 Rx fluticasone furoate 200 1 inh INHALATION QAM #84 ea 11/23/20 12/01/21 Rx mcg-vilanterol 25 mcg/dose inhalation powder (Breo Ellipta) levothyroxine 88 mcg tablet 88 mcg PO DAILY #90 tab 11/23/20 12/01/21 Rx paroxetine HCl 20 mg tablet 20 mg PO HS #90 tab 01/21/21 12/01/21 Rx tiotropium bromide 18 mcg capsule 1 cap INHALATION QAM #1 inh 03/27/21 12/01/21 Rx with inhalation device (Spiriva with HandiHaler) aluminum-mag hydroxide-simethicone 30 ml PO DIRECTED PRN 04/08/21 12/01/21 History 200 mg-200 mg-20 mg/5 mL oral susp ipratropium 0.5 mg-albuterol 3 mg 3 ml INHALATION Q4H PRN 04/08/21 12/01/21 History (2.5 mg base)/3 mL nebulization soln lidocaine 4 % topical patch 1 patch TOPICAL DAILY PRN 04/08/21 12/01/21 History (Aspercreme (lidocaine)) nitroglycerin 0.4 mg sublingual 0.4 mg SUBLINGUAL DIRECTED PRN 04/08/21 12/01/21 History tablet (Nitrostat) ropinirole 0.25 mg tablet 0.25 mg PO HS 04/08/21 12/01/21 History sennosides 8.6 mg tablet (Senokot) 8.6 mg PO DAILY PRN 04/08/21 12/01/21 History acetaminophen 325 mg capsule 650 mg PO QID PRN #30 cap 04/13/21 12/01/21 Rx diclofenac sodium 1 % topical gel 2 g TOPICAL QID #100 g 04/13/21 12/01/21 Rx (Voltaren Arthritis Pain) clopidogrel 75 mg tablet 75 mg PO QDL 05/31/21 12/01/21 History amiodarone 200 mg tablet 200 mg PO Q OTHER DAY #14 tab 07/11/21 12/01/21 Rx pantoprazole 40 mg tablet,delayed 40 mg PO QAM #90 tab 07/11/21 12/01/21 Rx release temazepam 15 mg capsule 15 mg PO HS PRN #60 cap 09/17/21 12/01/21 Rx pregabalin 75 mg capsule (Lyrica) 75 mg PO QAM #30 cap 10/15/21 12/01/21 Rx famotidine 20 mg tablet 20 mg PO 3XWK #90 tab 11/05/21 12/01/21 Rx Past Med/Surg History Medical History (Updated 12/01/21 @ 21:25 by Tan Chacon) AAA (abdominal aortic aneurysm) Anemia, chronic renal failure AV fistula right arm CAD (coronary artery disease) Chronic back pain Chronic GERD Chronic right-sided CHF (congestive heart failure) Chronic ulcer of great toe of left foot with fat layer exposed COPD (chronic obstructive pulmonary disease) CVA (cerebral vascular accident) "NO RESIDUAL EFFECTS" PER RECORDS Dependence on renal dialysis Depression Dermatitis Diastolic CHF DVT (deep venous thrombosis) Elevated troponin Encounter for central line placement GERD (gastroesophageal reflux disease) H/O: gout Hyperlipidemia Hypothyroidism Ileostomy in place 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 (Dr Sj Restrepo) Memory loss or impairment Myocardial infarct, old 2010 Necrosis of colon Orthostatic hypotension Oxygen dependent Peripheral vascular disease Skin ulcers of both feet Small bowel obstruction Valvular disease S/P MVR (2010); ?AVR PER RECORDS Vitamin D deficiency Surgical History (Updated 12/01/21 @ 16:57 by Tan Chacon) Difficult intubation B/L Anteriogram, Right femoral to anterior tibial cadaver vein bypass= 08/06/18= Grade view 4, MAC 3 --> Glidescope #3, ETT 7.5 at [facility] H/O abdominal aortic aneurysm repair 2011 H/O [id number] bypass 2012 H/O colectomy H/O mitral valve repair 2010; ?AVR PER RECORDS Hx of CABG S/P CABG X2 (DURING MVR) 2010 S/P AAA repair S/P ablation of atrial fibrillation S/P cholecystectomy S/P femoral-popliteal bypass surgery S/P MVR (mitral valve repair) Status post transmetatarsal amputation of right foot Family History Mother Essential hypertension Father , age 76 Myocardial infarction Denies family history of Colon cancer Ovarian cancer Prostate cancer Breast cancer Social History Smoking Status: Former smoker Tobacco Type: Cigarettes Years Smoked: 5; Second Hand Exposure: No; Hx Alcohol Use: No Hx Substance Use: No Preferred Language: Faroese Communication Ability: Effective Visual Impairment: No Limitations Hearing Ability: Normal Cone Classifier Tender Required: No Beliefs That Will Affect Care: None marital status: Single marital status details: 1 daughter Current Living Situation: Family Current Living Situation Comment: lives with sister. 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 Feels Safe at Home: Yes Childhood Exposure to Second-Hand Smoke: No Dental Care, Regularly: Yes Physical Activity Frequency: Other Physical Activity Frequency Comment: Physical activity limited by patients medical conditions Seatbelt Use: always Sunscreen Use: Yes Assistive Devices: Oxygen - Continuous Review of Systems Review of Systems: gen - no fevers, chills, appetite loss; chronic fatigue; chronic "feeling cold" but no change in such eyes - no change in vision HENT - no loss of taste or smell; no significant dysphagia neck - denies significant pain today CV - no chest pain pulm - chronic dyspnea - no change in such; no cough GI - no abd pain, no emesis; stool output via ostomy is unchanged - does not make any urine any longer musculo - severe l-spine back pain with radiation to legs neuro - weakness of b/l legs, worse on left; chronic numbness of b/l distal legs and hands skin - sores/ulcers on b/l feet psych - denies any current depression Physical Exam Physical Exam: gen - chronically ill-appearing, ashen color, he has pain in lumbar spine when he shifts around on the bed eyes - PERRL HENT - TMs clear b/l, mouth without lesions skin - seborrhea forehead/face; abrasions/tiny ulcerations on dorsum of right foot; left foot - multiple ulcerations over several toes; mild odor from the left foot neck - no JVD heart - RRR, s1 s2, 2/6 systolic murmur LSB lungs - CTA b/l abd - soft NT ND BS+; ostomy bag in place with brown stool vascular - right arm AV fistula with bruit; cap refill b/l feet <2sec; pulses b/l feet about 2+ back - tender to palpation over lower lumbar spine segments; no pain over either SI joint neuro - strength left leg - flexion of hip, extension of knee, plantarflexion/dorsiflexion of foot about 4/5; right hip flexion, right knee extension, right foot dorsiflexion/plantarflexion near 5/5; distal leg sensation over L4/L5 dermatomes impaired b/l; L2/L3 dermatomes on thighs - sensation intact; no ankle clonus; no hyper-reflexia (reflexes knee/ankles 1+ or less b/l) psych - a/o x 3 Results & Data Results & Data ([facility]) Vital Signs (Past 12 Hours) Vital Signs Temp Pulse Pulse Resp BP BP Pulse Ox 12/01/21 14:35 70 18 157/79 H 100 12/01/21 13:02 67 17 131/66 97 12/01/21 11:34 70 20 121/60 95 12/01/21 10:59 36.4 C L 71 14 155/67 H 93 Laboratory Results Laboratory Results - last 24 hr 12/01/21 12/01/21 12/01/21 11:26 11:26 11:26 WBC 10.46 RBC 3.66 L Hgb 11.9 L Hct 37.1 L MCV 101.4 H MCH 32.5 MCHC 32.1 RDW Std Deviation 61.8 H RDW Coeff of Jolanta 17.1 H Plt Count 132 MPV 9.0 Neutrophils % (Manual) 74.0 Lymphocytes % (Manual) 13.9 Monocytes % (Manual) 6.1 Eosinophils % (Manual) 4.3 Myelocytes % (Man) 1.7 Neutrophils # (Manual) 7.74 H Total Absolute Neuts 7.74 H Lymphocytes # (Manual) 1.45 Total Abs Lymphocytes 1.45 Monocytes # (Manual) 0.64 H Eosinophils # (Manual) 0.45 Myelocytes # (Manual) 0.18 H ESR PT 10.7 INR 1.1 APTT 23.9 PTT Ratio 0.9 Sodium 134 L Potassium 4.0 Chloride 96 L Carbon Dioxide 27 Anion Gap 11 BUN 44 H Creatinine 9.29 H* Est Cr Clr Drug Dosing 8.9 Est GFR ( Amer) 5.7 Est GFR (Non-Af Amer) 4.9 BUN/Creatinine Ratio 4.7 L Glucose 106 H Calcium 9.4 Total Bilirubin 0.6 AST 21 ALT 20 Alkaline Phosphatase 143 H Troponin I 0.07 H* C-Reactive Protein Total Protein 7.0 Albumin 4.1 Globulin 2.9 Albumin/Globulin Ratio 1.4 Lipase 70 Procalcitonin SARS-CoV-2, RNA, NAAT 12/01/21 12/01/21 12/01/21 11:26 11:26 11:26 WBC RBC Hgb Hct MCV MCH MCHC RDW Std Deviation RDW Coeff of Jolanta Plt Count MPV Neutrophils % (Manual) Lymphocytes % (Manual) Monocytes % (Manual) Eosinophils % (Manual) Myelocytes % (Man) Neutrophils # (Manual) Total Absolute Neuts Lymphocytes # (Manual) Total Abs Lymphocytes Monocytes # (Manual) Eosinophils # (Manual) Myelocytes # (Manual) ESR 28 H PT INR APTT PTT Ratio Sodium Potassium Chloride Carbon Dioxide Anion Gap BUN Creatinine Est Cr Clr Drug Dosing Est GFR ( Amer) Est GFR (Non-Af Amer) BUN/Creatinine Ratio Glucose Calcium Total Bilirubin AST ALT Alkaline Phosphatase Troponin I C-Reactive Protein 1.09 H Total Protein Albumin Globulin Albumin/Globulin Ratio Lipase Procalcitonin 0.33 SARS-CoV-2, RNA, NAAT 12/01/21 14:37 WBC RBC Hgb Hct MCV MCH MCHC RDW Std Deviation RDW Coeff of Jolanta Plt Count MPV Neutrophils % (Manual) Lymphocytes % (Manual) Monocytes % (Manual) Eosinophils % (Manual) Myelocytes % (Man) Neutrophils # (Manual) Total Absolute Neuts Lymphocytes # (Manual) Total Abs Lymphocytes Monocytes # (Manual) Eosinophils # (Manual) Myelocytes # (Manual) ESR PT INR APTT PTT Ratio Sodium Potassium Chloride Carbon Dioxide Anion Gap BUN Creatinine Est Cr Clr Drug Dosing Est GFR ( Amer) Est GFR (Non-Af Amer) BUN/Creatinine Ratio Glucose Calcium Total Bilirubin AST ALT Alkaline Phosphatase Troponin I C-Reactive Protein Total Protein Albumin Globulin Albumin/Globulin Ratio Lipase Procalcitonin SARS-CoV-2, RNA, NAAT NEGATIVE Diagnostic Findings Abdomen/Pelvis CT 12/01/21 11:14 CT abd pelvis wo con CLINICAL HISTORY: back pain COMPARISON STUDY: 09/05/2021 CT DOSE: 1012.79 mGy.cm TECHNIQUE: Standard CT of the Abdomen and Pelvis was performed without IV contrast. The patient did not receive oral contrast. A dose lowering technique was utilized adhering to the principles of ALARA. FINDINGS: Lung base: There is again chronic pleural thickening at the right lung base with scarring present. The lung bases are otherwise clear. There is again mild cardiomegaly with coronary artery calcification. Abdominal cavity: There is no evidence for abdominal mass, adenopathy or ascites. Liver: The liver is homogeneous in attenuation on these limited noncontrast images.. Spleen: The spleen is homogeneous in attenuation on these limited noncontrast images. Pancreas: The pancreas is homogeneous in attenuation on these limited noncontrast images. Gall Bladder: Surgical clips are again present. Adrenal glands: The adrenal glands are normal in size and attenuation on these limited noncontrast images. Kidneys: There is again bilateral renal atrophy and bilateral renal cysts present. Extensive renal vascular calcification is present. There is no evidence for gross renal mass, calculus or hydronephrosis bilaterally. Bowel: There is again a right lower quadrant ileostomy. There is no evidence for bowel loop dilatation or obstruction. There is no evidence for mass lesion. There are no inflammatory changes present. There is no evidence for free air. Bladder: There is no evidence for focal bladder wall thickening, calculus or diverticulum. : There is no evidence for pelvic mass or adenopathy. Vasculature: There is an aortobiiliac graft in place. Atherosclerotic calcification is present. Osseous structures: There is no acute osseous pathology. Compared to previous examination, there is again degenerative changes seen at L4-5 with sclerosis present involving both the adjacent endplates of L4 on L5. No paraspinal soft tissue swelling is present. There is evidence for lumbar canal stenosis. If the patient is febrile or has an elevated white blood cell count, discitis would be in the differential diagnosis. MRI of the lumbar spine would be recommended for further evaluation. IMPRESSION: 1. Compared to previous examination, there is no evidence for bowel loop dilatation or obstruction. 2. No other evidence for acute acute intra-abdominal or pelvic abnormality on these limited noncontrast images. 2. However, there is no evidence of any widening of the L4-5 disc space level with sclerosis involving the adjacent vertebral body endplates. No paraspinal soft tissue swelling is seen. There is lumbar canal stenosis at this level. If the patient is febrile or has an elevated white blood cell count, the presence of discitis cannot be excluded. If indicated clinically, follow-up MRI would be the study of choice for further evaluation. ACT 112: Negative or not required by law. Electronically signed by: Aydin Fine M.D. 12/01/2021 1:06 PM Chest X-Ray 12/01/21 11:15 XR chest 1V portable CLINICAL HISTORY: sob. History of smoking COMPARISON STUDY: 09/02/2021 TECHNIQUE: 1 view of the chest FINDINGS: Single frontal view of the chest demonstrates the heart to be enlarged status post previous cardiothoracic surgery. There is a decreased inspiratory effort with elevation of the hemidiaphragms and crowding of the bronchovascular markings at the lung bases and centrally. There is minimal right basilar atelectasis. The lungs are clear of alveolar opacities. There is no evidence for pleural effusion. There is no evidence for vascular congestion. There is no acute osseous pathology. IMPRESSION: Decreased inspiration with minimal right basilar atelectasis. ACT 112: Negative or not required by law. Electronically signed by: Aydni Fine M.D. 12/01/2021 12:01 PM Lumbar Spine MRI 12/01/21 13:23 MR lumbar spine wo con CLINICAL HISTORY: Back pain. Abnormal appearance of L4-[address] Evaluate for discitis. COMPARISON: CT of the abdomen and pelvis from 12/01/2021 TECHNIQUE: Multiplanar multisequence images of the Lumbar Spine were performed without contrast. FINDINGS: There is old anterior wedge deformity of the superior endplate of L2. There is no evidence for an acute compression fracture. The heights of the remaining lumbar vertebral bodies are maintained. The vertebral bodies are in anatomic alignment. Discogenic changes are present involving vertebral body endplates at L4-5. Homogeneous marrow signal is seen without evidence for marrow edema or marrow replacement. There is no MR evidence for osteomyelitis. T12-L1: The disc space height is maintained. There are no focal disc protrusions or extrusions identified. The thecal sac and epidural fat are maintained. The neural foramen are patent bilaterally. There is no evidence for nerve root encroachment. The facet joints are within normal limits. L1-2: There is moderate disc space narrowing with disc/osteophyte complex present. There are no focal disc protrusions or extrusions identified. There is minimal flattening of thecal sac anteriorly. The neural foramen are patent bilaterally. There is no evidence for nerve root encroachment. Mild hypertrophic facet joint disease is seen bilaterally. L2-3: The disc space height is maintained. There are no focal disc protrusions or extrusions identified. There is moderate hypertrophic facet joint disease with thickening of ligamentum flavum bilaterally. This encroaches upon the thecal sac posterolaterally, bilaterally. This produces mild central canal stenosis. No significant foraminal stenosis or nerve root encroachment is seen. L3-4: The disc space height is maintained. There are no focal disc protrusions or extrusions identified. There is bulging annulus with flattening of thecal sac anteriorly. Additionally, there is moderate hypertrophic facet joint disease with thickening of ligamentum flavum present. The combination of these findings produce mild to moderate central canal stenosis. No significant foraminal stenosis is identified . No focal nerve root encroachment is seen. L4-5: The disc space height is maintained. There is diffuse increased signal seen within the disc on T2 and STIR weighted imaging with findings characteristic of chronic discitis. No paraspinal abscess is seen. No adjacent osteomyelitis is seen in the vertebral body endplates are sharply defined. There is encroachment on the thecal sac anteriorly. Additionally, moderate hypertrophic facet joint disease with thickening of ligamentum flavum is present bilaterally. A combination of these findings produce marked central canal stenosis. There is also bilateral foraminal stenosis. L5-S1: There is moderate to marked disc space narrowing present. There are no focal disc protrusions or extrusions identified. The thecal sac and epidural fat are maintained. The neural foramen are patent bilaterally. There is no evide nce for nerve root encroachment. Moderate hypertrophic facet joint disease is present bilaterally. IMPRESSION: 1. Evidence for chronic discitis involving the L4-5 level with extensive increased signal seen in bulging of the disc into the spinal canal anteriorly. No paraspinal abscess is seen. Additionally, moderate hypertrophic facet joint disease with thickening of ligamentum flavum is present bilaterally. The combination of these findings produce marked central canal stenosis and moderate to marked bilateral foraminal stenosis. There is no evidence for associated osteomyelitis. 2. Degenerative disc and degenerative joint disease are also seen at multiple positions disc space levels with segmental spinal stenosis present. The emergency department was called directly with the results of this study. ACT 112: Negative or not required by law. Electronically signed by: Aydin Fine M.D. 12/01/2021 3:00 PM EKG - my reading - NSR with first degree av block (p waves are challenging to see but I believe they are present) Code Status & VTE Plan Code Status full code PG Care Time/CCT Total # of Minutes Spent Total Time Spent with Patient: Total time spent is greater than 50% in coordination of care (as documented) at patient's floor/unit and/or counseling patient: Coding Level of Care Code 04851 Initial Inpt Care Lvl 3 Diagnoses Spinal stenosis M48.07 Spinal region: lumbosacral Intractable low back pain M54.59 Abnormal MRI, lumbar spine R93.7 Radicular leg pain M54.10 Chronic right-sided CHF (congestive heart failure) I50.812 ESRD (end stage renal disease) on dialysis N18.6; Z99.2 Chronic respiratory failure with hypoxia J96.11 COPD (chronic obstructive pulmonary disease) J44.9 CAD (coronary artery disease) I25.10 Associated angina: without angina Coronary Disease-Associated Artery/Lesion type: wrangell artery [place] vs. transplanted heart: wrangell heart Ileostomy in place Z93.2 Hypothyroidism E03.9 Hx of CABG Z95.1 Anemia, chronic renal failure N18.9; D63.1 Chronic kidney disease stage: unspecified stage DVT prophylaxis Z29.9 Peripheral vascular disease I73.9 Insomnia G47.00 (1) Anemia, chronic renal failure Chronic kidney disease stage: unspecified stage Qualified Code(s): N18.9 - Chronic kidney disease, unspecified; D63.1 - Anemia in chronic kidney disease (2) CAD (coronary artery disease) Associated angina: without angina Coronary Disease-Associated Artery/Lesion type: [place] artery [place] vs. transplanted heart: [place] heart Qualified Code(s): I25.10 - Atherosclerotic heart disease of [place] coronary artery without angina pectoris (3) Spinal stenosis Spinal region: lumbosacral Qualified Code(s): M48.07 - Spinal stenosis, lumbosacral region
[2021-12-01] MEDS ORDERED: NITROGLYCERIN SL 0.4 MG/TAB TAB SL PRN (18:48)
[2021-12-01] MEDS ORDERED: ONDANSETRON INJ 2 MG/ML 2 ML VIAL IV PRN (18:48)
[2021-12-01] MEDS ORDERED: TEMAZEPAM 15 MG CAPSULE PO PRN (18:48)
[2021-12-01] MEDS ORDERED: ALBUT/IPRATROP 3MG/0.5MG NEB 3 ML VIAL INH PRN (18:48)
[2021-12-01] MEDS ORDERED: HYDROmorphone INJ 0.5 MG/0.5 ML SYR IV PRN (18:48)
[2021-12-01] MEDS ORDERED: MoRPHine SULFATE 4 MG/ML 1 ML CARP\\VIAL IV STA (19:10)
[2021-12-01] MEDS ORDERED: HYDROCODONE/ACETAMOPHEN 5/325MG TAB PO ONE (19:15)
--- NOTE | 2021-12-01 19:21 | Pharmacy Report ---
Pharmacy Vanc AUC Short Note - Date of Service December 01, 2021 - Assessment & Plan Assessment 76 year old M receiving Vancomycin and Ceftriaxone for treatment of L4-L5 discitis. * PMHx significant for ESRD on HD MWF and COPD. * Afebrile. No leukocytosis. ESR/CRP mildly elevated. Procal was 0.33. Blood cultures pending. * Given loading dose of Vancomycin in ED, will not need any further doses until after next HD session. Plan Vancomycin * AUC/FAVIOLA is the preferred PK/PD target for vancomycin * AUC guided dosing is effective and associated with decreased risk of nephrotoxicity compared to traditional trough targets * Loading dose of 2250 mg IV x 1 * No further maintenance doses necessary at this time * Will order random level prior to HD tomorrow morning. Pharmacy will continue to follow and will adjust dose/frequency as necessary. Thank you.
[2021-12-01] MEDS: DICLOFENAC SOD 1% GEL 100 GM TUBE EXT SCH ×2 (20:21→20:33)
[2021-12-01] MEDS: PARoxetine HCL 20 MG TAB PO SCH (20:22)
[2021-12-01] MEDS: ACETAMINOPHEN 500 MG TAB PO SCH (20:22)
[2021-12-01] MEDS: DOCUSATE SODIUM 100 MG CAP PO SCH (20:22)
[2021-12-01] MEDS: ATORVASTATIN 40 MG TAB PO SCH (20:22)
[2021-12-01] MEDS: rOPINIRole HCL 0.25 MG TABLET PO SCH (20:23)
[2021-12-01] MEDS: PREGABALIN 50 MG CAP PO SCH (20:25)
[2021-12-01] MEDS: TEMAZEPAM 15 MG CAPSULE PO SCH (20:25)
[2021-12-02] MEDS: HYDROCODONE/ACETAMOPHEN 5/325MG TAB PO PRN ×2 (05:48→15:09)
[2021-12-02] MEDS: LEVOTHYROXINE SODIUM 88 MCG TABLET PO SCH (05:48)
--- NOTE | 2021-12-02 06:03 | Electrocardiogram Report ---
Test Reason : Blood Pressure : / mmHG Vent. Rate : 068 BPM Atrial Rate : 068 BPM P-R Int : 276 ms QRS Dur : 102 ms QT Int : 432 ms P-R-T Axes : 000 080 073 degrees QTc Int : 459 ms Sinus rhythm with 1st degree A-V block with occasional Premature ventricular complexes Nonspecific ST abnormality Abnormal ECG When compared with ECG of 29-AUG-2021 11:24, Premature ventricular complexes are now Present Confirmed by Grupo Moreno ([id number]) on 12/02/2021 6:02:43 AM Referred By: Confirmed By:Grupo Moreno
--- NOTE | 2021-12-02 06:24 | Electrocardiogram Report ---
Test Reason : Blood Pressure : / mmHG Vent. Rate : 095 BPM Atrial Rate : 108 BPM P-R Int : 000 ms QRS Dur : 114 ms QT Int : 368 ms P-R-T Axes : 000 104 054 degrees QTc Int : 463 ms Poor data quality, interpretation may be adversely affected Atrial fibrillation Rightward axis Nonspecific ST abnormality Abnormal ECG When compared with ECG of 01-DEC-2021 11:23, Atrial fibrillation has replaced Sinus rhythm Non-specific change in ST segment in Inferior leads ST no longer depressed in Anterior leads Confirmed by Grupo Moreno ([id number]) on 12/02/2021 6:24:30 AM Referred By: NO PCP Confirmed By:Grupo Moreno
--- NOTE | 2021-12-02 06:33 | Communication Note ---
Date of Service: December 02, 2021 Informed by RN that telemetry had indicated that patient's rhythm was concerning for atrial fibrillation on telemetry beginning around 0511. I spoke with RN who states that the patient is asymptomatic. Recent set of vital signs demonstrate a BP at 138/72 with ventricular rates in the 80-90 range. His oxygenation and respiratory rate are unchanged. Review of records indicate that he is on amiodarone 200mg every other day. Cardiology consultation obtained here in 05/2021 seems to indicate that, then too, patient had evidence of flipping in/out of NSR with fibrillation. They had noted his difficult situation with softer pressors and ESRD. He has a history of ablation in the past. I did obtain an ECG, which - unfortunately due to the patient's positioning needs secondary to pain - was poor quality and somewhat difficult to interpret. On the rhythm strip in V1, there does seem to be some regularity in the R-Rs potentially with intermittent P's -- but again, somewhat difficult to interpret. Would attempt repeating early in AM if still ongoing, and ensuring K > 4, Mg > 2. Consider cardiology consultation if persistent. Certainly, patient has a number of physiologic stressors (back pain, ESRD) that may be contributing. He does not appear to currently be on anticoagulation. At the bedside, patient was just coming out of sleep but denied shortness of breath. He was unsure who his promotion officer is/was. He thinks he is on Warfarin, but his medical record doesn't seem to clearly reflect this -- which will require further clarification. Resident Activity Tracking Resident Involvement: Resident Care Provided Care Provided: Adult Hospital Medicine
--- NOTE | 2021-12-02 07:05 | Hospitalist Progress Note ---
Date of Service December 02, 2021 Assessment & Plan (1) Intractable low back pain: Plan: 76 y/o M w/ PMHx of pAF, spinal steonsis CAD, CHF, COPD on home 2L, ESRD, ileostomy, ileostomy who presents w/ 1 month of worsening lumbar radiculopathy w/ lumbar CT/MRI concerning for chronic L4-L5 discitis and central spinal stenosis from disc bulge. Intractable low back pain sec to lumbar radiculopathy Concern of Discitis L4-5 Baseline functional status poor. Started on empiric IV vanc and rocephin for discitis. Continue. Follow blood cultures, neg to date. MRI L spine: chronic discitis involving the L4-5 level with extensive increased signal seen in bulging of the disc into the spinal canal anteriorly. No paraspinal abscess is seen. WBC upper limit of normal. No infectious clinical symptoms. Pain control - tylenol 1gm BID, norco prn for severe pain. dilaudid IV 0.25mg for severe painprn. voltaren gel qid. lidoderm patch daily. Lyrica 50mg BID; will revert back to 75mg daily for renal dosing. Orthopedics Dr. Collins consulted. Will see on 12/03/21. Spoke w/ anesthesiology: too high risk because of complex PMHx; if surgery strongly indicated, would recommend transfer to tertiary center. restarted home asa, plavix (2) ESRD (end stage renal disease) on dialysis: Plan: managed by [facility] M/W/F schedule at [facility] - consulted [facility], assistance appreciated. - s/p dialysis on 12/02/21; some intradialysis hypotension, resolved after - hyperK, hyper phos. management per nephro. (3) Chronic right-sided CHF (congestive heart failure): Plan: with moderate pulmonary Hypertension Volume appears compensated at this time 05/2021 echo w/ EF 60-65. Mod concentric LVH. Borderline RV enlargement. Moderate LA and RA dilation. moderate aortic valve sclerosis. RVSP elevated at 40-50mmhg. RVSP reduced as assessed by TAPSE. (4) Opacity of lung on imaging study: Plan: RLL atelectasis. Per my interpretation, slightly patchy appearing. However, poor inspiratory effort. Procalc 0.33. Incentive spirom. Abx above will cover pulmonary source. Follow clinically. Consider repeating procalc. (5) Spinal stenosis: Plan: as seen on MRI l-spine today; L4-L5 see above (6) COPD (chronic obstructive pulmonary disease): Plan: stable, no exacerbation on home O2, 2 liters cont inhalers (7) Chronic respiratory failure with hypoxia: Plan: - see above (8) CAD (coronary artery disease): Plan: hx of CABG no ischemic symptoms at this time the minimally elevated troponin is CHRONIC cont statin resumed home asa, plavix (9) Atrial fibrillation: Plan: - continue home regimen amio 200mg PO every other day - converted from sinus to afib 12/02/21 AM. Rate controlled. (10) Ileostomy in place: Plan: functioning well, routine care (11) Hypothyroidism: Plan: TSH 09/15 was wnl cont synthroid (12) Anemia, chronic renal failure: Plan: H/H acceptable at this time. Epo per nephro (13) Peripheral vascular disease: Plan: - see above (14) Insomnia: Plan: PDMP confirms he takes 15-30mg of temazepam nightly. Continue. Plan: FEN: HH, dialysis renal diet code: Full code dispo: med tele ppx: sq heparin q12h 5000u Admission and Anticipated Discharge Date Admission Date: December 01, 2021 Supervising Physician Co-Signing Physician Notes Resident Physician Supervision Note: I independently interviewed and examined the patient and verified the darnell history and physical, reviewed labs and image studies and agree with resident Dr. Sanchez findings and care plan. Spinal stenosis with intractable pain Very high risk surgical candidate due to right heart dysfunction and Pul HTN due to copd -Continue pain control -For surgery eval in am. Further discussion to follow -HD per nephro Subjective Still in pain, feels like ran over by tractor, 9/10 pain. Suprapubic/low abd pain radiates down to feet. He does have low back pain, but front is worse. At admission, back was hurting more, had for a month. No numbness/tingling. No dysuria or incontinence. No saddle anesthesia. Denies other ROS. Had soft fall over the weekend. No MELGOZA. + room spinning dizziness; states not new for him. Wearing home 2L O2. Former smoker. Denies SOB. States has had intermittent hx of afib. Review of Systems Review of Systems: All systems reviewed & are unremarkable except as noted in HPI & below Physical Exam Physical Exam: General: Grossly A&O. NAD. Cooperative. Drowsy. Frail appearing. HEENT: Atraumatic, normocephalic. Will repeat exam of eyes when less drowsy. Pulm: CTAB. -wheezes, -rales, -rhonchi. Clear, diminished.No respiratory distress. Cardiac: IIR, -mrg. No BLE. Abdominal: Nontender, nondistended, soft. Integ: mild dermatitis of bilat shins. Small scab bilat. Msk: L toes s/p amputation. + bilat SLR. TTP at lumbar spine midline. Results & Data Results & Data ([facility]) Vital Signs (Past 12 Hours) Vital Signs telemetry sinus->afib 511AM. 95% on 2L NC. Temp Pulse Pulse Resp BP Pulse Ox 12/02/21 04:38 36.5 C 86 137/75 95 12/01/21 23:59 74 12/01/21 22:35 36.8 C 70 146/77 H 95 12/01/21 19:35 36.4 C L 65 69 18 157/81 H 100 Laboratory Results wbc 10.46, borderline. Hb 11.9 stable. MCV 101.4H. Plts 132, stable. esr 28H. coags wnl. Na 135, stable. K 4.0->5.4. AG 12H. BUN 52. Cr 10.83H. trop 0.07Hx1, at baseline. procalc 0.33. nasal mrsa neg. 12/01 ct abd: lumbar stenosis L4-L5. can't exclude discitis. cxr: Decreased inspiration with minimal right basilar atelectasis. Slightly patchy per my interpretation. 12/01 lumbar MRI: see a/p. 12/[address] read pending. 12/01 BC pending. ecg: afib. Resident Activity Tracking Resident Involvement: Resident Care Provided Care Provided: Adult Hospital Medicine (1) Anemia, chronic renal failure Chronic kidney disease stage: unspecified stage Qualified Code(s): N18.9 - Chronic kidney disease, unspecified; D63.1 - Anemia in chronic kidney disease (2) CAD (coronary artery disease) Associated angina: without angina Coronary Disease-Associated Artery/Lesion type: [place] artery [place] vs. transplanted heart: [place] heart Qualified Code(s): I25.10 - Atherosclerotic heart disease of [place] coronary artery wit hout angina pectoris (3) Spinal stenosis Spinal region: lumbosacral Qualified Code(s): M48.07 - Spinal stenosis, lumbosacral region
[2021-12-02 07:29] LABS: BUN Creatinine Ratio 4.8 (10-20); Calcium 8.9 mg/dl (8.5-10.1); Creatinine Clr Calc Pharmacy 7.5 ml/min; Est GFR (African American) 4.7 ml/min; Est GFR (Non-African American) 4.1 ml/min; Potassium 5.4 mmol/L (3.5-5.1)
[2021-12-02] MEDS: FAMOTIDINE 20 MG TAB PO SCH (08:29)
[2021-12-02] MEDS: CALCIUM ACETATE 667 MG CAP/TAB PO SCH (08:29)
[2021-12-02] MEDS: AMIODARONE 200 MG TAB PO SCH (08:29)
[2021-12-02] MEDS: ACETAMINOPHEN 500 MG TAB PO SCH ×2 (08:29→20:04)
[2021-12-02] MEDS: PANTOprazole 40 MG TAB PO SCH (08:30)
[2021-12-02] MEDS: PREGABALIN 50 MG CAP PO SCH (08:30)
[2021-12-02] MEDS: SENNA 8.6 MG TAB PO SCH (08:30)
[2021-12-02] MEDS: NEPHROCAPS PO SCH (08:30)
[2021-12-02] MEDS: DICLOFENAC SOD 1% GEL 100 GM TUBE EXT SCH ×4 (08:31→20:05)
[2021-12-02] MEDS: UMECLIDINIUM BROMIDE 62.5MCG/BLISTER 7 PUFFS/INHALER INH SCH (08:32)
[2021-12-02] MEDS: LIDOCAINE 5% 1 PATCH TD SCH (08:32)
[2021-12-02] MEDS: FLUTICASONE/VILANTEROL 200/25MCG 14 PUFFS/INHALER INH SCH (08:32)
[2021-12-02] MEDS ORDERED: SODIUM CHLORIDE 0.9% 1000ML 1,000 ML IV PRN (09:06)
[2021-12-02] MEDS ORDERED: EPOETIN ALFA 4,000 UNIT/ML VIAL IV SCH (09:30)
--- NOTE | 2021-12-02 09:41 | CT Scan Report ---
CT lumbar spine wo con CLINICAL HISTORY: Chronic low back pain. Worsening symptoms with inability to ambulate. Evidence for chronic discitis by MRI. COMPARISON STUDY: MRI of the lumbar spine from 12/01/2021 CT DOSE: 813.25 mGy.cm TECHNIQUE: Standard CT of the Lumbar Spine was performed without IV contrast. A dose lowering techni que was utilized adhering to the principles of ALARA. FINDINGS: Bones: Old anterior wedge deformity is again seen of the superior endplate of L2. There is no evidenc e for an acute fracture. There is minimal retrolisthesis of L4 on L5. The heights of the remaining chris mbar vertebral bodies are maintained. The remaining lumbar vertebral bodies are in anatomic alignment . Disc spaces: As seen on the MRI, there is widening of the disc space at L4-5 with cortical irregulari ty and bony sclerosis present involving the inferior endplate of L4 and the superior endplate of L5. There is no evidence for osteomyelitis on the MRI. The lucency within the disc space extends posterio rly through the posterior elements and into the facet joints bilaterally with the findings characteri stic of a pseudoarthrosis. Extensive hypertrophic facet joint disease is present with thickening of l igamentum flavum bilaterally. The combination of these findings produce marked central canal stenosis is seen on MRI. Moderate to marked disc space narrowing is present at T12-L1, L1-L2 and L5-S1. Segmental spinal steno sis is also seen as delineated on the MRI. Facet joints: Hypertrophic facet joint disease is also seen at multiple levels. This contributes to t he spinal stenosis present. The findings are again delineated on the previous MRI. Degenerative townsend es are present involving the SI joints bilaterally. Soft tissues: The prevertebral soft tissues are within normal limits. Aortobiiliac graft is in place. IMPRESSION: Compared to the MRI examination, there is no significant interval change with evidence fo r chronic discitis at L4-5. Marked central canal stenosis present at this level as delineated above a nd as described on the MRI. There is a pseudoarthrosis present at this level bilaterally related to p osterior extension of the findings into the posterior elements bilaterally. Findings are characterist ic of instability in the spinal decompression and fusion should be considered. ACT 112: Negative or not required by law. Electronically signed by: Aydin Fine M.D. 12/02/2021 9:40 AM
--- NOTE | 2021-12-02 09:43 | Pharmacy Report ---
Pharmacy [facility] Short Note - Date of Service December 02, 2021 - Assessment & Plan Assessment 76 year old M receiving vancomycin and ceftriaxone empirically for L4-L5 discitis. Lumbar spine MRI shows evidence of chronic discitis involving L4-5, no paraspinal abscess seen nor evidence of associated osteomyelitis. ESRD on chronic HD MWF, scheduled for HD today. Orthopedic surgery/nephrology consulted. Day #2 of antimicrobial therapy. Blood cultures x 2 pending. Empiric antibiotics okay at this time. Plan Vancomycin * Will dose by random level in light of patient on chronic HD * Received vancomycin 2250 mg (~22 mg/kg) loading dose yesterday * Random level this morning of 20 mcg/mL at 0616 * Will plan to give 500 mg supplemental dose following HD today with follow-up random level tomorrow morning Ceftriaxone * 2 g IV q24h - appropriate Pharmacy will continue to follow and will adjust dose/frequency as necessary. Thank you.
--- NOTE | 2021-12-02 11:59 | Consultation Report ---
NEPHROLOGY CONSULTATION NOTE DATE OF SERVICE: 12/02/2021 REASON FOR CONSULTATION: Dialysis patient admitted with severe back pain. HISTORY OF PRESENT ILLNESS: The patient is a 76-year-old male with end-stage renal disease, on chron ic hemodialysis Thursday, Thursday, Thursday through his right upper arm AV fistula. His outpatient nep hrologist is Dr. Christina Alcantar. He presented to the hospital yesterday because of severe low back p ain. 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 The low back pain has been getting progressively worse and also radiates to both legs, s lightly more on the left side. At this time, the patient seems very somnolent and was barely able to answer any questions, although he is not unresponsive or confused. He has chronic shortness of anthony th and does not admit having any more shortness of breath than usual. The lower extremity edema seem s to be a lot less than before, but he does have multiple open sores on both feet. He denies having loss of appetite, fever, chills or sweats. He had dialysis on Thursday as per his normal schedule. Bl ood work done earlier today shows slightly high potassium of 5.4 and labs consistent with end-stage r enal disease. At this point, his vital signs appear stable with 2 liters of oxygen, which is not unu sual for him. PAST MEDICAL AND SURGICAL HISTORY: Includes ESRD, on chronic hemodialysis Thursday, Thursday, Thursday; coronary artery disease, status post CABG; chronic right-sided heart failure; prior mesenteric is[place] leading to a subtotal colectomy, end ileostomy and Driss pouch formation; COPD; chronic hypoxi c respiratory failure, on home oxygen 2 liters; AAA repair; AFib, status post ablation procedure; AV fistula; history of stroke; chronic GERD; gout; hyperlipidemia; hypothyroidism; mitral valve repair; cholecystectomy; fem-pop bypass surgery; status post transmetatarsal amputation of right foot. FAMILY HISTORY: Negative for renal disease or dialysis. SOCIAL HISTORY: He is a former smoker. No alcohol. He lives with his sister at this time. He is r etired. He uses oxygen continuous. He has significant limitation with ambulation. ALLERGIES: ALLERGY LIST REVIEWED AND IS PER THE H AND P AND THE RECONCILIATION LIST. MEDICATIONS: Home medication list was also reviewed and is as per the H and P and the reconciliation list. REVIEW OF SYSTEMS: At this point, I was unable to get any meaningful review of systems other than th e fact that he is complaining of severe back pain and as usual has shortness of breath. He was very somnolent, likely because of pain medication given. PHYSICAL EXAMINATION: GENERAL: Elderly white male who appears chronically ill appearing. He is awake, alert, oriented x3, but very somnolent and could not keep his eyes open. HEENT: Mucous membrane is moist. NECK: Supple. No jugular venous distention. CHEST: Bilateral decreased breath sound. Poor inspiratory effort limiting quality of the exam, bila teral occasional rhonchi. CARDIOVASCULAR: S1 and S2 regular. Soft systolic murmur heard. ABDOMEN: Soft, nontender. EXTREMITIES: Show no edema, wrinkled skin secondary to lack of edema now, multiple skin sores. Feat ures of advanced peripheral vascular disease present. NEUROLOGIC: Normal speech. Moving all 4 extremities. LABORATORY TEST: Hemoglobin 11.9, platelet count 132. Sodium 135, potassium 5.4, BUN 52, creatinine 10.8, phosphorus 7.1. ASSESSMENT AND PLAN: A 76-year-old male with end-stage renal disease, on chronic hemodialysis Thursday , Thursday, Thursday through a right upper arm arteriovenous fistula, but also presenting with severe intractable back pain. The patient has very extensive list of medical problems and is frequently adm itted. I have been consulted for dialysis management. 1. End-stage renal disease: As per his schedule, today is his dialysis day and we will do for 3.5 ho urs, take 2.5 kg off. Compared to the previous examination, his volume status seems to be better as he does not seem to have much edema at all. Given the mention of possible surgery or procedure, we w ill not give heparin today. We will give low dose Epogen of 2000 units. His other outpatient medica tions including phosphorus binder should be continued as it is when he is allowed to have food. 2. Intractable back pain: This is as per primary team who has also consulted ortho-spine and we ebrnice l defer to them. Job ID: [id number]
[2021-12-02] MEDS: cefTRIAXone SODIUM 2,000 MG in DEXTROSE 5% 50 ML IV SCH (15:02)
[2021-12-02] MEDS ORDERED: VANCOMYCIN HCL 500 MG in DEXTROSE 5% 100 ML IV ONE (16:00)
[2021-12-02] MEDS ORDERED: HYDROCODONE/ACETAMOPHEN 5/325MG TAB PO PRN (17:40)
[2021-12-02] MEDS ORDERED: HYDROmorphone INJ 0.5 MG/0.5 ML SYR IV PRN (17:40)
[2021-12-02] MEDS: ASPIRIN 81 MG ECTAB PO SCH ×2 (17:42→17:46)
[2021-12-02] MEDS: HEPARIN SOD 5,000 UNIT/0.5 ML VIAL SQ SCH (17:42)
[2021-12-02] MEDS: CLOPIDOGREL BISULFATE 75 MG TAB PO SCH ×2 (17:42→17:46)
[2021-12-02] MEDS ORDERED: SODIUM CHLORIDE 0.9% 1000ML 500 ML IV ONE (18:52)
[2021-12-02] MEDS ORDERED: SODIUM CHLORIDE 0.65% NA SOLN 45 ML (OCEAN) ONE ×2 (19:08→21:11)
[2021-12-02] MEDS: ATORVASTATIN 40 MG TAB PO SCH (20:04)
[2021-12-02] MEDS: PARoxetine HCL 20 MG TAB PO SCH (20:05)
[2021-12-02] MEDS: TEMAZEPAM 15 MG CAPSULE PO SCH (20:05)
[2021-12-02] MEDS: rOPINIRole HCL 0.25 MG TABLET PO SCH (20:05)
[2021-12-02] MEDS: DOCUSATE SODIUM 100 MG CAP PO SCH (20:05)
[2021-12-02] MEDS ORDERED: LIDOCAINE 5% 1 PATCH TD SCH (22:00)
[2021-12-02] MEDS ORDERED: ACETAMINOPHEN 500 MG TAB PO STA (22:06)
[2021-12-03] MEDS: LEVOTHYROXINE SODIUM 88 MCG TABLET PO SCH (05:40)
[2021-12-03] MEDS: HEPARIN SOD 5,000 UNIT/0.5 ML VIAL SQ SCH ×2 (05:40→17:29)
[2021-12-03 07:10] LABS: Basophils # (auto) 0.03 K/uL (0-0.2); Basophils % (auto) 0.3 %; Eosinophils # (auto) 0.19 K/uL (0-0.5); Eosinophils % (auto) 1.9 %; Hematocrit (blood only) 35.9 % (42-52); Hemoglobin 11.5 g/dL (14.0-18.0); Immature Granulocytes # (auto) 0.03 K/uL (0.00-0.02); Immature Granulocytes % (auto) 0.3 %; Lymphocytes # (auto) 1.02 K/uL (1.2-3.4); Lymphocytes % (auto) 10.2 %; Mean Corpuscular Hemoglobin 33.3 pg (25-34); Mean Corpuscular Volume 104.1 fL (80-100); Mean Platelet Volume 9.4 fL (7.4-10.4); Monocytes # (auto) 1.46 K/uL (0.11-0.59); Monocytes % (auto) 14.6 %; Neutrophils # (auto) 7.26 K/uL (1.4-6.5); Neutrophils % (auto) 72.7 %; Platelet Count 112 K/uL (130-400); RDW Coefficient of Variation 17.3 % (11.5-14.5); Red Blood Count 3.45 M/uL (4.7-6.1); White Blood Count 9.99 K/uL (4.8-10.8)
--- NOTE | 2021-12-03 07:17 | Hospitalist Progress Note ---
Date of Service December 03, 2021 Assessment & Plan (1) Intractable low back pain: Plan: 76 y/o M w/ PMHx of pAF, spinal stenosis CAD, CHF, COPD on home 2L O2, ESRD, and ileostomy who presents w/ 1 month of worsening lumbar radiculopathy w/ lumbar CT/MRI concerning for chronic L4-L5 discitis and central spinal stenosis from disc bulge. Intractable low back pain secondary to lumbar radiculopathy Concern of Discitis L4-5 Baseline functional status is poor. Started on empiric IV vanc and rocephin for discitis. Continue. Follow blood cultures, neg to date. MRI L spine: chronic discitis involving the L4-5 level with extensive increased signal seen in bulging of the disc into the spinal canal anteriorly. No paraspinal abscess is seen. WBC upper limit of normal. No infectious clinical symptoms. Pain control - holding narcotics because of somnolence previously. Lyrica 75 mg daily, ESRD dosing. Orthopedics consulted. Discussion ongoing regarding whether to pursue surgical treatment. Patient's sister prefers to be reached at [phone] (cell). Spoke w/ anesthesiology: too high risk because of complex PMHx; if surgery strongly indicated, would recommend transfer to tertiary center. Restarted home asa, plavix. (2) ESRD (end stage renal disease) on dialysis: Plan: M/W/F schedule at [facility] - consulted [facility], assistance appreciated. - s/p dialysis on 12/02/21; some intradialysis hypotension, resolved after - hyperK, hyper phos. Management per nephro. (3) Chronic right-sided CHF (congestive heart failure): Plan: with moderate pulmonary hypertension 05/2021 echo w/ EF 60-65. Mod concentric LVH. Borderline RV enlargement. Moderate LA and RA dilation. moderate aortic valve sclerosis. RVSP elevated at 40-50mmhg. RVSP reduced as assessed by TAPSE Volume appears compensated at this time. Gentle fluid bolus (500 mL) PRN for hyp otension outside of dialysis. 109kg at admission. 99.4kg 12/03/21. (4) Opacity of lung on imaging study: Plan: RLL atelectasis. Per my interpretation, slightly patchy appearing. However, poor inspiratory effort. Procalc 0.33. Incentive spirom. Abx above will cover pulmonary source. Follow clinically. Repeat procalc. (5) Anemia, chronic renal failure: Plan: H/H acceptable at this time. Epo per nephro. Worsening macrocytosis. B12 and folate wnl. (6) Spinal stenosis: Plan: - see above (7) COPD (chronic obstructive pulmonary disease): Plan: - stable, no exacerbation. On home O2, 2 liters. (8) CAD (coronary artery disease): Plan: hx of CABG. No ischemic symptoms at this time trop at baseline continue statin, ASA, plavix (9) Atrial fibrillation: Plan: - continue home regimen amio 200mg PO every other day - converted from sinus to afib 12/02/21 AM. Rate controlled. (10) Ileostomy in place: Plan: - continue routine care (11) Hypothyroidism: Plan: - stable, continue home levothyroxine (12) Peripheral vascular disease: Plan: - hx of fem-pop bipass - will check doppler pulses because of cooler extremities (13) Insomnia: Plan: - PDMP confirms he takes 15-30mg of temazepam nightly. Continue. Plan: FEN: HH, dialysis renal diet code: Full code dispo: med tele ppx: sq heparin q12h 5000u Admission and Anticipated Discharge Date Admission Date: December 01, 2021 Supervising Physician Co-Signing Physician Notes Resident Physician Supervision Note: I independently interviewed and examined the patient and verified the darnell history and physical, reviewed labs and image studies and agree with resident Dr. Sanchez findings and care plan. Subjective Patient is fully awake this morning. He has severe pain at his BLE, starting from feet, going up to thighs and low back. He does not remember me from yesterday. Denies other ROS complaints. No numbness or tingling. No fever/chills. Review of Systems Review of Systems: All systems reviewed & are unremarkable except as noted in HPI & below Physical Exam Physical Exam: General: A&Ox4. NAD. Cooperative. Fully awake. Frail appearing. HEENT: Atraumatic, normocephalic. Pulm: Mild insp crackles at bases. Diminished. Shallow breaths upon sitting up, but improved after rest. No respiratory distress. Cardiac: RRR, -mrg. Trace LE edema on R. Abdominal: Nontender, nondistended, soft. Integ: mild darkened pigmentation of shins. Small scab bilat. Msk: L toes s/p amputation. + bilat SLR. Integ: Bilat shins cool to touch. Results & Data Results & Data ([facility]) Vital Signs (Past 12 Hours) Vital Signs 93-100 on room air. Had soft BP overnight, responded to 500mL NSS bolus, improved from 79/47->97/57->123/68 Temp Pulse Pulse Resp BP Pulse Ox 12/03/21 05:00 36.9 C 63 18 120/60 95 12/03/21 00:50 66 12/03/21 00:17 36.8 C 67 18 123/68 100 12/02/21 19:49 70 20 97/57 L 93 Laboratory Results WB 10.46->9.99. Hb stable 11.5. MCV 101.4->104.1. Plts 112, stable. Na 133, acceptable. K 5.4->5.1. Cr 10.83->7.66. Phos 7.1-6.5. AST 21->70. alk phos 163 stable. b12 folate pending Resident Activity Tracking Resident Involvement: Resident Care Provided Care Provided: Adult Hospital Medicine (1) Anemia, chronic renal failure Chronic kidney disease stage: unspecified stage Qualified Code(s): N18.9 - Chronic kidney disease, unspecified; D63.1 - Anemia in chronic kidney disease (2) CAD (coronary artery disease) Associated angina: without angina Coronary Disease-Associated Artery/Lesion type: [place] artery [place] vs. transplanted heart: [place] heart Qualified Code(s): I25.10 - Atherosclerotic heart disease of [place] coronary artery without angina pectoris (3) Spinal stenosis Spinal region: lumbosacral Qualified Code(s): M48.07 - Spinal stenosis, lumbosacral region
[2021-12-03 07:42] LABS: Albumin Globulin Ratio 1.3 (0.9-2); Albumin Level 3.8 gm/dl (3.4-5.0); BUN Creatinine Ratio 4.6 (10-20); Bilirubin,Total 0.6 mg/dl (0.2-1.0); Calcium 8.8 mg/dl (8.5-10.1); Creatinine Clr Calc Pharmacy 10.3 ml/min; Est GFR (African American) 7.2 ml/min; Est GFR (Non-African American) 6.2 ml/min; Globulin 2.9 gm/dl (2.5-4.0); Magnesium 1.8 mg/dl (1.7-2.4); Phosphorus 6.5 mg/dl (2.5-4.9); Potassium 5.1 mmol/L (3.5-5.1); Total Protein 6.7 gm/dl (6.0-8.3)
[2021-12-03] MEDS: ACETAMINOPHEN 500 MG TAB PO SCH ×2 (08:05→20:41)
[2021-12-03] MEDS: NEPHROCAPS PO SCH (08:10)
[2021-12-03] MEDS: PANTOprazole 40 MG TAB PO SCH (08:10)
[2021-12-03] MEDS: DICLOFENAC SOD 1% GEL 100 GM TUBE EXT SCH ×4 (08:11→20:39)
[2021-12-03] MEDS: FLUTICASONE/VILANTEROL 200/25MCG 14 PUFFS/INHALER INH SCH (08:11)
[2021-12-03] MEDS: UMECLIDINIUM BROMIDE 62.5MCG/BLISTER 7 PUFFS/INHALER INH SCH (08:11)
[2021-12-03] MEDS: CALCIUM ACETATE 667 MG CAP/TAB PO SCH (08:11)
[2021-12-03] MEDS: PREGABALIN 75 MG CAP PO SCH (08:14)
[2021-12-03] MEDS: LIDOCAINE 5% 1 PATCH TD SCH (08:14)
[2021-12-03 10:04] LABS: Folate (Folic Acid) > 22.30 ng/ml (>5.38)
[2021-12-03 10:05] LABS: Vitamin B12 569 pg/ml (211-911)
--- NOTE | 2021-12-03 10:29 | Orthopedic Consultation ---
Date of Consultation December 03, 2021 Assessment & Plan (1) Neurogenic claudication due to lumbar spinal stenosis: Assessment severe spinal stenosis with evidence of instability. Plan had discussion with this patient regarding his MRI and CAT scan findings. He has severe spinal stenosis predominantly at the L4-L5 level followed by L5-S1. There is evidence of significant instability with fluid within the disc space at L4-L5. Undoubtedly this is contributing to his symptom complex specifically with standing as this would collapse the L4-L5 segment and cause marked increase pressure on the traversing nerve roots. My concern of course is his health. He be at increased risk for intraoperative complications as well as postoperative healing issues. We will have further discussion regarding his candidacy for surgery and whether it should not be performed at our institution versus tertiary care center. History of Present Illness Reason for Consultation: Bilateral leg pain Attending Physician: Janis Wang MD History of Present Illness This is a very pleasant 76-year-old male that states he has had the inability ambulate for about 3 to 4 weeks. He does not recall any specific trauma fall or event. Describes pain in bilateral buttocks and lower extremities. He states prior to that time he was able to ambulate without difficulty. That being said he has severe peripheral neuropathy and partial amputation of the right foot secondary to chronic renal disease. Allergies Allergy/AdvReac Type Severity Reaction Status Date / Time oxycodone AdvReac Severe DELIRIUM Verified 09/02/21 01:52 tramadol AdvReac Severe dizziness;a Verified 09/02/21 01:52 nxiety;sob gabapentin AdvReac Intermediate Nausea Verified 09/02/21 01:52 Home Medications Medication Instructions Recorded Confirmed Type calcium acetate(phosphat bind) 667 667 mg PO DAILY 08/23/18 12/01/21 History mg capsule docusate sodium 100 mg capsule 100 mg PO HS 05/31/19 12/01/21 History aspirin 81 mg tablet,delayed 81 mg PO DAILY 05/01/20 12/01/21 History release (Aspirin Low Dose) vitamin B complex and vitamin C 1 mg PO DAILY 05/01/20 12/01/21 History no.20-folic acid 1 mg capsule (Triphrocaps) atorvastatin 40 mg tablet 40 mg PO HS #90 tab 11/13/20 12/01/21 Rx fluticasone furoate 200 1 inh INHALATION QAM #84 ea 11/23/20 12/01/21 Rx mcg-vilanterol 25 mcg/dose inhalation powder (Breo Ellipta) levothyroxine 88 mcg tablet 88 mcg PO DAILY #90 tab 11/23/20 12/01/21 Rx paroxetine HCl 20 mg tablet 20 mg PO HS #90 tab 01/21/21 12/01/21 Rx tiotropium bromide 18 mcg capsule 1 cap INHALATION QAM #1 inh 03/27/21 12/01/21 Rx with inhalation device (Spiriva with HandiHaler) aluminum-mag hydroxide-simethicone 30 ml PO DIRECTED PRN 04/08/21 12/01/21 History 200 mg-200 mg-20 mg/5 mL oral susp ipratropium 0.5 mg-albuterol 3 mg 3 ml INHALATION Q4H PRN 04/08/21 12/01/21 History (2.5 mg base)/3 mL nebulization soln lidocaine 4 % topical patch 1 patch TOPICAL DAILY PRN 04/08/21 12/01/21 History (Aspercreme (lidocaine)) nitroglycerin 0.4 mg sublingual 0.4 mg SUBLINGUAL DIRECTED PRN 04/08/21 12/01/21 History tablet (Nitrostat) ropinirole 0.25 mg tablet 0.25 mg PO HS 04/08/21 12/01/21 History sennosides 8.6 mg tablet (Senokot) 8.6 mg PO DAILY PRN 04/08/21 12/01/21 History acetaminophen 325 mg capsule 650 mg PO QID PRN #30 cap 04/13/21 12/01/21 Rx diclofenac sodium 1 % topical gel 2 g TOPICAL QID #100 g 04/13/21 12/01/21 Rx (Voltaren Arthritis Pain) clopidogrel 75 mg tablet 75 mg PO QDL 05/31/21 12/01/21 History amiodarone 200 mg tablet 200 mg PO Q OTHER DAY #14 tab 07/11/21 12/01/21 Rx pantoprazole 40 mg tablet,delayed 40 mg PO QAM #90 tab 07/11/21 12/01/21 Rx release temazepam 15 mg capsule 15 mg PO HS PRN #60 cap 09/17/21 12/01/21 Rx pregabalin 75 mg capsule (Lyrica) 75 mg PO QAM #30 cap 10/15/21 12/01/21 Rx famotidine 20 mg tablet 20 mg PO 3XWK #90 tab 11/05/21 12/01/21 Rx Patient History Medical History (Updated 12/03/21 @ 10:26 by Kyle Collins DO) AAA (abdominal aortic aneurysm) Anemia, chronic renal failure AV fistula right arm CAD (coronary artery disease) Chronic back pain Chronic GERD Chronic right-sided CHF (congestive heart failure) Chronic ulcer of great toe of left foot with fat layer exposed COPD (chronic obstructive pulmonary disease) CVA (cerebral vascular accident) "NO RESIDUAL EFFECTS" PER RECORDS Dependence on renal dialysis Depression Dermatitis Diastolic CHF DVT (deep venous thrombosis) Elevated troponin Encounter for central line placement GERD (gastroesophageal reflux disease) H/O: gout Hyperlipidemia Hypothyroidism Ileostomy in place 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 (Dr Sj Restrepo) Memory loss or impairment Myocardial infarct, old 2010 Necrosis of colon Orthostatic hypotension Oxygen dependent Peripheral vascular disease Skin ulcers of both feet Small bowel obstruction Valvular disease S/P MVR (2010); ?AVR PER RECORDS Vitamin D deficiency Surgical History (Updated 12/01/21 @ 16:57 by Tan Chacon) Difficult intubation B/L Anteriogram, Right femoral to anterior tibial cadaver vein bypass= 08/06/18= Grade view 4, MAC 3 --> Glidescope #3, ETT 7.5 at [facility] H/O abdominal aortic aneurysm repair 2011 H/O [id number] bypass 2012 H/O colectomy H/O mitral valve repair 2010; ?AVR PER RECORDS Hx of CABG S/P CABG X2 (DURING MVR) 2010 S/P AAA repair S/P ablation of atrial fibrillation S/P cholecystectomy S/P femoral-popliteal bypass surgery S/P MVR (mitral valve repair) Status post transmetatarsal amputation of right foot Family History Mother Essential hypertension Father , age 76 Myocardial infarction Denies family history of Colon cancer Ovarian cancer Prostate cancer Breast cancer Social History Smoking Status: Former smoker Tobacco Type: Cigarettes Years Smoked: 5; Second Hand Exposure: No; Do You Dip or Chew Tobacco: No; Hx Alcohol Use: No Hx Substance Use: No Preferred Language: Libyan Communication Ability: Effective Visual Impairment: No Limitations Hearing Ability: Normal 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: No Beliefs That Will Affect Care: None marital status: / marital status details: 1 daughter Current Living Situation: Family Current Living Situation Comment: Lives with sister 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 He is alert. He exhibits reasonable strength left plantar flexion dorsiflexion he has ankle motion on the right and a forefoot amputation. He is unable to raise his legs off the bed secondary to weakness. He has decreased sensation bilaterally. Deep tendon reflexes diminished. Results & Data ([facility]) Vital Signs (Past 12 Hours) Vital Signs Temp Pulse Pulse Resp BP Pulse Ox 12/03/21 07:31 37.4 C 62 16 109/63 97 12/03/21 07:21 65 12/03/21 05:00 36.9 C 63 18 120/60 95 12/03/21 00:50 66 12/03/21 00:17 36.8 C 67 18 123/68 100
[2021-12-03] MEDS: SENNA 8.6 MG TAB PO SCH (13:43)
[2021-12-03] MEDS: cefTRIAXone SODIUM 2,000 MG in DEXTROSE 5% 50 ML IV SCH (17:27)
[2021-12-03] MEDS: ASPIRIN 81 MG ECTAB PO SCH (17:29)
[2021-12-03] MEDS: CLOPIDOGREL BISULFATE 75 MG TAB PO SCH (17:29)
[2021-12-03] MEDS: DOCUSATE SODIUM 100 MG CAP PO SCH (20:39)
[2021-12-03] MEDS: ATORVASTATIN 40 MG TAB PO SCH (20:40)
[2021-12-03] MEDS: PARoxetine HCL 20 MG TAB PO SCH (20:40)
[2021-12-03] MEDS: rOPINIRole HCL 0.25 MG TABLET PO SCH (20:40)
[2021-12-03] MEDS: TEMAZEPAM 15 MG CAPSULE PO SCH (20:48)
[2021-12-04] MEDS: HEPARIN SOD 5,000 UNIT/0.5 ML VIAL SQ SCH ×2 (05:58→16:36)
[2021-12-04] MEDS: LEVOTHYROXINE SODIUM 88 MCG TABLET PO SCH (05:59)
[2021-12-04] MEDS ORDERED: EPOETIN ALFA 4,000 UNIT/ML VIAL IV ONE (07:00)
[2021-12-04] MEDS ORDERED: SODIUM CHLORIDE 0.9% 1000ML 1,000 ML IV PRN (07:00)
--- NOTE | 2021-12-04 07:21 | Hospitalist Progress Note ---
Date of Service December 04, 2021 Assessment & Plan (1) Intractable low back pain: Plan: 76 y/o M w/ PMHx of pAF, spinal stenosis CAD, CHF, COPD on home 2L O2, ESRD, and ileostomy who presents w/ 1 month of worsening lumbar radiculopathy w/ lumbar CT/MRI concerning for chronic L4-L5 discitis and central spinal stenosis from disc bulge. Intractable low back pain secondary to lumbar radiculopathy Concern of Discitis L4-5 Baseline functional status is poor. Started on empiric IV vanc and rocephin for discitis. Continue. Follow blood cultures, neg to date. MRI L spine: chronic discitis involving the L4-5 level with extensive increased signal seen in bulging of the disc into the spinal canal anteriorly. No paraspinal abscess is seen. WBC upper limit of normal. No infectious clinical symptoms. Pain control - holding narcotics because of somnolence previously. Lyrica 75 mg daily, ESRD dosing. Orthopedics consulted. Discussion ongoing regarding whether to pursue surgical treatment. Patient's sister prefers to be reached at [phone] (cell). Updated sister, but needs further discussion w/ patient and ortho. Spoke w/ anesthesiology: too high risk because of complex PMHx; if surgery str ongly indicated, would recommend transfer to tertiary center. Restarted home asa, plavix. PT/OT ordered. (2) ESRD (end stage renal disease) on dialysis: Plan: M/W/F schedule at [facility] - consulted [facility], assistance appreciated. - s/p dialysis on 12/02/21 (1.3L) and 12/04/21 (1.9L); some intradialysis hypotensi on, resolved after - hyperK, hyper phos. Management per nephro. Continue home PO phos binder. Check Mg, Phos, BMP in AM. (3) Chronic right-sided CHF (congestive heart failure): Plan: With moderate pulmonary hypertension 05/2021 echo w/ EF 60-65. Mod concentric LVH. Borderline RV enlargement. Moderate LA and RA dilation. moderate aortic valve sclerosis. RVSP elevated at 40-50mmhg. RVSP reduced as assessed by TAPSE Volume appears compensated at this time. Gentle fluid bolus (500 mL) PRN for hypotension outside of dialysis. 109kg at admission. 99.4kg 12/04/21. (4) Opacity of lung on imaging study: Plan: RLL atelectasis. Procalc 0.33. Incentive spirom. Abx above (vanc/ceftriaxone) will cover pulmonary source unless pseudomonas. Repeated procalc 1.80. Will repeat cxr. (5) Anemia, chronic renal failure: Plan: H/H acceptable at this time. Epo per nephro. Macrocytic. B12 and folate wnl. (6) Spinal stenosis: Plan: - see above (7) COPD (chronic obstructive pulmonary disease): Plan: - stable, no exacerbation. On home O2, 2 liters. (8) CAD (coronary artery disease): Plan: - hx of CABG. No ischemic symptoms at this time - trop at baseline - continue statin, ASA, plavix (9) Atrial fibrillation: Plan: - continue home regimen amio 200mg PO every other day - converted from sinus to afib 12/02/21 AM. Rate controlled. (10) Ileostomy in place: Plan: - continue routine care (11) Hypothyroidism: Plan: - stable, continue home levothyroxine (12) Peripheral vascular disease: Plan: - hx of fem-pop bypass. continue statin, asa, plavix. (13) Insomnia: Plan: - PDMP confirms he takes 15-30mg of temazepam nightly. Will trial decrease from 15mg to 7.5mg because of excessive drowsiness. Plan: FEN: HH, dialysis renal diet code: Full code dispo: med tele ppx: sq heparin q12h 5000u Admission and Anticipated Discharge Date Admission Date: December 01, 2021 Supervising Physician Co-Signing Physician Notes Resident Physician Supervision Note: I independently interviewed and examined the patient and verified the darnell history and physical, reviewed labs and image studies and agree with resident Dr. Sanchez findings and care plan. Subjective Patient still has 10/10 low back pain that radiates to his feet. No paresthesias. No chest pain, fever, or shortness of breath. Ate 1/4 of the pancakes. No other complaints. Review of Systems Review of Systems: All systems reviewed & are unremarkable except as noted in HPI & below Physical Exam Physical Exam: General: Grossly A&O NAD. Cooperative. Mostly awake, but fell back asleep, arousable. Frail appearing. HEENT: Atraumatic, normocephalic. Pulm: CTAB No respiratory distress. Cardiac: RRR, systolic murmur at pulmonic region Abdominal: Nontender, nondistended, soft. Msk: L toes s/p amputation. Integ: Bilat shins warm. Results & Data Results & Data ([facility]) Vital Signs (Past 12 Hours) Vital Signs 37.6C x1, resolved. 97-100 sat on 2L NC. Vitals reviewed. Temp Pulse Pulse Resp BP Pulse Ox 12/04/21 07:08 64 20 144/73 H 100 12/04/21 04:21 36.6 C 67 18 132/72 97 12/03/21 23:30 84 12/03/21 22:56 36.4 C L 64 18 114/67 97 12/03/21 19:23 36.8 C 63 20 118/57 L 98 Laboratory Results wbc downtrending 9.99->7.68. Hb stable 10.7. Na 135->133->131. K 4.4. Cr 7.66- >9.97. 2/6 blood cultures NG x 48 hours Resident Activity Tracking Resident Involvement: Resident Care Provided Care Provided: Adult Hospital Medicine (1) Anemia, chronic renal failure Chronic kidney disease stage: unspecified stage Qualified Code(s): N18.9 - Chronic kidney disease, unspecified; D63.1 - Anemia in chronic kidney disease (2) CAD (coronary artery disease) Associated angina: without angina Coronary Disease-Associated Artery/Lesion type: [place] artery [place] vs. transplanted heart: [place] heart Qualified Code(s): I25.10 - Atherosclerotic heart disease of [place] coronary artery without angina pectoris (3) Spinal stenosis Spinal region: lumbosacral Qualified Code(s): M48.07 - Spinal stenosis, lumbosacral region
[2021-12-04 07:52] LABS: Basophils # (auto) 0.02 K/uL (0-0.2); Basophils % (auto) 0.3 %; Eosinophils # (auto) 0.32 K/uL (0-0.5); Eosinophils % (auto) 4.2 %; Hematocrit (blood only) 33.5 % (42-52); Hemoglobin 10.7 g/dL (14.0-18.0); Immature Granulocytes # (auto) 0.02 K/uL (0.00-0.02); Immature Granulocytes % (auto) 0.3 %; Lymphocytes # (auto) 0.77 K/uL (1.2-3.4); Mean Corpuscular Hemoglobin 32.5 pg (25-34); Mean Corpuscular Hgb Conc 31.9 g/dL (32-36); Mean Corpuscular Volume 101.8 fL (80-100); Mean Platelet Volume 9.2 fL (7.4-10.4); Monocytes # (auto) 1.44 K/uL (0.11-0.59); Monocytes % (auto) 18.8 %; Neutrophils # (auto) 5.11 K/uL (1.4-6.5); Neutrophils % (auto) 66.4 %; Platelet Count 112 K/uL (130-400); RDW Coefficient of Variation 17.4 % (11.5-14.5); RDW Standard Deviation 64.2 fL (36.4-46.3); Red Blood Count 3.29 M/uL (4.7-6.1); White Blood Count 7.68 K/uL (4.8-10.8)
[2021-12-04 08:19] LABS: Creatinine Clr Calc Pharmacy 7.9 ml/min; Est GFR (African American) 5.2 ml/min; Est GFR (Non-African American) 4.5 ml/min
[2021-12-04 08:20] LABS: BUN Creatinine Ratio 5.4 (10-20); Calcium 8.7 mg/dl (8.5-10.1); Potassium 4.4 mmol/L (3.5-5.1)
[2021-12-04] MEDS: SENNA 8.6 MG TAB PO SCH (10:14)
--- NOTE | 2021-12-04 11:42 | Dialysis Progress Note ---
Date of Service December 04, 2021 Assessment & Plan Admission and Anticipated Discharge Date Admission Date: December 01, 2021 Subjective S---Seen in dialysis. Patient Looks and feels weak with blood pressure low in the 80s systolic range. PHYSICAL EXAMINATION: GENERAL: Elderly white male who appears chronically ill appearing. He is awake, alert, oriented x3, but very somnolent and could not keep his eyes open. HEENT: Mucous membrane is moist. NECK: Supple. No jugular venous distention. CHEST: Bilateral decreased breath sound. Poor inspiratory effort limiting quality of the exam, bilateral occasional rhonchi. CARDIOVASCULAR: S1 and S2 regular. Soft systolic murmur heard. ABDOMEN: Soft, nontender. EXTREMITIES: Show no edema, wrinkled skin secondary to lack of edema now, multiple skin sores. Features of advanced peripheral vascular disease present. NEUROLOGIC: Normal speech. Moving all 4 extremities. LABORATORY TEST: blood work from today reviewed ASSESSMENT AND PLAN: A 76-year-old male with end-stage renal disease, on chronic hemodialysis Thursday, Thursday, Thursday through a right upper arm arteriovenous fistula, but also presenting with severe intractable back pain. The patient has very extensive list of medical problems and is frequently admitted. I have been consulted for dialysis management. 1. End-stage renal disease: As per his schedule, today is his dialysis day and we will do for 3.5 hours, take 2.5 kg off. Compared to the previous examination, his volume status seems to be better as he does not seem to have much edema at all. we will not give heparin today. We will give low dose Epogen of 2000 units. His other outpatient medications including phosphorus binder should be continued as it is when he is allowed to have food. 2. Intractable back pain: This is as per primary team who has also consulted ortho-spine and we will defer to them. Results & Data ([facility]) Vital Signs (Past 12 Hours) Vital Signs Temp Pulse Pulse Pulse Resp BP BP 12/04/21 11:20 57 L 87/53 L 12/04/21 11:00 59 L 94/52 L 12/04/21 10:40 61 85/47 L 12/04/21 10:20 60 85/51 L 12/04/21 10:00 59 L 84/48 L 12/04/21 09:40 59 L 94/49 L 12/04/21 09:20 36.3 C L 84 64 57 L 100/56 L 12/04/21 09:12 36.3 C L 57 L 12/04/21 07:08 64 20 144/73 H 12/04/21 04:21 36.6 C 67 18 132/72 Pulse Ox 12/04/21 11:20 12/04/21 11:00 12/04/21 10:40 12/04/21 10:20 12/04/21 10:00 12/04/21 09:40 12/04/21 09:20 12/04/21 09:12 12/04/21 07:08 100 12/04/21 04:21 97
[2021-12-04] MEDS: AMIODARONE 200 MG TAB PO SCH (12:58)
[2021-12-04] MEDS: FAMOTIDINE 20 MG TAB PO SCH (12:58)
[2021-12-04] MEDS: FLUTICASONE/VILANTEROL 200/25MCG 14 PUFFS/INHALER INH SCH (12:59)
[2021-12-04] MEDS: UMECLIDINIUM BROMIDE 62.5MCG/BLISTER 7 PUFFS/INHALER INH SCH (12:59)
[2021-12-04] MEDS: ACETAMINOPHEN 500 MG TAB PO SCH ×2 (12:59→20:03)
[2021-12-04] MEDS: CALCIUM ACETATE 667 MG CAP/TAB PO SCH (12:59)
[2021-12-04] MEDS: NEPHROCAPS PO SCH (12:59)
[2021-12-04] MEDS: LIDOCAINE 5% 1 PATCH TD SCH (12:59)
[2021-12-04] MEDS: DICLOFENAC SOD 1% GEL 100 GM TUBE EXT SCH ×4 (13:00→20:01)
[2021-12-04] MEDS: PANTOprazole 40 MG TAB PO SCH (13:00)
[2021-12-04] MEDS: PREGABALIN 75 MG CAP PO SCH (13:04)
[2021-12-04] MEDS ORDERED: VANCOMYCIN HCL 500 MG in DEXTROSE 5% 100 ML IV ONE (16:00)
[2021-12-04] MEDS: cefTRIAXone SODIUM 2,000 MG in DEXTROSE 5% 50 ML IV SCH (16:14)
[2021-12-04] MEDS: ASPIRIN 81 MG ECTAB PO SCH (16:36)
[2021-12-04] MEDS: CLOPIDOGREL BISULFATE 75 MG TAB PO SCH (16:36)
--- NOTE | 2021-12-04 18:59 | XRay Report ---
XR chest 1V portable HISTORY: Follow right lower lobe opacity. elevated procal COMPARISON: Chest 12/01/2021. FINDINGS: The left lung apex is partially obscured by the patient's head. No definite pneumothorax. T he heart remains mildly enlarged. There are poststernotomy changes. Slightly rotated study. There is mild central pulmonary vascular congestion without overt edema. Stable blunting of the bilateral cost ophrenic sulci. No definite pleural effusions. Progressive left base airspace opacity. IMPRESSION: 1. Progressive left basilar airspace opacity. This may represent a developing pneumonia and could be secondary to aspiration. 2. Cardiomegaly and mild congestive change. ACT 112: Negative or not required by law. Electronically signed by: Joey Leggett M.D. 12/04/2021 6:58 PM
[2021-12-04] MEDS: DOCUSATE SODIUM 100 MG CAP PO SCH (20:02)
[2021-12-04] MEDS: rOPINIRole HCL 0.25 MG TABLET PO SCH (20:03)
[2021-12-04] MEDS: ATORVASTATIN 40 MG TAB PO SCH (20:03)
[2021-12-04] MEDS: PARoxetine HCL 20 MG TAB PO SCH (20:04)
[2021-12-04] MEDS: TEMAZEPAM 7.5 MG CAPSULE PO SCH (20:17)
[2021-12-05] MEDS: HEPARIN SOD 5,000 UNIT/0.5 ML VIAL SQ SCH ×2 (05:38→16:11)
[2021-12-05] MEDS: LEVOTHYROXINE SODIUM 88 MCG TABLET PO SCH (05:40)
--- NOTE | 2021-12-05 07:00 | Hospitalist Progress Note ---
Date of Service December 05, 2021 Assessment & Plan (1) Intractable low back pain: Plan: 76 y/o M w/ PMHx of pAF, spinal stenosis CAD, CHF, COPD on home 2L O2, ESRD, and ileostomy who presents w/ 1 month of worsening lumbar radiculopathy w/ lumbar CT/MRI concerning for chronic L4-L5 discitis and central spinal stenosis from disc bulge. Intractable low back pain secondary to lumbar radiculopathy Baseline functional status is poor. MRI L spine: chronic discitis involving the L4-5 level with extensive increased signal seen in bulging of the disc into the spinal canal anteriorly. No paraspinal abscess is seen. Started on empiric IV vanc and rocephin for concern for L4-L5 discitis. Blood Cx neg. Discontinue as most likely noninfectious inflammatory discitis. Pain control - holding narcotics because of somnolence previously. Lyrica 75 mg daily, dialysis dosing. Spoke w/ anesthesiology: too high risk because of complex PMHx; if surgery strongly indicated, would recommend transfer to tertiary center. Restarted home asa, plavix. Orthopedics consulted. Patient's sister prefers to be reached at [phone] (cell). Updated plan: reach out to [facility] regarding if candidate for transfer. PT/OT ordered. (2) Aspiration pneumonia: Plan: 12/05/21: Dyspnea, recent cxr findings, and w/ aspiration risks. Treating aspiration pneumonia with Unasyn, renal dialysis dosing 12/04/21 cxr: 1. Progressive left basilar airspace opacity. This may represent a developing pneumonia and could be secondary to aspiration. Procalc 1.80 Reviewed 05/2021 speech therapy recs. Added aspiration/reflux precautions and minced+moist diet. (3) ESRD (end stage renal disease) on dialysis: Plan: M/W/F schedule at [facility] - consulted [facility] [place], assistance appreciated. - s/p dialysis on 12/02/21 (1.3L) and 12/04/21 (1.9L); some intradialysis hypotension, resolved after - hyperK (resolved), hyper phos. Management per nephro. Continue home PO phos binder. (4) Congestion of upper respiratory tract: Plan: - contributing to subjective dyspnea. dyspnea may also be 2/2 possible aspiration pneumonia. - trialing therapies for mucus clearance: flutter valve, incentive spirom, nasal saline, flonase, hypertonic neb. Avoid mucinex given hx of afib. (5) Chronic right-sided CHF (congestive heart failure): Plan: With moderate pulmonary hypertension 05/2021 echo w/ EF 60-65. Mod concentric LVH. Borderline RV enlargement. Moderate LA and RA dilation. moderate aortic valve sclerosis. RVSP elevated at 40-50mmhg. RVSP reduced as assessed by TAPSE Volume appears compensated at this time. (6) Atrial fibrillation: Plan: - continue home regimen amio 200mg PO every other day - transiently in afib 12/02/21 this admission, but since reverted to NSR (7) Spinal stenosis: Plan: - see above (8) Anemia, chronic renal failure: Plan: H/H acceptable at this time. Epo per nephro. Macrocytic. B12 and folate wnl. (9) COPD (chronic obstructive pulmonary disease): Plan: - stable. On home O2, 2 liters. (10) CAD (coronary artery disease): Plan: - hx of CABG. No ischemic symptoms at this time - trop at baseline - continue statin, ASA, plavix (11) Ileostomy in place: Plan: - functioning, continue routine care (12) Hypothyroidism: Plan: - stable, continue home levothyroxine (13) Peripheral vascular disease: Plan: - hx of fem-pop bypass. continue statin, asa, plavix. (14) Insomnia: Plan: - PDMP confirms he takes 15-30mg of temazepam nightly. Will trial decrease from 15mg to 7.5mg because of excessive drowsiness. Plan: FEN: HH, dialysis renal diet. Minced and Moist. code: Full code dispo: med tele ppx: sq heparin q12h 5000u Admission and Anticipated Discharge Date Admission Date: December 01, 2021 Supervising Physician Co-Signing Physician Notes Resident Physician Supervision Note: I independently interviewed and examined the patient and verified the darnell hist ory and physical, reviewed labs and image studies and agree with resident Dr. Sanchez findings and care plan. Subjective Was seen this morning laying at 10 deg angle on bed while eating. Patient complained of dyspnea. Denies aspirating or choking but states he almost did. Bed was elevated slightly and patient was positioned higher up in bed. He has some dyspnea that he attributes to nasal drainage and throat congestion. 4/10 low back pain radiating to feet w/o paresthesias. Requesting in future to have different consistency foods. Eggs and pancake were too soft; he states it is hard to get down because feels as if gets stuck in throat. Also requesting sitting upright during meals. Review of Systems Review of Systems: All systems reviewed & are unremarkable except as noted in HPI & below Physical Exam Physical Exam: General: Grossly A&O NAD. Cooperative. Mostly awake, but fell back asleep, arousable. Frail appearing. HEENT: Atraumatic, normocephalic. Pulm: R mid and lower insp crackles. No wheezes. No resp distress. Faint insp crackles L lower. Transmitted upper airway sounds from neck on expiration Cardiac: RRR, 3/6 systolic murmur at pulmonic region Abdominal: Nontender, nondistended, soft. R abd has ostomy w/ dark brown stool. Msk: L toes s/p amputation. Integ: Bilat shins warm. Skin flaking/peeling (desquamation) at shins. Results & Data Results & Data ([facility]) Vital Signs (Past 12 Hours) Vital Signs vitals stable. 96% on 2L Temp Pulse Pulse Resp BP Pulse Ox 12/05/21 03:03 36.4 C L 64 20 107/54 L 96 12/05/21 00:00 63 12/04/21 23:05 36.8 C 66 20 104/62 95 Laboratory Results cbc reviewed. wbc 10s at admission down to 6.26. Hb 10.2 stable. bmp reviewed. HypoNa stable. 12/01 NG to date Resident Activity Tracking Resident Involvement: Resident Care Provided Care Provided: Adult Hospital Medicine (1) Anemia, chronic renal failure Chronic kidney disease stage: unspecified stage Qualified Code(s): N18.9 - Chronic kidney disease, unspecified; D63.1 - Anemia in chronic kidney disease (2) CAD (coronary artery disease) Associated angina: without angina Coronary Disease-Associated Artery/Lesion type: [place] artery [place] vs. transplanted heart: [place] heart Qualified Code(s): I25.10 - Atherosclerotic heart disease of [place] coronary artery without angina pectoris (3) Spinal stenosis Spinal region: lumbosacral Qualified Code(s): M48.07 - Spinal stenosis, lumbosacral region
[2021-12-05 07:27] LABS: Basophils # (auto) 0.03 K/uL (0-0.2); Basophils % (auto) 0.5 %; Eosinophils # (auto) 0.26 K/uL (0-0.5); Eosinophils % (auto) 4.2 %; Hematocrit (blood only) 31.7 % (42-52); Hemoglobin 10.2 g/dL (14.0-18.0); Immature Granulocytes # (auto) 0.03 K/uL (0.00-0.02); Immature Granulocytes % (auto) 0.5 %; Lymphocytes # (auto) 0.82 K/uL (1.2-3.4); Lymphocytes % (auto) 13.1 %; Mean Corpuscular Hemoglobin 32.8 pg (25-34); Mean Corpuscular Hgb Conc 32.2 g/dL (32-36); Mean Corpuscular Volume 101.9 fL (80-100); Mean Platelet Volume 9.5 fL (7.4-10.4); Monocytes # (auto) 1.41 K/uL (0.11-0.59); Monocytes % (auto) 22.5 %; Neutrophils # (auto) 3.71 K/uL (1.4-6.5); Neutrophils % (auto) 59.2 %; Nucleated RBC # (auto) 0.05 K/uL (0-0); Nucleated RBC % (auto) 0.8 %; Platelet Count 125 K/uL (130-400); RDW Coefficient of Variation 17.6 % (11.5-14.5); Red Blood Count 3.11 M/uL (4.7-6.1); White Blood Count 6.26 K/uL (4.8-10.8)
[2021-12-05 07:58] LABS: Albumin Globulin Ratio 1.3 (0.9-2); Albumin Level 3.4 gm/dl (3.4-5.0); BUN Creatinine Ratio 4.7 (10-20); Bilirubin,Total 0.4 mg/dl (0.2-1.0); Calcium 8.6 mg/dl (8.5-10.1); Creatinine Clr Calc Pharmacy 9.8 ml/min; Est GFR (African American) 6.6 ml/min; Est GFR (Non-African American) 5.7 ml/min; Globulin 2.7 gm/dl (2.5-4.0); Magnesium 1.7 mg/dl (1.7-2.4); Phosphorus 3.7 mg/dl (2.5-4.9); Potassium 3.8 mmol/L (3.5-5.1); Total Protein 6.1 gm/dl (6.0-8.3)
[2021-12-05] MEDS ORDERED: SODIUM CHLORIDE 0.65% NA SOLN 45 ML (OCEAN) NAE ONE (08:39)
[2021-12-05] MEDS ORDERED: SODIUM CHLOR 7% 4 ML NEB NEB ONE (09:00)
[2021-12-05] MEDS ORDERED: FLUTICASONE PROPIONATE NA SPR 16 GM BTL NAE ONE (09:00)
[2021-12-05] MEDS: ACETAMINOPHEN 500 MG TAB PO SCH ×2 (10:36→20:20)
[2021-12-05] MEDS: CALCIUM ACETATE 667 MG CAP/TAB PO SCH (10:38)
[2021-12-05] MEDS: NEPHROCAPS PO SCH (10:38)
[2021-12-05] MEDS: PANTOprazole 40 MG TAB PO SCH (10:38)
[2021-12-05] MEDS: SENNA 8.6 MG TAB PO SCH (10:39)
[2021-12-05] MEDS: LIDOCAINE 5% 1 PATCH TD SCH (10:41)
[2021-12-05] MEDS: DICLOFENAC SOD 1% GEL 100 GM TUBE EXT SCH ×4 (10:42→20:22)
[2021-12-05] MEDS: FLUTICASONE/VILANTEROL 200/25MCG 14 PUFFS/INHALER INH SCH (10:46)
[2021-12-05] MEDS: UMECLIDINIUM BROMIDE 62.5MCG/BLISTER 7 PUFFS/INHALER INH SCH (10:47)
[2021-12-05] MEDS: PREGABALIN 75 MG CAP PO SCH (10:50)
--- NOTE | 2021-12-05 14:34 | Orthopedic Progress Note ---
Date of Service December 05, 2021 Assessment & Plan (1) Neurogenic claudication due to lumbar spinal stenosis: Plan: I had a long discussion today with the patient's sister. We discussed his spinal pathology and its contribution to his leg pain and inability to ambulate. I reviewed with her anesthesias has in situ have him undergo general anesthesia secondary to significant health history. We discussed possible consultation with a tertiary care center in this case it would be [place]. The thought is that perhaps the initial 4 way into this opinion could begin with phone interviews and review of records versus him being transported to the institution. This is a reasonable consideration. We did discuss utilizing pain management further recommendations if surgery does not occur. Admission and Anticipated Discharge Date Admission Date: December 01, 2021 Results & Data ([facility]) Vital Signs (Past 12 Hours) Vital Signs Temp Pulse Pulse Resp BP Pulse Ox 12/05/21 11:12 36.5 C 61 16 128/77 98 12/05/21 09:35 60 18 98 12/05/21 07:38 36.6 C 64 16 122/57 L 98 12/05/21 07:26 61 12/05/21 03:03 36.4 C L 64 20 107/54 L 96
[2021-12-05] MEDS: cefTRIAXone SODIUM 2,000 MG in DEXTROSE 5% 50 ML IV SCH (16:08)
[2021-12-05] MEDS: ASPIRIN 81 MG ECTAB PO SCH (16:12)
[2021-12-05] MEDS: CLOPIDOGREL BISULFATE 75 MG TAB PO SCH (16:12)
[2021-12-05] MEDS: AMPICILLIN/SULBACTAM SOD 3,000 MG in 0.9 % SODIUM CHLORIDE 100 ML IV SCH (19:27)
[2021-12-05] MEDS: rOPINIRole HCL 0.25 MG TABLET PO SCH (20:19)
[2021-12-05] MEDS: TEMAZEPAM 7.5 MG CAPSULE PO SCH (20:20)
[2021-12-05] MEDS: ATORVASTATIN 40 MG TAB PO SCH (20:21)
[2021-12-05] MEDS: PARoxetine HCL 20 MG TAB PO SCH (20:21)
[2021-12-05] MEDS: DOCUSATE SODIUM 100 MG CAP PO SCH (20:21)
[2021-12-06] MEDS: LEVOTHYROXINE SODIUM 88 MCG TABLET PO SCH (06:08)
[2021-12-06] MEDS: HEPARIN SOD 5,000 UNIT/0.5 ML VIAL SQ SCH ×2 (06:09→18:26)
[2021-12-06] MEDS ORDERED: SODIUM CHLORIDE 0.9% 1000ML 1,000 ML IV PRN (07:00)
[2021-12-06] MEDS ORDERED: EPOETIN ALFA 4,000 UNIT/ML VIAL IV ONE (07:00)
[2021-12-06 07:08] LABS: Basophils # (auto) 0.03 K/uL (0-0.2); Basophils % (auto) 0.5 %; Eosinophils % (auto) 4.8 %; Hemoglobin 10.2 g/dL (14.0-18.0); Immature Granulocytes # (auto) 0.04 K/uL (0.00-0.02); Immature Granulocytes % (auto) 0.6 %; Lymphocytes # (auto) 1.02 K/uL (1.2-3.4); Lymphocytes % (auto) 16.2 %; Mean Corpuscular Hemoglobin 32.4 pg (25-34); Mean Corpuscular Hgb Conc 31.9 g/dL (32-36); Mean Corpuscular Volume 101.6 fL (80-100); Mean Platelet Volume 9.4 fL (7.4-10.4); Monocytes # (auto) 1.23 K/uL (0.11-0.59); Monocytes % (auto) 19.5 %; Neutrophils # (auto) 3.69 K/uL (1.4-6.5); Neutrophils % (auto) 58.4 %; Nucleated RBC # (auto) 0.04 K/uL (0-0); Nucleated RBC % (auto) 0.6 %; Platelet Count 127 K/uL (130-400); RDW Coefficient of Variation 17.6 % (11.5-14.5); RDW Standard Deviation 63.8 fL (36.4-46.3); Red Blood Count 3.15 M/uL (4.7-6.1); White Blood Count 6.31 K/uL (4.8-10.8)
[2021-12-06 08:00] LABS: BUN Creatinine Ratio 5.1 (10-20); Calcium 8.9 mg/dl (8.5-10.1); Creatinine Clr Calc Pharmacy 7.7 ml/min; Est GFR (African American) 4.9 ml/min; Est GFR (Non-African American) 4.2 ml/min; Potassium 3.9 mmol/L (3.5-5.1)
[2021-12-06] MEDS: FAMOTIDINE 20 MG TAB PO SCH (08:43)
[2021-12-06] MEDS: ACETAMINOPHEN 500 MG TAB PO SCH ×2 (08:43→20:12)
[2021-12-06] MEDS: LIDOCAINE 5% 1 PATCH TD SCH (08:44)
[2021-12-06] MEDS: PANTOprazole 40 MG TAB PO SCH (08:44)
[2021-12-06] MEDS: NEPHROCAPS PO SCH (08:44)
[2021-12-06] MEDS: CALCIUM ACETATE 667 MG CAP/TAB PO SCH (08:44)
[2021-12-06] MEDS: AMIODARONE 200 MG TAB PO SCH (08:44)
[2021-12-06] MEDS: UMECLIDINIUM BROMIDE 62.5MCG/BLISTER 7 PUFFS/INHALER INH SCH (08:45)
[2021-12-06] MEDS: FLUTICASONE/VILANTEROL 200/25MCG 14 PUFFS/INHALER INH SCH (08:45)
[2021-12-06] MEDS: DICLOFENAC SOD 1% GEL 100 GM TUBE EXT SCH ×4 (08:46→20:13)
[2021-12-06] MEDS: PREGABALIN 75 MG CAP PO SCH (08:48)
[2021-12-06] MEDS: SENNA 8.6 MG TAB PO SCH (08:59)
--- NOTE | 2021-12-06 11:42 | Hospitalist Progress Note ---
Date of Service December 06, 2021 Assessment & Plan (1) Intractable low back pain: Plan: 76 y/o M w/ PMHx of pAF, spinal stenosis CAD, CHF, COPD on home 2L O2, ESRD, and ileostomy who presents w/ 1 month of worsening lumbar radiculopathy w/ lumbar CT/MRI concerning for chronic L4-L5 discitis and central spinal stenosis from disc bulge. Neurogenic claudication in the setting of lumbar spinal stenosis: - MRI L-spine demonstrating chronic discitis appearance involving L4-L5 level with extensive increased signal in bulging of the disc into the spinal canal anteriorly no paraspinal abscess noticed - Initially started on IV vancomycin and Rocephin for concern of discitis discontinued in the setting of noninflammatory/noninfectious etiology - Working with PT and OT - Lyrica 75 mg daily (renally dosed) in the setting of dialysis - Orthopedics consulted. Patient's sister prefers to be reached at [phone] (cell) - Spoke w/ anesthesiology: too high risk because of complex PMHx - Following discussions with [facility] concern that patient would not be a surgical candidate following transfer and therefore at this time will not transfer - Trial of transition to Cymbalta for chronic pain control, will discontinue Paxil - PT/OT ordered. Aspiration pneumonia: - Concerns for aspiration pneumonia; h/o aspiration demonstrated on speech evaluation previously in May 2021 - Chest x-ray on 12/05 demonstrating concern for progressive left basilar airspace opacity - Pro-Rex 1.8 - Started on Unasyn renal dosing for risk of aspiration pneumonia ESRD: - M/W/F schedule at [facility] (continue while inpatient) - hyperK (resolved), hyper phos. - Continue home PO phos binder. Chronic right CHF: - With moderate pulmonary hypertension - 05/2021 echo w/ EF 60-65. Mod concentric LVH. Borderline RV enlargement. Moderate LA and RA dilation. moderate aortic valve sclerosis. RVSP elevated at 40-50mmhg. RVSP reduced as assessed by TAPSE - Volume appears compensated at this time. Atrial Fibrillation: - continue home regimen amio 200mg PO every other day - transiently in afib 12/02/21 this admission, but since reverted to NSR Anemia: - H/H acceptable at this time. Epo per nephro. - Macrocytic. B12 and folate wnl. COPD: - On chronic oxygen supplementation at 2 L/min - Does not appear to be in acute exacerbation at this time Coronary Artery Disease: - hx of CABG. No ischemic symptoms at this time - trop at baseline - continue statin, ASA, plavix Hypothyroidism: - stable, continue home levothyroxine Peripheral Artery Disease: - hx of fem-pop bypass. continue statin, asa, plavix Insomnia: - PDMP confirms he takes 15-30mg of temazepam nightly. Will trial decrease from 15mg to 7.5mg because of excessive drowsiness. Diet: HH, dialysis renal diet. Minced and Moist. code: Full code DVT ppx: sq heparin q12h 5000u Dispo: will need rehab placement (2) Aspiration pneumonia: (3) ESRD (end stage renal disease) on dialysis: (4) Chronic right-sided CHF (congestive heart failure): (5) Atrial fibrillation: (6) Spinal stenosis: (7) Anemia, chronic renal failure: (8) COPD (chronic obstructive pulmonary disease): (9) CAD (coronary artery disease): (10) Ileostomy in place: (11) Hypothyroidism: (12) Peripheral vascular disease: (13) Insomnia: Admission and Anticipated Discharge Date Admission Date: December 01, 2021 Supervising Physician Co-Signing Physician Notes Resident Physician Supervision Note: I independently interviewed and examined the patient and verified the darnell history and physical, reviewed labs and image studies and agree with resident Dr. Juarez findings and care plan. Subjective Patient seen this morning, notes that his pain is somewhat improved at this point and he has some feeling in his feet that was not there previously. Continues to desire potential evaluation for surgery to help resolve back problems and improve quality of life. Review of Systems Review of Systems: All systems reviewed & are unremarkable except as noted in Subjective Physical Exam Constitutional: WD/WN, vitals as above Eyes: PERRL, conjunctivae normal, anicteric sclerae Respiratory: normal respiratory effort, lungs clear to auscultation Auscultation: no crackles, no rales, no rhonchi and no wheezes Cardiovascular: Rate/Rhythm: regular rate and regular rhythm Heart Sounds: no gallop, no murmur and no cardiac rub Vessels: normal peripheral pulses; no JVD Extremities: no edema Neurologic: PERRL, EOMI, accommodation nl, no face palsy, no dysarthria Psychiatric: Orientation: alert and oriented x 3 Results & Data Results & Data ([facility]) Vital Signs (Past 12 Hours) Vital Signs Temp Pulse Pulse Resp BP Pulse Ox 12/06/21 11:35 36.6 C 57 L 18 140/68 99 12/06/21 07:54 36.6 C 64 18 164/70 H 97 12/06/21 07:23 59 L 12/06/21 04:00 36.6 C 60 18 124/58 L 95 Laboratory Results 12/06/21 12/06/21 Range/Units 06:24 06:24 WBC 6.31 (4.8-10.8) K/uL RBC 3.15 L (4.7-6.1) M/uL Hgb 10.2 L (14.0-18.0) g/dL Hct 32.0 L (42-52) % MCV 101.6 H (80-100) fL MCH 32.4 (25-34) pg MCHC 31.9 L (32-36) g/dL RDW Std Deviation 63.8 H (36.4-46.3) fL RDW Coeff of Jolanta 17.6 H (11.5-14.5) % Plt Count 127 L (130-400) K/uL MPV 9.4 (7.4-10.4) fL Immature Gran % (Auto) 0.6 % Neut % (Auto) 58.4 % Lymph % (Auto) 16.2 % [place] % (Auto) 19.5 % Eos % (Auto) 4.8 % Baso % (Auto) 0.5 % Neut # (Auto) 3.69 (1.4-6.5) K/uL Lymph # (Auto) 1.02 L (1.2-3.4) K/uL [place] # (Auto) 1.23 H (0.11-0.59) K/uL Eos # (Auto) 0.30 (0-0.5) K/uL Baso # (Auto) 0.03 (0-0.2) K/uL Immature Gran # (Auto) 0.04 H (0.00-0.02) K/uL Absolute Nucleated RBC 0.04 H (0-0) K/uL Nucleated RBC % (auto) 0.6 % Sodium 132 L (136-145) mmol/L Potassium 3.9 (3.5-5.1) mmol/L Chloride 96 L (98-107) mmol/L Carbon Dioxide 23 (21-32) mmol/L Anion Gap 13 H (3-11) BUN 54 H (6-23) mg/dl Creatinine 10.56 H* D (0.6-1.4) mg/dl Est Cr Clr Drug Dosing 7.7 ml/min Est GFR ( Amer) 4.9 ml/min Est GFR (Non-Af Amer) 4.2 ml/min BUN/Creatinine Ratio 5.1 L (10-20) Glucose 81 (70-99(Fasting)) mg/dl Calcium 8.9 (8.5-10.1) mg/dl Medications Administered Current Inpatient Medications Acetaminophen (Acetaminophen 500 Mg Tab) 1,000 mg PO BID [facility] Stop: 12/31/21 20:59 Last Admin: 12/06/21 08:43 Dose: 1,000 mg Documented by: Albuterol (Albut/Ipratrop 3mg/0.5mg Neb 3 Ml Vial) 3 ml INH Q4R PRN; Protocol PRN Reason: Shortness Of Breath Stop: 12/31/21 18:47 Amiodarone HCl (Amiodarone 200 Mg Tab) 200 mg PO Q2D@0900 [facility] Stop: 01/01/22 08:59 Last Admin: 12/06/21 08:44 Dose: 200 mg Documented by: Aspirin (Aspirin 81 Mg Ectab) 81 mg PO Q24H [facility] Stop: 01/01/22 16:59 Last Admin: 12/05/21 16:12 Dose: 81 mg Documented by: Atorvastatin Calcium (Atorvastatin 40 Mg Tab) 40 mg PO HS [facility] Stop: 12/31/21 20:59 Last Admin: 12/05/21 20:21 Dose: 40 mg Documented by: Calcium Acetate (Calcium Acetate 667 Mg Cap/Tab) 667 mg PO DAILY [facility] Stop: 01/01/22 08:59 Last Admin: 12/06/21 08:44 Dose: 667 mg Documented by: Clopidogrel Bisulfate (Clopidogrel Bisulfate 75 Mg Tab) 75 mg PO Q24H [facility] Stop: 01/01/22 16:59 Last Admin: 12/05/21 16:12 Dose: 75 mg Documented by: Diclofenac Sodium (Diclofenac Sod 1% Gel 100 Gm Tube) 2 gm EXT QID [facility] Stop: 12/31/21 18:47 Last Admin: 12/06/21 08:46 Dose: 2 gm Documented by: Docusate Sodium (Docusate Sodium 100 Mg Cap) 100 mg PO HS [facility] Stop: 12/31/21 20:59 Last Admin: 12/05/21 20:21 Dose: 100 mg Documented by: Famotidine (Famotidine 20 Mg Tab) 20 mg PO MoWeFr@0900 [facility] Stop: 01/01/22 08:59 Last Admin: 12/06/21 08:43 Dose: 20 mg Documented by: Fluticasone/Vilanterol (Fluticasone/Vilanterol 200/25mcg 14 Puffs/Inhaler) 1 puffs INH [facility] Stop: 01/01/22 08:59 Last Admin: 12/06/21 08:45 Dose: 1 puffs Documented by: Heparin Sodium (Porcine) (Heparin Sod 5,000 Unit/0.5 Ml Vial) 5,000 units SQ Q12H [facility] Stop: 01/01/22 16:59 Last Admin: 12/06/21 06:09 Dose: 5,000 units Documented by: Ampicillin Sodium/Sulbactam Sodium 3,000 mg/ Sodium Chloride 108 mls @ 200 mls/hr IV Q24H [facility]; Protocol Stop: 12/14/21 23:59 Last Infusion: 12/05/21 20:27 Dose: Infused Documented by: Levothyroxine Sodium (Levothyroxine Sodium 88 Mcg Tablet) 88 mcg PO DAILYBB [facility] Stop: 01/01/22 06:29 Last Admin: 12/06/21 06:08 Dose: 88 mcg Documented by: Lidocaine (Lidocaine 5% 1 Patch) [facility] Stop: 01/01/22 08:59 Last Admin: 12/06/21 08:44 Dose: 1 patch Documented by: Miscellaneous (Remove Lidoderm Patch) 1 ea N/A DAILY@2100 [facility] Stop: 12/31/21 20:59 Last Admin: 12/05/21 20:27 Dose: Not Given Documented by: Nitroglycerin (Nitroglycerin Sl 0.4 Mg/Tab Tab) 0.4 mg SL UD PRN PRN Reason: Chest Pain Stop: 12/31/21 18:47 Ondansetron HCl (Ondansetron Inj 2 Mg/Ml 2 Ml Vial) 4 mg IV Q6H PRN PRN Reason: Nausea Stop: 12/31/21 18:47 Last Admin: 12/02/21 20:24 Dose: 4 mg Documented by: Pantoprazole Sodium (Pantoprazole 40 Mg Tab) 40 mg PO QAM [facility] Stop: 01/01/22 08:59 Last Admin: 12/06/21 08:44 Dose: 40 mg Documented by: Paroxetine HCl (Paroxetine Hcl 20 Mg Tab) 20 mg PO [facility] Stop: 12/31/21 20:59 Last Admin: 12/05/21 20:21 Dose: 20 mg Documented by: Pregabalin (Pregabalin 75 Mg Cap) 75 mg PO DAILY [facility] Stop: 01/02/22 08:59 Last Admin: 12/06/21 08:48 Dose: 75 mg Documented by: Ropinirole HCl (Ropinirole Hcl 0.25 Mg Tablet) 0.25 mg PO [facility] Stop: 12/31/21 20:59 Last Admin: 12/05/21 20:19 Dose: 0.25 mg Documented by: Sennosides (Senna 8.6 Mg Tab) 8.6 mg PO DAILY [facility] Stop: 01/01/22 08:59 Last Admin: 12/06/21 08:59 Dose: Not Given Documented by: Temazepam (Temazepam 7.5 Mg Capsule) 7.5 mg PO [facility] Stop: 01/03/22 20:59 Last Admin: 12/05/21 20:20 Dose: 7.5 mg Documented by: Umeclidinium [place] (Umeclidinium [place] 62.5mcg/Blister 7 Puffs/Inhaler) 1 puffs INH [facility]; Protocol Stop: 01/01/22 08:59 Last Admin: 12/06/21 08:45 Dose: 1 puffs Documented by: Vitamin B Complex/Folic Acid (Nephrocaps) 1 cap PO DAILY [facility] Stop: 01/01/22 08:59 Last Admin: 12/06/21 08:44 Dose: 1 cap Documented by: Resident Activity Tracking Resident Involvement: Resident Care Provided Care Provided: Adult [facility] Medicine (1) Anemia, chronic renal failure Chronic kidney disease stage: unspecified stage Qualified Code(s): N18.9 - Chronic kidney disease, unspecified; D63.1 - Anemia in chronic kidney disease (2) CAD (coronary artery disease) Associated angina: without angina Coronary Disease-Associated Artery/Lesion type: [place] artery [place] vs. transplanted heart: [place] heart Qualified Code(s): I25.10 - Atherosclerotic heart disease of [place] coronary artery without angina pectoris (3) Spinal stenosis Spinal region: lumbosacral Qualified Code(s): M48.07 - Spinal stenosis, lumbosacral region
--- NOTE | 2021-12-06 13:35 | Nephrology Progress Note ---
Date of Service December 06, 2021 Assessment & Plan Admission and Anticipated Discharge Date Admission Date: December 01, 2021 Subjective Subjective S---Seen for dialysis. Patient Looks and feels weak with blood pressure low in the 80s systolic range. PHYSICAL EXAMINATION: GENERAL: Elderly white male who appears chronically ill appearing. He is awake, alert, oriented x3, but very somnolent and could not keep his eyes open. HEENT: Mucous membrane is moist. NECK: Supple. No jugular venous distention. CHEST: Bilateral decreased breath sound. Poor inspiratory effort limiting quality of the exam, bilateral occasional rhonchi. CARDIOVASCULAR: S1 and S2 regular. Soft systolic murmur heard. ABDOMEN: Soft, nontender. EXTREMITIES: Show no edema, wrinkled skin secondary to lack of edema now, multiple skin sores. Features of advanced peripheral vascular disease present. NEUROLOGIC: Normal speech. Moving all 4 extremities. LABORATORY TEST: blood work from today reviewed ASSESSMENT AND PLAN: A 76-year-old male with end-stage renal disease, on chronic hemodialysis Thursday, Thursday, Thursday through a right upper arm arteriovenous fistula, but also presenting with severe intractable back pain. The patient has very extensive list of medical problems and is frequently admitted. I have been consulted for dialysis management. 1. End-stage renal disease: As per his schedule, today is his dialysis day and we will do for 3.5 hours, take 2.5 kg off. Compared to the previous examination, his volume status seems to be better as he does not seem to have much edema at all. we will not give heparin today. We will give low dose Epogen of 4000 units. His other outpatient medications including phosphorus binder should be continued as it is when he is allowed to have food. 2. Intractable back pain: This is as per primary team who has also consulted ortho-spine and we will defer to them. Results & Data ([facility]) Vital Signs (Past 12 Hours) Vital Signs Temp Pulse Pulse Pulse Resp BP BP 12/06/21 13:00 55 L 143/61 H 12/06/21 12:40 56 L 139/56 L 12/06/21 12:20 57 L 114/47 L 12/06/21 12:00 57 L 172/84 H 12/06/21 11:40 56 L 150/58 H 12/06/21 11:35 36.6 C 57 L 18 140/68 12/06/21 11:31 56 L 124/60 12/06/21 11:20 36.5 C 57 L 12/06/21 07:54 36.6 C 64 18 164/70 H 12/06/21 07:23 59 L 12/06/21 04:00 36.6 C 60 18 124/58 L Pulse Ox 12/06/21 13:00 12/06/21 12:40 12/06/21 12:20 12/06/21 12:00 12/06/21 11:40 12/06/21 11:35 99 12/06/21 11:31 12/06/21 11:20 12/06/21 07:54 97 12/06/21 07:23 12/06/21 04:00 95
[2021-12-06] MEDS: CLOPIDOGREL BISULFATE 75 MG TAB PO SCH (18:26)
[2021-12-06] MEDS: ASPIRIN 81 MG ECTAB PO SCH (18:27)
[2021-12-06] MEDS: AMPICILLIN/SULBACTAM SOD 3,000 MG in 0.9 % SODIUM CHLORIDE 100 ML IV SCH (18:27)
[2021-12-06] MEDS: rOPINIRole HCL 0.25 MG TABLET PO SCH (20:13)
[2021-12-06] MEDS: DOCUSATE SODIUM 100 MG CAP PO SCH (20:13)
[2021-12-06] MEDS: ATORVASTATIN 40 MG TAB PO SCH (20:14)
[2021-12-06] MEDS: TEMAZEPAM 7.5 MG CAPSULE PO SCH (20:16)
[2021-12-07] MEDS: HEPARIN SOD 5,000 UNIT/0.5 ML VIAL SQ SCH ×2 (05:53→18:13)
[2021-12-07] MEDS: LEVOTHYROXINE SODIUM 88 MCG TABLET PO SCH (05:54)
[2021-12-07 06:48] LABS: Basophils # (auto) 0.02 K/uL (0-0.2); Basophils % (auto) 0.3 %; Eosinophils # (auto) 0.44 K/uL (0-0.5); Eosinophils % (auto) 5.9 %; Hematocrit (blood only) 33.6 % (42-52); Hemoglobin 10.9 g/dL (14.0-18.0); Immature Granulocytes # (auto) 0.12 K/uL (0.00-0.02); Immature Granulocytes % (auto) 1.6 %; Lymphocytes # (auto) 1.76 K/uL (1.2-3.4); Lymphocytes % (auto) 23.5 %; Mean Corpuscular Hemoglobin 32.9 pg (25-34); Mean Corpuscular Hgb Conc 32.4 g/dL (32-36); Mean Corpuscular Volume 101.5 fL (80-100); Mean Platelet Volume 8.8 fL (7.4-10.4); Monocytes % (auto) 10.7 %; Neutrophils # (auto) 4.36 K/uL (1.4-6.5); Nucleated RBC # (auto) 0.07 K/uL (0-0); Nucleated RBC % (auto) 0.9 %; Platelet Count 128 K/uL (130-400); RDW Coefficient of Variation 17.6 % (11.5-14.5); RDW Standard Deviation 62.9 fL (36.4-46.3); Red Blood Count 3.31 M/uL (4.7-6.1)
[2021-12-07 07:41] LABS: BUN Creatinine Ratio 4.3 (10-20); Creatinine Clr Calc Pharmacy 11.1 ml/min; Est GFR (African American) 7.7 ml/min; Est GFR (Non-African American) 6.6 ml/min; Potassium 3.5 mmol/L (3.5-5.1)
[2021-12-07] MEDS: PANTOprazole 40 MG TAB PO SCH (09:05)
[2021-12-07] MEDS: CALCIUM ACETATE 667 MG CAP/TAB PO SCH (09:05)
[2021-12-07] MEDS: SENNA 8.6 MG TAB PO SCH (09:05)
[2021-12-07] MEDS: ACETAMINOPHEN 500 MG TAB PO SCH ×2 (09:06→20:41)
[2021-12-07] MEDS: DULoxetine HCL 30 MG CAP PO SCH (09:06)
[2021-12-07] MEDS: NEPHROCAPS PO SCH (09:06)
[2021-12-07] MEDS: LIDOCAINE 5% 1 PATCH TD SCH (09:07)
[2021-12-07] MEDS: FLUTICASONE/VILANTEROL 200/25MCG 14 PUFFS/INHALER INH SCH (09:07)
[2021-12-07] MEDS: DICLOFENAC SOD 1% GEL 100 GM TUBE EXT SCH ×4 (09:07→20:41)
[2021-12-07] MEDS: UMECLIDINIUM BROMIDE 62.5MCG/BLISTER 7 PUFFS/INHALER INH SCH (09:07)
[2021-12-07] MEDS: PREGABALIN 75 MG CAP PO SCH (09:11)
[2021-12-07] MEDS ORDERED: LIDOCAINE 4% CREAM 15 GM TUBE EXT PRN (09:42)
--- NOTE | 2021-12-07 10:02 | Hospitalist Progress Note ---
Date of Service December 07, 2021 Assessment & Plan (1) Neurogenic claudication due to lumbar spinal stenosis: Plan: 76 y/o M w/ PMHx of pAF, spinal stenosis CAD, CHF, COPD on home 2L O2, ESRD, and ileostomy who presents w/ 1 month of worsening lumbar radiculopathy w/ lumbar CT/MRI concerning for chronic L4-L5 discitis and central spinal stenosis from disc bulge. Neurogenic claudication in the setting of lumbar spinal stenosis: - MRI L-spine demonstrating chronic discitis appearance involving L4-L5 level with extensive increased signal in bulging of the disc into the spinal canal anteriorly no paraspinal abscess noticed - Initially started on IV vancomycin and Rocephin for concern of discitis discontinued in the setting of noninflammatory/noninfectious etiology - Working with PT and OT - Lyrica 75 mg daily (renally dosed) in the setting of dialysis - Orthopedics consulted. Patient's sister prefers to be reached at [phone] (cell) - Spoke w/ anesthesiology: too high risk because of complex PMHx - Following discussions with [facility] concern that patient would not be a surgical candidate following transfer and therefore at this time will not transfer - Trial of transition to Cymbalta for chronic pain control, will discontinue Paxil - PT/OT ordered. - PT rec. for SNF placement Aspiration pneumonia: - Concerns for aspiration pneumonia; h/o aspiration demonstrated on speech evaluation previously in May 2021 - Chest x-ray on 12/05 demonstrating concern for progressive left basilar airspace opacity - Pro-Rex 1.8 - Started (12/05) on Unasyn renal dosing for risk of aspiration pneumonia - 5 days ESRD: - M/W/F schedule at [facility] (continue while inpatient) - hyperK (resolved), hyper phos. - Continue home PO phos binder. Chronic right CHF: - With moderate pulmonary hypertension - 05/2021 echo w/ EF 60-65. Mod concentric LVH. Borderline RV enlargement. Moderate LA and RA dilation. moderate aortic valve sclerosis. RVSP elevated at 40-50mmhg. RVSP reduced as assessed by TAPSE - Volume appears compensated at this time. Atrial Fibrillation: - continue home regimen amio 200mg PO every other day - transiently in afib 12/02/21 this admission, but since reverted to NSR Anemia: - H/H acceptable at this time. Epo per nephro. - Macrocytic. B12 and folate wnl. COPD: - On chronic oxygen supplementation at 2 L/min - Does not appear to be in acute exacerbation at this time Coronary Artery Disease: - hx of CABG. No ischemic symptoms at this time - trop at baseline - continue statin, ASA, plavix Hypothyroidism: - stable, continue home levothyroxine Peripheral Artery Disease: - hx of fem-pop bypass. continue statin, asa, plavix Insomnia: - PDMP confirms he takes 15-30mg of temazepam nightly. Will trial decrease from 15mg to 7.5mg because of excessive drowsiness. Palliative care discussion, brought up discussion, pt. will review POLST with sister - continue to discuss during hospitalization and in outpatient setting Diet: HH, dialysis renal diet. Minced and Moist. code: Full code DVT ppx: sq heparin q12h 5000u Dispo: will need rehab placement (2) Insomnia: (3) Peripheral vascular disease: (4) Radicular leg pain: (5) Intractable low back pain: (6) Discitis: (7) Spinal stenosis: (8) Small bowel obstruction: (9) Atrial fibrillation: (10) COPD (chronic obstructive pulmonary disease): (11) Chronic right-sided CHF (congestive heart failure): (12) ESRD (end stage renal disease) on dialysis: (13) Ileostomy in place: (14) Hypothyroidism: (15) Oxygen dependent: (16) Diastolic heart failure: (17) Hypoxia: (18) Anemia, chronic renal failure: (19) Hyperkalemia: (20) S/P cholecystectomy: (21) S/P CABG x 2: (22) S/P MVR (mitral valve repair): (23) S/P AAA repair: Admission and Anticipated Discharge Date Admission Date: December 01, 2021 Supervising Physician Co-Signing Physician Notes Resident Physician Supervision Note: I independently interviewed and examined the patient and verified the danrell history and physical, reviewed labs and image studies and agree with resident Dr. Brunner findings and care plan. Subjective Doing okay today, he was having some cramping of his lower legs that he has had in the past. He did note later in the day that he had improvement with diclofenac. We talked about palliative care, and reviewed a POLST form. He wanted to go over the information with his sister prior to completing the form. Review of Systems Review of Systems: Constitutional: denies fevers, fatigue Cardiac: denies chest pain, palpitations Pulm.: denies shortness of breath or trouble breathing Physical Exam Constitutional: well developed and well nourished; no acute distress Eyes: PERRL, conjunctivae normal, anicteric sclerae ENMT: external ear and nose normal, oropharynx normal Neck: normal visual inspection Respiratory: normal respiratory effort, lungs clear to auscultation Cardiovascular: RRR, no murmur, no edema Gastrointestinal (Abdomen): normal bowel sounds, soft, nontender, no hepatosplenomegaly Musculoskeletal: no cyanosis or clubbing, extremities motor strength 5/5 Skin: no rashes, warm and dry Neurologic: no focal motor deficits Psychiatric: Orientation: alert Results & Data Results [facility] Vital Signs (Past 12 Hours) Vital Signs Temp Pulse Pulse Resp BP Pulse Ox 12/07/21 08:00 36.4 C L 71 22 157/64 H 95 12/07/21 07:52 63 12/07/21 03:15 36.7 C 60 18 137/71 97 12/06/21 22:52 36.9 C 60 18 105/57 L 96 12/06/21 22:46 60 12/06/21 22:45 66 Resident Activity Tracking Resident Involvement: Resident Care Provided Care Provided: Adult Hospital Medicine (1) Anemia, chronic renal failure Chronic kidney disease stage: unspecified stage Qualified Code(s): N18.9 - Chronic kidney disease, unspecified; D63.1 - Anemia in chronic kidney disease (2) Discitis Spinal region: lumbar Qualified Code(s): M46.46 - Discitis, unspecified, lumb ar region (3) Spinal stenosis Spinal region: lumbosacral Qualified Code(s): M48.07 - Spinal stenosis, lumbosacral region
[2021-12-07] MEDS: CLOPIDOGREL BISULFATE 75 MG TAB PO SCH (18:13)
[2021-12-07] MEDS: ASPIRIN 81 MG ECTAB PO SCH (18:13)
[2021-12-07] MEDS: AMPICILLIN/SULBACTAM SOD 3,000 MG in 0.9 % SODIUM CHLORIDE 100 ML IV SCH (18:14)
[2021-12-07] MEDS: rOPINIRole HCL 0.25 MG TABLET PO SCH (20:42)
[2021-12-07] MEDS: ATORVASTATIN 40 MG TAB PO SCH (20:42)
[2021-12-07] MEDS: DOCUSATE SODIUM 100 MG CAP PO SCH (20:42)
[2021-12-07] MEDS: TEMAZEPAM 7.5 MG CAPSULE PO SCH (20:43)
[2021-12-08] MEDS: HEPARIN SOD 5,000 UNIT/0.5 ML VIAL SQ SCH ×2 (05:18→17:55)
[2021-12-08] MEDS: LEVOTHYROXINE SODIUM 88 MCG TABLET PO SCH (05:18)
--- NOTE | 2021-12-08 06:37 | Hospitalist Progress Note ---
Date of Service December 08, 2021 Assessment & Plan (1) Aspiration pneumonia: Plan: 76 y/o M w/ PMHx of pAF, spinal stenosis CAD, CHF, COPD on home 2L O2, ESRD, and ileostomy who presents w/ 1 month of worsening lumbar radiculopathy w/ lumbar CT/MRI concerning for chronic L4-L5 discitis and central spinal stenosis from disc bulge. Neurogenic claudication in the setting of lumbar spinal stenosis: - MRI L-spine demonstrating chronic discitis appearance involving L4-L5 level with extensive increased signal in bulging of the disc into the spinal canal anteriorly no paraspinal abscess noticed - Initially started on IV vancomycin and Rocephin for concern of discitis discontinued in the setting of noninflammatory/noninfectious etiology - Working with PT and OT - Lyrica 75 mg daily (renally dosed) in the setting of dialysis - Orthopedics consulted. Patient's sister prefers to be reached at [phone] (cell) - Spoke w/ anesthesiology: too high risk because of complex PMHx. - Following discussions with [facility] concern that patient would not be a surgical candidate following transfer and therefore at this time will not transfer - Trial of transition to Cymbalta for chronic pain control, will discontinue Paxil - PT/OT ordered. - PT rec. for SNF placement Aspiration pneumonia: - Concerns for aspiration pneumonia; h/o aspiration demonstrated on speech evaluation previously in May 2021 - Chest x-ray on 12/05 demonstrating concern for progressive left basilar airspace opacity - Pro-Rex 1.8 - Started (12/05) on Unasyn renal dosing for risk of aspiration pneumonia - 5 days ESRD: - M/W/F schedule at [facility] (continue while inpatient) - hyperK (resolved), hyper phos. - Continue home PO phos binder. Chronic right CHF: - With moderate pulmonary hypertension - 05/2021 echo w/ EF 60-65. Mod concentric LVH. Borderline RV enlargement. Moderate LA and RA dilation. moderate aortic valve sclerosis. RVSP elevated at 40-50mmhg. RVSP reduced as assessed by TAPSE - Volume appears compensated at this time. Atrial Fibrillation: - continue home regimen amio 200mg PO every other day - transiently in afib 12/02/21 this admission, but since reverted to NSR Anemia: - H/H acceptable at this time. Epo per nephro. - Macrocytic. B12 and folate wnl. COPD: - On chronic oxygen supplementation at 2 L/min - Does not appear to be in acute exacerbation at this time Coronary Artery Disease: - hx of CABG. No ischemic symptoms at this time - trop at baseline - continue statin, ASA, plavix Hypothyroidism: - stable, continue home levothyroxine Peripheral Artery Disease: - hx of fem-pop bypass. continue statin, asa, plavix Insomnia: - PDMP confirms he takes 15-30mg of temazepam nightly. Will trial decrease from 15mg to 7.5mg because of excessive drowsiness. Palliative care discussion, brought up discussion, pt. will review POLST with sister - continue to discuss during hospitalization and in outpatient setting Diet: HH, dialysis renal diet. Minced and Moist. code: Full code DVT ppx: sq heparin q12h 5000u Dispo: will need rehab placement (2) Congestion of upper respiratory tract: (3) Neurogenic claudication due to lumbar spinal stenosis: (4) Opacity of lung on imaging study: (5) Insomnia: (6) Peripheral vascular disease: (7) Radicular leg pain: (8) Intractable low back pain: (9) Discitis: (10) Spinal stenosis: (11) Small bowel obstruction: (12) Atrial fibrillation: (13) CAD (coronary artery disease): (14) Chronic right-sided CHF (congestive heart failure): (15) COPD (chronic obstructive pulmonary disease): (16) ESRD (end stage renal disease) on dialysis: (17) Chronic respiratory failure with hypoxia: (18) Ileostomy in place: (19) CKD (chronic kidney disease): (20) Diastolic heart failure: (21) Myocardial infarct, old: (22) Hx of CABG: (23) H/O abdominal aortic aneurysm repair: Admission and Anticipated Discharge Date Admission Date: December 01, 2021 Supervising Physician Co-Signing Physician Notes Resident Physician Supervision Note: I independently interviewed and examined the patient and verified the darnell history and physical, reviewed labs and image studies and agree with resident Dr. Brunner findings and care plan. Subjective Doing okay today, he was feeling much better from a pain standpoint. I reviewed with him that would likely need to go to rehab prior to going home to work on building his strength based on the therapy exam. Review of Systems Review of Systems: Constitutional: denies fevers, fatigue Cardiac: denies chest pain, palpitations GI: denies nausea, vomiting, constipation, diarrhea Pulm.: denies shortness of breath or trouble breathing Physical Exam Constitutional: well developed and well nourished; no acute distress Eyes: PERRL, conjunctivae normal, anicteric sclerae ENMT: external ear and nose normal, oropharynx normal Neck: normal visual inspection Respiratory: normal respiratory effort, lungs clear to auscultation Cardiovascular: RRR, no murmur, no edema Gastrointestinal (Abdomen): normal bowel sounds, soft, nontender, no hepatosplenomegaly Musculoskeletal: no cyanosis or clubbing, extremities motor strength 5/5 Skin: no rashes, warm and dry Neurologic: no focal motor deficits Psychiatric: Orientation: alert Results & Data Results & Data ([facility]) Vital Signs (Past 12 Hours) Vital Signs Temp Pulse Pulse Resp BP Pulse Ox 12/08/21 02:00 36.5 C 65 18 121/64 96 12/07/21 23:39 61 12/07/21 23:07 36.4 C L 59 L 18 124/63 97 12/07/21 18:58 36.8 C 66 18 101/41 L 96 (1) CAD (coronary artery disease) Associated angina: without angina Coronary Disease-Associated Artery/Lesion type: [place] artery [place] vs. transplanted heart: tribe heart Qualified Code(s): I25.10 - Atherosclerotic heart disease of tribe coronary artery wi thout angina pectoris (2) Discitis Spinal region: lumbar Qualified Code(s): M46.46 - Discitis, unspecified, lumbar region (3) CKD (chronic kidney disease) Chronic kidney disease stage: on chronic dialysis Qualified Code(s): N18.6 - End stage renal disease; Z99.2 - Dependence on renal dialysis (4) Spinal stenosis Spinal region: lumbosacral Qualified Code(s): M48.07 - Spinal stenosis, lumbosacral region
[2021-12-08 07:08] LABS: Basophils # (auto) 0.04 K/uL (0-0.2); Basophils % (auto) 0.5 %; Eosinophils # (auto) 0.49 K/uL (0-0.5); Eosinophils % (auto) 6.3 %; Hematocrit (blood only) 32.1 % (42-52); Hemoglobin 10.6 g/dL (14.0-18.0); Immature Granulocytes # (auto) 0.23 K/uL (0.00-0.02); Lymphocytes # (auto) 1.38 K/uL (1.2-3.4); Lymphocytes % (auto) 17.8 %; Mean Platelet Volume 9.1 fL (7.4-10.4); Monocytes # (auto) 1.66 K/uL (0.11-0.59); Monocytes % (auto) 21.4 %; Neutrophils # (auto) 3.94 K/uL (1.4-6.5); Nucleated RBC # (auto) 0.04 K/uL (0-0); Nucleated RBC % (auto) 0.6 %; Platelet Count 140 K/uL (130-400); RDW Coefficient of Variation 17.4 % (11.5-14.5); RDW Standard Deviation 62.7 fL (36.4-46.3); Red Blood Count 3.21 M/uL (4.7-6.1); White Blood Count 7.74 K/uL (4.8-10.8)
[2021-12-08 07:09] LABS: BUN Creatinine Ratio 4.8 (10-20); Calcium 9.2 mg/dl (8.5-10.1); Creatinine Clr Calc Pharmacy 8.5 ml/min; Est GFR (African American) 5.6 ml/min; Est GFR (Non-African American) 4.8 ml/min; Potassium 3.7 mmol/L (3.5-5.1)
[2021-12-08] MEDS: CALCIUM ACETATE 667 MG CAP/TAB PO SCH (08:16)
[2021-12-08] MEDS: ACETAMINOPHEN 500 MG TAB PO SCH ×2 (08:16→20:29)
[2021-12-08] MEDS: PANTOprazole 40 MG TAB PO SCH (08:16)
[2021-12-08] MEDS: DULoxetine HCL 30 MG CAP PO SCH (08:16)
[2021-12-08] MEDS: SENNA 8.6 MG TAB PO SCH (08:16)
[2021-12-08] MEDS: NEPHROCAPS PO SCH (08:16)
[2021-12-08] MEDS: AMIODARONE 200 MG TAB PO SCH (08:16)
[2021-12-08] MEDS: DICLOFENAC SOD 1% GEL 100 GM TUBE EXT SCH ×4 (08:17→20:27)
[2021-12-08] MEDS: FLUTICASONE/VILANTEROL 200/25MCG 14 PUFFS/INHALER INH SCH (08:17)
[2021-12-08] MEDS: LIDOCAINE 5% 1 PATCH TD SCH (08:17)
[2021-12-08] MEDS: UMECLIDINIUM BROMIDE 62.5MCG/BLISTER 7 PUFFS/INHALER INH SCH (08:17)
[2021-12-08] MEDS: PREGABALIN 75 MG CAP PO SCH (08:29)
[2021-12-08] MEDS: CLOPIDOGREL BISULFATE 75 MG TAB PO SCH (17:55)
[2021-12-08] MEDS: ASPIRIN 81 MG ECTAB PO SCH (17:55)
[2021-12-08] MEDS: AMPICILLIN/SULBACTAM SOD 3,000 MG in 0.9 % SODIUM CHLORIDE 100 ML IV SCH (18:33)
[2021-12-08] MEDS: ATORVASTATIN 40 MG TAB PO SCH (20:28)
[2021-12-08] MEDS: TEMAZEPAM 7.5 MG CAPSULE PO SCH (20:28)
[2021-12-08] MEDS: DOCUSATE SODIUM 100 MG CAP PO SCH (20:28)
[2021-12-08] MEDS: rOPINIRole HCL 0.25 MG TABLET PO SCH (20:28)
[2021-12-09] MEDS: HEPARIN SOD 5,000 UNIT/0.5 ML VIAL SQ SCH ×2 (06:15→16:57)
[2021-12-09] MEDS: LEVOTHYROXINE SODIUM 88 MCG TABLET PO SCH (06:15)
[2021-12-09] MEDS ORDERED: EPOETIN ALFA 4,000 UNIT/ML VIAL IV ONE (07:00)
[2021-12-09] MEDS ORDERED: SODIUM CHLORIDE 0.9% 1000ML 1,000 ML IV PRN (07:00)
[2021-12-09 07:19] LABS: Hematocrit (blood only) 30.9 % (42-52); Hemoglobin 10.4 g/dL (14.0-18.0); Mean Corpuscular Hemoglobin 33.2 pg (25-34); Mean Corpuscular Hgb Conc 33.7 g/dL (32-36); Mean Corpuscular Volume 98.7 fL (80-100); Mean Platelet Volume 9.1 fL (7.4-10.4); Platelet Count 145 K/uL (130-400); RDW Coefficient of Variation 17.5 % (11.5-14.5); RDW Standard Deviation 61.1 fL (36.4-46.3); Red Blood Count 3.13 M/uL (4.7-6.1)
[2021-12-09 07:34] LABS: Basophils # (auto) 0.06 K/uL (0-0.2); Basophils % (auto) 0.6 %; Eosinophils # (auto) 0.56 K/uL (0-0.5); Eosinophils % (auto) 5.9 %; Immature Granulocytes # (auto) 0.65 K/uL (0.00-0.02); Immature Granulocytes % (auto) 6.8 %; Lymphocytes # (auto) 1.43 K/uL (1.2-3.4); Lymphocytes % (auto) 15.1 %; Monocytes # (auto) 1.42 K/uL (0.11-0.59); Monocytes % (auto) 14.9 %; Neutrophils # (auto) 5.38 K/uL (1.4-6.5); Neutrophils % (auto) 56.7 %
[2021-12-09 07:41] LABS: BUN Creatinine Ratio 5.1 (10-20); Est GFR (African American) 4.5 ml/min; Est GFR (Non-African American) 3.9 ml/min; Magnesium 1.4 mg/dl (1.7-2.4); Phosphorus 4.1 mg/dl (2.5-4.9)
--- NOTE | 2021-12-09 07:51 | Hospitalist Progress Note ---
Date of Service December 09, 2021 Assessment & Plan (1) Aspiration pneumonia: Plan: 76 y/o M w/ PMHx of pAF, spinal stenosis CAD, CHF, COPD on home 2L O2, ESRD, and ileostomy who presents w/ 1 month of worsening lumbar radiculopathy w/ lumbar CT/MRI concerning for chronic L4-L5 discitis and central spinal stenosis from disc bulge. Neurogenic claudication in the setting of lumbar spinal stenosis: - MRI L-spine demonstrating chronic discitis appearance involving L4-L5 level with extensive increased signal in bulging of the disc into the spinal canal anteriorly no paraspinal abscess noticed - Initially started on IV vancomycin and Rocephin for concern of discitis discontinued in the setting of noninflammatory/noninfectious etiology - Working with PT and OT - Lyrica 75 mg daily (renally dosed) in the setting of dialysis - Orthopedics consulted. Patient's sister prefers to be reached at [phone] (cell) - Spoke w/ anesthesiology: too high risk because of complex PMHx. - Following discussions with [facility] concern that patient would not be a surgical candidate following transfer and therefore at this time will not transfer - Will reach out to [facility] for second opinion - Trial of transition to Cymbalta for chronic pain control, will discontinue Paxil - PT/OT order; PT rec. for SNF placement Aspiration pneumonia: - Concerns for aspiration pneumonia; h/o aspiration demonstrated on speech evaluation previously in May 2021 - Chest x-ray on 12/05 demonstrating concern for progressive left basilar airspace opacity - Pro-Rex 1.8 - Started (12/05) on Unasyn renal dosing for risk of aspiration pneumonia - 5 days ESRD: - M/W/ schedule at [facility] (continue while inpatient) - hyperK (resolved), hyper phos. - Continue home PO phos binder. Hypomagnesemia: - Management per nephro - Recheck Mg in AM Chronic right CHF: - With moderate pulmonary hypertension - 05/2021 echo w/ EF 60-65. Mod concentric LVH. Borderline RV enlargement. Moderate LA and RA dilation. moderate aortic valve sclerosis. RVSP elevated at 40-50mmhg. RVSP reduced as assessed by TAPSE - Volume appears compensated at this time. Atrial Fibrillation: - continue home regimen amio 200mg PO every other day - transiently in afib 12/02/21 this admission, but since reverted to NSR Anemia: - H/H acceptable at this time. Epo per nephro. - Macrocytic. B12 and folate wnl. COPD: - On chronic oxygen supplementation at 2 L/min - Does not appear to be in acute exacerbation at this time Coronary Artery Disease: - hx of CABG. No ischemic symptoms at this time - trop at baseline - continue statin, ASA, plavix Hypothyroidism: - stable, continue home levothyroxine Peripheral Artery Disease: - hx of fem-pop bypass. continue statin, asa, plavix Insomnia: - PDMP confirms he takes 15-30mg of temazepam nightly. Will trial decrease from 15mg to 7.5mg because of excessive drowsiness. Palliative care discussion, brought up discussion, pt. will review POLST with sister - continue to discuss during hospitalization and in outpatient setting Diet: HH, dialysis renal diet. Minced and Moist. code: Full code DVT ppx: sq heparin q12h 5000u Dispo: will need rehab placement (2) Congestion of upper respiratory tract: (3) Neurogenic claudication due to lumbar spinal stenosis: (4) Opacity of lung on imaging study: (5) Insomnia: (6) Peripheral vascular disease: (7) Radicular leg pain: (8) Intractable low back pain: (9) Discitis: (10) Spinal stenosis: (11) Small bowel obstruction: (12) Atrial fibrillation: (13) CAD (coronary artery disease): (14) Chronic right-sided CHF (congestive heart failure): (15) COPD (chronic obstructive pulmonary disease): (16) ESRD (end stage renal disease) on dialysis: (17) Chronic respiratory failure with hypoxia: (18) Ileostomy in place: (19) CKD (chronic kidney disease): (20) Diastolic heart failure: (21) Myocardial infarct, old: (22) Hx of CABG: (23) H/O abdominal aortic aneurysm repair: Admission and Anticipated Discharge Date Admission Date: December 01, 2021 Supervising Physician Co-Signing Physician Notes I personally examined the patient and verified all darnell points of history and exam, discussed case, and agree with decision making with Dr Sanchez back pain and radicular sx overall tolerable. just having leg cramps that are really bugging him - R leg. worse over last few months. is the main complaint when i see him today vitals noted nad heent nc at mmm breathing unlabored no accessory muscles good effort msk/ost R sided calf muscle high tone/tender/decreased ROM - direct myofascial - improved some, pt tolerated well neuorgenic claudication/spinal stenosis - PT/OT eval and treat. consider furthe r surgical opinions on overall risk/benefit. for rehab once bed available calf cramps - OMT as above DVT proph - heparin SQ otherwise as above Subjective Patient was at dialysis this AM and not seen in-room. Will reassess in PM. PM: Patient is doing fine. He is back from dialysis and feels he tolerated it well today. He has 7.5/10 low back pain that radiates to feet. Pain is more tolerable today on the current regimen. Denies other symptoms. Review of Systems Review of Systems: All systems reviewed & are unremarkable except as noted in HPI & below Physical Exam Physical Exam: General: Grossly A&O. NAD. Cooperative. Conversational. HEENT: Atraumatic, normocephalic. Pulm: CTAB. -wheezes, -rales, -rhonchi. No respiratory distress. Cardiac: RRR, -mrg. No LE edema. Abdominal: Nontender, nondistended, soft. Msk: R toes s/p amputation. Integ: Mild chronic hyperpigmentation and stasis changes of shins. Results & Data Results & Data ([facility]) Vital Signs (Past 12 Hours) Vital Signs HR 55x1. Mostly low 60s. 93-99% on 2L. Temp Pulse Pulse Resp BP Pulse Ox 12/09/21 04:09 36.6 C 55 L 16 114/64 93 12/08/21 23:02 36.4 C L 61 16 112/53 L 96 12/08/21 22:19 61 Laboratory Results wbc 7.74->9.5. Hb stable. Na 129. Cr 11.34. Mg 1.4L. Resident Activity Tracking Resident Involvement: Resident Care Provided Care Provided: Adult Hospital Medicine (1) CAD (coronary artery disease) Associated angina: without angina Coronary Disease-Associated Artery/Lesion type: [place] artery [place] vs. transplanted heart: [place] heart Qualified Code(s): I25.10 - Atherosclerotic heart disease of [place] coronary artery without angina pectoris (2) Discitis Spinal region: lumbar Qualified Code(s): M46.46 - Discitis, unspecified, lumbar region (3) CKD (chronic kidney disease) Chronic kidney disease stage: on chronic dialysis Qualified Code(s): N18.6 - End stage renal disease; Z99.2 - Dependence on renal dialysis (4) Spinal stenosis Spinal region: lumbosacral Qualified Code(s): M48.07 - Spinal stenosis, lumbosacral region
[2021-12-09] MEDS: PREGABALIN 75 MG CAP PO SCH (08:01)
[2021-12-09] MEDS: DULoxetine HCL 30 MG CAP PO SCH (08:01)
[2021-12-09] MEDS: SENNA 8.6 MG TAB PO SCH (08:02)
[2021-12-09] MEDS: NEPHROCAPS PO SCH (08:02)
[2021-12-09] MEDS: CALCIUM ACETATE 667 MG CAP/TAB PO SCH (08:02)
[2021-12-09] MEDS: PANTOprazole 40 MG TAB PO SCH (08:02)
[2021-12-09] MEDS: ACETAMINOPHEN 500 MG TAB PO SCH ×2 (08:02→21:36)
[2021-12-09] MEDS: LIDOCAINE 5% 1 PATCH TD SCH (08:03)
[2021-12-09] MEDS: FAMOTIDINE 20 MG TAB PO SCH (08:03)
[2021-12-09] MEDS: DICLOFENAC SOD 1% GEL 100 GM TUBE EXT SCH ×4 (08:04→21:28)
[2021-12-09] MEDS: UMECLIDINIUM BROMIDE 62.5MCG/BLISTER 7 PUFFS/INHALER INH SCH (08:05)
[2021-12-09] MEDS: FLUTICASONE/VILANTEROL 200/25MCG 14 PUFFS/INHALER INH SCH (08:05)
--- NOTE | 2021-12-09 15:44 | Nephrology Progress Note ---
Date of Service December 09, 2021 Assessment & Plan Admission and Anticipated Discharge Date Admission Date: December 01, 2021 Subjective Subjective S---Seen for dialysis. Patient Looks and feels weak with blood pressure low had Dialysis and 2.5 kilo removed PHYSICAL EXAMINATION: GENERAL: Elderly white male who appears chronically ill appearing. He is awake, alert, oriented x3, but very somnolent and could not keep his eyes open. HEENT: Mucous membrane is moist. NECK: Supple. No jugular venous distention. CHEST: Bilateral decreased breath sound. Poor inspiratory effort limiting quality of the exam, bilateral occasional rhonchi. CARDIOVASCULAR: S1 and S2 regular. Soft systolic murmur heard. ABDOMEN: Soft, nontender. EXTREMITIES: Show no edema, wrinkled skin secondary to lack of edema now, multiple skin sores. Features of advanced peripheral vascular disease present. NEUROLOGIC: Normal speech. Moving all 4 extremities. LABORATORY TEST: blood work from today reviewed ASSESSMENT AND PLAN: A 76-year-old male with end-stage renal disease, on chronic hemodialysis Thursday, Thursday, Thursday through a right upper arm arteriovenous fistula, but also presenting with severe intractable back pain. The patient has very extensive list of medical problems and is frequently admitted. I have been consulted for dialysis management. 1. End-stage renal disease: As per his schedule, today is his dialysis day and we did remove 2.5 kg off. Compared to the previous examination, his volume status seems to be better as he does not seem to have much edema at all. . 2. Intractable back pain: This is as per primary team who has also consulted ortho-spine and we will defer to them. Results & Data ([facility]) Vital Signs (Past 12 Hours) Vital Signs Temp Pulse Pulse Pulse Resp BP BP 12/09/21 12:05 36.7 C 60 106/60 12/09/21 11:40 62 98/52 L 12/09/21 11:20 57 L 105/56 L 12/09/21 11:00 58 L 116/67 12/09/21 10:40 58 L 111/57 L 12/09/21 10:20 58 L 111/60 12/09/21 10:00 59 L 110/62 12/09/21 09:40 59 L 101/54 L 12/09/21 09:20 59 L 97/52 L 12/09/21 09:00 60 108/70 12/09/21 08:49 57 L 111/67 12/09/21 08:40 36.6 C 57 L 12/09/21 08:11 36.5 C 59 L 19 131/60 12/09/21 04:09 36.6 C 55 L 16 114/64 Pulse Ox 12/09/21 12:05 12/09/21 11:40 12/09/21 11:20 12/09/21 11:00 12/09/21 10:40 12/09/21 10:20 12/09/21 10:00 12/09/21 09:40 12/09/21 09:20 12/09/21 09:00 12/09/21 08:49 12/09/21 08:40 12/09/21 08:11 99 12/09/21 04:09 93
--- NOTE | 2021-12-09 16:10 | Billing Data ---
Date of Service December 09, 2021 Coding Level of Care Code 55246 Subseq Hosp Care Lvl 2
[2021-12-09] MEDS: ASPIRIN 81 MG ECTAB PO SCH (17:10)
[2021-12-09] MEDS: CLOPIDOGREL BISULFATE 75 MG TAB PO SCH (17:10)
[2021-12-09] MEDS: AMPICILLIN/SULBACTAM SOD 3,000 MG in 0.9 % SODIUM CHLORIDE 100 ML IV SCH (21:32)
[2021-12-09] MEDS: ATORVASTATIN 40 MG TAB PO SCH (21:38)
[2021-12-09] MEDS: DOCUSATE SODIUM 100 MG CAP PO SCH (21:38)
[2021-12-09] MEDS: TEMAZEPAM 7.5 MG CAPSULE PO SCH (21:41)
[2021-12-09] MEDS: rOPINIRole HCL 0.25 MG TABLET PO SCH (21:41)
[2021-12-10] MEDS ORDERED: HYDROCODONE/ACETAMOPHEN 5/325MG TAB PO ONE (05:57)
[2021-12-10] MEDS: HEPARIN SOD 5,000 UNIT/0.5 ML VIAL SQ SCH ×2 (06:02→17:03)
[2021-12-10] MEDS: LEVOTHYROXINE SODIUM 88 MCG TABLET PO SCH (06:04)
[2021-12-10 07:30] LABS: Hematocrit (blood only) 32.7 % (42-52); Hemoglobin 10.8 g/dL (14.0-18.0); Mean Corpuscular Hemoglobin 33.1 pg (25-34); Mean Corpuscular Volume 100.3 fL (80-100); Mean Platelet Volume 9.2 fL (7.4-10.4); Nucleated RBC # (auto) 0.06 K/uL (0-0); Nucleated RBC % (auto) 0.6 %; Platelet Count 149 K/uL (130-400); RDW Standard Deviation 63.5 fL (36.4-46.3); Red Blood Count 3.26 M/uL (4.7-6.1); White Blood Count 10.36 K/uL (4.8-10.8)
[2021-12-10 07:54] LABS: BUN Creatinine Ratio 4.4 (10-20); Calcium 9.1 mg/dl (8.5-10.1); Creatinine Clr Calc Pharmacy 9.7 ml/min; Est GFR (African American) 6.5 ml/min; Est GFR (Non-African American) 5.6 ml/min; Magnesium 1.5 mg/dl (1.7-2.4); Potassium 3.7 mmol/L (3.5-5.1)
[2021-12-10 07:57] LABS: Basophils # (auto) 0.07 K/uL (0-0.2); Basophils % (auto) 0.7 %; Eosinophils # (auto) 0.47 K/uL (0-0.5); Eosinophils % (auto) 4.5 %; Immature Granulocytes # (auto) 0.61 K/uL (0.00-0.02); Immature Granulocytes % (auto) 5.9 %; Lymphocytes # (auto) 1.52 K/uL (1.2-3.4); Lymphocytes % (auto) 14.7 %; Monocytes % (auto) 18.3 %; Neutrophils # (auto) 5.79 K/uL (1.4-6.5); Neutrophils % (auto) 55.9 %
[2021-12-10] MEDS: UMECLIDINIUM BROMIDE 62.5MCG/BLISTER 7 PUFFS/INHALER INH SCH (08:20)
[2021-12-10] MEDS: SENNA 8.6 MG TAB PO SCH (08:21)
--- NOTE | 2021-12-10 08:21 | Hospitalist Progress Note ---
Date of Service December 10, 2021 Assessment & Plan (1) Aspiration pneumonia: Plan: 76 y/o M w/ PMHx of pAF, spinal stenosis CAD, CHF, COPD on home 2L O2, ESRD, and ileostomy who presents w/ 1 month of worsening lumbar radiculopathy w/ lumbar CT/MRI concerning for chronic L4-L5 discitis and central spinal stenosis from disc bulge. Neurogenic claudication in the setting of lumbar spinal stenosis: - MRI L-spine demonstrating chronic discitis appearance involving L4-L5 level with extensive increased signal in bulging of the disc into the spinal canal anteriorly no paraspinal abscess noticed - Initially started on IV vancomycin and Rocephin for concern of discitis discontinued in the setting of noninflammatory/noninfectious etiology - Working with PT and OT - Lyrica 75 mg daily (renally dosed) in the setting of dialysis - Orthopedics consulted. Patient's sister prefers to be reached at [phone] (cell) - Spoke w/ anesthesiology: too high risk because of complex PMHx. - Following discussions with [facility] concern that patient would not be a surgical candidate following transfer and therefore at this time will not transfer - Will reach out to [facility] for second opinion - Trial of transition to Cymbalta for chronic pain control, will discontinue Paxil - PT/OT order; PT rec. for SNF placement Aspiration pneumonia: - Concerns for aspiration pneumonia; h/o aspiration demonstrated on speech evaluation previously in May 2021 - Chest x-ray on 12/05 demonstrating concern for progressive left basilar airspace opacity - Pro-Rex 1.8 - Started (12/05) on Unasyn renal dosing for risk of aspiration pneumonia - 5 days ESRD: - M/W/ schedule at [facility] (continue while inpatient) - hyperK (resolved), hyper phos. - Continue home PO phos binder. Hypomagnesemia: - Management per nephro - Recheck Mg in AM Chronic right CHF: - With moderate pulmonary hypertension - 05/2021 echo w/ EF 60-65. Mod concentric LVH. Borderline RV enlargement. Moderate LA and RA dilation. moderate aortic valve sclerosis. RVSP elevated at 40-50mmhg. RVSP reduced as assessed by TAPSE - Volume appears compensated at this time. Atrial Fibrillation: - continue home regimen amio 200mg PO every other day - transiently in afib 12/02/21 this admission, but since reverted to NSR Anemia: - H/H acceptable at this time. Epo per nephro. - Macrocytic. B12 and folate wnl. COPD: - On chronic oxygen supplementation at 2 L/min - Does not appear to be in acute exacerbation at this time Coronary Artery Disease: - hx of CABG. No ischemic symptoms at this time - trop at baseline - continue statin, ASA, plavix Hypothyroidism: - stable, continue home levothyroxine Peripheral Artery Disease: - hx of fem-pop bypass. continue statin, asa, plavix Insomnia: - PDMP confirms he takes 15-30mg of temazepam nightly. Will trial decrease from 15mg to 7.5mg because of excessive drowsiness. Palliative care discussion, brought up discussion, pt. will review POLST with sister - continue to discuss during hospitalization and in outpatient setting Diet: HH, dialysis renal diet. Minced and Moist. code: Full code DVT ppx: sq heparin q12h 5000u Dispo: will need rehab placement (2) Congestion of upper respiratory tract: (3) Neurogenic claudication due to lumbar spinal stenosis: (4) Opacity of lung on imaging study: (5) Insomnia: (6) Peripheral vascular disease: (7) Radicular leg pain: (8) Intractable low back pain: (9) Discitis: (10) Spinal stenosis: (11) Small bowel obstruction: (12) Atrial fibrillation: (13) CAD (coronary artery disease): (14) Chronic right-sided CHF (congestive heart failure): (15) COPD (chronic obstructive pulmonary disease): (16) ESRD (end stage renal disease) on dialysis: (17) Chronic respiratory failure with hypoxia: (18) Ileostomy in place: (19) CKD (chronic kidney disease): (20) Diastolic heart failure: (21) Myocardial infarct, old: (22) Hx of CABG: (23) H/O abdominal aortic aneurysm repair: Admission and Anticipated Discharge Date Admission Date: December 01, 2021 Subjective Severe pain last night; deferred narcotics. This AM, still has severe pain, bilat thighs -> feet. Describes as "Eli[place] horses" at calves. Denies other symptoms. Review of Systems Review of Systems: All systems reviewed & are unremarkable except as noted in HPI & below Physical Exam Physical Exam: General: Grossly A&O. NAD. Cooperative. Appears slightly uncomfortable from his pain. HEENT: Atraumatic, normocephalic. Pulm: Mild insp crackles at R base. No respiratory distress. Cardiac: RRR, -mrg. Abdominal: Nontender, nondistended, soft. Msk: R toes s/p amputation. Integ: Mild chronic hyperpigmentation and stasis changes of shins. Results & Data Results & Data ([facility]) Vital Signs (Past 12 Hours) Vital Signs 96 HR x1. 91-98 sat on 2L nasal cannula Temp Pulse Pulse Resp BP Pulse Ox 12/10/21 07:32 36.4 C L 96 H 20 136/52 L 91 12/10/21 06:20 62 12/10/21 03:22 36.4 C L 61 18 130/71 98 12/09/21 23:07 36.8 C 64 18 138/72 95 12/09/21 22:18 65 Laboratory Results cbc stable. bmp stable. Mg 1.5. 2/6 BC neg final. Resident Activity Tracking Resident Involvement: Resident Care Provided Care Provided: Adult Hospital Medicine (1) CAD (coronary artery disease) Associated angina: without angina Coronary Disease-Associated Artery/Lesion type: [place] artery [place] vs. transplanted heart: [place] heart Qualified Code(s): I25.10 - Atherosclerotic heart disease of [place] coronary artery without angina pectoris (2) Discitis Spinal region: lumbar Qualified Code(s): M46.46 - Discitis, unspecified, lumbar region (3) CKD (chronic kidney disease) Chronic kidney disease stage: on chronic dialysis Qualified Code(s): N18.6 - End stage renal disease; Z99.2 - Dependence on renal dialysis (4) Spinal stenosis Spinal region: lumbosacral Qualified Code(s): M48.07 - Spinal stenosis, lumbosacral region
[2021-12-10] MEDS: PANTOprazole 40 MG TAB PO SCH (08:22)
[2021-12-10] MEDS: ACETAMINOPHEN 500 MG TAB PO SCH (08:22)
[2021-12-10] MEDS: DULoxetine HCL 30 MG CAP PO SCH (08:22)
[2021-12-10] MEDS: CALCIUM ACETATE 667 MG CAP/TAB PO SCH (08:24)
[2021-12-10] MEDS: AMIODARONE 200 MG TAB PO SCH (08:24)
[2021-12-10] MEDS: DICLOFENAC SOD 1% GEL 100 GM TUBE EXT SCH ×3 (08:24→17:05)
[2021-12-10] MEDS: FLUTICASONE/VILANTEROL 200/25MCG 14 PUFFS/INHALER INH SCH (08:25)
[2021-12-10] MEDS: LIDOCAINE 5% 1 PATCH TD SCH ×2 (08:26→12:23)
[2021-12-10] MEDS: NEPHROCAPS PO SCH (08:27)
[2021-12-10] MEDS: PREGABALIN 75 MG CAP PO SCH (08:34)
--- NOTE | 2021-12-10 12:39 | Discharge Summary ---
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 Patient states that the pain started in the low back "just below the waist line" and was initially mild. The pain would radiate into both legs, perhaps a bit worse on the left side, and down to the level of each ankle. The leg pain was shooting/stabbing in character, intermittent, and intense at times. No paresthesias or numbness - just severe leg pain. He continues with the bilateral leg pain but the worst pain is now directly over the lumbar spine in the midline. He has been taking tylenol for the pain without relief. He has nocturnal symptoms. Over the last few months his mobility was very poor - was only able to take a few steps in order to transfer from a chair to the bed, a chair into a wheelchair, etc. Now, over the last few weeks, he hasn't been able to even take a few steps due to the pain in his back/legs as well as weakness. Yesterday he apparently was trying to get out of his recliner at home and fell/slid to the floor because of the weakness. He can't give additional details on the event. He denies any significant pain in the left foot at this time. He does state he has open sores on both feet and his sister - who is a former nurse - tends to these. Over the last month he denies any loss of appetite, fevers, chills or sweats. He has fatigue, but this is chronic in nature. He attended his HD session on Thursday at [facility] as usual. Admission Exam Per Admitting Provider gen - chronically ill-appearing, ashen color, he has pain in lumbar spine when he shifts around on the bed eyes - PERRL HENT - TMs clear b/l, mouth without lesions skin - seborrhea forehead/face; abrasions/tiny ulcerations on dorsum of right foot; left foot - multiple ulcerations over several toes; mild odor from the left foot neck - no JVD heart - RRR, s1 s2, 2/6 systolic murmur LSB lungs - CTA b/l abd - soft NT ND BS+; ostomy bag in place with brown stool vascular - right arm AV fistula with bruit; cap refill b/l feet <2sec; pulses b/l feet about 2+ back - tender to palpation over lower lumbar spine segments; no pain over either SI joint neuro - strength left leg - flexion of hip, extension of knee, plantarflexion/dorsiflexion of foot about 4/5; right hip flexion, right knee extension, right foot dorsiflexion/plantarflexion near 5/5; distal leg sensation over L4/L5 dermatomes impaired b/l; L2/L3 dermatomes on thighs - sensation intact; no ankle clonus; no hyper-reflexia (reflexes knee/ankles 1+ or less b/l) psych - a/o x 3 Principal Diagnosis severe lumbar spinal stenosis Discharge Exam General: Grossly A&O. NAD. Cooperative. Appears slightly uncomfortable from his pain. HEENT: Atraumatic, normocephalic. Pulm: Mild insp crackles at R base. No respiratory distress. Cardiac: RRR, -mrg. Abdominal: Nontender, nondistended, soft. Msk: R toes s/p amputation. Integ: Mild chronic hyperpigmentation and stasis changes of shins. Discharge Data Allergies Allergy/AdvReac Type Severity Reaction Status Date / Time oxycodone AdvReac Severe DELIRIUM Verified 09/02/21 01:52 tramadol AdvReac Severe dizziness;a Verified 09/02/21 01:52 nxiety;sob gabapentin AdvReac Intermediate Nausea Verified 09/02/21 01:52 Consultations 12/01/21 15:30 ED Decision to Admit Stat 12/01/21 16:33 Consult Orthopedic Surgery Routine 12/01/21 18:48 Consult Nephrology Routine Ordered Studies 12/10/21 06:47 12/10/21 06:47 Abdomen/Pelvis CT 12/01/21 11:14 CT abd pelvis wo con CLINICAL HISTORY: back pain COMPARISON STUDY: 09/05/2021 CT DOSE: 1012.79 mGy.cm TECHNIQUE: Standard CT of the Abdomen and Pelvis was performed without IV contrast. The patient did not receive oral contrast. A dose lowering technique was utilized adhering to the principles of ALARA. FINDINGS: Lung base: There is again chronic pleural thickening at the right lung base with scarring present. The lung bases are otherwise clear. There is again mild cardiomegaly with coronary artery calcification. Abdominal cavity: There is no evidence for abdominal mass, adenopathy or ascites. Liver: The liver is homogeneous in attenuation on these limited noncontrast brenna ges.. Spleen: The spleen is homogeneous in attenuation on these limited noncontrast images. Pancreas: The pancreas is homogeneous in attenuation on these limited noncontrast images. Gall Bladder: Surgical clips are again present. Adrenal glands: The adrenal glands are normal in size and attenuation on these limited noncontrast images. Kidneys: There is again bilateral renal atrophy and bilateral renal cysts present. Extensive renal vascular calcification is present. There is no evidence for gross renal mass, calculus or hydronephrosis bilaterally. Bowel: There is again a right lower quadrant ileostomy. There is no evidence for bowel loop dilatation or obstruction. There is no evidence for mass lesion. There are no inflammatory changes present. There is no evidence for free air. Bladder: There is no evidence for focal bladder wall thickening, calculus or diverticulum. : There is no evidence for pelvic mass or adenopathy. Vasculature: There is an aortobiiliac graft in place. Atherosclerotic calcification is present. Osseous structures: There is no acute osseous pathology. Compared to previous examination, there is again degenerative changes seen at L4-5 with sclerosis present involving both the adjacent endplates of L4 on L5. No paraspinal soft tissue swelling is present. There is evidence for lumbar canal stenosis. If the patient is febrile or has an elevated white blood cell count, discitis would be in the differential diagnosis. MRI of the lumbar spine would be recommended for further evaluation. IMPRESSION: 1. Compared to previous examination, there is no evidence for bowel loop dilatation or obstruction. 2. No other evidence for acute acute intra-abdominal or pelvic abnormality on these limited noncontrast images. 2. However, there is no evidence of any widening of the L4-5 disc space level with sclerosis involving the adjacent vertebral body endplates. No paraspinal soft tissue swelling is seen. There is lumbar canal stenosis at this level. If the patient is febrile or has an elevated white blood cell count, the presence of discitis cannot be excluded. If indicated clinically, follow-up MRI would be the study of choice for further evaluation. ACT 112: Negative or not required by law. Electronically signed by: Aydin Fine M.D. 12/01/2021 1:06 PM Chest X-Ray 12/01/21 11:15 XR chest 1V portable CLINICAL HISTORY: sob. History of smoking COMPARISON STUDY: 09/02/2021 TECHNIQUE: 1 view of the chest FINDINGS: Single frontal view of the chest demonstrates the heart to be enlarged status post previous cardiothoracic surgery. There is a decreased inspiratory effort with elevation of the hemidiaphragms and crowding of the bronchovascular markings at the lung bases and centrally. There is minimal right basilar atelectasis. The lungs are clear of alveolar opacities. There is no evidence for pleural effusion. There is no evidence for vascular congestion. There is no acute osseous pathology. IMPRESSION: Decreased inspiration with minimal right basilar atelectasis. ACT 112: Negative or not required by law. Electronically signed by: Aydin Fine M.D. 12/01/2021 12:01 PM Lumbar Spine MRI 12/01/21 13:23 MR lumbar spine wo con CLINICAL HISTORY: Back pain. Abnormal appearance of L4-[address] Evaluate for discitis. COMPARISON: CT of the abdomen and pelvis from 12/01/2021 TECHNIQUE: Multiplanar multisequence images of the Lumbar Spine were performed without contrast. FINDINGS: There is old anterior wedge deformity of the superior endplate of L2. There is no evidence for an acute compression fracture. The heights of the remaining lumbar vertebral bodies are maintained. The vertebral bodies are in anatomic alignment. Discogenic changes are present involving vertebral body endplates at L4-5. Homogeneous marrow signal is seen without evidence for marrow edema or marrow replacement. There is no MR evidence for osteomyelitis. T12-L1: The disc space height is maintained. There are no focal disc protrusions or extrusions identified. The thecal sac and epidural fat are maintained. The neural foramen are patent bilaterally. There is no evidence for nerve root encroachment. The facet joints are within normal limits. L1-2: There is moderate disc space narrowing with disc/osteophyte complex present. There are no focal disc protrusions or extrusions identified. There is minimal flattening of thecal sac anteriorly. The neural foramen are patent bilaterally. There is no evidence for nerve root encroachment. Mild hypertrophic facet joint disease is seen bilaterally. L2-3: The disc space height is maintained. There are no focal disc protrusions or extrusions identified. There is moderate hypertrophic facet joint disease with thickening of ligamentum flavum bilaterally. This encroaches upon the thecal sac posterolaterally, bilaterally. This produces mild central canal stenosis. No significant foraminal stenosis or nerve root encroachment is seen. L3-4: The disc space height is maintained. There are no focal disc protrusions or extrusions identified. There is bulging annulus with flattening of thecal sac anteriorly. Additionally, there is moderate hypertrophic facet joint disease with thickening of ligamentum flavum present. The combination of these findings produce mild to moderate central canal stenosis. No significant foraminal stenosis is identified . No focal nerve root encroachment is seen. L4-5: The disc space height is maintained. There is diffuse increased signal seen within the disc on T2 and STIR weighted imaging with findings characteristic of chronic discitis. No paraspinal abscess is seen. No adjacent osteomyelitis is seen in the vertebral body endplates are sharply defined. There is encroachment on the thecal sac anteriorly. Additionally, moderate hypertrophi c facet joint disease with thickening of ligamentum flavum is present bilaterally. A combination of these findings produce marked central canal stenosis. There is also bilateral foraminal stenosis. L5-S1: There is moderate to marked disc space narrowing present. There are no focal disc protrusions or extrusions identified. The thecal sac and epidural fat are maintained. The neural foramen are patent bilaterally. There is no evidence for nerve root encroachment. Moderate hypertrophic facet joint disease is present bilaterally. IMPRESSION: 1. Evidence for chronic discitis involving the L4-5 level with extensive increased signal seen in bulging of the disc into the spinal canal anteriorly. No paraspinal abscess is seen. Additionally, moderate hypertrophic facet joint disease with thickening of ligamentum flavum is present bilaterally. The combination of these findings produce marked central canal stenosis and moderate to marked bilateral foraminal stenosis. There is no evidence for associated osteomyelitis. 2. Degenerative disc and degenerative joint disease are also seen at multiple positions disc space levels with segmental spinal stenosis present. The emergency department was called directly with the results of this study. ACT 112: Negative or not required by law. Electronically signed by: Aydin Fine M.D. 12/01/2021 3:[address] 12/02/21 07:53 CT lumbar spine wo con CLINICAL HISTORY: Chronic low back pain. Worsening symptoms with inability to ambulate. Evidence for chronic discitis by MRI. COMPARISON STUDY: MRI of the lumbar spine from 12/01/2021 CT DOSE: 813.25 mGy.cm TECHNIQUE: Standard CT of the Lumbar Spine was performed without IV contrast. A dose lowering technique was utilized adhering to the principles of ALARA. FINDINGS: Bones: Old anterior wedge deformity is again seen of the superior endplate of L2. There is no evidence for an acute fracture. There is minimal retrolisthesis of L4 on L5. The heights of the remaining lumbar vertebral bodies are maintained. The remaining lumbar vertebral bodies are in anatomic alignment. Disc spaces: As seen on the MRI, there is widening of the disc space at L4-5 with cortical irregularity and bony sclerosis present involving the inferior e ndplate of L4 and the superior endplate of L5. There is no evidence for osteomyelitis on the MRI. The lucency within the disc space extends posteriorly through the posterior elements and into the facet joints bilaterally with the findings characteristic of a pseudoarthrosis. Extensive hypertrophic facet joint disease is present with thickening of ligamentum flavum bilaterally. The combination of these findings produce marked central canal stenosis is seen on MRI. Moderate to marked disc space narrowing is present at T12-L1, L1-L2 and L5-S1. Segmental spinal stenosis is also seen as delineated on the MRI. Facet joints: Hypertrophic facet joint disease is also seen at multiple levels. This contributes to the spinal stenosis present. The findings are again delineated on the previous MRI. Degenerative changes are present involving the SI joints bilaterally. Soft tissues: The prevertebral soft tissues are within normal limits. Aortobiiliac graft is in place. IMPRESSION: Compared to the MRI examination, there is no significant interval change with evidence for chronic discitis at L4-5. Marked central canal stenosis present at this level as delineated above and as described on the MRI. There is a pseudoarthrosis present at this level bilaterally related to posterior extension of the findings into the posterior elements bilaterally. Findings are characteristic of instability in the spinal decompression and fusion should be considered. ACT 112: Negative or not required by law. Electronically signed by: Aydin Fine M.D. 12/02/2021 9:40 AM Chest X-Ray 12/04/21 16:33 XR chest 1V portable HISTORY: Follow right lower lobe opacity. elevated procal COMPARISON: Chest 12/01/2021. FINDINGS: The left lung apex is partially obscured by the patient's head. No definite pneumothorax. The heart remains mildly enlarged. There are poststern otomy changes. Slightly rotated study. There is mild central pulmonary vascular congestion without overt edema. Stable blunting of the bilateral costophrenic sulci. No definite pleural effusions. Progressive left base airspace opacity. IMPRESSION: 1. Progressive left basilar airspace opacity. This may represent a developing pneumonia and could be secondary to aspiration. 2. Cardiomegaly and mild congestive change. ACT 112: Negative or not required by law. Electronically signed by: Joey Leggett M.D. 12/04/2021 6:58 PM Hospital Course (1) Aspiration pneumonia: 76 y/o M w/ PMHx of pAF, spinal stenosis CAD, CHF, COPD on home 2L O2, ESRD, and ileostomy who presents w/ 1 month of worsening lumbar radiculopathy w/ lumbar CT/MRI concerning for chronic L4-L5 discitis and central spinal stenosis from disc bulge. Neurogenic claudication in the setting of lumbar spinal stenosis: - MRI L-spine demonstrating chronic discitis appearance involving L4-L5 level with extensive increased signal in bulging of the disc into the spinal canal anteriorly no paraspinal abscess noticed - Initially started on IV vancomycin and Rocephin for concern of discitis - however antibiotics were discontinued in the setting of noninflammatory/noninfectious etiology - Working with PT and OT - Lyrica 75 mg daily (renally dosed) in the setting of dialysi. Trial of transition to Cymbalta for chronic pain control, will discontinue Paxil - Orthopedics consulted. Spoke w/ anesthesiology: too high risk because of complex PMHx. - Following discussions with [facility] concern that patient would not be a surgical candidate following transfer and therefore at this time will not transfer - Will reach out to [facility] for second opinion---> outpatient evaluation is being arranged. Aspiration pneumonia: - Concerns for aspiration pneumonia; h/o aspiration demonstrated on speech evaluation previously in May 2021 - Chest x-ray on 12/05 demonstrating concern for progressive left basilar airspace opacity - Pro-Rex 1.8 - Started (12/05) on Unasyn renal dosing for risk of aspiration pneumonia, completed for 5 day course ESRD: - M/W/ schedule at [facility] (continue while inpatient) - hyperK (resolved), hyper phos. - Continue home PO phos binder. Hypomagnesemia: - Management per nephro - continue nephro caps Chronic right CHF: - With moderate pulmonary hypertension - 05/2021 echo w/ EF 60-65. Mod concentric LVH. Borderline RV enlargement. Moderate LA and RA dilation. moderate aortic valve sclerosis. RVSP elevated at 40-50mmhg. RVSP reduced as assessed by TAPSE - Volume appears compensated at this time. Atrial Fibrillation: - continue home regimen amio 200mg PO every other day - transiently in afib 12/02/21 this admission, but since reverted to NSR Anemia: - H/H acceptable at this time. Epo per nephro. - Macrocytic. B12 and folate wnl. COPD: - On chronic oxygen supplementation at 2 L/min - Does not appear to be in acute exacerbation at this time Coronary Artery Disease: - hx of CABG. No ischemic symptoms at this time - trop at baseline - continue statin, ASA, plavix Hypothyroidism: - stable, continue home levothyroxine Peripheral Artery Disease: - hx of fem-pop bypass. continue statin, asa, plavix Insomnia: - PDMP confirms he takes 15-30mg of temazepam nightly. Tolerated 7.5mg reduced dose during this admission. Consider continuing at this reduced dose to avoid excessive drowsiness. Palliative care discussion, brought up discussion, pt. will review POLST with sister - continue to discuss during hospitalization and in outpatient setting (2) Congestion of upper respiratory tract: (3) Neurogenic claudication due to lumbar spinal stenosis: (4) Opacity of lung on imaging study: (5) Insomnia: (6) Peripheral vascular disease: (7) Radicular leg pain: (8) Intractable low back pain: (9) Discitis: (10) Spinal stenosis: (11) Small bowel obstruction: (12) Atrial fibrillation: (13) CAD (coronary artery disease): (14) Chronic right-sided CHF (congestive heart failure): (15) COPD (chronic obstructive pulmonary disease): (16) ESRD (end stage renal disease) on dialysis: (17) Chronic respiratory failure with hypoxia: (18) Ileostomy in place: (19) CKD (chronic kidney disease): (20) Diastolic heart failure: (21) Myocardial infarct, old: (22) Hx of CABG: (23) H/O abdominal aortic aneurysm repair: Total Time Total Time Spent Total Time Spent (In Minutes): <30 Discharge Plan Discharge Items Patient Disposition: Transfer Inpatient Rehab Fac Reason For Visit: SEVERE LUMBAR BACK PAIN, ABNORMAL MRI LUMBAR SPIN Discharge Diagnosis: severe lumbar spinal stenosis Activity: Resume your previous activity Non-emergency contact: Primary Care Provider and Surgeon Call non-emergency contact if: you have any medication questions Follow-up/Referrals: Emil Lazcano MD [Primary Care Provider] - Diet: Dialysis Renal and Heart Healthy Diet Texture: Easy to Chew Addtl Attending Provider Instructions: 76 y/o M w/ PMHx of pAF, spinal stenosis CAD, CHF, COPD on home 2L O2, ESRD, and ileostomy who presents w/ 1 month of worsening lumbar radiculopathy w/ lumbar CT/MRI concerning for chronic L4-L5 discitis and central spinal stenosis from disc bulge. Neurogenic claudication in the setting of lumbar spinal stenosis: - MRI L-spine demonstrating chronic discitis appearance involving L4-L5 level with extensive increased signal in bulging of the disc into the spinal canal anteriorly no paraspinal abscess noticed - Initially started on IV vancomycin and Rocephin for concern of discitis - however antibiotics were discontinued in the setting of noninflammatory/noninfectious etiology - Working with PT and OT - Lyrica 75 mg daily (renally dosed) in the setting of dialysi. Trial of transition to Cymbalta for chronic pain control, will discontinue Paxil - Orthopedics consulted. Spoke w/ anesthesiology: too high risk because of complex PMHx. - Following discussions with [facility] concern that patient would not be a surgical candidate following transfer and therefore at this time will not transfer - Will reach out to [facility] for second opinion---> outpatient evaluation is being arranged. Aspiration pneumonia: - Concerns for aspiration pneumonia; h/o aspiration demonstrated on speech evaluation previously in May 2021 - Chest x-ray on 12/05 demonstrating concern for progressive left basilar airspace opacity - Pro-Rex 1.8 - Started (12/05) on Unasyn renal dosing for risk of aspiration pneumonia, completed for 5 day course ESRD: - M/W/F schedule at [facility] (continue while inpatient) - hyperK (resolved), hyper phos. - Continue home PO phos binder. Hypomagnesemia: - Management per nephro - continue nephro caps Chronic right CHF: - With moderate pulmonary hypertension - 05/2021 echo w/ EF 60-65. Mod concentric LVH. Borderline RV enlargement. Moderate LA and RA dilation. moderate aortic valve sclerosis. RVSP elevated at 40-50mmhg. RVSP reduced as assessed by TAPSE - Volume appears compensated at this time. Atrial Fibrillation: - continue home regimen amio 200mg PO every other day - transiently in afib 12/02/21 this admission, but since reverted to NSR Anemia: - H/H acceptable at this time. Epo per nephro. - Macrocytic. B12 and folate wnl. COPD: - On chronic oxygen supplementation at 2 L/min - Does not appear to be in acute exacerbation at this time Coronary Artery Disease: - hx of CABG. No ischemic symptoms at this time - trop at baseline - continue statin, ASA, plavix Hypothyroidism: - stable, continue home levothyroxine Peripheral Artery Disease: - hx of fem-pop bypass. continue statin, asa, plavix Insomnia: - PDMP confirms he takes 15-30mg of temazepam nightly. Will trial decrease from 15mg to 7.5mg because of excessive drowsiness. Palliative care discussion, brought up discussion, pt. will review POLST with sister - continue to discuss during hospitalization and in outpatient setting Addtl Accounting Systems Manager Provider Instructions: A referral has been sent to [facility] on your behalf. [facility] is going to review your medical information and imaging, then reach out to you directly regarding an appointment. If you do not hear from them within one week, you can follow up with them directly by calling #[phone] and selecting the option of "specialty scheduling". Or, you can reach out to the [facility] Nurse Navigator at #[phone] for further assistance. Pending Studies at Discharge: No Stand-Alone Forms: My [facility] Clicktivated Skilled Items Patient informed of condition?: Yes DNR: No Discharge Level of Care: Acute rehab Communicable Disease: No Discharge Prognosis: Stable Lines: None Urinary Catheter: No Medications and DC Order Prescriptions: New ipratropium-albuterol 0.5 mg-3 mg(2.5 mg base)/3 mL Solution For Nebulization 3 ml inhalation Q4R PRN (Reason: shortness of breath or wheezing) Qty: 3 RF: 0 duloxetine 30 mg Capsule,Delayed Release(Dr/Ec) 30 mg PO QAM 30 Days Qty: 30 RF: 0 Continued atorvastatin 40 mg tablet 40 mg PO HS Qty: 90 RF: 3 Breo Ellipta 200-25 mcg/dose blister with device 1 inh INHALATION QAM Qty: 84 RF: 3 levothyroxine 88 mcg tablet 88 mcg PO DAILY Qty: 90 RF: 3 Spiriva with HandiHaler 18 mcg capsule, w/inhalation device 1 cap INHALATION QAM Qty: 1 RF: 4 pantoprazole 40 mg tablet,delayed release (DR/EC) 40 mg PO QAM Qty: 90 RF: 3 amiodarone 200 mg tablet 200 mg PO Q OTHER DAY Qty: 14 RF: 5 Lyrica 75 mg capsule 75 mg PO QAM Qty: 30 RF: 3 famotidine 20 mg tablet 20 mg PO 3XWK Qty: 90 RF: 3 temazepam 15 mg capsule 15 mg PO HS PRN (Reason: Sleep) Qty: 60 RF: 0 aspirin [Aspirin Low Dose] 81 mg Tablet,Delayed Release (Dr/Ec) 81 mg PO DAILY RF: 0 Triphrocaps 1 mg capsule 1 mg PO DAILY RF: 0 calcium acetate(phosphat bind) 667 mg Capsule 667 mg PO DAILY RF: 0 docusate sodium 100 mg capsule 100 mg PO HS RF: 0 sennosides [Senokot] 8.6 mg Tablet 8.6 mg PO DAILY PRN (Reason: Constipation) RF: 0 ipratropium-albuterol 0.5 mg-3 mg(2.5 mg base)/3 mL Solution For Nebulization 3 ml INHALATION Q4H PRN (Reason: Shortness Of Breath) RF: 0 lidocaine [Aspercreme (lidocaine HCl)] 4 % Adhesive Patch,Medicated 1 patch TOPICAL DAILY PRN (Reason: Pain) RF: 0 ropinirole 0.25 mg Tablet 0.25 mg PO HS RF: 0 nitroglycerin [Nitrostat] 0.4 mg Tablet, Sublingual 0.4 mg sublingual DIRECTED PRN (Reason: Chest Pain) RF: 0 alum-mag hydroxide-simeth 200-200-20 mg/5 mL Suspension 30 ml PO DIRECTED PRN (Reason: Indigestion) RF: 0 diclofenac sodium [Voltaren Arthritis Pain] 1 % gel 2 g topical QID Qty: 100 RF: 0 acetaminophen 325 mg capsule 650 mg PO QID PRN (Reason: pain) Qty: 30 RF: 0 clopidogrel 75 mg tablet 75 mg PO QDL RF: 0 Discontinued paroxetine HCl 20 mg tablet 20 mg PO HS Qty: 90 RF: 3 Discharge Orders: Discharge Order (Routine); Ordered 12/10/21 Ordered By: Rachel Larkin Admission Data Admit Date/Time: 12/01/21 16:26 Attending Provider: Jake Osuna Admit Provider: Tan Chacon Primary Care Provider: Emil Lazcano Other Providers: Tan Chacon ; Kyle Collins ; Christina Landrum ; Janis Wang ; [facility] Other Interventions: Discharge Summary Assessment (RN) Last Done: 12/10/21 13:53 Supervising Physician Co-Signing Physician Notes I personally examined the patient and verified all darnell points of history and exam, discussed case, and agree with decision making with Dr Sanchez back pain and radicular sx ongoing. wonders if this is as good as it will ever get vitals noted nad heent nc at mmm breathing unlabored no accessory muscles good effort neuorgenic claudication/spinal stenosis - PT/OT eval and treat. consider further surgical opinions on overall risk/benefit. we discussed this today in depth - no "good options" - one road being pain control/therapy - but might have limited upside and then can have consequent risk of deconditioning/uncontrolled pain/etc. other road would be to continue to pursue surgical opinion - but given risk, while it might affect pain relief and nerve decompression, he also appears to have excessively high risk for a surgical approach leading to a chain of events that ultimately causes mortality. for rehab today - for now follow PT/Pain control road, but will also ask for outpt surgical opinion DVT proph - heparin SQ utilzied while here otherwise as above Resident Activity Tracking Resident Involvement: Resident Care Provided Care Provided: Adult Hospital Medicine
[2021-12-10] MEDS ORDERED: PREGABALIN 75 MG CAP PO SCH (14:00)
[2021-12-10] MEDS ORDERED: ACETAMINOPHEN 325 MG TAB PO SCH (14:00)
[2021-12-10] MEDS: ASPIRIN 81 MG ECTAB PO SCH (17:03)
[2021-12-10] MEDS: CLOPIDOGREL BISULFATE 75 MG TAB PO SCH (17:06)
--- NOTE | 2021-12-10 17:23 | Billing Data ---
Date of Service December 10, 2021 Coding Level of Care Code D/C DAY MANAGEMENT <30 MINS
[2021-12-11] MEDS ORDERED: EPOETIN ALFA 4,000 UNIT/ML VIAL IV ONE (07:00)
[2021-12-11] MEDS ORDERED: SODIUM CHLORIDE 0.9% 1000ML 1,000 ML IV PRN (07:00)
== END 2021-12-10 19:27 | DRG 551 ==
LOC: ED 10:59 → 2N 16:26 → SUATTDRO 16:26 → 2N 18:45

== ENCOUNTER 2022-02-07 08:42 | Inpatient (IN) ==
[~2022-02-07 08:42] MED LIST changes: -ACET-1311 PO; -ALBUAER INH; -ALPR-411 PO; -AMIO200T4 PO; -ASPI81TA28 PO; -ATOR-24 PO; +CALCIUM CHLORIDE 10% 10 ML SYR IV ONE; -CARV3.122 PO; -CYAN100T PO; +DEXTROSE 50% 50 ML SYRINGE IV ONE; -DIPH-437 PO; -FAMO1TAB47 PO; -FLUT1INH7 PO; -LACT12LO28 EXT; -LEVO-366 PO; -LIDO1PAD2 EXT; +MAG SULFATE 50% 1GM/2ML VIAL IV ONE; -MIDO2.5T PO; -NTRGSL/4 UT; -PARO1TAB27 PO; -PHS667 PO; -POLY335019 PO; -PRLSR20 PO; +SODIUM BICARB 8.4% INJ 50 MEQ/50 ML SYR IV ONE; +SODIUM CHLORIDE 0.9% 10ML FLUSH IV ONE; +SODIUM CHLORIDE 0.9% INJ 10 ML VIAL IV ONE; -SPRIN/30 INH; -TEMA30CA4 PO; -TRAZ100T29 PO
[2022-02-07] MEDS ORDERED: SODIUM CHLORIDE 0.9% 250 ML IV ONE (09:03)
[2022-02-07] MEDS ORDERED: ACETAMINOPHEN 1000 MG/100 ML IV IV STA (09:03)
[2022-02-07] MEDS ORDERED: ONDANSETRON INJ 2 MG/ML 2 ML VIAL IV STA (09:03)
[2022-02-07] MEDS ORDERED: KETOROLAC TROMETHAMINE 15 MG/ML VIAL IV ONE (09:05)
--- NOTE | 2022-02-07 09:17 | Emergency Department Note ---
Impression & Plan SBO (small bowel obstruction), Vomiting, Leukocytosis, Acute hyperkalemia ED Provider Note NAME: RAMA AYERS AGE: 76 SEX: M : 1945 ARRIVES VIA: Ambulance INFORMANT: [Patient][nurses] ED PROVIDER(S): [Walker Yoon MD] CHIEF COMPLAINT: Vomiting HISTORY OF PRESENT ILLNESS: The patient is a 76-year-old male presents to the ER with vomiting since last night. He complains of some diffuse mild abdominal pain and abdominal distention. He has an ileostomy. The patient received some Compazine for his nausea. The medication made him sleepy but he is still nauseated. There is no shortness of breath. There has been no cough or fever. The patient cannot ever recall if he has had a bowel obstruction. The patient is in need of dialysis today. His last dialysis was 2 days ago. He was sent here for evaluation rather than the dialysis suite. REVIEW OF SYSTEMS: See HPI for pertinent positives and negatives. A total of ten systems were reviewed and were otherwise negative. PMHx/PSHx: See Below SOCIAL HISTORY: See Below. PHYSICAL EXAM: GENERAL: Patient is in mild distress. Sleepy. HEENT: No acute trauma, normocephalic atraumatic, mucous membranes moist, no nasal congestion, no scleral icterus. NECK: No stridor, no adenopathy, no meningismus, trachea is midline. LUNGS: Clear to auscultation bilaterally when listening anterior, no wheeze, no rhonchi, breath sounds equal. HEART: Without murmurs gallops or rubs, regular rate and rhythm. ABDOMEN: Soft, mildly diffusely tender. There is tympany to percussion. There is an ileostomy on the right side of the abdomen with a scant amount of stool in the bag. EXTREMITIES: No cyanosis. There is mild bilateral pedal edema with some chronic skin change. There is a bandage on the right leg. The dressing is dry. NEUROLOGIC: Oriented x 3, no acute motor or sensory deficits, no focal weakness. Sleepy. SKIN: No rash, no jaundice, no diaphoresis. DIFFERENTIAL DIAGNOSIS: Appendicitis, testicular torsion, diverticulitis, UTI, obstruction, mesenteric ischemia, aortic pathology, inflammatory bowel disease, renal colic, PUD, pancreatitis, biliary pathology, hernia, volvulus, constipation, as well as other pathologies. EMERGENCY DEPARTMENT COURSE/PROCEDURES: ECG: Indication was abdominal pain and vomiting. The ECG shows a sinus rhythm with some sinus arrhythmia and a first-degree AV block. The rate is 81. There is some diffuse subtle ST depression. I see no ST elevation. No PVCs. The QTC is 450. Compared to an ECG from 02 December 2021, sinus rhythm is now present, the rate has decreased. Continuous Cardiac Monitoring: An order was placed for continuous cardiac monitoring. The monitor shows a rate of 78 with sinus rhythm with a first- degree AV block. Critical Care Note: I have personally spent 51 minutes of critical care time in the direct management of this patient. This includes bedside care, interpretation of diagnostic studies, and testing, discussion with consultants, patient, and family members, and other required patient management activities. This 51 minutes is in excess of all separately billable procedures. MEDICAL DECISION MAKING: There is a moderate leukocytosis, this could be consistent with infection or pain. A mild anemia was noted with a hemoglobin of 10.4. This anemia is baseline for the patient. There is a normal platelet count. Renal panel testing showed a high creatinine consistent with his dialysis need. Potassium was a bit elevated also at 6. Lactic acid level was not elevated making bowel ischemia or sepsis less likely. Magnesium slightly low at 1.6. No concerning liver enzyme elevation. No evidence for pancreatitis. COVID testing returned negative. Chest film showed some cardiomegaly, no CHF or pneumonia. Abdominal and pelvis CT does show evidence for a small bowel obstruction, no bowel perforation. Patient received IV saline, 250 cc. He received IV Zofran for nausea. He was given IV Toradol for pain. He received IV Tylenol for pain. The patient has a small bowel obstruction. He did consent to an NG tube. This was placed by the nursing staff and set to low intermittent suction. I spoke with the patient, I talked to case management. I did speak with the on- call hospitalist. Patient will hopefully improve with bowel decompression, surgical intervention is not warranted emergently but, of course, could be necessary if the patient is not improving with more conservative measures. Past Med/Surg History Medical History AAA (abdominal aortic aneurysm) Acute pseudo-obstruction of bowel Anemia of chronic disease Anemia, chronic renal failure Anxiety AV fistula right arm CAD (coronary artery disease) Chronic back pain Chronic GERD Chronic right-sided CHF (congestive heart failure) Chronic ulcer of great toe of left foot with fat layer exposed COPD (chronic obstructive pulmonary disease) COPD (chronic obstructive pulmonary disease) CVA (cerebral vascular accident) "NO RESIDUAL EFFECTS" PER RECORDS Dependence on renal dialysis Depression Dermatitis Diastolic CHF DVT (deep venous thrombosis) Elevated troponin Encounter for central line placement Exertional dyspnea Fecal impaction GERD (gastroesophageal reflux disease) H/O: gout Hyperkalemia Hyperlipidemia Hypothyroidism Hypothyroidism Ileostomy in place Insomnia 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 H/O abdominal aortic aneurysm repair 2011 H/O [id number] bypass 2012 H/O colectomy H/O mitral valve repair 2010; ?AVR PER RECORDS Hx of CABG S/P CABG X2 (DURING MVR) 2010 S/P AAA repair S/P ablation of atrial fibrillation S/P cholecystectomy S/P femoral-popliteal bypass surgery S/P MVR (mitral valve repair) S/P split thickness skin graft Status post transmetatarsal amputation of right foot Family History Mother Essential hypertension Father , age 76 Myocardial infarction Denies family history of Colon cancer Ovarian cancer Prostate cancer Breast cancer Social History Smoking Status: Former smoker Tobacco Type: Cigarettes Years Smoked: 5; Second Hand Exposure: No; Hx Alcohol Use: No Hx Substance Use: No Preferred Language: Malay Communication Ability: Effective Visual Impairment: No Limitations Hearing Ability: Normal 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 Battery Required: No Beliefs That Will Affect Care: None marital status: / marital status details: 1 daughter Current Living Situation: Family Current Living Situation Comment: Lives with sister 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 Feels Safe at Home: Yes Childhood Exposure to Second-Hand Smoke: No Dental Care, Regularly: Yes Physical Activity Frequency: Other Physical Activity Frequency Comment: Physical activity limited by patients medical conditions Seatbelt Use: always Sunscreen Use: Yes Assistive Devices: Wheelchair Allergies Allergies Allergy/AdvReac Type Severity Reaction Status Date / Time oxycodone AdvReac Severe DELIRIUM Verified 02/07/22 09:44 tramadol AdvReac Severe dizziness;a Verified 02/07/22 09:44 nxiety;sob gabapentin AdvReac Intermediate Nausea Verified 02/07/22 09:44 Home Meds Home Medications Medication Instructions Recorded Confirmed calcium acetate(phosphat bind) 667 667 mg PO TIDM 08/23/18 02/07/22 mg capsule docusate sodium 100 mg capsule 100 mg PO BID 05/31/19 02/07/22 aspirin 81 mg tablet,delayed 81 mg PO QDL 05/01/20 02/07/22 release (Aspirin Low Dose) lidocaine 4 % topical patch 1 patch TOPICAL DAILY 04/08/21 02/07/22 (Aspercreme (lidocaine)) nitroglycerin 0.4 mg sublingual 0.4 mg SUBLINGUAL DIRECTED PRN 04/08/21 02/07/22 tablet (Nitrostat) ropinirole 0.25 mg tablet 0.25 mg PO HS 04/08/21 02/07/22 clopidogrel 75 mg tablet 75 mg PO QDL 05/31/21 02/07/22 amiodarone 200 mg tablet 200 mg PO Q OTHER DAY 02/07/22 02/07/22 calcium carb-Ca gluc 500 mg 1 tab PO QAM 02/07/22 02/07/22 calcium-magnesium ox-Mg gluc 250 mg tablet (Calcium Magnesium) cinacalcet 30 mg tablet (Sensipar) 30 mg PO QAM 02/07/22 02/07/22 dexamethasone 1 mg tablet 3 mg PO QAM 02/07/22 02/07/22 fluticasone furoate 200 1 inh INHALATION DAILY@1200 02/07/22 02/07/22 mcg-vilanterol 25 mcg/dose inhalation powder (Breo Ellipta) hydrocodone 10 mg-acetaminophen 1 tab PO 3XWK 02/07/22 02/07/22 325 mg tablet ipratropium 20 mcg-albuterol 100 1 puff INHALATION Q6H PRN 02/07/22 02/07/22 mcg/actuation mist for inhalation (Combivent Respimat) levothyroxine 88 mcg tablet 88 mcg PO HS 02/07/22 02/07/22 menthol 4 % topical gel (Biofreeze 1 applic TOPICAL 6XD 02/07/22 02/07/22 (menthol)) temazepam 15 mg capsule 30 mg PO HS PRN 02/07/22 02/07/22 tiotropium bromide 18 mcg capsule 1 cap INHALATION QDL 02/07/22 02/07/22 with inhalation device (Spiriva with HandiHaler) vitamin B complex and vitamin C 1 cap PO QDL 02/07/22 02/07/22 no.20-folic acid 1 mg capsule Previous Rx's Medication Instructions Recorded atorvastatin 40 mg tablet 40 mg PO HS #90 tab 11/13/20 acetaminophen 325 mg capsule 650 mg PO QID PRN #30 cap 04/13/21 pantoprazole 40 mg tablet,delayed 40 mg PO QAM #90 tab 07/11/21 release pregabalin 75 mg capsule (Lyrica) 75 mg PO QAM #30 cap 10/15/21 Results & Data (ED) Vital Signs Vital Signs - 24 hr 02/07/22 08:50 02/07/22 08:59 02/07/22 09:00 Temperature 36.8 C Temperature Source Oral Pulse Rate 76 78 77 Pulse Rate [Apical] 78 Pulse Rate from SpO2 Sensor 79 Respiratory Rate 21 20 24 Respiratory Effort / Characteristics Non-Labored Spontaneous Respiratory Depth Normal Respiratory Pattern Regular Blood Pressure 140/77 Blood Pressure [Left Arm] 140/77 Blood Pressure Mean 98 Blood Pressure Mean [Left Arm] 98 Pulse Oximetry 95 Oxygen Delivery Method Nasal Cannula Oxygen Flow Rate 2 Sepsis Recent Fever Within 48 Hours No Sepsis New/Unexplained Change in Mental Status No Sepsis Action Taken by Nursing No Action Required 02/07/22 09:11 02/07/22 09:30 02/07/22 09:56 Temperature Temperature Source Pulse Rate 78 75 75 Pulse Rate [Apical] Pulse Rate from SpO2 Sensor Respiratory Rate 20 19 15 Respiratory Effort / Characteristics Respiratory Depth Respiratory Pattern Blood Pressure 137/77 Blood Pressure [Left Arm] Blood Pressure Mean 97 Blood Pressure Mean [Left Arm] Pulse Oximetry 95 Oxygen Delivery Method Nasal Cannula Oxygen Flow Rate 2 Sepsis Recent Fever Within 48 Hours Sepsis New/Unexplained Change in Mental Status Sepsis Action Taken by Nursing 02/07/22 10:09 02/07/22 10:10 02/07/22 10:30 Temperature Temperature Source Pulse Rate 73 70 Pulse Rate [Apical] Pulse Rate from SpO2 Sensor Respiratory Rate 19 11 L 15 Respiratory Effort / Characteristics Respiratory Depth Respiratory Pattern Blood Pressure 127/64 Blood Pressure [Left Arm] Blood Pressure Mean 85 Blood Pressure Mean [Left Arm] Pulse Oximetry Oxygen Delivery Method Oxygen Flow Rate Sepsis Recent Fever Within 48 Hours Sepsis New/Unexplained Change in Mental Status Sepsis Action Taken by Nursing 02/07/22 11:00 02/07/22 11:11 02/07/22 11:30 Temperature Temperature Source Pulse Rate 72 71 72 Pulse Rate [Apical] Pulse Rate from SpO2 Sensor Respiratory Rate 14 16 13 Respiratory Effort / Characteristics Respiratory Depth Respiratory Pattern Blood Pressure 140/73 126/76 Blood Pressure [Left Arm] Blood Pressure Mean 95 92 Blood Pressure Mean [Left Arm] Pulse Oximetry Oxygen Delivery Method Oxygen Flow Rate Sepsis Recent Fever Within 48 Hours Sepsis New/Unexplained Change in Mental Status Sepsis Action Taken by Nursing 02/07/22 12:00 02/07/22 12:30 Temperature Temperature Source Pulse Rate 71 78 Pulse Rate [Apical] Pulse Rate from SpO2 Sensor Respiratory Rate 12 18 Respiratory Effort / Characteristics Respiratory Depth Respiratory Pattern Blood Pressure 124/69 134/75 Blood Pressure [Left Arm] Blood Pressure Mean 87 94 Blood Pressure Mean [Left Arm] Pulse Oximetry 98 Oxygen Delivery Method Nasal Cannula Oxygen Flow Rate 2 Sepsis Recent Fever Within 48 Hours Sepsis New/Unexplained Change in Mental Status Sepsis Action Taken by [place] Medications Current Medication List: was personally reviewed by me Laboratory Data Attestation: I reviewed the patient's lab results. Result diagrams: 02/07/22 11:10 02/07/22 11:10 Lab Results 02/07/22 02/07/22 02/07/22 Range/Units 09:47 09:52 11:10 WBC 15.20 H (4.8-10.8) K/uL RBC 3.06 L (4.7-6.1) M/uL Hgb 10.4 L (14.0-18.0) g/dL Hct 30.8 L (42-52) % MCV 100.7 H (80-100) fL MCH 34.0 (25-34) pg MCHC 33.8 (32-36) g/dL RDW Std Deviation 57.2 H (36.4-46.3) fL RDW Coeff of Jolanta 15.6 H (11.5-14.5) % Plt Count 140 (130-400) K/uL MPV 9.6 (7.4-10.4) fL Immature Gran % (Auto) 3.6 % Neut % (Auto) 79.9 % Lymph % (Auto) 8.6 % [place] % (Auto) 7.4 % Eos % (Auto) 0.3 % Baso % (Auto) 0.2 % Neut # (Auto) 12.14 H (1.4-6.5) K/uL Lymph # (Auto) 1.31 (1.2-3.4) K/uL [place] # (Auto) 1.13 H (0.11-0.59) K/uL Eos # (Auto) 0.05 (0-0.5) K/uL Baso # (Auto) 0.03 (0-0.2) K/uL Immature Gran # (Auto) 0.54 H (0.00-0.02) K/uL PT (9.0-12.0) Seconds INR (0.9-1.1) Sodium (136-145) mmol/L Potassium (3.5-5.1) mmol/L Chloride (98-107) mmol/L Carbon Dioxide (21-32) mmol/L Anion Gap (3-11) BUN (6-23) mg/dl Creatinine (0.6-1.4) mg/dl Est Cr Clr Drug Dosing ml/min Est GFR ( Amer) ml/min Est GFR (Non-Af Amer) ml/min BUN/Creatinine Ratio (10-20) Glucose (70-99(Fasting)) mg/dl Lactate 1.5 (0.4-2.0) mmol/L Calcium (8.5-10.1) mg/dl Phosphorus (2.5-4.9) mg/dl Magnesium (1.7-2.4) mg/dl Total Bilirubin (0.2-1.0) mg/dl AST (13-39) U/L ALT (7-52) U/L Alkaline Phosphatase (34-104) U/L Total Protein (6.0-8.3) gm/dl Albumin (3.4-5.0) gm/dl Globulin (2.5-4.0) gm/dl Albumin/Globulin Ratio (0.9-2) Lipase (11-82) U/L SARS-CoV-2, RNA, NAAT NEGATIVE (NEGATIVE) 02/07/22 02/07/22 Range/Units 11:10 11:10 WBC (4.8-10.8) K/uL RBC (4.7-6.1) M/uL Hgb (14.0-18.0) g/dL Hct (42-52) % MCV (80-100) fL MCH (25-34) pg MCHC (32-36) g/dL RDW Std Deviation (36.4-46.3) fL RDW Coeff of Jolanta (11.5-14.5) % Plt Count (130-400) K/uL MPV (7.4-10.4) fL Immature Gran % (Auto) % Neut % (Auto) % Lymph % (Auto) % [place] % (Auto) % Eos % (Auto) % Baso % (Auto) % Neut # (Auto) (1.4-6.5) K/uL Lymph # (Auto) (1.2-3.4) K/uL [place] # (Auto) (0.11-0.59) K/uL Eos # (Auto) (0-0.5) K/uL Baso # (Auto) (0-0.2) K/uL Immature Gran # (Auto) (0.00-0.02) K/uL PT 10.9 (9.0-12.0) Seconds INR 1.0 (0.9-1.1) Sodium 133 L (136-145) mmol/L Potassium 6.0 H (3.5-5.1) mmol/L Chloride 89 L (98-107) mmol/L Carbon Dioxide 29 (21-32) mmol/L Anion Gap 15 H (3-11) BUN 70 H (6-23) mg/dl Creatinine 8.65 H* (0.6-1.4) mg/dl Est Cr Clr Drug Dosing 9.5 ml/min Est GFR ( Amer) 6.2 ml/min Est GFR (Non-Af Amer) 5.4 ml/min BUN/Creatinine Ratio 8.1 L (10-20) Glucose 93 (70-99(Fasting)) mg/dl Lactate (0.4-2.0) mmol/L Calcium 8.6 (8.5-10.1) mg/dl Phosphorus 7.3 H (2.5-4.9) mg/dl Magnesium 1.6 L (1.7-2.4) mg/dl Total Bilirubin 0.7 (0.2-1.0) mg/dl AST 18 (13-39) U/L ALT 26 (7-52) U/L Alkaline Phosphatase 89 (34-104) U/L Total Protein 6.0 (6.0-8.3) gm/dl Albumin 3.3 L (3.4-5.0) gm/dl Globulin 2.7 (2.5-4.0) gm/dl Albumin/Globulin Ratio 1.2 (0.9-2) Lipase 24 (11-82) U/L SARS-CoV-2, RNA, NAAT (NEGATIVE) Administered Medications Discontinued Medications Acetaminophen (Acetaminophen 1000 Mg/100 Ml Iv) 1,000 mg IV NOW STA Stop: 02/07/22 09:04 Last Admin: 02/07/22 09:49 Dose: 1,000 mg Documented by: [id number] Sodium Chloride (Nss) 250 mls @ 999 mls/hr IV .Q16M ONE Stop: 02/07/22 09:18 Last Infusion: 02/07/22 10:37 Dose: 0 mls/hr Documented by: [id number] Admin: 02/07/22 09:49 Dose: 999 mls/hr Documented by: [id number] Ketorolac Tromethamine (Ketorolac Tromethamine 15 Mg/Ml Vial) 10 mg IV NOW ONE Stop: 02/07/22 09:06 Last Admin: 02/07/22 09:48 Dose: 10 mg Documented by: [id number] Ondansetron HCl (Ondansetron Inj 2 Mg/Ml 2 Ml Vial) 4 mg IV NOW STA Stop: 02/07/22 09:04 Last Admin: 02/07/22 09:48 Dose: 4 mg Documented by: [id number] Imaging Data Radiologist's Impression: Abdomen/Pelvis CT 02/07/22 09:03 CT SCAN OF THE ABDOMEN AND PELVIS WITHOUT IV CONTRAST CLINICAL HISTORY: Generalized abdominal pain. Nausea and vomiting. Diarrhea. COMPARISON STUDY: Abdominal CT dated 12/01/2021. MRI of the lumbar spine dated 12/01/2021. TECHNIQUE: CT scan of the abdomen and pelvis is performed from the lung bases to the proximal femora. Images are reviewed in the axial, sagittal, and coronal planes. IV contrast was not administered for this examination. Note that the examination was performed in suboptimal fashion without oral and IV contrast. A dose lowering technique was utilized adhering to the principles of ALARA. CT DOSE: 835.21 mGy.cm FINDINGS: Lung bases: The heart is markedly enlarged and without pericardial effusion. The patient is status post midline sternotomy and mitral valve surgery. The coronary arteries are densely calcified. The distal esophagus appears mildly thick-walled and fluid-filled. Dependent atelectasis/fibrosis is again seen at the right lung base. Milder scarring/atelectasis is seen in the left lung base. There is no airspace consolidation typical for pneumonia or pleural effusion. Scattered calcified granulomas are observed. Liver: The unenhanced liver is normal in size, contour, and attenuation. There is no intrahepatic biliary ductal dilatation. Gallbladder: Surgically absent noting clips in the gallbladder fossa. Spleen: Normal in size and attenuation. 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 Pancreas: There is evidence of choledocholithiasis. An 8 mm gallstone is seen within the common bile duct at the head of the pancreas on image #157. The unenhanced pancreas is mildly atrophic and grossly unremarkable. Adrenal glands: Unremarkable. Kidneys: The unenhanced kidneys are atrophic. There is moderate left hydroureteronephrosis. The left ureter is dilated to the level of the bladder with no obstructing stone or lesion identified. There is mild right hydroureteronephrosis. There are tiny nonobstructing renal calculi and/or renovascular calcifications. The kidneys or infiltrate by numerous simple and complex cysts. This is similar to previous. Abdominal vasculature: There is advanced atherosclerotic calcification of the abdominal aorta. An aortobiiliac stent graft is in place. 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 A sigmoid stump is noted in the pelvis. There is a small parastomal hernia. The small bowel at/above the ostomy is distended and fecalized measuring up to 4.3 cm. The upstream small bowel appear distended and fluid-filled and the appearance is typical for obstruction. Peritoneum: There is trace free fluid in the right upper quadrant and the left lower quadrant.. No intraperitoneal free air is identified. Lymphadenopathy: None. Pelvic viscera: The prostate gland is enlarged and heterogeneous noting median lobe hypertrophy. The bladder wall is thickened and trabeculated indicating chronic outlet obstruction. Tiny bladder diverticula are noted. There are bilate ral fat-containing groin hernias. Skeletal structures: The skeletal structures are heterogeneously osteopenic. There is a chronic compression deformity of L2. Advanced lumbosacral spondylosis is observed. Findings of chronic discitis/osteomyelitis are again seen at L4-L5. There is significant central canal stenosis at this level. No lytic or blastic lesions are seen. There are healed bilateral rib fractures. IMPRESSION: 1. 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 2. The small bowel at/above the ostomy is distended and fecalized with evidence of small bowel obstruction. The site of obstruction is likely at the ostomy itself, and this could related to stricture or fecal impaction. Clinical correlation will be required. 3. No focally thick walled bowel loops are identified. No intraperitoneal free air is seen. Trace free fluid is noted in the abdomen and pelvis. 4. There is choledocholithiasis with an 8 mm gallstone within the distal common bile duct at the head of the pancreas. This is similar to prior studies. 5. Findings of chronic discitis/osteomyelitis at L4-L5 is similar to previous. 6. There is moderate left and mild right hydroureteronephrosis. Both ureters are dilated to the level of the bladder and this is likely related to bladder outlet obstruction. 7. Marked cardiomegaly. 8. The appearance of the kidneys suggests autosomal dominant polycystic kidney disease. 9. Additional findings as above. ACT 112: Negative or not required by law. Electronically signed by: Walker Ellis M.D. 02/07/2022 10:26 AM Chest X-Ray 02/07/22 09:04 SINGLE VIEW CHEST CLINICAL HISTORY: Generalized abdominal pain. FINDINGS: An AP, portable, upright chest radiograph is compared to study dated 12/04/2021 and correlated with chest CT dated 05/31/2021. The patient is status post midline sternotomy and cardiac valve surgery. The heart is enlarged noting atherosclerotic calcification of the thoracic aorta. Chronic interstitial thickening is similar to previous. There is bibasilar scarring/atelectasis. No airspace consolidation typical for pneumonia or large pleural effusion is identified. No pneumothorax is seen. The skeletal structures are osteopenic. The bony thorax is grossly intact. IMPRESSION: Cardiomegaly with no acute cardiopulmonary abnormality. ACT 112: Negative or not required by law. Electronically signed by: Walker Ellis M.D. 02/07/2022 11:44 AM Discharge Plan Visit Data Chief Complaint: Vomiting ED Provider: Walker Yoon Discharge Problem: SBO (small bowel obstruction), Vomiting, Leukocytosis, Acute hyperkalemia Patient Disposition: Admitted As Inpatient Condition: Fair Discharge Instructions Interventions: ED Discharge Assessment Last Done: 02/07/22 15:19
--- NOTE | 2022-02-07 10:28 | CT Scan Report ---
CT SCAN OF THE ABDOMEN AND PELVIS WITHOUT IV CONTRAST CLINICAL HISTORY: Generalized abdominal pain. Nausea and vomiting. Diarrhea. COMPARISON STUDY: Abdominal CT dated 12/01/2021. MRI of the lumbar spine dated 12/01/2021. TECHNIQUE: CT scan of the abdomen and pelvis is performed from the lung bases to the proximal femora. Images are reviewed in the axial, sagittal, and coronal planes. IV contrast was not administered for this examination. Note that the examination was performed in suboptimal fashion without oral and IV contrast. A dose lowering technique was utilized adhering to the principles of ALARA. CT DOSE: 835.21 mGy.cm FINDINGS: Lung bases: The heart is markedly enlarged and without pericardial effusion. The patient is status po st midline sternotomy and mitral valve surgery. The coronary arteries are densely calcified. The dist al esophagus appears mildly thick-walled and fluid-filled. Dependent atelectasis/fibrosis is again se en at the right lung base. Milder scarring/atelectasis is seen in the left lung base. There is no air space consolidation typical for pneumonia or pleural effusion. Scattered calcified granulomas are obs erved. Liver: The unenhanced liver is normal in size, contour, and attenuation. There is no intrahepatic natalya iary ductal dilatation. Gallbladder: Surgically absent noting clips in the gallbladder fossa. Spleen: Normal in size and attenuation. 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 Pancreas: There is evidence of choledocholithiasis. An 8 mm gallstone is seen within the common bile duct at the head of the pancreas on image #157. The unenhanced pancreas is mildly atrophic and grossl y unremarkable. Adrenal glands: Unremarkable. Kidneys: The unenhanced kidneys are atrophic. There is moderate left hydroureteronephrosis. The left ureter is dilated to the level of the bladder with no obstructing stone or lesion identified. There i s mild right hydroureteronephrosis. There are tiny nonobstructing renal calculi and/or renovascular c alcifications. The kidneys or infiltrate by numerous simple and complex cysts. This is similar to pre vious. Abdominal vasculature: There is advanced atherosclerotic calcification of the abdominal aorta. An aor tobiiliac stent graft is in place. 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 A s igmoid stump is noted in the pelvis. There is a small parastomal hernia. The small bowel at/above the ostomy is distended and fecalized measuring up to 4.3 cm. The upstream small bowel appear distended and fluid-filled and the appearance is typical for obstruction. Peritoneum: There is trace free fluid in the right upper quadrant and the left lower quadrant.. No in traperitoneal free air is identified. Lymphadenopathy: None. Pelvic viscera: The prostate gland is enlarged and heterogeneous noting median lobe hypertrophy. The bladder wall is thickened and trabeculated indicating chronic outlet obstruction. Tiny bladder divert icula are noted. There are bilateral fat-containing groin hernias. Skeletal structures: The skeletal structures are heterogeneously osteopenic. There is a chronic compr ession deformity of L2. Advanced lumbosacral spondylosis is observed. Findings of chronic discitis/os teomyelitis are again seen at L4-L5. There is significant central canal stenosis at this level. No ly tic or blastic lesions are seen. There are healed bilateral rib fractures. IMPRESSION: 1. 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 2. The small bowel at/above the ostomy is distended and fecalized with evidence of small bowel obstru ction. The site of obstruction is likely at the ostomy itself, and this could related to stricture or fecal impaction. Clinical correlation will be required. 3. No focally thick walled bowel loops are identified. No intraperitoneal free air is seen. Trace josh e fluid is noted in the abdomen and pelvis. 4. There is choledocholithiasis with an 8 mm gallstone within the distal common bile duct at the head of the pancreas. This is similar to prior studies. 5. Findings of chronic discitis/osteomyelitis at L4-L5 is similar to previous. 6. There is moderate left and mild right hydroureteronephrosis. Both ureters are dilated to the level of the bladder and this is likely related to bladder outlet obstruction. 7. Marked cardiomegaly. 8. The appearance of the kidneys suggests autosomal dominant polycystic kidney disease. 9. Additional findings as above. ACT 112: Negative or not required by law. Electronically signed by: Walker Ellis M.D. 02/07/2022 10:26 AM
[2022-02-07 11:34] LABS: Prothrombin Time 10.9 Seconds (9.0-12.0)
--- NOTE | 2022-02-07 11:45 | XRay Report ---
SINGLE VIEW CHEST CLINICAL HISTORY: Generalized abdominal pain. FINDINGS: An AP, portable, upright chest radiograph is compared to study dated 12/04/2021 and correlate d with chest CT dated 05/31/2021. The patient is status post midline sternotomy and cardiac valve surge ry. The heart is enlarged noting atherosclerotic calcification of the thoracic aorta. Chronic interst itial thickening is similar to previous. There is bibasilar scarring/atelectasis. No airspace consoli dation typical for pneumonia or large pleural effusion is identified. No pneumothorax is seen. The sk eletal structures are osteopenic. The bony thorax is grossly intact. IMPRESSION: Cardiomegaly with no acute cardiopulmonary abnormality. ACT 112: Negative or not required by law. Electronically signed by: Walker Ellis M.D. 02/07/2022 11:44 AM
[2022-02-07 11:46] LABS: Albumin Globulin Ratio 1.2 (0.9-2); Albumin Level 3.3 gm/dl (3.4-5.0); BUN Creatinine Ratio 8.1 (10-20); Bilirubin,Total 0.7 mg/dl (0.2-1.0); Calcium 8.6 mg/dl (8.5-10.1); Creatinine Clr Calc Pharmacy 9.5 ml/min; Est GFR (African American) 6.2 ml/min; Est GFR (Non-African American) 5.4 ml/min; Globulin 2.7 gm/dl (2.5-4.0); Magnesium 1.6 mg/dl (1.7-2.4); Phosphorus 7.3 mg/dl (2.5-4.9)
--- NOTE | 2022-02-07 12:06 | History & Physical Report ---
Date of Service February 07, 2022 Assessment & Plan (1) Small bowel obstruction: Plan: -As evidenced on CT A/P, at/above site of ostomy. -WBC 15.20, lactate 1.5, nontoxic, VS stable, wnl. -NG tube placed in ED, CXR confirmed placement. -N.p.o. for now. -Antiemetics, pain medictions ordered prn. (2) ESRD (end stage renal disease) on dialysis: Plan: -K 6.0, phos 7.3, Mg 1.6. -Managed by [facility] nephrology, consulted placed to Dr Pena. -Dialysis Thursday/Thursday/Thursday. -We will receive dialysis inpatient today. (3) Chronic right-sided CHF (congestive heart failure): Plan: -Appears compensated at this time. -Dialysis today. (4) COPD (chronic obstructive pulmonary disease): Plan: -Stable, no exacerbation. -On 2L NC at all times. -Continue inhalers. (5) CAD (coronary artery disease): Plan: -History of CABG x2. -No evidence of ischemia, chest pain, palpitations today. -Continue ASA/Plavix, statin. Nitro as needed. (6) Atrial fibrillation: Plan: -s/p ablation, NSR today. -Continue amiodarone 200 mg every other day. (7) Peripheral vascular disease: Plan: -ASA/Plavix as above. -Seen by wound care as outpatient, right leg wrapped in dry dressing, b/l feet in boots. (8) Ileostomy in place: Plan: -Intact, previously without output in setting of SBO, minimal improvement of this in ED. (9) Hypothyroidism: Plan: -Continue levothyroxine 88 mcg daily. (10) Anemia, chronic renal failure: Plan: -H&H stable, acceptable. (11) Insomnia: Plan: -Takes temazepam 30 mg as needed at night. -Will continue this here. (12) Radicular leg pain: Plan: -Continue Lyrica 75 mg daily. Plan: -Admit to med/surg on telemetry. -SCDs, Heparin for DVT ppx. -Full Code. 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 Patient states he had developed diffuse abdominal pain on Thursday and has been vomiting 2-3x/day shortly after meals. His abdominal pain is crampy/bloating sensation and emesis is non-bloody. He has begun to develop some abdominal distention over the past day which is adding to his discomfort. He resides at [facility], staff manages his ostomy bag and he reports it had less output over the past several days, without obvious blood or dark stool in ostomy. He is otherwise without fever/chills, weakness, myalgias, chest pain/tightness, palpitations, SOB, cough, hematemesis, melena, hematochezia. He rate shic current abdominal pain 7.5/10. In ED, VSS and wnl. CT A/P showed that the small bowel at/above the ostomy is distended and fecalized with evidence of small bowel obstruction, no focally thick walled bowel loops are identified. No intraperitoneal free air is seen. Labs significant for K+ 6.0, phosphorus 7.3, mag 1.6. CXR with cardiomegaly, no evidence of acute cardiopulmonary disease. Allergies Allergy/AdvReac Type Severity Reaction Status Date / Time oxycodone AdvReac Severe DELIRIUM Verified 02/07/22 09:44 tramadol AdvReac Severe dizziness;a Verified 02/07/22 09:44 nxiety;sob gabapentin AdvReac Intermediate Nausea Verified 02/07/22 09:44 Home Medications Medication Instructions Recorded Confirmed Type calcium acetate(phosphat bind) 667 667 mg PO TIDM 08/23/18 02/07/22 History mg capsule docusate sodium 100 mg capsule 100 mg PO BID 05/31/19 02/07/22 History aspirin 81 mg tablet,delayed 81 mg PO QDL 05/01/20 02/07/22 History release (Aspirin Low Dose) atorvastatin 40 mg tablet 40 mg PO HS #90 tab 11/13/20 02/07/22 Rx lidocaine 4 % topical patch 1 patch TOPICAL DAILY 04/08/21 02/07/22 History (Aspercreme (lidocaine)) nitroglycerin 0.4 mg sublingual 0.4 mg SUBLINGUAL DIRECTED PRN 04/08/21 02/07/22 History tablet (Nitrostat) ropinirole 0.25 mg tablet 0.25 mg PO HS 04/08/21 02/07/22 History acetaminophen 325 mg capsule 650 mg PO QID PRN #30 cap 04/13/21 02/07/22 Rx clopidogrel 75 mg tablet 75 mg PO QDL 05/31/21 02/07/22 History pantoprazole 40 mg tablet,delayed 40 mg PO QAM #90 tab 07/11/21 02/07/22 Rx release pregabalin 75 mg capsule (Lyrica) 75 mg PO QAM #30 cap 10/15/21 02/07/22 Rx amiodarone 200 mg tablet 200 mg PO Q OTHER DAY 02/07/22 02/07/22 History calcium carb-Ca gluc 500 mg 1 tab PO QAM 02/07/22 02/07/22 History calcium-magnesium ox-Mg gluc 250 mg tablet (Calcium Magnesium) cinacalcet 30 mg tablet (Sensipar) 30 mg PO QAM 02/07/22 02/07/22 History dexamethasone 1 mg tablet 3 mg PO QAM 02/07/22 02/07/22 History fluticasone furoate 200 1 inh INHALATION DAILY@1200 02/07/22 02/07/22 History mcg-vilanterol 25 mcg/dose inhalation powder (Breo Ellipta) hydrocodone 10 mg-acetaminophen 1 tab PO 3XWK 02/07/22 02/07/22 History 325 mg tablet ipratropium 20 mcg-albuterol 100 1 puff INHALATION Q6H PRN 02/07/22 02/07/22 History mcg/actuation mist for inhalation (Combivent Respimat) levothyroxine 88 mcg tablet 88 mcg PO HS 02/07/22 02/07/22 History menthol 4 % topical gel (Biofreeze 1 applic TOPICAL 6XD 02/07/22 02/07/22 History (menthol)) temazepam 15 mg capsule 30 mg PO HS PRN 02/07/22 02/07/22 History tiotropium bromide 18 mcg capsule 1 cap INHALATION QDL 04/15/22 04/15/22 History with inhalation device (Spiriva with HandiHaler) vitamin B complex and vitamin C 1 cap PO QDL 02/07/22 02/07/22 History no.20-folic acid 1 mg capsule Past Med/Surg History Medical History AAA (abdominal aortic aneurysm) Acute pseudo-obstruction of bowel Anemia of chronic disease Anemia, chronic renal failure Anxiety AV fistula right arm CAD (coronary artery disease) Chronic back pain Chronic GERD Chronic right-sided CHF (congestive heart failure) Chronic ulcer of great toe of left foot with fat layer exposed COPD (chronic obstructive pulmonary disease) COPD (chronic obstructive pulmonary disease) CVA (cerebral vascular accident) "NO RESIDUAL EFFECTS" PER RECORDS Dependence on renal dialysis Depression Dermatitis Diastolic CHF DVT (deep venous thrombosis) Elevated troponin Encounter for central line placement Exertional dyspnea Fecal impaction GERD (gastroesophageal reflux disease) H/O: gout Hyperkalemia Hyperlipidemia Hypothyroidism Hypothyroidism Ileostomy in place Insomnia 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 (Dr Sj Restrepo) Memory loss or impairment Myocardial infarct, old 2010 Necrosis of colon Orthostatic hypotension Oxygen dependent Peripheral vascular disease Poor venous access Skin ulcers of both feet Small bowel obstruction Valvular disease S/P MVR (2010); ?AVR PER RECORDS Vitamin D deficiency Surgical History Difficult intubation B/L Anteriogram, Right femoral to anterior tibial cadaver vein bypass= 08/06/18= Grade view 4, MAC 3 --> Glidescope #3, ETT 7.5 at [facility] H/O abdominal aortic aneurysm repair 2011 H/O [id number] bypass 2012 H/O colectomy H/O mitral valve repair 2011; ?AVR PER RECORDS Hx of CABG S/P CABG X2 (DURING MVR) 2010 S/P AAA repair S/P ablation of atrial fibrillation S/P cholecystectomy S/P femoral-popliteal bypass surgery S/P MVR (mitral valve repair) S/P split thickness skin graft Status post transmetatarsal amputation of right foot Family History Mother Essential hypertension Father , age 76 Myocardial infarction Denies family history of Colon cancer Ovarian cancer Prostate cancer Breast cancer Social History Smoking Status: Former smoker Tobacco Type: Cigarettes Years Smoked: 5; Second Hand Exposure: No; Hx Alcohol Use: No Hx Substance Use: No Preferred Language: Andorran Communication Ability: Effective Visual Impairment: No Limitations Hearing Ability: Normal Certified Surgical First Assistant Required: No Beliefs That Will Affect Care: None marital status: / marital status details: 1 daughter Current Living Situation: Family Current Living Situation Comment: Lives with sister 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 Feels Safe at Home: Yes Childhood Exposure to Second-Hand Smoke: No Dental Care, Regularly: Yes Physical Activity Frequency: Other Physical Activity Frequency Comment: Physical activity limited by patients medical conditions Seatbelt Use: always Sunscreen Use: Yes Assistive Devices: Wheelchair Review of Systems Review of Systems: Constitutional: No fever/chills, weakness, fatigue, myalgias, anorexia, night sweats Eyes: No diplopia, no worsening or blurred vision ENT: normal hearing, no trouble swallowing Respiratory: No cough, sputum, dyspnea at rest or on exertion Cardiovascular: No chest pain, tightness or palpitations Abdomen: abdominal pain and bloating with abdominal distension n+ n/v x5 days, reduced stool output to ostomy; no hematemesis, melena, hematochezia : Denies dysuria, hematuria, increased urgency/frequency, urinary retention Musculoskeletal: No joint pain, calf pain, swelling Neurologic: No weakness, numbness/tingling, or balance problems Psychiatric: No anxiety or depression Skin: No rash or itch Physical Exam Physical Exam: General: awake, alert, no apparent distress, on 2L NC Head: Normocephalic, atraumatic ENT: PERRL, EOMI, no pharyngeal exudate, mucous membranes moist Chest: Clear to auscultation, no adventitious breath sounds Cardiac: Regular rate and rhythm, no murmur, no JVD, normal peripheral pulses, good capillary refill Abdominal: NABS x 4 quadrants, distended abdomen, diffusely tender to palpation, without rebound/guarding; R sided colostomy in place with minimal somewhat formed stool present, no blood seen Extremities: b/l LE's with skin changes consistent with PVD, right leg wrapped in dry bandage, 1+ b/l pedal edema, calfs nontender to palpation; normal inspection of upper extremities b/l, no peripheral edema or erythema Psych: Normal mood and affect Neuro: AAO x 3, strength intact bilaterally and rated 5/5, no motor deficits, speech is clear, no peripheral sensory deficits Skin: no rash or erythema Results & Data Results & Data ([facility]) Vital Signs (Past 12 Hours) Vital Signs Temp Pulse Pulse Resp BP BP Pulse Ox 02/07/22 09:11 78 20 95 02/07/22 08:59 36.8 C 78 78 20 140/77 140/77 95 Laboratory Results Abnormal lab results 02/07/22 Range/Units 11:10 Sodium 133 L (136-145) mmol/L Potassium 6.0 H (3.5-5.1) mmol/L Chloride 89 L (98-107) mmol/L Anion Gap 15 H (3-11) BUN 70 H (6-23) mg/dl Creatinine 8.65 H* (0.6-1.4) mg/dl BUN/Creatinine Ratio 8.1 L (10-20) Phosphorus 7.3 H (2.5-4.9) mg/dl Magnesium 1.6 L (1.7-2.4) mg/dl Albumin 3.3 L (3.4-5.0) gm/dl Diagnostic Findings Abdomen/Pelvis CT 02/07/22 09:03 CT SCAN OF THE ABDOMEN AND PELVIS WITHOUT IV CONTRAST CLINICAL HISTORY: Generalized abdominal pain. Nausea and vomiting. Diarrhea. COMPARISON STUDY: Abdominal CT dated 12/01/2021. MRI of the lumbar spine dated 12/01/2021. TECHNIQUE: CT scan of the abdomen and pelvis is performed from the lung bases to the proximal femora. Images are reviewed in the axial, sagittal, and coronal planes. IV contrast was not administered for this examination. Note that the examination was performed in suboptimal fashion without oral and IV contrast. A dose lowering technique was utilized adhering to the principles of ALARA. CT DOSE: 835.21 mGy.cm FINDINGS: Lung bases: The heart is markedly enlarged and without pericardial effusion. The patient is status post midline sternotomy and mitral valve surgery. The coronary arteries are densely calcified. The distal esophagus appears mildly thick-walled and fluid-filled. Dependent atelectasis/fibrosis is again seen at the right lung base. Milder scarring/atelectasis is seen in the left lung base. There is no airspace consolidation typical for pneumonia or pleural effusion. Scattered calcified granulomas are observed. Liver: The unenhanced liver is normal in size, contour, and attenuation. There is no intrahepatic biliary ductal dilatation. Gallbladder: Surgically absent noting clips in the gallbladder fossa. Spleen: Normal in size and attenuation. 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 Pancreas: There is evidence of choledocholithiasis. An 8 mm gallstone is seen within the common bile duct at the head of the pancreas on image #157. The unenhanced pancreas is mildly atrophic and grossly unremarkable. Adrenal glands: Unremarkable. Kidneys: The unenhanced kidneys are atrophic. There is moderate left hydroureteronephrosis. The left ureter is dilated to the level of the bladder with no obstructing stone or lesion identified. There is mild right hydroureteronephrosis. There are tiny nonobstructing renal calculi and/or renovascular calcifications. The kidneys or infiltrate by numerous simple and complex cysts. This is similar to previous. Abdominal vasculature: There is advanced atherosclerotic calcification of the abdominal aorta. An aortobiiliac stent graft is in place. 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 A sigmoid stump is noted in the pelvis. There is a small parastomal hernia. The small bowel at/above the ostomy is distended and fecalized measuring up to 4.3 cm. The upstream small bowel appear distended and fluid-filled and the appearance is typical for obstruction. Peritoneum: There is trace free fluid in the right upper quadrant and the left lower quadrant.. No intraperitoneal free air is identified. Lymphadenopathy: None. Pelvic viscera: The prostate gland is enlarged and heterogeneous noting median lobe hypertrophy. The bladder wall is thickened and trabeculated indicating chronic outlet obstruction. Tiny bladder diverticula are noted. There are bilateral fat-containing groin hernias. Skeletal structures: The skeletal structures are heterogeneously osteopenic. There is a chronic compression deformity of L2. Advanced lumbosacral spondylosis is observed. Findings of chronic discitis/osteomyelitis are again seen at L4-L5. There is significant central canal stenosis at this level. No lytic or blastic lesions are seen. There are healed bilateral rib fractures. IMPRESSION: 1. 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 2. The small bowel at/above the ostomy is distended and fecalized with evidence of small bowel obstruction. The site of obstruction is likely at the ostomy itself, and this could related to stricture or fecal impaction. Clinical correlation will be required. 3. No focally thick walled bowel loops are identified. No intraperitoneal free air is seen. Trace free fluid is noted in the abdomen and pelvis. 4. There is choledocholithiasis with an 8 mm gallstone within the distal common bile duct at the head of the pancreas. This is similar to prior studies. 5. Findings of chronic discitis/osteomyelitis at L4-L5 is similar to previous. 6. There is moderate left and mild right hydroureteronephrosis. Both ureters are dilated to the level of the bladder and this is likely related to bladder outlet obstruction. 7. Marked cardiomegaly. 8. The appearance of the kidneys suggests autosomal dominant polycystic kidney disease. 9. Additional findings as above. ACT 112: Negative or not required by law. Electronically signed by: Walker Ellis M.D. 02/07/2022 10:26 AM Chest X-Ray 02/07/22 09:04 SINGLE VIEW CHEST CLINICAL HISTORY: Generalized abdominal pain. FINDINGS: An AP, portable, upright chest radiograph is compared to study dated 12/04/2021 and correlated with chest CT dated 05/31/2021. The patient is status post midline sternotomy and cardiac valve surgery. The heart is enlarged noting atherosclerotic calcification of the thoracic aorta. Chronic interstitial thickening is similar to previous. There is bibasilar scarring/atelectasis. No airspace consolidation typical for pneumonia or large pleural effusion is identified. No pneumothorax is seen. The skeletal structures are osteopenic. The bony thorax is grossly intact. IMPRESSION: Cardiomegaly with no acute cardiopulmonary abnormality. ACT 112: Negative or not required by law. Electronically signed by: Walker Ellis M.D. 02/07/2022 11:44 AM ECG Additional Comments: Sinus rhythm with sinus arrhythmia with 1st degree A-V block Nonspecific ST abnormality Abnormal ECG When compared with ECG of 02-DEC-2021 05:59, Sinus rhythm has replaced Atrial fibrillation Non-specific change in ST segment in Inferior leads ST now depressed in Anterior leads QT has shortened Per my interpretation, NSR, subtle ST depressions in anterior leads which has previously been noted on EKGS; no ST segment elevation, no T wave inversions Code Status & VTE Plan Code Status Full Code. Supervising Physician Co-Signing Physician Notes Patient seen and examined, chart reviewed, case discussed with Lynne Vizcaino PA-C and I agree with the assessment and plan except as otherwise noted. 76-year-old male with history of bowel obstruction who presents with a bowel obstruction at his ostomy site. Patient is a ESRD patient on dialysis who is due to dialysis today but was unable to receive this due to his bowel obstruction. SBO on CT is clinically slightly improving with return of output while in the ER. We will continue with NG placement, n.p.o., follow clinically. Patient without overt pulmonary edema or worsening respiratory status, but is hyperkalemic. [facility] nephrology consulted, discussed via [place] and dialysis being set up as inpatient for today. HF without acute exacerbation on admission, COPD is without exacerbation on admission. Patient is breathing comfortably without wheezing, is not in any acute distress, and is mildly tender to palpation but without rigidity/guarding or rebound tenderness. Agree with management as above. PG Care Time/CCT Total # of Minutes Spent Total Time Spent with Patient: Total time spent is greater than 50% in coordination of care (as documented) at patient's floor/unit and/or counseling patient: Coding Level of Care Code 13121 Initial Inpt Care Lvl 3 Diagnoses Small bowel obstruction K56.609 ESRD (end stage renal disease) on dialysis N18.6; Z99.2 Chronic right-sided CHF (congestive heart failure) I50.812 COPD (chronic obstructive pulmonary disease) J44.9 CAD (coronary artery disease) I25.10 Associated angina: without angina Coronary Disease-Associated Artery/Lesion type: [place] artery [place] vs. transplanted heart: [place] heart Atrial fibrillation I48.91 Peripheral vascular disease I73.[address] Z93.2 Hypothyroidism E03.9 Anemia, chronic renal failure N18.9; D63.1 Chronic kidney disease stage: unspecified stage Insomnia G47.00 Radicular leg pain M54.10 (1) Anemia, chronic renal failure Chronic kidney disease stage: unspecified stage Qualified Code(s): N18.9 - Chronic kidney disease, unspecified; D63.1 - Anemia in chronic kidney disease (2) CAD (coronary artery disease) Associated angina: without angina Coronary Disease-Associated Artery/Lesion type: [place] artery [place] vs. transplanted heart: [place] heart Qualified Code(s): I25.10 - Atherosclerotic heart disease of [place] coronary artery without angina pectoris
[2022-02-07 13:25] LABS: Basophils # (auto) 0.03 K/uL (0-0.2); Basophils % (auto) 0.2 %; Eosinophils # (auto) 0.05 K/uL (0-0.5); Eosinophils % (auto) 0.3 %; Hematocrit (blood only) 30.8 % (42-52); Hemoglobin 10.4 g/dL (14.0-18.0); Immature Granulocytes # (auto) 0.54 K/uL (0.00-0.02); Immature Granulocytes % (auto) 3.6 %; Lymphocytes # (auto) 1.31 K/uL (1.2-3.4); Lymphocytes % (auto) 8.6 %; Mean Corpuscular Hgb Conc 33.8 g/dL (32-36); Mean Corpuscular Volume 100.7 fL (80-100); Mean Platelet Volume 9.6 fL (7.4-10.4); Monocytes # (auto) 1.13 K/uL (0.11-0.59); Monocytes % (auto) 7.4 %; Neutrophils # (auto) 12.14 K/uL (1.4-6.5); Neutrophils % (auto) 79.9 %; Platelet Count 140 K/uL (130-400); RDW Coefficient of Variation 15.6 % (11.5-14.5); RDW Standard Deviation 57.2 fL (36.4-46.3); Red Blood Count 3.06 M/uL (4.7-6.1)
--- NOTE | 2022-02-07 13:36 | XRay Report ---
XR chest 1V portable CLINICAL HISTORY: confirm NG tube placement TECHNIQUE: Single frontal radiograph of the chest was obtained. Comparison: Comparison is made to chest one view 02/07/2022 FINDINGS: Median sternotomy wires are unchanged. An enteric tube side-port lies below the diaphragm. Cardiomega ly is noted. The lungs are clear. No evidence of pleural effusion or pneumothorax. IMPRESSION: 1. Satisfactory appearance of enteric tube. 2. Cardiomegaly is again seen. ACT 112: Negative or not required by law. Electronically signed by: Deepak Horan M.D. 02/07/2022 1:35 PM
[2022-02-07] MEDS ORDERED: POLYETHYLENE (MIRALAX) 17 GM PACK PO PRN (16:26)
[2022-02-07] MEDS ORDERED: NITROGLYCERIN SL 0.4 MG/TAB TAB SL PRN (16:26)
[2022-02-07] MEDS ORDERED: IPRATROPIUM BROMIDE/ALBUTEROL respimat INH INH PRN (16:26)
[2022-02-07] MEDS ORDERED: TEMAZEPAM 15 MG CAPSULE PO PRN (16:26)
[2022-02-07] MEDS ORDERED: ACETAMINOPHEN 325 MG TAB PO PRN (16:52)
[2022-02-07] MEDS ORDERED: IPRATROPIUM BROMIDE HFA INHALER INH PRN (16:54)
[2022-02-07] MEDS ORDERED: ALBUTEROL HFA 8 GM INHALER INH PRN (16:54)
[2022-02-07] MEDS: FLUTICASONE/VILANTEROL 200/25MCG 14 PUFFS/INHALER INH SCH (17:47)
[2022-02-07] MEDS: UMECLIDINIUM BROMIDE 62.5MCG/BLISTER 7 PUFFS/INHALER INH SCH (17:47)
[2022-02-07] MEDS ORDERED: PNEUMOCOCCAL POLYSACCHARIDES 25 MCG/0.5 ML VIAL/SYR IM ONE (18:40)
--- NOTE | 2022-02-07 18:49 | Nephrology Consultation ---
Date of Consultation February 07, 2022 Assessment & Plan (1) ESRD (end stage renal disease) on dialysis: . 1. End-stage renal disease:MWF - As per his schedule, today is his dialysis day and we will do for 3.0 hours, with 1.5 - 2 lit Uf, 2k bath. - D/c phosphate binders for now. -Next HD will be on Thursday. (2) SBO (small bowel obstruction): -As evidenced on CT A/P, at/above site of ostomy. -Raised wbc and lactate -NG tube placed in ED -N.p.o. for now. -As per primary . History of Present Illness Reason for Consultation: ESRD patient admitted with abdominal pain. Attending Physician: Mingo Worthington MD History of Present Illness 76-year-old male with end-stage renal disease, on chronic hemodialysis Thursday, Thursday, Thursday through his right upper arm AV fistula. His outpatient licensed sales producer is Dr. Christina Alcantar. 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 Patient states he had developed diffuse abdominal pain on Thursday and has been vomiting 2-3x/day shortly after meals. His abdominal pain is crampy/bloating sensation and emesis is non-bloody CT A/P showed that thesmall bowel at/above the ostomy is distended and fecalized with evidence of small bowel obstruction, with no free air. Labs were significant for K+ 6.0, phosphorus 7.3, mag 1.6. CXR showed cardiomegaly with no evidence of acute cardiopulmonary disease No c/o fever/chills,, SOB, cough. Allergies Allergy/AdvReac Type Severity Reaction Status Date / Time oxycodone AdvReac Severe DELIRIUM Verified 02/07/22 09:44 tramadol AdvReac Severe dizziness;a Verified 02/07/22 09:44 nxiety;sob gabapentin AdvReac Intermediate Nausea Verified 02/07/22 09:44 Home Medications Medication Instructions Recorded Confirmed Type calcium acetate(phosphat bind) 667 667 mg PO TIDM 08/23/18 02/07/22 History mg capsule docusate sodium 100 mg capsule 100 mg PO BID 05/31/19 02/07/22 History aspirin 81 mg tablet,delayed 81 mg PO QDL 05/01/20 02/07/22 History release (Aspirin Low Dose) atorvastatin 40 mg tablet 40 mg PO HS #90 tab 11/13/20 02/07/22 Rx lidocaine 4 % topical patch 1 patch TOPICAL DAILY 04/08/21 02/07/22 History (Aspercreme (lidocaine)) nitroglycerin 0.4 mg sublingual 0.4 mg SUBLINGUAL DIRECTED PRN 04/08/21 02/07/22 History tablet (Nitrostat) ropinirole 0.25 mg tablet 0.25 mg PO HS 04/08/21 02/07/22 History acetaminophen 325 mg capsule 650 mg PO QID PRN #30 cap 04/13/21 02/07/22 Rx clopidogrel 75 mg tablet 75 mg PO QDL 05/31/21 02/07/22 History pantoprazole 40 mg tablet,delayed 40 mg PO QAM #90 tab 07/11/21 02/07/22 Rx release pregabalin 75 mg capsule (Lyrica) 75 mg PO QAM #30 cap 10/15/21 02/07/22 Rx amiodarone 200 mg tablet 200 mg PO Q OTHER DAY 02/07/22 02/07/22 History calcium carb-Ca gluc 500 mg 1 tab PO QAM 02/07/22 02/07/22 History calcium-magnesium ox-Mg gluc 250 mg tablet (Calcium Magnesium) cinacalcet 30 mg tablet (Sensipar) 30 mg PO QAM 02/07/22 02/07/22 History dexamethasone 1 mg tablet 3 mg PO QAM 02/07/22 02/07/22 History fluticasone furoate 200 1 inh INHALATION DAILY@1200 02/07/22 02/07/22 History mcg-vilanterol 25 mcg/dose inhalation powder (Breo Ellipta) hydrocodone 10 mg-acetaminophen 1 tab PO 3XWK 02/07/22 02/07/22 History 325 mg tablet ipratropium 20 mcg-albuterol 100 1 puff INHALATION Q6H PRN 02/07/22 02/07/22 History mcg/actuation mist for inhalation (Combivent Respimat) levothyroxine 88 mcg tablet 88 mcg PO HS 02/07/22 02/07/22 History menthol 4 % topical gel (Biofreeze 1 applic TOPICAL 6XD 02/07/22 02/07/22 His tory (menthol)) temazepam 15 mg capsule 30 mg PO HS PRN 02/07/22 02/07/22 History tiotropium bromide 18 mcg capsule 1 cap INHALATION QDL 02/07/22 02/07/22 History with inhalation device (Spiriva with HandiHaler) vitamin B complex and vitamin C 1 cap PO QDL 02/07/22 02/07/22 History no.20-folic acid 1 mg capsule Patient History Medical History AAA (abdominal aortic aneurysm) Acute pseudo-obstruction of bowel Anemia of chronic disease Anemia, chronic renal failure Anxiety AV fistula right arm CAD (coronary artery disease) Chronic back pain Chronic GERD Chronic right-sided CHF (congestive heart failure) Chronic ulcer of great toe of left foot with fat layer exposed COPD (chronic obstructive pulmonary disease) COPD (chronic obstructive pulmonary disease) CVA (cerebral vascular accident) "NO RESIDUAL EFFECTS" PER RECORDS Dependence on renal dialysis Depression Dermatitis Diastolic CHF DVT (deep venous thrombosis) Elevated troponin Encounter for central line placement Exertional dyspnea Fecal impaction GERD (gastroesophageal reflux disease) H/O: gout Hyperkalemia Hyperlipidemia Hypothyroidism Hypothyroidism Ileostomy in place Insomnia 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 (Dr Sj Restrepo) Memory loss or impairment Myocardial infarct, old 2010 Necrosis of colon Orthostatic hypotension Oxygen dependent Peripheral vascular disease Poor venous access Skin ulcers of both feet Small bowel obstruction Valvular disease S/P MVR (2010); ?AVR PER RECORDS Vitamin D deficiency Surgical History Difficult intubation B/L Anteriogram, Right femoral to anterior tibial cadaver vein bypass= 08/06/18= Grade view 4, MAC 3 --> Glidescope #3, ETT 7.5 at [facility] H/O abdominal aortic aneurysm repair 2011 H/O [id number] bypass 2012 H/O colectomy H/O mitral valve repair 2010; ?AVR PER RECORDS Hx of CABG S/P CABG X2 (DURING MVR) 2010 S/P AAA repair S/P ablation of atrial fibrillation S/P cholecystectomy S/P femoral-popliteal bypass surgery S/P MVR (mitral valve repair) S/P split thickness skin graft Status post transmetatarsal amputation of right foot Family History Mother Essential hypertension Father , age 76 Myocardial infarction Denies family history of Colon cancer Ovarian cancer Prostate cancer Breast cancer Social History Smoking Status: Former smoker Tobacco Type: Cigarettes Years Smoked: 5; Second Hand Exposure: No; Hx Alcohol Use: No Hx Substance Use: No Preferred Language: Bruneian Communication Ability: Effective Visual Impairment: No Limitations Hearing Ability: Normal Food Service Clerk Required: No Beliefs That Will Affect Care: None marital status: / marital status details: 1 daughter Current Living Situation: Family Current Living Situation Comment: Lives with sister 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 He is awake, alert, oriented x3, but somnolent HEENT: Mucous membrane is moist. NECK: Supple. No jugular venous distention. CHEST: Bilateral decreased breath sound. Poor inspiratory effort limiting quality of the exam, bilateral occasional rhonchi. CARDIOVASCULAR: S1 and S2 regular. Soft systolic murmur heard. ABDOMEN: Soft, nontender. EXTREMITIES: Show no edema, wrinkled skin secondary to lack of edema now, multiple skin sores. NEUROLOGIC: Normal speech. Moving all 4 extremities Results & Data ([facility]) Vital Signs (Past 12 Hours) Vital Signs Temp Pulse Pulse Resp BP BP Pulse Ox 02/07/22 17:57 80 02/07/22 16:30 36.8 C 80 107/72 02/07/22 16:26 36.7 C 64 18 116/65 95 02/07/22 16:00 57 L 104/51 L 02/07/22 15:30 67 107/44 L 02/07/22 15:00 82 88/60 L 02/07/22 14:30 57 L 109/63 02/07/22 14:00 73 98/60 L 02/07/22 13:30 65 122/69 02/07/22 13:23 36.8 C 65 02/07/22 13:00 70 13 139/68 02/07/22 12:30 78 18 134/75 02/07/22 12:00 71 12 124/69 98 02/07/22 11:30 72 13 126/76 02/07/22 11:11 71 16 140/73 02/07/22 11:00 72 14 02/07/22 10:30 70 15 02/07/22 10:10 73 11 L 127/64 02/07/22 10:09 19 02/07/22 09:56 75 15 137/77 02/07/22 09:30 75 19 02/07/22 09:11 78 20 95 02/07/22 09:00 77 24 02/07/22 08:59 36.8 C 78 78 20 140/77 140/77 95 02/07/22 08:50 76 21 Laboratory Results 02/07/22 11:10 02/07/22 11:10
[2022-02-07] MEDS ORDERED: HYDROmorphone INJ 0.5 MG/0.5 ML SYR IV PRN (19:31)
[2022-02-07] MEDS ORDERED: ACETAMINOPHEN 1000 MG/100 ML IV IV PRN (19:31)
[2022-02-07] MEDS ORDERED: HYDROcodone/ACETAMINOPHEN 10/325 TAB PO SCH (21:00)
[2022-02-07] MEDS: HEPARIN SOD 5,000 UNIT/0.5 ML VIAL SQ SCH (21:10)
[2022-02-08] MEDS: HYDROmorphone INJ 0.5 MG/0.5 ML SYR IV PRN ×3 (01:15→22:45)
--- NOTE | 2022-02-08 06:38 | Electrocardiogram Report ---
Test Reason : Blood Pressure : / mmHG Vent. Rate : 081 BPM Atrial Rate : 081 BPM P-R Int : 236 ms QRS Dur : 106 ms QT Int : 388 ms P-R-T Axes : 053 071 034 degrees QTc Int : 450 ms Sinus rhythm with sinus arrhythmia with 1st degree A-V block Nonspecific ST abnormality Abnormal ECG When compared with ECG of 02-DEC-2021 05:59, Sinus rhythm has replaced Atrial fibrillation Non-specific change in ST segment in Inferior leads ST now depressed in Anterior leads QT has shortened Confirmed by Grupo Moreno ([id number]) on 02/08/2022 6:38:26 AM Referred By: [facility] Confirmed By:Grupo Moreno
[2022-02-08 07:04] LABS: Basophils # (auto) 0.06 K/uL (0-0.2); Basophils % (auto) 0.5 %; Eosinophils % (auto) 0.8 %; Hematocrit (blood only) 32.8 % (42-52); Hemoglobin 10.8 g/dL (14.0-18.0); Immature Granulocytes # (auto) 0.36 K/uL (0.00-0.02); Immature Granulocytes % (auto) 2.8 %; Lymphocytes % (auto) 6.3 %; Mean Corpuscular Hgb Conc 32.9 g/dL (32-36); Mean Corpuscular Volume 103.1 fL (80-100); Mean Platelet Volume 9.4 fL (7.4-10.4); Monocytes # (auto) 1.99 K/uL (0.11-0.59); Monocytes % (auto) 15.7 %; Neutrophils # (auto) 9.37 K/uL (1.4-6.5); Neutrophils % (auto) 73.9 %; Platelet Count 138 K/uL (130-400); RDW Coefficient of Variation 15.6 % (11.5-14.5); RDW Standard Deviation 59.5 fL (36.4-46.3); Red Blood Count 3.18 M/uL (4.7-6.1); White Blood Count 12.68 K/uL (4.8-10.8)
[2022-02-08 07:38] LABS: BUN Creatinine Ratio 8.3 (10-20); Calcium 8.8 mg/dl (8.5-10.1); Creatinine Clr Calc Pharmacy 12.7 ml/min; Est GFR (African American) 8.9 ml/min; Est GFR (Non-African American) 7.7 ml/min; Magnesium 1.8 mg/dl (1.7-2.4); Phosphorus 7.1 mg/dl (2.5-4.9); Potassium 5.1 mmol/L (3.5-5.1)
[2022-02-08] MEDS: CLOPIDOGREL BISULFATE 75 MG TAB PO SCH (08:12)
[2022-02-08] MEDS: ASPIRIN 81 MG ECTAB PO SCH (08:12)
[2022-02-08] MEDS: CINACALCET HCL 30 MG TAB PO SCH (08:12)
[2022-02-08] MEDS: PREGABALIN 75 MG CAP PO SCH (08:13)
[2022-02-08] MEDS: UMECLIDINIUM BROMIDE 62.5MCG/BLISTER 7 PUFFS/INHALER INH SCH (08:51)
[2022-02-08] MEDS: HEPARIN SOD 5,000 UNIT/0.5 ML VIAL SQ SCH (08:52)
[2022-02-08] MEDS ORDERED: dexAMETHasone 10 MG in DEXTROSE 5% 25 ML IV SCH (09:00)
[2022-02-08] MEDS ORDERED: NON-FORMULARY MEDICATION (Ca Carb-Ca Gluc-Mg Ox-Mg Gluco [Calcium Magnesium] 500 mg calciu PO SCH (09:00)
[2022-02-08] MEDS ORDERED: PANTOprazole 40 MG TAB PO SCH (09:00)
[2022-02-08] MEDS ORDERED: dexAMETHasone 1 MG TAB PO SCH (09:00)
[2022-02-08] MEDS: dexAMETHasone 10 MG in SYRINGE 0 ML IV SCH (09:03)
--- NOTE | 2022-02-08 10:55 | Surgery Consultation ---
Date of Consultation February 08, 2022 Assessment & Plan (1) SBO (small bowel obstruction): Patient extremely poor surgical candidate and I doubt would survive an operation. We will try to manage everything conservatively. NG tube is in place. If he can tolerate it some gentle hydration given his dialysis dependence this may or may not be possible. We will recheck his KUB tomorrow. If no improvement will try to digitally manipulate the ileostomy. No acute or urgent or emergent indications for surgery currently. We will continue to follow along closely. (2) Peripheral vascular disease: (3) Atrial fibrillation: (4) CAD (coronary artery disease): (5) Chronic right-sided CHF (congestive heart failure): (6) COPD (chronic obstructive pulmonary disease): (7) ESRD (end stage renal disease) on dialysis: (8) Ileostomy in place: (9) Chronic respiratory failure with hypoxia: (10) S/P CABG x 2: (11) S/P MVR (mitral valve repair): (12) S/P AAA repair: History of Present Illness Attending Physician: Tan Chacon History of Present Illness 76-year-old male who presented to the emergency room with nausea and vomiting and decreased ileostomy output. He does have some cognitive decline is relatively poor historian. Discussed with Dr. Brothers who knows him. Dr. Restrepo performed a subtotal colectomy with ileostomy for ischemic bowel in April 2019. He has medical comorbidities including coronary artery disease with prior CABG, AAA repair, diastolic heart failure, chronic kidney disease, end-stage renal disease on dialysis, atrial fibrillation etc. CT scan reveals a small bowel obstruction with possible site of obstruction near the ileostomy. Allergies Allergy/AdvReac Type Severity Reaction Status Date / Time oxycodone AdvReac Severe DELIRIUM Verified 02/07/22 09:44 tramadol AdvReac Severe dizziness;a Verified 02/07/22 09:44 nxiety;sob gabapentin AdvReac Intermediate Nausea Verified 02/07/22 09:44 Home Medications Medication Instructions Recorded Confirmed Type calcium acetate(phosphat bind) 667 667 mg PO TIDM 08/23/18 02/07/22 History mg capsule docusate sodium 100 mg capsule 100 mg PO BID 05/31/19 02/07/22 History aspirin 81 mg tablet,delayed 81 mg PO QDL 05/01/20 02/07/22 History release (Aspirin Low Dose) atorvastatin 40 mg tablet 40 mg PO HS #90 tab 11/13/20 02/07/22 Rx lidocaine 4 % topical patch 1 patch TOPICAL DAILY 04/08/21 02/07/22 History (Aspercreme (lidocaine)) nitroglycerin 0.4 mg sublingual 0.4 mg SUBLINGUAL DIRECTED PRN 04/08/21 02/07/22 History tablet (Nitrostat) ropinirole 0.25 mg tablet 0.25 mg PO HS 04/08/21 02/07/22 History acetaminophen 325 mg capsule 650 mg PO QID PRN #30 cap 04/13/21 02/07/22 Rx clopidogrel 75 mg tablet 75 mg PO QDL 05/31/21 02/07/22 History pantoprazole 40 mg tablet,delayed 40 mg PO QAM #90 tab 07/11/21 02/07/22 Rx release pregabalin 75 mg capsule (Lyrica) 75 mg PO QAM #30 cap 10/15/21 02/07/22 Rx amiodarone 200 mg tablet 200 mg PO Q OTHER DAY 02/07/22 02/07/22 History calcium carb-Ca gluc 500 mg 1 tab PO QAM 02/07/22 02/07/22 History calcium-magnesium ox-Mg gluc 250 mg tablet (Calcium Magnesium) cinacalcet 30 mg tablet (Sensipar) 30 mg PO QAM 02/07/22 02/07/22 History dexamethasone 1 mg tablet 3 mg PO QAM 02/07/22 02/07/22 History fluticasone furoate 200 1 inh INHALATION DAILY@1200 02/07/22 02/07/22 History mcg-vilanterol 25 mcg/dose inhalation powder (Breo Ellipta) hydrocodone 10 mg-acetaminophen 1 tab PO 3XWK 02/07/22 02/07/22 History 325 mg tablet ipratropium 20 mcg-albuterol 100 1 puff INHALATION Q6H PRN 02/07/22 02/07/22 History mcg/actuation mist for inhalation (Combivent Respimat) levothyroxine 88 mcg tablet 88 mcg PO HS 02/07/22 02/07/22 History menthol 4 % topical gel (Biofreeze 1 applic TOPICAL 6XD 02/07/22 02/07/22 History (menthol)) temazepam 15 mg capsule 30 mg PO HS PRN 02/07/22 02/07/22 History tiotropium bromide 18 mcg capsule 1 cap INHALATION QDL 02/07/22 02/07/22 History with inhalation device (Spiriva with HandiHaler) vitamin B complex and vitamin C 1 cap PO QDL 02/07/22 02/07/22 History no.20-folic acid 1 mg capsule Patient History Medical History AAA (abdominal aortic aneurysm) Acute pseudo-obstruction of bowel Anemia of chronic disease Anemia, chronic renal failure Anxiety AV fistula right arm CAD (coronary artery disease) Chronic back pain Chronic GERD Chronic right-sided CHF (congestive heart failure) Chronic ulcer of great toe of left foot with fat layer exposed COPD (chronic obstructive pulmonary disease) COPD (chronic obstructive pulmonary disease) CVA (cerebral vascular accident) "NO RESIDUAL EFFECTS" PER RECORDS Dependence on renal dialysis Depression Dermatitis Diastolic CHF DVT (deep venous thrombosis) Elevated troponin Encounter for central line placement Exertional dyspnea Fecal impaction GERD (gastroesophageal reflux disease) H/O: gout Hyperkalemia Hyperlipidemia Hypothyroidism Hypothyroidism Ileostomy in place Insomnia 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 (Dr Sj Restrepo) Memory loss or impairment Myocardial infarct, old 2010 Necrosis of colon Orthostatic hypotension Oxygen dependent Peripheral vascular disease Poor venous access Skin ulcers of both feet Small bowel obstruction Valvular disease S/P MVR (2010); ?AVR PER RECORDS Vitamin D deficiency Surgical History Difficult intubation B/L Anteriogram, Right femoral to anterior tibial cadaver vein bypass= 08/06/18= Grade view 4, MAC 3 --> Glidescope #3, ETT 7.5 at [facility] H/O abdominal aortic aneurysm repair 2011 H/O [id number] bypass 2012 H/O colectomy H/O mitral valve repair 2010; ?AVR PER RECORDS Hx of CABG S/P CABG X2 (DURING MVR) 2010 S/P AAA repair S/P ablation of atrial fibrillation S/P cholecystectomy S/P femoral-popliteal bypass surgery S/P MVR (mitral valve repair) S/P split thickness skin graft Status post transmetatarsal amputation of right foot Family History Mother Essential hypertension Father , age 76 Myocardial infarction Denies family history of Colon cancer Ovarian cancer Prostate cancer Breast cancer Social History Smoking Status: Never smoker Tobacco Type: Cigarettes Years Smoked: 5; Second Hand Exposure: No; Hx Alcohol Use: No Hx Substance Use: No Preferred Language: Slovenian Communication Ability: Effective Visual Impairment: No Limitations Hearing Ability: Normal Sound Editor Required: No Beliefs That Will Affect Care: None marital status: / marital status details: 1 daughter Current Living Situation: Prison Current Living Situation Comment: from [facility] transferred [facility] to [facility]. 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 No acute distress. Somewhat confused to details. Eyes: PERRL, conjunctivae normal, anicteric sclerae EOM intact bilaterally ENMT: external ear and nose normal, oropharynx normal Ears: no hearing impairment Neck: trachea midline, no thyromegaly Respiratory: normal respiratory effort; no respiratory distress and does not use accessory muscles Gastrointestinal (Abdomen): Soft. Mildly distended. Minimal diffuse tenderness. Ileostomy is pink and viable. There is a small amount of stool output. No guarding or rebound. Skin: no rashes, warm and dry Psychiatric: Orientation: alert, oriented x 3 and cooperative Results & Data ([facility]) Vital Signs (Past 12 Hours) Vital Signs Temp Pulse Pulse Resp BP Pulse Ox 02/08/22 07:34 37.0 C 81 20 185/71 H 99 02/08/22 07:29 81 02/08/22 03:10 36.6 C 81 18 122/66 92 02/07/22 23:10 36.6 C 76 18 137/67 100 PG Care Time/CCT Total # of Minutes Spent Total Time Spent with Patient: Total time spent is greater than 50% in coordination of care (as documented) at patient's floor/unit and/or counseling patient: Coding Level of Care Code 67360 Initial Inpt Care Lvl 3 Diagnoses SBO (small bowel obstruction) K56.609 Peripheral vascular disease I73.9 Atrial fibrillation I48.91 CAD (coronary artery disease) I25.10 Coronary Disease-Associated Artery/Lesion type: [place] artery [place] vs. transplanted heart: [place] heart Associated angina: without angina Chronic right-sided CHF (congestive heart failure) I50.812 COPD (chronic obstructive pulmonary disease) J44.9 ESRD (end stage renal disease) on dialysis N18.6; Z99.[address] Z93.2 Chronic respiratory failure with hypoxia J96.11 S/P CABG x 2 Z95.1 S/P MVR (mitral valve repair) Z98.890 S/P AAA repair Z98.890; Z86.79 (1) CAD (coronary artery disease) Coronary Disease-Associated Artery/Lesion type: [place] artery [place] vs. transplanted heart: [place] heart Associated angina: without angina Qualified Code(s): I25.10 - Atherosclerotic heart disease of [place] coronary artery with out angina pectoris
[2022-02-08] MEDS: NEPHROCAPS PO SCH (11:56)
[2022-02-08] MEDS: PANTOprazole 40 MG in SYRINGE 0 ML IV SCH (12:08)
[2022-02-08] MEDS: FLUTICASONE/VILANTEROL 200/25MCG 14 PUFFS/INHALER INH SCH (12:08)
[2022-02-08] MEDS ORDERED: AMIODARONE 200 MG TAB PO SCH (12:45)
--- NOTE | 2022-02-08 14:22 | Nephrology Progress Note ---
Date of Service February 08, 2022 Assessment & Plan (1) ESRD (end stage renal disease) on dialysis: Plan: . 1. End-stage renal disease:MWF - He was dialysed on 02/07 with 2 lit UF - oK with fluid bolus of max 1 lit / 24 hr if becomes hypotensive. - Next HD will be on Thursday. Will aim for UF @ 1lit. (2) SBO (small bowel obstruction): Plan: -As evidenced on CT A/P, at/above site of ostomy. -Raised wbc and lactate -NG tube placed in ED -N.p.o. for now. -Poor surgical candidate per surgery, only for conservative measures. . Admission and Anticipated Discharge Date Admission Date: February 07, 2022 Subjective Looks cachetic and in pain Significant NG fluis Looks Volume depleted Review of Systems Review of Systems: All systems reviewed & are unremarkable except as noted in Subjective Physical Exam Physical Exam: GENERAL:Appears chronically ill appearing. He is awake, alert, oriented x3, but somnolent HEENT: Mucous membrane is moist. NECK: Supple. No jugular venous distention. CHEST: Bilateral decreased breath sound. Poor inspiratory effort limiting qual ity of the exam, bilateral occasional rhonchi. CARDIOVASCULAR: S1 and S2 regular. Soft systolic murmur heard. ABDOMEN: Soft, nontender. EXTREMITIES: Show no edema, wrinkled skin secondary to lack of edema now, multiple skin sores. NEUROLOGIC: Normal speech. Moving all 4 extremities Results & Data ([facility]) Vital Signs (Past 12 Hours) Vital Signs Temp Pulse Pulse Resp BP Pulse Ox 02/08/22 11:29 36.9 C 79 16 131/69 95 02/08/22 07:34 37.0 C 81 20 185/71 H 99 02/08/22 07:29 81 02/08/22 03:10 36.6 C 81 18 122/66 92 Laboratory Results 02/08/22 06:36 02/08/22 06:36
[2022-02-08 16:25] LABS: Hematocrit (blood only) 33.7 % (42-52)
[2022-02-08] MEDS ORDERED: CALCIUM ACETATE 667 MG CAP/TAB PO SCH (17:00)
[2022-02-08] MEDS: ONDANSETRON INJ 2 MG/ML 2 ML VIAL IV PRN ×2 (19:35→20:45)
--- NOTE | 2022-02-08 20:53 | Hospitalist Progress Note ---
Date of Service February 08, 2022 Assessment & Plan (1) Small bowel obstruction: Plan: NG tube is in place. CT a/p appears to show that the transition point/obstruction is distal near the level of the ileostomy. I consulted gen surg and Dr Sow saw in consult - appreciate his recs. KUB x-ray in am. anti-emetics prn. unfortunately, due to ESRD on HD status, cannot give large amounts of fluid. adding low-rate D10W, however, for hypoglycemia. (2) ESRD (end stage renal disease) on dialysis: Plan: appreciate [facility] nephrology consultation. Dr Pena following. HD Thursday/Thursday/Thursday. BMP am. (3) Chronic right-sided CHF (congestive heart failure): Plan: No evidence of decompensation. He is not on beta maxim therapy or other disease-modifying agents. (4) COPD (chronic obstructive pulmonary disease): Plan: Continue usual inhalers. Continue NC O2. Stable, no exacerbation. (5) CAD (coronary artery disease): Plan: s/p CABG in the past. Resume ASA/Plavix once NG tube is out. Resume statin as well at that time. (6) Atrial fibrillation: Plan: Fortunately the 1/2 life of amiodarone is very, very long therefore holding it a day or two won't be detrimental. Remains in NSR. He is not on chronic anticoagulation. (7) Peripheral vascular disease: Plan: Cont local wound care for ulcerations b/l feet/legs. Resume asa/plavix/statin once NG tube is out. 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 (9) Hypothyroidism: Plan: Resume levothyroxine 88 mcg daily once NG tube is out. If he has prolonged NPO state then give IV at 1/2 usual dose. Last TSH was wnl December 2021. (10) Anemia, chronic renal failure: Plan: H/H remain acceptable even despite #16. CBC am. (11) Insomnia: Plan: If he has prolonged NPO state will need to change temazepam to IV ativan low- dose to prevent withdrawal from benzos. (12) Radicular leg pain: Plan: Resume Lyrica 75 mg daily once taking PO again. (13) Chronic steroid use: Plan: Records indicate he was initiated on steroids several months ago for his back. [facility] records show he was on dexamethasone 4mg daily. Presumably was weaned to 3mg daily at some point. While NPO, and for stress purposes, will increase to 10mg IV daily. (14) Acute metabolic encephalopathy: Plan: 2nd to #1. Supportive care. He has cognitive impairment - probably due to vascular disease - at baseline. (15) Chronic respiratory failure with hypoxia: Plan: on home O2 - stable (16) Discoloration of skin of flank resembling ecchymosis: Plan: severe ecchymoses of L flank c/w L flank hematoma due to heparin SC injections? other? CT a/p at admission did not show retroperitoneal bleed H/H remarkably are stable CBC in am low threshold to re-image if any worsening Plan: left message for pt's sister this evening Admission and Anticipated Discharge Date Admission Date: February 07, 2022 Subjective pt "feels terrible" ongoing abdominal pain in the lower abdomen NG tube remains in place with ongoing borderline bilious drainage no vomiting is passing some stool via ostomy denies any dyspnea was confused during the visit tele overnight wnl Review of Systems Review of Systems: gen - no fevers CV - no cp, no orthopnea pulm - no dyspnea GI - bloating, abd pain Physical Exam Physical Exam: gen - looks acutely and chronically unwell/sickly, mildly confused mouth - MM slightly dry neck - no JVD heart - RRR, s1 s2, 2/6 FIDELIA LSB lungs - CTA b/l abd - distended, BS+, ileostomy with brown stool in bag, mildly tender lower quadrants, multiple abdominal wall scars ext - trace edema, pulses 1+ b/l feet skin - scattered ulcerations on toes of L foot; right foot heel ulceration without drainage; stasis changes b/l legs; left flank with significant ecchymoses and bruising/swelling but NONTENDER to palpation Results & Data Results & Data ([facility]) Vital Signs (Past 12 Hours) Vital Signs Temp Pulse Pulse Resp BP Pulse Ox 02/08/22 19:24 36.6 C 75 20 152/77 H 99 02/08/22 15:26 37.1 C 72 20 136/70 93 02/08/22 15:23 80 02/08/22 11:29 36.9 C 79 16 131/69 95 Laboratory Results Laboratory Results - last 24 hr 02/07/22 02/08/22 02/08/22 21:20 06:36 06:36 WBC 12.68 H RBC 3.18 L Hgb 10.8 L Hct 32.8 L MCV 103.1 H MCH 34.0 MCHC 32.9 RDW Std Deviation 59.5 H RDW Coeff of Jolanta 15.6 H Plt Count 138 MPV 9.4 Immature Gran % (Auto) 2.8 Neut % (Auto) 73.9 Lymph % (Auto) 6.3 [place] % (Auto) 15.7 Eos % (Auto) 0.8 Baso % (Auto) 0.5 Neut # (Auto) 9.37 H Lymph # (Auto) 0.80 L [place] # (Auto) 1.99 H Eos # (Auto) 0.10 Baso # (Auto) 0.06 Immature Gran # (Auto) 0.36 H Sodium 138 Potassium 5.1 Chloride 92 L Carbon Dioxide 30 Anion Gap 16 H BUN 53 H Creatinine 6.42 H* D Est Cr Clr Drug Dosing 12.7 Est GFR ( Amer) 8.9 Est GFR (Non-Af Amer) 7.7 BUN/Creatinine Ratio 8.3 L Glucose 65 L Calcium 8.8 Phosphorus 7.1 H Magnesium 1.8 Nasal Screen MRSA (PCR) Negative 02/08/22 16:12 WBC RBC Hgb 11.0 L Hct 33.7 L MCV MCH MCHC RDW Std Deviation RDW Coeff of Jolanta Plt Count MPV Immature Gran % (Auto) Neut % (Auto) Lymph % (Auto) [place] % (Auto) Eos % (Auto) Baso % (Auto) Neut # (Auto) Lymph # (Auto) [place] # (Auto) Eos # (Auto) Baso # (Auto) Immature Gran # (Auto) Sodium Potassium Chloride Carbon Dioxide Anion Gap BUN Creatinine Est Cr Clr Drug Dosing Est GFR ( Amer) Est GFR (Non-Af Amer) BUN/Creatinine Ratio Glucose Calcium Phosphorus Magnesium Nasal Screen MRSA (PCR) PG Care Time/CCT Total # of Minutes Spent Total Time Spent with Patient: Total time spent is greater than 50% in coordination of care (as documented) at patient's floor/unit and/or counseling patient: Coding Level of Care Code 81580 Subseq Hosp Care Lvl 3 Diagnoses Small bowel obstruction K56.609 ESRD (end stage renal disease) on dialysis N18.6; Z99.2 Chronic right-sided CHF (congestive heart failure) I50.812 COPD (chronic obstructive pulmonary disease) J44.9 CAD (coronary artery disease) I25.10 Associated angina: without angina Coronary Disease-Associated Artery/Lesion type: [place] artery [place] vs. transplanted heart: [place] heart Atrial fibrillation I48.91 Peripheral vascular disease I73.[address] Z93.2 Hypothyroidism E03.9 Anemia, chronic renal failure N18.9; D63.1 Chronic kidney disease stage: unspecified stage Insomnia G47.00 Radicular leg pain M54.10 Chronic steroid use Acute metabolic encephalopathy G93.41 Chronic respiratory failure with hypoxia J96.11 Discoloration of skin of flank resembling ecchymosis L81.9 (1) Anemia, chronic renal failure Chronic kidney disease stage: unspecified stage Qualified Code(s): N18.9 - Chronic kidney disease, unspecified; D63.1 - Anemia in chronic kidney disease (2) CAD (coronary artery disease) Associated angina: without angina Coronary Disease-Associated Artery/Lesion type: [place] artery [place] vs. transplanted heart: [place] heart Qualified Code(s): I25.10 - Atherosclerotic heart disease of [place] coronary artery without angina pectoris
[2022-02-08] MEDS ORDERED: DEXTROSE 10% 1,000 ML IV SCH (21:00)
[2022-02-08] MEDS ORDERED: DOCUSATE SODIUM 100 MG CAP PO SCH (21:00)
[2022-02-08] MEDS: rOPINIRole HCL 0.25 MG TABLET PO SCH (21:08)
[2022-02-08] MEDS: LEVOTHYROXINE SODIUM 88 MCG TABLET PO SCH (21:08)
[2022-02-08] MEDS: ATORVASTATIN 40 MG TAB PO SCH (21:08)
--- NOTE | 2022-02-09 02:31 | Communication Note ---
Date of Service: February 09, 2022 Messaged about worsened nausea/dry heaving as well as abd distention and discomfort. Examined patient at bedside. He appears uncomfortable and has emesis bag held to face. His abd is moderately distended. No peritoneal signs, but he has mild discomfort to light palpation. Per nursing, there has been ostomy output this week. NG output 100ml this shift on low intermittent suction. Ordering stat KUB. Reviewed KUB. No perforation. Deferring management to day team.
[2022-02-09] MEDS: ONDANSETRON INJ 2 MG/ML 2 ML VIAL IV PRN ×2 (03:54→10:50)
[2022-02-09 06:56] LABS: Basophils # (auto) 0.03 K/uL (0-0.2); Basophils % (auto) 0.2 %; Hematocrit (blood only) 36.3 % (42-52); Hemoglobin 12.1 g/dL (14.0-18.0); Immature Granulocytes # (auto) 0.26 K/uL (0.00-0.02); Immature Granulocytes % (auto) 1.7 %; Lymphocytes # (auto) 1.07 K/uL (1.2-3.4); Lymphocytes % (auto) 6.9 %; Mean Corpuscular Hemoglobin 33.5 pg (25-34); Mean Corpuscular Hgb Conc 33.3 g/dL (32-36); Mean Corpuscular Volume 100.6 fL (80-100); Mean Platelet Volume 9.7 fL (7.4-10.4); Monocytes % (auto) 6.5 %; Neutrophils % (auto) 84.7 %; Platelet Count 173 K/uL (130-400); RDW Coefficient of Variation 15.4 % (11.5-14.5); RDW Standard Deviation 56.5 fL (36.4-46.3); Red Blood Count 3.61 M/uL (4.7-6.1); White Blood Count 15.46 K/uL (4.8-10.8)
[2022-02-09 07:26] LABS: Calcium 9.1 mg/dl (8.5-10.1); Creatinine Clr Calc Pharmacy 9.8 ml/min; Est GFR (African American) 6.6 ml/min; Est GFR (Non-African American) 5.7 ml/min
--- NOTE | 2022-02-09 07:54 | XRay Report ---
XR KUB/Abdomen 1 view CLINICAL HISTORY: SBO. COMPARISON STUDY: CT abdomen and pelvis from 02/07/2022 TECHNIQUE: Single view of the abdomen. FINDINGS: There is mild gaseous distention of multiple loops of small bowel with paucity of air and fecal mater ial within the colon. The presence of a partial small bowel obstruction cannot be excluded based on t his study. Differential includes an ileus as well. There is no evidence for organomegaly or gross int ra-abdominal mass. No abnormal calcifications are seen along the course of the urinary tracts bilater ally. No acute osseous pathology. IMPRESSION: 1. Mildly dilated air-filled loops of small bowel with differential diagnosis including an ileus vers us early partial small bowel obstruction. ACT 112: Negative or not required by law. Electronically signed by: Aydin Fine M.D. 02/09/2022 7:53 AM
[2022-02-09] MEDS: PREGABALIN 75 MG CAP PO SCH (07:59)
[2022-02-09] MEDS: CINACALCET HCL 30 MG TAB PO SCH (07:59)
[2022-02-09] MEDS: CLOPIDOGREL BISULFATE 75 MG TAB PO SCH (07:59)
[2022-02-09] MEDS: ASPIRIN 81 MG ECTAB PO SCH (07:59)
[2022-02-09] MEDS: UMECLIDINIUM BROMIDE 62.5MCG/BLISTER 7 PUFFS/INHALER INH SCH (08:27)
[2022-02-09] MEDS: dexAMETHasone 10 MG in SYRINGE 0 ML IV SCH (08:27)
--- NOTE | 2022-02-09 09:02 | Surgery Progress Note ---
Date of Service February 09, 2022 Assessment & Plan (1) SBO (small bowel obstruction): Plan: KUB repeat with some dilated small bowel loops but improved from his admission imaging. His ileostomy is now functioning. I would continue with ice chips only until we see how he does over the next 24 hours before advancing diet since he did have some emesis this morning. With his comorbidities he would not be a surgical candidate for this facility however currently no acute or urgent surgical interventions indicated. (2) Chronic steroid use: (3) CAD (coronary artery disease): (4) Chronic right-sided CHF (congestive heart failure): (5) COPD (chronic obstructive pulmonary disease): (6) ESRD (end stage renal disease) on dialysis: Admission and Anticipated Discharge Date Admission Date: February 07, 2022 Subjective Patient seen. Somewhat confused. He is awake and alert. He states his abdomen feels "terrible" but is nonspecific in his complaints. He did pull his NG tube out this morning and had some emesis early this morning. The nurses were unable to get it back in. KUB repeat showed some dilated loops of small bowel but no definitive small bowel obstruction. He is now beginning to get formed stool out of his ileostomy which is new from yesterday. Physical Exam Physical Exam: Alert. No acute distress mildly labored breathing Abdomen is soft. Mild diffuse tenderness. No peritoneal signs. Ileostomy is now functioning with a moderate amount of formed stool in the bag. Results & Data ([facility]) Vital Signs (Past 12 Hours) Vital Signs Temp Pulse Pulse Resp BP Pulse Ox 02/09/22 08:51 81 02/09/22 07:32 37.1 C 114 H 20 147/78 H 85 L 02/09/22 02:30 36.7 C 83 20 145/86 H 99 02/08/22 23:00 36.3 C L 77 20 143/72 H 97 02/08/22 22:55 76 PG Care Time/CCT Total # of Minutes Spent Total Time Spent with Patient: Total time spent is greater than 50% in coordination of care (as documented) at patient's floor/unit and/or counseling patient: Coding Level of Care Code 30685 Subseq Hosp Care Lvl 3 Diagnoses SBO (small bowel obstruction) K56.609 Chronic steroid use CAD (coronary artery disease) I25.10 Coronary Disease-Associated Artery/Lesion type: [place] artery [place] vs. transplanted heart: [place] heart Associated angina: without angina Chronic right-sided CHF (congestive heart failure) I50.812 COPD (chronic obstructive pulmonary disease) J44.9 ESRD (end stage renal disease) on dialysis N18.6; Z99.2 (1) CAD (coronary artery disease) Coronary Disease-Associated Artery/Lesion type: [place] artery [place] vs. transplanted heart: [place] heart Associated angina: without angina Qualified Code(s): I25.10 - Atherosclerotic heart disease of [place] coronary artery without angina pectoris
[2022-02-09] MEDS: PANTOprazole 40 MG in SYRINGE 0 ML IV SCH (10:50)
[2022-02-09] MEDS: HYDROmorphone INJ 0.5 MG/0.5 ML SYR IV PRN ×2 (10:50→20:18)
[2022-02-09] MEDS: NEPHROCAPS PO SCH (10:50)
--- NOTE | 2022-02-09 10:55 | Nephrology Progress Note ---
Date of Service February 09, 2022 Assessment & Plan (1) ESRD (end stage renal disease) on dialysis: Plan: . 1. End-stage renal disease:MWF - He was dialysed on 02/07 with 2 lit UF -K raised to 6 .0 Today. - 2-1/2 hr HD for clerance only today , 2 k bath, no UF. - oK with fluid bolus of max 1 lit / 24 hr if becomes hypotensive. - HD again tmrw as per schedule. (2) SBO (small bowel obstruction): Plan: -As evidenced on CT A/P, at/above site of ostomy. -Raised wbc and lactate - Pulled NG tube. -N.p.o. for now. -Poor surgical candidate per surgery, only for conservative measures. . Admission and Anticipated Discharge Date Admission Date: February 07, 2022 Subjective C/o abdominal pain, " feels terrible" Abdominal distention better had started making stool in stoma bag. Review of Systems Review of Systems: All systems reviewed & are unremarkable except as noted in Subjective Physical Exam Physical Exam: GENERAL:Appears chronically ill appearing. He is awake, alert, oriented x3, but somnolent HEENT: Mucous membrane is dry. NECK: Supple. No jugular venous distention. CHEST: Bilateral decreased breath sound. Poor inspiratory effort limiting quality of the exam, bilateral occasional rhonchi. CARDIOVASCULAR: S1 and S2 regular. Soft systolic murmur heard. ABDOMEN: Soft, distended, generalized tenderness. stool in stoma bag. EXTREMITIES: Show no edema, wrinkled skin secondary to lack of edema now, multiple skin sores. NEUROLOGIC: Normal speech. Moving all 4 extremities Results & Data ([facility]) Vital Signs (Past 12 Hours) Vital Signs Temp Pulse Pulse Resp BP Pulse Ox 02/09/22 08:51 81 02/09/22 07:32 37.1 C 114 H 20 147/78 H 85 L 02/09/22 02:30 36.7 C 83 20 145/86 H 99 02/08/22 23:00 36.3 C L 77 20 143/72 H 97 02/08/22 22:55 76 Laboratory Results 02/09/22 06:36 02/09/22 06:36
[2022-02-09] MEDS: FLUTICASONE/VILANTEROL 200/25MCG 14 PUFFS/INHALER INH SCH (10:58)
--- NOTE | 2022-02-09 11:32 | Hospitalist Progress Note ---
Date of Service February 09, 2022 Assessment & Plan (1) Small bowel obstruction: Plan: Although he has passed some stool via his ileostomy he otherwise is clinically unchanged. Unfortunately his NG tube came out early this am; clearly it needed to be placed back. NG tube now back in good position and functioning well with copious output. Patient to be made 1:1 to prevent self-removal of the NG tube. I discussed his care with general surgery and nephrology. It is hoped that he can get through this with conservative measures as he is a very, very poor operative candidate given his numerous comorbidities. Given his volume contraction and prolonged NPO status will start D5NS at 50cc/hr. He is scheduled for another HD session tomorrow. Lactate to be checked with his next blood draw given the ongoing abdominal pain. KUB x-ray in am. (2) Hyperkalemia: Plan: 2nd to ESRD. I am also concerned that he has brewing acidosis and this will contribute to the high K as well. He could have some element of addisonian effect as he is on chronic steroids for his back (3mg daily of dexamethasone for ~2 months). Cannot use binding agents due to NPO status and bowel obstruction. Thus - * albuterol neb q4h * insulin 10u/D50 now * sodium bicarbonate 50meq IV x 1 now * repeat K about 1 hour following the above Continue stress dose steroids - dexamethasone 10mg IV daily. BMP am. (3) ESRD (end stage renal disease) on dialysis: Plan: [facility] Dr Pena following. HD Thursday/Thursday/Thursday. Received about an hour of HD today 2nd to his hyperkalemia but unfortunately his K has remained high - see above. BMP am. (4) Chronic right-sided CHF (congestive heart failure): Plan: No evidence of decompensation. He is not on beta maxim therapy or other disease-modifying agents. He is volume contracted. Fluids to be provided. (5) COPD (chronic obstructive pulmonary disease): Plan: Continue usual inhalers. Continue NC O2. Stable, no exacerbation. I believe his tachypnea is due to his abdominal distension crowding his chest/diaphragm and there could be a respiratory compensatory response to acidosis. Trend the lactates. Check a blood gas tonight if any clinical worsening. (6) CAD (coronary artery disease): Plan: s/p CABG in the past. Resume ASA/Plavix once NG tube is out. Resume statin as well at that time. (7) Atrial fibrillation: Plan: Fortunately the 1/2 life of amiodarone is very, very long therefore holding it a day or two won't be detrimental. Remains in NSR on monitor. He is not on chronic anticoagulation. (8) Peripheral vascular disease: Plan: Cont local wound care for ulcerations b/l feet/legs. Resume asa/plavix/statin once NG tube is out. (9) Ileostomy in place: Plan: Created April 2019 when he had ischemic colon with resulting subtotal colectomy. surgery by Dr Sj Restrepo at that time. (10) Hypothyroidism: Plan: Resume levothyroxine 88 mcg daily once NG tube is out. If he has prolonged NPO state then give IV at 1/2 usual dose. Last TSH was wnl December 2021. (11) Anemia, chronic renal failure: Plan: H/H remain acceptable even despite #16. CBC am. (12) Insomnia: Plan: If he has prolonged NPO state will need to change temazepam to IV ativan low- dose to prevent withdrawal from benzos. (13) Radicular leg pain: Plan: Hold lyrica. (14) Chronic steroid use: Plan: Records indicate he was initiated on steroids several months ago for his back. [facility] records show he was on dexamethasone 4mg daily. Presumably was weaned to 3mg daily at some point after his stay at [facility] in November. While NPO, and for stress purposes, will increase to 10mg IV daily. Continue such. (15) Acute metabolic encephalopathy: Plan: 2nd to #1. Cont Supportive care. He has cognitive impairment at baseline likely on the basis of vascular disease. (16) Chronic respiratory failure with hypoxia: Plan: on home O2 via NC he has had intermittent tachypnea today - see above (17) Discoloration of skin of flank resembling ecchymosis: Plan: severe ecchymoses of L flank c/w L flank hematoma due to heparin SC injections? a fall just prior to admission? other? CT a/p at admission did not show retroperitoneal bleed H/H have remarkably been stable CBC in am low threshold to re-image if any worsening fortunately his skin exam is unchanged relative to yesterday's exam Plan: left message for pt's sister on 02/08 02/09 - spoke with pt's daughter, Toshia -- [phone] extensive update given she asks that we contact her at any time if there is worsening of his status she otherwise plans to visit later this week (she lives out of town near [place]) total care time today 100 minutes - multiple bedside evaluations, multiple phone calls to consultants, discussion with daughter, management of hyperkalemia, etc of note - if he continues to worsen will need to address code status & goals of care given his NUMEROUS comorbidities Admission and Anticipated Discharge Date Admission Date: February 07, 2022 Subjective multiple visits to pt's bedside today first was early this am I had received notice from staff about 7am that he had pulled out his NG tube general surgery saw him shortly after that event - plan was to trial him without the NG during rounds he complained of abdominal pain complained of simply feeling poorly he had a "terrible" night he was confused during my first visit there was stool in his ostomy bag later in the morning the patient went for dialysis to the HD suite as his serum K was 6 this am on labs about 1/2 way through his 2.5 hour session he started to have vomiting a code purple was called due to the vomiting when I arrived to the bedside in the HD suite the vomiting had stopped; some of the emesis was bilious the dialysis nurse was getting ready to disconnect him from the dialyzer he c/o abdominal pain & dyspnea exam at that time - gen - looks unwell, mild tachypnea noted; bilious vomitus present on his gown mouth - MM dry heart - RRR, s1 s2 lungs - tachypnea, but CTA b/l abd - distended, BS+ - no change from my earlier exam after my exam I asked that the patient be transferred from [facility] to PCU upon arrival to his new room on PCU I gave order to have the NG tube placed back NG tube was successfully placed, and over a liter of gastric fluid was quickly obtained he looked more comfortable following NG tube placement KUB showed proper NG tube placement CXR did not show infiltrates I corresponded with both general surgery and nephrology regarding the events of the day Plan was to repeat his K level, give IV fluids due to dehydration, and cont the NG tube later in the afternoon his K level was found to be still at 6 gave orders for albuterol q4h; insulin/D50; IV bicarbonate lactate returned a short time later and was elevated to >4 spoke with pt's daughter, Toshia, this afternoon ([phone]) extensive update given to Toshia she lives near [place] she was tearful over the phone she asked that she be called any time with any clinical worsening we discussed the hope that his SBO would improve with conservative measures she understands that he is a very poor surgical candidate if he needed such Review of Systems Review of Systems: gen - fatigue, weak, anorexic; no fevers cv - no cp pulm - mild dyspnea intermittently today but no cough GI - nausea, emesis, abdominal pain, abdominal bloating Physical Exam Physical Exam: gen - again looks sick, confused, tachypnea noted but no retractions mouth - MM dry neck - no JVD heart - RRR, s1 s2, 2/6 FIDELIA LSB lungs - CTA b/l; tachypnea without other signs of increased work of breathing abd - distended (no change), BS+, ileostomy with brown stool in bag (small amount), tender lower quadrants, multiple abdominal wall scars ext - no edema, pulses 1+ b/l feet skin - scattered ulcerations on toes of L foot- unchanged;stasis changes b/l legs; left flank with significant ecchymoses and bruising/swelling but no changes from yesterday's exam psych - oriented to person, place but not time Results & Data Results & Data ([facility]) Vital Signs (Past 12 Hours) Vital Signs Temp Pulse Pulse Resp BP Pulse Ox 02/09/22 10:58 36.4 C L 87 19 111/69 90 02/09/22 08:51 81 02/09/22 07:32 37.1 C 114 H 20 147/78 H 85 L 02/09/22 02:30 36.7 C 83 20 145/86 H 99 Laboratory Results Laboratory Results - last 24 hr 02/08/22 02/08/22 02/09/22 16:12 20:54 00:06 WBC RBC Hgb 11.0 L Hct 33.7 L MCV MCH MCHC RDW Std Deviation RDW Coeff of Jolanta Plt Count MPV Immature Gran % (Auto) Neut % (Auto) Lymph % (Auto) [place] % (Auto) Eos % (Auto) Baso % (Auto) Neut # (Auto) Lymph # (Auto) [place] # (Auto) Eos # (Auto) Baso # (Auto) Immature Gran # (Auto) Sodium Potassium Chloride Carbon Dioxide Anion Gap BUN Creatinine Est Cr Clr Drug Dosing Est GFR ( Amer) Est GFR (Non-Af Amer) BUN/Creatinine Ratio Glucose POC Glucose 92 88 Calcium 02/09/22 02/09/22 02/09/22 06:05 06:36 06:36 WBC 15.46 H RBC 3.61 L Hgb 12.1 L Hct 36.3 L MCV 100.6 H MCH 33.5 MCHC 33.3 RDW Std Deviation 56.5 H RDW Coeff of Jolanta 15.4 H Plt Count 173 MPV 9.7 Immature Gran % (Auto) 1.7 Neut % (Auto) 84.7 Lymph % (Auto) 6.9 [place] % (Auto) 6.5 Eos % (Auto) 0.0 Baso % (Auto) 0.2 Neut # (Auto) 13.10 H Lymph # (Auto) 1.07 L [place] # (Auto) 1.00 H Eos # (Auto) 0.00 Baso # (Auto) 0.03 Immature Gran # (Auto) 0.26 H Sodium 136 Potassium 6.0 H Chloride 89 L Carbon Dioxide 25 Anion Gap 22 H BUN 83 H D Creatinine 8.26 H* D Est Cr Clr Drug Dosing 9.8 Est GFR ( Amer) 6.6 Est GFR (Non-Af Amer) 5.7 BUN/Creatinine Ratio 10.0 Glucose 140 H POC Glucose 97 Calcium 9.1 Diagnostic Findings Abdomen/Pelvis CT 02/07/22 09:03 CT SCAN OF THE ABDOMEN AND PELVIS WITHOUT IV CONTRAST CLINICAL HISTORY: Generalized abdominal pain. Nausea and vomiting. Diarrhea. COMPARISON STUDY: Abdominal CT dated 12/01/2021. MRI of the lumbar spine dated 12/01/2021. TECHNIQUE: CT scan of the abdomen and pelvis is performed from the lung bases to the proximal femora. Images are reviewed in the axial, sagittal, and coronal planes. IV contrast was not administered for this examination. Note that the examination was performed in suboptimal fashion without oral and IV contrast. A dose lowering technique was utilized adhering to the principles of ALARA. CT DOSE: 835.21 mGy.cm FINDINGS: Lung bases: The heart is markedly enlarged and without pericardial effusion. The patient is status post midline sternotomy and mitral valve surgery. The coronary arteries are densely calcified. The distal esophagus appears mildly thick-walled and fluid-filled. Dependent atelectasis/fibrosis is again seen at the right lung base. Milder scarring/atelectasis is seen in the left lung base. There is no airspace consolidation typical for pneumonia or pleural effusion. Scattered calcified granulomas are observed. Liver: The unenhanced liver is normal in size, contour, and attenuation. There is no intrahepatic biliary ductal dilatation. Gallbladder: Surgically absent noting clips in the gallbladder fossa. Spleen: Normal in size and attenuation. 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 Pancreas: There is evidence of choledocholithiasis. An 8 mm gallstone is seen within the common bile duct at the head of the pancreas on image #157. The unenhanced pancreas is mildly atrophic and grossly unremarkable. Adrenal glands: Unremarkable. Kidneys: The unenhanced kidneys are atrophic. There is moderate left hydroureteronephrosis. The left ureter is dilated to the level of the bladder with no obstructing stone or lesion identified. There is mild right hydroureteronephrosis. There are tiny nonobstructing renal calculi and/or renovascular calcifications. The kidneys or infiltrate by numerous simple and complex cysts. This is similar to previous. Abdominal vasculature: There is advanced atherosclerotic calcification of the abdominal aorta. An aortobiiliac stent graft is in place. 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 A sigmoid stump is noted in the pelvis. There is a small parastomal hernia. The small bowel at/above the ostomy is distended and fecalized measuring up to 4.3 cm. The upstream small bowel appear distended and fluid-filled and the appearance is typical for obstruction. Peritoneum: There is trace free fluid in the right upper quadrant and the left lower quadrant.. No intraperitoneal free air is identified. Lymphadenopathy: None. Pelvic viscera: The prostate gland is enlarged and heterogeneous noting median lobe hypertrophy. The bladder wall is thickened and trabeculated indicating chronic outlet obstruction. Tiny bladder diverticula are noted. There are bilateral fat-containing groin hernias. Skeletal structures: The skeletal structures are heterogeneously osteopenic. There is a chronic compression deformity of L2. Advanced lumbosacral spondylosis is observed. Findings of chronic discitis/osteomyelitis are again seen at L4-L5. There is significant central canal stenosis at this level. No lytic or blastic lesions are seen. There are healed bilateral rib fractures. IMPRESSION: 1. 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 2. The small bowel at/above the ostomy is distended and fecalized with evidence of small bowel obstruction. The site of obstruction is likely at the ostomy itself, and this could related to stricture or fecal impaction. Clinical correlation will be required. 3. No focally thick walled bowel loops are identified. No intraperitoneal free air is seen. Trace free fluid is noted in the abdomen and pelvis. 4. There is choledocholithiasis with an 8 mm gallstone within the distal common bile duct at the head of the pancreas. This is similar to prior studies. 5. Findings of chronic discitis/osteomyelitis at L4-L5 is similar to previous. 6. There is moderate left and mild right hydroureteronephrosis. Both ureters are dilated to the level of the bladder and this is likely related to bladder outlet obstruction. 7. Marked cardiomegaly. 8. The appearance of the kidneys suggests autosomal dominant polycystic kidney disease. 9. Additional findings as above. ACT 112: Negative or not required by law. Electronically signed by: aWlker Ellis M.D. 02/07/2022 10:26 AM Chest X-Ray 02/07/22 09:04 SINGLE VIEW CHEST CLINICAL HISTORY: Generalized abdominal pain. FINDINGS: An AP, portable, upright chest radiograph is compared to study dated 12/04/2021 and correlated with chest CT dated 05/31/2021. The patient is status post midline sternotomy and cardiac valve surgery. The heart is enlarged noting atherosclerotic calcification of the thoracic aorta. Chronic interstitial thickening is similar to previous. There is bibasilar scarring/atelectasis. No airspace consolidation typical for pneumonia or large pleural effusion is identified. No pneumothorax is seen. The skeletal structures are osteopenic. The bony thorax is grossly intact. IMPRESSION: Cardiomegaly with no acute cardiopulmonary abnormality. ACT 112: Negative or not required by law. Electronically signed by: Walker Ellis M.D. 02/07/2022 11:44 AM Chest X-Ray 02/07/22 12:46 XR chest 1V portable CLINICAL HISTORY: confirm NG tube placement TECHNIQUE: Single frontal radiograph of the chest was obtained. Comparison: Comparison is made to chest one view 02/07/2022 FINDINGS: Median sternotomy wires are unchanged. An enteric tube side-port lies below the diaphragm. Cardiomegaly is noted. The lungs are clear. No evidence of pleural effusion or pneumothorax. IMPRESSION: 1. Satisfactory appearance of enteric tube. 2. Cardiomegaly is again seen. ACT 112: Negative or not required by law. Electronically signed by: Deepak Horan M.D. 02/07/2022 1:35 PM KUB X-Ray 02/09/22 02:28 XR KUB/Abdomen 1 view CLINICAL HISTORY: SBO. COMPARISON STUDY: CT abdomen and pelvis from 02/07/2022 TECHNIQUE: Single view of the abdomen. FINDINGS: There is mild gaseous distention of multiple loops of small bowel with paucity of air and fecal material within the colon. The presence of a partial small bowel obstruction cannot be excluded based on this study. Differential includes an ileus as well. There is no evidence for organomegaly or gross intra-abdominal mass. No abnormal calcifications are seen along the course of the urinary tracts bilaterally. No acute osseous pathology. IMPRESSION: 1. Mildly dilated air-filled loops of small bowel with differential diagnosis including an ileus versus early partial small bowel obstruction. ACT 112: Negative or not required by law. Electronically signed by: Aydin Fine M.D. 02/09/2022 7:53 AM Chest X-Ray 02/09/22 14:42 XR chest 1V portable, XR KUB/Abdomen 1 view HISTORY: 76 years-old Male dyspnea, SBO, eval infiltrates acute shortness of b reath with reported small bowel obstruction COMPARISON: Chest radiograph and CT abdomen and pelvis 02/07/2022 TECHNIQUE: AP view of the chest with KUB radiograph FINDINGS: CHEST: Trace pleural effusions. Cardiomegaly with prior median sternotomy. Atherosclerosis of the aorta. There is improved pulmonary vascular congestion. Mild persistent bibasilar opacities. There is no pneumothorax. Degenerative changes of the shoulders and spine. KUB: Enteric tube is redemonstrated with distal tip projected over the stomach. Aortobiiliac stent graft. Bilateral renal vascular calcifications. Persistent small bowel dilation. The lower abdomen is excluded from the [id number]. IMPRESSION: 1. Cardiomegaly with mildly improved pulmonary edema. 2. Trace pleural effusions with mild persistent bibasilar opacities, likely representing atelectasis. 3. Persistent small bowel distention. The lower abdomen is excluded from the [id number]. 4. Enteric tube distal tip projects over the gastric fundus. ACT 112: Negative or not required by law. The above report was generated using voice recognition software. It may contain grammatical, syntax or spelling errors. Electronically signed by: King Ford M.D. 02/09/2022 3:09 PM KUB X-Ray 02/09/22 14:42 XR chest 1V portable, XR KUB/Abdomen 1 view HISTORY: 76 years-old Male dyspnea, SBO, eval infiltrates acute shortness of breath with reported small bowel obstruction COMPARISON: Chest radiograph and CT abdomen and pelvis 02/07/2022 TECHNIQUE: AP view of the chest with KUB radiograph FINDINGS: CHEST: Trace pleural effusions. Cardiomegaly with prior median sternotomy. Atherosclerosis of the aorta. There is improved pulmonary vascular congestion. Mild persistent bibasilar opacities. There is no pneumothorax. Degenerative changes of the shoulders and spine. KUB: Enteric tube is redemonstrated with distal tip projected over the stomach. Aortobiiliac stent graft. Bilateral renal vascular calcifications. Persistent small bowel dilation. The lower abdomen is excluded from the [id number]. IMPRESSION: 1. Cardiomegaly with mildly improved pulmonary edema. 2. Trace pleural effusions with mild persistent bibasilar opacities, likely representing atelectasis. 3. Persistent small bowel distention. The lower abdomen is excluded from the [id number]-[id number]. 4. Enteric tube distal tip projects over the gastric fundus. ACT 112: Negative or not required by law. The above report was generated using voice recognition software. It may contain grammatical, syntax or spelling errors. Electronically signed by: King Ford M.D. 02/09/2022 3:09 PM PG Care Time/CCT Total # of Minutes Spent Total Time Spent with Patient: Total time spent is greater than 50% in coordination of care (as documented) at patient's floor/unit and/or counseling patient: Prolonged Care Time Prolonged Care Time: Yes 100 Coding Level of Care Code 63355 Subseq Hosp Care Lvl 3 (25 - SIGNIFICANT, SEPARATELY IDENTIFIABLE ) Diagnoses Small bowel obstruction K56.609 ESRD (end stage renal disease) on dialysis N18.6; Z99.2 Chronic right-sided CHF (congestive heart failure) I50.812 COPD (chronic obstructive pulmonary disease) J44.9 CAD (coronary artery disease) I25.10 Associated angina: without angina Coronary Disease-Associated Artery/Lesion type: yocha dehe artery [place] vs. transplanted heart: yocha dehe heart Atrial fibrillation I48.91 Peripheral vascular disease I73.[address] Z93.2 Hypothyroidism E03.9 Anemia, chronic renal failure N18.9; D63.1 Chronic kidney disease stage: unspecified stage Insomnia G47.00 Radicular leg pain M54.10 Chronic steroid use Acute metabolic encephalopathy G93.41 Chronic respiratory failure with hypoxia J96.11 Discoloration of skin of flank resembling ecchymosis L81.9 Hyperkalemia E87.5 Additional Codes Prolonged Care Time - Prolonged Care Time: Yes ([id number]) Comment 100 minutes - prolonged care (1) Anemia, chronic renal failure Chronic kidney disease stage: unspecified stage Qualified Code(s): N18.9 - Chronic kidney disease, unspecified; D63.1 - Anemia in chronic kidney disease (2) CAD (coronary artery disease) Associated angina: without angina Coronary Disease-Associated Artery/Lesion type: y[place] dehe artery [place] vs. transplanted heart: yocha dehe heart Qualified Code(s): I25.10 - Atherosclerotic heart disease of yocha dehe coronary artery without angina pectoris
[2022-02-09] MEDS ORDERED: D5W AND NSS 1,000 ML IV SCH (14:30)
--- NOTE | 2022-02-09 15:11 | XRay Report ---
XR chest 1V portable, XR KUB/Abdomen 1 view HISTORY: 76 years-old Male dyspnea, SBO, eval infiltrates acute shortness of breath with reported sm all bowel obstruction COMPARISON: Chest radiograph and CT abdomen and pelvis 02/07/2022 TECHNIQUE: AP view of the chest with KUB radiograph FINDINGS: CHEST: Trace pleural effusions. Cardiomegaly with prior median sternotomy. Atherosclerosis of the aorta. The re is improved pulmonary vascular congestion. Mild persistent bibasilar opacities. There is no pneumo thorax. Degenerative changes of the shoulders and spine. KUB: Enteric tube is redemonstrated with distal tip projected over the stomach. Aortobiiliac stent graft. Bilateral renal vascular calcifications. Persistent small bowel dilation. The lower abdomen is exclud ed from the [id number]-[id number]. IMPRESSION: 1. Cardiomegaly with mildly improved pulmonary edema. 2. Trace pleural effusions with mild persistent bibasilar opacities, likely representing atelectasis. 3. Persistent small bowel distention. The lower abdomen is excluded from the [id number]-[id number]. 4. Enteric tube distal tip projects over the gastric fundus. ACT 112: Negative or not required by law. The above report was generated using voice recognition software. It may contain grammatical, syntax o r spelling errors. Electronically signed by: King Ford M.D. 02/09/2022 3:09 PM
--- NOTE | 2022-02-09 15:11 | XRay Report ---
XR chest 1V portable, XR KUB/Abdomen 1 view HISTORY: 76 years-old Male dyspnea, SBO, eval infiltrates acute shortness of breath with reported sm all bowel obstruction COMPARISON: Chest radiograph and CT abdomen and pelvis 02/07/2022 TECHNIQUE: AP view of the chest with KUB radiograph FINDINGS: CHEST: Trace pleural effusions. Cardiomegaly with prior median sternotomy. Atherosclerosis of the aorta. The re is improved pulmonary vascular congestion. Mild persistent bibasilar opacities. There is no pneumo thorax. Degenerative changes of the shoulders and spine. KUB: Enteric tube is redemonstrated with distal tip projected over the stomach. Aortobiiliac stent graft. Bilateral renal vascular calcifications. Persistent small bowel dilation. The lower abdomen is exclud ed from the [id number]. IMPRESSION: 1. Cardiomegaly with mildly improved pulmonary edema. 2. Trace pleural effusions with mild persistent bibasilar opacities, likely representing atelectasis. 3. Persistent small bowel distention. The lower abdomen is excluded from the [id number]-pc-wwek. 4. Enteric tube distal tip projects over the gastric fundus. ACT 112: Negative or not required by law. The above report was generated using voice recognition software. It may contain grammatical, syntax o r spelling errors. Electronically signed by: King Ford M.D. 02/09/2022 3:09 PM
[2022-02-09] MEDS ORDERED: HYDROmorphone INJ 0.5 MG/0.5 ML SYR IV PRN (15:16)
[2022-02-09] MEDS ORDERED: DEXTROSE 50% 50 ML SYRINGE IV STA (17:34)
[2022-02-09] MEDS ORDERED: STAT IV STA (17:34)
[2022-02-09] MEDS ORDERED: INSULIN HUMAN REGULAR BOLUS IV ONE (17:45)
[2022-02-09] MEDS ORDERED: SODIUM BICARB 8.4% INJ 50 MEQ/50 ML SYR IV STA ×2 (17:58→21:01)
[2022-02-09] MEDS: ALBUT/IPRATROP 3MG/0.5MG NEB 3 ML VIAL NEB SCH ×3 (18:12→22:00)
[2022-02-09] MEDS: ATORVASTATIN 40 MG TAB PO SCH (21:21)
[2022-02-09] MEDS: rOPINIRole HCL 0.25 MG TABLET PO SCH (21:22)
[2022-02-09] MEDS: LEVOTHYROXINE SODIUM 88 MCG TABLET PO SCH (21:22)
[2022-02-09 22:22] LABS: iSTAT Allen Test Pass; iSTAT Art Bld Gas pCO2 Correct 23 mmHg (35-46); iSTAT Art Bld Gas pH Corrected 7.335 (7.35-7.45); iSTAT Arterial Blood Gas HCO3 12 meg/L (19-24); iSTAT Arterial Blood Gas pCO2 23 mmHg (35-46); iSTAT Arterial Blood Gas pH 7.34 (7.35-7.45); iSTAT Arterial Blood Gas pO2 117 mmHg (80-95); iSTAT Arterial Blood Gas pO2 C 117; iSTAT Carbon Dioxide 13 mmol/L (24-31); iSTAT Hematocrit 38 % (42-52); iSTAT Hemoglobin 12.9 g/dl (14.0-18.0); iSTAT Potassium 5.9 mmol/L (3.3-5.0); iSTAT Site L Radial; iSTAT Sodium 135 mmol/L (135-144)
[2022-02-09] MEDS ORDERED: SODIUM BICARB 8.4% INJ 50 MEQ/50 ML SYR IV ONE ×2 (23:43)
[2022-02-09] MEDS ORDERED: EPINEPHrine/NSS 4 MG/254 ML BAG IV SCH (23:45)
[2022-02-09] MEDS ORDERED: NovoLIN-R INSULIN PER UNIT CHARGE ONE (23:46)
--- NOTE | 2022-02-09 23:55 | Communication Note ---
Date of Service: February 09, 2022 76 y/o dialysis patient admitted for SBO. Nursing informed me that patient had BP of 57/42 at 1126. I called a code purple. At bedside, patient was nor responsive to sternal rub. Lungs anterior sounded rhonchorous w/o crackles. I ordered 1L bolus to be given. Dr. Russell, attending hospitalist and Schuyler Gonzalez from ICU arrived at bedside. The code was ran by Dr. Russell. Patient subsequently lost a pulse. CPR was started. Rapid sequence intubation was performed by ICU provided. Patient was given multiple rounds of epi. He was given bicarb, calcium gluconate, and Mg. Stat labs were drawn. Rosc was achieved. Patient to be transferred to ICU. I spoke w/ patient's sister Nidia. She reaffirms that full resuscitation measures should be performed. She will not be coming in in-person. Greg Sanchez PGY2 night resident.
[2022-02-09] MEDS ORDERED: STAT IV Infusion **Titration per Protocol STA (23:56)
--- NOTE | 2022-02-09 23:58 | Procedure Note ---
Procedure Note Date of Service February 09, 2022 Note APC: Schuyler Gonzalez PA-C. Attending: Dr. John Paul Amin time-out was completed verifying correct patient, procedure, site, positioning. Patient was evaluated and required intubation for respiratory failure in the setting of cardiac arrest. Sedative agent used: None Paralysis agent used: None Emergent consent was implied given patients rapidly declining clinical status and need for airway protection. The patient was prepared in the appropriate fashion. Sedation was not required in the setting of cardiac arrest. The patient was easily ventilated using [id number] to achieve adequate oxygenation. A 7.5 [place] endotracheal tube was placed under video laryngoscopy to 26 cm at the lip. The stylette was removed and balloon was inflated with 10mL of air. Appropriate Colorimetric change was appreciated. Bilateral breath sounds were heard without air sounds in the abdomen. Post Intubation Chest X-ray confirms placement without pneumothorax. Tube withdrawn 3 cm by RT at my direction. Patient tolerated the procedure well and there were no immediate complications. Coding CPT Codes Resuscitation - Resuscitation: 30467 Endotracheal Intubation, emergency ([id number]) [facility] [place] Procedure Codes (Charges) Resuscitation Resuscitation: 48980 Endotracheal Intubation, emergency
[2022-02-10] MEDS ORDERED: NOREPINEPHRINE/D5W 8 MG/508 ML IV ONE (00:28)
[2022-02-10 00:39] LABS: Hematocrit (blood only) 33.6 % (42-52); Hemoglobin 10.8 g/dL (14.0-18.0); Mean Corpuscular Hemoglobin 33.1 pg (25-34); Mean Corpuscular Volume 103.1 fL (80-100); Mean Platelet Volume 10.3 fL (7.4-10.4); Nucleated RBC # (auto) 0.14 K/uL (0-0); Platelet Count 153 K/uL (130-400); RDW Coefficient of Variation 15.5 % (11.5-14.5); RDW Standard Deviation 58.3 fL (36.4-46.3); Red Blood Count 3.26 M/uL (4.7-6.1); White Blood Count 13.64 K/uL (4.8-10.8)
[2022-02-10 01:03] LABS: ALC (manual) 2.88 K/uL (1.2-3.4); Lymphocytes # (manual) 2.88 K/uL (1.2-3.4); Lymphocytes % (manual) 21.1 %; Mean Corpuscular Hgb Conc 32.1 g/dL (32-36); Metamyelocytes # (manual) 1.55 K/uL (0-0); Metamyelocytes % (manual) 11.4 %; Monocytes # (manual) 0.48 K/uL (0.11-0.59); Monocytes % (manual) 3.5 %; Myelocytes # (manual) 1.43 K/uL (0-0); Myelocytes % (manual) 10.5 %; Neutrophils % (manual) 53.5 %
--- NOTE | 2022-02-10 01:21 | Procedure Note ---
Procedure Note Date of Service February 10, 2022 Note Procedure: Femoral Arterial Line Placement Attending: Dr. Coker APC: Schuyler Gonzalez PA-C Indication: Central Drug Administration, Poor Venous Access, Multiple Lab Draws Necessary, etc. Anesthesia: None Emergent consent implied in the setting of poor peripheral access and need for multiple laboratory draws, close hemodynamic monitoring as the patient is now on 2 vasopressors, etc. A time-out was completed verifying correct patient, procedure, site, positioning, and implants(s) or special equipment if applicable. Patients RIGHT Groin was cleansed and draped in the typical sterile fashion using Chloraprep. The Femoral Vein and Femoral Artery were identified using ultrasound. The Femoral Artery was cannulated under direct ultrasound guidance using an introducer needle on a syringe. Good arterial blood return was maintained prior to removal of syringe from introducer needle. Using Seldinger Technique, a guide wire was advanced through the introducer needle without resistance. The introducer needle was removed and ultrasound images were obtained of the guide wire within the Femoral Vein. Images were not obtained given acuity of procedure and need for immediate access. The 12 cm arterial line was passed over the wire without resistance. The guide wire was removed intact from the catheter without issue. Catheter was attached to the the line setup. Appropriate arterial wave forms were noted. Blood was drawn from the line and returned without issue. Arterial line was sutured in place. A sterile Tegaderm dressing was applied over the catheter with careful attention to sterility. Patient tolerated procedure well. No immediate complications were met. Images obtained are saved for permanent record Procedural Ultrasound Guidance: Procedure Date: 02/10/2022 Indication: Pressors, poor peripheral access, need for frequent lab draws. Attending: Dr. Coker APC: Schuyler Gonzalez PA-C Artery AND Vein visualized: YES Compressible Vein: YES Line confirmed in Vein with ultrasound: YES Images obtained are saved for permanent record. Coding CPT Codes Tubes, Drains, and Vasc Access - Tubes, Drains, and Vasc Access: [id number] Place Catheter In Artery ([id number]) Tubes, Drains, and Vasc Access - Tubes, Drains, and Vasc Access: [id number] Ultrasound Guidance For Vascular ([id number]) [facility] [place] (Charges) Tubes, Drains, and Vasc Access Procedure 1: Tubes, Drains, and Vasc Access: [id number] Place Catheter In Artery Procedure 2: Tubes, Drains, and Vasc Access: [id number] Ultrasound Guidance For Vascular
--- NOTE | 2022-02-10 01:22 | Critical Care Consultation ---
Date of Consultation February 10, 2022 Assessment & Plan (1) Admitted to intensive care unit: Reason Critically Ill: 76-year-old male who is status post cardiac arrest with ROSC transferred to the ICU for ongoing management. In short, the patient was admitted to this institution with a small bowel obstruction. Patient has a history of ileostomy tube in place. Additionally, the patient's history is complicated by end-stage renal disease on hemodialysis Thursday/Thursday/Thursday. Apparently, it is questionable if the patient received a full treatment of hemodialysis today secondary to hypotension. Additionally, the patient was noted to have increasing difficulty with his breathing and was placed on a BiPAP. Eventually, the patient did arrest. High-quality CPR and ACLS techniques were in place as I entered the room. Patient was emergently intubated. Code was ran for several minute and ROSC was achieved. Resident did speak with point of contact who is the patient's sister, Nidia. To this point, the patient to be full code. Patient transported to the ICU. Upon arrival, the patient did have loss of pulse again. Additional round of CPR and epinephrine was administered. Femoral arterial line was placed by myself. Please see separate note. Labs were obtained and ongoing close monitoring. Verbal consent for epinephrine and norepinephrine drips were given during the process of stabilizing patient. After patient achieved satisfactory blood pressures on 2 pressors, I did reach out to family member. Initially, I spoke to the patient's point of care, Nidia Perdue - Sister ([phone]) at 0037. Provided update and deterioration. She confirms that the patient should be a DNR/DNI. An additional conversation, she feels as though her brother would not wish to continue to undergo current treatment. She is comfortable with transition the patient to comfort measures only. I did ask if she was listed as the patient's power of commercial attorney. She reports that she has made decisions for him in recent years, however there is no official paperwork in place. In conversation and with review of chart, it was noted the patient does have a daughter with whom primary service had been in contact with recently as well. I do feel that it would be beneficial and safer for him still contact the patient's daughter as well for agreement of proceeding prior to terminal extubation and transition to comfort measures. Patient's daughter, Toshia Perdue ([phone]), was contacted at 0050. There was no answer and message was left. We did continue with ongoing care while waiting for return call from patient's daughter. 0126: Patient's daughter, Toshia, did return call. Provided update to daughter. She was appropriately grief stricken. She was in agreement with her aunt to withdraw care and proceed with compassionate extubation and comfort measures only. 0137: Patient was compassionately extubated by respiratory therapy. Vasopressors were discontinued. Patient ceased to breathe and was without a pulse at 0149. 0153: Did reach out to patient's sister, Nidia, to provide update of patient's passing. She requests [facility] in [place], [place]. 0156: Spoke with patient's daughter, Toshia. Provided update that her father had . I have personally spent 90 minutes of critical care time in the direct management of this patient. This is a life/limb threatening event. This includes time spent evaluating patient, direct bedside care, chart review, placing orders, interpretation of diagnostic studies, discussion with consultants, patient, and family members, as well as other required patient management activities. This time is exclusive of all separately billable procedures, and teaching time and separate from and in addition to any other critical care service time. Thank you for allowing us to participate in the care of this patient. Please refer to my attending physician's documentation for any further recommendations. (2) Cardiac arrest: (3) Hyperkalemia: (4) SBO (small bowel obstruction): (5) Acute hyperkalemia: (6) ESRD (end stage renal disease) on dialysis: History of Present Illness Attending Physician: Tan Chacon History of Present Illness Patient was a CODE PURPLE in room 219. As it was arriving at bedside with airway materials, chest compressions were initiated. Patient was actively being bagged by respiratory therapy. Patient was intubated by myself. Please see separate note. Patient received several rounds of high-quality CPR with multiple rounds of epinephrine, serum bicarbonate, calcium chloride, dextrose, insulin, etc. ROSC was achieved. Patient was transported to the ICU for ongoing management. Upon immediate arrival in the ICU, the patient had an additional loss of pulses necessitating another round of CPR with another amp of epinephrine and bicarb pushes. Patient unable to contribute to HPI. Allergies Allergy/AdvReac Type Severity Reaction Status Date / Time oxycodone AdvReac Severe DELIRIUM Verified 02/07/22 09:44 tramadol AdvReac Severe dizziness;a Verified 02/07/22 09:44 nxiety;sob gabapentin AdvReac Intermediate Nausea Verified 02/07/22 09:44 Home Medications Medication Instructions Recorded Confirmed Type calcium acetate(phosphat bind) 667 667 mg PO TIDM 08/23/18 02/07/22 History mg capsule docusate sodium 100 mg capsule 100 mg PO BID 05/31/19 02/07/22 History aspirin 81 mg tablet,delayed 81 mg PO QDL 05/01/20 02/07/22 History release (Aspirin Low Dose) atorvastatin 40 mg tablet 40 mg PO HS #90 tab 11/13/20 02/07/22 Rx lidocaine 4 % topical patch 1 patch TOPICAL DAILY 04/08/21 02/07/22 History (Aspercreme (lidocaine)) nitroglycerin 0.4 mg sublingual 0.4 mg SUBLINGUAL DIRECTED PRN 04/08/21 02/07/22 History tablet (Nitrostat) ropinirole 0.25 mg tablet 0.25 mg PO HS 04/08/21 02/07/22 History acetaminophen 325 mg capsule 650 mg PO QID PRN #30 cap 04/13/21 02/07/22 Rx clopidogrel 75 mg tablet 75 mg PO QDL 05/31/21 02/07/22 History pantoprazole 40 mg tablet,delayed 40 mg PO QAM #90 tab 07/11/21 02/07/22 Rx release pregabalin 75 mg capsule (Lyrica) 75 mg PO QAM #30 cap 10/15/21 02/07/22 Rx amiodarone 200 mg tablet 200 mg PO Q OTHER DAY 02/07/22 02/07/22 History calcium carb-Ca gluc 500 mg 1 tab PO QAM 02/07/22 02/07/22 History calcium-magnesium ox-Mg gluc 250 mg tablet (Calcium Magnesium) cinacalcet 30 mg tablet (Sensipar) 30 mg PO QAM 02/07/22 02/07/22 History dexamethasone 1 mg tablet 3 mg PO QAM 02/07/22 02/07/22 History fluticasone furoate 200 1 inh INHALATION DAILY@1200 02/07/22 02/07/22 History mcg-vilanterol 25 mcg/dose inhalation powder (Breo Ellipta) hydrocodone 10 mg-acetaminophen 1 tab PO 3XWK 02/07/22 02/07/22 History 325 mg tablet ipratropium 20 mcg-albuterol 100 1 puff INHALATION Q6H PRN 02/07/22 02/07/22 History mcg/actuation mist for inhalation (Combivent Respimat) levothyroxine 88 mcg tablet 88 mcg PO HS 02/07/22 02/07/22 History menthol 4 % topical gel (Biofreeze 1 applic TOPICAL 6XD 02/07/22 02/07/22 History (menthol)) temazepam 15 mg capsule 30 mg PO HS PRN 02/07/22 02/07/22 History tiotropium bromide 18 mcg capsule 1 cap INHALATION QDL 02/07/22 02/07/22 History with inhalation device (Spiriva with HandiHaler) vitamin B complex and vitamin C 1 cap PO QDL 02/07/22 02/07/22 History no.20-folic acid 1 mg capsule Patient History Medical History AAA (abdominal aortic aneurysm) Acute pseudo-obstruction of bowel Anemia of chronic disease Anemia, chronic renal failure Anxiety AV fistula right arm CAD (coronary artery disease) Chronic back pain Chronic GERD Chronic right-sided CHF (congestive heart failure) Chronic ulcer of great toe of left foot with fat layer exposed COPD (chronic obstructive pulmonary disease) COPD (chronic obstructive pulmonary disease) CVA (cerebral vascular accident) "NO RESIDUAL EFFECTS" PER RECORDS Dependence on renal dialysis Depression Dermatitis Diastolic CHF DVT (deep venous thrombosis) Elevated troponin Encounter for central line placement Exertional dyspnea Fecal impaction GERD (gastroesophageal reflux disease) H/O: gout Hyperkalemia Hyperlipidemia Hypothyroidism Hypothyroidism Ileostomy in place Insomnia 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 (Dr Sj Restrepo) Memory loss or impairment Myocardial infarct, old 2010 Necrosis of colon Orthostatic hypotension Oxygen dependent Peripheral vascular disease Poor venous access Skin ulcers of both feet Small bowel obstruction Valvular disease S/P MVR (2010); ?AVR PER RECORDS Vitamin D deficiency Surgical History Difficult intubation B/L Anteriogram, Right femoral to anterior tibial cadaver vein bypass= 08/06/18= Grade view 4, MAC 3 --> Glidescope #3, ETT 7.5 at [facility] H/O abdominal aortic aneurysm repair 2011 H/O [id number] bypass 2012 H/O colectomy H/O mitral valve repair 2010; ?AVR PER RECORDS Hx of CABG S/P CABG X2 (DURING MVR) 2010 S/P AAA repair S/P ablation of atrial fibrillation S/P cholecystectomy S/P femoral-popliteal bypass surgery S/P MVR (mitral valve repair) S/P split thickness skin graft Status post transmetatarsal amputation of right foot Family History Mother Essential hypertension Father , age 76 Myocardial infarction Denies family history of Colon cancer Ovarian cancer Prostate cancer Breast cancer Social History Smoking Status: Never smoker Tobacco Type: Cigarettes Years Smoked: 5; Second Hand Exposure: No; Hx Alcohol Use: No Hx Substance Use: No Preferred Language: Mozambican Communication Ability: Effective Visual Impairment: No Limitations Hearing Ability: Normal Mold Maintenance Technician Required: No Beliefs That Will Affect Care: None marital status: / marital status details: 1 daughter Current Living Situation: [facility] Current Living Situation Comment: from [place] care transferred from [facility] to [facility]. 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 at Home: Yes Safety Concerns: Feels Safe At This Time Childhood Exposure to Second-Hand Smoke: No Dental Care, Regularly: Yes Physical Activity Frequency: Other Physical Activity Frequency Comment: Physical activity limited by patients medical conditions Seatbelt Use: always Sunscreen Use: Yes Assistive Devices: Glasses, Oxygen - Continuous and Walker Review of Systems Review of Systems: Unobtainable due to cognitive status and Unobtainable due to endotracheal tube Physical Exam Constitutional: + acute distress and + mechanically ventilated Eyes: + fixed pupils ENMT: NGT in place Neck: trachea midline, no thyromegaly Respiratory: Auscultation: + diminished lung sounds Cardiovascular: Rate/Rhythm: + tachycardic Chest (Breasts): Chest: normal inspection of chest Gastrointestinal (Abdomen): Inspection/Auscultation: + hypoactive bowel sounds ostomy in place Skin: RUE Fistual Neurologic: + obtunded Cranial Nerves: + no PERRL Comatose Patient: + corneal reflex absent; response to noxious stimuli present Results & Data Results & Data ([facility]) Vital Signs (Past 12 Hours) Vital Signs Temp Pulse Pulse Pulse Pulse Resp BP 02/09/22 22:45 83/57 L 02/09/22 22:10 30 H 90/59 L 02/09/22 22:00 92 H 33 H 02/09/22 21:50 92 H 33 H 02/09/22 19:28 36.4 C L 88 22 109/71 02/09/22 18:13 94 H 18 02/09/22 16:36 91 H 02/09/22 16:30 87 111/69 02/09/22 14:27 36.7 C 88 22 101/63 02/09/22 13:50 36.4 C L 91 H 129/71 Pulse Ox 02/09/22 22:45 02/09/22 22:10 98 02/09/22 22:00 100 02/09/22 21:50 100 02/09/22 19:28 96 02/09/22 18:13 90 02/09/22 16:36 02/09/22 16:30 02/09/22 14:27 91 02/09/22 13:50 Coding Level of Care Code Critical Care 1st 30-74 mins Diagnoses Admitted to intensive care unit Z78.9 Cardiac arrest I46.9 Hyperkalemia E87.5 SBO (small bowel obstruction) K56.609 Acute hyperkalemia E87.5 ESRD (end stage renal disease) on dialysis N18.6; Z99.2 Time Spent (min) 90
[2022-02-10 01:26] LABS: Alanine Aminotransferase > 2500 U/L (7-52); Albumin Level 2.2 gm/dl (3.4-5.0); Alkaline Phosphatase 89 U/L (34-104); Anion Gap 30 (3-11); Aspartate Aminotransferase 2173 U/L (13-39); BUN Creatinine Ratio 12.7 (10-20); Bilirubin Direct 0.5 mg/dl (0-0.2); Bilirubin,Total 0.8 mg/dl (0.2-1.0); Blood Urea Nitrogen 75 mg/dl (6-23); Calcium 15.6 mg/dl (8.5-10.1); Carbon Dioxide 27 mmol/L (21-32); Chloride 96 mmol/L (98-107); Creatinine Clr Calc Pharmacy 13.8 ml/min; Est GFR (African American) 9.9 ml/min; Est GFR (Non-African American) 8.5 ml/min; Glucose 159 mg/dl (70-99(Fasting)); Magnesium 3.1 mg/dl (1.7-2.4); Phosphorus 10.9 mg/dl (2.5-4.9); Potassium 4.4 mmol/L (3.5-5.1); Sodium 153 mmol/L (136-145); Total Protein 4.1 gm/dl (6.0-8.3)
[2022-02-10] MEDS ORDERED: ONDANSETRON 4 MG OD TAB SL PRN (01:32)
[2022-02-10] MEDS ORDERED: LORazepam 0.5 MG TAB PO PRN (01:32)
[2022-02-10] MEDS ORDERED: ONDANSETRON INJ 2 MG/ML 2 ML VIAL IV PRN (01:32)
[2022-02-10] MEDS ORDERED: MoRPHine SULFATE 2 MG/ML CARP IV PRN (01:32)
[2022-02-10] MEDS ORDERED: LORazepam 2 MG/1 ML VIAL IV PRN (01:32)
[2022-02-10] MEDS ORDERED: MoRPHine SULFATE 2 MG/ML CARP ONE (01:39)
[2022-02-10] MEDS ORDERED: LORazepam 2 MG/1 ML VIAL ONE (01:39)
--- NOTE | 2022-02-10 01:53 | Death Pronouncement Note ---
Date of Service February 10, 2022 Pronouncement Note Admission Date Admission Date: February 07, 2022 Date and Time of Date of : 02/10/22 Time of : 01:49 PCOD Preliminary cause of : Respiratory failure Contributing Factors (1) Small bowel obstruction: (2) Hyperkalemia: (3) ESRD (end stage renal disease) on dialysis: (4) Chronic right-sided CHF (congestive heart failure): (5) COPD (chronic obstructive pulmonary disease): (6) CAD (coronary artery disease): (7) Atrial fibrillation: (8) Peripheral vascular disease: (9) Ileostomy in place: (10) Hypothyroidism: (11) Anemia, chronic renal failure: (12) Insomnia: (13) Radicular leg pain: (14) Chronic steroid use: (15) Acute metabolic encephalopathy: (16) Chronic respiratory failure with hypoxia: (17) Discoloration of skin of flank resembling ecchymosis: Hospital Course Hospital Course: Patient admitted this institution on 02/07 with a small bowel obstruction. Patient with complicated past medical history including prior ileostomy, end- stage renal disease on hemodialysis, coronary artery disease, COPD, etc. Patient not felt to be surgical candidate secondary to multiple complicating factors. Patient had showed some improvement with his ileostomy output. Unfortunately, the patient had decline in his blood pressure during dialysis today. Patient was noted to be increasingly hyperkalemic. Patient with worsening shortness of breath complaints this evening. Eventually, the patient cardiac arrested just after midnight. ROSC was achieved x2, however family did make decision to proceed with compassionate extubation and comfort measures only. Patient at 0149. Additional Data Confirmation of : no pulse, no respirations, no heart sounds and pupils fixed and dilated Family: contacted Attending/PCP notified?: No Attending physician: Tan Chacon Was code activated?: No Autopsy requested?: No voucher examiner notified?: No Organ bank notified?: Yes Advance directives: No Coding Level of Care Code 09460 OBS Care - Discharge Diagnoses Small bowel obstruction K56.609 Hyperkalemia E87.5 ESRD (end stage renal disease) on dialysis N18.6; Z99.2 Chronic right-sided CHF (congestive heart failure) I50.812 COPD (chronic obstructive pulmonary disease) J44.9 CAD (coronary artery disease) I25.10 Associated angina: without angina Coronary Disease-Associated Artery/Lesion type: [place] artery [place] vs. transplanted heart: [place] heart Atrial fibrillation I48.91 Peripheral vascular disease I73.[address] Z93.2 Hypothyroidism E03.9 Anemia, chronic renal failure N18.9; D63.1 Chronic kidney disease stage: unspecified stage Insomnia G47.00 Radicular leg pain M54.10 Chronic steroid use Acute metabolic encephalopathy G93.41 Chronic respiratory failure with hypoxia J96.11 Discoloration of skin of flank resembling ecchymosis L81.9
--- NOTE | 2022-02-10 06:57 | XRay Report ---
XR chest 1V portable CLINICAL HISTORY: s/p tube COMPARISON STUDY: Chest radiograph January 30, 2022 at 9:29 PM. FINDINGS: Tip of endotracheal tube is 3.7 cm above the jovanna. There is rightward curvature of the ti p of the endotracheal tube. Right basilar opacities persist. Cardiomegaly is noted. There are median sternotomy wires and a prosthetic mitral valve. Cardiomegaly is unchanged. No evidence for pulmonary edema. There is slight blunting of both costophrenic angles. IMPRESSION: 1. Tip of endotracheal tube 3.7 cm above the jovanna. 2. Persistent mild right basilar opacities. 3. Cardiomegaly without evidence for pulmonary edema. ACT 112: Negative or not required by law. Electronically signed by: Frank Lombardo M.D. 02/10/2022 6:56 AM
--- NOTE | 2022-02-10 08:00 | XRay Report ---
XR chest 1V portable HISTORY: dyspnea. assess hypervolemia COMPARISON: Chest 02/09/2022. FINDINGS: Nasogastric tube terminates below the diaphragm. The tip is not included on this study. The re are poststernotomy changes and a mitral valve ring again noted. No pneumothorax. Small bilateral p leural effusions persist. This mild emphysema. There are patchy bibasilar densities, unchanged. The h eart remains enlarged. IMPRESSION: 1. A nasogastric tube terminates below the diaphragm. 2. Patchy bibasilar densities persist. 3. Emphysema. ACT 112: Negative or not required by law. Electronically signed by: Joey Leggett M.D. 02/10/2022 7:58 AM
--- NOTE | 2022-02-10 09:54 | Discharge Summary ---
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 Patient states he had developed diffuse abdominal pain on Thursday and has been vomiting 2-3x/day shortly after meals. His abdominal pain is crampy/bloating sensation and emesis is non-bloody. He has begun to develop some abdominal distention over the past day which is adding to his discomfort. He resides at [facility], staff manages his ostomy bag and he reports it had less output over the past several days, without obvious blood or dark stool in ostomy. He is otherwise without fever/chills, weakness, myalgias, chest pain/tightness, palpitations, SOB, cough, hematemesis, melena, hematochezia. He rate [facility] current abdominal pain 7.5/10. In ED, VSS and wnl. CT A/P showed that the small bowel at/above the ostomy is distended and fecalized with evidence of small bowel obstruction, no focally thick walled bowel loops are identified. No intraperitoneal free air is seen. Labs significant for K+ 6.0, phosphorus 7.3, mag 1.6. CXR with cardiomegaly, no evidence of acute cardiopulmonary disease. Principal Diagnosis 1. cardiac arrest 2nd to severe lactic acidosis 2. small bowel obstruction 3. likely ischemic bowel with resulting lactic acidosis 4. acute/chronic hypoxic respiratory failure - acute component 2nd to #1, #2, #3 Discharge Exam see note/pronouncement by Schuyler KEATING Discharge Data Allergies Allergy/AdvReac Type Severity Reaction Status Date / Time oxycodone AdvReac Severe DELIRIUM Verified 02/07/22 09:44 tramadol AdvReac Severe dizziness;a Verified 02/07/22 09:44 nxiety;sob gabapentin AdvReac Intermediate Nausea Verified 02/07/22 09:44 Consultations [facility] General Surgery Preflight Inspector Procedures Performed 1. intubation/mech ventilation 2. femoral central venous catheter placement 3. hemodialysis Ordered Studies Abdomen/Pelvis CT 02/07/22 09:03 CT SCAN OF THE ABDOMEN AND PELVIS WITHOUT IV CONTRAST CLINICAL HISTORY: Generalized abdominal pain. Nausea and vomiting. Diarrhea. COMPARISON STUDY: Abdominal CT dated 12/01/2021. MRI of the lumbar spine dated 12/01/2021. TECHNIQUE: CT scan of the abdomen and pelvis is performed from the lung bases to the proximal femora. Images are reviewed in the axial, sagittal, and coronal planes. IV contrast was not administered for this examination. Note that the examination was performed in suboptimal fashion without oral and IV contrast. A dose lowering technique was utilized adhering to the principles of ALARA. CT DOSE: 835.21 mGy.cm FINDINGS: Lung bases: The heart is markedly enlarged and without pericardial effusion. The patient is status post midline sternotomy and mitral valve surgery. The coronary arteries are densely calcified. The distal esophagus appears mildly thick-walled and fluid-filled. Dependent atelectasis/fibrosis is again seen at the right lung base. Milder scarring/atelectasis is seen in the left lung base. There is no airspace consolidation typical for pneumonia or pleural effusion. Scattered calcified granulomas are observed. Liver: The unenhanced liver is normal in size, contour, and attenuation. There is no intrahepatic biliary ductal dilatation. Gallbladder: Surgically absent noting clips in the gallbladder fossa. Spleen: Normal in size and attenuation. 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 Pancreas: There is evidence of choledocholithiasis. An 8 mm gallstone is seen within the common bile duct at the head of the pancreas on image #157. The unenhanced pancreas is mildly atrophic and grossly unremarkable. Adrenal glands: Unremarkable. Kidneys: The unenhanced kidneys are atrophic. There is moderate left hydroureteronephrosis. The left ureter is dilated to the level of the bladder with no obstructing stone or lesion identified. There is mild right hydroureteronephrosis. There are tiny nonobstructing renal calculi and/or renovascular calcifications. The kidneys or infiltrate by numerous simple and complex cysts. This is similar to previous. Abdominal vasculature: There is advanced atherosclerotic calcification of the abdominal aorta. An aortobiiliac stent graft is in place. 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 A sigmoid stump is noted in the pelvis. There is a small parastomal hernia. The small bowel at/above the ostomy is distended and fecalized measuring up to 4.3 cm. The upstream small bowel appear distended and fluid-filled and the appearance is typical for obstruction. Peritoneum: There is trace free fluid in the right upper quadrant and the left lower quadrant.. No intraperitoneal free air is identified. Lymphadenopathy: None. Pelvic viscera: The prostate gland is enlarged and heterogeneous noting median lobe hypertrophy. The bladder wall is thickened and trabeculated indicating chronic outlet obstruction. Tiny bladder diverticula are noted. There are bilateral fat-containing groin hernias. Skeletal structures: The skeletal structures are heterogeneously osteopenic. There is a chronic compression deformity of L2. Advanced lumbosacral spondylosis is observed. Findings of chronic discitis/osteomyelitis are again seen at L4-L5. There is significant central canal stenosis at this level. No lytic or blastic lesions are seen. There are healed bilateral rib fractures. IMPRESSION: 1. 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 2. The small bowel at/above the ostomy is distended and fecalized with evidence of small bowel obstruction. The site of obstruction is likely at the ostomy itself, and this could related to stricture or fecal impaction. Clinical correlation will be required. 3. No focally thick walled bowel loops are identified. No intraperitoneal free air is seen. Trace free fluid is noted in the abdomen and pelvis. 4. There is choledocholithiasis with an 8 mm gallstone within the distal common bile duct at the head of the pancreas. This is similar to prior studies. 5. Findings of chronic discitis/osteomyelitis at L4-L5 is similar to previous. 6. There is moderate left and mild right hydroureteronephrosis. Both ureters are dilated to the level of the bladder and this is likely related to bladder outlet obstruction. 7. Marked cardiomegaly. 8. The appearance of the kidneys suggests autosomal dominant polycystic kidney disease. 9. Additional findings as above. ACT 112: Negative or not required by law. Electronically signed by: Walker Ellis M.D. 02/07/2022 10:26 AM Chest X-Ray 02/07/22 09:04 SINGLE VIEW CHEST CLINICAL HISTORY: Generalized abdominal pain. FINDINGS: An AP, portable, upright chest radiograph is compared to study dated 12/04/2021 and correlated with chest CT dated 05/31/2021. The patient is status post midline sternotomy and cardiac valve surgery. The heart is enlarged noting atherosclerotic calcification of the thoracic aorta. Chronic interstitial thickening is similar to previous. There is bibasilar scarring/atelectasis. No airspace consolidation typical for pneumonia or large pleural effusion is identified. No pneumothorax is seen. The skeletal structures are osteopenic. The bony thorax is grossly intact. IMPRESSION: Cardiomegaly with no acute cardiopulmonary abnormality. ACT 112: Negative or not required by law. Electronically signed by: Walker Ellis M.D. 02/07/2022 11:44 AM Chest X-Ray 02/07/22 12:46 XR chest 1V portable CLINICAL HISTORY: confirm NG tube placement TECHNIQUE: Single frontal radiograph of the chest was obtained. Comparison: Comparison is made to chest one view 02/07/2022 FINDINGS: Median sternotomy wires are unchanged. An enteric tube side-port lies below the diaphragm. Cardiomegaly is noted. The lungs are clear. No evidence of pleural effusion or pneumothorax. IMPRESSION: 1. Satisfactory appearance of enteric tube. 2. Cardiomegaly is again seen. ACT 112: Negative or not required by law. Electronically signed by: Deepak Horan M.D. 02/07/2022 1:35 PM KUB X-Ray 02/09/22 02:28 XR KUB/Abdomen 1 view CLINICAL HISTORY: SBO. COMPARISON STUDY: CT abdomen and pelvis from 02/07/2022 TECHNIQUE: Single view of the abdomen. FINDINGS: There is mild gaseous distention of multiple loops of small bowel with paucity of air and fecal material within the colon. The presence of a partial small bowel obstruction cannot be excluded based on this study. Differential includes an ileus as well. There is no evidence for organomegaly or gross intra-abdominal mass. No abnormal calcifications are seen along the course of the urinary tracts bilaterally. No acute osseous pathology. IMPRESSION: 1. Mildly dilated air-filled loops of small bowel with differential diagnosis including an ileus versus early partial small bowel obstruction. ACT 112: Negative or not required by law. Electronically signed by: Aydin Fine M.D. 02/09/2022 7:53 AM Chest X-Ray 02/09/22 14:42 XR chest 1V portable, XR KUB/Abdomen 1 view HISTORY: 76 years-old Male dyspnea, SBO, eval infiltrates acute shortness of breath with reported small bowel obstruction COMPARISON: Chest radiograph and CT abdomen and pelvis 02/07/2022 TECHNIQUE: AP view of the chest with KUB radiograph FINDINGS: CHEST: Trace pleural effusions. Cardiomegaly with prior median sternotomy. Atherosclerosis of the aorta. There is improved pulmonary vascular congestion. Mild persistent bibasilar opacities. There is no pneumothorax. Degenerative changes of the shoulders and spine. KUB: Enteric tube is redemonstrated with distal tip projected over the stomach. Aortobiiliac stent graft. Bilateral renal vascular calcifications. Persistent small bowel dilation. The lower abdomen is excluded from the [id number]. IMPRESSION: 1. Cardiomegaly with mildly improved pulmonary edema. 2. Trace pleural effusions with mild persistent bibasilar opacities, likely representing atelectasis. 3. Persistent small bowel distention. The lower abdomen is excluded from the [id number]. 4. Enteric tube distal tip projects over the gastric fundus. ACT 112: Negative or not required by law. The above report was generated using voice recognition software. It may contain grammatical, syntax or spelling errors. Electronically signed by: King Ford M.D. 02/09/2022 3:09 PM KUB X-Ray 02/09/22 14:42 XR chest 1V portable, XR KUB/Abdomen 1 view HISTORY: 76 years-old Male dyspnea, SBO, eval infiltrates acute shortness of breath with reported small bowel obstruction COMPARISON: Chest radiograph and CT abdomen and pelvis 02/07/2022 TECHNIQUE: AP view of the chest with KUB radiograph FINDINGS: CHEST: Trace pleural effusions. Cardiomegaly with prior median sternotomy. Atherosclerosis of the aorta. There is improved pulmonary vascular congestion. Mild persistent bibasilar opacities. There is no pneumothorax. Degenerative changes of the shoulders and spine. KUB: Enteric tube is redemonstrated with distal tip projected over the stomach. Aortobiiliac stent graft. Bilateral renal vascular calcifications. Persistent small bowel dilation. The lower abdomen is excluded from the [id number]-lo-jusl. IMPRESSION: 1. Cardiomegaly with mildly improved pulmonary edema. 2. Trace pleural effusions with mild persistent bibasilar opacities, likely representing atelectasis. 3. Persistent small bowel distention. The lower abdomen is excluded from the [id number]. 4. Enteric tube distal tip projects over the gastric fundus. ACT 112: Negative or not required by law. The above report was generated using voice recognition software. It may contain grammatical, syntax or spelling errors. Electronically signed by: King Ford M.D. 02/09/2022 3:09 PM Chest X-Ray 02/09/22 21:37 XR chest 1V portable HISTORY: dyspnea. assess hypervolemia COMPARISON: Chest 02/09/2022. FINDINGS: Nasogastric tube terminates below the diaphragm. The tip is not included on this study. There are poststernotomy changes and a mitral valve ring again noted. No pneumothorax. Small bilateral pleural effusions persist. This mild emphysema. There are patchy bibasilar densities, unchanged. The heart remains enlarged. IMPRESSION: 1. A nasogastric tube terminates below the diaphragm. 2. Patchy bibasilar densities persist. 3. Emphysema. ACT 112: Negative or not required by law. Electronically signed by: Joey Leggett M.D. 02/10/2022 7:58 AM Chest X-Ray 02/09/22 23:51 XR chest 1V portable CLINICAL HISTORY: s/p tube COMPARISON STUDY: Chest radiograph January 30, 2022 at 9:29 PM. FINDINGS: Tip of endotracheal tube is 3.7 cm above the jovanna. There is rightward curvature of the tip of the endotracheal tube. Right basilar opacities persist. Cardiomegaly is noted. There are median sternotomy wires and a prosthetic mitral valve. Cardiomegaly is unchanged. No evidence for pulmonary edema. There is slight blunting of both costophrenic angles. IMPRESSION: 1. Tip of endotracheal tube 3.7 cm above the jovanna. 2. Persistent mild right basilar opacities. 3. Cardiomegaly without evidence for pulmonary edema. ACT 112: Negative or not required by law. Electronically signed by: Frank Lombardo M.D. 02/10/2022 6:56 AM Hospital Course (1) Small bowel obstruction: The patient was admitted with small bowel obstruction in the setting of a chronic ileostomy. He had the ileostomy created in 2019 when he had a subtotal colectomy by Dr Sj Restrepo due to ischemic colitis. There was no discrete transition point for his presenting SBO. Rather, the admission CT abd/pelvis appeared to show that the obstruction was in the tract leading to the last portion of his ileostomy. He had an NG tube placed in the ER and was admitted to the telemetry unit. He was seen by general surgery shortly after admission and conservative measures were advised including ongoing use of NG tube decompression, bowel rest, and very gentle IV fluids (in light of ESRD and chronic right-sided CHF). On the AM of 02/09 the patient self-removed his NG tube. However, he was starting to pass stool and flatus via the ileostomy. Since it appeared that perhaps the SBO was beginning to improve attempts were ma de to leave the NG tube out. A few hours later, however - while receiving dialysis in the dialysis unit - the patient began to have copious bilious emesis. He had hypotension at that time as well. A code purple was called. Dialysis was terminated early due to the hypotension, code purple, and bilious emesis. Once dialysis was stopped the patient's blood pressure improved. Rather than allowing him to remain on med-tele he was transferred from [facility] to the PCU due to his worsening status. Upon transfer to the PCU the NG tube was reinserted. Within minutes well over 1000cc of gastric fluid was removed via NG tube. Unfortunately, despite NG tube reinsertion, the patient worsened on 02/09. On the afternoon of 02/09 labs showed the beginning of mild lactic acidosis and persistent hyperkalemia. He received sodium bicarbonate, albuterol, calcium IV, and insulin/D50 for the hyperkalemia. Despite all of the above measures his hyperkalemia continued. Lactic acidosis also worsened. On the evening of 02/09 his respiratory status deteriorated and the patient was placed on BIPAP. The acute/chronic hypoxic respiratory failure was likely due to escalating lactic acidosis. This was then followed by cardiopulmonary arrest. ROSC was achieved by the code team/ICU team. The patient was intubated/placed on the vent and a central line was placed upon transfer to the ICU. These events occurred late on 02/09 and early in the AM on 02/10. Discussions were held with the patient's family (daughter - Toshia; sister - Nidia). After these discussions his family felt that proceeding with comfort care measures would be best given Mr Perdue's frail health status and numerous comorbidities. Therefore, compassionate extubation took place shortly after 0130, and Mr Perdue passed peacefully at 0149. (2) Cardiac arrest: likely 2nd to severe lactic acidosis (3) Lactic acidosis: (4) Ischemia, bowel: possible/presumed cause of #3 above (5) Hyperkalemia: (6) ESRD (end stage renal disease) on dialysis: previously followed by [facility] (7) Chronic right-sided CHF (congestive heart failure): (8) COPD (chronic obstructive pulmonary disease): was on home O2 chronically (9) CAD (coronary artery disease): s/p CABG in the past. (10) Atrial fibrillation: Was in NSR at time of admission and throughout his stay until his cardiac arrest. (11) Peripheral vascular disease: With long-standing wounds on his toes b/l feet. (12) Ileostomy in place: Created April 2019 when he had ischemic colon with resulting subtotal colectomy. Surgery by Dr Sj Restrepo at that time. (13) Hypothyroidism: (14) Anemia, chronic renal failure: (15) Insomnia: (16) Radicular leg pain: (17) Chronic steroid use: Records indicate he was initiated on steroids several months ago for his back. [facility] records show he was on dexamethasone 4mg daily. Presumably was weaned to 3mg daily at some point after his stay at [facility] in November. Received stress dose steroids during this hospitalization. (18) Acute metabolic encephalopathy: (19) Chronic respiratory failure with hypoxia: on home O2 via [place] Developed acute/chronic hypoxic respiratory failure later in the stay when he had worsening lactic acidosis. (20) Discoloration of skin of flank resembling ecchymosis: severe ecchymoses was noted of the left flank c/w Left flank hematoma early in the stay due to a fall just prior to admission? other? CT a/p at admission did not show retroperitoneal bleed H/H remained stable during the hospitalization Total Time Total Time Spent Total Time Spent (In Minutes): 15 Discharge Plan Discharge Items Patient Disposition: Other Date/Time: 02/10/22 01:49 Coding Level of Care Code None Diagnoses Small bowel obstruction K56.609 Hyperkalemia E87.5 ESRD (end stage renal disease) on dialysis N18.6; Z99.2 Chronic right-sided CHF (congestive heart failure) I50.812 COPD (chronic obstructive pulmonary disease) J44.9 CAD (coronary artery disease) I25.10 Associated angina: without angina Coronary Disease-Associated Artery/Lesion type: [place] artery [place] vs. transplanted heart: [place] heart Atrial fibrillation I48.91 Peripheral vascular disease I73.[address] Z93.2 Hypothyroidism E03.9 Anemia, chronic renal failure N18.9; D63.1 Chronic kidney disease stage: unspecified stage Insomnia G47.00 Radicular leg pain M54.10 Chronic steroid use Acute metabolic encephalopathy G93.41 Chronic respiratory failure with hypoxia J96.11 Discoloration of skin of flank resembling ecchymosis L81.9 Cardiac arrest I46.9 Lactic acidosis E87.2 Ischemia, bowel K55.9
[2022-02-10 11:54] LABS: iSTAT Arterial Blood Gas HCO3 42 meg/L (19-24); iSTAT Arterial Blood Gas pCO2 65 mmHg (35-46); iSTAT Arterial Blood Gas pH 7.42 (7.35-7.45); iSTAT Arterial Blood Gas pO2 316 mmHg (80-95); iSTAT Carbon Dioxide 44 mmol/L (24-31); iSTAT Hematocrit 30 % (42-52); iSTAT Hemoglobin 10.2 g/dl (14.0-18.0); iSTAT Potassium 6.4 mmol/L (3.3-5.0); iSTAT Sodium 149 mmol/L (135-144)
[2022-02-10 11:58] LABS: iSTAT Potassium 4.2 mmol/L (3.3-5.0); iSTAT Sodium 145 mmol/L (135-144)
[2022-02-10 11:59] LABS: iSTAT Arterial Blood Gas HCO3 29 meg/L (19-24); iSTAT Arterial Blood Gas pCO2 52 mmHg (35-46); iSTAT Arterial Blood Gas pH 7.36 (7.35-7.45); iSTAT Arterial Blood Gas pO2 433 mmHg (80-95); iSTAT Carbon Dioxide 31 mmol/L (24-31); iSTAT Hematocrit 28 % (42-52); iSTAT Hemoglobin 9.5 g/dl (14.0-18.0)
--- NOTE | 2022-02-10 14:00 | Electrocardiogram Report ---
Test Reason : Blood Pressure : / mmHG Vent. Rate : 087 BPM Atrial Rate : 087 BPM P-R Int : 224 ms QRS Dur : 100 ms QT Int : 408 ms P-R-T Axes : 035 082 -49 degrees QTc Int : 490 ms Sinus rhythm with 1st degree A-V block with occasional Premature ventricular complexes and Premature atrial complexes Nonspecific ST and T wave abnormality Prolonged QT Abnormal ECG When compared with ECG of 07-FEB-2022 08:53, Premature ventricular complexes are now Present Premature atrial complexes are now Present T wave inversion more evident in Inferior leads Nonspecific T wave abnormality now evident in Anterolateral leads Confirmed by Brian Calderon ([id number]) on 02/10/2022 2:00:07 PM Referred By: [facility] Confirmed By:Randall Calderon
== END 2022-02-10 01:00 | disposition expired | DRG 388 ==
LOC: ED 08:42 → SUATTDRO 12:46 → 2N 12:46 → 2S 02-09 14:13 → 1E 02-10 00:08
DX: E87.5 Hyperkalemia; Z87.891 Personal history of nicotine dependence; K56.609 Unspecified intestinal obstruction, unspecified as to partial versus complete obstruction; I25.2 Old myocardial infarction; F41.9 Anxiety disorder, unspecified; I50.32 Chronic diastolic (congestive) heart failure; Z95.1 Presence of aortocoronary bypass graft; Z93.2 Ileostomy status; G47.00 Insomnia, unspecified; Z79.52 Long term (current) use of systemic steroids; G93.41 Metabolic encephalopathy; N18.6 End stage renal disease; Z89.431 Acquired absence of right foot; Z79.82 Long term (current) use of aspirin; J44.9 Chronic obstructive pulmonary disease, unspecified; J96.11 Chronic respiratory failure with hypoxia; Z99.3 Dependence on wheelchair; I50.812 Chronic right heart failure; K21.9 Gastro-esophageal reflux disease without esophagitis; Z88.5 Allergy status to narcotic agent; I46.9 Cardiac arrest, cause unspecified; Z90.49 Acquired absence of other specified parts of digestive tract; Z95.820 Peripheral vascular angioplasty status with implants and grafts; F32.A Depression, unspecified; I25.10 Atherosclerotic heart disease of native coronary artery without angina pectoris; G89.29 Other chronic pain; D63.1 Anemia in chronic kidney disease; E03.9 Hypothyroidism, unspecified; Z79.890 Hormone replacement therapy; I73.9 Peripheral vascular disease, unspecified; Z88.8 Allergy status to other drugs, medicaments and biological substances; Z99.2 Dependence on renal dialysis; Z86.718 Personal history of other venous thrombosis and embolism